=== PATIENT | female | born 1950 | race Caucasian/White ===

== ENCOUNTER → 2018-01-24 07:42 | Outpatient (CLI) | payer MEDICARE, SELFPAY ==
[2018-01-24 11:49] LABS: Absolute Lymphocyte Count 1.14 X10^3/ul (0.83-4.51); Absolute Neutrophil Count 2.4 X10^3/uL (2.0-7.7); Basophil# 0.03 X10^3/uL; Basophil% 0.7 % (0-1); Eosinophil# 0.22 X10^3/uL; Eosinophils% 5.2 % (0-5); Hematocrit 37.4 % (37-47); Lymphocyte # 1.14 X10^3/ul (4.0); Lymphocyte % 26.8 % (19-41); Mean Corp Hgb Conc 32.1 g/gl (32-36); Mean Corpuscular Hgb 29.1 pg (27.0-32.0); Mean Corpuscular Volume 90.8 fL (81-99); Monocyte# 0.42 X10^3/uL; Monocyte% 9.9 % (0-10); Neutrophil # 2.44 X10^3/uL (2.7-7.7); Neutrophil % 57.4 % (47-70); Platelet Count 193 K/mm3 (150-450); RBC Distribution Width CV 14.4 % (11.6-14.6); RBC Distribution Width SD 47.2 fl (35.1-43.9); Red Blood Count 4.12 M/mm3 (4.2-5.4); White Blood Count 4.3 K/mm3 (4.4-11.0)
[2018-01-24 11:51] LABS: POSITIVE COUNT NO; POSITIVE DIFFERENTIAL NO; POSITIVE MORPHOLOGY NO
[2018-01-24 12:04] LABS: AST(SGOT) 25 U/L (15-37); Alanine Aminotransfer ALT/SGPT 22 U/L (13-56); Albumin, Serum 3.4 g/dL (3.2-5.0); Alkaline Phosphatase 68 U/L (45-117); Anion Gap 8 (5-15); BUN 19 mg/dL (7-18); BUN/Creat Ratio 27.8 RATIO (10-20); Calcium,Total 9.2 mg/dL (8.5-10.1); Chloride 103 mmol/L (98-107); Cholesterol 197 mg/dL (200); Creatinine, Serum 0.68 mg/dL (0.55-1.02); EST Glomerular Filtration Rate 91 mL/min (>60); Est Glom Filt Rate - Afr Amer 110 mL/min (>60); Globulin 3.5 g/dL (2.2-4.2); Glucose 85 mg/dL (74-106); High Density Lipoprotein 79 mg/dL; Potassium 3.8 mmol/L (3.5-5.1); Protein, Total 6.9 g/dL (6.4-8.2); Sodium Level 142 mmol/L (136-145); T4 Free Direct 1.13 ng/dL (0.76-1.46); Thyroid Stim Hormone (TSH) 2.33 uIU/mL (0.358-3.74); Triglycerides 47 mg/dL; Very Low Density Lipoprotein 9 mg/dL (5-40)
[2018-01-24 12:06] LABS: Microalbumin,Random Urine 5.6 mg/L (NO RANGE EST.); Microalbumin:Creatinine Ratio 41.7 mg/g CRE (<30 mg/g CRE)
== END ==
PROVIDERS: Family Provider Family Medicine; PCP Family Medicine; Visit Provider Family Medicine
DX: I10 Essential (primary) hypertension (principal); M06.00 Rheumatoid arthritis without rheumatoid factor, unspecified site; M15.9 Polyosteoarthritis, unspecified; M50.30 Other cervical disc degeneration, unspecified cervical region
CPT/HCPCS: 36415; 80053; 80061; 82043; 82570; 84439; 84443; 85025

== ENCOUNTER → 2018-03-02 08:16 | Outpatient (CLI) | payer MEDICARE, SELFPAY | PROVIDERS: Family Provider Family Medicine; PCP Family Medicine; Visit Provider Obstetrics & Gynecology | DX: Z12.31 Encounter for screening mammogram for malignant neoplasm of breast (principal) | CPT/HCPCS: 77063; 77067 ==

== ENCOUNTER → 2018-05-24 09:25 | Outpatient (CLI) | payer MEDICARE, SELFPAY ==
[2018-05-24 12:04] LABS: Absolute Lymphocyte Count 1.22 X10^3/ul (0.83-4.51); Absolute Neutrophil Count 3.3 X10^3/uL (2.0-7.7); Basophil# 0.03 X10^3/uL; Basophil% 0.6 % (0-1); Eosinophil# 0.16 X10^3/uL; Hematocrit 41.7 % (37-47); Hemoglobin 13.1 g/dl (12.0-15.0); Lymphocyte # 1.22 X10^3/ul (4.0); Lymphocyte % 23.2 % (19-41); Mean Corp Hgb Conc 31.4 g/gl (32-36); Mean Corpuscular Volume 92.3 fL (81-99); Mean Platelet Vol. 11.2 fl (6.2-12.0); Monocyte# 0.55 X10^3/uL; Monocyte% 10.5 % (0-10); Neutrophil % 62.7 % (47-70); POSITIVE COUNT NO; POSITIVE DIFFERENTIAL NO; POSITIVE MORPHOLOGY NO; Platelet Count 210 K/mm3 (150-450); RBC Distribution Width CV 13.1 % (11.6-14.6); RBC Distribution Width SD 43.6 fl (35.1-43.9); Red Blood Count 4.52 M/mm3 (4.2-5.4); White Blood Count 5.3 K/mm3 (4.4-11.0)
[2018-05-24 12:41] LABS: AST(SGOT) 23 U/L (15-37); Alanine Aminotransfer ALT/SGPT 26 U/L (13-56); Albumin, Serum 3.6 g/dL (3.2-5.0); Alkaline Phosphatase 71 U/L (45-117); Anion Gap 8 (5-15); BUN 28 mg/dL (7-18); BUN/Creat Ratio 34.2 RATIO (10-20); Calcium,Total 9.9 mg/dL (8.5-10.1); Chloride 99 mmol/L (98-107); Creatinine, Serum 0.82 mg/dL (0.55-1.02); EST Glomerular Filtration Rate 74 mL/min (>60); Est Glom Filt Rate - Afr Amer 90 mL/min (>60); Globulin 3.7 g/dL (2.2-4.2); Glucose 81 mg/dL (74-106); Potassium 3.9 mmol/L (3.5-5.1); Protein, Total 7.3 g/dL (6.4-8.2); Sodium Level 139 mmol/L (136-145)
== END ==
PROVIDERS: Family Provider Family Medicine; PCP Family Medicine; Referring Provider Internal Medicine Rheumatology; Visit Provider Internal Medicine Rheumatology
DX: M06.041 Rheumatoid arthritis without rheumatoid factor, right hand (principal); M50.30 Other cervical disc degeneration, unspecified cervical region; I10 Essential (primary) hypertension; M15.9 Polyosteoarthritis, unspecified
CPT/HCPCS: 36415; 80053; 85025

== ENCOUNTER → 2018-11-18 08:53 | Outpatient (CLI) | payer MEDICARE, SELFPAY ==
[2018-11-18 09:41] LABS: Absolute Lymphocyte Count 1.23 X10^3/ul (0.83-4.51); Absolute Neutrophil Count 2.8 X10^3/uL (2.0-7.7); Basophil# 0.03 X10^3/uL; Basophil% 0.6 % (0-1); Eosinophil# 0.19 X10^3/uL; Hematocrit 38.2 % (37-47); Hemoglobin 12.3 g/dl (12.0-15.0); Lymphocyte # 1.23 X10^3/ul (4.0); Lymphocyte % 26.2 % (19-41); Mean Corp Hgb Conc 32.2 g/gl (32-36); Mean Corpuscular Hgb 28.9 pg (27.0-32.0); Mean Corpuscular Volume 89.7 fL (81-99); Mean Platelet Vol. 11.5 fl (6.2-12.0); Monocyte# 0.49 X10^3/uL; Monocyte% 10.4 % (0-10); Neutrophil # 2.75 X10^3/uL (2.7-7.7); Neutrophil % 58.6 % (47-70); Platelet Count 188 K/mm3 (150-450); RBC Distribution Width CV 13.7 % (11.6-14.6); RBC Distribution Width SD 44.2 fl (35.1-43.9); Red Blood Count 4.26 M/mm3 (4.2-5.4); White Blood Count 4.7 K/mm3 (4.4-11.0)
[2018-11-18 09:42] LABS: POSITIVE COUNT NO; POSITIVE DIFFERENTIAL NO; POSITIVE MORPHOLOGY NO
[2018-11-18 09:50] LABS: ALB/GLOB Ratio 0.9 RATIO (0.9-2.4); AST(SGOT) 24 U/L (15-37); Alanine Aminotransfer ALT/SGPT 21 U/L (13-56); Albumin, Serum 3.4 g/dL (3.2-5.0); Alkaline Phosphatase 78 U/L (45-117); Anion Gap 6 (5-15); BUN 21 mg/dL (7-18); BUN/Creat Ratio 27.1 RATIO (10-20); Calcium,Total 9.6 mg/dL (8.5-10.1); Chloride 105 mmol/L (98-107); Creatinine, Serum 0.78 mg/dL (0.55-1.02); EST Glomerular Filtration Rate 79 mL/min (>60); Est Glom Filt Rate - Afr Amer 95 mL/min (>60); Globulin 3.6 g/dL (2.2-4.2); Glucose 77 mg/dL (74-106); Potassium 3.6 mmol/L (3.5-5.1); Sodium Level 141 mmol/L (136-145)
== END ==
PROVIDERS: Family Provider Family Medicine; PCP Family Medicine; Referring Provider Internal Medicine Rheumatology; Visit Provider Internal Medicine Rheumatology
DX: M06.041 Rheumatoid arthritis without rheumatoid factor, right hand (principal); M15.9 Polyosteoarthritis, unspecified; M50.30 Other cervical disc degeneration, unspecified cervical region; I10 Essential (primary) hypertension
CPT/HCPCS: 36415; 80053; 85025

== ENCOUNTER → 2019-03-08 08:27 | Outpatient (CLI) | payer MEDICARE, SELFPAY ==
--- NOTE | 2019-03-08 08:30 | BI_ITS ---
MAMMOGRAPHY - BILATERAL SCREENING REASON FOR EXAM: Female, 68 years old. Routine annual screening examination. PERTINENT HISTORY: Grandmother with breast cancer. Aunt with breast cancer. TECHNIQUE: Digital bilateral breast adelina (3D mammographic acquisition) in the CC and MLO projections. 2-D mediolateral oblique (MLO) and craniocaudad (CC) views of both breasts were obtained. CAD: Full Field Digital Mammography with Computer Added Detection was performed. COMPARISON: Comparison is made with prior study dated March 02, 2018 and March 01, 2017. FINDINGS: Breast Composition: The breasts are heterogeneously dense, which may obscure small masses. There are no dominant masses or suspicious calcifications. No other significant abnormalities are identified. There has been no significant change since the prior study. BI/SCREENING MAMM (CAD), BILAT IMPRESSION: Stable bilateral screening mammogram. Yearly follow-up mammogram recommended. (A) ASSESSMENT CATEGORY: BIRADS Category 1: Negative. A letter regarding these results will be sent to the patient by the facility within 30 days. Approximately 10% of breast cancers are not detected by mammography. A normal mammogram should not delay biopsy of a clinically suspicious abnormality. [id number] Electronically Signed: Medhat Davidson, at 9:46 EDT , Service support ,
== END ==
PROVIDERS: Family Provider Family Medicine; PCP Family Medicine; Referring Provider Obstetrics & Gynecology; Visit Provider Obstetrics & Gynecology
DX: Z12.31 Encounter for screening mammogram for malignant neoplasm of breast (principal)
CPT/HCPCS: 77067

== ENCOUNTER → 2019-05-18 11:20 | Outpatient (CLI) | payer MEDICARE, SELFPAY ==
[2019-05-18 13:59] LABS: Absolute Lymphocyte Count 1.38 X10^3/uL (0.83-4.51); Absolute Neutrophil Count 3.6 X10^3/uL (2.0-7.7); Basophil# 0.06 X10^3/uL; Basophil% 1.1 % (0-1); Eosinophil# 0.09 X10^3/uL; Eosinophils% 1.6 % (0-5); Hematocrit 43.7 % (37-47); Hemoglobin 14.1 g/dL (12.0-15.0); Lymphocyte # 1.38 X10^3/ul (4.0); Lymphocyte % 24.6 % (19-41); Mean Corp Hgb Conc 32.3 g/dL (32-36); Mean Platelet Vol. 12.4 fl (6.2-12.0); Monocyte# 0.44 X10^3/uL; Monocyte% 7.9 % (0-10); NRBC Flagged by Analyzer 0 % (0-5); Neutrophil # 3.61 X10^3/uL (2.7-7.7); Neutrophil % 64.4 % (47-70); Platelet Count 190 K/mm3 (150-450); RBC Distribution Width CV 13.1 % (11.6-14.6); RBC Distribution Width SD 44.6 fl (35.1-43.9); White Blood Count 5.6 K/mm3 (4.4-11.0)
[2019-05-18 14:34] LABS: ALB/GLOB Ratio 1.1 RATIO (0.9-2.4); AST(SGOT) 31 U/L (15-37); Alanine Aminotransfer ALT/SGPT 26 U/L (13-56); Alkaline Phosphatase 68 U/L (45-117); Anion Gap 6 (5-15); BUN 27 mg/dL (7-18); BUN/Creat Ratio 36.7 RATIO (10-20); Calcium,Total 10.6 mg/dL (8.5-10.1); Chloride 102 mmol/L (98-107); Creatinine, Serum 0.74 mg/dL (0.55-1.02); EST Glomerular Filtration Rate 84 mL/min (>60); Est Glom Filt Rate - Afr Amer 101 mL/min (>60); Globulin 3.6 g/dL (2.2-4.2); Glucose 72 mg/dL (74-106); Potassium 4.1 mmol/L (3.5-5.1); Protein, Total 7.6 g/dL (6.4-8.2); Sodium Level 138 mmol/L (136-145)
== END ==
PROVIDERS: Family Provider Family Medicine; PCP Family Medicine; Referring Provider Internal Medicine Rheumatology; Visit Provider Internal Medicine Rheumatology
DX: M06.041 Rheumatoid arthritis without rheumatoid factor, right hand (principal); M15.9 Polyosteoarthritis, unspecified; M50.30 Other cervical disc degeneration, unspecified cervical region; I10 Essential (primary) hypertension
CPT/HCPCS: 36415; 80053; 85025

== ENCOUNTER → 2019-06-14 07:25 | Outpatient (CLI) | payer MEDICARE, SELFPAY ==
[2019-06-14 10:52] LABS: Anion Gap 6 (5-15); BUN 29 mg/dL (7-18); BUN/Creat Ratio 34.5 RATIO (10-20); Calcium,Total 9.3 mg/dL (8.5-10.1); Chloride 104 mmol/L (98-107); Creatinine, Serum 0.84 mg/dL (0.55-1.02); EST Glomerular Filtration Rate 72 mL/min (>60); Est Glom Filt Rate - Afr Amer 87 mL/min (>60); Glucose 87 mg/dL (74-106); Potassium 3.8 mmol/L (3.5-5.1); Sodium Level 139 mmol/L (136-145)
== END ==
PROVIDERS: Family Provider Family Medicine; PCP Family Medicine; Referring Provider Family Medicine; Visit Provider Family Medicine
DX: E83.52 Hypercalcemia (principal); I10 Essential (primary) hypertension
CPT/HCPCS: 36415; 80048

== ENCOUNTER → 2020-03-11 07:54 | Outpatient (CLI) | payer MEDICARE, SELFPAY ==
--- NOTE | 2020-03-11 07:57 | BI_ITS ---
MAMMOGRAPHY - BILATERAL SCREENING 3-D TOMOSYNTHESIS REASON FOR EXAM: Female, 69 years old. Annual screening mammogram. PERTINENT HISTORY: Family history of breast cancer in grandmother at age 80.. TECHNIQUE: 2-D mammograms and 3-D Tomosynthesis of the breast (s) were performed. CAD was performed. COMPARISON: 03/08/2019, 03/02/2018 FINDINGS: The breast composition is almost entirely fat. Scattered benign calcifications are seen. No dense spiculated masses or suspicious microcalcifications are identified. No architectural distortion is identified. There is no skin thickening or retraction. There has been no significant change since the prior study. BI/SCREEN MAMM (CAD) W/SARA BILAT IMPRESSION: No mammographic signs of malignancy. Routine yearly mammograms recommended. ASSESSMENT CATEGORY: BIRADS Category 2: Benign. A letter regarding these results will be sent to the patient by the facility within 30 days. FOLLOW UP RECOMMENDATION: Yearly follow up mammogram recommended. (A) Approximately 10% of breast cancers are not detected by mammography. A normal mammogram should not delay biopsy of a clinically suspicious abnormality. Electronically Signed: Petey Kim MD at 17:25 EDT , Service support ,
== END ==
PROVIDERS: PCP Family Medicine; Referring Provider Student in an Organized Health Care Education/Training Program; Visit Provider Student in an Organized Health Care Education/Training Program
DX: Z12.31 Encounter for screening mammogram for malignant neoplasm of breast (principal); Z80.3 Family history of malignant neoplasm of breast
CPT/HCPCS: 77063; 77067

== ENCOUNTER → 2020-05-19 08:06 | Outpatient (CLI) | payer MEDICARE, SELFPAY ==
[2020-05-19 10:41] LABS: Absolute Lymphocyte Count 1.14 X10^3/uL (0.83-4.51); Absolute Neutrophil Count 4.2 X10^3/uL (2.0-7.7); Basophil# 0.04 X10^3/uL; Basophil% 0.7 % (0-1); Eosinophil# 0.04 X10^3/uL; Eosinophils% 0.7 % (0-5); Hematocrit 44.3 % (37-47); Hemoglobin 14.1 g/dL (12.0-15.0); Lymphocyte # 1.14 X10^3/ul (4.0); Lymphocyte % 19.6 % (19-41); Mean Corp Hgb Conc 31.8 g/dL (32-36); Mean Corpuscular Hgb 30.2 pg (27.0-32.0); Mean Corpuscular Volume 94.9 fL (81-99); Monocyte# 0.44 X10^3/uL; Monocyte% 7.5 % (0-10); NRBC Flagged by Analyzer 0 % (0-5); Neutrophil # 4.16 X10^3/uL (2.7-7.7); Neutrophil % 71.3 % (47-70); Platelet Count 212 K/mm3 (150-450); RBC Distribution Width CV 12.4 % (11.6-14.6); RBC Distribution Width SD 43.7 fl (35.1-43.9); Red Blood Count 4.67 M/mm3 (4.2-5.4); White Blood Count 5.8 K/mm3 (4.4-11.0)
[2020-05-19 10:58] LABS: ALB/GLOB Ratio 1.1 RATIO (0.9-2.4); AST(SGOT) 25 U/L (15-37); Alanine Aminotransfer ALT/SGPT 28 U/L (13-56); Alkaline Phosphatase 73 U/L (45-117); Anion Gap 6 (5-15); BUN 22 mg/dL (7-18); BUN/Creat Ratio 23.2 RATIO (10-20); Calcium,Total 9.6 mg/dL (8.5-10.1); Chloride 104 mmol/L (98-107); Creatinine, Serum 0.95 mg/dL (0.55-1.02); EST Glomerular Filtration Rate 62 mL/min (>60); Est Glom Filt Rate - Afr Amer 75 mL/min (>60); Globulin 3.7 g/dL (2.2-4.2); Glucose 121 mg/dL (74-106); Protein, Total 7.7 g/dL (6.4-8.2); Sodium Level 141 mmol/L (136-145)
== END ==
PROVIDERS: PCP Family Medicine; Referring Provider Internal Medicine Rheumatology; Visit Provider Internal Medicine Rheumatology
DX: M06.00 Rheumatoid arthritis without rheumatoid factor, unspecified site (principal); M50.30 Other cervical disc degeneration, unspecified cervical region; M15.9 Polyosteoarthritis, unspecified; I10 Essential (primary) hypertension
CPT/HCPCS: 36415; 80053; 85025

== ENCOUNTER → 2020-09-15 15:07 | Outpatient (CLI) | payer MEDICARE, SELFPAY ==
[2020-09-15 17:36] LABS: Anion Gap 6 (5-15); BUN 28 mg/dL (7-18); BUN/Creat Ratio 25.7 RATIO (10-20); Calcium,Total 9.2 mg/dL (8.5-10.1); Chloride 107 mmol/L (98-107); Creatinine, Serum 1.09 mg/dL (0.55-1.02); EST Glomerular Filtration Rate 53 mL/min (>60); Est Glom Filt Rate - Afr Amer 64 mL/min (>60); Glucose 111 mg/dL (74-106); Potassium 3.9 mmol/L (3.5-5.1); Sodium Level 141 mmol/L (136-145)
== END ==
PROVIDERS: PCP Family Medicine; Visit Provider Family Medicine
DX: I10 Essential (primary) hypertension (principal)
CPT/HCPCS: 36415; 80048

== ENCOUNTER → 2020-10-10 15:34 | Outpatient (CLI) | payer MEDICARE, SELFPAY ==
[2020-10-10 17:50] LABS: CRP < 2.90 mg/L (0.0-3.0)
[2020-10-13 16:08] LABS: Endomysial Antibody IgA Negative (Negative)
[2020-10-13 18:38] LABS: Immunoglobulin A 221 mg/dL (87-352); t-Transglutaminase IgA <2 U/mL (0-3)
== END ==
PROVIDERS: PCP Family Medicine; Referring Provider Internal Medicine Gastroenterology; Visit Provider Internal Medicine Gastroenterology
DX: R19.4 Change in bowel habit (principal)
CPT/HCPCS: 36415; 82784; 83516; 86140; 86255

== ENCOUNTER → 2020-11-14 09:30 | Outpatient (CLI) | payer MEDICARE, SELFPAY ==
[2020-11-14 12:47] LABS: Absolute Lymphocyte Count 1.54 X10^3/uL (0.83-4.51); Basophil# 0.03 X10^3/uL; Basophil% 0.6 % (0-1); Eosinophil# 0.12 X10^3/uL; Eosinophils% 2.3 % (0-5); Hematocrit 38.2 % (37-47); Hemoglobin 12.2 g/dL (12.0-15.0); Lymphocyte # 1.54 X10^3/ul (0.83-4.51); Lymphocyte % 29.4 % (19-41); Mean Corp Hgb Conc 31.9 g/dL (32-36); Mean Corpuscular Hgb 31.2 pg (27.0-32.0); Mean Corpuscular Volume 97.7 fL (81-99); Mean Platelet Vol. 12.4 fl (6.2-12.0); Monocyte# 0.52 X10^3/uL; Monocyte% 9.9 % (0-10); NRBC Flagged by Analyzer 0 % (0-5); Neutrophil % 57.4 % (47-70); Platelet Count 207 K/mm3 (150-450); RBC Distribution Width CV 13.1 % (11.6-14.6); RBC Distribution Width SD 46.6 fl (35.1-43.9); Red Blood Count 3.91 M/mm3 (4.2-5.4); White Blood Count 5.2 K/mm3 (4.4-11.0)
[2020-11-14 13:08] LABS: ALB/GLOB Ratio 1.2 RATIO (0.9-2.4); AST(SGOT) 24 U/L (15-37); Alanine Aminotransfer ALT/SGPT 24 U/L (13-56); Albumin, Serum 3.7 g/dL (3.2-5.0); Alkaline Phosphatase 66 U/L (45-117); Anion Gap 5 (5-15); BUN 26 mg/dL (7-18); BUN/Creat Ratio 26.4 RATIO (10-20); Calcium,Total 9.4 mg/dL (8.5-10.1); Chloride 106 mmol/L (98-107); Creatinine, Serum 0.98 mg/dL (0.55-1.02); EST Glomerular Filtration Rate 59 mL/min (>60); Est Glom Filt Rate - Afr Amer 72 mL/min (>60); Globulin 3.2 g/dL (2.2-4.2); Glucose 79 mg/dL (74-106); Potassium 3.8 mmol/L (3.5-5.1); Protein, Total 6.9 g/dL (6.4-8.2); Sodium Level 142 mmol/L (136-145)
== END ==
PROVIDERS: PCP Family Medicine; Referring Provider Internal Medicine Rheumatology; Visit Provider Internal Medicine Rheumatology
DX: M06.00 Rheumatoid arthritis without rheumatoid factor, unspecified site (principal); M50.30 Other cervical disc degeneration, unspecified cervical region; I10 Essential (primary) hypertension
CPT/HCPCS: 36415; 80053; 85025

== ENCOUNTER → 2021-03-26 12:17 | Outpatient (CLI) | payer MEDICARE, SELFPAY ==
--- NOTE | 2021-03-26 12:19 | BI_ITS ---
MAMMOGRAPHY - BILATERAL SCREENING 3-D TOMOSYNTHESIS REASON FOR EXAM: Female, 70 years old. Screening PERTINENT HISTORY: No significant family history. TECHNIQUE: 2-D mammograms and 3-D Tomosynthesis of the breast (s) were performed. CAD was performed. COMPARISON: 03/11/2020 FINDINGS: The breast composition is heterogeneously dense that can obscure small breast masses. Scattered benign calcifications are seen. No dense spiculated masses or suspicious microcalcifications are identified. No architectural distortion is identified. There is no skin thickening or retraction. There has been no significant change since the prior study. BI/SCRN MAMM (CAD)W/SARA BILAT IMPRESSION: No mammographic signs of malignancy. Routine yearly mammograms recommended. ASSESSMENT CATEGORY: BIRADS Category 1: Negative. A letter regarding these results will be sent to the patient by the facility within 30 days. FOLLOW UP RECOMMENDATION: Yearly follow up mammogram recommended. (A) Approximately 10% of breast cancers are not detected by mammography. A normal mammogram should not delay biopsy of a clinically suspicious abnormality. Electronically Signed: Edmund Grace MD at 13:48 EDT Tel , Service support ,
== END ==
PROVIDERS: PCP Family Medicine; Referring Provider Student in an Organized Health Care Education/Training Program; Visit Provider Student in an Organized Health Care Education/Training Program
DX: Z12.31 Encounter for screening mammogram for malignant neoplasm of breast (principal)
CPT/HCPCS: 77063; 77067

== ENCOUNTER → 2021-05-06 09:06 | Outpatient (CLI) | payer MEDICARE, SELFPAY ==
[2021-05-06 10:10] LABS: Absolute Lymphocyte Count 0.97 X10^3/uL (0.83-4.51); Absolute Neutrophil Count 2.7 X10^3/uL (2.0-7.7); Basophil# 0.03 X10^3/uL; Basophil% 0.7 % (0-1); Eosinophil# 0.23 X10^3/uL; Eosinophils% 5.3 % (0-5); Hematocrit 36.3 % (37-47); Lymphocyte # 0.97 X10^3/ul (0.83-4.51); Lymphocyte % 22.2 % (19-41); Mean Corp Hgb Conc 33.1 g/dL (32-36); Mean Corpuscular Hgb 31.1 pg (27.0-32.0); Mean Platelet Vol. 11.6 fl (6.2-12.0); Monocyte# 0.44 X10^3/uL; Monocyte% 10.1 % (0-10); NRBC Flagged by Analyzer 0 % (0-5); Neutrophil # 2.67 X10^3/uL (2.7-7.7); Neutrophil % 61.2 % (47-70); Platelet Count 163 K/mm3 (150-450); RBC Distribution Width CV 12.4 % (11.6-14.6); RBC Distribution Width SD 42.9 fl (35.1-43.9); Red Blood Count 3.86 M/mm3 (4.2-5.4); White Blood Count 4.4 K/mm3 (4.4-11.0)
[2021-05-06 10:50] LABS: AST(SGOT) 24 U/L (15-37); Alanine Aminotransfer ALT/SGPT 23 U/L (13-56); Albumin, Serum 3.5 g/dL (3.2-5.0); Alkaline Phosphatase 72 U/L (45-117); Anion Gap 8 (5-15); BUN 21 mg/dL (7-18); BUN/Creat Ratio 20.8 RATIO (10-20); Calcium,Total 9.5 mg/dL (8.5-10.1); Chloride 105 mmol/L (98-107); Creatinine, Serum 1.01 mg/dL (0.55-1.02); EST Glomerular Filtration Rate 58 mL/min (>60); Est Glom Filt Rate - Afr Amer 70 mL/min (>60); Globulin 3.6 g/dL (2.2-4.2); Glucose 88 mg/dL (74-106); Potassium 3.8 mmol/L (3.5-5.1); Protein, Total 7.1 g/dL (6.4-8.2); Sodium Level 142 mmol/L (136-145)
== END ==
PROVIDERS: PCP Family Medicine; Referring Provider Internal Medicine Rheumatology; Visit Provider Internal Medicine Rheumatology
DX: M06.00 Rheumatoid arthritis without rheumatoid factor, unspecified site (principal); Z79.899 Other long term (current) drug therapy; M50.30 Other cervical disc degeneration, unspecified cervical region; M15.9 Polyosteoarthritis, unspecified; I10 Essential (primary) hypertension
CPT/HCPCS: 36415; 80053; 85025

== ENCOUNTER 2021-11-09 10:02 | Outpatient (CLI) | payer MEDICARE, SELFPAY ==
[2021-11-09 11:12] LABS: Absolute Lymphocyte Count 1.29 X10^3/uL (0.83-4.51); Absolute Neutrophil Count 3.8 X10^3/uL (2.0-7.7); Basophil# 0.04 X10^3/uL; Basophil% 0.7 % (0-1); Eosinophil# 0.07 X10^3/uL; Eosinophils% 1.2 % (0-5); Hematocrit 36.1 % (37-47); Hemoglobin 11.8 g/dL (12.0-15.0); Lymphocyte # 1.29 X10^3/ul (0.83-4.51); Lymphocyte % 22.8 % (19-41); Mean Corp Hgb Conc 32.7 g/dL (32-36); Mean Corpuscular Hgb 31.1 pg (27.0-32.0); Mean Corpuscular Volume 95.3 fL (81-99); Mean Platelet Vol. 12.4 fl (6.2-12.0); Monocyte# 0.42 X10^3/uL; Monocyte% 7.4 % (0-10); NRBC Flagged by Analyzer 0 % (0-5); Neutrophil # 3.82 X10^3/uL (2.7-7.7); Neutrophil % 67.5 % (47-70); Platelet Count 164 K/mm3 (150-450); RBC Distribution Width CV 12.6 % (11.6-14.6); RBC Distribution Width SD 43.9 fl (35.1-43.9); Red Blood Count 3.79 M/mm3 (4.2-5.4); White Blood Count 5.7 K/mm3 (4.4-11.0)
[2021-11-09 11:33] LABS: ALB/GLOB Ratio 1.2 RATIO (0.9-2.4); AST(SGOT) 40 U/L (15-37); Alanine Aminotransfer ALT/SGPT 49 U/L (13-56); Albumin, Serum 3.9 g/dL (3.2-5.0); Alkaline Phosphatase 68 U/L (45-117); Anion Gap 5 (5-15); BUN 28 mg/dL (7-18); BUN/Creat Ratio 25.5 RATIO (10-20); Calcium,Total 9.3 mg/dL (8.5-10.1); Chloride 109 mmol/L (98-107); EST Glomerular Filtration Rate 52 mL/min (>60); Est Glom Filt Rate - Afr Amer 63 mL/min (>60); Globulin 3.2 g/dL (2.2-4.2); Glucose 101 mg/dL (74-106); Potassium 4.4 mmol/L (3.5-5.1); Protein, Total 7.1 g/dL (6.4-8.2); Sodium Level 142 mmol/L (136-145)
== END 2021-11-09 23:59 | disposition home or self-care (01) ==
LOC: LAB 10:03
PROVIDERS: PCP Family Medicine; Visit Provider Internal Medicine Rheumatology
DX: M06.00 Rheumatoid arthritis without rheumatoid factor, unspecified site (principal); M15.9 Polyosteoarthritis, unspecified; M50.30 Other cervical disc degeneration, unspecified cervical region; I10 Essential (primary) hypertension; Z79.899 Other long term (current) drug therapy
CPT/HCPCS: 36415; 80053; 85025

== ENCOUNTER → 2022-05-12 | Outpatient (CLI) | payer MEDICARE, SELFPAY ==
[2022-05-12 08:51] LABS: Absolute Lymphocyte Count 1.53 X10^3/uL (0.83-4.51); Absolute Neutrophil Count 2.1 X10^3/uL (2.0-7.7); Basophil# 0.05 X10^3/uL; Basophil% 1.2 % (0-1); Eosinophil# 0.14 X10^3/uL; Eosinophils% 3.3 % (0-5); Hematocrit 36.7 % (37-47); Hemoglobin 12.4 g/dL (12.0-15.0); Lymphocyte # 1.53 X10^3/ul (0.83-4.51); Lymphocyte % 35.6 % (19-41); Mean Corp Hgb Conc 33.8 g/dL (32-36); Mean Corpuscular Hgb 32.1 pg (27.0-32.0); Mean Corpuscular Volume 95.1 fL (81-99); Mean Platelet Vol. 11.2 fl (6.2-12.0); Monocyte# 0.44 X10^3/uL; Monocyte% 10.2 % (0-10); NRBC Flagged by Analyzer 0 % (0-5); Neutrophil # 2.13 X10^3/uL (2.7-7.7); Neutrophil % 49.5 % (47-70); Platelet Count 174 K/mm3 (150-450); RBC Distribution Width CV 12.3 % (11.6-14.6); RBC Distribution Width SD 42.8 fl (35.1-43.9); Red Blood Count 3.86 M/mm3 (4.2-5.4); White Blood Count 4.3 K/mm3 (4.4-11.0)
[2022-05-12 09:26] LABS: ALB/GLOB Ratio 1.2 RATIO (0.9-2.4); AST(SGOT) 27 U/L (15-37); Alanine Aminotransfer ALT/SGPT 26 U/L (13-56); Albumin, Serum 3.8 g/dL (3.2-5.0); Alkaline Phosphatase 61 U/L (45-117); Anion Gap 5 (5-15); BUN 29 mg/dL (7-18); BUN/Creat Ratio 22.5 RATIO (10-20); Calcium,Total 9.3 mg/dL (8.5-10.1); Chloride 104 mmol/L (98-107); Creatinine, Serum 1.29 mg/dL (0.55-1.02); EST Glomerular Filtration Rate 43 mL/min (>60); Est Glom Filt Rate - Afr Amer 52 mL/min (>60); Globulin 3.3 g/dL (2.2-4.2); Glucose 91 mg/dL (74-106); Potassium 4.2 mmol/L (3.5-5.1); Protein, Total 7.1 g/dL (6.4-8.2); Sodium Level 139 mmol/L (136-145)
== END | disposition home or self-care (01) ==
LOC: LAB 08:30
PROVIDERS: PCP Family Medicine; Referring Provider Internal Medicine Rheumatology; Visit Provider Internal Medicine Rheumatology
DX: M06.00 Rheumatoid arthritis without rheumatoid factor, unspecified site (principal); Z79.899 Other long term (current) drug therapy; M15.9 Polyosteoarthritis, unspecified; M50.30 Other cervical disc degeneration, unspecified cervical region; I10 Essential (primary) hypertension
CPT/HCPCS: 36415; 80053; 85025

== ENCOUNTER → 2022-05-25 | Outpatient (CLI) | payer MEDICARE, SELFPAY ==
--- NOTE | 2022-05-25 12:14 | BI_ITS ---
MAMMOGRAPHY - BILATERAL SCREENING REASON FOR EXAM: Female, 71 years old. Routine annual screening examination. PERTINENT HISTORY: Grandmother with breast cancer. Aunt with breast cancer. TECHNIQUE: Digital bilateral breast sara (3D mammographic acquisition) in the CC and MLO projections. 2-D mediolateral oblique (MLO) and craniocaudad (CC) views of both breasts were obtained. CAD: Full Field Digital Mammography with Computer Added Detection was performed. COMPARISON: Comparison is made with prior study of 03/26/2021 and 03/11/2020. FINDINGS: Breast Composition: The breasts are heterogeneously dense, which may obscure small masses. There are no dominant masses or suspicious calcifications. No other significant abnormalities are identified. There has been no significant change since the prior study. BI/SCRN MAMM (CAD)W/SARA BILAT IMPRESSION: Stable bilateral screening mammogram. Yearly follow-up mammogram recommended. (A) ASSESSMENT CATEGORY: BIRADS Category 1: Negative. A letter regarding these results will be sent to the patient by the facility within 30 days. Approximately 10% of breast cancers are not detected by mammography. A normal mammogram should not delay biopsy of a clinically suspicious abnormality. [id number] Electronically Signed: Medhat Davidson MD at 13:37 EDT ,
--- NOTE | 2022-05-25 12:23 | BD_ITS ---
STUDY: DUAL ENERGY X-RAY ABSORPTIOMETRY / DXA REASON FOR EXAM: Female, 71 years old. [id number] TECHNIQUE: Bone Mineral Density (BMD) measurements of lumbar spine and bilateral hips were obtained. COMPARISON: Comparison is made with prior study 03/01/2017. FINDINGS: Lumbar Spine (L1-L4): g/cm2 (0.886) / T-score (-1.5) / Z-score (0.7) Findings are suggestive of osteopenia with a low fracture risk. Left Femur Total: g/cm2 (0.742) / T-score (-1.6) / Z-score (-0.1) Left Femoral Neck: g/cm2 (0.671) / T-score (-1.6) / Z-score (0.3) Right Femur Total: g/cm2 (0.722) / T-score (-1.8) / Z-score (-0.2) Right Femoral Neck: g/cm2 (0.652) / T-score (-1.8) / Z-score (0.1) The T-Scores on the most recent prior examination were: Lumbar Spine (L1-L4): There has been worsening of bone density since the previous examination. Left Femur Total: which represents a worsening of 9.5%. Right Femur Total: which represents a worsening of 11.6%. BD/Dexa Bone Density Study IMPRESSION: The patient is considered osteopenic as outlined below according to World [employer]ises Organization (WHO) criteria with a moderate fracture risk. There has been worsening of bone density since the previous examination. Reference Information: The T-score is the number of standard deviations above or below the standard which is normal for young adults at their peak bone mineral density. The World Health Organization (WHO) interprets the T-scores as follows: Above -1 Normal bone density Between -1 and -2.5 Osteopenia Equal to / or below -2.5 Osteoporosis As a practical clinical guideline, osteopenia may be graded as follows: Mild -1 through -1.5 Moderate -1.6 through -2.0 Severe -2.1 through -2.4 The Z-score is the number of standard deviations above or below age-matched controls. A Z-score of less than -1.5 would be considered abnormal. References: 1. NIH Osteoporosis and Related Bone Diseases www osteo.org 2. International Society for Clinical Densitometry www iscd.org 3. National Osteoporosis Foundation www nof.org Electronically Signed: Medhat Davidson MD at 9:25 EDT ,
== END | disposition home or self-care (01) ==
LOC: OPBD 12:12
PROVIDERS: PCP Family Medicine; Visit Provider Student in an Organized Health Care Education/Training Program
DX: Z12.31 Encounter for screening mammogram for malignant neoplasm of breast (principal); Z80.3 Family history of malignant neoplasm of breast; Z01.419 Encounter for gynecological examination (general) (routine) without abnormal findings; Z78.0 Asymptomatic menopausal state
CPT/HCPCS: 77063; 77067; 77080

== ENCOUNTER → 2022-10-15 | Outpatient (CLI) | payer MEDICARE, SELFPAY ==
--- NOTE | 2022-10-15 07:48 | CT_ITS ---
STUDY: CT ABDOMEN AND PELVIS WITH CONTRAST REASON FOR EXAM: Female, 71 years old. LLQ PAIN. RADIATION DOSAGE (If Supplied By Facility): CTDIvol = ( 10.37 ) mGy, DLP = ( 491.29 ) mGycm TECHNIQUE: Transaxial images were obtained from the dome of the diaphragm to the symphysis pubis with oral contrast. Oral and amp; IV Readi-CAT and amp; 100mL Isovue-300 was administered. Sagittal and coronal images were reconstructed. Individualized dose optimization techniques were used for this CT. COMPARISON: None. FINDINGS: Minimal increased markings in the posterior aspect of the lingular segment of the left upper lobe abutting the left major fissure suggestive of scarring. The visualized portions of the heart are within normal limits. There is a 1.1 cm x 1.1 cm hypodense nodule in the anterior aspect of the left lobe of liver with anterior enhancement suggestive of a small hemangioma. A similar appearing hypodense nodule in the posterior medial aspect of the right lobe of the liver superiorly measures 1.3 cm x 1 cm. Normal gallbladder and extrahepatic biliary system. Normal spleen. Normal pancreas. Normal bilateral adrenal glands. Parapelvic cysts are seen in both kidneys. Normal visualized stomach. Normal small intestine. There are multiple colonic diverticula consistent with diverticulosis. The appendix is visualized and appears normal. Normal abdominal aorta. Normal inferior vena cava. Normal retroperitoneum. Normal urinary bladder. There is a 2.7 cm x 2 cm complex septated cyst in the left adnexa. Correlation with ultrasound is recommended. Normal abdominal wall. There are mild degenerative changes of the visualized lumbar spine. Increased lumbar lordosis. Minimal anterolisthesis of L4 on L5 and disc space narrowing. CT/Abdomen/Pelvis WITH Contrast IMPRESSION: Small hypodensities are seen in the left and right lobe liver as described suggestive of a hemangioma. 2.7 cm x 2 cm complex septated cyst in the left adnexa. Correlation with ultrasound is recommended for further evaluation. Electronically Signed: Medhat Davidson MD at 12:04 EDT ,
[2022-10-15 08:21] LABS: CREATININE FINGERSTICK 1.4 mg/dL (0.55-1.02)
== END | disposition home or self-care (01) ==
PROVIDERS: PCP Family Medicine; Referring Provider Family Medicine; Visit Provider Family Medicine
DX: N83.8 Other noninflammatory disorders of ovary, fallopian tube and broad ligament (principal); R10.32 Left lower quadrant pain
CPT/HCPCS: 74177; Q9967

== ENCOUNTER → 2022-10-20 | Outpatient (CLI) | payer MEDICARE, SELFPAY ==
--- NOTE | 2022-10-20 09:23 | US_ITS ---
STUDY: ULTRASOUND OF THE FEMALE PELVIS - COMPLETE REASON FOR EXAM: Female, [address] - LEFT CYST TECHNIQUE: Endovaginal. Transvaginal US was obtained to better visualized the ovaries. COMPARISON: ct 10.15.22. FINDINGS: The uterus is anteverted and is in a midline position. The uterus measures 5.7x4.3 cm. Normal uterine cervix. The endometrium measures 6 mm in thickness, and is hyperechoic. There is cytic demonstrated endometrial lesions. There are echogenic foci of the uterus. I.U.D. - The patient does not have an I.U.D. There is nonvisualization of the right ovary due to overlying bowel gas. The left ovary is visualized. The left ovary measures 2.4x2.5 cm. cyst is 17mm. There is no visualized left adnexal mass or complex lesion. There is normal arterial and normal venous vascularity. There is no fluid in the cul-de-sac. Unremarkable urinary bladder. US/Transvaginal Non- IMPRESSION: Possible fibroids Cystic lesions of the endometrium. There is also endometrial thickening. This is abnormal for the patient''s age if she is postmenopausal. Direct visualization is recommended to exclude an underlying mass. Electronically Signed: Víctor Guallpa MD at 21:19 EDT ,
== END | disposition home or self-care (01) ==
PROVIDERS: PCP Family Medicine; Referring Provider Family Medicine; Visit Provider Family Medicine
DX: N83.202 Unspecified ovarian cyst, left side (principal)
CPT/HCPCS: 76830

== ENCOUNTER → 2022-11-02 | Outpatient (CLI) | payer MEDICARE, SELFPAY ==
[2022-11-02 12:16] LABS: Absolute Lymphocyte Count 1.25 X10^3/uL (0.83-4.51); Absolute Neutrophil Count 3.2 X10^3/uL (2.0-7.7); Basophil# 0.07 X10^3/uL; Basophil% 1.4 % (0-1); Eosinophil# 0.23 X10^3/uL; Eosinophils% 4.5 % (0-5); Hematocrit 36.3 % (37-47); Hemoglobin 11.7 g/dL (12.0-15.0); Lymphocyte # 1.25 X10^3/ul (0.83-4.51); Lymphocyte % 24.2 % (19-41); Mean Corp Hgb Conc 32.2 g/dL (32-36); Mean Corpuscular Hgb 31.5 pg (27.0-32.0); Mean Corpuscular Volume 97.6 fL (81-99); Mean Platelet Vol. 11.7 fl (6.2-12.0); Monocyte# 0.45 X10^3/uL; Monocyte% 8.7 % (0-10); NRBC Flagged by Analyzer 0 % (0-5); Neutrophil # 3.15 X10^3/uL (2.7-7.7); Platelet Count 183 K/mm3 (150-450); RBC Distribution Width CV 12.6 % (11.6-14.6); Red Blood Count 3.72 M/mm3 (4.2-5.4); White Blood Count 5.2 K/mm3 (4.4-11.0)
[2022-11-02 12:47] LABS: ALB/GLOB Ratio 1.2 RATIO (0.9-2.4); AST(SGOT) 45 U/L (15-37); Alanine Aminotransfer ALT/SGPT 55 U/L (13-56); Albumin, Serum 3.9 g/dL (3.2-5.0); Alkaline Phosphatase 60 U/L (45-117); Anion Gap 6 (5-15); BUN 29 mg/dL (7-18); BUN/Creat Ratio 25.4 RATIO (10-20); Calcium,Total 9.6 mg/dL (8.5-10.1); Chloride 107 mmol/L (98-107); Creatinine, Serum 1.14 mg/dL (0.55-1.02); EST Glomerular Filtration Rate 50 mL/min (>60); Est Glom Filt Rate - Afr Amer 60 mL/min (>60); Globulin 3.3 g/dL (2.2-4.2); Glucose 100 mg/dL (74-106); Potassium 4.1 mmol/L (3.5-5.1); Protein, Total 7.2 g/dL (6.4-8.2); Sodium Level 139 mmol/L (136-145)
== END | disposition home or self-care (01) ==
LOC: LAB 11:40
PROVIDERS: PCP Family Medicine; Referring Provider Internal Medicine Rheumatology; Visit Provider Internal Medicine Rheumatology
DX: M06.00 Rheumatoid arthritis without rheumatoid factor, unspecified site (principal); Z79.899 Other long term (current) drug therapy; M15.9 Polyosteoarthritis, unspecified; M50.30 Other cervical disc degeneration, unspecified cervical region; I10 Essential (primary) hypertension
CPT/HCPCS: 36415; 80053; 85025

== ENCOUNTER 2022-12-02 05:01 | Emergency (ER) | payer MEDICARE, SELFPAY ==
[2022-12-02 05:02] VITALS: BP 177/82; PULSE 99; RESP 18; TEMP 36.9; O2SAT 99; BMI 22.4
--- NOTE | 2022-12-02 05:02 | RAD_ITS ---
EXAM: XR CHEST, 2 VIEWS CLINICAL INDICATION: Hiccups, shortness of breath TECHNIQUE: Frontal and lateral views of the chest. COMPARISON: No relevant prior studies available. FINDINGS: LUNGS AND PLEURAL SPACES: Mild pulmonary hyperinflation. No infiltrate or effusion. No pneumothorax. HEART: Unremarkable. Cardiac silhouette not enlarged. MEDIASTINUM: Central airways and mediastinal contour are unremarkable. BONES/JOINTS: Unremarkable. SOFT TISSUES: Unremarkable. RAD/Chest PA and Lateral IMPRESSION: No acute intrathoracic abnormality. Electronically Signed: Ethel Zazueta MD at 7:05 EDT ,
--- NOTE | 2022-12-02 05:04 | EDS_ITS ---
HPI <Dr. Gabriel Mcfarland MD - Last Filed: 12/14/22 09:45> History of Present Illness Chief Complaint: Abd Pain Detail of Chief Complaint: Intermittent right upper quadrant pain, hiccups and back pain Informant: patient Onset/Context/Timing Onset: Weeks (2 to 3 weeks) Context: Sudden Onset Timing: Intermittent Quality: Pain Location: Right upper quadrant epigastric with radiation to the back Current Severity: Mild Maximum Severity: Moderate Worsened by: Nothing specific Relieved by: Nothing Associated Symptoms Associated Symptoms: Discomfort with breathing Narrative Narrative: Patient is a 71-year-old woman with history of hypertension and rheumatoid arthritis on hydroxychloroquine who presents with intermittent pain that is localized to the right upper quadrant abrasion to her back. She denies fever, chills night sweats. She denies history of VTE, leg pain, swelling discoloration. She has no known history of cholelithiasis in her family history cholelithiasis. She does report hiccups and pain at times with deep breathing. She denies dyspnea exertion, orthopnea or PND. She denies sour eructation. She denies change in color, consistency or caliber of her stool. She does admit to 2 glasses of wine per month. She denies history of renal ureterolithiasis. She denies dysuria, frequency, urgency or hematuria. She denies upper respiratory tract infectious symptoms. Prior similar symptoms: No Recent Illness/Hospitalization: No PFSH <Dr. Gabriel Mcfarland MD - Last Filed: 12/14/22 09:45> PFS Medical History Hypertension Rheumatoid arthritis Home Medications Triamterene/Hydrochlorothiazid [Triamterene-Hctz 37.5-25 Mg Tb] 1 tab PO DAILY 03/03/16 [History Last Taken Unknown] hydroxychloroquine 200 mg tablet 200 mg PO BIDCM 11/02/22 [History Last Taken Unknown] lisinopril 10 mg tablet 10 mg PO DAILY 11/02/22 [History Last Taken Unknown] Allergy/AdvReac Type Severity Reaction Status Date / Time Penicillins Allergy Unknown Verified 12/02/22 05:05 Family History Father Hypertension Heart disease Grandmother Breast cancer Aunt Breast cancer Mother Colon cancer Surgical History H/O tubal ligation Social History adopted: No household members: spouse number of children: 2 current occupational status: retired current occupational exposures/hazards: No Smoking Status: Never smoker ROS <Dr. Gabriel Mcfarland MD - Last Filed: 12/14/22 09:45> ROS ED Constitutional Constitutional ED: Denies chills, fever(s), subjective, sweats or weight loss Eyes Eyes: Denies blurry vision or change in vision ENT ENT ED: Denies ear pain, rhinorrhea or sore throat Cardiovascular Cardiovascular: Denies chest pain, orthopnea, palpitations, paroxysmal nocturnal dyspnea or racing heartbeat Respiratory/Chest Respiratory/Chest: Reports dyspnea and other Details: Pickups and occasional pleuritic pain ; Denies cough, dyspnea on exertion, orthopnea, paroxysmal nocturnal dyspnea or sputum Gastrointestinal Gastrointestinal: Reports abdominal pain; Denies constipation, diarrhea, melena or vomiting Genitourinary Genitourinary ED: Denies dysuria or urinary frequency Musculoskeletal Musculoskeletal: Reports back pain and other Details: Back pain is intrascapular ; Denies arthralgias, myalgias or neck pain Integumentary Denies rash Neurologic Neurologic: Denies headache(s), paresthesias or weakness Endocrine Endocrinology: Denies cold intolerance or heat intolerance Hematologic/Lymphatic Hematologic/Lymphatic: Reports systems reviewed and no addt'l complaints, except as documented EXAM <Dr. Gabriel Mcfarland MD - Last Filed: 12/14/22 09:45> Physical Exam Const Vital Signs: 12/02/22 05:02 12/02/22 08:34 Temperature 98.4 F Temperature Source Oral Pulse Rate 99 72 Respiratory Rate 18 14 Blood Pressure 177/82 H 154/55 H Blood Pressure Mean 113 88 Pulse Ox 99 99 Oxygen Delivery Method Room Air Room Air Positive well nourished and well developed Constitutional Narrative: Patient does appear uncomfortable. General Appearance ED: well developed; Negative for cyanotic, diaphoretic, NAD or pallor HEENT Reports moist mucous membranes HEENT Narrative: Head is atraumatic normocephalic. Ears are normal. Nares are patent. Posterior pharynx is normal. Eyes PERRL and EOMs intact bilaterally General Eye ED: Negative for pale conjunctiva or scleral icterus Neck no lymphadenopathy, supple and no JVD Resp normal respiratory effort and clear to auscultation bilaterally Cardio regular rate, regular rhythm, S1 normal heart sound, S2 normal heart sound and no murmurs GI non-distended and no masses; Negative for non-tender or hepatosplenomegaly Auscultation: hypoactive bowel sounds Palpation: soft and tender epigastric, RUQ and Meredith's sign (Meredith sign is equivocal.) Back/Spine General Back: CVA tenderness right Extremity normal to inspection General Extremety ED: Negative for edema or tenderness General Extremity: Negative for edema Neuro oriented x3, CN's II-XII intact bilaterally and no sensory deficits noted Sensorium / Orientation: alert Psych mental status grossly normal Skin no rashes or lesions noted, no wounds and skin turgor normal General Skin Exam: Negative for jaundice or pallor <Dr. Hugo Tolentino DO - Last Filed: 12/02/22 09:57> Physical Exam Const Vital Signs: 12/02/22 05:02 12/02/22 08:34 Temperature 98.4 F Temperature Source Oral Pulse Rate 99 72 Respiratory Rate 18 14 Blood Pressure 177/82 H 154/55 H Blood Pressure Mean 113 88 Pulse Ox 99 99 Oxygen Delivery Method Room Air Room Air MDM <Dr. Gabriel Mcfarland MD - Last Filed: 12/14/22 09:45> [facility] Narrative Medical decision making narrative: With right upper quadrant pain and radiation to the intrascapular area need to assess for biliary pathology. With her complaint of hiccups this may be result of diaphragmatic irritation and need to consider right lower lobe pneumonia. Patient denies any urologic symptoms. She was medicated with morphine for her pain. CBC was obtained assess white count differential. Hepatic profile to assess total bili, AST ALT. Electrolyte panel in the event that his CT of the abdomen and pelvis is indicated. Patient states she had a recent CAT scan will review those results. With symptoms being intermittent doubt pulmonary embolus. Because patient had right CVA tenderness a UA was obtained to assess for infection and blood. Patient did have a CAT scan of the abdomen October 20. This was performed because of concern for diverticulitis. There is no evidence of diverticulitis. Findings and interpretation by radiologist revealed, small hypodensities are seen in the left and right lobe liver as described suggestive of a hemangioma. And, a 2.7 cm x 2 cm complex septated cyst in the left adnexa. ? History & Record Review Discussion w/independent historian: Patient Additional record(s) reviewed:: Prior outpatient record and Prior labs Lab Data Attestation: I reviewed the patient's lab results. Lab results narrative: CBC reveals mild anemia. Patient's had mild anemia for some time. Differential is unremarkable. Competence metabolic panel with slight elevation of creatinine to 1.16 with a GFR 49. Glucose is slightly elevated 118 with a normal CO2 anion gap. Total bili, direct bili and AST are slightly elevated 1.4, 0.31 and 41 respectively. Patient was assessed at 0537. She feels markedly better. She still has tenderness in the right upper quadrant. Lipase returned normal. Will order ultrasound of the gallbladder to evaluate for biliary disease since CAT scan is not as sensitive as ultrasound for cholelithiasis 75% versus 95% sensitivity. Labs: Laboratory Results - last 24 hr 12/02/22 12/02/22 12/02/22 05:10 05:10 06:32 WBC 7.2 RBC 3.75 L Hgb 11.5 L Hct 36.0 L MCV 96.0 MCH 30.7 MCHC 31.9 L RDW Std Deviation 44.1 H RDW Coeff of Delphine 12.4 Plt Count 186 MPV 11.1 Immature Gran % (Auto) 0.600 Neut % (Auto) 68.9 Lymph % (Auto) 18.7 L [place] % (Auto) 9.7 Eos % (Auto) 1.7 Baso % (Auto) 0.4 Absolute Neuts (auto) 5.0 Absolute Lymphs (auto) 1.35 Nucleated RBC % 0 Sodium 139 Potassium 4.3 Chloride 105 Carbon Dioxide 28.0 Anion Gap 6 BUN 25 H Creatinine 1.16 H Estim Creat Clear Calc 35.18 Est GFR (MDRD) Af Amer 59 L Est GFR (MDRD) Non-Af 49 L BUN/Creatinine Ratio 21.6 H Glucose 118 H Calcium 9.5 Total Bilirubin 1.40 H Direct Bilirubin 0.31 H AST 41 H ALT 51 Alkaline Phosphatase 82 Total Protein 7.1 Albumin 3.9 Globulin 3.2 Lipase 43 Urine Color Straw Urine Clarity Clear Urine pH 7.0 Ur Specific [place] 1.010 Urine Protein Negative Urine Glucose (UA) Normal Urine Ketones Negative Urine Occult Blood Negative Urine Nitrite Negative Urine Bilirubin Negative Urine Urobilinogen Normal Ur Leukocyte Esterase Negative Urine RBC 0 SEEN Urine WBC 0 SEEN Ur Squamous Epith Cells 0 SEEN Urine Bacteria 0 SEEN Urine Mucus 0 SEEN Radiography Chest X-Ray - ED: 2 View and Read by ED Physician (Independently interpreted by me at 0526 as unremarkable for any acute process. Cardiac silhouette and size normal. Perihilar region normal. Lung parenchyma is normal. Osseous structures are unremarkable.) Diagnostic Testing: Clinical Impression(s) from Imaging Studies Chest X-Ray 12/02/22 05:02 IMPRESSION: No acute intrathoracic abnormality. Electronically Signed: Ethel Zazueta MD at 7:05 EDT , Gallbladder Ultrasound 12/02/22 05:44 IMPRESSION: Heterogeneous echotexture of the liver. 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 Small right renal cyst. 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 Plan is ultrasound in the morning of the right upper quadrant/gallbladder. Care was transferred to the morning physician to make disposition once the ultrasound has been performed and interpreted. <Dr. Hugo Tolentino, DO - Last Filed: 12/02/22 09:57> [facility] Lab Data Labs: Laboratory Results - last 24 hr 12/02/22 12/02/22 12/02/22 05:10 05:10 06:32 WBC 7.2 RBC 3.75 L Hgb 11.5 L Hct 36.0 L MCV 96.0 MCH 30.7 MCHC 31.9 L RDW Std Deviation 44.1 H RDW Coeff of Delphine 12.4 Plt Count 186 MPV 11.1 Immature Gran % (Auto) 0.600 Neut % (Auto) 68.9 Lymph % (Auto) 18.7 L [place] % (Auto) 9.7 Eos % (Auto) 1.7 Baso % (Auto) 0.4 Absolute Neuts (auto) 5.0 Absolute Lymphs (auto) 1.35 Nucleated RBC % 0 Sodium 139 Potassium 4.3 Chloride 105 Carbon Dioxide 28.0 Anion Gap 6 BUN 25 H Creatinine 1.16 H Estim Creat Clear Calc 35.18 Est GFR (MDRD) Af Amer 59 L Est GFR (MDRD) Non-Af 49 L BUN/Creatinine Ratio 21.6 H Glucose 118 H Calcium 9.5 Total Bilirubin 1.40 H Direct Bilirubin 0.31 H AST 41 H ALT 51 Alkaline Phosphatase 82 Total Protein 7.1 Albumin 3.9 Globulin 3.2 Lipase 43 Urine Color Straw Urine Clarity Clear Urine pH 7.0 Ur Specific [place] 1.010 Urine Protein Negative Urine Glucose (UA) Normal Urine Ketones Negative Urine Occult Blood Negative Urine Nitrite Negative Urine Bilirubin Negative Urine Urobilinogen Normal Ur Leukocyte Esterase Negative Urine RBC 0 SEEN Urine WBC 0 SEEN Ur Squamous Epith Cells 0 SEEN Urine Bacteria 0 SEEN Urine Mucus 0 SEEN Radiography Diagnostic Testing: Clinical Impression(s) from Imaging Studies Chest X-Ray 12/02/22 05:02 IMPRESSION: No acute intrathoracic abnormality. Electronically Signed: Ethel Zazueta MD at 7:05 EDT , Gallbladder Ultrasound 12/02/22 05:44 IMPRESSION: Heterogeneous echotexture of the liver. 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 Small right renal cyst. Electronically Signed: Medhat Davidson MD at 9:05 EDT , Treatment and Re-Evaluation :: Patient was informed of her laboratory results and prior CAT scan results. Plan is ultrasound in the morning of the right upper quadrant/gallbladder. Care was transferred to the morning physician to make disposition once the ultrasound has been performed and interpreted. Care of the patient was turned over to me pending ultrasound results. There is no evidence of cholecystitis or cholelithiasis. There is small hemangiomata in the left and right lobes of the liver. There is a small right renal cyst. This was interpreted by the radiologist and was independently reviewed by myself. Patient was advised of her findings. Patient was instructed to follow-up with her primary care physician in 4 days as scheduled. Patient was advised that she may need further outpatient testing. Patient understands and is agreeable with the plan. All questions were answered. Discharge Plan Triage Chief Complaint: Abd Pain ED Provider: Gabriel Mcfarland Dx/Rx/DC Orders Clinical Impression: Abdominal pain, right upper quadrant, Hypertension Instructions: ED Abdominal Pain Unkn Cause Fem Prescriptions: No Action lisinopril 10 mg tablet 10 mg PO DAILY Triamterene/Hydrochlorothiazid [Triamterene-Hctz 37.5-25 Mg Tb] 1 EACH tablet 1 tab PO DAILY hydroxychloroquine 200 mg tablet 200 mg PO BIDCM Primary Care Provider: Jatin Dillon Referrals: Jatin Dillon DO [Primary Care Provider] - Keep Shanda appointment Activity Restrictions/Additional Instructions: Avoid fatty foods, fried foods, and greasy foods as this may exacerbate your pain. Disposition Disposition: Home, Self Care Discharge Date/Time: 12/02/22 10:05
[2022-12-02] MEDS: Ondansetron 4 MG/2 ML Vial IV (05:14)
[2022-12-02] MEDS: 0.9% Normal Saline 1,000 ML 250 ML IV (05:14)
[2022-12-02] MEDS: Morphine 4 MG/ML Syringe IV (05:15)
[2022-12-02 05:20] LABS: Absolute Lymphocyte Count 1.35 X10^3/uL (0.83-4.51); Basophil# 0.03 X10^3/uL; Basophil% 0.4 % (0-1); Eosinophil# 0.12 X10^3/uL; Eosinophils% 1.7 % (0-5); Hemoglobin 11.5 g/dL (12.0-15.0); Lymphocyte # 1.35 X10^3/ul (0.83-4.51); Lymphocyte % 18.7 % (19-41); Mean Corp Hgb Conc 31.9 g/dL (32-36); Mean Corpuscular Hgb 30.7 pg (27.0-32.0); Mean Platelet Vol. 11.1 fl (6.2-12.0); Monocyte% 9.7 % (0-10); NRBC Flagged by Analyzer 0 % (0-5); Neutrophil # 4.99 X10^3/uL (2.7-7.7); Neutrophil % 68.9 % (47-70); Platelet Count 186 K/mm3 (150-450); RBC Distribution Width CV 12.4 % (11.6-14.6); RBC Distribution Width SD 44.1 fl (35.1-43.9); Red Blood Count 3.75 M/mm3 (4.2-5.4); White Blood Count 7.2 K/mm3 (4.4-11.0)
[2022-12-02 05:41] LABS: AST(SGOT) 41 U/L (15-37); Alanine Aminotransfer ALT/SGPT 51 U/L (13-56); Albumin, Serum 3.9 g/dL (3.2-5.0); Alkaline Phosphatase 82 U/L (45-117); Anion Gap 6 (5-15); BUN 25 mg/dL (7-18); BUN/Creat Ratio 21.6 RATIO (10-20); Bilirubin, Direct 0.31 mg/dL (0.00-0.30); Calcium,Total 9.5 mg/dL (8.5-10.1); Chloride 105 mmol/L (98-107); Creatinine, Serum 1.16 mg/dL (0.55-1.02); EST Glomerular Filtration Rate 49 mL/min (>60); Est Glom Filt Rate - Afr Amer 59 mL/min (>60); Estimated Creatinine Clearance 35.18 ml/min; Globulin 3.2 g/dL (2.2-4.2); Glucose 118 mg/dL (74-106); Lipase 43 U/L (13-75); Potassium 4.3 mmol/L (3.5-5.1); Protein, Total 7.1 g/dL (6.4-8.2); Sodium Level 139 mmol/L (136-145)
--- NOTE | 2022-12-02 05:44 | US_ITS ---
STUDY: ABDOMINAL ULTRASOUND - RIGHT UPPER QUADRANT REASON FOR VISIT: Female, 71 years old pain, elevated total bili and AST TECHNIQUE: Ultrasound evaluation of the right upper quadrant was performed with real-time and static dawkins-scale imaging. TECHNICAL QUALITY: Adequate. COMPARISON: Comparison is made with prior examination dated July 16, 2015. FINDINGS: Liver: The liver measures 10.5 cm. There is a heterogeneous echogenicity of the liver. The bile ducts are within normal limits. There is hepatic color flow. The direction of portal flow is hepatopetal. There is a 1.8 cm x 1.9 cm x 1.4 cm echogenic nodule in the left lobe of the liver suggestive of an hemangioma. A similar appearing nodular density seen in the right lobe. This measures 1.1 signed by 2.2 cm x 0.9 cm. Gallbladder: Normal distended gallbladder. The gallbladder wall measures 1.9 mm. There is a negative sonographic Meredith''s sign. There is no pericholecystic fluid. There are no gallstones. Common Bile Duct (C.B.D.): The common bile duct measures 2.3 mm. Pancreas: Normal size of the head, body and tail of the pancreas. There is normal echogenicity of the pancreas. There is no demonstrated pancreatic mass or cyst. Right Kidney: Normal size of the right kidney. The right kidney measures 10.1 cm x 6.5 cm x 3.7 cm. Normal renal cortex. The right cortex measures 1.0 cm. There is a 1.3 cm x 0.8 cm x 1 cm renal cyst. There is no right hydronephrosis. US/Gallbladder IMPRESSION: Heterogeneous echotexture of the liver. 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 Small right renal cyst. Electronically Signed: Medhat Davidson MD at 9:05 EDT ,
[2022-12-02 06:48] LABS: Bacteria 0 SEEN /hpf (None Seen); Mucous, Urine 0 SEEN /hpf (<or=2+); Red Blood Cells-Urine 0 SEEN /hpf (0-5); Squamous Epithelial Cells - UA 0 SEEN /hpf (5-10); White Blood Cells 0 SEEN /hpf (0-5)
[2022-12-02 07:01] LABS: Color, Urine Straw (Yellow); Glucose, Dipstick Normal (Normal); Ketone-Dipstick Negative (Negative); Leukocyte Esterase-Dipstick Negative /ul (Negative); Nitrite-Dipstick Negative (Negative); Occult Blood-Urine Negative /ul (Negative); Protein-Dipstick Negative (Negative); Urine Bilirubin Dipstick Negative (Negative); Urine Clarity Clear (Clear); Urine Urobilinogen Normal (Normal)
[2022-12-02 08:34] VITALS: BP 154/55; PULSE 72; RESP 14; O2SAT 99
[2022-12-02 10:04] VITALS: RESP 18
== END 2022-12-02 10:05 | disposition home or self-care (01) ==
PROVIDERS: Emergency Provider Emergency Medicine; PCP Family Medicine; Visit Provider Emergency Medicine
DX: R10.11 Right upper quadrant pain (principal); M54.9 Dorsalgia, unspecified; I10 Essential (primary) hypertension
CPT/HCPCS: 71046; 76705; 80048; 80076; 81001; 83690; 85025; 99283; J7030; A4216; J2405

== ENCOUNTER → 2022-12-06 | Outpatient (CLI) | payer MEDICARE, SELFPAY ==
[2022-12-06 13:16] LABS: Cholesterol 266 mg/dL (200); High Density Lipoprotein 94 mg/dL; Triglycerides 69 mg/dL; Very Low Density Lipoprotein 14 mg/dL (5-40)
[2022-12-06 13:18] LABS: Vitamin D,25 Hydroxy 103.4 ng/mL
== END | disposition home or self-care (01) ==
LOC: BFHLAB 09:23
PROVIDERS: PCP Family Medicine; Referring Provider Family Medicine; Visit Provider Family Medicine
DX: E55.9 Vitamin D deficiency, unspecified (principal); I10 Essential (primary) hypertension
CPT/HCPCS: 36415; 80061; 82306

== ENCOUNTER → 2023-01-04 | Outpatient (CLI) | payer MEDICARE, SELFPAY ==
--- NOTE | 2023-01-04 12:57 | US_ITS ---
STUDY: ULTRASOUND OF THE FEMALE PELVIS - COMPLETE REASON FOR EXAM: Female, 72 years old. Endometrial thickening LMP: Patient is postmenopausal. TECHNIQUE: Transabdominal and Transvaginal TECHNICAL QUALITY: Adequate. COMPARISON: Comparison is made with prior study dated October 20, 2022. FINDINGS: The uterus is anteverted and is in a midline position. The uterus measures 6 cm x 5.2 cm x 2.9 cm. Normal uterine cervix. The endometrium is thickened and measures 5.7 mm in thickness, and is hyperechoic. 3 mm x 4 mm x 4 mm endometrial cyst. There is no demonstrated endometrial mass. Heterogeneous echotexture of the myometrium with the scattered calcifications. I.U.D. - The patient does not have an I.U.D. The right ovary is non-visualized. The left ovary is visualized. The left ovary measures 1.5 cm x 2.3 cm x 1.8 cm. There is an 8 mm x 13 mm x 8 mm left ovarian cyst. There is no visualized left adnexal mass or complex lesion. There is normal arterial and normal venous vascularity. There is no fluid in the cul-de-sac. The pre void volume of the bladder was 470 ml. US/Pelvic w/ Transvaginal IMPRESSION: Endometrial thickening with the endometrial cyst. Heterogeneous echotexture of the myometrium. 8 mm x 15 mm x 8 mm left ovarian cyst. Electronically Signed: Medhat Davidson MD at 14:12 EDT ,
== END | disposition home or self-care (01) ==
LOC: US 12:56
PROVIDERS: PCP Family Medicine; Referring Provider Obstetrics & Gynecology; Visit Provider Obstetrics & Gynecology
DX: R93.89 Abnormal findings on diagnostic imaging of other specified body structures (principal)
CPT/HCPCS: 76830; 76856

== ENCOUNTER → 2023-01-26 | Outpatient (CLI) | payer MEDICARE, SELFPAY ==
[2023-01-26 12:30] LABS: Absolute Lymphocyte Count 1.32 X10^3/uL (0.83-4.51); Absolute Neutrophil Count 3.1 X10^3/uL (2.0-7.7); Basophil# 0.03 X10^3/uL; Basophil% 0.6 % (0-1); Eosinophil# 0.13 X10^3/uL; Eosinophils% 2.6 % (0-5); Hematocrit 35.4 % (37-47); Hemoglobin 11.2 g/dL (12.0-15.0); Lymphocyte # 1.32 X10^3/ul (0.83-4.51); Lymphocyte % 26.4 % (19-41); Mean Corp Hgb Conc 31.6 g/dL (32-36); Mean Corpuscular Hgb 30.7 pg (27.0-32.0); Mean Platelet Vol. 11.5 fl (6.2-12.0); Monocyte# 0.45 X10^3/uL; NRBC Flagged by Analyzer 0 % (0-5); Neutrophil # 3.05 X10^3/uL (2.7-7.7); Platelet Count 186 K/mm3 (150-450); RBC Distribution Width CV 12.3 % (11.6-14.6); RBC Distribution Width SD 43.4 fl (35.1-43.9); Red Blood Count 3.65 M/mm3 (4.2-5.4)
[2023-01-26 12:32] LABS: Erythrocyte Sedimentation Rate 22 mm/hr (0-30)
[2023-01-26 13:00] LABS: ALB/GLOB Ratio 1.1 RATIO (0.9-2.4); AST(SGOT) 34 U/L (15-37); Alanine Aminotransfer ALT/SGPT 30 U/L (13-56); Albumin, Serum 3.6 g/dL (3.2-5.0); Alkaline Phosphatase 84 U/L (45-117); Anion Gap 3 (5-15); BUN 31 mg/dL (7-18); BUN/Creat Ratio 27.4 RATIO (10-20); CRP 3.77 mg/L (0.0-3.0); Calcium,Total 9.5 mg/dL (8.5-10.1); Chloride 106 mmol/L (98-107); Creatinine, Serum 1.13 mg/dL (0.55-1.02); EST Glomerular Filtration Rate 50 mL/min (>60); Est Glom Filt Rate - Afr Amer 61 mL/min (>60); Globulin 3.4 g/dL (2.2-4.2); Glucose 102 mg/dL (74-106); Potassium 4.4 mmol/L (3.5-5.1); Sodium Level 138 mmol/L (136-145)
== END | disposition home or self-care (01) ==
LOC: LAB 12:06
PROVIDERS: PCP Family Medicine; Referring Provider Internal Medicine Rheumatology; Visit Provider Internal Medicine Rheumatology
DX: M06.00 Rheumatoid arthritis without rheumatoid factor, unspecified site (principal); Z79.899 Other long term (current) drug therapy
CPT/HCPCS: 36415; 80053; 85025; 85652; 86140

== ENCOUNTER 2023-02-22 10:18 | Day surgery (SDC) | payer MEDICARE, SELFPAY ==
--- NOTE | 2023-02-22 07:11 | PCM.HP.BLA ---
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 Is patient in pain?: No Allergies Penicillins Allergy (Verified 01/18/23 11:33) Unknown Medications hydroxychloroquine 200 mg tablet 200 mg PO BIDCM 11/02/22 [History Confirmed 11/02/22] lisinopril 10 mg tablet 10 mg PO DAILY 11/02/22 [History Confirmed 12/02/22] hydrochlorothiazide 12.5 mg tablet 25 mg PO DAILY 01/18/23 [History Confirmed 01/18/23] misoprostol 200 mcg tablet (Cytotec) 200 mcg PO .COMPLEX #2 tabs 01/18/23 [Rx Confirmed 01/18/23] PFSH Medical History Hypertension Rheumatoid arthritis Surgical History H/O tubal ligation Family History Father Hypertension Heart diseaseGrandmother Breast cancerAunt Breast cancerMother Colon cancer Social History adopted: No household members: spouse number of children: 2 current occupational status: retired current occupational exposures/hazards: No Smoking Status: Never smoker HPI surgical consult for D&C Details: 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 Previous ultrasound showed some thickening however she did not have any bleeding or abnormal discharge and therefore expectant management first. Upon follow-up there is still thickening with fluid present unclear etiology, patient denies any abdominal pain pelvic pain pressure bloating or bleeding. Recommended for direct visualization for evaluation. She has a history of cervical stenosis and therefore Cytotec will be ordered preop. She denies any other changes in health since the last appointment Female Reproductive History Menopausal Symptoms: No night sweats History Past Pregnancies Del. Date Name GA/Weeks Outcome Route Bth Weight Gen Labor Lgth Anesthesia Del Locatn Provider FOB Unknown Rodrigo Unknown Rosa HEATON Const Constitutional: Denies fatigue, night sweats, weight gain or weight loss ENT ENT: Reports system reviewed and no additional complaints, except as documented Cardio Card: Denies chest pain Resp Resp: Denies cough or dyspnea GI GI: Reports as per HPI; Denies abdominal pain, constipation, nausea or vomiting : Denies nipple discharge, urinary frequency, urinary incontinence, urinary hesitancy, urinary urgency, vaginal discharge, vaginal dryness, vaginal odor or vaginal pruritus Musc Musc: Denies arthralgias, back pain or muscle weakness Skin Skin/Breast: Denies alopecia, change in hair, dry skin, breast mass, breast pain, breast skin changes or nipple discharge Neuro Neuro: Reports system reviewed and no additional complaints, except as documented Psych Psych: Reports system reviewed and no additional complaints, except as documented Endo Endo: Denies cold intolerance, excessive sweating, heat intolerance or polydipsia Jonathan/Lymph Hematologic/Lymphatic: Denies easy bleeding, Denies easy bruising and Denies lymphadenopathy Exam Const General: cooperative, healthy appearing, comfortable and no acute distress Orientation: alert [facility] Head: normal to inspection and normocephalic Ears: hearing grossly normal bilaterally and external ears normal Nose: external nose normal and nares normal Face and sinus: normal facial exam Neck Neck: normal visual inspection and no lymphadenopathy Thyroid: thyroid normal Chest Chest palpation & inspection: normal inspection of the chest Resp Effort & Inspection: normal respiratory effort Auscultation: clear to auscultation bilaterally Cardio Rate: regular rate Rhythm: regular rhythm Heart Sounds: S1 normal and S2 normal GI Inspection: normal to inspection and non-distended Palpation: soft and no hepatosplenomegaly Musc Other: gross motor intact no deficits, full bilateral strength Skin General: no rashes or lesions noted Neuro General: patient alert, patient awake, moves all extremities and no focal motor deficits Motor: muscle tone normal throughout Extrem General: normal to inspection and no pedal edema Psych Appearance: grossly normal Mental Status: mental status grossly normal Affect: normal affect Speech and Movement: speech and movement normal Coding Level of Care Code Off vis,est,level 4 Diagnoses Endometrial thickening on ultrasound R93.89 Assessment and Plan Assessment and Plan (1) Endometrial thickening on ultrasound: Status: Acute Comment: plan d and c hysteroscopy possible symphion, cytotec ordered preop Medications: New misoprostol (Cytotec) 200 mcg PO the night before and 2 hours before the procedure 2 tabs 1RF Plan After discussing the patient's diagnosis and treatment plan options, patient wishes to proceed with surgical management. I have discussed with the patient the risks, benefits, and alternatives of the procedure which include but are not limited to risks of anesthesia, bleeding, infection, possible damage to bowel, bladder, or surrounding vasculature which could lead to additional surgery to evaluate any complications. Patient agrees to procedure and wishes to proceed. ACOG/uptodate references given for additional information regarding procedure.
--- NOTE | 2023-02-22 10:29 | EKG12_ITS ---
Test Reason : PRE-OP Blood Pressure : / mmHG Vent. Rate : 082 BPM Atrial Rate : 082 BPM P-R Int : 142 ms QRS Dur : 074 ms QT Int : 374 ms P-R-T Axes : 072 022 046 degrees QTc Int : 436 ms Normal sinus rhythm Nonspecific ST abnormality Abnormal ECG When compared with ECG of 21-SEP-2007 08:55, MANUAL COMPARISON REQUIRED, DATA IS UNCONFIRMED Confirmed by FELICITA RICKS, CHAN ([id number]), supervising editor trailer PONCE ARBAHAM ([id number]) on 02/25/2023 10:33:25 AM Referred By: Alaina Tellez Confirmed By:CHAN MIMS MD
--- NOTE | 2023-02-22 10:35 | OP.PCM_ITS ---
Problems Associated Problem List Diagnoses (1) Endometrial thickening on ultrasound: Report of Operation Date of Procedure: 02/22/23 Pre-Operative Diagnosis: see problem list Post-Operative Diagnosis: same Surgery/Procedure Performed:: D&C hysteroscopy Surgeon: Alaina Tellez seals engraver: None Type of Anesthesia: Local MAC Special Medications: none Specimen's removed: EMC Drains: none Estimated Blood Loss (mL): 50 Fluids Replaced: crystalloid Description of Procedure: Patient was prepped and draped in a normal sterile fashion under MAC anesthesia. A weighted speculum was placed in the vagina and the anterior lip of the cervix was grasped with a single-tooth tenaculum. A paracervical block was placed with 1% lidocaine. Cervix was progressively dilated to allow passage of a 5 mm hy steroscope. The lining was fully visualized and noted to have[ ] . Uterine sounded to [ ] cm. Curettage was performed and [ ] , sent to pathology. All instruments were removed from the vagina and excellent hemostasis was noted. Patient was awoken and taken to recovery in stable condition. Grafts/Implants Used: none Complications none Admit VTE Documentation VTE Present on Admission: No VTE Mechan Device Prophylaxis: SCD's Multi Select Codes Urinary/Genital Urinary/Genital CPT Codes: 11107 Hysteroscopy,EMC, Polypectomy
--- NOTE | 2023-02-22 10:35 | PCM.OPRPT ---
Problems Associated Problem List Diagnoses (1) Endometrial thickening on ultrasound: Report of Operation Date of Procedure: 02/22/23 Pre-Operative Diagnosis: see problem list Post-Operative Diagnosis: same plus endometrial polyps Surgery/Procedure Performed:: D&C hysteroscopy Description of Surgical Findings:: thickened endometrium with large poly and endometrial thickened area Surgeon: Alaina Tellez wood heel flap rubber: None Type of Anesthesia: Local MAC Special Medications: none Specimen's removed: EMC Drains: none Estimated Blood Loss (mL): 50 Fluids Replaced: crystalloid Description of Procedure: Patient was prepped and draped in a normal sterile fashion under MAC anesthesia. A weighted speculum was placed in the vagina and the anterior lip of the cervix was grasped with a single-tooth tenaculum. A paracervical block was placed with 1% lidocaine. Cervix was progressively dilated to allow passage of a 5 mm hysteroscope. The lining was fully visualized and noted to have thickeend polyp filling the cavity and a left subendometrial area of abnormality . Uterine sounded to 6 cm. Curettage was performed and polypectomy performed, hysteroscopic polypectomy forceps also used to directly visualize sampling , sent to pathology. All instruments were removed from the vagina and excellent hemostasis was noted. Patient was awoken and taken to recovery in stable condition. Grafts/Implants Used: none Complications none Admit VTE Documentation VTE Present on Admission: No VTE Mechan Device Prophylaxis: SCD's Multi Select Codes Urinary/Genital Urinary/Genital CPT Codes: 61059 Hysteroscopy,EMC, Polypectomy
--- NOTE | 2023-02-22 10:36 | DCINST_ITS ---
Discharge Instructions Diet Discharge Diet: No restrictions Activity Discharge Activity: Return to Normal Activity, May Shower and May Take a Tub Bath (after 1 week) May resume sexual activity in: 1-2 weeks Weight Bearing Status: Weight bearing as tolerated Lifting Restrictions: none Dressing / Incision Call your doctor if you observe: Fever of 101 or Higher, Using more than 1 pad per hour, Shortness of breath and Uncontrolled pain Follow Up Care Please Follow Up With: Alaina Tellez MD When: Call [phone] to schedule appointment. Test Results: Test results from this visit will be discussed in further detail at your follow- up appointment, if applicable. Discharge Plan Admission Attending Provider: Alaina Tellez Primary Care Provider: Jatin Dillon Discharge Orders/Prescriptions Prescriptions: No Action lisinopril 10 mg tablet 20 mg PO DAILY hydrochlorothiazide 12.5 mg tablet 25 mg PO DAILY misoprostol [Cytotec] 200 mcg tablet 200 mcg PO .COMPLEX Qty: 2 1RF Rx Instructions: 200 mcg PO the night before and 2 hours before the procedure hydroxychloroquine 200 mg tablet 200 mg PO DAILY calcium 100 mg capsule 600 mg PO DAILY Other Ambulatory Orders: 12 Lead EKG (Routine) Timeframe: [id number] Location: None Selected Ordered By: Dr. Alaina Tellez Referrals / Follow Up: Jatin Dillon DO [Primary Care Provider] - Disposition Disposition (needs filled in before D/C Order can be placed): Home, Self Care
[2023-02-22 10:53] VITALS: BP 173/51; PULSE 84; RESP 18; TEMP 36.4; O2SAT 100; BMI 21.4
[2023-02-22] MEDS: Lactated Ringers 1,000 ML 15 ML IV (10:57)
--- NOTE | 2023-02-22 12:00 | POL_PTH ---
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 Alaina Tellez MD : 1950 BED: DIS: 02/22/2023 SPEC #: [id number] RECD: 02/22/23 13:32 STATUS: CARYN GLASS #: [id number] BRICE: 02/22/23 12:[address]: Alaina Tellez DEPT: SURGICAL PATHOLOGY RECD BY: Jenny Waldron ENTERED: 02/23/23 09:43 SP TYPE: Polyp OTHR DR: Dr. Jatin Dillon, DO Tissues: POLYP Procedures: Surgery Specimen Level IV HEADER OPERATION: Hysteroscopy, D & C with polypectomy PRE-OP DIAGNOSIS: Endometrial thickening on ultrasound TISSUE SUBMITTED: Uterine polyp MICROSCOPIC DIAGNOSIS Uterine polyp, polypectomy: Fragments of benign endometrial polyp with simple cystic changes. SJ:edwin 02/24/2023 COMMENT Case has been reviewed in consultation with Dr. Bell who concurs with the above diagnosis. IDC:AM GROSS DESCRIPTION Received in fixative is one container labeled with the patient's name and designated uterine polyp. The specimen consists of two irregular fragments of light zamora soft tissue that in aggregate measure 1.7 x 1.0 x 0.3 cm. The specimen is totally submitted in one cassette. / AM:edwin 02/23/2023 TC:5 CPT: 37181
[2023-02-22] MEDS: Lidocaine 1% (20 ml mdv) 20 ML Vial (12:10)
[2023-02-22 12:35] VITALS: BP 117/66; BP 173/51; PULSE 68; RESP 18; TEMP 36.6; O2SAT 100
[2023-02-22 12:40] VITALS: BP 131/64; BP 173/51; PULSE 67; RESP 18; O2SAT 100
[2023-02-22 12:45] VITALS: BP 137/69; BP 173/51; PULSE 64; RESP 18; O2SAT 100
[2023-02-22 12:50] VITALS: BP 144/65; BP 173/51; PULSE 65; RESP 18; TEMP 36.8; O2SAT 99
[2023-02-22 13:07] VITALS: BP 173/51
== END 2023-02-22 13:24 | disposition home or self-care (01) ==
LOC: SDC 10:19 → AC 10:21
PROVIDERS: PCP Family Medicine; Referring Provider Obstetrics & Gynecology; Visit Provider Obstetrics & Gynecology
PROC: 0UB98ZZ Excision of Uterus, Via Natural or Artificial Opening Endoscopic (ICD-10-PCS; CPT 58558; principal; 2023-02-22 11:45)
DX: N84.0 Polyp of corpus uteri (principal); R93.89 Abnormal findings on diagnostic imaging of other specified body structures; I10 Essential (primary) hypertension
CPT/HCPCS: 58558; 00952; 86850; 86900; 86901; 88305; 93005; J7120; J2405

== ENCOUNTER → 2023-06-21 | Outpatient (CLI) | payer MEDICARE, SELFPAY ==
--- NOTE | 2023-06-21 08:16 | BI_ITS ---
MAMMOGRAPHY - BILATERAL SCREENING REASON FOR EXAM: Female, 72 years old. Routine annual screening examination. PERTINENT HISTORY: Grandmother with breast cancer. Aunt with breast cancer. TECHNIQUE: Digital bilateral breast sara (3D mammographic acquisition) in the CC and MLO projections. 2-D mediolateral oblique (MLO) and craniocaudad (CC) views of both breasts were obtained. CAD: Full Field Digital Mammography with Computer Added Detection was performed. COMPARISON: Comparison is made with prior study of May 25, 2022 and March 26, 2021. FINDINGS: Breast Composition: The breasts are heterogeneously dense, which may obscure small masses. There are no dominant masses or suspicious calcifications. No other significant abnormalities are identified. There has been no significant change since the prior study. BI/SCRN MAMM (CAD)W/SARA BILAT IMPRESSION: Stable bilateral screening mammogram. Yearly follow-up mammogram recommended. (A) ASSESSMENT CATEGORY: BIRADS Category 1: Negative. A letter regarding these results will be sent to the patient by the facility within 30 days. Approximately 10% of breast cancers are not detected by mammography. A normal mammogram should not delay biopsy of a clinically suspicious abnormality. [id number] Electronically Signed: Medhat Davidson MD at 14:08 EST ,
== END | disposition home or self-care (01) ==
LOC: OPBI 08:15
PROVIDERS: PCP Family Medicine; Referring Provider Nurse Practitioner Family; Visit Provider Nurse Practitioner Family
DX: Z12.31 Encounter for screening mammogram for malignant neoplasm of breast (principal); Z80.3 Family history of malignant neoplasm of breast
CPT/HCPCS: 77063; 77067

== ENCOUNTER 2023-07-10 10:18 | Emergency (ER) | payer MEDICARE, SELFPAY ==
[2023-07-10 10:19] VITALS: BP 142/80; PULSE 112; RESP 16; TEMP 36.6; O2SAT 100
--- NOTE | 2023-07-10 10:34 | CT_ITS ---
EXAM: CT ABDOMEN AND PELVIS WITH INTRAVENOUS CONTRAST CLINICAL INDICATION: abdominal pain -- IV PO Contrast TECHNIQUE: Helically acquired images were obtained of the abdomen and pelvis with intravenous contrast. This CT exam was performed using one or more of the following dose reduction techniques: automated exposure control, adjustment of the mA and/or kV according to patient size, and/or use of iterative reconstruction technique. CONTRAST: Oral and amp; IV Gastrografin and amp; 100mL Isovue-370 COMPARISON: CT Abdomen Pelvis dated 10/15/2022 FINDINGS: LOWER THORAX: Normal. Lung bases are clear. No cardiomegaly. No pericardial effusion. ABDOMEN: LIVER: Stable 12 mm lesion within hepatic segment 7 and 14 mm lesion within hepatic segment 3 suggestive of hemangiomata. PANCREAS: Normal. No focal cystic or solid mass. SPLEEN: Normal. Normal size without focal cystic or solid mass. ADRENALS: Normal. No nodules. KIDNEYS AND URETERS: Normal. Normal renal size and position. No hydronephrosis. STOMACH AND BOWEL: Multiple dilated thick-walled small bowel loops noted within the lower abdomen. There is fluid distention of the ascending and transverse colon. Prominent wall thickening of the sigmoid colon. PELVIS: APPENDIX: Appendix is visualized and normal in appearance. BLADDER: Normal. REPRODUCTIVE: 4.8 cm left adnexal cystic mass has significantly increased in size from prior study raising possibility of underlying cystic ovarian neoplasm. ABDOMEN and PELVIS: INTRAPERITONEAL SPACE: Interval development of moderate volume ascites. No free air. BONES/JOINTS: No suspicious lytic or blastic abnormality. SOFT TISSUES: Normal. No discrete abdominal or pelvic wall hernia. VASCULATURE: Normal. Abdominal aorta is non-dilated. LYMPH NODES: Interval enlargement of the retroperitoneal lymph nodes adjacent to the aorta and inferior vena cava raising possibility of metastatic disease. CT/Abdomen/Pelvis WITH Contrast IMPRESSION: 1. Interval enlargement of complex cystic left adnexal mass which may represent ovarian neoplasm. 2. Interval development of moderate volume ascites. 3. Multiple thick-walled loops of large and small bowel consistent with inflammatory bowel disease. 4. Enlarging retroperitoneal lymph nodes which may represent metastatic disease. Electronically Signed: Joaquin Pena MD at 13:40 EST ,
--- NOTE | 2023-07-10 10:34 | EKG12_ITS ---
Test Reason : Blood Pressure : / mmHG Vent. Rate : 093 BPM Atrial Rate : 093 BPM P-R Int : 140 ms QRS Dur : 070 ms QT Int : 342 ms P-R-T Axes : 075 041 057 degrees QTc Int : 425 ms Normal sinus rhythm Nonspecific ST abnormality Abnormal ECG Confirmed by FELICITA RICKS, CHAN ([id number]), electronic news gathering editor PONCE ABRAHAM ([id number]) on 07/11/2023 1:06:50 PM Referred By: Confirmed By:CHAN MIMS MD
--- NOTE | 2023-07-10 10:35 | EX.ED.DYSGE1 ---
HPI History of Present Illness Chief Complaint: Nausea/Vomiting Detail of Chief Complaint: Abdominal pain and nausea and vomiting Informant: patient Narrative Narrative: Patient presents to the emergency department with complaint of nausea and vomiting that started within the last 24 hours. She is thrown up twice. Today she had some diarrhea. Patient also with intermittent abdominal pain for several months. She is lost about 10 pounds in the last several months. She has been seen by GI Dr. Mcleod who did a colonoscopy in March that showed a constricted colon and he had a hard time doing the procedure but was able to complete it. Patient states that she was seen in the emergency department several months ago and had an ultrasound of her gallbladder that was unremarkable. She is not sure if she had a CAT scan. She denies any fevers or chills or sweats. She denies dysuria but she does urinate frequently. PFSH [facility] Medical History (Updated 02/16/23 @ 11:10 by Olga Palmer) Easy bruising History of stress test Hypertension Leg cramps Non-smoker Rheumatoid arthritis Wears glasses Home Medications hydroxychloroquine 200 mg tablet 200 mg PO DAILY 11/02/22 [History Last Taken Unknown] lisinopril 10 mg tablet 20 mg PO DAILY 11/02/22 [History Last Taken 02/22/23 05:50] hydrochlorothiazide 12.5 mg tablet 25 mg PO DAILY 01/18/23 [History Last Taken Unknown] misoprostol 200 mcg tablet (Cytotec) 200 mcg PO .COMPLEX #2 tabs 01/18/23 [Rx Last Taken 02/22/23 09:40] calcium 100 mg capsule 600 mg PO DAILY 02/16/23 [History Last Taken Unknown] Allergy/AdvReac Type Severity Reaction Status Date / Time Penicillins Allergy Unknown Verified 07/10/23 10:21 erythromycin base AdvReac Abd Verified 07/10/23 10:21 cramps/diarrhea Family History Father Hypertension Heart disease Grandmother Breast cancer Aunt Breast cancer Mother Colon cancer Surgical History (Updated 02/16/23 @ 11:10 by lOga Palmer) H/O tubal ligation (~1981) History of wisdom tooth extraction (~1979) Social History adopted: No household members: spouse number of children: 2 current occupational status: retired current occupational exposures/hazards: No Smoking Status: Never smoker ROS ROS ED Review of Systems ROS Unobtainable: other Constitutional Constitutional ED: Reports lethargy; Denies chills, fever(s), sweats or weight loss Eyes Eyes: Denies blurry vision, change in vision or diplopia ENT ENT ED: Denies rhinorrhea or sore throat Cardiovascular Cardiovascular: Denies chest pain, orthopnea or racing heartbeat Respiratory/Chest Respiratory/Chest: Denies cough, dyspnea, dyspnea on exertion, orthopnea or sputum Gastrointestinal Gastrointestinal: Reports abdominal pain, diarrhea, nausea and vomiting Genitourinary Genitourinary ED: Denies dysuria, hematuria or urinary frequency Musculoskeletal Musculoskeletal: Denies arthralgias, back pain, myalgias or neck pain Integumentary Denies abscess, Abrasions or rash Neurologic Neurologic: Denies headache(s) or weakness Psychiatric Psychiatric: Denies anxiety, depression or suicidal thoughts Endocrine Endocrinology: Denies polydipsia, polyphagia or polyuria Hematologic/Lymphatic Hematologic/Lymphatic: Denies easy bleeding, easy bruising or lymphadenopathy Allergic/Immunologic Allergic/Immunologic ED: Denies mouth swelling, tongue swelling or urticaria EXAM Physical Exam Const Vital Signs: 07/10/23 10:19 Temperature 97.9 F Temperature Source Temporal Pulse Rate 112 H Respiratory Rate 16 Blood Pressure 142/80 H Blood Pressure Mean 100 Pulse Ox 100 Oxygen Delivery Method Room Air Positive well nourished and well developed General Appearance ED: well developed and NAD HEENT Reports TM's clear and moist mucous membranes normocephalic and atraumatic; Negative for trauma or tenderness Tympanic Membrane ED: Yes TM's clear Eyes PERRL and EOMs intact bilaterally General Eye ED: Negative for pale conjunctiva or scleral icterus Neck no lymphadenopathy, supple and no JVD General: Negative for tenderness Chest Wall inspection of chest normal and palpation of chest normal Chest: Negative for tenderness Resp normal respiratory effort and clear to auscultation bilaterally Effort and Inspection: Negative for respiratory distress or pain with movement Auscultation: Negative for rhonchi, wheezes or diminished lung sounds Cardio regular rate, regular rhythm, S1 normal heart sound, S2 normal heart sound and no murmurs Peripheral Pulses: pulses 2+ throughout GI normal to inspection, nondistended, normoactive bowel sounds, soft to palpation, non-distended and no masses GI Narrative: Mild diffuse tenderness over the epigastric region. There is no rebound, rigidity, or purulent signs. No mass palpated. Back/Spine no CVA tenderness and no thoracic nor lumbar tenderness Extremity normal to inspection General Extremety ED: Negative for edema General Extremity: Negative for edema Neuro oriented x3, CN's II-XII intact bilaterally, no sensory deficits noted and gait normal Sensorium / Orientation: awake, alert, oriented to person, oriented to place and oriented to time Motor Exam: strength 5/5 throughout and strength abnormal Psych mental status grossly normal Skin no rashes or lesions noted and no wounds MDM MDM Radiography Diagnostic Testing: Clinical Impression(s) from Imaging Studies Abdomen/Pelvis CT 07/10/23 10:34 IMPRESSION: 1. Interval enlargement of complex cystic left adnexal mass which may represent ovarian neoplasm. 2. Interval development of moderate volume ascites. 3. Multiple thick-walled loops of large and small bowel consistent with inflammatory bowel disease. 4. Enlarging retroperitoneal lymph nodes which may represent metastatic disease. Electronically Signed: Joaquin Pena MD at 13:40 EST , Discharge Plan Triage Chief Complaint: Nausea/Vomiting ED Provider: Jorge Alberto Stephenson Dx/Rx/DC Orders Prescriptions: No Action lisinopril 10 mg tablet 20 mg PO DAILY hydrochlorothiazide 12.5 mg tablet 25 mg PO DAILY misoprostol [Cytotec] 200 mcg tablet 200 mcg PO .COMPLEX Qty: 2 1RF Rx Instructions: 200 mcg PO the night before and 2 hours before the procedure hydroxychloroquine 200 mg tablet 200 mg PO DAILY calcium 100 mg capsule 600 mg PO DAILY Primary Care Provider: Jatin Dillon Referrals: Jatin Dillon DO [Primary Care Provider] - Disposition Disposition: Acute Care Hospital Discharge Location: [facility] Discharge Date/Time: 07/10/23 22:10
[2023-07-10 11:09] LABS: Absolute Lymphocyte Count 0.61 X10^3/uL (0.83-4.51); Absolute Neutrophil Count 10.9 X10^3/uL (2.0-7.7); Basophil# 0.03 X10^3/uL; Basophil% 0.2 % (0-1); Eosinophil# 0.01 X10^3/uL; Eosinophils% 0.1 % (0-5); Hematocrit 37.4 % (37-47); Lymphocyte # 0.61 X10^3/ul (0.83-4.51); Mean Corp Hgb Conc 32.1 g/dL (32-36); Mean Corpuscular Hgb 29.3 pg (27.0-32.0); Mean Corpuscular Volume 91.4 fL (81-99); Mean Platelet Vol. 10.7 fl (6.2-12.0); Monocyte# 0.54 X10^3/uL; Monocyte% 4.4 % (0-10); NRBC Flagged by Analyzer 0 % (0-5); Neutrophil # 10.94 X10^3/uL (2.7-7.7); Neutrophil % 89.8 % (47-70); Platelet Count 437 K/mm3 (150-450); RBC Distribution Width SD 40.4 fl (35.1-43.9); Red Blood Count 4.09 M/mm3 (4.2-5.4); White Blood Count 12.2 K/mm3 (4.4-11.0)
[2023-07-10 11:17] LABS: ALB/GLOB Ratio 0.8 RATIO (0.9-2.4); AST(SGOT) 16 U/L (15-37); Alanine Aminotransfer ALT/SGPT 13 U/L (13-56); Albumin, Serum 3.3 g/dL (3.2-5.0); Alkaline Phosphatase 119 U/L (45-117); Anion Gap 8 (5-15); BUN 22 mg/dL (7-18); BUN/Creat Ratio 17.3 RATIO (10-20); Calcium,Total 9.7 mg/dL (8.5-10.1); Chloride 101 mmol/L (98-107); Creatinine, Serum 1.27 mg/dL (0.55-1.02); EST Glomerular Filtration Rate 44 mL/min (>60); Est Glom Filt Rate - Afr Amer 53 mL/min (>60); Globulin 3.9 g/dL (2.2-4.2); Glucose 121 mg/dL (74-106); Potassium 4.6 mmol/L (3.5-5.1); Protein, Total 7.2 g/dL (6.4-8.2); Sodium Level 136 mmol/L (136-145); Troponin-I HS 14 pg/mL (3.0-54.0)
[2023-07-10 11:20] LABS: Lactic Acid 1.7 mmol/L (0.4-1.9)
[2023-07-10] MEDS: 0.9% Normal Saline (1000mL) 1,000 ML 125 ML IV ×2 (11:33→17:28)
[2023-07-10 12:19] LABS: Lipase 18 U/L (13-75)
[2023-07-10 13:58] LABS: Bacteria 0 SEEN /hpf (None Seen); Mucous, Urine 0 SEEN /hpf (<or=2+); Red Blood Cells-Urine 0 SEEN /hpf (0-5); Squamous Epithelial Cells - UA 0 SEEN /hpf (5-10); White Blood Cells 0 SEEN /hpf (0-5)
[2023-07-10 14:01] LABS: Color, Urine Yellow (Yellow); Glucose, Dipstick Normal (Normal); Ketone-Dipstick 15 mg/dl (Negative); Leukocyte Esterase-Dipstick Negative /ul (Negative); Nitrite-Dipstick Negative (Negative); Occult Blood-Urine Negative /ul (Negative); Protein-Dipstick 15 mg/dl (Negative); Urine Bilirubin Dipstick Negative (Negative); Urine Clarity Clear (Clear); Urine Urobilinogen Normal (Normal)
[2023-07-10] MEDS: Ondansetron 4 MG/2 ML Vial IV ×3 (14:06→22:07)
--- NOTE | 2023-07-10 14:12 | NURSING ---
CALLED [facility], NO BEDS
--- NOTE | 2023-07-10 14:12 | NURSING ---
CALLED [facility]
[2023-07-10 14:28] VITALS: BP 158/73; PULSE 98; RESP 16; TEMP 36.8; O2SAT 97; BMI 21.9
--- NOTE | 2023-07-10 16:48 | NURSING ---
[facility] HOSP[address]IST DR BAEZ FOR DR CEJA
[2023-07-10 17:33] VITALS: BP 157/65; PULSE 93; RESP 18; O2SAT 98
--- NOTE | 2023-07-10 19:35 | ED.RN ---
[facility] CALLED, ETA [phone]
--- NOTE | 2023-07-10 19:59 | ED.RN ---
Report given to RN at [facility].
[2023-07-10 20:40] VITALS: BP 150/69; PULSE 98; RESP 18; TEMP 36.8; O2SAT 97
== END 2023-07-10 22:10 | disposition short-term general hospital (02) ==
LOC: ED 10:46
PROVIDERS: Emergency Provider Emergency Medicine; PCP Family Medicine; Visit Provider Emergency Medicine
DX: R11.2 Nausea with vomiting, unspecified (principal); R10.9 Unspecified abdominal pain; I10 Essential (primary) hypertension; Z79.899 Other long term (current) drug therapy
CPT/HCPCS: 74177; 80053; 81001; 83605; 83690; 84484; 85025; 87428; 93005; 96361; 96374; 96376; 99283; J7030; Q9967; A4216; J2405

== ENCOUNTER → 2023-09-30 | Outpatient (CLI) | payer MEDICARE, SELFPAY ==
--- NOTE | 2023-09-30 10:55 | WOUNDNOTE ---
Pt present today with her daughter Rosa. patient is s/p laparoscopy with peritoneal biopsy with a loop transverse colostomy. surgery was 07/15/23 at [facility]. Pt has been getting chemo treatments every [address] Mccoy. patient had been having issues with leaks, but today patient and daughter state the leaking has decreased quite a bit. patient states they are now changing the appliance approx every 3 days. the peristomal skin has also greatly improved per patient and daughter. daughter states the appliance was just change yesterday so they do not want to remove the appliance at this time. both states they are feeling much more comfortable with caring for the appliance now. all questions answered at this time. both very appreciative of the visit and aware to call if other concerns arise.
== END | disposition home or self-care (01) ==
LOC: ET 09:59
PROVIDERS: PCP Family Medicine; Referring Provider Internal Medicine Hematology & Oncology; Visit Provider Internal Medicine Hematology & Oncology
DX: Z71.89 Other specified counseling (principal); C56.2 Malignant neoplasm of left ovary
CPT/HCPCS: 99211; G0463

== ENCOUNTER 2024-01-12 10:41 | Outpatient (CLI) | payer MEDICARE, SELFPAY ==
[2024-01-12 11:00] VITALS: BP 140/60; PULSE 72; RESP 16; TEMP 36.6; O2SAT 99; BMI 21.0
[2024-01-12 11:30] VITALS: BP 138/68; PULSE 63; RESP 16; TEMP 36.9; O2SAT 98
[2024-01-12 12:04] VITALS: BP 146/69; PULSE 69; RESP 16; TEMP 36.6; O2SAT 100
== END 2024-01-12 23:59 | disposition home or self-care (01) ==
LOC: MEDOUTP 10:41
PROVIDERS: PCP Family Medicine; Referring Provider Internal Medicine Hematology & Oncology; Visit Provider Internal Medicine Hematology & Oncology
DX: D69.6 Thrombocytopenia, unspecified (principal)
CPT/HCPCS: 36430; 86900; 86901; 86965; J7040; P9035; A4216

== ENCOUNTER → 2024-01-16 | Outpatient (CLI) | payer MEDICARE, SELFPAY | END | disposition home or self-care (01) | LOC: LABSPEC 19:54 | PROVIDERS: PCP Family Medicine; Visit Provider Internal Medicine Hematology & Oncology | DX: Z00.00 Encounter for general adult medical examination without abnormal findings (principal) | CPT/HCPCS: 86900; 86901 ==

== ENCOUNTER 2024-01-17 10:16 | Outpatient (CLI) | payer MEDICARE, SELFPAY ==
[2024-01-17 10:33] VITALS: BP 183/80; PULSE 69; RESP 16; TEMP 36.2; O2SAT 99; BMI 21.0
[2024-01-17 10:57] VITALS: BP 141/71; PULSE 64; RESP 16; TEMP 36.1
[2024-01-17 11:32] VITALS: BP 153/72; PULSE 62; RESP 16; TEMP 36.1; O2SAT 99
== END 2024-01-17 23:59 | disposition home or self-care (01) ==
LOC: MEDOUTP 10:16
PROVIDERS: PCP Family Medicine; Referring Provider Internal Medicine Hematology & Oncology; Visit Provider Internal Medicine Hematology & Oncology
DX: D69.6 Thrombocytopenia, unspecified (principal); D63.8 Anemia in other chronic diseases classified elsewhere
CPT/HCPCS: 36430; 86900; 86901; 86965; J7040; P9035; A4216

== ENCOUNTER 2024-01-24 08:17 | Outpatient (CLI) | payer MEDICARE, SELFPAY ==
[2024-01-24 08:27] VITALS: BP 162/80; PULSE 73; RESP 16; TEMP 35.8; O2SAT 100; BMI 21.9
[2024-01-24 09:06] VITALS: BP 154/61; PULSE 67; RESP 16; TEMP 36.2
[2024-01-24 10:06] VITALS: BP 148/65; PULSE 67; RESP 16; TEMP 36.1
[2024-01-24 10:29] VITALS: BP 161/65; PULSE 63; RESP 16; TEMP 36.1; O2SAT 100
== END 2024-01-24 23:59 | disposition home or self-care (01) ==
LOC: MEDOUTP 08:17
PROVIDERS: PCP Family Medicine; Referring Provider Internal Medicine Hematology & Oncology; Visit Provider Internal Medicine Hematology & Oncology
DX: D64.81 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 chemotherapy (principal)
CPT/HCPCS: 36430; 86850; 86900; 86901; 86920; 86922; J7040; P9016; A4216

== ENCOUNTER → 2024-06-26 | Outpatient (CLI) | payer MEDICARE, SELFPAY ==
--- NOTE | 2024-06-26 09:52 | BI_ITS ---
MAMMOGRAPHY - BILATERAL SCREENING REASON FOR EXAM: Female, 73 years old. Routine annual screening examination. PERTINENT HISTORY: Grandmother with breast cancer. Personal history of ovarian carcinoma. Aunt with breast cancer. TECHNIQUE: Digital bilateral breast sara (3D mammographic acquisition) in the CC and MLO projections. 2-D mediolateral oblique (MLO) and craniocaudad (CC) views of both breasts were obtained. CAD: Full Field Digital Mammography with Computer Added Detection was performed. COMPARISON: Comparison is made with prior study number 13/03/2023 and May 25, 2022. FINDINGS: Breast Composition: The breasts are heterogeneously dense, which may obscure small masses. There are no dominant masses or suspicious calcifications. A port is seen in the right axilla. No other significant abnormalities are identified. There has been no significant change since the prior study. BI/SCRN MAMM (CAD)W/SARA BILAT IMPRESSION: Stable bilateral screening mammogram. Yearly follow-up mammogram recommended. (A) ASSESSMENT CATEGORY: BIRADS Category 2: Benign. A letter regarding these results will be sent to the patient by the facility within 30 days. Approximately 10% of breast cancers are not detected by mammography. A normal mammogram should not delay biopsy of a clinically suspicious abnormality. [id number] Electronically Signed: Medhat Davidson MD at 10:37 EST ,
== END | disposition home or self-care (01) ==
LOC: OPBI 09:51
PROVIDERS: PCP Family Medicine; Referring Provider Nurse Practitioner Family; Visit Provider Nurse Practitioner Family
DX: Z12.31 Encounter for screening mammogram for malignant neoplasm of breast (principal)
CPT/HCPCS: 77063; 77067

== ENCOUNTER 2025-04-12 10:13 | Outpatient (CLI) | payer MEDICARE, SELFPAY ==
[2025-04-12 10:42] VITALS: BP 150/57; PULSE 73; RESP 16; TEMP 36.2; O2SAT 100; BMI 20.5
[2025-04-12 11:07] VITALS: BP 121/53; PULSE 68; RESP 16; TEMP 36.2; O2SAT 100
[2025-04-12 12:00] VITALS: BP 140/62; PULSE 65; RESP 16; TEMP 36.3; O2SAT 100
== END 2025-04-12 23:59 | disposition home or self-care (01) ==
LOC: MEDOUTP 10:17
PROVIDERS: PCP Family Medicine; Referring Provider Internal Medicine Hematology & Oncology; Visit Provider Internal Medicine Hematology & Oncology
DX: D64.81 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 chemotherapy (principal)
CPT/HCPCS: 36430; 86850; 86900; 86901; P9016; A4216

== ENCOUNTER 2025-05-09 10:56 | Outpatient (CLI) | payer MEDICARE, SELFPAY ==
[2025-05-09 11:00] VITALS: BP 199/95; PULSE 110; RESP 16; TEMP 36.1; O2SAT 97
[2025-05-09 11:56] VITALS: BP 172/70; PULSE 72; RESP 16; TEMP 36.6; O2SAT 100
[2025-05-09 12:50] VITALS: BP 177/87; PULSE 70; RESP 16; TEMP 36.7; O2SAT 99
== END 2025-05-09 23:59 | disposition home or self-care (01) ==
LOC: MEDOUTP 10:56
PROVIDERS: PCP Family Medicine; Referring Provider Internal Medicine Hematology & Oncology; Visit Provider Internal Medicine Hematology & Oncology
DX: D64.81 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 chemotherapy (principal)
CPT/HCPCS: 36430; 86850; 86900; 86901; P9016; A4216

== ENCOUNTER 2025-05-10 01:54 | Inpatient (IN) | payer MEDICARE, SELFPAY ==
[2025-05-10] VITALS (14 sets, daily range): BP systolic 140–206; BP diastolic 80–121; PULSE 94–120; RESP 16–27; TEMP 36.2–36.9; O2SAT 87–97; BMI 22.5; BMI 21.7
--- NOTE | 2025-05-10 02:18 | EKG12_ITS ---
Test Reason : DYSRHYTHMIA Blood Pressure : */* mmHG Vent. Rate : 97 BPM Atrial Rate : 97 BPM P-R Int : 156 ms QRS Dur : 66 ms QT Int : 358 ms P-R-T Axes : 47 2 71 degrees QTcB Int : 454 ms Normal sinus rhythm Possible Inferior infarct , age undetermined Abnormal ECG Confirmed by FELICITA RICKS, CHAN ([id number]), newspaper editor managing RA BERNABE ([id number]) on 05/10/2025 8:34:04 AM Referred By: Confirmed By: CHAN MIMS MD
--- NOTE | 2025-05-10 02:39 | EDS_ITS ---
HPI History of Present Illness Chief Complaint: Shortness of Breath Informant: patient, spouse/S.O. and family Narrative Narrative: Patient is a 74-year-old female with a past medical history of cancer currently undergoing chemotherapy with her last dose being May 01. She states that roughly 1 week ago she went to [facility] secondary to feeling short of breath. She states that at that time her oxygen level was low and she was diagnosed with community-acquired pneumonia. She reports she tested negative for COVID influenza and RSV at that time. She states because of her history of cancer she was then transferred to [facility]. She states she was only There for roughly 1 day and discharged home. She states that she does not have a history of lung disorder nor does she smoke or vape or require oxygen at baseline. She states she is on cefdinir and doxycycline and has been taking those as directed. Despite taking the medication she states this evening she had worsening shortness of breath and therefore comes to the hospital for evaluation [facility] Medical History Wears glasses Easy bruising Non-smoker Leg cramps History of stress test Rheumatoid arthritis Hypertension Home Medications ?Medication ?Instructions ?Recorded ?Last Taken ?Type calcium 100 mg capsule 600 mg PO DAILY 02/16/23 Unk nown History oxybutynin chloride 15 mg 15 mg PO DAILY 01/12/24 Unkn own History tablet,extended release 24 hr pantoprazole 40 mg tablet,delayed 40 mg PO DAILY 01/11 Unknown History release vitamin B complex (Vitamins B 1 cap PO DAILY 01/12/24 Unknown History Complex capsule) clonidine HCl 0.1 mg tablet 0.1 mg PO DAILY PRN High B P SBP>160 05/09/25 Unknown History lisinopril 40 mg tablet 40 mg PO DAILY 05/09/25 Unkn own History cefdinir 300 mg capsule 300 mg PO DAILY 05/10/25 Unk nown History doxycycline hyclate 100 mg capsule 100 mg PO 05/10/25 Unknown History Allergy/AdvReac Type Severity Reaction Status Date / Time Penicillins Allergy Unknown Verified 05/10/25 02:01 erythromycin base AdvReac Abd Verified 05/10/25 02:01 cramps/diarrhea Family History Father Hypertension Heart disease Grandmother Breast cancer Aunt Breast cancer Mother Colon cancer Surgical History History of wisdom tooth extraction (~1979) H/O tubal ligation (~1981) Social History adopted: No household members: spouse number of children: 2 current occupational status: retired current occupational exposures/hazards: No Smoking Status: Never smoker ROS ROS ED Constitutional Constitutional ED: Denies chills or fever(s) Eyes Eyes: Denies blurry vision or change in vision ENT ENT ED: Reports rhinorrhea; Denies sore throat Cardiovascular Cardiovascular: Reports racing heartbeat; Denies chest pain or palpitations Respiratory/Chest Respiratory/Chest: Reports cough, dyspnea and dyspnea on exertion Gastrointestinal Gastrointestinal: Denies abdominal pain, diarrhea, nausea or vomiting Genitourinary Genitourinary ED: Denies dysuria Musculoskeletal Musculoskeletal: Denies myalgias Integumentary Denies rash Neurologic Neurologic: Denies headache(s) Hematologic/Lymphatic Hematologic/Lymphatic: Denies easy bleeding or easy bruising Allergic/Immunologic Allergic/Immunologic ED: Denies mouth swelling or tongue swelling EXAM Physical Exam Const Vital Signs: 05/10/25 01:54 05/10/25 01:54 05/10/25 01:57 Temperature 97.5 F L 97.5 F L Temperature Source Oral Oral Pulse Rate 120 H 97 113 H Respiratory Rate 27 H 23 H 24 H Respiratory Effort Respiratory Depth Respiratory Pattern Blood Pressure 206/121 H 194/104 H 194/104 H Blood Pressure Mean 149 134 134 Pulse Ox 87 95 89 Oxygen Delivery Method Room Air Room Air Nasal Cannula Oxygen Flow Rate (L/min) 2 05/10/25 01:57 05/10/25 02:28 05/10/25 02:57 Temperature 98 F Temperature Source Oral Pulse Rate 101 H 99 Respiratory Rate 22 H 25 H Respiratory Effort Short of Breath Labored Accessory Muscle Use Respiratory Depth Deep Respiratory Pattern Tachypnea Tachypnea Blood Pressure 169/90 H Blood Pressure Mean 116 Pulse Ox 90 Oxygen Delivery Method Nasal Cannula Room Air Oxygen Flow Rate (L/min) 2 05/10/25 03:00 05/10/25 03:59 Temperature 97.8 F 98.1 F Temperature Source Oral Oral Pulse Rate 107 H 110 H Respiratory Rate 19 H 21 H Respiratory Effort Respiratory Depth Respiratory Pattern Blood Pressure 174/111 H 183/100 H Blood Pressure Mean 132 127 Pulse Ox 92 90 Oxygen Delivery Method Room Air Room Air Oxygen Flow Rate (L/min) Positive well nourished and well developed Constitutional Narrative: Patient is in mild respiratory distress with tachypnea General Appearance ED: well developed; Negative for pallor HEENT HEENT Narrative: Normocephalic atraumatic No tongue or lip swelling no oral lesions no airway edema or compromise; no secondary findings in the posterior pharynx to suggest infection There is cobblestoning the posterior pharynx consistent with sinus drainage Eyes PERRL and EOMs intact bilaterally General Eye ED: Negative for scleral icterus Neck supple and no JVD Neck Narrative: No nuchal rigidity or meningeal signs Chest Wall palpation of chest normal Chest Narrative: No bony deformity or subcutaneous emphysema noted Resp Resp Narrative: Patient is in mild respiratory distress with tachypnea. Breath sounds are severely diminished throughout with bibasilar rhonchi and crackles noted. How ever no wheeze No nasal flaring retractions or accessory muscle use Orthopnea is present as patient lays flat and pulse ox reduces to 86% Cardio regular rhythm Rate: tachycardic and other Other Details: Tachycardic rate with regular rhythm Radial and carotid pulses are equal and symmetric Extremity normal to inspection Extremity Narrative: No asymmetric edema no pitting edema negative Homans' sign bilaterally Neuro oriented x3, CN's II-XII intact bilaterally and no sensory deficits noted Sensorium / Orientation: alert Motor Exam: strength 5/5 throughout Psych mental status grossly normal Skin no rashes or lesions noted General Skin Exam: Negative for jaundice or pallor MDM MDM MDM Narrative Medical decision making narrative: Patient arrived to the ER hypertensive but has a past medical history of this and takes her medications in the morning. Her room air pulse ox is low at 87% and she does not have a reported history of lung pathology or need for supplemental oxygen. She states she was just admitted to [facility] secondary to her hypoxia and was told it is due to community-acquired pneumonia. However she is on Omnicef and Doxy and still had breakthrough symptoms this evening. They occurred when she was lying down and this could be related to potential CHF. There is concern that with her immunosuppression she is neutropenic or has developed acute kidney injury or anemia requiring transfusion. Patient also has congestion and drainage and this could be related to a viral infection such as rhinovirus or human metapneumovirus. The patient's outside record from [facility] Was reviewed. The CTA revealed congestive heart failure with bilateral pleural effusions. It stated superimposed infection cannot be ruled out but there is no pulmonary embolus. As the patient only stayed a reported day in the hospital and the CTA was negative for PE I felt no need to repeat 1 at this time. Her recent echo was reviewed as well and patient has according to the report trace mitral and tricuspid regurg with a normal ejection fraction of 61%. The patient's proBNP is 27,000 however in the ER. Her x-ray shows pulmonary vascular congestion. She desats to 86% while lying flat. She does not have access to oxygen at home nor she on any type of medication for heart failure. Therefore I feel her safest option is admission to the hospital once again. She can undergo IV diuresis and discuss new medications to control symptoms at home. As she is not febrile she does not have neutropenia her lactic acid is normal her procalcitonin is only 0.14 I do not feel this is systemic infection/pneumonia I do not feel the need for antibiotics at this time. I did discuss the case with the hospitalist on-call Dr. Toussaint. She agrees with admission for diuresis and further treatment options regarding her new onset heart failure and will accept the patient to her service for continued care History & Record Review Discussion w/independent historian: Patient, Family and Significant other Lab Data Attestation: I reviewed the patient's lab results. Labs: Laboratory Results - last 24 hr 05/10/25 02:25 WBC 3.8 L RBC 2.95 L Hgb 9.7 L Hct 29.3 L MCV 99.3 H MCH 32.9 H MCHC 33.1 RDW Std Deviation 74.7 H RDW Coeff of Delphine 20.6 H Plt Count 109 L MPV 11.3 Immature Gran % (Auto) 0.500 Neut % (Auto) 59.8 Lymph % (Auto) 29.2 [place] % (Auto) 8.4 Eos % (Auto) 1.6 Baso % (Auto) 0.5 Absolute Neuts (auto) 2.3 Absolute Lymphs (auto) 1.12 Nucleated RBC % 0 Differential Comment SCANNED Platelet Estimate ADEQUATE Polychromasia 1+ Anisocytosis 2+ Sodium 138 Potassium 4.3 Chloride 107 Carbon Dioxide 20.9 L Anion Gap 10 BUN 32 H Creatinine 0.90 Estim Creat Clear Calc 43.37 L Est GFR (MDRD) Non-Af 68 BUN/Creatinine Ratio 36.1 H Glucose 113 H Lactic Acid < 1.0 Calcium 9.1 Magnesium 1.6 [place] [address] H Procalcitonin 0.14 H Radiography Diagnostic Testing: Clinical Impression(s) from Imaging Studies Chest X-Ray 05/10/25 02:50 IMPRESSION: Bilateral lower lung zone pneumonia and effusion. Follow-up is recommended Reading Location: [place] [id number] Chest x-ray as interpreted by the emergency medicine physician reveals pulmonary vascular congestion without obvious infiltrate or pneumothorax Discharge Plan Dx/Rx/DC Orders Clinical Impression: Acute exacerbation of congestive heart failure, Hypoxia, Hypertension, History of ovarian cancer Disposition Disposition: Acute Care [facility]
[2025-05-10 02:47] LABS: Hematocrit 29.3 % (37-47); Hemoglobin 9.7 g/dL (12.0-15.0); Immature Granulocytes Count 0.020 X10^3/uL (0.0-0.0); Mean Corp Hgb Conc 33.1 g/dL (32-36); Mean Corpuscular Volume 99.3 fL (81-99); Mean Platelet Vol. 11.3 fl (6.2-12.0); NRBC Flagged by Analyzer 0 % (0-5); POSITIVE MORPHOLOGY YES; Platelet Count 109 K/mm3 (150-450); RBC Distribution Width CV 20.6 % (11.6-14.6); RBC Distribution Width SD 74.7 fl (35.1-43.9); Red Blood Count 2.95 M/mm3 (4.2-5.4); White Blood Count 3.8 K/mm3 (4.4-11.0)
--- NOTE | 2025-05-10 02:50 | RAD_ITS ---
PROCEDURE: CHEST 1 VIEW (PORTABLE) 05/10/2025 REASON FOR EXAM: DYSPNEA TECHNIQUE: Frontal view of the chest. COMPARISON: None FINDINGS: Hardware: Right central venous line is seen in mid SVC. Normal cardiac size. Bilateral lower lung zones pneumonic consolidations and mild bilateral pleural effusion is noted. No pneumothorax. No acute ribs abnormalities RAD/Chest 1 View (Portable) IMPRESSION: Bilateral lower lung zone pneumonia and effusion. Follow-up is recommended Reading [facility] [address]
[2025-05-10 02:52] LABS: Differential Indicated SCAN CRITERIA MET
[2025-05-10 03:10] LABS: Anion Gap 10 (5-15); BUN 32 mg/dL (4-19); BUN/Creat Ratio 36.1 RATIO (10-20); Calcium,Total 9.1 mg/dL (7.6-11.0); Carbon Dioxide 20.9 mmol/L (21.0-32.0); Chloride 107 mmol/L (98-108); Estimated Creatinine Clearance 43.37 ml/min (50-250); Glucose 113 mg/dL (70-99); Magnesium 1.6 mg/dL (1.5-2.2); Potassium 4.3 mmol/L (3.3-5.1); Pro- Brain NATRIURETIC PEPTIDE 27378 pg/mL (<=900); Procalcitonin 0.14 ng/mL (<=0.10)
--- OUTSIDE RECORDS SUMMARY | 2025-05-10 03:17 | XMS RPT_ITS | CCD ---
Author Organization [facility] CliniSyut Care Team Providers Care Personnel Placement Specialist Name Role Phone Feliz RICKS, Krysitan Silva Primary Care Provider Dr. Emily Casanova Primary Care Provider [phone] Dr. Emily Casanova Referring Provider Dr. Alaina Tellez Attending Provider [phone] PHYSICIAN, NONE Attending Unavailable PHYSICIAN, NONE Primary Care Unavailable TAMEKA STEPHENSON Admitting Unavailable TAMEKA STEPHENSON Attending Unavailable EMILY CASANOVA Primary Care Unavailable Emily Casanova DO Primary Care Provider Hiram Mccoy DO Unavailable Miky RN, Joy Unavailable Unavailable Emily Casanova DO Primary Care Provider Rohit Miles MD Unavailable [phone] Guerrero Vilchis MD Unavailable Phong Smith Unavailable UnavailEmily Braswell Primary Care Unavailable Hiram Mccoy Referring Unavailable Hiram Mccoy Attending Unavailable Nikki Persaud Referring Unavailable Nikki Persaud Attending Unavailable Emily Casanova Primary Care Unavailable BART SCHRADER DO Attending Unavailab EMILY Zimmerman Primary Care Unavailable GUERRERO VILCHIS Attending Unavailable EMILY CASANOVA Primary Care Unavailable MAYTE GONZALEZ Referring UnavailROHIT Garcia Referring UnavailEMILY Braswell Primary Care Unavailable EMILY CASANOVA Primary Care Unavailable MULUGETA VALERIO Referring Unavailable EMILY CASANOVA Primary Care Unavailable GUERRERO VILCHIS Attending Unavailable RAUH-ANAI, GUERRERO A Referring Unavailable JOCELYNE, EMILY A Primary Care Unavailable RAUH-ANIA, GUERRERO A Referring Unavailable MALIKOWSKI, MAYTE L Attending Unavailabl e BRANDSTETTER, ROHIT Attending Unavailabl e JOCELYNE, EMILY A Primary Care Unavailable RAUH-ANAI, GUERRERO A Referring Unavailable JOCELYNE, EMILY A Primary Care Unavailable MALIKOWSKI, MAYTE L Attending Unavailabl e JOCELYNE, EMILY A Primary Care Unavailable BRANDSTETTER, ROHIT Attending Unavailabl e BRANDSTETTER, ROHIT Referring Unavailabl e JOCELYNE, EMILY A Primary Care Unavailable BRANDSTETTER, ROHIT Admitting Unavailabl e BRANDSTETTER, ROHIT Attending Unavailabl e JOCELYNE, EMILY A Primary Care Unavailable MINSTEFFIPING Referring Unavailable TILLINGHAST, CASTRO Consulting Unavailable AKRAM, APRIL Admitting Unavailable AKRAM, APRIL Attending Unavailable BRANDSTETTER, ROHIT Referring Unavailabl e JOCELYNE, EMILY A Primary Care Unavailable JOCELYNE, EMILY A Primary Care Unavailable MASCI, HIRAM A Referring Unavailable JOCELYNE, EMILY A Primary Care Unavailable JOCELYNE, EMILY A Primary Care Unavailable MASCI, HIRAM A Attending Unavailable JOCELYNE, EMILY A Primary Care Unavailable JOCELYNE, EMILY A Primary Care Unavailable JOCELYNE, EMILY A Primary Care Unavailable MASCI, HIRAM A Referring Unavailable JOCELYNE, EMILY A Primary Care Unavailable JOCELYNE, EMILY A Primary Care Unavailable JOCELYNE, EMILY A Primary Care Unavailable MASCI, HIRAM A Referring Unavailable JOCELYNE, EMILY A Primary Care Unavailable MASCI, HIRAM A Referring Unavailable JOCELYNE, EMILY A Primary Care Unavailable JOCELYNE, EMILY A Primary Care Unavailable JOCELYNE, EMILY A Primary Care Unavailable JOCELYNE, EMILY A Primary Care Unavailable FADI RAMIREZ Attending Unavailable JOCELYNE, EMILY A Primary Care Unavailable JOCELYNE, EMILY A Primary Care Unavailable JOCELYNE, EMILY A Primary Care Unavailable JOCELYNE, EMILY A Primary Care Unavailable MASCI, HIRAM A Attending Unavailable JOCELYNE, EMILY A Primary Care Unavailable JOCELYNE, EMILY A Primary Care Unavailable JOCELYNE, EMILY A Primary Care Unavailable JOCELYNE, EMILY A Primary Care Unavailable MASCI, HIRAM A Attending Unavailable JOCELYNE, EMILY A Primary Care Unavailable JOCELYNE, EMILY A Primary Care Unavailable JOCELYNE, EMILY A Primary Care Unavailable MASCI, HIRAM A Referring Unavailable JOCELYNE, EMILY A Primary Care Unavailable MASCI, HIRAM A Referring Unavailable JOCELYNE, EMILY A Primary Care Unavailable JOCELYNE, EMILY A Primary Care Unavailable MASCI, HIRAM A Referring Unavailable JOCELYNE, EMILY A Primary Care Unavailable MASCI, HIRAM A Referring Unavailable JOCELYNE, EMILY A Primary Care Unavailable MASCI, HIRAM A Referring Unavailable JOCELYNE, EMILY A Primary Care Unavailable MASCI, HIRAM A Referring Unavailable JOCELYNE, EMILY A Primary Care Unavailable JOCELYNE, EMILY A Primary Care Unavailable SELF Referring Unavailable MARK KRUSE II Attending Unavailabl e JOCELYNE, EMILY A Primary Care Unavailable MASCI, HIRAM A Referring Unavailable JOCELYNE, EMILY A Primary Care Unavailable Allergies Allergy Classification Reported Allergen(s) Allergy Type Date of Onset Reaction(s) Facility Macrolides (antibiotic) (1 source) Erythromycin Drug Allergy 8 Diarrhea, GI Upset [facility] Penicillins (antibiotic) (1 source) Penicillins Drug Allergy 8 Unknown [facility] (16 sources) Penicillins; Translations: [PENICILLINS] Allergy to substance 8 Unknown [facility] (20 sources) Erythromycin; Translations: [ERYTHROMYCIN] Drug Allergy 8 GI Upset, Diarrhea [facility] Work Phone: (20 sources) Penicillins Propensity to adverse reactions 8 Unknown [facility] Work Phone: (20 sources) Penicillins Drug Allergy 8 Unknown [facility] (1 source) Erythromycin Drug Allergy 5 [facility] Repository (1 source) Penicillins Drug allergy (disorder) 5 [facility] Medications Current Medications Medication Drug Class(es) Dates Sig (Normalized) Sig (Original) apixaban 2.5 mg oral tablet (6 sources) Factor Xa Inhibitor Start: 11-01-2023 End: 11-25-2023 take 1 tablet by mouth twice daily apixaban (ELIQUIS) 2.5 mg tab(s) Take 1 tablet by mouth two times a day for 24 days. 48 tablet 0 11/01/2023 11/25/2023 Active Comment on above: Take 1 tablet by martha th two times a day for 24 days. Calcium (2 sources) Phosphate Binder, Calcium Start: 02-16-2023 take 600 mg by mouth once daily Calcium Active 600 MG PO DAILY February 16, 2023 12:00am Start: 02-16-2023 take 600 mg by mouth once kiki y Calcium Active 600 MG PO DAILY February 15, 2023 11:00pm Calcium Carbonate (20 sources) take 1 tablet by martha th once daily calcium carbonate (CALCIUM 600 ORAL) Take 1 tablet by mouth once daily. Active End: 08-26-2023 calcium carbonate (CALCIUM 3 00 ORAL) Take by mouth. 0 08/26/2023 Discontinued calcium carbonat e (CALCIUM 300 ORAL) Take by mouth. 0 Active take 1 tablet by martha th once daily calcium carbonate (CALCIUM 600 ORAL) Take 1 tablet by mouth once daily. 0 Active Comment on above: Take by mouth. Take 1 tablet by martha th once daily. calcium carbonate 1500 mg / cholecalciferol 800 unt oral tablet (5 sources) Vitamin D Start: 03-03-2016 Calcium Carbonate-Vitamin D3 Active 1 EACH PO DAILY March 03, 2016 12:00am enteric contrast (will be provided with radiology test) (20 sources) Start: 02-25-2025 End: 02-26-2025 enteric contrast (will be provided with radiology test) Indications: Ovarian cancer, bilateral (HCC) For CT CHESTABD/PEL W IVCON Routine order Administer, As Directed One Time Only, via Oral, Rectal, both Oral and Rectal, Enteric Tube, Stoma or Indwelling Catheter, Enteric Contrast as designated per enteric contrast guidelines 1 each 02/25/2025 02/26/2025 Active Start: 01-16-2024 End: 05-03-2024 enteric contrast (will be pr ovided with radiology test) Indications: Ovarian cancer, bilateral (HCC) For CT ABD/PEL W IVCON Routine order Administer, As Directed One Time Only, via Oral, Rectal, both Oral and Rectal, Enteric Tube, Stoma or Indwelling Catheter, Enteric Contrast as designated per enteric contrast guidelines 1 Each 01/16/2024 05/03/2024 Discontinued Start: 01-16-[address] (will be provided with radiology test) Indications: Ovarian cancer, bilateral (HCC) For CT ABD/PEL W IVCON Routine order Administer, As Directed One Time Only, via Oral, Rectal, both Oral and Rectal, Enteric Tube, Stoma or Indwelling Catheter, Enteric Contrast as designated per enteric contrast guidelines 1 Each 01/16/2024 Active Start: 01-16-[address] (will be provided with radiology test) Indications: Ovarian cancer, bilateral (HCC) For CT ABD/PEL W IVCON Routine order Administer, As Directed One Time Only, via Oral, Rectal, both Oral and Rectal, Enteric Tube, Stoma or Indwelling Catheter, Enteric Contrast as designated per enteric contrast guidelines 1 Each 0 01/16/2024 Active Start: 09-16-2023 End: 10-07-2023 enteric contrast (will be pr ovided with radiology test) Indications: Ovarian cancer on left (HCC) For CT ABD/PEL W IVCON Routine order Administer, As Directed One Time Only, via Oral, Rectal, both Oral and Rectal, Enteric Tube, Stoma or Indwelling Catheter, Enteric Contrast as designated per enteric contrast guidelines 1 Each 0 09/16/2023 10/07/2023 Discontinued Start: 09-16-[address] (will be provided with radiology test) Indications: Ovarian cancer on left (HCC) For CT ABD/PEL W IVCON Routine order Administer, As Directed One Time Only, via Oral, Rectal, both Oral and Rectal, Enteric Tube, Stoma or Indwelling Catheter, Enteric Contrast as designated per enteric contrast guidelines 1 Each 0 09/16/2023 Active Comment on above: For CT ABD/PEL W IVC ON Routine order Administer, As Directed One Time Only, via Oral, Rectal, both Oral and Rectal, Enteric Tube, Stoma or Indwelling Catheter, Enteric Contrast as designated per enteric contrast guidelines hydroCHLOROthiazide 12.5 mg oral tablet (20 sources) Thiazide Diuretic Start: 2022 take 25 mg by mouth once daily Hydrochlorothiazide Active 25 MG PO DAILY January 18, 2023 12:00am take 1 tablet by mouth once kiki y hydroCHLOROthiazide 12.5 mg tablet Take 12.5 mg by mouth once daily. 0 Active take 1 tablet by mouth twice carlitos ly hydroCHLOROthiazide 12.5 mg tablet Take 12.5 mg by mouth two times a day. 0 Active Comment on above: Take 12.5 mg by mout h once daily. Take 12.5 mg by mout h two times a day. hydroCHLOROthiazide 12.5 mg / lisinopril 20 mg oral tablet (20 sources) Thiazide Diuretic, Angiotensin Converting Enzyme Inhibitor Start: take 1 tablet by mouth twice daily lisinopril-hyd roCHLOROthiazi de (ZESTORETIC) 20-12.5 mg per tablet Take 1 tablet by mouth two times a day. 05/03/2024 Active Start: 05-03-2024 lisinopril-hyd roCHLOROthiazide (ZESTORETIC) 20-12.5 mg per tablet 05/03/2024 Active Start: 11-01-2023 take 1 tablet by martha th once daily lisinopril-hydroCHLOROthiazide (ZESTORET IC) 20-12.5 mg per tablet Take 1 tablet by mouth once daily. 30 tablet 2 11/01/2023 Active Start: 09-14-2023 take 1 tablet by martha th every twelve hours lisinopril-hydroCHLOROthiazide (ZESTORET IC) 20-12.5 mg per tablet Take 1 tablet by mouth every 12 hours. 0 09/14/2023 Active Comment on above: Take 1 tablet by martha th every 12 hours. Take 1 tablet by martha th once daily. hydroxychloroquine sulfate 200 mg oral tablet (20 sources) Antimalarial, Antirheumatic Agent Start: 2022 take 200 mg by mouth once daily Hydroxychloroquine Active 200 MG PO DAILY November 02, 2022 11:02am Start: 11-02-2022 take 300 mg by mouth twice daily at mealtime Hydroxychloroquine Active 300 MG PO TWICE DAILY WITH MEALS November 02, 2022 11:02am Start: 06-20-2018 End: 08-26-2023 hydroxychloroquine (PLAQUENI L) 200 mg tablet 1.5 tablets once daily. 0 06/20/2018 08/26/2023 Discontinued Start: 03-03-2016 End: 11-02-2022 take 200 mg by mouth twice daily at mealtime Hydroxychloroquine Discontinued 200 MG PO TWICE DAILY WITH MEALS March 03, 2016 12:00am November 02, 2022 11:04am Comment on above: 1.5 tablets once carlitos ly. iv contrast (will be provided with radiology test) (20 sources) Start: 02-25-2025 End: 02-26-2025 iv contrast (will be provided with radiology test) Indications: Ovarian cancer, bilateral (HCC) CT Chest ABD/PEL-Inject, intravenously, once for 1 dose.No IV access, insert saline lock prior to the beginning of sedation, infusion, injection of imaging exam. Discontinue saline lock post exam. If Pt. has a central line or IVAD, may access for administration according to line specific nursing protocol. Once exam is complete flush line and de-access according to line specific nursing protocol in the CT contrast administration guidelines link. 1 each 02/25/2025 02/26/2025 Active Start: 01-16-2024 End: 05-03-2024 iv contrast (will be provide d with radiology test) Indications: Ovarian cancer, bilateral (HCC) CT ABD/PEL -Inject, intravenously, once for 1 dose.No IV access, insert saline lock prior to the beginning of sedation, infusion, injection of imaging exam. Discontinue saline lock post exam. If Pt. has a central line or IVAD, may access for administration according to line specific nursing protocol. Once exam is complete flush line and de-access according to line specific nursing protocol in the CT contrast administration guidelines link. 1 Each 01/16/2024 05/03/2024 Discontinued Start: 01-16-2024 End: 04-19-2024 iv contrast (will be provide d with radiology test) Indications: Ovarian cancer, bilateral (HCC) CT Chest W -Inject, intravenously, once for 1 dose.No IV access, insert saline lock prior to the beginning of sedation, infusion, injection of imaging exam. Discontinue saline lock post exam. If Pt. has a central line or IVAD, may access for administration according to line specific nursing protocol. Once exam is complete flush line and de-access according to line specific nursing protocol in the CT contrast administration guidelines link. 1 Each 01/16/2024 04/19/2024 Discontinued Start: 01-16-2024 iv contrast (w ill be provided with radiology test) Indications: Ovarian cancer, bilateral (HCC) CT Chest W -Inject, intravenously, once for 1 dose.No IV access, insert saline lock prior to the beginning of sedation, infusion, injection of imaging exam. Discontinue saline lock post exam. If Pt. has a central line or IVAD, may access for administration according to line specific nursing protocol. Once exam is complete flush line and de-access according to line specific nursing protocol in the CT contrast administration guidelines link. 1 Each 01/16/2024 Active Start: 01-16-2024 iv contrast (w ill be provided with radiology test) Indications: Ovarian cancer, bilateral (HCC) CT ABD/PEL -Inject, intravenously, once for 1 dose.No IV access, insert saline lock prior to the beginning of sedation, infusion, injection of imaging exam. Discontinue saline lock post exam. If Pt. has a central line or IVAD, may access for administration according to line specific nursing protocol. Once exam is complete flush line and de-access according to line specific nursing protocol in the CT contrast administration guidelines link. 1 Each 01/16/2024 Active Start: 01-16-2024 iv contrast (w ill be provided with radiology test) Indications: Ovarian cancer, bilateral (HCC) CT Chest W -Inject, intravenously, once for 1 dose.No IV access, insert saline lock prior to the beginning of sedation, infusion, injection of imaging exam. Discontinue saline lock post exam. If Pt. has a central line or IVAD, may access for administration according to line specific nursing protocol. Once exam is complete flush line and de-access according to line specific nursing protocol in the CT contrast administration guidelines link. 1 Each 0 01/16/2024 Active Start: 01-16-2024 iv contrast (w ill be provided with radiology test) Indications: Ovarian cancer, bilateral (HCC) CT ABD/PEL -Inject, intravenously, once for 1 dose.No IV access, insert saline lock prior to the beginning of sedation, infusion, injection of imaging exam. Discontinue saline lock post exam. If Pt. has a central line or IVAD, may access for administration according to line specific nursing protocol. Once exam is complete flush line and de-access according to line specific nursing protocol in the CT contrast administration guidelines link. 1 Each 0 01/16/2024 Active Start: 09-16-2023 End: 10-07-2023 iv contrast (will be provide d with radiology test) Indications: Ovarian cancer on left (HCC) CT Chest W -Inject, intravenously, once for 1 dose.No IV access, insert saline lock prior to the beginning of sedation, infusion, injection of imaging exam. Discontinue saline lock post exam. If Pt. has a central line or IVAD, may access for administration according to line specific nursing protocol. Once exam is complete flush line and de-access according to line specific nursing protocol in the CT contrast administration guidelines link. 1 Each 0 09/16/2023 10/07/2023 Discontinued Start: 09-16-2023 End: 10-07-2023 iv contrast (will be provide d with radiology test) Indications: Ovarian cancer on left (HCC) CT ABD/PEL -Inject, intravenously, once for 1 dose.No IV access, insert saline lock prior to the beginning of sedation, infusion, injection of imaging exam. Discontinue saline lock post exam. If Pt. has a central line or IVAD, may access for administration according to line specific nursing protocol. Once exam is complete flush line and de-access according to line specific nursing protocol in the CT contrast administration guidelines link. 1 Each 0 09/16/2023 10/07/2023 Discontinued Start: 09-16-2023 iv contrast (w ill be provided with radiology test) Indications: Ovarian cancer on left (HCC) CT Chest W -Inject, intravenously, once for 1 dose.No IV access, insert saline lock prior to the beginning of sedation, infusion, injection of imaging exam. Discontinue saline lock post exam. If Pt. has a central line or IVAD, may access for administration according to line specific nursing protocol. Once exam is complete flush line and de-access according to line specific nursing protocol in the CT contrast administration guidelines link. 1 Each 0 09/16/2023 Active Start: 09-16-2023 iv contrast (w ill be provided with radiology test) Indications: Ovarian cancer on left (HCC) CT ABD/PEL -Inject, intravenously, once for 1 dose.No IV access, insert saline lock prior to the beginning of sedation, infusion, injection of imaging exam. Discontinue saline lock post exam. If Pt. has a central line or IVAD, may access for administration according to line specific nursing protocol. Once exam is complete flush line and de-access according to line specific nursing protocol in the CT contrast administration guidelines link. 1 Each 0 09/16/2023 Active Comment on above: CT Chest W -Inject, intravenously, once for 1 dose.No IV access, insert saline lock prior to the beginning of sedation, infusion, injection of imaging exam. Discontinue saline lock post exam. If Pt. has a central line or IVAD, may access for administration according to line specific nursing protocol. Once exam is complete flush line and de-access according to line specific nursing protocol in the CT contrast administration guidelines link. CT ABD/PEL -Inject, intravenously, once for 1 dose.No IV access, insert saline lock prior to the beginning of sedation, infusion, injection of imaging exam. Discontinue saline lock post exam. If Pt. has a central line or IVAD, may access for administration according to line specific nursing protocol. Once exam is complete flush line and de-access according to line specific nursing protocol in the CT contrast administration guidelines link. lidocaine 25 mg/ml / prilocaine 25 mg/ml topical cream (20 sources) Antiarrhythmic, Amide Local Anesthetic Start: 03-20-2025 End: 04-13-2026 lidocaine-prilocaine (EMLA) 2.5-2.5 % cream Indications: Ovarian cancer on left (HCC) Apply 60 minutes prior to accessing port 15 g 3 03/20/2025 04/13/2026 Active Start: 08-01-2023 End: 08-24-2024 lidocaine-prilocaine (EMLA) 2.5-2.5 % cream Indications: Ovarian cancer on left (HCC) Apply 60 minutes prior to accessing port 15 g 3 08/01/2023 08/24/2024 Active Comment on above: Apply 60 minutes osbaldo or to accessing port magnesium oxide 200 mg oral tablet (20 sources) magnesium oxide 200 mg magnesium tab Take 1 tablet by mouth as needed. Active miSOPROStol 0.2 mg oral tablet (3 sources) Prostaglandin E1 Analog Start: Misoprostol (Cytotec) 200 mcg tablet Active 200 MCG PO .COMPLEX 2 January 18, 2023 12:00am 200 mcg PO the night before and 2 hours before the procedure olaparib 100 mg oral tablet (20 sources) Poly(ADP-Ribose) Polymerase Inhibitor Start: take 2 tablets by mouth twice daily olaparib (LYNPARZA) 100 mg tablet Indications: Ovarian cancer, bilateral (HCC) , BRIP1 gene mutation positive Take 2 tablets (200 mg) by mouth two times a day. 120 tablet 5 02/20/2025 10:52 AM EDT 09/02/2024 Active Start: 03-23-2024 End: 08-31-2024 take 2 tablets by mouth twice daily in the evening olaparib (LYNPARZA) 100 mg tablet Indications: Ovarian cancer, bilateral (HCC) , BRIP1 gene mutation positive Take 2 tablets (200 mg) by mouth two times a day. 120 tablet 5 08/23/2024 1:53 PM EST 03/23/2024 08/31/2024 Discontinued Start: 03-15-2024 End: 03-23-2024 take 2 tablets by mouth twice daily olaparib (LYNPARZA) 150 mg tablet Indications: Ovarian cancer, bilateral (HCC) , BRIP1 gene mutation positive Take 2 tablets (300 mg) by mouth two times a day. 180 tablet 5 03/15/2024 03/23/2024 Discontinued ondansetron 8 mg oral tablet (20 sources) Serotonin-3 Receptor Antagonist Start: 01-23-2024 End: 01-23-2024 ondansetron (PF) 8 mg injection (ZOFRAN) Start: 12-28-2023 End: 12-28-2023 ondansetron (PF) 8 mg inject ion (ZOFRAN) Start: 12-06-2023 End: 12-06-2023 ondansetron (PF) 8 mg inject ion (ZOFRAN) Start: 07-27-2023 End: 02-08-2025 take 1 tablet by mouth every eight hours as needed ondansetron (ZOFRAN) 8 mg tablet Take 1 tablet by mouth every 8 hours as needed for nausea/vomiting. 60 tablet 2 02/08/2025 Active Comment on above: Take 1 tablet by martha th every 8 hours as needed for nausea/vomiting. 24 hr oxybutynin chloride 10 mg extended release oral tablet (20 sources) Cholinergic Muscarinic Antagonist Start: take 1 tablet by mouth once daily oxybutynin ER (DITROPAN XL) 10 mg 24 hr tablet Take 15 mg by mouth once daily. 09/12/2023 Active Start: 09-12-2023 take 1 tablet by martha th once daily oxybutynin ER (DITROPAN XL) 10 mg 24 hr tablet Take 10 mg by mouth once daily. 0 09/12/2023 Active Comment on above: Take 10 mg by mouth once daily. Take 15 mg by mouth once daily. oxyCODONE hydrochloride 5 mg oral tablet (2 sources) Opioid Agonist Start: End: take 1 tablet by mouth every four hours as needed oxyCODONE IR (ROXICODONE) 5 mg immediate release tablet Indications: Post-operative state Take 1-2 tablets by mouth every 4 hours as needed for up to 3 days. 5 tablet 0 11/01/2023 11/04/2023 Active Comment on above: Take 1-2 tablets by mouth every 4 hours as needed for up to 3 days. pantoprazole 40 mg delayed release oral tablet (20 sources) Proton Pump Inhibitor Start: 024 End: 025 take 1 tablet by mouth once daily pantoprazole DR (PROTONIX) 40 mg tablet Indications: Ovarian cancer, bilateral (HCC) TAKE 1 TABLET BY MOUTH EVERY DAY 90 tablet 1 11/02/2024 Active Comment on above: Take 1 tablet by [facility] once daily. prochlorperazine 10 mg oral tablet (15 sources) Phenothiazine Start: 025 take 1 tablet by mouth every six hours as needed prochlorperazine (COMPAZINE) 10 mg tablet Take 1 tablet by mouth every 6 hours as needed. 30 tablet 2 03/20/2025 Active Start: 08-30-2023 End: 09-29-2023 take 5-10 mg by mouth every six hours as needed prochlorperazine (COMPAZINE) 5 mg tablet Take 1-2 tablets by mouth every 6 hours as needed. 120 tablet 1 08/30/2023 09/29/2023 Active Start: 08-19-2023 End: 09-02-2023 take 2 tablets by mouth every six hours as needed prochlorperazine (COMPAZINE) 5 mg tablet Take 2 tablets by mouth every 6 hours as needed for up to 14 days. 60 tablet 0 08/19/2023 08/30/2023 Discontinued Comment on above: Take 2 tablets by [facility] every 6 hours as needed for up to 14 days. Take 1-2 tablets by mouth every 6 hours as needed. vitamin b complex capsule (20 sources) take 1 capsule by mouth once daily vitamin b complex capsule Take 1 capsule by mouth once daily. Active take 1 capsule by mo [facility] once daily vitamin b complex capsule Take 1 capsule by mouth once daily. 0 Active End: 08-26-2023 take 1 capsule by mouth once daily vitamin b complex capsule Take 1 capsule by mouth once daily. 0 08/26/2023 Discontinued Comment on above: Take 1 capsule by [facility] once daily. Completed/Discontinued Medications Medication Drug Class(es) Dates Sig (Normalized) Sig (Original) acetaminophen 500 mg oral tablet (20 sources) Start: 11-01-2023 End: 11-02-2024 take 2 tablets by mouth every six hours in the morning acetaminophen (TYLENOL) 500 mg tablet Take 2 tablets by mouth every 6 hours. 100 tablet 11/01/2023 9:58 AM EDT 11/01/2023 11/02/2024 Discontinued Comment on above: Take 2 tablets by [facility] every 6 hours. amLODIPine 2.5 mg oral tablet (1 source) Dihydropyridine Calcium Channel [place] Start: 05-02-2020 take 1 tablet by mouth once daily amLODIPine (NORVASC) 2.5 mg tablet Take 2.5 mg by mouth once daily. 0 05/02/2020 Active Comment on above: Take 2.5 mg by mouth once daily. aspirin 81 mg chewable tablet (11 sources) Platelet Aggregation Inhibitor, Nonsteroidal Anti-inflammatory Drug Start: 03-03-2016 End: 11-02-2022 take 81 mg by mouth once daily Aspirin Discontinued 81 MG PO DAILY March 03, 2016 12:00am November 02, 2022 11:02am Start: 02-09-2008 ASPIRIN 81 MG TAB, DELAYED RELEASE Take one(1) tablet daily. 0 02/09/2008 Active Comment on above: Take one(1) tablet d aily. atenolol 25 mg oral tablet (11 sources) beta-Adrenergic Dale Start: 03-03-2016 End: 11-02-2022 take 25 mg by mouth once daily Atenolol Discontinued 25 MG PO DAILY March 03, 2016 12:00am November 02, 2022 11:02am Calcium Carbonate / vitamin D3 (1 source) CALCIUM CARBONATE/VITAMIN D3 (CALCIUM+D ORAL) Take by mouth. 0 Active Comment on above: Take by mouth. CARBOplatin 338.5 mg in NaCl 0.9% 308.85 mL (PARAPLATIN) (1 source) Start: 01-23-2024 End: 01-23-2024 CARBOplatin 338.5 mg in NaCl 0.9% 308.85 mL (PARAPLATIN) CARBOplatin 400 mg in NaCl 0.9% 315 mL (PARAPLATIN) (2 sources) Start: 12-28-2023 End: 12-28-2023 CARBOplatin 400 mg in NaCl 0.9% 315 mL (PARAPLATIN) Start: 12-06-2023 End: 12-06-2023 CARBOplatin 400 mg in NaCl 0 .9% 315 mL (PARAPLATIN) cholecalciferol, vitamin D3, (VITAMIN D3 ORAL) (1 source) cholecalciferol, vitamin D3, (VITAMIN D3 ORAL) Take 5,000 mg by mouth. 0 Active Comment on above: Take 5,000 mg by martha th. ciprofloxacin 500 mg oral tablet (9 sources) Quinolone Antimicrobial Start: 2023 End: 2023 take 1 tablet by mouth once daily in the evening ciprofloxacin HCl (CIPRO) 500 mg tablet Take 1 tablet by mouth at 9 pm the day before surgery. 1 tablet 0 10/25/2023 11/18/2023 Discontinued Comment on above: Take 1 tablet by martha at 9 pm the day before surgery. dexamethasone 4 mg oral tablet (20 sources) Corticosteroid Start: 2023 End: 2023 dexAMETHasone (DECADRON) 4 mg tablet Take 5 tablets 12 and 6 hours prior to chemotherapy treatment. 10 tablet 5 07/27/2023 01/16/2024 Discontinued Comment on above: Take 5 tablets 12 an d 6 hours prior to chemotherapy treatment. dexAMETHasone 10 mg in NaCl 0.9% 50 mL (DECADRON) (3 sources) Start: 2023 End: 2023 dexAMETHasone 10 mg in NaCl 0.9% 50 mL (DECADRON) Start: 12-28-2023 End: 12-28-2023 dexAMETHasone 10 mg in NaCl 0.9% 50 mL (DECADRON) Start: 12-06-2023 End: 12-06-2023 dexAMETHasone 10 mg in NaCl 0.9% 50 mL (DECADRON) diphenhydrAMINE (3 sources) Histamine-1 Receptor Antagonist Start: 01-23-2024 End: 01-23-2024 diphenhydrAMINE 12.5 mg injection (BENADRYL) Start: 12-28-2023 End: 12-28-2023 diphenhydrAMINE 12.5 mg inje ction (BENADRYL) Start: 12-06-2023 End: 12-06-2023 diphenhydrAMINE 12.5 mg inje ction (BENADRYL) 2 ml famotidine 10 mg/ml injection (3 sources) Histamine-2 Receptor Antagonist Start: 01-23-2024 End: 01-23-2024 famotidine 20 mg injection (PEPCID) Start: 12-28-2023 End: 12-28-2023 famotidine 20 mg injection ( PEPCID) Start: 12-06-2023 End: 12-06-2023 famotidine 20 mg injection ( PEPCID) hydroCHLOROthiazide 25 mg / triamterene 37.5 mg oral tablet (11 sources) Potassium-sparing Diuretic, Thiazide Diuretic Start: 03-03-2016 End: 01-18-2023 Triamterene/Hydrochlorothiaz id (Triamterene-Hctz 37.5-25 Mg Tb) 1 EACH tablet Discontinued 1 TABLET PO DAILY March 03, 2016 12:00am January 18, 2023 11:34am Start: 08-15-2008 TRIAMTERENE-HY DROCHLOROTHIAZIDE 37.5 MG-25 MG CAP Indications: Essential hypertension, benign Take one(1) capsule daily. 30 08/15/2008 Active Comment on above: Take one(1) capsule daily. 10 ml iron sucrose 20 mg/ml injection (5 sources) Parenteral Iron Replacement Start: 02-22-2025 End: 02-22-2025 200 mg, INTRAVENOUS, ONCE, 1 dose, On Tue02/22/25 at 0930 Start: 02-20-2025 End: 02-20-2025 200 mg, INTRAVENOUS, ONCE, 1 dose, On Tue02/20/25 at 0930 Start: 02-18-2025 End: 02-18-2025 200 mg, INTRAVENOUS, ONCE, 1 dose, On Tue02/18/25 at 1330 Start: 02-15-2025 End: 02-15-2025 200 mg, INTRAVENOUS, ONCE, 1 dose, On Tue02/15/25 at 1330 Start: 02-13-2025 End: 02-13-2025 200 mg, INTRAVENOUS, ONCE, 1 dose, On Tue02/13/25 at 0900 lisinopril 20 mg oral tablet (20 sources) Angiotensin Converting Enzyme Inhibitor Start: 06-06-2023 End: 10-07-2023 take 1 tablet by mouth once daily lisinopril (ZESTRIL) 20 mg tablet Take 1 tablet by mouth once daily. 0 06/06/2023 10/07/2023 Discontinued Start: 06-06-2023 take 1 tablet by martha th twice daily lisinopril (ZESTRIL) 20 mg tablet Take 1 tablet by mouth two times a day. 0 06/06/2023 Active Start: 11-02-2022 take 20 mg by mouth once daily Lisinopril Active 20 MG PO DAILY November 02, 2022 12:00am Start: 11-02-2022 take 10 mg by mouth once daily Lisinopril Active 10 MG PO DAILY November 02, 2022 12:00am Start: 06-23-2021 lisinopril (ZE STRIL, PRINIVIL) 10 mg tablet Comment on above: Take 1 tablet by martha th daily after breakfast. Take 1 tablet by martha th two times a day. Take 1 tablet by martha th once daily. meloxicam 15 mg oral tablet (1 source) Nonsteroidal Anti-inflammatory Drug Start: 04-28-20 meloxicam (MOBIC) 15 mg tablet metroNIDAZOLE 500 mg oral tablet (20 sources) Nitroimidazole Antimicrobial Start: 08-10-19 End: 11-03-19 take 2 tablets by mouth once daily metroNIDAZOLE (FLAGYL) 500 mg tablet Indications: Attention to colostomy (HCC) Take two tabs by mouth at 1pm, 3pm, and 11pm the day prior to surgery. 6 tablet 08/10/2024 11/02/2024 Discontinued Start: 04-16-2024 take 2 tablets by mo [facility] once daily metroNIDAZOLE (FLAGYL) 500 mg tablet Indications: Attention to colostomy (HCC) Take two tabs by mouth at 1pm, 3pm, and 11pm the day prior to surgery. 6 tablet 04/16/2024 Active Start: 10-25-2023 End: 11-18-2023 take 1 tablet by mouth once daily in the evening metroNIDAZOLE (FLAGYL) 500 mg tablet Please take 1 tablet by mouth at 9 pm and another tablet at 11 pm the day before surgery. 2 tablet 0 10/25/2023 11/18/2023 Discontinued Comment on above: Please take 1 tablet by mouth at 9 pm and another tablet at 11 pm the day before surgery. NaCl 0.9% 500 mL (1 source) Start: 03-05-20 End: 03-05-20 INTRAVENOUS, at 500 mL/hr, Administer over 1 Hours, ONCE, 1 dose, On Tue03/05/25 at 0900 naloxone hydrochloride 40 mg/ml nasal spray (15 sources) Opioid Antagonist Start: 11-01-19 End: 12-28-19 naloxone 4 mg/actuation nasal spray (NARCAN) Use 1 spray in one nostril as needed for overdose. May repeat every 2 to 3 min in alternating nostrils until medical assistance is available 2 Each 0 11/01/2023 12/28/2023 Discontinued Comment on above: Use 1 spray in one n ostril as needed for overdose. May repeat every 2 to 3 min in alternating nostrils until medical assistance is available neomycin sulfate 500 mg oral tablet (20 sources) Aminoglycoside Antibacterial Start: 08-10-19 End: 11-03-19 take 2 tablets by mouth once daily neomycin 500 mg tablet Indications: Attention to colostomy (HCC) Take two tabs by mouth at 1pm, 3pm, and 11pm the day prior to the surgery. 6 tablet 08/10/2024 11/02/2024 Discontinued (Other) Start: 04-16-2024 take 2 tablets by [facility] once daily neomycin 500 mg tablet Indications: Attention to colostomy (HCC) Take two tabs by mouth at 1pm, 3pm, and 11pm the day prior to the surgery. 6 tablet 04/16/2024 Active omeprazole 40 mg delayed release oral capsule (2 sources) Proton Pump Inhibitor Start: 08-19-2023 End: 08-26-2023 take 1 capsule by mouth once daily omeprazole (PRILOSEC) 40 mg capsule TAKE 1 CAPSULE BY MOUTH EVERY DAY 90 capsule 1 08/19/2023 08/26/2023 Discontinued Comment on above: TAKE 1 CAPSULE BY [facility] EVERY DAY PACLitaxel 200 mg in NaCl 0.9% 573.3333 mL (TAXOL) (1 source) Start: 01-23-2024 End: 01-23-2024 PACLitaxel 200 mg in NaCl 0.9% 573.3333 mL (TAXOL) PACLitaxel 269.5 mg in NaCl 0.9% 584.9167 mL (TAXOL) (2 sources) Start: 12-28-2023 End: 12-28-2023 PACLitaxel 269.5 mg in NaCl 0.9% 584.9167 mL (TAXOL) Start: 12-06-2023 End: 12-06-2023 PACLitaxel 269.5 mg in NaCl 0.9% 584.9167 mL (TAXOL) phenylephrine hydrochloride 25 mg/ml ophthalmic solution (1 source) alpha-1 Adrenergic Agonist Start: 07-06-2022 End: 07-06-2022 PHENYLephrine 2.5 % 1 Drop (AK-DILATE, SAMEER-SYNEPHRINE) polyethylene glycol 3350 01291 mg powder for oral solution (20 sources) Osmotic Laxative Start: 11-01-2023 End: 12-05-2023 polyethylene glycol 3350 17 gram packet Take 1 Packet by mouth once daily. Dissolve dose in 4 - 8 ounces of liquid and take as directed. 20 Each 0 11/01/2023 Active Comment on above: Take 34 g by mouth o nce daily. Dissolve dose in 4 - 8 ounces of liquid and take as directed. Take 1 Packet by martha once daily. Dissolve dose in 4 - 8 ounces of liquid and take as directed. promethazine hydrochloride 25 mg oral tablet (20 sources) Phenothiazine Start: 04-16-2024 End: 11-02-2024 take 1 tablet by mouth every four hours as needed for nausea promethazine (PHENERGAN) 25 mg tablet Indications: Attention to colostomy (HCC) Take 1 tab by mouth every 4 hours as needed for nausea. 5 tablet 08/10/2024 11/02/2024 Discontinued (Adverse Reaction) sucralfate 100 mg/ml oral suspension (3 sources) Aluminum Complex Start: 08-11-2023 End: 08-26-2023 take 10 mL by mouth four times daily sucralfate (CARAFATE) 100 mg/mL suspension Take 10 mL by mouth four times daily. 414 mL 2 08/11/2023 08/26/2023 Discontinued Comment on above: Take 10 mL by mouth four times daily. traMADol hydrochloride 50 mg oral tablet (10 sources) Opioid Agonist Start: 03-03-2016 End: 11-02-2022 take 50 mg by mouth every four hours as needed Tramadol Discontinued 50 MG PO EVERY 4 HOURS NEEDED March 03, 2016 12:00am November 02, 2022 11:03am tropicamide 10 mg/ml ophthalmic solution (1 source) Anticholinergic Start: 07-06-2022 End: 07-06-2022 tropicamide 1 % 1 Drop (MYDRIACYL) Problems Active Problems Problem Classification Problem Date Documented Da te Episodic/Chronic Abdominal pain (5 sources) Right upper quadrant pain; Translations: [Right upper quadrant pain] 12-02-2022 Episodic Acute myocardial infarction (1 source) Non-ST elevation (NSTEMI) myocardial infarction; Translations: [NSTEMI (non-ST elevated myocardial infarction) (HCC)] Onset: 5 Chronic Administrative/social admission (2 sources) Patient encounter status; Translations: [Counseling, unspecified] Onset: 5 03-20-2025 Episodic Cancer of ovary (20 sources) Malignant neoplasm of left ovary; Translations: [Malignant tumor of ovary] Onset: 4 08-21-2023 Chronic Cataract (20 sources) Bilateral senile combined form cataracts of eyes; Translations: [Combined forms of age-related cataract, bilateral] Onset: 8 Chronic Coagulation and hemorrhagic disorders (20 sources) Platelet count below reference range; Translations: [Thrombocytopenia, unspecified] Onset: 4 09-16-2023 Chronic Complications of surgical procedures or medical care (20 sources) 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 chemotherapy; Translations: [Antineoplastic chemotherapy induced anemia] Onset: 4 10-07-2023 Chronic Deficiency and other anemia (20 sources) Anemia; Translations: [Anemia in stage 3a chronic kidney disease (HCC)] Onset: 5 02-13-2025 Chronic Deficiency and other anemia (1 source) Anemia in chronic kidney disease; Translations: [Anemia in stage 3a chronic kidney disease (HCC)] Onset: 5 Chronic Deficiency and other anemia (1 source) Anemia due to medication; Translations: [Other specified anemias] 10-13-2023 Episodic Deficiency and other anemia (2 sources) Macrocytic anemia; Translations: [Nutritional anemia, unspecified] 03-19-2024 Episodic Deficiency and other anemia (16 sources) Anemia; Translations: [Anemia, unspecified] 03-20-2024 Episodic Deficiency and other anemia (2 sources) Microcytic anemia; Translations: [Iron deficiency anemia, unspecified] 03-08-2025 Episodic Deficiency and other anemia (1 source) Anemia, unspecified; Translations: [Anemia, unspecified type] Onset: 5 Episodic Deficiency and other anemia (1 source) Iron deficiency anemia, unspecified; Translations: [Microcytic anemia] Onset: 5 Episodic Deficiency and other anemia (1 source) Deficiency and other anemia; Translations: [Anemia in stage 3a chronic kidney disease (HCC)] Onset: 5 Esophageal disorders (20 sources) Gastroesophageal reflux disease; Translations: [Gastro-esophageal reflux disease without esophagitis] Onset: 5 08-27-2024 Chronic Essential hypertension (20 sources) Benign essential hypertension; Translations: [Essential (primary) hypertension] Onset: 5 02-09-2008 Chronic Genitourinary symptoms and ill-defined conditions (1 source) Proteinuria, unspecified; Translations: [Proteinuria, unspecified type] Onset: 5 Episodic Glaucoma (2 sources) Preglaucoma, unspecified, left eye; Translations: [Preglaucoma, unspecified] Chronic Inflammation; infection of eye (except that caused by tuberculosis or sexually transmitteddisease) (20 sources) Chronic allergic conjunctivitis; Translations: [Other chronic allergic conjunctivitis] Onset: 4 04-11-2014 Chronic Nonspecific chest pain (1 source) Chest pain, unspecified; Translations: [Chest pain, unspecified type] Onset: 5 Episodic Nutritional deficiencies (20 sources) Deficiency of macronutrients; Translations: [Unspecified severe protein-calorie malnutrition] Onset: 3 08-21-2023 Chronic Other eye disorders (20 sources) Bilateral vitreous floaters; Translations: [Other vitreous opacities, bilateral] Onset: 5 Chronic Other gastrointestinal disorders (20 sources) Colostomy present; Translations: [Encounter for attention to colostomy] Onset: 4 04-06-2024 Chronic Other gastrointestinal disorders (20 sources) Malabsorption - iron; Translations: [Intestinal malabsorption, unspecified] Onset: 5 02-13-2025 Chronic Other gastrointestinal disorders (1 source) Encounter for attention to colostomy; Translations: [Attention to colostomy (HCC)] Onset: 5 Chronic Other gastrointestinal disorders (1 source) Intestinal malabsorption, unspecified; Translations: [Iron malabsorption (HCC)] Onset: 5 Chronic Other screening for suspected conditions (not mental disorders or infectious disease) (11 sources) Endometrium thickened; Translations: [Abnormal findings on diagnostic imaging of other specified body structures] 11-02-2022 Chronic Ovarian cyst (10 sources) Cyst of ovary; Translations: [Unspecified ovarian cyst, unspecified side] 11-02-2022 Episodic Residual codes; unclassified (7 sources) Positive genetic finding; Translations: [Genetic susceptibility to other disease] 02-13-2024 Episodic Respiratory failure; insufficiency; arrest (adult) (2 sources) Acute respiratory failure with hypoxia; Translations: [Acute respiratory failure with hypoxia (HCC)] Onset: 5 Episodic Rheumatoid arthritis and related disease (20 sources) Seronegative rheumatoid arthritis; Translations: [Rheumatoid arthritis without rheumatoid factor, unspecified site] Onset: 3 10-19-2023 Chronic Secondary malignancies (1 source) Secondary malignant neoplasm of liver and intrahepatic bile duct; Translations: [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)] Onset: 5 Chronic Unclassified (1 source) Established Patient Onset: 5 Unclassified (2 sources) Ovarian cancer, bilateral (HCC); Translations: [Ovarian cancer, bilateral (HCC)] Onset: 4 Past or Other Problems Problem Classification Problem Date Documented Date Episodic/Chronic Acute and unspecified renal failure (20 sources) Acute renal failure syndrome; Translations: [Acute kidney failure, unspecified] Onset: 10-29-2023 11-01-2023 Episodic Blindness and vision defects (20 sources) Bilateral myopia of eyes; Translations: [Myopia, bilateral] Onset: 04-11-2014 Episodic E Codes: Adverse effects of medical drugs (2 sources) Adverse effect of antineoplastic and immunosuppressive drugs, initial encounter; Translations: [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 chemotherapy] Onset: 10-19-2023 Episodic Other aftercare (20 sources) Drug therapy finding; Translations: [Other rat exterminator (current) drug therapy] Onset: 06-08-2016 Episodic Other female genital disorders (20 sources) Mass of ovary; Translations: [Other noninflammatory disorders of ovary, fallopian tube and broad ligament] Onset: 07-10-2023 Resolved: 07-31-2023 07-31-2023 Episodic Other screening for suspected conditions (not mental disorders or infectious disease) (5 sources) Other specified abnormal findings of blood chemistry; Translations: [Other abnormal blood chemistry] Onset: 05-17-2024 12-06-2023 Episodic Residual codes; unclassified (20 sources) Postoperative state; Translations: [Other specified postprocedural states] Onset: 10-29-2023 11-01-2023 Episodic Residual codes; unclassified (1 source) Genetic susceptibility to other disease; Translations: [BRIP1 gene mutation positive] Onset: 05-17-2024 Episodic Results Test Name Value Interpretation Reference Range [facility]2025 CNPN Normal [facility] Basic metabolic 2000 panelon 05-05-2025 Anion gap [Moles/Vol] 9 mmol/L Normal 8-15 [facility] Comment on above: Order Comment: Speci men Type: BLOOD SPECIMEN Ordering Facility: [facility] Address: [address] [place] [address] Performed By: #### 5 8410-2 #### [facility] CLIA [id number] [address] [place] [address] STATES OF [facility] Calcium [Mass/Vol] 8.3 mg/dL Low 8.5-10.2 [facility] Comment on above: Order Comment: Speci men Type: BLOOD SPECIMEN Ordering Facility: [facility] Address: [address] [place] [address] Performed By: #### 5 8410-2 #### [facility] CLIA [id number] [address] [place] Chloride [Moles/Vol] 102 mmol/L Normal 98-107 [facility] Comment on above: Order Comment: Speci men Type: BLOOD SPECIMEN Ordering Facility: [facility] Address: [address] [place] [address] Performed By: #### 5 8410-2 #### [facility] CLIA [id number] [address] [place] CO2 [Moles/Vol] 29 mmol/L Normal 22-30 [facility] Comment on above: Order Comment: Speci men Type: BLOOD SPECIMEN Ordering Facility: [facility] Address: [address] [place] [address] Performed By: #### 5 8410-2 #### [facility] CLIA [id number] [address] STATES OF [facility] Creatinine [Mass/Vol] 1.34 mg/dL High 0.58-0.96 [facility] Comment on above: Order Comment: Speci men Type: BLOOD SPECIMEN Ordering Facility: [facility] Address: [address] [place] [address] Performed By: #### 5 8410-2 #### [facility] CLIA [id number] [address] eGFRcr SerPlBld CKD-EPI 2020 42 mL/min/1.73m??? Low >=60 [facility] Comment on above: Order Comment: Speci men Type: BLOOD SPECIMEN Ordering Facility: [facility] Address: [address] [place] [address] Result Comment: Fernanda mated Glomerular Filtration Rate (eGFR) is calculated using the 2020 CKD-EPI creatinine equation. This equation utilizes serum creatinine, sex, and age as parameters. The creatinine assay has traceable calibration to isotope dilution-mass spectrometry. Refer to KDIGO guidelines for clinical interpretation. In patients with unstable renal function, e.g. those with acute kidney injury, the eGFR may not accurately reflect actual GFR. Performed By: #### 5 8410-2 #### [facility] CLIA [id number] [address] OF [facility] Glucose [Mass/Vol] 90 mg/dL Normal 74-99 [facility] Comment on above: Order Comment: Kurti betty Type: BLOOD SPECIMEN Ordering Facility: [facility] Address: [address] [place] [address] Result Comment: The [place] [employer] (ADA) provides guidance for cutoff values for fasting glucose and random glucose. The ADA defines fasting as no caloric intake for at least 8 hours. Fasting plasma glucose results between 100 to 125 mg/dL indicate increased risk for diabetes (prediabetes). Fasting plasma glucose results greater than or equal to 126 mg/dL meet the criteria for diagnosis of diabetes. In the absence of unequivocal hyperglycemia, results should be confirmed by repeat testing. In a patient with classic symptoms of hyperglycemia or hyperglycemic crisis, random plasma glucose results greater than or equal to 200 mg/dL meet the criteria for diagnosis of diabetes. Reference: Standards of Medical Care in Diabetes 2016, [place] [employer]. Diabetes Care. 2016.39(Suppl 1). Performed By: #### 5 8410-2 #### [facility] CLIA [id number] [address] [place] [address] [place] Potassium [Moles/Vol] 3.7 mmol/L Normal 3.7-5.1 [facility] Comment on above: Order Comment: Riaz hernández Type: BLOOD SPECIMEN Ordering Facility: [facility] Address: [address] [place] [address] Performed By: #### 5 8410-2 #### [facility] CLIA [id number] [address] STATES OF [facility] Sodium [Moles/Vol] 140 mmol/L Normal 136-144 [facility] Comment on above: Order Comment: Riaz hernández Type: BLOOD SPECIMEN Ordering Facility: [facility] Address: [address] [place] [address] Performed By: #### 5 8410-2 #### [facility] CLIA [id number] [address] [place] Urea nitrogen [Mass/Vol] 39 mg/dL High 7-21 [facility] Comment on above: Order Comment: Riaz hernández Type: BLOOD SPECIMEN Ordering Facility: [facility] Address: [address] [place] [address] Performed By: #### 5 8410-2 #### [facility] CLIA [id number] [address] [place] CBC panel Auto (Bld)on 05-05 Erythrocyte distribution width (RBC) [Ratio] 16.5 % High 11.5-15.0 [facility] Comment on above: Order Comment: Speci men Type: BLOOD SPECIMEN Ordering Facility: [facility] Address: [address] [place] [address] Performed By: #### 5 8410-2 #### [facility] CLIA [id number] [address] OF [facility] Hematocrit (Bld) [Volume fraction] 22.8 % Low 36.0-46.0 [facility] Comment on above: Order Comment: Speci men Type: BLOOD SPECIMEN Ordering Facility: [facility] Address: [address] [place] [address] Performed By: #### 5 8410-2 #### [facility] CLIA [id number] [address] Hemoglobin (Bld) [Mass/Vol] 7.4 g/dL Low 11.5-15.5 [facility] Comment on above: Order Comment: Speci men Type: BLOOD SPECIMEN Ordering Facility: [facility] Address: [address] [place] [address] Performed By: #### 5 8410-2 #### [facility] CLIA [id number] [address] MCH (RBC) [Entitic mass] 34.4 pg High 26.0-34.0 [facility] Comment on above: Order Comment: Speci men Type: BLOOD SPECIMEN Ordering Facility: [facility] Address: [address] [place] [address] Performed By: #### 5 8410-2 #### [facility] CLIA [id number] [address] OF [place] MCHC (RBC) [Mass/Vol] 32.5 g/dL Normal 30.5-36.0 [facility] Comment on above: Order Comment: Speci men Type: BLOOD SPECIMEN Ordering Facility: [facility] Address: [address] [place] [address] Performed By: #### 5 8410-2 #### [facility] CLIA [id number] [address] MCV (RBC) [Entitic vol] 106.0 fL High 80.0-100.0 [facility] Comment on above: Order Comment: Speci men Type: BLOOD SPECIMEN Ordering Facility: [facility] Address: [address] [place] [address] Performed By: #### 5 8410-2 #### [facility] CLIA [id number] [address] [place] Nucleated RBC (Bld) [#/Vol] 10*3/uL Normal <0.01 [facility] Comment on above: Order Comment: Speci men Type: BLOOD SPECIMEN Ordering Facility: [facility] Address: [address] [place] [address] Performed By: #### 5 8410-2 #### [facility] CLIA [id number] [address] [place] Platelet mean volume (Bld) [Entitic vol] 11.6 fL Normal 9.0-12.7 [facility] Comment on above: Order Comment: Speci men Type: BLOOD SPECIMEN Ordering Facility: [facility] Address: [address] [place] [address] Performed By: #### 5 8410-2 #### [facility] CLIA [id number] [address] Platelets (Bld) [#/Vol] 171 10*3/uL Normal 150-400 [facility] Comment on above: Order Comment: Speci men Type: BLOOD SPECIMEN Ordering Facility: [facility] Address: [address] [place] [address] Performed By: #### 5 8410-2 #### [facility] CLIA [id number] [address] [place] RBC (Bld) [#/Vol] 2.15 10*6/uL Low 3.90-5.20 [facility] Comment on above: Order Comment: Speci men Type: BLOOD SPECIMEN Ordering Facility: [facility] Address: [facility] [place] [address] Performed By: #### 5 8410-2 #### [facility] CLIA [id number] 1 [place] [address] [place] WBC (Bld) [#/Vol] 2.64 10*3/uL Low 3.70-11.00 [facility] Comment on above: Order Comment: Speci men Type: BLOOD SPECIMEN Ordering Facility: [facility] Address: [facility] [place] [id number] Performed By: #### 5 8410-2 #### [facility] CLIA [id number] 1 [place] [address] [facility] CNDSon 05-05-2025 CNDS HNO ID: [id number] Author: APRIL YI MD Service: Hospital Medicine Author Type: Physician Type: Discharge Summary Filed: 05/05/2025 14:47 Note Text: DISCHARGE SUMMARY PATIENT NAME: Gasper Reed ADMISSION DATE: 05/04/2025 DISCHARGE DATE: 05/05/2025 ATTENDING PHYSICIAN: April Yi MD Code Status: Full Code Highest Readmission Risk Score: 21 The 30 day readmissions risk score is derived from an internally validated risk model which evaluates patient level characteristics, utilization history, medication orders and lab results up until the day of discharge. Patients with a score of 39 or above are considered highest risk for readmission. Specific patient level drivers will be listed at the bottom of the summary. CONSULTING TEAMS DURING HOSPITALIZATION: None Treatment Team: Attending Provider: April Yi MD Primary Service: GRACIELA CLARK Consulting: Castro Holland MD REASON FOR HOSPITALIZATION: AHRF, CAP, demand ischemia FINAL DIAGNOSIS: AHRF, CAP, demand ischemia Active Hospital Problems Diagnosis POA Acute respiratory failure with hypoxia (HCC) Yes Elevated troponin Yes Resolved Hospital Problems No resolved problems to display. 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 Most likely demand ischemia due to CAP. Improvement to RA w/ Abx. TTE negative for decompensated heart failure. Transitions of Care Critical Issues: JHAVERI MEDICATION CHANGES: see list LABS AND PROCEDURES PENDING AT DISCHARGE: No pending results. PATIENT CONDITION AT DISCHARGE: Stable DISCHARGE DISPOSITION: Home with Self Care Discharge Physical Exam: VITAL SIGNS: BP 127/59 Pulse 71 Temp 36.9 ?C (98.4 ?F) (Oral) Resp 20 Ht 157.5 cm (5' 2) Wt 53.1 kg (117 lb) SpO2 94% BMI 21.40 kg/m? GENERAL: Alert, no distress, cooperative LUNGS: Lungs clear to auscultation, Good diaphragmatic excursion CARDIAC: Normal S1 and S2; no rubs, murmurs, or gallops ABDOMEN: Abdomen soft, non-tender, BS normal, No masses or organomegaly EXTREMITIES: Extremities normal, no deformities, edema, clubbing or skin discoloration. Good capillary refill., No ulcers INFORMATION PROVIDED TO PATIENT: see instructions WOUND/SURGICAL SITE CARE: None DIET: Resume your pre-hospital diet ACTIVITY: Resume pre-hospital activity ALLERGIES Allergen Reactions Erythromycin Diarrhea, GI Upset Abdominal cramping Penicillins Unknown DISCHARGE MEDICATION: Medication List START taking these medications cefdinir 300 mg capsule Commonly known as: OMNICEF Take 1 capsule by mouth once daily for 6 days. doxycycline hyclate 100 mg capsule Commonly known as: VIBRAMYCIN Take 1 capsule by mouth every 12 hours at 6 am and 6 pm for 12 doses. CONTINUE taking these medications atenolol 25 mg tablet Commonly known as: TENORMIN CALCIUM 600 PO cloNIDine HCl 0.1 mg tablet Commonly known as: CATAPRES Take 1 tablet by mouth two times a day. if SBP > 160 and/or DBP > 100. lidocaine-prilocaine 2.5-2.5 % cream Commonly known as: EMLA Apply 60 minutes prior to accessing port lisinopril 40 mg tablet Commonly known as: ZestriL Take 1 tablet by mouth once daily. magnesium oxide 200 mg magnesium Tab ondansetron 8 mg tablet Commonly known as: ZOFRAN Take 1 tablet by mouth every 8 hours as needed for nausea/vomiting. oxybutynin ER 10 mg 24 hr tablet Commonly known as: DITROPAN XL pantoprazole DR 40 mg tablet Commonly known as: PROTONIX TAKE 1 TABLET BY MOUTH EVERY DAY prochlorperazine 10 mg tablet Commonly known as: COMPAZINE Take 1 tablet by mouth every 6 hours as needed. vitamin b complex capsule Where to Get Your Medications These medications were sent to [id number] [place] [address] - [address] [facility] [phone] [address] [address] [place] [address] cefdinir 300 mg capsule doxycycline hyclate 100 mg capsule FUTURE APPOINTMENTS: Follow Up with PCP: Emily Casanova DO The patient's risk for 30-day readmission is determined using the following contributing factors: Predictive Model Details 21% (Moderate) Factor Value Calculated 05/05/2025 05:18 -9% ED Encounter 0 [facility] READMISSION RISK Model 8% Malnutrition 1 7% Hospital Unit [place] 4100 CARD/HF/PD 7% RDW (Max) 17.1 6% diagnosis count 24 6% Length of Stay (d) 1 6% ED visits (365d) 1 -5% Admissions (90d) 1 -5% Observations (365d) 0 -5% procedure count 2 Plan of care discussed with Provider, RN, Patient I have performed the [id number] and relevant services for a total of >30 minutes. SIGNATURE: April Yi MD DATE: May 05, 2025 TIME: 2:45 PM Normal [facility] ECHOon 05-05-2025 Echocardiography Echocardiography Rep ort: Transthoracic Echo [facility] Date of service: 05/05/2025 7:28:46 AM HOSPITAL Ordering physician: APRIL YI Exam indication: Shortness of Breath Technologist: Evgeny Welsh [facility] Interpreting physician: Benja Moore MD PATIENT: Name: MRS. GASPER REED : 1950 Age: 74 years Gender: F History of hypertension and chronic kidney disease. Primary rhythm: sinus. Height: 157.50 cm BSA: 1.52 m Weight: 53.07 kg BMI: 21.4 kg/m Heart rate 83 bpm Blood pressure 123/59 mmHg Color Doppler was utilized to interrogate the cardiac valves assessed and spectral Doppler was utilized to determine the flow velocities and pressure gradients reported in this exam. MEASUREMENTS: Value Indexed Normal LV ID (diastole) 3.6 cm (2D) 2.38 cm/m LV ID (systole) 2.4 cm (2D) 1.57 cm/m IVS, leaflet tips 0.9 cm (2D) Posterior wall thickness 1.0 cm (2D) Left ventricular mass 101 g (2D) 66 g/m LV stroke volume 52 ml (2D biplane) LV end diastolic volume 86 ml (2D biplane) 56.8 ml/m 29<=EDVi<62 LV end systolic volume 34 ml (2D biplane) 22.3 ml/m Ejection Fraction 61 % (2D biplane) EF > 54 FINDINGS: LEFT VENTRICLE The left ventricle is mildly dilated. Left ventricular systolic function is normal globally. Normal left ventricular diastolic function. Mitral annular lateral E/e': 8.3. Mitral annular septal E/e': 11.6. Wall Motion: All scored segments are normal. RIGHT VENTRICLE The right ventricle is normal in size. Right ventricular systolic function is normal. RV systolic tissue Doppler velocity is 12.8 cm/s. Tricuspid annular displacement is 2.4 cm. Estimated right ventricular systolic pressure is not reported due to an insufficient tricuspid regurgitation signal. Estimated right atrial pressure is 3 mmHg based on IVC assessment. RIGHT ATRIUM A venous catheter is noted in the right atrium. Inferior Vena Cava: The inferior vena cava appears normal measuring 1.2 cm. The vessel decreases greater than 50 percent with inspiration. MITRAL VALVE The mitral valve leaflets are structurally normal. There is trace mitral valve regurgitation. The pressure half time is 67 msec. The peak mitral E/A ratio is 1.42. The average mitral E/e' ratio is 9.9. The mitral flow deceleration time is 233 msec. TRICUSPID VALVE The tricuspid valve leaflets are structurally normal. There is trace tricuspid valve regurgitation. AORTIC VALVE The aortic valve cusps are structurally normal. There is no aortic valve regurgitation. Tricuspid aortic valve. PULMONIC VALVE PERICARDIUM There is no pericardial effusion. There is a left pleural effusion. CONCLUSIONS: - Exam indication: Shortness of Breath - The left ventricle is mildly dilated. Left ventricular systolic function is normal. EF = 61 5% (2D biplane) Normal left ventricular diastolic function. - The right ventricle is normal in size. Right ventricular systolic function is normal. Tricuspid annular displacement is 2.4 cm. - There is no pericardial effusion. - The patient has not had a prior CC echocardiographic exam for comparison. * * * Final * * * [facility] [employer] Image : [id number] Normal [facility] Magnesium SerPl-mCncon 05-05 Magnesium [Mass/Vol] 1.5 mg/dL Low 1.7-2.3 [facility] Comment on above: Order Comment: Speci men Type: BLOOD SPECIMEN Ordering Facility: [facility] Address: [address] [place] [address] Performed By: #### 5 8410-2 #### [facility] CLIA [id number] [address] ALLIED HEALTHon 05-04-2025 ALLIED [facility]ALTH HNO ID: [id number] Author: MARJORIE GALAVIZ CT Service: Radiology Author Type: Technologist Type: Allied Health Filed: 05/04/2025 05:40 Note Text: Radiology Service Progress Note PATIENT NAME: Gasper Reed DATE OF SERVICE: May 04, 2025 TIME: 5:40 AM PATIENT IDENTITY VERIFICATION COMPLETED USING TWO (2) IDENTIFIERS: Name and Date of confirmed by patient verbally and Name and Date of confirmed by identification band. FALL SCREENING: Has the patient had 2 falls in the last year or 1 fall with injury or currently using an Ambulatory Assistive Device (Walker, Cane, Wheelchair, Crutches, etc.)? Emergency Room Patient: Screened in ED PATIENT GENDER DATA: Assigned female at . status: : No status: NO. PATIENT RELEVANT IMPLANT DATA REVIEWED: Not Applicable PATIENT PRESENTS WITH AN IMPLANTABLE OR ATTACHED HEAD RIGGER: No RADIOLOGY DEPARTMENT: CT; Exam(s) Completed: Chest. Anesthesia: No PERIPHERAL IV DATA: Inpatient: see LDA documentation SIGNED BY: CLAUDIA Jalloh May 04, 2025 5:40 AM Normal [facility] CBC W Auto Differential pane l (Bld)on 05-04-2025 Basophils (Bld) [#/Vol] 10*3/uL Normal <0.11 [facility] Comment on above: Order Comment: Speci men Type: BLOOD SPECIMENOrdering Facility: [facility] Address: [address] [place] [address] Performed By: #### 5 7021-8 ####[facility] [id number] [place] [address] [place] Basophils/100 WBC (Bld) 0.3 % Normal [facility] Comment on above: Order Comment: Speci men Type: BLOOD SPECIMENOrdering Facility: [facility] Address: [address] [place] [address] Performed By: #### 5 7021-8 ####[facility]ORYCLIA [id number] [place] [address] [place] Differential cell count method Nom (Bld) Auto Normal [facility] Comment on above: Order Comment: Speci men Type: BLOOD SPECIMENOrdering Facility: [facility] Address: [address] [place] [address] Performed By: #### 5 7021-8 ####[facility]ORYCLIA [id number] [place] [address] [place] Eosinophils (Bld) [#/Vol] 10*3/uL Normal <0.46 [facility] Comment on above: Order Comment: Speci men Type: BLOOD SPECIMENOrdering Facility: [facility] Address: [address] [place] [address] Performed By: #### 5 7021-8 ####[facility]ORYCLIA [id number] [place] [address] [place] Eosinophils/100 WBC (Bld) 0.5 % Normal [facility] Comment on above: Order Comment: Speci men Type: BLOOD SPECIMENOrdering Facility: [facility] Address: [address] [place] [address] Performed By: #### 5 7021-8 ####[facility]ORYCLIA [id number] [place] [address] [place] Erythrocyte distribution width (RBC) [Ratio] 16.8 % High 11.5-15.0 [facility] Comment on above: Order Comment: Speci men Type: BLOOD SPECIMENOrdering Facility: [facility] Address: [address] [place] [address] Performed By: #### 5 7021-8 ####[facility]ATORYCLIA [id number] [place] [address] [place] Hematocrit (Bld) [Volume fraction] 24.5 % Low 36.0-46.0 [facility] Comment on above: Order Comment: Speci men Type: BLOOD SPECIMENOrdering Facility: [facility] Address: [address] [place] [address] Performed By: #### 5 7021-8 ####[facility]ATORYCLIA [id number] [place] [address] [place] Hemoglobin (Bld) [Mass/Vol] 7.9 g/dL Low 11.5-15.5 [facility] Comment on above: Order Comment: Speci men Type: BLOOD SPECIMENOrdering Facility: [facility] Address: [address] [place] [address] Performed By: #### 5 7021-8 ####[facility]ATORYCLIA [id number] [place] [address] [place] Immature granulocytes (Bld) [#/Vol] 10*3/uL Normal <0.10 [facility] Comment on above: Order Comment: Speci men Type: BLOOD SPECIMENOrdering Facility: [facility] Address: [address] [place] [address] Performed By: #### 5 7021-8 ####[facility]ATORYCLIA [id number] [place] [address] [place] Immature granulocytes/100 WBC (Bld) 0.5 % Normal [facility] Comment on above: Order Comment: Speci men Type: BLOOD SPECIMENOrdering Facility: [facility] Address: [address] [place] [address] Performed By: #### 5 7021-8 ####[facility]ATORYCLIA [id number] [place] [address] [facility] [place] Lymphocytes (Bld) [#/Vol] 0.23 10*3/uL Low 1.00-4.00 [facility] Comment on above: Order Comment: Speci men Type: BLOOD SPECIMENOrdering Facility: [facility] Address: [address] [place] [address] Performed By: #### 5 7021-8 ####[facility]ATORYCLIA [id number] [address] Lymphocytes/100 WBC (Bld) 6.3 % Normal [facility] Comment on above: Order Comment: Speci men Type: BLOOD SPECIMENOrdering Facility: [facility] Address: [address] [place] [address] Performed By: #### 5 7021-8 ####[facility]ATORYCLIA [id number] [address] MCH (RBC) [Entitic mass] 34.5 pg High 26.0-34.0 [facility] Comment on above: Order Comment: Speci men Type: BLOOD SPECIMENOrdering Facility: [facility] Address: [address] [place] [address] Performed By: #### 5 7021-8 ####[facility]ATORYCLIA [id number] [address] MCHC (RBC) [Mass/Vol] 32.2 g/dL Normal 30.5-36.0 [facility] Comment on above: Order Comment: Speci men Type: BLOOD SPECIMENOrdering Facility: [facility] Address: [address] [place] [address] Performed By: #### 5 7021-8 ####[facility]ATORYCLIA [id number] [address] MCV (RBC) [Entitic vol] 107.0 fL High 80.0-100.0 [facility] Comment on above: Order Comment: Speci men Type: BLOOD SPECIMENOrdering Facility: [facility] Address: [address] [place] [address] Performed By: #### 5 7021-8 ####[facility]ATORYCLIA [id number] [address] Monocytes (Bld) [#/Vol] 0.03 10*3/uL Normal <0.87 [facility] Comment on above: Order Comment: Speci men Type: BLOOD SPECIMENOrdering Facility: [facility] Address: [address] [place] [address] Performed By: #### 5 7021-8 ####[facility]ORATORYCLIA [id number] [place] [address] [place] Monocytes/100 WBC (Bld) 0.8 % Normal [facility] Comment on above: Order Comment: Speci men Type: BLOOD SPECIMENOrdering Facility: [facility] Address: [address] [place] [address] Performed By: #### 5 7021-8 ####[facility]ORATORYCLIA [id number] [place] [address] [place] Neutrophils (Bld) [#/Vol] 3.37 10*3/uL Normal 1.45-7.50 [facility] Comment on above: Order Comment: Speci men Type: BLOOD SPECIMENOrdering Facility: [facility] Address: [address] [place] [address] Performed By: #### 5 7021-8 ####[facility]ORATORYCLIA [id number] [place] [address] [place] Neutrophils/100 WBC (Bld) 91.6 % Normal [facility] Comment on above: Order Comment: Speci men Type: BLOOD SPECIMENOrdering Facility: [facility] Address: [address] [place] [address] Performed By: #### 5 7021-8 ####[facility]ORATORYCLIA [id number] [place] [address] [place] Nucleated RBC (Bld) [#/Vol] 10*3/uL Normal <0.01 [facility] Comment on above: Order Comment: Speci men Type: BLOOD SPECIMENOrdering Facility: [facility] Address: [address] [place] [address] Performed By: #### 5 7021-8 ####[facility]ORATORYCLIA [id number] [place] [address] [place] Nucleated RBC/100 WBC (Bld) [Ratio] 0.0 /100 WBC Normal [facility] Comment on above: Order Comment: Speci men Type: BLOOD SPECIMENOrdering Facility: [facility] Address: [address] [facility] [place] [address] Performed By: #### 5 7021-8 ####[facility]ORATORYCLIA [id number] [place] [address] [place] Platelet mean volume (Bld) [Entitic vol] 10.6 fL Normal 9.0-12.7 [facility] Comment on above: Order Comment: Speci men Type: BLOOD SPECIMENOrdering Facility: [facility] Address: [address] [place] [address] Performed By: #### 5 7021-8 ####[facility]ORATORYCLIA [id number] [place] [address] [place] Platelets (Bld) [#/Vol] 169 10*3/uL Normal 150-400 [facility] Comment on above: Order Comment: Speci men Type: BLOOD SPECIMENOrdering Facility: [facility] Address: [address] [place] [address] Performed By: #### 5 7021-8 ####[facility]ORATORYCLIA [id number] [place] [address] [place] RBC (Bld) [#/Vol] 2.29 10*6/uL Low 3.90-5.20 [facility] Comment on above: Order Comment: Speci men Type: BLOOD SPECIMENOrdering Facility: [facility] Address: [address] [place] [address] Performed By: #### 5 7021-8 ####[facility]ORATORYCLIA [id number] [place] [id number] [place] WBC (Bld) [#/Vol] 3.68 10*3/uL Low 3.70-11.00 [facility] Comment on above: Order Comment: Speci men Type: BLOOD SPECIMENOrdering Facility: [facility] Address: [address] [place] [address] Performed By: #### 5 7021-8 ####[facility]ORATORYCLIA [id number] [place] [id number] [place] CRP SerPl-mCncon 05-04-2025 CRP [Mass/Vol] 2.2 mg/dL High <0.9 [facility] Comment on above: Order Comment: Speci men Type: BLOOD SPECIMENOrdering Facility: [facility] Address: [address] [place] [address] Performed By: #### 1 988-5, [id number] ####[facility] LABORATORYCLIA [id number] [place] [address] [place] CTA CHEST (NON GATED) W IVCO N PEon 05-04-2025 CTA CHEST (NON GATED) W IVCON PE * * *Final Report* * * DATE OF EXAM: May 04 2025 5:56AM [facility] 0564 - CTA CHEST (NON GATED) W IVCON PE / PROCEDURE REASON: Pulmonary embolism (PE) suspected, high prob * * * * Physician Interpretation * * * * EXAMINATION: CHEST CTA (NON GATED) WITH CONTRAST (PULMONARY EMBOLISM PROTOCOL) Clinical History: Concern for pulmonary embolism. Technique: Spiral CT acquisition of the chest from the thoracic inlet to the upper abdomen following IV contrast. Axial 1 and 3 mm thick slices plus coronal and sagittal reformatted images. MQ: CTCP_5 Contrast: 80 mL Omnipaque [address] Radiation dose: Integrated Dose-length product (DLP) for this visit = 271 mGy*cm CT Dose Reduction Employed: Automated exposure control(AEC) and iterative recon CTA: Post-processed images (Maximum intensity Projection (MIP), Volume-rendered (VR), or Surface shaded display images (SSD) were created, reviewed and archived. Comparison: CT chest 03/05/2025 RESULT: Limitations: None. Evaluation for thromboembolic disease: - Right heart chambers: No thromboembolic disease. - Main pulmonary arteries: No thromboembolic disease. - Lobar pulmonary arteries: No thromboembolic disease. - Segmental pulmonary arteries: No thromboembolic disease. - Subsegmental pulmonary arteries: No thromboembolic disease. - Additional pulmonary artery findings: The main pulmonary artery is normal in caliber. Lines, tubes, and devices: None. Lung parenchyma and airways: Bilateral lower lobe consolidative opacities adjacent to pleural effusions. Diffuse groundglass opacities throughout all 5 lobes with interlobular septal thickening. No suspicious nodule visualized in the aerated portions of the lungs. Pleural space: Moderate bilateral pleural effusions. Small amount of fluid tracking the right major fissure. No pneumothorax. Lower neck, lymph nodes, and mediastinum: The imaged thyroid gland is normal. No suspicious lymphadenopathy in the supraclavicular, axillary, mediastinal, or hilar regions. Heart, pericardium, and thoracic vessels: The thoracic aorta is normal in caliber. No thoracic aortic dissection. The cardiac chambers are normal in size. Mild left main and LAD coronary artery atherosclerotic calcifications are noted, although the study is not optimized for coronary assessment. No pericardial effusion or thickening. Bones and soft tissues: Multilevel degenerative disc disease with concurrent anterior bridging syndesmophytes. No significant chest wall soft tissue abnormality. Upper abdomen: Please refer to the separately reported abdominopelvic CT for additional findings. Localizer images: No additional findings. IMPRESSION: No pulmonary embolism. CHF with pulmonary edema and moderate bilateral pleural effusions; superimposed infection cannot be excluded. Electro Mechanical Engineer: PAO Transcribe Date/Time: May 04 2025 6:56A Dictated by : MARY PEACE DO This examination was interpreted and the report reviewed and electronically signed by: MARY PEACE DO on May 04 2025 7:04AM EST [id number] Normal [facility] Comprehensive metabolic 2000 panelon 05-04-2025 Albumin [Mass/Vol] 3.7 g/dL Low 3.9-4.9 [facility] Comment on above: Order Comment: Speci men Type: BLOOD SPECIMENOrdering Facility: [facility] Address: [address] [place] [address] Performed By: #### L [id number], 06652-7, 71452-7 ####[facility] LABORATORYCLIA [id number] [place] [address] [place] ALP [Catalytic activity/Vol] 214 U/L High 34-123 [facility] Comment on above: Order Comment: Speci men Type: BLOOD SPECIMENOrdering Facility: [facility] Address: [address] [place] [address] Performed By: #### L [id number], 68196-8, 09706-3 ####ARCHER LABORATORYCLIA [id number] [place] [address] [place] ALT [Catalytic activity/Vol] 96 U/L High 7-38 [facility] Comment on above: Order Comment: Speci men Type: BLOOD SPECIMENOrdering Facility: [facility] Address: [address] [facility] [place] [address] Performed By: #### L [id number], 27113-8, 09262-7 ####NAV[facility]O LABORATORYCLIA [id number] [address] STATES OF [facility] Anion gap [Moles/Vol] 12 mmol/L Normal 8-15 [facility] Comment on above: Order Comment: Speci men Type: BLOOD SPECIMENOrdering Facility: [facility] Address: [address] [place] [address] Performed By: #### L [id number], 90619-0, 55718-3 ####NAVARRO LABORATORYCLIA [id number] [address] [place] AST [Catalytic activity/Vol] 84 U/L High 13-35 [facility] Comment on above: Order Comment: Speci men Type: BLOOD SPECIMENOrdering Facility: [facility] Address: [address] [place] [address] Performed By: #### L [id number], 68926-8, 88057-3 ####NAVARRO LABORATORYCLIA [id number] [address] [place] Bilirubin [Mass/Vol] 1.2 mg/dL Normal 0.2-1.3 [facility] Comment on above: Order Comment: Speci men Type: BLOOD SPECIMENOrdering Facility: [facility] Address: [address] [place] [address] Performed By: #### L [id number], 09098-9, 61812-0 ####NAVARRO LABORATORYCLIA [id number] [address] STATES OF [facility] Calcium [Mass/Vol] 8.6 mg/dL Normal 8.5-10.2 [facility] Comment on above: Order Comment: Speci men Type: BLOOD SPECIMENOrdering Facility: [facility] Address: [address] [place] [address] Performed By: #### L [id number], 95934-0, 03251-9 ####ARCHER LABORATORYCLIA [id number] [place] [address] [place] Chloride [Moles/Vol] 104 mmol/L Normal 98-107 [facility] Comment on above: Order Comment: Riaz hernández Type: BLOOD SPECIMENOrdering Facility: [facility] Address: [address] [place] [address] Performed By: #### L [id number], 11327-0, 94373-0 ####NAVARRO LABORATORYCLIA [id number] [place] [address] [place] CO2 [Moles/Vol] 21 mmol/L Low 22-30 [facility] Comment on above: Order Comment: Riaz hernández Type: BLOOD SPECIMENOrdering Facility: [facility] Address: [address] [place] [address] Performed By: #### L [id number], 48245-3, 49154-7 ####ARCHER LABORATORYCLIA [id number] [place] [address] [place] Creatinine [Mass/Vol] 1.11 mg/dL High 0.58-0.96 [facility] Comment on above: Order Comment: Riaz hernández Type: BLOOD SPECIMENOrdering Facility: [facility] Address: [address] [place] [address] Performed By: #### L [id number], 08514-9, 50422-7 ####ARCHER LABORATORYCLIA [id number] [place] [address] [place] eGFRcr SerPlBld CKD-EPI 2020 52 mL/min/1.73m??? Low >=60 [facility] Comment on above: Order Comment: Riaz hernández Type: BLOOD SPECIMENOrdering Facility: [facility] Address: [address] [place] [address] Result Comment: Fernanda mated Glomerular Filtration Rate (eGFR) is calculated using the 2020 CKD-EPI creatinine equation. This equation utilizes serum creatinine, sex, and age as parameters. The creatinine assay has traceable calibration to isotope dilution-mass spectrometry. Refer to KDIGO guidelines for clinical interpretation. In patients with unstable renal function, e.g. those with acute kidney injury, the eGFR may not accurately reflect actual GFR. Performed By: #### L [id number], 00929-2, 16850-7 ####ARCHER LABORATORYCLIA [id number] [place] [address] [place] Glucose [Mass/Vol] 111 mg/dL High 74-99 [facility] Comment on above: Order Comment: [facility] Type: BLOOD SPECIMENOrdering Facility: [facility] Address: [address] [place] [address] Result Comment: The [place] Diabetes Association (ADA) provides guidance for cutoff values for fasting glucose and random glucose. The ADA defines fasting as no caloric intake for at least 8 hours. Fasting plasma glucose results between 100 to 125 mg/dL indicate increased risk for diabetes (prediabetes). Fasting plasma glucose results greater than or equal to 126 mg/dL meet the criteria for diagnosis of diabetes. In the absence of unequivocal hyperglycemia, results should be confirmed by repeat testing. In a patient with classic symptoms of hyperglycemia or hyperglycemic crisis, random plasma glucose results greater than or equal to 200 mg/dL meet the criteria for diagnosis of diabetes. Reference: Standards of Medical Care in Diabetes 2016, [place] [employer] Association. Diabetes Care. 2016.39(Suppl 1). Performed By: #### L [id number], 33559-3, 73502-1 ####ARCHER LABORATORYCLIA [id number] [place] [address] [place] Potassium [Moles/Vol] 4.1 mmol/L Normal 3.7-5.1 [facility] Comment on above: Order Comment: Riaz [facility] Type: BLOOD SPECIMENOrdering Facility: [facility] Address: [address] [place] [address] Performed By: #### L [id number], 12316-2, 54862-6 ####ARCHER LABORATORYCLIA [id number] [place] [id number] [place] Protein [Mass/Vol] 5.9 g/dL Low 6.3-8.0 [facility] Comment on above: Order Comment: Riaz hernández Type: BLOOD SPECIMENOrdering Facility: [facility] Address: [address] [place] [address] Performed By: #### L [id number], 87039-4, 06817-0 ####NAVARRO LABORATORYCLIA [id number] [place] [id number] [place] Sodium [Moles/Vol] 137 mmol/L Normal 136-144 [facility] Comment on above: Order Comment: Speci men Type: BLOOD SPECIMENOrdering Facility: [facility] Address: [address] [place] [address] Performed By: #### L [id number], 47498-3, 53079-3 ####NAVARRO LABORATORYCLIA [id number] [place] [id number] [place] Urea nitrogen [Mass/Vol] 33 mg/dL High 7-21 [facility] Comment on above: Order Comment: Speci men Type: BLOOD SPECIMENOrdering Facility: [facility] Address: [address] [place] [address] Performed By: #### L [id number], 20961-4, 64752-7 ####ARCHER LABORATORYCLIA [id number] [place] [id number] [facility] ED NOTEon 05-04-2025 ED NOTE HNO ID: [id number] Author: PING PEREIRA RN Service: Nursing Author Type: Registered Nurse Type: ED Notes Filed: 05/04/2025 13:48 Note Text: Report given to MMT at bedside at this time. Patient stable with no chest pain and heparin infusion continued on transfer. Called and updated MARIA C Weiss at [facility] on infusion rate change with PTTAC. Next PTTAC due to be drawn at 1945. Belongings sent with patients family at bedside on transfer. [facility] ED NOTE HNO ID: [id number] Author: SENG CAR RN Service: Behavioral Health Author Type: Registered Nurse Type: ED Notes Filed: 05/04/2025 12:16 Note Text: Gave report to rafal reyez at [facility]. Called [phone]. Dr. Hayes accepted for NSTEMI. Eta w mmt is 4530-7386. Next ptt due 1320 [facility] ED NOTE HNO ID: [id number] Author: SENG CAR RN Service: Behavioral Health Author Type: Registered Nurse Type: ED Notes Filed: 05/04/2025 09:53 Note Text: EKG repeated. [facility] ED NOTE HNO ID: [id number] Author: SENG CAR RN Service: Behavioral Health Author Type: Registered Nurse Type: ED Notes Filed: 05/04/2025 08:01 Note Text: Medic hiram going to get 2nd iv since will be on heparin gtt. [facility] ED NOTE HNO ID: [id number] Author: SENG CAR RN Service: Behavioral Health Author Type: Registered Nurse Type: ED Notes Filed: 05/04/2025 08:03 Note Text: Dr schrader at bs. Dtr remains at bs. Pt taken in a bedside commode and up to rr -did well, sob but in nad. Remained on the 3lnc, md turned down to 2lcn [facility] ED NOTE HNO ID: [id number] Author: SENG CAR RN Service: Behavioral Health Author Type: Registered Nurse Type: ED Notes Filed: 05/04/2025 08:03 Note Text: Assumed care of pt w report from natalie. Reyez. Pt in rr at this time. Dtr at bs. [facility] ED NOTE HNO ID: [id number] Author: SELMA WALTERS RN Service: Nursing Author Type: Registered Nurse Type: ED Notes Filed: 05/04/2025 07:11 Note Text: Report given to MARIA C Carney [facility] ED NOTE HNO ID: [id number] Author: PHONG PENA RN Service: ? Author Type: Registered Nurse Type: ED Notes Filed: 05/04/2025 04:18 Note Text: Pt arrives to ED from home with c/o Shortness of Breath and chest pressure for the past few days worsening tonight. Pt states she started having a cough tonight. [facility] ED PROGRESS NOTE (PROVIDER)o n 05-04-2025 ED PROGRESS NOTE (PROVIDER) HNO ID: [id number] Author: BART SCHRADER DO Service: Emergency Medicine Author Type: Physician Type: ED PROGRESS NOTE (PROVIDER) Filed: 05/04/2025 08:18 Note Text: ED CONTINUATION OF CARE NOTE Code Status: Full Code Assumed care from: Dr. Ayala Presentation / Findings / Interventions / Plan / Items to Follow Up: Is a 74-year-old female who is presenting to the emergency department with shortness of breath, worsening orthopnea, wet cough, low-grade fevers and mild chest discomfort at home. Patient does have a history of ovarian cancer for which she is receiving chemotherapy. Workup here does show an elevation in troponin which is increasing. No ischemic changes noted on x-ray however with this elevation we will be started on heparin for possible NSTEMI. No pulmonary embolism was seen on CT scan though she does have bilateral pleural effusions with pulmonary edema. She is given a dose of Lasix for this as well as some antibiotics due to question infection initially. Given her elevation in troponins patient will be transferred to [facility]. At this time she is on 2 L per nasal cannula resting comfortably. No acute distress at the moment. Denies chest pain. Patient accepted to [facility] For further management Clinical Impressions as of 05/04/25 0736 NSTEMI (non-ST elevated myocardial infarction) (HCC) Chest pain, unspecified type Acute respiratory failure with hypoxia (HCC) Results for orders placed or performed during the hospital encounter of 05/04/25 EKG Impression SINUS TACHYCARDIA Reconfirmed by PING AYALA MD ([id number]) on 05/04/2025 6:15:04 AM SIGNATURE: Bart Schrader DO PATIENT NAME: Gasper Reed DATE: May 04, 2025 TIME: 7:36 AM PAGER/CONTACT #: [facility] ED PROV NOTEon 05-04-2025 ED PROV NOTE HNO ID: [id number] Author: PING AYALA MD Service: Emergency Medicine Author Type: Physician Type: ED Provider Notes Filed: 05/04/2025 07:09 Note Text: ED Provider Note Patient Name: Gasper Reed : 1950 SERVICE DATE: 05/04/25 History Patient presents with: Shortness of Breath: Pt arrives to ED from home with c/o Shortness of Breath and chest pressure for the past few days worsening tonight. Pt states she started having a cough tonight. 74-year-old female. From home. Coming today for shortness of breath x 1 week with increasing severity tonight with wet cough noted. Temperature of 100.3 at home. Currently receiving chemotherapy for cancer diagnosis. 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 Nausea and vomiting with chemotherapy and anesthesia Ovarian cancer on left (HCC) PONV (postoperative nausea and vomiting) PAST SURGICAL HISTORY Procedure Laterality Date COLOSTOMY 07/15/2023 transverse loop diverting COLOSTOMY 04/2024 partial colon resection L'SCOPE DX W/WO BRUSHINGS/WASHINGS 07/15/2023 with peritoneal biopsy LAPAROSCOPIC OMENTECTOMY 10/28/2023 LIG/TRNSXJ FLP TUBE ABDL/VAG APPR UNI/BI 07/25/1981 Tubal ligation TONSILLECTOMY AND ADENOIDECTOMY TOTAL ABDOM HYSTERECTOMY 10/28/2023 TOTAL ABDOMINAL HYSTERECT W/WO RMVL TUBE OVARY 10/28/2023 FAMILY HISTORY Problem Relation Age of Onset Osteoporosis Mother smoker other (osteoarthritis) Mother Cancer Mother Coronary Artery Disease Father MA age 40's, age 60's; also smoked and alcoholic Mental illness Sister Renal Disease Sister Cancer Sister other (rheumatoid arthritis) Sister Coronary Artery Disease Brother MA age 49, smoker, recovering alcoholic Breast Cancer Paternal Grandmother late 70's Diabetes Paternal Grandfather Heart Paternal Grandfather Breast Cancer Maternal Aunt age 65 Ovarian cancer Maternal Aunt Social History[1] ALLERGIES Allergen Reactions Erythromycin Diarrhea, GI Upset Abdominal cramping Penicillins Unknown Review of Systems Constitutional: Positive for chills, fatigue and fever. Negative for diaphoresis. HENT: Negative for congestion, ear pain, sinus pain and sore throat. Eyes: Negative for photophobia, pain, redness and visual disturbance. Respiratory: Positive for cough and shortness of breath. Negative for chest tightness. Cardiovascular: Negative for chest pain, palpitations and leg swelling. Gastrointestinal: Negative for abdominal distention, abdominal pain, constipation, diarrhea, nausea and vomiting. Genitourinary: Negative for difficulty urinating, dysuria, flank pain, frequency and urgency. Musculoskeletal: Negative for back pain, neck pain and neck stiffness. Skin: Negative for color change, rash and wound. Neurological: Positive for weakness. Negative for dizziness, syncope, light-headedness and headaches. Psychiatric/Behavioral: Negative for agitation, behavioral problems and confusion. Physical Exam Vitals BP Pulse Temp Temp src Resp SpO2 Weight Height 05/04/2541705/04/2541705/04/2542005/04/2542005/04/2542005/04/2541705/04/2542005/04/25420 196/91 (!) 129 37.4 ?C (99.3 ?F) Oral 22 (!) 83 % 56.9 kg (125 lb 7.1 oz) 1.59 m (5' 2.6) Physical Exam Vitals and nursing note reviewed. Constitutional: Appearance: She is well-developed. She is not diaphoretic. HENT: Head: Normocephalic and atraumatic. Right Ear: External ear normal. Left Ear: External ear normal. Eyes: General: No scleral icterus. Right eye: No discharge. Left eye: No discharge. Conjunctiva/sclera: Conjunctivae normal. Pupils: Pupils are equal, round, and reactive to light. Neck: Vascular: No JVD. Trachea: No tracheal deviation. Cardiovascular: Rate and Rhythm: Regular rhythm. Tachycardia present. Heart sounds: Normal heart sounds. No murmur heard. No friction rub. No gallop. Pulmonary: Effort: Pulmonary effort is normal. No respiratory distress. Breath sounds: No stridor. Examination of the right-lower field reveals rales. Examination of the left-lower field reveals rales. Rales present. No wheezing. Chest: Chest wall: No tenderness. Abdominal: General: Bowel sounds are normal. There is no distension. Palpations: Abdomen is soft. There is no mass. Tenderness: There is no abdominal tenderness. There is no guarding or rebound. Musculoskeletal: General: No tenderness or deformity. Normal range of motion. Cervical back: Normal range of motion and neck supple. Skin: General: Skin is warm. Capillary Refill: Cap (more content not included)... Normal [facility] EKGon 05-04-2025 Electrocardiogram Ventricular Rate : 7 3 BPM Atrial Rate : 73 BPM P-R Interval : 144 ms QRS Duration : 74 ms Q-T Interval : 402 ms QTC Calculation(Bazett) : 442 ms Calculated P [place] : 39 degrees Calculated R [place] : 18 degrees Calculated T [place] : 28 degrees NORMAL SINUS RHYTHM NORMAL ECG Confirmed by BART SCHRADER DO ([id number]) on 05/04/2025 9:41:18 AM NAME : GASPER REED PID : [id number] : 1950 Gender : Female Race : ORD : Procedure Date : May 04 2025 09:37:17 Edit Date : May 04 2025 09:41:19 Diagnosis: NORMAL SINUS RHYTHM NORMAL ECG Confirmed by BART SCHRADER DO ([id number]) on 05/04/2025 9:41:18 AM Test Reason : nstemi Location : 1 : ER 6 Overread By : BART SCHRADER DO Edited By : BART SCHRADER DO Referred By : , Acquired by : jorden [facility] Electrocardiogram Ventricular Rate : 1 10 BPM Atrial Rate : 110 BPM P-R Interval : 138 ms QRS Duration : 66 ms Q-T Interval : 312 ms QTC Calculation(Bazett) : 422 ms Calculated P [place] : 77 degrees Calculated R [place] : 53 degrees Calculated T [place] : 57 degrees SINUS TACHYCARDIA Reconfirmed by PING AYALA MD ([id number]) on 05/04/2025 6:15:04 AM NAME : GASPER REED PID : [id number] : 1950 Gender : Female Race : ORD : Procedure Date : May 04 2025 04:22:38 Edit Date : May 04 2025 06:15:08 Diagnosis: SINUS TACHYCARDIA Reconfirmed by PING AYALA MD ([id number]) on 05/04/2025 6:15:04 AM Test Reason : Location : 1 : ER ED Overread By : PING AYALA MD Edited By : PING AYALA MD Referred By : , Acquired by : steven reyez [facility] HIGH SENSITIVITY TROPONIN To n 05-04-2025 Troponin T.cardiac High sensitivity method [Mass/Vol] 848 ng/L High <12 [facility] Comment on above: Order Comment: Speci men Type: BLOOD SPECIMEN [facility] Address: [address] [place] [address] Performed By: #### 5 8410-2 #### [facility] CLIA [id number] HIGH SENSITIVITY TROPONIN T (INITIAL)on 05-04-2025 Troponin T.cardiac High sensitivity method [Mass/Vol] 663 ng/L High <12 [facility] Comment on above: Order Comment: Speci men Type: BLOOD SPECIMENOrdering Facility: [facility] Address: [address] [place] [address] Performed By: #### L [id number], 95422-2, 13461-1 ####NAVARRO LABORATORYCLIA [id number] [address] HIGH SENSITIVITY TROPONIN T (SECOND)on 05-04-2025 Troponin T.cardiac High sensitivity method [Mass/Vol] 821 ng/L High <12 [facility] Comment on above: Order Comment: Speci men Type: BLOOD SPECIMENOrdering Facility: [facility] Address: [address] [place] [address] Performed By: #### 1 988-5, [id number] ####NAVARRO LABORATORYCLIA [id number] [address] HIGH SENSITIVITY TROPONIN T (THIRD) 3 HRS AFTER INITIALon 05-04-2025 Troponin T.cardiac High sensitivity method [Mass/Vol] 1134 ng/L High <12 [facility] Comment on above: Order Comment: Speci men Type: BLOOD SPECIMENOrdering Facility: [facility] Address: [address] [place] [address] Performed By: #### L [id number] ####NAVARRO LABORATORYCLIA [id number] [place] [address] [facility] HISTORY PHYSICALon HISTORY PHYSICAL HNO ID: [id number] Author: APRIL YI MD Service: Hospital Medicine Author Type: Physician Type: H&P Filed: 05/04/2025 15:51 Note Text: DEPARTMENT OF HOSPITAL MEDICINE HISTORY AND PHYSICAL EXAM SERVICE DATE: 05/04/2025 SERVICE TIME: 3:33 PM Primary Care Physician: Emily Casanova, NIGHT AND WEEKEND COVERAGE: [place] COVERAGE: After 7pm, please call cross cover pager #[phone] Subjective CHIEF COMPLAINT: shortness of breath, cough, fever HPI: 74F hx HTN, ovarian cancer (on chemo), CKD (Cr 1.2), macrocytic anemia p/w fever, cough, and AHRF, found to have troponinemia and BNP elevation w/o EKG changes c/f new CHF w/ demand ischemia. Transferred from [facility]. Had few days of these symptoms. Wet cough. T 100.3 at home. Ongoing chemo for ovarian cancer. Came from home. The following problems are present on admission at this time: Cancer Mets Coagulopathy Weight loss Anemia Autoimmune condition Hypertension Malignant solid tumor Continue current outpatient treatment plan and current medications for these conditions, except where otherwise noted. Onc history: Neoadjuvant chemotherapy with paclitaxel and carboplatin x3 cycles Exploratory laparotomy, lysis of adhesions, total abdominal hysterectomy, bilateral salpingo-oophorectomy with en block rectosigmoid resection, cystoscopy and temporary bilateral ureteral stents (urology) on 10/28/23 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 Nausea and vomiting with chemotherapy and anesthesia Ovarian cancer on left (HCC) PONV (postoperative nausea and vomiting) PAST SURGICAL HISTORY Procedure Laterality Date COLOSTOMY 07/15/2023 transverse loop diverting COLOSTOMY 04/2024 partial colon resection L'SCOPE DX W/WO BRUSHINGS/WASHINGS 07/15/2023 with peritoneal biopsy LAPAROSCOPIC OMENTECTOMY 10/28/2023 LIG/TRNSXJ FLP TUBE ABDL/VAG APPR UNI/BI 07/25/1981 Tubal ligation TONSILLECTOMY AND ADENOIDECTOMY TOTAL ABDOM HYSTERECTOMY 10/28/2023 TOTAL ABDOMINAL HYSTERECT W/WO RMVL TUBE OVARY 10/28/2023 FAMILY HISTORY Problem Relation Age of Onset Osteoporosis Mother smoker other (osteoarthritis) Mother Cancer Mother Coronary Artery Disease Father MA age 40's, age 60's; also smoked and alcoholic Mental illness Sister Renal Disease Sister Cancer Sister other (rheumatoid arthritis) Sister Coronary Artery Disease Brother MA age 49, smoker, recovering alcoholic Breast Cancer Paternal Grandmother late 70's Diabetes Paternal Grandfather Heart Paternal Grandfather Breast Cancer Maternal Aunt age 65 Ovarian cancer Maternal Aunt SOCIAL HISTORY[1] PRIOR TO ADMISSION MEDICATIONS: Prior to Admission Medications Prescriptions Last Dose Informant Patient Reported? Taking? atenolol (TENORMIN) 25 mg tablet Yes Yes Sig: Take 25 mg by mouth as needed (PRN). For high BP calcium carbonate (CALCIUM 600 ORAL) Yes Yes Sig: Take 1 tablet by mouth once daily. cloNIDine HCl (CATAPRES) 0.1 mg tablet No Yes Sig: Take 1 tablet by mouth two times a day. if SBP > 160 and/or DBP > 100. lidocaine-prilocaine (EMLA) 2.5-2.5 % cream No Yes Sig: Apply 60 minutes prior to accessing port lisinopril (ZESTRIL) 40 mg tablet No Yes Sig: Take 1 tablet by mouth once daily. magnesium oxide 200 mg magnesium tab Yes No Sig: Take 1 tablet by mouth as needed. ondansetron (ZOFRAN) 8 mg tablet No Yes Sig: Take 1 tablet by mouth every 8 hours as needed for nausea/vomiting. oxybutynin ER (DITROPAN XL) 10 mg 24 hr tablet Yes Yes Sig: Take 15 mg by mouth once daily. pantoprazole DR (PROTONIX) 40 mg tablet No Yes Sig: TAKE 1 TABLET BY MOUTH EVERY DAY prochlorperazine (COMPAZINE) 10 mg tablet No Yes Sig: Take 1 tablet by mouth every 6 hours as needed. vitamin b complex capsule Yes Yes Sig: Take 1 capsule by mouth once daily. Facility-Administered Medications: None ALLERGIES Allergen Reactions Erythromycin Diarrhea, GI Upset Abdominal cramping Penicillins Unknown REVIEW OF SYSTEM: GENERAL: Fatigue, Fevers RESPIRATORY: Pleuritic chest pain, Cough; , Dyspnea CARDIOVASCULAR: Cough, Shortness of breath GI: No nausea, vomiting, or diarrhea Objective PHYSICAL EXAM: BP 161/95 Pulse 78 Temp (Src) 97.9 (Temporal) Resp 18 Ht 5' 2 (1.58m) Wt 117 lb (53.1kg) SpO2 100% BMI 21.39 kg/(m2). O2 Therapy: Nasal Cannula, Liters (Numeric Only): 2 Physical Exam Performed: GENERAL: Alert, no distress, cooperative LUNGS: Decreased sounds bibasilar. CARDIAC: Normal S1 and S2; no rubs, murmurs, or gallops ABDOMEN: Abdomen soft, non-tender, BS normal, No masses or (more content not included)... Normal [facility] NT-proBNP [facility] 05-04 Natriuretic peptide.B prohormone N-Terminal [Mass/Vol] 5774 pg/mL High <125 [facility] Comment on above: Order Comment: Riaz hernández Type: BLOOD SPECIMENOrdering Facility: [facility] Address: [address] [place] [address] Performed By: #### L [id number], 66948-6, 45815-6 ####ARCHER LABORATORYCLIA [id number] [place] [address] [place] PT panel Coag (PPP)on 2024 INR Coag (PPP) [Relative time] 1.0 {INR} Normal 0.9-1.3 [facility] Comment on above: Order Comment: Riaz hernández Type: BLOOD SPECIMENOrdering Facility: [facility] Address: [address] [place] [address] Result Comment: Estrella min K Antagonist (VKA) Therapeutic Range: INR 2 to 3 (Target INR of 2.5) Note: For patients treated with VKA drugs, such as warfarin, the [place] [employer] 2012 Guideline recommends a therapeutic INR range of 2 to 3 (target INR of 2.5). This recommendation includes high-risk patients with antiphospholipid syndrome with previous arterial or venous thromboembolism, current-generation mechanical or bioprosthetic aortic heart valve replacement. Note: Patients with mechanical aortic valve replacement and additional risk factors for thromboembolic events (atrial fibrillation, previous thromboembolism, LV dysfunction, hypercoagulable conditions) or an older generation mechanical AVR (i.e., ball in-Cage) or any mechanical MVR should have a INR therapeutic range of 2.5 to 3.5 (target INR of 3). Tracie GH, et al. Chest 2012, 141:7S-47S Maame VARGAS et al. [facility] 2017, 70: 252-289 Performed By: #### 3 4528-0, PTTAC ####NAVARRO LABORATORYCLIA [id number] [address] [place] PT Coag (PPP) [Time] 11.1 s Normal 9.7-13.0 [facility] Comment on above: Order Comment: Speci men Type: BLOOD SPECIMENOrdering Facility: [facility] Address: [address] [place] [address] Performed By: #### 3 4528-0, PTTAC ####ARCHER LABORATORYCLIA [id number] [address] PTT, ANTICOAGULANT THERAPYon 05-04-2025 aPTT Coag (PPP) [Time] 26.3 s Normal 23.0-32.4 [facility] Comment on above: Order Comment: Speci men Type: BLOOD SPECIMENOrdering Facility: [facility] Address: [address] [place] [address] Performed By: #### 3 4528-0, PTTAC ####ARCHER LABORATORYCLIA [id number] [address] Procalcitonin SerPl-mCncon 1 Procalcitonin [Mass/Vol] 0.48 ng/mL High <0.09 [facility] Comment on above: Order Comment: Speci men Type: BLOOD SPECIMEN Ordering Facility: [facility] Address: [address] [place] [address] Result Comment: For a guided interpretation of test results, please visit the Change in Procalcitonin Calculator, [email or web address]. Performed By: #### 2 4321-2 #### [facility] CLIA [id number] OF [facility] SEPSIS LACTATE W/ REFLEX (IN ITIAL)on 05-04-2025 Lactate [Moles/Vol] 0.8 mmol/L Normal 0.5-2.0 [facility] Comment on above: Order Comment: Speci men Type: BLOOD SPECIMENOrdering Facility: [facility] Address: [address] [place] [address] Performed By: #### S LACTR ####NAVARRO LABORATORYCLIA [id number] [address] [place] Urinalysis complete panel (U )on 05-04-2025 Bacteria LM.HPF (Urine sed) [#/Area] Few Abnormal None Seen [facility] Comment on above: Order Comment: Speci men Type: URINE SPECIMENOrdering Facility: [facility] Address: [address] [place] [address] Performed By: #### 2 4356-8 ####NAVARRO LABORATORYCLIA [id number] [place] [address] [place] Bilirubin Ql (U) Negative Normal Negative [facility] Comment on above: Order Comment: Speci men Type: URINE SPECIMENOrdering Facility: [facility] Address: [address] [place] [address] Performed By: #### 2 4356-8 ####NAVARRO LABORATORYCLIA [id number] [address] Clarity (Unsp spec) Clear Normal Clear [facility] Comment on above: Order Comment: Speci men Type: URINE SPECIMENOrdering Facility: [facility] Address: [address] [place] [address] Performed By: #### 2 4356-8 ####NAVARRO LABORATORYCLIA [id number] [address] [place] Color (U) Yellow Normal Yellow [facility] Comment on above: Order Comment: Speci men Type: URINE SPECIMENOrdering Facility: [facility] Address: [address] [place] [address] Performed By: #### 2 4356-8 ####NAVARRO LABORATORYCLIA [id number] [address] [place] Glucose Test strip (U) [Mass/Vol] Negative Normal Negative [facility] Comment on above: Order Comment: Speci men Type: URINE SPECIMENOrdering Facility: [facility] Address: [address] [place] [address] Performed By: #### 2 4356-8 ####NAVARRO LABORATORYCLIA [id number] [address] [place] Hemoglobin Ql (U) 2+ Abnormal Negative [facility] Comment on above: Order Comment: Speci men Type: URINE SPECIMENOrdering Facility: [facility] Address: [address] [place] [address] Performed By: #### 2 4356-8 ####NAVARRO LABORATORYCLIA [id number] [place] [address] [facility] Ketones Ql (U) Negative Normal Negative [facility] Comment on above: Order Comment: Speci men Type: URINE SPECIMENOrdering Facility: [facility] Address: [address] [place] [address] Performed By: #### 2 4356-8 ####NAVARRO LABORATORYCLIA [id number] [address] [place] Leukocyte esterase Test strip Ql (U) Negative Normal Negative [facility] Comment on above: Order Comment: Speci men Type: URINE SPECIMENOrdering Facility: [facility] Address: [address] [place] [address] Performed By: #### 2 4356-8 ####NAVARRO LABORATORYCLIA [id number] [place] [address] [place] Nitrite Ql (U) Negative Normal Negative [facility] Comment on above: Order Comment: Speci men Type: URINE SPECIMENOrdering Facility: [facility] Address: [address] [place] [address] Performed By: #### 2 4356-8 ####NAVARRO LABORATORYCLIA [id number] [address] [place] pH (U) 6.0 [pH] Normal 5.0-8.0 [facility] Comment on above: Order Comment: Speci men Type: URINE SPECIMENOrdering Facility: [facility] Address: [address] [place] [address] Performed By: #### 2 4356-8 ####NAVARRO LABORATORYCLIA [id number] [place] [address] [place] Protein (U) [Mass/Vol] 2+ Abnormal Negative [facility] Comment on above: Order Comment: Speci men Type: URINE SPECIMENOrdering Facility: [facility] Address: [address] [place] [address] Performed By: #### 2 4356-8 ####NAVARRO LABORATORYCLIA [id number] [place] [address] [place] RBC LM.HPF (Urine sed) [#/Area] 3-5 /HPF Abnormal 0-3 /HPF [facility] Comment on above: Order Comment: Speci men Type: URINE SPECIMENOrdering Facility: [facility] Address: [address] [place] [address] Performed By: #### 2 4356-8 ####ARCHER LABORATORYCLIA [id number] [address] [place] Specific gravity (U) [Rel density] 1.025 Normal 1.005-1.030 [facility] Comment on above: Order Comment: Speci men Type: URINE SPECIMENOrdering Facility: [facility] Address: [address] [place] [address] Performed By: #### 2 4356-8 ####ARCHER LABORATORYCLIA [id number] [address] Urobilinogen Ql (U) 0.2 EU/dL Normal 0.2-1.0 EU/dL [facility] Comment on above: Order Comment: Speci men Type: URINE SPECIMENOrdering Facility: [facility] Address: [address] [place] [address] Performed By: #### 2 4356-8 ####NAVARRO LABORATORYCLIA [id number] [address] [place] WBC LM.HPF (Urine sed) [#/Area] 0-5 /HPF Normal 0-5 /HPF [facility] Comment on above: Order Comment: Speci men Type: URINE SPECIMENOrdering Facility: [facility] Address: [address] [place] [address] Performed By: #### 2 4356-8 ####NAVARRO LABORATORYCLIA [id number] [address] [place] aPTT PPPon 05-04-2025 aPTT Coag (PPP) [Time] 76.7 s High 23.0-32.4 [facility] Comment on above: Order Comment: Speci men Type: BLOOD SPECIMENOrdering Facility: [facility] Address: [address] [place] [address] Performed By: #### 1 4979-9 ####MELANIE LABORATORYCLIA [id number] [place] [address] [place] Prot 24h Ur-mRateon 05-03-20 25 Protein (24H U) [Mass/Time] 0.14 g/24 Hr Normal <0.15 [facility] Comment on above: Order Comment: Speci men Type: URINE SPECIMENOrdering Facility: [facility] Address: [address] [place] [address] Result Comment: Adul t Proteinuria Categories:<0.15 g/24 hours is considered normal to mildly increased0.15 - 0.50 g/24 hours is considered moderately increased>0.50 g/24 hours is considered severely increasedKDIGO. (2013). KDIGO 2012 Clinical Practice Guideline for the Evaluation and Management of Chronic Kidney Disease. Official Journal of the International Society of Nephrology, 3(1), 1-150. Performed By: #### 2 889-4 ####[facility] LABCLIA [id number] [address] [id number] [place] [address] [place] Protein (24H U) [Mass/Time]o n 05-03-2025 PERIOD (HRS) 24 hr Normal [facility] Comment on above: Order Comment: Speci men Type: URINE SPECIMENOrdering Facility: [facility] Address: [address] [place], [place] [address] Performed By: #### 2 889-4 ####[facility] LABCLIA [id number] [place] [id number] [facility] [id number] [place] [address] [place] Specimen volume (24H U) 0.625 L Normal [facility] Comment on above: Order Comment: Speci men Type: URINE SPECIMENOrdering Facility: [facility] Address: [address] [place] [address] Performed By: #### 2 889-4 ####[facility] LABCLIA [id number] [place] [address] [place] [facility] [id number] [place] [address] [place] CBC W Auto Differential pane l (Bld)on 05-01-2025 Basophils (Bld) [#/Vol] 10*3/uL Normal <0.11 [facility] Comment on above: Order Comment: Speci men Type: BLOOD SPECIMENOrdering Facility: [facility] Address: [address] [place] [address] Performed By: #### 5 7021-8 ####[facility] [id number] [place] [address] [place] Basophils/100 WBC (Bld) 0.3 % Normal [facility] Comment on above: Order Comment: Speci men Type: BLOOD SPECIMENOrdering Facility: [facility] Address: [address] [place] [address] Performed By: #### 5 7021-8 ####[facility] [id number] [place] [address] [place] Differential cell count method Nom (Bld) Auto Normal [facility] Comment on above: Order Comment: Speci men Type: BLOOD SPECIMENOrdering Facility: [facility] Address: [address] [place] [address] Performed By: #### 5 7021-8 ####[facility] [id number] [place] [address] [place] Eosinophils (Bld) [#/Vol] 0.04 10*3/uL Normal <0.46 [facility] Comment on above: Order Comment: Speci men Type: BLOOD SPECIMENOrdering Facility: [facility] Address: [address] [place] [address] Performed By: #### 5 7021-8 ####[facility] JARONAILYNLIA [id number] [place] [address] [place] Eosinophils/100 WBC (Bld) 1.4 % Normal [facility] Comment on above: Order Comment: Speci men Type: BLOOD SPECIMENOrdering Facility: [facility] Address: [address] [place] [address] Performed By: #### 5 7021-8 ####[facility] CENTERHAIA [id number] [place] [address] [place] Erythrocyte distribution width (RBC) [Ratio] 16.8 % High 11.5-15.0 [facility] Comment on above: Order Comment: Speci men Type: BLOOD SPECIMENOrdering Facility: [facility] Address: [address] [place] [address] Performed By: #### 5 7021-8 ####[facility] CENTERA [id number] [place] [address] [place] Hematocrit (Bld) [Volume fraction] 25.2 % Low 36.0-46.0 [facility] Comment on above: Order Comment: Speci men Type: BLOOD SPECIMENOrdering Facility: [facility] Address: [address] [place] [address] Performed By: #### 5 7021-8 ####[facility] COMM[facility] HOSPITALLIA [id number] [place] [address] [place] Hemoglobin (Bld) [Mass/Vol] 8.5 g/dL Low 11.5-15.5 [facility] Comment on above: Order Comment: Speci men Type: BLOOD SPECIMENOrdering Facility: [facility] Address: [address] [place] [address] Performed By: #### 5 7021-8 ####[facility] NAPLESWFLLIA [id number] [place] [address] [place] Immature granulocytes (Bld) [#/Vol] 10*3/uL Normal <0.10 [facility] Comment on above: Order Comment: Speci men Type: BLOOD SPECIMENOrdering Facility: [facility] Address: [address] [place] [address] Performed By: #### 5 7021-8 ####[facility] HOSPITALNICOLETTE [id number] [place] [address] [place] Immature granulocytes/100 WBC (Bld) 0.3 % Normal [facility] Comment on above: Order Comment: Speci men Type: BLOOD SPECIMENOrdering Facility: [facility] Address: [address] [place] [address] Performed By: #### 5 7021-8 ####[facility] [id number] [place] [address] [place] Lymphocytes (Bld) [#/Vol] 0.64 10*3/uL Low 1.00-4.00 [facility] Comment on above: Order Comment: Speci men Type: BLOOD SPECIMENOrdering Facility: [facility] Address: [address] [place] [address] Performed By: #### 5 7021-8 ####[facility] [id number] [place] [address] [place] Lymphocytes/100 WBC (Bld) 22.1 % Normal [facility] Comment on above: Order Comment: Speci men Type: BLOOD SPECIMENOrdering Facility: [facility] Address: [address] [place] [address] Performed By: #### 5 7021-8 ####[facility] CENTERNCLI [id number] [place] [address] [place] MCH (RBC) [Entitic mass] 35.4 pg High 26.0-34.0 [facility] Comment on above: Order Comment: Speci men Type: BLOOD SPECIMENOrdering Facility: [facility] Address: [address] [place] [address] Performed By: #### 5 7021-8 ####[facility]ENTERNCMOUNTAIN [facility] [id number] [place] [address] [place] MCHC (RBC) [Mass/Vol] 33.7 g/dL Normal 30.5-36.0 [facility] Comment on above: Order Comment: Speci men Type: BLOOD SPECIMENOrdering Facility: [facility] Address: [address] [place] [address] Performed By: #### 5 7021-8 ####[facility] [id number] [place] [address] [place] MCV (RBC) [Entitic vol] 105.0 fL High 80.0-100.0 [facility] Comment on above: Order Comment: Speci men Type: BLOOD SPECIMENOrdering Facility: [facility] Address: [address] [place] [address] Performed By: #### 5 7021-8 ####[facility] [id number] [place] [address] [place] Monocytes (Bld) [#/Vol] 0.52 10*3/uL Normal <0.87 [facility] Comment on above: Order Comment: Speci men Type: BLOOD SPECIMENOrdering Facility: [facility] Address: [address] [place] [address] Performed By: #### 5 7021-8 ####[facility] [id number] [place] [address] [place] Monocytes/100 WBC (Bld) 17.9 % Normal [facility] Comment on above: Order Comment: Speci men Type: BLOOD SPECIMENOrdering Facility: [facility] Address: [address] [place] [address] Performed By: #### 5 7021-8 ####[facility] MILLTOWNCLIA [id number] [place] [address] [place] Neutrophils (Bld) [#/Vol] 1.68 10*3/uL Normal 1.45-7.50 [facility] Comment on above: Order Comment: Speci men Type: BLOOD SPECIMENOrdering Facility: [facility] Address: [address] [place] [address] Performed By: #### 5 7021-8 ####[facility] MILLWNCLIA [id number] [place] [address] [place] Neutrophils/100 WBC (Bld) 58.0 % Normal [facility] Comment on above: Order Comment: Speci men Type: BLOOD SPECIMENOrdering Facility: [facility] Address: [address] [place] [address] Performed By: #### 5 7021-8 ####[facility] NAPLESWNCLIA [id number] [place] [address] [place] Nucleated RBC (Bld) [#/Vol] 10*3/uL Normal <0.01 [facility] Comment on above: Order Comment: Speci men Type: BLOOD SPECIMENOrdering Facility: [facility] Address: [address] [place] [address] Performed By: #### 5 7021-8 ####[facility] MILLTOWNCLIA [id number] [place] [address] [place] Nucleated RBC/100 WBC (Bld) [Ratio] 0.0 /100 WBC Normal [facility] Comment on above: Order Comment: Speci men Type: BLOOD SPECIMENOrdering Facility: [facility] Address: [address] [place] [address] Performed By: #### 5 7021-8 ####[facility] MILLWNCLIA [id number] [place] [address] [place] Platelet mean volume (Bld) [Entitic vol] 11.6 fL Normal 9.0-12.7 [facility] Comment on above: Order Comment: Speci men Type: BLOOD SPECIMENOrdering Facility: [facility] Address: [address] [place] [address] Performed By: #### 5 7021-8 ####[facility] CENTERYANIRA [id number] [place] [address] [place] Platelets (Bld) [#/Vol] 146 10*3/uL Low 150-400 [facility] Comment on above: Order Comment: Speci men Type: BLOOD SPECIMENOrdering Facility: [facility] Address: [address] [place] [address] Result Comment: No c lot detected. Performed By: #### 5 7021-8 ####[facility] MED[facility] CENTERYANIRA [id number] [place] [address] [place] RBC (Bld) [#/Vol] 2.40 10*6/uL Low 3.90-5.20 [facility] Comment on above: Order Comment: Speci men Type: BLOOD SPECIMENOrdering Facility: [facility] Address: [address] [place] [address] Performed By: #### 5 7021-8 ####[facility] CENTERYANIRA [id number] [place] [address] [place] WBC (Bld) [#/Vol] 2.90 10*3/uL Low 3.70-11.00 [facility] Comment on above: Order Comment: Speci men Type: BLOOD SPECIMENOrdering Facility: [facility] Address: [address] [place] [address] Performed By: #### 5 7021-8 ####[facility] CENTERNCLIDarryl [id number] [place] [id number] [place] Comprehensive metabolic 2000 panelon 05-01-2025 Albumin [Mass/Vol] 4.1 g/dL Normal 3.9-4.9 [facility] Comment on above: Order Comment: Speci men Type: BLOOD SPECIMENOrdering Facility: [facility] Address: [address] [place] [address] Performed By: #### 2 4323-8, 26423-2 ####[facility] NAPLESWHAIA [id number] [place] [address] [place] ALP [Catalytic activity/Vol] 246 U/L High 34-123 [facility] Comment on above: Order Comment: Speci men Type: BLOOD SPECIMENOrdering Facility: [facility] Address: [address] [place] [address] Performed By: #### 2 4323-8, ####[facility] NAPLESWBANGLIA [id number] [place] [address] [place] ALT [Catalytic activity/Vol] 68 U/L High 7-38 [facility] Comment on above: Order Comment: Speci men Type: BLOOD SPECIMENOrdering Facility: [facility] Address: [address] [place] [address] Performed By: #### 2 4323-8, ####[facility] CENTERHAIA [id number] [place] [address] [place] Anion gap [Moles/Vol] 11 mmol/L Normal 8-15 [facility] Comment on above: Order Comment: Speci men Type: BLOOD SPECIMENOrdering Facility: [facility] Address: [address] [place] [address] Performed By: #### 2 4323-8, 56986-8 ####[facility] CENTERNCLIA [id number] [place] [address] [place] AST [Catalytic activity/Vol] 61 U/L High 13-35 [facility] Comment on above: Order Comment: Speci men Type: BLOOD SPECIMENOrdering Facility: [facility] Address: [address] [place] [address] Performed By: #### 2 4323-8, ####[facility] HOSPITALLIA [id number] [place] [address] [place] Bilirubin [Mass/Vol] 0.6 mg/dL Normal 0.2-1.3 [facility] Comment on above: Order Comment: Speci men Type: BLOOD SPECIMENOrdering Facility: [facility] Address: [address] [place] [address] Performed By: #### 2 4323-8, ####[facility] [id number] [place] [address] [place] Calcium [Mass/Vol] 9.3 mg/dL Normal 8.5-10.2 [facility] Comment on above: Order Comment: Speci men Type: BLOOD SPECIMENOrdering Facility: [facility] Address: [address] [place] [address] Performed By: #### 2 432-8, ####[facility] [id number] [place] [address] [place] Chloride [Moles/Vol] 103 mmol/L Normal 98-107 [facility] Comment on above: Order Comment: Speci men Type: BLOOD SPECIMENOrdering Facility: [facility] Address: [address] [place] [address] Performed By: #### 2 4323-8, ####[facility] [id number] [place] [address] [place] CO2 [Moles/Vol] 24 mmol/L Normal 22-30 [facility] Comment on above: Order Comment: Speci men Type: BLOOD SPECIMENOrdering Facility: [facility] Address: [address] [place] [address] Performed By: #### 2 4323-8, ####[facility] JARONSTARKVILLENCJASE [id number] [place] [address] [place] Creatinine [Mass/Vol] 1.16 mg/dL High 0.58-0.96 [facility] Comment on above: Order Comment: Speci men Type: BLOOD SPECIMENOrdering Facility: [facility] Address: [address] [place] [address] Performed By: #### 2 4323-8, ####[facility] [id number] [place] [address] [place] eGFRcr SerPlBld CKD-EPI 2020 50 mL/min/1.73m??? Low >=60 [facility] Comment on above: Order Comment: Riaz men Type: BLOOD SPECIMENOrdering Facility: [facility] Address: [address] [place] [address] Result Comment: Fernanda mated Glomerular Filtration Rate (eGFR) is calculated using the 2020 CKD-EPI creatinine equation. This equation utilizes serum creatinine, sex, and age as parameters. The creatinine assay has traceable calibration to isotope dilution-mass spectrometry. Refer to KDIGO guidelines for clinical interpretation. In patients with unstable renal function, e.g. those with acute kidney injury, the eGFR may not accurately reflect actual GFR. Performed By: #### 2 4323-8, ####[facility] HOSPITALLIA [id number] [place] [address] [place] Glucose [Mass/Vol] 124 mg/dL High 74-99 [facility] Comment on above: Order Comment: Speci men Type: BLOOD SPECIMENOrdering Facility: [facility] Address: [address] [place] [address] Result Comment: The [place] [employer] (ADA) provides guidance for cutoff values for fasting glucose and random glucose. The ADA defines fasting as no caloric intake for at least 8 hours. Fasting plasma glucose results between 100 to 125 mg/dL indicate increased risk for diabetes (prediabetes).Fasting plasma glucose results greater than or equal to 126 mg/dL meet the criteria for diagnosis of diabetes. In the absence of unequivocal hyperglycemia, results should be confirmed by repeat testing. In a patient with classic symptoms of hyperglycemia or hyperglycemic crisis, random plasma glucose results greater than or equal to 200 mg/dL meet the criteria for diagnosis of diabetes.Reference: Standards of Medical Care in Diabetes 2016, [place] [employer]. Diabetes Care. 2016.39(Suppl 1). Performed By: #### 2 4323-8, ####[facility] [id number] [place] [address] [place] Potassium [Moles/Vol] 3.7 mmol/L Normal 3.7-5.1 [facility] Comment on above: Order Comment: Speci men Type: BLOOD SPECIMENOrdering Facility: [facility] Address: [address] [place] [address] Performed By: #### 2 43238, ####[facility] [id number] [place] [address] [place] Protein [Mass/Vol] 6.2 g/dL Low 6.3-8.0 [facility] Comment on above: Order Comment: Speci men Type: BLOOD SPECIMENOrdering Facility: [facility] Address: [address] [place] [address] Performed By: #### 2 43238, ####[facility] [id number] [place] [address] [place] Sodium [Moles/Vol] 138 mmol/L Normal 136-144 [facility] Comment on above: Order Comment: Speci men Type: BLOOD SPECIMENOrdering Facility: [facility] Address: [address] [place] [address] Performed By: #### 2 4323, ####[facility] MILLTOWNCLIA [id number] [place] [address] [place] Urea nitrogen [Mass/Vol] 34 mg/dL High 7-21 [facility] Comment on above: Order Comment: Speci men Type: BLOOD SPECIMENOrdering Facility: [facility] Address: [address] [place] [address] Performed By: #### 2 4323-8, ####[facility]ENTERNCLIA [id number] [place] [address] [place] Magnesium SerPl-mCncon 05-01 Magnesium [Mass/Vol] 1.7 mg/dL Normal 1.7-2.3 [facility] Comment on above: Order Comment: Speci men Type: BLOOD SPECIMENOrdering Facility: [facility] Address: [address] [place] [address] Performed By: #### 2 4323-8, ####[facility] CENTERNCLIA [id number] [place] [address] [place] CBC W Auto Differential pane l (Bld)on 04-29-2025 Basophils (Bld) [#/Vol] 10*3/uL Normal <0.11 [facility] Comment on above: Order Comment: Speci men Type: BLOOD SPECIMENOrdering Facility: [facility] Address: [address] [place] [address] Performed By: #### 5 7021-8 ####[facility]ENTERNCLIA [id number] [place] [address] [place] Basophils/100 WBC (Bld) 0.3 % Normal [facility] Comment on above: Order Comment: Speci men Type: BLOOD SPECIMENOrdering Facility: [facility] Address: [address] [place] [address] Performed By: #### 5 7021-8 ####[facility] [id number] [place] [address] [place] Differential cell count method Nom (Bld) Auto Normal [facility] Comment on above: Order Comment: Speci men Type: BLOOD SPECIMENOrdering Facility: [facility] Address: [address] [place] [address] Performed By: #### 5 7021-8 ####[facility] [id number] [place] [address] [place] Eosinophils (Bld) [#/Vol] 0.07 10*3/uL Normal <0.46 [facility] Comment on above: Order Comment: Speci men Type: BLOOD SPECIMENOrdering Facility: [facility] Address: [address] [place] [address] Performed By: #### 5 7021-8 ####[facility] [id number] [place] [address] [place] Eosinophils/100 WBC (Bld) 2.2 % Normal [facility] Comment on above: Order Comment: Speci men Type: BLOOD SPECIMENOrdering Facility: [facility] Address: [address] [place] [address] Performed By: #### 5 7021-8 ####[facility] [id number] [place] [address] [place] Erythrocyte distribution width (RBC) [Ratio] 17.1 % High 11.5-15.0 [facility] Comment on above: Order Comment: Speci men Type: BLOOD SPECIMENOrdering Facility: [facility] Address: [address] [place] [address] Performed By: #### 5 7021-8 ####[facility]ENTERNCLI [id number] [place] [address] [place] Hematocrit (Bld) [Volume fraction] 24.0 % Low 36.0-46.0 [facility] Comment on above: Order Comment: Speci men Type: BLOOD SPECIMENOrdering Facility: [facility] Address: [address] [place] [address] Performed By: #### 5 7021-8 ####[facility] CENTERNCNICOLETTE [id number] [place] [address] [place] Hemoglobin (Bld) [Mass/Vol] 8.0 g/dL Low 11.5-15.5 [facility] Comment on above: Order Comment: Speci men Type: BLOOD SPECIMENOrdering Facility: [facility] Address: [address] [place] [address] Performed By: #### 5 7021-8 ####[facility] CENTERNCMOUNT[facility] [id number] [place] [address] [place] Immature granulocytes (Bld) [#/Vol] 10*3/uL Normal <0.10 [facility] Comment on above: Order Comment: Speci men Type: BLOOD SPECIMENOrdering Facility: [facility] Address: [address] [place] [address] Performed By: #### 5 7021-8 ####[facility] CENTERNCLIA [id number] [place] [address] [place] Immature granulocytes/100 WBC (Bld) 0.3 % Normal [facility] Comment on above: Order Comment: Speci men Type: BLOOD SPECIMENOrdering Facility: [facility] Address: [address] [place] [address] Performed By: #### 5 7021-8 ####[facility] CENTERNCLIA [id number] [place] [address] [place] Lymphocytes (Bld) [#/Vol] 0.95 10*3/uL Low 1.00-4.00 [facility] Comment on above: Order Comment: Speci men Type: BLOOD SPECIMENOrdering Facility: [facility] Address: [address] [place] [address] Performed By: #### 5 7021-8 ####[facility] CENTERBANGLIA [id number] [place] [address] [place] Lymphocytes/100 WBC (Bld) 29.9 % Normal [facility] Comment on above: Order Comment: Speci men Type: BLOOD SPECIMENOrdering Facility: [facility] Address: [address] [place] [address] Performed By: #### 5 7021-8 ####[facility] [id number] [place] [address] [place] MCH (RBC) [Entitic mass] 34.9 pg High 26.0-34.0 [facility] Comment on above: Order Comment: Speci men Type: BLOOD SPECIMENOrdering Facility: [facility] Address: [address] [place] [address] Performed By: #### 5 7021-8 ####[facility] [id number] [place] [address] [place] MCHC (RBC) [Mass/Vol] 33.3 g/dL Normal 30.5-36.0 [facility] Comment on above: Order Comment: Speci men Type: BLOOD SPECIMENOrdering Facility: [facility] Address: [address] [place] [address] Performed By: #### 5 7021-8 ####[facility] [id number] [place] [address] [place] MCV (RBC) [Entitic vol] 104.8 fL High 80.0-100.0 [facility] Comment on above: Order Comment: Speci men Type: BLOOD SPECIMENOrdering Facility: [facility] Address: [address] [place] [address] Performed By: #### 5 7021-8 ####[facility] [id number] [place] [address] [place] Monocytes (Bld) [#/Vol] 0.57 10*3/uL Normal <0.87 [facility] Comment on above: Order Comment: Speci men Type: BLOOD SPECIMENOrdering Facility: [facility] Address: [address] [place] [address] Performed By: #### 5 7021-8 ####[facility] MILLWNCLIA [id number] [place] [address] [place] Monocytes/100 WBC (Bld) 17.9 % Normal [facility] Comment on above: Order Comment: Speci men Type: BLOOD SPECIMENOrdering Facility: [facility] Address: [address] [place] [address] Performed By: #### 5 7021-8 ####[facility] JARONSTARKVILLENCLIA [id number] [place] [address] [place] Neutrophils (Bld) [#/Vol] 1.57 10*3/uL Normal 1.45-7.50 [facility] Comment on above: Order Comment: Speci men Type: BLOOD SPECIMENOrdering Facility: [facility] Address: [address] [place] [address] Performed By: #### 5 7021-8 ####[facility] NORTH NAPLESWNCLIA [id number] [place] [address] [place] Neutrophils/100 WBC (Bld) 49.4 % Normal [facility] Comment on above: Order Comment: Speci men Type: BLOOD SPECIMENOrdering Facility: [facility] Address: [address] [place] [address] Performed By: #### 5 7021-8 ####[facility] CENTERNCLIA [id number] [place] [address] [place] Nucleated RBC (Bld) [#/Vol] 10*3/uL Normal <0.01 [facility] Comment on above: Order Comment: Speci men Type: BLOOD SPECIMENOrdering Facility: [facility] Address: [address] [place] [address] Performed By: #### 5 7021-8 ####[facility] DWAINENCLIDarryl [id number] [place] [address] [place] Nucleated RBC/100 WBC (Bld) [Ratio] 0.0 /100 WBC Normal [facility] Comment on above: Order Comment: Speci men Type: BLOOD SPECIMENOrdering Facility: [facility] Address: [address] [place] [address] Performed By: #### 5 7021-8 ####[facility] CENTERNCLIDarryl [id number] [place] [address] [place] Platelet mean volume (Bld) [Entitic vol] 12.2 fL Normal 9.0-12.7 [facility] Comment on above: Order Comment: Speci men Type: BLOOD SPECIMENOrdering Facility: [facility] Address: [address] [place] [address] Performed By: #### 5 7021-8 ####[facility] CENTERNCLIA [id number] [place] [address] [place] Platelets (Bld) [#/Vol] 82 10*3/uL Low 150-400 [facility] Comment on above: Order Comment: Speci men Type: BLOOD SPECIMENOrdering Facility: [facility] Address: [address] [place] [address] Result Comment: No c lot detected. Performed By: #### 5 7021-8 ####[facility]ALL[facility] [id number] [place] [address] [place] RBC (Bld) [#/Vol] 2.29 10*6/uL Low 3.90-5.20 [facility] Comment on above: Order Comment: Speci men Type: BLOOD SPECIMENOrdering Facility: [facility] Address: [address] [place] [address] Performed By: #### 5 7021-8 ####[facility] JARONSTARKVILLEYANIRA [id number] [place] [address] [place] WBC (Bld) [#/Vol] 3.18 10*3/uL Low 3.70-11.00 [facility] Comment on above: Order Comment: Speci men Type: BLOOD SPECIMENOrdering Facility: [facility] Address: [address] [place] [address] Performed By: #### 5 7021-8 ####[facility] CENTERYANIRA [id number] [place] [address] [place] CBC W Auto Differential pane l (Bld)on 04-24-2025 Basophils (Bld) [#/Vol] 10*3/uL Normal <0.11 [facility] Comment on above: Order Comment: Speci men Type: BLOOD SPECIMENOrdering Facility: [facility] Address: [address] [place] [address] Performed By: #### 5 7021-8 ####[facility] CENTERYANIRA [id number] [place] [address] [place] Basophils/100 WBC (Bld) 0.3 % Normal [facility] Comment on above: Order Comment: Speci men Type: BLOOD SPECIMENOrdering Facility: [facility] Address: [address] [place] [address] Performed By: #### 5 7021-8 ####[facility] CENTERHAIA [id number] [address] [place] Differential cell count method Nom (Bld) Auto Normal [facility] Comment on above: Order Comment: Speci men Type: BLOOD SPECIMENOrdering Facility: [facility] Address: [address] [place] [address] Performed By: #### 5 7021-8 ####[facility] JARONWNCLIA [id number] [place] [address] [place] Eosinophils (Bld) [#/Vol] 0.07 10*3/uL Normal <0.46 [facility] Comment on above: Order Comment: Speci men Type: BLOOD SPECIMENOrdering Facility: [facility] Address: [address] [place] [address] Performed By: #### 5 7021-8 ####[facility]ALL[facility] [id number] [place] [address] [place] Eosinophils/100 WBC (Bld) 1.8 % Normal [facility] Comment on above: Order Comment: Speci men Type: BLOOD SPECIMENOrdering Facility: [facility] Address: [address] [place] [address] Performed By: #### 5 7021-8 ####[facility] [id number] [place] [address] [place] Erythrocyte distribution width (RBC) [Ratio] 15.1 % High 11.5-15.0 [facility] Comment on above: Order Comment: Speci men Type: BLOOD SPECIMENOrdering Facility: [facility] Address: [address] [place] [address] Performed By: #### 5 7021-8 ####[facility]ALL[facility] [id number] [place] [address] [place] Hematocrit (Bld) [Volume fraction] 23.7 % Low 36.0-46.0 [facility] Comment on above: Order Comment: Speci men Type: BLOOD SPECIMENOrdering Facility: [facility] Address: [address] [place] [address] Performed By: #### 5 7021-8 ####[facility] CENTERNCLI [id number] [place] [address] [place] Hemoglobin (Bld) [Mass/Vol] 8.1 g/dL Low 11.5-15.5 [facility] Comment on above: Order Comment: Speci men Type: BLOOD SPECIMENOrdering Facility: [facility] Address: [address] [place] [address] Performed By: #### 5 7021-8 ####[facility]ALL[facility] [id number] [place] [address] [place] Immature granulocytes (Bld) [#/Vol] 10*3/uL Normal <0.10 [facility] Comment on above: Order Comment: Speci men Type: BLOOD SPECIMENOrdering Facility: [facility] Address: [address] [place] [address] Performed By: #### 5 7021-8 ####[facility] [id number] [place] [address] [place] Immature granulocytes/100 WBC (Bld) 0.5 % Normal [facility] Comment on above: Order Comment: Speci men Type: BLOOD SPECIMENOrdering Facility: [facility] Address: [address] [place] [address] Performed By: #### 5 7021-8 ####[facility] [id number] [place] [address] [place] Lymphocytes (Bld) [#/Vol] 0.97 10*3/uL Low 1.00-4.00 [facility] Comment on above: Order Comment: Speci men Type: BLOOD SPECIMENOrdering Facility: [facility] Address: [address] [place] [address] Performed By: #### 5 7021-8 ####[facility] [id number] [place] [address] [place] Lymphocytes/100 WBC (Bld) 25.3 % Normal [facility] Comment on above: Order Comment: Speci men Type: BLOOD SPECIMENOrdering Facility: [facility] Address: [address] [place] [address] Performed By: #### 5 7021-8 ####[facility] JARONSTARKVILLEYANIRA [id number] MCH (RBC) [Entitic mass] 35.4 pg High 26.0-34.0 [facility] Comment on above: Order Comment: Speci men Type: BLOOD SPECIMENOrdering Facility: [facility] Address: [address] [place] [address] Performed By: #### 5 7021-8 ####[facility] [id number] [place] [address] [place] MCHC (RBC) [Mass/Vol] 34.2 g/dL Normal 30.5-36.0 [facility] Comment on above: Order Comment: Speci men Type: BLOOD SPECIMENOrdering Facility: [facility] Address: [address] [place] [address] Performed By: #### 5 7021-8 ####[facility] [id number] [place] [address] [place] MCV (RBC) [Entitic vol] 103.5 fL High 80.0-100.0 [facility] Comment on above: Order Comment: Speci men Type: BLOOD SPECIMENOrdering Facility: [facility] Address: [address] [place] [address] Performed By: #### 5 7021-8 ####[facility] [id number] [place] [address] [place] Monocytes (Bld) [#/Vol] 0.35 10*3/uL Normal <0.87 [facility] Comment on above: Order Comment: Speci men Type: BLOOD SPECIMENOrdering Facility: [facility] Address: [address] [place] [address] Performed By: #### 5 7021-8 ####[facility] JARONWNCLIA [id number] [place] [address] [place] Monocytes/100 WBC (Bld) 9.1 % Normal [facility] Comment on above: Order Comment: Speci men Type: BLOOD SPECIMENOrdering Facility: [facility] Address: [address] [place] [address] Performed By: #### 5 7021-8 ####[facility] CENTERBANGLIA [id number] [place] [address] [place] Neutrophils (Bld) [#/Vol] 2.42 10*3/uL Normal 1.45-7.50 [facility] Comment on above: Order Comment: Speci men Type: BLOOD SPECIMENOrdering Facility: [facility] Address: [address] [place] [address] Performed By: #### 5 7021-8 ####[facility] CENTERA [id number] [place] [address] [place] Neutrophils/100 WBC (Bld) 63.0 % Normal [facility] Comment on above: Order Comment: Speci men Type: BLOOD SPECIMENOrdering Facility: [facility] Address: [address] [place] [address] Performed By: #### 5 7021-8 ####[facility] CENTERNCLIA [id number] [place] [address] [place] Nucleated RBC (Bld) [#/Vol] 10*3/uL Normal <0.01 [facility] Comment on above: Order Comment: Speci men Type: BLOOD SPECIMENOrdering Facility: [facility] Address: [address] [place] [address] Performed By: #### 5 7021-8 ####[facility] CENTERNCLIA [id number] [place] [address] [place] Nucleated RBC/100 WBC (Bld) [Ratio] 0.0 /100 WBC Normal [facility] Comment on above: Order Comment: Speci men Type: BLOOD SPECIMENOrdering Facility: [facility] Address: [address] [place] [address] Performed By: #### 5 7021-8 ####[facility] CENTERNCMOUNTAIN [facility] [id number] [place] [address] [place] Platelet mean volume (Bld) [Entitic vol] 11.8 fL Normal 9.0-12.7 [facility] Comment on above: Order Comment: Speci men Type: BLOOD SPECIMENOrdering Facility: [facility] Address: [address] [place] [address] Performed By: #### 5 7021-8 ####[facility] [id number] [place] [address] [place] Platelets (Bld) [#/Vol] 32 10*3/uL Low 150-400 [facility] Comment on above: Order Comment: Speci men Type: BLOOD SPECIMENOrdering Facility: [facility] Address: [address] [place] [address] Result Comment: No c lot detected. Performed By: #### 5 7021-8 ####[facility] [id number] [place] [address] [place] RBC (Bld) [#/Vol] 2.29 10*6/uL Low 3.90-5.20 [facility] Comment on above: Order Comment: Speci men Type: BLOOD SPECIMENOrdering Facility: [facility] Address: [address] [place] [address] Performed By: #### 5 7021-8 ####[facility] CENTERNCMOUNTAIN [facility] [id number] [place] [address] [place] WBC (Bld) [#/Vol] 3.84 10*3/uL Normal 3.70-11.00 [facility] Comment on above: Order Comment: Speci men Type: BLOOD SPECIMENOrdering Facility: [facility] Address: [address] [place] [address] Performed By: #### 5 7021-8 ####[facility] YADIST. VINCENT HOSPITALTOWNCLIA [id number] [place] [address] [place] Cancer Ag125 SerPl-aCncon Cancer Ag 125 Qn 58 [arb'U]/mL High <39 [facility] Comment on above: Order Comment: Speci men Type: BLOOD SPECIMENOrdering Facility: [facility] Address: [address] [place] [address] Result Comment: CA 1 25 test methodology used is the Electrochemiluminescence Immunoassay by [employer]. Results obtained with different methods or kits cannot be used interchangeably.The reference interval is based on the 95th percentile of 240 apparently healthy premenopausal and postmenopausal women. At a cutoff value of 65 U/mL, the test sensitivity to distinguish ovarian carcinoma (FIGO stage I to IV) versus benign gynecological disease is 79%, with a specificity of 82%.Reference: Cancer Antigen 125 (CA 125 II) [package insert V 1.0 [place]ien]. [employer] [facility], [place], [place] (April 2015) Performed By: #### 1 0334-1 ####[facility] LABCLIA [id number] [place] [address] [place] Comprehensive metabolic 2000 panelon 04-24-2025 Albumin [Mass/Vol] 3.8 g/dL Low 3.9-4.9 [facility] Comment on above: Order Comment: Speci men Type: BLOOD SPECIMENOrdering Facility: [facility] Address: [address] [place] [address] Performed By: #### 2 4323-8, 43407-0 ####[facility] CENTERNCLIA [id number] [place] [address] [place] ALP [Catalytic activity/Vol] 221 U/L High 34-123 [facility] Comment on above: Order Comment: Speci men Type: BLOOD SPECIMENOrdering Facility: [facility] Address: [address] [place] [address] Performed By: #### 2 4323-8, ####[facility] YADI TOMA [id number] [place] [address] [place] ALT [Catalytic activity/Vol] 49 U/L High 7-38 [facility] Comment on above: Order Comment: Speci men Type: BLOOD SPECIMENOrdering Facility: [facility] Address: [address] [place] [address] Performed By: #### 2 4323-8, ####[facility] JARONLINDSEYNCNICOLETTEA [id number] [place] [address] [place] Anion gap [Moles/Vol] 15 mmol/L Normal 8-15 [facility] Comment on above: Order Comment: Speci men Type: BLOOD SPECIMENOrdering Facility: [facility] Address: [address] [place] [address] Performed By: #### 2 4323-8, ####[facility] JARONSTARKVILLEHAIA [id number] [place] [address] [place] AST [Catalytic activity/Vol] 51 U/L High 13-35 [facility] Comment on above: Order Comment: Speci men Type: BLOOD SPECIMENOrdering Facility: [facility] Address: [address] [place] [address] Performed By: #### 2 4323-8, ####[facility] CENTERNCLIA [id number] [place] [address] [place] Bilirubin [Mass/Vol] 0.5 mg/dL Normal 0.2-1.3 [facility] Comment on above: Order Comment: Speci men Type: BLOOD SPECIMENOrdering Facility: [facility] Address: [address] [place] [address] Performed By: #### 2 4323-8, ####[facility] YADI MILLTOWNCLIA [id number] [place] [address] [place] Calcium [Mass/Vol] 9.6 mg/dL Normal 8.5-10.2 [facility] Comment on above: Order Comment: Speci men Type: BLOOD SPECIMENOrdering Facility: [facility] Address: [address] [place] [address] Performed By: #### 2 432-8, ####[facility] MILLTOWNCLIA [id number] [place] [address] [place] Chloride [Moles/Vol] 101 mmol/L Normal 98-107 [facility] Comment on above: Order Comment: Speci men Type: BLOOD SPECIMENOrdering Facility: [facility] Address: [address] [place] [address] Performed By: #### 2 432-8, ####[facility] MILLWNCLIA [id number] [place] [address] [place] CO2 [Moles/Vol] 24 mmol/L Normal 22-30 [facility] Comment on above: Order Comment: Speci men Type: BLOOD SPECIMENOrdering Facility: [facility] Address: [address] [place] [address] Performed By: #### 2 4323-8, ####[facility] MILLTOWNCLIA [id number] [place] [address] [place] Creatinine [Mass/Vol] 1.08 mg/dL High 0.58-0.96 [facility] Comment on above: Order Comment: Speci men Type: BLOOD SPECIMENOrdering Facility: [facility] Address: [address] [place] [address] Performed By: #### 2 4323-8, ####[facility] [id number] [place] [address] [place] eGFRcr SerPlBld CKD-EPI 2020 54 mL/min/1.73m??? Low >=60 [facility] Comment on above: Order Comment: Riaz hernández Type: BLOOD SPECIMENOrdering Facility: [facility] Address: [address] [place] [address] Result Comment: Fernanda mated Glomerular Filtration Rate (eGFR) is calculated using the 2020 CKD-EPI creatinine equation. This equation utilizes serum creatinine, sex, and age as parameters. The creatinine assay has traceable calibration to isotope dilution-mass spectrometry. Refer to KDIGO guidelines for clinical interpretation. In patients with unstable renal function, e.g. those with acute kidney injury, the eGFR may not accurately reflect actual GFR. Performed By: #### 2 4323-8, 17233-3 ####[facility] [id number] [place] [address] [place] Glucose [Mass/Vol] 111 mg/dL High 74-99 [facility] Comment on above: Order Comment: Riaz hernández Type: BLOOD SPECIMENOrdering Facility: [facility] Address: [address] [place] [address] Result Comment: The [place] Diabetes Association (ADA) provides guidance for cutoff values for fasting glucose and random glucose. The ADA defines fasting as no caloric intake for at least 8 hours. Fasting plasma glucose results between 100 to 125 mg/dL indicate increased risk for diabetes (prediabetes).Fasting plasma glucose results greater than or equal to 126 mg/dL meet the criteria for diagnosis of diabetes. In the absence of unequivocal hyperglycemia, results should be confirmed by repeat testing. In a patient with classic symptoms of hyperglycemia or hyperglycemic crisis, random plasma glucose results greater than or equal to 200 mg/dL meet the criteria for diagnosis of diabetes.Reference: Standards of Medical Care in Diabetes 2016, [place] [employer] Association. Diabetes Care. 2016.39(Suppl 1). Performed By: #### 2 4323-8, 05194-7 ####[facility] [id number] [place] [address] [place] Potassium [Moles/Vol] 4.4 mmol/L Normal 3.7-5.1 [facility] Comment on above: Order Comment: Speci men Type: BLOOD SPECIMENOrdering Facility: [facility] Address: [address] [place] [address] Performed By: #### 2 4323-8, 01721-4 ####[facility] MILLKAYLEEA [id number] [place] [address] [place] Protein [Mass/Vol] 6.1 g/dL Low 6.3-8.0 [facility] Comment on above: Order Comment: Speci men Type: BLOOD SPECIMENOrdering Facility: [facility] Address: [address] [place] [address] Performed By: #### 2 4323-8, ####[facility] MILLROME [id number] [place] [address] [place] Sodium [Moles/Vol] 140 mmol/L Normal 136-144 [facility] Comment on above: Order Comment: Speci men Type: BLOOD SPECIMENOrdering Facility: [facility] Address: [address] [place] [address] Performed By: #### 2 4323-8, ####[facility] MILLKAYLEEA [id number] [place] [address] [place] Urea nitrogen [Mass/Vol] 34 mg/dL High 7-21 [facility] Comment on above: Order Comment: Speci men Type: BLOOD SPECIMENOrdering Facility: [facility] Address: [address] [place] [address] Performed By: #### 2 4323-8, ####[facility]ERNCLIA [id number] [place] [address] [place] Magnesium [facility] 04-24 Magnesium [Mass/Vol] 1.7 mg/dL Normal 1.7-2.3 [facility] Comment on above: Order Comment: Speci men Type: BLOOD SPECIMENOrdering Facility: [facility] Address: [address] [place] [address] Performed By: #### 2 4323-8, 19220-8 ####[facility]LESWNCLIA [id number] [place] [address] [place] CBC W Auto Differential pane l (Bld)on 04-17-2025 Anisocytosis Ql (Bld) Present Normal [facility] Comment on above: Order Comment: Speci men Type: BLOOD SPECIMENOrdering Facility: [facility] Address: [address] [place] [address] Performed By: #### 1 4196-0 ####[facility] LABORATORYCLIA [id number] [place] [address] [place]#### 44051-7 ####[facility] [id number] [address] LABORATORYCLIA [id number] [place] [address] [place] Basophils (Bld) [#/Vol] 0.00 10*3/uL Normal <0.11 [facility] Comment on above: Order Comment: Speci men Type: BLOOD SPECIMENOrdering Facility: [facility] Address: [address] [place] [address] Performed By: #### 1 4196-0 ####[facility] LABORATORYCLIA [id number] [place] [address] [facility] [place]#### 84430-9 ####[facility] [id number] [address] LABORATORYCLIA [id number] [place] [address] [place] Basophils/100 WBC (Bld) 0.0 % Normal [facility] Comment on above: Order Comment: Speci men Type: BLOOD SPECIMENOrdering Facility: [facility] Address: [address] [place] [address] Performed By: #### 1 4196-0 ####[facility] LABORATORYCLIA [id number] [place] [address] [place]#### 85201-4 ####[facility] MILLTOWNCLIA [id number] [address] LABORATORYCLIA [id number] [place] [address] [place] Differential cell count method Nom (Bld) Manual Normal [facility] Comment on above: Order Comment: Speci men Type: BLOOD SPECIMENOrdering Facility: [facility] Address: [address] [place] [address] Performed By: #### 1 4196-0 ####[facility] LABORATORYCLIA [id number] [address] [place]#### 40660-0 ####[facility]LESWNCLIA [id number] [address] LABORATORYCLIA [id number] [place] [address] [place] Eosinophils (Bld) [#/Vol] 0.02 10*3/uL Normal <0.46 [facility] Comment on above: Order Comment: Speci men Type: BLOOD SPECIMENOrdering Facility: [facility] Address: [address] [place] [address] Performed By: #### 1 4196-0 ####[facility] LABORATORYCLIA [id number] [place] [address] [place]#### 46881-1 ####[facility] MILLWNCLIA [id number] [address] LABORATORYCLIA [id number] [place] [address] [place] Eosinophils/100 WBC (Bld) 1.0 % Normal [facility] Comment on above: Order Comment: Speci men Type: BLOOD SPECIMENOrdering Facility: [facility] Address: [address] [place] [address] Performed By: #### 1 4196-0 ####[facility] LABORATORYCLIA [id number] [place] [address] [place]#### 34476-2 ####[facility] [id number] [address] LABORATORYCLIA [id number] [place] [address] [place] Erythrocyte distribution width (RBC) [Ratio] 15.2 % High 11.5-15.0 [facility] Comment on above: Order Comment: Speci men Type: BLOOD SPECIMENOrdering Facility: [facility] Address: [address] [place] [address] Performed By: #### 1 4196-0 ####[facility] LABORATORYCLIA [id number] [place] [address] [facility] [place]#### 95599-5 ####[facility] NAPLESWNCLIA [id number] [address] LABORATORYCLIA [id number] [place] [address] [place] Hematocrit (Bld) [Volume fraction] 25.2 % Low 36.0-46.0 [facility] Comment on above: Order Comment: Speci men Type: BLOOD SPECIMENOrdering Facility: [facility] Address: [address] [place] [address] Performed By: #### 1 4196-0 ####[facility] LABORATORYCLIA [id number] [place] [address] [place]#### 82579-8 ####[facility] N[facility]LESWFLLIA [id number] [address] LABORATORYCLIA [id number] [place] [address] [place] Hemoglobin (Bld) [Mass/Vol] 8.5 g/dL Low 11.5-15.5 [facility] Comment on above: Order Comment: Speci men Type: BLOOD SPECIMENOrdering Facility: [facility] Address: [address] [place] [address] Performed By: #### 1 4196-0 ####[facility] LABORATORYCLIA [id number] [address] [place]#### 83424-8 ####[facility]ENTERA [id number] [address] LABORATORYCLIA [id number] [place] [address] [place] [facility] Lymphocytes (Bld) [#/Vol] 0.67 10*3/uL Low 1.00-4.00 [facility] Comment on above: Order Comment: Speci men Type: BLOOD SPECIMENOrdering Facility: [facility] Address: [address] [place] [address] Performed By: #### 1 4196-0 ####[facility] LABORATORYCLIA [id number] [address] [place]#### 91244-3 ####[facility]A [id number] [address] LABORATORYCLIA [id number] [place] [address] [place] Lymphocytes/100 WBC (Bld) 34.0 % Normal [facility] Comment on above: Order Comment: Speci men Type: BLOOD SPECIMENOrdering Facility: [facility] Address: [address] [place] [address] Performed By: #### 1 4196-0 ####[facility] LABORATORYCLIA [id number] [place] [address] [facility] [place]#### 35030-6 ####[facility] MILLTOWNCLIA [id number] [address] LABORATORYCLIA [id number] [place] [address] [place] MCH (RBC) [Entitic mass] 35.6 pg High 26.0-34.0 [facility] Comment on above: Order Comment: Speci men Type: BLOOD SPECIMENOrdering Facility: [facility] Address: [address] [place] [address] Performed By: #### 1 4196-0 ####[facility] LABORATORYCLIA [id number] [address]#### 88426-6 ####[facility] NAPLESWNCLIA [id number] [address] LABORATORYCLIA [id number] [place] [address] [place] MCHC (RBC) [Mass/Vol] 33.7 g/dL Normal 30.5-36.0 [facility] Comment on above: Order Comment: Speci men Type: BLOOD SPECIMENOrdering Facility: [facility] Address: [address] [place] [address] Performed By: #### 1 4196-0 ####[facility] LABORATORYCLIA [id number] [place] [address] [place]#### 54341-7 ####[facility]A [id number] [address] LABORATORYCLIA [id number] [place] [address] [place] MCV (RBC) [Entitic vol] 105.4 fL High 80.0-100.0 [facility] Comment on above: Order Comment: Speci men Type: BLOOD SPECIMENOrdering Facility: [facility] Address: [address] [place] [address] Performed By: #### 1 4196-0 ####[facility] LABORATORYCLIA [id number] [address]#### 01734-8 ####[facility] [id number] [address] LABORATORYCLIA [id number] [address] [place] Monocytes (Bld) [#/Vol] 0.04 10*3/uL Normal <0.87 [facility] Comment on above: Order Comment: Speci men Type: BLOOD SPECIMENOrdering Facility: [facility] Address: [address] [place] [address] Performed By: #### 1 4196-0 ####[facility] LABORATORYIA [id number] [address]#### 62467-2 ####[facility] NAPLESWNCLIA [id number] [address] LABORATORYCLIA [id number] [address] [place] Monocytes/100 WBC (Bld) 2.0 % Normal [facility] Comment on above: Order Comment: Speci men Type: BLOOD SPECIMENOrdering Facility: [facility] Address: [address] [place] [address] Performed By: #### 1 4196-0 ####[facility] LABORATORYCLIA [id number] [place] [address] [facility] [place]#### 24779-4 ####[facility] MILLTOWNCLIA [id number] [address] LABORATORYCLIA [id number] [place] [address] [place] Neutrophils (Bld) [#/Vol] 1.23 10*3/uL Low 1.45-7.50 [facility] Comment on above: Order Comment: Speci men Type: BLOOD SPECIMENOrdering Facility: [facility] Address: [address] [place] [address] Performed By: #### 1 4196-0 ####[facility] LABORATORYCLIA [id number] [address]#### 44180-5 ####[facility] [id number] [address] LABORATORYCLIA [id number] [address] Neutrophils/100 WBC (Bld) 63.0 % Normal [facility] Comment on above: Order Comment: Speci men Type: BLOOD SPECIMENOrdering Facility: [facility] Address: [address] [place] [address] Performed By: #### 1 4196-0 ####[facility] LABORATORYCLIA [id number] [place] [address] [facility] [place]#### 73333-1 ####[facility] [id number] [address] LABORATORYCLIA [id number] [place] [address] [place] Nucleated RBC (Bld) [#/Vol] 10*3/uL Normal <0.01 [facility] Comment on above: Order Comment: Speci men Type: BLOOD SPECIMENOrdering Facility: [facility] Address: [address] [place] [address] Performed By: #### 1 4196-0 ####[facility] LABORATORYCLIA [id number] [address] [place]#### 89664-7 ####[facility] NAPLESWFLLIA [id number] [address] LABORATORYCLIA [id number] [place] [address] [place] [facility] Nucleated RBC/100 WBC (Bld) [Ratio] 0.0 /100 WBC Normal [facility] Comment on above: Order Comment: Speci men Type: BLOOD SPECIMENOrdering Facility: [facility] Address: [address] [place] [address] Performed By: #### 1 4196-0 ####[facility] LABORATORYCLIA [id number] [address]#### 32282-1 ####[facility] [id number] [address] LABORATORYCLIA [id number] [address] Platelet mean volume (Bld) [Entitic vol] 10.0 fL Normal 9.0-12.7 [facility] Comment on above: Order Comment: Speci men Type: BLOOD SPECIMENOrdering Facility: [facility] Address: [address] [place] [address] Performed By: #### 1 4196-0 ####[facility] LABORATORYCLIA [id number] [place] [address] [place]#### 09563-7 ####[facility] NAPLESWNCLIA [id number] [address] LABORATORYCLIA [id number] [address] Platelets (Bld) [#/Vol] 95 10*3/uL Low 150-400 [facility] Comment on above: Order Comment: Speci men Type: BLOOD SPECIMENOrdering Facility: [facility] Address: [address] [place] [address] Result Comment: No c lot detected. Performed By: #### 1 4196-0 ####[facility] LABORATORYCLIA [id number] [address]#### 78588-5 ####[facility]A [id number] [address] LABORATORYCLIA [id number] [address] [place] Platelets Estimate (Bld) [#/Vol] Decreased Normal [facility] Comment on above: Order Comment: Speci men Type: BLOOD SPECIMENOrdering Facility: [facility] Address: [address] [place] [address] Performed By: #### 1 4196-0 ####[facility] LABORATORYCLIA [id number] [address]#### 20652-7 ####[facility] [id number] [address] LABORATORYCLIA [id number] [place] [address] [facility] [place] RBC (Bld) [#/Vol] 2.39 10*6/uL Low 3.90-5.20 [facility] Comment on above: Order Comment: Speci men Type: BLOOD SPECIMENOrdering Facility: [facility] Address: [address] [place] [address] Performed By: #### 1 4196-0 ####[facility] LABORATORYCLIA [id number] [place] [address] [place]#### 65303-0 ####[facility] YADI MILLWNCLIA [id number] [address] LABORATORYCLIA [id number] [place] [address] [place] RED CELL MORPH Reviewed: see result s of individual morphologies Normal [facility] Comment on above: Order Comment: Speci men Type: BLOOD SPECIMENOrdering Facility: [facility] Address: [address] [place] [address] Performed By: #### 1 4196-0 ####[facility] LABORATORYCLIA [id number] [place] [address] [place]#### 99142-3 ####[facility]A [id number] [address] LABORATORYIA [id number] [place] [address] [place] WBC (Bld) [#/Vol] 1.96 10*3/uL Low 3.70-11.00 [facility] Comment on above: Order Comment: Speci men Type: BLOOD SPECIMENOrdering Facility: [facility] Address: [address] [place] [address] Performed By: #### 1 4196-0 ####[facility] LABORATORYCLIA [id number] [address] [place]#### 17810-8 ####[facility] YADI MILLTOWNCLIA [id number] [address] LABORATORYCLIA [id number] [place] [address] [place] COPPER BLOODon 04-17-2025 Copper [Mass/Vol] 174 ug/dL High 80-155 [facility] Comment on above: Order Comment: Riaz hernández Type: BLOOD SPECIMENOrdering Facility: [facility] Address: [address] [place] [address] Result Comment: This test was developed, and its performance characteristics determined by the [facility] Department of Pathology and Laboratory Medicine. It has not been cleared or approved by the FDA. The [facility] Department of Pathology and Laboratory Medicine is regulated under CLIA as qualified to perform high-complexity testing. This test is used for clinical purposes. It should not be regarded as investigational or for research. Performed By: #### C OPPER ####[facility] LABCLIA [id number] [place] [address] [place] CRP SerPl-mCncon 04-17-2025 CRP [Mass/Vol] 3.2 mg/dL High <0.9 [facility] Comment on above: Order Comment: Specmayra hernández Type: BLOOD SPECIMENOrdering Facility: [facility] Address: [address] [place] [address] Performed By: #### 3 016-3, 1987-11 ####[facility] LABCLIA [id number] [address] [place] Retics #on 04-17-2025 Reticulocytes (Bld) [#/Vol] Normal [facility] Comment on above: Order Comment: Riaz hernández Type: BLOOD SPECIMENOrdering Facility: [facility] Address: [address] [place] [address] Result Comment: Abso lute Value Below Analyzer Linearity. Performed By: #### 1 4196-0 ####[facility] LABORATORYCLIA [id number] [place] [address] [place]#### 76591-2 ####[facility] MEDICAL CENTERDarryl [id number] [address] STATES [facility] LABORATORYCLIA [id number] [place] [address] [place] Reticulocytes (Bld) [#/Vol]o n 04-17-2025 Reticulocytes/100 RBC (Bld) % Low 0.4-2.0 [facility] Comment on above: Order Comment: Speci men Type: BLOOD SPECIMENOrdering Facility: [facility] Address: [address] [place] [address] Performed By: #### 1 4196-0 ####[facility] LABORATORYCLIA [id number] [place] [address] [place]#### 19757-5 ####[facility] [id number] [address] LABORATORYCLIA [id number] [place] [address] [place] TSH SerPl-aCncon 04-17-2025 TSH Qn 3.470 m[IU]/L Normal 0.270-4.200 [facility] Comment on above: Order Comment: Speci men Type: BLOOD SPECIMENOrdering Facility: [facility] Address: [address] [place] [address] Performed By: #### 3 016-3, 1987-11 ####[facility] LABCLIA [id number] [place] [address] [place] CNPNon 04-12-2025 CNPN Normal [facility] BRCon 04-11-2025 RC Normal [facility] Comment on above: Result Comment: [id number] AP RC TRANSFUSED 04/12/25 1031 Performed By: #### B [facility] #### [facility] [address] [facility]. [place], [place], [address] CBC W Auto Differential pane l (Bld)on 04-11-2025 Basophils (Bld) [#/Vol] 0.03 10*3/uL Normal <0.11 [facility] Comment on above: Order Comment: Speci men Type: BLOOD SPECIMENOrdering Facility: [facility] Address: [address] [place] [address] Performed By: #### 5 7021-8 ####[facility] JARONSTARKVILLENCLIA [id number] [place] [address] [place] Basophils/100 WBC (Bld) 0.5 % Normal [facility] Comment on above: Order Comment: Speci men Type: BLOOD SPECIMENOrdering Facility: [facility] Address: [address] [place] [address] Performed By: #### 5 7021-8 ####[facility]ITALLIA [id number] [place] [address] [place] Differential cell count method Nom (Bld) Auto Normal [facility] Comment on above: Order Comment: Speci men Type: BLOOD SPECIMENOrdering Facility: [facility] Address: [address] [place] [address] Performed By: #### 5 7021-8 ####[facility] [id number] [place] [address] [place] Eosinophils (Bld) [#/Vol] 0.10 10*3/uL Normal <0.46 [facility] Comment on above: Order Comment: Speci men Type: BLOOD SPECIMENOrdering Facility: [facility] Address: [address] [place] [address] Performed By: #### 5 7021-8 ####[facility] MILLWNCLIA [id number] [place] [address] [place] Eosinophils/100 WBC (Bld) 1.6 % Normal [facility] Comment on above: Order Comment: Speci men Type: BLOOD SPECIMENOrdering Facility: [facility] Address: [address] [place] [address] Performed By: #### 5 7021-8 ####[facility] JARONAILYNLIA [id number] [place] [address] [place] Erythrocyte distribution width (RBC) [Ratio] 14.7 % Normal 11.5-15.0 [facility] Comment on above: Order Comment: Speci men Type: BLOOD SPECIMENOrdering Facility: [facility] Address: [address] [place] [address] Performed By: #### 5 7021-8 ####[facility] HOSPITALNICOLETTE [id number] [place] [address] [place] Hematocrit (Bld) [Volume fraction] 21.7 % Low 36.0-46.0 [facility] Comment on above: Order Comment: Speci men Type: BLOOD SPECIMENOrdering Facility: [facility] Address: [address] [place] [address] Performed By: #### 5 7021-8 ####[facility] [id number] [place] [address] [place] Hemoglobin (Bld) [Mass/Vol] 7.1 g/dL Low 11.5-15.5 [facility] Comment on above: Order Comment: Speci men Type: BLOOD SPECIMENOrdering Facility: [facility] Address: [address] [place] [address] Performed By: #### 5 7021-8 ####[facility] CENTERA [id number] [place] [address] [place] Immature granulocytes (Bld) [#/Vol] 0.03 10*3/uL Normal <0.10 [facility] Comment on above: Order Comment: Speci men Type: BLOOD SPECIMENOrdering Facility: [facility] Address: [address] [place] [address] Performed By: #### 5 7021-8 ####[facility] CENTERNCLIA [id number] [place] [address] [place] Immature granulocytes/100 WBC (Bld) 0.5 % Normal [facility] Comment on above: Order Comment: Speci men Type: BLOOD SPECIMENOrdering Facility: [facility] Address: [address] [place] [address] Performed By: #### 5 7021-8 ####[facility]ERNCMOUNT[facility] [id number] [place] [address] [place] Lymphocytes (Bld) [#/Vol] 0.68 10*3/uL Low 1.00-4.00 [facility] Comment on above: Order Comment: Speci men Type: BLOOD SPECIMENOrdering Facility: [facility] Address: [address] [place] [address] Performed By: #### 5 7021-8 ####[facility] [id number] [place] [address] [place] Lymphocytes/100 WBC (Bld) 10.9 % Normal [facility] Comment on above: Order Comment: Speci men Type: BLOOD SPECIMENOrdering Facility: [facility] Address: [address] [place] [address] Performed By: #### 5 7021-8 ####[facility] CENTERNCLI [id number] [place] [address] [place] MCH (RBC) [Entitic mass] 36.2 pg High 26.0-34.0 [facility] Comment on above: Order Comment: Speci men Type: BLOOD SPECIMENOrdering Facility: [facility] Address: [address] [place] [address] Performed By: #### 5 7021-8 ####[facility]ENTERNCMOUNT[facility] [id number] [place] [address] [place] MCHC (RBC) [Mass/Vol] 32.7 g/dL Normal 30.5-36.0 [facility] Comment on above: Order Comment: Speci men Type: BLOOD SPECIMENOrdering Facility: [facility] Address: [address] [place] [address] Performed By: #### 5 7021-8 ####[facility] CENTERYANIRA [id number] [place] [address] [place] MCV (RBC) [Entitic vol] 110.7 fL High 80.0-100.0 [facility] Comment on above: Order Comment: Speci men Type: BLOOD SPECIMENOrdering Facility: [facility] Address: [address] [place] [address] Performed By: #### 5 7021-8 ####[facility]ENTERNCMOUNT[facility] [id number] [place] [address] [place] Monocytes (Bld) [#/Vol] 0.45 10*3/uL Normal <0.87 [facility] Comment on above: Order Comment: Speci men Type: BLOOD SPECIMENOrdering Facility: [facility] Address: [address] [place] [address] Performed By: #### 5 7021-8 ####[facility]ENTERA [id number] [place] [address] [place] Monocytes/100 WBC (Bld) 7.2 % Normal [facility] Comment on above: Order Comment: Speci men Type: BLOOD SPECIMENOrdering Facility: [facility] Address: [address] [place] [address] Performed By: #### 5 7021-8 ####[facility] HOSPITALLIA [id number] [place] [address] [place] Neutrophils (Bld) [#/Vol] 4.95 10*3/uL Normal 1.45-7.50 [facility] Comment on above: Order Comment: Speci men Type: BLOOD SPECIMENOrdering Facility: [facility] Address: [address] [place] [address] Performed By: #### 5 7021-8 ####[facility] HOSPITALLIA [id number] [place] [address] [place] Neutrophils/100 WBC (Bld) 79.3 % Normal [facility] Comment on above: Order Comment: Speci men Type: BLOOD SPECIMENOrdering Facility: [facility] Address: [address] [place] [address] Performed By: #### 5 7021-8 ####[facility] [id number] [place] [address] [place] Nucleated RBC (Bld) [#/Vol] 10*3/uL Normal <0.01 [facility] Comment on above: Order Comment: Speci men Type: BLOOD SPECIMENOrdering Facility: [facility] Address: [address] [place] [address] Performed By: #### 5 7021-8 ####[facility] [id number] [place] [address] [place] Nucleated RBC/100 WBC (Bld) [Ratio] 0.0 /100 WBC Normal [facility] Comment on above: Order Comment: Speci men Type: BLOOD SPECIMENOrdering Facility: [facility] Address: [address] [place] [address] Performed By: #### 5 7021-8 ####[facility] [id number] [place] [address] [place] Platelet mean volume (Bld) [Entitic vol] 9.8 fL Normal 9.0-12.7 [facility] Comment on above: Order Comment: Speci men Type: BLOOD SPECIMENOrdering Facility: [facility] Address: [address] [place] [address] Performed By: #### 5 7021-8 ####[facility] CENTERNCLI [id number] [place] [address] [place] Platelets (Bld) [#/Vol] 224 10*3/uL Normal 150-400 [facility] Comment on above: Order Comment: Speci men Type: BLOOD SPECIMENOrdering Facility: [facility] Address: [address] [place] [address] Performed By: #### 5 7021-8 ####[facility] CENTERNCLIA [id number] [place] [address] [place] RBC (Bld) [#/Vol] 1.96 10*6/uL Low 3.90-5.20 [facility] Comment on above: Order Comment: Speci men Type: BLOOD SPECIMENOrdering Facility: [facility] Address: [address] [place] [address] Performed By: #### 5 7021-8 ####[facility] CENTERNCLIA [id number] [place] [address] [place] WBC (Bld) [#/Vol] 6.24 10*3/uL Normal 3.70-11.00 [facility] Comment on above: Order Comment: Speci men Type: BLOOD SPECIMENOrdering Facility: [facility] Address: [address] [place] [address] Performed By: #### 5 7021-8 ####[facility] CENTERNCLIA [id number] [place] [address] [place] CNPNon 04-11-2025 CNPN Normal [facility] Cancer Ag125 SerPl-aCncon Cancer Ag 125 Qn 69 [arb'U]/mL High <39 [facility] Comment on above: Order Comment: Speci men Type: BLOOD SPECIMENOrdering Facility: [facility] Address: [address] [place] [address] Result Comment: CA 1 25 test methodology used is the Electrochemiluminescence Immunoassay by [employer]. Results obtained with different methods or kits cannot be used interchangeably.The reference interval is based on the 95th percentile of 240 apparently healthy premenopausal and postmenopausal women. At a cutoff value of 65 U/mL, the test sensitivity to distinguish ovarian carcinoma (FIGO stage I to IV) versus benign gynecological disease is 79%, with a specificity of 82%.Reference: Cancer Antigen 125 (CA 125 II) [package insert V 1.0 [place]ien]. [employer], [place], [place] (April 2015) Performed By: #### 1 0334-1 ####[facility] LABCLIA [id number] [place] [address] [place] Comprehensive metabolic 2000 panelon 04-11-2025 Albumin [Mass/Vol] 3.7 g/dL Low 3.9-4.9 [facility] Comment on above: Order Comment: Speci men Type: BLOOD SPECIMENOrdering Facility: [facility] Address: [address] [place] [address] Performed By: #### 1 9123-9, 28521-7 ####[facility] CENTERBANGDarryl [id number] [place] [address] [place] ALP [Catalytic activity/Vol] 140 U/L High 34-123 [facility] Comment on above: Order Comment: Speci men Type: BLOOD SPECIMENOrdering Facility: [facility] Address: [address] [place] [address] Performed By: #### 1 9123-9, 45667-1 ####[facility] HOSPITALNICOLETTEA [id number] [place] [address] [place] ALT [Catalytic activity/Vol] 16 U/L Normal 7-38 [facility] Comment on above: Order Comment: Speci men Type: BLOOD SPECIMENOrdering Facility: [facility] Address: [address] [place] [address] Performed By: #### 1 9123-9, 26050-4 ####[facility] HOSPITALLIA [id number] [place] [address] [place] Anion gap [Moles/Vol] 13 mmol/L Normal 8-15 [facility] Comment on above: Order Comment: Speci men Type: BLOOD SPECIMENOrdering Facility: [facility] Address: [address] [place] [address] Performed By: #### 1 9123-9, 41089-4 ####[facility] CENTERNCLIA [id number] [place] [address] [place] AST [Catalytic activity/Vol] 22 U/L Normal 13-35 [facility] Comment on above: Order Comment: Speci men Type: BLOOD SPECIMENOrdering Facility: [facility] Address: [address] [place] [address] Performed By: #### 1 9123-9, 25234-6 ####[facility] CENTERNCLIA [id number] [place] [address] [place] Bilirubin [Mass/Vol] 0.3 mg/dL Normal 0.2-1.3 [facility] Comment on above: Order Comment: Speci men Type: BLOOD SPECIMENOrdering Facility: [facility] Address: [address] [place] [address] Performed By: #### 1 9123-9, 57690-4 ####[facility] CENTERNCLIA [id number] [place] [address] [place] Calcium [Mass/Vol] 9.6 mg/dL Normal 8.5-10.2 [facility] Comment on above: Order Comment: Speci men Type: BLOOD SPECIMENOrdering Facility: [facility] Address: [address] [place] [address] Performed By: #### 1 9123-9, 21632-8 ####[facility] CENTERNCLIA [id number] [place] [address] [place] Chloride [Moles/Vol] 101 mmol/L Normal 98-107 [facility] Comment on above: Order Comment: Speci men Type: BLOOD SPECIMENOrdering Facility: [facility] Address: [address] [place] [address] Performed By: #### 1 9123-9, 60632-9 ####[facility] JARONWNCLIA [id number] [place] [address] [place] CO2 [Moles/Vol] 25 mmol/L Normal 22-30 [facility] Comment on above: Order Comment: Speci men Type: BLOOD SPECIMENOrdering Facility: [facility] Address: [address] [place] [address] Performed By: #### 1 9123-9, 40392-1 ####[facility] CENTERNCLIA [id number] [place] [address] [place] Creatinine [Mass/Vol] 1.19 mg/dL High 0.58-0.96 [facility] Comment on above: Order Comment: Speci men Type: BLOOD SPECIMENOrdering Facility: [facility] Address: [address] [place] [address] Performed By: #### 1 9123-9, 25690-8 ####[facility] CENTERNCLIA [id number] [place] [address] [place] eGFRcr SerPlBld CKD-EPI 2020 48 mL/min/1.73m??? Low >=60 [facility] Comment on above: Order Comment: Speci men Type: BLOOD SPECIMENOrdering Facility: [facility] Address: [address] [place] [address] Result Comment: Fernanda mated Glomerular Filtration Rate (eGFR) is calculated using the 2020 CKD-EPI creatinine equation. This equation utilizes serum creatinine, sex, and age as parameters. The creatinine assay has traceable calibration to isotope dilution-mass spectrometry. Refer to KDIGO guidelines for clinical interpretation. In patients with unstable renal function, e.g. those with acute kidney injury, the eGFR may not accurately reflect actual GFR. Performed By: #### 1 9123-9, 96008-7 ####[facility] NAPLESWNCLIA [id number] [place] [address] [place] Glucose [Mass/Vol] 124 mg/dL High 74-99 [facility] Comment on above: Order Comment: Speci men Type: BLOOD SPECIMENOrdering Facility: [facility] Address: [address] [place], [place] [address] Result Comment: The [place] Diabetes Association (ADA) provides guidance for cutoff values for fasting glucose and random glucose. The ADA defines fasting as no caloric intake for at least 8 hours. Fasting plasma glucose results between 100 to 125 mg/dL indicate increased risk for diabetes (prediabetes).Fasting plasma glucose results greater than or equal to 126 mg/dL meet the criteria for diagnosis of diabetes. In the absence of unequivocal hyperglycemia, results should be confirmed by repeat testing. In a patient with classic symptoms of hyperglycemia or hyperglycemic crisis, random plasma glucose results greater than or equal to 200 mg/dL meet the criteria for diagnosis of diabetes.Reference: Standards of Medical Care in Diabetes 2016, [place] [employer] Association. Diabetes Care. 2016.39(Suppl 1). Performed By: #### 1 9123-9, 84422-5 ####[facility] NAPLESWNCLIA [id number] [place] [address] [place] Potassium [Moles/Vol] 4.3 mmol/L Normal 3.7-5.1 [facility] Comment on above: Order Comment: Speci men Type: BLOOD SPECIMENOrdering Facility: [facility] Address: [address] [place] [address] Performed By: #### 1 9123-9, 42720-9 ####[facility] NAPLESWNCLIA [id number] [place] [address] [place] Protein [Mass/Vol] 5.9 g/dL Low 6.3-8.0 [facility] Comment on above: Order Comment: Speci men Type: BLOOD SPECIMENOrdering Facility: [facility] Address: [address] [place], [place] [address] Performed By: #### 1 9123-9, 55418-6 ####[facility] NAPLESWNCLIA [id number] [place] [address] [place] Sodium [Moles/Vol] 139 mmol/L Normal 136-144 [facility] Comment on above: Order Comment: Speci men Type: BLOOD SPECIMENOrdering Facility: [facility] Address: [address] [place] [address] Performed By: #### 1 9123-9, 33922-0 ####[facility] MILLTOWNCLIA [id number] [place] [address] [place] Urea nitrogen [Mass/Vol] 35 mg/dL High 7- [facility] Comment on above: Order Comment: Speci men Type: BLOOD SPECIMENOrdering Facility: [facility] Address: [address] [place] [address] Performed By: #### 1 9123-9, 46544-7 ####[facility] CENTERNCLIA [id number] [place] [address] [place] Magnesium SerPl-ncon 04-11 Magnesium [Mass/Vol] 1.7 mg/dL Normal 1.7-2.3 [facility] Comment on above: Order Comment: Speci men Type: BLOOD SPECIMENOrdering Facility: [facility] Address: [address] [place] [address] Performed By: #### 1 9123-9, 82712-0 ####[facility] MILLTOWNCLIA [id number] [place] [address] [place] Type AND Screenon 04-11-2025 ABO and Rh group Nom (Bld) Blood group A Rh(D) positive Normal [facility] Comment on above: Order Comment: PRETR ANSFUSION HGB = 7.1 HCT = 21.7 PERFORMED AT [facility] N 04/12/25 N Y A Performed By: #### B MARAH BLACKMANC #### [facility] [address] [place], [address] CBC W Auto Differential pane l (Bld)on 04-03-2025 Basophils (Bld) [#/Vol] [facility] Basophils/100 WBC (Bld) 0.4 % [facility] Differential cell count method Nom (Bld) Auto [facility] Eosinophils (Bld) [#/Vol] 0.09 10*3/uL [facility] Eosinophils/100 WBC (Bld) 1.7 % [facility] Erythrocyte distribution width (RBC) [Ratio] 14.6 % 11.5 - 15.0 % [facility] Hematocrit (Bld) [Volume fraction] 25.4 % Low 36.0 - 46.0 % [facility] Hemoglobin (Bld) [Mass/Vol] 8.3 g/dL Low 11.5 - 15.5 g/dL [facility] Immature granulocytes (Bld) [#/Vol] 0.03 10*3/uL [facility] Immature granulocytes/100 WBC (Bld) 0.6 % [facility] Interpretation and review of laboratory results Abnormal [facility] Lymphocytes (Bld) [#/Vol] 0.68 10*3/uL Low [facility] Lymphocytes/100 WBC (Bld) 12.7 % [facility] MCH (RBC) [Entitic mass] 36.9 pg High 26.0 - 34.0 pg [facility] MCHC (RBC) [Mass/Vol] 32.7 g/dL 30.5 - 36.0 g/dL [facility] MCV (RBC) [Entitic vol] 112.9 fL High 80.0 - 100.0 fL [facility] Monocytes (Bld) [#/Vol] 0.52 10*3/uL [facility] Monocytes/100 WBC (Bld) 9.7 % [facility] Neutrophils (Bld) [#/Vol] 4.01 10*3/uL [facility] Neutrophils/100 WBC (Bld) 74.9 % [facility] Nucleated RBC (Bld) [#/Vol] [facility] Nucleated RBC/100 WBC (Bld) [Ratio] 0.0 % /100 WBC [facility] Platelet mean volume (Bld) [Entitic vol] 9.7 fL 9.0 - 12.7 fL [facility] Platelets (Bld) [#/Vol] 214 10*3/uL [facility] RBC (Bld) [#/Vol] 2.25 10*6/uL Low 3.90 - 5.2 0 m/uL [facility] WBC (Bld) [#/Vol] 5.35 10*3/uL [facility] Basophils (Bld) [#/Vol] 10*3/uL Normal <0.11 [facility] Comment on above: Order Comment: Speci men Type: BLOOD SPECIMENOrdering Facility: [facility] Address: [address] [place] [address] Performed By: #### 5 7021-8 ####[facility] MILLWNCLIA [id number] [place] [address] [place] Basophils/100 WBC (Bld) 0.4 % Normal [facility] Comment on above: Order Comment: Speci men Type: BLOOD SPECIMENOrdering Facility: [facility] Address: [address] [place] [address] Performed By: #### 5 7021-8 ####[facility] HOSPITALLIA [id number] [place] [address] [place] Differential cell count method Nom (Bld) Auto Normal [facility] Comment on above: Order Comment: Speci men Type: BLOOD SPECIMENOrdering Facility: [facility] Address: [address] [place] [address] Performed By: #### 5 7021-8 ####[facility] MILLTOWNCLIA [id number] [place] [address] [place] Eosinophils (Bld) [#/Vol] 0.09 10*3/uL Normal <0.46 [facility] Comment on above: Order Comment: Speci men Type: BLOOD SPECIMENOrdering Facility: [facility] Address: [address] [place] [address] Performed By: #### 5 7021-8 ####[facility] MILLTOWNCLIA [id number] [place] [address] [place] Eosinophils/100 WBC (Bld) 1.7 % Normal [facility] Comment on above: Order Comment: Speci men Type: BLOOD SPECIMENOrdering Facility: [facility] Address: [address] [place] [address] Performed By: #### 5 7021-8 ####[facility] CENTERNCJASE [id number] [place] [address] [place] Erythrocyte distribution width (RBC) [Ratio] 14.6 % Normal 11.5-15.0 [facility] Comment on above: Order Comment: Speci men Type: BLOOD SPECIMENOrdering Facility: [facility] Address: [address] [place] [address] Performed By: #### 5 7021-8 ####[facility] CENTERNCJASE [id number] [place] [address] [place] Hematocrit (Bld) [Volume fraction] 25.4 % Low 36.0-46.0 [facility] Comment on above: Order Comment: Speci men Type: BLOOD SPECIMENOrdering Facility: [facility] Address: [address] [place] [address] Performed By: #### 5 7021-8 ####[facility] CENTERNCLI [id number] [place] [address] [place] Hemoglobin (Bld) [Mass/Vol] 8.3 g/dL Low 11.5-15.5 [facility] Comment on above: Order Comment: Speci men Type: BLOOD SPECIMENOrdering Facility: [facility] Address: [address] [place] [address] Performed By: #### 5 7021-8 ####[facility] CENTERNCLIA [id number] [place] [address] [place] Immature granulocytes (Bld) [#/Vol] 0.03 10*3/uL Normal <0.10 [facility] Comment on above: Order Comment: Speci men Type: BLOOD SPECIMENOrdering Facility: [facility] Address: [address] [place] [address] Performed By: #### 5 7021-8 ####[facility] JARONSofyaNCNICOLETTE [id number] [place] [address] [place] Immature granulocytes/100 WBC (Bld) 0.6 % Normal [facility] Comment on above: Order Comment: Speci men Type: BLOOD SPECIMENOrdering Facility: [facility] Address: [address] [place] [address] Performed By: #### 5 7021-8 ####[facility] CENTERNCMOUNTAIN [facility] [id number] [place] [address] [place] Lymphocytes (Bld) [#/Vol] 0.68 10*3/uL Low 1.00-4.00 [facility] Comment on above: Order Comment: Speci men Type: BLOOD SPECIMENOrdering Facility: [facility] Address: [address] [place] [address] Performed By: #### 5 7021-8 ####[facility] [id number] [place] [address] [place] Lymphocytes/100 WBC (Bld) 12.7 % Normal [facility] Comment on above: Order Comment: Speci men Type: BLOOD SPECIMENOrdering Facility: [facility] Address: [address] [place] [address] Performed By: #### 5 7021-8 ####[facility] MEDICAL CENTERA [id number] [place] [address] [place] MCH (RBC) [Entitic mass] 36.9 pg High 26.0-34.0 [facility] Comment on above: Order Comment: Speci men Type: BLOOD SPECIMENOrdering Facility: [facility] Address: [address] [place] [address] Performed By: #### 5 7021-8 ####[facility] NAPLESSofyaNCLIA [id number] [place] [address] [place] MCHC (RBC) [Mass/Vol] 32.7 g/dL Normal 30.5-36.0 [facility] Comment on above: Order Comment: Speci men Type: BLOOD SPECIMENOrdering Facility: [facility] Address: [address] [place] [address] Performed By: #### 5 7021-8 ####[facility] CENTERNCLIA [id number] [place] [address] [place] MCV (RBC) [Entitic vol] 112.9 fL High 80.0-100.0 [facility] Comment on above: Order Comment: Speci men Type: BLOOD SPECIMENOrdering Facility: [facility] Address: [address] [place] [address] Performed By: #### 5 7021-8 ####[facility] MED[facility] CENTERA [id number] [place] [address] [place] Monocytes (Bld) [#/Vol] 0.52 10*3/uL Normal <0.87 [facility] Comment on above: Order Comment: Speci men Type: BLOOD SPECIMENOrdering Facility: [facility] Address: [address] [place] [address] Performed By: #### 5 7021-8 ####[facility] HOSPITALLIA [id number] [address] [place] Monocytes/100 WBC (Bld) 9.7 % Normal [facility] Comment on above: Order Comment: Speci men Type: BLOOD SPECIMENOrdering Facility: [facility] Address: [address] [place] [address] Performed By: #### 5 7021-8 ####[facility] [id number] [place] [address] [place] Neutrophils (Bld) [#/Vol] 4.01 10*3/uL Normal 1.45-7.50 [facility] Comment on above: Order Comment: Speci men Type: BLOOD SPECIMENOrdering Facility: [facility] Address: [address] [place] [address] Performed By: #### 5 7021-8 ####[facility]ITALLIA [id number] [place] [address] [place] Neutrophils/100 WBC (Bld) 74.9 % Normal [facility] Comment on above: Order Comment: Speci men Type: BLOOD SPECIMENOrdering Facility: [facility] Address: [address] [place] [address] Performed By: #### 5 7021-8 ####[facility] [id number] [place] [address] [place] Nucleated RBC (Bld) [#/Vol] 10*3/uL Normal <0.01 [facility] Comment on above: Order Comment: Speci men Type: BLOOD SPECIMENOrdering Facility: [facility] Address: [address] [place] [address] Performed By: #### 5 7021-8 ####[facility] CENTERNCLI [id number] [place] [address] [place] Nucleated RBC/100 WBC (Bld) [Ratio] 0.0 /100 WBC Normal [facility] Comment on above: Order Comment: Speci men Type: BLOOD SPECIMENOrdering Facility: [facility] Address: [address] [place] [address] Performed By: #### 5 7021-8 ####[facility]ENTERNCLI [id number] [place] [address] [place] Platelet mean volume (Bld) [Entitic vol] 9.7 fL Normal 9.0-12.7 [facility] Comment on above: Order Comment: Speci men Type: BLOOD SPECIMENOrdering Facility: [facility] Address: [address] [place] [address] Performed By: #### 5 7021-8 ####[facility] DWAINENCLIA [id number] [place] [address] [place] Platelets (Bld) [#/Vol] 214 10*3/uL Normal 150-400 [facility] Comment on above: Order Comment: Speci men Type: BLOOD SPECIMENOrdering Facility: [facility] Address: [address] [place] [address] Performed By: #### 5 7021-8 ####[facility] JARONSTARKVILLENCLIA [id number] [place] [address] [place] RBC (Bld) [#/Vol] 2.25 10*6/uL Low 3.90-5.20 [facility] Comment on above: Order Comment: Speci men Type: BLOOD SPECIMENOrdering Facility: [facility] Address: [address] [place] [address] Performed By: #### 5 7021-8 ####[facility]ENTERNCLIA [id number] [place] [address] [place] WBC (Bld) [#/Vol] 5.35 10*3/uL Normal 3.70-11.00 [facility] Comment on above: Order Comment: Speci men Type: BLOOD SPECIMENOrdering Facility: [facility] Address: [address] [place] [address] Performed By: #### 5 7021-8 ####[facility] CENTERNCLIA [id number] [place] [address] [place] CNPNon 04-03-2025 CNPN Normal [facility] CNPNon 03-20-2025 CNPN Normal [facility] CBC W Auto Differential pane l (Bld)on 03-18-2025 Basophils (Bld) [#/Vol] [facility] Basophils/100 WBC (Bld) 0.2 % [facility] Differential cell count method Nom (Bld) Auto [facility] Eosinophils (Bld) [#/Vol] 0.08 10*3/uL [facility] Eosinophils/100 WBC (Bld) 1.8 % [facility] Erythrocyte distribution width (RBC) [Ratio] 15.7 % High 11.5 - 15.0 % [facility] Hematocrit (Bld) [Volume fraction] 25.1 % Low 36.0 - 46.0 % [facility] Hemoglobin (Bld) [Mass/Vol] 8.5 g/dL Low 11.5 - 15.5 g/dL [facility] Immature granulocytes (Bld) [#/Vol] 0.03 10*3/uL [facility] Immature granulocytes/100 WBC (Bld) 0.7 % [facility] Interpretation and review of laboratory results Abnormal [facility] Lymphocytes (Bld) [#/Vol] 0.69 10*3/uL Low [facility] Lymphocytes/100 WBC (Bld) 15.2 % [facility] MCH (RBC) [Entitic mass] 39.0 pg High 26.0 - 34.0 pg [facility] MCHC (RBC) [Mass/Vol] 33.9 g/dL 30.5 - 36.0 g/dL [facility] MCV (RBC) [Entitic vol] 115.1 fL High 80.0 - 100.0 fL [facility] Monocytes (Bld) [#/Vol] 0.52 10*3/uL [facility] Monocytes/100 WBC (Bld) 11.4 % [facility] Neutrophils (Bld) [#/Vol] 3.22 10*3/uL [facility] Neutrophils/100 WBC (Bld) 70.7 % [facility] Nucleated RBC (Bld) [#/Vol] [facility] Nucleated RBC/100 WBC (Bld) [Ratio] 0.0 % /100 WBC [facility] Platelet mean volume (Bld) [Entitic vol] 10.7 fL 9.0 - 12.7 fL [facility] Platelets (Bld) [#/Vol] 177 10*3/uL [facility] RBC (Bld) [#/Vol] 2.18 10*6/uL Low 3.90 - 5.2 0 m/uL [facility] WBC (Bld) [#/Vol] 4.55 10*3/uL [facility] Basophils (Bld) [#/Vol] 10*3/uL Normal <0.11 [facility] Comment on above: Order Comment: Speci men Type: BLOOD SPECIMENOrdering Facility: [facility] Address: [address] [place] [address] Performed By: #### 5 7021-8 ####[facility] MILLWNCLIA [id number] [place] [address] [place] Basophils/100 WBC (Bld) 0.2 % Normal [facility] Comment on above: Order Comment: Speci men Type: BLOOD SPECIMENOrdering Facility: [facility] Address: [address] [place] [address] Performed By: #### 5 7021-8 ####[facility] NOR[facility] NAPLESWFLLIA [id number] [place] [address] [place] Differential cell count method Nom (Bld) Auto Normal [facility] Comment on above: Order Comment: Speci men Type: BLOOD SPECIMENOrdering Facility: [facility] Address: [address] [place] [address] Performed By: #### 5 7021-8 ####[facility]PITALLIA [id number] [place] [address] [place] Eosinophils (Bld) [#/Vol] 0.08 10*3/uL Normal <0.46 [facility] Comment on above: Order Comment: Speci men Type: BLOOD SPECIMENOrdering Facility: [facility] Address: [address] [place] [address] Performed By: #### 5 7021-8 ####[facility] MILLSTARKVILLENCLIA [id number] [place] [address] [place] Eosinophils/100 WBC (Bld) 1.8 % Normal [facility] Comment on above: Order Comment: Speci men Type: BLOOD SPECIMENOrdering Facility: [facility] Address: [address] [place] [address] Performed By: #### 5 7021-8 ####[facility]ERN[facility] [id number] [place] [address] [place] Erythrocyte distribution width (RBC) [Ratio] 15.7 % High 11.5-15.0 [facility] Comment on above: Order Comment: Speci men Type: BLOOD SPECIMENOrdering Facility: [facility] Address: [address] [place] [address] Performed By: #### 5 7021-8 ####[facility] CENTERNCLI [id number] [place] [address] [place] Hematocrit (Bld) [Volume fraction] 25.1 % Low 36.0-46.0 [facility] Comment on above: Order Comment: Speci men Type: BLOOD SPECIMENOrdering Facility: [facility] Address: [address] [place] [address] Performed By: #### 5 7021-8 ####[facility] MED[facility] CENTERA [id number] [place] [address] [place] Hemoglobin (Bld) [Mass/Vol] 8.5 g/dL Low 11.5-15.5 [facility] Comment on above: Order Comment: Speci men Type: BLOOD SPECIMENOrdering Facility: [facility] Address: [address] [place] [address] Performed By: #### 5 7021-8 ####[facility]ERN[facility] [id number] [place] [address] [place] Immature granulocytes (Bld) [#/Vol] 0.03 10*3/uL Normal <0.10 [facility] Comment on above: Order Comment: Speci men Type: BLOOD SPECIMENOrdering Facility: [facility] Address: [address] [place] [address] Performed By: #### 5 7021-8 ####[facility] CENTERA [id number] [place] [address] [place] [facility] Immature granulocytes/100 WBC (Bld) 0.7 % Normal [facility] Comment on above: Order Comment: Speci men Type: BLOOD SPECIMENOrdering Facility: [facility] Address: [address] [place] [address] Performed By: #### 5 7021-8 ####[facility] [id number] [place] [address] [place] Lymphocytes (Bld) [#/Vol] 0.69 10*3/uL Low 1.00-4.00 [facility] Comment on above: Order Comment: Speci men Type: BLOOD SPECIMENOrdering Facility: [facility] Address: [address] [place] [address] Performed By: #### 5 7021-8 ####[facility] [id number] [place] [address] [place] Lymphocytes/100 WBC (Bld) 15.2 % Normal [facility] Comment on above: Order Comment: Speci men Type: BLOOD SPECIMENOrdering Facility: [facility] Address: [address] [place] [address] Performed By: #### 5 7021-8 ####[facility] [id number] [place] [address] [place] MCH (RBC) [Entitic mass] 39.0 pg High 26.0-34.0 [facility] Comment on above: Order Comment: Speci men Type: BLOOD SPECIMENOrdering Facility: [facility] Address: [address] [place] [address] Performed By: #### 5 7021-8 ####[facility] [id number] [place] [address] [place] MCHC (RBC) [Mass/Vol] 33.9 g/dL Normal 30.5-36.0 [facility] Comment on above: Order Comment: Speci men Type: BLOOD SPECIMENOrdering Facility: [facility] Address: [address] [place] [address] Performed By: #### 5 7021-8 ####[facility] CENTERYANIRA [id number] [place] [address] [place] MCV (RBC) [Entitic vol] 115.1 fL High 80.0-100.0 [facility] Comment on above: Order Comment: Speci men Type: BLOOD SPECIMENOrdering Facility: [facility] Address: [address] [place] [address] Performed By: #### 5 7021-8 ####[facility] CENTERYANIRA [id number] [place] [address] [place] Monocytes (Bld) [#/Vol] 0.52 10*3/uL Normal <0.87 [facility] Comment on above: Order Comment: Speci men Type: BLOOD SPECIMENOrdering Facility: [facility] Address: [address] [place] [address] Performed By: #### 5 7021-8 ####[facility] CENTERYANIRA [id number] [place] [address] [place] Monocytes/100 WBC (Bld) 11.4 % Normal [facility] Comment on above: Order Comment: Speci men Type: BLOOD SPECIMENOrdering Facility: [facility] Address: [address] [place] [address] Performed By: #### 5 7021-8 ####[facility]PITALLIA [id number] [place] [address] [place] Neutrophils (Bld) [#/Vol] 3.22 10*3/uL Normal 1.45-7.50 [facility] Comment on above: Order Comment: Speci men Type: BLOOD SPECIMENOrdering Facility: [facility] Address: [address] [place] [address] Performed By: #### 5 7021-8 ####[facility] [id number] [place] [address] [place] Neutrophils/100 WBC (Bld) 70.7 % Normal [facility] Comment on above: Order Comment: Speci men Type: BLOOD SPECIMENOrdering Facility: [facility] Address: [address] [place] [address] Performed By: #### 5 7021-8 ####[facility] [id number] [place] [address] [place] Nucleated RBC (Bld) [#/Vol] 10*3/uL Normal <0.01 [facility] Comment on above: Order Comment: Speci men Type: BLOOD SPECIMENOrdering Facility: [facility] Address: [address] [place] [address] Performed By: #### 5 7021-8 ####[facility] [id number] [place] [address] [place] Nucleated RBC/100 WBC (Bld) [Ratio] 0.0 /100 WBC Normal [facility] Comment on above: Order Comment: Speci men Type: BLOOD SPECIMENOrdering Facility: [facility] Address: [address] [place] [address] Performed By: #### 5 7021-8 ####[facility] [id number] [place] [address] [place] Platelet mean volume (Bld) [Entitic vol] 10.7 fL Normal 9.0-12.7 [facility] Comment on above: Order Comment: Speci men Type: BLOOD SPECIMENOrdering Facility: [facility] Address: [address] [place] [address] Performed By: #### 5 7021-8 ####[facility] JARONSTARKVILLENCLIA [id number] [place] [address] [place] Platelets (Bld) [#/Vol] 177 10*3/uL Normal 150-400 [facility] Comment on above: Order Comment: Speci men Type: BLOOD SPECIMENOrdering Facility: [facility] Address: [address] [place] [address] Performed By: #### 5 7021-8 ####[facility] CENTERNCLIA [id number] [place] [address] [place] RBC (Bld) [#/Vol] 2.18 10*6/uL Low 3.90-5.20 [facility] Comment on above: Order Comment: Speci men Type: BLOOD SPECIMENOrdering Facility: [facility] Address: [address] [place] [address] Performed By: #### 5 7021-8 ####[facility] CENTERNCA [id number] [place] [address] [place] WBC (Bld) [#/Vol] 4.55 10*3/uL Normal 3.70-11.00 [facility] Comment on above: Order Comment: Speci men Type: BLOOD SPECIMENOrdering Facility: [facility] Address: [address] [place] [address] Performed By: #### 5 7021-8 ####[facility] CENTERNCLIA [id number] [address] [place] REFERRAL FOR ADDITIONAL BIOM ARKER AND MOLECULAR TESTINGon 03-16-2025 REFERRAL FOR ADDITIONAL BIOMARKER AND MOLECULAR TESTING Normal [facility] Comment on above: Order Comment: Speci men Type: TISSUE SPECIMEN [facility] Address: [address] [place] [address] Result Comment: Requ est has been received for evaluation and the results will be issued separately. Performed By: #### A PMOL #### [facility] CLIA [id number] [address] [place] [id number] [place] CNOVSPon 03-15-2025 CNOVSP Normal [facility] CNPNon 03-15-2025 CNPN Normal [facility] CNPNon 03-13-2025 CNPN Normal [facility] FERRITINon 03-08-2025 Ferritin [Mass/Vol] 507.0 ng/mL High 14.7 - 205.1 ng/mL [facility] Ferritin SerPl-mCncon 2024 Ferritin [Mass/Vol] 507.0 ng/mL High 14.7-205.1 [facility] Comment on above: Order Comment: Speci men Type: BLOOD SPECIMENOrdering Facility: [facility] Address: [address] [place] [address] Performed By: #### 5 0190-8, 2275-10 ####[facility] LABCLIA [id number] [place] [address] [place] Ferritin [Mass/Vol]on 2024 Interpretation and review of laboratory results Abnormal [facility] Iron and Iron binding capaci ty panelon 03-08-2025 Interpretation and review of laboratory results Normal [facility] Iron [Mass/Vol] 61 ug/dL 41 - 186 ug/dL [facility] Iron binding capacity [Mass/Vol] 236 ug/dL 232 - 386 ug/dL [facility] Iron/TIBC [Molar ratio] 25.8 % 15.0 - 57.0 % [facility] Iron [Mass/Vol] 61 ug/dL Normal 41-186 [facility] Comment on above: Order Comment: Speci men Type: BLOOD SPECIMENOrdering Facility: [facility] Address: [facility] [place] [address] Performed By: #### 5 0190-8, 2275-10 ####[facility] LABCLIA [id number] [place] [address] [place] Iron binding capacity [Mass/Vol] 236 ug/dL Normal 232-386 [facility] Comment on above: Order Comment: Speci men Type: BLOOD SPECIMENOrdering Facility: [facility] Address: [address] [place] [address] Performed By: #### 5 0190-8, 2275-10 ####[facility] LABCLIA [id number] [place] [address] [place] Iron/TIBC [Molar ratio] 25.8 % Normal 15.0-57.0 [facility] Comment on above: Order Comment: Speci men Type: BLOOD SPECIMENOrdering Facility: [facility] Address: [address] [place] [address] Performed By: #### 5 0190-8, 2275-10 ####[facility] LABCLIA [id number] [place] [address] [place] CBC W Auto Differential pane l (Bld)on 03-07-2025 Basophils (Bld) [#/Vol] [facility] Basophils/100 WBC (Bld) 0.2 % [facility] Differential cell count method Nom (Bld) Auto [facility] Eosinophils (Bld) [#/Vol] 0.10 10*3/uL [facility] Eosinophils/100 WBC (Bld) 2.3 % [facility] Erythrocyte distribution width (RBC) [Ratio] 15.9 % High 11.5 - 15.0 % [facility] Hematocrit (Bld) [Volume fraction] 24.0 % Low 36.0 - 46.0 % [facility] Hemoglobin (Bld) [Mass/Vol] 8.2 g/dL Low 11.5 - 15.5 g/dL [facility] Immature granulocytes (Bld) [#/Vol] [facility] Immature granulocytes/100 WBC (Bld) 0.2 % [facility] Interpretation and review of laboratory results Abnormal [facility] Lymphocytes (Bld) [#/Vol] 0.56 10*3/uL Low [facility] Lymphocytes/100 WBC (Bld) 12.9 % [facility] MCH (RBC) [Entitic mass] 39.2 pg High 26.0 - 34.0 pg [facility] MCHC (RBC) [Mass/Vol] 34.2 g/dL 30.5 - 36.0 g/dL [facility] MCV (RBC) [Entitic vol] 114.8 fL High 80.0 - 100.0 fL [facility] Monocytes (Bld) [#/Vol] 0.46 10*3/uL NINF [facility] Monocytes/100 WBC (Bld) 10.6 % [facility] Neutrophils (Bld) [#/Vol] 3.21 10*3/uL [facility] Neutrophils/100 WBC (Bld) 73.8 % [facility] Nucleated RBC (Bld) [#/Vol] NINF [facility] Nucleated RBC/100 WBC (Bld) [Ratio] 0.0 % /100 WBC [facility] Platelet mean volume (Bld) [Entitic vol] 10.3 fL 9.0 - 12.7 fL [facility] Platelets (Bld) [#/Vol] 139 10*3/uL Low [facility] RBC (Bld) [#/Vol] 2.09 10*6/uL Low 3.90 - 5.2 0 m/uL [facility] WBC (Bld) [#/Vol] 4.35 10*3/uL [facility] Basophils (Bld) [#/Vol] 10*3/uL Normal <0.11 [facility] Comment on above: Order Comment: Speci men Type: BLOOD SPECIMENOrdering Facility: [facility] Address: [address] [place] [address] Performed By: #### 5 7021-8 ####[facility] [id number] [place] [address] [place] Basophils/100 WBC (Bld) 0.2 % Normal [facility] Comment on above: Order Comment: Speci men Type: BLOOD SPECIMENOrdering Facility: [facility] Address: [address] [place] [address] Performed By: #### 5 7021-8 ####[facility] [id number] [place] [address] [place] Differential cell count method Nom (Bld) Auto Normal [facility] Comment on above: Order Comment: Speci men Type: BLOOD SPECIMENOrdering Facility: [facility] Address: [address] [place] [address] Performed By: #### 5 7021-8 ####[facility] [id number] [place] [address] [place] Eosinophils (Bld) [#/Vol] 0.10 10*3/uL Normal <0.46 [facility] Comment on above: Order Comment: Speci men Type: BLOOD SPECIMENOrdering Facility: [facility] Address: [address] [place] [address] Performed By: #### 5 7021-8 ####[facility] [id number] [place] [address] [place] Eosinophils/100 WBC (Bld) 2.3 % Normal [facility] Comment on above: Order Comment: Speci men Type: BLOOD SPECIMENOrdering Facility: [facility] Address: [address] [place] [address] Performed By: #### 5 7021-8 ####[facility] [id number] [place] [address] [place] Erythrocyte distribution width (RBC) [Ratio] 15.9 % High 11.5-15.0 [facility] Comment on above: Order Comment: Speci men Type: BLOOD SPECIMENOrdering Facility: [facility] Address: [address] [place] [address] Performed By: #### 5 7021-8 ####[facility] [id number] [place] [address] [place] Hematocrit (Bld) [Volume fraction] 24.0 % Low 36.0-46.0 [facility] Comment on above: Order Comment: Speci men Type: BLOOD SPECIMENOrdering Facility: [facility] Address: [address] [place] [address] Performed By: #### 5 7021-8 ####[facility] MILLWNCLIA [id number] [place] [address] [place] Hemoglobin (Bld) [Mass/Vol] 8.2 g/dL Low 11.5-15.5 [facility] Comment on above: Order Comment: Speci men Type: BLOOD SPECIMENOrdering Facility: [facility] Address: [address] [place] [address] Performed By: #### 5 7021-8 ####[facility] CENTERNCLIA [id number] [place] [address] [place] Immature granulocytes (Bld) [#/Vol] 10*3/uL Normal <0.10 [facility] Comment on above: Order Comment: Speci men Type: BLOOD SPECIMENOrdering Facility: [facility] Address: [address] [place] [address] Performed By: #### 5 7021-8 ####[facility]PITALLIA [id number] [place] [address] [place] Immature granulocytes/100 WBC (Bld) 0.2 % Normal [facility] Comment on above: Order Comment: Speci men Type: BLOOD SPECIMENOrdering Facility: [facility] Address: [address] [place] [address] Performed By: #### 5 7021-8 ####[facility] HOSPITALLIA [id number] [place] [address] [place] Lymphocytes (Bld) [#/Vol] 0.56 10*3/uL Low 1.00-4.00 [facility] Comment on above: Order Comment: Speci men Type: BLOOD SPECIMENOrdering Facility: [facility] Address: [address] [place] [address] Performed By: #### 5 7021-8 ####[facility] CENTERNCLIA [id number] [place] [address] [place] Lymphocytes/100 WBC (Bld) 12.9 % Normal [facility] Comment on above: Order Comment: Speci men Type: BLOOD SPECIMENOrdering Facility: [facility] Address: [address] [place] [address] Performed By: #### 5 7021-8 ####[facility] CENTERBANGMOUNTAIN POINT [facility] [id number] [place] [address] [place] MCH (RBC) [Entitic mass] 39.2 pg High 26.0-34.0 [facility] Comment on above: Order Comment: Speci men Type: BLOOD SPECIMENOrdering Facility: [facility] Address: [address] [place] [address] Performed By: #### 5 7021-8 ####[facility] CENTERNCDarryl [id number] [place] [address] [place] MCHC (RBC) [Mass/Vol] 34.2 g/dL Normal 30.5-36.0 [facility] Comment on above: Order Comment: Speci men Type: BLOOD SPECIMENOrdering Facility: [facility] Address: [address] [place] [address] Performed By: #### 5 7021-8 ####[facility] CENTERNCLIDarryl [id number] [place] [address] [place] MCV (RBC) [Entitic vol] 114.8 fL High 80.0-100.0 [facility] Comment on above: Order Comment: Speci men Type: BLOOD SPECIMENOrdering Facility: [facility] [facility] Address: [address] [place] [address] Performed By: #### 5 7021-8 ####[facility]ENTERNCLIA [id number] [place] [address] [place] Monocytes (Bld) [#/Vol] 0.46 10*3/uL Normal <0.87 [facility] Comment on above: Order Comment: Speci men Type: BLOOD SPECIMENOrdering Facility: [facility] Address: [address] [place] [address] Performed By: #### 5 7021-8 ####[facility]A [id number] [place] [address] [place] Monocytes/100 WBC (Bld) 10.6 % Normal [facility] Comment on above: Order Comment: Speci men Type: BLOOD SPECIMENOrdering Facility: [facility] Address: [address] [place] [address] Performed By: #### 5 7021-8 ####[facility] [id number] [place] [address] [place] Neutrophils (Bld) [#/Vol] 3.21 10*3/uL Normal 1.45-7.50 [facility] Comment on above: Order Comment: Speci men Type: BLOOD SPECIMENOrdering Facility: [facility] Address: [address] [place] [address] Performed By: #### 5 7021-8 ####[facility] [id number] [place] [address] [place] Neutrophils/100 WBC (Bld) 73.8 % Normal [facility] Comment on above: Order Comment: Speci men Type: BLOOD SPECIMENOrdering Facility: [facility] Address: [address] [place] [address] Performed By: #### 5 7021-8 ####[facility] [id number] [place] [address] [place] Nucleated RBC (Bld) [#/Vol] 10*3/uL Normal <0.01 [facility] Comment on above: Order Comment: Speci men Type: BLOOD SPECIMENOrdering Facility: [facility] Address: [address] [place] [address] Performed By: #### 5 7021-8 ####[facility] DWAINENCLIA [id number] [place] [address] [place] Nucleated RBC/100 WBC (Bld) [Ratio] 0.0 /100 WBC Normal [facility] Comment on above: Order Comment: Speci men Type: BLOOD SPECIMENOrdering Facility: [facility] Address: [address] [place] [address] Performed By: #### 5 7021-8 ####[facility]ERNCLIA [id number] [place] [address] [place] Platelet mean volume (Bld) [Entitic vol] 10.3 fL Normal 9.0-12.7 [facility] Comment on above: Order Comment: Speci men Type: BLOOD SPECIMENOrdering Facility: [facility] Address: [address] [place] [address] Performed By: #### 5 7021-8 ####[facility]ERNCLIA [id number] [place] [address] [place] Platelets (Bld) [#/Vol] 139 10*3/uL Low 150-400 [facility] Comment on above: Order Comment: Speci men Type: BLOOD SPECIMENOrdering Facility: [facility] Address: [address] [place] [address] Performed By: #### 5 7021-8 ####[facility]ERNCLIA [id number] [place] [address] [place] RBC (Bld) [#/Vol] 2.09 10*6/uL Low 3.90-5.20 [facility] Comment on above: Order Comment: Speci men Type: BLOOD SPECIMENOrdering Facility: [facility] Address: [address] [place] [address] Performed By: #### 5 7021-8 ####[facility]ERNCLIA [id number] [place] [address] [place] WBC (Bld) [#/Vol] 4.35 10*3/uL Normal 3.70-11.00 [facility] Comment on above: Order Comment: Speci men Type: BLOOD SPECIMENOrdering Facility: [facility] Address: [facility] [place] [address] Performed By: #### 5 7021-8 ####[facility] Y[facility] [id number] [place] [address] [place] CNPNon 03-07-2025 CNPN Normal [facility] CT ABD/PEL W IVCONon 025 CT ABD/PEL W IVCON Normal [facility] CT CHEST W IVCONon 5 CT CHEST W IVCON Normal [facility] CNOVSPon 02-27-2025 CNOVSP Visit (SP) Office (AGGYNONPOB) -- GASPER REED ([id number]) 1950 F Date Time Provider Department 02/27/25 1:00 PM MAYTE GONZALEZ During your visit today, we recorded the following information about you: Temperature Pulse Blood pressure Weight 98.1 degrees 77/minute 168/73 51.3 kg Mayte Gonzalez, MATERIALS MANAGEMENT MANAGER.HOUSEKEEPING ASSISTANT 02/27/2025 1:45 PM Signed Gynecologic Oncology Note [facility] Chief complaint: Ovarian cancer surveillance HPI: This is a 73 year old patient with 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 Doing really well. Great appetite, no N/V, had some loose stool few weeks ago but realized it was due to the magnesium supplement she was taking and improved with a change. No constipation. No urinary symptoms. no abdominal pain. No VB. Tolerating olaparib well. Some fatigue but improved with recent iv fe infusions ROS: 14 point ROS negative unless indicated in above HPI. Oncologic history: 07/15/23: Diagnostic laparoscopy - extensive infiltration into Ball's pouch, freddy hepatis, dense scarring between liver and diaphragm due to disease infiltration. Debulking aborted. Transverse loop colostomy created. 08/09/23: C1D1 carboplatin/paclitaxel 08/30/23: C2D1 09/20/23: C3D1 10/28/23: Interval debulking surgery. Ex-lap, enterolysis, modified posterior exenterative procedure including radical hysterectomy, BSO, en bloc resection of rectosigmoid colon, bilateral temporary stents (urology). No residual disease. 01/23/24: C6D1 carboplatin/paclitaxel. 02/01/24: Completion CT MELISSA. 03/2024: olaparib started 04/25/2024: colorectal resection biopsy of omentum 09/04/2024: Reversal of transverse loop colostomy PE: EGOG PS 1 BP 168/73 (BP Site: Right Arm, BP Position: Sitting, BP Cuff Size: Regular Adult) Pulse 77 Temp 36.7 ?C (98.1 ?F) (Oral) Wt 51.3 kg (113 lb) SpO2 100% BMI 20.67 kg/m? Gen: well-appearing, NAD, here with her daughter Lungs: unlabored breathing on Ra Abdomen: soft, Nt , no masses, no hernias Pelvic: no external lesion, no pelvic masses, no groin adenopathy, speculum inserted with surgically absent cervix, intact cuff, bimanual confirms smooth and intact cuff, no masses or nodularity , no pelvic, Masses Rectal: no masses Extremities: no edema The sensitive examination was discussed with the Patient or Patient's Authorized Apparel Sales Associate. As applicable, any other physician, advance practice provider, medical student, or other health professional student that will be observing or involved in the sensitive examination for educational or training purposes was discussed with the Patient or Authorized Apparel Sales Associate. The Patient or Authorized Apparel Sales Associate has agreed to proceed with the sensitive examination. 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 Ovarian/fallopian tube cancer: - Ca-125 increased 30>>46 repeat 2 weeks later 47 -CT ordered by Dr Mccoy 03/05/2025 MELISSA based on exam or symptoms - Compliant and tolerating olaparib. Dr. Mccoy manages. . 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 All reflect current medical decision making from today, Medical Decision Making: Problems: Moderate: 1+ chronic illnesses with change Data: Unique source(s) for external note(s) reviewed: 3+ Unique test result(s) reviewed: 3+ Medical Decision Making Level: 4 - Moderate Referring Provider: GUERRERO VILCHIS [[id number]] Allergies As of Date: 02/27/2025 Noted Allergy Reaction ERYTHROMYCIN 02/09/2008 6 - Diarrhea 8 - GI Upset Comments: Abdominal cramping PENICILLINS 02/09/2008 16 - Unknown Date Reviewed: 02/27/2025 Reviewed by: Mayte Gonzalez APRN.HOUSEKEEPING ASSISTANT - Fully Assessed Reason for Visit: Established Patient [175] Primary Visit Diagnosis:Encounter for follow-up surveillance of ovarian cancer [Z08, Z85.43] Other Visit Diagnoses: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 - magnesium oxide 200 mg magnesium tab Take 1 tablet by mouth as needed. - pantoprazole DR (PROTONIX) 40 mg tablet TAKE 1 TABLET BY MOUTH EVERY DAY - olaparib (LYNPA (more content not included)... Normal [facility] CNPNon 02-23-2025 CNPN Normal [facility] Cancer Ag125 SerPl-aCncon Cancer Ag 125 Qn 47 [arb'U]/mL High <39 [facility] Comment on above: Order Comment: Riaz hernández Type: BLOOD SPECIMENOrdering Facility: [facility] Address: [address] [place] [address] Result Comment: CA 1 25 test methodology used is the Electrochemiluminescence Immunoassay by [employer]. Results obtained with different methods or kits cannot be used interchangeably.The reference interval is based on the 95th percentile of 240 apparently healthy premenopausal and postmenopausal women. At a cutoff value of 65 U/mL, the test sensitivity to distinguish ovarian carcinoma (FIGO stage I to IV) versus benign gynecological disease is 79%, with a specificity of 82%.Reference: Cancer Antigen 125 (CA 125 II) [package insert V 1.0 [place]ien]. [facility]Franc[facility] [place], [place] (April 2015) Performed By: #### 1 0334-1 ####[facility] LABCLIA [id number] [place] [address] [place] Folate [facility] 25 Folate [Mass/Vol] ng/mL Normal >4.7 [facility] Comment on above: Order Comment: Specmayra hernández Type: BLOOD SPECIMENOrdering Facility: [facility] Address: [address] [place] [address] Result Comment: A re sult of > 20 ng/mL is not necessarily indicative of a pathologic or treatable condition: it reflects a limitation of the test methodology.Assay reference range: 4.8 to 24.2 ng/mL. Suitable for detection of folate deficiency.Reference:Folate III (Folate III) [package insert V 1.0 [place]ien]. [employer], [place], [place]: May 2015. Performed By: #### 2 284-8 ####[facility] LABIA [id number] [place] [id number] [place] CNPNon 02-15-2025 CNPN Normal [facility] CNPNon 02-09-2025 CNPN Normal [facility] CBC W Auto Differential pane l (Bld)on 02-08-2025 Basophils (Bld) [#/Vol] NINF [facility] Basophils/100 WBC (Bld) 0.4 % [facility] Differential cell count method Nom (Bld) Auto [facility] Eosinophils (Bld) [#/Vol] 0.08 10*3/uL [facility] Eosinophils/100 WBC (Bld) 1.7 % [facility] Erythrocyte distribution width (RBC) [Ratio] 15.1 % High 11.5 - 15.0 % [facility] Hematocrit (Bld) [Volume fraction] 25.4 % Low 36.0 - 46.0 % [facility] Hemoglobin (Bld) [Mass/Vol] 8.7 g/dL Low 11.5 - 15.5 g/dL [facility] Immature granulocytes (Bld) [#/Vol] [facility] Immature granulocytes/100 WBC (Bld) 0.4 % [facility] Interpretation and review of laboratory results Abnormal [facility] Lymphocytes (Bld) [#/Vol] 0.91 10*3/uL Low [facility] Lymphocytes/100 WBC (Bld) 19.8 % [facility] MCH (RBC) [Entitic mass] 38.3 pg High 26.0 - 34.0 pg [facility] MCHC (RBC) [Mass/Vol] 34.3 g/dL 30.5 - 36.0 g/dL [facility] MCV (RBC) [Entitic vol] 111.9 fL High 80.0 - 100.0 fL [facility] Monocytes (Bld) [#/Vol] 0.45 10*3/uL [facility] Monocytes/100 WBC (Bld) 9.8 % [facility] Neutrophils (Bld) [#/Vol] 3.12 10*3/uL [facility] Neutrophils/100 WBC (Bld) 67.9 % [facility] Nucleated RBC (Bld) [#/Vol] [facility] Nucleated RBC/100 WBC (Bld) [Ratio] 0 % /100 WBC [facility] Platelet mean volume (Bld) [Entitic vol] 10.1 fL 9.0 - 12.7 fL [facility] Platelets (Bld) [#/Vol] 160 10*3/uL [facility] RBC (Bld) [#/Vol] 2.27 10*6/uL Low 3.90 - 5.2 0 m/uL [facility] WBC (Bld) [#/Vol] 4.6 10*3/uL [facility] Basophils (Bld) [#/Vol] 10*3/uL Normal <0.11 [facility] Comment on above: Order Comment: Speci men Type: BLOOD SPECIMENOrdering Facility: [facility] Address: [address] [place] [address] Performed By: #### 5 7021-8 ####[facility] MILLWNCLIA [id number] [place] [address] [place] Basophils/100 WBC (Bld) 0.4 % Normal [facility] Comment on above: Order Comment: Speci men Type: BLOOD SPECIMENOrdering Facility: [facility] Address: [address] [place] [address] Performed By: #### 5 7021-8 ####[facility] [id number] [place] [address] [place] Differential cell count method Nom (Bld) Auto Normal [facility] Comment on above: Order Comment: Speci men Type: BLOOD SPECIMENOrdering Facility: [facility] Address: [address] [place] [address] Performed By: #### 5 7021-8 ####[facility] [id number] [place] [address] [place] Eosinophils (Bld) [#/Vol] 0.08 10*3/uL Normal <0.46 [facility] Comment on above: Order Comment: Speci men Type: BLOOD SPECIMENOrdering Facility: [facility] Address: [address] [place] [address] Performed By: #### 5 7021-8 ####[facility] [id number] [place] [address] [place] Eosinophils/100 WBC (Bld) 1.7 % Normal [facility] Comment on above: Order Comment: Speci men Type: BLOOD SPECIMENOrdering Facility: [facility] Address: [address] [place] [address] Performed By: #### 5 7021-8 ####[facility]ENTERNCLIA [id number] [place] [address] [place] Erythrocyte distribution width (RBC) [Ratio] 15.1 % High 11.5-15.0 [facility] Comment on above: Order Comment: Speci men Type: BLOOD SPECIMENOrdering Facility: [facility] Address: [address] [place] [address] Performed By: #### 5 7021-8 ####[facility]ENTERNCMOUNT[facility] [id number] [place] [address] [place] Hematocrit (Bld) [Volume fraction] 25.4 % Low 36.0-46.0 [facility] Comment on above: Order Comment: Speci men Type: BLOOD SPECIMENOrdering Facility: [facility] Address: [address] [place] [address] Performed By: #### 5 7021-8 ####[facility] [id number] [place] [address] [place] Hemoglobin (Bld) [Mass/Vol] 8.7 g/dL Low 11.5-15.5 [facility] Comment on above: Order Comment: Speci men Type: BLOOD SPECIMENOrdering Facility: [facility] Address: [address] [place] [address] Performed By: #### 5 7021-8 ####[facility]ALL[facility] [id number] [place] [address] [place] Immature granulocytes (Bld) [#/Vol] 10*3/uL Normal <0.10 [facility] Comment on above: Order Comment: Speci men Type: BLOOD SPECIMENOrdering Facility: [facility] Address: [address] [place] [address] Performed By: #### 5 7021-8 ####[facility] [id number] [place] [address] [place] Immature granulocytes/100 WBC (Bld) 0.4 % Normal [facility] Comment on above: Order Comment: Speci men Type: BLOOD SPECIMENOrdering Facility: [facility] Address: [address] [place] [address] Performed By: #### 5 7021-8 ####[facility] [id number] [place] [address] [place] Lymphocytes (Bld) [#/Vol] 0.91 10*3/uL Low 1.00-4.00 [facility] Comment on above: Order Comment: Speci men Type: BLOOD SPECIMENOrdering Facility: [facility] Address: [address] [place] [address] Performed By: #### 5 7021-8 ####[facility]ENTERNCMOUNT[facility] [id number] [place] [address] [place] Lymphocytes/100 WBC (Bld) 19.8 % Normal [facility] Comment on above: Order Comment: Speci men Type: BLOOD SPECIMENOrdering Facility: [facility] Address: [address] [place] [address] Performed By: #### 5 7021-8 ####[facility]ENTERNCLI [id number] [place] [address] [place] MCH (RBC) [Entitic mass] 38.3 pg High 26.0-34.0 [facility] Comment on above: Order Comment: Speci men Type: BLOOD SPECIMENOrdering Facility: [facility] Address: [address] [place] [address] Performed By: #### 5 7021-8 ####[facility]ERNCLI [id number] [place] [address] [place] MCHC (RBC) [Mass/Vol] 34.3 g/dL Normal 30.5-36.0 [facility] Comment on above: Order Comment: Speci men Type: BLOOD SPECIMENOrdering Facility: [facility] Address: [address] [place] [address] Performed By: #### 5 7021-8 ####[facility] JARONSTARKVILLENCLIDarryl [id number] [place] [address] [place] MCV (RBC) [Entitic vol] 111.9 fL High 80.0-100.0 [facility] Comment on above: Order Comment: Speci men Type: BLOOD SPECIMENOrdering Facility: [facility] Address: [address] [place] [address] Performed By: #### 5 7021-8 ####[facility]ERNCLI [id number] [place] [address] [place] Monocytes (Bld) [#/Vol] 0.45 10*3/uL Normal <0.87 [facility] Comment on above: Order Comment: Speci men Type: BLOOD SPECIMENOrdering Facility: [facility] Address: [address] [place] [address] Performed By: #### 5 7021-8 ####[facility]ENTERNCLIA [id number] [place] [address] [place] Monocytes/100 WBC (Bld) 9.8 % Normal [facility] Comment on above: Order Comment: Speci men Type: BLOOD SPECIMENOrdering Facility: [facility] Address: [address] [place] [address] Performed By: #### 5 7021-8 ####[facility]ENTERNCLIA [id number] [place] [address] [place] Neutrophils (Bld) [#/Vol] 3.12 10*3/uL Normal 1.45-7.50 [facility] Comment on above: Order Comment: Speci men Type: BLOOD SPECIMENOrdering Facility: [facility] Address: [address] [place] [address] Performed By: #### 5 7021-8 ####[facility] JARONWNCLIA [id number] [place] [address] [place] Neutrophils/100 WBC (Bld) 67.9 % Normal [facility] Comment on above: Order Comment: Speci men Type: BLOOD SPECIMENOrdering Facility: [facility] Address: [address] [place] [address] Performed By: #### 5 7021-8 ####[facility]ITALL[facility] [id number] [place] [address] [place] Nucleated RBC (Bld) [#/Vol] 10*3/uL Normal <0.01 [facility] Comment on above: Order Comment: Speci men Type: BLOOD SPECIMENOrdering Facility: [facility] Address: [address] [place] [address] Performed By: #### 5 7021-8 ####[facility] [id number] [place] [address] [place] Nucleated RBC/100 WBC (Bld) [Ratio] 0.0 /100 WBC Normal [facility] Comment on above: Order Comment: Speci men Type: BLOOD SPECIMENOrdering Facility: [facility] Address: [address] [place] [address] Performed By: #### 5 7021-8 ####[facility]ITALL[facility] [id number] [place] [address] [place] Platelet mean volume (Bld) [Entitic vol] 10.1 fL Normal 9.0-12.7 [facility] Comment on above: Order Comment: Speci men Type: BLOOD SPECIMENOrdering Facility: [facility] Address: [address] [place] [address] Performed By: #### 5 7021-8 ####[facility]ITALL[facility] [id number] [place] [address] [place] Platelets (Bld) [#/Vol] 160 10*3/uL Normal 150-400 [facility] Comment on above: Order Comment: Speci men Type: BLOOD SPECIMENOrdering Facility: [facility] Address: [address] [place] [address] Performed By: #### 5 7021-8 ####[facility] [id number] [place] [address] [place] RBC (Bld) [#/Vol] 2.27 10*6/uL Low 3.90-5.20 [facility] Comment on above: Order Comment: Speci men Type: BLOOD SPECIMENOrdering Facility: [facility] Address: [address] [place] [address] Performed By: #### 5 7021-8 ####[facility] [id number] [place] [address] [place] WBC (Bld) [#/Vol] 4.60 10*3/uL Normal 3.70-11.00 [facility] Comment on above: Order Comment: Speci men Type: BLOOD SPECIMENOrdering Facility: [facility] Address: [address] [place] [address] Performed By: #### 5 7021-8 ####[facility] CENTERNCA [id number] [place] [address] [place] CNOVSPon 02-08-2025 CNOVSP Normal [facility] Cancer Ag125 SerPl-aCncon Cancer Ag 125 Qn 46 [arb'U]/mL High <39 [facility] Comment on above: Order Comment: Speci men Type: BLOOD SPECIMENOrdering Facility: [facility] Address: [address] [place] [address] Result Comment: CA 1 25 test methodology used is the Electrochemiluminescence Immunoassay by [employer]. Results obtained with different methods or kits cannot be used interchangeably.The reference interval is based on the 95th percentile of 240 apparently healthy premenopausal and postmenopausal women. At a cutoff value of 65 U/mL, the test sensitivity to distinguish ovarian carcinoma (FIGO stage I to IV) versus benign gynecological disease is 79%, with a specificity of 82%.Reference: Cancer Antigen 125 (CA 125 II) [package insert V 1.0 [place]ien]. [employer], [place], [place] (April 2015) Performed By: #### 1 0334-1, 14109-4 ####[facility] LABCLIA [id number] [address] [place] Comprehensive metabolic 2000 panelOrdered By: Rosa Cedillo on 02-08-2025 Albumin [Mass/Vol] 4.3 g/dL 3.9 - 4.9 g/dL [facility] ALP [Catalytic activity/Vol] 114 U/L 34 - 123 U/L [facility] ALT [Catalytic activity/Vol] 18 U/L 7 - 38 U/L [facility] Anion gap [Moles/Vol] 14 mmol/L 8 - 15 mmol/L [facility] AST [Catalytic activity/Vol] 24 U/L 13 - 35 U/L [facility] Bilirubin [Mass/Vol] 0.7 mg/dL 0.2 - 1 .3 mg/dL [facility] Calcium [Mass/Vol] 9.9 mg/dL 8.5 - 10. 2 mg/dL [facility] Chloride [Moles/Vol] 100 mmol/L 98 - 10 7 mmol/L [facility] CO2 [Moles/Vol] 25 mmol/L 22 - 30 mmol/L [facility] Creatinine [Mass/Vol] 1.3 mg/dL High 0.58 - 0.96 mg/dL [facility] GFR/1.73 sq M.predicted among non-blacks MDRD (S/P/Bld) [Vol rate/Area] 43 mL/min/{1.73_m2} Low - PINF [facility] Comment on above: Estimated Glomerular Filtration Rate (eGFR) is calculated using the 2020 CKD-EPI creatinine equation. This equation utilizes serum creatinine, sex, and age as parameters. The creatinine assay has traceable calibration to isotope dilution-mass spectrometry. Refer to KDIGO guidelines for clinical interpretation. In patients with unstable renal function, e.g. those with acute kidney injury, the eGFR may not accurately reflect actual GFR. Glucose [Mass/Vol] 107 mg/dL High 74 - 99 mg/dL [facility] Comment on above: The [place] Diab[employer] s Association (ADA) provides guidance for cutoff values for fasting glucose and random glucose. The ADA defines fasting as no caloric intake for at least 8 hours. Fasting plasma glucose results between 100 to 125 mg/dL indicate increased risk for diabetes (prediabetes). Fasting plasma glucose results greater than or equal to 126 mg/dL meet the criteria for diagnosis of diabetes. In the absence of unequivocal hyperglycemia, results should be confirmed by repeat testing. In a patient with classic symptoms of hyperglycemia or hyperglycemic crisis, random plasma glucose results greater than or equal to 200 mg/dL meet the criteria for diagnosis of diabetes. Reference: Standards of Medical Care in Diabetes 2016, [place] [employer] Association. Diabetes Care. 2016.39(Suppl 1). Interpretation and review of laboratory results Abnormal [facility] Potassium [Moles/Vol] 4.1 mmol/L 3.7 - 5.1 mmol/L [facility] Protein [Mass/Vol] 6.5 g/dL 6.3 - 8.0 g/dL [facility] Sodium [Moles/Vol] 139 mmol/L 136 - 144 mmol/L [facility] Urea nitrogen [Mass/Vol] 28 mg/dL High 7 - 21 mg/dL [facility] Comprehensive metabolic 2000 panelon 02-08-2025 Albumin [Mass/Vol] 4.3 g/dL Normal 3.9-4.9 [facility] Comment on above: Order Comment: Speci men Type: BLOOD SPECIMENOrdering Facility: [facility] Address: [address] [place] [address] Performed By: #### 2 4323-8 ####[facility] [id number] [place] [id number] [place]#### 2132-9, 2276-4, 81643-5 ####[facility] LABCLIA [id number] [place] [address] [place] ALP [Catalytic activity/Vol] 114 U/L Normal 34-123 [facility] Comment on above: Order Comment: Speci men Type: BLOOD SPECIMENOrdering Facility: [facility] Address: [address] [place] [address] Performed By: #### 2 4323-8 ####[facility] JARONWNCLIA [id number] [place] [address] [place]#### 2132-9, 2276-4, 84962-6 ####[facility] LABCLIA [id number] [place] [id number] [place] ALT [Catalytic activity/Vol] 18 U/L Normal 7-38 [facility] Comment on above: Order Comment: Speci men Type: BLOOD SPECIMENOrdering Facility: [facility] Address: [address] [place] [address] Performed By: #### 2 4323-8 ####[facility] CENTERBANGLIA [id number] [place] [address] [place]#### 2132-9, 6-4, 02173-0 ####[facility] LABCLIA [id number] [place] [address] [place] Anion gap [Moles/Vol] 14 mmol/L Normal 8-15 [facility] Comment on above: Order Comment: Speci men Type: BLOOD SPECIMENOrdering Facility: [facility] Address: [address] [place] [address] Performed By: #### 2 4323-8 ####[facility]ENTERNCLIA [id number] [place] [address] [place]#### 2132-9, 6-4, 88804-1 ####[facility] LABCLIA [id number] [address] [address] [place] AST [Catalytic activity/Vol] 24 U/L Normal 13-35 [facility] Comment on above: Order Comment: Speci men Type: BLOOD SPECIMENOrdering Facility: [facility] Address: [address] [place] [address] Performed By: #### 2 4323-8 ####[facility] MILLTOWNCLIA [id number] [place] [address] [place]#### 2132-9, 6-4, 34523-3 ####[facility] LABCLIA [id number] [address] [address] [place] Bilirubin [Mass/Vol] 0.7 mg/dL Normal 0.2-1.3 [facility] Comment on above: Order Comment: Speci men Type: BLOOD SPECIMENOrdering Facility: [facility] Address: [address] [place] [address] Performed By: #### 2 4323-8 ####[facility] MILLWNCLIA [id number] [place] [address] [place]#### 2132-9, 2275-10, 45359-0 ####[facility] LABCLIA [id number] [place] [address] [place] Calcium [Mass/Vol] 9.9 mg/dL Normal 8.5-10.2 [facility] Comment on above: Order Comment: Speci men Type: BLOOD SPECIMENOrdering Facility: [facility] Address: [address] [place] [address] Performed By: #### 2 4323-8 ####[facility] MILLTOWNCLIA [id number] [place] [address] [place]#### 2132-9, 2275-, 39274-5 ####[facility] LABCLIA [id number] [address] [address] [place] Chloride [Moles/Vol] 100 mmol/L Normal 98-107 [facility] Comment on above: Order Comment: Speci men Type: BLOOD SPECIMENOrdering Facility: [facility] Address: [address] [place] [address] Performed By: #### 2 4323-8 ####[facility] MILLTOWNCLIA [id number] [place] [address] [place]#### 2132-9, 6-4, 31158-3 ####[facility] LABCLIA [id number] [address] [address] [place] CO2 [Moles/Vol] 25 mmol/L Normal 22-30 [facility] Comment on above: Order Comment: Speci men Type: BLOOD SPECIMENOrdering Facility: [facility] Address: [address] [place] [address] Performed By: #### 2 4323-8 ####[facility]ENTERNCLIA [id number] [place] [address] [place]#### 2132-9, 6-4, 69364-0 ####[facility] LABCLIA [id number] [place] [address] [place] Creatinine [Mass/Vol] 1.30 mg/dL High 0.58-0.96 [facility] Comment on above: Order Comment: Speci men Type: BLOOD SPECIMENOrdering Facility: [facility] Address: [address] [place] [address] Performed By: #### 2 4323-8 ####[facility] MILLWNCLIA [id number] [place] [address] [place]#### 2132-9, 6-4, 95084-9 ####[facility] LABCLIA [id number] [address] [address] [place] eGFRcr SerPlBld CKD-EPI 2020 43 mL/min/1.73m??? Low >=60 [facility] Comment on above: Order Comment: Riaz hernández Type: BLOOD SPECIMENOrdering Facility: [facility] Address: [address] [place] [address] Result Comment: Fernanda mated Glomerular Filtration Rate (eGFR) is calculated using the 2020 CKD-EPI creatinine equation. This equation utilizes serum creatinine, sex, and age as parameters. The creatinine assay has traceable calibration to isotope dilution-mass spectrometry. Refer to KDIGO guidelines for clinical interpretation. In patients with unstable renal function, e.g. those with acute kidney injury, the eGFR may not accurately reflect actual GFR. Performed By: #### 2 4323-8 ####[facility] [id number] [place] [address] [place]#### 2132-9, 2276-4, 37313-8 ####[facility] LABCLIA [id number] [place] [address] [place] Glucose [Mass/Vol] 107 mg/dL High 74-99 [facility] Comment on above: Order Comment: Riaz hernández Type: BLOOD SPECIMENOrdering Facility: [facility] Address: [address] [place], [place] [address] [address] Result Comment: The [place] Diabetes Association (ADA) provides guidance for cutoff values for fasting glucose and random glucose. The ADA defines fasting as no caloric intake for at least 8 hours. Fasting plasma glucose results between 100 to 125 mg/dL indicate increased risk for diabetes (prediabetes).Fasting plasma glucose results greater than or equal to 126 mg/dL meet the criteria for diagnosis of diabetes. In the absence of unequivocal hyperglycemia, results should be confirmed by repeat testing. In a patient with classic symptoms of hyperglycemia or hyperglycemic crisis, random plasma glucose results greater than or equal to 200 mg/dL meet the criteria for diagnosis of diabetes.Reference: Standards of Medical Care in Diabetes 2016, [place] [employer]. Diabetes Care. 2016.39(Suppl 1). Performed By: #### 2 4323-8 ####[facility] [id number] [place] [address] [place]#### 2132-9, 6-4, 16805-9 ####[facility] LABCLIA [id number] [address] [address] [place] Potassium [Moles/Vol] 4.1 mmol/L Normal 3.7-5.1 [facility] Comment on above: Order Comment: Speci men Type: BLOOD SPECIMENOrdering Facility: [facility] Address: [address] [place] [address] Performed By: #### 2 4323-8 ####[facility] NAPLESWNCLIA [id number] [place] [address] [place]#### 2132-9, 2275-10, 50087-5 ####[facility] LABCLIA [id number] [place] [id number] [place] Protein [Mass/Vol] 6.5 g/dL Normal 6.3-8.0 [facility] Comment on above: Order Comment: Speci men Type: BLOOD SPECIMENOrdering Facility: [facility] Address: [address] [place] [address] Performed By: #### 2 4323-8 ####[facility]ENTERNCLIA [id number] [place] [address] [place]#### 2132-9, 2275-10, 12798-8 ####[facility] LABCLIA [id number] [address] [address] [place] Sodium [Moles/Vol] 139 mmol/L Normal 136-144 [facility] Comment on above: Order Comment: Speci men Type: BLOOD SPECIMENOrdering Facility: [facility] Address: [address] [place], [place] [address] Performed By: #### 2 4323-8 ####[facility] MILLWNCLIA [id number] [place] [address] [place]#### 2132-9, 2276-4, 33951-4 ####[facility] LABCLIA [id number] [place] [id number] [place] Urea nitrogen [Mass/Vol] 28 mg/dL High 7-21 [facility] Comment on above: Order Comment: Speci men Type: BLOOD SPECIMENOrdering Facility: [facility] Address: [address] [place] [address] Performed By: #### 2 4323-8 ####[facility] CENTERA [id number] [place] [address] [place]#### 2132-9, 6-4, 45012-6 ####[facility] LABCLIA [id number] [place] [address] [place] Ferritin SerPl-ncon 2024 Ferritin [Mass/Vol] 39.3 ng/mL Normal 14.7-205.1 [facility] Comment on above: Order Comment: Speci men Type: BLOOD SPECIMENOrdering Facility: [facility] Address: [address] [place] [address] Performed By: #### 2 4323-8 ####[facility] [id number] [place] [address] [place]#### 2132-9, 2276-4, 43330-7 ####[facility] LABCLIA [id number] [place] [id number] [place] Iron and Iron binding capaci ty panelon 02-08-2025 Iron [Mass/Vol] 38 ug/dL Low 41-186 [facility] Comment on above: Order Comment: Speci men Type: BLOOD SPECIMENOrdering Facility: [facility] Address: [address] [place] [address] Performed By: #### 2 4323-8 ####[facility] MILLTOWNCLIA [id number] [place] [address] [place]#### 2132-9, 2276-4, 71114-8 ####[facility] LABCLIA [id number] [place] [address] [place] Iron binding capacity [Mass/Vol] 317 ug/dL Normal 232-386 [facility] Comment on above: Order Comment: Speci men Type: BLOOD SPECIMENOrdering Facility: [facility] Address: [address] [place] [address] Performed By: #### 2 4323-8 ####[facility]ITALL[facility] [id number] [place] [address] [place]#### 2132-9, 2275-10, 64125-9 ####[facility] LABCLIA [id number] [place] [address] [place] Iron/TIBC [Molar ratio] 12.0 % Low 15.0-57.0 [facility] Comment on above: Order Comment: Speci men Type: BLOOD SPECIMENOrdering Facility: [facility] Address: [address] [place] [address] Performed By: #### 2 4323-8 ####[facility]ITALLIA [id number] [place] [address] [place]#### 2132-9, 6-4, 51314-5 ####[facility] LABCLIA [id number] [place] [id number] [place] Methylmalonate SerPl-sCncon 02-08-2025 Methylmalonate [Moles/Vol] 0.16 umol/L Normal <=0.40 [facility] Comment on above: Order Comment: Speci men Type: BLOOD SPECIMENOrdering Facility: [facility] Address: [address] [place] [address] Result Comment: This test was developed, and its performance characteristics determined by the [facility] Department of Pathology and Laboratory Medicine. It has not been cleared or approved by the FDA. The [facility] Department of Pathology and Laboratory Medicine is regulated under CLIA as qualified to perform high-complexity testing. This test is used for clinical purposes. It should not be regarded as investigational or for research. Performed By: #### 1 0334-1, 71532-6 ####[facility] LABCLIA [id number] [place] [address] [place] Vit B12 [facility] 07-18-2 025 Cobalamin (Vitamin B12) [Mass/Vol] 986 pg/mL Normal 232-1245 [facility] Comment on above: Order Comment: Speci men Type: BLOOD SPECIMENOrdering Facility: [facility] Address: [address] [place] [address] Performed By: #### 2 4323-8 ####[facility] [id number] [place] [address] [place]#### 2132-9, 2276-4, 72018-2 ####[facility] LABCLIA [id number] [place] [address] [place] CBC W Auto Differential pane l (Bld)on 01-03-2025 Basophils (Bld) [#/Vol] [facility] Basophils/100 WBC (Bld) 0.2 % [facility] Differential cell count method Nom (Bld) Auto [facility] Eosinophils (Bld) [#/Vol] 0.11 10*3/uL [facility] Eosinophils/100 WBC (Bld) 2.2 % [facility] Erythrocyte distribution width (RBC) [Ratio] 14.6 % 11.5 - 15.0 % [facility] Hematocrit (Bld) [Volume fraction] 27.3 % Low 36.0 - 46.0 % [facility] Hemoglobin (Bld) [Mass/Vol] 9.3 g/dL Low 11.5 - 15.5 g/dL [facility] Immature granulocytes (Bld) [#/Vol] NINF [facility] Immature granulocytes/100 WBC (Bld) 0.4 % [facility] Interpretation and review of laboratory results Abnormal [facility] Lymphocytes (Bld) [#/Vol] 0.7 10*3/uL Low [facility] Lymphocytes/100 WBC (Bld) 14.2 % [facility] MCH (RBC) [Entitic mass] 37.8 pg High 26.0 - 34.0 pg [facility] MCHC (RBC) [Mass/Vol] 34.1 g/dL 30.5 - 36.0 g/dL [facility] MCV (RBC) [Entitic vol] 111 fL High 80.0 - 100.0 fL [facility] Monocytes (Bld) [#/Vol] 0.39 10*3/uL [facility] Monocytes/100 WBC (Bld) 7.9 % [facility] Neutrophils (Bld) [#/Vol] 3.69 10*3/uL [facility] Neutrophils/100 WBC (Bld) 75.1 % [facility] Nucleated RBC (Bld) [#/Vol] [facility] Nucleated RBC/100 WBC (Bld) [Ratio] 0 % /100 WBC [facility] Platelet mean volume (Bld) [Entitic vol] 10.9 fL 9.0 - 12.7 fL [facility] Platelets (Bld) [#/Vol] 148 10*3/uL Low [facility] RBC (Bld) [#/Vol] 2.46 10*6/uL Low 3.90 - 5.2 0 m/uL [facility] WBC (Bld) [#/Vol] 4.92 10*3/uL [facility] Basophils (Bld) [#/Vol] 10*3/uL Normal <0.11 [facility] Comment on above: Order Comment: Speci men Type: BLOOD SPECIMENOrdering Facility: [facility] Address: [address] [place] [address] Performed By: #### 5 7021-8 ####[facility] YADI [facility]ITALYANIRA [id number] [place] [address] [place] Basophils/100 WBC (Bld) 0.2 % Normal [facility] Comment on above: Order Comment: Speci men Type: BLOOD SPECIMENOrdering Facility: [facility] Address: [address] [place] [address] Performed By: #### 5 7021-8 ####[facility]ENTERNCLIA [id number] [place] [address] [place] Differential cell count method Nom (Bld) Auto Normal [facility] Comment on above: Order Comment: Speci men Type: BLOOD SPECIMENOrdering Facility: [facility] Address: [address] [place] [address] Performed By: #### 5 7021-8 ####[facility]ERNCM[facility] [id number] [place] [address] [place] Eosinophils (Bld) [#/Vol] 0.11 10*3/uL Normal <0.46 [facility] Comment on above: Order Comment: Speci men Type: BLOOD SPECIMENOrdering Facility: [facility] Address: [address] [place] [address] Performed By: #### 5 7021-8 ####[facility]ALL[facility] [id number] [place] [address] [place] Eosinophils/100 WBC (Bld) 2.2 % Normal [facility] Comment on above: Order Comment: Speci men Type: BLOOD SPECIMENOrdering Facility: [facility] Address: [address] [place] [address] Performed By: #### 5 7021-8 ####[facility] CENTERNCA [id number] [place] [address] [place] Erythrocyte distribution width (RBC) [Ratio] 14.6 % Normal 11.5-15.0 [facility] Comment on above: Order Comment: Speci men Type: BLOOD SPECIMENOrdering Facility: [facility] Address: [address] [place], [place] [address] Performed By: #### 5 7021-8 ####[facility] MILLWNCLIA [id number] [place] [address] [place] Hematocrit (Bld) [Volume fraction] 27.3 % Low 36.0-46.0 [facility] Comment on above: Order Comment: Speci men Type: BLOOD SPECIMENOrdering Facility: [facility] Address: [address] [place] [address] Performed By: #### 5 7021-8 ####[facility]ENTERNCLIA [id number] [place] [address] [place] Hemoglobin (Bld) [Mass/Vol] 9.3 g/dL Low 11.5-15.5 [facility] Comment on above: Order Comment: Speci men Type: BLOOD SPECIMENOrdering Facility: [facility] Address: [address] [place] [address] Performed By: #### 5 7021-8 ####[facility] [id number] [place] [address] [place] Immature granulocytes (Bld) [#/Vol] 10*3/uL Normal <0.10 [facility] Comment on above: Order Comment: Speci men Type: BLOOD SPECIMENOrdering Facility: [facility] Address: [address] [place] [address] Performed By: #### 5 7021-8 ####[facility]ENTERNCLIA [id number] [place] [address] [place] Immature granulocytes/100 WBC (Bld) 0.4 % Normal [facility] Comment on above: Order Comment: Speci men Type: BLOOD SPECIMENOrdering Facility: [facility] Address: [address] [place] [address] Performed By: #### 5 7021-8 ####[facility]ENTERNCLIA [id number] [place] [address] [place] Lymphocytes (Bld) [#/Vol] 0.70 10*3/uL Low 1.00-4.00 [facility] Comment on above: Order Comment: Speci men Type: BLOOD SPECIMENOrdering Facility: [facility] Address: [address] [place] [address] Performed By: #### 5 7021-8 ####[facility] [id number] [place] [address] [place] Lymphocytes/100 WBC (Bld) 14.2 % Normal [facility] Comment on above: Order Comment: Speci men Type: BLOOD SPECIMENOrdering Facility: [facility] Address: [address] [place] [address] Performed By: #### 5 7021-8 ####[facility] [id number] [place] [address] [place] MCH (RBC) [Entitic mass] 37.8 pg High 26.0-34.0 [facility] Comment on above: Order Comment: Speci men Type: BLOOD SPECIMENOrdering Facility: [facility] Address: [address] [place] [address] Performed By: #### 5 7021-8 ####[facility] [id number] [place] [address] [place] MCHC (RBC) [Mass/Vol] 34.1 g/dL Normal 30.5-36.0 [facility] Comment on above: Order Comment: Speci men Type: BLOOD SPECIMENOrdering Facility: [facility] Address: [address] [place] [address] Performed By: #### 5 7021-8 ####[facility]ENTERNCLI [id number] [place] [address] [place] MCV (RBC) [Entitic vol] 111.0 fL High 80.0-100.0 [facility] Comment on above: Order Comment: Speci men Type: BLOOD SPECIMENOrdering Facility: [facility] Address: [address] [place] [address] Performed By: #### 5 7021-8 ####[facility] [id number] [place] [address] [place] Monocytes (Bld) [#/Vol] 0.39 10*3/uL Normal <0.87 [facility] Comment on above: Order Comment: Speci men Type: BLOOD SPECIMENOrdering Facility: [facility] Address: [address] [place] [address] Performed By: #### 5 7021-8 ####[facility] [id number] [place] [address] [place] Monocytes/100 WBC (Bld) 7.9 % Normal [facility] Comment on above: Order Comment: Speci men Type: BLOOD SPECIMENOrdering Facility: [facility] Address: [address] [place] [address] Performed By: #### 5 7021-8 ####[facility] [id number] [place] [address] [place] Neutrophils (Bld) [#/Vol] 3.69 10*3/uL Normal 1.45-7.50 [facility] Comment on above: Order Comment: Speci men Type: BLOOD SPECIMENOrdering Facility: [facility] Address: [address] [place] [address] Performed By: #### 5 7021-8 ####[facility] [id number] [place] [address] [place] Neutrophils/100 WBC (Bld) 75.1 % Normal [facility] Comment on above: Order Comment: Speci men Type: BLOOD SPECIMENOrdering Facility: [facility] Address: [address] [place] [address] Performed By: #### 5 7021-8 ####[facility]ERNCLIA [id number] [place] [address] [place] Nucleated RBC (Bld) [#/Vol] 10*3/uL Normal <0.01 [facility] Comment on above: Order Comment: Speci men Type: BLOOD SPECIMENOrdering Facility: [facility] Address: [address] [place] [address] Performed By: #### 5 7021-8 ####[facility] [id number] [place] [address] [place] Nucleated RBC/100 WBC (Bld) [Ratio] 0.0 /100 WBC Normal [facility] Comment on above: Order Comment: Speci men Type: BLOOD SPECIMENOrdering Facility: [facility] Address: [address] [place] [address] Performed By: #### 5 7021-8 ####[facility]ENTERNCLIA [id number] [place] [address] [place] Platelet mean volume (Bld) [Entitic vol] 10.9 fL Normal 9.0-12.7 [facility] Comment on above: Order Comment: Speci men Type: BLOOD SPECIMENOrdering Facility: [facility] Address: [address] [place] [address] Performed By: #### 5 7021-8 ####[facility]ERNCLIA [id number] [place] [address] [place] Platelets (Bld) [#/Vol] 148 10*3/uL Low 150-400 [facility] Comment on above: Order Comment: Speci men Type: BLOOD SPECIMENOrdering Facility: [facility] Address: [address] [place] [address] Performed By: #### 5 7021-8 ####[facility]ENTERNCLI [id number] [place] [address] [place] RBC (Bld) [#/Vol] 2.46 10*6/uL Low 3.90-5.20 [facility] Comment on above: Order Comment: Speci men Type: BLOOD SPECIMENOrdering Facility: [facility] Address: [address] [place] [address] Performed By: #### 5 7021-8 ####[facility] [id number] [place] [address] [place] WBC (Bld) [#/Vol] 4.92 10*3/uL Normal 3.70-11.00 [facility] Comment on above: Order Comment: Speci men Type: BLOOD SPECIMENOrdering Facility: [facility] Address: [address] [place] [address] Performed By: #### 5 7021-8 ####[facility] [id number] [place] [address] [place] Cancer Ag125 SerPl-aCncon Cancer Ag 125 Qn 30 [arb'U]/mL Normal <39 [facility] Comment on above: Order Comment: Speci men Type: BLOOD SPECIMENOrdering Facility: [facility] Address: [address] [place] [address] Result Comment: CA 1 25 test methodology used is the Electrochemiluminescence Immunoassay by [facility]. Results obtained with different methods or kits cannot be used interchangeably.The reference interval is based on the 95th percentile of 240 apparently healthy premenopausal and postmenopausal women. At a cutoff value of 65 U/mL, the test sensitivity to distinguish ovarian carcinoma (FIGO stage I to IV) versus benign gynecological disease is 79%, with a specificity of 82%.Reference: Cancer Antigen 125 (CA 125 II) [package insert V 1.0 Nigerien]. [facility], [place], [place] (April 2015) Performed By: #### 1 0334-1 ####[facility] LABCLIA [id number] [place] [address] [place] CNOVSPon 11-30-2024 CNOVSP Visit (SP) Office (CJPOB) -- GASPER REED ([id number]) 1950 F Date Time Provider Department 11/30/24 1:30 PM GUERRERO VILCHIS During your visit today, we recorded the following information about you: Temperature Pulse Blood pressure Weight 98.1 degrees 65/minute 177/76 51.7 kg Guerrero Viclhis MD 11/30/2024 1:56 PM Signed Gynecologic Oncology Note [facility] Chief complaint: Ovarian cancer surveillance HPI: This is a 73 year old patient with 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 Doing really well. Feels great after colostomy reversal. Great appetite, no N/V, no concerns with bowel habits. Has some hip pain but no abdominal pain. No VB. Tolerating olaparib well. Some fatigue. ROS: 14 point ROS negative unless indicated in above HPI. Oncologic history: 07/15/23: Diagnostic laparoscopy - extensive infiltration into Ball's pouch, freddy hepatis, dense scarring between liver and diaphragm due to disease infiltration. Debulking aborted. Transverse loop colostomy created. 08/09/23: C1D1 carboplatin/paclitaxel 08/30/23: C2D1 09/20/23: C3D1 10/28/23: Interval debulking surgery. Ex-lap, enterolysis, modified posterior exenterative procedure including radical hysterectomy, BSO, en bloc resection of rectosigmoid colon, bilateral temporary stents (urology). No residual disease. 01/23/24: C6D1 carboplatin/paclitaxel. 02/01/24: Completion CT MELISSA. 03/2024: olaparib started 04/25/2024: colorectal resection biopsy of omentum 09/04/2024: Reversal of transverse loop colostomy PE: EGOG PS 1 BP 177/76 (BP Site: Right Arm, BP Position: Sitting, BP Cuff Size: Regular Adult) Pulse 65 Temp 36.7 ?C (98.1 ?F) (Oral) Wt 51.7 kg (114 lb) SpO2 100% BMI 20.85 kg/m? Gen: well-appearing, NAD, here with her daughter Lungs: unlabored breathing on Ra Abdomen: sort, Nt , no masses, stoma looks good Pelvic: no external lesion, no pelvic masses, no groin adenopathy, speculum inserted with surgically absent cervix, intact cuff, bimanual confirms smooth and intact cuff, no masses or nodularity Extremities: no edema The sensitive examination was discussed with the Patient or Patient's Authorized Apparel Sales Associate. As applicable, any other physician, advance practice provider, medical student, or other health professional student that will be observing or involved in the sensitive examination for educational or training purposes was discussed with the Patient or Authorized Apparel Sales Associate. The Patient or Authorized Apparel Sales Associate has agreed to proceed with the sensitive examination. 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 Ovarian/fallopian tube cancer: - Ca-125 stable. MELISSA based on exam. - Compliant and tolerating olaparib. Dr. Mccoy manages. - Reviewed CT if CA-125 climbs, change in exam or new symptom. - RTC in 3 months. BRIP1 mutation: - Daughter tested negative - Son aware but has not tested yet Guerrero Vilchis MD, MPH Gynecologic Oncologist Medical Decision Making: Problems: Moderate: 2+ stable chronic illnesses Data: Unique test result(s) reviewed: 1 Risk: Low: Low risk from testing/treatment Medical Decision Making Level: 3 - Low Referring Provider: GUERRERO VILCHIS [[id number]] Allergies As of Date: 11/30/2024 Noted Allergy Reaction ERYTHROMYCIN 02/09/2008 6 - Diarrhea 8 - GI Upset Comments: Abdominal cramping PENICILLINS 02/09/2008 16 - Unknown Date Reviewed: 11/30/2024 Reviewed by: RauhGuerrero Barry MD - Fully Assessed Reason for Visit: Established Patient [175] Primary Visit Diagnosis:Ovarian cancer, bilateral (HCC) [C56.3] Other Visit Diagnosis:BRIP1 gene mutation positive [Z15.89] Prescriptions as of 11/30/2024 - magnesium oxide 200 mg magnesium tab Take by mouth. - pantoprazole DR (PROTONIX) 40 mg tablet TAKE 1 TABLET BY MOUTH EVERY DAY - olaparib (LYNPARZA) 100 mg tablet Take 2 tablets (200 mg) by mouth two times a day. - lisinopril-hydroCHLOROthia zide (ZESTORETIC) 20-12.5 mg per tablet Take 1 tablet by mouth two times a day. - ondansetron (ZOFRAN) 8 mg tablet Take 1 tablet by mouth every 8 hours as needed for nausea/vomiting. - vitamin b complex capsule Take 1 capsule by mouth once daily. - oxybutynin ER (DITROPAN XL) 10 mg 24 hr tablet Take 15 mg by mouth once daily. - calcium carbonate (CALCIUM 600 ORAL) Take 1 tablet by mouth once daily. Problem List As Of Date 11/30/2024 Noted Resolved Chronic hypertension [I10] 07/25/1994 Other chronic allergic conjunctiv (more content not included)... Normal [facility] CBC W Auto Differential pane l (Bld)on 11-29-2024 Basophils (Bld) [#/Vol] [facility] Basophils/100 WBC (Bld) 0.4 % [facility] Differential cell count method Nom (Bld) Auto [facility] Eosinophils (Bld) [#/Vol] 0.13 10*3/uL [facility] Eosinophils/100 WBC (Bld) 2.4 % [facility] Erythrocyte distribution width (RBC) [Ratio] 14.6 % 11.5 - 15.0 % [facility] Hematocrit (Bld) [Volume fraction] 30.1 % Low 36.0 - 46.0 % [facility] Hemoglobin (Bld) [Mass/Vol] 10.3 g/dL Low 11.5 - 15.5 g/dL [facility] Immature granulocytes (Bld) [#/Vol] [facility] Immature granulocytes/100 WBC (Bld) 0 % [facility] Interpretation and review of laboratory results Abnormal [facility] Lymphocytes (Bld) [#/Vol] 0.91 10*3/uL Low [facility] Lymphocytes/100 WBC (Bld) 16.8 % [facility] MCH (RBC) [Entitic mass] 38 pg High 26.0 - 34.0 pg [facility] MCHC (RBC) [Mass/Vol] 34.2 g/dL 30.5 - 36.0 g/dL [facility] MCV (RBC) [Entitic vol] 111.1 fL High 80.0 - 100.0 fL [facility] Monocytes (Bld) [#/Vol] 0.54 10*3/uL NINF [facility] Monocytes/100 WBC (Bld) 10 % [facility] Neutrophils (Bld) [#/Vol] 3.82 10*3/uL [facility] Neutrophils/100 WBC (Bld) 70.4 % [facility] Nucleated RBC (Bld) [#/Vol] NINF [facility] Nucleated RBC/100 WBC (Bld) [Ratio] 0 % /100 WBC [facility] Platelet mean volume (Bld) [Entitic vol] 10.9 fL 9.0 - 12.7 fL [facility] Platelets (Bld) [#/Vol] 149 10*3/uL Low [facility] RBC (Bld) [#/Vol] 2.71 10*6/uL Low 3.90 - 5.2 0 m/uL [facility] WBC (Bld) [#/Vol] 5.42 10*3/uL [facility] Basophils (Bld) [#/Vol] 10*3/uL Normal <0.11 [facility] Comment on above: Order Comment: Speci men Type: BLOOD SPECIMENOrdering Facility: [facility] Address: [address] [place] [address] Performed By: #### 5 7021-8 ####[facility] Y[facility]ISELECT [facility] [id number] [address] [place] Basophils/100 WBC (Bld) 0.4 % Normal [facility] Comment on above: Order Comment: Speci men Type: BLOOD SPECIMENOrdering Facility: [facility] Address: [address] [place] [address] Performed By: #### 5 7021-8 ####[facility]ERNCLIA [id number] [place] [address] [place] Differential cell count method Nom (Bld) Auto Normal [facility] Comment on above: Order Comment: Speci men Type: BLOOD SPECIMENOrdering Facility: [facility] Address: [address] [place] [address] Performed By: #### 5 7021-8 ####[facility]PITALLI [id number] [place] [address] [place] Eosinophils (Bld) [#/Vol] 0.13 10*3/uL Normal <0.46 [facility] Comment on above: Order Comment: Speci men Type: BLOOD SPECIMENOrdering Facility: [facility] Address: [address] [place] [address] Performed By: #### 5 7021-8 ####[facility] [id number] [place] [address] [place] Eosinophils/100 WBC (Bld) 2.4 % Normal [facility] Comment on above: Order Comment: Speci men Type: BLOOD SPECIMENOrdering Facility: [facility] Address: [address] [place] [address] Performed By: #### 5 7021-8 ####[facility] [id number] [place] [address] [place] Erythrocyte distribution width (RBC) [Ratio] 14.6 % Normal 11.5-15.0 [facility] Comment on above: Order Comment: Speci men Type: BLOOD SPECIMENOrdering Facility: [facility] Address: [address] [place] [address] Performed By: #### 5 7021-8 ####[facility]ENTERNCLIA [id number] [place] [address] [place] Hematocrit (Bld) [Volume fraction] 30.1 % Low 36.0-46.0 [facility] Comment on above: Order Comment: Speci men Type: BLOOD SPECIMENOrdering Facility: [facility] Address: [address] [place] [address] Performed By: #### 5 7021-8 ####[facility] [id number] [place] [address] [place] Hemoglobin (Bld) [Mass/Vol] 10.3 g/dL Low 11.5-15.5 [facility] Comment on above: Order Comment: Speci men Type: BLOOD SPECIMENOrdering Facility: [facility] Address: [address] [place] [address] Performed By: #### 5 7021-8 ####[facility] [id number] [place] [address] [place] Immature granulocytes (Bld) [#/Vol] 10*3/uL Normal <0.10 [facility] Comment on above: Order Comment: Speci men Type: BLOOD SPECIMENOrdering Facility: [facility] Address: [address] [place] [address] Performed By: #### 5 7021-8 ####[facility] [id number] [place] [address] [place] Immature granulocytes/100 WBC (Bld) 0.0 % Normal [facility] Comment on above: Order Comment: Speci men Type: BLOOD SPECIMENOrdering Facility: [facility] Address: [address] [place] [address] Performed By: #### 5 7021-8 ####[facility] [id number] [place] [address] [place] Lymphocytes (Bld) [#/Vol] 0.91 10*3/uL Low 1.00-4.00 [facility] Comment on above: Order Comment: Speci men Type: BLOOD SPECIMENOrdering Facility: [facility] Address: [address] [place] [address] Performed By: #### 5 7021-8 ####[facility] CENTERYANIRA [id number] [place] [address] [place] Lymphocytes/100 WBC (Bld) 16.8 % Normal [facility] Comment on above: Order Comment: Speci men Type: BLOOD SPECIMENOrdering Facility: [facility] Address: [address] [place] [address] Performed By: #### 5 7021-8 ####[facility]ENTERNCMOUNT[facility] [id number] [place] [address] [place] MCH (RBC) [Entitic mass] 38.0 pg High 26.0-34.0 [facility] Comment on above: Order Comment: Speci men Type: BLOOD SPECIMENOrdering Facility: [facility] Address: [address] [place] [address] Performed By: #### 5 7021-8 ####[facility]ENTERNCMOUNT[facility] [id number] [place] [address] [place] MCHC (RBC) [Mass/Vol] 34.2 g/dL Normal 30.5-36.0 [facility] Comment on above: Order Comment: Speci men Type: BLOOD SPECIMENOrdering Facility: [facility] Address: [address] [place] [address] Performed By: #### 5 7021-8 ####[facility]ENTERNCMOUNT[facility] [id number] [place] [address] [place] MCV (RBC) [Entitic vol] 111.1 fL High 80.0-100.0 [facility] Comment on above: Order Comment: Speci men Type: BLOOD SPECIMENOrdering Facility: [facility] Address: [address] [place] [address] Performed By: #### 5 7021-8 ####[facility] MILLTOWNCLIA [id number] [place] [address] [place] Monocytes (Bld) [#/Vol] 0.54 10*3/uL Normal <0.87 [facility] Comment on above: Order Comment: Speci men Type: BLOOD SPECIMENOrdering Facility: [facility] Address: [address] [place] [address] Performed By: #### 5 7021-8 ####[facility] NAPLESWNCLIA [id number] [place] [address] [place] Monocytes/100 WBC (Bld) 10.0 % Normal [facility] Comment on above: Order Comment: Speci men Type: BLOOD SPECIMENOrdering Facility: [facility] Address: [address] [place] [address] Performed By: #### 5 7021-8 ####[facility] NAPLESWNCLIA [id number] [place] [address] [place] Neutrophils (Bld) [#/Vol] 3.82 10*3/uL Normal 1.45-7.50 [facility] Comment on above: Order Comment: Speci men Type: BLOOD SPECIMENOrdering Facility: [facility] Address: [address] [place] [address] Performed By: #### 5 7021-8 ####[facility]PITALLIA [id number] [place] [address] [place] Neutrophils/100 WBC (Bld) 70.4 % Normal [facility] Comment on above: Order Comment: Speci men Type: BLOOD SPECIMENOrdering Facility: [facility] Address: [address] [place] [address] Performed By: #### 5 7021-8 ####[facility]PITALLIA [id number] [place] [address] [place] Nucleated RBC (Bld) [#/Vol] 10*3/uL Normal <0.01 [facility] Comment on above: Order Comment: Speci men Type: BLOOD SPECIMENOrdering Facility: [facility] Address: [address] [place] [address] Performed By: #### 5 7021-8 ####[facility]ENTERNCMOUNT[facility] [id number] [place] [address] [place] Nucleated RBC/100 WBC (Bld) [Ratio] 0.0 /100 WBC Normal [facility] Comment on above: Order Comment: Speci men Type: BLOOD SPECIMENOrdering Facility: [facility] Address: [address] [place] [address] Performed By: #### 5 7021-8 ####[facility] [id number] [place] [address] [place] Platelet mean volume (Bld) [Entitic vol] 10.9 fL Normal 9.0-12.7 [facility] Comment on above: Order Comment: Speci men Type: BLOOD SPECIMENOrdering Facility: [facility] Address: [address] [place] [address] Performed By: #### 5 7021-8 ####[facility] [id number] [place] [address] [place] Platelets (Bld) [#/Vol] 149 10*3/uL Low 150-400 [facility] Comment on above: Order Comment: Speci men Type: BLOOD SPECIMENOrdering Facility: [facility] Address: [address] [place] [address] Performed By: #### 5 7021-8 ####[facility] [id number] [place] [address] [place] RBC (Bld) [#/Vol] 2.71 10*6/uL Low 3.90-5.20 [facility] Comment on above: Order Comment: Speci men Type: BLOOD SPECIMENOrdering Facility: [facility] Address: [address] [place] [address] Performed By: #### 5 7021-8 ####[facility] CENTERNCA [id number] [place] [address] [place] WBC (Bld) [#/Vol] 5.42 10*3/uL Normal 3.70-11.00 [facility] Comment on above: Order Comment: Speci men Type: BLOOD SPECIMENOrdering Facility: [facility] Address: [address] [place] [address] Performed By: #### 5 7021-8 ####[facility] CENTERNCA [id number] [place] [address] [place] Cancer Ag125 SerPl-aCncon Cancer Ag 125 Qn 30 [arb'U]/mL Normal <39 [facility] Comment on above: Order Comment: Speci men Type: BLOOD SPECIMENOrdering Facility: [facility] Address: [address] [place] [address] Result Comment: CA 1 25 test methodology used is the Electrochemiluminescence Immunoassay by [employer]. Results obtained with different methods or kits cannot be used interchangeably.The reference interval is based on the 95th percentile of 240 apparently healthy premenopausal and postmenopausal women. At a cutoff value of 65 U/mL, the test sensitivity to distinguish ovarian carcinoma (FIGO stage I to IV) versus benign gynecological disease is 79%, with a specificity of 82%.Reference: Cancer Antigen 125 (CA 125 II) [package insert V 1.0 [place]ien]. [facility], [place], [place] (April 2015) Performed By: #### 1 0334-1 ####[facility] LABCLIA [id number] [place] [address] [place] CBC W Auto Differential pane l (Bld)on 11-02-2024 Basophils (Bld) [#/Vol] NINF [facility] Basophils/100 WBC (Bld) 0.4 % [facility] Differential cell count method Nom (Bld) Auto [facility] Eosinophils (Bld) [#/Vol] 0.1 10*3/uL [facility] Eosinophils/100 WBC (Bld) 2.2 % [facility] Erythrocyte distribution width (RBC) [Ratio] 14.6 % 11.5 - 15.0 % [facility] Hematocrit (Bld) [Volume fraction] 28 % Low 36.0 - 46.0 % [facility] Hemoglobin (Bld) [Mass/Vol] 9.6 g/dL Low 11.5 - 15.5 g/dL [facility] Immature granulocytes (Bld) [#/Vol] [facility] Immature granulocytes/100 WBC (Bld) 0.2 % [facility] Interpretation and review of laboratory results Abnormal [facility] Lymphocytes (Bld) [#/Vol] 0.84 10*3/uL Low [facility] Lymphocytes/100 WBC (Bld) 18.7 % [facility] MCH (RBC) [Entitic mass] 37.8 pg High 26.0 - 34.0 pg [facility] MCHC (RBC) [Mass/Vol] 34.3 g/dL 30.5 - 36.0 g/dL [facility] MCV (RBC) [Entitic vol] 110.2 fL High 80.0 - 100.0 fL [facility] Monocytes (Bld) [#/Vol] 0.34 10*3/uL [facility] Monocytes/100 WBC (Bld) 7.6 % [facility] Neutrophils (Bld) [#/Vol] 3.19 10*3/uL [facility] Neutrophils/100 WBC (Bld) 70.9 % [facility] Nucleated RBC (Bld) [#/Vol] [facility] Nucleated RBC/100 WBC (Bld) [Ratio] 0 % /100 WBC [facility] Platelet mean volume (Bld) [Entitic vol] 10.7 fL 9.0 - 12.7 fL [facility] Platelets (Bld) [#/Vol] 144 10*3/uL Low [facility] RBC (Bld) [#/Vol] 2.54 10*6/uL Low 3.90 - 5.2 0 m/uL [facility] WBC (Bld) [#/Vol] 4.5 10*3/uL [facility] Basophils (Bld) [#/Vol] 10*3/uL Normal <0.11 [facility] Comment on above: Order Comment: Speci men Type: BLOOD SPECIMENOrdering Facility: [facility] Address: [address] [place] [address] Performed By: #### 5 7021-8 ####[facility]ITALLIA [id number] [place] [address] [place] Basophils/100 WBC (Bld) 0.4 % Normal [facility] Comment on above: Order Comment: Speci men Type: BLOOD SPECIMENOrdering Facility: [facility] Address: [address] [place] [address] Performed By: #### 5 7021-8 ####[facility]ENTERA [id number] [place] [address] [place] Differential cell count method Nom (Bld) Auto Normal [facility] Comment on above: Order Comment: Speci men Type: BLOOD SPECIMENOrdering Facility: [facility] Address: [address] [place] [address] Performed By: #### 5 7021-8 ####[facility]ENTERA [id number] [place] [address] [place] Eosinophils (Bld) [#/Vol] 0.10 10*3/uL Normal <0.46 [facility] Comment on above: Order Comment: Speci men Type: BLOOD SPECIMENOrdering Facility: [facility] Address: [address] [place] [address] Performed By: #### 5 7021-8 ####[facility]ENTERA [id number] [place] [address] [place] Eosinophils/100 WBC (Bld) 2.2 % Normal [facility] Comment on above: Order Comment: Speci men Type: BLOOD SPECIMENOrdering Facility: [facility] Address: [address] [place] [address] Performed By: #### 5 7021-8 ####[facility]ENTERNCLIA [id number] [place] [address] [place] Erythrocyte distribution width (RBC) [Ratio] 14.6 % Normal 11.5-15.0 [facility] Comment on above: Order Comment: Speci men Type: BLOOD SPECIMENOrdering Facility: [facility] Address: [address] [place] [address] Performed By: #### 5 7021-8 ####[facility] [id number] [place] [address] [place] Hematocrit (Bld) [Volume fraction] 28.0 % Low 36.0-46.0 [facility] Comment on above: Order Comment: Speci men Type: BLOOD SPECIMENOrdering Facility: [facility] Address: [address] [place] [address] Performed By: #### 5 7021-8 ####[facility] [id number] [place] [address] [place] Hemoglobin (Bld) [Mass/Vol] 9.6 g/dL Low 11.5-15.5 [facility] Comment on above: Order Comment: Speci men Type: BLOOD SPECIMENOrdering Facility: [facility] Address: [address] [place] [address] Performed By: #### 5 7021-8 ####[facility]ALL[facility] [id number] [place] [address] [place] Immature granulocytes (Bld) [#/Vol] 10*3/uL Normal <0.10 [facility] Comment on above: Order Comment: Speci men Type: BLOOD SPECIMENOrdering Facility: [facility] Address: [address] [place] [address] Performed By: #### 5 7021-8 ####[facility] [id number] [place] [address] [place] Immature granulocytes/100 WBC (Bld) 0.2 % Normal [facility] Comment on above: Order Comment: Speci men Type: BLOOD SPECIMENOrdering Facility: [facility] Address: [address] [place] [address] Performed By: #### 5 7021-8 ####[facility]ERN[facility] [id number] [place] [address] [place] Lymphocytes (Bld) [#/Vol] 0.84 10*3/uL Low 1.00-4.00 [facility] Comment on above: Order Comment: Speci men Type: BLOOD SPECIMENOrdering Facility: [facility] Address: [address] [place] [address] Performed By: #### 5 7021-8 ####[facility] [id number] [place] [address] [place] Lymphocytes/100 WBC (Bld) 18.7 % Normal [facility] Comment on above: Order Comment: Speci men Type: BLOOD SPECIMENOrdering Facility: [facility] Address: [address] [place] [address] Performed By: #### 5 7021-8 ####[facility]ENTERNCLI [id number] [place] [address] [place] MCH (RBC) [Entitic mass] 37.8 pg High 26.0-34.0 [facility] Comment on above: Order Comment: Speci men Type: BLOOD SPECIMENOrdering Facility: [facility] Address: [address] [place] [address] Performed By: #### 5 7021-8 ####[facility]ENTERNCLI [id number] [place] [address] [place] MCHC (RBC) [Mass/Vol] 34.3 g/dL Normal 30.5-36.0 [facility] Comment on above: Order Comment: Speci men Type: BLOOD SPECIMENOrdering Facility: [facility] Address: [address] [place] [address] Performed By: #### 5 7021-8 ####[facility] JARONSofyaNCJASE [id number] [place] [address] [place] MCV (RBC) [Entitic vol] 110.2 fL High 80.0-100.0 [facility] Comment on above: Order Comment: Speci men Type: BLOOD SPECIMENOrdering Facility: [facility] Address: [address] [place] [address] Performed By: #### 5 7021-8 ####[facility] CENTERNCDarryl [id number] [place] [address] [place] Monocytes (Bld) [#/Vol] 0.34 10*3/uL Normal <0.87 [facility] Comment on above: Order Comment: Speci men Type: BLOOD SPECIMENOrdering Facility: [facility] Address: [address] [place] [address] Performed By: #### 5 7021-8 ####[facility]ALLIA [id number] [place] [address] [place] Monocytes/100 WBC (Bld) 7.6 % Normal [facility] Comment on above: Order Comment: Speci men Type: BLOOD SPECIMENOrdering Facility: [facility] Address: [address] [place] [address] Performed By: #### 5 7021-8 ####[facility] CENTERNCLIA [id number] [place] [address] [place] Neutrophils (Bld) [#/Vol] 3.19 10*3/uL Normal 1.45-7.50 [facility] Comment on above: Order Comment: Speci men Type: BLOOD SPECIMENOrdering Facility: [facility] Address: [address] [place] [address] Performed By: #### 5 7021-8 ####[facility] NAPLESWNCLIA [id number] [place] [address] [place] Neutrophils/100 WBC (Bld) 70.9 % Normal [facility] Comment on above: Order Comment: Speci men Type: BLOOD SPECIMENOrdering Facility: [facility] Address: [address] [place] [address] Performed By: #### 5 7021-8 ####[facility]OSPITALLIA [id number] [place] [address] [place] Nucleated RBC (Bld) [#/Vol] 10*3/uL Normal <0.01 [facility] Comment on above: Order Comment: Speci men Type: BLOOD SPECIMENOrdering Facility: [facility] Address: [address] [place] [address] Performed By: #### 5 7021-8 ####[facility] [id number] [place] [address] [place] Nucleated RBC/100 WBC (Bld) [Ratio] 0.0 /100 WBC Normal [facility] Comment on above: Order Comment: Speci men Type: BLOOD SPECIMENOrdering Facility: [facility] Address: [address] [place] [address] Performed By: #### 5 7021-8 ####[facility] HOSPITALLIA [id number] [place] [address] [place] Platelet mean volume (Bld) [Entitic vol] 10.7 fL Normal 9.0-12.7 [facility] Comment on above: Order Comment: Speci men Type: BLOOD SPECIMENOrdering Facility: [facility] Address: [address] [place] [address] Performed By: #### 5 7021-8 ####[facility]ERN[facility] [id number] [place] [id number] [place] Platelets (Bld) [#/Vol] 144 10*3/uL Low 150-400 [facility] Comment on above: Order Comment: Speci men Type: BLOOD SPECIMENOrdering Facility: [facility] Address: [address] [place] [address] Performed By: #### 5 7021-8 ####[facility] CENTERNCA [id number] [place] [id number] [place] RBC (Bld) [#/Vol] 2.54 10*6/uL Low 3.90-5.20 [facility] Comment on above: Order Comment: Speci men Type: BLOOD SPECIMENOrdering Facility: [facility] Address: [address] [place] [address] Performed By: #### 5 7021-8 ####[facility] CENTERNCA [id number] [place] [address] [place] WBC (Bld) [#/Vol] 4.50 10*3/uL Normal 3.70-11.00 [facility] Comment on above: Order Comment: Speci men Type: BLOOD SPECIMENOrdering Facility: [facility] Address: [address] [place] [address] Performed By: #### 5 7021-8 ####[facility] CENTERA [id number] [place] [id number] [place] CNOVSPon 11-02-2024 CNOVSP Normal [facility] CNPNon 11-02-2024 CNPN Normal [facility] Cancer Ag125 SerPl-aCncon Cancer Ag 125 Qn 28 [arb'U]/mL Normal <39 [facility] Comment on above: Order Comment: Speci men Type: BLOOD SPECIMENOrdering Facility: [facility] Address: [address] [place] [address] Result Comment: CA 1 25 test methodology used is the Electrochemiluminescence Immunoassay by [employer]. Results obtained with different methods or kits cannot be used interchangeably.The reference interval is based on the 95th percentile of 240 apparently healthy premenopausal and postmenopausal women. At a cutoff value of 65 U/mL, the test sensitivity to distinguish ovarian carcinoma (FIGO stage I to IV) versus benign gynecological disease is 79%, with a specificity of 82%.Reference: Cancer Antigen 125 (CA 125 II) [package insert V 1.0 Nigerien]. [employer], [place], [place] (April 2015) Performed By: #### 1 0334-1 ####[facility] LABCLIA [id number] [address] [place] Comprehensive metabolic 2000 panelOrdered By: Sophia Hall on 11-02-2024 Albumin [Mass/Vol] 4.3 g/dL 3.9 - 4.9 g/dL [facility] ALP [Catalytic activity/Vol] 95 U/L 34 - 123 U/L [facility] ALT [Catalytic activity/Vol] 23 U/L 7 - 38 U/L [facility] Anion gap [Moles/Vol] 8 mmol/L 8 - 15 mmol/L [facility] AST [Catalytic activity/Vol] 29 U/L 13 - 35 U/L [facility] Bilirubin [Mass/Vol] 0.8 mg/dL 0.2 - 1 .3 mg/dL [facility] Calcium [Mass/Vol] 10.1 mg/dL 8.5 - 10. 2 mg/dL [facility] Chloride [Moles/Vol] 105 mmol/L 98 - 10 7 mmol/L [facility] CO2 [Moles/Vol] 28 mmol/L 22 - 30 mmol/L [facility] Creatinine [Mass/Vol] 1.28 mg/dL High 0.58 - 0.96 mg/dL [facility] GFR/1.73 sq M.predicted among non-blacks MDRD (S/P/Bld) [Vol rate/Area] 44 mL/min/{1.73_m2} Low - PINF [facility] Comment on above: Estimated Glomerular Filtration Rate (eGFR) is calculated using the 2020 CKD-EPI creatinine equation. This equation utilizes serum creatinine, sex, and age as parameters. The creatinine assay has traceable calibration to isotope dilution-mass spectrometry. Refer to KDIGO guidelines for clinical interpretation. In patients with unstable renal function, e.g. those with acute kidney injury, the eGFR may not accurately reflect actual GFR. Glucose [Mass/Vol] 130 mg/dL High 74 - 99 mg/dL [facility] Comment on above: The [place] Diab[employer] s Association (ADA) provides guidance for cutoff values for fasting glucose and random glucose. The ADA defines fasting as no caloric intake for at least 8 hours. Fasting plasma glucose results between 100 to 125 mg/dL indicate increased risk for diabetes (prediabetes). Fasting plasma glucose results greater than or equal to 126 mg/dL meet the criteria for diagnosis of diabetes. In the absence of unequivocal hyperglycemia, results should be confirmed by repeat testing. In a patient with classic symptoms of hyperglycemia or hyperglycemic crisis, random plasma glucose results greater than or equal to 200 mg/dL meet the criteria for diagnosis of diabetes. Reference: Standards of Medical Care in Diabetes 2016, [place] Diabetes Association. Diabetes Care. 2016.39(Suppl 1). Interpretation and review of laboratory results Abnormal [facility] Potassium [Moles/Vol] 4.2 mmol/L 3.7 - 5.1 mmol/L [facility] Protein [Mass/Vol] 6.5 g/dL 6.3 - 8.0 g/dL [facility] Sodium [Moles/Vol] 141 mmol/L 136 - 144 mmol/L [facility] Urea nitrogen [Mass/Vol] 35 mg/dL High 7 - 21 mg/dL [facility] Comprehensive metabolic 2000 panelon 11-02-2024 Albumin [Mass/Vol] 4.3 g/dL Normal 3.9-4.9 [facility] Comment on above: Order Comment: Riaz hernández Type: BLOOD SPECIMENOrdering Facility: [facility] Address: [address] [place] [address] Performed By: #### 2 4323-8 ####[facility] [id number] [place] [address] [place] ALP [Catalytic activity/Vol] 95 U/L Normal 34-123 [facility] Comment on above: Order Comment: Riaz hernández Type: BLOOD SPECIMENOrdering Facility: [facility] Address: [address] [place] [address] Performed By: #### 2 4323-8 ####[facility] YADI MILLTOWNCLIA [id number] [place] [address] [place] ALT [Catalytic activity/Vol] 23 U/L Normal 7-38 [facility] Comment on above: Order Comment: Speci men Type: BLOOD SPECIMENOrdering Facility: [facility] Address: [address] [place] [address] Performed By: #### 2 4323-8 ####[facility] MILLTOWNCLIA [id number] [place] [address] [place] Anion gap [Moles/Vol] 8 mmol/L Normal 8-15 [facility] Comment on above: Order Comment: Speci men Type: BLOOD SPECIMENOrdering Facility: [facility] Address: [address] [place] [address] Performed By: #### 2 4323-8 ####[facility] MILLWNCLIA [id number] [place] [address] [place] AST [Catalytic activity/Vol] 29 U/L Normal 13-35 [facility] Comment on above: Order Comment: Speci men Type: BLOOD SPECIMENOrdering Facility: [facility] Address: [address] [place] [address] Performed By: #### 2 4323-8 ####[facility] MILLTOWNCLIA [id number] [place] [address] [place] Bilirubin [Mass/Vol] 0.8 mg/dL Normal 0.2-1.3 [facility] Comment on above: Order Comment: Speci men Type: BLOOD SPECIMENOrdering Facility: [facility] Address: [address] [place] [address] Performed By: #### 2 4323-8 ####[facility] MILLTOWNCLIA [id number] [place] [address] [place] Calcium [Mass/Vol] 10.1 mg/dL Normal 8.5-10.2 [facility] Comment on above: Order Comment: Speci men Type: BLOOD SPECIMENOrdering Facility: [facility] Address: [address] [place] [address] Performed By: #### 2 4323-8 ####[facility] NAPLESWNCLIA [id number] [place] [address] [place] Chloride [Moles/Vol] 105 mmol/L Normal 98-107 [facility] Comment on above: Order Comment: Speci men Type: BLOOD SPECIMENOrdering Facility: [facility] Address: [address] [place] [address] Performed By: #### 2 4323-8 ####[facility]PITALLIA [id number] [place] [address] [place] CO2 [Moles/Vol] 28 mmol/L Normal 22-30 [facility] Comment on above: Order Comment: Speci men Type: BLOOD SPECIMENOrdering Facility: [facility] Address: [address] [place] [address] Performed By: #### 2 4323-8 ####[facility]PITALLIA [id number] [place] [address] [place] Creatinine [Mass/Vol] 1.28 mg/dL High 0.58-0.96 [facility] Comment on above: Order Comment: Speci men Type: BLOOD SPECIMENOrdering Facility: [facility] Address: [address] [place] [address] Performed By: #### 2 4323-8 ####[facility] CENTERNCLIA [id number] [place] [address] [place] Creatinine and Glomerular filtration rate.predicted panel (S/P/Bld) 44 mL/min/1.73m??? Low >=60 [facility] Comment on above: Order Comment: Speci men Type: BLOOD SPECIMENOrdering Facility: [facility] Address: [address] [place] [address] Result Comment: Fernanda mated Glomerular Filtration Rate (eGFR) is calculated using the 2020 CKD-EPI creatinine equation. This equation utilizes serum creatinine, sex, and age as parameters. The creatinine assay has traceable calibration to isotope dilution-mass spectrometry. Refer to KDIGO guidelines for clinical interpretation. In patients with unstable renal function, e.g. those with acute kidney injury, the eGFR may not accurately reflect actual GFR. Performed By: #### 2 4323-8 ####[facility] [id number] [place] [address] [place] Glucose [Mass/Vol] 130 mg/dL High 74-99 [facility] Comment on above: Order Comment: Speci betty Type: BLOOD SPECIMENOrdering Facility: [facility] Address: [address] [place] [address] Result Comment: The [place] Diabetes Association (ADA) provides guidance for cutoff values for fasting glucose and random glucose. The ADA defines fasting as no caloric intake for at least 8 hours. Fasting plasma glucose results between 100 to 125 mg/dL indicate increased risk for diabetes (prediabetes).Fasting plasma glucose results greater than or equal to 126 mg/dL meet the criteria for diagnosis of diabetes. In the absence of unequivocal hyperglycemia, results should be confirmed by repeat testing. In a patient with classic symptoms of hyperglycemia or hyperglycemic crisis, random plasma glucose results greater than or equal to 200 mg/dL meet the criteria for diagnosis of diabetes.Reference: Standards of Medical Care in Diabetes 2016, [place] Diabetes Association. Diabetes Care. 2016.39(Suppl 1). Performed By: #### 2 4323-8 ####[facility] CENTERNCLIA [id number] [place] [address] [place] Potassium [Moles/Vol] 4.2 mmol/L Normal 3.7-5.1 [facility] Comment on above: Order Comment: Riaz men Type: BLOOD SPECIMENOrdering Facility: [facility] Address: [address] [place] [id number] Performed By: #### 2 4323-8 ####[facility] MILLTOWNCLIA [id number] [place] [address] [place] Protein [Mass/Vol] 6.5 g/dL Normal 6.3-8.0 [facility] Comment on above: Order Comment: Speci men Type: BLOOD SPECIMENOrdering Facility: [facility] Address: [address] [place] [address] Performed By: #### 2 4323-8 ####[facility] MILLWNCLIA [id number] [place] [address] [place] Sodium [Moles/Vol] 141 mmol/L Normal 136-144 [facility] Comment on above: Order Comment: Speci men Type: BLOOD SPECIMENOrdering Facility: [facility] Address: [address] [place] [address] Performed By: #### 2 4323-8 ####[facility]PITALLIA [id number] [place] [address] [place] Urea nitrogen [Mass/Vol] 35 mg/dL High 7-21 [facility] Comment on above: Order Comment: Speci men Type: BLOOD SPECIMENOrdering Facility: [facility] Address: [address] [place] [address] Performed By: #### 2 4323-8 ####[facility] CENTERNCLIA [id number] [address] [place] Sada 10-23-2024 SYLVIEN Telephone ([facility]) -- GASPER REED ([id number]) 1950 F Date Time Provider Department 10/23/24 ESTUARDO LONG [facility] During your visit today, we recorded the following information about you: Estuardo Long RN 10/23/2024 11:04 AM Signed [employer] ONE MONTH FOLLOW UP PHONE CALL PHONE CALL DATE: 10/23/2024 PHONE CALL TIME: 11:03 AM DATE OF SURGERY: 09/04/2024 PROCEDURE: Closure of loop colostomy FOLLOW UP QUESTIONS: Is your appetite gradually improving? Yes Is your incision healing well? Yes Are you having regular bowel movements? Yes Did you have a good experience with your recent hospital stay? Yes Have you completed your follow up visit with your surgeon? Yes Patient states she's feeling great. She has no concerns at this time. Encouraged to call MD for questions/concerns. SIGNATURE: Estuardo Long RN DATE: 10/23/2024 TIME: 11:03 AM CONTACT #:[phone] Allergies As of Date: 10/23/2024 Noted Allergy Reaction ERYTHROMYCIN 02/09/2008 6 - Diarrhea 8 - GI Upset Comments: Abdominal cramping PENICILLINS 02/09/2008 16 - Unknown Date Reviewed: 10/17/2024 Reviewed by: Mark Kruse II, OD - Fully Assessed Reason for Visit: Linen Folder - Hospital Follow Up [7788] Prescriptions as of 10/23/2024 - olaparib (LYNPARZA) 100 mg tablet Take 2 tablets (200 mg) by mouth two times a day. - metroNIDAZOLE (FLAGYL) 500 mg tablet Take two tabs by mouth at 1pm, 3pm, and 11pm the day prior to surgery. - neomycin 500 mg tablet Take two tabs by mouth at 1pm, 3pm, and 11pm the day prior to the surgery. - promethazine (PHENERGAN) 25 mg tablet Take 1 tab by mouth every 4 hours as needed for nausea. - lisinopril-hydroCHLOROthia zide (ZESTORETIC) 20-12.5 mg per tablet Take 1 tablet by mouth two times a day. - promethazine (PHENERGAN) 25 mg tablet Take 1 tab by mouth every 4 hours as needed for nausea. - pantoprazole DR (PROTONIX) 40 mg tablet take 1 tablet by mouth every day - ondansetron (ZOFRAN) 8 mg tablet Take 1 tablet by mouth every 8 hours as needed for nausea/vomiting. - acetaminophen (TYLENOL) 500 mg tablet Take 2 tablets by mouth every 6 hours. - vitamin b complex capsule Take 1 capsule by mouth once daily. - oxybutynin ER (DITROPAN XL) 10 mg 24 hr tablet Take 15 mg by mouth once daily. - calcium carbonate (CALCIUM 600 ORAL) Take 1 tablet by mouth once daily. Problem List As Of Date 10/23/2024 Noted Resolved Chronic hypertension [I10] 07/25/1994 Other chronic allergic conjunctivitis [H10.45] 04/11/2014 Myopia, bilateral [H52.13] 04/11/2014 Regular astigmatism [H52.229] 04/11/2014 Presbyopia [H52.4] 04/11/2014 Vitreous floaters of both eyes [H43.393] 05/27/2015 Long-term use of Plaquenil [Z79.899] 06/08/2016 Combined forms of age-related cataract, bilater*06/20/2018 Ovarian mass [N83.8] 07/10/2023 07/31/2023 Severe protein-calorie malnutrition (HCC) [E43] 07/11/2023 Ovarian cancer on left (HCC) [C56.2] 07/27/2023 Platelets decreased (HCC) [D69.6] 09/16/2023 Preop examination [Z01.818] 10/19/2023 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.*10/19/2023 Rheumatoid arthritis without rheumatoid factor,*02/01/2023 Diagnosed: 10/19/2023 Ovarian cancer, bilateral (HCC) [C56.3] 10/28/2023 Post-operative state [Z98.890] 10/29/2023 FRANK (acute kidney injury) (HCC) [N17.9] 10/29/2023 Attention to colostomy (HCC) [Z43.3] 04/20/2024 GERD (gastroesophageal reflux disease) [K21.9] 08/27/2024 Encounter Status:Closed by ESTUARDO LONG on 10/23/24 [facility] OCT OPTIC NERVE CIRRUS OU (B OTH EYES)on 10-17-2024 [facility] Radiology Study observation (narrative) [facility] CBC W Auto Differential pane l (Bld)on 09-28-2024 Basophils (Bld) [#/Vol] [facility] Basophils/100 WBC (Bld) 0.2 % [facility] Differential cell count method Nom (Bld) Auto [facility] Eosinophils (Bld) [#/Vol] 0.12 10*3/uL [facility] Eosinophils/100 WBC (Bld) 2.8 % [facility] Erythrocyte distribution width (RBC) [Ratio] 14.6 % 11.5 - 15.0 % [facility] Hematocrit (Bld) [Volume fraction] 27.9 % Low 36.0 - 46.0 % [facility] Hemoglobin (Bld) [Mass/Vol] 9.4 g/dL Low 11.5 - 15.5 g/dL [facility] Immature granulocytes (Bld) [#/Vol] [facility] Immature granulocytes/100 WBC (Bld) 0.2 % [facility] Interpretation and review of laboratory results Abnormal [facility] Lymphocytes (Bld) [#/Vol] 0.68 10*3/uL Low [facility] Lymphocytes/100 WBC (Bld) 15.7 % [facility] MCH (RBC) [Entitic mass] 37.6 pg High 26.0 - 34.0 pg [facility] MCHC (RBC) [Mass/Vol] 33.7 g/dL 30.5 - 36.0 g/dL [facility] MCV (RBC) [Entitic vol] 111.6 fL High 80.0 - 100.0 fL [facility] Monocytes (Bld) [#/Vol] 0.48 10*3/uL [facility] Monocytes/100 WBC (Bld) 11.1 % [facility] Neutrophils (Bld) [#/Vol] 3.04 10*3/uL [facility] Neutrophils/100 WBC (Bld) 70 % [facility] Nucleated RBC (Bld) [#/Vol] [facility] Nucleated RBC/100 WBC (Bld) [Ratio] 0 % /100 WBC [facility] Platelet mean volume (Bld) [Entitic vol] 10.4 fL 9.0 - 12.7 fL [facility] Platelets (Bld) [#/Vol] 178 10*3/uL [facility] RBC (Bld) [#/Vol] 2.5 10*6/uL Low 3.90 - 5.2 0 m/uL [facility] WBC (Bld) [#/Vol] 4.34 10*3/uL [facility] Basophils (Bld) [#/Vol] 10*3/uL Normal <0.11 [facility] Comment on above: Order Comment: Speci men Type: BLOOD SPECIMENOrdering Facility: [facility] Address: [address] [place] [address] Performed By: #### 5 7021-8 ####[facility] MILLWNCLIA [id number] [place] [address] [place] Basophils/100 WBC (Bld) 0.2 % Normal [facility] Comment on above: Order Comment: Speci men Type: BLOOD SPECIMENOrdering Facility: [facility] Address: [address] [place] [address] Performed By: #### 5 7021-8 ####[facility]PITALL[facility] [id number] [place] [address] [place] Differential cell count method Nom (Bld) Auto Normal [facility] Comment on above: Order Comment: Speci men Type: BLOOD SPECIMENOrdering Facility: [facility] Address: [address] [place] [address] Performed By: #### 5 7021-8 ####[facility] HOSPITALL[facility] [id number] [place] [address] [place] Eosinophils (Bld) [#/Vol] 0.12 10*3/uL Normal <0.46 [facility] Comment on above: Order Comment: Speci men Type: BLOOD SPECIMENOrdering Facility: [facility] Address: [address] [place] [address] Performed By: #### 5 7021-8 ####[facility] MILLSTARKVILLENCLIA [id number] [place] [address] [place] Eosinophils/100 WBC (Bld) 2.8 % Normal [facility] Comment on above: Order Comment: Speci men Type: BLOOD SPECIMENOrdering Facility: [facility] Address: [address] [place] [address] Performed By: #### 5 7021-8 ####[facility] DWAINENCJASE [id number] [place] [address] [place] Erythrocyte distribution width (RBC) [Ratio] 14.6 % Normal 11.5-15.0 [facility] Comment on above: Order Comment: Speci men Type: BLOOD SPECIMENOrdering Facility: [facility] Address: [address] [place] [address] Performed By: #### 5 7021-8 ####[facility] JARONSTARKVILLEBANGLIA [id number] [place] [address] [place] Hematocrit (Bld) [Volume fraction] 27.9 % Low 36.0-46.0 [facility] Comment on above: Order Comment: Speci men Type: BLOOD SPECIMENOrdering Facility: [facility] Address: [address] [place] [address] Performed By: #### 5 7021-8 ####[facility] JARONSTARKVILLENCLIA [id number] [place] [address] [place] Hemoglobin (Bld) [Mass/Vol] 9.4 g/dL Low 11.5-15.5 [facility] Comment on above: Order Comment: Speci men Type: BLOOD SPECIMENOrdering Facility: [facility] Address: [address] [place] [address] Performed By: #### 5 7021-8 ####[facility]ENTERNCLIA [id number] [place] [address] [place] Immature granulocytes (Bld) [#/Vol] 10*3/uL Normal <0.10 [facility] Comment on above: Order Comment: Speci men Type: BLOOD SPECIMENOrdering Facility: [facility] Address: [address] [place] [address] Performed By: #### 5 7021-8 ####[facility] CENTERNCLIA [id number] [place] [address] [place] Immature granulocytes/100 WBC (Bld) 0.2 % Normal [facility] Comment on above: Order Comment: Speci men Type: BLOOD SPECIMENOrdering Facility: [facility] Address: [address] [place] [address] Performed By: #### 5 7021-8 ####[facility]ITALLIA [id number] [place] [address] [place] Lymphocytes (Bld) [#/Vol] 0.68 10*3/uL Low 1.00-4.00 [facility] Comment on above: Order Comment: Speci men Type: BLOOD SPECIMENOrdering Facility: [facility] Address: [address] [place] [address] Performed By: #### 5 7021-8 ####[facility] HOSPITALLI [id number] [place] [address] [place] Lymphocytes/100 WBC (Bld) 15.7 % Normal [facility] Comment on above: Order Comment: Speci men Type: BLOOD SPECIMENOrdering Facility: [facility] Address: [address] [place] [address] Performed By: #### 5 7021-8 ####[facility] HOSPITALNICOLETTEA [id number] [place] [address] [place] MCH (RBC) [Entitic mass] 37.6 pg High 26.0-34.0 [facility] Comment on above: Order Comment: Speci men Type: BLOOD SPECIMENOrdering Facility: [facility] Address: [address] [place] [address] Performed By: #### 5 7021-8 ####[facility] CENTERNCLIA [id number] [place] [address] [place] MCHC (RBC) [Mass/Vol] 33.7 g/dL Normal 30.5-36.0 [facility] Comment on above: Order Comment: Speci men Type: BLOOD SPECIMENOrdering Facility: [facility] Address: [address] [place] [address] Performed By: #### 5 7021-8 ####[facility]ERNCMOUNT[facility] [id number] [place] [address] [place] MCV (RBC) [Entitic vol] 111.6 fL High 80.0-100.0 [facility] Comment on above: Order Comment: Speci men Type: BLOOD SPECIMENOrdering Facility: [facility] Address: [address] [place] [address] Performed By: #### 5 7021-8 ####[facility]ERNCMOUNT[facility] [id number] [place] [address] [place] Monocytes (Bld) [#/Vol] 0.48 10*3/uL Normal <0.87 [facility] Comment on above: Order Comment: Speci men Type: BLOOD SPECIMENOrdering Facility: [facility] Address: [address] [place] [address] Performed By: #### 5 7021-8 ####[facility] MED[facility] CENTERA [id number] [place] [address] [place] Monocytes/100 WBC (Bld) 11.1 % Normal [facility] Comment on above: Order Comment: Speci men Type: BLOOD SPECIMENOrdering Facility: [facility] Address: [address] [place] [address] Performed By: #### 5 7021-8 ####[facility] CENTERNCLIA [id number] [place] [address] [place] Neutrophils (Bld) [#/Vol] 3.04 10*3/uL Normal 1.45-7.50 [facility] Comment on above: Order Comment: Speci men Type: BLOOD SPECIMENOrdering Facility: [facility] Address: [address] [place] [address] Performed By: #### 5 7021-8 ####[facility] JARONSTARKVILLEYANIRA [id number] [place] [address] [place] Neutrophils/100 WBC (Bld) 70.0 % Normal [facility] Comment on above: Order Comment: Speci men Type: BLOOD SPECIMENOrdering Facility: [facility] Address: [address] [place] [address] Performed By: #### 5 7021-8 ####[facility] [id number] [place] [address] [place] Nucleated RBC (Bld) [#/Vol] 10*3/uL Normal <0.01 [facility] Comment on above: Order Comment: Speci men Type: BLOOD SPECIMENOrdering Facility: [facility] Address: [address] [place] [address] Performed By: #### 5 7021-8 ####[facility] [id number] [place] [address] [place] Nucleated RBC/100 WBC (Bld) [Ratio] 0.0 /100 WBC Normal [facility] Comment on above: Order Comment: Speci men Type: BLOOD SPECIMENOrdering Facility: [facility] Address: [address] [place] [address] Performed By: #### 5 7021-8 ####[facility] [id number] [place] [address] [place] Platelet mean volume (Bld) [Entitic vol] 10.4 fL Normal 9.0-12.7 [facility] Comment on above: Order Comment: Speci men Type: BLOOD SPECIMENOrdering Facility: [facility] Address: [address] [place] [address] Performed By: #### 5 7021-8 ####[facility] CENTERNCLIA [id number] [place] [address] [place] Platelets (Bld) [#/Vol] 178 10*3/uL Normal 150-400 [facility] Comment on above: Order Comment: Speci men Type: BLOOD SPECIMENOrdering Facility: [facility] Address: [address] [place] [address] Performed By: #### 5 7021-8 ####[facility]ENTERNCLIA [id number] [place] [address] [place] RBC (Bld) [#/Vol] 2.50 10*6/uL Low 3.90-5.20 [facility] Comment on above: Order Comment: Speci men Type: BLOOD SPECIMENOrdering Facility: [facility] Address: [address] [place] [address] Performed By: #### 5 7021-8 ####[facility]ENTERNCLIA [id number] [place] [address] [place] WBC (Bld) [#/Vol] 4.34 10*3/uL Normal 3.70-11.00 [facility] Comment on above: Order Comment: Speci men Type: BLOOD SPECIMENOrdering Facility: [facility] Address: [address] [place] [address] Performed By: #### 5 7021-8 ####[facility] CENTERNCLIA [id number] [place] [address] [place] Cancer Ag125 SerPl-aCncon Cancer Ag 125 Qn 34 [arb'U]/mL Normal <39 [facility] Comment on above: Order Comment: Speci men Type: BLOOD SPECIMENOrdering Facility: [facility] Address: [address] [place] [address] Result Comment: CA 1 25 test methodology used is the Electrochemiluminescence Immunoassay by [employer]. Results obtained with different methods or kits cannot be used interchangeably.The reference interval is based on the 95th percentile of 240 apparently healthy premenopausal and postmenopausal women. At a cutoff value of 65 U/mL, the test sensitivity to distinguish ovarian carcinoma (FIGO stage I to IV) versus benign gynecological disease is 79%, with a specificity of 82%.Reference: Cancer Antigen 125 (CA 125 II) [package insert V 1.0 [place]ien]. [employer], [place], [place] (April 2015) Performed By: #### 1 0334-1 ####[facility] LABORATORYCLIA [id number] [address] ALLIED HEALTHon 09-06-2024 ALLIED HEALTH HNO ID: [id number] Author: ESTUARDO LONG RN Service: General Surgery Author Type: Registered Nurse Type: Allied Health Filed: 09/06/2024 10:18 Note Text: GENERAL SURGERY/ERAS [employer] SPECIALIST NOTE SERVICE DATE: 09/06/2024 SERVICE TIME: 10:17 AM ERAS discharge instructions given to patient with good understanding. Written instructions given to patient. Encouraged to call MD with questions/concerns. DISCHARGE PLAN: Home - Alone DISCHARGE NEEDS: No Services Indicated EDUCATION: Postoperative diet, Activity restrictions, Incision care, Pain medication regimen, and Signs/symptoms to report to physician OUTPATIENT APPOINTMENTS: Scheduled with Dr. 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 Anticipated Disposition: inpatient floor planned admission. Neurological Status: aware and responsive. Pulmonary Status: breathing comfortably on room air Airway Control: returned to baseline unsupported. Cardiovascular Status: stable. Pain Management: clinically adequate Postoperative Hydration: acceptable. Post Operative Nausea/Vomiting Status: no significant post operative nausea or vomiting Recommendation: further care per PACU/ICU/floor team. Anesthesia Observations No Documentation SIGNATURE: Kevin Nj DO PATIENT NAME: Gasper Reed DATE: September 06, 2024 TIME: 3:54 PM CSN: [id number] Normal [facility] Basic metabolic 2000 panelon 09-06-2024 Anion gap [Moles/Vol] 10 mmol/L Normal 8-15 [facility] Comment on above: Order Comment: Specmayra hernández Type: BLOOD SPECIMEN [facility] Address: [address] [place] [address] Performed By: #### 2 4321-2 #### [facility] CLIA [id number] [address] [place] [address] [place] Calcium [Mass/Vol] 9.0 mg/dL Normal 8.5-10.2 [facility] Comment on above: Order Comment: Speci betty Type: BLOOD SPECIMEN [facility]ing Facility: [facility] Address: [address] [place] [address] Performed By: #### 2 4321-2 #### [facility] CLIA [id number] 1 [place] [address] [place] Chloride [Moles/Vol] 97 mmol/L Low 98-107 [facility] Comment on above: Order Comment: Speci men Type: BLOOD SPECIMEN [facility]ing Facility: [facility] Address: [address] [place] [address] Performed By: #### 2 4321-2 #### [facility] CLIA [id number] [address] [place] CO2 [Moles/Vol] 26 mmol/L Normal 22-30 [facility] Comment on above: Order Comment: Speci men Type: BLOOD SPECIMEN [facility] Address: [address] [place] [address] Performed By: #### 2 4321-2 #### [facility] CLIA [id number] [address] [place] Creatinine [Mass/Vol] 1.30 mg/dL High 0.58-0.96 [facility] Comment on above: Order Comment: Speci men Type: BLOOD SPECIMEN [facility] Address: [address] [place] [address] Performed By: #### 2 4321-2 #### [facility] CLIA [id number] [address] Creatinine and Glomerular filtration rate.predicted panel (S/P/Bld) 44 mL/min/1.73m??? Low >=60 [facility] Comment on above: Order Comment: Speci men Type: BLOOD SPECIMEN [facility] Address: [address] [place] [address] Result Comment: Fernanda mated Glomerular Filtration Rate (eGFR) is calculated using the 2020 CKD-EPI creatinine equation. This equation utilizes serum creatinine, sex, and age as parameters. The creatinine assay has traceable calibration to isotope dilution-mass spectrometry. Refer to KDIGO guidelines for clinical interpretation. In patients with unstable renal function, e.g. those with acute kidney injury, the eGFR may not accurately reflect actual GFR. Performed By: #### 2 4321-2 #### [facility] CLIA [id number] [address] STATES OF [facility] Glucose [Mass/Vol] 95 mg/dL Normal 74-99 [facility] Comment on above: Order Comment: Speci men Type: BLOOD SPECIMEN [facility] Address: [address] [place] [address] Result Comment: The [place] Diabetes Association (ADA) provides guidance for cutoff values for fasting glucose and random glucose. The ADA defines fasting as no caloric intake for at least 8 hours. Fasting plasma glucose results between 100 to 125 mg/dL indicate increased risk for diabetes (prediabetes). Fasting plasma glucose results greater than or equal to 126 mg/dL meet the criteria for diagnosis of diabetes. In the absence of unequivocal hyperglycemia, results should be confirmed by repeat testing. In a patient with classic symptoms of hyperglycemia or hyperglycemic crisis, random plasma glucose results greater than or equal to 200 mg/dL meet the criteria for diagnosis of diabetes. Reference: Standards of Medical Care in Diabetes 2016, [place] Diabetes Association. Diabetes Care. 2016.39(Suppl 1). Performed By: #### 2 4321-2 #### [facility] CLIA [id number] [address] [place] [address] [place] Potassium [Moles/Vol] 3.8 mmol/L Normal 3.7-5.1 [facility] Comment on above: Order Comment: Speci men Type: BLOOD SPECIMEN [facility] Address: [address] [place] [address] Performed By: #### 2 1-2 #### [facility] CLIA [id number] [address] [place] [address] [place] Sodium [Moles/Vol] 133 mmol/L Low 136-144 [facility] Comment on above: Order Comment: Speci men Type: BLOOD SPECIMEN [facility] Address: [address] [place] [address] Performed By: #### 2 1-2 #### [facility] CLIA [id number] [address] [place] [address] [place] Urea nitrogen [Mass/Vol] 17 mg/dL Normal 7-21 [facility] Comment on above: Order Comment: Speci men Type: BLOOD SPECIMEN [facility] Address: [address] [place] [address] Performed By: #### 2 4321-2 #### [facility] CLIA [id number] [address] CBC panel Auto (Bld)on 09-06 Erythrocyte distribution width (RBC) [Ratio] 15.0 % Normal 11.5-15.0 [facility] Comment on above: Order Comment: Speci men Type: BLOOD SPECIMEN [facility] Address: [address] [place] [address] Performed By: #### 5 8410-2 #### [facility] CLIA [id number] [address] Hematocrit (Bld) [Volume fraction] 27.3 % Low 36.0-46.0 [facility] Comment on above: Order Comment: Speci men Type: BLOOD SPECIMEN [facility]: [facility] Address: [address] [place] [address] Performed By: #### 5 8410-2 #### [facility] CLIA [id number] [address] Hemoglobin (Bld) [Mass/Vol] 9.3 g/dL Low 11.5-15.5 [facility] Comment on above: Order Comment: Speci men Type: BLOOD SPECIMEN [facility] Facility: [facility] Address: [address] [place] [address] Performed By: #### 5 8410-2 #### [facility] CLIA [id number] [address] MCH (RBC) [Entitic mass] 38.1 pg High 26.0-34.0 [facility] Comment on above: Order Comment: Speci men Type: BLOOD SPECIMEN [facility] Address: [address] [place] [address] Performed By: #### 5 8410-2 #### [facility] CLIA [id number] [address] STATES [facility] MCHC (RBC) [Mass/Vol] 34.1 g/dL Normal 30.5-36.0 [facility] Comment on above: Order Comment: Speci men Type: BLOOD SPECIMEN [facility]: [facility] Address: [address] [place] [address] Performed By: #### 5 8410-2 #### [facility] CLIA [id number] [address] MCV (RBC) [Entitic vol] 111.9 fL High 80.0-100.0 [facility] Comment on above: Order Comment: Speci men Type: BLOOD SPECIMEN [facility]: [facility] Address: [address] [place] [address] Performed By: #### 5 8410-2 #### [facility] CLIA [id number] [address] Nucleated RBC (Bld) [#/Vol] 10*3/uL Normal <0.01 [facility] Comment on above: Order Comment: Speci men Type: BLOOD SPECIMEN [facility] Facility[facility] Address: [address] [place] [address] Performed By: #### 5 8410-2 #### [facility] CLIA [id number] [address] Platelet mean volume (Bld) [Entitic vol] 10.5 fL Normal 9.0-12.7 [facility] Comment on above: Order Comment: Speci men Type: BLOOD SPECIMEN [facility] Address: [address] [place] [address] Performed By: #### 5 8410-2 #### [facility] CLIA [id number] [address] [place] Platelets (Bld) [#/Vol] 164 10*3/uL Normal 150-400 [facility] Comment on above: Order Comment: Speci men Type: BLOOD SPECIMEN [facility] Address: [address] [place] [address] Performed By: #### 5 8410-2 #### [facility] CLIA [id number] [address] [place] RBC (Bld) [#/Vol] 2.44 10*6/uL Low 3.90-5.20 [facility] Comment on above: Order Comment: Riaz hernández Type: BLOOD SPECIMEN [facility] Address: [address] [place] [address] Performed By: #### 5 8410-2 #### [facility] CLIA [id number] [address] OF [facility] WBC (Bld) [#/Vol] 5.87 10*3/uL Normal 3.70-11.00 [facility] Comment on above: Order Comment: Riaz betty Type: BLOOD SPECIMEN [facility]ing [facility]: [facility] Address: [address] [place] [address] Performed By: #### 5 8410-2 #### [facility] CLIA [id number] [address] CNDSon 09-06-2024 CNDS HNO ID: [id number] Author: TONYA BROWN MD Service: General Surgery Author Type: Resident Type: Discharge Summary Filed: 09/11/2024 16:55 Note Text: -- Attestation signed by Tonya Brown MD at 09/11/2024 4:55 PM Attending Note I evaluated the patient and personally participated in the jhaveri components. I agree with the resident's findings and plan as documented and have discussed the case and management of the patient's care with the resident. Signature: Tonya Brown MD Date: 09/11/2024 Time: 4:55 PM -- DISCHARGE SUMMARY PATIENT NAME: Gasper Reed Code Status: Not on file Highest Readmission Risk Score: 14 The 30 day readmissions risk score is derived from an internally validated risk model which evaluates patient level characteristics, utilization history, medication orders and lab results up until the day of discharge. Patients with a score of 40 or above are considered highest risk for readmission. Specific patient level drivers will be listed at the bottom of the summary. Admission Information Admission Information ADMIT DATE: 09/04/2024 DISCHARGE DATE: 09/06/2024 MY DOCTORS AND MEDICAL TEAM: My Main Hospital Doctor: Rohit Miles MD Primary Care Provider: mEily Casanova DO My Medical Team Members: Treatment Team: Attending Provider: Rohit Miles MD MY CONDITION AT DISCHARGE: stable REASON I WAS IN THE HOSPITAL: loop colostomy reversal SUMMARY OF WHAT HAPPENED WHILE I WAS IN THE HOSPITAL: Patient was admitted following scheduled closure transverse loop colostomy. She tolerated the procedure well and was transferred to regular nursing floor in stable condition on ERAS protocol. She had return of bowel function and her diet was slowly advanced. On 09/06, she was tolerating a diet, pain was well controlled and she was stable for discharge home with plans to follow up in the office. OTHER PROBLEMS/DIAGNOSIS: Principal Problem: Attention to colostomy (HCC) Resolved Problems: * No resolved hospital problems. * OPERATIONS PERFORMED WHILE IN THE HOSPITAL: see above IMPORTANT TEST/PROCEDURES: see above TEST RESULTS NOT AVAILABLE AT THIS TIME: The plan for following up on pending results below is surgical pathology Discharge Disposition Activity When You Leave the Hospital Lifting is restricted to: Do not lift over 10-15 pounds for 2-3 weeks No walking restrictions Diet Instructions Drink 6 to 8 glasses of fluids per day Resume your pre-hospital diet For Pain When You Leave the Hospital If you become constipated, you may use any zhez-lok-mtepwtw treatment such as Milk of Magnesia, Sennakot, Prune Juice, Suppositories, etc. in addition to the stool softener/fiber supplement No alcohol or driving while on pain medication Use acetaminophen (Tylenol) as recommended on the bottle Use the dispensed medication (see prescription) Wound/Surgical Site Care Leave open to air Some bleeding from the wound/surgical site can be expected. If you soak a gauze bandage in one hour, see a doctor at once Wash your hands frequently, especially before touching your incision, after using restroom and before eating Call Your Doctor If There is an unusual odor from the wound area There is severe pain at the operative site You have a severe headache You have difficulty urinating or pain when urinating You have lightheadedness, fainting, or confusion You have pain and swelling in your legs, especially if it is only on one side and not the other You have pain with urination, cloudy urine or foul smelling urine You have persistent nausea/vomiting over 24 hours You have persistent or heavy bleeding You have redness, swelling, pus or drainage from the wound You have swollen glands or cold and clammy skin Your temperature is greater than 101F Additional Provider to Provider Information: No notes on file Treatment Team: Attending Provider: Rohit Miles MD FOLLOW-UP APPOINTMENTS ALREADY SCHEDULED WITH A [facility] PROVIDER: Future Appointments Date Time Provider Department Center 09/17/2024 7:30 AM Pharmacist, Specialty[facility] 1 [facility] None 09/17/2024 3:30 PM Rohit Miles MD [facility] 09/28/2024 9:00 AM Wstr, [place] [facility] [place] 11/02/2024 9:15 AM Wstr, Lab/[place] [facility] [place] 11/02/2024 9:40 AM Hiram Mccoy DO [facility] [place] 11/22/2024 10:00 AM Guerrero Vilchis MD AGGYNONPOB [facility] ALLERGIES Allergen Reactions Erythromycin Diarrhea, GI Upset Abdominal cramping Penicillins Unknown DISCHARGE MEDICATION: Medication List START taking these medications traMADol 50 mg tablet Commonly known as: ULTRAM Take 1 tablet by mouth every 8 hours as needed for pain for up t (more content not included)... Normal [facility] Basic metabolic 2000 panelon 09-05-2024 Anion gap [Moles/Vol] 10 mmol/L Normal 8-15 [facility] Comment on above: Order Comment: Speci men Type: BLOOD SPECIMEN [facility] Facility[facility] Address: [address] [place] [address] Performed By: #### 2 4321-2 #### [facility] CLIA [id number] [address] [place] Calcium [Mass/Vol] 8.7 mg/dL Normal 8.5-10.2 [facility] Comment on above: Order Comment: Speci men Type: BLOOD SPECIMEN Ordering Facility: [facility] Address: [address] [place] [address] Performed By: #### 2 4321-2 #### [facility] CLIA [id number] [address] [place] Chloride [Moles/Vol] 99 mmol/L Normal 98-107 [facility] Comment on above: Order Comment: Speci men Type: BLOOD SPECIMEN Ordering Facility: [facility] Address: [address] [place] [address] Performed By: #### 2 4321-2 #### [facility] CLIA [id number] [address] [place] CO2 [Moles/Vol] 24 mmol/L Normal 22-30 [facility] Comment on above: Order Comment: Speci men Type: BLOOD SPECIMEN Ordering Facility: [facility] Address: [address] [place] [address] Performed By: #### 2 4321-2 #### [facility] CLIA [id number] [address] [place] Creatinine [Mass/Vol] 1.36 mg/dL High 0.58-0.96 [facility] Comment on above: Order Comment: Speci men Type: BLOOD SPECIMEN Ordering Facility: [facility] Address: [address] [place] [address] Performed By: #### 2 4321-2 #### [facility] CLIA [id number] [address] Creatinine and Glomerular filtration rate.predicted panel (S/P/Bld) 41 mL/min/1.73m??? Low >=60 [facility] Comment on above: Order Comment: Speci men Type: BLOOD SPECIMEN Ordering Facility: [facility] Address: [address] [place] [address] Result Comment: Fernanda mated Glomerular Filtration Rate (eGFR) is calculated using the 2020 CKD-EPI creatinine equation. This equation utilizes serum creatinine, sex, and age as parameters. The creatinine assay has traceable calibration to isotope dilution-mass spectrometry. Refer to KDIGO guidelines for clinical interpretation. In patients with unstable renal function, e.g. those with acute kidney injury, the eGFR may not accurately reflect actual GFR. Performed By: #### 2 4321-2 #### [facility] CLIA [id number] 1 [place] [address] [place] Glucose [Mass/Vol] 126 mg/dL High 74-99 [facility] Comment on above: Order Comment: Riaz hernández Type: BLOOD SPECIMEN Ordering Facility: [facility] Address: [address] [place] [address] Result Comment: The [place] Diabetes Association (ADA) provides guidance for cutoff values for fasting glucose and random glucose. The ADA defines fasting as no caloric intake for at least 8 hours. Fasting plasma glucose results between 100 to 125 mg/dL indicate increased risk for diabetes (prediabetes). Fasting plasma glucose results greater than or equal to 126 mg/dL meet the criteria for diagnosis of diabetes. In the absence of unequivocal hyperglycemia, results should be confirmed by repeat testing. In a patient with classic symptoms of hyperglycemia or hyperglycemic crisis, random plasma glucose results greater than or equal to 200 mg/dL meet the criteria for diagnosis of diabetes. Reference: Standards of Medical Care in Diabetes 2016, [place] [employer] Association. Diabetes Care. 2016.39(Suppl 1). Performed By: #### 2 4321-2 #### [facility] CLIA [id number] 1 [place] [address] [place] Potassium [Moles/Vol] 3.8 mmol/L Normal 3.7-5.1 [facility] Comment on above: Order Comment: Riaz hernández Type: BLOOD SPECIMEN Ordering Facility: [facility] Address: [address] [id number] Performed By: #### 2 4321-2 #### [facility] CLIA [id number] [address] Sodium [Moles/Vol] 133 mmol/L Low 136-144 [facility] Comment on above: Order Comment: Speci men Type: BLOOD SPECIMEN Ordering Facility: [facility] Address: [facility] [place] [address] Performed By: #### 2 4321-2 #### [facility] CLIA [id number] [address] [place] Urea nitrogen [Mass/Vol] 22 mg/dL High 7-21 [facility] Comment on above: Order Comment: Speci men Type: BLOOD SPECIMEN Ordering Facility: [facility] Address: [address] [place] [address] Performed By: #### 2 4321-2 #### [facility] CLIA [id number] [address] CBC panel Auto (Bld)on 09-05 Erythrocyte distribution width (RBC) [Ratio] 14.6 % Normal 11.5-15.0 [facility] Comment on above: Order Comment: Speci men Type: BLOOD SPECIMEN Ordering Facility: [facility] Address: [address] [place] [address] Performed By: #### 5 8410-2 #### [facility] CLIA [id number] [address] Hematocrit (Bld) [Volume fraction] 25.7 % Low 36.0-46.0 [facility] Comment on above: Order Comment: Speci men Type: BLOOD SPECIMEN Ordering Facility: [facility] Address: [address] [place] [address] Performed By: #### 5 8410-2 #### [facility] CLIA [id number] [address] [place] Hemoglobin (Bld) [Mass/Vol] 8.9 g/dL Low 11.5-15.5 [facility] Comment on above: Order Comment: Speci men Type: BLOOD SPECIMEN Ordering Facility: [facility] Address: [address] [place] [address] Performed By: #### 5 8410-2 #### [facility] CLIA [id number] [address] MCH (RBC) [Entitic mass] 38.7 pg High 26.0-34.0 [facility] Comment on above: Order Comment: Speci men Type: BLOOD SPECIMEN Ordering Facility: [facility] Address: [address] [place] [address] Performed By: #### 5 8410-2 #### [facility] CLIA [id number] [address] MCHC (RBC) [Mass/Vol] 34.6 g/dL Normal 30.5-36.0 [facility] Comment on above: Order Comment: Speci men Type: BLOOD SPECIMEN Ordering Facility: [facility] Address: [address] [place] [address] Performed By: #### 5 8410-2 #### [facility] CLIA [id number] [address] MCV (RBC) [Entitic vol] 111.7 fL High 80.0-100.0 [facility] Comment on above: Order Comment: Speci men Type: BLOOD SPECIMEN Ordering Facility: [facility] Address: [address] [place] [address] Performed By: #### 5 8410-2 #### [facility] CLIA [id number] [address] Nucleated RBC (Bld) [#/Vol] 0.03 10*3/uL High <0.01 [facility] Comment on above: Order Comment: Speci men Type: BLOOD SPECIMEN Ordering Facility: [facility] Address: [address] [place] [address] Performed By: #### 5 8410-2 #### [facility] CLIA [id number] [address] OF [facility] Platelet mean volume (Bld) [Entitic vol] 10.6 fL Normal 9.0-12.7 [facility] Comment on above: Order Comment: Speci men Type: BLOOD SPECIMEN Ordering Facility: [facility] Address: [address] [place] [address] Performed By: #### 5 8410-2 #### [facility] CLIA [id number] [address] OF [facility] Platelets (Bld) [#/Vol] 149 10*3/uL Low 150-400 [facility] Comment on above: Order Comment: Speci men Type: BLOOD SPECIMEN Ordering Facility: [facility] Address: [address] [place] [address] Performed By: #### 5 8410-2 #### [facility] CLIA [id number] [address] [place] RBC (Bld) [#/Vol] 2.30 10*6/uL Low 3.90-5.20 [facility] Comment on above: Order Comment: Speci men Type: BLOOD SPECIMEN Ordering Facility: [facility] Address: [address] [place] [address] Performed By: #### 5 8410-2 #### [facility] CLIA [id number] [address] OF [facility] WBC (Bld) [#/Vol] 7.81 10*3/uL Normal 3.70-11.00 [facility] Comment on above: Order Comment: Speci men Type: BLOOD SPECIMEN Ordering Facility: [facility] Address: [address] [place] [address] Performed By: #### 5 8410-2 #### [facility] CLIA [id number] [address] [place] ANES PRE-OPon 09-04-2024 ANES PRE-OP HNO ID: [id number] Author: KEVIN NJ DO Service: Anesthesiology Author Type: Anesthesiologist Type: Anesthesia Preprocedure Evaluation Filed: 09/04/2024 06:59 Note Text: ANESTHESIOLOGY DAY OF SURGERY NOTE : 1950 Procedure Information Date/Time: 02/11/25 0730 Procedure: COLOSTOMY LOOP Location: [facility] 12 / [facility] Surgeons: Rohit Miles MD Estimated body mass index is 20.85 kg/m? as calculated from the following: Height as of 08/27/24: 157.5 cm (5' 2). Weight as of 08/27/24: 51.7 kg (114 lb). Most recent hematocrit and potassium results: Hematocrit 27.0 08/31/2024 Potassium 3.9 08/27/2024 Relevant Problems CARDIO (+) Chronic hypertension GI (+) GERD (gastroesophageal reflux disease) -RENAL (+) FRANK (acute kidney injury) (HCC) Other (+) Rheumatoid arthritis without rheumatoid factor, unspecified site (HCC) I - PHYSICAL EVALUATION AIRWAY Patient intubated: No. Tracheostomy tube not present Mallampati: II. TM distance: >3 FB. Neck ROM: full ROM without neurological symptoms. Mouth opening: adequate. Short neck: no. Thick neck: no DENTAL Dental findings: teeth intact. II - ANESTHESIA PLAN ASA Score: 3 Anesthetic Plan: general Airway type: ETT The patient is not a current smoker. NPO Status: adequate [place] Monitoring Plan Monitoring plan: standard ASA. Post Procedure Analgesic Plan Postoperative analgesic plan: parenteral or oral opioids, multimodal analgesia and peripheral nerve block. Informed Consent Anesthetic risks, benefits, alternatives, personnel and consent discussed: yes. Patient / Responsible Alliance Party agrees to proceed: yes Patient / Surrogate agrees to blood products: Yes DNR status not reviewed with patient and/or family prior to surgery. Significant changes in the patient condition since the History and Physical, not otherwise documented in primary service progress note: no. Potential Anesthesia issues that may suggest increased risk of complications or contraindication to planned procedure: none. Discussed the possibility of lip / dental damage: yes Vitals Value Taken Time BP 138/67 09/04/24 0644 Pulse 80 09/04/24 06 Resp 18 09/04/24643 Temp 36.2 ?C (97.2 ?F) 09/04/24643 SpO2 99 % 09/04/24643 Facility-Administered Medications as of 09/04/2024 Medication Dose Route Frequency enoxaparin 40 mg injection (LOVENOX) 40 mg SUBCUTANEOUS Pre-Op Once lidocaine (PF) 10 mg/mL (1 %) 1-2 mg injection (XYLOCAINE) 0.1-0.2 mL INTRADERMAL PRN NaCl 0.9% iv flush bag 20 mL INTRAVENOUS PRN ciprofloxacin iv piggyback 400 mg in D5W 200 mL (CIPRO) 400 mg INTRAVENOUS Pre-Op Once metroNIDAZOLE iv piggyback 500 mg in NaCl (iso-osmotic) 100 mL (FLAGYL) 500 mg INTRAVENOUS Pre-Op Once Outpatient Medications as of 09/04/2024 Medication Sig lisinopril-hydroCHLOROthia zide (ZESTORETIC) 20-12.5 mg per tablet Take 1 tablet by mouth two times a day. promethazine (PHENERGAN) 25 mg tablet Take 1 tab by mouth every 4 hours as needed for nausea. pantoprazole DR (PROTONIX) 40 mg tablet take 1 tablet by mouth every day ondansetron (ZOFRAN) 8 mg tablet Take 1 tablet by mouth every 8 hours as needed for nausea/vomiting. acetaminophen (TYLENOL) 500 mg tablet Take 2 tablets by mouth every 6 hours. vitamin b complex capsule Take 1 capsule by mouth once daily. oxybutynin ER (DITROPAN XL) 10 mg 24 hr tablet Take 15 mg by mouth once daily. [] lidocaine-prilocaine (EMLA) 2.5-2.5 % cream Apply 60 minutes prior to accessing port calcium carbonate (CALCIUM 600 ORAL) Take 1 tablet by mouth once daily. I have interviewed and examined the patient. I have reviewed the medical record and/or the pre-anesthesia evaluation, pertinent labs, and test results. This contains updated information obtained within 48 hours of Surgery/Procedure. SIGNATURE: Kevin Nj DO PATIENT NAME: Gasper Reed DATE: September 04, 2024 TIME: 6:59 AM CSN: [id number] [facility] OPERATIVE NOon 09-04-2024 OPERATIVE NO HNO ID: [id number] Author: ROHIT MILES MD Service: Colorectal Author Type: Physician Type: Operative Report Filed: 09/04/2024 09:22 Note Text: OPERATIVE REPORT Log ID: [id number] Surgery Date: 09/04/2024 Incision/Procedure Start Time: 7:53 AM Incision Close/Procedure End Time: 9:14 AM Surgeon(s) and Shoes Hand Sewer(s): Surgeons and Role: * Rohit Miles MD - Primary * Landon Bustamante DO - Resident - Assisting Preoperative Diagnosis: Attention to colostomy ([facility]) [Z43.3] Postoperative Diagnosis: Same PROCEDURE AND ANESTHESIA TYPE: Procedure(s) and Anesthesia Type: * Closure transverse loop colostomy - General OPERATIVE INDICATIONS: The patient presented to the hospital to undergo the above procedure. Colon study done preoperatively showed no evidence of leak or stricture. A thorough discussion of the risks and benefits of surgery was undertaken prior to informed consent. They understood the benefits and risks, and desired to proceed. OPERATIVE FINDINGS: We performed a loop colostomy closure with a handsewn closure. OPERATIVE PROCEDURE: Patient was brought into the operating room, where a huddle time-out procedure, preoperative antibiotics, necessary medical equipment, staff, and positioning were all completed. Patient was placed in supine position. Timeout was completed. The abdomen was prepped and draped in the usual fashion. An incision was started at the medial aspect of the colostomy using a scalpel and this was carried down into the subcutaneous tissue with a small rim of skin kept on the small bowel. This skin was grasped with hemostats and carefully the stoma was dissected off of the subcutaneous tissue until we entered the hernia sack superiorly and were able to enter the abdomen. We then proceeded to circumferentially free the ileostomy off of the fascia and when this was done we inspected the bowel. The stoma was fully everted and a small part of the wall approximately was thinned out and we decided to include this in our closure. Next we trimmed the skin and this small thinned out proximal area to healthy serosa and this was sent for pathology as colostomy. The bowel was again inspected and deemed best for hand-sewn closure. Using a 4-0 PDS suture, we began at either side of the small bowel and performed a running full-thickness closure of the small bowel. After this we inspected the closure and noted good enteric closure, with healthy well vascularized tissue on both sides of the anastomosis. Once this was done, the bowel was placed back into the abdomen through the fascia without issue. The fascia was inspected and found to be strong. We removed some peristomal hernia sac from above the fascial level circumferentially. Using a running 2-0 PDS suture, we closed the posterior sheath of the fascia in a running fashion. Prior to tying , a finger sweeped confirmed that no internal organs were caught with the sutures, then this was tied. We used an 2-0 PDS suture to close the anterior fascia in a running fashion as well. 60 cc of Exparel was injected in the fascia and the skin around the stoma site. The skin was partially closed with a purse-string 4-0 Monocryl suture. This was dressed with a simple gauze dressing and a Tegaderm All counts of sponges and instruments were correct x 2. The patient was extubated and taken to the recovery room in good condition. IRohit MD, staff surgeon, was present and participated in the entire procedure with the above-listed assistance. ESTIMATED BLOOD LOSS: 10 ml DRAINS: None. SPECIMENS: Colostomy COMPLICATIONS: None. Rohit Miles MD Departments of General Surgery Pager: [phone] September 04, 2024 Please Note: This office note has been created using [employer], a speech recognition software program, and may contain errors including punctuation, grammar, spelling, gender, and inappropriate words or phrases that pertain to the sytem. Normal [facility] Pathology biopsy report Philippe (Tiss)on 09-04-2024 CASE REPORT Normal [facility] Comment on above: Order Comment: Speci men Type: TISSUE SPECIMEN Ordering Facility: [facility] Address: [address] [place] [address] Result Comment: Surg ica Pathology Report Case: [id number] Authorizing Provider: Rohit iMles MD Collected: 09/04/2024 08:28 AM Ordering Location: [facility] Received: 09/04/2024 11:32 AM Pathologist: Evgeny Perez MD Specimen: Colon, Colostomy Performed By: #### 6 6121-5 #### [facility] CLIA [id number] [address] STATES OF [facility] CLINICAL HISTORY Normal [facility] Comment on above: Order Comment: Speci men Type: TISSUE SPECIMEN Ordering Facility: [facility] Address: [address] [place] [address] Result Comment: Pre- op diagnosis: Attention to colostomy (HCC) [Z43.3] Performed By: #### 6 6121-5 #### [facility] CLIA [id number] [address] [place] [address] FINAL DIAGNOSIS Normal [facility] Comment on above: Order Comment: Speci men Type: TISSUE SPECIMEN Ordering Facility: [facility] Address: [address] [place] [address] Result Comment: A. C olostomy, excision: - Benign colostomy site. at 1328 EST Performed By: #### 6 6121-5 #### [facility] CLIA [id number] [address] [place] [address] FINAL PERFORMING LAB Normal [facility] Comment on above: Order Comment: Speci men Type: TISSUE SPECIMEN Ordering Facility: [facility] Address: [address] [place] [address] Result Comment: Diag nostic interpretation performed at: [facility], [address] [place] [address] CLIA# [id number] Receiving Lead: Hugo Romano MD Performed By: #### 6 6121-5 #### [facility] CLIA [id number] [address] [place] [address] GROSS DESCRIPTION Normal [facility] Comment on above: Order Comment: Speci men Type: TISSUE SPECIMEN Ordering Facility: [facility] Address: [address] [place] [address] Result Comment: A. C olon, Colostomy Received in formalin labeled colostomy is a mucosal ring surrounded by a scant amount of skin measuring 3.4 x 2.9 x 0.9 cm. The specimen is sectioned. [employer] sections are submitted in formalin in 1 cassette. Gross examination performed at [facility], [address] [place] [address] KVB September 04, 2024 3:16 PM Performed By: #### 6 6121-5 #### [facility] CLIA [id number] [address] [place] [address] CBC W Auto Differential pane l (Bld)on 08-31-2024 Basophils (Bld) [#/Vol] NINF [facility] Basophils/100 WBC (Bld) 0.5 % [facility] Differential cell count method Nom (Bld) Auto [facility] Eosinophils (Bld) [#/Vol] 0.13 10*3/uL [facility] Eosinophils/100 WBC (Bld) 3.3 % [facility] Erythrocyte distribution width (RBC) [Ratio] 14.5 % 11.5 - 15.0 % [facility] Hematocrit (Bld) [Volume fraction] 27.0 % Low 36.0 - 46.0 % [facility] Hemoglobin (Bld) [Mass/Vol] 9.3 g/dL Low 11.5 - 15.5 g/dL [facility] Immature granulocytes (Bld) [#/Vol] [facility] Immature granulocytes/100 WBC (Bld) 0.3 % [facility] Interpretation and review of laboratory results Abnormal [facility] Lymphocytes (Bld) [#/Vol] 0.61 10*3/uL Low [facility] Lymphocytes/100 WBC (Bld) 15.4 % [facility] MCH (RBC) [Entitic mass] 38.4 pg High 26.0 - 34.0 pg [facility] MCHC (RBC) [Mass/Vol] 34.4 g/dL 30.5 - 36.0 g/dL [facility] MCV (RBC) [Entitic vol] 111.6 fL High 80.0 - 100.0 fL [facility] Monocytes (Bld) [#/Vol] 0.43 10*3/uL [facility] Monocytes/100 WBC (Bld) 10.9 % [facility] Neutrophils (Bld) [#/Vol] 2.76 10*3/uL [facility] Neutrophils/100 WBC (Bld) 69.6 % [facility] Nucleated RBC (Bld) [#/Vol] [facility] Nucleated RBC/100 WBC (Bld) [Ratio] 0.0 % /100 WBC [facility] Platelet mean volume (Bld) [Entitic vol] 10.5 fL 9.0 - 12.7 fL [facility] Platelets (Bld) [#/Vol] 158 10*3/uL [facility] RBC (Bld) [#/Vol] 2.42 10*6/uL Low 3.90 - 5.2 0 m/uL [facility] WBC (Bld) [#/Vol] 3.96 10*3/uL [facility] Basophils (Bld) [#/Vol] 10*3/uL Normal <0.11 [facility] Comment on above: Order Comment: Speci men Type: BLOOD SPECIMENOrdering Facility: [facility] Address: [address] [place] [address] Performed By: #### 5 7021-8 ####[facility] MILLWNCLIA [id number] [place] [address] [place] Basophils/100 WBC (Bld) 0.5 % Normal [facility] Comment on above: Order Comment: Speci men Type: BLOOD SPECIMENOrdering Facility: [facility] Address: [address] [place] [address] Performed By: #### 5 7021-8 ####[facility] [id number] [place] [address] [place] Differential cell count method Nom (Bld) Auto Normal [facility] Comment on above: Order Comment: Speci men Type: BLOOD SPECIMENOrdering Facility: [facility] Address: [address] [place] [address] Performed By: #### 5 7021-8 ####[facility] [id number] [place] [address] [place] Eosinophils (Bld) [#/Vol] 0.13 10*3/uL Normal <0.46 [facility] Comment on above: Order Comment: Speci men Type: BLOOD SPECIMENOrdering Facility: [facility] Address: [address] [place] [address] Performed By: #### 5 7021-8 ####[facility] [id number] [place] [address] [place] Eosinophils/100 WBC (Bld) 3.3 % Normal [facility] Comment on above: Order Comment: Speci men Type: BLOOD SPECIMENOrdering Facility: [facility] Address: [address] [place] [address] Performed By: #### 5 7021-8 ####[facility] KAITYWNCLIA [id number] [place] [address] [place] Erythrocyte distribution width (RBC) [Ratio] 14.5 % Normal 11.5-15.0 [facility] Comment on above: Order Comment: Speci men Type: BLOOD SPECIMENOrdering Facility: [facility] Address: [address] [place] [address] Performed By: #### 5 7021-8 ####[facility] [id number] [place] [address] [place] Hematocrit (Bld) [Volume fraction] 27.0 % Low 36.0-46.0 [facility] Comment on above: Order Comment: Speci men Type: BLOOD SPECIMENOrdering Facility: [facility] Address: [address] [place] [address] Performed By: #### 5 7021-8 ####[facility] [id number] [place] [address] [place] Hemoglobin (Bld) [Mass/Vol] 9.3 g/dL Low 11.5-15.5 [facility] Comment on above: Order Comment: Speci men Type: BLOOD SPECIMENOrdering Facility: [facility] Address: [address] [place] [address] Performed By: #### 5 7021-8 ####[facility] N[facility]LESWBANGLIA [id number] [place] [address] [place] Immature granulocytes (Bld) [#/Vol] 10*3/uL Normal <0.10 [facility] Comment on above: Order Comment: Speci men Type: BLOOD SPECIMENOrdering Facility: [facility] Address: [address] [place] [address] Performed By: #### 5 7021-8 ####[facility]ENTERBANGLIA [id number] [place] [address] [place] Immature granulocytes/100 WBC (Bld) 0.3 % Normal [facility] Comment on above: Order Comment: Speci men Type: BLOOD SPECIMENOrdering Facility: [facility] Address: [address] [place] [address] Performed By: #### 5 7021-8 ####[facility] [id number] [place] [address] [place] Lymphocytes (Bld) [#/Vol] 0.61 10*3/uL Low 1.00-4.00 [facility] Comment on above: Order Comment: Speci men Type: BLOOD SPECIMENOrdering Facility: [facility] Address: [address] [place] [address] Performed By: #### 5 7021-8 ####[facility] [id number] [place] [address] [place] Lymphocytes/100 WBC (Bld) 15.4 % Normal [facility] Comment on above: Order Comment: Speci men Type: BLOOD SPECIMENOrdering Facility: [facility] Address: [address] [place] [address] Performed By: #### 5 7021-8 ####[facility] [id number] [place] [address] [place] MCH (RBC) [Entitic mass] 38.4 pg High 26.0-34.0 [facility] Comment on above: Order Comment: Speci men Type: BLOOD SPECIMENOrdering Facility: [facility] Address: [address] [place] [address] Performed By: #### 5 7021-8 ####[facility] [id number] [place] [address] [place] MCHC (RBC) [Mass/Vol] 34.4 g/dL Normal 30.5-36.0 [facility] Comment on above: Order Comment: Speci men Type: BLOOD SPECIMENOrdering Facility: [facility] Address: [address] [place] [address] Performed By: #### 5 7021-8 ####[facility] [id number] [place] [address] [place] MCV (RBC) [Entitic vol] 111.6 fL High 80.0-100.0 [facility] Comment on above: Order Comment: Speci men Type: BLOOD SPECIMENOrdering Facility: [facility] Address: [address] [place] [address] Performed By: #### 5 7021-8 ####[facility] [id number] [place] [address] [place] Monocytes (Bld) [#/Vol] 0.43 10*3/uL Normal <0.87 [facility] Comment on above: Order Comment: Speci men Type: BLOOD SPECIMENOrdering Facility: [facility] Address: [address] [place] [address] Performed By: #### 5 7021-8 ####[facility]ENTERNCLIA [id number] [place] [address] [place] Monocytes/100 WBC (Bld) 10.9 % Normal [facility] Comment on above: Order Comment: Speci men Type: BLOOD SPECIMENOrdering Facility: [facility] Address: [address] [place] [address] Performed By: #### 5 7021-8 ####[facility]ERNCA [id number] [place] [address] [place] Neutrophils (Bld) [#/Vol] 2.76 10*3/uL Normal 1.45-7.50 [facility] Comment on above: Order Comment: Speci men Type: BLOOD SPECIMENOrdering Facility: [facility] Address: [address] [place] [address] Performed By: #### 5 7021-8 ####[facility] JARONAILYNLIA [id number] [place] [address] [place] Neutrophils/100 WBC (Bld) 69.6 % Normal [facility] Comment on above: Order Comment: Speci men Type: BLOOD SPECIMENOrdering Facility: [facility] Address: [address] [place] [address] Performed By: #### 5 7021-8 ####[facility] CENTERBANGLIA [id number] [place] [address] [place] Nucleated RBC (Bld) [#/Vol] 10*3/uL Normal <0.01 [facility] Comment on above: Order Comment: Speci men Type: BLOOD SPECIMENOrdering Facility: [facility] Address: [address] [place] [address] Performed By: #### 5 7021-8 ####[facility]ENTERA [id number] [place] [address] [place] Nucleated RBC/100 WBC (Bld) [Ratio] 0.0 /100 WBC Normal [facility] Comment on above: Order Comment: Speci men Type: BLOOD SPECIMENOrdering Facility: [facility] Address: [address] [place] [address] Performed By: #### 5 7021-8 ####[facility]ENTERBANGLIA [id number] [place] [address] [place] Platelet mean volume (Bld) [Entitic vol] 10.5 fL Normal 9.0-12.7 [facility] Comment on above: Order Comment: Speci men Type: BLOOD SPECIMENOrdering Facility: [facility] Address: [address] [place] [address] Performed By: #### 5 7021-8 ####[facility]ITALLIA [id number] [place] [address] [place] Platelets (Bld) [#/Vol] 158 10*3/uL Normal 150-400 [facility] Comment on above: Order Comment: Speci men Type: BLOOD SPECIMENOrdering Facility: [facility] Address: [address] [place] [address] Performed By: #### 5 7021-8 ####[facility] CENTERNCJASE [id number] [place] [address] [place] RBC (Bld) [#/Vol] 2.42 10*6/uL Low 3.90-5.20 [facility] Comment on above: Order Comment: Speci men Type: BLOOD SPECIMENOrdering Facility: [facility] Address: [address] [place] [address] Performed By: #### 5 7021-8 ####[facility]ENTERA [id number] [place] [address] [place] WBC (Bld) [#/Vol] 3.96 10*3/uL Normal 3.70-11.00 [facility] Comment on above: Order Comment: Speci men Type: BLOOD SPECIMENOrdering Facility: [facility] Address: [address] [place] [address] Performed By: #### 5 7021-8 ####[facility]ALL[facility] [id number] [place] [address] [place] Cancer Ag125 SerPl-aCncon Cancer Ag 125 Qn 32 [arb'U]/mL Normal <39 [facility] Comment on above: Order Comment: Speci men Type: BLOOD SPECIMENOrdering Facility: [facility] Address: [address] [place] [address] Result Comment: CA 1 25 test methodology used is the Electrochemiluminescence Immunoassay by [employer]. Results obtained with different methods or kits cannot be used interchangeably.The reference interval is based on the 95th percentile of 240 apparently healthy premenopausal and postmenopausal women. At a cutoff value of 65 U/mL, the test sensitivity to distinguish ovarian carcinoma (FIGO stage I to IV) versus benign gynecological disease is 79%, with a specificity of 82%.Reference: Cancer Antigen 125 (CA 125 II) [package insert V 1.0 Nigerien]. [employer], [place], [place] (April 2015) Performed By: #### 1 0334-1 ####[facility] LABCLIA [id number] [place] [id number] [place] Basic metabolic 2000 panelon 08-27-2024 Anion gap [Moles/Vol] 13 mmol/L 8 - 15 mmol/L [facility] Calcium [Mass/Vol] 10.1 mg/dL 8.5 - 10. 2 mg/dL [facility] Chloride [Moles/Vol] 101 mmol/L 98 - 10 7 mmol/L [facility] CO2 [Moles/Vol] 26 mmol/L 22 - 30 mmol/L [facility] Creatinine [Mass/Vol] 1.29 mg/dL High 0.58 - 0.96 mg/dL [facility] GFR/1.73 sq M.predicted among non-blacks MDRD (S/P/Bld) [Vol rate/Area] 44 mL/min/{1.73_m2} Low - PINF [facility] Comment on above: Estimated Glomerular Filtration Rate (eGFR) is calculated using the 2020 CKD-EPI creatinine equation. This equation utilizes serum creatinine, sex, and age as parameters. The creatinine assay has traceable calibration to isotope dilution-mass spectrometry. Refer to KDIGO guidelines for clinical interpretation. In patients with unstable renal function, e.g. those with acute kidney injury, the eGFR may not accurately reflect actual GFR. Glucose [Mass/Vol] 123 mg/dL High 74 - 99 mg/dL [facility] Comment on above: The [place] Diab[employer] s Association (ADA) provides guidance for cutoff values for fasting glucose and random glucose. The ADA defines fasting as no caloric intake for at least 8 hours. Fasting plasma glucose results between 100 to 125 mg/dL indicate increased risk for diabetes (prediabetes). Fasting plasma glucose results greater than or equal to 126 mg/dL meet the criteria for diagnosis of diabetes. In the absence of unequivocal hyperglycemia, results should be confirmed by repeat testing. In a patient with classic symptoms of hyperglycemia or hyperglycemic crisis, random plasma glucose results greater than or equal to 200 mg/dL meet the criteria for diagnosis of diabetes. Reference: Standards of Medical Care in Diabetes 2016, [place] Diabetes Association. Diabetes Care. 2016.39(Suppl 1). Interpretation and review of laboratory results Abnormal [facility] Potassium [Moles/Vol] 3.9 mmol/L 3.7 - 5.1 mmol/L [facility] Sodium [Moles/Vol] 140 mmol/L 136 - 144 mmol/L [facility] Urea nitrogen [Mass/Vol] 28 mg/dL High 7 - 21 mg/dL [facility] Anion gap [Moles/Vol] 13 mmol/L Normal 8-15 [facility] Comment on above: Order Comment: Riaz hernández Type: BLOOD SPECIMEN [facility] Address: [address] [place] [address] Performed By: #### 2 4321-2 #### [facility] CLIA [id number] 1 [place] [address] [place] Calcium [Mass/Vol] 10.1 mg/dL Normal 8.5-10.2 [facility] Comment on above: Order Comment: Kurti betty Type: BLOOD SPECIMEN [facility] Address: [address] [place] [address] Performed By: #### 2 4321-2 #### [facility] CLIA [id number] 1 [place] [address] [place] Chloride [Moles/Vol] 101 mmol/L Normal 98-107 [facility] Comment on above: Order Comment: Speci men Type: BLOOD SPECIMEN [facility] Address: [address] [place] [address] Performed By: #### 2 4321-2 #### [facility] CLIA [id number] 1 [place] [address] [place] CO2 [Moles/Vol] 26 mmol/L Normal 22-30 [facility] Comment on above: Order Comment: Kurti men Type: BLOOD SPECIMEN [facility] Address: [address] [place] [address] Performed By: #### 2 4321-2 #### [facility] CLIA [id number] [address] STATES OF [facility] Creatinine [Mass/Vol] 1.29 mg/dL High 0.58-0.96 [facility] Comment on above: Order Comment: Riaz hernández Type: BLOOD SPECIMEN [facility] Address: [address] [place] [address] Performed By: #### 2 4321-2 #### [facility] CLIA [id number] [address] Creatinine and Glomerular filtration rate.predicted panel (S/P/Bld) 44 mL/min/1.73m??? Low >=60 [facility] Comment on above: Order Comment: Riaz hernández Type: BLOOD SPECIMEN [facility] Address: [address] [place] [address] Result Comment: Fernanda mated Glomerular Filtration Rate (eGFR) is calculated using the 2020 CKD-EPI creatinine equation. This equation utilizes serum creatinine, sex, and age as parameters. The creatinine assay has traceable calibration to isotope dilution-mass spectrometry. Refer to KDIGO guidelines for clinical interpretation. In patients with unstable renal function, e.g. those with acute kidney injury, the eGFR may not accurately reflect actual GFR. Performed By: #### 2 4321-2 #### [facility] CLIA [id number] [address] [place] Glucose [Mass/Vol] 123 mg/dL High 74-99 [facility] Comment on above: Order Comment: Riaz hernández Type: BLOOD SPECIMEN [facility] Address: [address] [place] [address] Result Comment: The [place] Diabetes Association (ADA) provides guidance for cutoff values for fasting glucose and random glucose. The ADA defines fasting as no caloric intake for at least 8 hours. Fasting plasma glucose results between 100 to 125 mg/dL indicate increased risk for diabetes (prediabetes). Fasting plasma glucose results greater than or equal to 126 mg/dL meet the criteria for diagnosis of diabetes. In the absence of unequivocal hyperglycemia, results should be confirmed by repeat testing. In a patient with classic symptoms of hyperglycemia or hyperglycemic crisis, random plasma glucose results greater than or equal to 200 mg/dL meet the criteria for diagnosis of diabetes. Reference: Standards of Medical Care in Diabetes 2016, [place] Diabetes Association. Diabetes Care. 2016.39(Suppl 1). Performed By: #### 2 4321-2 #### [facility] CLIA [id number] [address] STATES [facility] Potassium [Moles/Vol] 3.9 mmol/L Normal 3.7-5.1 [facility] Comment on above: Order Comment: Kurti men Type: BLOOD SPECIMEN [facility] Address: [address] [place] [address] Performed By: #### 2 4321-2 #### [facility] CLIA [id number] [address] Sodium [Moles/Vol] 140 mmol/L Normal 136-144 [facility] Comment on above: Order Comment: Riaz hernández Type: BLOOD SPECIMEN [facility] Address: [address] [place] [address] Performed By: #### 2 4321-2 #### [facility] CLIA [id number] [address] Urea nitrogen [Mass/Vol] 28 mg/dL High 7-21 [facility] Comment on above: Order Comment: Kurti betty Type: BLOOD SPECIMEN [facility] Address: [address] [place] [address] Performed By: #### 2 4321-2 #### [facility] CLIA [id number] 1 [place] [address] [place] CBC panel Auto (Bld)on 08-27 Erythrocyte distribution width (RBC) [Ratio] 14.6 % 11.5 - 15.0 % [facility] Hematocrit (Bld) [Volume fraction] 28.1 % Low 36.0 - 46.0 % [facility] Hemoglobin (Bld) [Mass/Vol] 9.5 g/dL Low 11.5 - 15.5 g/dL [facility] Interpretation and review of laboratory results Abnormal [facility] MCH (RBC) [Entitic mass] 38.5 pg High 26.0 - 34.0 pg [facility] MCHC (RBC) [Mass/Vol] 33.8 g/dL 30.5 - 36.0 g/dL [facility] MCV (RBC) [Entitic vol] 113.8 fL High 80.0 - 100.0 fL [facility] Nucleated RBC (Bld) [#/Vol] NINF [facility] Platelet mean volume (Bld) [Entitic vol] 11.1 fL 9.0 - 12.7 fL [facility] Platelets (Bld) [#/Vol] 160 10*3/uL [facility] RBC (Bld) [#/Vol] 2.47 10*6/uL Low 3.90 - 5.2 0 m/uL [facility] WBC (Bld) [#/Vol] 4.42 10*3/uL [facility] Erythrocyte distribution width (RBC) [Ratio] 14.6 % Normal 11.5-15.0 [facility] Comment on above: Order Comment: Speci men Type: BLOOD SPECIMEN [facility] Address: [address] [place] [address] Performed By: #### 5 8410-2 #### [facility] CLIA [id number] [address] STATES OF [facility] Hematocrit (Bld) [Volume fraction] 28.1 % Low 36.0-46.0 [facility] Comment on above: Order Comment: Speci men Type: BLOOD SPECIMEN [facility] Address: [address] [place] [address] Performed By: #### 5 8410-2 #### [facility] CLIA [id number] [address] [place] [address] [place] Hemoglobin (Bld) [Mass/Vol] 9.5 g/dL Low 11.5-15.5 [facility] Comment on above: Order Comment: Speci men Type: BLOOD SPECIMEN [facility] Address: [address] [place] [address] Performed By: #### 5 8410-2 #### [facility] CLIA [id number] [address] MCH (RBC) [Entitic mass] 38.5 pg High 26.0-34.0 [facility] Comment on above: Order Comment: Speci men Type: BLOOD SPECIMEN [facility] Address: [address] [place] [address] Performed By: #### 5 8410-2 #### [facility] CLIA [id number] [address] MCHC (RBC) [Mass/Vol] 33.8 g/dL Normal 30.5-36.0 [facility] Comment on above: Order Comment: Speci men Type: BLOOD SPECIMEN [facility] Address: [address] [place] [address] Performed By: #### 5 8410-2 #### [facility] CLIA [id number] [address] MCV (RBC) [Entitic vol] 113.8 fL High 80.0-100.0 [facility] Comment on above: Order Comment: Speci men Type: BLOOD SPECIMEN [facility] Address: [address] [place] [address] Performed By: #### 5 8410-2 #### [facility] CLIA [id number] [address] Nucleated RBC (Bld) [#/Vol] 10*3/uL Normal <0.01 [facility] Comment on above: Order Comment: Speci men Type: BLOOD SPECIMEN [facility] Address: [address] [place] [address] Performed By: #### 5 8410-2 #### [facility] CLIA [id number] [address] Platelet mean volume (Bld) [Entitic vol] 11.1 fL Normal 9.0-12.7 [facility] Comment on above: Order Comment: Speci men Type: BLOOD SPECIMEN [facility] Address: [address] [place] [address] Performed By: #### 5 8410-2 #### [facility] CLIA [id number] [address] OF [facility] Platelets (Bld) [#/Vol] 160 10*3/uL Normal 150-400 [facility] Comment on above: Order Comment: Speci men Type: BLOOD SPECIMEN [facility] Address: [address] [place] [address] Performed By: #### 5 8410-2 #### [facility] CLIA [id number] [address] [place] RBC (Bld) [#/Vol] 2.47 10*6/uL Low 3.90-5.20 [facility] Comment on above: Order Comment: Speci men Type: BLOOD SPECIMEN [facility] Address: [address] [place] [address] Performed By: #### 5 8410-2 #### [facility] CLIA [id number] [address] WBC (Bld) [#/Vol] 4.42 10*3/uL Normal 3.70-11.00 [facility] Comment on above: Order Comment: Speci men Type: BLOOD SPECIMEN [facility] Address: [address] [place] [address] Performed By: #### 5 8410-2 #### [facility] CLIA [id number] [address] OF [facility] HISTORY PHYSICALon HISTORY PHYSICAL HNO ID: [id number] Author: MULUGETA VALERIO APRN.HOUSEKEEPING ASSISTANT Service: ? Author Type: Nurse Practitioner Type: H&P Filed: 08/27/2024 11:08 Note Text: [facility] HISTORY AND PHYSICAL EXAMINATION SERVICE DATE: 08/27/2024 SERVICE TIME: 11:07 AM PRIMARY CARE PHYSICIAN: Emily Casanova, Assessment Patient has the following medical conditions which may affect leslie-operative course: Preop examination Patient has the following medical conditions which may affect leslie-operative course addressed in assessment and plan today. Chronic hypertension Lisinopril hydrochlorothiazide instructed to hold day of surgery Patient states it is always elevated at doctor visits Attention to colostomy (HCC) Surgery scheduled for September 04, 2024 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 chemotherapy [facility] 9.3/27.5 August 03, 2023 CBC pending Platelets decreased (HCC) Platelet Count 150 - 400 k/uL 175 114 Low [address] Mccoy Rheumatoid arthritis without rheumatoid factor, unspecified site (HCC) Mild per patient GERD (gastroesophageal reflux disease) PPI take morning of surgery [place]on Activity Status Index: METS: Climb a flight of stairs or walk up a hill (5.50 METs) DASI Score: 5.5 Patient denies any chest pain or undue shortness of breath with the above physical activity. ARISCAT Score: Age: 51-80 Preoperative SpO2: >=96% Respiratory infection in the last month: No Preoperative anemia: No Surgical incision: upper abdominal Duration of surgery: 2-3 hrs Emergency procedure: No ARISCAT Score: 34 ANESTHESIA FINDINGS: Intubation History: No history of difficult intubation Significant Anesthesia Considerations: none Airway History: No history of difficult airway I - PHYSICAL EVALUATION AIRWAY Patient intubated: No. DENTAL Dental findings: teeth intact. II - ANESTHESIA PLAN Anesthetic Plan: general Beta Dale Monitoring Plan Post Procedure Analgesic Plan Prepared for Surgery: . Per patient-no optimizations requested by surgeon for plan procedure. CONSULTS: Planned Anesthetic: general The Following Tests/Procedures Have Been Initiated: Orders Placed This Encounter CBC Standing Status: Future Standing Expiration Date: 11/26/2024 BASIC METABOLIC PNL Standing Status: Future Standing Expiration Date: 11/26/2024 The reason for this visit is to perform a comprehensive review of the patient's past medical history, assess their current health status and obtain any additional testing required based on anesthesia guidelines. We will also identify any potential anesthesia problems or contraindications to the planned procedure. REASON FOR VISIT: Gasper Reed is a 73 year old female who is scheduled for Procedure(s): COLOSTOMY CLOSURE (N/A) at the request of Dr. Rohit Miles for routine HANDP. My final recommendation will be communicated back to the requesting physician by way of shared medical record or letter. Subjective The patient has the following: COVID-19 Immunization Status Overdue - Covid-19 Vaccine (2023- season) Overdue since 07/17/2024 05/22/2024 Imm Admin: COVID-19 vaccine, age 12+ yr, bivalent (P[employer]ER-[employer]IONTECH) 04/27/2023 Imm Admin: COVID-19 vaccine, age 12+ yr (P[employer]ER-[employer]ION[employer] COMIRNATY) 04/21/2022 Imm Admin: COVID-19 vaccine, age 12+ yr, bivalent ([employer]ION[employer]) Only the first 3 history entries have been loaded, but more history exists. CHIEF COMPLAINT: The reason for this visit is to perform a comprehensive review of the patient's past medical history, assess their current health status and obtain any additional testing required based on anesthesia guidelines. We will also identify any potential anesthesia problems or contraindications to the planned procedure. HPI: Patient is a 73 year old female who presents for pre surgical testing. Patient reports a hx of ovarian cancer currently on Lynparza. Transverse loop diverting colostomy in June 2023. April 2024 had bowel repair. Colostomy bag is in place without problems. Patient denies any pain and states she is at the point where the colostomy can be reversed. After discussion with the surgeon the patient agrees to surgical intervention REVIEW OF SYSTEMS: General: Negative for: unintentional weight change, malaise and fever. Neurological: Negative for: headaches, seizures and strokes. Respiratory: Negative for: asthma, COPD, pneumonia within 6 weeks, URI < 2 weeks and obstructive sleep apnea. Cardiovascular: Positive for: hypertension Negative for: atrial fibrillation, CAD, chest pain, CHF, DVT/PE and hyperlipidemia. GI: See HPI. ostomy Positive for: GERD Negative for: abdominal pain, nausea and vomiting. : Negative for: dysuria, hematuria and renal failure. Endocrine: Negative for: diabetes mellitus, hyperthyroidism and hypothyroidism. Hematology: Negative for: (more content not included)... 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 On olaparib since 03/2024. Current dose 200 mg bid. Managed by Dr Mccoy. Tolerating well. Occasional nausea that zofran helps. Upcoming ostomy reversal - she is excited. Weight down 4 pounds. She is a little concerned. Appetite is fine. But ostomy limits what she can eat. No pain. ROS: 14 point ROS negative unless indicated in above HPI. Oncologic history: 07/15/23: Diagnostic laparoscopy - extensive infiltration into Ball's pouch, freddy hepatis, dense scarring between liver and diaphragm due to disease infiltration. Debulking aborted. Transverse loop colostomy created. 08/09/23: C1D1 carboplatin/paclitaxel 08/30/23: C2D1 09/20/23: C3D1 10/28/23: Interval debulking surgery. Ex-lap, enterolysis, modified posterior exenterative procedure including radical hysterectomy, BSO, en bloc resection of rectosigmoid colon, bilateral temporary stents (urology). No residual disease. 01/23/24: C6D1 carboplatin/paclitaxel. 02/01/24: Completion CT MELISSA. 03/2024: olaparib started 04/25/2024: colorectal resection biopsy of omentum FINAL DIAGNOSIS A. Omentum, biopsy: - Fragments of benign fibromuscular tissue, squamous mucosa, and organizing blood clot. B. Colonic donuts, excision: - Benign colonic tissue. C. Colostomy, reversal: - Benign colostomy site. Oncology History Ovarian cancer on left (HCC) 07/27/2023 Initial Diagnosis Ovarian cancer on left (HCC) 08/09/2023 - 01/23/2024 Chemotherapy Treatment goal 2. Oncology Non-Curative Plan Name AMB PACLITAXEL 175 D1 CARBOPLATIN 6 D1 - Q21D Status Inactive Start Date 08/09/2023 End Date 01/23/2024 Provider Hiram Mccoy, DO Chemotherapy CARBOplatin 400 mg in NaCl 0.9% 315 mL (PARAPLATIN), 400 mg (100 % of original dose 415.2 mg), INTRAVENOUS, ONCE, 6 of 6 cycles Dose modification: 415.2 mg (original dose 415.2 mg, Cycle 1), 420 mg (original dose 420 mg, Cycle 2), 405 mg (original dose 405 mg, Cycle 4), 405 mg (original dose 405 mg, Cycle 3), 406.2 mg (original dose 406.2 mg, Cycle 5), 338.5 mg (original dose 338.5 mg, Cycle 6) Administration: 400 mg (08/09/2023), 400 mg (08/30/2023), 400 mg (12/06/2023), 400 mg (09/20/2023), 400 mg (12/28/2023), 338.5 mg (01/23/2024) PACLitaxel 270 mg in NaCl 0.9% 585 mL (TAXOL), 175 mg/m2 = 270 mg, INTRAVENOUS, ONCE, 6 of 6 cycles Dose modification: 135 mg/m2 (original dose 175 mg/m2, Cycle 6, Reason: 3.) Toxicity, Comment: Severe thrombocytopenia) Administration: 270 mg (08/09/2023), 270 mg (08/30/2023), 269.5 mg (12/06/2023), 269.5 mg (09/20/2023), 269.5 mg (12/28/2023), 200 mg (01/23/2024) PE: EGOG PS 1 BP 174/77 (BP Site: Right Arm, BP Position: Sitting, BP Cuff Size: Regular Adult) Pulse 94 Temp 36.5 ?C (97.7 ?F) (Oral) Wt 51.3 kg (113 lb) SpO2 100% BMI 20.67 kg/m? Gen: well-appearing, NAD, here with her daughter Lungs: unlabored breathing on Ra Abdomen: sort, Nt , no masses, stoma looks good Pelvic: no external lesion, no pelvic masses, no groin adenopathy, speculum inserted with surgically absent cervix, intact cuff, bimanual confirms smooth and intact cuff, no masses or nodularity Extremities: no edema The sensitive examination was discussed with the Patient or Patient's Authorized Apparel Sales Associate. As applicable, any other physician, advance practice provider, medical student, or other health professional student that will be observing or involved in the sensitive examination for educational or training purposes was discussed with the Patient or Authorized Apparel Sales Associate. The Patient or Authorized Apparel Sales Associate has agreed to proceed with the sensitive examination. (Sensitive examination includes inspection and/or palpation of the breasts, pelvis, prostate and anorectal regions) Labs/Imaging: A/P: This is a 72 year old with stage IVB high grade serous ovarian vs fallopian tube cancer s/p upfront treatment here for CT review and treatment planning. Ovarian/fallopian tube cancer: - Ca-125 stable. MELISSA based on exam. - Compliant and tolerating olaparib. Dr. Mccoy manages. - Reviewed CT if CA-125 climbs, change in exam or new symptom. - RTC in 3 months. Ostomy - Reversal with CRS 09/04/24 BRIP1 mutation: - Daughter tested negative - Son aware (more content not included)... [facility] CNPPing 08-16-2024 [facility] Telephone (AGGENS3) -- GASPER REED ([id number]) 1950 F Date Time Provider Department 08/16/24 ROHIT MILES During your visit today, we recorded the following information about you: Ramsey Lopez MA 08/16/2024 4:00 PM Signed ----- Message from Rohit Miles MD sent at 08/16/2024 3:32 PM EST ----- There were no signs concerning for leak on her XR colon study and we can proceed with reversal of her loop colostomy. Rohit Miles MD August 16, 2024 3:32 PM Ramsey Lopez MA 08/16/2024 4:00 PM Signed Patient informed of results. Ramsey Lopez MA Allergies As of Date: 08/16/2024 Noted Allergy Reaction ERYTHROMYCIN 02/09/2008 6 - Diarrhea 8 - GI Upset Comments: Abdominal cramping PENICILLINS 02/09/2008 16 - Unknown Date Reviewed: 08/10/2024 Reviewed by: Rohit Miles MD - Fully Assessed Reason for Visit: Results [95] Prescriptions as of 08/16/2024 - metroNIDAZOLE (FLAGYL) 500 mg tablet Take two tabs by mouth at 1pm, 3pm, and 11pm the day prior to surgery. - neomycin 500 mg tablet Take two tabs by mouth at 1pm, 3pm, and 11pm the day prior to the surgery. - promethazine (PHENERGAN) 25 mg tablet Take 1 tab by mouth every 4 hours as needed for nausea. - lisinopril-hydroCHLOROthia zide (ZESTORETIC) 20-12.5 mg per tablet Take 1 tablet by mouth two times a day. - promethazine (PHENERGAN) 25 mg tablet Take 1 tab by mouth every 4 hours as needed for nausea. - olaparib (LYNPARZA) 100 mg tablet Take 2 tablets (200 mg) by mouth two times a day. - pantoprazole DR (PROTONIX) 40 mg tablet take 1 tablet by mouth every day - ondansetron (ZOFRAN) 8 mg tablet Take 1 tablet by mouth every 8 hours as needed for nausea/vomiting. - acetaminophen (TYLENOL) 500 mg tablet Take 2 tablets by mouth every 6 hours. - vitamin b complex capsule Take 1 capsule by mouth once daily. - oxybutynin ER (DITROPAN XL) 10 mg 24 hr tablet Take 15 mg by mouth once daily. - lidocaine-prilocaine (EMLA) 2.5-2.5 % cream Apply 60 minutes prior to accessing port - calcium carbonate (CALCIUM 600 ORAL) Take 1 tablet by mouth once daily. Problem List As Of Date 08/16/2024 Noted Resolved Chronic hypertension [I10] 07/25/1994 Other chronic allergic conjunctivitis [H10.45] 04/11/2014 Myopia, bilateral [H52.13] 04/11/2014 Regular astigmatism [H52.229] 04/11/2014 Presbyopia [H52.4] 04/11/2014 Vitreous floaters of both eyes [H43.393] 05/27/2015 Long-term use of Plaquenil [Z79.899] 06/08/2016 Combined forms of age-related cataract, bilater*06/20/2018 Ovarian mass [N83.8] 07/10/2023 07/31/2023 Severe protein-calorie malnutrition (HCC) [E43] 07/11/2023 Ovarian cancer on left (HCC) [C56.2] 07/27/2023 Platelets decreased (HCC) [D69.6] 09/16/2023 Preop examination [Z01.818] 10/19/2023 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.*10/19/2023 Rheumatoid arthritis without rheumatoid factor,*02/01/2023 Diagnosed: 10/19/2023 Ovarian cancer, bilateral (HCC) [C56.3] 10/28/2023 Post-operative state [Z98.890] 10/29/2023 FRANK (acute kidney injury) (HCC) [N17.9] 10/29/2023 Attention to colostomy (HCC) [Z43.3] 04/20/2024 Encounter Status:Closed by RAMSEY LOPEZ on 08/16/24 [facility] XR COLON SINGLE CONTRASTon 0 08-15-2024 XR COLON SINGLE CONTRAST * * *Final Report* * * DATE OF EXAM: Aug 15 2024 10:57AM AWX [id number] - XR COLON SINGLE CONTRAST / PROCEDURE REASON: Attention to colostomy (HCC) * * * * Physician Interpretation * * * * COLON EXAM: CLINICAL INDICATION: 73-year-old female history of ovarian carcinoma; status post sigmoidectomy with diverting transverse colostomy; colostomy reversal with colorectal anastomosis with creation of new diverting loop colostomy. Presurgical planning colon exam requested through the rectum to the loop colostomy prior to reversal of loop colostomy. TECHNIQUE: Following hotel custodian abdomen radiographs, the colon exam is performed by radiology physician butcher assistant Manjinder Wyatt with interpretation of submitted images including postevacuation radiographs. Contrast: Rectal: 500 ml Omnipaque 300 COMPARISON: CT abdomen and pelvis studies 02/01/2024 and 10/04/2023. FINDINGS: Blacksmith Apprentice abdomen radiographs reveal a nonobstructive distribution of bowel gas, left lower quadrant ostomy, suture material and surgical clips within the pelvis and degenerative skeletal changes. A rectal tube is present within the rectum. There is retrograde opacification of the rectum and descending colon to the level of the left lower quadrant loop colostomy with contrast material seen within the ostomy bag. There is an end-to-side colorectal anastomosis. There is early premature evacuation of contrast material with extensive contrast material overlying the pelvis. Within this constraint, there is no appreciable colorectal anastomotic or rectal pouch suture line leak. The descending colon is small caliber from the colorectal anastomosis to the left lower quadrant ostomy site. The descending colon from the colorectal anastomosis to the ostomy is considered suboptimally distended because of reported premature evacuation of contrast material throughout the exam. There is a diverticulum of the distal descending colon. Postevacuation images reveal retained contrast material within the descending colon, rectum and ostomy bag. Fluoroscopic Radiation Summary: Fluoro time: 1:46 min:sec Number of series/images: 0 IMPRESSION: The exam is considered limited by premature evacuation of contrast material. There are postoperative changes of end-to-side colorectal anastomosis. Allowing for limitations of premature extravasated contrast material overlying the pelvis, there is no definite evidence of anastomotic or rectal pouch leak. The descending colon is small caliber from the colorectal anastomosis to the left lower quadrant loop colostomy site. Suboptimal distention of the descending colon limits evaluation for the presence of stricture. Electro Mechanical Engineer[facility] Trans[facility] Date/Time: Aug 15 2024 5:00P Dictated by : MIRIAM HERNANDEZ MD This examination was interpreted and the report reviewed and electronically signed by: MIRIAM HERNANDEZ MD on Aug 16 2024 2:11PM EST [id number] [facility] CNOVon 08-10-2024 CNOV Office Visit (AGGHWB ) -- GASPER REED ([id number]) 1950 F Date Time Provider Department 08/10/24 9:30 AM ROHIT MILES During your visit today, we recorded the following information about you: Pulse Blood pressure Weight Height 101/minute 157/80 52 kg 1.575 m Rohit Miles MD 08/10/2024 10:05 AM Signed Rohit Miles M.D. Colon AND Rectal Surgery [address] [facility], [address] [place] [address] SUBJECTIVE Gasper Reed is a 73 year old White female s/p colostomy reversal with diverting loop colostomy in place HPI She is generally doing well, denies any abdominal pain or new chest symptoms. She is still taking MiraLAX once daily for the ostomy which does keep yet output thin enough. Good appetite with no new changes Review of Systems Constitutional: Negative for chills, fever and weight loss. HENT: Negative for congestion, ear pain, hearing loss, sinus pain and sore throat. Eyes: Negative for blurred vision, double vision and pain. Respiratory: Negative for cough, shortness of breath and wheezing. Cardiovascular: Negative for chest pain, palpitations and leg swelling. Gastrointestinal: Negative for abdominal pain, blood in stool, constipation, diarrhea, heartburn, nausea and vomiting. Genitourinary: Negative for dysuria, frequency and urgency. Musculoskeletal: Negative for back pain, joint pain and neck pain. Skin: Negative for itching and rash. Neurological: Negative for dizziness, weakness and headaches. Endo/Heme/Allergies: Negative for environmental allergies. Does not bruise/bleed easily. Psychiatric/Behavioral: Negative for depression and memory loss. The patient is not nervous/anxious and does not have insomnia. PAST MEDICAL HISTORY Diagnosis Date Arthritis Attention to colostomy (HCC) Cataract Colostomy in place (HCC) ovarian cancer, tumor leaning against bowel Essential hypertension, benign 07/25/1994 Generalized anxiety disorder Nausea and vomiting with chemotherapy and anesthesia Ovarian cancer on left (HCC) PONV (postoperative nausea and vomiting) PAST SURGICAL HISTORY Procedure Laterality Date COLOSTOMY 07/15/2023 transverse loop diverting L'SCOPE DX W/WO BRUSHINGS/WASHINGS 07/15/2023 with peritoneal biopsy LAPAROSCOPIC OMENTECTOMY 10/28/2023 LIG/TRNSXJ FLP TUBE ABDL/VAG APPR UNI/BI 07/25/1981 Tubal ligation TONSILLECTOMY AND ADENOIDECTOMY TOTAL ABDOM HYSTERECTOMY 10/28/2023 TOTAL ABDOMINAL HYSTERECT W/WO RMVL TUBE OVARY 10/28/2023 Social History Tobacco Use Smoking status: Former Current packs/day: 0.00 Types: Cigarettes Start date: 07/25/1972 Quit date: 07/25/1974 Years since quittin.0 Smokeless tobacco: Never Tobacco comments: Pt smoked an occ cigarette for 2 approx years Vaping Use Vaping status: Never Used Substance Use Topics Alcohol use: Not Currently Alcohol/week: 2.0 standard drinks of alcohol Types: 2 Glasses of Wine (5oz) per week Drug use: No FAMILY HISTORY Problem Relation Age of Onset Osteoporosis Mother smoker other (osteoarthritis) Mother Cancer Mother Coronary Artery Disease Father MA age 40's, age 60's; also smoked and alcoholic Mental illness Sister Renal Disease Sister Cancer Sister other (rheumatoid arthritis) Sister Coronary Artery Disease Brother MA age 49, smoker, recovering alcoholic Breast Cancer Paternal Grandmother late 70's Diabetes Paternal Grandfather Heart Paternal Grandfather Breast Cancer Maternal Aunt age 65 Ovarian cancer Maternal Aunt The ROS, medical, surgical, family, and social history were reviewed by Rohit Miles MD ALLERGIES Allergen Reactions Erythromycin Diarrhea, GI Upset Abdominal cramping Penicillins Unknown Current Outpatient Medications Medication Sig lisinopril-hydroCHLOROthia zide (ZESTORETIC) 20-12.5 mg per tablet Take 1 tablet by mouth two times a day. promethazine (PHENERGAN) 25 mg tablet Take 1 tab by mouth every 4 hours as needed for nausea. olaparib (LYNPARZA) 100 mg tablet Take 2 tablets (200 mg) by mouth two times a day. pantoprazole DR (PROTONIX) 40 mg tablet take 1 tablet by mouth every day ondansetron (ZOFRAN) 8 mg tablet Take 1 tablet by mouth every 8 hours as needed for nausea/vomiting. acetaminophen (TYLENOL) 500 mg tablet Take 2 tablets by mouth every 6 hours. vitamin b complex capsule Take 1 capsule by mouth once daily. oxybutynin ER (DITROPAN XL) 10 mg 24 hr tablet Take 15 mg by mouth once daily. lidocaine-prilocaine (EMLA) 2.5-2.5 % cream Apply 60 minutes prior to accessing port calcium carbonate (CALCIUM 600 ORAL) Take 1 tablet by mouth once daily. No current facility-administered medications for this visit. OBJECTIVE BP 157/80 (BP Site: Left Arm, BP Position: Sitting, BP Cuff Size: Regular Adult) Pulse 101 (more content not included)... [facility] Telephone (AGGENS3) -- GASPER REED ([id number]) 1950 F Date Time Provider Department 08/10/24 ROHIT MILES3 During your visit today, we recorded the following information about you: Zaina Gonzalez 08/10/2024 1:58 PM Signed Called the patient and left a voice message asking the patient to call the office back to schedule her Surgery. Zaina Gonzalez Allergies As of Date: 08/10/2024 Noted Allergy Reaction ERYTHROMYCIN 02/09/2008 6 - Diarrhea 8 - GI Upset Comments: Abdominal cramping PENICILLINS 02/09/2008 16 - Unknown Date Reviewed: 08/10/2024 Reviewed by: Rohit Miles MD - Fully Assessed Reason for Visit: Schedule Surgery [1330] Prescriptions as of 08/10/2024 - lisinopril-hydroCHLOROthia zide (ZESTORETIC) 20-12.5 mg per tablet Take 1 tablet by mouth two times a day. - promethazine (PHENERGAN) 25 mg tablet Take 1 tab by mouth every 4 hours as needed for nausea. - olaparib (LYNPARZA) 100 mg tablet Take 2 tablets (200 mg) by mouth two times a day. - pantoprazole DR (PROTONIX) 40 mg tablet take 1 tablet by mouth every day - ondansetron (ZOFRAN) 8 mg tablet Take 1 tablet by mouth every 8 hours as needed for nausea/vomiting. - acetaminophen (TYLENOL) 500 mg tablet Take 2 tablets by mouth every 6 hours. - vitamin b complex capsule Take 1 capsule by mouth once daily. - oxybutynin ER (DITROPAN XL) 10 mg 24 hr tablet Take 15 mg by mouth once daily. - lidocaine-prilocaine (EMLA) 2.5-2.5 % cream Apply 60 minutes prior to accessing port - calcium carbonate (CALCIUM 600 ORAL) Take 1 tablet by mouth once daily. Problem List As Of Date 08/10/2024 Noted Resolved Chronic hypertension [I10] 07/25/1994 Other chronic allergic conjunctivitis [H10.45] 04/11/2014 Myopia, bilateral [H52.13] 04/11/2014 Regular astigmatism [H52.229] 04/11/2014 Presbyopia [H52.4] 04/11/2014 Vitreous floaters of both eyes [H43.393] 05/27/2015 Long-term use of Plaquenil [Z79.899] 06/08/2016 Combined forms of age-related cataract, bilater*06/20/2018 Ovarian mass [N83.8] 07/10/2023 07/31/2023 Severe protein-calorie malnutrition (HCC) [E43] 07/11/2023 Ovarian cancer on left (HCC) [C56.2] 07/27/2023 Platelets decreased (HCC) [D69.6] 09/16/2023 Preop examination [Z01.818] 10/19/2023 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.*10/19/2023 Rheumatoid arthritis without rheumatoid factor,*02/01/2023 Diagnosed: 10/19/2023 Ovarian cancer, bilateral (HCC) [C56.3] 10/28/2023 Post-operative state [Z98.890] 10/29/2023 FRANK (acute kidney injury) (HCC) [N17.9] 10/29/2023 Attention to colostomy (HCC) [Z43.3] 04/20/2024 Encounter Status:Closed by ZAINA GONZALEZ on 08/10/24 [facility] CNPN Telephone (AGGENS3) -- GASPER REED ([id number]) 1950 F Date Time Provider Department 08/10/24 ROHIT MILES3 During your visit today, we recorded the following information about you: Zaina Gonzalez 08/17/2024 8:52 AM Addendum Surgery Checklist Type: COLOSTOMY REVERSAL Admission Type: inpatient Anesthesia: General Date: 09/04/24 Arrival Time: 6:00 AM Surgery Time: 8:00 AM Location: [facility] Surgery and Pre-Testing sent to [employer]Called the patient and left a voice message informing her of the Pre-Testing time, date, and location and about the time change to her procedure and arrival. Estuardo Keller has been sent a email informing her about the patient's upcoming Pre-Testing appointment. Zaina Gonzalez Allergies As of Date: 08/10/2024 Noted Allergy Reaction ERYTHROMYCIN 02/09/2008 6 - Diarrhea 8 - GI Upset Comments: Abdominal cramping PENICILLINS 02/09/2008 16 - Unknown Date Reviewed: 08/10/2024 Reviewed by: Rohit Miles MD - Fully Assessed Reason for Visit: Procedure [88] Cmt: COLOSTOMY REVERSAL Prescriptions as of 08/17/2024 - metroNIDAZOLE (FLAGYL) 500 mg tablet Take two tabs by mouth at 1pm, 3pm, and 11pm the day prior to surgery. - neomycin 500 mg tablet Take two tabs by mouth at 1pm, 3pm, and 11pm the day prior to the surgery. - promethazine (PHENERGAN) 25 mg tablet Take 1 tab by mouth every 4 hours as needed for nausea. - lisinopril-hydroCHLOROthia zide (ZESTORETIC) 20-12.5 mg per tablet Take 1 tablet by mouth two times a day. - promethazine (PHENERGAN) 25 mg tablet Take 1 tab by mouth every 4 hours as needed for nausea. - olaparib (LYNPARZA) 100 mg tablet Take 2 tablets (200 mg) by mouth two times a day. - pantoprazole DR (PROTONIX) 40 mg tablet take 1 tablet by mouth every day - ondansetron (ZOFRAN) 8 mg tablet Take 1 tablet by mouth every 8 hours as needed for nausea/vomiting. - acetaminophen (TYLENOL) 500 mg tablet Take 2 tablets by mouth every 6 hours. - vitamin b complex capsule Take 1 capsule by mouth once daily. - oxybutynin ER (DITROPAN XL) 10 mg 24 hr tablet Take 15 mg by mouth once daily. - lidocaine-prilocaine (EMLA) 2.5-2.5 % cream Apply 60 minutes prior to accessing port - calcium carbonate (CALCIUM 600 ORAL) Take 1 tablet by mouth once daily. Problem List As Of Date 08/10/2024 Noted Resolved Chronic hypertension [I10] 07/25/1994 Other chronic allergic conjunctivitis [H10.45] 04/11/2014 Myopia, bilateral [H52.13] 04/11/2014 Regular astigmatism [H52.229] 04/11/2014 Presbyopia [H52.4] 04/11/2014 Vitreous floaters of both eyes [H43.393] 05/27/2015 Long-term use of Plaquenil [Z79.899] 06/08/2016 Combined forms of age-related cataract, bilater*06/20/2018 Ovarian mass [N83.8] 07/10/2023 07/31/2023 Severe protein-calorie malnutrition (HCC) [E43] 07/11/2023 Ovarian cancer on left (HCC) [C56.2] 07/27/2023 Platelets decreased (HCC) [D69.6] 09/16/2023 Preop examination [Z01.818] 10/19/2023 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.*10/19/2023 Rheumatoid arthritis without rheumatoid factor,*02/01/2023 Diagnosed: 10/19/2023 Ovarian cancer, bilateral (HCC) [C56.3] 10/28/2023 Post-operative state [Z98.890] 10/29/2023 FRANK (acute kidney injury) (HCC) [N17.9] 10/29/2023 Attention to colostomy (HCC) [Z43.3] 04/20/2024 Encounter Status:Closed by ZAINA GONZALEZ on 08/10/24 [facility] CBC W Auto Differential valentine l (Bld)on 08-03-2024 Basophils (Bld) [#/Vol] [facility] Basophils/100 WBC (Bld) 0.4 % [facility] Differential cell count method Nom (Bld) Auto [facility] Eosinophils (Bld) [#/Vol] 0.14 10*3/uL [facility] Eosinophils/100 WBC (Bld) 2.6 % [facility] Erythrocyte distribution width (RBC) [Ratio] 15.3 % High 11.5 - 15.0 % [facility] Hematocrit (Bld) [Volume fraction] 27.5 % Low 36.0 - 46.0 % [facility] Hemoglobin (Bld) [Mass/Vol] 9.3 g/dL Low 11.5 - 15.5 g/dL [facility] Immature granulocytes (Bld) [#/Vol] [facility] Immature granulocytes/100 WBC (Bld) 0.4 % [facility] Interpretation and review of laboratory results Abnormal [facility] Lymphocytes (Bld) [#/Vol] 0.79 10*3/uL Low [facility] Lymphocytes/100 WBC (Bld) 14.5 % [facility] MCH (RBC) [Entitic mass] 37.1 pg High 26.0 - 34.0 pg [facility] MCHC (RBC) [Mass/Vol] 33.8 g/dL 30.5 - 36.0 g/dL [facility] MCV (RBC) [Entitic vol] 109.6 fL High 80.0 - 100.0 fL [facility] Monocytes (Bld) [#/Vol] 0.44 10*3/uL [facility] Monocytes/100 WBC (Bld) 8.1 % [facility] Neutrophils (Bld) [#/Vol] 4.03 10*3/uL [facility] Neutrophils/100 WBC (Bld) 74.0 % [facility] Nucleated RBC (Bld) [#/Vol] [facility] Nucleated RBC/100 WBC (Bld) [Ratio] 0.0 % /100 WBC [facility] Platelet mean volume (Bld) [Entitic vol] 11.1 fL 9.0 - 12.7 fL [facility] Platelets (Bld) [#/Vol] 175 10*3/uL [facility] RBC (Bld) [#/Vol] 2.51 10*6/uL Low 3.90 - 5.2 0 m/uL [facility] WBC (Bld) [#/Vol] 5.44 10*3/uL [facility] Basophils (Bld) [#/Vol] 10*3/uL Normal <0.11 [facility] Comment on above: Order Comment: Speci men Type: BLOOD SPECIMENOrdering Facility: [facility] Address: [address] [place] [address] Performed By: #### 5 7021-8 ####[facility] MILLWNCLIA [id number] [place] [address] [place] Basophils/100 WBC (Bld) 0.4 % Normal [facility] Comment on above: Order Comment: Speci men Type: BLOOD SPECIMENOrdering Facility: [facility] Address: [address] [place] [address] Performed By: #### 5 7021-8 ####[facility] [id number] [place] [address] [place] Differential cell count method Nom (Bld) Auto Normal [facility] Comment on above: Order Comment: Speci men Type: BLOOD SPECIMENOrdering Facility: [facility] Address: [address] [place] [address] Performed By: #### 5 7021-8 ####[facility] MILLWNCLIA [id number] [place] [address] [place] Eosinophils (Bld) [#/Vol] 0.14 10*3/uL Normal <0.46 [facility] Comment on above: Order Comment: Speci men Type: BLOOD SPECIMENOrdering Facility: [facility] Address: [address] [place] [address] Performed By: #### 5 7021-8 ####[facility] CENTERNCLIDarryl [id number] [place] [address] [place] Eosinophils/100 WBC (Bld) 2.6 % Normal [facility] Comment on above: Order Comment: Speci men Type: BLOOD SPECIMENOrdering Facility: [facility] Address: [address] [place] [address] Performed By: #### 5 7021-8 ####[facility] JARONSTARKVILLEYANIRA [id number] [place] [address] [place] Erythrocyte distribution width (RBC) [Ratio] 15.3 % High 11.5-15.0 [facility] Comment on above: Order Comment: Speci men Type: BLOOD SPECIMENOrdering Facility: [facility] Address: [address] [place] [address] Performed By: #### 5 7021-8 ####[facility] CENTERNCJASE [id number] [place] [address] [place] Hematocrit (Bld) [Volume fraction] 27.5 % Low 36.0-46.0 [facility] Comment on above: Order Comment: Speci men Type: BLOOD SPECIMENOrdering Facility: [facility] Address: [address] [place] [address] Performed By: #### 5 7021-8 ####[facility] CENTERNCLIA [id number] [place] [address] [place] Hemoglobin (Bld) [Mass/Vol] 9.3 g/dL Low 11.5-15.5 [facility] Comment on above: Order Comment: Speci men Type: BLOOD SPECIMENOrdering Facility: [facility] Address: [address] [place] [address] Performed By: #### 5 7021-8 ####[facility] CENTERNCLIA [id number] [place] [address] [place] Immature granulocytes (Bld) [#/Vol] 10*3/uL Normal <0.10 [facility] Comment on above: Order Comment: Speci men Type: BLOOD SPECIMENOrdering Facility: [facility] Address: [address] [place] [address] Performed By: #### 5 7021-8 ####[facility] [id number] [place] [address] [place] Immature granulocytes/100 WBC (Bld) 0.4 % Normal [facility] Comment on above: Order Comment: Speci men Type: BLOOD SPECIMENOrdering Facility: [facility] Address: [address] [place] [address] Performed By: #### 5 7021-8 ####[facility] [id number] [place] [address] [place] Lymphocytes (Bld) [#/Vol] 0.79 10*3/uL Low 1.00-4.00 [facility] Comment on above: Order Comment: Speci men Type: BLOOD SPECIMENOrdering Facility: [facility] Address: [address] [place] [address] Performed By: #### 5 7021-8 ####[facility] [id number] [place] [address] [place] Lymphocytes/100 WBC (Bld) 14.5 % Normal [facility] Comment on above: Order Comment: Speci men Type: BLOOD SPECIMENOrdering Facility: [facility] Address: [address] [place] [address] Performed By: #### 5 7021-8 ####[facility] [id number] [place] [address] [place] MCH (RBC) [Entitic mass] 37.1 pg High 26.0-34.0 [facility] Comment on above: Order Comment: Speci men Type: BLOOD SPECIMENOrdering Facility: [facility] Address: [address] [place] [address] Performed By: #### 5 7021-8 ####[facility] KAITYWNCLIA [id number] [place] [address] [place] MCHC (RBC) [Mass/Vol] 33.8 g/dL Normal 30.5-36.0 [facility] Comment on above: Order Comment: Speci men Type: BLOOD SPECIMENOrdering Facility: [facility] Address: [address] [place] [address] Performed By: #### 5 7021-8 ####[facility] CENTERNCLIA [id number] [place] [address] [place] MCV (RBC) [Entitic vol] 109.6 fL High 80.0-100.0 [facility] Comment on above: Order Comment: Speci men Type: BLOOD SPECIMENOrdering Facility: [facility] Address: [address] [place] [address] Performed By: #### 5 7021-8 ####[facility] CENTERNCA [id number] [place] [address] [place] Monocytes (Bld) [#/Vol] 0.44 10*3/uL Normal <0.87 [facility] Comment on above: Order Comment: Speci men Type: BLOOD SPECIMENOrdering Facility: [facility] Address: [address] [place] [address] Performed By: #### 5 7021-8 ####[facility] CENTERNCLIA [id number] [place] [address] [place] Monocytes/100 WBC (Bld) 8.1 % Normal [facility] Comment on above: Order Comment: Speci men Type: BLOOD SPECIMENOrdering Facility: [facility] Address: [address] [place] [address] Performed By: #### 5 7021-8 ####[facility] CENTERNCMOUNTAIN [facility] [id number] [place] [address] [place] Neutrophils (Bld) [#/Vol] 4.03 10*3/uL Normal 1.45-7.50 [facility] Comment on above: Order Comment: Speci men Type: BLOOD SPECIMENOrdering Facility: [facility] Address: [address] [place] [address] Performed By: #### 5 7021-8 ####[facility] MEDICAL CENTERA [id number] [place] [address] [place] Neutrophils/100 WBC (Bld) 74.0 % Normal [facility] Comment on above: Order Comment: Speci men Type: BLOOD SPECIMENOrdering Facility: [facility] Address: [address] [place] [address] Performed By: #### 5 7021-8 ####[facility] [id number] [place] [address] [place] Nucleated RBC (Bld) [#/Vol] 10*3/uL Normal <0.01 [facility] Comment on above: Order Comment: Speci men Type: BLOOD SPECIMENOrdering Facility: [facility] Address: [address] [place] [address] Performed By: #### 5 7021-8 ####[facility] [id number] [place] [address] [place] Nucleated RBC/100 WBC (Bld) [Ratio] 0.0 /100 WBC Normal [facility] Comment on above: Order Comment: Speci men Type: BLOOD SPECIMENOrdering Facility: [facility] Address: [address] [place] [address] Performed By: #### 5 7021-8 ####[facility] [id number] [place] [address] [place] Platelet mean volume (Bld) [Entitic vol] 11.1 fL Normal 9.0-12.7 [facility] Comment on above: Order Comment: Speci men Type: BLOOD SPECIMENOrdering Facility: [facility] Address: [address] [place] [address] Performed By: #### 5 7021-8 ####[facility] CENTERNCLIA [id number] [place] [address] [place] Platelets (Bld) [#/Vol] 175 10*3/uL Normal 150-400 [facility] Comment on above: Order Comment: Speci men Type: BLOOD SPECIMENOrdering Facility: [facility] Address: [address] [place] [address] Performed By: #### 5 7021-8 ####[facility] CENTERNCMOUNTAIN POINT [facility] [id number] [place] [address] [place] RBC (Bld) [#/Vol] 2.51 10*6/uL Low 3.90-5.20 [facility] Comment on above: Order Comment: Speci men Type: BLOOD SPECIMENOrdering Facility: [facility] Address: [address] [place] [address] Performed By: #### 5 7021-8 ####[facility] CENTERNCA [id number] [place] [address] [place] WBC (Bld) [#/Vol] 5.44 10*3/uL Normal 3.70-11.00 [facility] Comment on above: Order Comment: Speci men Type: BLOOD SPECIMENOrdering Facility: [facility] Address: [address] [place] [address] Performed By: #### 5 7021-8 ####[facility] CENTERNCLIA [id number] [place] [address] [place] CNOVSPon 08-03-2024 CNOVSP Normal [facility] Cancer Ag125 SerPl-aCncon Cancer Ag 125 Qn 31 [arb'U]/mL Normal <39 [facility] Comment on above: Order Comment: Speci men Type: BLOOD SPECIMENOrdering Facility: [facility] Address: [address] [place] [address] Result Comment: CA 1 25 test methodology used is the Electrochemiluminescence Immunoassay by [employer]. Results obtained with different methods or kits cannot be used interchangeably.The reference interval is based on the 95th percentile of 240 apparently healthy premenopausal and postmenopausal women. At a cutoff value of 65 U/mL, the test sensitivity to distinguish ovarian carcinoma (FIGO stage I to IV) versus benign gynecological disease is 79%, with a specificity of 82%.Reference: Cancer Antigen 125 (CA 125 II) [package insert V 1.0 [place]ien]. [employer], [place], [place] (April 2015) Performed By: #### 1 0334-1 ####[facility] LABCLIA [id number] [address] OF [facility] Comprehensive metabolic 2000 panelOrdered By: Sophia Hall on 08-03-2024 Albumin [Mass/Vol] 4.1 g/dL 3.9 - 4.9 g/dL [facility] ALP [Catalytic activity/Vol] 96 U/L 34 - 123 U/L [facility] ALT [Catalytic activity/Vol] 18 U/L 7 - 38 U/L [facility] Anion gap [Moles/Vol] 11 mmol/L 8 - 15 mmol/L [facility] AST [Catalytic activity/Vol] 22 U/L 13 - 35 U/L [facility] Bilirubin [Mass/Vol] 0.7 mg/dL 0.2 - 1 .3 mg/dL [facility] Calcium [Mass/Vol] 10.1 mg/dL 8.5 - 10. 2 mg/dL [facility] Chloride [Moles/Vol] 100 mmol/L 98 - 10 7 mmol/L [facility] CO2 [Moles/Vol] 27 mmol/L 22 - 30 mmol/L [facility] Creatinine [Mass/Vol] 1.25 mg/dL High 0.58 - 0.96 mg/dL [facility] GFR/1.73 sq M.predicted among non-blacks MDRD (S/P/Bld) [Vol rate/Area] 46 mL/min/{1.73_m2} Low - PINF [facility] Comment on above: Estimated Glomerular Filtration Rate (eGFR) is calculated using the 2020 CKD-EPI creatinine equation. This equation utilizes serum creatinine, sex, and age as parameters. The creatinine assay has traceable calibration to isotope dilution-mass spectrometry. Refer to KDIGO guidelines for clinical interpretation. In patients with unstable renal function, e.g. those with acute kidney injury, the eGFR may not accurately reflect actual GFR. Glucose [Mass/Vol] 127 mg/dL High 74 - 99 mg/dL [facility] Comment on above: The [place] Diab[employer] s Association (ADA) provides guidance for cutoff values for fasting glucose and random glucose. The ADA defines fasting as no caloric intake for at least 8 hours. Fasting plasma glucose results between 100 to 125 mg/dL indicate increased risk for diabetes (prediabetes). Fasting plasma glucose results greater than or equal to 126 mg/dL meet the criteria for diagnosis of diabetes. In the absence of unequivocal hyperglycemia, results should be confirmed by repeat testing. In a patient with classic symptoms of hyperglycemia or hyperglycemic crisis, random plasma glucose results greater than or equal to 200 mg/dL meet the criteria for diagnosis of diabetes. Reference: Standards of Medical Care in Diabetes 2016, [place] Diabetes Association. Diabetes Care. 2016.39(Suppl 1). Interpretation and review of laboratory results Abnormal [facility] Potassium [Moles/Vol] 3.8 mmol/L 3.7 - 5.1 mmol/L [facility] Protein [Mass/Vol] 6.5 g/dL 6.3 - 8.0 g/dL [facility] Sodium [Moles/Vol] 138 mmol/L 136 - 144 mmol/L [facility] Urea nitrogen [Mass/Vol] 35 mg/dL High 7 - 21 mg/dL [facility] Comprehensive metabolic 2000 panelon 08-03-2024 Albumin [Mass/Vol] 4.1 g/dL Normal 3.9-4.9 [facility] Comment on above: Order Comment: Speci men Type: BLOOD SPECIMENOrdering Facility: [facility] Address: [address] [place] [address] Performed By: #### 2 4323-8 ####[facility] YADIMARTIN MEMORIAL HOSPITALDarryl [id number] [place] [address] [place] ALP [Catalytic activity/Vol] 96 U/L Normal 34-123 [facility] Comment on above: Order Comment: Speci men Type: BLOOD SPECIMENOrdering Facility: [facility] Address: [address] [place] [address] Performed By: #### 2 4323-8 ####[facility] HOSPITALLIA [id number] [place] [address] [place] ALT [Catalytic activity/Vol] 18 U/L Normal 7-38 [facility] Comment on above: Order Comment: Speci men Type: BLOOD SPECIMENOrdering Facility: [facility] Address: [address] [place] [address] Performed By: #### 2 4323-8 ####[facility] [id number] [place] [address] [place] Anion gap [Moles/Vol] 11 mmol/L Normal 8-15 [facility] Comment on above: Order Comment: Speci men Type: BLOOD SPECIMENOrdering Facility: [facility] Address: [address] [place] [address] Performed By: #### 2 4323-8 ####[facility] [id number] [place] [address] [place] AST [Catalytic activity/Vol] 22 U/L Normal 13-35 [facility] Comment on above: Order Comment: Speci men Type: BLOOD SPECIMENOrdering Facility: [facility] Address: [address] [place] [address] Performed By: #### 2 4323-8 ####[facility] [id number] [place] [address] [place] Bilirubin [Mass/Vol] 0.7 mg/dL Normal 0.2-1.3 [facility] Comment on above: Order Comment: Speci men Type: BLOOD SPECIMENOrdering Facility: [facility] Address: [address] [place] [address] Performed By: #### 2 4323-8 ####[facility] MILLTOWNCLIA [id number] [place] [address] [place] Calcium [Mass/Vol] 10.1 mg/dL Normal 8.5-10.2 [facility] Comment on above: Order Comment: Speci men Type: BLOOD SPECIMENOrdering Facility: [facility] Address: [address] [place] [address] Performed By: #### 2 4323-8 ####[facility] MILLWNCLIA [id number] [place] [address] [place] Chloride [Moles/Vol] 100 mmol/L Normal 98-107 [facility] Comment on above: Order Comment: Speci men Type: BLOOD SPECIMENOrdering Facility: [facility] Address: [address] [place] [address] Performed By: #### 2 4323-8 ####[facility] NOR[facility] NAPLESWNCLIA [id number] [place] [address] [place] CO2 [Moles/Vol] 27 mmol/L Normal 22-30 [facility] Comment on above: Order Comment: Speci men Type: BLOOD SPECIMENOrdering Facility: [facility] Address: [address] [place] [address] Performed By: #### 2 4323-8 ####[facility] MILLTOWNCLIA [id number] [place] [address] [place] Creatinine [Mass/Vol] 1.25 mg/dL High 0.58-0.96 [facility] Comment on above: Order Comment: Speci men Type: BLOOD SPECIMENOrdering Facility: [facility] Address: [address] [place] [address] Performed By: #### 2 4323-8 ####[facility] MILLTOWNCLIA [id number] [place] [address] [place] Creatinine and Glomerular filtration rate.predicted panel (S/P/Bld) 46 mL/min/1.73m??? Low >=60 [facility] Comment on above: Order Comment: Riaz hernández Type: BLOOD SPECIMENOrdering Facility: [facility] Address: [address] [place] [address] Result Comment: Fernanda mated Glomerular Filtration Rate (eGFR) is calculated using the 2020 CKD-EPI creatinine equation. This equation utilizes serum creatinine, sex, and age as parameters. The creatinine assay has traceable calibration to isotope dilution-mass spectrometry. Refer to KDIGO guidelines for clinical interpretation. In patients with unstable renal function, e.g. those with acute kidney injury, the eGFR may not accurately reflect actual GFR. Performed By: #### 2 4323-8 ####[facility] [id number] [place] [address] [place] Glucose [Mass/Vol] 127 mg/dL High 74-99 [facility] Comment on above: Order Comment: Riaz hernández Type: BLOOD SPECIMENOrdering Facility: [facility] Address: [address] [place] [address] Result Comment: The [place] Diabetes Association (ADA) provides guidance for cutoff values for fasting glucose and random glucose. The ADA defines fasting as no caloric intake for at least 8 hours. Fasting plasma glucose results between 100 to 125 mg/dL indicate increased risk for diabetes (prediabetes).Fasting plasma glucose results greater than or equal to 126 mg/dL meet the criteria for diagnosis of diabetes. In the absence of unequivocal hyperglycemia, results should be confirmed by repeat testing. In a patient with classic symptoms of hyperglycemia or hyperglycemic crisis, random plasma glucose results greater than or equal to 200 mg/dL meet the criteria for diagnosis of diabetes.Reference: Standards of Medical Care in Diabetes 2016, [place] Diabetes Association. Diabetes Care. 2016.39(Suppl 1). Performed By: #### 2 4323-8 ####[facility] [id number] [place] [address] [place] Potassium [Moles/Vol] 3.8 mmol/L Normal 3.7-5.1 [facility] Comment on above: Order Comment: Speci men Type: BLOOD SPECIMENOrdering Facility: [facility] Address: [address] [place] [address] Performed By: #### 2 4323-8 ####[facility]ENTERNCMOUNT[facility] [id number] [place] [address] [place] Protein [Mass/Vol] 6.5 g/dL Normal 6.3-8.0 [facility] Comment on above: Order Comment: Speci men Type: BLOOD SPECIMENOrdering Facility: [facility] Address: [address] [place] [address] Performed By: #### 2 4323-8 ####[facility] [id number] [place] [address] [place] Sodium [Moles/Vol] 138 mmol/L Normal 136-144 [facility] Comment on above: Order Comment: Speci men Type: BLOOD SPECIMENOrdering Facility: [facility] Address: [address] [place] [address] Performed By: #### 2 4323-8 ####[facility] HOSPITALLIA [id number] [place] [address] [place] Urea nitrogen [Mass/Vol] 35 mg/dL High 7-21 [facility] Comment on above: Order Comment: Speci men Type: BLOOD SPECIMENOrdering Facility: [facility] Address: [address] [place] [address] Performed By: #### 2 4323-8 ####[facility] MED[facility] CENTERA [id number] [place] [address] [place] CNPNon 07-13-2024 CNPN Normal [facility] CBC W Auto Differential pane l (Bld)on 07-04-2024 Basophils (Bld) [#/Vol] NINF [facility] Basophils/100 WBC (Bld) 0.5 % [facility] Differential cell count method Nom (Bld) Auto [facility] Eosinophils (Bld) [#/Vol] 0.15 10*3/uL [facility] Eosinophils/100 WBC (Bld) 3.6 % [facility] Erythrocyte distribution width (RBC) [Ratio] 17.0 % High 11.5 - 15.0 % [facility] Hematocrit (Bld) [Volume fraction] 28.0 % Low 36.0 - 46.0 % [facility] Hemoglobin (Bld) [Mass/Vol] 9.6 g/dL Low 11.5 - 15.5 g/dL [facility] Immature granulocytes (Bld) [#/Vol] [facility] Immature granulocytes/100 WBC (Bld) 0.2 % [facility] Interpretation and review of laboratory results Abnormal [facility] Lymphocytes (Bld) [#/Vol] 0.97 10*3/uL Low [facility] Lymphocytes/100 WBC (Bld) 23.5 % [facility] MCH (RBC) [Entitic mass] 36.4 pg High 26.0 - 34.0 pg [facility] MCHC (RBC) [Mass/Vol] 34.3 g/dL 30.5 - 36.0 g/dL [facility] MCV (RBC) [Entitic vol] 106.1 fL High 80.0 - 100.0 fL [facility] Monocytes (Bld) [#/Vol] 0.40 10*3/uL [facility] Monocytes/100 WBC (Bld) 9.7 % [facility] Neutrophils (Bld) [#/Vol] 2.58 10*3/uL [facility] Neutrophils/100 WBC (Bld) 62.5 % [facility] Nucleated RBC (Bld) [#/Vol] [facility] Nucleated RBC/100 WBC (Bld) [Ratio] 0.0 % /100 WBC [facility] Platelet mean volume (Bld) [Entitic vol] 10.6 fL 9.0 - 12.7 fL [facility] Platelets (Bld) [#/Vol] 137 10*3/uL Low [facility] RBC (Bld) [#/Vol] 2.64 10*6/uL Low 3.90 - 5.2 0 m/uL [facility] WBC (Bld) [#/Vol] 4.13 10*3/uL [facility] Basophils (Bld) [#/Vol] 10*3/uL Normal <0.11 [facility] Comment on above: Order Comment: Speci men Type: BLOOD SPECIMENOrdering Facility: [facility] Address: [address] [place] [address] Performed By: #### 5 7021-8 ####[facility] MILLWNCLIA [id number] [place] [address] [place] Basophils/100 WBC (Bld) 0.5 % Normal [facility] Comment on above: Order Comment: Speci men Type: BLOOD SPECIMENOrdering Facility: [facility] Address: [address] [place] [address] Performed By: #### 5 7021-8 ####[facility]ENTERA [id number] [place] [address] [place] Differential cell count method Nom (Bld) Auto Normal [facility] Comment on above: Order Comment: Speci men Type: BLOOD SPECIMENOrdering Facility: [facility] Address: [address] [place] [address] Performed By: #### 5 7021-8 ####[facility]A [id number] [place] [address] [place] Eosinophils (Bld) [#/Vol] 0.15 10*3/uL Normal <0.46 [facility] Comment on above: Order Comment: Speci men Type: BLOOD SPECIMENOrdering Facility: [facility] Address: [address] [place] [address] Performed By: #### 5 7021-8 ####[facility] HOSPITALLIA [id number] [place] [address] [place] Eosinophils/100 WBC (Bld) 3.6 % Normal [facility] Comment on above: Order Comment: Speci men Type: BLOOD SPECIMENOrdering Facility: [facility] Address: [address] [place] [address] Performed By: #### 5 7021-8 ####[facility] JARONSTARKVILLEYANIRA [id number] [place] [address] [place] Erythrocyte distribution width (RBC) [Ratio] 17.0 % High 11.5-15.0 [facility] Comment on above: Order Comment: Speci men Type: BLOOD SPECIMENOrdering Facility: [facility] Address: [address] [place] [address] Performed By: #### 5 7021-8 ####[facility]ERNCM[facility] [id number] [place] [address] [place] Hematocrit (Bld) [Volume fraction] 28.0 % Low 36.0-46.0 [facility] Comment on above: Order Comment: Speci men Type: BLOOD SPECIMENOrdering Facility: [facility] Address: [address] [place] [address] Performed By: #### 5 7021-8 ####[facility]A [id number] [place] [address] [place] Hemoglobin (Bld) [Mass/Vol] 9.6 g/dL Low 11.5-15.5 [facility] Comment on above: Order Comment: Speci men Type: BLOOD SPECIMENOrdering Facility: [facility] Address: [address] [place] [address] Performed By: #### 5 7021-8 ####[facility]ENTERNCLIA [id number] [place] [address] [place] Immature granulocytes (Bld) [#/Vol] 10*3/uL Normal <0.10 [facility] Comment on above: Order Comment: Speci men Type: BLOOD SPECIMENOrdering Facility: [facility] Address: [address] [place] [address] Performed By: #### 5 7021-8 ####[facility]ENTERNCLIA [id number] [place] [address] [place] Immature granulocytes/100 WBC (Bld) 0.2 % Normal [facility] Comment on above: Order Comment: Speci men Type: BLOOD SPECIMENOrdering Facility: [facility] Address: [address] [place] [address] Performed By: #### 5 7021-8 ####[facility] [id number] [place] [address] [place] Lymphocytes (Bld) [#/Vol] 0.97 10*3/uL Low 1.00-4.00 [facility] Comment on above: Order Comment: Speci men Type: BLOOD SPECIMENOrdering Facility: [facility] Address: [address] [place] [address] Performed By: #### 5 7021-8 ####[facility] [id number] [place] [address] [place] Lymphocytes/100 WBC (Bld) 23.5 % Normal [facility] Comment on above: Order Comment: Speci men Type: BLOOD SPECIMENOrdering Facility: [facility] Address: [address] [place] [address] Performed By: #### 5 7021-8 ####[facility] [id number] [place] [address] [place] MCH (RBC) [Entitic mass] 36.4 pg High 26.0-34.0 [facility] Comment on above: Order Comment: Speci men Type: BLOOD SPECIMENOrdering Facility: [facility] Address: [address] [place] [address] Performed By: #### 5 7021-8 ####[facility]ERNCLI [id number] [place] [address] [place] MCHC (RBC) [Mass/Vol] 34.3 g/dL Normal 30.5-36.0 [facility] Comment on above: Order Comment: Speci men Type: BLOOD SPECIMENOrdering Facility: [facility] Address: [address] [place] [address] Performed By: #### 5 7021-8 ####[facility] [id number] [place] [address] [place] MCV (RBC) [Entitic vol] 106.1 fL High 80.0-100.0 [facility] Comment on above: Order Comment: Speci men Type: BLOOD SPECIMENOrdering Facility: [facility] Address: [address] [place] [address] Performed By: #### 5 7021-8 ####[facility] [id number] [place] [address] [place] Monocytes (Bld) [#/Vol] 0.40 10*3/uL Normal <0.87 [facility] Comment on above: Order Comment: Speci men Type: BLOOD SPECIMENOrdering Facility: [facility] Address: [address] [place] [address] Performed By: #### 5 7021-8 ####[facility] [id number] [place] [address] [place] Monocytes/100 WBC (Bld) 9.7 % Normal [facility] Comment on above: Order Comment: Speci men Type: BLOOD SPECIMENOrdering Facility: [facility] Address: [address] [place] [address] Performed By: #### 5 7021-8 ####[facility] [id number] [place] [address] [place] Neutrophils (Bld) [#/Vol] 2.58 10*3/uL Normal 1.45-7.50 [facility] Comment on above: Order Comment: Speci men Type: BLOOD SPECIMENOrdering Facility: [facility] Address: [address] [place] [address] Performed By: #### 5 7021-8 ####[facility] JARONSTARKVILLEHAIA [id number] [place] [address] [place] Neutrophils/100 WBC (Bld) 62.5 % Normal [facility] Comment on above: Order Comment: Speci men Type: BLOOD SPECIMENOrdering Facility: [facility] Address: [address] [place] [address] Performed By: #### 5 7021-8 ####[facility]ENTERA [id number] [place] [address] [place] Nucleated RBC (Bld) [#/Vol] 10*3/uL Normal <0.01 [facility] Comment on above: Order Comment: Speci men Type: BLOOD SPECIMENOrdering Facility: [facility] Address: [address] [place] [address] Performed By: #### 5 7021-8 ####[facility]ENTERA [id number] [place] [address] [place] Nucleated RBC/100 WBC (Bld) [Ratio] 0.0 /100 WBC Normal [facility] Comment on above: Order Comment: Speci men Type: BLOOD SPECIMENOrdering Facility: [facility] Address: [address] [place] [address] Performed By: #### 5 7021-8 ####[facility] JARONSOUTHERN INDIANA REHABILITATION HOSPITALLIA [id number] [place] [address] [place] Platelet mean volume (Bld) [Entitic vol] 10.6 fL Normal 9.0-12.7 [facility] Comment on above: Order Comment: Speci men Type: BLOOD SPECIMENOrdering Facility: [facility] Address: [address] [place] [address] Performed By: #### 5 7021-8 ####[facility]ENTERNCLIA [id number] [place] [address] [place] Platelets (Bld) [#/Vol] 137 10*3/uL Low 150-400 [facility] Comment on above: Order Comment: Speci men Type: BLOOD SPECIMENOrdering Facility: [facility] Address: [address] [place] [address] Performed By: #### 5 7021-8 ####[facility]ENTERNCLIA [id number] [place] [address] [place] RBC (Bld) [#/Vol] 2.64 10*6/uL Low 3.90-5.20 [facility] Comment on above: Order Comment: Speci men Type: BLOOD SPECIMENOrdering Facility: [facility] Address: [address] [place] [address] Performed By: #### 5 7021-8 ####[facility] CENTERNCA [id number] [place] [address] [place] WBC (Bld) [#/Vol] 4.13 10*3/uL Normal 3.70-11.00 [facility] Comment on above: Order Comment: Speci men Type: BLOOD SPECIMENOrdering Facility: [facility] Address: [address] [place] [address] Performed By: #### 5 7021-8 ####[facility]ENTERNCLIA [id number] [place] [address] [place] Cancer Ag125 SerPl-aCncon Cancer Ag 125 Qn 26 [arb'U]/mL Normal <39 [facility] Comment on above: Order Comment: Speci men Type: BLOOD SPECIMENOrdering Facility: [facility] Address: [address] [place] [address] Result Comment: CA 1 25 test methodology used is the Electrochemiluminescence Immunoassay by [employer]. Results obtained with different methods or kits cannot be used interchangeably.The reference interval is based on the 95th percentile of 240 apparently healthy premenopausal and postmenopausal women. At a cutoff value of 65 U/mL, the test sensitivity to distinguish ovarian carcinoma (FIGO stage I to IV) versus benign gynecological disease is 79%, with a specificity of 82%.Reference: Cancer Antigen 125 (CA 125 II) [package insert V 1.0 Nigerien]. [employer], [place], [place] (April 2015) Performed By: #### 1 0334-1 ####[facility] LABCLIA [id number] [place] [address] [place] Comprehensive metabolic 2000 panelOrdered By: Sophia Hall on 07-04-2024 Albumin [Mass/Vol] 4.3 g/dL 3.9 - 4.9 g/dL [facility] ALP [Catalytic activity/Vol] 106 U/L 34 - 123 U/L [facility] ALT [Catalytic activity/Vol] 20 U/L 7 - 38 U/L [facility] Anion gap [Moles/Vol] 10 mmol/L 8 - 15 mmol/L [facility] AST [Catalytic activity/Vol] 27 U/L 13 - 35 U/L [facility] Bilirubin [Mass/Vol] 0.8 mg/dL 0.2 - 1 .3 mg/dL [facility] Calcium [Mass/Vol] 9.9 mg/dL 8.5 - 10. 2 mg/dL [facility] Chloride [Moles/Vol] 102 mmol/L 98 - 10 7 mmol/L [facility] CO2 [Moles/Vol] 27 mmol/L 22 - 30 mmol/L [facility] Creatinine [Mass/Vol] 1.26 mg/dL High 0.58 - 0.96 mg/dL [facility] GFR/1.73 sq M.predicted among non-blacks MDRD (S/P/Bld) [Vol rate/Area] 45 mL/min/{1.73_m2} Low - PINF [facility] Comment on above: Estimated Glomerular Filtration Rate (eGFR) is calculated using the 2020 CKD-EPI creatinine equation. This equation utilizes serum creatinine, sex, and age as parameters. The creatinine assay has traceable calibration to isotope dilution-mass spectrometry. Refer to KDIGO guidelines for clinical interpretation. In patients with unstable renal function, e.g. those with acute kidney injury, the eGFR may not accurately reflect actual GFR. Glucose [Mass/Vol] 119 mg/dL High 74 - 99 mg/dL [facility] Comment on above: The [place] Diab[employer] s Association (ADA) provides guidance for cutoff values for fasting glucose and random glucose. The ADA defines fasting as no caloric intake for at least 8 hours. Fasting plasma glucose results between 100 to 125 mg/dL indicate increased risk for diabetes (prediabetes). Fasting plasma glucose results greater than or equal to 126 mg/dL meet the criteria for diagnosis of diabetes. In the absence of unequivocal hyperglycemia, results should be confirmed by repeat testing. In a patient with classic symptoms of hyperglycemia or hyperglycemic crisis, random plasma glucose results greater than or equal to 200 mg/dL meet the criteria for diagnosis of diabetes. Reference: Standards of Medical Care in Diabetes 2016, [place] Diabetes Association. Diabetes Care. 2016.39(Suppl 1). Interpretation and review of laboratory results Abnormal [facility] Potassium [Moles/Vol] 4.2 mmol/L 3.7 - 5.1 mmol/L [facility] Protein [Mass/Vol] 6.6 g/dL 6.3 - 8.0 g/dL [facility] Sodium [Moles/Vol] 139 mmol/L 136 - 144 mmol/L [facility] Urea nitrogen [Mass/Vol] 30 mg/dL High 7 - 21 mg/dL [facility] Comprehensive metabolic 2000 panelon 07-04-2024 Albumin [Mass/Vol] 4.3 g/dL Normal 3.9-4.9 [facility] Comment on above: Order Comment: Speci men Type: BLOOD SPECIMENOrdering Facility: [facility] Address: [address] [place] [address] Performed By: #### 2 4323-8 ####[facility] [id number] [place] [address] [place] ALP [Catalytic activity/Vol] 106 U/L Normal 34-123 [facility] Comment on above: Order Comment: Speci men Type: BLOOD SPECIMENOrdering Facility: [facility] Address: [address] [place] [address] Performed By: #### 2 4323-8 ####[facility]ALL[facility] [id number] [place] [address] [place] ALT [Catalytic activity/Vol] 20 U/L Normal 7-38 [facility] Comment on above: Order Comment: Speci men Type: BLOOD SPECIMENOrdering Facility: [facility] Address: [address] [place] [address] Performed By: #### 2 4323-8 ####[facility] MILLTOWNCLIA [id number] [place] [address] [place] Anion gap [Moles/Vol] 10 mmol/L Normal 8-15 [facility] Comment on above: Order Comment: Speci men Type: BLOOD SPECIMENOrdering Facility: [facility] Address: [address] [place] [address] Performed By: #### 2 4323-8 ####[facility] NAPLESWNCLIA [id number] [place] [address] [place] AST [Catalytic activity/Vol] 27 U/L Normal 13-35 [facility] Comment on above: Order Comment: Speci men Type: BLOOD SPECIMENOrdering Facility: [facility] Address: [address] [place] [address] Performed By: #### 2 4323-8 ####[facility] INSTITUTETOWNCLIA [id number] [place] [address] [place] Bilirubin [Mass/Vol] 0.8 mg/dL Normal 0.2-1.3 [facility] Comment on above: Order Comment: Speci men Type: BLOOD SPECIMENOrdering Facility: [facility] Address: [address] [place] [address] Performed By: #### 2 4323-8 ####[facility] MILLTOWNCLIA [id number] [place] [address] [place] Calcium [Mass/Vol] 9.9 mg/dL Normal 8.5-10.2 [facility] Comment on above: Order Comment: Speci men Type: BLOOD SPECIMENOrdering Facility: [facility] Address: [address] [place] [address] Performed By: #### 2 4323-8 ####[facility] JARONWNCLIA [id number] [place] [address] [place] Chloride [Moles/Vol] 102 mmol/L Normal 98-107 [facility] Comment on above: Order Comment: Speci men Type: BLOOD SPECIMENOrdering Facility: [facility] Address: [address] [place] [address] Performed By: #### 2 4323-8 ####[facility] NAPLESWNCLIA [id number] [place] [address] [place] CO2 [Moles/Vol] 27 mmol/L Normal 22-30 [facility] Comment on above: Order Comment: Speci men Type: BLOOD SPECIMENOrdering Facility: [facility] Address: [address] [place] [address] Performed By: #### 2 4323-8 ####[facility]ENTERNCLIA [id number] [place] [address] [place] Creatinine [Mass/Vol] 1.26 mg/dL High 0.58-0.96 [facility] Comment on above: Order Comment: Speci men Type: BLOOD SPECIMENOrdering Facility: [facility] Address: [address] [place] [address] Performed By: #### 2 4323-8 ####[facility]ENTERNCLIA [id number] [place] [address] [place] Creatinine and Glomerular filtration rate.predicted panel (S/P/Bld) 45 mL/min/1.73m??? Low >=60 [facility] Comment on above: Order Comment: Speci men Type: BLOOD SPECIMENOrdering Facility: [facility] Address: [address] [place] [address] Result Comment: Fernanda mated Glomerular Filtration Rate (eGFR) is calculated using the 2020 CKD-EPI creatinine equation. This equation utilizes serum creatinine, sex, and age as parameters. The creatinine assay has traceable calibration to isotope dilution-mass spectrometry. Refer to KDIGO guidelines for clinical interpretation. In patients with unstable renal function, e.g. those with acute kidney injury, the eGFR may not accurately reflect actual GFR. Performed By: #### 2 4323-8 ####[facility] [id number] [place] [address] [place] Glucose [Mass/Vol] 119 mg/dL High 74-99 [facility] Comment on above: Order Comment: Riaz hernández Type: BLOOD SPECIMENOrdering Facility: [facility] Address: [address] [place] [address] Result Comment: The [place] Diabetes Association (ADA) provides guidance for cutoff values for fasting glucose and random glucose. The ADA defines fasting as no caloric intake for at least 8 hours. Fasting plasma glucose results between 100 to 125 mg/dL indicate increased risk for diabetes (prediabetes).Fasting plasma glucose results greater than or equal to 126 mg/dL meet the criteria for diagnosis of diabetes. In the absence of unequivocal hyperglycemia, results should be confirmed by repeat testing. In a patient with classic symptoms of hyperglycemia or hyperglycemic crisis, random plasma glucose results greater than or equal to 200 mg/dL meet the criteria for diagnosis of diabetes.Reference: Standards of Medical Care in Diabetes 2016, [place] Diabetes Association. Diabetes Care. 2016.39(Suppl 1). Performed By: #### 2 4323-8 ####[facility] CENTERA [id number] [place] [address] [place] Potassium [Moles/Vol] 4.2 mmol/L Normal 3.7-5.1 [facility] Comment on above: Order Comment: Riaz hernández Type: BLOOD SPECIMENOrdering Facility: [facility] Address: [address] [place] [address] Performed By: #### 2 4323-8 ####[facility] [id number] [place] [address] [place] Protein [Mass/Vol] 6.6 g/dL Normal 6.3-8.0 [facility] Comment on above: Order Comment: Speci men Type: BLOOD SPECIMENOrdering Facility: [facility] Address: [address] [place] [address] Performed By: #### 2 4323-8 ####[facility] [id number] [place] [address] [place] Sodium [Moles/Vol] 139 mmol/L Normal 136-144 [facility] Comment on above: Order Comment: Speci men Type: BLOOD SPECIMENOrdering Facility: [facility] Address: [address] [place] [address] Performed By: #### 2 4323-8 ####[facility]ENTERNCM[facility] [id number] [place] [address] [place] Urea nitrogen [Mass/Vol] 30 mg/dL High 7-21 [facility] Comment on above: Order Comment: Speci men Type: BLOOD SPECIMENOrdering Facility: [facility] Address: [address] [place] [address] Performed By: #### 2 4323-8 ####[facility] CENTERNCLIA [id number] [place] [address] [place] SCRN MAMM (CAD)W/ADELINA BILATo n 06-26-2024 SCRN MAMM (CAD)W/ADELINA BILAT [facility] [address] [id number] SCRN MAMM (CAD)W/ADELINA BILAT MR#: [id number] Acct: [id number] Name: GASPER REED Rep #: [id number] : 1950 F 73 From: Medhat evans MD PCP: Dr. Emily Casanova, DO Status: REG CLI Study: SCRN MAMM (CAD)W/ADELINA BILAT Date of Exam: 10/15 Exam# [id number] Ordering Dr: Nikki Persaud FABRICATION LEAD-C [id number] MAMMOGRAPHY - BILATERAL SCREENING REASON FOR EXAM: Female, 73 years old. Routine annual screening examination. PERTINENT HISTORY: Grandmother with breast cancer. Personal history of ovarian carcinoma. Aunt with breast cancer. TECHNIQUE: Digital bilateral breast adelina (3D mammographic acquisition) in the CC and MLO projections. 2-D mediolateral oblique (MLO) and craniocaudad (CC) views of both breasts were obtained. CAD: Full Field Digital Mammography with Computer Added Detection was performed. COMPARISON: Comparison is made with prior study number 13/03/2023 and May 25, 2022. FINDINGS: Breast Composition: The breasts are heterogeneously dense, which may obscure small masses. There are no dominant masses or suspicious calcifications. A port is seen in the right axilla. No other significant abnormalities are identified. There has been no significant change since the prior study. BI/SCRN MAMM (CAD)W/ADELINA BILAT IMPRESSION: Stable bilateral screening mammogram. Yearly follow-up mammogram recommended. (A) ASSESSMENT CATEGORY: BIRADS Category 2: Benign. A letter regarding these results will be sent to the patient by the facility within 30 days. Approximately 10% of breast cancers are not detected by mammography. A normal mammogram should not delay biopsy of a clinically suspicious abnormality. [id number] Electronically Signed: Medhat Davidson MD at 10:37 EST , CC: YULIYA Persaud; Dr. Emily Casanova, Electro Mechanical Engineer: Signed Normal [facility] CBC W Auto Differential pane l (Bld)on 06-15-2024 Basophils (Bld) [#/Vol] 0.03 10*3/uL [facility] Basophils/100 WBC (Bld) 0.7 % [facility] Differential cell count method Nom (Bld) Auto [facility] Eosinophils (Bld) [#/Vol] 0.09 10*3/uL [facility] Eosinophils/100 WBC (Bld) 2.2 % [facility] Erythrocyte distribution width (RBC) [Ratio] 16.2 % High 11.5 - 15.0 % [facility] Hematocrit (Bld) [Volume fraction] 29.1 % Low 36.0 - 46.0 % [facility] Hemoglobin (Bld) [Mass/Vol] 9.9 g/dL Low 11.5 - 15.5 g/dL [facility] Immature granulocytes (Bld) [#/Vol] [facility] Immature granulocytes/100 WBC (Bld) 0.5 % [facility] Interpretation and review of laboratory results Abnormal [facility] Lymphocytes (Bld) [#/Vol] 1.25 10*3/uL [facility] Lymphocytes/100 WBC (Bld) 29.9 % [facility] MCH (RBC) [Entitic mass] 35.6 pg High 26.0 - 34.0 pg [facility] MCHC (RBC) [Mass/Vol] 34.0 g/dL 30.5 - 36.0 g/dL [facility] MCV (RBC) [Entitic vol] 104.7 fL High 80.0 - 100.0 fL [facility] Monocytes (Bld) [#/Vol] 0.30 10*3/uL [facility] Monocytes/100 WBC (Bld) 7.2 % [facility] Neutrophils (Bld) [#/Vol] 2.49 10*3/uL [facility] Neutrophils/100 WBC (Bld) 59.5 % [facility] Nucleated RBC (Bld) [#/Vol] [facility] Nucleated RBC/100 WBC (Bld) [Ratio] 0.0 % /100 WBC [facility] Platelet mean volume (Bld) [Entitic vol] 11.2 fL 9.0 - 12.7 fL [facility] Platelets (Bld) [#/Vol] 122 10*3/uL Low [facility] RBC (Bld) [#/Vol] 2.78 10*6/uL Low 3.90 - 5.2 0 m/uL [facility] WBC (Bld) [#/Vol] 4.18 10*3/uL [facility] Basophils (Bld) [#/Vol] 0.03 10*3/uL Normal <0.11 [facility] Comment on above: Order Comment: Speci men Type: BLOOD SPECIMENOrdering Facility: [facility] Address: [address] [place] [address] Performed By: #### 5 7021-8 ####[facility]ENTERA [id number] [place] [address] [place] Basophils/100 WBC (Bld) 0.7 % Normal [facility] Comment on above: Order Comment: Speci men Type: BLOOD SPECIMENOrdering Facility: [facility] Address: [address] [place] [address] Performed By: #### 5 7021-8 ####[facility]A [id number] [place] [address] [place] Differential cell count method Nom (Bld) Auto Normal [facility] Comment on above: Order Comment: Speci men Type: BLOOD SPECIMENOrdering Facility: [facility] Address: [address] [place] [address] Performed By: #### 5 7021-8 ####[facility] HOSPITALLIA [id number] [place] [address] [place] Eosinophils (Bld) [#/Vol] 0.09 10*3/uL Normal <0.46 [facility] Comment on above: Order Comment: Speci men Type: BLOOD SPECIMENOrdering Facility: [facility] Address: [address] [place] [address] Performed By: #### 5 7021-8 ####[facility] MILLWNCLIA [id number] [place] [address] [place] Eosinophils/100 WBC (Bld) 2.2 % Normal [facility] Comment on above: Order Comment: Speci men Type: BLOOD SPECIMENOrdering Facility: [facility] Address: [address] [place] [address] Performed By: #### 5 7021-8 ####[facility] CENTERBANGLIA [id number] [place] [address] [place] Erythrocyte distribution width (RBC) [Ratio] 16.2 % High 11.5-15.0 [facility] Comment on above: Order Comment: Speci men Type: BLOOD SPECIMENOrdering Facility: [facility] Address: [address] [place] [address] Performed By: #### 5 7021-8 ####[facility] CENTERBANGLIA [id number] [place] [address] [place] Hematocrit (Bld) [Volume fraction] 29.1 % Low 36.0-46.0 [facility] Comment on above: Order Comment: Speci men Type: BLOOD SPECIMENOrdering Facility: [facility] Address: [address] [place] [address] Performed By: #### 5 7021-8 ####[facility] CENTERBANGLIA [id number] [place] [address] [place] Hemoglobin (Bld) [Mass/Vol] 9.9 g/dL Low 11.5-15.5 [facility] Comment on above: Order Comment: Speci men Type: BLOOD SPECIMENOrdering Facility: [facility] Address: [address] [place] [address] Performed By: #### 5 7021-8 ####[facility] CENTERNCLIA [id number] [place] [id number] [place] Immature granulocytes (Bld) [#/Vol] 10*3/uL Normal <0.10 [facility] Comment on above: Order Comment: Speci men Type: BLOOD SPECIMENOrdering Facility: [facility] Address: [address] [place] [address] Performed By: #### 5 7021-8 ####[facility]ENTERNCMOUNT[facility] [id number] [place] [address] [place] Immature granulocytes/100 WBC (Bld) 0.5 % Normal [facility] Comment on above: Order Comment: Speci men Type: BLOOD SPECIMENOrdering Facility: [facility] Address: [address] [place] [address] Performed By: #### 5 7021-8 ####[facility]ERNCMOUNT[facility] [id number] [place] [address] [place] Lymphocytes (Bld) [#/Vol] 1.25 10*3/uL Normal 1.00-4.00 [facility] Comment on above: Order Comment: Speci men Type: BLOOD SPECIMENOrdering Facility: [facility] Address: [address] [place] [address] Performed By: #### 5 7021-8 ####[facility] [id number] [place] [address] [place] Lymphocytes/100 WBC (Bld) 29.9 % Normal [facility] Comment on above: Order Comment: Speci men Type: BLOOD SPECIMENOrdering Facility: [facility] Address: [address] [place] [address] Performed By: #### 5 7021-8 ####[facility]ENTERNCA [id number] [place] [address] [place] MCH (RBC) [Entitic mass] 35.6 pg High 26.0-34.0 [facility] Comment on above: Order Comment: Speci men Type: BLOOD SPECIMENOrdering Facility: [facility] Address: [address] [place] [address] Performed By: #### 5 7021-8 ####[facility] DWAINEBANGJASE [id number] [place] [address] [place] MCHC (RBC) [Mass/Vol] 34.0 g/dL Normal 30.5-36.0 [facility] Comment on above: Order Comment: Speci men Type: BLOOD SPECIMENOrdering Facility: [facility] Address: [address] [place] [address] Performed By: #### 5 7021-8 ####[facility] CENTERYANIRA [id number] [place] [address] [place] MCV (RBC) [Entitic vol] 104.7 fL High 80.0-100.0 [facility] Comment on above: Order Comment: Speci men Type: BLOOD SPECIMENOrdering Facility: [facility] Address: [address] [place] [address] Performed By: #### 5 7021-8 ####[facility] CENTERYANIRA [id number] [place] [address] [place] Monocytes (Bld) [#/Vol] 0.30 10*3/uL Normal <0.87 [facility] Comment on above: Order Comment: Speci men Type: BLOOD SPECIMENOrdering Facility: [facility] Address: [address] [place] [address] Performed By: #### 5 7021-8 ####[facility] CENTERYANIRA [id number] [place] [address] [place] Monocytes/100 WBC (Bld) 7.2 % Normal [facility] Comment on above: Order Comment: Speci men Type: BLOOD SPECIMENOrdering Facility: [facility] Address: [address] [place] [address] Performed By: #### 5 7021-8 ####[facility] MILLTOWNCLIA [id number] [place] [address] [place] Neutrophils (Bld) [#/Vol] 2.49 10*3/uL Normal 1.45-7.50 [facility] Comment on above: Order Comment: Speci men Type: BLOOD SPECIMENOrdering Facility: [facility] Address: [address] [place] [address] Performed By: #### 5 7021-8 ####[facility] NOR[facility] NAPLESWFLLIA [id number] [place] [address] [place] Neutrophils/100 WBC (Bld) 59.5 % Normal [facility] Comment on above: Order Comment: Speci men Type: BLOOD SPECIMENOrdering Facility: [facility] Address: [address] [place] [address] Performed By: #### 5 7021-8 ####[facility]PITALLIA [id number] [place] [address] [place] Nucleated RBC (Bld) [#/Vol] 10*3/uL Normal <0.01 [facility] Comment on above: Order Comment: Speci men Type: BLOOD SPECIMENOrdering Facility: [facility] Address: [address] [place] [address] Performed By: #### 5 7021-8 ####[facility]ALL[facility] [id number] [place] [address] [place] Nucleated RBC/100 WBC (Bld) [Ratio] 0.0 /100 WBC Normal [facility] Comment on above: Order Comment: Speci men Type: BLOOD SPECIMENOrdering Facility: [facility] Address: [address] [place] [address] Performed By: #### 5 7021-8 ####[facility] CENTERNCLIA [id number] [place] [address] [place] Platelet mean volume (Bld) [Entitic vol] 11.2 fL Normal 9.0-12.7 [facility] Comment on above: Order Comment: Speci men Type: BLOOD SPECIMENOrdering Facility: [facility] Address: [address] [place] [address] Performed By: #### 5 7021-8 ####[facility]ENTERNCLIA [id number] [place] [address] [place] Platelets (Bld) [#/Vol] 122 10*3/uL Low 150-400 [facility] Comment on above: Order Comment: Speci men Type: BLOOD SPECIMENOrdering Facility: [facility] Address: [address] [place] [address] Performed By: #### 5 7021-8 ####[facility]ENTERNCA [id number] [place] [address] [place] RBC (Bld) [#/Vol] 2.78 10*6/uL Low 3.90-5.20 [facility] Comment on above: Order Comment: Speci men Type: BLOOD SPECIMENOrdering Facility: [facility] Address: [address] [place] [address] Performed By: #### 5 7021-8 ####[facility] CENTERNCLIA [id number] [place] [address] [place] WBC (Bld) [#/Vol] 4.18 10*3/uL Normal 3.70-11.00 [facility] Comment on above: Order Comment: Speci men Type: BLOOD SPECIMENOrdering Facility: [facility] Address: [address] [place] [address] Performed By: #### 5 7021-8 ####[facility] CENTERNCLIA [id number] [place] [address] [place] Cancer Ag125 SerPl-aCncon Cancer Ag 125 Qn 27 [arb'U]/mL Normal <39 [facility] Comment on above: Order Comment: Speci men Type: BLOOD SPECIMENOrdering Facility: [facility] Address: [address] [place] [address] Result Comment: CA 1 25 test methodology used is the Electrochemiluminescence Immunoassay by [employer]. Results obtained with different methods or kits cannot be used interchangeably.The reference interval is based on the 95th percentile of 240 apparently healthy premenopausal and postmenopausal women. At a cutoff value of 65 U/mL, the test sensitivity to distinguish ovarian carcinoma (FIGO stage I to IV) versus benign gynecological disease is 79%, with a specificity of 82%.Reference: Cancer Antigen 125 (CA 125 II) [package insert V 1.0 Nigerien]. [employer], [place], [place] (April 2015) Performed By: #### 1 0334-1 ####[facility] LABCLIA [id number] [address] OF [facility] Comprehensive metabolic 2000 panelOrdered By: Sophia Hall on 06-15-2024 Albumin [Mass/Vol] 4.5 g/dL 3.9 - 4.9 g/dL [facility] ALP [Catalytic activity/Vol] 110 U/L 34 - 123 U/L [facility] ALT [Catalytic activity/Vol] 17 U/L 7 - 38 U/L [facility] Anion gap [Moles/Vol] 14 mmol/L 8 - 15 mmol/L [facility] AST [Catalytic activity/Vol] 26 U/L 13 - 35 U/L [facility] Bilirubin [Mass/Vol] 0.7 mg/dL 0.2 - 1 .3 mg/dL [facility] Calcium [Mass/Vol] 9.9 mg/dL 8.5 - 10. 2 mg/dL [facility] Chloride [Moles/Vol] 100 mmol/L 98 - 10 7 mmol/L [facility] CO2 [Moles/Vol] 24 mmol/L 22 - 30 mmol/L [facility] Creatinine [Mass/Vol] 1.41 mg/dL High 0.58 - 0.96 mg/dL [facility] GFR/1.73 sq M.predicted among non-blacks MDRD (S/P/Bld) [Vol rate/Area] 39 mL/min/{1.73_m2} Low - PINF [facility] Comment on above: Estimated Glomerular Filtration Rate (eGFR) is calculated using the 202 CKD-EPI creatinine equation. This equation utilizes serum creatinine, sex, and age as parameters. The creatinine assay has traceable calibration to isotope dilution-mass spectrometry. Refer to KDIGO guidelines for clinical interpretation. In patients with unstable renal function, e.g. those with acute kidney injury, the eGFR may not accurately reflect actual GFR. Glucose [Mass/Vol] 125 mg/dL High 74 - 99 mg/dL [facility] Comment on above: The [place] Diab[employer] s Association (ADA) provides guidance for cutoff values for fasting glucose and random glucose. The ADA defines fasting as no caloric intake for at least 8 hours. Fasting plasma glucose results between 100 to 125 mg/dL indicate increased risk for diabetes (prediabetes). Fasting plasma glucose results greater than or equal to 126 mg/dL meet the criteria for diagnosis of diabetes. In the absence of unequivocal hyperglycemia, results should be confirmed by repeat testing. In a patient with classic symptoms of hyperglycemia or hyperglycemic crisis, random plasma glucose results greater than or equal to 200 mg/dL meet the criteria for diagnosis of diabetes. Reference: Standards of Medical Care in Diabetes 2016, [place] Diabetes Association. Diabetes Care. 2016.39(Suppl 1). Interpretation and review of laboratory results Abnormal [facility] Potassium [Moles/Vol] 4.1 mmol/L 3.7 - 5.1 mmol/L [facility] Protein [Mass/Vol] 6.9 g/dL 6.3 - 8.0 g/dL [facility] Sodium [Moles/Vol] 138 mmol/L 136 - 144 mmol/L [facility] Urea nitrogen [Mass/Vol] 45 mg/dL High 7 - 21 mg/dL [facility] Comprehensive metabolic 2000 panelon 06-15-2024 Albumin [Mass/Vol] 4.5 g/dL Normal 3.9-4.9 [facility] Comment on above: Order Comment: Speci men Type: BLOOD SPECIMENOrdering Facility: [facility] Address: [address] [place] [address] Performed By: #### 2 4323-8 ####[facility] YADI [facility] INDIANAJASE [id number] [place] [address] [place] ALP [Catalytic activity/Vol] 110 U/L Normal 34-123 [facility] Comment on above: Order Comment: Speci men Type: BLOOD SPECIMENOrdering Facility: [facility] Address: [address] [place] [address] Performed By: #### 2 4323-8 ####[facility] CENTERNCLIA [id number] [place] [address] [place] ALT [Catalytic activity/Vol] 17 U/L Normal 7-38 [facility] Comment on above: Order Comment: Speci men Type: BLOOD SPECIMENOrdering Facility: [facility] Address: [address] [place] [address] Performed By: #### 2 4323-8 ####[facility] [id number] [place] [address] [place] Anion gap [Moles/Vol] 14 mmol/L Normal 8-15 [facility] Comment on above: Order Comment: Speci men Type: BLOOD SPECIMENOrdering Facility: [facility] Address: [address] [place] [address] Performed By: #### 2 4323-8 ####[facility] [id number] [place] [address] [place] AST [Catalytic activity/Vol] 26 U/L Normal 13-35 [facility] Comment on above: Order Comment: Speci men Type: BLOOD SPECIMENOrdering Facility: [facility] Address: [address] [place] [address] Performed By: #### 2 4323-8 ####[facility] [id number] [place] [address] [place] Bilirubin [Mass/Vol] 0.7 mg/dL Normal 0.2-1.3 [facility] Comment on above: Order Comment: Speci men Type: BLOOD SPECIMENOrdering Facility: [facility] Address: [address] [place] [address] Performed By: #### 2 4323-8 ####[facility] YADI MILLTOWNCLIA [id number] [place] [address] [place] Calcium [Mass/Vol] 9.9 mg/dL Normal 8.5-10.2 [facility] Comment on above: Order Comment: Speci men Type: BLOOD SPECIMENOrdering Facility: [facility] Address: [address] [place] [address] Performed By: #### 2 4323-8 ####[facility] MILLTOWNCLIA [id number] [place] [address] [place] Chloride [Moles/Vol] 100 mmol/L Normal 98-107 [facility] Comment on above: Order Comment: Speci men Type: BLOOD SPECIMENOrdering Facility: [facility] Address: [address] [place] [address] Performed By: #### 2 4323-8 ####[facility] MILLWNCLIA [id number] [place] [address] [place] CO2 [Moles/Vol] 24 mmol/L Normal 22-30 [facility] Comment on above: Order Comment: Speci men Type: BLOOD SPECIMENOrdering Facility: [facility] Address: [address] [place] [address] Performed By: #### 2 4323-8 ####[facility] MILLTOWNCLIA [id number] [place] [address] [place] Creatinine [Mass/Vol] 1.41 mg/dL High 0.58-0.96 [facility] Comment on above: Order Comment: Speci men Type: BLOOD SPECIMENOrdering Facility: [facility] Address: [address] [place] [address] Performed By: #### 2 4323-8 ####[facility] MILLTOWNCLIA [id number] [place] [address] [place] Creatinine and Glomerular filtration rate.predicted panel (S/P/Bld) 39 mL/min/1.73m??? Low >=60 [facility] Comment on above: Order Comment: Riaz hernández Type: BLOOD SPECIMENOrdering Facility: [facility] Address: [address] [place] [address] Result Comment: Fernanda mated Glomerular Filtration Rate (eGFR) is calculated using the 2020 CKD-EPI creatinine equation. This equation utilizes serum creatinine, sex, and age as parameters. The creatinine assay has traceable calibration to isotope dilution-mass spectrometry. Refer to KDIGO guidelines for clinical interpretation. In patients with unstable renal function, e.g. those with acute kidney injury, the eGFR may not accurately reflect actual GFR. Performed By: #### 2 4323-8 ####[facility] [id number] [place] [address] [place] Glucose [Mass/Vol] 125 mg/dL High 74-99 [facility] Comment on above: Order Comment: Riaz hernández Type: BLOOD SPECIMENOrdering Facility: [facility] Address: [address] [place] [address] Result Comment: The [place] Diabetes Association (ADA) provides guidance for cutoff values for fasting glucose and random glucose. The ADA defines fasting as no caloric intake for at least 8 hours. Fasting plasma glucose results between 100 to 125 mg/dL indicate increased risk for diabetes (prediabetes).Fasting plasma glucose results greater than or equal to 126 mg/dL meet the criteria for diagnosis of diabetes. In the absence of unequivocal hyperglycemia, results should be confirmed by repeat testing. In a patient with classic symptoms of hyperglycemia or hyperglycemic crisis, random plasma glucose results greater than or equal to 200 mg/dL meet the criteria for diagnosis of diabetes.Reference: Standards of Medical Care in Diabetes 2016, [place] Diabetes Association. Diabetes Care. 2016.39(Suppl 1). Performed By: #### 2 4323-8 ####[facility] [id number] [place] [address] [place] Potassium [Moles/Vol] 4.1 mmol/L Normal 3.7-5.1 [facility] Comment on above: Order Comment: Speci men Type: BLOOD SPECIMENOrdering Facility: [facility] Address: [address] [place] [address] Performed By: #### 2 4323-8 ####[facility]ENTERNCM[facility] [id number] [place] [address] [place] Protein [Mass/Vol] 6.9 g/dL Normal 6.3-8.0 [facility] Comment on above: Order Comment: Speci men Type: BLOOD SPECIMENOrdering Facility: [facility] Address: [address] [place] [address] Performed By: #### 2 4323-8 ####[facility]ENTERNCMOUNT[facility] [id number] [place] [address] [place] Sodium [Moles/Vol] 138 mmol/L Normal 136-144 [facility] Comment on above: Order Comment: Speci men Type: BLOOD SPECIMENOrdering Facility: [facility] Address: [address] [place] [address] Performed By: #### 2 4323-8 ####[facility] [id number] [place] [address] [place] Urea nitrogen [Mass/Vol] 45 mg/dL High 7-21 [facility] Comment on above: Order Comment: Speci men Type: BLOOD SPECIMENOrdering Facility: [facility] Address: [address] [place] [address] Performed By: #### 2 4323-8 ####[facility] [id number] [place] [address] [place] CBC W Auto Differential pane l (Bld)on 06-01-2024 Basophils (Bld) [#/Vol] 0.03 10*3/uL [facility] Basophils/100 WBC (Bld) 0.6 % [facility] Differential cell count method Nom (Bld) Auto [facility] Eosinophils (Bld) [#/Vol] 0.11 10*3/uL [facility] Eosinophils/100 WBC (Bld) 2.2 % [facility] Erythrocyte distribution width (RBC) [Ratio] 15.5 % High 11.5 - 15.0 % [facility] Hematocrit (Bld) [Volume fraction] 27.9 % Low 36.0 - 46.0 % [facility] Hemoglobin (Bld) [Mass/Vol] 9.5 g/dL Low 11.5 - 15.5 g/dL [facility] Immature granulocytes (Bld) [#/Vol] [facility] Immature granulocytes/100 WBC (Bld) 0.4 % [facility] Interpretation and review of laboratory results Abnormal [facility] Lymphocytes (Bld) [#/Vol] 1.30 10*3/uL [facility] Lymphocytes/100 WBC (Bld) 25.6 % [facility] MCH (RBC) [Entitic mass] 35.7 pg High 26.0 - 34.0 pg [facility] MCHC (RBC) [Mass/Vol] 34.1 g/dL 30.5 - 36.0 g/dL [facility] MCV (RBC) [Entitic vol] 104.9 fL High 80.0 - 100.0 fL [facility] Monocytes (Bld) [#/Vol] 0.44 10*3/uL [facility] Monocytes/100 WBC (Bld) 8.7 % [facility] Neutrophils (Bld) [#/Vol] 3.18 10*3/uL [facility] Neutrophils/100 WBC (Bld) 62.5 % [facility] Nucleated RBC (Bld) [#/Vol] [facility] Nucleated RBC/100 WBC (Bld) [Ratio] 0.0 % /100 WBC [facility] Platelet mean volume (Bld) [Entitic vol] 9.8 fL 9.0 - 12.7 fL [facility] Platelets (Bld) [#/Vol] 128 10*3/uL Low [facility] RBC (Bld) [#/Vol] 2.66 10*6/uL Low 3.90 - 5.2 0 m/uL [facility] WBC (Bld) [#/Vol] 5.08 10*3/uL [facility] Basophils (Bld) [#/Vol] 0.03 10*3/uL Normal <0.11 [facility] Comment on above: Order Comment: Speci men Type: BLOOD SPECIMENOrdering Facility: [facility] Address: [address] [place] [address] Performed By: #### 5 7021-8 ####[facility] MILLWNCLIA [id number] [place] [address] [place] Basophils/100 WBC (Bld) 0.6 % Normal [facility] Comment on above: Order Comment: Speci men Type: BLOOD SPECIMENOrdering Facility: [facility] Address: [address] [place] [address] Performed By: #### 5 7021-8 ####[facility] CENTERA [id number] [place] [address] [place] Differential cell count method Nom (Bld) Auto Normal [facility] Comment on above: Order Comment: Speci men Type: BLOOD SPECIMENOrdering Facility: [facility] Address: [address] [place] [address] Performed By: #### 5 7021-8 ####[facility]PITALLIA [id number] [place] [address] [place] Eosinophils (Bld) [#/Vol] 0.11 10*3/uL Normal <0.46 [facility] Comment on above: Order Comment: Speci men Type: BLOOD SPECIMENOrdering Facility: [facility] Address: [address] [place] [address] Performed By: #### 5 7021-8 ####[facility]ITALL[facility] [id number] [place] [address] [place] Eosinophils/100 WBC (Bld) 2.2 % Normal [facility] Comment on above: Order Comment: Speci men Type: BLOOD SPECIMENOrdering Facility: [facility] Address: [address] [place] [address] Performed By: #### 5 7021-8 ####[facility] JARONSTARKVILLEYANIRA [id number] [place] [address] [place] Erythrocyte distribution width (RBC) [Ratio] 15.5 % High 11.5-15.0 [facility] Comment on above: Order Comment: Speci men Type: BLOOD SPECIMENOrdering Facility: [facility] Address: [address] [place] [address] Performed By: #### 5 7021-8 ####[facility]ERNCM[facility] [id number] [place] [address] [place] Hematocrit (Bld) [Volume fraction] 27.9 % Low 36.0-46.0 [facility] Comment on above: Order Comment: Speci men Type: BLOOD SPECIMENOrdering Facility: [facility] Address: [address] [place] [address] Performed By: #### 5 7021-8 ####[facility] CENTERA [id number] [place] [address] [place] Hemoglobin (Bld) [Mass/Vol] 9.5 g/dL Low 11.5-15.5 [facility] Comment on above: Order Comment: Speci men Type: BLOOD SPECIMENOrdering Facility: [facility] Address: [address] [place] [address] Performed By: #### 5 7021-8 ####[facility]ENTERNCLIA [id number] [place] [address] [place] Immature granulocytes (Bld) [#/Vol] 10*3/uL Normal <0.10 [facility] Comment on above: Order Comment: Speci men Type: BLOOD SPECIMENOrdering Facility: [facility] Address: [address] [place] [address] Performed By: #### 5 7021-8 ####[facility]UTECAROLINAA [id number] [place] [address] [place] Immature granulocytes/100 WBC (Bld) 0.4 % Normal [facility] Comment on above: Order Comment: Speci men Type: BLOOD SPECIMENOrdering Facility: [facility] Address: [address] [place] [address] Performed By: #### 5 7021-8 ####[facility] CENTERBANGDarryl [id number] [place] [address] [place] Lymphocytes (Bld) [#/Vol] 1.30 10*3/uL Normal 1.00-4.00 [facility] Comment on above: Order Comment: Speci men Type: BLOOD SPECIMENOrdering Facility: [facility] Address: [address] [place] [address] Performed By: #### 5 7021-8 ####[facility] [id number] [place] [address] [place] Lymphocytes/100 WBC (Bld) 25.6 % Normal [facility] Comment on above: Order Comment: Speci men Type: BLOOD SPECIMENOrdering Facility: [facility] Address: [address] [place] [address] Performed By: #### 5 7021-8 ####[facility] HOSPITALNICOLETTEA [id number] [place] [address] [place] MCH (RBC) [Entitic mass] 35.7 pg High 26.0-34.0 [facility] Comment on above: Order Comment: Speci men Type: BLOOD SPECIMENOrdering Facility: [facility] Address: [address] [place] [address] Performed By: #### 5 7021-8 ####[facility] CENTERNCLIA [id number] [place] [address] [place] MCHC (RBC) [Mass/Vol] 34.1 g/dL Normal 30.5-36.0 [facility] Comment on above: Order Comment: Speci men Type: BLOOD SPECIMENOrdering Facility: [facility] Address: [address] [place] [address] Performed By: #### 5 7021-8 ####[facility] CENTERNCLI [id number] [place] [address] [place] MCV (RBC) [Entitic vol] 104.9 fL High 80.0-100.0 [facility] Comment on above: Order Comment: Speci men Type: BLOOD SPECIMENOrdering Facility: [facility] Address: [address] [place] [address] Performed By: #### 5 7021-8 ####[facility]ERNCM[facility] [id number] [place] [address] [place] Monocytes (Bld) [#/Vol] 0.44 10*3/uL Normal <0.87 [facility] Comment on above: Order Comment: Speci men Type: BLOOD SPECIMENOrdering Facility: [facility] Address: [address] [place] [address] Performed By: #### 5 7021-8 ####[facility]ENTERNCLI [id number] [place] [address] [place] Monocytes/100 WBC (Bld) 8.7 % Normal [facility] Comment on above: Order Comment: Speci men Type: BLOOD SPECIMENOrdering Facility: [facility] Address: [address] [place] [address] Performed By: #### 5 7021-8 ####[facility] [facility] [id number] [place] [address] [place] Neutrophils (Bld) [#/Vol] 3.18 10*3/uL Normal 1.45-7.50 [facility] Comment on above: Order Comment: Speci men Type: BLOOD SPECIMENOrdering Facility: [facility] Address: [address] [place] [address] Performed By: #### 5 7021-8 ####[facility] MILLWNCLIA [id number] [place] [address] [place] Neutrophils/100 WBC (Bld) 62.5 % Normal [facility] Comment on above: Order Comment: Speci men Type: BLOOD SPECIMENOrdering Facility: [facility] Address: [address] [place] [address] Performed By: #### 5 7021-8 ####[facility]ITALL[facility] [id number] [place] [address] [place] Nucleated RBC (Bld) [#/Vol] 10*3/uL Normal <0.01 [facility] Comment on above: Order Comment: Speci men Type: BLOOD SPECIMENOrdering Facility: [facility] Address: [address] [place] [address] Performed By: #### 5 7021-8 ####[facility]ITALL[facility] [id number] [place] [address] [place] Nucleated RBC/100 WBC (Bld) [Ratio] 0.0 /100 WBC Normal [facility] Comment on above: Order Comment: Speci men Type: BLOOD SPECIMENOrdering Facility: [facility] Address: [address] [place] [address] Performed By: #### 5 7021-8 ####[facility]LESWNCLIA [id number] [place] [address] [place] Platelet mean volume (Bld) [Entitic vol] 9.8 fL Normal 9.0-12.7 [facility] Comment on above: Order Comment: Speci men Type: BLOOD SPECIMENOrdering Facility: [facility] Address: [address] [place] [address] Performed By: #### 5 7021-8 ####[facility]ENTERNCLIA [id number] [place] [address] [place] Platelets (Bld) [#/Vol] 128 10*3/uL Low 150-400 [facility] Comment on above: Order Comment: Speci men Type: BLOOD SPECIMENOrdering Facility: [facility] Address: [address] [place] [address] Performed By: #### 5 7021-8 ####[facility] [id number] [place] [address] [place] RBC (Bld) [#/Vol] 2.66 10*6/uL Low 3.90-5.20 [facility] Comment on above: Order Comment: Speci men Type: BLOOD SPECIMENOrdering Facility: [facility] Address: [address] [place] [address] Performed By: #### 5 7021-8 ####[facility] [id number] [place] [address] [place] WBC (Bld) [#/Vol] 5.08 10*3/uL Normal 3.70-11.00 [facility] Comment on above: Order Comment: Speci men Type: BLOOD SPECIMENOrdering Facility: [facility] Address: [address] [place] [address] Performed By: #### 5 7021-8 ####[facility] [id number] [place] [address] [place] Cancer Ag125 SerPl-aCncon Cancer Ag 125 Qn 35 [arb'U]/mL Normal <39 [facility] Comment on above: Order Comment: Speci men Type: BLOOD SPECIMENOrdering Facility: [facility] Address: [address] [place] [address] Result Comment: CA 1 25 test methodology used is the Electrochemiluminescence Immunoassay by [employer]. Results obtained with different methods or kits cannot be used interchangeably.The reference interval is based on the 95th percentile of 240 apparently healthy premenopausal and postmenopausal women. At a cutoff value of 65 U/mL, the test sensitivity to distinguish ovarian carcinoma (FIGO stage I to IV) versus benign gynecological disease is 79%, with a specificity of 82%.Reference: Cancer Antigen 125 (CA 125 II) [package insert V 1.0 Nigerien]. [employer], [place], [place] (April 2015) Performed By: #### 1 0334-1 ####[facility] LABCLIA [id number] [place] [address] [place] [facility] [place] Comprehensive metabolic 2000 panelOrdered By: Yani Jones on 06-01-2024 Albumin [Mass/Vol] 4.3 g/dL 3.9 - 4.9 g/dL [facility] ALP [Catalytic activity/Vol] 147 U/L High 34 - 123 U/L [facility] ALT [Catalytic activity/Vol] 17 U/L 7 - 38 U/L [facility] Anion gap [Moles/Vol] 13 mmol/L 8 - 15 mmol/L [facility] AST [Catalytic activity/Vol] 25 U/L 13 - 35 U/L [facility] Bilirubin [Mass/Vol] 0.6 mg/dL 0.2 - 1 .3 mg/dL [facility] Calcium [Mass/Vol] 9.9 mg/dL 8.5 - 10. 2 mg/dL [facility] Chloride [Moles/Vol] 102 mmol/L 98 - 10 7 mmol/L [facility] CO2 [Moles/Vol] 24 mmol/L 22 - 30 mmol/L [facility] Creatinine [Mass/Vol] 1.30 mg/dL High 0.58 - 0.96 mg/dL [facility] GFR/1.73 sq M.predicted among non-blacks MDRD (S/P/Bld) [Vol rate/Area] 44 mL/min/{1.73_m2} Low - PINF [facility] Comment on above: Estimated Glomerular Filtration Rate (eGFR) is calculated using the 2020 CKD-EPI creatinine equation. This equation utilizes serum creatinine, sex, and age as parameters. The creatinine assay has traceable calibration to isotope dilution-mass spectrometry. Refer to KDIGO guidelines for clinical interpretation. In patients with unstable renal function, e.g. those with acute kidney injury, the eGFR may not accurately reflect actual GFR. Glucose [Mass/Vol] 114 mg/dL High 74 - 99 mg/dL [facility] Comment on above: The [place] Diabete s Association (ADA) provides guidance for cutoff values for fasting glucose and random glucose. The ADA defines fasting as no caloric intake for at least 8 hours. Fasting plasma glucose results between 100 to 125 mg/dL indicate increased risk for diabetes (prediabetes). Fasting plasma glucose results greater than or equal to 126 mg/dL meet the criteria for diagnosis of diabetes. In the absence of unequivocal hyperglycemia, results should be confirmed by repeat testing. In a patient with classic symptoms of hyperglycemia or hyperglycemic crisis, random plasma glucose results greater than or equal to 200 mg/dL meet the criteria for diagnosis of diabetes. Reference: Standards of Medical Care in Diabetes 2016, [place] Diabetes Association. Diabetes Care. 2016.39(Suppl 1). Interpretation and review of laboratory results Abnormal [facility] Potassium [Moles/Vol] 4.1 mmol/L 3.7 - 5.1 mmol/L [facility] Protein [Mass/Vol] 6.7 g/dL 6.3 - 8.0 g/dL [facility] Sodium [Moles/Vol] 139 mmol/L 136 - 144 mmol/L [facility] Urea nitrogen [Mass/Vol] 36 mg/dL High 7 - 21 mg/dL [facility] Comprehensive metabolic 2000 panelon 06-01-2024 Albumin [Mass/Vol] 4.3 g/dL Normal 3.9-4.9 [facility] Comment on above: Order Comment: Speci betty Type: BLOOD SPECIMENOrdering Facility: [facility] Address: [address] [place] [address] Performed By: #### 2 4323-8 ####[facility] [id number] [place] [address] [place] ALP [Catalytic activity/Vol] 147 U/L High 34-123 [facility] Comment on above: Order Comment: Speci men Type: BLOOD SPECIMENOrdering Facility: [facility] Address: [address] [place] [address] Performed By: #### 2 4323-8 ####[facility] [id number] [place] [address] [place] ALT [Catalytic activity/Vol] 17 U/L Normal 7-38 [facility] Comment on above: Order Comment: Speci men Type: BLOOD SPECIMENOrdering Facility: [facility] Address: [address] [place] [address] Performed By: #### 2 4323-8 ####[facility] YADI MILLTOWNCLIA [id number] [place] [address] [place] Anion gap [Moles/Vol] 13 mmol/L Normal 8-15 [facility] Comment on above: Order Comment: Speci men Type: BLOOD SPECIMENOrdering Facility: [facility] Address: [address] [place] [address] Performed By: #### 2 4323-8 ####[facility]LESWNCLIA [id number] [place] [address] [place] AST [Catalytic activity/Vol] 25 U/L Normal 13-35 [facility] Comment on above: Order Comment: Speci men Type: BLOOD SPECIMENOrdering Facility: [facility] Address: [address] [place] [address] Performed By: #### 2 4323-8 ####[facility] NAPLESWNCLIA [id number] [place] [address] [place] Bilirubin [Mass/Vol] 0.6 mg/dL Normal 0.2-1.3 [facility] Comment on above: Order Comment: Speci men Type: BLOOD SPECIMENOrdering Facility: [facility] Address: [address] [place] [address] Performed By: #### 2 4323-8 ####[facility] MILLTOWNCLIA [id number] [place] [address] [place] Calcium [Mass/Vol] 9.9 mg/dL Normal 8.5-10.2 [facility] Comment on above: Order Comment: Speci men Type: BLOOD SPECIMENOrdering Facility: [facility] Address: [address] [place] [address] Performed By: #### 2 4323-8 ####[facility] JARONWNCLIA [id number] [place] [address] [place] Chloride [Moles/Vol] 102 mmol/L Normal 98-107 [facility] Comment on above: Order Comment: Speci men Type: BLOOD SPECIMENOrdering Facility: [facility] Address: [address] [place] [address] Performed By: #### 2 4323-8 ####[facility]ENTERNCLIA [id number] [place] [address] [place] CO2 [Moles/Vol] 24 mmol/L Normal 22-30 [facility] Comment on above: Order Comment: Speci men Type: BLOOD SPECIMENOrdering Facility: [facility] Address: [address] [place] [address] Performed By: #### 2 4323-8 ####[facility]ENTERNCLIA [id number] [place] [address] [place] Creatinine [Mass/Vol] 1.30 mg/dL High 0.58-0.96 [facility] Comment on above: Order Comment: Speci men Type: BLOOD SPECIMENOrdering Facility: [facility] Address: [address] [place] [address] Performed By: #### 2 4323-8 ####[facility]ENTERNCLIA [id number] [place] [address] [place] Creatinine and Glomerular filtration rate.predicted panel (S/P/Bld) 44 mL/min/1.73m??? Low >=60 [facility] Comment on above: Order Comment: Speci men Type: BLOOD SPECIMENOrdering Facility: [facility] Address: [address] [place] [address] Result Comment: Fernanda mated Glomerular Filtration Rate (eGFR) is calculated using the 2020 CKD-EPI creatinine equation. This equation utilizes serum creatinine, sex, and age as parameters. The creatinine assay has traceable calibration to isotope dilution-mass spectrometry. Refer to KDIGO guidelines for clinical interpretation. In patients with unstable renal function, e.g. those with acute kidney injury, the eGFR may not accurately reflect actual GFR. Performed By: #### 2 4323-8 ####[facility] [id number] [place] [address] [place] Glucose [Mass/Vol] 114 mg/dL High 74-99 [facility] Comment on above: Order Comment: Riaz hernández Type: BLOOD SPECIMENOrdering Facility: [facility] Address: [address] [place] [address] Result Comment: The [place] Diabetes Association (ADA) provides guidance for cutoff values for fasting glucose and random glucose. The ADA defines fasting as no caloric intake for at least 8 hours. Fasting plasma glucose results between 100 to 125 mg/dL indicate increased risk for diabetes (prediabetes).Fasting plasma glucose results greater than or equal to 126 mg/dL meet the criteria for diagnosis of diabetes. In the absence of unequivocal hyperglycemia, results should be confirmed by repeat testing. In a patient with classic symptoms of hyperglycemia or hyperglycemic crisis, random plasma glucose results greater than or equal to 200 mg/dL meet the criteria for diagnosis of diabetes.Reference: Standards of Medical Care in Diabetes 2016, [place] Diabetes Association. Diabetes Care. 2016.39(Suppl 1). Performed By: #### 2 4323-8 ####[facility] [id number] [place] [address] [place] Potassium [Moles/Vol] 4.1 mmol/L Normal 3.7-5.1 [facility] Comment on above: Order Comment: Riaz hernández Type: BLOOD SPECIMENOrdering Facility: [facility] Address: [address] [place] [address] Performed By: #### 2 4323-8 ####[facility] [id number] [place] [address] [place] Protein [Mass/Vol] 6.7 g/dL Normal 6.3-8.0 [facility] Comment on above: Order Comment: Speci men Type: BLOOD SPECIMENOrdering Facility: [facility] Address: [address] [place] [address] Performed By: #### 2 4323-8 ####[facility]ENTERNCLI [id number] [place] [address] [place] Sodium [Moles/Vol] 139 mmol/L Normal 136-144 [facility] Comment on above: Order Comment: Speci men Type: BLOOD SPECIMENOrdering Facility: [facility] Address: [address] [place] [address] Performed By: #### 2 4323-8 ####[facility]ENTERNCLIA [id number] [address] [place] Urea nitrogen [Mass/Vol] 36 mg/dL High 7-21 [facility] Comment on above: Order Comment: Speci men Type: BLOOD SPECIMENOrdering Facility: [facility] Address: [address] [place] [address] Performed By: #### 2 4323-8 ####[facility]ENTERNCLIA [id number] [address] [place] Sada 05-28-2024 SAM[facility] Telephone ([facility] -- [place]ED ([id number]) 1950 F Date Time Provider Department 05/28/24 ESTUARDO LONG During your visit today, we recorded the following information about you: Estuardo Long RN 05/28/2024 2:11 PM Signed [facility] [employer] ONE MONTH FOLLOW UP PHONE CALL PHONE CALL DATE: 05/28/2024 PHONE CALL TIME: 2:10 PM DATE OF SURGERY: 04/24/2024 PROCEDURE: Colostomy reversal and creation of new loop colostomy FOLLOW UP QUESTIONS: Is your appetite gradually improving? Yes Is your incision healing well? Yes Is your ostomy functioning without issues? Yes Did you have a good experience with your recent hospital stay? Yes Have you completed your follow up visit with your surgeon? Yes Patient states she's feeling well. She has no concerns at this time. Encouraged to call MD for questions/concerns. SIGNATURE: Estuardo Long RN DATE: 05/28/2024 TIME: 2:10 PM CONTACT #:[phone] Allergies As of Date: 05/28/2024 Noted Allergy Reaction ERYTHROMYCIN 02/09/2008 6 - Diarrhea 8 - GI Upset Comments: Abdominal cramping PENICILLINS 02/09/2008 16 - Unknown Date Reviewed: 05/18/2024 Reviewed by: Delicia Han RN - Fully Assessed Reason for Visit: Linen Folder - Hospital Follow Up [7106] Prescriptions as of 05/28/2024 - lisinopril-hydroCHLOROthia zide (ZESTORETIC) 20-12.5 mg per tablet - promethazine (PHENERGAN) 25 mg tablet Take 1 tab by mouth every 4 hours as needed for nausea. - olaparib (LYNPARZA) 100 mg tablet Take 2 tablets (200 mg) by mouth two times a day. - pantoprazole DR (PROTONIX) 40 mg tablet take 1 tablet by mouth every day - ondansetron (ZOFRAN) 8 mg tablet Take 1 tablet by mouth every 8 hours as needed for nausea/vomiting. - acetaminophen (TYLENOL) 500 mg tablet Take 2 tablets by mouth every 6 hours. - vitamin b complex capsule Take 1 capsule by mouth once daily. - oxybutynin ER (DITROPAN XL) 10 mg 24 hr tablet Take 15 mg by mouth once daily. - lidocaine-prilocaine (EMLA) 2.5-2.5 % cream Apply 60 minutes prior to accessing port - calcium carbonate (CALCIUM 600 ORAL) Take 1 tablet by mouth once daily. Problem List As Of Date 05/28/2024 Noted Resolved Chronic hypertension [I10] 07/25/1994 Other chronic allergic conjunctivitis [H10.45] 04/11/2014 Myopia, bilateral [H52.13] 04/11/2014 Regular astigmatism [H52.229] 04/11/2014 Presbyopia [H52.4] 04/11/2014 Vitreous floaters of both eyes [H43.393] 05/27/2015 Long-term use of Plaquenil [Z79.899] 06/08/2016 Combined forms of age-related cataract, bilater*06/20/2018 Ovarian mass [N83.8] 07/10/2023 07/31/2023 Severe protein-calorie malnutrition (HCC) [E43] 07/11/2023 Ovarian cancer on left (HCC) [C56.2] 07/27/2023 Platelets decreased (HCC) [D69.6] 09/16/2023 Preop examination [Z01.818] 10/19/2023 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.*10/19/2023 Rheumatoid arthritis without rheumatoid factor,*02/01/2023 Diagnosed: 10/19/2023 Ovarian cancer, bilateral (HCC) [C56.3] 10/28/2023 Post-operative state [Z98.890] 10/29/2023 FRANK (acute kidney injury) (HCC) [N17.9] 10/29/2023 Attention to colostomy (HCC) [Z43.3] 04/20/2024 Encounter Status:Closed by ESTUARDO LONG on 05/28/24 Normal [facility] CBC W Auto Differential pane l (Bld)on 05-18-2024 Basophils (Bld) [#/Vol] [facility] Basophils/100 WBC (Bld) 0.3 % [facility] Differential cell count method Nom (Bld) Auto [facility] Eosinophils (Bld) [#/Vol] 0.14 10*3/uL [facility] Eosinophils/100 WBC (Bld) 4.1 % [facility] Erythrocyte distribution width (RBC) [Ratio] 14.7 % 11.5 - 15.0 % [facility] Hematocrit (Bld) [Volume fraction] 27.9 % Low 36.0 - 46.0 % [facility] Hemoglobin (Bld) [Mass/Vol] 9.4 g/dL Low 11.5 - 15.5 g/dL [facility] Immature granulocytes (Bld) [#/Vol] NINF [facility] Immature granulocytes/100 WBC (Bld) 0.6 % [facility] Interpretation and review of laboratory results Abnormal [facility] Lymphocytes (Bld) [#/Vol] 0.93 10*3/uL Low [facility] Lymphocytes/100 WBC (Bld) 27.4 % [facility] MCH (RBC) [Entitic mass] 36.0 pg High 26.0 - 34.0 pg [facility] MCHC (RBC) [Mass/Vol] 33.7 g/dL 30.5 - 36.0 g/dL [facility] MCV (RBC) [Entitic vol] 106.9 fL High 80.0 - 100.0 fL [facility] Monocytes (Bld) [#/Vol] 0.36 10*3/uL [facility] Monocytes/100 WBC (Bld) 10.6 % [facility] Neutrophils (Bld) [#/Vol] 1.94 10*3/uL [facility] Neutrophils/100 WBC (Bld) 57.0 % [facility] Nucleated RBC (Bld) [#/Vol] NINF [facility] Nucleated RBC/100 WBC (Bld) [Ratio] 0.0 % /100 WBC [facility] Platelet mean volume (Bld) [Entitic vol] 10.5 fL 9.0 - 12.7 fL [facility] Platelets (Bld) [#/Vol] 162 10*3/uL [facility] RBC (Bld) [#/Vol] 2.61 10*6/uL Low 3.90 - 5.2 0 m/uL [facility] WBC (Bld) [#/Vol] 3.40 10*3/uL Low [facility] Basophils (Bld) [#/Vol] 10*3/uL Normal <0.11 [facility] Comment on above: Order Comment: Speci men Type: BLOOD SPECIMENOrdering Facility: [facility] Address: [address] [place] [address] Performed By: #### 5 7021-8 ####[facility] YADI YARBROUGH [id number] [place] [address] [place] Basophils/100 WBC (Bld) 0.3 % Normal [facility] Comment on above: Order Comment: Speci men Type: BLOOD SPECIMENOrdering Facility: [facility] Address: [address] [place] [address] Performed By: #### 5 7021-8 ####[facility] [id number] [place] [address] [place] Differential cell count method Nom (Bld) Auto Normal [facility] Comment on above: Order Comment: Speci men Type: BLOOD SPECIMENOrdering Facility: [facility] Address: [address] [place] [address] Performed By: #### 5 7021-8 ####[facility] [id number] [place] [address] [place] Eosinophils (Bld) [#/Vol] 0.14 10*3/uL Normal <0.46 [facility] Comment on above: Order Comment: Speci men Type: BLOOD SPECIMENOrdering Facility: [facility] Address: [address] [place] [address] Performed By: #### 5 7021-8 ####[facility] [id number] [place] [address] [place] Eosinophils/100 WBC (Bld) 4.1 % Normal [facility] Comment on above: Order Comment: Speci men Type: BLOOD SPECIMENOrdering Facility: [facility] Address: [address] [place] [address] Performed By: #### 5 7021-8 ####[facility] [id number] [place] [address] [place] Erythrocyte distribution width (RBC) [Ratio] 14.7 % Normal 11.5-15.0 [facility] Comment on above: Order Comment: Speci men Type: BLOOD SPECIMENOrdering Facility: [facility] Address: [address] [place] [address] Performed By: #### 5 7021-8 ####[facility] ZENON [id number] [place] [address] [place] Hematocrit (Bld) [Volume fraction] 27.9 % Low 36.0-46.0 [facility] Comment on above: Order Comment: Speci men Type: BLOOD SPECIMENOrdering Facility: [facility] Address: [address] [place] [address] Performed By: #### 5 7021-8 ####[facility] CENTERNCJASE [id number] [place] [address] [place] Hemoglobin (Bld) [Mass/Vol] 9.4 g/dL Low 11.5-15.5 [facility] Comment on above: Order Comment: Speci men Type: BLOOD SPECIMENOrdering Facility: [facility] Address: [address] [place] [address] Performed By: #### 5 7021-8 ####[facility] CENTERYANIRA [id number] [place] [address] [place] Immature granulocytes (Bld) [#/Vol] 10*3/uL Normal <0.10 [facility] Comment on above: Order Comment: Speci men Type: BLOOD SPECIMENOrdering Facility: [facility] Address: [address] [place] [address] Performed By: #### 5 7021-8 ####[facility] CENTERHAIA [id number] [place] [address] [place] Immature granulocytes/100 WBC (Bld) 0.6 % Normal [facility] Comment on above: Order Comment: Speci men Type: BLOOD SPECIMENOrdering Facility: [facility] Address: [address] [place] [address] Performed By: #### 5 7021-8 ####[facility]LESWNCLIA [id number] [place] [address] [place] Lymphocytes (Bld) [#/Vol] 0.93 10*3/uL Low 1.00-4.00 [facility] Comment on above: Order Comment: Speci men Type: BLOOD SPECIMENOrdering Facility: [facility] Address: [address] [place] [address] Performed By: #### 5 7021-8 ####[facility] CENTERA [id number] [place] [address] [place] Lymphocytes/100 WBC (Bld) 27.4 % Normal [facility] Comment on above: Order Comment: Speci men Type: BLOOD SPECIMENOrdering Facility: [facility] Address: [address] [place] [address] Performed By: #### 5 7021-8 ####[facility] [id number] [place] [address] [place] MCH (RBC) [Entitic mass] 36.0 pg High 26.0-34.0 [facility] Comment on above: Order Comment: Speci men Type: BLOOD SPECIMENOrdering Facility: [facility] Address: [address] [place] [address] Performed By: #### 5 7021-8 ####[facility]ENTERA [id number] [place] [address] [place] MCHC (RBC) [Mass/Vol] 33.7 g/dL Normal 30.5-36.0 [facility] Comment on above: Order Comment: Speci men Type: BLOOD SPECIMENOrdering Facility: [facility] Address: [address] [place] [address] Performed By: #### 5 7021-8 ####[facility]ENTERNCLIA [id number] [place] [address] [place] MCV (RBC) [Entitic vol] 106.9 fL High 80.0-100.0 [facility] Comment on above: Order Comment: Speci men Type: BLOOD SPECIMENOrdering Facility: [facility] Address: [address] [place] [address] Performed By: #### 5 7021-8 ####[facility]ENTERNCLIA [id number] [place] [address] [place] Monocytes (Bld) [#/Vol] 0.36 10*3/uL Normal <0.87 [facility] Comment on above: Order Comment: Speci men Type: BLOOD SPECIMENOrdering Facility: [facility] Address: [address] [place] [address] Performed By: #### 5 7021-8 ####[facility]ENTERNCLIA [id number] [place] [address] [place] Monocytes/100 WBC (Bld) 10.6 % Normal [facility] Comment on above: Order Comment: Speci men Type: BLOOD SPECIMENOrdering Facility: [facility] Address: [address] [place] [address] Performed By: #### 5 7021-8 ####[facility]ENTERNCLIA [id number] [place] [address] [place] Neutrophils (Bld) [#/Vol] 1.94 10*3/uL Normal 1.45-7.50 [facility] Comment on above: Order Comment: Speci men Type: BLOOD SPECIMENOrdering Facility: [facility] Address: [address] [place] [address] Performed By: #### 5 7021-8 ####[facility]ENTERNCLIA [id number] [place] [address] [place] Neutrophils/100 WBC (Bld) 57.0 % Normal [facility] Comment on above: Order Comment: Speci men Type: BLOOD SPECIMENOrdering Facility: [facility] Address: [address] [place] [address] Performed By: #### 5 7021-8 ####[facility] JARONSTARKVILLEYANIRA [id number] [place] [address] [place] Nucleated RBC (Bld) [#/Vol] 10*3/uL Normal <0.01 [facility] Comment on above: Order Comment: Speci men Type: BLOOD SPECIMENOrdering Facility: [facility] Address: [address] [place] [address] Performed By: #### 5 7021-8 ####[facility] CENTERNCJASE [id number] [place] [address] [place] Nucleated RBC/100 WBC (Bld) [Ratio] 0.0 /100 WBC Normal [facility] Comment on above: Order Comment: Speci men Type: BLOOD SPECIMENOrdering Facility: [facility] Address: [address] [place] [address] Performed By: #### 5 7021-8 ####[facility]ENTERNCLIA [id number] [place] [address] [place] Platelet mean volume (Bld) [Entitic vol] 10.5 fL Normal 9.0-12.7 [facility] Comment on above: Order Comment: Speci men Type: BLOOD SPECIMENOrdering Facility: [facility] Address: [address] [place] [address] Performed By: #### 5 7021-8 ####[facility]ENTERNCLIA [id number] [place] [address] [place] Platelets (Bld) [#/Vol] 162 10*3/uL Normal 150-400 [facility] Comment on above: Order Comment: Speci men Type: BLOOD SPECIMENOrdering Facility: [facility] Address: [address] [place] [address] Performed By: #### 5 7021-8 ####[facility] NAPLESWNCLIA [id number] [place] [address] [place] RBC (Bld) [#/Vol] 2.61 10*6/uL Low 3.90-5.20 [facility] Comment on above: Order Comment: Speci men Type: BLOOD SPECIMENOrdering Facility: [facility] Address: [address] [place] [address] Performed By: #### 5 7021-8 ####[facility]ENTERNCLIA [id number] [place] [address] [place] WBC (Bld) [#/Vol] 3.40 10*3/uL Low 3.70-11.00 [facility] Comment on above: Order Comment: Speci men Type: BLOOD SPECIMENOrdering Facility: [facility] Address: [address] [place] [address] Performed By: #### 5 7021-8 ####[facility] MED[facility] CENTERA [id number] [place] [address] [place] Cancer Ag125 SerPl-aCncon Cancer Ag 125 Qn 61 [arb'U]/mL High <39 [facility] Comment on above: Order Comment: Speci men Type: BLOOD SPECIMENOrdering Facility: [facility] Address: [address] [place] [address] Result Comment: CA 1 25 test methodology used is the Electrochemiluminescence Immunoassay by [employer]. Results obtained with different methods or kits cannot be used interchangeably.The reference interval is based on the 95th percentile of 240 apparently healthy premenopausal and postmenopausal women. At a cutoff value of 65 U/mL, the test sensitivity to distinguish ovarian carcinoma (FIGO stage I to IV) versus benign gynecological disease is 79%, with a specificity of 82%.Reference: Cancer Antigen 125 (CA 125 II) [package insert V 1.0 Nigerien]. [employer] [facility], [place], [place] (April 2015) Performed By: #### 1 0334-1 ####[facility] LABCLIA [id number] [place] [id number] [place] Comprehensive metabolic 2000 panelOrdered By: Sophia Hall on 05-18-2024 Albumin [Mass/Vol] 4.2 g/dL 3.9 - 4.9 g/dL [facility] ALP [Catalytic activity/Vol] 239 U/L High 34 - 123 U/L [facility] ALT [Catalytic activity/Vol] 18 U/L 7 - 38 U/L [facility] Anion gap [Moles/Vol] 8 mmol/L 8 - 15 mmol/L [facility] AST [Catalytic activity/Vol] 24 U/L 13 - 35 U/L [facility] Bilirubin [Mass/Vol] 0.6 mg/dL 0.2 - 1 .3 mg/dL [facility] Calcium [Mass/Vol] 10.0 mg/dL 8.5 - 10. 2 mg/dL [facility] Chloride [Moles/Vol] 103 mmol/L 98 - 10 7 mmol/L [facility] CO2 [Moles/Vol] 26 mmol/L 22 - 30 mmol/L [facility] Creatinine [Mass/Vol] 1.40 mg/dL High 0.58 - 0.96 mg/dL [facility] GFR/1.73 sq M.predicted among non-blacks MDRD (S/P/Bld) [Vol rate/Area] 40 mL/min/{1.73_m2} Low - PINF [facility] Comment on above: Estimated Glomerular Filtration Rate (eGFR) is calculated using the 2020 CKD-EPI creatinine equation. This equation utilizes serum creatinine, sex, and age as parameters. The creatinine assay has traceable calibration to isotope dilution-mass spectrometry. Refer to KDIGO guidelines for clinical interpretation. In patients with unstable renal function, e.g. those with acute kidney injury, the eGFR may not accurately reflect actual GFR. Glucose [Mass/Vol] 118 mg/dL High 74 - 99 mg/dL [facility] Comment on above: The [place] Diabete s Association (ADA) provides guidance for cutoff values for fasting glucose and random glucose. The ADA defines fasting as no caloric intake for at least 8 hours. Fasting plasma glucose results between 100 to 125 mg/dL indicate increased risk for diabetes (prediabetes). Fasting plasma glucose results greater than or equal to 126 mg/dL meet the criteria for diagnosis of diabetes. In the absence of unequivocal hyperglycemia, results should be confirmed by repeat testing. In a patient with classic symptoms of hyperglycemia or hyperglycemic crisis, random plasma glucose results greater than or equal to 200 mg/dL meet the criteria for diagnosis of diabetes. Reference: Standards of Medical Care in Diabetes 2016, [place] Diabetes Association. Diabetes Care. 2016.39(Suppl 1). Interpretation and review of laboratory results Abnormal [facility] Potassium [Moles/Vol] 4.1 mmol/L 3.7 - 5.1 mmol/L [facility] Protein [Mass/Vol] 6.4 g/dL 6.3 - 8.0 g/dL [facility] Sodium [Moles/Vol] 137 mmol/L 136 - 144 mmol/L [facility] Urea nitrogen [Mass/Vol] 33 mg/dL High 7 - 21 mg/dL [facility] Comprehensive metabolic 2000 panelon 05-18-2024 Albumin [Mass/Vol] 4.2 g/dL Normal 3.9-4.9 [facility] Comment on above: Order Comment: Riaz hernández Type: BLOOD SPECIMENOrdering Facility: [facility] Address: [address] [place] [address] Performed By: #### 2 4323-8 ####[facility] [id number] [place] [address] [place] ALP [Catalytic activity/Vol] 239 U/L High 34-123 [facility] Comment on above: Order Comment: Riaz hernández Type: BLOOD SPECIMENOrdering Facility: [facility] Address: [address] [place] [address] Performed By: #### 2 4323-8 ####[facility] [id number] [place] [address] [place] ALT [Catalytic activity/Vol] 18 U/L Normal 7-38 [facility] Comment on above: Order Comment: Riaz hernández Type: BLOOD SPECIMENOrdering Facility: [facility] Address: [address] [place] [address] Performed By: #### 2 4323-8 ####[facility] INSTITUTETOWNCLIA [id number] [place] [address] [place] Anion gap [Moles/Vol] 8 mmol/L Normal 8-15 [facility] Comment on above: Order Comment: Speci men Type: BLOOD SPECIMENOrdering Facility: [facility] Address: [address] [place] [address] Performed By: #### 2 4323-8 ####[facility] MILLKEATONWNCLIA [id number] [place] [address] [place] AST [Catalytic activity/Vol] 24 U/L Normal 13-35 [facility] Comment on above: Order Comment: Speci men Type: BLOOD SPECIMENOrdering Facility: [facility] Address: [address] [place] [address] Performed By: #### 2 4323-8 ####[facility] CENTERBANGLIA [id number] [place] [address] [place] Bilirubin [Mass/Vol] 0.6 mg/dL Normal 0.2-1.3 [facility] Comment on above: Order Comment: Speci men Type: BLOOD SPECIMENOrdering Facility: [facility] Address: [address] [place] [address] Performed By: #### 2 4323-8 ####[facility] JARONWBANGLIA [id number] [place] [address] [place] Calcium [Mass/Vol] 10.0 mg/dL Normal 8.5-10.2 [facility] Comment on above: Order Comment: Speci men Type: BLOOD SPECIMENOrdering Facility: [facility] Address: [address] [place] [address] Performed By: #### 2 4323-8 ####[facility]ENTERNCLIA [id number] [place] [address] [place] Chloride [Moles/Vol] 103 mmol/L Normal 98-107 [facility] Comment on above: Order Comment: Speci men Type: BLOOD SPECIMENOrdering Facility: [facility] Address: [address] [place] [address] Performed By: #### 2 4323-8 ####[facility] [id number] [place] [address] [place] CO2 [Moles/Vol] 26 mmol/L Normal 22-30 [facility] Comment on above: Order Comment: Speci men Type: BLOOD SPECIMENOrdering Facility: [facility] Address: [address] [place] [address] Performed By: #### 2 4323-8 ####[facility] [id number] [place] [address] [place] Creatinine [Mass/Vol] 1.40 mg/dL High 0.58-0.96 [facility] Comment on above: Order Comment: Speci men Type: BLOOD SPECIMENOrdering Facility: [facility] Address: [address] [place] [address] Performed By: #### 2 4323-8 ####[facility] [id number] [address] [place] Creatinine and Glomerular filtration rate.predicted panel (S/P/Bld) 40 mL/min/1.73m??? Low >=60 [facility] Comment on above: Order Comment: Speci men Type: BLOOD SPECIMENOrdering Facility: [facility] Address: [address] [place] [address] Result Comment: Fernanda mated Glomerular Filtration Rate (eGFR) is calculated using the 2020 CKD-EPI creatinine equation. This equation utilizes serum creatinine, sex, and age as parameters. The creatinine assay has traceable calibration to isotope dilution-mass spectrometry. Refer to KDIGO guidelines for clinical interpretation. In patients with unstable renal function, e.g. those with acute kidney injury, the eGFR may not accurately reflect actual GFR. Performed By: #### 2 4323-8 ####[facility] NAPLESWNCLIA [id number] [place] [address] [place] Glucose [Mass/Vol] 118 mg/dL High 74-99 [facility] Comment on above: Order Comment: Speci men Type: BLOOD SPECIMENOrdering Facility: [facility] Address: [address] [place], [place] [id number] Result Comment: The [place] Diabetes Association (ADA) provides guidance for cutoff values for fasting glucose and random glucose. The ADA defines fasting as no caloric intake for at least 8 hours. Fasting plasma glucose results between 100 to 125 mg/dL indicate increased risk for diabetes (prediabetes).Fasting plasma glucose results greater than or equal to 126 mg/dL meet the criteria for diagnosis of diabetes. In the absence of unequivocal hyperglycemia, results should be confirmed by repeat testing. In a patient with classic symptoms of hyperglycemia or hyperglycemic crisis, random plasma glucose results greater than or equal to 200 mg/dL meet the criteria for diagnosis of diabetes.Reference: Standards of Medical Care in Diabetes 2016, [place] Diabetes Association. Diabetes Care. 2016.39(Suppl 1). Performed By: #### 2 4323-8 ####[facility] H[facility]PITALLIA [id number] [place] [address] [place] Potassium [Moles/Vol] 4.1 mmol/L Normal 3.7-5.1 [facility] Comment on above: Order Comment: Speci men Type: BLOOD SPECIMENOrdering Facility: [facility] Address: [address] [place] [address] Performed By: #### 2 4323-8 ####[facility]ENTERNCLIA [id number] [place] [address] [place] Protein [Mass/Vol] 6.4 g/dL Normal 6.3-8.0 [facility] Comment on above: Order Comment: Speci men Type: BLOOD SPECIMENOrdering Facility: [facility] Address: [address] [place], [place] [address] Performed By: #### 2 4323-8 ####[facility] JARONWNCLIA [id number] [place] [address] [place] Sodium [Moles/Vol] 137 mmol/L Normal 136-144 [facility] Comment on above: Order Comment: Speci men Type: BLOOD SPECIMENOrdering Facility: [facility] Address: [address] [place] [address] Performed By: #### 2 4323-8 ####[facility]ENTERNCLIA [id number] [place] [address] [place] Urea nitrogen [Mass/Vol] 33 mg/dL High 7-21 [facility] Comment on above: Order Comment: Speci men Type: BLOOD SPECIMENOrdering Facility: [facility] Address: [address] [place] [address] Performed By: #### 2 4323-8 ####[facility]ENTERNCLIA [id number] [address] [place] CNOVSPon 05-17-2024 CNOVSP Visit (SP) Office (JAIME) -- GASPER REED ([id number]) 1950 F Date Time Provider Department 05/17/24 10:30 AM MAYTE GONZALEZ During your visit today, we recorded the following information about you: Temperature Pulse Blood pressure Weight 98 degrees 62/minute 189/76 52.6 kg Mayte Gonzalez, MATERIALS MANAGEMENT MANAGER.HOUSEKEEPING ASSISTANT 05/17/2024 10:59 AM Signed Gynecologic Oncology Note [facility] Chief complaint: ovarian cancer surveillance HPI: This is a 72 year old patient with 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 On olaparib since 03/2024. Current dose 200 mg bid. Managed by Dr Mccoy. Tolerating well. Occasional nausea that zofran helps. Has ostomy. Had surgery 04/24/[address] Miles for colostomy reversal was unable to do at that time. Colorectal anastomosis was done Biopsies taken neg for cancer. Will reconsider reversal in a few months. Recovering well. Energy improving. No issues with ostomy. Managing well. No pain or bloating. Appetite good. Last Ct 01/2024 MELISSA ROS: 14 point ROS negative unless indicated in above HPI. Oncologic history: 07/15/23: Diagnostic laparoscopy - extensive infiltration into Ball's pouch, frdedy hepatis, dense scarring between liver and diaphragm due to disease infiltration. Debulking aborted. Transverse loop colostomy created. 08/09/23: C1D1 carboplatin/paclitaxel 08/30/23: C2D1 09/20/23: C3D1 10/28/23: Interval debulking surgery. Ex-lap, enterolysis, modified posterior exenterative procedure including radical hysterectomy, BSO, en bloc resection of rectosigmoid colon, bilateral temporary stents (urology). No residual disease. 01/23/24: C6D1 carboplatin/paclitaxel. 02/01/24: Completion CT MELISSA. 03/2024: olaparib started 04/25/2024: colorectal resection biopsy of omentum FINAL DIAGNOSIS A. Omentum, biopsy: - Fragments of benign fibromuscular tissue, squamous mucosa, and organizing blood clot. B. Colonic donuts, excision: - Benign colonic tissue. C. Colostomy, reversal: - Benign colostomy site. Oncology History Ovarian cancer on left (HCC) 07/27/2023 Initial Diagnosis Ovarian cancer on left (HCC) 08/09/2023 - Chemotherapy Treatment goal 2. Oncology Non-Curative Plan Name AMB PACLITAXEL 175 D1 CARBOPLATIN 6 D1 - Q21D Status Active Start Date 08/09/2023 End Date 01/23/2024 Provider Hiram Mccoy, DO Chemotherapy CARBOplatin 400 mg in NaCl 0.9% 315 mL (PARAPLATIN), 400 mg (100 % of original dose 415.2 mg), INTRAVENOUS, ONCE, 6 of 6 cycles Dose modification: 415.2 mg (original dose 415.2 mg, Cycle 1), 420 mg (original dose 420 mg, Cycle 2), 405 mg (original dose 405 mg, Cycle 4), 405 mg (original dose 405 mg, Cycle 3), 406.2 mg (original dose 406.2 mg, Cycle 5), 338.5 mg (original dose 338.5 mg, Cycle 6) Administration: 400 mg (08/09/2023), 400 mg (08/30/2023), 400 mg (12/06/2023), 400 mg (09/20/2023), 400 mg (12/28/2023), 338.5 mg (01/23/2024) PACLitaxel 270 mg in NaCl 0.9% 585 mL (TAXOL), 175 mg/m2 = 270 mg, INTRAVENOUS, ONCE, 6 of 6 cycles Dose modification: 135 mg/m2 (original dose 175 mg/m2, Cycle 6, Reason: 3.) Toxicity, Comment: Severe thrombocytopenia) Administration: 270 mg (08/09/2023), 270 mg (08/30/2023), 269.5 mg (12/06/2023), 269.5 mg (09/20/2023), 269.5 mg (12/28/2023), 200 mg (01/23/2024) PE: EGOG PS 1 BP 189/76 (BP Site: Right Arm, BP Position: Sitting, BP Cuff Size: Regular Adult) Pulse 62 Temp 36.7 ?C (98 ?F) (Oral) Wt 52.6 kg (116 lb) SpO2 98% BMI 21.22 kg/m? Gen: well-appearing, NAD, here with her daughter Lungs: unlabored breathing on Ra Abdomen: sort, Nt , no masses, stoma looks good Pelvic: no external lesion, no pelvic masses, no groin adenopathy Extremities: no edema The sensitive examination was discussed with the Patient or Patient's Authorized Apparel Sales Associate. As applicable, any other physician, advance practice provider, medical student, or other health professional student that will be observing or involved in the sensitive examination for educational or training purposes was discussed with the Patient or Authorized Apparel Sales Associate. The Patient or Authorized Apparel Sales Associate has agreed to proceed with the sensitive examination. (Sensitive examination includes inspection and/or palpation of the breasts, pelvis, prostate and anorectal regions) Labs/Imagin05/07/2024: CBC, CMP reviewed in epic 05/03/2024: Ca125 97 up from 23 04/05/2024 A/P: This is a 72 year old with stage IVB high grade serous ovarian vs fallopian tube cancer s/p upfront treatment here for CT review and treatment planning. Ovarian/fallopian tube cancer: - Completion CT negative/MELISSA. Ca-125 reflects this. - Germline BRIP mutation - on olaparib. Managed by Dr. Mccoy. -ca 125 recent jum (more content not included)... Normal [facility] CNOVon 05-09-2024 CNOV Office Visit (AGGENS 3) -- GASPER REED ([id number]) 1950 F Date Time Provider Department 05/09/24 11:00 AM ROHIT MILES3 During your visit today, we recorded the following information about you: Pulse Blood pressure Weight Height 68/minute 187/97 52.6 kg 1.575 m Rohit Miles MD 05/09/2024 12:31 PM Signed Rohit Miles M.D. Colon AND Rectal Surgery [address] [facility], [address] [place] [address] SUBJECTIVE Gasper Reed is a 73 year old White female s/p colorectal anastomosis HPI She denies abdominal pain, and notes that her stoma is working mostly like it had been. She is eating well and has not had any stool or mucus per rectum currently. Review of Systems Constitutional: Negative for chills, fever and weight loss. HENT: Negative for congestion, ear pain, hearing loss, sinus pain and sore throat. Eyes: Negative for blurred vision, double vision and pain. Respiratory: Negative for cough, shortness of breath and wheezing. Cardiovascular: Negative for chest pain, palpitations and leg swelling. Gastrointestinal: Positive for nausea. Negative for abdominal pain, blood in stool, constipation, diarrhea, heartburn and vomiting. Genitourinary: Negative for dysuria, frequency and urgency. Musculoskeletal: Positive for joint pain. Negative for back pain and neck pain. Skin: Negative for itching and rash. Neurological: Negative for dizziness, weakness and headaches. Endo/Heme/Allergies: Negative for environmental allergies. Bruises/bleeds easily. Psychiatric/Behavioral: Negative for depression and memory loss. The patient is not nervous/anxious and does not have insomnia. PAST MEDICAL HISTORY Diagnosis Date Arthritis Attention to colostomy (HCC) Cataract Colostomy in place (HCC) ovarian cancer, tumor leaning against bowel Essential hypertension, benign 07/25/1994 Generalized anxiety disorder Nausea and vomiting with chemotherapy and anesthesia Ovarian cancer on left (HCC) PONV (postoperative nausea and vomiting) PAST SURGICAL HISTORY Procedure Laterality Date COLOSTOMY 07/15/2023 transverse loop diverting L'SCOPE DX W/WO BRUSHINGS/WASHINGS 07/15/2023 with peritoneal biopsy LAPAROSCOPIC OMENTECTOMY 10/28/2023 LIG/TRNSXJ FLP TUBE ABDL/VAG APPR UNI/BI 07/25/1981 Tubal ligation TONSILLECTOMY AND ADENOIDECTOMY TOTAL ABDOM HYSTERECTOMY 10/28/2023 TOTAL ABDOMINAL HYSTERECT W/WO RMVL TUBE OVARY 10/28/2023 Social History Tobacco Use Smoking status: Former Current packs/day: 0.00 Types: Cigarettes Start date: 07/25/1972 Quit date: 07/25/1974 Years since quittin.8 Smokeless tobacco: Never Tobacco comments: Pt smoked an occ cigarette for 2 approx years Vaping Use Vaping status: Never Used Substance Use Topics Alcohol use: Not Currently Alcohol/week: 2.0 standard drinks of alcohol Types: 2 Glasses of Wine (5oz) per week Drug use: No FAMILY HISTORY Problem Relation Age of Onset Osteoporosis Mother smoker other (osteoarthritis) Mother Cancer Mother Coronary Artery Disease Father MA age 40's, age 60's; also smoked and alcoholic Mental illness Sister Renal Disease Sister Cancer Sister other (rheumatoid arthritis) Sister Coronary Artery Disease Brother MA age 49, smoker, recovering alcoholic Breast Cancer Paternal Grandmother late 70's Diabetes Paternal Grandfather Heart Paternal Grandfather Breast Cancer Maternal Aunt age 65 Ovarian cancer Maternal Aunt The ROS, medical, surgical, family, and social history were reviewed by Rohit Miles MD ALLERGIES Allergen Reactions Erythromycin Diarrhea, GI Upset Abdominal cramping Penicillins Unknown Current Outpatient Medications Medication Sig lisinopril-hydroCHLOROthia zide (ZESTORETIC) 20-12.5 mg per tablet promethazine (PHENERGAN) 25 mg tablet Take 1 tab by mouth every 4 hours as needed for nausea. olaparib (LYNPARZA) 100 mg tablet Take 2 tablets (200 mg) by mouth two times a day. pantoprazole DR (PROTONIX) 40 mg tablet take 1 tablet by mouth every day ondansetron (ZOFRAN) 8 mg tablet Take 1 tablet by mouth every 8 hours as needed for nausea/vomiting. acetaminophen (TYLENOL) 500 mg tablet Take 2 tablets by mouth every 6 hours. vitamin b complex capsule Take 1 capsule by mouth once daily. oxybutynin ER (DITROPAN XL) 10 mg 24 hr tablet Take 15 mg by mouth once daily. lidocaine-prilocaine (EMLA) 2.5-2.5 % cream Apply 60 minutes prior to accessing port calcium carbonate (CALCIUM 600 ORAL) Take 1 tablet by mouth once daily. No current facility-administered medications for this visit. OBJECTIVE BP 187/97 (BP Site: Left Arm, BP Position: Sitting, BP Cuff Size: Regular Adult) Pulse 68 Ht 157.5 cm (5' 2) Wt 52.6 kg (116 lb) BMI 21.22 kg/m? BMI 21.22 kg/(m2) Physica (more content not included)... Normal [facility] CBC W Auto Differential pane l (Bld)on 05-07-2024 Basophils (Bld) [#/Vol] [facility] Basophils/100 WBC (Bld) 0.4 % [facility] Differential cell count method Nom (Bld) Auto [facility] Eosinophils (Bld) [#/Vol] 0.08 10*3/uL [facility] Eosinophils/100 WBC (Bld) 1.8 % [facility] Erythrocyte distribution width (RBC) [Ratio] 14.8 % 11.5 - 15.0 % [facility] Hematocrit (Bld) [Volume fraction] 26.5 % Low 36.0 - 46.0 % [facility] Hemoglobin (Bld) [Mass/Vol] 8.9 g/dL Low 11.5 - 15.5 g/dL [facility] Immature granulocytes (Bld) [#/Vol] NINF [facility] Immature granulocytes/100 WBC (Bld) 0.2 % [facility] Interpretation and review of laboratory results Abnormal [facility] Lymphocytes (Bld) [#/Vol] 0.85 10*3/uL Low [facility] Lymphocytes/100 WBC (Bld) 18.6 % [facility] MCH (RBC) [Entitic mass] 36.2 pg High 26.0 - 34.0 pg [facility] MCHC (RBC) [Mass/Vol] 33.6 g/dL 30.5 - 36.0 g/dL [facility] MCV (RBC) [Entitic vol] 107.7 fL High 80.0 - 100.0 fL [facility] Monocytes (Bld) [#/Vol] 0.37 10*3/uL NINF [facility] Monocytes/100 WBC (Bld) 8.1 % [facility] Neutrophils (Bld) [#/Vol] 3.23 10*3/uL [facility] Neutrophils/100 WBC (Bld) 70.9 % [facility] Nucleated RBC (Bld) [#/Vol] NINF [facility] Nucleated RBC/100 WBC (Bld) [Ratio] 0.0 % /100 WBC [facility] Platelet mean volume (Bld) [Entitic vol] 10.9 fL 9.0 - 12.7 fL [facility] Platelets (Bld) [#/Vol] 143 10*3/uL Low [facility] RBC (Bld) [#/Vol] 2.46 10*6/uL Low 3.90 - 5.2 0 m/uL [facility] WBC (Bld) [#/Vol] 4.56 10*3/uL [facility] Comprehensive metabolic 2000 panelOrdered By: Sophia Hall on 05-07-2024 Albumin [Mass/Vol] 4.2 g/dL 3.9 - 4.9 g/dL [facility] ALP [Catalytic activity/Vol] 558 U/L High 34 - 123 U/L [facility] ALT [Catalytic activity/Vol] 79 U/L High 7 - 38 U/L [facility] Anion gap [Moles/Vol] 13 mmol/L 8 - 15 mmol/L [facility] AST [Catalytic activity/Vol] 28 U/L 13 - 35 U/L [facility] Bilirubin [Mass/Vol] 0.7 mg/dL 0.2 - 1 .3 mg/dL [facility] Calcium [Mass/Vol] 10.0 mg/dL 8.5 - 10. 2 mg/dL [facility] Chloride [Moles/Vol] 100 mmol/L 98 - 10 7 mmol/L [facility] CO2 [Moles/Vol] 26 mmol/L 22 - 30 mmol/L [facility] Creatinine [Mass/Vol] 1.27 mg/dL High 0.58 - 0.96 mg/dL [facility] GFR/1.73 sq M.predicted among non-blacks MDRD (S/P/Bld) [Vol rate/Area] 45 mL/min/{1.73_m2} Low - PINF [facility] Comment on above: Estimated Glomerular Filtration Rate (eGFR) is calculated using the 2020 CKD-EPI creatinine equation. This equation utilizes serum creatinine, sex, and age as parameters. The creatinine assay has traceable calibration to isotope dilution-mass spectrometry. Refer to KDIGO guidelines for clinical interpretation. In patients with unstable renal function, e.g. those with acute kidney injury, the eGFR may not accurately reflect actual GFR. Glucose [Mass/Vol] 101 mg/dL High 74 - 99 mg/dL [facility] Comment on above: The [place] [employer] (ADA) provides guidance for cutoff values for fasting glucose and random glucose. The ADA defines fasting as no caloric intake for at least 8 hours. Fasting plasma glucose results between 100 to 125 mg/dL indicate increased risk for diabetes (prediabetes). Fasting plasma glucose results greater than or equal to 126 mg/dL meet the criteria for diagnosis of diabetes. In the absence of unequivocal hyperglycemia, results should be confirmed by repeat testing. In a patient with classic symptoms of hyperglycemia or hyperglycemic crisis, random plasma glucose results greater than or equal to 200 mg/dL meet the criteria for diagnosis of diabetes. Reference: Standards of Medical Care in Diabetes 2016, [place] [employer]. Diabetes Care. 2016.39(Suppl 1). Interpretation and review of laboratory results Abnormal [facility] Potassium [Moles/Vol] 4.3 mmol/L 3.7 - 5.1 mmol/L [facility] Protein [Mass/Vol] 6.7 g/dL 6.3 - 8.0 g/dL [facility] Sodium [Moles/Vol] 139 mmol/L 136 - 144 mmol/L [facility] Urea nitrogen [Mass/Vol] 36 mg/dL High 7 - 21 mg/dL [facility] CBC W Auto Differential pane l (Bld)on 05-03-2024 Basophils (Bld) [#/Vol] [facility] Basophils/100 WBC (Bld) 0.5 % [facility] Differential cell count method Nom (Bld) Auto [facility] Eosinophils (Bld) [#/Vol] 0.13 10*3/uL [facility] Eosinophils/100 WBC (Bld) 2.9 % [facility] Erythrocyte distribution width (RBC) [Ratio] 14.5 % 11.5 - 15.0 % [facility] Hematocrit (Bld) [Volume fraction] 26.5 % Low 36.0 - 46.0 % [facility] Hemoglobin (Bld) [Mass/Vol] 9.1 g/dL Low 11.5 - 15.5 g/dL [facility] Immature granulocytes (Bld) [#/Vol] [facility] Immature granulocytes/100 WBC (Bld) 0.5 % [facility] Interpretation and review of laboratory results Abnormal [facility] Lymphocytes (Bld) [#/Vol] 0.88 10*3/uL Low [facility] Lymphocytes/100 WBC (Bld) 19.9 % [facility] MCH (RBC) [Entitic mass] 36.4 pg High 26.0 - 34.0 pg [facility] MCHC (RBC) [Mass/Vol] 34.3 g/dL 30.5 - 36.0 g/dL [facility] MCV (RBC) [Entitic vol] 106.0 fL High 80.0 - 100.0 fL [facility] Monocytes (Bld) [#/Vol] 0.37 10*3/uL [facility] Monocytes/100 WBC (Bld) 8.4 % [facility] Neutrophils (Bld) [#/Vol] 3.00 10*3/uL [facility] Neutrophils/100 WBC (Bld) 67.8 % [facility] Nucleated RBC (Bld) [#/Vol] [facility] Nucleated RBC/100 WBC (Bld) [Ratio] 0.0 % /100 WBC [facility] Platelet mean volume (Bld) [Entitic vol] 10.7 fL 9.0 - 12.7 fL [facility] Platelets (Bld) [#/Vol] 136 10*3/uL Low [facility] RBC (Bld) [#/Vol] 2.50 10*6/uL Low 3.90 - 5.2 0 m/uL [facility] WBC (Bld) [#/Vol] 4.42 10*3/uL [facility] Comprehensive metabolic 2000 panelOrdered By: Sophia Hall on 05-03-2024 Albumin [Mass/Vol] 4.2 g/dL 3.9 - 4.9 g/dL [facility] ALP [Catalytic activity/Vol] 876 U/L High 34 - 123 U/L [facility] ALT [Catalytic activity/Vol] 215 U/L High 7 - 38 U/L [facility] Anion gap [Moles/Vol] 11 mmol/L 8 - 15 mmol/L [facility] AST [Catalytic activity/Vol] 93 U/L High 13 - 35 U/L [facility] Bilirubin [Mass/Vol] 0.8 mg/dL 0.2 - 1 .3 mg/dL [facility] Calcium [Mass/Vol] 10.3 mg/dL High 8.5 - 10. 2 mg/dL [facility] Chloride [Moles/Vol] 102 mmol/L 98 - 10 7 mmol/L [facility] CO2 [Moles/Vol] 26 mmol/L 22 - 30 mmol/L [facility] Creatinine [Mass/Vol] 0.99 mg/dL High 0.58 - 0.96 mg/dL [facility] GFR/1.73 sq M.predicted among non-blacks MDRD (S/P/Bld) [Vol rate/Area] 60 mL/min/{1.73_m2} - PINF [facility] Comment on above: Estimated Glomerular Filtration Rate (eGFR) is calculated using the 2020 CKD-EPI creatinine equation. This equation utilizes serum creatinine, sex, and age as parameters. The creatinine assay has traceable calibration to isotope dilution-mass spectrometry. Refer to KDIGO guidelines for clinical interpretation. In patients with unstable renal function, e.g. those with acute kidney injury, the eGFR may not accurately reflect actual GFR. Glucose [Mass/Vol] 126 mg/dL High 74 - 99 mg/dL [facility] Comment on above: The [place] [employer] (ADA) provides guidance for cutoff values for fasting glucose and random glucose. The ADA defines fasting as no caloric intake for at least 8 hours. Fasting plasma glucose results between 100 to 125 mg/dL indicate increased risk for diabetes (prediabetes). Fasting plasma glucose results greater than or equal to 126 mg/dL meet the criteria for diagnosis of diabetes. In the absence of unequivocal hyperglycemia, results should be confirmed by repeat testing. In a patient with classic symptoms of hyperglycemia or hyperglycemic crisis, random plasma glucose results greater than or equal to 200 mg/dL meet the criteria for diagnosis of diabetes. Reference: Standards of Medical Care in Diabetes 2016, [place] [employer]. Diabetes Care. 2016.39(Suppl 1). Interpretation and review of laboratory results Abnormal [facility] Potassium [Moles/Vol] 4.0 mmol/L 3.7 - 5.1 mmol/L [facility] Protein [Mass/Vol] 6.7 g/dL 6.3 - 8.0 g/dL [facility] Sodium [Moles/Vol] 139 mmol/L 136 - 144 mmol/L [facility] Urea nitrogen [Mass/Vol] 25 mg/dL High 7 - 21 mg/dL [facility] CBC W Auto Differential pane l (Bld)on 04-19-2024 Basophils (Bld) [#/Vol] [facility] Basophils/100 WBC (Bld) 0.5 % [facility] Differential cell count method Nom (Bld) Auto [facility] Eosinophils (Bld) [#/Vol] 0.12 10*3/uL [facility] Eosinophils/100 WBC (Bld) 2.8 % [facility] Erythrocyte distribution width (RBC) [Ratio] 12.9 % 11.5 - 15.0 % [facility] Hematocrit (Bld) [Volume fraction] 27.1 % Low 36.0 - 46.0 % [facility] Hemoglobin (Bld) [Mass/Vol] 9.4 g/dL Low 11.5 - 15.5 g/dL [facility] Immature granulocytes (Bld) [#/Vol] [facility] Immature granulocytes/100 WBC (Bld) 0.0 % [facility] Interpretation and review of laboratory results Abnormal [facility] Lymphocytes (Bld) [#/Vol] 1.09 10*3/uL [facility] Lymphocytes/100 WBC (Bld) 25.8 % [facility] MCH (RBC) [Entitic mass] 36.3 pg High 26.0 - 34.0 pg [facility] MCHC (RBC) [Mass/Vol] 34.7 g/dL 30.5 - 36.0 g/dL [facility] MCV (RBC) [Entitic vol] 104.6 fL High 80.0 - 100.0 fL [facility] Monocytes (Bld) [#/Vol] 0.33 10*3/uL [facility] Monocytes/100 WBC (Bld) 7.8 % [facility] Neutrophils (Bld) [#/Vol] 2.66 10*3/uL [facility] Neutrophils/100 WBC (Bld) 63.1 % [facility] Nucleated RBC (Bld) [#/Vol] [facility] Nucleated RBC/100 WBC (Bld) [Ratio] 0.0 % /100 WBC [facility] Platelet mean volume (Bld) [Entitic vol] 10.4 fL 9.0 - 12.7 fL [facility] Platelets (Bld) [#/Vol] 119 10*3/uL Low [facility] RBC (Bld) [#/Vol] 2.59 10*6/uL Low 3.90 - 5.2 0 m/uL [facility] WBC (Bld) [#/Vol] 4.22 10*3/uL [facility] CBC W Auto Differential pane l (Bld)on 04-12-2024 Basophils (Bld) [#/Vol] [facility] Basophils/100 WBC (Bld) 0.5 % [facility] Differential cell count method Nom (Bld) Auto [facility] Eosinophils (Bld) [#/Vol] 0.10 10*3/uL [facility] Eosinophils/100 WBC (Bld) 2.5 % [facility] Erythrocyte distribution width (RBC) [Ratio] 12.5 % 11.5 - 15.0 % [facility] Hematocrit (Bld) [Volume fraction] 27.6 % Low 36.0 - 46.0 % [facility] Hemoglobin (Bld) [Mass/Vol] 9.4 g/dL Low 11.5 - 15.5 g/dL [facility] Immature granulocytes (Bld) [#/Vol] [facility] Immature granulocytes/100 WBC (Bld) 0.2 % [facility] Interpretation and review of laboratory results Abnormal [facility] Lymphocytes (Bld) [#/Vol] 0.97 10*3/uL Low [facility] Lymphocytes/100 WBC (Bld) 24.1 % [facility] MCH (RBC) [Entitic mass] 35.6 pg High 26.0 - 34.0 pg [facility] MCHC (RBC) [Mass/Vol] 34.1 g/dL 30.5 - 36.0 g/dL [facility] MCV (RBC) [Entitic vol] 104.5 fL High 80.0 - 100.0 fL [facility] Monocytes (Bld) [#/Vol] 0.25 10*3/uL [facility] Monocytes/100 WBC (Bld) 6.2 % [facility] Neutrophils (Bld) [#/Vol] 2.68 10*3/uL [facility] Neutrophils/100 WBC (Bld) 66.5 % [facility] Nucleated RBC (Bld) [#/Vol] [facility] Nucleated RBC/100 WBC (Bld) [Ratio] 0.0 % /100 WBC [facility] Platelet mean volume (Bld) [Entitic vol] 10.4 fL 9.0 - 12.7 fL [facility] Platelets (Bld) [#/Vol] 114 10*3/uL Low [facility] RBC (Bld) [#/Vol] 2.64 10*6/uL Low 3.90 - 5.2 0 m/uL [facility] WBC (Bld) [#/Vol] 4.03 10*3/uL [facility] CBC W Auto Differential pane l (Bld)on 04-05-2024 Basophils (Bld) [#/Vol] [facility] Basophils/100 WBC (Bld) 0.4 % [facility] Differential cell count method Nom (Bld) Auto [facility] Eosinophils (Bld) [#/Vol] 0.16 10*3/uL [facility] Eosinophils/100 WBC (Bld) 3.6 % [facility] Erythrocyte distribution width (RBC) [Ratio] 13.1 % 11.5 - 15.0 % [facility] Hematocrit (Bld) [Volume fraction] 28.5 % Low 36.0 - 46.0 % [facility] Hemoglobin (Bld) [Mass/Vol] 9.6 g/dL Low 11.5 - 15.5 g/dL [facility] Immature granulocytes (Bld) [#/Vol] NINF [facility] Immature granulocytes/100 WBC (Bld) 0.2 % [facility] Interpretation and review of laboratory results Abnormal [facility] Lymphocytes (Bld) [#/Vol] 1.18 10*3/uL [facility] Lymphocytes/100 WBC (Bld) 26.3 % [facility] MCH (RBC) [Entitic mass] 35.3 pg High 26.0 - 34.0 pg [facility] MCHC (RBC) [Mass/Vol] 33.7 g/dL 30.5 - 36.0 g/dL [facility] MCV (RBC) [Entitic vol] 104.8 fL High 80.0 - 100.0 fL [facility] Monocytes (Bld) [#/Vol] 0.36 10*3/uL NINF [facility] Monocytes/100 WBC (Bld) 8.0 % [facility] Neutrophils (Bld) [#/Vol] 2.76 10*3/uL [facility] Neutrophils/100 WBC (Bld) 61.5 % [facility] Nucleated RBC (Bld) [#/Vol] NINF [facility] Nucleated RBC/100 WBC (Bld) [Ratio] 0.0 % /100 WBC [facility] Platelet mean volume (Bld) [Entitic vol] 10.1 fL 9.0 - 12.7 fL [facility] Platelets (Bld) [#/Vol] 133 10*3/uL Low [facility] RBC (Bld) [#/Vol] 2.72 10*6/uL Low 3.90 - 5.2 0 m/uL [facility] WBC (Bld) [#/Vol] 4.49 10*3/uL [facility] Comprehensive metabolic 2000 panelOrdered By: Sophia Hall on 04-05-2024 Albumin [Mass/Vol] 4.3 g/dL 3.9 - 4.9 g/dL [facility] ALP [Catalytic activity/Vol] 95 U/L 34 - 123 U/L [facility] ALT [Catalytic activity/Vol] 21 U/L 7 - 38 U/L [facility] Anion gap [Moles/Vol] 11 mmol/L 8 - 15 mmol/L [facility] AST [Catalytic activity/Vol] 30 U/L 13 - 35 U/L [facility] Bilirubin [Mass/Vol] 0.9 mg/dL 0.2 - 1 .3 mg/dL [facility] Calcium [Mass/Vol] 10.1 mg/dL 8.5 - 10. 2 mg/dL [facility] Chloride [Moles/Vol] 101 mmol/L 98 - 10 7 mmol/L [facility] CO2 [Moles/Vol] 26 mmol/L 22 - 30 mmol/L [facility] Creatinine [Mass/Vol] 1.22 mg/dL High 0.58 - 0.96 mg/dL [facility] GFR/1.73 sq M.predicted among non-blacks MDRD (S/P/Bld) [Vol rate/Area] 47 mL/min/{1.73_m2} Low - PINF [facility] Comment on above: Estimated Glomerular Filtration Rate (eGFR) is calculated using the 2020 CKD-EPI creatinine equation. This equation utilizes serum creatinine, sex, and age as parameters. The creatinine assay has traceable calibration to isotope dilution-mass spectrometry. Refer to KDIGO guidelines for clinical interpretation. In patients with unstable renal function, e.g. those with acute kidney injury, the eGFR may not accurately reflect actual GFR. Glucose [Mass/Vol] 102 mg/dL High 74 - 99 mg/dL [facility] Comment on above: The [place] [employer] (ADA) provides guidance for cutoff values for fasting glucose and random glucose. The ADA defines fasting as no caloric intake for at least 8 hours. Fasting plasma glucose results between 100 to 125 mg/dL indicate increased risk for diabetes (prediabetes). Fasting plasma glucose results greater than or equal to 126 mg/dL meet the criteria for diagnosis of diabetes. In the absence of unequivocal hyperglycemia, results should be confirmed by repeat testing. In a patient with classic symptoms of hyperglycemia or hyperglycemic crisis, random plasma glucose results greater than or equal to 200 mg/dL meet the criteria for diagnosis of diabetes. Reference: Standards of Medical Care in Diabetes 2016, [place] [employer]. Diabetes Care. 2016.39(Suppl 1). Interpretation and review of laboratory results Abnormal [facility] Potassium [Moles/Vol] 4.2 mmol/L 3.7 - 5.1 mmol/L [facility] Protein [Mass/Vol] 6.4 g/dL 6.3 - 8.0 g/dL [facility] Sodium [Moles/Vol] 138 mmol/L 136 - 144 mmol/L [facility] Urea nitrogen [Mass/Vol] 29 mg/dL High 7 - 21 mg/dL [facility] CBC W Auto Differential pane l (Bld)on 03-29-2024 Basophils (Bld) [#/Vol] 0.03 10*3/uL [facility] Basophils/100 WBC (Bld) 0.6 % [facility] Differential cell count method Nom (Bld) Auto [facility] Eosinophils (Bld) [#/Vol] 0.10 10*3/uL [facility] Eosinophils/100 WBC (Bld) 2.0 % [facility] Erythrocyte distribution width (RBC) [Ratio] 14.3 % 11.5 - 15.0 % [facility] Hematocrit (Bld) [Volume fraction] 29.5 % Low 36.0 - 46.0 % [facility] Hemoglobin (Bld) [Mass/Vol] 9.9 g/dL Low 11.5 - 15.5 g/dL [facility] Immature granulocytes (Bld) [#/Vol] [facility] Immature granulocytes/100 WBC (Bld) 0.4 % [facility] Interpretation and review of laboratory results Abnormal [facility] Lymphocytes (Bld) [#/Vol] 1.10 10*3/uL [facility] Lymphocytes/100 WBC (Bld) 21.7 % [facility] MCH (RBC) [Entitic mass] 34.9 pg High 26.0 - 34.0 pg [facility] MCHC (RBC) [Mass/Vol] 33.6 g/dL 30.5 - 36.0 g/dL [facility] MCV (RBC) [Entitic vol] 103.9 fL High 80.0 - 100.0 fL [facility] Monocytes (Bld) [#/Vol] 0.48 10*3/uL [facility] Monocytes/100 WBC (Bld) 9.5 % [facility] Neutrophils (Bld) [#/Vol] 3.33 10*3/uL [facility] Neutrophils/100 WBC (Bld) 65.8 % [facility] Nucleated RBC (Bld) [#/Vol] [facility] Nucleated RBC/100 WBC (Bld) [Ratio] 0.0 % /100 WBC [facility] Platelet mean volume (Bld) [Entitic vol] 10.1 fL 9.0 - 12.7 fL [facility] Platelets (Bld) [#/Vol] 156 10*3/uL [facility] RBC (Bld) [#/Vol] 2.84 10*6/uL Low 3.90 - 5.2 0 m/uL [facility] WBC (Bld) [#/Vol] 5.06 10*3/uL [facility] CBC W Auto Differential pane l (Bld)on 03-21-2024 Basophils (Bld) [#/Vol] [facility] Basophils/100 WBC (Bld) 0.4 % [facility] Differential cell count method Nom (Bld) Auto [facility] Eosinophils (Bld) [#/Vol] 0.11 10*3/uL [facility] Eosinophils/100 WBC (Bld) 2.4 % [facility] Erythrocyte distribution width (RBC) [Ratio] 16.5 % High 11.5 - 15.0 % [facility] Hematocrit (Bld) [Volume fraction] 28.2 % Low 36.0 - 46.0 % [facility] Hemoglobin (Bld) [Mass/Vol] 9.3 g/dL Low 11.5 - 15.5 g/dL [facility] Immature granulocytes (Bld) [#/Vol] [facility] Immature granulocytes/100 WBC (Bld) 0.4 % [facility] Interpretation and review of laboratory results Abnormal [facility] Lymphocytes (Bld) [#/Vol] 1.23 10*3/uL [facility] Lymphocytes/100 WBC (Bld) 26.7 % [facility] MCH (RBC) [Entitic mass] 34.8 pg High 26.0 - 34.0 pg [facility] MCHC (RBC) [Mass/Vol] 33.0 g/dL 30.5 - 36.0 g/dL [facility] MCV (RBC) [Entitic vol] 105.6 fL High 80.0 - 100.0 fL [facility] Monocytes (Bld) [#/Vol] 0.42 10*3/uL [facility] Monocytes/100 WBC (Bld) 9.1 % [facility] Neutrophils (Bld) [#/Vol] 2.81 10*3/uL [facility] Neutrophils/100 WBC (Bld) 61.0 % [facility] Nucleated RBC (Bld) [#/Vol] [facility] Nucleated RBC/100 WBC (Bld) [Ratio] 0.0 % /100 WBC [facility] Platelet mean volume (Bld) [Entitic vol] 9.9 fL 9.0 - 12.7 fL [facility] Platelets (Bld) [#/Vol] 137 10*3/uL Low [facility] RBC (Bld) [#/Vol] 2.67 10*6/uL Low 3.90 - 5.2 0 m/uL [facility] WBC (Bld) [#/Vol] 4.61 10*3/uL [facility] No Panel Informationon 03-21 [facility] RETICULOCYTE COUNTon 024 Reticulocytes (Bld) [#/Vol] 0.035 10*3/uL [facility] Reticulocytes (Bld) [#/Vol]o n 03-21-2024 Interpretation and review of laboratory results Normal [facility] Reticulocytes/100 RBC (Bld) 1.3 % 0.4 - 2.0 % [facility] CBC W Auto Differential pane l (Bld)on 03-19-2024 Basophils (Bld) [#/Vol] 0.03 10*3/uL [facility] Basophils/100 WBC (Bld) 0.7 % [facility] Differential cell count method Nom (Bld) Auto [facility] Eosinophils (Bld) [#/Vol] 0.07 10*3/uL [facility] Eosinophils/100 WBC (Bld) 1.7 % [facility] Erythrocyte distribution width (RBC) [Ratio] 17.2 % High 11.5 - 15.0 % [facility] Hematocrit (Bld) [Volume fraction] 27.1 % Low 36.0 - 46.0 % [facility] Hemoglobin (Bld) [Mass/Vol] 9.1 g/dL Low 11.5 - 15.5 g/dL [facility] Immature granulocytes (Bld) [#/Vol] [facility] Immature granulocytes/100 WBC (Bld) 0.2 % [facility] Interpretation and review of laboratory results Abnormal [facility] Lymphocytes (Bld) [#/Vol] 1.28 10*3/uL [facility] Lymphocytes/100 WBC (Bld) 30.7 % [facility] MCH (RBC) [Entitic mass] 34.9 pg High 26.0 - 34.0 pg [facility] MCHC (RBC) [Mass/Vol] 33.6 g/dL 30.5 - 36.0 g/dL [facility] MCV (RBC) [Entitic vol] 103.8 fL High 80.0 - 100.0 fL [facility] Monocytes (Bld) [#/Vol] 0.41 10*3/uL NINF [facility] Monocytes/100 WBC (Bld) 9.8 % [facility] Neutrophils (Bld) [#/Vol] 2.37 10*3/uL [facility] Neutrophils/100 WBC (Bld) 56.9 % [facility] Nucleated RBC (Bld) [#/Vol] NINF [facility] Nucleated RBC/100 WBC (Bld) [Ratio] 0.0 % /100 WBC [facility] Platelet mean volume (Bld) [Entitic vol] 9.8 fL 9.0 - 12.7 fL [facility] Platelets (Bld) [#/Vol] 132 10*3/uL Low [facility] RBC (Bld) [#/Vol] 2.61 10*6/uL Low 3.90 - 5.2 0 m/uL [facility] WBC (Bld) [#/Vol] 4.17 10*3/uL [facility] Comprehensive metabolic 2000 panelOrdered By: Sophia Hall on 03-19-2024 Albumin [Mass/Vol] 4.3 g/dL 3.9 - 4.9 g/dL [facility] ALP [Catalytic activity/Vol] 91 U/L 34 - 123 U/L [facility] ALT [Catalytic activity/Vol] 23 U/L 7 - 38 U/L [facility] Anion gap [Moles/Vol] 13 mmol/L 8 - 15 mmol/L [facility] AST [Catalytic activity/Vol] 29 U/L 13 - 35 U/L [facility] Bilirubin [Mass/Vol] 0.8 mg/dL 0.2 - 1 .3 mg/dL [facility] Calcium [Mass/Vol] 9.4 mg/dL 8.5 - 10. 2 mg/dL [facility] Chloride [Moles/Vol] 103 mmol/L 98 - 10 7 mmol/L [facility] CO2 [Moles/Vol] 24 mmol/L 22 - 30 mmol/L [facility] Creatinine [Mass/Vol] 1.17 mg/dL High 0.58 - 0.96 mg/dL [facility] GFR/1.73 sq M.predicted among non-blacks MDRD (S/P/Bld) [Vol rate/Area] 49 mL/min/{1.73_m2} Low - PINF [facility] Comment on above: Estimated Glomerular Filtration Rate (eGFR) is calculated using the 2020 CKD-EPI creatinine equation. This equation utilizes serum creatinine, sex, and age as parameters. The creatinine assay has traceable calibration to isotope dilution-mass spectrometry. Refer to KDIGO guidelines for clinical interpretation. In patients with unstable renal function, e.g. those with acute kidney injury, the eGFR may not accurately reflect actual GFR. Glucose [Mass/Vol] 122 mg/dL High 74 - 99 mg/dL [facility] Comment on above: The [place] [employer] (ADA) provides guidance for cutoff values for fasting glucose and random glucose. The ADA defines fasting as no caloric intake for at least 8 hours. Fasting plasma glucose results between 100 to 125 mg/dL indicate increased risk for diabetes (prediabetes). Fasting plasma glucose results greater than or equal to 126 mg/dL meet the criteria for diagnosis of diabetes. In the absence of unequivocal hyperglycemia, results should be confirmed by repeat testing. In a patient with classic symptoms of hyperglycemia or hyperglycemic crisis, random plasma glucose results greater than or equal to 200 mg/dL meet the criteria for diagnosis of diabetes. Reference: Standards of Medical Care in Diabetes 2016, [place] [employer]. Diabetes Care. 2016.39(Suppl 1). Interpretation and review of laboratory results Abnormal [facility] Potassium [Moles/Vol] 3.9 mmol/L 3.7 - 5.1 mmol/L [facility] Protein [Mass/Vol] 6.4 g/dL 6.3 - 8.0 g/dL [facility] Sodium [Moles/Vol] 140 mmol/L 136 - 144 mmol/L [facility] Urea nitrogen [Mass/Vol] 28 mg/dL High 7 - 21 mg/dL [facility] CBC W Auto Differential pane l (Bld)on 02-28-2024 Basophils (Bld) [#/Vol] [facility] Basophils/100 WBC (Bld) 0.3 % [facility] Differential cell count method Nom (Bld) Auto [facility] Eosinophils (Bld) [#/Vol] 0.16 10*3/uL [facility] Eosinophils/100 WBC (Bld) 5.3 % [facility] Erythrocyte distribution width (RBC) [Ratio] 20.1 % High 11.5 - 15.0 % [facility] Hematocrit (Bld) [Volume fraction] 27.1 % Low 36.0 - 46.0 % [facility] Hemoglobin (Bld) [Mass/Vol] 9.0 g/dL Low 11.5 - 15.5 g/dL [facility] Immature granulocytes (Bld) [#/Vol] [facility] Immature granulocytes/100 WBC (Bld) 0.3 % [facility] Interpretation and review of laboratory results Abnormal [facility] Lymphocytes (Bld) [#/Vol] 0.99 10*3/uL Low [facility] Lymphocytes/100 WBC (Bld) 32.6 % [facility] MCH (RBC) [Entitic mass] 33.0 pg 26.0 - 34.0 pg [facility] MCHC (RBC) [Mass/Vol] 33.2 g/dL 30.5 - 36.0 g/dL [facility] MCV (RBC) [Entitic vol] 99.3 fL 80.0 - 100.0 fL [facility] Monocytes (Bld) [#/Vol] 0.29 10*3/uL [facility] Monocytes/100 WBC (Bld) 9.5 % [facility] Neutrophils (Bld) [#/Vol] 1.58 10*3/uL [facility] Neutrophils/100 WBC (Bld) 52.0 % [facility] Nucleated RBC (Bld) [#/Vol] [facility] Nucleated RBC/100 WBC (Bld) [Ratio] 0.0 % /100 WBC [facility] Platelet mean volume (Bld) [Entitic vol] 10.7 fL 9.0 - 12.7 fL [facility] Platelets (Bld) [#/Vol] 142 10*3/uL Low [facility] RBC (Bld) [#/Vol] 2.73 10*6/uL Low 3.90 - 5.2 0 m/uL [facility] WBC (Bld) [#/Vol] 3.04 10*3/uL Low [facility] CBC W Auto Differential pane l (Bld)on 02-06-2024 Basophils (Bld) [#/Vol] [facility] Basophils/100 WBC (Bld) 0.4 % [facility] Differential cell count method Nom (Bld) Auto [facility] Eosinophils (Bld) [#/Vol] [facility] Eosinophils/100 WBC (Bld) 0.8 % [facility] Erythrocyte distribution width (RBC) [Ratio] 15.3 % High 11.5 - 15.0 % [facility] Hematocrit (Bld) [Volume fraction] 26.6 % Low 36.0 - 46.0 % [facility] Hemoglobin (Bld) [Mass/Vol] 8.9 g/dL Low 11.5 - 15.5 g/dL [facility] Immature granulocytes (Bld) [#/Vol] [facility] Immature granulocytes/100 WBC (Bld) 0.4 % [facility] Interpretation and review of laboratory results Abnormal [facility] Lymphocytes (Bld) [#/Vol] 1.30 10*3/uL [facility] Lymphocytes/100 WBC (Bld) 52.6 % [facility] MCH (RBC) [Entitic mass] 31.8 pg 26.0 - 34.0 pg [facility] MCHC (RBC) [Mass/Vol] 33.5 g/dL 30.5 - 36.0 g/dL [facility] MCV (RBC) [Entitic vol] 95.0 fL 80.0 - 100.0 fL [facility] Monocytes (Bld) [#/Vol] 0.48 10*3/uL [facility] Monocytes/100 WBC (Bld) 19.4 % [facility] Neutrophils (Bld) [#/Vol] 0.65 10*3/uL Low [facility] Neutrophils/100 WBC (Bld) 26.4 % [facility] Nucleated RBC (Bld) [#/Vol] [facility] Nucleated RBC/100 WBC (Bld) [Ratio] 0.0 % /100 WBC [facility] Platelet mean volume (Bld) [Entitic vol] 11.6 fL 9.0 - 12.7 fL [facility] Platelets (Bld) [#/Vol] 35 10*3/uL Low [facility] Comment on above: No clot detected. RBC (Bld) [#/Vol] 2.80 10*6/uL Low 3.90 - 5.2 0 m/uL [facility] WBC (Bld) [#/Vol] 2.47 10*3/uL Low [facility] Comprehensive metabolic 2000 panelOrdered By: Sophia Hall on 02-06-2024 Albumin [Mass/Vol] 4.3 g/dL 3.9 - 4.9 g/dL [facility] ALP [Catalytic activity/Vol] 150 U/L High 34 - 123 U/L [facility] ALT [Catalytic activity/Vol] 26 U/L 7 - 38 U/L [facility] Anion gap [Moles/Vol] 8 mmol/L 8 - 15 mmol/L [facility] AST [Catalytic activity/Vol] 31 U/L 13 - 35 U/L [facility] Bilirubin [Mass/Vol] 0.5 mg/dL 0.2 - 1 .3 mg/dL [facility] Calcium [Mass/Vol] 9.4 mg/dL 8.5 - 10. 2 mg/dL [facility] Chloride [Moles/Vol] 103 mmol/L 98 - 10 7 mmol/L [facility] CO2 [Moles/Vol] 28 mmol/L 22 - 30 mmol/L [facility] Creatinine [Mass/Vol] 0.90 mg/dL 0.58 - 0.96 mg/dL [facility] GFR/1.73 sq M.predicted among non-blacks MDRD (S/P/Bld) [Vol rate/Area] 68 mL/min/{1.73_m2} - PINF [facility] Comment on above: Estimated Glomerular Filtration Rate (eGFR) is calculated using the 2020 CKD-EPI creatinine equation. This equation utilizes serum creatinine, sex, and age as parameters. The creatinine assay has traceable calibration to isotope dilution-mass spectrometry. Refer to KDIGO guidelines for clinical interpretation. In patients with unstable renal function, e.g. those with acute kidney injury, the eGFR may not accurately reflect actual GFR. Glucose [Mass/Vol] 113 mg/dL High 74 - 99 mg/dL [facility] Comment on above: The [place] [employer] (ADA) provides guidance for cutoff values for fasting glucose and random glucose. The ADA defines fasting as no caloric intake for at least 8 hours. Fasting plasma glucose results between 100 to 125 mg/dL indicate increased risk for diabetes (prediabetes). Fasting plasma glucose results greater than or equal to 126 mg/dL meet the criteria for diagnosis of diabetes. In the absence of unequivocal hyperglycemia, results should be confirmed by repeat testing. In a patient with classic symptoms of hyperglycemia or hyperglycemic crisis, random plasma glucose results greater than or equal to 200 mg/dL meet the criteria for diagnosis of diabetes. Reference: Standards of Medical Care in Diabetes 2016, [place] [employer]. Diabetes Care. 2016.39(Suppl 1). Interpretation and review of laboratory results Abnormal [facility] Potassium [Moles/Vol] 3.8 mmol/L 3.7 - 5.1 mmol/L [facility] Protein [Mass/Vol] 6.7 g/dL 6.3 - 8.0 g/dL [facility] Sodium [Moles/Vol] 139 mmol/L 136 - 144 mmol/L [facility] Urea nitrogen [Mass/Vol] 28 mg/dL High 7 - 21 mg/dL [facility] CBC W Auto Differential pane l (Bld)on 01-23-2024 Basophils (Bld) [#/Vol] [facility] Basophils/100 WBC (Bld) 0.3 % [facility] Differential cell count method Nom (Bld) Auto [facility] Eosinophils (Bld) [#/Vol] 0.11 10*3/uL [facility] Eosinophils/100 WBC (Bld) 3.2 % [facility] Erythrocyte distribution width (RBC) [Ratio] 15.1 % High 11.5 - 15.0 % [facility] Hematocrit (Bld) [Volume fraction] 24.0 % Low 36.0 - 46.0 % [facility] Hemoglobin (Bld) [Mass/Vol] 7.9 g/dL Low 11.5 - 15.5 g/dL [facility] Immature granulocytes (Bld) [#/Vol] [facility] Immature granulocytes/100 WBC (Bld) 0.3 % [facility] Interpretation and review of laboratory results Abnormal [facility] Lymphocytes (Bld) [#/Vol] 1.02 10*3/uL [facility] Lymphocytes/100 WBC (Bld) 29.8 % [facility] MCH (RBC) [Entitic mass] 32.1 pg 26.0 - 34.0 pg [facility] MCHC (RBC) [Mass/Vol] 32.9 g/dL 30.5 - 36.0 g/dL [facility] MCV (RBC) [Entitic vol] 97.6 fL 80.0 - 100.0 fL [facility] Monocytes (Bld) [#/Vol] 0.32 10*3/uL NINF [facility] Monocytes/100 WBC (Bld) 9.4 % [facility] Neutrophils (Bld) [#/Vol] 1.95 10*3/uL [facility] Neutrophils/100 WBC (Bld) 57.0 % [facility] Nucleated RBC (Bld) [#/Vol] NINF [facility] Nucleated RBC/100 WBC (Bld) [Ratio] 0.0 % /100 WBC [facility] Platelet mean volume (Bld) [Entitic vol] 10.7 fL 9.0 - 12.7 fL [facility] Platelets (Bld) [#/Vol] 144 10*3/uL Low [facility] RBC (Bld) [#/Vol] 2.46 10*6/uL Low 3.90 - 5.2 0 m/uL [facility] WBC (Bld) [#/Vol] 3.42 10*3/uL Low [facility] Comprehensive metabolic 2000 panelOrdered By: Rosa Cedillo on 01-23-2024 Albumin [Mass/Vol] 4.0 g/dL 3.9 - 4.9 g/dL [facility] ALP [Catalytic activity/Vol] 152 U/L High 34 - 123 U/L [facility] ALT [Catalytic activity/Vol] 25 U/L 7 - 38 U/L [facility] Anion gap [Moles/Vol] 8 mmol/L 8 - 15 mmol/L [facility] AST [Catalytic activity/Vol] 29 U/L 13 - 35 U/L [facility] Bilirubin [Mass/Vol] 0.5 mg/dL 0.2 - 1 .3 mg/dL [facility] Calcium [Mass/Vol] 9.5 mg/dL 8.5 - 10. 2 mg/dL [facility] Chloride [Moles/Vol] 104 mmol/L 98 - 10 7 mmol/L [facility] CO2 [Moles/Vol] 27 mmol/L 22 - 30 mmol/L [facility] Creatinine [Mass/Vol] 1.01 mg/dL High 0.58 - 0.96 mg/dL [facility] GFR/1.73 sq M.predicted among non-blacks MDRD (S/P/Bld) [Vol rate/Area] 59 mL/min/{1.73_m2} Low - PINF [facility] Comment on above: Estimated Glomerular Filtration Rate (eGFR) is calculated using the 2020 CKD-EPI creatinine equation. This equation utilizes serum creatinine, sex, and age as parameters. The creatinine assay has traceable calibration to isotope dilution-mass spectrometry. Refer to KDIGO guidelines for clinical interpretation. In patients with unstable renal function, e.g. those with acute kidney injury, the eGFR may not accurately reflect actual GFR. Glucose [Mass/Vol] 113 mg/dL High 74 - 99 mg/dL [facility] Comment on above: The [place] [employer] (ADA) provides guidance for cutoff values for fasting glucose and random glucose. The ADA defines fasting as no caloric intake for at least 8 hours. Fasting plasma glucose results between 100 to 125 mg/dL indicate increased risk for diabetes (prediabetes). Fasting plasma glucose results greater than or equal to 126 mg/dL meet the criteria for diagnosis of diabetes. In the absence of unequivocal hyperglycemia, results should be confirmed by repeat testing. In a patient with classic symptoms of hyperglycemia or hyperglycemic crisis, random plasma glucose results greater than or equal to 200 mg/dL meet the criteria for diagnosis of diabetes. Reference: Standards of Medical Care in Diabetes 2016, [place] [employer]. Diabetes Care. 2016.39(Suppl 1). Interpretation and review of laboratory results Abnormal [facility] Potassium [Moles/Vol] 3.9 mmol/L 3.7 - 5.1 mmol/L [facility] Protein [Mass/Vol] 6.3 g/dL 6.3 - 8.0 g/dL [facility] Sodium [Moles/Vol] 139 mmol/L 136 - 144 mmol/L [facility] Urea nitrogen [Mass/Vol] 32 mg/dL High 7 - 21 mg/dL [facility] CBC W Auto Differential pane l (Bld)on 01-19-2024 Basophils (Bld) [#/Vol] NINF [facility] Basophils/100 WBC (Bld) 0.3 % [facility] Differential cell count method Nom (Bld) Auto [facility] Eosinophils (Bld) [#/Vol] 0.07 10*3/uL [facility] Eosinophils/100 WBC (Bld) 1.8 % [facility] Erythrocyte distribution width (RBC) [Ratio] 13.7 % 11.5 - 15.0 % [facility] Hematocrit (Bld) [Volume fraction] 23.2 % Low 36.0 - 46.0 % [facility] Hemoglobin (Bld) [Mass/Vol] 7.8 g/dL Low 11.5 - 15.5 g/dL [facility] Immature granulocytes (Bld) [#/Vol] [facility] Immature granulocytes/100 WBC (Bld) 0.5 % [facility] Interpretation and review of laboratory results Abnormal [facility] Lymphocytes (Bld) [#/Vol] 1.36 10*3/uL [facility] Lymphocytes/100 WBC (Bld) 35.2 % [facility] MCH (RBC) [Entitic mass] 32.0 pg 26.0 - 34.0 pg [facility] MCHC (RBC) [Mass/Vol] 33.6 g/dL 30.5 - 36.0 g/dL [facility] MCV (RBC) [Entitic vol] 95.1 fL 80.0 - 100.0 fL [facility] Monocytes (Bld) [#/Vol] 0.26 10*3/uL [facility] Monocytes/100 WBC (Bld) 6.7 % [facility] Neutrophils (Bld) [#/Vol] 2.14 10*3/uL [facility] Neutrophils/100 WBC (Bld) 55.5 % [facility] Nucleated RBC (Bld) [#/Vol] [facility] Nucleated RBC/100 WBC (Bld) [Ratio] 0.0 % /100 WBC [facility] Platelet mean volume (Bld) [Entitic vol] 11.1 fL 9.0 - 12.7 fL [facility] Platelets (Bld) [#/Vol] 45 10*3/uL Low [facility] Comment on above: No clot detected. RBC (Bld) [#/Vol] 2.44 10*6/uL Low 3.90 - 5.2 0 m/uL [facility] WBC (Bld) [#/Vol] 3.86 10*3/uL [facility] CBC W Auto Differential pane l (Bld)on 01-16-2024 Basophils (Bld) [#/Vol] [facility] Basophils/100 WBC (Bld) 0.3 % [facility] Differential cell count method Nom (Bld) Auto [facility] Eosinophils (Bld) [#/Vol] 0.05 10*3/uL [facility] Eosinophils/100 WBC (Bld) 1.6 % [facility] Erythrocyte distribution width (RBC) [Ratio] 13.1 % 11.5 - 15.0 % [facility] Hematocrit (Bld) [Volume fraction] 22.9 % Low 36.0 - 46.0 % [facility] Hemoglobin (Bld) [Mass/Vol] 8.0 g/dL Low 11.5 - 15.5 g/dL [facility] Immature granulocytes (Bld) [#/Vol] [facility] Immature granulocytes/100 WBC (Bld) 0.6 % [facility] Interpretation and review of laboratory results Abnormal [facility] Lymphocytes (Bld) [#/Vol] 1.42 10*3/uL [facility] Lymphocytes/100 WBC (Bld) 46.1 % [facility] MCH (RBC) [Entitic mass] 33.1 pg 26.0 - 34.0 pg [facility] MCHC (RBC) [Mass/Vol] 34.9 g/dL 30.5 - 36.0 g/dL [facility] MCV (RBC) [Entitic vol] 94.6 fL 80.0 - 100.0 fL [facility] Monocytes (Bld) [#/Vol] 0.35 10*3/uL [facility] Monocytes/100 WBC (Bld) 11.4 % [facility] Neutrophils (Bld) [#/Vol] 1.23 10*3/uL Low [facility] Neutrophils/100 WBC (Bld) 40.0 % [facility] Nucleated RBC (Bld) [#/Vol] [facility] Nucleated RBC/100 WBC (Bld) [Ratio] 0.0 % /100 WBC [facility] Platelet mean volume (Bld) [Entitic vol] [facility] Comment on above: Unable to Report. Platelets (Bld) [#/Vol] 14 10*3/uL Low [facility] Comment on above: No clot detected. RBC (Bld) [#/Vol] 2.42 10*6/uL Low 3.90 - 5.2 0 m/uL [facility] WBC (Bld) [#/Vol] 3.08 10*3/uL Low [facility] Comprehensive metabolic 2000 panelOrdered By: Rosa Cedillo on 01-16-2024 Albumin [Mass/Vol] 4.0 g/dL 3.9 - 4.9 g/dL [facility] ALP [Catalytic activity/Vol] 159 U/L High 34 - 123 U/L [facility] ALT [Catalytic activity/Vol] 28 U/L 7 - 38 U/L [facility] Anion gap [Moles/Vol] 9 mmol/L 8 - 15 mmol/L [facility] AST [Catalytic activity/Vol] 35 U/L 13 - 35 U/L [facility] Bilirubin [Mass/Vol] 0.5 mg/dL 0.2 - 1 .3 mg/dL [facility] Calcium [Mass/Vol] 9.7 mg/dL 8.5 - 10. 2 mg/dL [facility] Chloride [Moles/Vol] 106 mmol/L 98 - 10 7 mmol/L [facility] CO2 [Moles/Vol] 27 mmol/L 22 - 30 mmol/L [facility] Creatinine [Mass/Vol] 1.04 mg/dL High 0.58 - 0.96 mg/dL [facility] GFR/1.73 sq M.predicted among non-blacks MDRD (S/P/Bld) [Vol rate/Area] 57 mL/min/{1.73_m2} Low - PINF [facility] Comment on above: Estimated Glomerular Filtration Rate (eGFR) is calculated using the 2020 CKD-EPI creatinine equation. This equation utilizes serum creatinine, sex, and age as parameters. The creatinine assay has traceable calibration to isotope dilution-mass spectrometry. Refer to KDIGO guidelines for clinical interpretation. In patients with unstable renal function, e.g. those with acute kidney injury, the eGFR may not accurately reflect actual GFR. Glucose [Mass/Vol] 108 mg/dL High 74 - 99 mg/dL [facility] Comment on above: The [place] [employer] (ADA) provides guidance for cutoff values for fasting glucose and random glucose. The ADA defines fasting as no caloric intake for at least 8 hours. Fasting plasma glucose results between 100 to 125 mg/dL indicate increased risk for diabetes (prediabetes). Fasting plasma glucose results greater than or equal to 126 mg/dL meet the criteria for diagnosis of diabetes. In the absence of unequivocal hyperglycemia, results should be confirmed by repeat testing. In a patient with classic symptoms of hyperglycemia or hyperglycemic crisis, random plasma glucose results greater than or equal to 200 mg/dL meet the criteria for diagnosis of diabetes. Reference: Standards of Medical Care in Diabetes 2016, [place] [employer]. Diabetes Care. 2016.39(Suppl 1). Interpretation and review of laboratory results Abnormal [facility] Potassium [Moles/Vol] 3.8 mmol/L 3.7 - 5.1 mmol/L [facility] Protein [Mass/Vol] 6.5 g/dL 6.3 - 8.0 g/dL [facility] Sodium [Moles/Vol] 142 mmol/L 136 - 144 mmol/L [facility] Urea nitrogen [Mass/Vol] 24 mg/dL High 7 - 21 mg/dL [facility] CA 125 BLDon 12-28-2023 Cancer Ag 125 Qn 26 [arb'U]/mL NINF - 39 U/mL [facility] Comment on above: CA 125 test methodol ogy used is the Electrochemiluminescence Immunoassay by [employer] [facility]. Results obtained with different methods or kits cannot be used interchangeably. The reference interval is based on the 95th percentile of 240 apparently healthy premenopausal and postmenopausal women. At a cutoff value of 65 U/mL, the test sensitivity to distinguish ovarian carcinoma (FIGO stage I to IV) versus benign gynecological disease is 79%, with a specificity of 82%. Reference: Cancer Antigen 125 (CA 125 II) [package insert V 1.0 [place]ien]. [facility], [place], [place] (April 2015) CBC W Auto Differential pane l (Bld)on 12-28-2023 Basophils (Bld) [#/Vol] [facility] Basophils/100 WBC (Bld) 0.0 % [facility] Differential cell count method Nom (Bld) Auto [facility] Eosinophils (Bld) [#/Vol] [facility] Eosinophils/100 WBC (Bld) 0.0 % [facility] Erythrocyte distribution width (RBC) [Ratio] 12.9 % 11.5 - 15.0 % [facility] Hematocrit (Bld) [Volume fraction] 27.7 % Low 36.0 - 46.0 % [facility] Hemoglobin (Bld) [Mass/Vol] 9.3 g/dL Low 11.5 - 15.5 g/dL [facility] Immature granulocytes (Bld) [#/Vol] 0.04 10*3/uL [facility] Immature granulocytes/100 WBC (Bld) 1.4 % [facility] Interpretation and review of laboratory results Abnormal [facility] Lymphocytes (Bld) [#/Vol] 0.42 10*3/uL Low [facility] Lymphocytes/100 WBC (Bld) 14.9 % [facility] MCH (RBC) [Entitic mass] 32.4 pg 26.0 - 34.0 pg [facility] MCHC (RBC) [Mass/Vol] 33.6 g/dL 30.5 - 36.0 g/dL [facility] MCV (RBC) [Entitic vol] 96.5 fL 80.0 - 100.0 fL [facility] Monocytes (Bld) [#/Vol] [facility] Monocytes/100 WBC (Bld) 0.7 % [facility] Neutrophils (Bld) [#/Vol] 2.33 10*3/uL [facility] Neutrophils/100 WBC (Bld) 83.0 % [facility] Nucleated RBC (Bld) [#/Vol] [facility] Nucleated RBC/100 WBC (Bld) [Ratio] 0.0 % /100 WBC [facility] Platelet mean volume (Bld) [Entitic vol] 11.2 fL 9.0 - 12.7 fL [facility] Platelets (Bld) [#/Vol] 77 10*3/uL Low [facility] RBC (Bld) [#/Vol] 2.87 10*6/uL Low 3.90 - 5.2 0 m/uL [facility] WBC (Bld) [#/Vol] 2.81 10*3/uL Low [facility] Cancer Ag 125 Qnon Interpretation and review of laboratory results Normal [facility] CBC W Auto Differential pane l (Bld)on 12-27-2023 Basophils (Bld) [#/Vol] [facility] Basophils/100 WBC (Bld) 0.3 % [facility] Differential cell count method Nom (Bld) Auto [facility] Eosinophils (Bld) [#/Vol] 0.07 10*3/uL [facility] Eosinophils/100 WBC (Bld) 2.0 % [facility] Erythrocyte distribution width (RBC) [Ratio] 13.0 % 11.5 - 15.0 % [facility] Hematocrit (Bld) [Volume fraction] 26.1 % Low 36.0 - 46.0 % [facility] Hemoglobin (Bld) [Mass/Vol] 8.7 g/dL Low 11.5 - 15.5 g/dL [facility] Immature granulocytes (Bld) [#/Vol] 0.03 10*3/uL [facility] Immature granulocytes/100 WBC (Bld) 0.9 % [facility] Interpretation and review of laboratory results Abnormal [facility] Lymphocytes (Bld) [#/Vol] 1.27 10*3/uL [facility] Lymphocytes/100 WBC (Bld) 36.4 % [facility] MCH (RBC) [Entitic mass] 32.3 pg 26.0 - 34.0 pg [facility] MCHC (RBC) [Mass/Vol] 33.3 g/dL 30.5 - 36.0 g/dL [facility] MCV (RBC) [Entitic vol] 97.0 fL 80.0 - 100.0 fL [facility] Monocytes (Bld) [#/Vol] 0.37 10*3/uL [facility] Monocytes/100 WBC (Bld) 10.6 % [facility] Neutrophils (Bld) [#/Vol] 1.74 10*3/uL [facility] Neutrophils/100 WBC (Bld) 49.8 % [facility] Nucleated RBC (Bld) [#/Vol] [facility] Nucleated RBC/100 WBC (Bld) [Ratio] 0.0 % /100 WBC [facility] Platelet mean volume (Bld) [Entitic vol] 11.1 fL 9.0 - 12.7 fL [facility] Platelets (Bld) [#/Vol] 62 10*3/uL Low [facility] Comment on above: No clot detected. RBC (Bld) [#/Vol] 2.69 10*6/uL Low 3.90 - 5.2 0 m/uL [facility] WBC (Bld) [#/Vol] 3.49 10*3/uL Low [facility] Comprehensive metabolic 2000 panelon 12-27-2023 Albumin [Mass/Vol] 4.1 g/dL 3.9 - 4.9 g/dL [facility] ALP [Catalytic activity/Vol] 180 U/L High 34 - 123 U/L [facility] ALT [Catalytic activity/Vol] 33 U/L 7 - 38 U/L [facility] Anion gap [Moles/Vol] 11 mmol/L 8 - 15 mmol/L [facility] AST [Catalytic activity/Vol] 33 U/L 13 - 35 U/L [facility] Bilirubin [Mass/Vol] 0.4 mg/dL 0.2 - 1 .3 mg/dL [facility] Calcium [Mass/Vol] 9.5 mg/dL 8.5 - 10. 2 mg/dL [facility] Chloride [Moles/Vol] 104 mmol/L 98 - 10 7 mmol/L [facility] CO2 [Moles/Vol] 26 mmol/L 22 - 30 mmol/L [facility] Creatinine [Mass/Vol] 1.00 mg/dL High 0.58 - 0.96 mg/dL [facility] GFR/1.73 sq M.predicted among non-blacks MDRD (S/P/Bld) [Vol rate/Area] 60 mL/min/{1.73_m2} - PINF [facility] Comment on above: Estimated Glomerular Filtration Rate (eGFR) is calculated using the 2020 CKD-EPI creatinine equation. This equation utilizes serum creatinine, sex, and age as parameters. The creatinine assay has traceable calibration to isotope dilution-mass spectrometry. Refer to KDIGO guidelines for clinical interpretation. In patients with unstable renal function, e.g. those with acute kidney injury, the eGFR may not accurately reflect actual GFR. Glucose [Mass/Vol] 96 mg/dL 74 - 99 mg/dL [facility] Comment on above: The [place] Di[employer] Association (ADA) provides guidance for cutoff values for fasting glucose and random glucose. The ADA defines fasting as no caloric intake for at least 8 hours. Fasting plasma glucose results between 100 to 125 mg/dL indicate increased risk for diabetes (prediabetes). Fasting plasma glucose results greater than or equal to 126 mg/dL meet the criteria for diagnosis of diabetes. In the absence of unequivocal hyperglycemia, results should be confirmed by repeat testing. In a patient with classic symptoms of hyperglycemia or hyperglycemic crisis, random plasma glucose results greater than or equal to 200 mg/dL meet the criteria for diagnosis of diabetes. Reference: Standards of Medical Care in Diabetes 2016, [place] [employer]. Diabetes Care. 2016.39(Suppl 1). Interpretation and review of laboratory results Abnormal [facility] Potassium [Moles/Vol] 3.9 mmol/L 3.7 - 5.1 mmol/L [facility] Protein [Mass/Vol] 6.6 g/dL 6.3 - 8.0 g/dL [facility] Sodium [Moles/Vol] 141 mmol/L 136 - 144 mmol/L [facility] Urea nitrogen [Mass/Vol] 30 mg/dL High 7 - 21 mg/dL [facility] US Abdomen RUQon 12-06-2023 IMPRESSION: The live r is somewhat coarse and heterogeneous in appearance Otherwise normal sonographic appearance of the right upper quadrant. The gallbladder is incompletely distended. Common duct is normal in caliber Exam is limited by overlying bowel gas Electro Mechanical Engineer: PSCB Transcribe Date/Time: Dec 06 2023 2:21P Dictated by : SHIV FIELDS MD This examination was interpreted and the report reviewed and electronically signed by: SHIV FIELDS MD on Dec 06 2023 2:24PM [facility] DIVISION OF RADIOLOGY * * *Final Report* * * DATE OF EXAM: Dec 06 2023 2:17PM WRU 1032 - US ABD RIGHT UPPER QUADRANT / PROCEDURE REASON: Elevated LFTs * * * * Physician Interpretation * * * * EXAMINATION: RIGHT UPPER QUADRANT ULTRASOUND CLINICAL HISTORY: Elevated LFTs. Ovarian carcinoma. TECHNIQUE: Sonography of the right upper quadrant was performed. Images were obtained and stored in a permanent archive. MQ: URUQ_2 COMPARISON: CT scans of 10/04/2023. RESULT: Pancreas: Normal sonographic appearance. Portions obscured: tail Liver: Portions of the right and left lobe are not ideally seen due to overlying bowel gas Echotexture: Coarse and heterogeneous Echogenicity: Normal Surface contour: Smooth Lesions: None. Biliary: No intrahepatic biliary duct dilation. CBD: 0.3 cm at the hilum. Gallbladder: Incompletely distended. -Contents: No cholelithiasis -Wall: Normal -Other: No pericholecystic fluid. Right Kidney: No hydronephrosis. Ascites: None. DIVISION OF RADIOLOGY Provider, Toya Grant - 12/06/2023 * * *Final Report* * * DATE OF EXAM: Dec 06 2023 2:17PM [facility]U 1032 - US ABD RIGHT UPPER QUADRANT / PROCEDURE REASON: Elevated LFTs * * * * Physician Interpretation * * * * EXAMINATION: RIGHT UPPER QUADRANT ULTRASOUND CLINICAL HISTORY: Elevated LFTs. Ovarian carcinoma. TECHNIQUE: Sonography of the right upper quadrant was performed. Images were obtained and stored in a permanent archive. MQ: URUQ_2 COMPARISON: CT scans of 10/04/2023. RESULT: Pancreas: Normal sonographic appearance. Portions obscured: tail Liver: Portions of the right and left lobe are not ideally seen due to overlying bowel gas Echotexture: Coarse and heterogeneous Echogenicity: Normal Surface contour: Smooth Lesions: None. Biliary: No intrahepatic biliary duct dilation. CBD: 0.3 cm at the hilum. Gallbladder: Incompletely distended. -Contents: No cholelithiasis -Wall: Normal -Other: No pericholecystic fluid. Right Kidney: No hydronephrosis. Ascites: None. IMPRESSION IMPRESSION: The liver is somewhat coarse and heterogeneous in appearance Otherwise normal sonographic appearance of the right upper quadrant. The gallbladder is incompletely distended. Common duct is normal in caliber Exam is limited by overlying bowel gas Electro Mechanical Engineer: PAO Transcribe Date/Time: Dec 06 2023 2:21P Dictated by : SHIV FIELDS MD This examination was interpreted and the report reviewed and electronically signed by: SHIV FIELDS MD on Dec 06 2023 2:24PM [facility] Radiology Study observation (narrative) [facility] US Abdomen RUQOrdered By: Andree tomas Provider on 12-06-2023 [facility] CBC W Auto Differential pane l (Bld)on 12-05-2023 Basophils (Bld) [#/Vol] 0.03 10*3/uL [facility] Basophils/100 WBC (Bld) 0.5 % [facility] Differential cell count method Nom (Bld) Auto [facility] Eosinophils (Bld) [#/Vol] 0.37 10*3/uL [facility] Eosinophils/100 WBC (Bld) 5.6 % [facility] Erythrocyte distribution width (RBC) [Ratio] 13.5 % 11.5 - 15.0 % [facility] Hematocrit (Bld) [Volume fraction] 31.6 % Low 36.0 - 46.0 % [facility] Hemoglobin (Bld) [Mass/Vol] 10.4 g/dL Low 11.5 - 15.5 g/dL [facility] Immature granulocytes (Bld) [#/Vol] NINF [facility] Immature granulocytes/100 WBC (Bld) 0.3 % [facility] Interpretation and review of laboratory results Abnormal [facility] Lymphocytes (Bld) [#/Vol] 1.51 10*3/uL [facility] Lymphocytes/100 WBC (Bld) 22.8 % [facility] MCH (RBC) [Entitic mass] 32.7 pg 26.0 - 34.0 pg [facility] MCHC (RBC) [Mass/Vol] 32.9 g/dL 30.5 - 36.0 g/dL [facility] MCV (RBC) [Entitic vol] 99.4 fL 80.0 - 100.0 fL [facility] Monocytes (Bld) [#/Vol] 0.48 10*3/uL [facility] Monocytes/100 WBC (Bld) 7.3 % [facility] Neutrophils (Bld) [#/Vol] 4.21 10*3/uL [facility] Neutrophils/100 WBC (Bld) 63.5 % [facility] Nucleated RBC (Bld) [#/Vol] NINF [facility] Nucleated RBC/100 WBC (Bld) [Ratio] 0.0 % /100 WBC [facility] Platelet mean volume (Bld) [Entitic vol] 10.4 fL 9.0 - 12.7 fL [facility] Platelets (Bld) [#/Vol] 199 10*3/uL [facility] RBC (Bld) [#/Vol] 3.18 10*6/uL Low 3.90 - 5.2 0 m/uL [facility] WBC (Bld) [#/Vol] 6.62 10*3/uL [facility] Comprehensive metabolic 2000 panelOrdered By: Rosa Cedillo on 12-05-2023 Albumin [Mass/Vol] 4.2 g/dL 3.9 - 4.9 g/dL [facility] ALP [Catalytic activity/Vol] 400 U/L High 34 - 123 U/L [facility] ALT [Catalytic activity/Vol] 69 U/L High 7 - 38 U/L [facility] Anion gap [Moles/Vol] 7 mmol/L Low 9 - 18 mmol/L [facility] AST [Catalytic activity/Vol] 53 U/L High 13 - 35 U/L [facility] Bilirubin [Mass/Vol] 0.7 mg/dL 0.2 - 1 .3 mg/dL [facility] Calcium [Mass/Vol] 9.9 mg/dL 8.5 - 10. 2 mg/dL [facility] Chloride [Moles/Vol] 103 mmol/L 97 - 10 5 mmol/L [facility] CO2 [Moles/Vol] 29 mmol/L 22 - 30 mmol/L [facility] Creatinine [Mass/Vol] 0.99 mg/dL High 0.58 - 0.96 mg/dL [facility] GFR/1.73 sq M.predicted among non-blacks MDRD (S/P/Bld) [Vol rate/Area] 61 mL/min/{1.73_m2} - PINF [facility] Comment on above: Estimated Glomerular Filtration Rate (eGFR) is calculated using the 2020 CKD-EPI creatinine equation. This equation utilizes serum creatinine, sex, and age as parameters. The creatinine assay has traceable calibration to isotope dilution-mass spectrometry. Refer to KDIGO guidelines for clinical interpretation. In patients with unstable renal function, e.g. those with acute kidney injury, the eGFR may not accurately reflect actual GFR. Glucose [Mass/Vol] 121 mg/dL High 74 - 99 mg/dL [facility] Comment on above: The [place] Di[employer] Association (ADA) provides guidance for cutoff values for fasting glucose and random glucose. The ADA defines fasting as no caloric intake for at least 8 hours. Fasting plasma glucose results between 100 to 125 mg/dL indicate increased risk for diabetes (prediabetes). Fasting plasma glucose results greater than or equal to 126 mg/dL meet the criteria for diagnosis of diabetes. In the absence of unequivocal hyperglycemia, results should be confirmed by repeat testing. In a patient with classic symptoms of hyperglycemia or hyperglycemic crisis, random plasma glucose results greater than or equal to 200 mg/dL meet the criteria for diagnosis of diabetes. Reference: Standards of Medical Care in Diabetes 2016, [place] [employer]. Diabetes Care. 2016.39(Suppl 1). Interpretation and review of laboratory results Abnormal [facility] Potassium [Moles/Vol] 4.0 mmol/L 3.7 - 5.1 mmol/L [facility] Protein [Mass/Vol] 7.0 g/dL 6.3 - 8.0 g/dL [facility] Sodium [Moles/Vol] 139 mmol/L 136 - 144 mmol/L [facility] Urea nitrogen [Mass/Vol] 35 mg/dL High 7 - 21 mg/dL [facility] CA 125 BLDon 11-18-2023 Cancer Ag 125 Qn 107 [arb'U]/mL High NINF - 39 U/mL [facility] Comment on above: CA 125 test methodol ogy used is the Electrochemiluminescence Immunoassay by [employer] [facility]. Results obtained with different methods or kits cannot be used interchangeably. The reference interval is based on the 95th percentile of 240 apparently healthy premenopausal and postmenopausal women. At a cutoff value of 65 U/mL, the test sensitivity to distinguish ovarian carcinoma (FIGO stage I to IV) versus benign gynecological disease is 79%, with a specificity of 82%. Reference: Cancer Antigen 125 (CA 125 II) [package insert V 1.0 [place]ien]. [facility], [place], [place] (April 2015) CBC W Auto Differential pane l (Bld)on 11-18-2023 Basophils (Bld) [#/Vol] 0.04 10*3/uL [facility] Basophils/100 WBC (Bld) 0.7 % [facility] Differential cell count method Nom (Bld) Auto [facility] Eosinophils (Bld) [#/Vol] 0.71 10*3/uL High [facility] Eosinophils/100 WBC (Bld) 13.2 % [facility] Erythrocyte distribution width (RBC) [Ratio] 14.9 % 11.5 - 15.0 % [facility] Hematocrit (Bld) [Volume fraction] 30.6 % Low 36.0 - 46.0 % [facility] Hemoglobin (Bld) [Mass/Vol] 9.9 g/dL Low 11.5 - 15.5 g/dL [facility] Immature granulocytes (Bld) [#/Vol] [facility] Immature granulocytes/100 WBC (Bld) 0.2 % [facility] Interpretation and review of laboratory results Abnormal [facility] Lymphocytes (Bld) [#/Vol] 1.18 10*3/uL [facility] Lymphocytes/100 WBC (Bld) 22.0 % [facility] MCH (RBC) [Entitic mass] 32.6 pg 26.0 - 34.0 pg [facility] MCHC (RBC) [Mass/Vol] 32.4 g/dL 30.5 - 36.0 g/dL [facility] MCV (RBC) [Entitic vol] 100.7 fL High 80.0 - 100.0 fL [facility] Monocytes (Bld) [#/Vol] 0.48 10*3/uL NINF [facility] Monocytes/100 WBC (Bld) 9.0 % [facility] Neutrophils (Bld) [#/Vol] 2.94 10*3/uL [facility] Neutrophils/100 WBC (Bld) 54.9 % [facility] Nucleated RBC (Bld) [#/Vol] NINF [facility] Nucleated RBC/100 WBC (Bld) [Ratio] 0.0 % /100 WBC [facility] Platelet mean volume (Bld) [Entitic vol] 9.6 fL 9.0 - 12.7 fL [facility] Platelets (Bld) [#/Vol] 263 10*3/uL [facility] RBC (Bld) [#/Vol] 3.04 10*6/uL Low 3.90 - 5.2 0 m/uL [facility] WBC (Bld) [#/Vol] 5.36 10*3/uL [facility] Cancer Ag 125 Qnon 4 Interpretation and review of laboratory results Abnormal [facility] Comprehensive metabolic 2000 panelOrdered By: Sophia Hall on 11-18-2023 Albumin [Mass/Vol] 4.0 g/dL 3.9 - 4.9 g/dL [facility] ALP [Catalytic activity/Vol] 353 U/L High 34 - 123 U/L [facility] ALT [Catalytic activity/Vol] 29 U/L 7 - 38 U/L [facility] Anion gap [Moles/Vol] 10 mmol/L 9 - 18 mmol/L [facility] AST [Catalytic activity/Vol] 31 U/L 13 - 35 U/L [facility] Bilirubin [Mass/Vol] 0.5 mg/dL 0.2 - 1 .3 mg/dL [facility] Calcium [Mass/Vol] 10.1 mg/dL 8.5 - 10. 2 mg/dL [facility] Chloride [Moles/Vol] 104 mmol/L 97 - 10 5 mmol/L [facility] CO2 [Moles/Vol] 29 mmol/L 22 - 30 mmol/L [facility] Creatinine [Mass/Vol] 1.02 mg/dL High 0.58 - 0.96 mg/dL [facility] GFR/1.73 sq M.predicted among non-blacks MDRD (S/P/Bld) [Vol rate/Area] 59 mL/min/{1.73_m2} Low - PINF [facility] Comment on above: Estimated Glomerular Filtration Rate (eGFR) is calculated using the 2020 CKD-EPI creatinine equation. This equation utilizes serum creatinine, sex, and age as parameters. The creatinine assay has traceable calibration to isotope dilution-mass spectrometry. Refer to KDIGO guidelines for clinical interpretation. In patients with unstable renal function, e.g. those with acute kidney injury, the eGFR may not accurately reflect actual GFR. Glucose [Mass/Vol] 116 mg/dL High 74 - 99 mg/dL [facility] Comment on above: The [place] Di[employer] Association (ADA) provides guidance for cutoff values for fasting glucose and random glucose. The ADA defines fasting as no caloric intake for at least 8 hours. Fasting plasma glucose results between 100 to 125 mg/dL indicate increased risk for diabetes (prediabetes). Fasting plasma glucose results greater than or equal to 126 mg/dL meet the criteria for diagnosis of diabetes. In the absence of unequivocal hyperglycemia, results should be confirmed by repeat testing. In a patient with classic symptoms of hyperglycemia or hyperglycemic crisis, random plasma glucose results greater than or equal to 200 mg/dL meet the criteria for diagnosis of diabetes. Reference: Standards of Medical Care in Diabetes 2016, [place] [employer]. Diabetes Care. 2016.39(Suppl 1). Interpretation and review of laboratory results Abnormal [facility] Potassium [Moles/Vol] 4.3 mmol/L 3.7 - 5.1 mmol/L [facility] Protein [Mass/Vol] 7.0 g/dL 6.3 - 8.0 g/dL [facility] Sodium [Moles/Vol] 143 mmol/L 136 - 144 mmol/L [facility] Urea nitrogen [Mass/Vol] 34 mg/dL High 7 - 21 mg/dL [facility] CBC W Auto Differential pane l (Bld)on 10-10-2023 Basophils (Bld) [#/Vol] <0.11 k/uL [facility] Basophils/100 WBC (Bld) 0.2 % [facility] Differential cell count method Nom (Bld) Auto [facility] Eosinophils (Bld) [#/Vol] 0.04 10*3/uL <0.46 k/uL [facility] Eosinophils/100 WBC (Bld) 1.0 % [facility] Erythrocyte distribution width (RBC) [Ratio] 20.8 % High 11.5 - 15.0 % [facility] Hematocrit (Bld) [Volume fraction] 24.0 % Low 36.0 - 46.0 % [facility] Hemoglobin (Bld) [Mass/Vol] 8.2 g/dL Low 11.5 - 15.5 g/dL [facility] Immature granulocytes (Bld) [#/Vol] 0.08 10*3/uL <0.10 k/uL [facility] Immature granulocytes/100 WBC (Bld) 1.9 % [facility] Lymphocytes (Bld) [#/Vol] 1.20 10*3/uL 1.00 - 4.00 k/uL [facility] Lymphocytes/100 WBC (Bld) 28.8 % [facility] MCH (RBC) [Entitic mass] 32.5 pg 26.0 - 34.0 pg [facility] MCHC (RBC) [Mass/Vol] 34.2 g/dL 30.5 - 36.0 g/dL [facility] MCV (RBC) [Entitic vol] 95.2 fL 80.0 - 100.0 fL [facility] Monocytes (Bld) [#/Vol] 0.29 10*3/uL <0.87 k/uL [facility] Monocytes/100 WBC (Bld) 7.0 % [facility] Neutrophils (Bld) [#/Vol] 2.54 10*3/uL 1.45 - 7.50 k/uL [facility] Neutrophils/100 WBC (Bld) 61.1 % [facility] Nucleated RBC (Bld) [#/Vol] <0.01 k/uL [facility] Nucleated RBC/100 WBC (Bld) [Ratio] 0.0 /100 WBC [facility] Platelet mean volume (Bld) [Entitic vol] 11.2 fL 9.0 - 12.7 fL [facility] Platelets (Bld) [#/Vol] 45 10*3/uL Low 150 - 400 k/uL [facility] RBC (Bld) [#/Vol] 2.52 10*6/uL Low 3.90 - 5.2 0 m/uL [facility] WBC (Bld) [#/Vol] 4.16 10*3/uL 3.70 - 11.00 k/uL [facility] CA 125 BLDon 10-07-2023 Cancer Ag 125 Qn 96 [arb'U]/mL High <39 U/mL [facility] CBC W Auto Differential pane l (Bld)on 10-07-2023 Anisocytosis Ql (Bld) Present [facility] Basophilic stippling LM Ql (Bld) Present [facility] Basophils (Bld) [#/Vol] 0.00 10*3/uL <0.11 k/uL [facility] Basophils/100 WBC (Bld) 0.0 % [facility] Dacrocytes LM Ql (Bld) Few Cl [facility] Differential cell count method Nom (Bld) Manual [facility] Eosinophils (Bld) [#/Vol] 0.19 10*3/uL <0.46 k/uL [facility] Eosinophils/100 WBC (Bld) 8.0 % [facility] Erythrocyte distribution width (RBC) [Ratio] 20.1 % High 11.5 - 15.0 % [facility] Hematocrit (Bld) [Volume fraction] 23.2 % Low 36.0 - 46.0 % [facility] Hemoglobin (Bld) [Mass/Vol] 7.6 g/dL Low 11.5 - 15.5 g/dL [facility] Lymphocytes (Bld) [#/Vol] 1.10 10*3/uL 1.00 - 4.00 k/uL [facility] Lymphocytes/100 WBC (Bld) 47.0 % [facility] MCH (RBC) [Entitic mass] 31.3 pg 26.0 - 34.0 pg [facility] MCHC (RBC) [Mass/Vol] 32.8 g/dL 30.5 - 36.0 g/dL [facility] MCV (RBC) [Entitic vol] 95.5 fL 80.0 - 100.0 fL [facility] Monocytes (Bld) [#/Vol] 0.40 10*3/uL <0.87 k/uL [facility] Monocytes/100 WBC (Bld) 17.0 % [facility] Neutrophils (Bld) [#/Vol] 0.66 10*3/uL Low 1.45 - 7.50 k/uL [facility] Neutrophils/100 WBC (Bld) 28.0 % [facility] Nucleated RBC (Bld) [#/Vol] <0.01 k/uL [facility] Nucleated RBC/100 WBC (Bld) [Ratio] 0.0 /100 WBC [facility] Ovalocytes LM Ql (Bld) Few Cl [facility] Platelet mean volume (Bld) [Entitic vol] 12.6 fL 9.0 - 12.7 fL [facility] Platelets (Bld) [#/Vol] 18 10*3/uL Low 150 - 400 k/uL [facility] Platelets Estimate (Bld) [#/Vol] Decreased [facility] RBC (Bld) [#/Vol] 2.43 10*6/uL Low 3.90 - 5.2 0 m/uL [facility] RBC Fragments Few Abnormal None Seen [facility] Red Cell Morph Reviewed: see result s of individual morphologies [facility] WBC (Bld) [#/Vol] 2.35 10*3/uL Low 3.70 - 11.00 k/uL [facility] Comprehensive metabolic 2000 panelon 10-07-2023 Albumin [Mass/Vol] 4.0 g/dL 3.9 - 4.9 g/dL [facility] ALP [Catalytic activity/Vol] 259 U/L High 34 - 123 U/L [facility] ALT [Catalytic activity/Vol] 50 U/L High 7 - 38 U/L [facility] Anion gap [Moles/Vol] 8 mmol/L Low 9 - 18 mmol/L [facility] AST [Catalytic activity/Vol] 42 U/L High 13 - 35 U/L [facility] Bilirubin [Mass/Vol] 0.5 mg/dL 0.2 - 1 .3 mg/dL [facility] Calcium [Mass/Vol] 9.6 mg/dL 8.5 - 10. 2 mg/dL [facility] Chloride [Moles/Vol] 104 mmol/L 97 - 10 5 mmol/L [facility] CO2 [Moles/Vol] 27 mmol/L 22 - 30 mmol/L [facility] Creatinine [Mass/Vol] 0.93 mg/dL 0.58 - 0.96 mg/dL [facility] Estimated Glomerular Filtration Rate 65 mL/min/1.73m >=60 mL/min/1.73 m [facility] Glucose [Mass/Vol] 108 mg/dL High 74 - 99 mg/dL [facility] Potassium [Moles/Vol] 4.2 mmol/L 3.7 - 5.1 mmol/L [facility] Protein [Mass/Vol] 6.6 g/dL 6.3 - 8.0 g/dL [facility] Sodium [Moles/Vol] 139 mmol/L 136 - 144 mmol/L [facility] Urea nitrogen [Mass/Vol] 33 mg/dL High 7 - 21 mg/dL [facility] CBC W Auto Differential pane l (Bld)on 09-20-2023 Basophils (Bld) [#/Vol] <0.11 k/uL [facility] Basophils/100 WBC (Bld) 0.0 % [facility] Differential cell count method Nom (Bld) Auto [facility] Eosinophils (Bld) [#/Vol] <0.46 k/uL [facility] Eosinophils/100 WBC (Bld) 0.0 % [facility] Erythrocyte distribution width (RBC) [Ratio] 19.7 % High 11.5 - 15.0 % [facility] Hematocrit (Bld) [Volume fraction] 27.0 % Low 36.0 - 46.0 % [facility] Hemoglobin (Bld) [Mass/Vol] 9.0 g/dL Low 11.5 - 15.5 g/dL [facility] Immature granulocytes (Bld) [#/Vol] 0.03 10*3/uL <0.10 k/uL [facility] Immature granulocytes/100 WBC (Bld) 0.7 % [facility] Lymphocytes (Bld) [#/Vol] 0.48 10*3/uL Low 1.00 - 4.00 k/uL [facility] Lymphocytes/100 WBC (Bld) 11.1 % [facility] MCH (RBC) [Entitic mass] 30.8 pg 26.0 - 34.0 pg [facility] MCHC (RBC) [Mass/Vol] 33.3 g/dL 30.5 - 36.0 g/dL [facility] MCV (RBC) [Entitic vol] 92.5 fL 80.0 - 100.0 fL [facility] Monocytes (Bld) [#/Vol] <0.87 k/uL [facility] Monocytes/100 WBC (Bld) 0.5 % [facility] Neutrophils (Bld) [#/Vol] 3.80 10*3/uL 1.45 - 7.50 k/uL [facility] Neutrophils/100 WBC (Bld) 87.7 % [facility] Nucleated RBC (Bld) [#/Vol] <0.01 k/uL [facility] Nucleated RBC/100 WBC (Bld) [Ratio] 0.0 /100 WBC [facility] Platelet mean volume (Bld) [Entitic vol] 10.7 fL 9.0 - 12.7 fL [facility] Platelets (Bld) [#/Vol] 109 10*3/uL Low 150 - 400 k/uL [facility] RBC (Bld) [#/Vol] 2.92 10*6/uL Low 3.90 - 5.2 0 m/uL [facility] WBC (Bld) [#/Vol] 4.33 10*3/uL 3.70 - 11.00 k/uL [facility] CBC W Auto Differential pane l (Bld)on 09-16-2023 Basophils (Bld) [#/Vol] <0.11 k/uL [facility] Basophils/100 WBC (Bld) 0.4 % [facility] Differential cell count method Nom (Bld) Auto [facility] Eosinophils (Bld) [#/Vol] 0.10 10*3/uL <0.46 k/uL [facility] Eosinophils/100 WBC (Bld) 3.8 % [facility] Erythrocyte distribution width (RBC) [Ratio] 19.3 % High 11.5 - 15.0 % [facility] Hematocrit (Bld) [Volume fraction] 25.3 % Low 36.0 - 46.0 % [facility] Hemoglobin (Bld) [Mass/Vol] 8.5 g/dL Low 11.5 - 15.5 g/dL [facility] Immature granulocytes (Bld) [#/Vol] <0.10 k/uL [facility] Immature granulocytes/100 WBC (Bld) 0.4 % [facility] Lymphocytes (Bld) [#/Vol] 1.16 10*3/uL 1.00 - 4.00 k/uL [facility] Lymphocytes/100 WBC (Bld) 44.6 % [facility] MCH (RBC) [Entitic mass] 30.8 pg 26.0 - 34.0 pg [facility] MCHC (RBC) [Mass/Vol] 33.6 g/dL 30.5 - 36.0 g/dL [facility] MCV (RBC) [Entitic vol] 91.7 fL 80.0 - 100.0 fL [facility] Monocytes (Bld) [#/Vol] 0.51 10*3/uL <0.87 k/uL [facility] Monocytes/100 WBC (Bld) 19.6 % [facility] Neutrophils (Bld) [#/Vol] 0.81 10*3/uL Low 1.45 - 7.50 k/uL [facility] Neutrophils/100 WBC (Bld) 31.2 % [facility] Nucleated RBC (Bld) [#/Vol] <0.01 k/uL [facility] Nucleated RBC/100 WBC (Bld) [Ratio] 0.0 /100 WBC [facility] Platelet mean volume (Bld) [Entitic vol] 10.9 fL 9.0 - 12.7 fL [facility] Platelets (Bld) [#/Vol] 66 10*3/uL Low 150 - 400 k/uL [facility] RBC (Bld) [#/Vol] 2.76 10*6/uL Low 3.90 - 5.2 0 m/uL [facility] WBC (Bld) [#/Vol] 2.60 10*3/uL Low 3.70 - 11.00 k/uL [facility] Comprehensive metabolic 2000 panelon 09-16-2023 Albumin [Mass/Vol] 3.8 g/dL Low 3.9 - 4.9 g/dL [facility] ALP [Catalytic activity/Vol] 258 U/L High 34 - 123 U/L [facility] ALT [Catalytic activity/Vol] 39 U/L High 7 - 38 U/L [facility] Anion gap [Moles/Vol] 8 mmol/L Low 9 - 18 mmol/L [facility] AST [Catalytic activity/Vol] 35 U/L 13 - 35 U/L [facility] Bilirubin [Mass/Vol] 0.5 mg/dL 0.2 - 1 .3 mg/dL [facility] Calcium [Mass/Vol] 9.3 mg/dL 8.5 - 10. 2 mg/dL [facility] Chloride [Moles/Vol] 101 mmol/L 97 - 10 5 mmol/L [facility] CO2 [Moles/Vol] 28 mmol/L 22 - 30 mmol/L [facility] Creatinine [Mass/Vol] 1.02 mg/dL High 0.58 - 0.96 mg/dL [facility] Estimated Glomerular Filtration Rate 59 mL/min/1.73m Low >=60 mL/min/1.73 m [facility] Glucose [Mass/Vol] 98 mg/dL 74 - 99 mg/dL [facility] Potassium [Moles/Vol] 4.2 mmol/L 3.7 - 5.1 mmol/L [facility] Protein [Mass/Vol] 6.1 g/dL Low 6.3 - 8.0 g/dL [facility] Sodium [Moles/Vol] 137 mmol/L 136 - 144 mmol/L [facility] Urea nitrogen [Mass/Vol] 24 mg/dL High 7 - 21 mg/dL [facility] CA 125 BLDon 08-26-2023 Cancer Ag 125 Qn 303 [arb'U]/mL High <39 U/mL [facility] CBC W Auto Differential pane l (Bld)on 08-26-2023 Basophils (Bld) [#/Vol] 0.03 10*3/uL <0.11 k/uL [facility] Basophils/100 WBC (Bld) 0.6 % [facility] Differential cell count method Nom (Bld) Auto [facility] Eosinophils (Bld) [#/Vol] 0.19 10*3/uL <0.46 k/uL [facility] Eosinophils/100 WBC (Bld) 3.5 % [facility] Erythrocyte distribution width (RBC) [Ratio] 16.1 % High 11.5 - 15.0 % [facility] Hematocrit (Bld) [Volume fraction] 28.5 % Low 36.0 - 46.0 % [facility] Hemoglobin (Bld) [Mass/Vol] 9.1 g/dL Low 11.5 - 15.5 g/dL [facility] Immature granulocytes (Bld) [#/Vol] 0.08 10*3/uL <0.10 k/uL [facility] Immature granulocytes/100 WBC (Bld) 1.5 % [facility] Lymphocytes (Bld) [#/Vol] 1.33 10*3/uL 1.00 - 4.00 k/uL [facility] Lymphocytes/100 WBC (Bld) 24.5 % [facility] MCH (RBC) [Entitic mass] 29.3 pg 26.0 - 34.0 pg [facility] MCHC (RBC) [Mass/Vol] 31.9 g/dL 30.5 - 36.0 g/dL [facility] MCV (RBC) [Entitic vol] 91.6 fL 80.0 - 100.0 fL [facility] Monocytes (Bld) [#/Vol] 0.55 10*3/uL <0.87 k/uL [facility] Monocytes/100 WBC (Bld) 10.1 % [facility] Neutrophils (Bld) [#/Vol] 3.24 10*3/uL 1.45 - 7.50 k/uL [facility] Neutrophils/100 WBC (Bld) 59.8 % [facility] Nucleated RBC (Bld) [#/Vol] <0.01 k/uL [facility] Nucleated RBC/100 WBC (Bld) [Ratio] 0.0 /100 WBC [facility] Platelet mean volume (Bld) [Entitic vol] 10.7 fL 9.0 - 12.7 fL [facility] Platelets (Bld) [#/Vol] 163 10*3/uL 150 - 400 k/uL [facility] RBC (Bld) [#/Vol] 3.11 10*6/uL Low 3.90 - 5.2 0 m/uL [facility] WBC (Bld) [#/Vol] 5.42 10*3/uL 3.70 - 11.00 k/uL [facility] Comprehensive metabolic 2000 panelon 08-26-2023 Albumin [Mass/Vol] 3.8 g/dL Low 3.9 - 4.9 g/dL [facility] ALP [Catalytic activity/Vol] 351 U/L High 34 - 123 U/L [facility] ALT [Catalytic activity/Vol] 32 U/L 7 - 38 U/L [facility] Anion gap [Moles/Vol] 9 mmol/L 9 - 18 mmol/L [facility] AST [Catalytic activity/Vol] 38 U/L High 13 - 35 U/L [facility] Bilirubin [Mass/Vol] 0.3 mg/dL 0.2 - 1 .3 mg/dL [facility] Calcium [Mass/Vol] 9.3 mg/dL 8.5 - 10. 2 mg/dL [facility] Chloride [Moles/Vol] 101 mmol/L 97 - 10 5 mmol/L [facility] CO2 [Moles/Vol] 28 mmol/L 22 - 30 mmol/L [facility] Creatinine [Mass/Vol] 1.02 mg/dL High 0.58 - 0.96 mg/dL [facility] Estimated Glomerular Filtration Rate 59 mL/min/1.73m Low >=60 mL/min/1.73 m [facility] Glucose [Mass/Vol] 122 mg/dL High 74 - 99 mg/dL [facility] Potassium [Moles/Vol] 4.3 mmol/L 3.7 - 5.1 mmol/L [facility] Protein [Mass/Vol] 6.3 g/dL 6.3 - 8.0 g/dL [facility] Sodium [Moles/Vol] 138 mmol/L 136 - 144 mmol/L [facility] Urea nitrogen [Mass/Vol] 26 mg/dL High 7 - 21 mg/dL [facility] BRIEF OP NOTon 08-04-2023 BRIEF OP NOT HNO ID: [id number] Author: TAMEKA STEPHENSON MD Service: Interventional Radiology Author Type: Physician Type: Brief Op Note Filed: 08/04/2023 11:10 Note Text: BRIEF OPERATIVE / PROCEDURE NOTE LOG ID: [id number] SURGERY/PROCEDURE DATE: 08/04/2023 INCISION/PROCEDURE START TIME: 10:52 AM INCISION CLOSE/PROCEDURE END TIME: 11:06 AM SURGEON(S)/PROCEDURALIST(S ) AND PLASTIC MAKER(S): Surgeon(s) and Role: * Tameka Stephenson MD - Primary No Additional Staff SURGERY/PROCEDURE(S): Mediport placement. ANESTHESIA: Procedural Sedation FINDINGS: Right chest mediport placed with right IJ venous access. ESTIMATED BLOOD LOSS: 3 mL SPECIMENS: None COMPLICATIONS: None CLOSURE TECHNIQUE: Primary PRE-OP/PRE-PROCEDURE DIAGNOSIS: Ovarian cancer. POST-OP/POST-PROCEDURE DIAGNOSIS: Same as Preop SIGNATURE: Tameka Stephenson MD PATIENT NAME: Gasper Reed DATE: August 04, 2023 TIME: 11:09 AM [facility] HISTORY PHYSICALon HISTORY PHYSICAL HNO ID: [id number] Author: TAMEKA STEPHENSON MD Service: Interventional Radiology Author Type: Physician Type: H&P Filed: 08/04/2023 10:39 Note Text: UPDATED PROCEDURAL SEDATION HISTORY AND PHYSICAL EXAMINATION SERVICE DATE: 08/04/2023 SERVICE TIME: 10:38 AM PHYSICAL EXAM MUST BE COMPLETED ON ADMISSION PROCEDURE: Mediport placement Procedure Indications: Ovarian cancer The History and Physical (completed in the past 30 days) has been reviewed and the patient has been examined. The contents accurately reflect the patient's condition with the following additions or revisions since the HANDP was completed. ASA Class: ASA Class:: Patient with severe systemic disease Examination indicates no changes. AIRWAY: Airway Visualization of Uvula: Yes Mouth opening greater than 2 fingerbreadths: Yes Neck Full Range of Motion: Yes LUNGS: Lungs clear to auscultation CARDIAC: Regular rhythm,Regular rate Provisional Diagnosis/Treatment Plan: Ovarian cancer, for mediport placement SEDATION GOAL: Moderate This HANDP can be found in the Electronic Medical Record dated 07/10/2024. SIGNATURE: Tameka Stephenson MD PATIENT NAME: Gasper Reed DATE: August 04, 2023 TIME: 10:38 AM [facility] IR CENTRALLY INSERTED TUNN P Yessenia 08-04-2023 IR CENTRALLY INSERTED TUNN PORT * * *Final Report* * * DATE OF EXAM: Aug 04 2023 11:20AM [id number] - IR CENTRALLY INSERTED TUNN PORT / PROCEDURE REASON: Ovarian cancer on left (HCC) [C56.2] * * * * Physician Interpretation * * * * PROCEDURE: VENOUS PORT PLACEMENT Procedural Personnel Attending physician(s): Tameka Stephenson M.D. Fellow physician(s): None Resident physician(s): None Advanced practice provider(s): None Medical Student(s): None Pre-procedure diagnosis: Ovarian cancer Post-procedure diagnosis: Same Indication: Administration of chemotherapy Additional clinical history: None PROCEDURE SUMMARY: - Venous access with ultrasound guidance - Tunneled port insertion under fluoroscopic guidance - Additional procedure(s): None PROCEDURE DETAILS: Pre-procedure History and imaging of central venous access reviewed (QCDR): Yes Consent: Risks, benefits, treatment options, potential complications and personnel to be involved were discussed (including the risks of radiation exposure, contrast and anesthesia administration, and any equipment needed for the procedure to ensure best possible outcome) with the patient and all questions were answered and consent was obtained prior to procedure. Transfusion of blood products: No Medication reconciliation: The patient's medications and allergies were reviewed in the electronic medical record and reconciled to the proposed procedure/treatment. Leslie-procedure discussion: The appropriate elements of the pre-procedure discussion, safety check list and sign-out were performed. Time out: A time out was performed immediately prior to procedure start with the nursing and interventional team, correctly identifying the name, date of , procedure, anatomy (including marking of site and side if applicable), patient position, procedure consent form, relevant diagnostic and radiology test results, antibiotic administration if applicable, safety precautions, and procedure-specific equipment needs. Start of procedure: 1040 End of procedure: 1110 Patient position: Supine Antibiotics: None Antibiotic infusion start time: N/A Prophylactic antibiotic administered: None Preparation (MIPS): The site was prepared and draped using all elements of maximal sterile barrier technique including sterile gloves, sterile gown, cap, mask, large sterile sheet, sterile ultrasound probe cover, hand hygiene and cutaneous antisepsis with 2% chlorhexidine. Medical reason for site preparation exception (MIPS): Not applicable FLUOROSCOPIC RADIATION SUMMARY: Plane A, Air Kerma: 1.0 mGy Fluoro Time: 0:12 min:sec Radiation dose exceed 5 Gy: No If radiation dose exceeded 5 Gy, was counseling and instructional brochure provided: N/A Anesthesia/sedation Level of anesthesia/sedation: Moderate sedation (conscious sedation) Anesthesia/sedation administered by: Independent trained observer under attending supervision with continuous monitoring of the patient?s level of consciousness and physiologic status Total intra-service sedation time (minutes): 16 Local anesthesia: 2 % lidocaine Access Local anesthesia was administered. The vessel was sonographically evaluated and determined to be patent. Real time ultrasound was used to visualize needle entry into the vessel and a permanent image . Vein accessed: Internal jugular vein Access technique: Micropuncture set with 21 gauge needle Venography Indication for venography: Not performed Vein catheterized: Not applicable Findings: Not applicable Port placement An incision was made at the upper chest, a pocket was created, and the catheter was tunneled subcutaneously to the venous access site and trimmed to appropriate length. The port was inserted into the pocket and the catheter was advanced via a peel-away sheath into the vein under fluoroscopic guidance. The port was sutured into the pocket using non-absorbable suture. Catheter tip location was fluoroscopically verified and a permanent image was stored. Port placed: 7.[address] injectable ported catheter Catheter tip position: Cavoatrial junction Unique Device Identifier: Not available Catheter flush: Normal saline Closure The access site and incision were closed and sterile dressing(s) were applied. Access site closure technique: Absorbable suture and tissue adhesive Incision closure technique: Absorbable suture and tissue adhesive Patient discharged from procedure suite with device accessed: No Additional Details Additional description of procedure: None Equipment details: None Specimens removed: None Estimated blood loss (mL): Less than 10 Standardized report: [email or web address] The patient tolerated the procedure well. The patient was comfortable and was transferred to the recovery room in stable condition. Complications There were no immediate complications and no other complications. Attestation Signer name: Tameka Stephenson, (more content not included)... [facility] IR FLUOR GUID VASC ACCESSon 08-04-2023 IR FLUOR GUID VASC ACCESS * * *Final Report* * * DATE OF EXAM: Aug 04 2023 11:20AM [facility] [id number] - IR FLUOR GUID VASC ACCESS / PROCEDURE REASON: Ovarian cancer on left (HCC) [C56.2] * * * * Physician Interpretation * * * * PROCEDURE: VENOUS PORT PLACEMENT Procedural Personnel Attending physician(s): Tameka Stephenson M.D. Fellow physician(s): None Resident physician(s): None Advanced practice provider(s): None Medical Student(s): None Pre-procedure diagnosis: Ovarian cancer Post-procedure diagnosis: Same Indication: Administration of chemotherapy Additional clinical history: None PROCEDURE SUMMARY: - Venous access with ultrasound guidance - Tunneled port insertion under fluoroscopic guidance - Additional procedure(s): None PROCEDURE DETAILS: Pre-procedure History and imaging of central venous access reviewed (QCDR): Yes Consent: Risks, benefits, treatment options, potential complications and personnel to be involved were discussed (including the risks of radiation exposure, contrast and anesthesia administration, and any equipment needed for the procedure to ensure best possible outcome) with the patient and all questions were answered and consent was obtained prior to procedure. Transfusion of blood products: No Medication reconciliation: The patient's medications and allergies were reviewed in the electronic medical record and reconciled to the proposed procedure/treatment. Leslie-procedure discussion: The appropriate elements of the pre-procedure discussion, safety check list and sign-out were performed. Time out: A time out was performed immediately prior to procedure start with the nursing and interventional team, correctly identifying the name, date of , procedure, anatomy (including marking of site and side if applicable), patient position, procedure consent form, relevant diagnostic and radiology test results, antibiotic administration if applicable, safety precautions, and procedure-specific equipment needs. Start of procedure: 1040 End of procedure: 1110 Patient position: Supine Antibiotics: None Antibiotic infusion start time: N/A Prophylactic antibiotic administered: None Preparation (MIPS): The site was prepared and draped using all elements of maximal sterile barrier technique including sterile gloves, sterile gown, cap, mask, large sterile sheet, sterile ultrasound probe cover, hand hygiene and cutaneous antisepsis with 2% chlorhexidine. Medical reason for site preparation exception (MIPS): Not applicable FLUOROSCOPIC RADIATION SUMMARY: Plane A, Air Kerma: 1.0 mGy Fluoro Time: 0:12 min:sec Radiation dose exceed 5 Gy: No If radiation dose exceeded 5 Gy, was counseling and instructional brochure provided: N/A Anesthesia/sedation Level of anesthesia/sedation: Moderate sedation (conscious sedation) Anesthesia/sedation administered by: Independent trained observer under attending supervision with continuous monitoring of the patient?s level of consciousness and physiologic status Total intra-service sedation time (minutes): 16 Local anesthesia: 2 % lidocaine Access Local anesthesia was administered. The vessel was sonographically evaluated and determined to be patent. Real time ultrasound was used to visualize needle entry into the vessel and a permanent image . Vein accessed: Internal jugular vein Access technique: Micropuncture set with 21 gauge needle Venography Indication for venography: Not performed Vein catheterized: Not applicable Findings: Not applicable Port placement An incision was made at the upper chest, a pocket was created, and the catheter was tunneled subcutaneously to the venous access site and trimmed to appropriate length. The port was inserted into the pocket and the catheter was advanced via a peel-away sheath into the vein under fluoroscopic guidance. The port was sutured into the pocket using non-absorbable suture. Catheter tip location was fluoroscopically verified and a permanent image was stored. Port placed: 7.[address] injectable ported catheter Catheter tip position: Cavoatrial junction Unique Device Identifier: Not available Catheter flush: Normal saline Closure The access site and incision were closed and sterile dressing(s) were applied. Access site closure technique: Absorbable suture and tissue adhesive Incision closure technique: Absorbable suture and tissue adhesive Patient discharged from procedure suite with device accessed: No Additional Details Additional description of procedure: None Equipment details: None Specimens removed: None Estimated blood loss (mL): Less than 10 Standardized report: [email or web address] The patient tolerated the procedure well. The patient was comfortable and was transferred to the recovery room in stable condition. Complications There were no immediate complications and no other complications. Attestation Signer name: Tameka Stephenson MD I (more content not included)... [facility] IR US GUIDE VASC ACCESSon IR US GUIDE VASC ACCESS * * *Final Report* * * DATE OF EXAM: Aug 04 2023 11:20AM [facility] [id number] - IR US GUIDE VASC ACCESS / PROCEDURE REASON: Ovarian cancer on left (HCC) [C56.2] * * * * Physician Interpretation * * * * PROCEDURE: VENOUS PORT PLACEMENT Procedural Personnel Attending physician(s): Tameka Stephenson M.D. Fellow physician(s): None Resident physician(s): None Advanced practice provider(s): None Medical Student(s): None Pre-procedure diagnosis: Ovarian cancer Post-procedure diagnosis: Same Indication: Administration of chemotherapy Additional clinical history: None PROCEDURE SUMMARY: - Venous access with ultrasound guidance - Tunneled port insertion under fluoroscopic guidance - Additional procedure(s): None PROCEDURE DETAILS: Pre-procedure History and imaging of central venous access reviewed (QCDR): Yes Consent: Risks, benefits, treatment options, potential complications and personnel to be involved were discussed (including the risks of radiation exposure, contrast and anesthesia administration, and any equipment needed for the procedure to ensure best possible outcome) with the patient and all questions were answered and consent was obtained prior to procedure. Transfusion of blood products: No Medication reconciliation: The patient's medications and allergies were reviewed in the electronic medical record and reconciled to the proposed procedure/treatment. Leslie-procedure discussion: The appropriate elements of the pre-procedure discussion, safety check list and sign-out were performed. Time out: A time out was performed immediately prior to procedure start with the nursing and interventional team, correctly identifying the name, date of , procedure, anatomy (including marking of site and side if applicable), patient position, procedure consent form, relevant diagnostic and radiology test results, antibiotic administration if applicable, safety precautions, and procedure-specific equipment needs. Start of procedure: 1040 End of procedure: 1110 Patient position: Supine Antibiotics: None Antibiotic infusion start time: N/A Prophylactic antibiotic administered: None Preparation (MIPS): The site was prepared and draped using all elements of maximal sterile barrier technique including sterile gloves, sterile gown, cap, mask, large sterile sheet, sterile ultrasound probe cover, hand hygiene and cutaneous antisepsis with 2% chlorhexidine. Medical reason for site preparation exception (MIPS): Not applicable FLUOROSCOPIC RADIATION SUMMARY: Plane A, Air Kerma: 1.0 mGy Fluoro Time: 0:12 min:sec Radiation dose exceed 5 Gy: No If radiation dose exceeded 5 Gy, was counseling and instructional brochure provided: N/A Anesthesia/sedation Level of anesthesia/sedation: Moderate sedation (conscious sedation) Anesthesia/sedation administered by: Independent trained observer under attending supervision with continuous monitoring of the patient?s level of consciousness and physiologic status Total intra-service sedation time (minutes): 16 Local anesthesia: 2 % lidocaine Access Local anesthesia was administered. The vessel was sonographically evaluated and determined to be patent. Real time ultrasound was used to visualize needle entry into the vessel and a permanent image . Vein accessed: Internal jugular vein Access technique: Micropuncture set with 21 gauge needle Venography Indication for venography: Not performed Vein catheterized: Not applicable Findings: Not applicable Port placement An incision was made at the upper chest, a pocket was created, and the catheter was tunneled subcutaneously to the venous access site and trimmed to appropriate length. The port was inserted into the pocket and the catheter was advanced via a peel-away sheath into the vein under fluoroscopic guidance. The port was sutured into the pocket using non-absorbable suture. Catheter tip location was fluoroscopically verified and a permanent image was stored. Port placed: 7.[address] injectable ported catheter Catheter tip position: Cavoatrial junction Unique Device Identifier: Not available Catheter flush: Normal saline Closure The access site and incision were closed and sterile dressing(s) were applied. Access site closure technique: Absorbable suture and tissue adhesive Incision closure technique: Absorbable suture and tissue adhesive Patient discharged from procedure suite with device accessed: No Additional Details Additional description of procedure: None Equipment details: None Specimens removed: None Estimated blood loss (mL): Less than 10 Standardized report: [email or web address] The patient tolerated the procedure well. The patient was comfortable and was transferred to the recovery room in stable condition. Complications There were no immediate complications and no other complications. Attestation Signer name: MD Mayra Bolton (more content not included)... Normal [facility] PT panel Coag (PPP)on 2023 INR Coag (PPP) [Relative time] 1.0 {INR} Normal 0.9-1.3 [facility] Comment on above: Order Comment: Speci men Type: BLOOD SPECIMEN Ordering Facility: [facility] Address: [address] [place] [address] Result Comment: Estrella min K Antagonist (VKA) Therapeutic Range: INR 2 to 3 (Target INR of 2.5) Note: For patients treated with VKA drugs, such as warfarin, the [place] 2012 Guideline recommends a therapeutic INR range of 2 to 3 (target INR of 2.5). This recommendation includes high-risk patients with antiphospholipid syndrome with previous arterial or venous thromboembolism, current-generation mechanical or bioprosthetic aortic heart valve replacement. Note: Patients with mechanical aortic valve replacement and additional risk factors for thromboembolic events (atrial fibrillation, previous thromboembolism, LV dysfunction, hypercoagulable conditions) or an older generation mechanical AVR (i.e., ball in-Cage) or any mechanical MVR should have a INR therapeutic range of 2.5 to 3.5 (target INR of 3). Tracie GH, et al. Chest 2012, 141:7S-47S Maame VARGAS et al. [facility] 2017, 70: 252-289 Performed By: #### 3 [id number] #### [facility] CLIA [id number] [address] [place] [address] [place] PT Coag (PPP) [Time] 10.8 s Normal 9.7-13.0 [facility] Comment on above: Order Comment: Speci men Type: BLOOD SPECIMEN Ordering Facility: [facility] Address: [place] [address] Performed By: #### 3 [id number] #### [facility] CLIA [id number] [id number] [facility] NURSING PROGon 07-29-2023 NURSING PROG HNO ID: [id number] Author: SUSHANT MOURA, RN Service: Radiology Author Type: Registered Nurse Type: Nursing Progress Note Filed: 07/29/2023 11:44 Note Text: PRE-PROCEDURE INSTRUCTIONS TO PREPARE FOR YOUR PROCEDURE: Your arrival time for your procedure is 8:30 AM at [facility]. Do NOT eat any solid foods after MIDNIGHT the night prior to your procedure - this includes gum or mints. Shower the morning of the procedure, put on clean clothes, and have clean sheets for your bed to help prevent infection after your procedure. Leave all valuables such as jewelry including rings, piercings, wallets, and purses at home. Wear comfortable, loose-fitting clothing. If you wear glasses or contacts, please bring a case. SPECIAL INSTRUCTIONS: If instructed, bring your first voided urine specimen with you. If you were provided skin preparation to use prior to your procedure, complete this as directed. If you use crutches or a walker, bring them with you. If you have a home CPAP/BIPAP machine, bring it with you. If you were instructed to complete a fleets enema or bowel prep, complete as directed. Bring copy of Living Will/Power of Carpenter/Labor. Do not smoke or chew. If you use tobacco, quit or at least cut down before surgery. Do not smoke or chew after midnight the day before your surgery. This effects bleeding, infection, healing, and so much more. Do not take any Diet or Herbal Supplements 2 weeks prior to your surgery date. Please notify your physician if there is any change in your physical condition such as a cold, cough, fever, sore throat, or skin irritation near the surgical site. Visitors under the age of 14 are restricted in the Surgery Center. UPON ARRIVAL: Access to [facility] (the glass building) is located on [address] [employer] parking is available for your convenience from 5am-5pm- there is a $5.00 charge for this service. Take the elevators directly inside the entrance to the 1st Floor Surgery Lobby. Sign in at the podium located to the left when you get off the elevators. A payment may be expected at the time of service. One visitor may come back to the preoperative area with you. The preoperative staff will be reviewing your medical history, please let them know if you prefer not to have a visitor with you during this time. Once you are ready for your procedure, two visitors at a time are permitted in your preprocedure room. Normal [facility] Absolute lymphocyte countOrd ered By: Jorge Alberto Stephenson on 07-10-2023 Lymphocytes Auto (Unsp spec) [#/Vol] 0.61 10*3/uL 0.83-4.51 [facility] Basophil percentageOrdered B y: Jorge Alberto Stephenson on 07-10-2023 Basophil percentage 0 SEEN /hpf 0-5 [facility] Basophils/100 WBC (Bld) 0.2 % 0-1 [facility] Bilirubin [Mass/Vol] 0.90 mg/dL 0.20-1.00 [facility] Comment on above: For patients on eltr ombopag therapy, use of Dimension [place] TBIL is not recommended. Chloride [Moles/Vol] 101 mmol/L 98-107 [facility] Eosinophils/100 WBC (Bld) 0.1 % 0-5 [facility] Glucose [Mass/Vol] 121 mg/dL 74-106 [facility] Comment on above: Fasting Glucose resu lt from 100 to 125 mg/dL suggests IMPAIRED HOMEOSTASIS per A.D.A. criteria. Lactate [Moles/Vol] 1.7 mmol/L 0.4-2.0 [facility] Neutrophils (Bld) [#/Vol] 10.9 10*3/uL 2.0-7.7 [facility] Neutrophils/100 WBC (Bld) 89.8 % 47-70 [facility] Potassium [Moles/Vol] 4.6 mmol/L 3.5-5.1 [facility] Protein [Mass/Vol] 7.2 g/dL 6.4-8.2 [facility] Sodium [Moles/Vol] 136 mmol/L 136-145 [facility] WBC (Bld) [#/Vol] 12.2 10*3/uL 4.4-11.0 [facility] Bilirubin Test strip Ql (U)O rdered By: Jorge Alberto Stephenson on 07-10-2023 Bilirubin Ql (U) Negative Negative [facility] Blood erythrocytes count (nu mber/volume)Ordered By: Jorge Alberto Stephenson on 07-10-2023 RBC (Bld) [#/Vol] 4.09 10*6/uL 4.2-5.4 [facility] Blood hemoglobin measurement (mass/volume)Ordered By: Jorge Alberto Stephenson on 07-10-2023 Hemoglobin (Bld) [Mass/Vol] 12.0 g/dL 12.0-15.0 [facility] Blood lymphocytes/100 leukoc ytesOrdered By: Jorge Alberto Stephenson on 07-10-2023 Lymphocytes/100 WBC (Bld) 5.0 % 19-41 [facility] Blood monocytes/100 leukocyt esOrdered By: Harling[place] Seema on 07-10-2023 Monocytes/100 WBC (Bld) 4.4 % 0-10 [facility] Blood platelet mean volumeOr dered By: Jorge Alberto Stephenson on 07-10-2023 Platelet mean volume (Bld) [Entitic vol] 10.7 fL 6.2-12.0 [facility] Determination of erythrocyte mean corpuscular volume (MCV)Ordered By: Jorge Alberto Stephenson on 07-10-2023 MCV (RBC) [Entitic vol] 91.4 fL 81-99 [facility] Hematocrit Auto (Bld) [Volum e fraction][facility] 07-10-2023 Hematocrit (Bld) [Volume fraction] 37.4 % 37-47 [facility] Influenza virus A and B and SARS-CoV-2 (COVID-19) Ag panel - Upper respiratory specimOrdered By: Jorge Alberto Stephenson on 07-10-2023 SARS-CoV-2 (COVID-19) RNA MAHAMED+probe Ql (Resp) [facility] Ketones Test strip Ql (U)Ord ered By: Jorge Alberto Stephenson on 07-10-2023 Ketones Ql (U) 15 mg/dl Negative [facility] Laboratory - Chemistry and C hemistry - challengeOrdered By: Jorge Alberto Stephenson on 07-10-2023 ALP [Catalytic activity/Vol] 119 U/L 45-117 [facility] ALT [Catalytic activity/Vol] 13 U/L 13-56 [facility] CO2 [Moles/Vol] 27.0 mmol/L 21.0-32.0 [facility] Globulin (S) [Mass/Vol] 3.9 g/dL 2.2-4.2 [facility] Lipase [Catalytic activity/Vol] 18 U/L 13-75 [facility] Comment on above: Please note:LIPASE r evised reference range effective 22. New Lipase methodology. Expected to produce lower values than the previous assay method. NEW Reference Range: 13 - 75 U/L Urea nitrogen/Creatinine [Mass ratio] 17.3 mg/mg 10-20 [facility] Laboratory - Hematology and Cell countsOrdered By: Jorge Alberto Stephenson on 07-10-2023 Erythrocyte distribution width (RBC) [Entitic vol] 40.4 fL 35.1-43.9 [facility] Erythrocyte distribution width (RBC) [Ratio] 12.0 % 11.6-14.6 [facility] Immature granulocytes/100 WBC (Bld) 0.500 % 0.0-0.9 [facility] Comment on above: IG% - Immature Granu locytes (promyelocytes, myelocytes and metamyelocytes) > 1% indicates that a LEFT SHIFT is Present. MCH (RBC) [Entitic mass] 29.3 pg 27.0-32.0 [facility] Nucleated RBC/100 WBC (Bld) [Ratio] 0 % 0-5 [facility] MCHC Auto (RBC) [Mass/Vol]Or dered By: Jorge Alberto Stephenson on 07-10-2023 MCHC (RBC) [Mass/Vol] 32.1 g/dL 32-36 [facility] Mucus LM Ql (Urine sed)Order ed By: Jorge Alberto Stephenson on 07-10-2023 Mucus Ql (Urine sed) 0 SEEN /hpf [facility] Nitrite Test strip Ql (U)Ord ered By: Jorge Alberto Stephenson on 07-10-2023 Nitrite Ql (U) Negative Negative [facility] No Panel InformationOrdered By: Remus Stephenson on 07-10-2023 Estimated GFR (MDRD) Amer 53 mL/min >60 [facility] Comment on above: GFR Calc Estimated GFR (MDRD) Non-Af Amer 44 mL/min >60 [facility] Comment on above: Non- GFR Calc Troponin I High Sensitivity 14 pg/mL 3.0-54.0 [facility] Comment on above: Please Note: New Estela t Units and Gender Specific Reference Ranges. For more information see Policy Stat Procedure Fair Play High Sensitivity Troponin (TNIH) and attachments. Platelets bldOrdered By: Rem us Rodriguezderek on 07-10-2023 Platelets (Bld) [#/Vol] 437 10*3/uL 150-450 [facility] Protein Test strip Ql (U)Ord ered By: Jorge Alberto Rodriguezderek on 07-10-2023 Protein Ql (U) 15 mg/dl Negative [facility] Serum or plasma albumin nick urement (mass/volume)Ordered By: [facility] 07-10-2023 Albumin [Mass/Vol] 3.3 g/dL 3.2-5.0 [facility] Serum or plasma albumin/glob ulin mass ratioOrdered By: Remus Rodriguezderek on 07-10-2023 Albumin/Globulin [Mass ratio] 0.8 {ratio} 0.9-2.4 [facility] Serum or plasma calcium nick urement (mass/volume)Ordered By: Jorge Alberto Rodriguezderek on 07-10-2023 Calcium [Mass/Vol] 9.7 mg/dL 8.5-10.1 [facility] Serum or plasma creatinine m easurement (mass/volume)Ordered By: [facility] Rodriguezderek on 07-10-2023 Creatinine [Mass/Vol] 1.27 mg/dL 0.55-1.02 [facility] Comment on above: The validity of the calculated GFR & GFRAA in patients over 70 years has not been determined. Clinical correlation is essential. Serum or plasma urea nitroge n measurement (mass/volume)Ordered By: Remus Rodriguezderek on 07-10-2023 Urea nitrogen [Mass/Vol] 22 mg/dL 7-18 [facility] Squamous epithelial cells de tection in urine sediment by light microscopyOrdered By: Jorge Alberto Stephenson on 07-10-2023 Epithelial cells.squamous LM Ql (Urine sed) 0 SEEN /hpf 5-10 [facility] Thin prep Papanicolaou smear with manual screeningOrdered By: Jorge Alberto Stephenson on 07-10-2023 Thin prep Papanicolaou smear with manual screening 16 U/L 15-37 [facility] Thin prep Papanicolaou smear with manual screening 8 5-15 [facility] Upper respiratory specimen i nfluenza A virus, influenza B virus, and severe acute resOrdered By: Remus Stephenson on 07-10-2023 Upper respiratory specimen influenza A virus, influenza B virus, and severe acute res [facility] Urine blood detectionOrdered By: Jorge Alberto Stephenson on 07-10-2023 RBC Ql (U) Negative Negative [facility] RBC Ql (U) 0 SEEN /hpf 0-5 [facility] Urine clarityOrdered By: Leny us Seema on 07-10-2023 Clarity (U) Clear Clear [facility] Urine color determinationOrd ered By: Jorge Alberto Stephenson on 07-10-2023 Color (U) Yellow Yellow [facility] Urine glucose detectionOrder ed By: Jorge Alberto Stephenson on 07-10-2023 Glucose Ql (U) Normal mg/dl Normal [facility] Urine leukocyte esterase det ection by dipstickOrdered By: Jorge Alberto Stephenson on 07-10-2023 Leukocyte esterase Test strip Ql (U) Negative Negative [facility] Urine pHOrdered By: Jorge Alberto Brady gur on 07-10-2023 pH (U) 6.0 [pH] 5.0 - 8.0 [facility] Urine sediment bacteria coun t by microscopy (number/high power field)Ordered By: Jorge Alberto Stephenson on 07-10-2023 Bacteria LM.HPF (Urine sed) [#/Area] 0 /[HPF] None Seen [facility] Urine specific gravity measu rementOrdered By: Jorge Alberto Stephenson on 07-10-2023 Specific gravity (U) [Rel density] 1.010 1.002-1.030 [facility] Urobilinogen Auto test strip Ql (U)Ordered By: Jorge Alberto Stephenson on 07-10-2023 Urobilinogen Ql (U) Normal mg/dl Normal [facility] Absolute lymphocyte countOrd ered By: Jessica Al on 01-26-2023 Lymphocytes Auto (Unsp spec) [#/Vol] 1.32 10*3/uL 0.83-4.51 [facility] Basophil percentageOrdered B y: Jessica Al on 01-26-2023 Basophils/100 WBC (Bld) 0.6 % 0-1 [facility] Bilirubin [Mass/Vol] 0.70 mg/dL 0.20-1.00 [facility] Comment on above: For patients on eltr ombopag therapy, use of Dimension [place] TBIL is not recommended. Chloride [Moles/Vol] 106 mmol/L 98-107 [facility] Eosinophils/100 WBC (Bld) 2.6 % 0-5 [facility] Glucose [Mass/Vol] 102 mg/dL 74-106 [facility] Comment on above: Fasting Glucose resu lt from 100 to 125 mg/dL suggests IMPAIRED HOMEOSTASIS per A.D.A. criteria. Neutrophils (Bld) [#/Vol] 3.1 10*3/uL 2.0-7.7 [facility] Neutrophils/100 WBC (Bld) 61.0 % 47-70 [facility] Potassium [Moles/Vol] 4.4 mmol/L 3.5-5.1 [facility] Protein [Mass/Vol] 7.0 g/dL 6.4-8.2 [facility] Sodium [Moles/Vol] 138 mmol/L 136-145 [facility] WBC (Bld) [#/Vol] 5.0 10*3/uL 4.4-11.0 [facility] Blood erythrocytes count (nu mber/volume)Ordered By: Jessica Al on 01-26-2023 RBC (Bld) [#/Vol] 3.65 10*6/uL 4.2-5.4 [facility] Blood hemoglobin measurement (mass/volume)Ordered By: Jessica Al on 01-26-2023 Hemoglobin (Bld) [Mass/Vol] 11.2 g/dL 12.0-15.0 [facility] Blood lymphocytes/100 leukoc ytesOrdered By: Jessica Al on 01-26-2023 Lymphocytes/100 WBC (Bld) 26.4 % 19-41 [facility] Blood monocytes/100 leukocyt esOrdered By: Jessica Al on 01-26-2023 Monocytes/100 WBC (Bld) 9.0 % 0-10 [facility] Blood platelet mean volumeOr dered By: Jessica Al on 01-26-2023 Platelet mean volume (Bld) [Entitic vol] 11.5 fL 6.2-12.0 [facility] Determination of erythrocyte mean corpuscular volume (MCV)Ordered By: Jessicasal Al on 01-26-2023 MCV (RBC) [Entitic vol] 97.0 fL 81-99 [facility] Erythrocyte sedimentation ra teOrdered By: Jessicasal Al on 01-26-2023 ESR (Bld) [Velocity] 22 mm/h 0-30 [facility] Hematocrit Auto (Bld) [Volum e fraction]Ordered By: Jessica Mikaela on 01-26-2023 Hematocrit (Bld) [Volume fraction] 35.4 % 37-47 [facility] Laboratory - Chemistry and C hemistry - challengeOrdered By: [facility] Mikaela on 01-26-2023 ALP [Catalytic activity/Vol] 84 U/L 45-117 [facility] ALT [Catalytic activity/Vol] 30 U/L 13-56 [facility] CO2 [Moles/Vol] 29.0 mmol/L 21.0-32.0 [facility] Globulin (S) [Mass/Vol] 3.4 g/dL 2.2-4.2 [facility] Urea nitrogen/Creatinine [Mass ratio] 27.4 mg/mg 10-20 [facility] Laboratory - Hematology and Cell countsOrdered By: Jessicasal Al on 01-26-2023 Erythrocyte distribution width (RBC) [Entitic vol] 43.4 fL 35.1-43.9 [facility] Erythrocyte distribution width (RBC) [Ratio] 12.3 % 11.6-14.6 [facility] Immature granulocytes/100 WBC (Bld) 0.400 % 0.0-0.9 [facility] Comment on above: IG% - Immature Granu locytes (promyelocytes, myelocytes and metamyelocytes) > 1% indicates that a LEFT SHIFT is Present. MCH (RBC) [Entitic mass] 30.7 pg 27.0-32.0 [facility] Nucleated RBC/100 WBC (Bld) [Ratio] 0 % 0-5 [facility] MCHC Auto (RBC) [Mass/Vol]Or dered By: Jessica Al on 01-26-2023 MCHC (RBC) [Mass/Vol] 31.6 g/dL 32-36 [facility] No Panel InformationOrdered By: Jessica Al on 01-26-2023 Estimated GFR (MDRD) Amer 61 mL/min >60 [facility] Comment on above: GFR Calc Estimated GFR (MDRD) Non-Af Amer 50 mL/min >60 [facility] Comment on above: Non- GFR Calc Platelets bldOrdered By: Minesh Al on 01-26-2023 Platelets (Bld) [#/Vol] 186 10*3/uL 150-450 [facility] Serum or plasma C reactive p rotein measurement (mass/volume)Ordered By: Jessica Al on 01-26-2023 CRP [Mass/Vol] 3.77 mg/L 0.0-3.0 [facility] Comment on above: C-Reactive Protein ( CRP) provides useful information for thediagnosis, therapy and monitoring of inflammatory processesand associated diseases. For the evaluation of Relative Riskfor Cardiovascular Disease, a High Sensitivity CRP (HSCRP)should be ordered. Serum or plasma albumin nick urement (mass/volume)Ordered By: Jessica Al on 01-26-2023 Albumin [Mass/Vol] 3.6 g/dL 3.2-5.0 [facility] Serum or plasma albumin/glob ulin mass ratioOrdered By: Jessica Al on 01-26-2023 Albumin/Globulin [Mass ratio] 1.1 {ratio} 0.9-2.4 [facility] Serum or plasma calcium nick urement (mass/volume)Ordered By: Jessica Al on 01-26-2023 Calcium [Mass/Vol] 9.5 mg/dL 8.5-10.1 [facility] Serum or plasma creatinine m easurement (mass/volume)Ordered By: Jessica Al on 01-26-2023 Creatinine [Mass/Vol] 1.13 mg/dL 0.55-1.02 [facility] Comment on above: The validity of the calculated GFR & GFRAA in patients over 70 years has not been determined. Clinical correlation is essential. Serum or plasma urea nitroge n measurement (mass/volume)Ordered By: Jessica Al on 01-26-2023 Urea nitrogen [Mass/Vol] 31 mg/dL 7-18 [facility] Thin prep Papanicolaou smear with manual screeningOrdered By: Jessica Al on 01-26-2023 Thin prep Papanicolaou smear with manual screening 34 U/L 15 [facility] Thin prep Papanicolaou smear with manual screening 3 5-15 [facility] Basophil percentageOrdered B y: Dr. Casanova on 12-06-2022 Cholesterol [Mass/Vol] 266 mg/dL <200 [facility] Comment on above: <200 mg/dL Desirable 200-240 mg/dL Borderline >240 mg/dL High Risk Triglyceride [Mass/Vol] 69 mg/dL <199 [facility] Comment on above: The drugs N-Acetylcy steine and Metamizole may falsely depress this assay.Serum Triglycerides Reference Interval Normal <150 mg/dL Borderline high 150 - 199 mg/dL High 200 - 499 mg/dL Very High > or = 500 mg/dL No Panel InformationOrdered By: Dr. Casanova on 12-06-2022 Vitamin D 25-Hydroxy 103.4 ng/mL [facility] Comment on above: Vitamin D 25(OH) Sta tus Range Deficiency <20 ng/mL (50nmol/L) Insufficiency 20 - 30 ng/mL (50 - 75 nmol/L) Sufficiency 30 - 100 ng/mL (75 - 250 nmol/L) Toxicity >100 ng/mL (>250 nmol/L)Evidence suggests that patients undergoing fluorescein dye angiography can retain small amounts of fluorescein in the body for up to 48 to 72 hours post-treatment. In the cases of patients with renal insufficiency, retention could be much longer. Samples containing fluorescein can produce falsely elevated values when tested with the [employer] Vitamin D assay. With fluorescein interference, observed Vitamin D values can be as high as >150 ng/mL (>375 nmol/L). Samples should be resubmitted post fluorescein clearance to ensure there is no interference with Vitamin D test results. Serum or plasma cholesterol in HDL measurement (mass/volume)Ordered By: Dr. Casanova on 12-06-2022 Cholesterol in HDL [Mass/Vol] 94 mg/dL >40 [facility] Comment on above: The drugs N-Acetylcy steine and Metamizole may falsely depress this assay. Reference Range HDL <40 mg/dL Low HDL Cholesterol HDL >or= 60 mg/dL High HDL Cholesterol Serum or plasma cholesterol in VLDL measurement (mass/volume)Ordered By: Dr. Casanova on 12-06-2022 Cholesterol in VLDL [Mass/Vol] 14 mg/dL 5-40 [facility] Serum or plasma low density lipoprotein (LDL) cholesterol measurement (mass/volume)Ordered By: Dr. Casanova on 12-06-2022 Cholesterol in LDL [Mass/Vol] 158 mg/dL 0-130 [facility] Absolute lymphocyte countOrd ered By: Dr. Mcfarland on 12-02-2022 Lymphocytes Auto (Unsp spec) [#/Vol] 1.35 10*3/uL 0.83-4.51 [facility] Basophil percentageOrdered B y: Dr. Mcfarland on 12-02-2022 Basophil percentage 0 SEEN /hpf 0-5 [facility] Basophils/100 WBC (Bld) 0.4 % 0-1 [facility] Bilirubin [Mass/Vol] 1.40 mg/dL 0.20-1.00 [facility] Comment on above: For patients on eltr ombopag therapy, use of Dimension [place] TBIL is not recommended. Chloride [Moles/Vol] 105 mmol/L 98-107 [facility] Eosinophils/100 WBC (Bld) 1.7 % 0-5 [facility] Glucose [Mass/Vol] 118 mg/dL 74-106 [facility] Comment on above: Fasting Glucose resu lt from 100 to 125 mg/dL suggests IMPAIRED HOMEOSTASIS per A.D.A. criteria. Neutrophils (Bld) [#/Vol] 5.0 10*3/uL 2.0-7.7 [facility] Neutrophils/100 WBC (Bld) 68.9 % 47-70 [facility] Potassium [Moles/Vol] 4.3 mmol/L 3.5-5.1 [facility] Protein [Mass/Vol] 7.1 g/dL 6.4-8.2 [facility] Sodium [Moles/Vol] 139 mmol/L 136-145 [facility] WBC (Bld) [#/Vol] 7.2 10*3/uL 4.4-11.0 [facility] Bilirubin Test strip Ql (U)O rdered By: Dr. Mcfarland on 12-02-2022 Bilirubin Ql (U) Negative Negative [facility] Blood erythrocytes count (nu mber/volume)Ordered By: Dr. Mcfarland on 12-02-2022 RBC (Bld) [#/Vol] 3.75 10*6/uL 4.2-5.4 [facility] Blood hemoglobin measurement (mass/volume)Ordered By: Dr. Mcfarland on 12-02-2022 Hemoglobin (Bld) [Mass/Vol] 11.5 g/dL 12.0-15.0 [facility] Blood lymphocytes/100 leukoc ytesOrdered By: Dr. Mcfarland on 12-02-2022 Lymphocytes/100 WBC (Bld) 18.7 % 19-41 [facility] Blood monocytes/100 leukocyt esOrdered By: Dr. Mcfarland on 12-02-2022 Monocytes/100 WBC (Bld) 9.7 % 0-10 [facility] Blood platelet mean volumeOr dered By: Dr. Mcfarland on 12-02-2022 Platelet mean volume (Bld) [Entitic vol] 11.1 fL 6.2-12.0 [facility] Determination of erythrocyte mean corpuscular volume (MCV)Ordered By: Dr. Mcfarland on 12-02-2022 MCV (RBC) [Entitic vol] 96.0 fL 81-99 [facility] Direct bilirubinOrdered By: Dr. Mcfarland on 12-02-2022 Bilirubin.direct [Mass/Vol] 0.31 mg/dL 0.00-0.30 [facility] Hematocrit Auto (Bld) [Volum e fraction]Ordered By: Dr. Mcfarland on 12-02-2022 Hematocrit (Bld) [Volume fraction] 36.0 % 37-47 [facility] Ketones Test strip Ql (U)Ord ered By: Dr. Mcfarland on 12-02-2022 Ketones Ql (U) Negative Negative [facility] Laboratory - Chemistry and C hemistry - challengeOrdered By: Dr. Mcfarland on 12-02-2022 ALP [Catalytic activity/Vol] 82 U/L 45-117 [facility] ALT [Catalytic activity/Vol] 51 U/L 13-56 [facility] CO2 [Moles/Vol] 28.0 mmol/L 21.0-32.0 [facility] Globulin (S) [Mass/Vol] 3.2 g/dL 2.2-4.2 [facility] Lipase [Catalytic activity/Vol] 43 U/L 13-75 [facility] Comment on above: Please note:LIPASE r evised reference range effective 22. New Lipase methodology. Expected to produce lower values than the previous assay method. NEW Reference Range: 13 - 75 U/L Urea nitrogen/Creatinine [Mass ratio] 21.6 mg/mg 10-20 [facility] Laboratory - Hematology and Cell countsOrdered By: Dr. Mcfarland on 12-02-2022 Erythrocyte distribution width (RBC) [Entitic vol] 44.1 fL 35.1-43.9 [facility] Erythrocyte distribution width (RBC) [Ratio] 12.4 % 11.6-14.6 [facility] Immature granulocytes/100 WBC (Bld) 0.600 % 0.0-0.9 [facility] Comment on above: IG% - Immature Granu locytes (promyelocytes, myelocytes and metamyelocytes) > 1% indicates that a LEFT SHIFT is Present. MCH (RBC) [Entitic mass] 30.7 pg 27.0-32.0 [facility] Nucleated RBC/100 WBC (Bld) [Ratio] 0 % 0-5 [facility] MCHC Auto (RBC) [Mass/Vol]Or dered By: Dr. Mcfarland on 12-02-2022 MCHC (RBC) [Mass/Vol] 31.9 g/dL 32-36 [facility] Mucus LM Ql (Urine sed)Order ed By: Dr. Mcfarland on 12-02-2022 Mucus Ql (Urine sed) 0 SEEN /hpf [facility] Nitrite Test strip Ql (U)Ord ered By: Dr. Mcfarland on 12-02-2022 Nitrite Ql (U) Negative Negative [facility] No Panel InformationOrdered By: Dr. Mcfarland on 12-02-2022 Estimated Creatinine Clearance Calc 35.18 ml/min [facility] Estimated GFR (MDRD) Amer 59 mL/min >60 [facility] Comment on above: GFR Calc Estimated GFR (MDRD) Non-Af Amer 49 mL/min >60 [facility] Comment on above: Non- GFR Calc Platelets bldOrdered By: Dr. Mcfarland on 12-02-2022 Platelets (Bld) [#/Vol] 186 10*3/uL 150-450 [facility] Protein Test strip Ql (U)Ord ered By: Dr. Mcfarland on 12-02-2022 Protein Ql (U) Negative Negative [facility] Serum or plasma albumin nick urement (mass/volume)Ordered By: Dr. Mcfarland on 12-02-2022 Albumin [Mass/Vol] 3.9 g/dL 3.2-5.0 [facility] Serum or plasma calcium nick urement (mass/volume)Ordered By: Dr. Mcfarland on 12-02-2022 Calcium [Mass/Vol] 9.5 mg/dL 8.5-10.1 [facility] Serum or plasma creatinine m easurement (mass/volume)Ordered By: Dr. Mcfarland on 12-02-2022 Creatinine [Mass/Vol] 1.16 mg/dL 0.55-1.02 [facility] Comment on above: The validity of the calculated GFR & GFRAA in patients over 70 years has not been determined. Clinical correlation is essential. Serum or plasma urea nitroge n measurement (mass/volume)Ordered By: Dr. Mcfarland on 12-02-2022 Urea nitrogen [Mass/Vol] 25 mg/dL 7-18 [facility] Squamous epithelial cells de tection in urine sediment by light microscopyOrdered By: Dr. Mcfarland on 12-02-2022 Epithelial cells.squamous LM Ql (Urine sed) 0 SEEN /hpf 5-10 [facility] Thin prep Papanicolaou smear with manual screeningOrdered By: Dr. Mcfarland on 12-02-2022 Thin prep Papanicolaou smear with manual screening 41 U/L 15-37 [facility] Thin prep Papanicolaou smear with manual screening 6 5-15 [facility] Urine blood detectionOrdered By: Dr. Mcfarland on 12-02-2022 RBC Ql (U) Negative Negative [facility] RBC Ql (U) 0 SEEN /hpf 0-5 [facility] Urine clarityOrdered By: Dr. Mcfarland on 12-02-2022 Clarity (U) Clear Clear [facility] Urine color determinationOrd ered By: Dr. Mcfarland on 12-02-2022 Color (U) Straw Yellow [facility] Urine glucose detectionOrder ed By: Dr. Mcfarland on 12-02-2022 Glucose Ql (U) Normal mg/dl Normal [facility] Urine leukocyte esterase det ection by dipstickOrdered By: Dr. Mcfarland on 12-02-2022 Leukocyte esterase Test strip Ql (U) Negative Negative [facility] Urine pHOrdered By: Dr. Jordan castellanos on 12-02-2022 pH (U) 7.0 [pH] 5.0 - 8.0 [facility] Urine sediment bacteria coun t by microscopy (number/high power field)Ordered By: Dr. Mcfarland on 12-02-2022 Bacteria LM.HPF (Urine sed) [#/Area] 0 /[HPF] None Seen [facility] Urine specific gravity measu rementOrdered By: Dr. Mcfarland on 12-02-2022 Specific gravity (U) [Rel density] 1.010 1.002-1.030 [facility] Urobilinogen Auto test strip Ql (U)Ordered By: Dr. Mcfarland on 12-02-2022 Urobilinogen Ql (U) Normal mg/dl Normal [facility] Absolute lymphocyte countOrd ered By: Dr. Al on 11-02-2022 Lymphocytes Auto (Unsp spec) [#/Vol] 1.25 10*3/uL 0.83-4.51 [facility] Basophil percentageOrdered B y: Dr. Al on 11-02-2022 Basophils/100 WBC (Bld) 1.4 % 0-1 [facility] Bilirubin [Mass/Vol] 0.50 mg/dL 0.20-1.00 [facility] Comment on above: For patients on eltr ombopag therapy, use of Dimension [place] TBIL is not recommended. Chloride [Moles/Vol] 107 mmol/L 98-107 [facility] Eosinophils/100 WBC (Bld) 4.5 % 0-5 [facility] Glucose [Mass/Vol] 100 mg/dL 74-106 [facility] Comment on above: Fasting Glucose resu lt from 100 to 125 mg/dL suggests IMPAIRED HOMEOSTASIS per A.D.A. criteria. Neutrophils (Bld) [#/Vol] 3.2 10*3/uL 2.0-7.7 [facility] Neutrophils/100 WBC (Bld) 61.0 % 47-70 [facility] Potassium [Moles/Vol] 4.1 mmol/L 3.5-5.1 [facility] Protein [Mass/Vol] 7.2 g/dL 6.4-8.2 [facility] Sodium [Moles/Vol] 139 mmol/L 136-145 [facility] WBC (Bld) [#/Vol] 5.2 10*3/uL 4.4-11.0 [facility] Blood erythrocytes count (nu mber/volume)Ordered By: Dr. Al on 11-02-2022 RBC (Bld) [#/Vol] 3.72 10*6/uL 4.2-5.4 [facility] Blood hemoglobin measurement (mass/volume)Ordered By: Dr. Al on 11-02-2022 Hemoglobin (Bld) [Mass/Vol] 11.7 g/dL 12.0-15.0 [facility] Blood lymphocytes/100 leukoc ytesOrdered By: Dr. Al on 11-02-2022 Lymphocytes/100 WBC (Bld) 24.2 % 19-41 [facility] Blood monocytes/100 leukocyt esOrdered By: Dr. Al on 11-02-2022 Monocytes/100 WBC (Bld) 8.7 % 0-10 [facility] Blood platelet mean volumeOr dered By: Dr. Al on 11-02-2022 Platelet mean volume (Bld) [Entitic vol] 11.7 fL 6.2-12.0 [facility] Determination of erythrocyte mean corpuscular volume (MCV)Ordered By: Dr. Al on 11-02-2022 MCV (RBC) [Entitic vol] 97.6 fL 81-99 [facility] Hematocrit Auto (Bld) [Volum e fraction]Ordered By: Dr. Al on 11-02-2022 Hematocrit (Bld) [Volume fraction] 36.3 % 37-47 [facility] Laboratory - Chemistry and C hemistry - challengeOrdered By: Dr. Al on 11-02-2022 ALP [Catalytic activity/Vol] 60 U/L 45-117 [facility] ALT [Catalytic activity/Vol] 55 U/L 13-56 [facility] CO2 [Moles/Vol] 26.0 mmol/L 21.0-32.0 [facility] Globulin (S) [Mass/Vol] 3.3 g/dL 2.2-4.2 [facility] Urea nitrogen/Creatinine [Mass ratio] 25.4 mg/mg 10-20 [facility] Laboratory - Hematology and Cell countsOrdered By: Dr. Al on 11-02-2022 Erythrocyte distribution width (RBC) [Entitic vol] 45.0 fL 35.1-43.9 [facility] Erythrocyte distribution width (RBC) [Ratio] 12.6 % 11.6-14.6 [facility] Immature granulocytes/100 WBC (Bld) 0.200 % 0.0-0.9 [facility] Comment on above: IG% - Immature Granu locytes (promyelocytes, myelocytes and metamyelocytes) > 1% indicates that a LEFT SHIFT is Present. MCH (RBC) [Entitic mass] 31.5 pg 27.0-32.0 [facility] Nucleated RBC/100 WBC (Bld) [Ratio] 0 % 0-5 [facility] MCHC Auto (RBC) [Mass/Vol]Or dered By: Dr. lA on 11-02-2022 MCHC (RBC) [Mass/Vol] 32.2 g/dL 32-36 [facility] No Panel InformationOrdered By: Dr. Al on 11-02-2022 Estimated GFR (MDRD) Amer 60 mL/min >60 [facility] Comment on above: GFR Calc Estimated GFR (MDRD) Non-Af Amer 50 mL/min >60 [facility] Comment on above: Non- GFR Calc Platelets bldOrdered By: Dr. Al on 11-02-2022 Platelets (Bld) [#/Vol] 183 10*3/uL 150-450 [facility] Serum or plasma albumin nick urement (mass/volume)Ordered By: Dr. Al on 11-02-2022 Albumin [Mass/Vol] 3.9 g/dL 3.2-5.0 [facility] Serum or plasma albumin/glob ulin mass ratioOrdered By: Dr. Al on 11-02-2022 Albumin/Globulin [Mass ratio] 1.2 {ratio} 0.9-2.4 [facility] Serum or plasma calcium nick urement (mass/volume)Ordered By: Dr. Al on 11-02-2022 Calcium [Mass/Vol] 9.6 mg/dL 8.5-10.1 [facility] Serum or plasma creatinine m easurement (mass/volume)Ordered By: Dr. Al on 11-02-2022 Creatinine [Mass/Vol] 1.14 mg/dL 0.55-1.02 [facility] Comment on above: The validity of the calculated GFR & GFRAA in patients over 70 years has not been determined. Clinical correlation is essential. Serum or plasma urea nitroge n measurement (mass/volume)Ordered By: Dr. Al on 11-02-2022 Urea nitrogen [Mass/Vol] 29 mg/dL 7-18 [facility] Thin prep Papanicolaou smear with manual screeningOrdered By: Dr. Al on 11-02-2022 Thin prep Papanicolaou smear with manual screening 45 U/L 15-37 [facility] Thin prep Papanicolaou smear with manual screening 6 5-15 [facility] Basophil percentageOrdered B y: Dr. Casanova on 10-15-2022 Creatinine [Mass/Vol] 1.4 mg/dL 0.55-1.02 [facility] Laboratory - Chemistry and C hemistry - challengeOrdered By: Dr. Casanova on 10-15-2022 GFR/1.73 sq M.predicted among non-blacks MDRD (S/P/Bld) [Vol rate/Area] 38.0000 mL/min/{1.73_m2} >60 [facility] Absolute lymphocyte counton 05-12-2022 Lymphocytes Auto (Unsp spec) [#/Vol] 1.53 10*3/uL 0.83-4.51 [facility] Work Phone: Basophil percentageon 2021 Basophils/100 WBC (Bld) 1.2 % 0-1 [facility] Work Phone: Bilirubin [Mass/Vol] 1.00 mg/dL 0.20-1.00 [facility] Work Phone: Comment on above: For patients on eltr ombopag therapy, use of Dimension [place] TBIL is not recommended. Chloride [Moles/Vol] 104 mmol/L 98-107 [facility] Work Phone: Eosinophils/100 WBC (Bld) 3.3 % 0-5 [facility] Work Phone: Glucose [Mass/Vol] 91 mg/dL 74-106 [facility] Work Phone: Neutrophils (Bld) [#/Vol] 2.1 10*3/uL 2.0-7.7 [facility] Work Phone: Neutrophils/100 WBC (Bld) 49.5 % 47-70 [facility] Work Phone: Potassium [Moles/Vol] 4.2 mmol/L 3.5-5.1 [facility] Work Phone: Protein [Mass/Vol] 7.1 g/dL 6.4-8.2 [facility] Work Phone: Sodium [Moles/Vol] 139 mmol/L 136-145 [facility] Work Phone: WBC (Bld) [#/Vol] 4.3 10*3/uL 4.4-11.0 [facility] Work Phone: Blood erythrocytes count (nu mber/volume)on 05-12-2022 RBC (Bld) [#/Vol] 3.86 10*6/uL 4.2-5.4 [facility] Work Phone: Blood hemoglobin measurement (mass/volume)on 05-12-2022 Hemoglobin (Bld) [Mass/Vol] 12.4 g/dL 12.0-15.0 [facility] Work Phone: Blood lymphocytes/100 leukoc yteson 05-12-2022 Lymphocytes/100 WBC (Bld) 35.6 % 19-41 [facility] Work Phone: [phone] Blood monocytes/100 leukocyt eson 05-12-2022 Monocytes/100 WBC (Bld) 10.2 % 0-10 [facility] Work Phone: Blood platelet mean volumeon 05-12-2022 Platelet mean volume (Bld) [Entitic vol] 11.2 fL 6.2-12.0 [facility] Work Phone: Determination of erythrocyte mean corpuscular volume (MCV)on 05-12-2022 MCV (RBC) [Entitic vol] 95.1 fL 81-99 [facility] Work Phone: Hematocrit Auto (Bld) [Volum e fraction]on 05-12-2022 Hematocrit (Bld) [Volume fraction] 36.7 % 37-47 [facility] Work Phone: Laboratory - Chemistry and C hemistry - challengeon 05-12-2022 ALP [Catalytic activity/Vol] 61 U/L 45-117 [facility] Work Phone: ALT [Catalytic activity/Vol] 26 U/L 13-56 [facility] Work Phone: CO2 [Moles/Vol] 30.0 mmol/L 21.0-32.0 [facility] Work Phone: Globulin (S) [Mass/Vol] 3.3 g/dL 2.2-4.2 [facility] Work Phone: Urea nitrogen/Creatinine [Mass ratio] 22.5 mg/mg 10-20 [facility] Work Phone: Laboratory - Hematology and Cell countson 05-12-2022 Erythrocyte distribution width (RBC) [Entitic vol] 42.8 fL 35.1-43.9 [facility] Work Phone: Erythrocyte distribution width (RBC) [Ratio] 12.3 % 11.6-14.6 [facility] Work Phone: Immature granulocytes/100 WBC (Bld) 0.200 % 0.0-0.9 [facility] Work Phone: Comment on above: IG% - Immature Granu locytes (promyelocytes, myelocytes and metamyelocytes) > 1% indicates that a LEFT SHIFT is Present. MCH (RBC) [Entitic mass] 32.1 pg 27.0-32.0 [facility] Work Phone: Nucleated RBC/100 WBC (Bld) [Ratio] 0 % 0-5 [facility] Work Phone: MCHC Auto (RBC) [Mass/Vol]on 05-12-2022 MCHC (RBC) [Mass/Vol] 33.8 g/dL 32-36 [facility] Work Phone: No Panel Informationon 05-12 Estimated GFR (MDRD) Amer 52 mL/min >60 [facility] Work Phone: Comment on above: GFR Calc Estimated GFR (MDRD) Non-Af Amer 43 mL/min >60 [facility] Work Phone: Comment on above: Non- GFR Calc Platelets bldon 05-12-2022 Platelets (Bld) [#/Vol] 174 10*3/uL 150-450 [facility] Work Phone: Serum or plasma albumin nick urement (mass/volume)on 05-12-2022 Albumin [Mass/Vol] 3.8 g/dL 3.2-5.0 [facility] Work Phone: Serum or plasma albumin/glob ulin mass ratioon 05-12-2022 Albumin/Globulin [Mass ratio] 1.2 {ratio} 0.9-2.4 [facility] Work Phone: Serum or plasma calcium nick urement (mass/volume)on 05-12-2022 Calcium [Mass/Vol] 9.3 mg/dL 8.5-10.1 [facility] Work Phone: Serum or plasma creatinine m easurement (mass/volume)on 05-12-2022 Creatinine [Mass/Vol] 1.29 mg/dL 0.55-1.02 [facility] Work Phone: Comment on above: The validity of the calculated GFR & GFRAA in patients over 70 years has not been determined. Clinical correlation is essential. Serum or plasma urea nitroge n measurement (mass/volume)on 05-12-2022 Urea nitrogen [Mass/Vol] 29 mg/dL 7-18 [facility] Work Phone: Thin prep Papanicolaou smear with manual screeningon 05-12-2022 Thin prep Papanicolaou smear with manual screening 27 U/L 15-37 [facility] Work Phone: Thin prep Papanicolaou smear with manual screening 5 5-15 [facility] Work Phone: Absolute lymphocyte counton 11-09-2021 Lymphocytes Auto (Unsp spec) [#/Vol] 1.29 10*3/uL 0.83-4.51 [facility] Work Phone: Basophil percentageon 2021 Basophils/100 WBC (Bld) 0.7 % 0-1 [facility] Work Phone: Bilirubin [Mass/Vol] 0.80 mg/dL 0.20-1.00 [facility] Work Phone: Comment on above: For patients on eltr ombopag therapy, use of Dimension [place] TBIL is not recommended. Chloride [Moles/Vol] 109 mmol/L 98-107 [facility] Work Phone: Eosinophils/100 WBC (Bld) 1.2 % 0-5 [facility] Work Phone: Glucose [Mass/Vol] 101 mg/dL 74-106 [facility] Work Phone: Comment on above: Fasting Glucose resu lt from 100 to 125 mg/dL suggests IMPAIRED HOMEOSTASIS per A.D.A. criteria. Neutrophils (Bld) [#/Vol] 3.8 10*3/uL 2.0-7.7 [facility] Work Phone: Neutrophils/100 WBC (Bld) 67.5 % 47-70 [facility] Work Phone: Potassium [Moles/Vol] 4.4 mmol/L 3.5-5.1 [facility] Work Phone: Protein [Mass/Vol] 7.1 g/dL 6.4-8.2 [facility] Work Phone: Sodium [Moles/Vol] 142 mmol/L 136-145 [facility] Work Phone: WBC (Bld) [#/Vol] 5.7 10*3/uL 4.4-11.0 [facility] Work Phone: [phone] Blood erythrocytes count (nu mber/volume)on 11-09-2021 RBC (Bld) [#/Vol] 3.79 10*6/uL 4.2-5.4 [facility] Work Phone: Blood hemoglobin measurement (mass/volume)on 11-09-2021 Hemoglobin (Bld) [Mass/Vol] 11.8 g/dL 12.0-15.0 [facility] Work Phone: Blood lymphocytes/100 leukoc yteson 11-09-2021 Lymphocytes/100 WBC (Bld) 22.8 % 19-41 [facility] Work Phone: Blood monocytes/100 leukocyt eson 11-09-2021 Monocytes/100 WBC (Bld) 7.4 % 0-10 [facility] Work Phone: Blood platelet mean volumeon 11-09-2021 Platelet mean volume (Bld) [Entitic vol] 12.4 fL 6.2-12.0 [facility] Work Phone: Determination of erythrocyte mean corpuscular volume (MCV)on 11-09-2021 MCV (RBC) [Entitic vol] 95.3 fL 81-99 [facility] Work Phone: Hematocrit Auto (Bld) [Volum e fraction]on 11-09-2021 Hematocrit (Bld) [Volume fraction] 36.1 % 37-47 [facility] Work Phone: Laboratory - Chemistry and C hemistry - challengeon 11-09-2021 ALP [Catalytic activity/Vol] 68 U/L 45-117 [facility] Work Phone: ALT [Catalytic activity/Vol] 49 U/L 13-56 [facility] Work Phone: CO2 [Moles/Vol] 28.0 mmol/L 21.0-32.0 [facility] Work Phone: Globulin (S) [Mass/Vol] 3.2 g/dL 2.2-4.2 [facility] Work Phone: Urea nitrogen/Creatinine [Mass ratio] 25.5 mg/mg 10-20 [facility] Work Phone: Laboratory - Hematology and Cell countson 11-09-2021 Erythrocyte distribution width (RBC) [Entitic vol] 43.9 fL 35.1-43.9 [facility] Work Phone: Erythrocyte distribution width (RBC) [Ratio] 12.6 % 11.6-14.6 [facility] Work Phone: Immature granulocytes/100 WBC (Bld) 0.400 % 0.0-0.9 [facility] Work Phone: Comment on above: IG% - Immature Granu locytes (promyelocytes, myelocytes and metamyelocytes) > 1% indicates that a LEFT SHIFT is Present. MCH (RBC) [Entitic mass] 31.1 pg 27.0-32.0 [facility] Work Phone: Nucleated RBC/100 WBC (Bld) [Ratio] 0 % 0-5 [facility] Work Phone: MCHC Auto (RBC) [Mass/Vol]on 11-09-2021 MCHC (RBC) [Mass/Vol] 32.7 g/dL 32-36 [facility] Work Phone: No Panel Informationon 11-09 Estimated GFR (MDRD) Amer 63 mL/min >60 [facility] Work Phone: Comment on above: GFR Calc Estimated GFR (MDRD) Non-Af Amer 52 mL/min >60 [facility] Work Phone: Comment on above: Non- GFR Calc Platelets bldon 11-09-2021 Platelets (Bld) [#/Vol] 164 10*3/uL 150-450 [facility] Work Phone: Serum or plasma albumin nick urement (mass/volume)on 11-09-2021 Albumin [Mass/Vol] 3.9 g/dL 3.2-5.0 [facility] Work Phone: Serum or plasma albumin/glob ulin mass ratioon 11-09-2021 Albumin/Globulin [Mass ratio] 1.2 {ratio} 0.9-2.4 [facility] Work Phone: Serum or plasma calcium nick urement (mass/volume)on 11-09-2021 Calcium [Mass/Vol] 9.3 mg/dL 8.5-10.1 [facility] Work Phone: Serum or plasma creatinine m easurement (mass/volume)on 11-09-2021 Creatinine [Mass/Vol] 1.10 mg/dL 0.55-1.02 [facility] Work Phone: Comment on above: The validity of the calculated GFR & GFRAA in patients over 70 years has not been determined. Clinical correlation is essential. Serum or plasma urea nitroge n measurement (mass/volume)on 11-09-2021 Urea nitrogen [Mass/Vol] 28 mg/dL 7-18 [facility] Work Phone: Thin prep Papanicolaou smear with manual screeningon 11-09-2021 Thin prep Papanicolaou smear with manual screening 40 U/L 15-37 [facility] Work Phone: Thin prep Papanicolaou smear with manual screening 5 5-15 [facility] Work Phone: No Panel Information [facility] Vital Signs Date Time Vital Sign Value Performing Clinician Elo stewart 03-15-2025 09:48-0400 Body mass index (BMI) [Ratio] 20.39 kg/m2 Hiram Tanneri DO Work Phone: [facility] 03-15-2025 09:48-0400 Body temperature 97.81 [degF] Hiram Tanneri DO Work Phone: [facility] 03-15-2025 09:48-0400 Body weight 50.58 kg Hiram Tanneri DO Work Phone: [facility] 03-15-2025 09:48-0400 Diastolic blood pressure 92 mm[Hg] Hiram Ciroi DO Work Phone: [facility] 03-15-2025 09:48-0400 Heart rate 88 /min Hiram Tanneri DO Work Phone: [facility] 03-15-2025 09:48-0400 SaO2% (BldA) [Mass fraction] 98 % Hiram Ciroi DO Work Phone: [facility] 03-15-2025 09:48-0400 Systolic blood pressure 184 mm[Hg] Hiram Ciroi DO Work Phone: [facility] 03-05-2025 08:50-0400 Body temperature 98.71 [degF] Treatment Wstr Work Phone: [facility] 03-05-2025 08:50-0400 Diastolic blood pressure 76 mm[Hg] Treatment [facility]str Work Phone: [facility] 03-05-2025 08:50-0400 Heart rate 81 /min Treatment [facility]str Work Phone: [facility] 03-05-2025 08:50-0400 SaO2% (BldA) [Mass fraction] 100 % Treatment [facility]str Work Phone: [facility] 03-05-2025 08:50-0400 Systolic blood pressure 169 mm[Hg] Treatment [facility]str Work Phone: [facility] 02-22-2025 09:18-0400 Body temperature 99 [degF] Treatment [facility]str Work Phone: [facility] 02-22-2025 09:18-0400 Diastolic blood pressure 81 mm[Hg] Treatment Wstr Work Phone: [facility] 02-22-2025 09:18-0400 Heart rate 80 /min Treatment [facility]str Work Phone: [facility] 02-22-2025 09:18-0400 Respiratory rate 16 /min Treatment [facility]str Work Phone: [facility] 02-22-2025 09:18-0400 SaO2% (BldA) [Mass fraction] 100 % Treatment [facility]str Work Phone: [facility] 02-22-2025 09:18-0400 Systolic blood pressure 158 mm[Hg] Treatment [facility]str Work Phone: [facility] 02-20-2025 09:25-0400 Body temperature 99.61 [degF] Treatment [facility]str Work Phone: [facility] 02-20-2025 09:25-0400 Diastolic blood pressure 70 mm[Hg] Treatment Wstr Work Phone: [facility] 02-20-2025 09:25-0400 Heart rate 64 /min Treatment [facility]str Work Phone: [facility] 02-20-2025 09:25-0400 Respiratory rate 14 /min Treatment [facility]str Work Phone: [facility] 02-20-2025 09:25-0400 SaO2% (BldA) [Mass fraction] 99 % Treatment [facility]str Work Phone: [facility] 02-20-2025 09:25-0400 Systolic blood pressure 138 mm[Hg] Treatment [facility]str Work Phone: [facility] 02-18-2025 13:33-0400 Body temperature 99.7 [degF] Treatment [facility]str Work Phone: [facility] 02-18-2025 13:33-0400 Diastolic blood pressure 71 mm[Hg] Treatment Wstr Work Phone: [facility] 02-18-2025 13:33-0400 Heart rate 70 /min Treatment [facility]str Work Phone: [facility] 02-18-2025 13:33-0400 Respiratory rate 16 /min Treatment [facility]str Work Phone: [facility] 02-18-2025 13:33-0400 SaO2% (BldA) [Mass fraction] 99 % Treatment [facility]str Work Phone: [facility] 02-18-2025 13:33-0400 Systolic blood pressure 151 mm[Hg] Treatment Wstr Work Phone: [facility] 02-15-2025 13:22-0400 Body temperature 98.6 [degF] Treatment [facility]str Work Phone: [facility] 02-15-2025 13:22-0400 Diastolic blood pressure 63 mm[Hg] Treatment [facility]str Work Phone: [facility] 02-15-2025 13:22-0400 Heart rate 87 /min Treatment [facility]str Work Phone: [facility] 02-15-2025 13:22-0400 SaO2% (BldA) [Mass fraction] 98 % Treatment [facility]str Work Phone: [facility] 02-15-2025 13:22-0400 Systolic blood pressure 142 mm[Hg] Treatment [facility]str Work Phone: [facility] 02-13-2025 08:00-0400 Body temperature 97.59 [degF] Treatment [facility]str Work Phone: [facility] 02-13-2025 08:00-0400 Diastolic blood pressure 77 mm[Hg] Treatment Wstr Work Phone: [facility] 02-13-2025 08:00-0400 Heart rate 79 /min Treatment [facility]str Work Phone: [facility] 02-13-2025 08:00-0400 Systolic blood pressure 157 mm[Hg] Treatment [facility]str Work Phone: [facility] 02-08-2025 14:36-0400 Body mass index (BMI) [Ratio] 20.76 kg/m2 Hiram Masci DO Work Phone: [facility] 02-08-2025 14:36-0400 Body temperature 98.01 [degF] Hiram Masci DO Work Phone: [facility] 02-08-2025 14:36-0400 Body weight 51.48 kg Hiram Masci DO Work Phone: [facility] 02-08-2025 14:36-0400 Diastolic blood pressure 81 mm[Hg] Hiram Masci DO Work Phone: [facility] 02-08-2025 14:36-0400 Heart rate 77 /min Hiram Masci DO Work Phone: [facility] 02-08-2025 14:36-0400 SaO2% (BldA) [Mass fraction] 100 % Hiram Masci DO Work Phone: [facility] 02-08-2025 14:36-0400 Systolic blood pressure 177 mm[Hg] Hiram Masci DO Work Phone: [facility] 02-08-2025 14:27-0400 Body mass index (BMI) [Ratio] 20.76 kg/m2 [facility] Work Phone: [facility] 02-08-2025 14:27-0400 Body weight 51.48 kg [facility] Work Phone: [facility] 11-30-2024 13:23-0400 Body mass index (BMI) [Ratio] 20.85 kg/m2 Guerrero Vilchis MD Work Phone: [facility] 11-30-2024 13:23-0400 Body temperature 98.1 [degF] Guerrero Vilchis MD Work Phone: [facility] 11-30-2024 13:23-0400 Body weight 51.71 kg Guerrero Vilchis MD Work Phone: [facility] 11-30-2024 13:23-0400 Diastolic blood pressure 76 mm[Hg] Guerrero Vilchis MD Work Phone: [facility] 11-30-2024 13:23-0400 Heart rate 65 /min Guerrero Vilchis MD Work Phone: [facility] 11-30-2024 13:23-0400 SaO2% (BldA) [Mass fraction] 100 % Guerrero Vilchis MD Work Phone: [facility] 11-30-2024 13:23-0400 Systolic blood pressure 177 mm[Hg] Guerrero Vilchis MD Work Phone: [facility] 11-02-2024 10:10-0400 Body mass index (BMI) [Ratio] 20.97 kg/m2 Fadi Ramirez MATERIALS MANAGEMENT MANAGER.HOUSEKEEPING ASSISTANT Work Phone: [facility] 11-02-2024 10:10-0400 Body temperature 97.81 [degF] Fadi Ramirez MATERIALS MANAGEMENT MANAGER.HOUSEKEEPING ASSISTANT Work Phone: [facility] 11-02-2024 10:10-0400 Body weight 52 kg Washington Ramirez MATERIALS MANAGEMENT MANAGER.HOUSEKEEPING ASSISTANT Work Phone: [facility] 11-02-2024 10:10-0400 Diastolic blood pressure 75 mm[Hg] Fadi Ramirez MATERIALS MANAGEMENT MANAGER.HOUSEKEEPING ASSISTANT Work Phone: [facility] 11-02-2024 10:10-0400 Heart rate 87 /min Washington Ramirez MATERIALS MANAGEMENT MANAGER.HOUSEKEEPING ASSISTANT Work Phone: [facility] 11-02-2024 10:10-0400 SaO2% (BldA) [Mass fraction] 96 % Washington Ramirez MATERIALS MANAGEMENT MANAGER.HOUSEKEEPING ASSISTANT Work Phone: [facility] 11-02-2024 10:10-0400 Systolic blood pressure 176 mm[Hg] Fadi Ramirez MATERIALS MANAGEMENT MANAGER.HOUSEKEEPING ASSISTANT Work Phone: [facility] 11-02-2024 09:41-0400 Body mass index (BMI) [Ratio] 21.03 kg/m2 [facility] Work Phone: [facility] 11-02-2024 09:41-0400 Body weight 52.16 kg [facility] Work Phone: [facility] 08-27-2024 10:54-0500 Body height 157.5 cm [facility] 2 [facility] 08-27-2024 10:54-0500 Body mass index (BMI) [Ratio] 20.85 kg/m2 [facility] 2 [facility] 08-27-2024 10:54-0500 Body temperature 97.9 [degF] [facility] 2 [facility] 08-27-2024 10:54-0500 Body weight 51.71 kg [facility] 2 [facility] 08-27-2024 10:54-0500 Diastolic blood pressure 78 mm[Hg] [facility] 2 [facility] 08-27-2024 10:54-0500 Heart rate 79 /min [facility] 2 [facility] 08-27-2024 10:54-0500 Respiratory rate 16 /min [address] 08-27-2024 10:54-0500 SaO2% (BldA) [Mass fraction] 100 % [facility] 2 [facility] 08-27-2024 10:54-0500 Systolic blood pressure 161 mm[Hg] [facility] 2 [facility] 08-23-2024 11:48-0500 Body mass index (BMI) [Ratio] 20.67 kg/m2 Guerrero Vilchis MD Work Phone: [facility] 08-23-2024 11:48-0500 Body temperature 97.7 [degF] uGerrero Vilchis MD Work Phone: [facility] 08-23-2024 11:48-0500 Body weight 51.26 kg Guerrero Vilchis MD Work Phone: [facility] 08-23-2024 11:48-0500 Diastolic blood pressure 77 mm[Hg] Guerrero Vilchis MD Work Phone: [facility] 08-23-2024 11:48-0500 Heart rate 94 /min Guerrero Vilchis MD Work Phone: [facility] 08-23-2024 11:48-0500 SaO2% (BldA) [Mass fraction] 100 % Guerrero Vilchis MD Work Phone: [facility] 08-23-2024 11:48-0500 Systolic blood pressure 174 mm[Hg] Guerrero Vilchis MD Work Phone: [facility] 08-10-2024 09:29-0500 Body height 157.5 cm Rohit Miles MD Work Phone: [facility] 08-10-2024 09:29-0500 Body mass index (BMI) [Ratio] 20.97 kg/m2 Rohit Miles MD Work Phone: [facility] 08-10-2024 09:29-0500 Body weight 52 kg Rohit Miles MD Work Phone: [facility] 08-10-2024 09:29-0500 Diastolic blood pressure 80 mm[Hg] Rohit Miles MD Work Phone: [facility] 08-10-2024 09:29-0500 Heart rate 101 /min Rohit Miles MD Work Phone: [facility] 08-10-2024 09:29-0500 Systolic blood pressure 157 mm[Hg] Rohit Miles MD Work Phone: [facility] 08-03-2024 10:04-0500 Body mass index (BMI) [Ratio] 21.13 kg/m2 Hiram Mccoy DO Work Phone: [facility] 08-03-2024 10:04-0500 Body temperature 97.59 [degF] Hiram Tanneri DO Work Phone: [facility] 08-03-2024 10:04-0500 Body weight 52.39 kg Hiram Mccoy DO Work Phone: [facility] 08-03-2024 10:04-0500 Diastolic blood pressure 74 mm[Hg] Hiram Mccoy DO Work Phone: [facility] 08-03-2024 10:04-0500 Heart rate 80 /min Hiram Mccoy DO Work Phone: [facility] 08-03-2024 10:04-0500 SaO2% (BldA) [Mass fraction] 100 % Hiram Mccoy DO Work Phone: [facility] 08-03-2024 10:04-0500 Systolic blood pressure 172 mm[Hg] Hiram Mccoy DO Work Phone: [facility] 08-03-2024 09:55-0500 Body mass index (BMI) [Ratio] 21.13 kg/m2 [facility] Work Phone: [facility] 08-03-2024 09:55-0500 Body weight 52.39 kg [facility] Work Phone: [facility] 05-17-2024 10:18-0400 Body mass index (BMI) [Ratio] 21.22 kg/m2 Mayte Gonzalez APRN.HOUSEKEEPING ASSISTANT Work Phone: [facility] 05-17-2024 10:18-0400 Body temperature 98.01 [degF] Mayte Gonzalez APRN.HOUSEKEEPING ASSISTANT Work Phone: [facility] 05-17-2024 10:18-0400 Body weight 52.62 kg Mayte Gonzalez APRN.HOUSEKEEPING ASSISTANT Work Phone: [facility] 05-17-2024 10:18-0400 Diastolic blood pressure 76 mm[Hg] Mayte Gonzalez APRN.HOUSEKEEPING ASSISTANT Work Phone: [facility] 05-17-2024 10:18-0400 Heart rate 62 /min Mayte Gonzalez APRN.HOUSEKEEPING ASSISTANT Work Phone: [facility] 05-17-2024 10:18-0400 SaO2% (BldA) [Mass fraction] 98 % Mayte Gonzalez APRN.HOUSEKEEPING ASSISTANT Work Phone: [facility] 05-17-2024 10:18-0400 Systolic blood pressure 189 mm[Hg] Mayte Gonzalez BRANDEN Work Phone: [facility] 05-09-2024 11:44-0400 Body height 157.5 cm Rohit Miles MD Work Phone: [facility] 05-09-2024 11:44-0400 Body mass index (BMI) [Ratio] 21.22 kg/m2 Rohit Miles MD Work Phone: [facility] 05-09-2024 11:44-0400 Body weight 52.62 kg Rohit Miles MD Work Phone: [facility] 05-09-2024 11:44-0400 Diastolic blood pressure 97 mm[Hg] Rohit Miles MD Work Phone: [facility] 05-09-2024 11:44-0400 Heart rate 68 /min Rohit Miles MD Work Phone: [facility] 05-09-2024 11:44-0400 Systolic blood pressure 187 mm[Hg] Rohit Miles MD Work Phone: [facility] 05-03-2024 11:33-0400 Body mass index (BMI) [Ratio] 21.49 kg/m2 Hiram Masci DO Work Phone: [facility] 05-03-2024 11:33-0400 Body temperature 97.3 [degF] Hiram Masci DO Work Phone: [facility] 05-03-2024 11:33-0400 Body weight 53.3 kg Hiram Masci DO Work Phone: [facility] 05-03-2024 11:33-0400 Diastolic blood pressure 78 mm[Hg] Hiram Masci DO Work Phone: [facility] 05-03-2024 11:33-0400 Heart rate 68 /min Hiram Masci DO Work Phone: [facility] 05-03-2024 11:33-0400 SaO2% (BldA) [Mass fraction] 100 % Hiram Masci DO Work Phone: [facility] 05-03-2024 11:33-0400 Systolic blood pressure 199 mm[Hg] Hiram Mccoy DO Work Phone: [facility] 05-03-2024 11:18-0400 Body mass index (BMI) [Ratio] 21.49 kg/m2 [facility] Work Phone: [facility] 05-03-2024 11:18-0400 Body weight 53.3 kg [facility] Work Phone: [facility] 04-20-2024 14:30-0400 Body height 157.[address] [facility] 04-20-2024 14:30-0400 Body mass index (BMI) [Ratio] 21.58 kg/m2 [facility] 1 [facility] 04-20-2024 14:30-0400 Body temperature 97.5 [degF] [facility] 1 [facility] 04-20-2024 14:30-0400 Body weight 53.52 kg P[facility] 1 [facility] 04-20-2024 14:30-0400 Diastolic blood pressure 70 mm[Hg] Pst 1 [facility] 04-20-2024 14:30-0400 Heart rate 64 /min P[facility] 1 [facility] 04-20-2024 14:30-0400 Respiratory rate 14 /min P[facility] 1 [facility] 04-20-2024 14:30-0400 SaO2% (BldA) [Mass fraction] 100 % P[facility] 1 [facility] 04-20-2024 14:30-0400 Systolic blood pressure 151 mm[Hg] Pst 1 [facility] 04-06-2024 09:43-0400 Body height 157.5 cm Rohit Miles MD Work Phone: [facility] 04-06-2024 09:43-0400 Body mass index (BMI) [Ratio] 21.22 kg/m2 Rohit Miles MD Work Phone: [facility] 04-06-2024 09:43-0400 Body weight 52.62 kg Rohit Miles MD Work Phone: [facility] 04-06-2024 09:43-0400 Diastolic blood pressure 76 mm[Hg] Rohit Miles MD Work Phone: [facility] 04-06-2024 09:43-0400 Heart rate 71 /min Rohit Miles MD Work Phone: [facility] 04-06-2024 09:43-0400 Systolic blood pressure 189 mm[Hg] Rohit Miles MD Work Phone: [facility] 03-19-2024 15:10-0400 Body mass index (BMI) [Ratio] 21.4 kg/m2 [facility] Work Phone: [facility] 03-19-2024 15:10-0400 Body temperature 97.39 [degF] Hiram Masci DO Work Phone: [facility] 03-19-2024 15:10-0400 Body weight 53.07 kg [facility] Work Phone: [facility] 03-19-2024 15:10-0400 Diastolic blood pressure 84 mm[Hg] Hiram Masci DO Work Phone: [facility] 03-19-2024 15:10-0400 Heart rate 65 /min Hiram Masci DO Work Phone: [facility] 03-19-2024 15:10-0400 SaO2% (BldA) [Mass fraction] 98 % Hiram Masci DO Work Phone: [facility] 03-19-2024 15:10-0400 Systolic blood pressure 172 mm[Hg] Hiram Masci DO Work Phone: [facility] 02-13-2024 10:24-0400 Body mass index (BMI) [Ratio] 21.4 kg/m2 Guerrero Vilchis MD Work Phone: [facility] 02-13-2024 10:24-0400 Body temperature 98.29 [degF] Guerrero Vilchis MD Work Phone: [facility] 02-13-2024 10:24-0400 Body weight 53.07 kg Guerrero Vilchis MD Work Phone: [facility] 02-13-2024 10:24-0400 Diastolic blood pressure 106 mm[Hg] Guerrero Vilchis MD Work Phone: [facility] 02-13-2024 10:24-0400 Heart rate 93 /min Guerrero Vilchis MD Work Phone: [facility] 02-13-2024 10:24-0400 SaO2% (BldA) [Mass fraction] 99 % Guerrero Vilchis MD Work Phone: [facility] 02-13-2024 10:24-0400 Systolic blood pressure 190 mm[Hg] Guerrero Vilchis MD Work Phone: [facility] 02-06-2024 16:19-0400 Diastolic blood pressure 78 mm[Hg] Hiram Masci DO Work Phone: [facility] 02-06-2024 16:19-0400 Systolic blood pressure 210 mm[Hg] Hiram Masci DO Work Phone: [facility] 02-06-2024 15:10-0400 Body mass index (BMI) [Ratio] 21.77 kg/m2 Hiram Masci DO Work Phone: [facility] 02-06-2024 15:10-0400 Body temperature 97.2 [degF] Hiram Masci DO Work Phone: [facility] 02-06-2024 15:10-0400 Body weight 53.98 kg Hiram Masci DO Work Phone: [facility] 02-06-2024 15:10-0400 Heart rate 63 /min Hiram Masci DO Work Phone: [facility] 02-06-2024 15:10-0400 SaO2% (BldA) [Mass fraction] 100 % Hiram Masci DO Work Phone: [facility] 02-06-2024 14:59-0400 Body mass index (BMI) [Ratio] 21.77 kg/m2 [facility] Work Phone: [facility] 02-06-2024 14:59-0400 Body weight 53.98 kg [facility] Work Phone: [facility] 01-23-2024 07:48-0400 Body mass index (BMI) [Ratio] 21.95 kg/m2 Treatment [facility] Work Phone: [facility] 01-23-2024 07:48-0400 Body temperature 97.81 [degF] [facility] Work Phone: [facility] 01-23-2024 07:48-0400 Body weight 54.43 kg Treatment [facility] Work Phone: [facility] 01-23-2024 07:48-0400 Diastolic blood pressure 67 mm[Hg] [facility] Work Phone: [facility] 01-23-2024 07:48-0400 Heart rate 58 /min [facility] Work Phone: [facility] 01-23-2024 07:48-0400 SaO2% (BldA) [Mass fraction] 100 % [facility] Work Phone: [facility] 01-23-2024 07:48-0400 Systolic blood pressure 169 mm[Hg] [facility] Work Phone: [facility] 01-16-2024 15:11-0400 Body mass index (BMI) [Ratio] 21.49 kg/m2 Hiram Masci DO Work Phone: [facility] 01-16-2024 15:11-0400 Body temperature 97.59 [degF] Hiram Masci DO Work Phone: [facility] 01-16-2024 15:11-0400 Body weight 53.3 kg Hiram Masci DO Work Phone: [facility] 01-16-2024 15:11-0400 Diastolic blood pressure 84 mm[Hg] Hiram Masci DO Work Phone: [facility] 01-16-2024 15:11-0400 Heart rate 72 /min Hiram Masci DO Work Phone: [facility] 01-16-2024 15:11-0400 SaO2% (BldA) [Mass fraction] 98 % Hiram Tanneri DO Work Phone: [facility] 01-16-2024 15:11-0400 Systolic blood pressure 187 mm[Hg] Hiram Ciroi DO Work Phone: [facility] 01-16-2024 14:57-0400 Body mass index (BMI) [Ratio] 21.49 kg/m2 [facility] Work Phone: [facility] 01-16-2024 14:57-0400 Body weight 53.3 kg [facility] Work Phone: [facility] 12-28-2023 08:15-0400 Body temperature 97.7 [degF] Treatment [facility]str Work Phone: [facility] 12-28-2023 08:15-0400 Diastolic blood pressure 84 mm[Hg] Treatment [facility] Work Phone: [facility] 12-28-2023 08:15-0400 Heart rate 81 /min Treatment [facility] Work Phone: [facility] 12-28-2023 08:15-0400 Respiratory rate 16 /min [facility] Work Phone: [facility] 12-28-2023 08:15-0400 SaO2% (BldA) [Mass fraction] 97 % [facility] Work Phone: [facility] 12-28-2023 08:15-0400 Systolic blood pressure 174 mm[Hg] Treatment [facility] Work Phone: [facility] 12-27-2023 15:55-0400 Body mass index (BMI) [Ratio] 21.49 kg/m2 Hiram Tanneri DO Work Phone: [facility] 12-27-2023 15:55-0400 Body temperature 98.01 [degF] Hiram Tanneri DO Work Phone: [facility] 12-27-2023 15:55-0400 Body weight 53.3 kg Hiram Tanneri DO Work Phone: [facility] 12-27-2023 15:55-0400 Diastolic blood pressure 71 mm[Hg] Hiram Tanneri DO Work Phone: [facility] 12-27-2023 15:55-0400 Heart rate 73 /min Hiram Tanneri DO Work Phone: [facility] 12-27-2023 15:55-0400 SaO2% (BldA) [Mass fraction] 100 % Hiram Tanneri DO Work Phone: [facility] 12-27-2023 15:55-0400 Systolic blood pressure 165 mm[Hg] Hiram Tanneri DO Work Phone: [facility] 12-27-2023 15:45-0400 Body mass index (BMI) [Ratio] 21.49 kg/m2 [facility] Work Phone: [facility] 12-27-2023 15:45-0400 Body weight 53.3 kg [facility] Work Phone: [facility] 12-06-2023 09:55-0400 Body temperature 98.01 [degF] Treatment [facility] Work Phone: [facility] 12-06-2023 09:55-0400 Diastolic blood pressure 76 mm[Hg] Treatment [facility] Work Phone: [facility] Comment on above: pt states she has white coat syndrome and elevated BP is not unusual 12-06-2023 09:55-0400 Heart rate 72 /min [facility] Work Phone: [facility] 12-06-2023 09:55-0400 SaO2% (BldA) [Mass fraction] 98 % [facility] Work Phone: [facility] 12-06-2023 09:55-0400 Systolic blood pressure 176 mm[Hg] Treatment [facility] Work Phone: [facility] Comment on above: pt states she has white coat syndrome and elevated BP is not unusual 12-05-2023 13:40-0400 Body mass index (BMI) [Ratio] 20.94 kg/m2 [facility] Work Phone: [facility] 12-05-2023 13:40-0400 Body weight 51.94 kg [facility] Work Phone: [facility] 11-18-2023 10:18-0400 Body mass index (BMI) [Ratio] 21.07 kg/m2 Washington Ramirez MATERIALS MANAGEMENT MANAGER.HOUSEKEEPING ASSISTANT Work Phone: [facility] 11-18-2023 10:18-0400 Body temperature 97.5 [degF] Fadi Ramirez MATERIALS MANAGEMENT MANAGER.HOUSEKEEPING ASSISTANT Work Phone: [facility] 11-18-2023 10:18-0400 Body weight 52.25 kg Fadi Ramirez MATERIALS MANAGEMENT MANAGER.HOUSEKEEPING ASSISTANT Work Phone: [facility] 11-18-2023 10:18-0400 Diastolic blood pressure 81 mm[Hg] Fadi Ramirez MATERIALS MANAGEMENT MANAGER.HOUSEKEEPING ASSISTANT Work Phone: [facility] 11-18-2023 10:18-0400 Heart rate 71 /min Fadi Ramirez MATERIALS MANAGEMENT MANAGER.HOUSEKEEPING ASSISTANT Work Phone: [facility] 11-18-2023 10:18-0400 Systolic blood pressure 188 mm[Hg] Fadi Ramirez MATERIALS MANAGEMENT MANAGER.HOUSEKEEPING ASSISTANT Work Phone: [facility] 11-18-2023 09:00-0400 Body mass index (BMI) [Ratio] 21.03 kg/m2 [facility] Work Phone: [facility] 11-18-2023 09:00-0400 Body weight 52.16 kg [facility] Work Phone: [facility] 11-11-2023 10:43-0400 Body temperature 97.9 [degF] Mayte Gonzalez MATERIALS MANAGEMENT MANAGER.HOUSEKEEPING ASSISTANT Work Phone: [facility] 11-11-2023 10:43-0400 Body weight 52.62 kg Mayte Gonzalez MATERIALS MANAGEMENT MANAGER.HOUSEKEEPING ASSISTANT Work Phone: [facility] 11-11-2023 10:43-0400 Diastolic blood pressure 79 mm[Hg] Mayte Gonzalez APRN.HOUSEKEEPING ASSISTANT Work Phone: [facility] 11-11-2023 10:43-0400 Heart rate 86 /min Mayte Gonzalez APRN.HOUSEKEEPING ASSISTANT Work Phone: [facility] 11-11-2023 10:43-0400 SaO2% (BldA) [Mass fraction] 96 % Mayte Gonzalez MATERIALS MANAGEMENT MANAGER.HOUSEKEEPING ASSISTANT Work Phone: [facility] 11-11-2023 10:43-0400 Systolic blood pressure 194 mm[Hg] Mayte Gonzalez APRN.HOUSEKEEPING ASSISTANT Work Phone: [facility] 10-13-2023 15:48-0400 Body temperature 98.2 [degF] Guerrero Vilchis MD Work Phone: [facility] 10-13-2023 15:48-0400 Body weight 52.62 kg Guerrero Vilchis MD Work Phone: [facility] 10-13-2023 15:48-0400 Diastolic blood pressure 94 mm[Hg] Guerrero Vilchis MD Work Phone: [facility] 10-13-2023 15:48-0400 Heart rate 108 /min Guerrero Vilchis MD Work Phone: [facility] 10-13-2023 15:48-0400 SaO2% (BldA) [Mass fraction] 99 % Guerrero Vilchis MD Work Phone: [facility] 10-13-2023 15:48-0400 Systolic blood pressure 184 mm[Hg] Guerrero Vilchis MD Work Phone: [facility] 10-07-2023 10:14-0400 Body temperature 97.9 [degF] Hiram Mccoy DO Work Phone: [facility] 10-07-2023 10:14-0400 Body weight 53.8 kg Hiram Mccoy DO Work Phone: [facility] 10-07-2023 10:14-0400 Diastolic blood pressure 79 mm[Hg] Hiram Masci DO Work Phone: [facility] 10-07-2023 10:14-0400 Heart rate 80 /min Hiram Masci DO Work Phone: [facility] 10-07-2023 10:14-0400 SaO2% (BldA) [Mass fraction] 99 % Hiram Masci DO Work Phone: [facility] 10-07-2023 10:14-0400 Systolic blood pressure 177 mm[Hg] Hiram Masci DO Work Phone: [facility] 10-07-2023 10:02-0400 Body weight 53.75 kg [facility] Work Phone: [facility] 09-20-2023 07:53-0500 Body temperature 97.39 [degF] Treatment [facility]str Work Phone: [facility] 09-20-2023 07:53-0500 Diastolic blood pressure 75 mm[Hg] Treatment [facility]str Work Phone: [facility] 09-20-2023 07:53-0500 Heart rate 83 /min Treatment [facility] Work Phone: [facility] 09-20-2023 07:53-0500 SaO2% (BldA) [Mass fraction] 100 % Treatment [facility] Work Phone: [facility] 09-20-2023 07:53-0500 Systolic blood pressure 159 mm[Hg] Treatment [facility]str Work Phone: [facility] 09-16-2023 10:11-0500 Body temperature 97.2 [degF] Hiram Masci DO Work Phone: [facility] 09-16-2023 10:11-0500 Body weight 53.98 kg Hiram Masci DO Work Phone: [facility] 09-16-2023 10:11-0500 Diastolic blood pressure 69 mm[Hg] Hiram Masci DO Work Phone: [facility] 09-16-2023 10:11-0500 Heart rate 64 /min Hiram Masci DO Work Phone: [facility] 09-16-2023 10:11-0500 SaO2% (BldA) [Mass fraction] 100 % Hiram Mccoy DO Work Phone: [facility] 09-16-2023 10:11-0500 Systolic blood pressure 188 mm[Hg] Hiram Mccoy DO Work Phone: [facility] 09-16-2023 09:59-0500 Body weight 53.98 kg [facility] Work Phone: [facility] 08-30-2023 07:00-0500 Body temperature 97.7 [degF] Treatment [facility]str Work Phone: [facility] 08-26-2023 11:22-0500 Body temperature 98.01 [degF] Washington Ramirez MATERIALS MANAGEMENT MANAGER.HOUSEKEEPING ASSISTANT Work Phone: [facility] 08-26-2023 11:22-0500 Body weight 54.43 kg Fadi Ramirez MATERIALS MANAGEMENT MANAGER.HOUSEKEEPING ASSISTANT Work Phone: [facility] 08-26-2023 11:22-0500 Heart rate 107 /min Washington Ramirez MATERIALS MANAGEMENT MANAGER.HOUSEKEEPING ASSISTANT Work Phone: [facility] 08-26-2023 11:22-0500 SaO2% (BldA) [Mass fraction] 97 % Fadi Ramirez MATERIALS MANAGEMENT MANAGER.HOUSEKEEPING ASSISTANT Work Phone: [facility] 08-26-2023 11:06-0500 Body weight 54.43 kg [facility] Work Phone: [facility] 07-10-2023 20:40-0500 Body temperature 98.3 [degF] [facility] 07-10-2023 20:40-0500 Diastolic blood pressure 69 mm[Hg] [facility] 07-10-2023 20:40-0500 Heart rate 98 /min [facility] 07-10-2023 20:40-0500 Respiratory rate 18 /min [facility] 07-10-2023 20:40-0500 SaO2% (BldA) [Mass fraction] 97 % [facility] 07-10-2023 20:40-0500 Systolic blood pressure 150 mm[Hg] [facility] 07-10-2023 14:28-0500 Body mass index (BMI) [Ratio] 21.9 kg/m2 [facility] 07-10-2023 14:28-0500 Body weight 53.97 kg [facility] 07-10-2023 10:19-0500 Body height 157.48 cm [facility] 01-18-2023 11:34-0400 Body height 158.[address] Emily Casanova Work Phone: [facility] 01-18-2023 11:32-0400 Body mass index (BMI) [Ratio] 22.7 kg/m2 Dr. Emily Casanova Work Phone: [facility] 01-18-2023 11:32-0400 Body weight 57.[address] Emily Casanova Work Phone: [facility] 01-18-2023 11:32-0400 Diastolic blood pressure 79 mm[Hg] Dr. Emily Casanova Work Phone: [facility] 01-18-2023 11:32-0400 Systolic blood pressure 167 mm[Hg] Dr. Emily Casanova Work Phone: [facility] 12-02-2022 10:04-0400 Respiratory rate 18 /min Dr. Emily Casanova Work Phone: [facility] 12-02-2022 08:34-0400 Diastolic blood pressure 55 mm[Hg] Dr. Emily Casanova Work Phone: [facility] 12-02-2022 08:34-0400 Heart rate 72 /min Dr. Emily Casanova Work Phone: [facility] 12-02-2022 08:34-0400 SaO2% (BldA) [Mass fraction] 99 % Dr. Emily Casanova Work Phone: [facility] 12-02-2022 08:34-0400 Systolic blood pressure 154 mm[Hg] Dr. Emily Casanova Work Phone: [facility] 12-02-2022 05:02-0400 Body height 158.[address] Emily Casanova Work Phone: [facility] 12-02-2022 05:02-0400 Body mass index (BMI) [Ratio] 22.4 kg/m2 Dr. Emily Casanova Work Phone: [facility] 12-02-2022 05:02-0400 Body temperature 98.4 [degF] Dr. Emily Casanova Work Phone: [facility] 12-02-2022 05:02-0400 Body weight 56.[address] Emily Casanova Work Phone: [facility] 11-02-2022 11:09-0400 Body height 158.[address] Emily Casanova Work Phone: [facility] 11-02-2022 11:00-0400 Body mass index (BMI) [Ratio] 22.4 kg/m2 Dr. Emily Casanova Work Phone: [facility] 11-02-2022 11:00-0400 Body weight 56.[address] Emily Casanova Work Phone: [facility] 11-02-2022 11:00-0400 Diastolic blood pressure 84 mm[Hg] Dr. Emily Casanova Work Phone: [facility] 11-02-2022 11:00-0400 Systolic blood pressure 175 mm[Hg] Dr. Emily Casanova Work Phone: [facility] Encounters Encounter Date Encounter Type Care Provider Facility Start: 05-04-2025 End: 05-05-2025 Evaluation and management of inpatient EMILY CASANOVA Facility:[facility] Start: 05-04-2025 End: 05-04-2025 Emergency department patient visit BUSY MACRINA Facility:[facility] Start: 05-01-2025 End: 05-01-2025 ambulatory EMILY GREENMAN Facility:[facility] Start: 04-29-2025 End: 04-29-2025 ambulatory EMILY Andrews [facility] Facility:[facility] Start: 04-24-2025 End: 04-24-2025 ambulatory EMILY Andrews JOCELYNE Facility:[facility] Start: 04-17-2025 ambulatory EMILY CASANOVA Facilit y:[facility] Start: 04-12-2025 End: 04-12-2025 ambulatory Emily EllisJocelyne Facility:[facility] Start: 04-11-2025 End: 04-11-2025 ambulatory EMILY Andrews JOCELYNE Facility:[facility] Start: 04-03-2025 End: 04-03-2025 Telephone encounter Hiram Mccoy DO Work Phone: Hematology/Oncology Comment on above: Results Start: 04-03-2025 End: 04-03-2025 ambulatory Lab/[place] [facility] Work Phone: Hematology/Oncology Comment on above: Ovarian cancer on le ft (HCC); 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); Anemia, unspecified type Start: 03-20-2025 End: 03-20-2025 ambulatory EMILY ELLISUTZMAN Facility:[facility] Start: 03-20-2025 End: 03-21-2025 Telephone encounter Phong MOORE Hematology/Oncology Comment on above: Social Work Services Linen Folder - O ther (Treatment Planning ) Start: 03-20-2025 End: 03-20-2025 [facility] Work Phone: [facility]Oncology Comment on above: Encounter for educat ion (Primary Dx) Start: 03-18-2025 End: 03-18-2025 ambulatory Lab/[place] [facility] Work Phone: Hematology/Oncology Comment on above: Ovarian cancer on le ft (HCC); 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) Start: 03-15-2025 End: 03-15-2025 ambulatory [facility] Facility:[facility] Start: 03-13-2025 End: 03-13-2025 Telephone encounter Hiram Mccoy DO Work Phone: Hematology/Oncology Comment on above: Results Start: 03-08-2025 End: 03-08-2025 ambulatory Lab/[place] [facility] Work Phone: Hematology/Oncology Comment on above: Ovarian cancer on le ft (HCC) (Primary Dx); Microcytic anemia Start: 03-07-2025 End: 03-11-2025 Telephone encounter Hiram Mccoy DO Work Phone: Hematology/Oncology Comment on above: Results Start: 03-07-2025 End: 03-07-2025 ambulatory Lab/[place] [facility] Work Phone: Hematology/Oncology Comment on above: Ovarian cancer on le ft (HCC) (Primary Dx); Anemia, unspecified type Start: 03-05-2025 End: 03-05-2025 Subsequent hospital visit by physician Ct Prep [facility] Cat Scan Comment on above: Ovarian cancer, bila teral (HCC) [C56.3] Start: 03-05-2025 End: 03-06-2025 ambulatory Treatment Rm 14 [facility] Work Phone: Hematology/Oncology Comment on above: Ovarian cancer on le ft (HCC) (Primary Dx) Ovarian cancer on le ft (HCC) (Primary Dx); Anemia, unspecified type Start: 02-27-2025 End: 02-27-2025 ambulatory EMILY Darryl CASANOVA Facility:[facility] Start: 02-23-2025 End: 02-25-2025 Telephone encounter Hiram Mccoy DO Work Phone: Hematology/Oncology Comment on above: Results Start: 02-22-2025 End: 02-22-2025 ambulatory Treatment Rm 15 [facility] [employer] Work Phone: Hematology/Oncology Comment on above: Iron malabsorption ( HCC) (Primary Dx); Ovarian cancer, bilateral (HCC); Anemia, unspecified type; Anemia in stage 3a chronic kidney disease (HCC); Ovarian cancer on left (HCC) Start: 02-21-2025 End: 02-21-2025 Telephone encounter Hiram Mccoy DO Work Phone: Hematology/Oncology Comment on above: Opened In Error Start: 02-20-2025 End: 02-20-2025 ambulatory Treatment Rm 15 [facility] [employer] Work Phone: Hematology/Oncology Comment on above: Iron malabsorption ( HCC) (Primary Dx); Anemia in stage 3a chronic kidney disease (HCC); Ovarian cancer on left (HCC); Anemia, unspecified type Start: 02-18-2025 End: 02-18-2025 ambulatory Treatment Rm 14 [facility] [employer] Work Phone: Hematology/Oncology Comment on above: Iron malabsorption ( HCC) (Primary Dx); Anemia in stage 3a chronic kidney disease (HCC); Ovarian cancer on left (HCC) Start: 02-15-2025 End: 02-15-2025 Telephone encounter Hiram Mccoy DO Work Phone: Hematology/Oncology Comment on above: Results SPP Oral Oncology/he matology - Medication Refill (Lynparza 100mg) Start: 02-15-2025 End: 02-15-2025 ambulatory Florecita Alves [facility] Comment on above: Iron malabsorption ( HCC) (Primary Dx); Anemia in stage 3a chronic kidney disease (HCC); Ovarian cancer on left (HCC) Start: 02-13-2025 End: 02-13-2025 ambulatory Treatment Rm 16 [facility] Work Phone: Hematology/Oncology Comment on above: Anemia in stage 3a c hronic kidney disease (HCC) (Primary Dx); Iron malabsorption (HCC); Ovarian cancer on left (HCC) Start: 02-08-2025 End: 02-08-2025 Office outpatient visit 25 minutes Hiram Mccoy DO Work Phone: Hematology/Oncology Comment on above: Ovarian cancer on le ft (HCC) (Primary Dx); Anemia, unspecified type Start: 02-08-2025 End: 02-08-2025 ambulatory Lab/[place] [facility] Work Phone: Hematology/Oncology Comment on above: Ovarian cancer on le ft (HCC) (Primary Dx); Ovarian cancer, bilateral (HCC); Anemia, unspecified type; 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 chemotherapy Start: 01-18-2025 End: 01-18-2025 [facility] Comment on above: SPP Oral Oncology/he matology - Medication Refill (Lynparza 100mg) Start: 01-03-2025 End: 01-03-2025 ambulatory Lab/[place] [facility] Work Phone: Hematology/Oncology Comment on above: Ovarian cancer on le ft (HCC) (Primary Dx); Ovarian cancer, bilateral (HCC); 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 chemotherapy; Thrombocytopenia; Platelets decreased; Anemia, unspecified type Start: 12-18-2024 End: 12-18-2024 [facility] Comment on above: SPP Oral Oncology/he matology - Medication Refill (Lynparza 100mg) Start: 11-30-2024 End: 11-30-2024 Patient encounter procedure Guerrero Vilchis MD Work Phone: [facility] Gynecology Oncology Start: 11-30-2024 End: 11-30-2024 ambulatory Guerrero Vilchis MD Work Phone: [facility] Gynecology Oncology Comment on above: Ovarian cancer, bila teral (HCC) (Primary Dx); BRIP1 gene mutation positive Start: 11-29-2024 End: 11-29-2024 ambulatory Lab/[place] [facility] Work Phone: Hematology/Oncology Comment on above: Ovarian cancer on le ft (HCC); Ovarian cancer, bilateral (HCC); 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 chemotherapy; Thrombocytopenia; Platelets decreased; Anemia, unspecified type Start: 11-02-2024 End: 11-02-2024 Refill Hiram Tannermayra DO Work Phone: Hematology/Oncology Comment on above: Refill Request Start: 11-02-2024 End: 11-05-2024 Telephone encounter Fadi Ramirez APRN.CNP Work Phone: Hematology/Oncology Start: 11-02-2024 End: 11-02-2024 Patient encounter procedure Fadi Ramirez APRN.CNP Work Phone: Hematology/Oncology Start: 11-02-2024 End: 11-02-2024 ambulatory Fadi Ramirez APRN.CNP Work Phone: Hematology/Oncology Comment on above: Ovarian cancer on le ft (HCC) (Primary Dx); 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 chemotherapy Ovarian cancer on le ft (HCC); Ovarian cancer, bilateral (HCC); 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 chemotherapy; Thrombocytopenia; Platelets decreased; Anemia, unspecified type Start: 10-23-2024 End: 10-23-2024 Telephone encounter Estuardo Long RN [place] [facility] Comment on above: Linen Folder - H ospital Follow Up Start: 10-22-2024 End: 10-22-2024 Specialty Pharmacy Florecita Nelson [facility] Comment on above: SPP Oral Oncology/he matology - Medication Refill (Lynparza 100mg) Start: 10-17-2024 End: 10-17-2024 ambulatory [facility] Facility:[facility] Start: 10-17-2024 End: 10-17-2024 Patient encounter procedure Mark Kruse OD Work Phone: Optometry Comment on above: Combined forms of ag e-related cataract, bilateral (Primary Dx); Glaucoma suspect of left eye; Myopia, bilateral; Regular astigmatism of both eyes; Presbyopia; Vitreous floaters of both eyes Start: 09-28-2024 End: 09-28-2024 ambulatory Lab/[place] [facility] Work Phone: Hematology/Oncology Comment on above: Ovarian cancer on le ft (HCC); Ovarian cancer, bilateral (HCC); 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 chemotherapy; Thrombocytopenia (HCC); Platelets decreased (HCC); Anemia, unspecified type Start: 09-17-2024 End: 09-17-2024 Specialty Pharmacy Florecita Alves [facility] Comment on above: SPP Oral Oncology/he matology - Medication Refill (Lynparza 100mg) Start: 09-04-2024 End: 09-06-2024 Evaluation and management of inpatient ROHIT MILES Facility:[facility] Start: 08-31-2024 End: 09-02-2024 ambulatory Lab/[place] [facility] Work Phone: Hematology/Oncology Comment on above: Ovarian cancer on le ft (HCC) (Primary Dx); Ovarian cancer, bilateral (HCC); 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 chemotherapy; Thrombocytopenia (HCC); Platelets decreased (HCC); Anemia, unspecified type Refill Request Start: 08-27-2024 End: 08-27-2024 Admission to [facility] 2 Pre Surgical Testing Start: 08-27-2024 End: 08-27-2024 Preprocedural examination done [address] Work Phone: Start: 08-27-2024 End: 08-27-2024 ambulatory Estuardo Long RN Pre Surgical Testing Comment on above: Preop examination (P rimary Dx); Chronic hypertension; Attention to colostomy (HCC); 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 chemotherapy; Platelets decreased (HCC); 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, involving unspecified site (HCC); Gastroesophageal reflux disease, unspecified whether esophagitis present Patient Education Start: 08-23-2024 End: 08-23-2024 Patient encounter procedure Guerrero Vilchis MD Work Phone: [facility] Gynecology Oncology Start: 08-23-2024 End: 08-23-2024 ambulatory Guerrero Vilchis MD Work Phone: [facility] Gynecology Oncology Comment on above: Ovarian cancer, bila teral (HCC) (Primary Dx); BRIP1 gene mutation positive; Attention to colostomy (HCC) Start: 08-15-2024 ambulatory ROHIT Nair cility:[facility] Start: 08-15-2024 End: 08-15-2024 Subsequent hospital visit by physician Gi/Gu 1 [facility] Comment on above: Attention to colosto my (HCC) [Z43.3] Start: 08-13-2024 End: 08-13-2024 Specialty Pharmacy Florecita Alves [facility] Comment on above: SPP Oral Oncology/he matology - Medication Refill (Lynparza) Start: 08-10-2024 End: 08-10-2024 Telephone encounter Rohit Miles MD Work Phone: [facility] Comment on above: Procedure (COLOSTOMY REVERSAL/) Schedule Surgery Start: 08-10-2024 End: 08-10-2024 Patient encounter procedure Rohit Miles MD Work Phone: [facility] Comment on above: Attention to colosto my (HCC) (Primary Dx) Start: 08-10-2024 End: 08-10-2024 ambulatory [facility] Facility:[facility] Start: 08-03-2024 End: 08-03-2024 Office outpatient visit 25 minutes Hiram Mccoy DO Work Phone: Hematology/Oncology Comment on above: Ovarian cancer on le ft (HCC) (Primary Dx); 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 chemotherapy Start: 08-03-2024 End: 08-03-2024 ambulatory Lab/[place] [facility] Work Phone: Hematology/Oncology Comment on above: Ovarian cancer on le ft (HCC); Ovarian cancer, bilateral (HCC); 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 chemotherapy Start: 07-19-2024 End: 07-19-2024 Specialty Pharmacy Florecita Alves [facility] Comment on above: SPP Oral Oncology/he matology - Medication Refill (Lynparza) Start: 07-13-2024 End: 07-19-2024 Telephone encounter Hiram Mccoy DO Work Phone: Hematology/Oncology Comment on above: Patient Update Start: 07-04-2024 End: 07-04-2024 ambulatory Lab/[place] [facility] Work Phone: Hematology/Oncology Comment on above: Ovarian cancer on le ft (HCC) Start: 06-26-2024 End: 06-26-2024 ambulatory Nikki Persaud Facility:[facility] Start: 06-20-2024 End: 06-20-2024 Specialty Pharmacy Florecita Alves [facility] Comment on above: SPP Oral Oncology/he matology - Medication Refill (Lynparza) Start: 06-15-2024 End: 06-15-2024 ambulatory Lab/[place] [facility] Work Phone: Hematology/Oncology Comment on above: Ovarian cancer on le ft (HCC); Ovarian cancer, bilateral (HCC); 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 chemotherapy; Thrombocytopenia (HCC); Platelets decreased (HCC) Start: 06-04-2024 End: 06-04-2024 ambulatory [facility] Hematology/Oncology Comment on above: results/scheduling Start: 06-04-2024 End: 06-04-2024 E-mail encounter from caregiver [facility] Provider Hematology/Oncology Start: 06-01-2024 End: 06-01-2024 ambulatory Lab/[place] [facility] Work Phone: Hematology/Oncology Comment on above: Ovarian cancer, bila teral (HCC) (Primary Dx); Ovarian cancer on left (HCC); 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 chemotherapy; Thrombocytopenia (HCC); Platelets decreased (HCC) Start: 05-28-2024 End: 05-28-2024 Telephone encounter Estuardo Long RN [place] [facility] Comment on above: Linen Folder - H ospital Follow Up Start: 05-18-2024 End: 05-18-2024 ambulatory Lab/[place] [facility] Work Phone: Hematology/Oncology Comment on above: Ovarian cancer on le ft (HCC) SPP Oral Oncology/he matology - Medication Refill (Lynparza 100mg) Start: 05-17-2024 End: 05-17-2024 Patient encounter procedure Mayte Gonzalez APRN.HOUSEKEEPING ASSISTANT Work Phone: [facility] Start: 05-17-2024 End: 05-17-2024 ambulatory Mayte Yana Gonzalez MATERIALS MANAGEMENT MANAGER.HOUSEKEEPING ASSISTANT Work Phone: [facility] Gynecology Oncology Comment on above: Ovarian cancer, bila teral (HCC) (Primary Dx); BRIP1 gene mutation positive; Attention to colostomy (HCC); Elevated tumor markers Start: 05-09-2024 End: 05-09-2024 Telephone encounter Hiram Mccoy DO Work Phone: Hematology/Oncology Comment on above: Results Start: 05-09-2024 End: 05-09-2024 Patient encounter procedure Rohit Miles MD Work Phone: [facility] Comment on above: Attention to colosto my (HCC) (Primary Dx) Start: 05-09-2024 End: 05-09-2024 ambulatory ROHIT MILES Facility:[facility] Start: 05-07-2024 End: 05-07-2024 ambulatory Lab/[place] [facility] Work Phone: Hematology/Oncology Comment on above: Ovarian cancer on le ft (HCC) (Primary Dx); Ovarian cancer, bilateral (HCC); 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 chemotherapy; Thrombocytopenia (HCC); Platelets decreased (HCC) Start: 05-03-2024 End: 05-10-2024 Telephone encounter Estuardo [facility] Comment on above: Linen Folder - H ospital Follow Up Results Start: 05-03-2024 End: 05-03-2024 Patient encounter procedure Hiram Mccoy DO Work Phone: Hematology/Oncology Start: 05-03-2024 End: 05-03-2024 ambulatory Hiram Mccoy DO Work Phone: Hematology/Oncology Comment on above: Ovarian cancer, bila teral (HCC) (Primary Dx); Anemia, unspecified type Ovarian cancer on le ft (HCC) (Primary Dx); Ovarian cancer, bilateral (HCC); 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 chemotherapy; Thrombocytopenia (HCC); Platelets decreased (HCC) Start: 04-27-2024 End: 04-27-2024 Telephone encounter Estuardo [facility] Comment on above: Opened In Error Start: 04-26-2024 End: 04-26-2024 Telephone encounter Joy Bolaños RN Hematology/Oncology Comment on above: Linen Folder - O ther (Hospital Discharge ) Start: 04-20-2024 End: 04-20-2024 Admission to [facility] 1 Pre Surgical Testing Start: 04-20-2024 End: 04-20-2024 Preprocedural examination done Pst 1 [facility] Work Phone: Start: 04-20-2024 End: 04-20-2024 ambulatory Florecita Nelson [facility] Pre Surgical Testing Comment on above: Preop examination (P rimary Dx); Attention to colostomy (HCC); 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, involving unspecified site (HCC); Platelets decreased (HCC); 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 chemotherapy; Chronic hypertension SPP Oral Oncology/he matology - Medication Refill (Lynparza) Start: 04-20-2024 End: 04-23-2024 Telephone encounter Estuardo Long RN [place] [facility] Start: 04-19-2024 End: 04-19-2024 ambulatory Lab/[place] [facility] Work Phone: Hematology/Oncology Comment on above: Ovarian cancer on le ft (HCC); Ovarian cancer, bilateral (HCC); 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 chemotherapy; Thrombocytopenia (HCC); Platelets decreased (HCC) Start: 04-17-2024 End: 04-17-2024 ambulatory Hiram Mccoy DO Work Phone: Hematology/Oncology Comment on above: Flu shot Start: 04-16-2024 End: 04-16-2024 Telephone encounter Rohit Miles MD Work Phone: [facility] Comment on above: Procedure (LAP COLOS GRAYSON REVERSAL/) Patient Update Start: 04-12-2024 End: 04-12-2024 ambulatory Lab/[place] [facility] Work Phone: Hematology/Oncology Comment on above: Ovarian cancer on le ft (HCC) (Primary Dx); Ovarian cancer, bilateral (HCC); 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 chemotherapy; Thrombocytopenia (HCC); Platelets decreased (HCC) Start: 04-06-2024 End: 04-06-2024 Telephone encounter Joy Bolaños RN Hematology/Oncology Comment on above: Linen Folder - O ther (Oral Anti-Cancer Agents Follow-up olaparib ) Start: 04-06-2024 End: 04-06-2024 Patient encounter procedure Rohit Miles MD Work Phone: [facility] Comment on above: Attention to colosto my (HCC) (Primary Dx) Start: 04-05-2024 End: 04-05-2024 ambulatory Lab/[place] [facility] Work Phone: Hematology/Oncology Comment on above: Ovarian cancer on le ft (HCC); Ovarian cancer, bilateral (HCC); 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 chemotherapy; Thrombocytopenia (HCC); Platelets decreased (HCC) Start: 03-29-2024 End: 03-29-2024 ambulatory Lab/[place] [facility] Work Phone: Hematology/Oncology Comment on above: Ovarian cancer, bila teral (HCC) (Primary Dx); Ovarian cancer on left (HCC); 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 chemotherapy; Thrombocytopenia (HCC); Platelets decreased (HCC) Start: 03-28-2024 End: 03-30-2024 Telephone encounter Joy Bolaños RN Hematology/Oncology Comment on above: Linen Folder - O ther (Receiving olaparib 03/28) Start: 03-23-2024 End: 03-23-2024 Refill Hiram Mccoy DO Work Phone: Hematology/Oncology Comment on above: Refill Request Start: 03-22-2024 End: 03-22-2024 Telephone encounter Joy Bolaños RN Hematology/Oncology Comment on above: Linen Folder - O ther (Oral Anti-Cancer Agents Education (lynparza)) Start: 03-21-2024 End: 03-21-2024 ambulatory Lab/[place] [facility] Work Phone: Hematology/Oncology Comment on above: Ovarian cancer, bila teral (HCC) (Primary Dx); Ovarian cancer on left (HCC); 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 chemotherapy; Thrombocytopenia (HCC); Platelets decreased (HCC); Anemia, unspecified type Start: 03-19-2024 End: 03-19-2024 Patient encounter procedure Hiram Mccoy DO Work Phone: Hematology/Oncology Start: 03-19-2024 End: 03-19-2024 ambulatory Lab/[place] [facility] Work Phone: Hematology/Oncology Comment on above: Ovarian cancer on le ft (HCC); Macrocytic anemia Ovarian cancer on le ft (HCC) (Primary Dx); Macrocytic anemia Start: 03-19-2024 End: 03-20-2024 Telephone encounter Hiram Mccoy DO Work Phone: Hematology/Oncology Comment on above: CHEMO PILL START Start: 03-16-2024 End: 03-16-2024 ambulatory Florecita Nelson [facility] Start: 03-16-2024 End: 03-16-2024 Patient encounter procedure Florecita Nelson [facility] Comment on above: SPP Oral Oncology/he matology - Treatment Referral (Rony); Insurance Authorization (Pending [place]) Start: 03-15-2024 End: 03-15-2024 Orders Only Hiram Mccoy DO Work Phone: Hematology/Oncology Comment on above: Ovarian cancer, bila teral (HCC) (Primary Dx); BRIP1 gene mutation positive Start: 02-28-2024 Telephone encounter Hiram bond DO Work Phone: Hematology/Oncology Comment on above: Results Start: 02-28-2024 End: 02-28-2024 ambulatory Lab/[place] [facility] Work Phone: Hematology/Oncology Comment on above: Ovarian cancer on le ft (HCC) Start: 02-27-2024 Telephone encounter Hiram bond DO Work Phone: Hematology/Oncology Comment on above: Patient Question Start: 02-23-2024 Refill Hiram Castellanos Work Phone: Hematology/Oncology Comment on above: Refill Request Start: 02-13-2024 End: 02-13-2024 ambulatory Guerrero Vilchis MD Work Phone: [facility] Gynecology Oncology Comment on above: Ovarian cancer on le ft (HCC) (Primary Dx); BRIP1 gene mutation positive Start: 02-13-2024 End: 02-13-2024 Patient encounter procedure Guerrero Vilchis MD Work Phone: [facility] Gynecology Oncology Start: 02-12-2024 Orders Only Guerrero adam MD Work Phone: [facility] Gynecology Oncology Comment on above: Ovarian cancer on le ft (HCC) (Primary Dx) Start: 02-09-2024 Telephone encounter Guerrero Saeed MD Work Phone: [facility] Gynecology Oncology Comment on above: Appointment Start: 02-07-2024 Refill Hiram Castellanos Work Phone: Hematology/Oncology Comment on above: Refill Request Start: 02-06-2024 End: 02-06-2024 Patient encounter procedure Hiram Mccoy DO Work Phone: Hematology/Oncology Start: 02-06-2024 End: 02-06-2024 ambulatory [facility] Work Phone: Hematology/Oncology Comment on above: Ovarian cancer on le ft (HCC) (Primary Dx); Ovarian cancer, bilateral (HCC); 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 chemotherapy; Thrombocytopenia (HCC); Platelets decreased (HCC) Ovarian cancer on le ft (HCC) (Primary Dx); Thrombocytopenia (HCC); 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 chemotherapy Start: 02-01-2024 End: 02-01-2024 ambulatory Lab/Port [facility] Work Phone: Hematology/Oncology Comment on above: Ovarian cancer on le ft (HCC) (Primary Dx) Start: 02-01-2024 End: 02-01-2024 Subsequent hospital visit by physician [facility] ([facility] Work Phone: Cat Scan Comment on above: Ovarian cancer, bila teral (HCC) [C56.3] Start: 01-23-2024 Telephone encounter Hiram bond DO Work Phone: Hematology/Oncology Comment on above: Transfusion Start: 01-23-2024 End: 01-23-2024 ambulatory Treatment Rm 1 Jonathan [facility] Work Phone: Hematology/Oncology Comment on above: Ovarian cancer on le ft (HCC) (Primary Dx); Ovarian cancer, bilateral (HCC); 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 chemotherapy; Thrombocytopenia (HCC); Platelets decreased (HCC) Start: 01-19-2024 End: 01-19-2024 ambulatory Lab/Port [facility] Work Phone: Hematology/Oncology Comment on above: Ovarian cancer on le ft (HCC) (Primary Dx); Ovarian cancer, bilateral (HCC); 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 chemotherapy; Thrombocytopenia (HCC); Platelets decreased (HCC) Start: 01-16-2024 End: 01-16-2024 Patient encounter procedure Hiram Mccoy DO Work Phone: Hematology/Oncology Start: 01-16-2024 End: 01-16-2024 ambulatory Hiram Mccoy DO Work Phone: Hematology/Oncology Comment on above: Ovarian cancer, bila teral (HCC) (Primary Dx) Ovarian cancer on le ft (HCC); Ovarian cancer, bilateral (HCC); 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 chemotherapy; Thrombocytopenia (HCC) Start: 01-11-2024 Telephone encounter Hiram bond DO Work Phone: Hematology/Oncology Comment on above: Transfusion Start: 01-11-2024 End: 01-11-2024 ambulatory Lab/Port [facility] Work Phone: Hematology/Oncology Comment on above: Ovarian cancer on le ft (HCC); Ovarian cancer, bilateral (HCC); 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 chemotherapy; Thrombocytopenia (HCC) Start: 01-04-2024 End: 01-04-2024 ambulatory Lab/Port [facility] Work Phone: Hematology/Oncology Comment on above: Ovarian cancer on le ft (HCC); Ovarian cancer, bilateral (HCC); 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 chemotherapy; Thrombocytopenia (HCC) Start: 12-28-2023 Telephone encounter Hiram bond DO Work Phone: Hematology/Oncology Comment on above: Appointment Start: 12-28-2023 End: 12-28-2023 ambulatory Treatment Rm 9 Jonathan [facility] Work Phone: Hematology/Oncology Comment on above: Anemia due to antine oplastic chemotherapy (Primary Dx); Ovarian cancer on left (HCC) Start: 12-27-2023 End: 12-27-2023 Patient encounter procedure Hiram Mccoy DO Work Phone: Hematology/Oncology Start: 12-27-2023 End: 12-27-2023 ambulatory Lab/Port [facility] Work Phone: Hematology/Oncology Comment on above: Ovarian cancer on le ft (HCC) (Primary Dx) Ovarian cancer, bila teral (HCC) (Primary Dx); 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 chemotherapy; Thrombocytopenia (HCC) Start: 12-06-2023 Telephone encounter Hiram bond DO Work Phone: Hematology/Oncology Comment on above: Results Start: 12-06-2023 End: 12-06-2023 Subsequent hospital visit by physician [facility] Work Phone: Radiology Comment on above: Elevated LFTs [R79.8 9] Start: 12-06-2023 End: 12-06-2023 ambulatory Treatment Rm 11 Jonathan [facility] Work Phone: Hematology/Oncology Comment on above: Ovarian cancer on le ft (HCC) (Primary Dx) Start: 12-05-2023 End: 12-05-2023 Patient encounter procedure Hiram Mccoy DO Work Phone: Hematology/Oncology Start: 12-05-2023 End: 12-05-2023 ambulatory [facility] Work Phone: Hematology/Oncology Comment on above: Ovarian cancer on le ft (HCC) Ovarian cancer, bila teral (HCC) (Primary Dx) Start: 11-21-2023 Telephone encounter Fadi aguilar APRN.HOUSEKEEPING ASSISTANT Work Phone: Hematology/Oncology Start: 11-18-2023 End: 11-18-2023 Patient encounter procedure Fadi Ramirez APRN.HOUSEKEEPING ASSISTANT Work Phone: Hematology/Oncology Start: 11-18-2023 End: 11-18-2023 ambulatory Lab/Port [facility] Work Phone: Hematology/Oncology Comment on above: Ovarian cancer, bila teral (HCC) (Primary Dx); Ovarian cancer on left (HCC); Thrombocytopenia (HCC) Ovarian cancer on le ft (HCC) (Primary Dx); Thrombocytopenia (HCC); Antineoplastic chemotherapy induced anemia Start: 11-11-2023 End: 11-11-2023 ambulatory Mayte Gonzalez MATERIALS MANAGEMENT MANAGER.HOUSEKEEPING ASSISTANT Work Phone: [facility] Gynecology Oncology Comment on above: Post-operative state (Primary Dx); Ovarian cancer, bilateral (HCC) Start: 11-11-2023 End: 11-11-2023 Patient encounter procedure Mayte Gonzalez APRN.HOUSEKEEPING ASSISTANT Work Phone: [facility] Start: 11-02-2023 Telephone encounter Joy Bolaños RN He matology/Oncology Comment on above: Linen Folder - O ther (Hospital Discharge ) Start: 11-01-2023 Telephone encounter Soledad Valiente DO Work Phone: [facility] Start: 10-26-2023 Telephone encounter Guerrero Saeed MD Work Phone: [facility] Gynecology Oncology Start: 10-25-2023 Orders Only Guerrero adam MD Work Phone: [facility] Gynecology Oncology Comment on above: Appointment Preparations For Luli bartolome Start: 10-19-2023 Encounter for other preprocedural examination GUERRERO VILCHIS [facility] Start: 10-19-2023 Preprocedural examination done Guerrero Vilchis MD Work Phone: [facility] Work Phone: Start: 10-14-2023 Telephone encounter Guerrero Saeed MD Work Phone: [facility] Gynecology Oncology Comment on above: Appointment Start: 10-13-2023 End: 10-13-2023 Preprocedural examination done Guerrero Vilchis MD Work Phone: [facility] Work Phone: Start: 10-13-2023 End: 10-13-2023 Orders Only Guerrero Vilchis MD Work Phone: [facility] Gynecology Oncology Comment on above: Ovarian cancer on le ft (HCC) (Primary Dx) Preoperative examina tion (Primary Dx); Ovarian cancer on left (HCC); Drug-induced anemia Start: 10-10-2023 End: 10-10-2023 ambulatory Lab/Port [facility] Work Phone: Hematology/Oncology Comment on above: Ovarian cancer on le ft (HCC) (Primary Dx) Start: 10-07-2023 Telephone encounter Rudy Do [facility] Work Phone: [facility] Comment on above: Results Urgent Start: 10-07-2023 End: 10-07-2023 Office outpatient visit 25 minutes Hiram Mccoy DO Work Phone: Hematology/Oncology Comment on above: Ovarian cancer on le ft (HCC) (Primary Dx); Platelets decreased (HCC); Antineoplastic chemotherapy induced anemia Start: 10-07-2023 End: 10-07-2023 ambulatory Lab/Port [facility] Work Phone: Hematology/Oncology Comment on above: Ovarian cancer on le ft (HCC) Start: 10-04-2023 End: 10-04-2023 ambulatory Lab/Port Jonathan [facility] Work Phone: Hematology/Oncology Comment on above: Ovarian cancer on le ft (HCC) (Primary Dx) Start: 10-04-2023 End: 10-04-2023 Subsequent hospital visit by physician Ct Prep [facility] Cat Scan Comment on above: Ovarian cancer on le ft (HCC) [C56.2] Start: 09-30-2023 End: 09-30-2023 ambulatory [facility] Work Phone: Start: 09-30-2023 End: 09-30-2023 Patient encounter procedure [facility]-Enterostomal Therapy Work Phone: Start: 09-27-2023 Telephone encounter Hiram bond DO Work Phone: Hematology/Oncology Comment on above: Patient Question Start: 09-20-2023 Telephone encounter Hiram bond DO Work Phone: Hematology/Oncology Comment on above: Orders Start: 09-20-2023 End: 09-20-[address] Nutrition therapy Wendy Rivera RD Work Phone: Nutrition Therapy Comment on above: Nutrition Counseling Start: 09-20-2023 End: 09-20-[address] Work Phone: [facility] Comment on above: Ovarian cancer on le ft (HCC) (Primary Dx) Start: 09-16-2023 End: 09-16-2023 Patient encounter procedure Hiram Andrews Nadine Work Phone: [facility] [place] Start: 09-16-2023 End: 09-16-2023 ambulatory Lab/Port [place] [facility] Work Phone: Hematology/Oncology Comment on above: Ovarian cancer on le ft (HCC) Ovarian cancer on le ft (HCC) (Primary Dx); Platelets decreased (HCC) Start: 09-14-2023 End: 09-14-2023 ambulatory Rudy BARBOSA Work Phone: [facility] Comment on above: Ovarian cancer on le ft (HCC) Start: 09-14-2023 End: 09-14-2023 Telemedicine consultation with patient Rudy BARBOSA Work Phone: [facility] Start: 08-30-2023 End: 08-30-2023 ambulatory Treatment Rm 2 Jonathan [facility] Work Phone: Hematology/Oncology Comment on above: Ovarian cancer on le ft (HCC) (Primary Dx) Refill Request Start: 08-30-2023 End: 08-30-20[address] Nutrition therapy Wendy Rivera RD Work Phone: Nutrition Therapy Comment on above: Nutrition Assessment Start: 08-26-2023 End: 08-26-2023 Patient encounter procedure Fadi Ramirez APRN.HOUSEKEEPING ASSISTANT Work Phone: [facility] [place] Start: 08-26-2023 End: 08-26-2023 ambulatory Lab/Port Jonathan [facility] Work Phone: Hematology/Oncology Comment on above: Ovarian cancer on le ft (HCC) (Primary Dx) Start: 08-17-2023 End: 08-17-20[address] Nutrition therapy Wendy Rivera RD Work Phone: Nutrition Therapy Comment on above: Ovarian cancer on le ft (HCC) (Primary Dx); Severe protein-calorie malnutrition (HCC) Start: 08-17-2023 End: 08-17-2023 Telemedicine consultation with patient Wendy Rivera RD Work Phone: [facility] Start: 08-04-2023 End: 08-04-2023 ambulatory TAMEKA STEPHENSON Facility:[id number] Start: 07-20-2023 ambulatory AMMON PHYSICIAN Facility :R Start: 07-10-2023 End: 07-10-2023 Emergency department patient visit [facility]-Emergency Department Work Phone: Start: 06-21-2023 End: 06-21-2023 Patient encounter procedure [facility]-Outpatient Breast Imaging Work Phone: Start: 01-26-2023 End: 01-26-[address] Emily Casanova Work Phone: [facility] Work Phone: Start: 01-26-2023 End: 01-26-[address] Emily Casanova Work Phone: [facility]-Laboratory Work Phone: Start: 01-18-2023 End: 01-18-[address] Emily Casanova Work Phone: [facility] Work Phone: Start: 01-04-2023 End: 01-04-[address] Emily Casanova Work Phone: [facility] Work Phone: Start: 01-04-2023 End: 01-04-[address] Emily Casanova Work Phone: [facility]-Ultrasound, [facility] Start: 12-06-2022 End: 12-06-[address] Emily Casanova Work Phone: [facility]-Laboratory, [place] Diaz [facility] Start: 12-02-2022 End: 12-02-2022 Emergency department patient visit Dr. Emily Casanova Work Phone: [facility]-Emergency Department Start: 11-02-2022 End: 11-02-[address] Emily Casanova Work Phone: [facility] Work Phone: Start: 11-02-2022 End: 11-02-[address] Emily Casanova Work Phone: [facility] Start: 10-20-2022 End: 10-20-2022 ambulatory [facility] Work Phone: Start: 10-20-2022 End: 10-20-2022 [facility] Start: 10-15-2022 End: 10-15-2022 ambulatory [facility] Work Phone: Start: 10-15-2022 End: 10-15-2022 Patient encounter procedure [facility]-Cat Scan, [facility] Start: 07-06-2022 End: 07-06-2022 Patient encounter procedure Mark Kruse OD Work Phone: Optometry Comment on above: Long-term use of Rian quenil (Primary Dx); Combined forms of age-related cataract, bilateral; Vitreous floaters of both eyes; Myopia, bilateral; Regular astigmatism of both eyes; Presbyopia; Glaucoma suspect of left eye Start: 05-12-2022 End: 05-12-2022 ambulatory [facility] Work Phone: Start: 05-12-2022 End: 05-12-2022 Patient encounter procedure [facility]-Laboratory Start: 11-09-2021 End: 11-09-2021 Patient encounter procedure [facility]Laboratory Procedures Date Procedure Procedure Detail Performing Clinician Start: 04-03-2025 Blood count complete auto&auto difrntl wbc Hiram Andrews Masci DO Work Phone: Start: 03-18-2025 Blood count complete auto&auto difrntl wbc Hiram Andrews Masci DO Work Phone: Start: 03-07-2025 Blood count complete auto&auto difrntl wbc Hiram Andrews Masci DO Work Phone: Start: 02-08-2025 Blood count complete auto&auto difrntl wbc Hiram Andrews Masci DO Work Phone: Start: 01-03-2025 Blood count complete auto&auto difrntl wbc Hiram Andrews Masci DO Work Phone: Start: 11-29-2024 Blood count complete auto&auto difrntl wbc Hiram Andrews Masci DO Work Phone: Start: 11-02-2024 Blood count complete auto&auto difrntl wbc Hiram Andrews Masci DO Work Phone: Start: 10-17-2024 Computerized ophthal regina imaging optic nerve Mark Kruse OD Work Phone: Start: 09-28-2024 Blood count complete auto&auto difrntl wbc Hiram Andrews Masci DO Work Phone: Start: 08-31-2024 Blood count complete auto&auto difrntl wbc Hiram Andrews Masci DO Work Phone: Start: 08-03-2024 Blood count complete auto&auto difrntl wbc Hiram Andrews Masci DO Work Phone: Start: 07-04-2024 Blood count complete auto&auto difrntl wbc Hiram Andrews Masci DO Work Phone: Start: 06-15-2024 Blood count complete auto&auto difrntl wbc Hiram Andrews Masci DO Work Phone: Start: 06-01-2024 Blood count complete auto&auto difrntl wbc Hiram Andrews Masci DO Work Phone: Start: 05-18-2024 Blood count complete auto&auto difrntl wbc Hiram Andrews Masci DO Work Phone: Start: 05-07-2024 CBC + DIFF Hiram Andrews Mas ci DO Work Phone: Start: 05-07-2024 Comprehensive metabo lic 2000 panel - Serum or Plasma Hiram Andrews Masci DO Work Phone: Start: 05-03-2024 Blood count complete auto&auto difrntl wbc Hiram Andrews Masci DO Work Phone: Start: 04-19-2024 Blood count complete auto&auto difrntl wbc Hiram Andrews Masci DO Work Phone: Start: 04-12-2024 Blood count complete auto&auto difrntl wbc Hiram Andrews Masci DO Work Phone: Start: 04-05-2024 Blood count complete auto&auto difrntl wbc Hiram A Masci DO Work Phone: Start: 03-29-2024 Blood count complete auto&auto difrntl wbc Hiram Andrews Masci DO Work Phone: Start: 03-21-2024 Blood count complete auto&auto difrntl wbc Hiram A Masci DO Work Phone: Start: 03-19-2024 Blood count complete auto&auto difrntl wbc Hiram Andrews Masci DO Work Phone: Start: 02-28-2024 Blood count complete auto&auto difrntl wbc Hiram A Masci DO Work Phone: Start: 02-06-2024 Blood count complete auto&auto difrntl wbc Hiram Andrews Masci DO Work Phone: Start: 01-23-2024 End: 01-23-2024 Blood count complete auto&auto difrntl wbc Hiram A Masci DO Work Phone: Start: 01-19-2024 Blood count complete auto&auto difrntl wbc Hiram A Masci DO Work Phone: Start: 01-16-2024 Blood count complete auto&auto difrntl wbc Hiram Andrews Masci DO Work Phone: Start: 01-11-2024 CBC + DIFF Hiram Andrews Mas ci DO Work Phone: Start: 01-04-2024 CBC + DIFF Hiram Begum ci DO Work Phone: Start: 12-28-2023 Blood count complete auto&auto difrntl wbc Hiram Andrews Masci DO Work Phone: Start: 12-27-2023 Blood count complete auto&auto difrntl wbc Hiram Andrews Masci DO Work Phone: Start: 12-27-2023 Immunoassay tumor an tigen quantitative ca 125 Hiram Andrews Masci DO Work Phone: Start: 12-06-2023 Us abdominal real ti me w/image limited Hiram Andrews Masci DO Work Phone: Start: 12-05-2023 Blood count complete auto&auto difrntl wbc Hiram Andrews Masci DO Work Phone: Start: 11-18-2023 Blood count complete auto&auto difrntl wbc Hiram nAdrews Masci DO Work Phone: Start: 11-18-2023 Immunoassay tumor an tigen quantitative ca 125 Hiram Andrews Masci DO Work Phone: Start: 10-10-2023 Blood count complete auto&auto difrntl wbc Hiram Andrews Masci DO Work Phone: Start: 10-07-2023 Blood count complete auto&auto difrntl wbc Hiram Andrews Masci DO Work Phone: Start: 10-07-2023 Immunoassay tumor an tigen quantitative ca 125 Hiram Andrews Masci DO Work Phone: Start: 09-20-2023 Blood count complete auto&auto difrntl wbc Hiram Andrews Masci DO Work Phone: Start: 09-16-2023 Blood count complete auto&auto difrntl wbc Hiram Andrews Masci DO Work Phone: Start: 08-26-2023 Blood count complete auto&auto difrntl wbc Hiram A Masci DO Work Phone: Start: 08-26-2023 Immunoassay tumor an tigen quantitative ca 125 Hiram Mccoy DO Work Phone: Start: 07-10-2023 SARS-CoV-2 & FLU Ant igen (Rapid) Start: 07-10-2023 Viral antigen assay Start: 07-10-2023 Computed tomography of abdomen and pelvis with contrast Start: 06-21-2023 Screening mammography Start: 01-04-[address] Milena Casanova Work Phone: Start: 12-02-2022 US scan of gallbladder Dr. Emily Casanova Work Phone: Start: 12-02-2022 Plain chest X-ray Dr. Milena Casanova Work Phone: Start: 10-20-2022 Transvaginal echography Start: 10-15-2022 Computed tomography of abdomen and pelvis with contrast Start: 07-06-2022 End: 07-06-2022 Computerized ophthalmic imaging retina Mark Kruse OD Work Phone: Start: 11-09-2007 Mammography Mark omalley II, OD Work Phone: Start: 01-04-2007 Lipid 1996 panel - S debra or Plasma Wendy Rivera RD Work Phone: Start: 02-10-2002 Colonoscopy Mark omalley II, OD Work Phone: Plan of Treatment Date Care Activity Detail Author Start: 02-09-2028 Diabetes Screening Diabetes Screenin [facility] Start: 11-03-2027 Diabetes Screening Diabetes Screenin [facility] Start: 09-06-2027 Diabetes Screening Diabetes Screenin [facility] Start: 08-27-2027 Diabetes Screening Diabetes Screenin g [facility] Start: 08-03-2027 Diabetes Screening Diabetes Screenin [facility] Start: 07-04-2027 Diabetes Screening Diabetes Screenin g [facility] Start: 06-15-2027 Diabetes Screening Diabetes Screenin g [facility] Start: 06-01-2027 Diabetes Screening Diabetes Screenin g [facility] Start: 05-18-2027 Diabetes Screening Diabetes Screenin g [facility] Start: 05-07-2027 Diabetes Screening Diabetes Screenin g [facility] Start: 05-03-2027 Diabetes Screening Diabetes Screenin g [facility] Start: 04-26-2027 Diabetes Screening Diabetes Screenin g [facility] Start: 04-05-2027 Diabetes Screening Diabetes Screenin g [facility] Start: 03-19-2027 Diabetes Screening Diabetes Screenin g [facility] Start: 02-05-2027 Diabetes Screening Diabetes Screenin g [facility] Start: 01-22-2027 Diabetes Screening Diabetes Screenin g [facility] Start: 01-15-2027 Diabetes Screening Diabetes Screenin g [facility] Start: 12-26-2026 Diabetes Screening Diabetes Screenin g [facility] Start: 12-04-2026 Diabetes Screening Diabetes Screenin g [facility] Start: 11-17-2026 Diabetes Screening Diabetes Screenin g [facility] Start: 10-31-2026 Diabetes Screening Diabetes Screenin g [facility] Start: 10-19-2026 Diabetes Screening Diabetes Screenin g [facility] Start: 10-06-2026 Diabetes Screening Diabetes Screenin g [facility] Start: 09-16-2026 Diabetes Screening Diabetes Screenin g [facility] Start: 08-26-2026 Diabetes Screening Diabetes Screenin g [facility] Start: 08-09-2026 Diabetes Screening Diabetes Screenin g [facility] Start: 04-03-2026 Complete blood count Hemoglobin/Jonathan tocrit [facility] Start: 03-18-2026 Complete blood count Hemoglobin/Jonathan tocrit [facility] Start: 03-07-2026 Complete blood count Hemoglobin/Jonathan tocrit [facility] Start: 02-08-2026 Complete blood count Hemoglobin/Jonathan tocrit [facility] Start: 02-08-2026 Creatinine measurement Serum Creatin ine [facility] Start: 10-23-2025 End: 10-23-2025 Patient encounter procedure 10/23/2025 10:00 AM EDT Office Visit [facility] [address] [place] [address] Mark Kruse II, OD [address] [place] [address] eye exam/[facility] Comment on above: eye exam/[facility] em Start: 06-26-2025 Screening for malign ant neoplasm of breast Mammogram Screening [facility] Start: 06-24-2025 End: 06-24-2025 ambulatory 06/24/2025 1:00 PM EST Visit (SP) Office [facility] [address] [place] [address] Guerrero Vilchis MD [address] [place] [address] [place] [id number] 4 month exam [facility] Comment on above: 4 month exam Start: 05-30-2025 End: 05-30-2025 ambulatory 05/30/2025 2:00 PM EST Infusion [facility] Hematology/Oncology [address] [place], [place] [id number] CBC(PORT)D8 GEMZAR* Hematology/Oncology Comment on above: CBC(PORT)D8 GEMZAR* Start: 05-23-2025 End: 05-23-2025 ambulatory 05/23/2025 9:30 AM EDT Infusion Center Hematology/Oncology [address], [place] [id number] Q3WK MVASI/GEMZAR/CARBO(PORT)L AB&OV 05/21* Hematology/Oncology Comment on above: Q3WK MVASI/GEMZAR/CA RBO(PORT)LAB&OV 05/21* Start: 05-21-2025 End: 05-21-2025 ambulatory Hematology/Oncology Comment on above: CBC/CMP/MG/CA125/B/O URINE DIP(PORT)OV TODAY* OV(PORT)LAB EARLY/CH EMO 05/23* MASCI Start: 05-08-2025 End: 05-08-2025 ambulatory Hematology/Oncology Comment on above: (SO)CBC/CMP(S)/CA125 (PORT)/OV TODAY* 3MO OV/EARLY LABS* CBC/D8 GEMZAR(PORT)* CBC(PORT)D8 GEMZAR* Start: 05-01-2025 End: 05-01-2025 ambulatory Hematology/Oncology Comment on above: QMO CBC/CMP/CA125(PO RT) 3MO OV/EARLY LABS* (SO)CBC/CMP(S)/CA125 (PORT)/OV TODAY* Q3WK MVASI/GEMZAR/CA RBO(PORT)LAB&OV 04/30* Start: 04-30-2025 End: 04-30-2025 ambulatory 04/30/2025 10:30 AM EDT Visit (SP) Office Hematology/Oncology [address] [place] [address] Peg Crowell [address] [place] [address] OV(PORT)LAB EARLY/CHEMO 05/01* [facility] Hematology/Oncology Comment on above: OV(PORT)LAB EARLY/CH EMO 05/01* MASCI Start: 04-30-2025 End: 04-30-2025 ambulatory Hematology/Oncology Comment on above: CBC/CMP/MG/CA125/B/O URINE DIP(PORT)OV TODAY* OV(PORT)LAB EARLY/CH EMO 05/01* MASCI Start: 04-17-2025 End: 04-17-2025 ambulatory Hematology/Oncology Comment on above: CBC/D8 GEMZAR(PORT)* CBC(PORT)D8 GEMZAR* Start: 04-11-2025 End: 04-11-2025 ambulatory Hematology/Oncology Comment on above: STRAIGHTBACK START C BC/CMP/MG/CA125/B/O URINE DIP(PORT)Q3WK MVASI/GEMZAR/CARBO* CBC/CMP/MG/CA125/B/O URINE DIP(PORT)START Q3WK MVASI/GEMZAR/CARBO* CBC/CMP/MG/CA125/RET IC COUNT/TSH/CRP/COPPER/B/O URINE DIP(PORT)START Q3WK MVASI/GEMZAR/CARBO* Start: 04-03-2025 End: 07-03-2025 C reactive protein [Mass/volume] in Serum or Plasma C-REACTIVE PROTEIN Lab Routine 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 chemotherapy Ovarian cancer on left (HCC) Expected: 04/03/2025, Expires: 07/03/2025 [facility] Comment on above: Expected: 04/03/2025 , Expires: 07/03/2025 Start: 04-03-2025 End: 07-03-2025 COPPER BLOOD COPPER BLOOD Lab Routine 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 chemotherapy Ovarian cancer on left (HCC) Expected: 04/03/2025, Expires: 07/03/2025 [facility] Comment on above: Expected: 04/03/2025 , Expires: 07/03/2025 Start: 04-03-2025 End: 07-03-2025 RETICULOCYTE COUNT RETICULOCYTE COUNT Lab Routine 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 chemotherapy Ovarian cancer on left (HCC) Expected: 04/03/2025, Expires: 07/03/2025 [facility] Work Phone: Comment on above: Expected: 04/03/2025 , Expires: 07/03/2025 Start: 04-03-2025 End: 07-03-2025 Thyrotropin [Units/volume] in Serum or Plasma THYROID STIMULATING HORMONE Lab Routine 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 chemotherapy Ovarian cancer on left (HCC) Expected: 04/03/2025, Expires: 07/03/2025 [facility] Comment on above: Expected: 04/03/2025 , Expires: 07/03/2025 Start: 04-03-2025 End: 04-03-2025 ambulatory Hematology/Oncology Comment on above: QMO CBC(PORT) (SO)CBC(PORT)* (SO)CBC(?TX)(PORT)* Start: 03-25-2025 Influenza vaccination Influenza Vacc ine (#1) [facility] Start: 03-20-2025 End: 03-20-2025 ambulatory 03/20/2025 1:30 PM EDT Infusion Center Hematology/Oncology [address] [place] [address] Wstr, Linen Folder [facility] [address] [facility] [place] [address] CHEMO ED Hematology/Oncology Comment on above: CHEMO ED Start: 03-18-2025 End: 03-18-2025 Specialty Pharmacy [facility] Comment on above: Refill - Lynparza [3 0D] - CBC/?TX(PORT)* (SO)CBC(?TX)(PORT)* Start: 03-15-2025 End: 03-15-2025 ambulatory 03/15/2025 10:00 AM EDT Visit (SP) Office Hematology/Oncology [address] [place] [address] Hiram Mccoy DO [address] [place] [address] OV/DISCUSS TREATMENT PLAN* Hematology/Oncology Comment on above: OV/DISCUSS TREATMENT PLAN* Start: 03-08-2025 End: 03-08-2025 ambulatory 03/08/2025 10:15 AM EDT Infusion Center Hematology/Oncology [address] [place] [address] Wstr, Lab/Port Jonathan [facility] [address] [place] [address] IRON STUDIES (PORT)* Hematology/Oncology Comment on above: IRON STUDIES (PORT)* Start: 03-07-2025 End: 03-07-2025 ambulatory Hematology/Oncology Comment on above: QMO CBC/SERUM FOLATE (PORT) (SO)CBC(PORT)* Start: 03-06-2025 End: 03-06-2025 ambulatory 03/06/2025 10:00 AM EDT Infusion Center Hematology/Oncology [address] [place] [address] Wstr, Lab/Port Jonathan [facility] [address] [place] [address] QMO CBC/SERUM FOLATE(PORT) Hematology/Oncology Comment on above: QMO CBC/SERUM FOLATE (PORT) Start: 03-05-2025 End: 03-05-2025 Patient encounter procedure Cat Scan Comment on above: Ovarian cancer, bila teral (HCC) [C56.3] Start: 03-05-2025 End: 03-05-2025 ambulatory 03/05/2025 8:00 AM EDT Infusion Center Hematology/Oncology [address] [place] [address] 2ND FLOOR Hematology/Oncology Comment on above: 2ND FLOOR Start: 02-27-2025 End: 02-27-2025 ambulatory 02/27/2025 1:00 PM EDT Visit (SP) Office [facility] [address] [place] [address] Mayte Gonzalez, VLADIMIR.HOUSEKEEPING ASSISTANT [address] [place] [address] 3 month exam [facility] Comment on above: 3 month exam Start: 02-22-2025 End: 02-22-2025 ambulatory 02/22/2025 9:30 AM EDT Infusion Center Hematology/Oncology [address] [place] [address] 2ND FLOOR Hematology/Oncology Comment on above: 2ND FLOOR Start: 02-20-2025 End: 02-20-2025 ambulatory 02/20/2025 9:30 AM EDT Infusion Center Hematology/Oncology [address] [place] [address] 2ND FLOOR Hematology/Oncology Comment on above: 2ND FLOOR Start: 02-18-2025 End: 02-18-2025 ambulatory 02/18/2025 1:30 PM EDT Infusion Center Hematology/Oncology [address] [place] [address] 2ND FLOOR Hematology/Oncology Comment on above: 2ND FLOOR Start: 02-15-2025 End: 02-15-2025 ambulatory 02/15/2025 1:30 PM EDT Infusion Center Hematology/Oncology [address] [place] [address] 2ND FLOOR Hematology/Oncology Comment on above: 2ND FLOOR Start: 02-15-2025 End: 02-15-2025 Specialty Pharmacy 02/15/2025 7:15 AM EDT Specialty Pharmacy [facility] [address] [place] [address] Drive [address] [place] [address] Pharmacist, [facility] [address] [place] [address] [place] [address] Refill - Lynparza [30D] - [facility] Comment on above: Refill - Lynparza [3 0D] - Start: 02-08-2025 End: 02-08-2025 ambulatory [facility] Comment on above: CBC/CMP/CA125 3 MO OV/LAB EARLY* CBC/CMP/CA125(PORT)* 3 MO OV(PORT)LAB EAR LY* Start: 02-08-2025 End: 05-10-2025 Cobalamin (Vitamin B12) [Mass/volume] in Serum or Plasma [facility] Comment on above: Expected: 02/08/2025 , Expires: 05/10/2025 Start: 02-08-2025 End: 05-10-2025 Ferritin [Mass/volume] in Serum or Plasma [facility] Comment on above: Expected: 02/08/2025 , Expires: 05/10/2025 Start: 02-08-2025 End: 05-10-2025 Folate [Mass/volume] in Serum or Plasma FOLATE, SERUM Lab Routine Anemia, unspecified type Expected: 02/08/2025, Expires: 05/10/2025 [facility] Comment on above: Expected: 02/08/2025 , Expires: 05/10/2025 Start: 02-08-2025 End: 05-10-2025 Iron and Iron binding capacity panel - Serum or Plasma [facility] Comment on above: Expected: 02/08/2025 , Expires: 05/10/2025 Start: 02-08-2025 End: 05-10-2025 Methylmalonate [Moles/volume] in Serum or Plasma [facility] Comment on above: Expected: 02/08/2025 , Expires: 05/10/2025 Start: 01-18-2025 End: 01-18-2025 Specialty Pharmacy 01/18/2025 8:00 AM EDT Specialty Pharmacy [facility] [address] [place], [place] 222054[address] [place] [address] Pharmacist, [facility] [address] [place] [address] [place] [address] Refill - Lynparza [30D] - [facility] Comment on above: Refill - Lynparza [3 0D] - Start: 01-03-2025 End: 01-03-2025 ambulatory [facility] Comment on above: QMO CBC QMO CBC(PORT)* Start: 12-18-2024 End: 12-18-2024 Specialty Pharmacy 12/18/2024 8:15 AM EDT Specialty Pharmacy [facility] [address] [place] [id number] Pharmacist, [facility] [address] [place] [address] [place] [address] Refill - Lynparza [30D] - [facility] Comment on above: Refill - Lynparza [3 0D] - Start: 11-30-2024 End: 11-30-2024 ambulatory 11/30/2024 1:30 PM EDT Visit (SP) Office [facility] [address] [place] [address] Guerrero Vilchis MD [address] [address] 3 month exam [facility] Comment on above: 3 month exam Start: 11-29-2024 End: 11-29-2024 ambulatory 11/29/2024 10:00 AM EDT Results Only [facility] [address] [place] [address] QMO CBC [facility] Comment on above: QMO CBC Start: 11-22-2024 End: 11-22-2024 ambulatory 11/22/2024 10:00 AM EDT Visit (SP) Office [facility] [address] [place] [address] Guerrero Vilchis MD [address] [address] 3 month exam [facility] Comment on above: 3 month exam Start: 11-19-2024 End: 11-19-2024 Specialty Pharmacy 11/19/2024 8:00 AM EDT Specialty Pharmacy [facility] [address] [place] [address] Pharmacist, [facility] [address] [place] [address] [place] [address] Refill - Lynparza [30D] - [facility] Comment on above: Refill - Lynparza [3 0D] - Start: 11-02-2024 End: 11-02-2024 ambulatory Hematology/Oncology Comment on above: (SO)CBC/CMP(S)/CA125 (PORT)/OV TODAY* 3 MO OV(PORT)LAB EAR LY* Start: 10-22-2024 End: 10-22-2024 Specialty Pharmacy 10/22/2024 8:00 AM EDT Specialty Pharmacy [facility] [address] [phone] Pharmacist, [facility] [address] [place] [address] [place], [place] [phone] Refill - Lynparza [30DS] [facility] Comment on above: Refill - Lynparza [3 0DS] Start: 09-28-2024 End: 09-28-2024 Patient encounter procedure 09/28/2024 11:30 AM EST Office Visit [facility] [address] [facility] [address] [place], [place] [phone] Rohit Miles MD [address] [facility] [address] [place], [place] [phone] Post Op Colostomy Reversal [facility] Comment on above: Post Op Colostomy Re versal Start: 09-28-2024 End: 09-28-2024 ambulatory Hematology/Oncology Comment on above: QMO CMP(S)(PORT)* QMO CMP(S)/ CA-125 ( PORT)* QMO CBC (TX ?)/CA-12 5 (PORT)* Start: 09-19-2024 End: 09-19-2024 Specialty Pharmacy 09/19/2024 7:45 AM EST Specialty Pharmacy [facility] [address] [address] Pharmacist, [facility] [address] [place] [address] [place] [address] Refill - Lynparza [30D] - [facility] 09/17 [facility] Comment on above: Refill - Lynparza [3 0D] - [facility] 09/17 Start: 09-17-2024 End: 09-17-2024 Patient encounter procedure 09/17/2024 3:30 PM EST Office Visit [facility] [address] [facility] 202 [place] [address] Rohit Miles MD 1 [facility] 372 [place] [address] Post Op Colostomy Reversal [facility] Comment on above: Post Op Colostomy Re versal Start: 09-17-2024 End: 09-17-2024 Specialty Pharmacy 09/17/2024 7:30 AM EST Specialty Pharmacy [facility] [address] [place] [address] [address] Pharmacist, [facility] [address] [place] [phone] Refill - Lynparza [30D] - [facility] Comment on above: Refill - Lynparza [3 0D] - Start: 09-04-2024 End: 09-04-2024 Admission to same day surgery center 09/04/2024 7:30 AM EST - 09/04/2024 10:15 AM EST Surgery [facility] 1 [place] [address] Rohit Miles MD 1 [facility] [address] [place] [address] COLOSTOMY CLOSURE [facility] Comment on above: COLOSTOMY CLOSURE Start: 09-04-2024 End: 09-04-2024 Clsr ntrstm lg/sm rescj & colorectal anastomosis CLOSURE COLOSTOMY LITHOTOMY ADULT Attention to colostomy (HCC) 09/04/2024 7:30 AM EST [facility] OR Start: 09-04-2024 Subsequent hospital visit by physician 09/04/2024 7:30 AM EST Hospital Encounter [facility] 1 [place] [address] Rohit Miles MD [address] [address] Attention to colostomy (HCC) [Z43.3] [facility] Comment on above: Attention to colosto my (HCC) [Z43.3] Start: 08-31-2024 End: 08-31-2024 ambulatory Hematology/Oncology Comment on above: QMO CMP(S)(PORT)* QMO CMP(S)/CA 125(PO RT)* Start: 08-27-2024 End: 08-27-2024 ambulatory 08/27/2024 10:40 AM EST PAT Pre Surgical Testing [address] [place] [address] COLOSTOMY CLOSURE Pre Surgical Testing Comment on above: COLOSTOMY CLOSURE Start: 08-23-2024 End: 08-23-2024 ambulatory 08/23/2024 11:30 AM EST Visit (SP) Office [facility] [address] [place] [address] Guerrero Vilchis MD [address] [address] 3 month exam [facility] Comment on above: 3 month exam Start: 08-20-2024 End: 08-20-2024 Specialty Pharmacy 08/20/2024 8:00 AM EST Specialty Pharmacy [facility] [address] [place], [place] [address]54-[address] [place] [phone] Pharmacist, [facility] [address] [place] [phone] Refill - Lynparza (30 DS) [facility] Comment on above: Refill - Lynparza (3 0 DS) Start: 08-16-2024 End: 08-16-2024 ambulatory 08/16/2024 10:00 AM EST Visit (SP) Office [facility] [address] [place] [address] Guerrero Vilchis MD [address] [place], [place] [phone] 3 month exam [facility] Comment on above: 3 month exam Start: 08-15-2024 End: 08-15-2024 Patient encounter procedure 08/15/2024 10:00 AM EST Appointment [facility] [address] [place] [address] Attention to colostomy (HCC) [Z43.3] [facility] Comment on above: Attention to colosto my (HCC) [Z43.3] Start: 08-13-2024 End: 08-13-2024 Specialty Pharmacy 08/13/2024 7:30 AM EST Specialty Pharmacy [facility] [address] [place], [place] [address]2054[address] [place] [address] Pharmacist, [facility] [address] [place] [address] Refill - Lynparza (30 DS) new ins on file, check for PA [facility] Comment on above: Refill - Lynparza (3 0 DS) new ins on file, check for PA Start: 08-10-2024 End: 08-10-2024 Patient encounter procedure 08/10/2024 9:30 AM EST Office Visit [facility] [address] [facility] [address] [place], [place] [address] Rohit Miles MD 1 [facility] [address] [place], [place] [phone] 3 month f/u [facility] Comment on above: 3 month f/u Start: 08-03-2024 End: 08-03-2024 ambulatory Hematology/Oncology Comment on above: (SO)CBC/CMP(S)/CA125 (PORT)/OV TODAY* 3 MO OV(PORT)LAB EAR LY* Start: 07-25-2024 Advance Directive Discussion Advance Directive Discussion [facility] Start: 07-25-2024 Medicare Advantage Annual Wellness Visit Medicare Advantage Annual Wellness Visit [facility] Start: 07-19-2024 End: 07-19-2024 Specialty Pharmacy 07/19/2024 7:15 AM EST Specialty Pharmacy [facility] [address] [place] [address] Pharmacist, [facility] [address] [place] [address] [place] [address] Refill - Lynparza (30 DS) [facility] Comment on above: Refill - Lynparza (3 0 DS) Start: 07-17-2024 Covid-19 Vaccine ( season) Covid-19 Vaccine () [facility] Start: 07-04-2024 End: 07-04-2024 ambulatory 07/04/2024 10:00 AM EST Infusion Center Hematology/Oncology [address] [place] [address] Wstr, Lab/Port Jonathan [facility] [address] [place] [address] CBC(PORT)* Hematology/Oncology Comment on above: CBC(PORT)* Start: 06-22-2024 End: 06-22-2024 Specialty Pharmacy 06/22/2024 8:00 AM EST Specialty Pharmacy [facility] [address] [place] [address] Pharmacist, [facility]ty[facility] [address] [place] [address] [place] [address] Refill - Lynparza (30 DS) [facility] Comment on above: Refill - Lynparza (3 0 DS) Start: 06-15-2024 End: 06-15-2024 ambulatory 06/15/2024 10:00 AM EST Infusion Center Hematology/Oncology [address] [place] [address] Wstr, Lab/Port Jonathan c [address] [place] [address] (SO)CBC/CMP(S)/CA125(PORT )* Hematology/Oncology Comment on above: (SO)CBC/CMP(S)/CA125 (PORT)* Start: 06-01-2024 End: 06-01-2024 ambulatory 06/01/2024 10:00 AM [facility] Center Hematology/Oncology [address] [place] [address] Wstr, Lab/Port [place] [facility] [address] [place] [address] (SO)CBC/CMP(S)(PORT)* Hematology/Oncology Comment on above: (SO)CBC/CMP(S)(PORT) * Start: 05-25-2024 End: 05-25-2024 Specialty Pharmacy 05/25/2024 7:00 AM EDT Specialty Pharmacy [facility] [place] [address] Pharmacist, [facility] [address] [place] [address] [place] [address] Refill - Lynparza (30 DS) [facility] Comment on above: Refill - Lynparza (3 0 DS) Start: 05-18-2024 End: 05-18-2024 Specialty Pharmacy [facility] Comment on above: Refill - Lynparza (3 0 DS) (SO)CBC/CMP(S)(PORT) * (SO)CBC/CMP(S)/CA 12 5(PORT)* Start: 05-17-2024 End: 05-17-2024 ambulatory 05/17/2024 10:30 AM EDT Visit (SP) Office [facility] [address] [place], [place] [phone] Guerrero Vilchis MD [address] [place], [place] [id number] 3 month exam [facility] Comment on above: 3 month exam Start: 05-11-2024 End: 05-11-2024 Patient encounter procedure 05/11/2024 11:30 AM EDT Office Visit [facility] [address] [place], [place] [phone] Rohit Miles MD [address] [facility] [address] [place], [place] [phone] Post Op Lap colostomy Reversal [facility] Comment on above: Post Op Lap colostom y Reversal Start: 05-09-2024 End: 05-09-2024 Patient encounter procedure 05/09/2024 11:00 AM EDT Office Visit [facility] 1 [facility] 3rd Floor [place], [place] [phone] Rohit Miles MD 1 [facility] [address] [place] [address] Post Op Lap colostomy Reversal [facility] Comment on above: Post Op Lap colostom y Reversal Start: 05-07-2024 End: 05-07-2024 ambulatory 05/07/2024 10:00 AM EDT Infusion Center Hematology/Oncology [address] [place] [address] Wstr, Lab/Port Jonathan [facility] [address] [place] [address] CMP(PORT)* Hematology/Oncology Comment on above: CMP(PORT)* Start: 05-03-2024 End: 05-03-2024 ambulatory Hematology/Oncology Comment on above: QWK CBC ?TX(PORT)* OV(PORT)LAB EARLY* QWK CBC/CMP/CA125 ?T X(PORT)* Start: 04-26-2024 End: 04-26-2024 ambulatory 04/26/2024 10:30 AM EDT Infusion Center Hematology/Oncology [address] [place] [address] Wstr, Lab/Port Jonathan [facility] [address] [place] [address] CBC/CMP/CA125(PORT)* Hematology/Oncology Comment on above: CBC/CMP/CA125(PORT)* Start: 04-24-2024 End: 04-24-2024 Admission to same day surgery center 04/24/2024 8:00 AM EDT - 04/24/2024 2:45 PM EDT Surgery [facility] 1 [address] [facility] [place] [address] Rohit Miles MD 1 [facility] [address] [place] [address] LAPAROSCOPIC COLOSTOMY REVERSAL [facility] Comment on above: LAPAROSCOPIC COLOSTO MY REVERSAL Start: 04-24-2024 End: 04-24-2024 Laps moblj splenic flxr pfrmd w/prtl colectomy COLECTOMY PARTIAL, LAPAROSCOPIC Attention to colostomy (HCC) 04/24/2024 8:00 AM EDT [facility] OR Start: 04-24-2024 Subsequent hospital visit by physician 04/24/2024 8:00 AM EDT Hospital Encounter [facility] 1 [address] [facility] [place] [address] Rohit Miles MD 1 [address] [facility] [address] [place] [address] Attention to colostomy (HCC) [Z43.3] [facility] Comment on above: Attention to colosto my (HCC) [Z43.3] Start: 04-20-2024 End: 04-20-2024 ambulatory 04/20/2024 2:20 PM EDT PAT Pre Surgical Testing [address] [place], [place] [phone] LAPAROSCOPIC COLOSTOMY REVERSAL Pre Surgical Testing Comment on above: LAPAROSCOPIC COLOSTO MY REVERSAL Start: 04-20-2024 End: 04-20-2024 Telephone encounter 04/20/2024 8:30 AM EDT Specialty Pharmacy [facility] [address] [place] [address]-[address] [place] [address] Pharmacist, [facility] [address] [place] [address] [place] [address] Refill - Lynparza (30 DS) Per telephone encounter 04/16 pt is having surgery and does not necessarily need to hold the med but Pt to check CBC, if platelet count lower, then she will be instructed to hold lynparza. Labs 04/19 - Review chart for updates. [facility] Comment on above: Refill - Lynparza (3 0 DS) Per telephone encounter 04/16 pt is having surgery and does not necessarily need to hold the med but Pt to check CBC, if platelet count lower, then she will be instructed to hold lynparza. Labs 04/19 - Review chart for updates. Start: 04-19-2024 End: 04-19-2024 Specialty Pharmacy [facility] Comment on above: Refill - Lynparza (3 0 DS) QWK CBC ?TX(PORT)* Start: 04-12-2024 End: 04-12-2024 ambulatory 04/12/2024 10:30 AM EDT Infusion Center Hematology/Oncology [address] [place] [address] Wstr, Lab/Port [place] [facility] [address] [place] [address] QWK CBC ?TX(PORT)* Hematology/Oncology Comment on above: QWK CBC ?TX(PORT)* Start: 04-06-2024 End: 04-06-2024 Patient encounter procedure 04/06/2024 9:30 AM EDT [facility] [address] [place] [phone] Rohit Miles MD [address] [place], [place] [phone] discuss takedown [facility] Comment on above: discuss takedown [facility] Start: 04-05-2024 End: 04-05-2024 ambulatory 04/05/2024 10:30 AM EDT Infusion Center Hematology/Oncology [address] [place] [address] Wstr, Lab/Port Jonathan [facility] [address] [place] [address] QWK CBC ?TX(PORT)* Hematology/Oncology Comment on above: QWK CBC ?TX(PORT)* Start: 03-25-2024 Covid-19 Vaccine ( season) Covid-19 Vaccine ( season) [facility] Start: 03-25-2024 Influenza vaccination C [facility] Start: 03-21-2024 End: 03-21-2024 ambulatory 03/21/2024 10:45 AM EDT Infusion Center Hematology/Oncology [address] [place] [address] Wstr, Lab/Port Jonathan [facility] [address] [place] [address] COPPER/RETIC/IRON STUDIES(PORT)* Hematology/Oncology Comment on above: COPPER/RETIC/IRON ST UDIES(PORT)* Start: 03-20-2024 End: 06-19-2024 COPPER BLOOD COPPER BLOOD Lab Routine Anemia, unspecified type Expected: 03/20/2024, Expires: 06/19/2024 [facility] Work Phone: Comment on above: Expected: 03/20/2024 , Expires: 06/19/2024 Start: 03-20-2024 End: 06-19-2024 Ferritin [Mass/volume] in Serum or Plasma FERRITIN Lab Routine Anemia, unspecified type Expected: 03/20/2024, Expires: 06/19/2024 [facility] Comment on above: Expected: 03/20/2024 , Expires: 06/19/2024 Start: 03-20-2024 End: 06-19-2024 Iron and Iron binding capacity panel - Serum or Plasma IRON AND TIBC Lab Routine Anemia, unspecified type Expected: 03/20/2024, Expires: 06/19/2024 [facility] Comment on above: Expected: 03/20/2024 , Expires: 06/19/2024 Start: 03-20-2024 End: 06-19-2024 RETICULOCYTE COUNT RETICULOCYTE COUNT Lab Routine Anemia, unspecified type Expected: 03/20/2024, Expires: 06/19/2024 [facility] Comment on above: Expected: 03/20/2024 , Expires: 06/19/2024 Start: 03-19-2024 End: 03-19-2024 ambulatory Hematology/Oncology Comment on above: (SO)CBC/CMP(S)/CA125 (PORT)/OV TODAY* 6 WK OV(PORT)/LABS E ROSAURA* Start: 03-19-2024 End: 06-18-2024 Cobalamin (Vitamin B12) [Mass/volume] in Serum or Plasma [facility] Comment on above: Expected: 03/19/2024 , Expires: 06/18/2024 Start: 03-19-2024 End: 06-18-2024 Folate [Mass/volume] in Serum or Plasma [facility] Comment on above: Expected: 03/19/2024 , Expires: 06/18/2024 Start: 03-19-2024 End: 06-18-2024 Thyrotropin [Units/volume] in Serum or Plasma [facility] Comment on above: Expected: 03/19/2024 , Expires: 06/18/2024 Start: 02-28-2024 End: 02-28-2024 ambulatory 02/28/2024 8:00 AM EDT [facility] Center Hematology/Oncology [address] [place] [address] Q3WK CARBO/TAXOL(PORT)/LAB&OV 02/05/AUTH EXP 02/15/24* Hematology/Oncology Comment on above: Q3WK CARBO/TAXOL(POR T)/LAB&OV 02/05/AUTH EXP 02/15/24* Start: 02-27-2024 End: 02-27-2024 ambulatory Hematology/Oncology Comment on above: (SO)CBC/CMP(S)/CA125 (PORT)/OV TODAY* OV(PORT)/LABS EARLY/ CHEMO 02/27* Start: 02-13-2024 End: 02-13-2024 Follow-up encounter 02/13/2024 10:30 AM EDT Visit (SP) Office [facility] [address] [place] [address] Guerrero Vilchis MD [address] [address] FOLLOW UP/CT 01/31 [facility] Comment on above: FOLLOW UP/CT 01/31 Start: 02-10-2024 End: 02-10-2024 Follow-up encounter 02/10/2024 3:00 PM EDT Visit (SP) Office [facility] [address] [place] [address] Guerrero Vilchis MD [address] [place] [address] FOLLOW UP/CT 01/31 [facility] Comment on above: FOLLOW UP/CT 01/31 Start: 02-07-2024 End: 02-07-2024 ambulatory 02/07/2024 8:30 AM EDT Infusion Center Hematology/Oncology [address] [place] [id number] Q3WK CARBO/TAXOL(PORT)/LAB&OV 02/05/AUTH EXP 02/15/24* Hematology/Oncology Comment on above: Q3WK CARBO/TAXOL(POR T)/LAB&OV 02/05/AUTH EXP 02/15/24* Start: 02-06-2024 End: 02-06-2024 ambulatory Hematology/Oncology Comment on above: (SO)CBC/CMP(S)/CA125 (PORT)/OV TODAY* OV(PORT)/LABS EARLY/ CHEMO 02/06* (SO)CBC(?TX)/CMP(S)/ CA125(PORT)/OV TODAY* Start: 02-01-2024 End: 02-01-2024 Patient encounter procedure Cat Scan Comment on above: Ovarian cancer, bila teral (HCC) [C56.3] Start: 01-23-2024 End: 01-23-2024 ambulatory 01/23/2024 8:00 AM EDT [facility] H[facility]Oncology [address] [place] [address] ?REDRAW LAB/Q3WK CARBO/TAXOL(PORT)/LAB&OV 01/15/AUTH EXP 02/15/24* Hematology/Oncology Comment on above: ?REDRAW LAB/Q3WK CAR JANI/TAXOL(PORT)/LAB&OV 01/15/AUTH EXP 02/15/24* Start: 01-19-2024 End: 01-19-2024 ambulatory 01/19/2024 8:15 AM EDT [facility] Hematology/Oncology [address] [place] [address] Wstr, Lab/Port [place] [facility] [address] [place] [address] (SO)CBC(?TX)(PORT)* Hematology/Oncology Comment on above: (SO)CBC(?TX)(PORT)* Start: 01-17-2024 End: 01-17-2024 ambulatory 01/17/2024 8:30 AM EDT [facility] Hematology[facility]Oncology [address] [place] [address] Q3WK CARBO/TAXOL(PORT)/LAB&OV 01/15/AUTH EXP 02/15/24* Hematology/Oncology Comment on above: Q3WK CARBO/TAXOL(POR T)/LAB&OV 01/15/AUTH EXP 02/15/24* Start: 01-16-2024 End: 01-16-2024 ambulatory Hematology/Oncology Comment on above: (SO)CBC/CMP(S)/CA125 (PORT)/OV TODAY* OV(PORT)/LABS EARLY/ CHEMO 01/16* Start: 01-11-2024 End: 01-11-2024 ambulatory Hematology/Oncology Comment on above: CBC(?TX) (SO)CBC(?TX) Start: 01-04-2024 End: 01-04-2024 ambulatory 01/04/2024 8:30 AM EDT [facility] Hematology[facility]Oncology [address] [place] [address] Wstr, Lab/Port [place] [facility] [address] [place] [address] CBC(?TX) Hematology/Oncology Comment on above: CBC(?TX) Start: 12-28-2023 End: 12-28-2023 ambulatory Hematology/Oncology Comment on above: Q3WK CARBO/TAXOL(POR T)/LAB&OV 12/26/AUTH EXP 02/15/24* RECHECK CBC/Q3WK CAR JANI/TAXOL(PORT)/LAB&OV 12/26/AUTH EXP 02/15/24* Start: 12-27-2023 End: 12-27-2023 ambulatory Hematology/Oncology Comment on above: (SO)CBC/CMP(S)/CA125 (PORT)/OV TODAY* OV(PORT)/LABS EARLY/ CHEMO 12/27* Start: 12-13-2023 End: 12-13-2023 ambulatory 12/13/2023 8:30 AM EDT [facility] Hematology[facility]Oncology [address] [place] [address] Q3WK CARBO/TAXOL(PORT)/LAB&OV AUTH EXP 02/15/24* Hematology/Oncology Comment on above: Q3WK CARBO/TAXOL(POR T)/LAB&OV AUTH EXP 02/15/24* Start: 12-12-2023 End: 12-12-2023 ambulatory Hematology/Oncology Comment on above: (SO)CBC/CMP(S)/CA125 (PORT)/OV TODAY* OV(PORT)/LABS EARLY/ CHEMO 12/12* Start: 12-06-2023 End: 12-06-2023 ambulatory 12/06/2023 10:00 AM EDT [facility] Hematology[facility]Oncology [address] [place] [address] Q3WK CARBO/TAXOL(PORT)/LAB&OV AUTH EXP 02/15/24* Hematology/Oncology Comment on above: Q3WK CARBO/TAXOL(POR T)/LAB&OV 12/04/AUTH EXP 02/15/24* Start: 12-05-2023 End: 12-05-2023 ambulatory Hematology/Oncology Comment on above: (SO)CBC/CMP(S)/CA125 (PORT)/OV TODAY* OV(PORT)/LABS EARLY/ CHEMO 12/05* Start: 11-04-2023 End: 02-03-2024 CBC panel - Blood by Automated count CBC Lab Routine Thrombocytopenia (HCC) Expected: 11/04/2023 (Approximate), Expires: 02/03/2024 [facility] Work Phone: Comment on above: Expected: 11/04/2023 (Approximate), Expires: 02/03/2024 Start: 10-13-2023 End: 01-12-2024 Cancer Ag 125 [Units/volume] in Serum or Plasma CA 125 BLD Lab Routine Preoperative examination Expected: 10/13/2023, Expires: 01/12/2024 [facility] Work Phone: Comment on above: Expected: 10/13/2023 , Expires: 01/12/2024 Start: 10-13-2023 End: 01-12-2024 CBC W Auto Differential panel - Blood CBC + DIFF Lab Routine Preoperative examination Expected: 10/13/2023, Expires: 01/12/2024 [facility] Work Phone: Comment on above: Expected: 10/13/2023 , Expires: 01/12/2024 Start: 10-13-2023 End: 01-12-2024 Comprehensive metabolic 2000 panel - Serum or Plasma COMP METABOLIC PANEL Lab Routine Preoperative examination Expected: 10/13/2023, Expires: 01/12/2024 [facility] Work Phone: Comment on above: Expected: 10/13/2023 , Expires: 01/12/2024 Start: 10-13-2023 End: 01-12-2024 TYPE AND SCREEN,30 DAY TYPE AND SCREEN,30 DAY Blood Bank Routine Preoperative examination Expected: 10/13/2023, Expires: 01/12/2024 [facility] Work Phone: Comment on above: Expected: 10/13/2023 , Expires: 01/12/2024 Start: 09-14-2023 End: 12-14-2023 MISC SEND OUT TST 1 MISC SEND OUT TST 1 Lab Routine Ovarian cancer on left (HCC) Expected: 09/14/2023, Expires: 12/14/2023 [facility] Work Phone: Comment on above: Expected: 09/14/2023 , Expires: 12/14/2023 Start: 07-25-2023 Advance Directive Discussion Advance Directive Discussion [facility] Start: 07-25-2023 Behavioral Health Screening Behavioral Health Screening [facility] Start: 07-25-2023 Depression Assessment Depression Ass essment [facility] Start: 03-25-2023 Influenza vaccination Influenza Vacc ine (#1) [facility] Start: 03-25-2022 Influenza vaccination INFLUENZA (#1) [facility] Start: 07-25-2021 ADVANCE DIRECTIVE DISCUSSION ADVANCE DIRECTIVE DISCUSSION [facility] Start: 07-25-2021 DEPRESSION ASSESSMENT DEPRESSION ASS ESSMENT [facility] Start: 08-15-2018 Urine microalbumin profile [facility] Start: 12-17-2015 BONE DENSITY BONE DENSITY [facility] Start: 12-17-2015 Screening for osteoporosis Bone Density Screening [facility] Start: 02-11-2012 Colonoscopy COLONOSCOPY [facility] Start: 02-11-2012 COLORECTAL CANCER SCREENING COLORECTAL CANCER SCREENING [facility] Start: 02-11-2012 Screening for malign ant neoplasm of colon [facility] Start: 01-05-2012 Lipid panel Lipid Screening [facility] Start: 01-05-2012 LIPID SCREEN LIPID SCREEN [facility] Start: 02-08-2011 DIABETES SCREEN DIABETES SCREEN [facility] Start: 2010 RSV Vaccine (1 - 1-d ose 60+ series) RSV Vaccine (1 - 1-dose 60+ series) [facility] Start: 2010 RSV Vaccine (1 - Ris k 60-74 years 1-dose series) RSV Vaccine (1 - Risk 60-74 years 1-dose series) [facility] Start: 11-08-2008 Mammography MAMMOGRAM [facility] Start: 11-08-2008 Screening for malign ant neoplasm of breast Mammogram Screening [facility] Start: 12-17-1995 COLOGUARD (FIT-DNA) COLOGUARD (FIT-D NA) [facility] Start: 12-17-[address] COLONOGRAPHY 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 DISEASE VISIT ANNUAL PCP TEAM CHRONIC DISEASE VISIT [facility] Start: 1968 Anxiety Screening Anxiety Screening [facility] Start: 1968 BP CONTROLLED (<130/80) BP CONTROLLE D (<130/80) [facility] Start: 1968 Depression Screening Depression Scre ening [facility] Start: 1968 HEPATITIS C SCREENING HEPATITIS C SC REENING [facility] Start: 1961 Screening for malign ant neoplasm of cervix Cervical Cancer Screening [facility] Start: 1956 Pneumococcal Vaccine : 65+ (1 of 2 - PCV) Pneumococcal Vaccine: 65+ (1 of 2 - PCV) [facility] Start: 1956 PNEUMOCOCCAL: 65+ (1 - PCV) PNEUMOCOCCAL: 65+ (1 - PCV) [facility] Start: 12-17-1955 Covid-19 Vaccine (#1) Covid-19 Vacci ne (#1) [facility] Start: 06-18-1951 COVID-19 VACCINE (#1) COVID-19 VACCI NE (#1) [facility] Cancer Ag 125 [Units/volume] in Serum or Plasma CA 125 BLD Lab Routine Ovarian cancer on left ([facility]) 09/16/2023 10:08 AM [facility] Work Phone: Cancer Ag 125 [Units/volume] in Serum or Plasma CA 125 BLD Lab Routine Ovarian cancer on left (HCC) 12/05/2023 1:34 PM EDT [facility] Work Phone: Cancer Ag 125 [Units/volume] in Serum or Plasma CA 125 BLD Lab Routine Ovarian cancer on left (HCC) 01/16/2024 3:08 PM T [facility] Work Phone: Cancer Ag 125 [Units/volume] in Serum or Plasma CA 125 BLD Lab Routine Ovarian cancer on left (HCC) 02/06/2024 3:08 PM T [facility] Work Phone: Cancer Ag 125 [Units/volume] in Serum or Plasma CA 125 BLD Lab Routine Ovarian cancer on left (HCC) 03/19/2024 2:59 PM T [facility] Work Phone: Cancer Ag 125 [Units/volume] in Serum or Plasma CA 125 BLD Lab Routine Ovarian cancer on left (HCC) 04/05/2024 10:36 AM [facility] Work Phone: Cancer Ag 125 [Units/volume] in Serum or Plasma CA 125 BLD Lab Routine Ovarian cancer on left (HCC) 05/03/2024 11:28 AM EDT [facility] Work Phone: Cancer Ag 125 [Units/volume] in Serum or Plasma CA 125 BLD Lab Routine Ovarian cancer on left (HCC) 05/18/2024 9:[address] [facility] [employer] Work Phone: Cancer Ag 125 [Units/volume] in Serum or Plasma CA 125 BLD Lab Routine Ovarian cancer on left (HCC) 06/01/2024 9:50 AM [employer] Work Phone: Cancer Ag 125 [Units/volume] in Serum or Plasma CA 125 BLD Lab Routine Ovarian cancer on left (HCC) 06/15/2024 10:08 AM [employer] Work Phone: Cancer Ag 125 [Units/volume] in Serum or Plasma CA 125 BLD Lab Routine Ovarian cancer on left (HCC) 07/04/2024 10:20 AM [employer] Work Phone: Cancer Ag 125 [Units/volume] in Serum or Plasma CA 125 BLD Lab Routine Ovarian cancer on left (HCC) 08/03/2024 9:54 AM [employer] Work Phone: Cancer Ag 125 [Units/volume] in Serum or Plasma CA 125 Lab Routine Ovarian cancer, bilateral (HCC) Anemia, unspecified type 08/31/2024 8:49 AM [employer] Work Phone: Cancer Ag 125 [Units/volume] in Serum or Plasma CA 125 Lab Routine Ovarian cancer, bilateral (HCC) Anemia, unspecified type 09/28/2024 8:49 AM [employer] Work Phone: Cancer Ag 125 [Units/volume] in Serum or Plasma CA 125 Lab Routine Ovarian cancer, bilateral (HCC) Anemia, unspecified type 11/02/2024 9:[address] [facility] [employer] [facility] Work Phone: Cancer Ag 125 [Units/volume] in Serum or Plasma CA 125 Lab Routine Ovarian cancer, bilateral (HCC) Anemia, unspecified type 11/29/2024 9:33 AM [employer] [facility] Work Phone: Cancer Ag 125 [Units/volume] in Serum or Plasma CA 125 Lab Routine Ovarian cancer, bilateral (HCC) Anemia, unspecified type 01/03/2025 9:41 AM [facility] Work Phone: Cancer Ag 125 [Units/volume] in Serum or Plasma CA 125 Lab Routine Ovarian cancer, bilateral (HCC) Anemia, unspecified type 02/08/2025 2:33 PM [facility] Work Phone: Cancer Ag 125 [Units/volume] in Serum or Plasma CA 125 Lab Routine Ovarian cancer, bilateral (HCC) Anemia, unspecified type 02/22/2025 9:16 AM [facility] Work Phone: End: 03-15-2026 Cancer Ag 125 [Units/volume] in Serum or Plasma CA 125 Lab Routine Ovarian cancer on left (HCC) 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) Once per month for 12 Occurrences starting 03/15/2025 until 03/15/2026 [facility] Comment on above: Once per month for 1 2 Occurrences starting 03/15/2025 until 03/15/2026 CARIS MA TUMOR SEEK HYBRID CARIS MA TUMOR SEEK HYBRID Lab Routine Ovarian cancer on left (HCC) 02/12/2024 1:33 PM [facility] Work Phone: CBC W Auto Different ial panel - Blood COMPLETE BLOOD COUNT AND DIFFERENTIAL Lab STAT Ovarian cancer on left (HCC) Ovarian cancer, bilateral (HCC) 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 chemotherapy Thrombocytopenia (HCC) 01/04/2024 8:21 AM [facility] Work Phone: CBC W Auto Different ial panel - Blood COMPLETE BLOOD COUNT AND DIFFERENTIAL Lab STAT Ovarian cancer on left (HCC) Ovarian cancer, bilateral (HCC) 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 chemotherapy Thrombocytopenia (HCC) 01/11/2024 8:02 AM [facility] Work Phone: End: 03-05-2026 CBC W Auto Differential panel - Blood COMPLETE BLOOD COUNT AND DIFFERENTIAL Lab STAT Ovarian cancer on left (HCC) Anemia, unspecified type Once per month for 12 Occurrences starting 03/06/2025 until 03/05/2026 [facility] Work Phone: Comment on above: Once per month for 1 2 Occurrences starting 03/06/2025 until 03/05/2026 End: 03-15-2026 Comprehensive metabolic 2000 panel - Serum or Plasma COMPREHENSIVE METABOLIC PANEL Lab Routine Ovarian cancer on left (HCC) 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) Once per month for 12 Occurrences starting 03/15/2025 until 03/15/2026 [facility] Comment on above: Once per month for 1 2 Occurrences starting 03/15/2025 until 03/15/2026 COPPER BLOOD COPPER BLOOD Lab Routine Anemia, unspecified type 03/21/2024 10:33 AM EDT [facility] Work Phone: End: 10-14-2024 CT Abdomen and Pelvis W contrast IV CT ABD/PEL W IVCON Radiology Routine Ovarian cancer on left (HCC) 1 Occurrences starting 09/16/2023 until 10/14/2024 [facility] Work Phone: Comment on above: 1 Occurrences starti ng 09/16/2023 until 10/14/2024 CT Abdomen and Pelvi s W contrast IV CT ABD/PEL W IVCON Radiology Routine Ovarian cancer on left (HCC) 10/04/2023 10:58 AM EDT [facility] Work Phone: End: 02-14-2025 CT Abdomen and Pelvis W contrast IV CT ABD/PEL W IVCON Radiology Routine Ovarian cancer, bilateral (HCC) 1 Occurrences starting 01/16/2024 until 02/14/2025 [facility] Comment on above: 1 Occurrences starti ng 01/16/2024 until 02/14/2025 CT Abdomen and Pelvi s W contrast IV CT ABD/PEL W IVCON Radiology Routine Ovarian cancer, bilateral (HCC) 02/01/2024 9:45 AM T [facility] End: 03-27-2026 CT Abdomen and Pelvis W contrast IV CT ABD/PEL W IVCON Radiology Routine Ovarian cancer, bilateral (HCC) 1 Occurrences starting 02/25/2025 until 03/27/2026 [facility] Work Phone: Comment on above: 1 Occurrences starti ng 02/25/2025 until 03/27/2026 CT Abdomen and Pelvi s W contrast IV CT ABD/PEL W IVCON Radiology Routine Ovarian cancer, bilateral (HCC) 03/05/2025 11:23 AM EDT [facility] Work Phone: End: 10-15-2024 CT Chest W contrast IV CT CHEST W IVCON Radiology Routine Ovarian cancer on left (HCC) 1 Occurrences starting 09/16/2023 until 10/15/2024 [facility] Work Phone: Comment on above: 1 Occurrences starti ng 09/16/2023 until 10/15/2024 CT Chest W contrast IV CT CHEST W IVCON Radiology Routine Ovarian cancer on left (HCC) 10/04/2023 10:58 AM EDT [facility] Work Phone: End: 02-14-2025 CT Chest W contrast IV CT CHEST W IVCON Radiology Routine Ovarian cancer, bilateral (HCC) 1 Occurrences starting 01/16/2024 until 02/14/2025 [facility] Work Phone: Comment on above: 1 Occurrences starti ng 01/16/2024 until 02/14/2025 CT Chest W contrast IV CT CHEST W IVCON Radiology Routine Ovarian cancer, bilateral (HCC) 02/01/2024 9:45 AM EDT [facility] Work Phone: End: 03-27-2026 CT Chest W contrast IV CT CHEST W IVCON Radiology Routine Ovarian cancer, bilateral (HCC) 1 Occurrences starting 02/25/2025 until 03/27/2026 [facility] Comment on above: 1 Occurrences starti ng 02/25/2025 until 03/27/2026 CT Chest W contrast IV CT CHEST W IVCON Radiology Routine Ovarian cancer, bilateral (HCC) 03/05/2025 11:23 AM EDT [facility] Ferritin [Mass/volum e] in Serum or Plasma FERRITIN Lab Routine Anemia, unspecified type 03/21/2024 10:33 AM EDT [facility] Ferritin [Mass/volum e] in Serum or Plasma FERRITIN Lab Routine Microcytic anemia 03/08/2025 10:17 AM EDT [facility] Folate [Mass/volume] in Serum or Plasma FOLATE, SERUM Lab Routine Anemia, unspecified type 02/20/2025 9:27 AM EDT [facility] Work Phone: H&P for surgery H&P FOR SURGERY Procedures Routine Attention to colostomy (HCC) Ordered: 08/10/2024 [facility] Work Phone: Comment on above: Ordered: 08/10/2024 Iron and Iron bindin g capacity panel - Serum or Plasma IRON AND TIBC Lab Routine Anemia, unspecified type 03/21/2024 10:33 AM EDT [facility] Iron and Iron bindin g capacity panel - Serum or Plasma IRON AND TIBC Lab Routine Microcytic anemia 03/08/2025 10:17 AM EDT [facility] Work Phone: End: 03-15-2026 Magnesium [Mass/volume] in Serum or Plasma MAGNESIUM Lab Routine Ovarian cancer on left (HCC) 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) Once per month for 12 Occurrences starting 03/15/2025 until 03/15/2026 [facility] Comment on above: Once per month for 1 2 Occurrences starting 03/15/2025 until 03/15/2026 MISC SEND OUT TST 1 MISC SEND OU T TST 1 Lab Routine Ovarian cancer on left (HCC) 09/16/2023 10:08 AM EST [facility] Work Phone: Patient Education ED Abdominal P ain Unkn Cause Fem [facility] Work Phone: Patient referral [facility] Work Phone: REFERRAL FOR ADDITIO NAL BIOMARKER AND MOLECULAR TESTING REFERRAL FOR ADDITIONAL BIOMARKER AND MOLECULAR TESTING Lab Routine Ovarian cancer, bilateral (HCC) 03/16/2025 9:14 PM EDT [facility] Work Phone: End: 09-09-2025 RF Colon Views W barium contrast TX XR COLON SINGLE CONTRAST Radiology Routine Attention to colostomy (HCC) 1 Occurrences starting 08/10/2024 until 09/09/2025 [facility] Work Phone: Comment on above: 1 Occurrences starti ng 08/10/2024 until 09/09/2025 End: 08-15-2024 RF Colon Views W barium contrast TX [facility] Work Phone: Comment on above: 1 Occurrences starti ng 08/15/2024 until 08/15/2024 End: 03-15-2026 UA DIP B/O UA DIP B/O Lab Routine Ovarian cancer on left (HCC) 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) Once per month for 12 Occurrences starting 03/15/2025 until 03/15/2026 [facility] Work Phone: Comment on above: Once per month for 1 2 Occurrences starting 03/15/2025 until 03/15/2026 US Pelvis [facility] Pelvis transvaginal [facility] Immunizations Immunization Date Immunization Notes Care Provider Joanie guerin 06-07-2024 respiratory syncytia l virus (RSV) vaccine, unspecified formulation Lab/Port [facility] Work Phone: [facility] 05-22-2024 COVID-19 vaccine, ag e 12+ yr, bivalent (Movirtu) Estuardo Long RN [facility] 05-15-2024 influenza, high dose seasonal, preservative-free Mayte Gonzalez MATERIALS MANAGEMENT MANAGER.HOUSEKEEPING ASSISTANT Work Phone: [facility] 05-15-2024 influenza virus vaccine, unspecified formulation Mayte Gonzalez MATERIALS MANAGEMENT MANAGER.HOUSEKEEPING ASSISTANT Work Phone: [facility] 11-22-2019 zoster vaccine recombinant Hiram Ciroi DO Work Phone: [facility] 06-14-2019 zoster vaccine recombinant Hiram Masci DO Work Phone: [facility] 05-04-2019 influenza, high dose seasonal, preservative-free Hiram Ciroi DO Work Phone: [facility] 05-04-2019 influenza virus vaccine, unspecified formulation Hiram Masci DO Work Phone: [facility] 08-15-2008 tetanus toxoid, reduced diphtheria toxoid, and acellular pertussis vaccine, adsorbed Mark Kruse II, OD Work Phone: [facility] Work Phone: Payers Date Payer Category Payer Medicare (Managed Care) [employer] PPO Member Subscriber Plan / Payer (Effective 2024-Present) Name: Marielle Gasper J Relation to Subscriber: Self Name: Maritza Reedhleen Allyson Payer ID: [id number] ([facility]) Group ID: [id number] Type: PPO Address: [address] [place] [id number] 2024 Private Health Insurance EYE CAR E PLAN [facility] [place] Address: [address] [place] [address] [address] [place] [address] [id number] 07-25-2024 Unknown [employer]IE EL[employer]AS [employer]ESSA [employer] MEDICARE ADVANTAGE PPO [id number] 07/25/2024-Present [phone] [address] [place] [phone] PPO [id number] 07-25-2024 Medicare [id number] 07-20-2023 Self-pay [id number] 07-25-2019 Medicare [id number] 07-25-2019 Unknown [id number] 07-03-2016 Medicare [id number] 1950 Unknown [id number] Unknown [id number] Unknown [id number] Social History Date Type Detail Facility Start: 03-03-2016 End: 07-10-2023 Tobacco smoking status [facility] Unknown if ever smoked [facility] Start: 1950 Sex Assigned At Female W [facility] Start: 06-20-2018 End: 08-27-2024 Tobacco smoking status VAIS Ex-smoker [facility] Start: 07-25-1972 End: 07-25-1974 History of tobacco use Current smoker [facility] Start: 07-25-1972 End: 07-25-1974 History of tobacco use Cigarette Smoker [facility] Start: 06-20-2018 End: 08-27-2024 Tobacco use and exposure Smokeless tobacco non-user [facility] Start: 07-06-2022 End: 03-19-2024 Alcohol intake Current drinker of alcohol (finding) [facility] Start: 07-06-2022 End: 07-10-2023 Alcohol intake [facility] Work Phone: Start: 1950 Sex Assigned At Not on file C [facility] Start: 07-10-2023 End: 08-04-2023 Tobacco use panel [facility] Work Phone: Start: 06-25-2012 How hard is it for y ou to pay for the very basics like food, housing, medical care, and heating Not hard at all [facility] Work Phone: (I/We) worried whedodie er (my/our) food would run out before (I/we) got money to buy more. Never true [facility] Work Phone: In the past 12 month s, was there a time when you were not able to pay the mortgage or rent on time? No [facility] Work Phone: Start: 07-27-2023 Tobacco Comment Pt smoked an o cc cigarette for 2 approx years [facility] Start: 08-01-2023 Gender identity Identifies as female gender (finding) [facility] Start: 08-01-2023 Sexual orientation Heterosexual (fin marianna) [facility] Start: 04-19-2024 End: 03-15-2025 Alcoholic beverage intake Ex-drinker (finding) [facility] Start: 08-27-2024 Tobacco Comment Pt smoked an o cc cigarette for 1 approx years [facility] Medical Equipment Procedure Code Equipment Code Equipment Origin al Text Equipment Identifier Dates Cath [facility] Sl im Port 8fr - [id number] Start: 08-04-2023 Colostomy suppli es: - 1 box Coloplast Assura one piece drainable pouch # [id number] OR - 2 boxes Coloplast Providence wafer flat red #[id number] - 1 box Coloplast Providence drainable pouch red # [id number] - 1 box Small barrier rings # 7805 - 1 tube stomahesive paste # 2650 - 1 bottle stomahesive powder # 60940 - 1 box Coloplast Elastic Barrier strips # [id number] - 1 box skin barrier prep wipes - 1 box adhesive removal wipes Start: 07-19-2023 End: 10-07-2023 Comment on above: Colostomy supplies: - 1 box Coloplast Assura one piece drainable pouch # [id number] OR - 2 boxes Coloplast Providence wafer flat red #45524 - 1 box Coloplast Providence drainable pouch red # 12215 - 1 box Small barrier rings # 7805 - 1 tube stomahesive paste # 2650 - 1 bottle stomahesive powder # 82930 - 1 box Coloplast Elastic Barrier strips # [id number] - 1 box skin barrier prep wipes - 1 box adhesive removal wipes Functional Status Date Assessment Result Facility 09-06-2024 Are you deaf, or do you have serious difficulty hearing No 09/06/2024 10:07 AM Gage Frankel RN No [facility] 09-06-2024 Are you blind, or do you have serious difficulty seeing, even when wearing glasses No 09/06/2024 10:07 AM Gage Frankel, RN No [facility] 09-06-2024 Do you have serious difficulty walking or climbing stairs No 09/06/2024 10:07 AM Gage Frankel, RN No [facility] 09-06-2024 Do you have difficul ty dressing or bathing No 09/06/2024 10:07 AM Gage Frankel, RN No [facility] 09-06-2024 Because of a physica l, mental, or emotional condition, do you have difficulty doing errands alone such as visiting a physician's office or shopping No 09/06/2024 10:07 AM Gage Frankel, RN No [facility] 04-26-2024 Are you deaf, or do you have serious difficulty hearing No 04/26/2024 2:14 PM Soo Lazo RN No [facility] 04-26-2024 Are you blind, or do you have serious difficulty seeing, even when wearing glasses No 04/26/2024 2:14 PM Soo Lazo RN No [facility] 04-26-2024 Do you have serious difficulty walking or climbing stairs No 04/26/2024 2:14 PM Soo Laoz RN No [facility] 04-26-2024 Do you have difficul ty dressing or bathing No 04/26/2024 2:14 PM Soo Lazo, MARIA C No [facility] 04-26-2024 Because of a physica l, mental, or emotional condition, do you have difficulty doing errands alone such as visiting a physician's office or shopping No 04/26/2024 2:14 PM Soo Lazo RN No [facility] Mental Status Date Assessment Result Facility 09-06-2024 Because of a physica l, mental, or emotional condition, do you have serious difficulty concentrating, remembering, or making decisions No 09/06/2024 10:07 AM Gage Frankel, MARIA C No [facility] 04-26-2024 Because of a physica l, mental, or emotional condition, do you have serious difficulty concentrating, remembering, or making decisions No 04/26/2024 2:14 PM Soo Lazo, MARIA C No [facility] Clinical Notes 07-06-2022 to 05-04-2025 Telephone Encounter - Roselyn Pittman LPN - 04/03/2025 12:51 PM EDTTelephone Encounter - Hiram Mccoy DO - 04/03/2025 11:49 AM EDTTelephone Encounter - Roselyn Pittman LPN - 04/03/2025 12:51 PM EDT Note Date & Type Note Facility 05-04-2025 Note SARS-COV-2 (AGENT OF COVID-19) RNA: Not detected INFLUENZA A RNA: Not detected INFLUENZA B RNA: Not detected RESPIRATORY SYNCYTIAL VIRUS (RSV) RNA: Not detected [facility] Comment on above: Performed By: #### [id number] ####[facility]ORATORY[facility]IA [id number] [place] [address] [place] 05-01-2025 Note [facility] 04-29-2025 Note [facility] 04-24-2025 Note [facility] 04-17-2025 Note [facility] 04-03-2025 Miscellaneous Notes patient notified. Added labs to apt note. Pended. Roselyn Pittman LPN Her hemoglobin is stable. Check reticulocyte count, TSH, CRP and copper level when she is here for treatment next week. documented in this encounter [facility] 04-03-2025 Telephone encounter Note patient notified. Added labs to apt note. Pended. Roselyn Pittman LPN [facility] 04-03-2025 Telephone encounter Note Her hemoglobin is stable. Check reticulocyte count, TSH, CRP and copper level when she is here for treatment next week. [facility] 03-21-2025 Telephone encounter Note Called patient. Discussed instructions for use and patient was given Dr. Mccoy's response, stated understanding. Joy Bolaños RN [facility] 03-21-2025 Miscellaneous Notes Called patient. Discussed instructions for use and patient was given Dr. Mccoy's response, stated understanding. Joy Bolaños RN Keep Aloxi and use Compazine for 72 hours postchemotherapy. Rx for Compazine and Emla sent. Patient needs a refill on emla cream. Pended. Patient will be receiving Aloxi as a pre-med for D1. Patient has Zofran to take for nausea. Do we want to give her Compazine for the first 3 days or swap out Aloxi for Zofran? Thank you. Joy Bolaños RN documented in this encounter [facility] 03-20-2025 Telephone encounter Note Keep Aloxi and use Compazine for 72 hours postchemotherapy. Rx for Compazine and Emla sent. [facility] 03-20-2025 Telephone encounter Note SOCIAL WORK FOLLOW UP NOTE: [facility] Date of service: March 20, 2025 Gasper Allyson Reed is being seen for a follow up social work visit. Today's visit includes: patient TOPICS ADDRESSED: Pt referred to SW following chemo education. Pt is an established oncology pt beginning a new treatment. Pt declines any new needs requiring SW intervention. Pt did inquire about Advanced Directives reporting she is receiving alerts in MyChart that she needs to complete them. No other needs identified at this time. Advance Care Planning Goals of Care In this encounter: Advanced Directives already on file. Patient denies needing updates at this time. PLAN: Continue follow up as needed F/U APPOINTMENT: PRN Assigned SW listed in Care Team tab: Yes JUAN Solitario [facility] 03-20-2025 Miscellaneous Notes SOCIAL WORK FOLLOW UP NOTE: [facility] Date of service: March 20, 2025 Gasper Reed is being seen for a follow up social work visit. Today's visit includes: patient TOPICS ADDRESSED: Pt referred to SW following chemo education. Pt is an established oncology pt beginning a new treatment. Pt declines any new needs requiring SW intervention. Pt did inquire about Advanced Directives reporting she is receiving alerts in MyChart that she needs to complete them. No other needs identified at this time. Advance Care Planning Goals of Care In this encounter: Advanced Directives already on file. Patient denies needing updates at this time. PLAN: Continue follow up as needed F/U APPOINTMENT: PRN Assigned SW listed in Care Team tab: Yes JUAN Solitario documented in this encounter [facility] 03-20-2025 Note [facility] 03-20-2025 History of Present illness Narrative This visit was completed over the phone ONCOLOGY PATIENT EDUCATION NOTE TOPIC: Chemotherapy, Medications: Carboplatin/Gemzar/Avastin patient called today for education for treatment of Ovarian Cancer Anticipated/Scheduled start date: 04/10/25 READINESS TO LEARN: COGNITIVE ABILITY: Alert and oriented MOTIVATION TO LEARN: Interested FAMILY SUPPORT: High - Very involved in pt care INSTRUCTION PROVIDED TO: Patient and Daughter INSTRUCTION PROVIDED BY: Nurse Coordinator PATIENT LEARNS BEST BY: Multiple Methods FACTORS AFFECTING LEARNING: None PHYSICAL LIMITATIONS AFFECTING LEARNING: None LEARNING RESPONSE METHOD OF INSTRUCTION: Individual instruction Written instruction/Handouts Verbal instruction PATIENT/FAMILY RESPONSE: Verbalizes understanding of: CHEMOTHERAPY-Regimen, toxicity and side effects FOLLOW UP PLAN: Patient instructed to call with any further issues Recommend - Recommend continued instruction and follow up as directed Follow up phone call. Contact information given. SUPPLEMENTAL MATERIAL: Written material was provided at this visit with the following information: - Chemotherapy education was provided by a pharmacist NO - Side effect management information was provided/discussed including but not limited to: anemia, appetite changes, arthralgia, bowel habit changes, diet, electrolyte disturbances, fatigue, hair loss, infection, mouth hygiene, nausea/vomitting, neutropenia, rash, skin changes, taste changes, thrombocytopenia YES - Provided important phone numbers and contacts during and after hours. YES - Provided information on symptoms that require immediate assistance. YES - Provided Chemotherapy when to call handouts YES - Preventing infection. YES - Treatment schedule and confirmation of appointment times. YES - Available support groups. YES - The importance of contraception during the course of chemotherapy YES - Neutropenic fever protocol discussed with patient, which included the importance of reporting any fever of 100.4F (38.0C) or greater to the healthcare team as noted on the provided wallet card and/or magnet. YES Time Spent: 30 minutes REFERRAL (RECOMMENDATION): N/A Joy Bolaños RN documented in this encounter [facility] 03-20-2025 Telephone encounter Note Patient needs a refill on emla cream. Pended. Patient will be receiving Aloxi as a pre-med for D1. Patient has Zofran to take for nausea. Do we want to give her Compazine for the first 3 days or swap out Aloxi for Zofran? Thank you. Joy Bolaños RN [facility] 03-15-2025 Miscellaneous Notes 2 cycles entered Start email sent Schedule treatment (orders in [place]) about a week after next lab apt. Can be a straight back. Day 1 CBC CMP MG CA125 (for day 1 of every cycle) B/O urine dip every ezekiel Day 8 CBC OV with next cycle Chemo ed scheduled 03/20 Dorothea Buckley documented in this encounter [facility] 03-15-2025 Telephone encounter Note 2 cycles entered Start email sent [facility] Work Phone: 03-15-2025 Telephone encounter Note Met with patient and introduced myself. Patient was given a folder with chemocare information, office contact information, and additional chemotherapy resource handouts. Patient aware this nurse will review on scheduled appointment date. Joy Bolaños RN [facility] 03-15-2025 Miscellaneous Notes Met with patient and introduced myself. Patient was given a folder with chemocare information, office contact information, and additional chemotherapy resource handouts. Patient aware this nurse will review on scheduled appointment date. Joy Bolaños RN documented in this encounter [facility] 03-15-2025 Telephone encounter Note Schedule treatment (orders in [place]) about a week after next lab apt. Can be a straight back. 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 HPI: The patient is a 74-year-old female with a past medical history significant for hypertension and rheumatoid arthritis. Presented to the ED at [facility] on 07/10/2023 with complaints of nausea and vomiting that started approximately 24 hours before presentation. This was accompanied with diarrhea. She been having intermittent abdominal pain for a couple months. Approximate 10 pound weight loss. Evidently underwent colonoscopy in March that demonstrated a constricted colon. CT A/P 07/10/2023: LOWER THORAX: Normal. Lung bases are clear. No cardiomegaly. No pericardial effusion. ABDOMEN: LIVER: Stable 12 mm lesion within hepatic segment 7 and 14 mm lesion within hepatic segment 3 suggestive of hemangiomata. PANCREAS: Normal. No focal cystic or solid mass. SPLEEN: Normal. Normal size without focal cystic or solid mass. ADRENALS: Normal. No nodules. KIDNEYS AND URETERS: Normal. Normal renal size and position. No hydronephrosis. STOMACH AND BOWEL: Multiple dilated thick-walled small bowel loops noted within the lower abdomen. There is fluid distention of the ascending and transverse colon. Prominent wall thickening of the sigmoid colon. PELVIS: APPENDIX: Appendix is visualized and normal in appearance. BLADDER: Normal. REPRODUCTIVE: 4.8 cm left adnexal cystic mass has significantly increased in size from prior study raising possibility of underlying cystic ovarian neoplasm. ABDOMEN and PELVIS: INTRAPERITONEAL SPACE: Interval development of moderate volume ascites. No free air. BONES/JOINTS: No suspicious lytic or blastic abnormality. SOFT TISSUES: Normal. No discrete abdominal or pelvic wall hernia. VASCULATURE: Normal. Abdominal aorta is non-dilated. LYMPH NODES: Interval enlargement of the retroperitoneal lymph nodes adjacent to the aorta and inferior vena cava raising possibility of metastatic disease. IMPRESSION: 1. Interval enlargement of complex cystic left adnexal mass which may represent ovarian neoplasm. 2. Interval development of moderate volume ascites. 3. Multiple thick-walled loops of large and small bowel consistent with inflammatory bowel disease. 4. Enlarging retroperitoneal lymph nodes which may represent metastatic disease. She was transferred to [facility] for gynecologic oncology surgery. Underwent diagnostic laparoscopy with peritoneal biopsy along with transverse loop diverting colostomy on 07/15/2023. Patient was found to have carcinomatosis with diffuse disease on right and left diaphragm. There were dense adhesions between liver immediately lateral to the falciform and diaphragm. Tumor infiltration of the falciform and freddy hepatis was observed. Pelvis was not visualized due to multiple loops of small bowel that were adherent to the pelvis. There was a plaque of tumor overlying the bladder peritoneum. Unable to visualize ovarian masses due to small bowel adherent to the sigmoid colon. Diffuse thickening of the paracolic gutter peritoneum was observed. There was thickened omentum without obvious implants including supracolic omentum with decreased mobility of transverse colon. 1000 cc of murky green ascites was aspirated. Biopsies were obtained of the peritoneal implants. 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 See comment. Identical morphologic features are noted within the present, peritoneal specimen that are found within the recent abdominal fluid cytology specimen, [id number]. Confirmatory immunohistochemistry was performed on the cytology specimen supporting a diagnosis of serous carcinoma. Per initial consultation here: Appetite okay--small meals. Taking Zofran regularly. Small amount reflux--TUMS prn. Ostomy working well. Pain improved. Previous therapy: 1) Neoadjuvant chemotherapy with paclitaxel and carboplatin x3 cycles. 2) Exploratory laparotomy, lysis of adhesions, total abdominal hysterectomy, bilateral salpingo-oophorectomy with en block rectosigmoid resection, cystoscopy and temporary bilateral ureteral stents (urology) on 10/28/23. Pathology: A. Uterus, cervix with right fallopian tube and ovary, total abdominal hysterectomy with right salpingo-oophorectomy: -- Ovary: Involved by high-grade serous carcinoma, status post neoadjuvant chemotherapy, see comment and case summary. -- Fallopian tube: Involved by high-grade serous carcinoma, see comment. -- Endometrium: Atrophic endometrium. -- Myometrium: No significant histopathologic abnormalities. -- Serosa: Involved by high-grade serous carcinoma. -- Cervix: Outer part of the cervical stroma focally involved by carcinoma. -- Vessels with medial calcific sclerosis. B. Rectosigmoid colon and left ovary and fallopian tube, low anterior colon resection and left salpingo-oophorectomy: -- Ovary: Involved by high-grade serous carcinoma with adhesions to the colonic wall. -- Fallopian tube: No fallopian tube identified grossly or microscopically. -- Colon: High-grade serous carcinoma invades through muscularis propria into the submucosa, see comment. -- Metastatic carcinoma in two out of four lymph nodes (2 mi/4), biggest deposit 0.8 mm, see comment. -- Isolated tumor cells in one out of four lymph nodes (ITCs/1). -- Soft tissue attached to the lymph nodes involved by high-grade serous carcinoma. SPECIMEN Procedure Total hysterectomy and bilateral salpingo-oophorectomy Low anterior colon resection Specimen Integrity Right Ovary Integrity Capsule intact Specimen Integrity Left Ovary Integrity Capsule intact Specimen Integrity Right Fallopian Tube Integrity Serosa intact Uterus Integrity Intact TUMOR Tumor Site Bilateral ovaries Tumor Size Greatest Dimension (Centimeters): 5.2 cm Histologic Type High grade serous carcinoma Histologic Grade High grade Ovarian Surface Involvement Present, right and left Fallopian Tube Surface Involvement Present, right Other Tissue / Organ Involvement Right fallopian tube Pelvic peritoneum Sigmoid colon Peritoneal / Ascitic Fluid Involvement Not submitted / unknown Chemotherapy Response Score (CRS) Cannot be determined: No omentum submitted REGIONAL LYMPH NODES Regional Lymph Node Status Tumor present in regional lymph node(s) Number of Nodes with Metastasis Greater than 10 mm 0 Number of Nodes with Metastasis 10 mm or Less (excluding isolated tumor cells) 2 Lanny Site(s) with Tumor Pericolonic lymph nodes Size of Largest Lanny Metastatic Deposit At least: 0.8 mm Location of Largest Lanny Metastatic Deposit Pericolonic lymph nodes Number of Lymph Nodes Examined 4 Lanny Site(s) Examined Pericolonic lymph nodes pTNM CLASSIFICATION (AJCC 8th Edition) Reporting of pT, pN, and (when applicable) pM categories is based on information available to the pathologist at the time the report is issued. As per the AJCC (Chapter 1, 8th Ed.) it is the managing physician s responsibility to establish the final pathologic stage based upon all pertinent information, including but potentially not limited to this pathology report. Modified Classification y pT Category pT3a pN Category pN1a FIGO STAGE FIGO Stage IIIA1(i) She required a platelet transfusion after cycle #5 for a platelet rafa count of 14,000. Current therapy: 1) Lynparza. Started early March 2024. Presents for ongoing oncologic management. Interim history: Home BP--systolic remain under 130 mmHg. PAST MEDICAL HISTORY Diagnosis Date Anemia in chronic kidney disease (CKD) 02/09/2025 Arthritis Attention to colostomy (HCC) Cataract Colostomy in place (HCC) ovarian cancer, tumor leaning against bowel Essential hypertension, benign 07/25/1994 Generalized anxiety disorder Iron malabsorption (HCC) 02/09/2025 Nausea and vomiting with chemotherapy and anesthesia Ovarian cancer on left (HCC) PONV (postoperative nausea and vomiting) PAST SURGICAL HISTORY Procedure Laterality Date COLOSTOMY 07/15/2023 transverse loop diverting COLOSTOMY 04/2024 partial colon resection L'SCOPE DX W/WO BRUSHINGS/WASHINGS 07/15/2023 with peritoneal biopsy LAPAROSCOPIC OMENTECTOMY 10/28/2023 LIG/TRNSXJ FLP TUBE ABDL/VAG APPR UNI/BI 07/25/1981 Tubal ligation TONSILLECTOMY & ADENOIDECTOMY <AGE 12 07/25/1962 TOTAL ABDOM HYSTERECTOMY 10/28/2023 TOTAL ABDOMINAL HYSTERECT W/WO RMVL TUBE OVARY 10/28/2023 ALLERGIES Allergen Reactions Erythromycin Diarrhea, GI Upset Abdominal cramping Penicillins Unknown Current Outpatient Medications Medication Sig ondansetron (ZOFRAN) 8 mg tablet Take 1 tablet by mouth every 8 hours as needed for nausea/vomiting. magnesium oxide 200 mg magnesium tab Take 1 tablet by mouth as needed. pantoprazole DR (PROTONIX) 40 mg tablet TAKE 1 TABLET BY MOUTH EVERY DAY olaparib (LYNPARZA) 100 mg tablet Take 2 tablets (200 mg) by mouth two times a day. lisinopril-hydroCHLOROthiazide (ZESTORETIC) 20-12.5 mg per tablet Take 1 tablet by mouth two times a day. vitamin b complex capsule Take 1 capsule by mouth once daily. oxybutynin ER (DITROPAN XL) 10 mg 24 hr tablet Take 15 mg by mouth once daily. calcium carbonate (CALCIUM 600 ORAL) Take 1 tablet by mouth once daily. No current facility-administered medications for this visit. Social History Tobacco Use Smoking status: Former Types: Cigarettes Smokeless tobacco: Never Tobacco comments: Pt smoked an occ cigarette for 1 approx years Vaping Use Vaping status: Never Used Substance Use Topics Alcohol use: Not Currently Alcohol/week: 2.0 standard drinks of alcohol Types: 2 Glasses of Wine (5oz) per week Drug use: No Family history: Father-hypertension Maternal aunt--Breast cancer in her 60s. PGM--Breast cancer in her 80s. Mother-- of metastatic cancer at age 80. Sister--Larynx cancer. ROS: Constitutional: No fever. No drenching night sweats. Neuro: No recent PERAZA, vertigo, dizziness or imbalance. HEENT: No recent change in voice, vision or hearing. Resp: No cough, wheeze of hemoptysis. No shortness of breath at rest. CVS: No exertional chest pain, PND or orthopnea. No extremity swelling/edema. No symptoms of claudication. No painful or tender varicose veins. GI: See above. : No dysuria or gross hematuria. No symptoms of bladder outlet obstruction. Endo: No hot flashes. No polyuria or polydipsia. No heat or cold intolerance. Musculoskeletal: Diagnosed with RA 2015. Hip pain. Controlled with Plaquenil. Derm: No current rash. No history of jaundice. No diffuse pruritis. Heme: No unusual bleeding and unexplained bruising. Psych: Normal mood. PHYSICAL EXAM: Vitals: Blood pressure 184/92, pulse 88, temperature 36.6 C (97.8 F), temperature source Temporal, weight 50.6 kg (111 lb 8 oz), SpO2 98%. Well-appearing and in no acute distress. EYES: Sclerae are anicteric bilaterally. LYMPHATIC: There is no palpable cervical, supraclavicular, axillary adenopathy. RESPIRATORY: Inspiratory breath sounds are of normal intensity in all dominguez. No rales, wheezes or rhonchi. Expiratory phase is normal. CARDIOVASCULAR: Rhythm is regular. ABDOMEN: The abdomen is nondistended. Ostomy appears healthy. SKIN: No jaundice. 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 -Presented with partial large bowel obstruction status post transverse loop diverting colostomy. Not able to undergo upfront debulking surgery. -Tolerated carboplatin and paclitaxel very well overall. 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 -White coat HTN. -Reviewed CTs. PD. -Recommended gemcitabine, carboplatin and bevacizumab. -I discussed the rationale, logistics, potential risks (including but not limited to fatigue, cytopenias, rash, nausea and vomiting, diarrhea, HUS, pneumonitis, infusion reaction, hypertension, bowel perforation, proteinuria and the small potential for as a consequence of severe toxicity/complications of therapy), benefits and alternatives, as well as the personnel involved in the administration of gemcitabine, carboplatin and bevacizumab. I answered her and her family's questions in detail and she verbalized understanding and agreed with the recommended therapy. Please see the electronic consent document for details of doses and schedule. Plan: - Stop Lynparza. - Recheck CBC on Tuesday. - Plan to begin therapy week after next. - CBC/CMP/Mg/CA125 day 1 and CBC day 8. Portions of this documentation were copied and pasted from my previous office visit note dated 02/08/2025 in order to provide a cohesive continuity of the history. The note has been reviewed and edited and updated as necessary. Hiram Mccoy DO documented in this encounter [facility] 03-15-2025 Note [facility] 03-13-2025 Telephone encounter Note Spoke with patient and scheduled 03/15 @ 10:00 Pham Isaac [facility] 03-13-2025 Miscellaneous Notes Spoke with patient and scheduled 03/15 @ 10:00 Pham Isaac Spoke with pt. Informed of ct results. PSS please contact pt. To get scheduled for appt. To discuss treatment plan. Pt. Voiced understanding. Kelsy Storm LPN' CT scan unfortunately shows cancer is recurring. Need to see her for office visit to discuss treatment plan. Hiram Mccoy DO documented in this encounter [facility] 03-13-2025 Telephone encounter Note Spoke with pt. Informed of ct results. PSS please contact pt. To get scheduled for appt. To discuss treatment plan. Pt. Voiced understanding. Kelsy Storm LPN' [facility] 03-13-[address] scan unfortunately shows cancer is recurring. Need to see her for office visit to discuss treatment plan. Hiram Mccoy DO [facility] 03-11-2025 Telephone encounter Note Spoke with pt. Informed her anemia is from her Lynparza, instructed to decrease to 200 mg once daily, recheck CBC poss. Transfusion in 1 week. PSS please put on lab port amira. 03/18 @ 11:30 CBC/poss tx . Pt. Is Aware of date and time Kelsy Storm LPN [facility] 03-11-2025 Miscellaneous Notes Spoke with pt. Informed her anemia is from her Lynparza, instructed to decrease to 200 mg once daily, recheck CBC poss. Transfusion in 1 week. PSS please put on lab port amira. 03/18 @ 11:30 CBC/poss tx . Pt. Is Aware of date and time Kelsy Storm LPN Her iron levels are okay. Anemia is from Lynparza. Decrease to 200 mg once daily. Recheck CBC/poss transfusion in a week. Hiram Mccoy DO Scheduled lab studies 03/08 Port Schedule Pt aware. Please make a 10am lab apt for her 03/08/25 for iron studies. Roselyn Pittman LPN I would like her to have repeat iron studies. Orders filed. She is more anemic than previously. Hiram Mccoy DO documented in this encounter [facility] 03-10-2025 Telephone encounter Note Her iron levels are okay. Anemia is from Lynparza. Decrease to 200 mg once daily. Recheck CBC/poss transfusion in a week. Hiram Mccoy DO [facility] 03-08-2025 Note [facility] 03-08-2025 History of Present illness Narrative Patient is here for IVAD port flush/blood draw per [facility] [place] protocol. IVAD is located in right upper chest. Site cleansed with Chloraprep IVAD accessed with a #20 gauge 3/4 non-coring Gripper needle Flush with 5cc's Normal Saline. Blood Return: Good. 10 cc's blood aspirated and discarded. Blood drawn for Iron studies. Flushed with: 20 ml Normal Saline. Non-coring needle removed. Paper tape applied to puncture site. Site negative for redness, edema or tenderness. Patient tolerated procedure well. documented in this encounter [facility] 03-07-2025 Telephone encounter Note Scheduled lab studies 03/08 Port Schedule [facility] 03-07-2025 Telephone encounter Note Pt aware. Please make a 10am lab apt for her 03/08/25 for iron studies. Roselyn Pittman LPN [facility] 03-07-2025 Telephone encounter Note I would like her to have repeat iron studies. Orders filed. She is more anemic than previously. Hiram Mccoy DO [facility] 03-07-2025 Note [facility] 03-07-2025 History of Present illness Narrative Patient is here for IVAD port flush/blood draw per [facility] [place] protocol. IVAD is located in right upper chest. Site cleansed with Chloraprep IVAD accessed with a #20 gauge 3/4 non-coring Gripper needle Flush with 5cc's Normal Saline. Blood Return: Good. 10 cc's blood aspirated and discarded. Blood drawn for CBC. Flushed with: 20 ml Normal Saline. Non-coring needle removed. Paper tape applied to puncture site. Site negative for redness, edema or tenderness. Patient tolerated procedure well. documented in this encounter [facility] 03-05-2025 History of Present illness Narrative Radiology Service Progress Note PATIENT NAME: Gasper Reed DATE OF SERVICE: March 05, 2025 TIME: 1:49 PM PATIENT IDENTITY VERIFICATION COMPLETED USING TWO (2) IDENTIFIERS: Name and Date of confirmed by patient verbally. FALL SCREENING: Has the patient had 2 falls in the last year or 1 fall with injury or currently using an Ambulatory Assistive Device (Walker, Cane, Wheelchair, Crutches, etc.)? No PATIENT GENDER DATA: Assigned female at . status: : No status: NO. PATIENT RELEVANT IMPLANT DATA REVIEWED: Yes PATIENT PRESENTS WITH AN IMPLANTABLE OR ATTACHED HEAD RIGGER: No RADIOLOGY DEPARTMENT: CT; Exam(s) Completed: Chest Abdomen Pelvis PERIPHERAL IV DATA: power port accessed by hemoc SIGNED BY: RT Lexx(R) March 05, 2025 1:49 PM documented in this encounter [facility] 03-05-2025 Note [facility] 02-27-2025 Note HNO ID: [id number] Author: MAYTE GONZALEZ APRN.HOUSEKEEPING ASSISTANT Service: ? 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 Doing really well. Great appetite, no N/V, had some loose stool few weeks ago but realized it was due to the magnesium supplement she was taking and improved with a change. No constipation. No urinary symptoms. no abdominal pain. No VB. Tolerating olaparib well. Some fatigue but improved with recent iv fe infusions ROS: 14 point ROS negative unless indicated in above HPI. Oncologic history: 07/15/23: Diagnostic laparoscopy - extensive infiltration into Ball's pouch, freddy hepatis, dense scarring between liver and diaphragm due to disease infiltration. Debulking aborted. Transverse loop colostomy created. 08/09/23: C1D1 carboplatin/paclitaxel 08/30/23: C2D1 09/20/23: C3D1 10/28/23: Interval debulking surgery. Ex-lap, enterolysis, modified posterior exenterative procedure including radical hysterectomy, BSO, en bloc resection of rectosigmoid colon, bilateral temporary stents (urology). No residual disease. 01/23/24: C6D1 carboplatin/paclitaxel. 02/01/24: Completion CT MELISSA. 03/2024: olaparib started 04/25/2024: colorectal resection biopsy of omentum 09/04/2024: Reversal of transverse loop colostomy PE: EGOG PS 1 BP 168/73 (BP Site: Right Arm, BP Position: Sitting, BP Cuff Size: Regular Adult) Pulse 77 Temp 36.7 ?C (98.1 ?F) (Oral) Wt 51.3 kg (113 lb) SpO2 100% BMI 20.67 kg/m? Gen: well-appearing, NAD, here with her daughter Lungs: unlabored breathing on Ra Abdomen: soft, Nt , no masses, no hernias Pelvic: no external lesion, no pelvic masses, no groin adenopathy, speculum inserted with surgically absent cervix, intact cuff, bimanual confirms smooth and intact cuff, no masses or nodularity , no pelvic, Masses Rectal: no masses Extremities: no edema The sensitive examination was discussed with the Patient or Patient's Authorized Apparel Sales Associate. As applicable, any other physician, advance practice provider, medical student, or other health professional student that will be observing or involved in the sensitive examination for educational or training purposes was discussed with the Patient or Authorized Apparel Sales Associate. The Patient or Authorized Apparel Sales Associate has agreed to proceed with the sensitive examination. 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 Ovarian/fallopian tube cancer: - Ca-125 increased 30>>46 repeat 2 weeks later 47 -CT ordered by Dr Mccoy 03/05/2025 MELISSA based on exam or symptoms - Compliant and tolerating olaparib. Dr. Mccoy manages. . - RTC in [address] normal sooner to see Dr Partida to discuss plan if CT abnormal BRIP1 mutation: - Daughter tested negative - Son aware but has not tested yet Mayte Gonzalez, MATERIALS MANAGEMENT MANAGER.HOUSEKEEPING ASSISTANT Some elements copied from previous notes , including the physical exam completed in entirety today, have been updated where appropriate. All reflect current medical decision making from today, Medical Decision Making: Problems: Moderate: 1+ chronic illnesses with change Data: Unique source(s) for external note(s) reviewed: 3+ Unique test result(s) reviewed: 3+ Medical Decision Making Level: 4 - Moderate [facility] 02-25-2025 Telephone encounter Note Spoke with patient and scheduled Pham Isaac [facility] 02-25-2025 Miscellaneous Notes Spoke with patient and scheduled Pham Isaac Thank you. Orders filed. Spoke with pt. Informed her CA125 is mildly elevated. Recommend CT C/A/P with contrast (1 hour hydration pre or post CT) when able. Pt. Voiced understanding. PSS please reach out to pt. To get ct scans and hydration scheduled. Dr. Mccoy please sign orders Kelsy Storm LPN Her CA125 is mildly elevated. Recommend CT C/A/P with contrast (1 hour hydration pre or post CT) when able. Please pend CT orders. Hiram Mccoy DO documented in this encounter [facility] 02-25-2025 Telephone encounter Note Thank you. Orders filed. [facility] 02-25-2025 Telephone encounter Note Spoke with pt. Informed her CA125 is mildly elevated. Recommend CT C/A/P with contrast (1 hour hydration pre or post CT) when able. Pt. Voiced understanding. PSS please reach out to pt. To get ct scans and hydration scheduled. Dr. Mccoy please sign orders Kelsy Storm LPN [facility] 02-23-2025 Telephone encounter Note Her CA125 is mildly elevated. Recommend CT C/A/P with contrast (1 hour hydration pre or post CT) when able. Please pend CT orders. Hiram Mccoy DO [facility] 02-15-2025 History of Present illness Narrative [facility] Refill Assessment Medication(s): Lynparza Patient's current medication list and adherence status to current therapy were reviewed by Specialty Pharmacy clinical pharmacist to identify any new drug interactions or non-compliance to therapy. Therapy continues to be appropriate for disease, patient response, and medical condition. Verification of therapeutic benefit and effectiveness with current therapy was completed. Adverse events, barriers in adherence, and side effects were assessed and addressed if applicable. Will proceed with refill with no changes in therapy - patient progressing towards achieving therapeutic goals based on medication-specific laboratory parameters, disease state markers and outcomes. Office/provider notes have been reviewed prior to dispensing the medication. 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 Patient confirmed: Yes Med/dose confirmed: Yes Supplies needed: No supplies needed Missed doses: No Estimated days supply on hand: 10 Copay amount: 0 Payment confirmed: Yes Delivery method: FedEx Signature required: No Delivery address: [address] [place] [address] Delivery date: 02/21/25 Questions or concerns for the pharmacist?: No Did you have any side effects believed to be related to this medication, that resulted in hospitalization?: No Current Outpatient Medications on File Prior to Visit Medication Sig ondansetron (ZOFRAN) 8 mg tablet Take 1 tablet by mouth every 8 hours as needed for nausea/vomiting. magnesium oxide 200 mg magnesium tab Take 1 tablet by mouth as needed. pantoprazole DR (PROTONIX) 40 mg tablet TAKE 1 TABLET BY MOUTH EVERY DAY olaparib (LYNPARZA) 100 mg tablet Take 2 tablets (200 mg) by mouth two times a day. lisinopril-hydroCHLOROthiazide (ZESTORETIC) 20-12.5 mg per tablet Take 1 tablet by mouth two times a day. vitamin b complex capsule Take 1 capsule by mouth once daily. oxybutynin ER (DITROPAN XL) 10 mg 24 hr tablet Take 15 mg by mouth once daily. calcium carbonate (CALCIUM 600 ORAL) Take 1 tablet by mouth once daily. No current facility-administered medications on file prior to visit. 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 Administration: Administer approximately every 12 hours with or without food. Swallow tablets whole - Nausea and vomiting were reported more frequently when olaparib was administered in a fasted state. Administering olaparib after a small meal or snack may help alleviate potential nausea and vomiting - Avoid grapefruit, grapefruit juice, [place] oranges, or [place] orange juice Warnings: - Hypersensitivity - Pulmonary toxicity - Secondary malignancy - Thromboembolic events Side Effects: include but are not limited to - Abdominal pain - Constipation/diarrhea - Nausea/Vomiting - Anemia - Fatigue - PERAZA - Myalgia Emetic potential: Moderate to high emetic risk (>30% frequency of emesis) - NCCN. Antiemetic is recommended. Zofran is on medication list Monitoring: - CBC at baseline and monthly thereafter, or as clinically indicated - Renal function - Signs/symptoms of venous thrombosis, pulmonary embolism, and pneumonitis - Adherence Drug-Drug Interactions: none Baseline: - CrCl 36 mL/min - Hgb 9.3 - Plt 137 - ANC2.81 Est. Tx Plan Start Date: No information available Estimated Start Date Info: Per Dr. Mccoy's discretion Est. Estimated Treatment Duration: Until disease progression or unacceptable toxicity Loretta Chao documented in this encounter [facility] 02-15-2025 Note [facility] 02-15-2025 Note [facility] 02-15-2025 Telephone encounter Note Lab/port added to treatment appointment [facility] Work Phone: 02-15-2025 Miscellaneous Notes Lab/port added to treatment appointment pss please schedule lab prior to infusion on 02/20. I will notify pt. Roselyn Pittman LPN CA-125 increased some. Please recheck when here for iron sucrose on 02/20. Hiram Mccoy DO documented in this encounter [facility] 02-15-2025 Telephone encounter Note pss please schedule lab prior to infusion on 02/20. I will notify pt. Roselyn Pittman LPN [facility] 02-15-2025 Telephone encounter Note CA-125 increased some. Please recheck when here for iron sucrose on 02/20. Hiram Mccoy DO [facility] 02-08-2025 Note [facility] 02-08-2025 History of Present illness Narrative Oncologic problem(s): 1) Serous carcinoma of the left ovary. HPI: The patient is a 74-year-old female with a past medical history significant for hypertension and rheumatoid arthritis. Presented to the ED at [facility] on 07/10/2023 with complaints of nausea and vomiting that started approximately 24 hours before presentation. This was accompanied with diarrhea. She been having intermittent abdominal pain for a couple months. Approximate 10 pound weight loss. Evidently underwent colonoscopy in March that demonstrated a constricted colon. CT A/P 07/10/2023: LOWER THORAX: Normal. Lung bases are clear. No cardiomegaly. No pericardial effusion. ABDOMEN: LIVER: Stable 12 mm lesion within hepatic segment 7 and 14 mm lesion within hepatic segment 3 suggestive of hemangiomata. PANCREAS: Normal. No focal cystic or solid mass. SPLEEN: Normal. Normal size without focal cystic or solid mass. ADRENALS: Normal. No nodules. KIDNEYS AND URETERS: Normal. Normal renal size and position. No hydronephrosis. STOMACH AND BOWEL: Multiple dilated thick-walled small bowel loops noted within the lower abdomen. There is fluid distention of the ascending and transverse colon. Prominent wall thickening of the sigmoid colon. PELVIS: APPENDIX: Appendix is visualized and normal in appearance. BLADDER: Normal. REPRODUCTIVE: 4.8 cm left adnexal cystic mass has significantly increased in size from prior study raising possibility of underlying cystic ovarian neoplasm. ABDOMEN and PELVIS: INTRAPERITONEAL SPACE: Interval development of moderate volume ascites. No free air. BONES/JOINTS: No suspicious lytic or blastic abnormality. SOFT TISSUES: Normal. No discrete abdominal or pelvic wall hernia. VASCULATURE: Normal. Abdominal aorta is non-dilated. LYMPH NODES: Interval enlargement of the retroperitoneal lymph nodes adjacent to the aorta and inferior vena cava raising possibility of metastatic disease. IMPRESSION: 1. Interval enlargement of complex cystic left adnexal mass which may represent ovarian neoplasm. 2. Interval development of moderate volume ascites. 3. Multiple thick-walled loops of large and small bowel consistent with inflammatory bowel disease. 4. Enlarging retroperitoneal lymph nodes which may represent metastatic disease. She was transferred to [facility] for gynecologic oncology surgery. Underwent diagnostic laparoscopy with peritoneal biopsy along with transverse loop diverting colostomy on 07/15/2023. Patient was found to have carcinomatosis with diffuse disease on right and left diaphragm. There were dense adhesions between liver immediately lateral to the falciform and diaphragm. Tumor infiltration of the falciform and freddy hepatis was observed. Pelvis was not visualized due to multiple loops of small bowel that were adherent to the pelvis. There was a plaque of tumor overlying the bladder peritoneum. Unable to visualize ovarian masses due to small bowel adherent to the sigmoid colon. Diffuse thickening of the paracolic gutter peritoneum was observed. There was thickened omentum without obvious implants including supracolic omentum with decreased mobility of transverse colon. 1000 cc of murky green ascites was aspirated. Biopsies were obtained of the peritoneal implants. 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 See comment. Identical morphologic features are noted within the present, peritoneal specimen that are found within the recent abdominal fluid cytology specimen, [id number]. Confirmatory immunohistochemistry was performed on the cytology specimen supporting a diagnosis of serous carcinoma. Per initial consultation here: Appetite okay--small meals. Taking Zofran regularly. Small amount reflux--TUMS prn. Ostomy working well. Pain improved. Previous therapy: 1) Neoadjuvant chemotherapy with paclitaxel and carboplatin x3 cycles. 2) Exploratory laparotomy, lysis of adhesions, total abdominal hysterectomy, bilateral salpingo-oophorectomy with en block rectosigmoid resection, cystoscopy and temporary bilateral ureteral stents (urology) on 10/28/23. Pathology: A. Uterus, cervix with right fallopian tube and ovary, total abdominal hysterectomy with right salpingo-oophorectomy: -- Ovary: Involved by high-grade serous carcinoma, status post neoadjuvant chemotherapy, see comment and case summary. -- Fallopian tube: Involved by high-grade serous carcinoma, see comment. -- Endometrium: Atrophic endometrium. -- Myometrium: No significant histopathologic abnormalities. -- Serosa: Involved by high-grade serous carcinoma. -- Cervix: Outer part of the cervical stroma focally involved by carcinoma. -- Vessels with medial calcific sclerosis. B. Rectosigmoid colon and left ovary and fallopian tube, low anterior colon resection and left salpingo-oophorectomy: -- Ovary: Involved by high-grade serous carcinoma with adhesions to the colonic wall. -- Fallopian tube: No fallopian tube identified grossly or microscopically. -- Colon: High-grade serous carcinoma invades through muscularis propria into the submucosa, see comment. -- Metastatic carcinoma in two out of four lymph nodes (2 mi/4), biggest deposit 0.8 mm, see comment. -- Isolated tumor cells in one out of four lymph nodes (ITCs/1). -- Soft tissue attached to the lymph nodes involved by high-grade serous carcinoma. SPECIMEN Procedure Total hysterectomy and bilateral salpingo-oophorectomy Low anterior colon resection Specimen Integrity Right Ovary Integrity Capsule intact Specimen Integrity Left Ovary Integrity Capsule intact Specimen Integrity Right Fallopian Tube Integrity Serosa intact Uterus Integrity Intact TUMOR Tumor Site Bilateral ovaries Tumor Size Greatest Dimension (Centimeters): 5.2 cm Histologic Type High grade serous carcinoma Histologic Grade High grade Ovarian Surface Involvement Present, right and left Fallopian Tube Surface Involvement Present, right Other Tissue / Organ Involvement Right fallopian tube Pelvic peritoneum Sigmoid colon Peritoneal / Ascitic Fluid Involvement Not submitted / unknown Chemotherapy Response Score (CRS) Cannot be determined: No omentum submitted REGIONAL LYMPH NODES Regional Lymph Node Status Tumor present in regional lymph node(s) Number of Nodes with Metastasis Greater than 10 mm 0 Number of Nodes with Metastasis 10 mm or Less (excluding isolated tumor cells) 2 Lanny Site(s) with Tumor Pericolonic lymph nodes Size of Largest Lanny Metastatic Deposit At least: 0.8 mm Location of Largest Lanny Metastatic Deposit Pericolonic lymph nodes Number of Lymph Nodes Examined 4 Lanny Site(s) Examined Pericolonic lymph nodes pTNM CLASSIFICATION (AJCC 8th Edition) Reporting of pT, pN, and (when applicable) pM categories is based on information available to the pathologist at the time the report is issued. As per the AJCC (Chapter 1, 8th Ed.) it is the managing physician s responsibility to establish the final pathologic stage based upon all pertinent information, including but potentially not limited to this pathology report. Modified Classification y pT Category pT3a pN Category pN1a FIGO STAGE FIGO Stage IIIA1(i) She required a platelet transfusion after cycle #5 for a platelet rafa count of 14,000. Current therapy: 1) Lynparza. Started early March 2024. Presents for ongoing oncologic management. Interim history: Was having leg cramps. Tried magnesium oxide? Helped cramps, but had diarrhea. Stopped magnesium supplement and bowels better. No abdominal pain. Appetite not robust but stable. Weight overall stable. Feels more fatigued in the heat. Home BP--systolic remain under 130 mmHg. PAST MEDICAL HISTORY Diagnosis Date Arthritis Attention to colostomy (HCC) Cataract Colostomy in place (HCC) ovarian cancer, tumor leaning against bowel Essential hypertension, benign 07/25/1994 Generalized anxiety disorder Nausea and vomiting with chemotherapy and anesthesia Ovarian cancer on left (HCC) PONV (postoperative nausea and vomiting) PAST SURGICAL HISTORY Procedure Laterality Date COLOSTOMY 07/15/2023 transverse loop diverting COLOSTOMY 04/2024 partial colon resection L'SCOPE DX W/WO BRUSHINGS/WASHINGS 07/15/2023 with peritoneal biopsy LAPAROSCOPIC OMENTECTOMY 10/28/2023 LIG/TRNSXJ FLP TUBE ABDL/VAG APPR UNI/BI 07/25/1981 Tubal ligation TONSILLECTOMY & ADENOIDECTOMY <AGE 12 07/25/1962 TOTAL ABDOM HYSTERECTOMY 10/28/2023 TOTAL ABDOMINAL HYSTERECT W/WO RMVL TUBE OVARY 10/28/2023 ALLERGIES Allergen Reactions Erythromycin Diarrhea, GI Upset Abdominal cramping Penicillins Unknown Current Outpatient Medications Medication Sig magnesium oxide 200 mg magnesium tab Take 1 tablet by mouth as needed. pantoprazole DR (PROTONIX) 40 mg tablet TAKE 1 TABLET BY MOUTH EVERY DAY olaparib (LYNPARZA) 100 mg tablet Take 2 tablets (200 mg) by mouth two times a day. lisinopril-hydroCHLOROthiazide (ZESTORETIC) 20-12.5 mg per tablet Take 1 tablet by mouth two times a day. ondansetron (ZOFRAN) 8 mg tablet Take 1 tablet by mouth every 8 hours as needed for nausea/vomiting. vitamin b complex capsule Take 1 capsule by mouth once daily. oxybutynin ER (DITROPAN XL) 10 mg 24 hr tablet Take 15 mg by mouth once daily. calcium carbonate (CALCIUM 600 ORAL) Take 1 tablet by mouth once daily. No current facility-administered medications for this visit. Social History Tobacco Use Smoking status: Former Types: Cigarettes Smokeless tobacco: Never Tobacco comments: Pt smoked an occ cigarette for 1 approx years Vaping Use Vaping status: Never Used Substance Use Topics Alcohol use: Not Currently Alcohol/week: 2.0 standard drinks of alcohol Types: 2 Glasses of Wine (5oz) per week Drug use: No Family history: Father-hypertension Maternal aunt--Breast cancer in her 60s. PGM--Breast cancer in her 80s. Mother-- of metastatic cancer at age 80. Sister--Larynx cancer. ROS: Constitutional: No fever. No drenching night sweats. Neuro: No recent PERAZA, vertigo, dizziness or imbalance. HEENT: No recent change in voice, vision or hearing. Resp: No cough, wheeze of hemoptysis. No shortness of breath at rest. CVS: No exertional chest pain, PND or orthopnea. No extremity swelling/edema. No symptoms of claudication. No painful or tender varicose veins. GI: See above. : No dysuria or gross hematuria. No symptoms of bladder outlet obstruction. Endo: No hot flashes. No polyuria or polydipsia. No heat or cold intolerance. Musculoskeletal: Diagnosed with RA 2014. Hip pain. Controlled with Plaquenil. Derm: No current rash. No history of jaundice. No diffuse pruritis. Heme: No unusual bleeding and unexplained bruising. Psych: Normal mood. PHYSICAL EXAM: Vitals: Blood pressure 177/81, pulse 77, temperature 36.7 C (98 F), temperature source Temporal, weight 51.5 kg (113 lb 8 oz), SpO2 100%. Well-appearing and in no acute distress. EYES: Sclerae are anicteric bilaterally. LYMPHATIC: There is no palpable cervical, supraclavicular, axillary adenopathy. RESPIRATORY: Inspiratory breath sounds are of normal intensity in all dominguez. No rales, wheezes or rhonchi. Expiratory phase is normal. CARDIOVASCULAR: Rhythm is regular. ABDOMEN: The abdomen is nondistended. Ostomy appears healthy. SKIN: No jaundice. 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 -Presented with partial large bowel obstruction status post transverse loop diverting colostomy. Not able to undergo upfront debulking surgery. -Tolerated carboplatin and paclitaxel very well overall. 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 -White coat HTN. -Tolerating Lynparza very well. -Discussed anemia may be from olaparib, but has mild CKD so may be low on iron. Discussed checking that and other hematinics. If okay, then consider decreasing olaparib to 200 mg am and 100 mg pm for a while. However, she is not very symptomatic from the anemia so the risk of lowering dose may not be justified. -Discussed plan for continued therapy and imaging as indicated by CA125 trend. Plan: -Check iron, ferritin, B12, MMA and serum folate. -Continue Lynparza current dose. -CBC monthly. -OV with CBC/CMP/CA125 in about 3 months. Portions of this documentation were copied and pasted from my previous office visit note dated 08/03/2024 in order to provide a cohesive continuity of the history. The note has been reviewed and edited and updated as necessary. Hiram Mccoy DO documented in this encounter [facility] 01-18-2025 History of Present illness Narrative [facility] Refill Assessment Medication(s): Lynparza Patient's current medication list and adherence status to current therapy were reviewed by Specialty Pharmacy clinical pharmacist to identify any new drug interactions or non-compliance to therapy. Therapy continues to be appropriate for disease, patient response, and medical condition. Verification of therapeutic benefit and effectiveness with current therapy was completed. Adverse events, barriers in adherence, and side effects were assessed and addressed if applicable. Will proceed with refill with no changes in therapy - patient progressing towards achieving therapeutic goals based on medication-specific laboratory parameters, disease state markers and outcomes. Office/provider notes have been reviewed prior to dispensing the medication. 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 Patient confirmed: Yes Med/dose confirmed: Yes Supplies needed: No supplies needed Missed doses: No Estimated days supply on hand: 8 Copay amount: 0 Payment confirmed: Yes Delivery method: FedEx Signature required: No Delivery address: [address] [place] [address] Delivery date: 01/22/25 Questions or concerns for the pharmacist?: No Did you have any side effects believed to be related to this medication, that resulted in hospitalization?: No Current Outpatient Medications on File Prior to Visit Medication Sig magnesium oxide 200 mg magnesium tab Take by mouth. pantoprazole DR (PROTONIX) 40 mg tablet TAKE 1 TABLET BY MOUTH EVERY DAY olaparib (LYNPARZA) 100 mg tablet Take 2 tablets (200 mg) by mouth two times a day. lisinopril-hydroCHLOROthiazide (ZESTORETIC) 20-12.5 mg per tablet Take 1 tablet by mouth two times a day. ondansetron (ZOFRAN) 8 mg tablet Take 1 tablet by mouth every 8 hours as needed for nausea/vomiting. vitamin b complex capsule Take 1 capsule by mouth once daily. oxybutynin ER (DITROPAN XL) 10 mg 24 hr tablet Take 15 mg by mouth once daily. (Patient taking differently: Take 20 mg by mouth once daily.) calcium carbonate (CALCIUM 600 ORAL) Take 1 tablet by mouth once daily. No current facility-administered medications on file prior to visit. 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 Administration: Administer approximately every 12 hours with or without food. Swallow tablets whole - Nausea and vomiting were reported more frequently when olaparib was administered in a fasted state. Administering olaparib after a small meal or snack may help alleviate potential nausea and vomiting - Avoid grapefruit, grapefruit juice, [place] oranges, or [place] orange juice Warnings: - Hypersensitivity - Pulmonary toxicity - Secondary malignancy - Thromboembolic events Side Effects: include but are not limited to - Abdominal pain - Constipation/diarrhea - Nausea/Vomiting - Anemia - Fatigue - PERAZA - Myalgia Emetic potential: Moderate to high emetic risk (>30% frequency of emesis) - NCCN. Antiemetic is recommended. Zofran is on medication list Monitoring: - CBC at baseline and monthly thereafter, or as clinically indicated - Renal function - Signs/symptoms of venous thrombosis, pulmonary embolism, and pneumonitis - Adherence Drug-Drug Interactions: none Baseline: - CrCl 36 mL/min - Hgb 9.3 - Plt 137 - ANC2.81 Est. Tx Plan Start Date: No information available Estimated Start Date Info: Per Dr. Mccoy's discretion Est. Estimated Treatment Duration: Until disease progression or unacceptable toxicity Jesenia Whiting documented in this encounter [facility] 01-18-2025 Note [facility] 12-18-2024 History of Present illness Narrative [facility] Refill Assessment Medication(s): Lynparza Patient's current medication list and adherence status to current therapy were reviewed by Specialty Pharmacy clinical pharmacist to identify any new drug interactions or non-compliance to therapy. Therapy continues to be appropriate for disease, patient response, and medical condition. Verification of therapeutic benefit and effectiveness with current therapy was completed. Adverse events, barriers in adherence, and side effects were assessed and addressed if applicable. Will proceed with refill with no changes in therapy - patient progressing towards achieving therapeutic goals based on medication-specific laboratory parameters, disease state markers and outcomes. Office/provider notes have been reviewed prior to dispensing the medication. 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 Patient confirmed: Yes Med/dose confirmed: Yes Supplies needed: No supplies needed Missed doses: No Estimated days supply on hand: 10 Copay amount: 0 Payment confirmed: Yes Delivery method: FedEx Signature required: No Delivery address: [address] [place] [address] Delivery date: 12/20/24 Questions or concerns for the pharmacist?: No Did you have any side effects believed to be related to this medication, that resulted in hospitalization?: No Current Outpatient Medications on File Prior to Visit Medication Sig magnesium oxide 200 mg magnesium tab Take by mouth. pantoprazole DR (PROTONIX) 40 mg tablet TAKE 1 TABLET BY MOUTH EVERY DAY olaparib (LYNPARZA) 100 mg tablet Take 2 tablets (200 mg) by mouth two times a day. lisinopril-hydroCHLOROthiazide (ZESTORETIC) 20-12.5 mg per tablet Take 1 tablet by mouth two times a day. ondansetron (ZOFRAN) 8 mg tablet Take 1 tablet by mouth every 8 hours as needed for nausea/vomiting. vitamin b complex capsule Take 1 capsule by mouth once daily. oxybutynin ER (DITROPAN XL) 10 mg 24 hr tablet Take 15 mg by mouth once daily. (Patient taking differently: Take 20 mg by mouth once daily.) calcium carbonate (CALCIUM 600 ORAL) Take 1 tablet by mouth once daily. No current facility-administered medications on file prior to visit. 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 Administration: Administer approximately every 12 hours with or without food. Swallow tablets whole - Nausea and vomiting were reported more frequently when olaparib was administered in a fasted state. Administering olaparib after a small meal or snack may help alleviate potential nausea and vomiting - Avoid grapefruit, grapefruit juice, [place] oranges, or [place] orange juice Warnings: - Hypersensitivity - Pulmonary toxicity - Secondary malignancy - Thromboembolic events Side Effects: include but are not limited to - Abdominal pain - Constipation/diarrhea - Nausea/Vomiting - Anemia - Fatigue - PERAZA - Myalgia Emetic potential: Moderate to high emetic risk (>30% frequency of emesis) - NCCN. Antiemetic is recommended. Zofran is on medication list Monitoring: - CBC at baseline and monthly thereafter, or as clinically indicated - Renal function - Signs/symptoms of venous thrombosis, pulmonary embolism, and pneumonitis - Adherence Drug-Drug Interactions: none Baseline: - CrCl 36 mL/min - Hgb 9.3 - Plt 137 - ANC2.81 Est. Tx Plan Start Date: No information available Estimated Start Date Info: Per Dr. Mccoy's discretion Est. Estimated Treatment Duration: Until disease progression or unacceptable toxicity Loretta Chao documented in this encounter [facility] 12-18-2024 Note [facility] 11-30-2024 Note HNO ID: [id number] Author: GUERRERO VILCHIS MD Service: ? 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 Doing really well. Feels great after colostomy reversal. Great appetite, no N/V, no concerns with bowel habits. Has some hip pain but no abdominal pain. No VB. Tolerating olaparib well. Some fatigue. ROS: 14 point ROS negative unless indicated in above HPI. Oncologic history: 07/15/23: Diagnostic laparoscopy - extensive infiltration into Ball's pouch, freddy hepatis, dense scarring between liver and diaphragm due to disease infiltration. Debulking aborted. Transverse loop colostomy created. 08/09/23: C1D1 carboplatin/paclitaxel 08/30/23: C2D1 09/20/23: C3D1 10/28/23: Interval debulking surgery. Ex-lap, enterolysis, modified posterior exenterative procedure including radical hysterectomy, BSO, en bloc resection of rectosigmoid colon, bilateral temporary stents (urology). No residual disease. 01/23/24: C6D1 carboplatin/paclitaxel. 02/01/24: Completion CT MELISSA. 03/2024: olaparib started 04/25/2024: colorectal resection biopsy of omentum 09/04/2024: Reversal of transverse loop colostomy PE: EGOG PS 1 BP 177/76 (BP Site: Right Arm, BP Position: Sitting, BP Cuff Size: Regular Adult) Pulse 65 Temp 36.7 ?C (98.1 ?F) (Oral) Wt 51.7 kg (114 lb) SpO2 100% BMI 20.85 kg/m? Gen: well-appearing, NAD, here with her daughter Lungs: unlabored breathing on Ra Abdomen: sort, Nt , no masses, stoma looks good Pelvic: no external lesion, no pelvic masses, no groin adenopathy, speculum inserted with surgically absent cervix, intact cuff, bimanual confirms smooth and intact cuff, no masses or nodularity Extremities: no edema The sensitive examination was discussed with the Patient or Patient's Authorized Apparel Sales Associate. As applicable, any other physician, advance practice provider, medical student, or other health professional student that will be observing or involved in the sensitive examination for educational or training purposes was discussed with the Patient or Authorized Apparel Sales Associate. The Patient or Authorized Apparel Sales Associate has agreed to proceed with the sensitive examination. 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 Ovarian/fallopian tube cancer: - Ca-125 stable. MELISSA based on exam. - Compliant and tolerating olaparib. Dr. Mccoy manages. - Reviewed CT if CA-125 climbs, change in exam or new symptom. - RTC in 3 months. 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 Doing really well. Feels great after colostomy reversal. Great appetite, no N/V, no concerns with bowel habits. Has some hip pain but no abdominal pain. No VB. Tolerating olaparib well. Some fatigue. ROS: 14 point ROS negative unless indicated in above HPI. Oncologic history: 07/15/23: Diagnostic laparoscopy - extensive infiltration into Ball's pouch, freddy hepatis, dense scarring between liver and diaphragm due to disease infiltration. Debulking aborted. Transverse loop colostomy created. 08/09/23: C1D1 carboplatin/paclitaxel 08/30/23: C2D1 09/20/23: C3D1 10/28/23: Interval debulking surgery. Ex-lap, enterolysis, modified posterior exenterative procedure including radical hysterectomy, BSO, en bloc resection of rectosigmoid colon, bilateral temporary stents (urology). No residual disease. 01/23/24: C6D1 carboplatin/paclitaxel. 02/01/24: Completion CT MELISSA. 03/2024: olaparib started 04/25/2024: colorectal resection biopsy of omentum 09/04/2024: Reversal of transverse loop colostomy PE: EGOG PS 1 BP 177/76 (BP Site: Right Arm, BP Position: Sitting, BP Cuff Size: Regular Adult) Pulse 65 Temp 36.7 C (98.1 F) (Oral) Wt 51.7 kg (114 lb) SpO2 100% BMI 20.85 kg/m Gen: well-appearing, NAD, here with her daughter Lungs: unlabored breathing on Ra Abdomen: sort, Nt , no masses, stoma looks good Pelvic: no external lesion, no pelvic masses, no groin adenopathy, speculum inserted with surgically absent cervix, intact cuff, bimanual confirms smooth and intact cuff, no masses or nodularity Extremities: no edema The sensitive examination was discussed with the Patient or Patient's Authorized Apparel Sales Associate. As applicable, any other physician, advance practice provider, medical student, or other health professional student that will be observing or involved in the sensitive examination for educational or training purposes was discussed with the Patient or Authorized Apparel Sales Associate. The Patient or Authorized Apparel Sales Associate has agreed to proceed with the sensitive examination. 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 Ovarian/fallopian tube cancer: - Ca-125 stable. MELISSA based on exam. - Compliant and tolerating olaparib. Dr. Mccoy manages. - Reviewed CT if CA-125 climbs, change in exam or new symptom. - RTC in 3 months. 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 Victorina Rebolledo LPN [facility] 11-05-2024 Miscellaneous Notes A copy of this note was faxed to [facility] Carlos Eduardo. Victorina Rebolledo LPN Attempted to contact [facility], they are closed on Tuesday and there is no fax number online. Will call on Tuesday. [phone]. Victorina Rebolledo LPN Please notify Dr. Kirkpatrick at [facility] that pt. may have her teeth cleaned. Thank you. Fadi Ramirez APRN.HOUSEKEEPING ASSISTANT documented in this encounter [facility] 11-02-2024 Telephone encounter Note Attempted to contact [facility], they are closed on Tuesday and there is no fax number online. Will call on Tuesday. [phone]. Victorina Rebolledo LPN [facility] 11-02-2024 Telephone encounter Note Please notify Dr. Kirkpatrick at [facility] that pt. may have her teeth cleaned. Thank you. Fadi Ramirez APRN.HOUSEKEEPING ASSISTANT [facility] Work Phone: 11-02-2024 Note [facility] 11-02-2024 History of Present illness Narrative Chief Complaint Patient presents with: Established Patient HPI: Gasper Reed is a 73 year old female who presents here today for follow up ovarian cancer. Per Dr. Mccoy's previous note: H/o hypertension and rheumatoid arthritis. Presented to the ED at [facility] on 07/10/2023 with complaints of nausea and vomiting that started approximately 24 hours before presentation. This was accompanied with diarrhea. She been having intermittent abdominal pain for a couple months. Approximate 10 pound weight loss. Evidently underwent colonoscopy in March that demonstrated a constricted colon. CT A/P 07/10/2023: LOWER THORAX: Normal. Lung bases are clear. No cardiomegaly. No pericardial effusion. ABDOMEN: LIVER: Stable 12 mm lesion within hepatic segment 7 and 14 mm lesion within hepatic segment 3 suggestive of hemangiomata. PANCREAS: Normal. No focal cystic or solid mass. SPLEEN: Normal. Normal size without focal cystic or solid mass. ADRENALS: Normal. No nodules. KIDNEYS AND URETERS: Normal. Normal renal size and position. No hydronephrosis. STOMACH AND BOWEL: Multiple dilated thick-walled small bowel loops noted within the lower abdomen. There is fluid distention of the ascending and transverse colon. Prominent wall thickening of the sigmoid colon. PELVIS: APPENDIX: Appendix is visualized and normal in appearance. BLADDER: Normal. REPRODUCTIVE: 4.8 cm left adnexal cystic mass has significantly increased in size from prior study raising possibility of underlying cystic ovarian neoplasm. ABDOMEN and PELVIS: INTRAPERITONEAL SPACE: Interval development of moderate volume ascites. No free air. BONES/JOINTS: No suspicious lytic or blastic abnormality. SOFT TISSUES: Normal. No discrete abdominal or pelvic wall hernia. VASCULATURE: Normal. Abdominal aorta is non-dilated. LYMPH NODES: Interval enlargement of the retroperitoneal lymph nodes adjacent to the aorta and inferior vena cava raising possibility of metastatic disease. IMPRESSION: 1. Interval enlargement of complex cystic left adnexal mass which may represent ovarian neoplasm. 2. Interval development of moderate volume ascites. 3. Multiple thick-walled loops of large and small bowel consistent with inflammatory bowel disease. 4. Enlarging retroperitoneal lymph nodes which may represent metastatic disease. She was transferred to [facility] for gynecologic oncology surgery. Underwent diagnostic laparoscopy with peritoneal biopsy along with transverse loop diverting colostomy on 07/15/2023. Patient was found to have carcinomatosis with diffuse disease on right and left diaphragm. There were dense adhesions between liver immediately lateral to the falciform and diaphragm. Tumor infiltration of the falciform and freddy hepatis was observed. Pelvis was not visualized due to multiple loops of small bowel that were adherent to the pelvis. There was a plaque of tumor overlying the bladder peritoneum. Unable to visualize ovarian masses due to small bowel adherent to the sigmoid colon. Diffuse thickening of the paracolic gutter peritoneum was observed. There was thickened omentum without obvious implants including supracolic omentum with decreased mobility of transverse colon. 1000 cc of murky green ascites was aspirated. Biopsies were obtained of the peritoneal implants. 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 See comment. Identical morphologic features are noted within the present, peritoneal specimen that are found within the recent abdominal fluid cytology specimen, [id number]. Confirmatory immunohistochemistry was performed on the cytology specimen supporting a diagnosis of serous carcinoma. Per initial consultation here: Appetite okay--small meals. Taking Zofran regularly. Small amount reflux--TUMS prn. Ostomy working well. Pain improved. Previous therapy: 1) Neoadjuvant chemotherapy with paclitaxel and carboplatin x3 cycles. 2) Exploratory laparotomy, lysis of adhesions, total abdominal hysterectomy, bilateral salpingo-oophorectomy with en block rectosigmoid resection, cystoscopy and temporary bilateral ureteral stents (urology) on 10/28/23. Pathology: A. Uterus, cervix with right fallopian tube and ovary, total abdominal hysterectomy with right salpingo-oophorectomy: -- Ovary: Involved by high-grade serous carcinoma, status post neoadjuvant chemotherapy, see comment and case summary. -- Fallopian tube: Involved by high-grade serous carcinoma, see comment. -- Endometrium: Atrophic endometrium. -- Myometrium: No significant histopathologic abnormalities. -- Serosa: Involved by high-grade serous carcinoma. -- Cervix: Outer part of the cervical stroma focally involved by carcinoma. -- Vessels with medial calcific sclerosis. B. Rectosigmoid colon and left ovary and fallopian tube, low anterior colon resection and left salpingo-oophorectomy: -- Ovary: Involved by high-grade serous carcinoma with adhesions to the colonic wall. -- Fallopian tube: No fallopian tube identified grossly or microscopically. -- Colon: High-grade serous carcinoma invades through muscularis propria into the submucosa, see comment. -- Metastatic carcinoma in two out of four lymph nodes (2 mi/4), biggest deposit 0.8 mm, see comment. -- Isolated tumor cells in one out of four lymph nodes (ITCs/1). -- Soft tissue attached to the lymph nodes involved by high-grade serous carcinoma. SPECIMEN Procedure Total hysterectomy and bilateral salpingo-oophorectomy Low anterior colon resection Specimen Integrity Right Ovary Integrity Capsule intact Specimen Integrity Left Ovary Integrity Capsule intact Specimen Integrity Right Fallopian Tube Integrity Serosa intact Uterus Integrity Intact TUMOR Tumor Site Bilateral ovaries Tumor Size Greatest Dimension (Centimeters): 5.2 cm Histologic Type High grade serous carcinoma Histologic Grade High grade Ovarian Surface Involvement Present, right and left Fallopian Tube Surface Involvement Present, right Other Tissue / Organ Involvement Right fallopian tube Pelvic peritoneum Sigmoid colon Peritoneal / Ascitic Fluid Involvement Not submitted / unknown Chemotherapy Response Score (CRS) Cannot be determined: No omentum submitted REGIONAL LYMPH NODES Regional Lymph Node Status Tumor present in regional lymph node(s) Number of Nodes with Metastasis Greater than 10 mm 0 Number of Nodes with Metastasis 10 mm or Less (excluding isolated tumor cells) 2 Lanny Site(s) with Tumor Pericolonic lymph nodes Size of Largest Lanny Metastatic Deposit At least: 0.8 mm Location of Largest Lanny Metastatic Deposit Pericolonic lymph nodes Number of Lymph Nodes Examined 4 Lanny Site(s) Examined Pericolonic lymph nodes pTNM CLASSIFICATION (AJCC 8th Edition) Reporting of pT, pN, and (when applicable) pM categories is based on information available to the pathologist at the time the report is issued. As per the AJCC (Chapter 1, 8th Ed.) it is the managing physician s responsibility to establish the final pathologic stage based upon all pertinent information, including but potentially not limited to this pathology report. Modified Classification y pT Category pT3a pN Category pN1a FIGO STAGE FIGO Stage IIIA1(i) She required a platelet transfusion after cycle #5 for a platelet rafa count of 14,000. Current therapy: 1) Lynparza. Started early March 2024. No new concerns today. Appetite:Good. Wt. stable. Energy level:Pretty good. Denies fevers or recent illness. Mouth:denies sores Resp:denies cough or sob Cardiac:denies chest pain/palpitations GI:denies abd pain, n/v, moving bowels regularly-ostomy reversed 09/04/24-no complications :denies dysuria/hematuria Extrem:denies new pain, +night time leg cramps Neuro:denies symptoms of neuropathy Skin:denies rashes Heme:denies bleeding The ROS is otherwise negative. Past medical history, appointments, medications, allergies reviewed. No changes. EXAM: BP 176/75 Pulse 87 Temp 36.6 C (97.8 F) (Temporal) Wt 52 kg (114 lb 10.2 oz) SpO2 96% BMI 20.97 kg/m APPEARANCE Well appearing, alert, in no acute distress, well-hydrated, well nourished. HEART RRR with normal S1 and S2, no murmurs LUNG clear to auscultation LYMPH NODES No cervical lymphadenopathy, No supraclavicular lymphadenopathy, and No axillary lymphadenopathy. ABDOMEN bowel sounds normoactive, soft, non-tender EXTREMITIES No edema NEURO Awake, alert and oriented x 3, Normal gait, and No involuntary motions. SKIN Skin color, texture, turgor normal, no suspicious rashes or lesions LABS: Latest Ref Rng 08/31/2024 09/06/2024 11/02/2024 WBC 3.70 - 11.00 k/uL 3.96 5.87 4.50 RBC 3.90 - 5.20 m/uL 2.42 (L) 2.44 (L) 2.54 (L) Hemoglobin 11.5 - 15.5 g/dL 9.3 (L) 9.3 (L) 9.6 (L) Hematocrit 36.0 - 46.0 % 27.0 (L) 27.3 (L) 28.0 (L) MCV 80.0 - 100.0 fL 111.6 (H) 111.9 (H) 110.2 (H) MCH 26.0 - 34.0 pg 38.4 (H) 38.1 (H) 37.8 (H) MCHC 30.5 - 36.0 g/dL 34.4 34.1 34.3 RDW-CV 11.5 - 15.0 % 14.5 15.0 14.6 Platelet Count 150 - 400 k/uL 158 164 144 (L) MPV 9.0 - 12.7 fL 10.5 10.5 10.7 Neut% % 69.6 70.9 Abs Neut (ANC) 1.45 - 7.50 k/uL 2.76 3.19 Lymph% % 15.4 18.7 Abs Lymph 1.00 - 4.00 k/uL 0.61 (L) 0.84 (L) [place]% % 10.9 7.6 Abs [place] <0.87 k/uL 0.43 0.34 Eosin% % 3.3 2.2 Abs Eosin <0.46 k/uL 0.13 0.10 Baso% % 0.5 0.4 Abs Baso <0.11 k/uL <0.03 <0.03 Immature Gran % % 0.3 0.2 IMMATURE GRANS (ABS) <0.10 k/uL <0.03 <0.03 NRBC /100 WBC 0.0 0.0 Absolute nRBC <0.01 k/uL <0.01 <0.01 <0.01 DTYPE Auto Auto CMP/CA125: Pending ASSESSMENT/PLAN: 1. Ovarian cancer on left (HCC) - ICD9: 183.0, ICD10: C56.2 (primary diagnosis) 2. 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 chemotherapy - ICD9: 285.3, E933.1, ICD10: D64.81, T45.1X5A Per Dr. Mccoy's previous note: Assessment: -Stage IIIC high-grade serous carcinoma of the left ovary. -Presented with partial large bowel obstruction status post transverse loop diverting colostomy. Not able to undergo upfront debulking surgery. -Tolerated carboplatin and paclitaxel very well overall. 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 -White coat HTN. -Tolerating Lynparza very well. -Anemia is from Lynparza and is stable. Previously ruled out other causes of macrocytic anemia. -Discussed plan for continued therapy and imaging as indicated by CA125 trend. Plan: -Continue Lynparza current dose. -CBC monthly. -OV with CBC/CMP/CA125 in about 3 months. - Overall tolerating lynparza well. - Reviewed CBC with pt. - CMP/CA125 pending. - Monitor CA125. - Imaging based on CA125 trend. - Continue lynparza at current dose. - CBC monthly. - Follow up with Dr. Mccoy in 3 months with CBC/CMP/CA125. - Pt. aware to call office with any questions/concerns. The patient indicates understanding of these issues and agrees with the plan. All documentation from previous visit of 08/03/24-Dr. Mccoy was copied and pasted, documentation has been reviewed and edited as necessary for today's visit. Fadi Ramirez APRN.HOUSEKEEPING ASSISTANT documented in this encounter [facility] 10-23-2024 Telephone encounter Note [facility] [employer] ONE MONTH FOLLOW UP PHONE CALL PHONE CALL DATE: 10/23/2024 PHONE CALL TIME: 11:03 AM DATE OF SURGERY: 09/04/2024 PROCEDURE: Closure of loop colostomy FOLLOW UP QUESTIONS: Is your appetite gradually improving? Yes Is your incision healing well? Yes Are you having regular bowel movements? Yes Did you have a good experience with your recent hospital stay? Yes Have you completed your follow up visit with your surgeon? Yes Patient states she's feeling great. She has no concerns at this time. Encouraged to call MD for questions/concerns. SIGNATURE: Estuardo Long RN DATE: 10/23/2024 TIME: 11:03 AM CONTACT #:[phone] [facility] 10-23-2024 Miscellaneous Notes [facility] [employer] ONE MONTH FOLLOW UP PHONE CALL PHONE CALL DATE: 10/23/2024 PHONE CALL TIME: 11:03 AM DATE OF SURGERY: 09/04/2024 PROCEDURE: Closure of loop colostomy FOLLOW UP QUESTIONS: Is your appetite gradually improving? Yes Is your incision healing well? Yes Are you having regular bowel movements? Yes Did you have a good experience with your recent hospital stay? Yes Have you completed your follow up visit with your surgeon? Yes Patient states she's feeling great. She has no concerns at this time. Encouraged to call MD for questions/concerns. SIGNATURE: Estuardo Long RN DATE: 10/23/2024 TIME: 11:03 AM CONTACT #:[phone] documented in this encounter [facility] 10-22-2024 History of Present illness Narrative [facility] Refill Assessment Medication(s): Lynparza No new clinic notes to review since last [facility] refill encounter. Labs from 09/28/24 reviewed. Hgb 9.4, Plt 178, ANC 3.04, CA 125 34 (up from 32 on 08/31/24) Next OV scheduled 11/02/24. ALLERGIES Allergen Reactions Erythromycin Diarrhea, GI Upset Abdominal cramping Penicillins Unknown Patient's current medication list and adherence status to current therapy were reviewed by Specialty Pharmacy clinical pharmacist to identify any new drug interactions or non-compliance to therapy. Therapy continues to be appropriate for disease, patient response, and medical condition. Verification of therapeutic benefit and effectiveness with current therapy was completed. Adverse events, barriers in adherence, and side effects were assessed and addressed if applicable. Will proceed with refill with no changes in therapy - patient progressing towards achieving therapeutic goals based on medication-specific laboratory parameters, disease state markers and outcomes. Office/provider notes have been reviewed prior to dispensing the medication. Miroslava McclureD, BCOP Clinical Pharmacist, Oncology [facility] P: , F: Pool: P [facility] Pool #: [id number] 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 Patient confirmed: Yes Med/dose confirmed: Yes Supplies needed: No supplies needed Missed doses: No Estimated days supply on hand: 6 Copay amount: 0 Payment confirmed: Yes Delivery method: FedEx Signature required: No Delivery address: [address] [place] [address] Delivery date: 10/24/24 Questions or concerns for the pharmacist?: No (OV 11/02 - no changes expected) Did you have any side effects believed to be related to this medication, that resulted in hospitalization?: No Current Outpatient Medications on File Prior to Visit Medication Sig olaparib (LYNPARZA) 100 mg tablet Take 2 tablets (200 mg) by mouth two times a day. metroNIDAZOLE (FLAGYL) 500 mg tablet Take two tabs by mouth at 1pm, 3pm, and 11pm the day prior to surgery. (Patient not taking: Reported on 10/17/2024) neomycin 500 mg tablet Take two tabs by mouth at 1pm, 3pm, and 11pm the day prior to the surgery. (Patient not taking: Reported on 10/17/2024) promethazine (PHENERGAN) 25 mg tablet Take 1 tab by mouth every 4 hours as needed for nausea. (Patient not taking: Reported on 10/17/2024) lisinopril-hydroCHLOROthiazide (ZESTORETIC) 20-12.5 mg per tablet Take 1 tablet by mouth two times a day. promethazine (PHENERGAN) 25 mg tablet Take 1 tab by mouth every 4 hours as needed for nausea. pantoprazole DR (PROTONIX) 40 mg tablet take 1 tablet by mouth every day ondansetron (ZOFRAN) 8 mg tablet Take 1 tablet by mouth every 8 hours as needed for nausea/vomiting. acetaminophen (TYLENOL) 500 mg tablet Take 2 tablets by mouth every 6 hours. vitamin b complex capsule Take 1 capsule by mouth once daily. oxybutynin ER (DITROPAN XL) 10 mg 24 hr tablet Take 15 mg by mouth once daily. calcium carbonate (CALCIUM 600 ORAL) Take 1 tablet by mouth once daily. No current facility-administered medications on file prior to visit. [facility] [place] CLINICAL ASSESSMENT - HEMATOLOGY ONCOLOGY V6: Ivent complete: No Assessment to use: Refill Lab monitoring inclusive of CBC, Chem-7, and other labs as pertinent for therapy: Yes Chemo cycle timing assessment: N/A Assessment of injection issues: N/A Current medication list (including drug interaction assessment): Yes Experience of adverse reactions to the medication: Yes Date of influenza vaccination reminder: 03/27/2024 Date of most recent vaccination assessment: 03/27/2024 Treatment Plan Information: Diagnosis: Stage IIIc high-grade serous carcinoma of the left ovary. BRIP1 mutated Previous treatment(s): - Neoadjuvant chemotherapy with paclitaxel and carboplatin x 3 cycles - Exploratory laparotomy, lysis of adhesions, total abdominal hysterectomy, bilateral salpingo-oophorectomy with en block rectosigmoid resection, cystoscopy and temporary bilateral ureteral stents (urology) Tx Plan: Lynparza (PARP maintenance) Starting Dose/Titration: Lynparza 200 mg BID - CrCl 36 ml/min o CrCl 31to 50 mL/min: reduce dose to 200 mg BID. Administration: Administer approximately every 12 hours with or without food. Swallow tablets whole - Nausea and vomiting were reported more frequently when olaparib was administered in a fasted state. Administering olaparib after a small meal or snack may help alleviate potential nausea and vomiting - Avoid grapefruit, grapefruit juice, [place] oranges, or [place] orange juice Warnings: - Hypersensitivity - Pulmonary toxicity - Secondary malignancy - Thromboembolic events Side Effects: include but are not limited to - Abdominal pain - Constipation/diarrhea - Nausea/Vomiting - Anemia - Fatigue - PERAZA - Myalgia Emetic potential: Moderate to high emetic risk (>30% frequency of emesis) - NCCN. Antiemetic is recommended. Zofran is on medication list Monitoring: - CBC at baseline and monthly thereafter, or as clinically indicated - Renal function - Signs/symptoms of venous thrombosis, pulmonary embolism, and pneumonitis - Adherence Drug-Drug Interactions: none Baseline: - CrCl 36 mL/min - Hgb 9.3 - Plt 137 - ANC2.81 Est. Tx Plan Start Date: No information available Estimated Start Date Info: Per Dr. Mccoy's discretion Est. Estimated Treatment Duration: Until disease progression or unacceptable toxicity Loretta Chao documented in this encounter [facility] 10-22-2024 Note [facility] 10-17-2024 Instructions Mark Kruse II, OD - 10/17/2024 10:50 AM EDT Assessment and Plan H52.13 Myopia, bilateral (primary encounter diagnosis) H52.223 Regular astigmatism of both eyes H52.4 Presbyopia Comment: Large myopic shift due to cataract progression. Update glasses. H25.813 Combined forms of age-related cataract, bilateral Comment: Cataracts progressing both eyes. Myopic shift both eyes. Patient will try new glasses. Discussed cataract surgery if needed. H40.002 Glaucoma suspect of left eye Comment: Glaucoma suspect both eyes due to optic nerve cupping and previously noted NFL anomalies. Stable nerve fiber layers in areas scanned today. Monitor yearly. No treatment indicated at this time. Discussed need for continued close observation to minimize chance of future vision loss. H43.393 Vitreous floaters of both eyes Comment: Vitreal floaters stable both eyes. Retinas flat and intact with no apparent retinal tear or traction. Monitor yearly. History of ovarian cancer. No ocular metastasis noted. I have confirmed and edited as necessary the relevant HPI, ophthalmic history, ROS, and the neuro exam findings as obtained by others. I have seen and examined Gasper Reed. I have discussed the case and the management of this patient's care with the Resident/Fellow, if applicable. I also have reviewed and agree with the assessment and plan as stated above and agree with all of its relevant components. documented in this encounter [facility] 10-17-2024 Note [facility] 10-17-2024 History of Present illness Narrative Assessment and Plan H52.13 Myopia, bilateral (primary encounter diagnosis) H52.223 Regular astigmatism of both eyes H52.4 Presbyopia Comment: Large myopic shift due to cataract progression. Update glasses. H25.813 Combined forms of age-related cataract, bilateral Comment: Cataracts progressing both eyes. Myopic shift both eyes. Patient will try new glasses. Discussed cataract surgery if needed. H40.002 Glaucoma suspect of left eye Comment: Glaucoma suspect both eyes due to optic nerve cupping and previously noted NFL anomalies. Stable nerve fiber layers in areas scanned today. Monitor yearly. No treatment indicated at this time. Discussed need for continued close observation to minimize chance of future vision loss. H43.393 Vitreous floaters of both eyes Comment: Vitreal floaters stable both eyes. Retinas flat and intact with no apparent retinal tear or traction. Monitor yearly. History of ovarian cancer. No ocular metastasis noted. I have confirmed and edited as necessary the relevant HPI, ophthalmic history, ROS, and the neuro exam findings as obtained by others. I have seen and examined Gasper Reed. I have discussed the case and the management of this patient's care with the Resident/Fellow, if applicable. I also have reviewed and agree with the assessment and plan as stated above and agree with all of its relevant components. documented in this encounter [facility] 10-17-2024 Note Date of Procedure 10/17/2024. Steel Floor Pan Placing Supervisor Information Wind Plant Manager: urbano. Start time: 10:07 AM. Quality Right Eye Poor. Left Eye Good. NFL Interpretation Right Eye Superior loss. Left Eye Superior loss. Ganglion Cell Layer Thickness Right Eye Diffuse loss. Left Eye Diffuse loss. Interval Change Right Eye Stable. Left Eye Stable. Notes Monitor [facility] 09-17-2024 Note [facility] 09-06-2024 Note HNO ID: [id number] Author: SELMA JONES RN Service: Care Management Author Type: Registered Nurse Type: Care Mgt Progress Note Filed: 09/06/2024 10:08 Note Text: CARE MANAGEMENT DISCHARGE NOTE SERVICE DATE: September 06, 2024 SERVICE TIME: 10:05 AM Admission Date: 09/04/2024 LOS: 2 days Discharge Arrangement Discharge Arrangement: Home with Self Care Caregiver Assessment Caregiver is ready, willing and able to meet the patient's needs as recommended by the inter-professional team: No Caregiver needed Transportation Arrangements Transportation Arrangements: Car Handoff Communication: Handoff to: Other Caregiver Other Caregiver Name/Phone: Bedside RN to provide discharge instructions Discharge today. Discharge orders complete. Plan is for patient to return home at discharge. Patient's family is willing to assist as needed and will provide discharge transportation. No transitional/discharge planning needs identified. SIGNATURE: Selma Jones RN PATIENT NAME: Gasper Reed DATE: September 06, 2024 TIME: 10:04 AM [facility] 09-06-2024 Note HNO ID: [id number] Author: ?, ?, ? Service: General Surgery Author Type: ? Type: Progress Notes Filed: 09/06/2024 06:16 Note Text: MEDICAL STUDENT Elective General Surgery (Green Surgery) Progress Note This note was generated by a medical student working under the supervision of a resident and attending physician. When co-signed, the physical exam findings, assessment, and plan as written below are are considered accurate. SERVICE DATE: 09/06/2024 Elective General Surgery (Green Surgery) Service Pager: For questions or concerns Mon-Fri 6a-5p please page [phone]. After 5pm and on Weekends and Holidays, please page [phone] if in ICU or [phone] if on RNF. SUBJECTIVE: Reports feeling well. Has back pain, which she reports is normal for her. Denies fevers, chills, CP, SOB, headache, cough, muscle weakness, numbness, urinary difficulty, or any other complaints this AM. She had several episodes of bradycardia overnight with lowest HR 49. Lowest BP was 92/65 but otherwise 140/60s overnight. Tolerating diet DIET GASTRO INTESTINAL Nausea No Emesis No Flatus Yes Bowel movement Yes Pain Controlled Yes Ambulating Yes OBJECTIVE: Vitals: Temp (24hrs), Av.8 ?C (98.2 ?F), Min:36.3 ?C (97.3 ?F), Max:37.1 ?C (98.7 ?F) BP 92/65 Pulse 64 Temp 36.7 ?C (98.1 ?F) (Oral) Resp 18 Ht 157.5 cm (5' 2) Wt 51.7 kg (114 lb) SpO2 100% BMI 20.85 kg/m? O2 Therapy: Room Air IANDO: Date 09/05/24699 - 09/06/24 0659 09/06/24699 - 09/07/24 0659 Shift 6001-8093 8200-3154 3009-9331 24 Hour Total 6248-8096 2521-5782 0205-4647 24 Hour Total INTAKE Shift Total OUTPUT Urine 350 1300 1650 Void (ml) 350 1300 1650 # of BMs Number of BMs 1 x 1 x 1 x 3 x Shift Total 350 1300 1650 Weight (kg) 51.7 51.7 51.7 51.7 51.7 51.7 51.7 51.7 MEDICATIONS Current Facility-Administered Medications Medication Dose Route Frequency lisinopril 20 mg tab(s) (ZESTRIL) 20 mg ORAL BID And hydroCHLOROthiazide 12.5 mg tab(s) 12.5 mg ORAL BID 9a/5p trospium 20 mg tab(s) (SANCTURA) 20 mg ORAL AT BEDTIME ondansetron 8 mg tab(s) (ZOFRAN) 8 mg ORAL q [address] 40 mg tab(s) (PROTONIX) 40 mg ORAL DAILY promethazine 25 mg tab(s) (PHENERGAN) 25 mg ORAL q 6 H PRN magnesium oxide 400 mg tab(s) (MAG-OX) 400 mg ORAL DAILY acetaminophen 975 mg tab(s) (TYLENOL) 975 mg ORAL q 6 H traMADol 50-100 mg tab(s) (ULTRAM) 50-100 mg ORAL q 6 H PRN enoxaparin 40 mg injection (LOVENOX) 40 mg SUBCUTANEOUS DAILY alvimopan 12 mg cap(s) (ENTEREG) 12 mg ORAL BID Labs: Recent Labs 09/06/24 0430 09/05/24 0323 NA 133* 133* K 3.8 3.8 CHLOR 97* 99 CO2 26 24 BUN 17 22* CREAT 1.30* 1.36* GLUC 95 126* ANION 10 10 CA 9.0 8.7 WBC 5.87 7.81 HB 9.3* 8.9* HCT 27.3* 25.7* PLT 164 149* Exam: GENERAL: resting comfortably, in no acute distress ABDOMEN: Soft, tender, non-distended, normal bowel sounds, incision clean, dry, intact, no drainage ASSESSMENT AND PLAN: Active Hospital Problems Diagnosis Date Noted Attention to colostomy (HCC) 04/20/2024 Assessment: 73 year old female 2 days s/p colostomy closure Hospital Course: 2 days status post colostomy closure. Overnight had one BP reading of 92/65 (MAP 74), otherwise BPs in the 140/60s overnight. Plan: - Diet: GI - Pain control: Tylenol every 6 hours - Nausea control: zofran prn - GI PPx: pantoprazole - DVT PPx: lovenox - Encourage ambulation, incentive spirometry Follow up needs: SIGNATURE: Angelique Saucedo PATIENT NAME: Gasper Reed DATE: September 06, 2024 TIME: 5:59 AM Pager: see below Elective General Surgery (Green Surgery) Service Pager: For questions or concerns Mon-Fri 6a-5p please page [phone]. After 5pm and on Weekends and Holidays, please page [phone]. [facility] 09-05-2024 Note HNO ID: [id number] Author: ROHIT MILES MD Service: General Surgery Author Type: Resident Type: Progress Notes Filed: 09/06/2024 08:49 Note Text: Attestation signed by Rohit Miles MD at 09/06/2024 8:49 AM I personally saw and examined the patient on 09/05/2024. I reviewed the resident?s note. I agree with the resident?s assessment and plan unless otherwise noted Rohit Miles MD 8:49 AM 02/13/25 Please Note: This office note has been created using [employer], a speech recognition software program, and may contain errors including punctuation, grammar, spelling, gender, and inappropriate words or phrases that pertain to the sytem. Elective General Surgery (Green Surgery) Progress Note SERVICE DATE: September 05, 2024 Elective General Surgery (Green Surgery) Service Pager: For questions or concerns Mon-Tue 6a-5p please page [phone]. After 5pm and on Weekends and Holidays, please page [phone]. SUBJECTIVE: Resting in bed, states no flatus or BM Tolerating diet DIET GASTRO INTESTINAL DIET GASTRO INTESTINAL OBJECTIVE: Vitals: Temp (24hrs), Av.4 ?C (97.5 ?F), Min:35.9 ?C (96.7 ?F), Max:37 ?C (98.6 ?F) BP 150/60 Pulse 60 Temp 37 ?C (98.6 ?F) (Oral) Resp 17 Ht 157.5 cm (5' 2) Wt 51.7 kg (114 lb) SpO2 100% BMI 20.85 kg/m? O2 Therapy: Room Air IANDO: Date 09/04/241499 - 09/05/24 0659 09/05/24 0700 - 09/06/24 0659 Shift 2398-6349 1305-1557 24 Hour Total 0465-0119 8968-7270 3389-4668 24 Hour Total INTAKE PO 480 720 PO 480 720 IV 280 1744.2 Volume (mL) 29.4 Volume (mL) 10.1 Volume (mL) 6.4 Volume (mL) 13.4 Volume (mL) (rocuronium injection) 5 Volume (mL) (magnesium sulfate iv piggyback in sterile water) 100 Volume (mL) (ciprofloxacin iv piggyback 400 mg in D5W 200 mL (CIPRO)) 200 Volume (mL) (metroNIDAZOLE iv piggyback 500 mg in NaCl (iso-osmotic) 100 mL (FLAGYL)) 100 Volume (mL) (lactated ringers iv infusion) 1000 Volume (mL) (lactated ringers iv infusion) 280 280 Shift Total 760 2464.2 OUTPUT Urine 250 250 350 500 850 Void (ml) 350 500 850 Amount Voided Before Bladder Scan 250 250 Urine Incontinence/Not Saved 1 x Urine Not Saved. 1 x 2 x # of BMs Number of BMs 1 x 1 x 2 x Blood 10 Estimated Blood loss 10 Shift Total 250 260 350 500 850 Weight (kg) 51.7 51.7 51.7 51.7 51.7 51.7 51.7 MEDICATIONS: Current Facility-Administered Medications Medication Dose Route Frequency hydrALAZINE 20 mg tab(s) (APRESOLINE) 20 mg ORAL ONCE lisinopril 20 mg tab(s) (ZESTRIL) 20 mg ORAL BID And hydroCHLOROthiazide 12.5 mg tab(s) 12.5 mg ORAL BID 9a/5p trospium 20 mg tab(s) (SANCTURA) 20 mg ORAL AT BEDTIME ondansetron 8 mg tab(s) (ZOFRAN) 8 mg ORAL q [address] 40 mg tab(s) (PROTONIX) 40 mg ORAL DAILY promethazine 25 mg tab(s) (PHENERGAN) 25 mg ORAL q 6 H PRN magnesium oxide 400 mg tab(s) (MAG-OX) 400 mg ORAL DAILY acetaminophen 975 mg tab(s) (TYLENOL) 975 mg ORAL q 6 H traMADol 50-100 mg tab(s) (ULTRAM) 50-100 mg ORAL q 6 H PRN enoxaparin 40 mg injection (LOVENOX) 40 mg SUBCUTANEOUS DAILY alvimopan 12 mg cap(s) (ENTEREG) 12 mg ORAL BID Labs: Recent Labs 09/05/24 0323 NA 133* K 3.8 CHLOR 99 CO2 24 BUN 22* CREAT 1.36* GLUC 126* ANION 10 CA 8.7 WBC 7.81 HB 8.9* HCT 25.7* PLT 149* Physical Exam: GENERAL: resting comfortably, in no acute distress HEENT: normocephalic, atraumatic, EOMI NECK: trachea midline, no JVD LUNGS: Unlabored breathing, equal chest rise bilaterally CARDIAC: Regular rate, warm extremities, good perfusion throughout ABDOMEN: Soft, non-tender, non-distended. No rebound or guarding, incision c/d/i. EXTREMITIES: JIN, No deformities, No edema SKIN: Skin color, texture, turgor normal, No rashes or lesions NEURO: AANDOx3, CN II-XII grossly intact PSYCH: normal mood and affect ASSESSMENT AND PLAN: Assessment Active Hospital Problems Diagnosis Date Noted Attention to colostomy (HCC) 04/20/2024 Assessment: 73 year old female with history of HTN, GUSTAVO, Ovarian Cancer s/p Bilateral Ureterolysis, Modified Posterior Exenteration (10/28/23) s/p Colectomy, colorectal anastomosis and loop colostomy (04/24/24), here for Loop Colostomy Reversal 09/04 Hospital Course/Operations/Procedures: 09/04/2024 Procedure(s): COLOSTOMY LOOP Plan: Loop Colostomy Reversal - patient on FLD this AM, order to Gis per attending, poss pt was passing flatus or had a BM - cont LVX - daily labs - encourage OOB - pain and nausea meds PRN INPATIENT ATTENDING: Rohit Mauro MD, Elective High-Risk Geriatric Patient Vulnerabilities: Patient is NOT high risk based on evaluation and assessment Diet: DIET GASTRO INTESTINAL DIET GASTRO INTESTINAL Code Status: Not on file Recom (more content not included)... [facility] 09-05-2024 Note HNO ID: [id number] Author: RITCHIE UNDERWOOD RN Service: Care Management Author Type: Registered Nurse Type: Care Mgt Initial Assessment Filed: 09/05/2024 20:32 Note Text: CARE MANAGEMENT: ASSESSMENT AND DISCHARGE PLAN SERVICE DATE: September 05, 2024 SERVICE TIME: 1:44 PM PCP: Emily Casanova DO Primary Contact: Extended Emergency Contact Information Primary Emergency Contact: Rosa Scott Address: [address] [place], [place] [id number] [place] [address] Mobile Relation: Daughter Secondary Emergency Contact: Clara Reed Address: [address] [address] [facility] Mobile Relation: Spouse Admission Status: Inpatient Insurance Provider: [employer] PPO Discharge Planning requested by: Per Department Practice Potential Transition Plans To Be Determined, Home Advance Directives Current Advance Directive: Health Care Power of Carpenter/Labor In Chart: Yes Up To Date and Valid: Yes Current Living Arrangements and Support Lives with: Spouse/significant other Type of Residence: Private Residence (House) Does the patient have to climb stairs at home?: stairs outside the home Support: Family members How do you manage to accomplish the following: Independent: Ambulation, Bathe/Shower, Dress, Meals/Meal Prep, Going to the bathroom, Medication Management, Transportation to appointments/community Current Services/Equipment Current Post-Acute Service(s): None Discharge Planning Patient Goal(s): Heal wounds Odin of Choice Explained: Odin of Choice Given: No Reason Not Given: No placements necessary Are you interested in bedside delivery of your medications? Yes Discharge Planning Participant(s): Family, Patient Patient/Family Comments: Caregiver Assessment: Caregiver is ready, willing and able to meet the patient's needs as recommended by the inter-professional team: No Caregiver needed Transport at Discharge: Transportation Arrangements: Car Destination: Home Needs Prior to Discharge: Needs Prior to Discharge: None Post-Acute Discharge Plan: +insurance +PCP Dr Casanova +Rx with [facility] [address] [address] -DME Chart reviewed, patient admitted for closure of ostomy. Patient seen up and ambulating in room. Pleasant and cooperative. Patient in from home with family members. Patient states she is independent and uses no DME. She has three small stairs to gain entry into the single level home. Patient has help available from spouse and daughter. Anticipate DC home with no needs. No social concerns when asked. Family will transport. Current CM needs addressed. No new needs identified at this time. CM will continue to follow clinical course for further transitional, discharge or POC needs. SIGNATURE: Ritchie Underwood RN PATIENT NAME: Gasper Reed DATE: September 05, 2024 TIME: 1:44 PM [facility] 09-05-2024 Note HNO ID: [id number] Author: ?, ?, ? Service: General Surgery Author Type: ? Type: Progress Notes Filed: 09/06/2024 05:11 Note Text: MEDICAL STUDENT Elective General Surgery (Green Surgery) Progress Note This note was generated by a medical student working under the supervision of a resident and attending physician. When co-signed, the physical exam findings, assessment, and plan as written below are are considered accurate. SERVICE DATE: 09/05/2024 Elective General Surgery (Green Surgery) Service Pager: For questions or concerns Mon-Fri 6a-5p please page [phone]. After 5pm and on Weekends and Holidays, please page [phone] if in ICU or [phone] if on RNF. SUBJECTIVE: Patient reports feeling well and reports 0/10 current pain level. Tylenol every 6 hours has been sufficient for pain control. She has been walking to and from the restroom and has been having normal urination. Tolerating liquids well, currently on a liquid diet. Has not yet had a bowel movement or passed flatus. She has had several waves of nausea but no emesis. Has not needed zofran. Admits to occasional nausea. Denies fevers, chills, CP, SOB, leg pain or edema, urinary difficulty, or any other complaints this AM. Tolerating diet DIET LIQUID Nausea Yes Emesis No Flatus No Bowel movement No Pain Controlled Yes Ambulating Yes OBJECTIVE: Vitals: Temp (24hrs), Av.2 ?C (97.1 ?F), Min:35.9 ?C (96.7 ?F), Max:36.4 ?C (97.5 ?F) BP 143/61 Pulse 60 Temp 36.4 ?C (97.5 ?F) (Oral) Resp 17 Ht 157.5 cm (5' 2) Wt 51.7 kg (114 lb) SpO2 98% BMI 20.85 kg/m? O2 Therapy: Room Air IANDO: Date 09/04/24699 - 09/05/24 0659 09/05/24 07 - 09/06/24 0659 Shift 0931-1744 1244-3050 8782-9005 24 Hour Total 4084-6523 6620-9001 4816-8292 24 Hour Total INTAKE PO 240 480 720 PO 240 480 720 IV 1464.2 280 1744.2 Volume (mL) 29.4 29.4 Volume (mL) 10.1 10.1 Volume (mL) 6.4 6.4 Volume (mL) 13.4 13.4 Volume (mL) (rocuronium injection) 5 5 Volume (mL) (magnesium sulfate iv piggyback in sterile water) 100 100 Volume (mL) (ciprofloxacin iv piggyback 400 mg in D5W 200 mL (CIPRO)) 200 200 Volume (mL) (metroNIDAZOLE iv piggyback 500 mg in NaCl (iso-osmotic) 100 mL (FLAGYL)) 100 100 Volume (mL) (lactated ringers iv infusion) 1000 1000 Volume (mL) (lactated ringers iv infusion) 280 280 Shift Total 1704.2 760 2464.2 OUTPUT Urine 250 250 Amount Voided Before Bladder Scan 250 250 Urine Incontinence/Not Saved 1 x 1 x Urine Not Saved. 1 x 1 x 2 x Blood 10 10 Estimated Blood loss 10 10 Shift Total 10 250 260 Weight (kg) 51.7 51.7 51.7 51.7 51.7 51.7 51.7 MEDICATIONS Current Facility-Administered Medications Medication Dose Route Frequency ondansetron 8 mg tab(s) (ZOFRAN) 8 mg ORAL q [address] 40 mg tab(s) (PROTONIX) 40 mg ORAL DAILY promethazine 25 mg tab(s) (PHENERGAN) 25 mg ORAL q 6 H PRN magnesium oxide 400 mg tab(s) (MAG-OX) 400 mg ORAL DAILY acetaminophen 975 mg tab(s) (TYLENOL) 975 mg ORAL q 6 H traMADol 50-100 mg tab(s) (ULTRAM) 50-100 mg ORAL q 6 H PRN enoxaparin 40 mg injection (LOVENOX) 40 mg SUBCUTANEOUS DAILY alvimopan 12 mg cap(s) (ENTEREG) 12 mg ORAL BID Labs: Recent Labs 09/05/24 0323 NA 133* K 3.8 CHLOR 99 CO2 24 BUN 22* CREAT 1.36* GLUC 126* ANION 10 CA 8.7 WBC 7.81 HB 8.9* HCT 25.7* PLT 149* Exam: GENERAL: resting comfortably, in no acute distress ABDOMEN: Soft, tender to palpation, non-distended. BS present. Bandage intact, no drainage appreciated. EXTREMITIES: JIN, No deformities, No edema ASSESSMENT AND PLAN: Active Hospital Problems Diagnosis Date Noted Attention to colostomy (HCC) 04/20/2024 Assessment: 73 year old female 1 day s/p post-op for colostomy closure Hospital Course: Procedure 09/04/24, tolerated well. Plan: - Diet: Liquid Diet, advance to next step today - Pain control: tylenol every 6 hours - Nausea control: zofran as needed - GI PPx: pantoprazole - DVT PPx: lovenox - Home Medications: zestoretic 20-12.5 mg, lynparza 200 mg BID, oxybutynin ER 15 mg, calcium carbonate 600 MG - Encourage ambulation, incentive spirometry - Discussed with resident: Follow up needs: SIGNATURE: Angelique Saucedo PATIENT NAME: Gasper Reed DATE: September 05, 2024 TIME: 5:54 AM Pager: see below Elective General Surgery (Green Surgery) Service Pager: For questions or concerns Mon-Tue 6a-5p please page [phone]. After 5pm and on Weekends and Holidays, please page [phone]. [facility] 09-04-2024 Note HNO ID: [id number] Author: NAT DE SOUZA RN Service: Nursing Author Type: Registered Nurse Type: Nursing Progress Note Filed: 09/04/2024 12:02 Note Text: Patient transferred from PACU to PPRU spot P. [facility] 09-04-2024 Note HNO ID: [id number] Author: JOVANNY STEPHENS APRN.CRNA Service: Anesthesiology Author Type: Nurse Accounting Specialist Type: Anesthesia Procedure Notes Filed: 09/04/2024 08:04 Note Text: ANESTHESIOLOGY PROCEDURE NOTE Airway General Information Procedure Start Time/Medication Administration: 09/04/2024 7:36 AM Procedure End Time: 09/04/2024 8:03 AM Patient location during procedure: OR Timeout Performed Pre-procedure: timeout performed Consent Obtained: Yes Patient identity confirmed: arm band Staffing LIGHT OIL OPERATOR: Jovanny Stephens APRN.LIGHT OIL OPERATOR Performed by: SCOTT Indications and Patient Condition Indications for airway management: anesthesia Preoxygenated: yes anesthesia circuit Patient position: sniffing Method: asleep Cricoid Pressure: No Manual In-Line Stabilization: No Difficult Mask: No Final Airway Details Final airway type: endotracheal airway Final Endotracheal Airway: ETT Cuffed: yes Successful intubation technique: video laryngoscopy Devices used: Gardner and intubating stylet Endotracheal tube insertion site: oral Blade size: #3 ETT size (mm): 7.0 Measured from: lips Measurement (cm): 21 Placement verified by: chest auscultation and capnometry Cormack-Lehane Classification: grade I - full view of glottis Number of attempts at approach: 1 Failed airway: no Unrecognized esophageal intubation: no Airway not difficult SIGNATURE: Jovanny Stephens APRN.CRNA PATIENT NAME: Gasper Reed DATE: September 04, 2024 TIME: 8:03 AM CSN: [id number] [facility] 09-04-2024 Note HNO ID: [id number] Author: KEVIN NJ DO Service: Anesthesiology Author Type: Anesthesiologist Type: Anesthesia Procedure Notes Filed: 09/04/2024 08:02 Note Text: ANESTHESIOLOGY PROCEDURE NOTE PIV General Information Procedure Start Time/Medication Administration: 09/04/2024 7:35 AM Procedure End Time: 09/04/2024 7:35 AM Patient Location: OR Staffing Performed by: anesthesiologist Preparation Sterility Preparation: hand hygiene performed prior to procedure, surgical cap used, mask used Procedure Details Indication: need for IV access Needle Size/Type: 18 gauge angiocath Orientation: Left Location: Wrist Imaging Guidance Used: No SIGNATURE: Kevin Nj DO PATIENT NAME: Gasper Reed DATE: September 04, 2024 TIME: 8:00 AM CSN: [id number] [facility] 08-31-2024 Telephone encounter Note Please send refill to [facility]. Victorina Rebolledo LPN [facility] 08-31-2024 Miscellaneous Notes Please send refill to [facility]. Victorina Rebolledo LPN documented in this encounter [facility] 08-31-2024 Note [facility] 08-31-2024 History of Present illness Narrative Patient is here for IVAD port flush/blood draw per [facility] [place] protocol. IVAD is located in right upper chest. Site cleansed with Chloraprep IVAD accessed with a #20 gauge 3/4 non-coring Gripper needle Flush with 5cc's Normal Saline. Blood Return: Good. 10 cc's blood aspirated and discarded. Blood drawn for CBC and Ca-125. Flushed with: 20 ml Normal Saline. Non-coring needle removed. Paper tape applied to puncture site. Site negative for redness, edema or tenderness. Patient tolerated procedure well. documented in this encounter [facility] 08-27-2024 History of Present illness Narrative GENERAL SURGERY/ERAS [employer] POLICY SPECIALIST PREOPERATIVE EDUCATION Date: 08/27/2024 Time: 11:25 AM Education provide to: patient and spouse Lives with: Spouse Mobility: Independent ERAS protocol instructions given with good understanding. Written instructions given to patient. Encouraged to call with any questions. SIGNATURE: Estuardo Long RN PATIENT NAME: Gasper Reed DATE: August 27, 2024 TIME: 11:54 AM PAGER/CONTACT #: [phone] documented in this encounter [facility] 08-27-2024 Note HNO ID: [id number] Author: ESTUARDO LONG RN Service: ? Author Type: Registered Nurse Type: Progress Notes Filed: 08/27/2024 11:55 Note Text: GENERAL SURGERY/ERAS [employer] POLICY SPECIALIST PREOPERATIVE EDUCATION Date: 08/27/2024 Time: 11:25 AM Education provide to: patient and spouse Lives with: Spouse Mobility: Independent ERAS protocol instructions given with good understanding. Written instructions given to patient. Encouraged to call with any questions. SIGNATURE: Estuardo Long RN PATIENT NAME: Gasper Reed DATE: August 27, 2024 TIME: 11:54 AM PAGER/CONTACT #: [phone] [facility] 08-27-2024 History and physical note Images from the original note were not included. [facility] HISTORY AND PHYSICAL EXAMINATION SERVICE DATE: 08/27/2024 SERVICE TIME: 11:07 AM PRIMARY CARE PHYSICIAN: Emily A Jocelyne, DO Assessment Patient has the following medical conditions which may affect leslie-operative course: Preop examination Patient has the following medical conditions which may affect leslie-operative course addressed in assessment and plan today. 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 Mccoy Rheumatoid arthritis without rheumatoid factor, unspecified site ([facility]) Mild per patient GERD (gastroesophageal reflux disease) PPI take morning of surgery [place] Activity Status Index: METS: Climb a flight of stairs or walk up a hill (5.50 METs) DASI Score: 5.5 Patient denies any chest pain or undue shortness of breath with the above physical activity. ARISCAT Score: Age: 51-80 Preoperative SpO2: >=96% Respiratory infection in the last month: No Preoperative anemia: No Surgical incision: upper abdominal Duration of surgery: 2-3 hrs Emergency procedure: No ARISCAT Score: 34 ANESTHESIA FINDINGS: Intubation History: No history of difficult intubation Significant Anesthesia Considerations: none Airway History: No history of difficult airway I - PHYSICAL EVALUATION AIRWAY Patient intubated: No. DENTAL Dental findings: teeth intact. II - ANESTHESIA PLAN Anesthetic Plan: general Beta [place] Monitoring Plan Post Procedure Analgesic Plan Prepared for Surgery: . Per patient-no optimizations requested by surgeon for plan procedure. CONSULTS: Planned Anesthetic: general The Following Tests/Procedures Have Been Initiated: Orders Placed This Encounter CBC Standing Status: Future Standing Expiration Date: 11/26/2024 BASIC METABOLIC PNL Standing Status: Future Standing Expiration Date: 11/26/2024 The reason for this visit is to perform a comprehensive review of the patient's past medical history, assess their current health status and obtain any additional testing required based on anesthesia guidelines. We will also identify any potential anesthesia problems or contraindications to the planned procedure. REASON FOR VISIT: Gasper Reed is a 73 year old female who is scheduled for Procedure(s): COLOSTOMY CLOSURE (N/A) at the request of Dr. Rohit Miles for routine H&P. My final recommendation will be communicated back to the requesting physician by way of shared medical record or letter. Subjective The patient has the following: COVID-19 Immunization Status Overdue - Covid-19 Vaccine () Overdue since 07/17/2024 05/22/2024 Imm Admin: COVID-19 vaccine, age 12+ yr, bivalent ([employer]) 04/27/2023 Imm Admin: COVID-19 vaccine, age 12+ yr (P[employer] COMIRNATY) 04/21/2022 Imm Admin: COVID-19 vaccine, age 12+ yr, bivalent ([employer]) Only the first 3 history entries have been loaded, but more history exists. CHIEF COMPLAINT: The reason for this visit is to perform a comprehensive review of the patient's past medical history, assess their current health status and obtain any additional testing required based on anesthesia guidelines. We will also identify any potential anesthesia problems or contraindications to the planned procedure. HPI: Patient is a 73 year old female who presents for pre surgical testing. Patient reports a hx of ovarian cancer currently on Lynparza. Transverse loop diverting colostomy in June 2023. April 2024 had bowel repair. Colostomy bag is in place without problems. Patient denies any pain and states she is at the point where the colostomy can be reversed. After discussion with the surgeon the patient agrees to surgical intervention REVIEW OF SYSTEMS: General: Negative for: unintentional weight change, malaise and fever. Neurological: Negative for: headaches, seizures and strokes. Respiratory: Negative for: asthma, COPD, pneumonia within 6 weeks, URI < 2 weeks and obstructive sleep apnea. Cardiovascular: Positive for: hypertension Negative for: atrial fibrillation, CAD, chest pain, CHF, DVT/PE and hyperlipidemia. GI: See HPI. ostomy Positive for: GERD Negative for: abdominal pain, nausea and vomiting. : Negative for: dysuria, hematuria and renal failure. Endocrine: Negative for: diabetes mellitus, hyperthyroidism and hypothyroidism. Hematology: Negative for: anemia, factor V Leiden and von Willebrand disease. Oncology: No history of CA metastasis, chemo within 30 days, or radiotherapy within 90 days. No history of oncological symptoms or problems. Psych: Positive for: anxiety. Negative for: depression. Musculoskeletal: Positive for: joint pain. Negative for: back pain. Skin: Negative for lesions, rash and itching. Patient denies any pain. She states that PAST MEDICAL HISTORY Diagnosis Date Arthritis Attention to colostomy (HCC) Cataract Colostomy in place (HCC) ovarian cancer, tumor leaning against bowel Essential hypertension, benign 07/25/1994 Generalized anxiety disorder Nausea and vomiting with chemotherapy and anesthesia Ovarian cancer on left (HCC) PONV (postoperative nausea and vomiting) PAST SURGICAL HISTORY Procedure Laterality Date COLOSTOMY 07/15/2023 transverse loop diverting COLOSTOMY 04/2024 partial colon resection L'SCOPE DX W/WO BRUSHINGS/WASHINGS 07/15/2023 with peritoneal biopsy LAPAROSCOPIC OMENTECTOMY 10/28/2023 LIG/TRNSXJ FLP TUBE ABDL/VAG APPR UNI/BI 07/25/1981 Tubal ligation TONSILLECTOMY & ADENOIDECTOMY TOTAL ABDOM HYSTERECTOMY 10/28/2023 TOTAL ABDOMINAL HYSTERECT W/WO RMVL TUBE OVARY 10/28/2023 FAMILY HISTORY Problem Relation Age of Onset Osteoporosis Mother smoker other (osteoarthritis) Mother Cancer Mother Coronary Artery Disease Father MA age 40's, age 60's; also smoked and alcoholic Mental illness Sister Renal Disease Sister Cancer Sister other (rheumatoid arthritis) Sister Coronary Artery Disease Brother MA age 49, smoker, recovering alcoholic Breast Cancer Paternal Grandmother late 70's Diabetes Paternal Grandfather Heart Paternal Grandfather Breast Cancer Maternal Aunt age 65 Ovarian cancer Maternal Aunt Social History Tobacco Use Smoking status: Former Types: Cigarettes Smokeless tobacco: Never Tobacco comments: Pt smoked an occ cigarette for 1 approx years Vaping Use Vaping status: Never Used Substance Use Topics Alcohol use: Not Currently Alcohol/week: 2.0 standard drinks of alcohol Types: 2 Glasses of Wine (5oz) per week Drug use: No Prior to Admission medications as of 08/27/24 1047 Medication Sig Last Dose Taking lisinopril-hydroCHLOROthiazide (ZESTORETIC) 20-12.5 mg per tablet Take 1 tablet by mouth two times a day. Taking Yes promethazine (PHENERGAN) 25 mg tablet Take 1 tab by mouth every 4 hours as needed for nausea. Taking Yes olaparib (LYNPARZA) 100 mg tablet Take 2 tablets (200 mg) by mouth two times a day. Taking Yes pantoprazole DR (PROTONIX) 40 mg tablet take 1 tablet by mouth every day Taking Yes ondansetron (ZOFRAN) 8 mg tablet Take 1 tablet by mouth every 8 hours as needed for nausea/vomiting. Taking Yes acetaminophen (TYLENOL) 500 mg tablet Take 2 tablets by mouth every 6 hours. Taking Yes vitamin b complex capsule Take 1 capsule by mouth once daily. Taking Yes oxybutynin ER (DITROPAN XL) 10 mg 24 hr tablet Take 15 mg by mouth once daily. Taking Yes calcium carbonate (CALCIUM 600 ORAL) Take 1 tablet by mouth once daily. Taking Yes metroNIDAZOLE (FLAGYL) 500 mg tablet Take two tabs by mouth at 1pm, 3pm, and 11pm the day prior to surgery. neomycin 500 mg tablet Take two tabs by mouth at 1pm, 3pm, and 11pm the day prior to the surgery. promethazine (PHENERGAN) 25 mg tablet Take 1 tab by mouth every 4 hours as needed for nausea. No medication comments found. ALLERGIES Allergen Reactions Erythromycin Diarrhea, GI Upset Abdominal cramping Penicillins Unknown Objective PHYSICAL EXAM: General: alert and oriented and healthy appearance. Pertinent negatives noted - not distressed. Skin: normal color, no rash or lesions. HEENT: pupils equal round. Cardiovascular: regular rate and rhythm, normal S1 and S2, no rub, murmurs, or gallop. Respiratory: normal breath sounds, no wheezes or crackles. No chest wall deformity or tenderness. Abdomen: bowel sounds present. Extremities: no deformity, no edema or tenderness, no joint swelling or clubbing. Neurological: normal cognition and motor skills. Gait normal. No weakness or sensory deficit. PAIN ASSESSMENT: VITALS: BP 161/78 Pulse 79 Temp 97.9 Resp 16 Ht 5' 2 (1.58m) Wt 114 lb (51.7kg) SpO2 100% BMI 20.85 kg/(m^2). Diagnostic tests reviewed for today's visit: Lab Value Units Date High Low HB 9.3 g/dL 08/03/2024 15.5 11.5 HCT 27.5 % 08/03/2024 46.0 36.0 WBC 5.44 k/uL 08/03/2024 11.00 3.70 PLT 175 k/uL 08/03/2024 400 150 NA 138 mmol/L 08/03/2024 144 136 K 3.8 mmol/L 08/03/2024 5.1 3.7 GLUC 127 mg/dL 08/03/2024 99 74 BUN 35 mg/dL 08/03/2024 21 7 CREAT 1.25 mg/dL 08/03/2024 0.96 0.58 PTSEC No results within date range. INR No results within date range. APTT No results within date range. ALT 18 U/L 08/03/2024 38 7 AST 22 U/L 08/03/2024 35 13 TBILI 0.7 mg/dL 08/03/2024 1.3 0.2 TSH 1.730 mIU/L 03/19/2024 4.200 0.270 Lab Value Units Date High Low HCGQT No results within date range. UHCG No results within date range. HCG, BODY* No results within date range. Lab Value Units Date High Low ABORHD No results within date range. ABSCREEN No results within date range. No results found for: HBA1C No results found for this or any previous visit (from the past 8760 hour(s)). No results found for this or any previous visit (from the past 36521 hour(s)). Surgical scrub given day of PST. ARISCAT risk index interpretation 0 to 25 points: Low risk: 1.6% pulmonary complication rate 26 to 44 points: Intermediate risk: 13.3% pulmonary complication rate 45 to 123 points: High risk: 42.1% pulmonary complication rate Implantable Devices: Right chest port The Following Tests/Procedures Have Been Initiated: No test ordered in [facility] by surgeon Assessment/Plan Diagnosis:Attention to colostomy (HCC) [Z43.3] PLAN Planned Procedure: Procedure(s): COLOSTOMY CLOSURE (N/A) I spent a total of 40 minutes on the date of the service which included preparing to see the patient, [id number] patient care, completing clinical documentation, obtaining and/or reviewing separately obtained history, performing a medically appropriate examination, counseling and educating the patient/family/caregiver, and ordering medications, tests, or procedures. Instructions Given to Patient: Instructions located in the after visit summary. Patient given verbal and written preop instructions and voices comprehension and compliance. SIGNATURE: Mulugeta Valerio APRN.CNP PATIENT NAME: Gasper Reed DATE: August 27, 2024 TIME: 7:32 AM PAGER/CONTACT #: [facility] 08-27-2024 History and physical note Images from the original note were not included. [facility] HISTORY AND PHYSICAL EXAMINATION SERVICE DATE: 08/27/2024 SERVICE TIME: 11:07 AM PRIMARY CARE PHYSICIAN: Emily Casanova DO Assessment Patient has the following medical conditions which may affect leslie-operative course: Preop examination Patient has the following medical conditions which may affect leslie-operative course addressed in assessment and plan today. Chronic hypertension Lisinopril hydrochlorothiazide instructed to hold day of surgery Patient states it is always elevated at doctor visits Attention to colostomy (HCC) Surgery scheduled for September 04, 2024 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 chemotherapy H&H 9.3.August 03, 2023 CBC pending Platelets decreased (HCC) Platelet Count 150 - 400 k/uL 175 114 Low [address] Mccoy Rheumatoid arthritis without rheumatoid factor, unspecified site (HCC) Mild per patient GERD (gastroesophageal reflux disease) PPI take morning of surgery Dotson Activity Status Index: METS: Climb a flight of stairs or walk up a hill (5.50 METs) DASI Score: 5.5 Patient denies any chest pain or undue shortness of breath with the above physical activity. ARISCAT Score: Age: 51-80 Preoperative SpO2: >=96% Respiratory infection in the last month: No Preoperative anemia: No Surgical incision: upper abdominal Duration of surgery: 2-3 hrs Emergency procedure: No ARISCAT Score: 34 ANESTHESIA FINDINGS: Intubation History: No history of difficult intubation Significant Anesthesia Considerations: none Airway History: No history of difficult airway I - PHYSICAL EVALUATION AIRWAY Patient intubated: No. DENTAL Dental findings: teeth intact. II - ANESTHESIA PLAN Anesthetic Plan: general Beta Dale Monitoring Plan Post Procedure Analgesic Plan Prepared for Surgery: . Per patient-no optimizations requested by surgeon for plan procedure. CONSULTS: Planned Anesthetic: general The Following Tests/Procedures Have Been Initiated: Orders Placed This Encounter CBC Standing Status: Future Standing Expiration Date: 11/26/2024 BASIC METABOLIC PNL Standing Status: Future Standing Expiration Date: 11/26/2024 The reason for this visit is to perform a comprehensive review of the patient's past medical history, assess their current health status and obtain any additional testing required based on anesthesia guidelines. We will also identify any potential anesthesia problems or contraindications to the planned procedure. REASON FOR VISIT: Gasper Reed is a 73 year old female who is scheduled for Procedure(s): COLOSTOMY CLOSURE (N/A) at the request of Dr. Rohit Miles for routine H&P. My final recommendation will be communicated back to the requesting physician by way of shared medical record or letter. Subjective The patient has the following: COVID-19 Immunization Status Overdue - Covid-19 Vaccine () Overdue since 07/17/2024 05/22/2024 Imm Admin: COVID-19 vaccine, age 12+ yr, bivalent (PFIZER-BIONTECH) 04/27/2023 Imm Admin: COVID-19 vaccine, age 12+ yr (PFIZER-BIONTECH COMIRNATY) 04/21/2022 Imm Admin: COVID-19 vaccine, age 12+ yr, bivalent (PlaceFirstBIONTECH) Only the first 3 history entries have been loaded, but more history exists. CHIEF COMPLAINT: The reason for this visit is to perform a comprehensive review of the patient's past medical history, assess their current health status and obtain any additional testing required based on anesthesia guidelines. We will also identify any potential anesthesia problems or contraindications to the planned procedure. HPI: Patient is a 73 year old female who presents for pre surgical testing. Patient reports a hx of ovarian cancer currently on Lynparza. Transverse loop diverting colostomy in June 2023. April 2024 had bowel repair. Colostomy bag is in place without problems. Patient denies any pain and states she is at the point where the colostomy can be reversed. After discussion with the surgeon the patient agrees to surgical intervention REVIEW OF SYSTEMS: General: Negative for: unintentional weight change, malaise and fever. Neurological: Negative for: headaches, seizures and strokes. Respiratory: Negative for: asthma, COPD, pneumonia within 6 weeks, URI < 2 weeks and obstructive sleep apnea. Cardiovascular: Positive for: hypertension Negative for: atrial fibrillation, CAD, chest pain, CHF, DVT/PE and hyperlipidemia. GI: See HPI. ostomy Positive for: GERD Negative for: abdominal pain, nausea and vomiting. : Negative for: dysuria, hematuria and renal failure. Endocrine: Negative for: diabetes mellitus, hyperthyroidism and hypothyroidism. Hematology: Negative for: anemia, factor V Leiden and von Willebrand disease. Oncology: No history of CA metastasis, chemo within 30 days, or radiotherapy within 90 days. No history of oncological symptoms or problems. Psych: Positive for: anxiety. Negative for: depression. Musculoskeletal: Positive for: joint pain. Negative for: back pain. Skin: Negative for lesions, rash and itching. Patient denies any pain. She states that PAST MEDICAL HISTORY Diagnosis Date Arthritis Attention to colostomy (HCC) Cataract Colostomy in place (HCC) ovarian cancer, tumor leaning against bowel Essential hypertension, benign 07/25/1994 Generalized anxiety disorder Nausea and vomiting with chemotherapy and anesthesia Ovarian cancer on left (HCC) PONV (postoperative nausea and vomiting) PAST SURGICAL HISTORY Procedure Laterality Date COLOSTOMY 07/15/2023 transverse loop diverting COLOSTOMY 04/2024 partial colon resection L'SCOPE DX W/WO BRUSHINGS/WASHINGS 07/15/2023 with peritoneal biopsy LAPAROSCOPIC OMENTECTOMY 10/28/2023 LIG/TRNSXJ FLP TUBE ABDL/VAG APPR UNI/BI 07/25/1981 Tubal ligation TONSILLECTOMY & ADENOIDECTOMY <AGE 12 07/25/1962 TOTAL ABDOM HYSTERECTOMY 10/28/2023 TOTAL ABDOMINAL HYSTERECT W/WO RMVL TUBE OVARY 10/28/2023 FAMILY HISTORY Problem Relation Age of Onset Osteoporosis Mother smoker other (osteoarthritis) Mother Cancer Mother Coronary Artery Disease Father MA age 40's, age 60's; also smoked and alcoholic Mental illness Sister Renal Disease Sister Cancer Sister other (rheumatoid arthritis) Sister Coronary Artery Disease Brother MA age 49, smoker, recovering alcoholic Breast Cancer Paternal Grandmother late 70's Diabetes Paternal Grandfather Heart Paternal Grandfather Breast Cancer Maternal Aunt age 65 Ovarian cancer Maternal Aunt Social History Tobacco Use Smoking status: Former Types: Cigarettes Smokeless tobacco: Never Tobacco comments: Pt smoked an occ cigarette for 1 approx years Vaping Use Vaping status: Never Used Substance Use Topics Alcohol use: Not Currently Alcohol/week: 2.0 standard drinks of alcohol Types: 2 Glasses of Wine (5oz) per week Drug use: No Prior to Admission medications as of 08/27/24 1047 Medication Sig Last Dose Taking lisinopril-hydroCHLOROthiazide (ZESTORETIC) 20-12.5 mg per tablet Take 1 tablet by mouth two times a day. Taking Yes promethazine (PHENERGAN) 25 mg tablet Take 1 tab by mouth every 4 hours as needed for nausea. Taking Yes olaparib (LYNPARZA) 100 mg tablet Take 2 tablets (200 mg) by mouth two times a day. Taking Yes pantoprazole DR (PROTONIX) 40 mg tablet take 1 tablet by mouth every day Taking Yes ondansetron (ZOFRAN) 8 mg tablet Take 1 tablet by mouth every 8 hours as needed for nausea/vomiting. Taking Yes acetaminophen (TYLENOL) 500 mg tablet Take 2 tablets by mouth every 6 hours. Taking Yes vitamin b complex capsule Take 1 capsule by mouth once daily. Taking Yes oxybutynin ER (DITROPAN XL) 10 mg 24 hr tablet Take 15 mg by mouth once daily. Taking Yes calcium carbonate (CALCIUM 600 ORAL) Take 1 tablet by mouth once daily. Taking Yes metroNIDAZOLE (FLAGYL) 500 mg tablet Take two tabs by mouth at 1pm, 3pm, and 11pm the day prior to surgery. neomycin 500 mg tablet Take two tabs by mouth at 1pm, 3pm, and 11pm the day prior to the surgery. promethazine (PHENERGAN) 25 mg tablet Take 1 tab by mouth every 4 hours as needed for nausea. No medication comments found. ALLERGIES Allergen Reactions Erythromycin Diarrhea, GI Upset Abdominal cramping Penicillins Unknown Objective PHYSICAL EXAM: General: alert and oriented and healthy appearance. Pertinent negatives noted - not distressed. Skin: normal color, no rash or lesions. HEENT: pupils equal round. Cardiovascular: regular rate and rhythm, normal S1 and S2, no rub, murmurs, or gallop. Respiratory: normal breath sounds, no wheezes or crackles. No chest wall deformity or tenderness. Abdomen: bowel sounds present. Extremities: no deformity, no edema or tenderness, no joint swelling or clubbing. Neurological: normal cognition and motor skills. Gait normal. No weakness or sensory deficit. PAIN ASSESSMENT: VITALS: BP 161/78 Pulse 79 Temp 97.9 Resp 16 Ht 5' 2 (1.58m) Wt 114 lb (51.7kg) SpO2 100% BMI 20.85 kg/(m^2). Diagnostic tests reviewed for today's visit: Lab Value Units Date High Low HB 9.3 g/dL 08/03/2024 15.5 11.5 HCT 27.5 % 08/03/2024 46.0 36.0 WBC 5.44 k/uL 08/03/2024 11.00 3.70 PLT 175 k/uL 08/03/2024 400 150 NA 138 mmol/L 08/03/2024 144 136 K 3.8 mmol/L 08/03/2024 5.1 3.7 GLUC 127 mg/dL 08/03/2024 99 74 BUN 35 mg/dL 08/03/2024 21 7 CREAT 1.25 mg/dL 08/03/2024 0.96 0.58 PTSEC No results within date range. INR No results within date range. APTT No results within date range. ALT 18 U/L 08/03/2024 38 7 AST 22 U/L 08/03/2024 35 13 TBILI 0.7 mg/dL 08/03/2024 1.3 0.2 TSH 1.730 mIU/L 03/19/2024 4.200 0.270 Lab Value Units Date High Low HCGQT No results within date range. UHCG No results within date range. HCG, BODY* No results within date range. Lab Value Units Date High Low ABORHD No results within date range. ABSCREEN No results within date range. No results found for: HBA1C No results found for this or any previous visit (from the past 8760 hour(s)). No results found for this or any previous visit (from the past 07651 hour(s)). Surgical scrub given day of PST. ARISCAT risk index interpretation 0 to 25 points: Low risk: 1.6% pulmonary complication rate 26 to 44 points: Intermediate risk: 13.3% pulmonary complication rate 45 to 123 points: High risk: 42.1% pulmonary complication rate Implantable Devices: Right chest port The Following Tests/Procedures Have Been Initiated: No test ordered in [facility] by surgeon Assessment/Plan Diagnosis:Attention to colostomy (HCC) [Z43.3] PLAN Planned Procedure: Procedure(s): COLOSTOMY CLOSURE (N/A) I spent a total of 40 minutes on the date of the service which included preparing to see the patient, [id number] patient care, completing clinical documentation, obtaining and/or reviewing separately obtained history, performing a medically appropriate examination, counseling and educating the patient/family/caregiver, and ordering medications, tests, or procedures. Instructions Given to Patient: Instructions located in the after visit summary. Patient given verbal and written preop instructions and voices comprehension and compliance. SIGNATURE: Mulugeta Valerio APRN.CNP PATIENT NAME: Gasper Reed DATE: August 27, 2024 TIME: 7:32 AM PAGER/CONTACT #: documented in this encounter [facility] 08-27-2024 Instructions Mulugeta Valerio APRN.CNP - 08/27/2024 7:32 AM EST PATIENT PREOPERATIVE INSTRUCTIONS Rohit Miles, * has scheduled you for your procedure at this surgery center: [facility]: [phone], [address] [address] Please read below carefully for your personalized instructions. Date of Surgery: 09/04/24 Arrival Time for Surgery: Your surgeon's office will provide you with your arrival time for surgery if they have not done so already. If you do not have your arrival time for surgery by the afternoon the day before your surgery you can call the surgeon's office. If you are scheduled for a Tuesday surgery you can call the Tuesday before. - Please be aware that emergency situations arise, which may delay or change your surgical time. If this happens, your surgeon's office will notify you as soon as possible and regret any inconvenience. Dietary Restrictions: Follow ERAS instructions Medications: Pre Surgery Med Instructions Medication instructions acetaminophen (TYLENOL) 500 mg tablet As usual calcium carbonate (CALCIUM 600 ORAL) Stop 7 days before surgery lisinopril-hydroCHLOROthiazide (ZESTORETIC) 20-12.5 mg per tablet Continue until night before surgery olaparib (LYNPARZA) 100 mg tablet As per surgeon's recommendation ondansetron (ZOFRAN) 8 mg tablet As usual oxybutynin ER (DITROPAN XL) 10 mg 24 hr tablet Take morning of surgery with sip of water, no other fluids pantoprazole DR (PROTONIX) 40 mg tablet Take morning of surgery with sip of water, no other fluids promethazine (PHENERGAN) 25 mg tablet As usual vitamin b complex capsule Stop 7 days before surgery Blood pressure medications See med list for instructions Take beta dale day of surgery Do not take JUANCHO or ARB medications day of surgery Weight loss medications Sympathomimetics such as Adipex-P (Phentermine): Stop 4 days before surgery. Contrave (Naltrexone/Bupropion) Hold 2-3 days. Qsymia (Phentermine/Topiramate - Please contact your prescribing provider for Pre op directions. ( depending on the patients dose this medication may need tapered off. They should get pre op directions from their prescribing provider.) GLP-1 Agonists (oral and injectables) Hold 7 days. Blood Thinning Medications: - Stop NSAIDS (Ibuprofen, Advil, Aleve, Motrin, Celebrex, Mobic, etc.) 7 days before surgery, as directed by your surgeon. - You may take Tylenol (Acetaminophen) or any of your current prescribed pain medications that do not contain aspirin or NSAIDS as needed. - If you take any of the following blood thinners, please contact your surgeon and the physician who prescribes it for you in order to get perioperative instructions as soon as possible Blood thinners: Aspirin,Coumadin, Plavix, Eliquis, Pradaxa, Xarelto, Lovenox, Brilinta, Effient, Savaysa, etc. Supplements - Stop Vitamin E, fish oil, Ginko, [place]'s Wort, flax seed oil, multivitamins, CBD oil, marijuana and other over the counter herbals and dietary supplements 7 days before surgery. This would not apply to cancer patients who are prescribed Marinol or any other prescription form of marijuana or CBD. If you are taking Phentermine please hold 4 days prior to surgery. Diabetes Medications Do not take the morning of surgery; Trajenta, Metformin, Actos/Pioglitazone and Amaryl/Glimepiride. For the following Medications, please HOLD 2 DAYS PRIOR TO SURGERY: Glucotrol/Glipizide, Januvia/Sitagliptin, Glyburide, Prandin/Repaglinide, Starlix/Nateglinide, Symlin/Pramlintide, For the following Medications, please HOLD 3 DAYS PRIOR TO SURGERY: Canagliflozin/Invokana, Dapagliflozin/Farxiga ,Empagliflozin/Jardiance, Invokamet/canagliflozin and metformin, Xigduo XR/ dapagliglozin and metformin, Glyxambi/ empagliflozin and metformin, Syndardy/ empagliflozin and metformin For the following Medications, please HOLD 4 DAYS PRIOR TO SURGERY: Ertugliflozin/Steglatro For the following Medications, please HOLD 7 DAYS PRIOR TO SURGERY: GLP-1 AGONIST: Adlyxin (lixisenatide), Bydureon BCise (exenatide suspension), Byetta (exenatide), Mounjaro (tirzepatide), Ozempic (semaglutide injection), Rybelsus (semaglutide tablets), Tanzeum (albiglutide), Trulicity (dulaglutide), Victoza (liraglutide), Wegovy (semaglutide), Saxenda (liraglutide) Insulin Medication Instructions: Please follow up with the provider that manages your Insulin and how to prepare you for surgery. Pain medications Approved pain medications can be taken the morning of surgery with a sip of water. If you start any new medications after today's visit, please contact the surgeon's office. Important Reminders: - If you use CPAP/BIPAP, bring the machine with you to the hospital if you are scheduled to stay over night. - If you are prescribed inhalers for breathing, continue using them AND bring them to the surgery center. - Candy, mints, gum and tobacco products are NOT permitted the morning of surgery. - Hearing aids, dentures and glasses may be worn the morning of surgery. - NO jewelry, body piercings, makeup, hairpins or contacts are to be worn the day of surgery. - NO lotion, creams, powders or deodorants on the skin the day of surgery - You will need to have someone else (Family or friend) drive you home once discharged from the hospital. You cannot take a cab or Uber. You are not allowed to drive yourself home after surgery. -You will need an adult(over the age of 18) to stay with you for the first 24 hours post surgery or your surgery may be cancelled. Please speak with your surgeon if this is an issue. If you develop symptoms such as a fever, cold, or flu, or have other changes to your health within TWO DAYS of scheduled surgery or the morning of surgery, please contact the surgery center above. Personal Belongings: - Leave ALL valuables and money at home or with family members. - You will need a form of ID and insurance card to check in the morning of surgery. - You will have to wear a hospital gown during your stay but if you wish to bring undergarments for after surgery you may. -If you do not have a copy of advance directives on file with us, please bring a copy with you on the day of surgery. If you already have an Advance Directive, please fax a copy to [phone] or email to for it to be added to your chart. If you do not have an Advance Directive, you can find the appropriate form and more information at [email or web address]. We recommend that you complete the Advance Directive form found on the website and bring it with you the day of your surgery. It can be witnessed and scanned into your chart that day. Please note-you should have a 72-hour period between getting your vaccine and date of surgery - If you have a stimulator, implant or pump that requires a remote please bring the remote with you day of surgery Mulugeta Valerio APRN.HOUSEKEEPING ASSISTANT documented in this encounter [facility] 08-27-2024 Note Education (DINAH) GASPER REED ([id number]) 1950 F Date Time Provider Department 08/27/24 ESTUARDO LONG [facility] Reason for Visit: Patient Education [91] During your visit today, we recorded the following information about you: Allergies As of Date: 08/27/2024 Noted Allergy Reaction ERYTHROMYCIN 02/09/2008 6 - Diarrhea 8 - GI Upset Comments: Abdominal cramping PENICILLINS 02/09/2008 16 - Unknown Date Reviewed: 08/27/2024 Reviewed by: Woehler, Mulugeta L, MATERIALS MANAGEMENT MANAGER.HOUSEKEEPING ASSISTANT - Fully Assessed Prescriptions as of 08/27/2024 - metroNIDAZOLE (FLAGYL) 500 mg tablet Take two tabs by mouth at 1pm, 3pm, and 11pm the day prior to surgery. - neomycin 500 mg tablet Take two tabs by mouth at 1pm, 3pm, and 11pm the day prior to the surgery. - promethazine (PHENERGAN) 25 mg tablet Take 1 tab by mouth every 4 hours as needed for nausea. - lisinopril-hydroCHLOROthiazide (ZESTORETIC) 20-12.5 mg per tablet Take 1 tablet by mouth two times a day. - promethazine (PHENERGAN) 25 mg tablet Take 1 tab by mouth every 4 hours as needed for nausea. - olaparib (LYNPARZA) 100 mg tablet Take 2 tablets (200 mg) by mouth two times a day. - pantoprazole DR (PROTONIX) 40 mg tablet take 1 tablet by mouth every day - ondansetron (ZOFRAN) 8 mg tablet Take 1 tablet by mouth every 8 hours as needed for nausea/vomiting. - acetaminophen (TYLENOL) 500 mg tablet Take 2 tablets by mouth every 6 hours. - vitamin b complex capsule Take 1 capsule by mouth once daily. - oxybutynin ER (DITROPAN XL) 10 mg 24 hr tablet Take 15 mg by mouth once daily. - calcium carbonate (CALCIUM 600 ORAL) Take 1 tablet by mouth once daily. Encounter Status:Closed by ESTUARDO LONG on 08/27/24 [facility] 08-23-2024 Note HNO ID: [id number] Author: GUERRERO VILCHIS MD Service: ? 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 On olaparib since 03/2024. Current dose 200 mg bid. Managed by Dr Mccoy. Tolerating well. Occasional nausea that zofran helps. Upcoming ostomy reversal - she is excited. Weight down 4 pounds. She is a little concerned. Appetite is fine. But ostomy limits what she can eat. No pain. ROS: 14 point ROS negative unless indicated in above HPI. Oncologic history: 07/15/23: Diagnostic laparoscopy - extensive infiltration into Ball's pouch, freddy hepatis, dense scarring between liver and diaphragm due to disease infiltration. Debulking aborted. Transverse loop colostomy created. 08/09/23: C1D1 carboplatin/paclitaxel 08/30/23: C2D1 09/20/23: C3D1 10/28/23: Interval debulking surgery. Ex-lap, enterolysis, modified posterior exenterative procedure including radical hysterectomy, BSO, en bloc resection of rectosigmoid colon, bilateral temporary stents (urology). No residual disease. 01/23/24: C6D1 carboplatin/paclitaxel. 02/01/24: Completion CT MELISSA. 03/2024: olaparib started 04/25/2024: colorectal resection biopsy of omentum FINAL DIAGNOSIS A. Omentum, biopsy: - Fragments of benign fibromuscular tissue, squamous mucosa, and organizing blood clot. B. Colonic donuts, excision: - Benign colonic tissue. C. Colostomy, reversal: - Benign colostomy site. Oncology History Ovarian cancer on left (HCC) 07/27/2023 Initial Diagnosis Ovarian cancer on left (HCC) 08/09/2023 - 01/23/2024 Chemotherapy Treatment goal 2. Oncology Non-Curative Plan Name AMB PACLITAXEL 175 D1 CARBOPLATIN 6 D1 - Q21D Status Inactive Start Date 08/09/2023 End Date 01/23/2024 Provider Hiram Mccoy, DO Chemotherapy CARBOplatin 400 mg in NaCl 0.9% 315 mL (PARAPLATIN), 400 mg (100 % of original dose 415.2 mg), INTRAVENOUS, ONCE, 6 of 6 cycles Dose modification: 415.2 mg (original dose 415.2 mg, Cycle 1), 420 mg (original dose 420 mg, Cycle 2), 405 mg (original dose 405 mg, Cycle 4), 405 mg (original dose 405 mg, Cycle 3), 406.2 mg (original dose 406.2 mg, Cycle 5), 338.5 mg (original dose 338.5 mg, Cycle 6) Administration: 400 mg (08/09/2023), 400 mg (08/30/2023), 400 mg (12/06/2023), 400 mg (09/20/2023), 400 mg (12/28/2023), 338.5 mg (01/23/2024) PACLitaxel 270 mg in NaCl 0.9% 585 mL (TAXOL), 175 mg/m2 = 270 mg, INTRAVENOUS, ONCE, 6 of 6 cycles Dose modification: 135 mg/m2 (original dose 175 mg/m2, Cycle 6, Reason: 3.) Toxicity, Comment: Severe thrombocytopenia) Administration: 270 mg (08/09/2023), 270 mg (08/30/2023), 269.5 mg (12/06/2023), 269.5 mg (09/20/2023), 269.5 mg (12/28/2023), 200 mg (01/23/2024) PE: EGOG PS 1 BP 174/77 (BP Site: Right Arm, BP Position: Sitting, BP Cuff Size: Regular Adult) Pulse 94 Temp 36.5 ?C (97.7 ?F) (Oral) Wt 51.3 kg (113 lb) SpO2 100% BMI 20.67 kg/m? Gen: well-appearing, NAD, here with her daughter Lungs: unlabored breathing on Ra Abdomen: sort, Nt , no masses, stoma looks good Pelvic: no external lesion, no pelvic masses, no groin adenopathy, speculum inserted with surgically absent cervix, intact cuff, bimanual confirms smooth and intact cuff, no masses or nodularity Extremities: no edema The sensitive examination was discussed with the Patient or Patient's Authorized Apparel Sales Associate. As applicable, any other physician, advance practice provider, medical student, or other health professional student that will be observing or involved in the sensitive examination for educational or training purposes was discussed with the Patient or Authorized Apparel Sales Associate. The Patient or Authorized Apparel Sales Associate has agreed to proceed with the sensitive examination. (Sensitive examination includes inspection and/or palpation of the breasts, pelvis, prostate and anorectal regions) Labs/Imaging: A/P: This is a 72 year old with stage IVB high grade serous ovarian vs fallopian tube cancer s/p upfront treatment here for CT review and treatment planning. Ovarian/fallopian tube cancer: - Ca-125 stable. MELISSA based on exam. - Compliant and tolerating olaparib. Dr. Mccoy manages. - Reviewed CT if CA-125 climbs, change in exam or new symptom. - RTC in 3 months. Ostomy - Reversal with CRS 09/04/24 BRIP1 mutation: - Daughter tested negative - Son aware but has not tested yet - NCCN guidelines reviewed today, no evidence to suggest increase risk of breast or pancreatic cancer Guerrero Vilchis MD, MPH Gynecologic Oncologist Medical Decision Making: Problems: Moderate: 2+ stable chronic illnesses Data: Unique test result(s) reviewed: 3+ R (more content not included)... 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 On olaparib since 03/2024. Current dose 200 mg bid. Managed by Dr Mccoy. Tolerating well. Occasional nausea that zofran helps. Upcoming ostomy reversal - she is excited. Weight down 4 pounds. She is a little concerned. Appetite is fine. But ostomy limits what she can eat. No pain. ROS: 14 point ROS negative unless indicated in above HPI. Oncologic history: 07/15/23: Diagnostic laparoscopy - extensive infiltration into Ball's pouch, freddy hepatis, dense scarring between liver and diaphragm due to disease infiltration. Debulking aborted. Transverse loop colostomy created. 08/09/23: C1D1 carboplatin/paclitaxel 08/30/23: C2D1 09/20/23: C3D1 10/28/23: Interval debulking surgery. Ex-lap, enterolysis, modified posterior exenterative procedure including radical hysterectomy, BSO, en bloc resection of rectosigmoid colon, bilateral temporary stents (urology). No residual disease. 01/23/24: C6D1 carboplatin/paclitaxel. 02/01/24: Completion CT MELISSA. 03/2024: olaparib started 04/25/2024: colorectal resection biopsy of omentum FINAL DIAGNOSIS A. Omentum, biopsy: - Fragments of benign fibromuscular tissue, squamous mucosa, and organizing blood clot. B. Colonic donuts, excision: - Benign colonic tissue. C. Colostomy, reversal: - Benign colostomy site. Oncology History Ovarian cancer on left (HCC) 07/27/2023 Initial Diagnosis Ovarian cancer on left (HCC) 08/09/2023 - 01/23/2024 Chemotherapy Treatment goal 2. Oncology Non-Curative Plan Name AMB PACLITAXEL 175 D1 CARBOPLATIN 6 D1 - Q21D Status Inactive Start Date 08/09/2023 End Date 01/23/2024 Provider Hiram Mccoy, DO Chemotherapy CARBOplatin 400 mg in NaCl 0.9% 315 mL (PARAPLATIN), 400 mg (100 % of original dose 415.2 mg), INTRAVENOUS, ONCE, 6 of 6 cycles Dose modification: 415.2 mg (original dose 415.2 mg, Cycle 1), 420 mg (original dose 420 mg, Cycle 2), 405 mg (original dose 405 mg, Cycle 4), 405 mg (original dose 405 mg, Cycle 3), 406.2 mg (original dose 406.2 mg, Cycle 5), 338.5 mg (original dose 338.5 mg, Cycle 6) Administration: 400 mg (08/09/2023), 400 mg (08/30/2023), 400 mg (12/06/2023), 400 mg (09/20/2023), 400 mg (12/28/2023), 338.5 mg (01/23/2024) PACLitaxel 270 mg in NaCl 0.9% 585 mL (TAXOL), 175 mg/m2 = 270 mg, INTRAVENOUS, ONCE, 6 of 6 cycles Dose modification: 135 mg/m2 (original dose 175 mg/m2, Cycle 6, Reason: 3.) Toxicity, Comment: Severe thrombocytopenia) Administration: 270 mg (08/09/2023), 270 mg (08/30/2023), 269.5 mg (12/06/2023), 269.5 mg (09/20/2023), 269.5 mg (12/28/2023), 200 mg (01/23/2024) PE: EGOG PS 1 BP 174/77 (BP Site: Right Arm, BP Position: Sitting, BP Cuff Size: Regular Adult) Pulse 94 Temp 36.5 C (97.7 F) (Oral) Wt 51.3 kg (113 lb) SpO2 100% BMI 20.67 kg/m Gen: well-appearing, NAD, here with her daughter Lungs: unlabored breathing on Ra Abdomen: sort, Nt , no masses, stoma looks good Pelvic: no external lesion, no pelvic masses, no groin adenopathy, speculum inserted with surgically absent cervix, intact cuff, bimanual confirms smooth and intact cuff, no masses or nodularity Extremities: no edema The sensitive examination was discussed with the Patient or Patient's Authorized Apparel Sales Associate. As applicable, any other physician, advance practice provider, medical student, or other health professional student that will be observing or involved in the sensitive examination for educational or training purposes was discussed with the Patient or Authorized Apparel Sales Associate. The Patient or Authorized Apparel Sales Associate has agreed to proceed with the sensitive examination. (Sensitive examination includes inspection and/or palpation of the breasts, pelvis, prostate and anorectal regions) Labs/Imaging: A/P: This is a 72 year old with stage IVB high grade serous ovarian vs fallopian tube cancer s/p upfront treatment here for CT review and treatment planning. Ovarian/fallopian tube cancer: - Ca-125 stable. MELISSA based on exam. - Compliant and tolerating olaparib. Dr. Mccoy manages. - Reviewed CT if CA-125 climbs, change in exam or new symptom. - RTC in 3 months. Ostomy - Reversal with CRS 09/04/24 BRIP1 mutation: - Daughter tested negative - Son aware but has not tested yet - NCCN guidelines reviewed today, no evidence to suggest increase risk of breast or pancreatic cancer Guerrero Vilchis MD, MPH Gynecologic Oncologist Medical Decision Making: Problems: Moderate: 2+ stable chronic illnesses Data: Unique test result(s) reviewed: 3+ Risk: Low: Low risk from testing/treatment Medical Decision Making Level: 4 - Moderate documented in this encounter [facility] 08-15-2024 History of Present illness Narrative Radiology Service Progress Note PATIENT NAME: Gasper Reed DATE OF SERVICE: August 15, 2024 TIME: 9:56 AM PATIENT IDENTITY VERIFICATION COMPLETED USING TWO (2) IDENTIFIERS: Name and Date of confirmed by patient verbally. FALL SCREENING: Has the patient had 2 falls in the last year or 1 fall with injury or currently using an Ambulatory Assistive Device (Walker, Cane, Wheelchair, Crutches, etc.)? No PATIENT GENDER DATA: Assigned female at . status: : No status: NO. PATIENT RELEVANT IMPLANT DATA REVIEWED: Not Applicable PATIENT PRESENTS WITH AN IMPLANTABLE OR ATTACHED HEAD RIGGER: No RADIOLOGY DEPARTMENT: General X-ray: Exam(s) Completed: GI/ Procedure(s): Barium enema with water soluable contrast PERIPHERAL IV DATA: Not applicable SIGNED BY: NATY Hahn) August 15, 2024 9:56 AM documented in this encounter [facility] 08-15-2024 Note HNO ID: [id number] Author: GEOFF BALDWIN RT (R) Service: Radiology Author Type: Technologist Type: Progress Notes Filed: 08/15/2024 09:56 Note Text: Radiology Service Progress Note PATIENT NAME: Gasper Reed DATE OF SERVICE: August 15, 2024 TIME: 9:56 AM PATIENT IDENTITY VERIFICATION COMPLETED USING TWO (2) IDENTIFIERS: Name and Date of confirmed by patient verbally. FALL SCREENING: Has the patient had 2 falls in the last year or 1 fall with injury or currently using an Ambulatory Assistive Device (Walker, Cane, Wheelchair, Crutches, etc.)? No PATIENT GENDER DATA: Assigned female at . status: : No status: NO. PATIENT RELEVANT IMPLANT DATA REVIEWED: Not Applicable PATIENT PRESENTS WITH AN IMPLANTABLE OR ATTACHED HEAD RIGGER: No RADIOLOGY DEPARTMENT: General X-ray: Exam(s) Completed: GI/ Procedure(s): Barium enema with water soluable contrast PERIPHERAL IV DATA: Not applicable SIGNED BY: RT Jovani(Leanrd) August 15, 2024 9:56 AM [facility] 08-13-2024 Note [facility] 08-10-2024 Telephone encounter Note Surgery Checklist Type: COLOSTOMY REVERSAL Admission Type: inpatient Anesthesia: General Date: 09/04/24 Arrival Time: 6:00 AM Surgery Time: 8;00 AM Location: [facility] Prep sent to Zaina Gonzalez [facility] 08-10-2024 Miscellaneous Notes Surgery Checklist Type: COLOSTOMY REVERSAL Admission Type: inpatient Anesthesia: General Date: 09/04/24 Arrival Time: 6:00 AM Surgery Time: 8;00 AM Location: [facility] Prep sent to Zaina Gonzalez documented in this encounter [facility] 08-10-2024 Telephone encounter Note Called the patient and left a voice message asking the patient to call the office back to schedule her Surgery. Zaina Gonzalez [facility] 08-10-2024 Miscellaneous Notes Called the patient and left a voice message asking the patient to call the office back to schedule her Surgery. Zaina Gonzalez documented in this encounter [facility] 08-10-2024 Note HNO ID: [id number] Author: ROHIT MILES MD Service: ? Author Type: Physician Type: Progress Notes Filed: 08/10/2024 10:05 Note Text: Rohit Miles M.D. Colon AND Rectal Surgery [address] [facility], [address] [place] [id number] SUBJECTIVE Gasper Reed is a 73 year old White female s/p colostomy reversal with diverting loop colostomy in place HPI She is generally doing well, denies any abdominal pain or new chest symptoms. She is still taking MiraLAX once daily for the ostomy which does keep yet output thin enough. Good appetite with no new changes Review of Systems Constitutional: Negative for chills, fever and weight loss. HENT: Negative for congestion, ear pain, hearing loss, sinus pain and sore throat. Eyes: Negative for blurred vision, double vision and pain. Respiratory: Negative for cough, shortness of breath and wheezing. Cardiovascular: Negative for chest pain, palpitations and leg swelling. Gastrointestinal: Negative for abdominal pain, blood in stool, constipation, diarrhea, heartburn, nausea and vomiting. Genitourinary: Negative for dysuria, frequency and urgency. Musculoskeletal: Negative for back pain, joint pain and neck pain. Skin: Negative for itching and rash. Neurological: Negative for dizziness, weakness and headaches. Endo/Heme/Allergies: Negative for environmental allergies. Does not bruise/bleed easily. Psychiatric/Behavioral: Negative for depression and memory loss. The patient is not nervous/anxious and does not have insomnia. PAST MEDICAL HISTORY Diagnosis Date Arthritis Attention to colostomy (HCC) Cataract Colostomy in place (HCC) ovarian cancer, tumor leaning against bowel Essential hypertension, benign 07/25/1994 Generalized anxiety disorder Nausea and vomiting with chemotherapy and anesthesia Ovarian cancer on left (HCC) PONV (postoperative nausea and vomiting) PAST SURGICAL HISTORY Procedure Laterality Date COLOSTOMY 07/15/2023 transverse loop diverting L'SCOPE DX W/WO BRUSHINGS/WASHINGS 07/15/2023 with peritoneal biopsy LAPAROSCOPIC OMENTECTOMY 10/28/2023 LIG/TRNSXJ FLP TUBE ABDL/VAG APPR UNI/BI 07/25/1981 Tubal ligation TONSILLECTOMY AND ADENOIDECTOMY TOTAL ABDOM HYSTERECTOMY 10/28/2023 TOTAL ABDOMINAL HYSTERECT W/WO RMVL TUBE OVARY 10/28/2023 Social History Tobacco Use Smoking status: Former Current packs/day: 0.00 Types: Cigarettes Start date: 07/25/1972 Quit date: 07/25/1974 Years since quittin.0 Smokeless tobacco: Never Tobacco comments: Pt smoked an occ cigarette for 2 approx years Vaping Use Vaping status: Never Used Substance Use Topics Alcohol use: Not Currently Alcohol/week: 2.0 standard drinks of alcohol Types: 2 Glasses of Wine (5oz) per week Drug use: No FAMILY HISTORY Problem Relation Age of Onset Osteoporosis Mother smoker other (osteoarthritis) Mother Cancer Mother Coronary Artery Disease Father MA age 40's, age 60's; also smoked and alcoholic Mental illness Sister Renal Disease Sister Cancer Sister other (rheumatoid arthritis) Sister Coronary Artery Disease Brother MA age 49, smoker, recovering alcoholic Breast Cancer Paternal Grandmother late 70's Diabetes Paternal Grandfather Heart Paternal Grandfather Breast Cancer Maternal Aunt age 65 Ovarian cancer Maternal Aunt The ROS, medical, surgical, family, and social history were reviewed by Rohit Miles MD ALLERGIES Allergen Reactions Erythromycin Diarrhea, GI Upset Abdominal cramping Penicillins Unknown Current Outpatient Medications Medication Sig lisinopril-hydroCHLOROthiazide (ZESTORETIC) 20-12.5 mg per tablet Take 1 tablet by mouth two times a day. promethazine (PHENERGAN) 25 mg tablet Take 1 tab by mouth every 4 hours as needed for nausea. olaparib (LYNPARZA) 100 mg tablet Take 2 tablets (200 mg) by mouth two times a day. pantoprazole DR (PROTONIX) 40 mg tablet take 1 tablet by mouth every day ondansetron (ZOFRAN) 8 mg tablet Take 1 tablet by mouth every 8 hours as needed for nausea/vomiting. acetaminophen (TYLENOL) 500 mg tablet Take 2 tablets by mouth every 6 hours. vitamin b complex capsule Take 1 capsule by mouth once daily. oxybutynin ER (DITROPAN XL) 10 mg 24 hr tablet Take 15 mg by mouth once daily. lidocaine-prilocaine (EMLA) 2.5-2.5 % cream Apply 60 minutes prior to accessing port calcium carbonate (CALCIUM 600 ORAL) Take 1 tablet by mouth once daily. No current facility-administered medications for this visit. OBJECTIVE BP 157/80 (BP Site: Left Arm, BP Position: Sitting, BP Cuff Size: Regular Adult) Pulse 101 Ht 157.5 cm (5' 2) Wt 52 kg (114 lb 10.2 oz) BMI 20.97 kg/m? BMI 20.97 kg/(m2) Physical Exam Constitutional: General: She is not in acute distress. Appearance: Normal appearance. She is not ill-appearing. Cardiovascular: Rate and Rhythm: Normal rate and r (more content not included)... [facility] 08-10-2024 History of Present illness Narrative Images from the original note were not included. Rohit Miles M.D. Colon & Rectal Surgery [address] [facility], [address] [place] [phone] SUBJECTIVE Gasper Reed is a 73 year old White female s/p colostomy reversal with diverting loop colostomy in place HPI She is generally doing well, denies any abdominal pain or new chest symptoms. She is still taking MiraLAX once daily for the ostomy which does keep yet output thin enough. Good appetite with no new changes Review of Systems Constitutional: Negative for chills, fever and weight loss. HENT: Negative for congestion, ear pain, hearing loss, sinus pain and sore throat. Eyes: Negative for blurred vision, double vision and pain. Respiratory: Negative for cough, shortness of breath and wheezing. Cardiovascular: Negative for chest pain, palpitations and leg swelling. Gastrointestinal: Negative for abdominal pain, blood in stool, constipation, diarrhea, heartburn, nausea and vomiting. Genitourinary: Negative for dysuria, frequency and urgency. Musculoskeletal: Negative for back pain, joint pain and neck pain. Skin: Negative for itching and rash. Neurological: Negative for dizziness, weakness and headaches. Endo/Heme/Allergies: Negative for environmental allergies. Does not bruise/bleed easily. Psychiatric/Behavioral: Negative for depression and memory loss. The patient is not nervous/anxious and does not have insomnia. PAST MEDICAL HISTORY Diagnosis Date Arthritis Attention to colostomy (HCC) Cataract Colostomy in place (HCC) ovarian cancer, tumor leaning against bowel Essential hypertension, benign 07/25/1994 Generalized anxiety disorder Nausea and vomiting with chemotherapy and anesthesia Ovarian cancer on left (HCC) PONV (postoperative nausea and vomiting) PAST SURGICAL HISTORY Procedure Laterality Date COLOSTOMY 07/15/2023 transverse loop diverting L'SCOPE DX W/WO BRUSHINGS/WASHINGS 07/15/2023 with peritoneal biopsy LAPAROSCOPIC OMENTECTOMY 10/28/2023 LIG/TRNSXJ FLP TUBE ABDL/VAG APPR UNI/BI 07/25/1981 Tubal ligation TONSILLECTOMY & ADENOIDECTOMY <AGE 12 07/25/1962 TOTAL ABDOM HYSTERECTOMY 10/28/2023 TOTAL ABDOMINAL HYSTERECT W/WO RMVL TUBE OVARY 10/28/2023 Social History Tobacco Use Smoking status: Former Current packs/day: 0.00 Types: Cigarettes Start date: 07/25/1972 Quit date: 07/25/1974 Years since quittin.0 Smokeless tobacco: Never Tobacco comments: Pt smoked an occ cigarette for 2 approx years Vaping Use Vaping status: Never Used Substance Use Topics Alcohol use: Not Currently Alcohol/week: 2.0 standard drinks of alcohol Types: 2 Glasses of Wine (5oz) per week Drug use: No FAMILY HISTORY Problem Relation Age of Onset Osteoporosis Mother smoker other (osteoarthritis) Mother Cancer Mother Coronary Artery Disease Father MA age 40's, age 60's; also smoked and alcoholic Mental illness Sister Renal Disease Sister Cancer Sister other (rheumatoid arthritis) Sister Coronary Artery Disease Brother MA age 49, smoker, recovering alcoholic Breast Cancer Paternal Grandmother late 70's Diabetes Paternal Grandfather Heart Paternal Grandfather Breast Cancer Maternal Aunt age 65 Ovarian cancer Maternal Aunt The ROS, medical, surgical, family, and social history were reviewed by Rohit Miles MD ALLERGIES Allergen Reactions Erythromycin Diarrhea, GI Upset Abdominal cramping Penicillins Unknown Current Outpatient Medications Medication Sig lisinopril-hydroCHLOROthiazide (ZESTORETIC) 20-12.5 mg per tablet Take 1 tablet by mouth two times a day. promethazine (PHENERGAN) 25 mg tablet Take 1 tab by mouth every 4 hours as needed for nausea. olaparib (LYNPARZA) 100 mg tablet Take 2 tablets (200 mg) by mouth two times a day. pantoprazole DR (PROTONIX) 40 mg tablet take 1 tablet by mouth every day ondansetron (ZOFRAN) 8 mg tablet Take 1 tablet by mouth every 8 hours as needed for nausea/vomiting. acetaminophen (TYLENOL) 500 mg tablet Take 2 tablets by mouth every 6 hours. vitamin b complex capsule Take 1 capsule by mouth once daily. oxybutynin ER (DITROPAN XL) 10 mg 24 hr tablet Take 15 mg by mouth once daily. lidocaine-prilocaine (EMLA) 2.5-2.5 % cream Apply 60 minutes prior to accessing port calcium carbonate (CALCIUM 600 ORAL) Take 1 tablet by mouth once daily. No current facility-administered medications for this visit. OBJECTIVE BP 157/80 (BP Site: Left Arm, BP Position: Sitting, BP Cuff Size: Regular Adult) Pulse 101 Ht 157.5 cm (5' 2) Wt 52 kg (114 lb 10.2 oz) BMI 20.97 kg/m BMI 20.97 kg/(m^2) Physical Exam Constitutional: General: She is not in acute distress. Appearance: Normal appearance. She is not ill-appearing. Cardiovascular: Rate and Rhythm: Normal rate and regular rhythm. Heart sounds: Normal heart sounds. No murmur heard. No friction rub. No gallop. Pulmonary: Effort: Pulmonary effort is normal. No respiratory distress. Breath sounds: Normal breath sounds. No wheezing or rales. Abdominal: General: There is no distension. Palpations: Abdomen is soft. There is no hepatomegaly. Tenderness: There is no abdominal tenderness. Comments: Stoma is pink and healthy with thick stool in the bag Musculoskeletal: General: No deformity. Normal range of motion. Skin: General: Skin is warm and dry. Findings: No rash. Neurological: Mental Status: She is alert. Coordination: Coordination normal. Gait: Gait normal. Psychiatric: Mood and Affect: Mood normal. Judgment: Judgment normal. Hemoglobin (g/dL) Date Value 08/03/2024 9.3 Hematocrit (%) Date Value 08/03/2024 27.5 WBC (k/uL) Date Value 08/03/2024 5.44 Platelet Count (k/uL) Date Value 08/03/2024 175 Creatinine Date Value Ref Range Status 08/03/2024 1.25 (H) 0.58 - 0.96 mg/dL Final AST Date Value Ref Range Status 08/03/2024 22 13 - 35 U/L Final ALT Date Value Ref Range Status 08/03/2024 18 7 - 38 U/L Final Bilirubin, Total (mg/dL) Date Value 08/03/2024 0.7 Antibody Screen (no units) Date Value 10/20/2023 Negative WBC (k/uL) Date Value 08/03/2024 5.44 RBC (m/uL) Date Value 08/03/2024 2.51 (L) %DIG,%DBS Plan ASSESSMENT/PLAN: 1. Attention to colostomy (HCC) - ICD9: V55.3, ICD10: Z43.3 - XR COLON SINGLE CONTRAST We will order an XR colon study and set this up in the near future and then after this could look a date for reversal of loop colostomy. We will do the enhanced recovery protocol. INFORMED CONSENT Gasper Allyson Reed Medical Record: [id number] Date: 08/10/2024 Procedure: Reversal of loop colostomy The risks, benefits and anticipated outcomes of the procedure, the risks and benefits of the alternatives to the procedure and the roles and tasks of the personnel to be involved were discussed with the patient and the patient consents to the procedure and agrees to proceed. I verify that I personally obtained Gasper Reed's consent. Rohit Miles MD Dept of [facility] Follow up: Return for Surgery. Rohit Miles M.D. Please Note: This office note has been created using [employer], a speech recognition software program, and may contain errors including punctuation, grammar, spelling, gender, and inappropriate words or phrases that pertain to the sytem. documented in this encounter [facility] 08-03-2024 Note [facility] 08-03-2024 History of Present illness Narrative Oncologic problem(s): 1) Serous carcinoma of the left ovary. HPI: The patient is a 73-year-old female with a past medical history significant for hypertension and rheumatoid arthritis. Presented to the ED at [facility] on 07/10/2023 with complaints of nausea and vomiting that started approximately 24 hours before presentation. This was accompanied with diarrhea. She been having intermittent abdominal pain for a couple months. Approximate 10 pound weight loss. Evidently underwent colonoscopy in March that demonstrated a constricted colon. CT A/P 07/10/2023: LOWER THORAX: Normal. Lung bases are clear. No cardiomegaly. No pericardial effusion. ABDOMEN: LIVER: Stable 12 mm lesion within hepatic segment 7 and 14 mm lesion within hepatic segment 3 suggestive of hemangiomata. PANCREAS: Normal. No focal cystic or solid mass. SPLEEN: Normal. Normal size without focal cystic or solid mass. ADRENALS: Normal. No nodules. KIDNEYS AND URETERS: Normal. Normal renal size and position. No hydronephrosis. STOMACH AND BOWEL: Multiple dilated thick-walled small bowel loops noted within the lower abdomen. There is fluid distention of the ascending and transverse colon. Prominent wall thickening of the sigmoid colon. PELVIS: APPENDIX: Appendix is visualized and normal in appearance. BLADDER: Normal. REPRODUCTIVE: 4.8 cm left adnexal cystic mass has significantly increased in size from prior study raising possibility of underlying cystic ovarian neoplasm. ABDOMEN and PELVIS: INTRAPERITONEAL SPACE: Interval development of moderate volume ascites. No free air. BONES/JOINTS: No suspicious lytic or blastic abnormality. SOFT TISSUES: Normal. No discrete abdominal or pelvic wall hernia. VASCULATURE: Normal. Abdominal aorta is non-dilated. LYMPH NODES: Interval enlargement of the retroperitoneal lymph nodes adjacent to the aorta and inferior vena cava raising possibility of metastatic disease. IMPRESSION: 1. Interval enlargement of complex cystic left adnexal mass which may represent ovarian neoplasm. 2. Interval development of moderate volume ascites. 3. Multiple thick-walled loops of large and small bowel consistent with inflammatory bowel disease. 4. Enlarging retroperitoneal lymph nodes which may represent metastatic disease. She was transferred to [facility] for gynecologic oncology surgery. Underwent diagnostic laparoscopy with peritoneal biopsy along with transverse loop diverting colostomy on 07/15/2023. Patient was found to have carcinomatosis with diffuse disease on right and left diaphragm. There were dense adhesions between liver immediately lateral to the falciform and diaphragm. Tumor infiltration of the falciform and freddy hepatis was observed. Pelvis was not visualized due to multiple loops of small bowel that were adherent to the pelvis. There was a plaque of tumor overlying the bladder peritoneum. Unable to visualize ovarian masses due to small bowel adherent to the sigmoid colon. Diffuse thickening of the paracolic gutter peritoneum was observed. There was thickened omentum without obvious implants including supracolic omentum with decreased mobility of transverse colon. 1000 cc of murky green ascites was aspirated. Biopsies were obtained of the peritoneal implants. 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 See comment. Identical morphologic features are noted within the present, peritoneal specimen that are found within the recent abdominal fluid cytology specimen, [id number]. Confirmatory immunohistochemistry was performed on the cytology specimen supporting a diagnosis of serous carcinoma. Per initial consultation here: Appetite okay--small meals. Taking Zofran regularly. Small amount reflux--TUMS prn. Ostomy working well. Pain improved. Previous therapy: 1) Neoadjuvant chemotherapy with paclitaxel and carboplatin x3 cycles. 2) Exploratory laparotomy, lysis of adhesions, total abdominal hysterectomy, bilateral salpingo-oophorectomy with en block rectosigmoid resection, cystoscopy and temporary bilateral ureteral stents (urology) on 10/28/23. Pathology: A. Uterus, cervix with right fallopian tube and ovary, total abdominal hysterectomy with right salpingo-oophorectomy: -- Ovary: Involved by high-grade serous carcinoma, status post neoadjuvant chemotherapy, see comment and case summary. -- Fallopian tube: Involved by high-grade serous carcinoma, see comment. -- Endometrium: Atrophic endometrium. -- Myometrium: No significant histopathologic abnormalities. -- Serosa: Involved by high-grade serous carcinoma. -- Cervix: Outer part of the cervical stroma focally involved by carcinoma. -- Vessels with medial calcific sclerosis. B. Rectosigmoid colon and left ovary and fallopian tube, low anterior colon resection and left salpingo-oophorectomy: -- Ovary: Involved by high-grade serous carcinoma with adhesions to the colonic wall. -- Fallopian tube: No fallopian tube identified grossly or microscopically. -- Colon: High-grade serous carcinoma invades through muscularis propria into the submucosa, see comment. -- Metastatic carcinoma in two out of four lymph nodes (2 mi/4), biggest deposit 0.8 mm, see comment. -- Isolated tumor cells in one out of four lymph nodes (ITCs/1). -- Soft tissue attached to the lymph nodes involved by high-grade serous carcinoma. SPECIMEN Procedure Total hysterectomy and bilateral salpingo-oophorectomy Low anterior colon resection Specimen Integrity Right Ovary Integrity Capsule intact Specimen Integrity Left Ovary Integrity Capsule intact Specimen Integrity Right Fallopian Tube Integrity Serosa intact Uterus Integrity Intact TUMOR Tumor Site Bilateral ovaries Tumor Size Greatest Dimension (Centimeters): 5.2 cm Histologic Type High grade serous carcinoma Histologic Grade High grade Ovarian Surface Involvement Present, right and left Fallopian Tube Surface Involvement Present, right Other Tissue / Organ Involvement Right fallopian tube Pelvic peritoneum Sigmoid colon Peritoneal / Ascitic Fluid Involvement Not submitted / unknown Chemotherapy Response Score (CRS) Cannot be determined: No omentum submitted REGIONAL LYMPH NODES Regional Lymph Node Status Tumor present in regional lymph node(s) Number of Nodes with Metastasis Greater than 10 mm 0 Number of Nodes with Metastasis 10 mm or Less (excluding isolated tumor cells) 2 Lanny Site(s) with Tumor Pericolonic lymph nodes Size of Largest Lanny Metastatic Deposit At least: 0.8 mm Location of Largest Lanny Metastatic Deposit Pericolonic lymph nodes Number of Lymph Nodes Examined 4 Lanny Site(s) Examined Pericolonic lymph nodes pTNM CLASSIFICATION (AJCC 8th Edition) Reporting of pT, pN, and (when applicable) pM categories is based on information available to the pathologist at the time the report is issued. As per the AJCC (Chapter 1, 8th Ed.) it is the managing physician s responsibility to establish the final pathologic stage based upon all pertinent information, including but potentially not limited to this pathology report. Modified Classification y pT Category pT3a pN Category pN1a FIGO STAGE FIGO Stage IIIA1(i) She required a platelet transfusion after cycle #5 for a platelet rafa count of 14,000. Current therapy: 1) Lynparza. Started early March 2024. Presents for ongoing oncologic management. Interim history: Occasional nausea--not even once a week. Doesn't feel need for anti-emetic. Not significantly fatigued. Bed at 10:30 pm and gets a good night's sleep. Hasn't napped in over a month. No diarrhea. No abdominal pain. Home BP--systolic consistently under 130 mmHg. PAST MEDICAL HISTORY Diagnosis Date Arthritis Attention to colostomy (HCC) Cataract Colostomy in place (HCC) ovarian cancer, tumor leaning against bowel Essential hypertension, benign 07/25/1994 Generalized anxiety disorder Nausea and vomiting with chemotherapy and anesthesia Ovarian cancer on left (HCC) PONV (postoperative nausea and vomiting) PAST SURGICAL HISTORY Procedure Laterality Date COLOSTOMY 07/15/2023 transverse loop diverting L'SCOPE DX W/WO BRUSHINGS/WASHINGS 07/15/2023 with peritoneal biopsy LAPAROSCOPIC OMENTECTOMY 10/28/2023 LIG/TRNSXJ FLP TUBE ABDL/VAG APPR UNI/BI 07/25/1981 Tubal ligation TONSILLECTOMY & ADENOIDECTOMY <AGE 12 07/25/1962 TOTAL ABDOM HYSTERECTOMY 10/28/2023 TOTAL ABDOMINAL HYSTERECT W/WO RMVL TUBE OVARY 10/28/2023 ALLERGIES Allergen Reactions Erythromycin Diarrhea, GI Upset Abdominal cramping Penicillins Unknown Current Outpatient Medications Medication Sig lisinopril-hydroCHLOROthiazide (ZESTORETIC) 20-12.5 mg per tablet Take 1 tablet by mouth two times a day. promethazine (PHENERGAN) 25 mg tablet Take 1 tab by mouth every 4 hours as needed for nausea. olaparib (LYNPARZA) 100 mg tablet Take 2 tablets (200 mg) by mouth two times a day. pantoprazole DR (PROTONIX) 40 mg tablet take 1 tablet by mouth every day ondansetron (ZOFRAN) 8 mg tablet Take 1 tablet by mouth every 8 hours as needed for nausea/vomiting. acetaminophen (TYLENOL) 500 mg tablet Take 2 tablets by mouth every 6 hours. vitamin b complex capsule Take 1 capsule by mouth once daily. oxybutynin ER (DITROPAN XL) 10 mg 24 hr tablet Take 15 mg by mouth once daily. lidocaine-prilocaine (EMLA) 2.5-2.5 % cream Apply 60 minutes prior to accessing port calcium carbonate (CALCIUM 600 ORAL) Take 1 tablet by mouth once daily. No current facility-administered medications for this visit. Social History Tobacco Use Smoking status: Former Current packs/day: 0.00 Types: Cigarettes Start date: 07/25/1972 Quit date: 07/25/1974 Years since quittin.0 Smokeless tobacco: Never Tobacco comments: Pt smoked an occ cigarette for 2 approx years Vaping Use Vaping status: Never Used Substance Use Topics Alcohol use: Not Currently Alcohol/week: 2.0 standard drinks of alcohol Types: 2 Glasses of Wine (5oz) per week Drug use: No Family history: Father-hypertension Maternal aunt--Breast cancer in her 60s. PGM--Breast cancer in her 80s. Mother-- of metastatic cancer at age 80. Sister--Larynx cancer. ROS: Constitutional: No fever. No drenching night sweats. Neuro: No recent PERAZA, vertigo, dizziness or imbalance. HEENT: No recent change in voice, vision or hearing. Resp: No cough, wheeze of hemoptysis. No shortness of breath at rest. CVS: No exertional chest pain, PND or orthopnea. No extremity swelling/edema. No symptoms of claudication. No painful or tender varicose veins. GI: See above. : No dysuria or gross hematuria. No symptoms of bladder outlet obstruction. Endo: No hot flashes. No polyuria or polydipsia. No heat or cold intolerance. Musculoskeletal: Diagnosed with RA 2015. Hip pain. Controlled with Plaquenil. Derm: No current rash. No history of jaundice. No diffuse pruritis. Heme: No unusual bleeding and unexplained bruising. Psych: Normal mood. PHYSICAL EXAM: Vitals: Blood pressure 172/74, pulse 80, temperature 36.4 C (97.6 F), temperature source Temporal, weight 52.4 kg (115 lb 8 oz), SpO2 100%. Well-appearing and in no acute distress. EYES: Sclerae are anicteric bilaterally. LYMPHATIC: There is no palpable cervical, supraclavicular, axillary adenopathy. RESPIRATORY: Inspiratory breath sounds are of normal intensity in all dominguez. No rales, wheezes or rhonchi. Expiratory phase is normal. CARDIOVASCULAR: Rhythm is regular. ABDOMEN: The abdomen is nondistended. Ostomy appears healthy. SKIN: No jaundice. 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 -Presented with partial large bowel obstruction status post transverse loop diverting colostomy. Not able to undergo upfront debulking surgery. -Tolerated carboplatin and paclitaxel very well overall. 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 -White coat HTN. -Tolerating Lynparza very well. -Anemia is from Lynparza and is stable. Previously ruled out other causes of macrocytic anemia. -Discussed plan for continued therapy and imaging as indicated by CA125 trend. Plan: -Continue Lynparza current dose. -CBC monthly. -OV with CBC/CMP/CA125 in about 3 months. Portions of this documentation were copied and pasted from my previous office visit note dated 05/03/2024 in order to provide a cohesive continuity of the history. The note has been reviewed and edited and updated as necessary. Hiram Mccoy DO documented in this encounter [facility] 07-19-2024 History of Present illness Narrative [facility] Refill Assessment Medication(s): Lynparza Patient's current medication list and adherence status to current therapy were reviewed by Specialty Pharmacy clinical pharmacist to identify any new drug interactions or non-compliance to therapy. Therapy continues to be appropriate for disease, patient response, and medical condition. Verification of therapeutic benefit and effectiveness with current therapy was completed. Adverse events, barriers in adherence, and side effects were assessed and addressed if applicable. Will proceed with refill with no changes in therapy - patient progressing towards achieving therapeutic goals based on medication-specific laboratory parameters, disease state markers and outcomes. Office/provider notes have been reviewed prior to dispensing the medication. 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 Patient confirmed: Yes Med/dose confirmed: Yes Supplies needed: No supplies needed Missed doses: No Estimated days supply on hand: 10 Copay amount: 0 Delivery method: FedEx Signature required: Waived on patient request Delivery address: [id number] [address] Delivery date: 07/24/24 Questions or concerns for the pharmacist?: No Did you have any side effects believed to be related to this medication, that resulted in hospitalization?: No Current Outpatient Medications on File Prior to Visit Medication Sig lisinopril-hydroCHLOROthiazide (ZESTORETIC) 20-12.5 mg per tablet promethazine (PHENERGAN) 25 mg tablet Take 1 tab by mouth every 4 hours as needed for nausea. olaparib (LYNPARZA) 100 mg tablet Take 2 tablets (200 mg) by mouth two times a day. pantoprazole DR (PROTONIX) 40 mg tablet take 1 tablet by mouth every day ondansetron (ZOFRAN) 8 mg tablet Take 1 tablet by mouth every 8 hours as needed for nausea/vomiting. acetaminophen (TYLENOL) 500 mg tablet Take 2 tablets by mouth every 6 hours. vitamin b complex capsule Take 1 capsule by mouth once daily. oxybutynin ER (DITROPAN XL) 10 mg 24 hr tablet Take 15 mg by mouth once daily. lidocaine-prilocaine (EMLA) 2.5-2.5 % cream Apply 60 minutes prior to accessing port calcium carbonate (CALCIUM 600 ORAL) Take 1 tablet by mouth once daily. No current facility-administered medications on file prior to visit. 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 Administration: Administer approximately every 12 hours with or without food. Swallow tablets whole - Nausea and vomiting were reported more frequently when olaparib was administered in a fasted state. Administering olaparib after a small meal or snack may help alleviate potential nausea and vomiting - Avoid grapefruit, grapefruit juice, [place] oranges, or [place] orange juice Warnings: - Hypersensitivity - Pulmonary toxicity - Secondary malignancy - Thromboembolic events Side Effects: include but are not limited to - Abdominal pain - Constipation/diarrhea - Nausea/Vomiting - Anemia - Fatigue - PERAZA - Myalgia Emetic potential: Moderate to high emetic risk (>30% frequency of emesis) - NCCN. Antiemetic is recommended. Zofran is on medication list Monitoring: - CBC at baseline and monthly thereafter, or as clinically indicated - Renal function - Signs/symptoms of venous thrombosis, pulmonary embolism, and pneumonitis - Adherence Drug-Drug Interactions: none Baseline: - CrCl 36 mL/min - Hgb 9.3 - Plt 137 - ANC2.81 Est. Tx Plan Start Date: No information available Estimated Start Date Info: Per Dr. Mccoy's discretion Est. Estimated Treatment Duration: Until disease progression or unacceptable toxicity Alexandra Weber documented in this encounter [facility] 07-19-2024 Note [facility] 07-19-2024 Telephone encounter Note Will initiate prior auth after 07/25/2024, one insurance is active. Victorina Rebolledo LPN [facility] 07-19-2024 Miscellaneous Notes Will initiate prior auth after 07/25/2024, one insurance is active. Victorina Rebolledo LPN Ran is calling to let office know patient will be changing insurances as of 07/25/2024, new [place] has been entered with start date of 07/25/2024 [facility] set to terminate on 07/24/2024, [place] [employer]age PPO will be new plan 07/25/2024 with Member ID of [id number]. He is stating we will need to gather a new prior auth for Lynparza medication. Melodie's prior auth number is . documented in this encounter [facility] 07-13-2024 Telephone encounter Note Ran is calling to let office know patient will be changing insurances as of 07/25/2024, new [place] has been entered with start date of 07/25/2024 [facility] set to terminate on 07/24/2024, [place] [employer]age PPO will be new plan 07/25/2024 with Member ID of [id number]. He is stating we will need to gather a new prior auth for Lynparza medication. Melodie's prior auth number is . [facility] 06-20-2024 History of Present illness Narrative [facility] Refill Assessment Medication(s): Lynparza Patient's current medication list and adherence status to current therapy were reviewed by Specialty Pharmacy clinical pharmacist to identify any new drug interactions or non-compliance to therapy. Therapy continues to be appropriate for disease, patient response, and medical condition. Verification of therapeutic benefit and effectiveness with current therapy was completed. Adverse events, barriers in adherence, and side effects were assessed and addressed if applicable. Will proceed with refill with no changes in therapy - patient progressing towards achieving therapeutic goals based on medication-specific laboratory parameters, disease state markers and outcomes. Office/provider notes have been reviewed prior to dispensing the medication. 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 Patient confirmed: Yes Med/dose confirmed: Yes Supplies needed: No supplies needed Missed doses: No Estimated days supply on hand: 7 Copay amount: 0 Delivery method: FedEx Signature required: Waived on patient request Delivery address: [address] [place] [id number] Delivery date: 06/26/24 Questions or concerns for the pharmacist?: No Did you have any side effects believed to be related to this medication, that resulted in hospitalization?: No Current Outpatient Medications on File Prior to Visit Medication Sig lisinopril-hydroCHLOROthiazide (ZESTORETIC) 20-12.5 mg per tablet promethazine (PHENERGAN) 25 mg tablet Take 1 tab by mouth every 4 hours as needed for nausea. olaparib (LYNPARZA) 100 mg tablet Take 2 tablets (200 mg) by mouth two times a day. pantoprazole DR (PROTONIX) 40 mg tablet take 1 tablet by mouth every day ondansetron (ZOFRAN) 8 mg tablet Take 1 tablet by mouth every 8 hours as needed for nausea/vomiting. acetaminophen (TYLENOL) 500 mg tablet Take 2 tablets by mouth every 6 hours. vitamin b complex capsule Take 1 capsule by mouth once daily. oxybutynin ER (DITROPAN XL) 10 mg 24 hr tablet Take 15 mg by mouth once daily. lidocaine-prilocaine (EMLA) 2.5-2.5 % cream Apply 60 minutes prior to accessing port calcium carbonate (CALCIUM 600 ORAL) Take 1 tablet by mouth once daily. No current facility-administered medications on file prior to visit. 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 Administration: Administer approximately every 12 hours with or without food. Swallow tablets whole - Nausea and vomiting were reported more frequently when olaparib was administered in a fasted state. Administering olaparib after a small meal or snack may help alleviate potential nausea and vomiting - Avoid grapefruit, grapefruit juice, [place] oranges, or [place] orange juice Warnings: - Hypersensitivity - Pulmonary toxicity - Secondary malignancy - Thromboembolic events Side Effects: include but are not limited to - Abdominal pain - Constipation/diarrhea - Nausea/Vomiting - Anemia - Fatigue - PERAZA - Myalgia Emetic potential: Moderate to high emetic risk (>30% frequency of emesis) - NCCN. Antiemetic is recommended. Zoan is on medication list Monitoring: - CBC at baseline and monthly thereafter, or as clinically indicated - Renal function - Signs/symptoms of venous thrombosis, pulmonary embolism, and pneumonitis - Adherence Drug-Drug Interactions: none Baseline: - CrCl 36 mL/min - Hgb 9.3 - Plt 137 - ANC2.81 Est. Tx Plan Start Date: No information available Estimated Start Date Info: Per Dr. Mccoy's discretion Est. Estimated Treatment Duration: Until disease progression or unacceptable toxicity Alexandra Weber documented in this encounter [facility] 06-20-2024 Note [facility] 06-04-2024 Telephone encounter Note Spoke with patient and scheduled as directed. Debra Solorzano [facility] 06-04-2024 Miscellaneous Notes Spoke with patient and scheduled as directed. Debra Solorzano PSS- please contact patient to schedule a CBC in one month. Victorina Rebolledo LPN documented in this encounter [facility] 06-04-2024 Telephone encounter Note PSS- please contact patient to schedule a CBC in one month. Victorina Rebolledo LPN [facility] 06-01-2024 Note [facility] 06-01-2024 History of Present illness Narrative Patient is here for IVAD port flush/blood draw per [facility] [place] protocol. IVAD is located in right upper chest. Site cleansed with Chloraprep IVAD accessed with a #20 gauge 3/4 non-coring Gripper needle Flush with 5cc's Normal Saline. Blood Return: Good. 10 cc's blood aspirated and discarded. Blood drawn for CBC and CMP. Flushed with: 20 ml Normal Saline. Non-coring needle removed. Paper tape applied to puncture site. Site negative for redness, edema or tenderness. Patient tolerated procedure well. documented in this encounter [facility] 05-28-2024 Telephone encounter Note [facility] [employer] ONE MONTH FOLLOW UP PHONE CALL PHONE CALL DATE: 05/28/2024 PHONE CALL TIME: 2:10 PM DATE OF SURGERY: 04/24/2024 PROCEDURE: Colostomy reversal and creation of new loop colostomy FOLLOW UP QUESTIONS: Is your appetite gradually improving? Yes Is your incision healing well? Yes Is your ostomy functioning without issues? Yes Did you have a good experience with your recent hospital stay? Yes Have you completed your follow up visit with your surgeon? Yes Patient states she's feeling well. She has no concerns at this time. Encouraged to call MD for questions/concerns. SIGNATURE: Estuardo Long RN DATE: 05/28/2024 TIME: 2:10 PM CONTACT #:[phone] [facility] 05-28-2024 Miscellaneous Notes [facility] [employer] ONE MONTH FOLLOW UP PHONE CALL PHONE CALL DATE: 05/28/2024 PHONE CALL TIME: 2:10 PM DATE OF SURGERY: 04/24/2024 PROCEDURE: Colostomy reversal and creation of new loop colostomy FOLLOW UP QUESTIONS: Is your appetite gradually improving? Yes Is your incision healing well? Yes Is your ostomy functioning without issues? Yes Did you have a good experience with your recent hospital stay? Yes Have you completed your follow up visit with your surgeon? Yes Patient states she's feeling well. She has no concerns at this time. Encouraged to call MD for questions/concerns. 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 On olaparib since 03/2024. Current dose [address] mg bid. Managed by Dr Mccoy. Tolerating well. Occasional nausea that zofran helps. Has ostomy. Had surgery 04/24/[address] Miles for colostomy reversal was unable to do at that time. Colorectal anastomosis was done Biopsies taken neg for cancer. Will reconsider reversal in a few months. Recovering well. Energy improving. No issues with ostomy. Managing well. No pain or bloating. Appetite good. Last Ct 01/2024 MELISSA ROS: 14 point ROS negative unless indicated in above HPI. Oncologic history: 07/15/23: Diagnostic laparoscopy - extensive infiltration into Ball's pouch, freddy hepatis, dense scarring between liver and diaphragm due to disease infiltration. Debulking aborted. Transverse loop colostomy created. 08/09/23: C1D1 carboplatin/paclitaxel 08/30/23: C2D1 09/20/23: C3D1 10/28/23: Interval debulking surgery. Ex-lap, enterolysis, modified posterior exenterative procedure including radical hysterectomy, BSO, en bloc resection of rectosigmoid colon, bilateral temporary stents (urology). No residual disease. 01/23/24: C6D1 carboplatin/paclitaxel. 02/01/24: Completion CT MELSISA. 03/2024: olaparib started 04/25/2024: colorectal resection biopsy of omentum FINAL DIAGNOSIS A. Omentum, biopsy: - Fragments of benign fibromuscular tissue, squamous mucosa, and organizing blood clot. B. Colonic donuts, excision: - Benign colonic tissue. C. Colostomy, reversal: - Benign colostomy site. Oncology History Ovarian cancer on left (HCC) 07/27/2023 Initial Diagnosis Ovarian cancer on left (HCC) 08/09/2023 - Chemotherapy Treatment goal 2. Oncology Non-Curative Plan Name AMB PACLITAXEL 175 D1 CARBOPLATIN 6 D1 - Q21D Status Active Start Date 08/09/2023 End Date 01/23/2024 Provider Hiram Mccoy, DO Chemotherapy CARBOplatin 400 mg in NaCl 0.9% 315 mL (PARAPLATIN), 400 mg (100 % of original dose 415.2 mg), INTRAVENOUS, ONCE, 6 of 6 cycles Dose modification: 415.2 mg (original dose 415.2 mg, Cycle 1), 420 mg (original dose 420 mg, Cycle 2), 405 mg (original dose 405 mg, Cycle 4), 405 mg (original dose 405 mg, Cycle 3), 406.2 mg (original dose 406.2 mg, Cycle 5), 338.5 mg (original dose 338.5 mg, Cycle 6) Administration: 400 mg (08/09/2023), 400 mg (08/30/2023), 400 mg (12/06/2023), 400 mg (09/20/2023), 400 mg (12/28/2023), 338.5 mg (01/23/2024) PACLitaxel 270 mg in NaCl 0.9% 585 mL (TAXOL), 175 mg/m2 = 270 mg, INTRAVENOUS, ONCE, 6 of 6 cycles Dose modification: 135 mg/m2 (original dose 175 mg/m2, Cycle 6, Reason: 3.) Toxicity, Comment: Severe thrombocytopenia) Administration: 270 mg (08/09/2023), 270 mg (08/30/2023), 269.5 mg (12/06/2023), 269.5 mg (09/20/2023), 269.5 mg (12/28/2023), 200 mg (01/23/2024) PE: EGOG PS 1 BP 189/76 (BP Site: Right Arm, BP Position: Sitting, BP Cuff Size: Regular Adult) Pulse 62 Temp 36.7 C (98 F) (Oral) Wt 52.6 kg (116 lb) SpO2 98% BMI 21.22 kg/m Gen: well-appearing, NAD, here with her daughter Lungs: unlabored breathing on Ra Abdomen: sort, Nt , no masses, stoma looks good Pelvic: no external lesion, no pelvic masses, no groin adenopathy Extremities: no edema The sensitive examination was discussed with the Patient or Patient's Authorized Apparel Sales Associate. As applicable, any other physician, advance practice provider, medical student, or other health professional student that will be observing or involved in the sensitive examination for educational or training purposes was discussed with the Patient or Authorized Apparel Sales Associate. The Patient or Authorized Apparel Sales Associate has agreed to proceed with the sensitive examination. (Sensitive examination includes inspection and/or palpation of the breasts, pelvis, prostate and anorectal regions) Labs/Imagin05/07/2024: CBC, CMP reviewed in [facility] 05/03/2024: Ca125 97 up from 23 04/05/2024 A/P: This is a 72 year old with stage IVB high grade serous ovarian vs fallopian tube cancer s/p upfront treatment here for CT review and treatment planning. Ovarian/fallopian tube cancer: - Completion CT negative/MELISSA. Ca-125 reflects this. - Germline BRIP mutation - on olaparib. Managed by Dr. Mccoy. -ca 125 recent jump possibly r/t to recent surgery recheck in 4-6 weeks if still elevated or higher CT scan. Dr mccoy had already talked to her about this and will monitor as well. Getting labs tomorrow - RTC in 3 months Ostomy -managing care well -reversal reconsidered in few months with Dr Miles HCM -mammogram-06/16 plans to have one next month -colonoscopy- will get in the next few months prior to possible reversal. Mayte Gonzalez APRN.CNP Some elements copied from previous notes , including the physical exam completed in entirety today, have been updated where appropriate. All reflect current medical decision making from today, Medical Decision Making: Problems: Moderate: 1+ chronic illnesses with change Data: Unique source(s) for external note(s) reviewed: 3+ Unique test result(s) reviewed: 3+ Risk: Moderate: Moderate risk from testing/treatment Medical Decision Making Level: 4 - Moderate documented in this encounter [facility] 05-17-2024 Note HNO ID: [id number] Author: MAYTE GONZALEZ APRN.CNP Service: ? 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 On olaparib since 03/2024. Current dose 200 mg bid. Managed by Dr Mccoy. Tolerating well. Occasional nausea that zofran helps. Has ostomy. Had surgery 04/24/[address] Miles for colostomy reversal was unable to do at that time. Colorectal anastomosis was done Biopsies taken neg for cancer. Will reconsider reversal in a few months. Recovering well. Energy improving. No issues with ostomy. Managing well. No pain or bloating. Appetite good. Last Ct 01/2024 MELISSA ROS: 14 point ROS negative unless indicated in above HPI. Oncologic history: 07/15/23: Diagnostic laparoscopy - extensive infiltration into Ball's pouch, freddy hepatis, dense scarring between liver and diaphragm due to disease infiltration. Debulking aborted. Transverse loop colostomy created. 08/09/23: C1D1 carboplatin/paclitaxel 08/30/23: C2D1 09/20/23: C3D1 10/28/23: Interval debulking surgery. Ex-lap, enterolysis, modified posterior exenterative procedure including radical hysterectomy, BSO, en bloc resection of rectosigmoid colon, bilateral temporary stents (urology). No residual disease. 01/23/24: C6D1 carboplatin/paclitaxel. 02/01/24: Completion CT MELISSA. 03/2024: olaparib started 04/25/2024: colorectal resection biopsy of omentum FINAL DIAGNOSIS A. Omentum, biopsy: - Fragments of benign fibromuscular tissue, squamous mucosa, and organizing blood clot. B. Colonic donuts, excision: - Benign colonic tissue. C. Colostomy, reversal: - Benign colostomy site. Oncology History Ovarian cancer on left (HCC) 07/27/2023 Initial Diagnosis Ovarian cancer on left (HCC) 08/09/2023 - Chemotherapy Treatment goal 2. Oncology Non-Curative Plan Name AMB PACLITAXEL 175 D1 CARBOPLATIN 6 D1 - Q21D Status Active Start Date 08/09/2023 End Date 01/23/2024 Provider Hiram Mccoy, DO Chemotherapy CARBOplatin 400 mg in NaCl 0.9% 315 mL (PARAPLATIN), 400 mg (100 % of original dose 415.2 mg), INTRAVENOUS, ONCE, 6 of 6 cycles Dose modification: 415.2 mg (original dose 415.2 mg, Cycle 1), 420 mg (original dose 420 mg, Cycle 2), 405 mg (original dose 405 mg, Cycle 4), 405 mg (original dose 405 mg, Cycle 3), 406.2 mg (original dose 406.2 mg, Cycle 5), 338.5 mg (original dose 338.5 mg, Cycle 6) Administration: 400 mg (08/09/2023), 400 mg (08/30/2023), 400 mg (12/06/2023), 400 mg (09/20/2023), 400 mg (12/28/2023), 338.5 mg (01/23/2024) PACLitaxel 270 mg in NaCl 0.9% 585 mL (TAXOL), 175 mg/m2 = 270 mg, INTRAVENOUS, ONCE, 6 of 6 cycles Dose modification: 135 mg/m2 (original dose 175 mg/m2, Cycle 6, Reason: 3.) Toxicity, Comment: Severe thrombocytopenia) Administration: 270 mg (08/09/2023), 270 mg (08/30/2023), 269.5 mg (12/06/2023), 269.5 mg (09/20/2023), 269.5 mg (12/28/2023), 200 mg (01/23/2024) PE: EGOG PS 1 BP 189/76 (BP Site: Right Arm, BP Position: Sitting, BP Cuff Size: Regular Adult) Pulse 62 Temp 36.7 ?C (98 ?F) (Oral) Wt 52.6 kg (116 lb) SpO2 98% BMI 21.22 kg/m? Gen: well-appearing, NAD, here with her daughter Lungs: unlabored breathing on Ra Abdomen: sort, Nt , no masses, stoma looks good Pelvic: no external lesion, no pelvic masses, no groin adenopathy Extremities: no edema The sensitive examination was discussed with the Patient or Patient's Authorized Apparel Sales Associate. As applicable, any other physician, advance practice provider, medical student, or other health professional student that will be observing or involved in the sensitive examination for educational or training purposes was discussed with the Patient or Authorized Apparel Sales Associate. The Patient or Authorized Apparel Sales Associate has agreed to proceed with the sensitive examination. (Sensitive examination includes inspection and/or palpation of the breasts, pelvis, prostate and anorectal regions) Labs/Imagin05/07/2024: CBC, CMP reviewed in epic 05/03/2024: Ca125 97 up from 23 04/05/2024 A/P: This is a 72 year old with stage IVB high grade serous ovarian vs fallopian tube cancer s/p upfront treatment here for CT review and treatment planning. Ovarian/fallopian tube cancer: - Completion CT negative/MELISSA. Ca-125 reflects this. - Germline BRIP mutation - on olaparib. Managed by Dr. Mccoy. -ca 125 recent jump possibly r/t to recent surgery recheck in 4-6 weeks if still elevated or higher CT scan. Dr mccoy had already talked to her about this and will monitor as well. Getting labs tomorrow - RTC in 3 months Ostomy -managing care well -reversal reconsidered in few months with Dr Miles HC (more content not included)... [facility] 05-10-2024 Telephone encounter Note Pt notified of result. Pedro Holt MA May 10, 2024 10:17 AM [facility] 05-10-2024 Miscellaneous Notes Pt notified of result. Pedro Holt MA May 10, 2024 10:17 AM LVM. Pedro Holt MA May 03, 2024 2:51 PM ----- Message from Rohit Miles MD sent at 04/27/2024 12:30 PM EDT ----- There were no major findings on her pathology results. The biopsies I took of a firm area in her abdomen showed some strange results where they showed a bit of the lining of the bowel wall and I think some of the specimens may have been mixed up a bit, but there is no sign of recurring cancer or any other major findings. Rohit Miles MD April 27, 2024 12:30 PM documented in this encounter [facility] 05-09-2024 Note HNO ID: [id number] Author: ROHIT MILES MD Service: ? Author Type: Physician Type: Progress Notes Filed: 05/09/2024 12:31 Note Text: Rohit Miles M.D. Colon AND Rectal Surgery [address] [facility], [address] [place] [address] SUBJECTIVE Gasper Reed is a 73 year old White female s/p colorectal anastomosis HPI She denies abdominal pain, and notes that her stoma is working mostly like it had been. She is eating well and has not had any stool or mucus per rectum currently. Review of Systems Constitutional: Negative for chills, fever and weight loss. HENT: Negative for congestion, ear pain, hearing loss, sinus pain and sore throat. Eyes: Negative for blurred vision, double vision and pain. Respiratory: Negative for cough, shortness of breath and wheezing. Cardiovascular: Negative for chest pain, palpitations and leg swelling. Gastrointestinal: Positive for nausea. Negative for abdominal pain, blood in stool, constipation, diarrhea, heartburn and vomiting. Genitourinary: Negative for dysuria, frequency and urgency. Musculoskeletal: Positive for joint pain. Negative for back pain and neck pain. Skin: Negative for itching and rash. Neurological: Negative for dizziness, weakness and headaches. Endo/Heme/Allergies: Negative for environmental allergies. Bruises/bleeds easily. Psychiatric/Behavioral: Negative for depression and memory loss. The patient is not nervous/anxious and does not have insomnia. PAST MEDICAL HISTORY Diagnosis Date Arthritis Attention to colostomy (HCC) Cataract Colostomy in place (HCC) ovarian cancer, tumor leaning against bowel Essential hypertension, benign 07/25/1994 Generalized anxiety disorder Nausea and vomiting with chemotherapy and anesthesia Ovarian cancer on left (HCC) PONV (postoperative nausea and vomiting) PAST SURGICAL HISTORY Procedure Laterality Date COLOSTOMY 07/15/2023 transverse loop diverting L'SCOPE DX W/WO BRUSHINGS/WASHINGS 07/15/2023 with peritoneal biopsy LAPAROSCOPIC OMENTECTOMY 10/28/2023 LIG/TRNSXJ FLP TUBE ABDL/VAG APPR UNI/BI 07/25/1981 Tubal ligation TONSILLECTOMY AND ADENOIDECTOMY TOTAL ABDOM HYSTERECTOMY 10/28/2023 TOTAL ABDOMINAL HYSTERECT W/WO RMVL TUBE OVARY 10/28/2023 Social History Tobacco Use Smoking status: Former Current packs/day: 0.00 Types: Cigarettes Start date: 07/25/1972 Quit date: 07/25/1974 Years since quittin.8 Smokeless tobacco: Never Tobacco comments: Pt smoked an occ cigarette for 2 approx years Vaping Use Vaping status: Never Used Substance Use Topics Alcohol use: Not Currently Alcohol/week: 2.0 standard drinks of alcohol Types: 2 Glasses of Wine (5oz) per week Drug use: No FAMILY HISTORY Problem Relation Age of Onset Osteoporosis Mother smoker other (osteoarthritis) Mother Cancer Mother Coronary Artery Disease Father MA age 40's, age 60's; also smoked and alcoholic Mental illness Sister Renal Disease Sister Cancer Sister other (rheumatoid arthritis) Sister Coronary Artery Disease Brother MA age 49, smoker, recovering alcoholic Breast Cancer Paternal Grandmother late 70's Diabetes Paternal Grandfather Heart Paternal Grandfather Breast Cancer Maternal Aunt age 65 Ovarian cancer Maternal Aunt The ROS, medical, surgical, family, and social history were reviewed by Rohit Miles MD ALLERGIES Allergen Reactions Erythromycin Diarrhea, GI Upset Abdominal cramping Penicillins Unknown Current Outpatient Medications Medication Sig lisinopril-hydroCHLOROthiazide (ZESTORETIC) 20-12.5 mg per tablet promethazine (PHENERGAN) 25 mg tablet Take 1 tab by mouth every 4 hours as needed for nausea. olaparib (LYNPARZA) 100 mg tablet Take 2 tablets (200 mg) by mouth two times a day. pantoprazole DR (PROTONIX) 40 mg tablet take 1 tablet by mouth every day ondansetron (ZOFRAN) 8 mg tablet Take 1 tablet by mouth every 8 hours as needed for nausea/vomiting. acetaminophen (TYLENOL) 500 mg tablet Take 2 tablets by mouth every 6 hours. vitamin b complex capsule Take 1 capsule by mouth once daily. oxybutynin ER (DITROPAN XL) 10 mg 24 hr tablet Take 15 mg by mouth once daily. lidocaine-prilocaine (EMLA) 2.5-2.5 % cream Apply 60 minutes prior to accessing port calcium carbonate (CALCIUM 600 ORAL) Take 1 tablet by mouth once daily. No current facility-administered medications for this visit. OBJECTIVE BP 187/97 (BP Site: Left Arm, BP Position: Sitting, BP Cuff Size: Regular Adult) Pulse 68 Ht 157.5 cm (5' 2) Wt 52.6 kg (116 lb) BMI 21.22 kg/m? BMI 21.22 kg/(m2) Physical Exam Constitutional: General: She is not in acute distress. Appearance: Normal appearance. She is not ill-appearing. Abdominal: General: There is no distension. Palpations: Abdomen is soft. Tenderness: There is no abdominal tenderness. Neurological: Mental Status: She (more content not included)... [facility] 05-09-2024 History of Present illness Narrative Images from the original note were not included. Rohit Miles M.D. Colon & Rectal Surgery [address] [facility], [address] [place] [address] SUBJECTIVE Gasper Reed is a 73 year old White female s/p colorectal anastomosis HPI She denies abdominal pain, and notes that her stoma is working mostly like it had been. She is eating well and has not had any stool or mucus per rectum currently. Review of Systems Constitutional: Negative for chills, fever and weight loss. HENT: Negative for congestion, ear pain, hearing loss, sinus pain and sore throat. Eyes: Negative for blurred vision, double vision and pain. Respiratory: Negative for cough, shortness of breath and wheezing. Cardiovascular: Negative for chest pain, palpitations and leg swelling. Gastrointestinal: Positive for nausea. Negative for abdominal pain, blood in stool, constipation, diarrhea, heartburn and vomiting. Genitourinary: Negative for dysuria, frequency and urgency. Musculoskeletal: Positive for joint pain. Negative for back pain and neck pain. Skin: Negative for itching and rash. Neurological: Negative for dizziness, weakness and headaches. Endo/Heme/Allergies: Negative for environmental allergies. Bruises/bleeds easily. Psychiatric/Behavioral: Negative for depression and memory loss. The patient is not nervous/anxious and does not have insomnia. PAST MEDICAL HISTORY Diagnosis Date Arthritis Attention to colostomy (HCC) Cataract Colostomy in place (HCC) ovarian cancer, tumor leaning against bowel Essential hypertension, benign 07/25/1994 Generalized anxiety disorder Nausea and vomiting with chemotherapy and anesthesia Ovarian cancer on left (HCC) PONV (postoperative nausea and vomiting) PAST SURGICAL HISTORY Procedure Laterality Date COLOSTOMY 07/15/2023 transverse loop diverting L'SCOPE DX W/WO BRUSHINGS/WASHINGS 07/15/2023 with peritoneal biopsy LAPAROSCOPIC OMENTECTOMY 10/28/2023 LIG/TRNSXJ FLP TUBE ABDL/VAG APPR UNI/BI 07/25/1981 Tubal ligation TONSILLECTOMY & ADENOIDECTOMY <AGE 12 07/25/1962 TOTAL ABDOM HYSTERECTOMY 10/28/2023 TOTAL ABDOMINAL HYSTERECT W/WO RMVL TUBE OVARY 10/28/2023 Social History Tobacco Use Smoking status: Former Current packs/day: 0.00 Types: Cigarettes Start date: 07/25/1972 Quit date: 07/25/1974 Years since quittin.8 Smokeless tobacco: Never Tobacco comments: Pt smoked an occ cigarette for 2 approx years Vaping Use Vaping status: Never Used Substance Use Topics Alcohol use: Not Currently Alcohol/week: 2.0 standard drinks of alcohol Types: 2 Glasses of Wine (5oz) per week Drug use: No FAMILY HISTORY Problem Relation Age of Onset Osteoporosis Mother smoker other (osteoarthritis) Mother Cancer Mother Coronary Artery Disease Father MA age 40's, age 60's; also smoked and alcoholic Mental illness Sister Renal Disease Sister Cancer Sister other (rheumatoid arthritis) Sister Coronary Artery Disease Brother MA age 49, smoker, recovering alcoholic Breast Cancer Paternal Grandmother late 70's Diabetes Paternal Grandfather Heart Paternal Grandfather Breast Cancer Maternal Aunt age 65 Ovarian cancer Maternal Aunt The ROS, medical, surgical, family, and social history were reviewed by Rohit Miles MD ALLERGIES Allergen Reactions Erythromycin Diarrhea, GI Upset Abdominal cramping Penicillins Unknown Current Outpatient Medications Medication Sig lisinopril-hydroCHLOROthiazide (ZESTORETIC) 20-12.5 mg per tablet promethazine (PHENERGAN) 25 mg tablet Take 1 tab by mouth every 4 hours as needed for nausea. olaparib (LYNPARZA) 100 mg tablet Take 2 tablets (200 mg) by mouth two times a day. pantoprazole DR (PROTONIX) 40 mg tablet take 1 tablet by mouth every day ondansetron (ZOFRAN) 8 mg tablet Take 1 tablet by mouth every 8 hours as needed for nausea/vomiting. acetaminophen (TYLENOL) 500 mg tablet Take 2 tablets by mouth every 6 hours. vitamin b complex capsule Take 1 capsule by mouth once daily. oxybutynin ER (DITROPAN XL) 10 mg 24 hr tablet Take 15 mg by mouth once daily. lidocaine-prilocaine (EMLA) 2.5-2.5 % cream Apply 60 minutes prior to accessing port calcium carbonate (CALCIUM 600 ORAL) Take 1 tablet by mouth once daily. No current facility-administered medications for this visit. OBJECTIVE BP 187/97 (BP Site: Left Arm, BP Position: Sitting, BP Cuff Size: Regular Adult) Pulse 68 Ht 157.5 cm (5' 2) Wt 52.6 kg (116 lb) BMI 21.22 kg/m BMI 21.22 kg/(m^2) Physical Exam Constitutional: General: She is not in acute distress. Appearance: Normal appearance. She is not ill-appearing. Abdominal: General: There is no distension. Palpations: Abdomen is soft. Tenderness: There is no abdominal tenderness. Neurological: Mental Status: She is alert and oriented to person, place, and time. Psychiatric: Mood and Affect: Mood and affect normal. Judgment: Judgment normal. Hemoglobin (g/dL) Date Value 05/07/2024 8.9 Hematocrit (%) Date Value 05/07/2024 26.5 WBC (k/uL) Date Value 05/07/2024 4.56 Platelet Count (k/uL) Date Value 05/07/2024 143 Creatinine Date Value Ref Range Status 05/07/2024 1.27 (H) 0.58 - 0.96 mg/dL Final AST Date Value Ref Range Status 05/07/2024 28 13 - 35 U/L Final ALT Date Value Ref Range Status 05/07/2024 79 (H) 7 - 38 U/L Final Bilirubin, Total (mg/dL) Date Value 05/07/2024 0.7 Antibody Screen (no units) Date Value 10/20/2023 Negative WBC (k/uL) Date Value 05/07/2024 4.56 RBC (m/uL) Date Value 05/07/2024 2.46 (L) %DIG,%DBS Plan ASSESSMENT/PLAN: 1. Attention to colostomy (HCC) - ICD9: V55.3, ICD10: Z43.3 She is doing well, we discussed her pathology results and when this was discussed with our pathologist they thought there may have been some cross-contamination of the results but there is nothing to suggest dysplasia. I did not see anything else intraoperatively of concern except this 1 hard area. We will see her back in a few months to discuss stoma reversal, and we will consider studies needed before reversal, likely xr colon and colonoscopy Follow up: Return in about 3 months (around 08/09/2024) for Reassessment. Rohit Miles M.D. Please Note: This office note has been created using [employer], a speech recognition software program, and may contain errors including punctuation, grammar, spelling, gender, and inappropriate words or phrases that pertain to the sytem. documented in this encounter [facility] 05-09-2024 Telephone encounter Note Pt returned call, pt notified and voices understanding. Apt note updated. Roselyn Pittman LPN [facility] 05-09-2024 Miscellaneous Notes Pt returned call, pt notified and voices understanding. Apt note updated. Roselyn Pittman LPN Left message for patient to contact office. Victorina Rebolledo LPN Can let her know that I noted her CA125 was increased on her lab work was last drawn last week. This may be because of the healing process in her abdomen or perhaps because she had only been on Lynparza about a month or so when it was checked. Sometimes CA125 increases initially with a new treatment for ovarian cancer and then starts to decrease. So, to monitor please add CA125 when she is here for lab work on 05/18. Hiram Mccoy DO documented in this encounter [facility] 05-09-2024 Telephone encounter Note Left message for patient to contact office. Victorina Rebolledo LPN [facility] 05-09-2024 Telephone encounter Note Can let her know that I noted her CA125 was increased on her lab work was last drawn last week. This may be because of the healing process in her abdomen or perhaps because she had only been on Lynparza about a month or so when it was checked. Sometimes CA125 increases initially with a new treatment for ovarian cancer and then starts to decrease. So, to monitor please add CA125 when she is here for lab work on 05/18. Hiram Mccoy DO [facility] 05-03-2024 Telephone encounter Note Scheduled [facility] Work Phone: 05-03-2024 Miscellaneous Notes Scheduled Spoke with pt. Informed redraw CMP labs on Tuesday PSS please put on port schedule for 05/07 @ 10 am. Kelsy Storm LPN Lab work today showed that her liver enzymes are elevated. This may just be an effect from surgery and temporary. Recommend recheck CMP on Tuesday. documented in this encounter [facility] 05-03-2024 Telephone encounter Note Spoke with pt. Informed redraw CMP labs on Tuesday PSS please put on port schedule for 05/07 @ 10 am. Kelsy Storm LPN [facility] 05-03-2024 Telephone encounter Note Lab work today showed that her liver enzymes are elevated. This may just be an effect from surgery and temporary. Recommend recheck CMP on Tuesday. [facility] 05-03-2024 Telephone encounter Note LVM. Pedro Holt MA May 03, 2024 2:51 PM [facility] 05-03-2024 Telephone encounter Note ----- Message from Rohit Miles MD sent at 04/27/2024 12:30 PM EDT ----- There were no major findings on her pathology results. The biopsies I took of a firm area in her abdomen showed some strange results where they showed a bit of the lining of the bowel wall and I think some of the specimens may have been mixed up a bit, but there is no sign of recurring cancer or any other major findings. 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 HPI: The patient is a 73-year-old female with a past medical history significant for hypertension and rheumatoid arthritis. Presented to the ED at [facility] on 07/10/2023 with complaints of nausea and vomiting that started approximately 24 hours before presentation. This was accompanied with diarrhea. She been having intermittent abdominal pain for a couple months. Approximate 10 pound weight loss. Evidently underwent colonoscopy in March that demonstrated a constricted colon. CT A/P 07/10/2023: LOWER THORAX: Normal. Lung bases are clear. No cardiomegaly. No pericardial effusion. ABDOMEN: LIVER: Stable 12 mm lesion within hepatic segment 7 and 14 mm lesion within hepatic segment 3 suggestive of hemangiomata. PANCREAS: Normal. No focal cystic or solid mass. SPLEEN: Normal. Normal size without focal cystic or solid mass. ADRENALS: Normal. No nodules. KIDNEYS AND URETERS: Normal. Normal renal size and position. No hydronephrosis. STOMACH AND BOWEL: Multiple dilated thick-walled small bowel loops noted within the lower abdomen. There is fluid distention of the ascending and transverse colon. Prominent wall thickening of the sigmoid colon. PELVIS: APPENDIX: Appendix is visualized and normal in appearance. BLADDER: Normal. REPRODUCTIVE: 4.8 cm left adnexal cystic mass has significantly increased in size from prior study raising possibility of underlying cystic ovarian neoplasm. ABDOMEN and PELVIS: INTRAPERITONEAL SPACE: Interval development of moderate volume ascites. No free air. BONES/JOINTS: No suspicious lytic or blastic abnormality. SOFT TISSUES: Normal. No discrete abdominal or pelvic wall hernia. VASCULATURE: Normal. Abdominal aorta is non-dilated. LYMPH NODES: Interval enlargement of the retroperitoneal lymph nodes adjacent to the aorta and inferior vena cava raising possibility of metastatic disease. IMPRESSION: 1. Interval enlargement of complex cystic left adnexal mass which may represent ovarian neoplasm. 2. Interval development of moderate volume ascites. 3. Multiple thick-walled loops of large and small bowel consistent with inflammatory bowel disease. 4. Enlarging retroperitoneal lymph nodes which may represent metastatic disease. She was transferred to [facility] for gynecologic oncology surgery. Underwent diagnostic laparoscopy with peritoneal biopsy along with transverse loop diverting colostomy on 07/15/2023. Patient was found to have carcinomatosis with diffuse disease on right and left diaphragm. There were dense adhesions between liver immediately lateral to the falciform and diaphragm. Tumor infiltration of the falciform and freddy hepatis was observed. Pelvis was not visualized due to multiple loops of small bowel that were adherent to the pelvis. There was a plaque of tumor overlying the bladder peritoneum. Unable to visualize ovarian masses due to small bowel adherent to the sigmoid colon. Diffuse thickening of the paracolic gutter peritoneum was observed. There was thickened omentum without obvious implants including supracolic omentum with decreased mobility of transverse colon. 1000 cc of murky green ascites was aspirated. Biopsies were obtained of the peritoneal implants. 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 See comment. Identical morphologic features are noted within the present, peritoneal specimen that are found within the recent abdominal fluid cytology specimen, [id number]. Confirmatory immunohistochemistry was performed on the cytology specimen supporting a diagnosis of serous carcinoma. Per initial consultation here: Appetite okay--small meals. Taking Zofran regularly. Small amount reflux--TUMS prn. Ostomy working well. Pain improved. Previous therapy: 1) Neoadjuvant chemotherapy with paclitaxel and carboplatin x3 cycles. 2) Exploratory laparotomy, lysis of adhesions, total abdominal hysterectomy, bilateral salpingo-oophorectomy with en block rectosigmoid resection, cystoscopy and temporary bilateral ureteral stents (urology) on 10/28/23. Pathology: A. Uterus, cervix with right fallopian tube and ovary, total abdominal hysterectomy with right salpingo-oophorectomy: -- Ovary: Involved by high-grade serous carcinoma, status post neoadjuvant chemotherapy, see comment and case summary. -- Fallopian tube: Involved by high-grade serous carcinoma, see comment. -- Endometrium: Atrophic endometrium. -- Myometrium: No significant histopathologic abnormalities. -- Serosa: Involved by high-grade serous carcinoma. -- Cervix: Outer part of the cervical stroma focally involved by carcinoma. -- Vessels with medial calcific sclerosis. B. Rectosigmoid colon and left ovary and fallopian tube, low anterior colon resection and left salpingo-oophorectomy: -- Ovary: Involved by high-grade serous carcinoma with adhesions to the colonic wall. -- Fallopian tube: No fallopian tube identified grossly or microscopically. -- Colon: High-grade serous carcinoma invades through muscularis propria into the submucosa, see comment. -- Metastatic carcinoma in two out of four lymph nodes (2 mi/4), biggest deposit 0.8 mm, see comment. -- Isolated tumor cells in one out of four lymph nodes (ITCs/1). -- Soft tissue attached to the lymph nodes involved by high-grade serous carcinoma. SPECIMEN Procedure Total hysterectomy and bilateral salpingo-oophorectomy Low anterior colon resection Specimen Integrity Right Ovary Integrity Capsule intact Specimen Integrity Left Ovary Integrity Capsule intact Specimen Integrity Right Fallopian Tube Integrity Serosa intact Uterus Integrity Intact TUMOR Tumor Site Bilateral ovaries Tumor Size Greatest Dimension (Centimeters): 5.2 cm Histologic Type High grade serous carcinoma Histologic Grade High grade Ovarian Surface Involvement Present, right and left Fallopian Tube Surface Involvement Present, right Other Tissue / Organ Involvement Right fallopian tube Pelvic peritoneum Sigmoid colon Peritoneal / Ascitic Fluid Involvement Not submitted / unknown Chemotherapy Response Score (CRS) Cannot be determined: No omentum submitted REGIONAL LYMPH NODES Regional Lymph Node Status Tumor present in regional lymph node(s) Number of Nodes with Metastasis Greater than 10 mm 0 Number of Nodes with Metastasis 10 mm or Less (excluding isolated tumor cells) 2 Lanny Site(s) with Tumor Pericolonic lymph nodes Size of Largest Lanny Metastatic Deposit At least: 0.8 mm Location of Largest Lanny Metastatic Deposit Pericolonic lymph nodes Number of Lymph Nodes Examined 4 Lanny Site(s) Examined Pericolonic lymph nodes pTNM CLASSIFICATION (AJCC 8th Edition) Reporting of pT, pN, and (when applicable) pM categories is based on information available to the pathologist at the time the report is issued. As per the AJCC (Chapter 1, 8th Ed.) it is the managing physician s responsibility to establish the final pathologic stage based upon all pertinent information, including but potentially not limited to this pathology report. Modified Classification y pT Category pT3a pN Category pN1a FIGO STAGE FIGO Stage IIIA1(i) She required a platelet transfusion after cycle #5 for a platelet rafa count of 14,000. Current therapy: 1) Lynparza. Started early March 2024. Presents for ongoing oncologic management. Interim history: Occasional nausea. Surgery 04/24/2024-- partial colectomy, colorectal anastomosis, creation of new loop colostomy, takedown of splenic flexure, colorectal anastosis, omental biopsy, extensive lysis of adhesions over 60 minutes, flexible sigmoidoscopy - Omental biopsy negative. PAST MEDICAL HISTORY Diagnosis Date Arthritis Attention to colostomy (HCC) Cataract Colostomy in place (HCC) ovarian cancer, tumor leaning against bowel Essential hypertension, benign 07/25/1994 Generalized anxiety disorder Nausea and vomiting with chemotherapy and anesthesia Ovarian cancer on left (HCC) PONV (postoperative nausea and vomiting) PAST SURGICAL HISTORY Procedure Laterality Date COLOSTOMY 07/15/2023 transverse loop diverting L'SCOPE DX W/WO BRUSHINGS/WASHINGS 07/15/2023 with peritoneal biopsy LAPAROSCOPIC OMENTECTOMY 10/28/2023 LIG/TRNSXJ FLP TUBE ABDL/VAG APPR UNI/BI 07/25/1981 Tubal ligation TONSILLECTOMY & ADENOIDECTOMY <AGE 12 07/25/1962 TOTAL ABDOM HYSTERECTOMY 10/28/2023 TOTAL ABDOMINAL HYSTERECT W/WO RMVL TUBE OVARY 10/28/2023 ALLERGIES Allergen Reactions Erythromycin Diarrhea, GI Upset Abdominal cramping Penicillins Unknown Current Outpatient Medications Medication Sig promethazine (PHENERGAN) 25 mg tablet Take 1 tab by mouth every 4 hours as needed for nausea. olaparib (LYNPARZA) 100 mg tablet Take 2 tablets (200 mg) by mouth two times a day. pantoprazole DR (PROTONIX) 40 mg tablet take 1 tablet by mouth every day ondansetron (ZOFRAN) 8 mg tablet Take 1 tablet by mouth every 8 hours as needed for nausea/vomiting. acetaminophen (TYLENOL) 500 mg tablet Take 2 tablets by mouth every 6 hours. vitamin b complex capsule Take 1 capsule by mouth once daily. oxybutynin ER (DITROPAN XL) 10 mg 24 hr tablet Take 15 mg by mouth once daily. lidocaine-prilocaine (EMLA) 2.5-2.5 % cream Apply 60 minutes prior to accessing port calcium carbonate (CALCIUM 600 ORAL) Take 1 tablet by mouth once daily. iv contrast (will be provided with radiology test) CT ABD/PEL -Inject, intravenously, once for 1 dose.No IV access, insert saline lock prior to the beginning of sedation, infusion, injection of imaging exam. Discontinue saline lock post exam. If Pt. has a central line or IVAD, may access for administration according to line specific nursing protocol. Once exam is complete flush line and de-access according to line specific nursing protocol in the CT contrast administration guidelines link. (Patient not taking: Reported on 04/06/2024) enteric contrast (will be provided with radiology test) For CT ABD/PEL W IVCON Routine order Administer, As Directed One Time Only, via Oral, Rectal, both Oral and Rectal, Enteric Tube, Stoma or Indwelling Catheter, Enteric Contrast as designated per enteric contrast guidelines No current facility-administered medications for this visit. Social History Tobacco Use Smoking status: Former Current packs/day: 0.00 Types: Cigarettes Start date: 07/25/1972 Quit date: 07/25/1974 Years since quittin.8 Smokeless tobacco: Never Tobacco comments: Pt smoked an occ cigarette for 2 approx years Vaping Use Vaping status: Never Used Substance Use Topics Alcohol use: Not Currently Alcohol/week: 2.0 standard drinks of alcohol Types: 2 Glasses of Wine (5oz) per week Drug use: No Family history: Father-hypertension Maternal aunt--Breast cancer in her 60s. PGM--Breast cancer in her 80s. Mother-- of metastatic cancer at age 80. Sister--Larynx cancer. ROS: Constitutional: No fever. No drenching night sweats. Neuro: No recent PERAZA, vertigo, dizziness or imbalance. HEENT: No recent change in voice, vision or hearing. Resp: No cough, wheeze of hemoptysis. No shortness of breath at rest. CVS: No exertional chest pain, PND or orthopnea. No extremity swelling/edema. No symptoms of claudication. No painful or tender varicose veins. GI: See above. : No dysuria or gross hematuria. No symptoms of bladder outlet obstruction. Endo: No hot flashes. No polyuria or polydipsia. No heat or cold intolerance. Musculoskeletal: Diagnosed with RA 2015. Hip pain. Controlled with Plaquenil. Derm: No current rash. No history of jaundice. No diffuse pruritis. Heme: No unusual bleeding and unexplained bruising. Psych: Normal mood. PHYSICAL EXAM: Vitals: Blood pressure 199/78, pulse 68, temperature 36.3 C (97.3 F), temperature source Temporal, weight 53.3 kg (117 lb 8 oz), SpO2 100%. Well-appearing and in no acute distress. EYES: Sclerae are anicteric bilaterally. LYMPHATIC: There is no palpable cervical, supraclavicular, axillary adenopathy. RESPIRATORY: Inspiratory breath sounds are of normal intensity in all dominguez. No rales, wheezes or rhonchi. Expiratory phase is normal. CARDIOVASCULAR: Rhythm is regular. ABDOMEN: The abdomen is nondistended. Ostomy appears healthy. SKIN: No jaundice. LABS: Latest Ref Rng 05/03/2024 WBC 3.70 - 11.00 k/uL 4.42 RBC 3.90 - 5.20 m/uL 2.50 (L) Hemoglobin 11.5 - 15.5 g/dL 9.1 (L) Hematocrit 36.0 - 46.0 % 26.5 (L) MCV 80.0 - 100.0 fL 106.0 (H) MCH 26.0 - 34.0 pg 36.4 (H) MCHC 30.5 - 36.0 g/dL 34.3 RDW-CV 11.5 - 15.0 % 14.5 Platelet Count 150 - 400 k/uL 136 (L) MPV 9.0 - 12.7 fL 10.7 Neut% % 67.8 Abs Neut (ANC) 1.45 - 7.50 k/uL 3.00 Lymph% % 19.9 Abs Lymph 1.00 - 4.00 k/uL 0.88 (L) [place]% % 8.4 Abs [place] <0.87 k/uL 0.37 Eosin% % 2.9 Abs Eosin <0.46 k/uL 0.13 Baso% % 0.5 Abs Baso <0.11 k/uL <0.03 Immature Gran % % 0.5 IMMATURE GRANS (ABS) <0.10 k/uL <0.03 NRBC /100 WBC 0.0 Absolute nRBC <0.01 k/uL <0.01 DTYPE Auto ASSESSMENT/PLAN: (C56.2) Ovarian cancer on left (HCC) (primary encounter diagnosis) Assessment: -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 -Presented with partial large bowel obstruction status post transverse loop diverting colostomy. Not able to undergo upfront debulking surgery. -Tolerated carboplatin and paclitaxel very well overall. 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 -White coat HTN. -Tolerating Lynparza very well. -Anemia has improved as has platelet count. Plan: -Keep follow-up scheduled with Dr. Shah. -CBC/CMP every other week for about 6 weeks. -CA125 in about 6 weeks. -OV with CBC/CMP/CA125 in about 3 months. -Has follow-up scheduled with Dr. Miles. -Her children plan to talk with their PCP and carrot buncher about genetic counseling. Portions of this documentation were copied and pasted from previous office visit notes in order to provide a cohesive continuity of the history. The note has been reviewed and edited and updated as necessary. I spent a total of 15 minutes on the date of the service which included preparing to see the patient, [id number] patient care, completing clinical documentation, obtaining and/or reviewing separately obtained history, performing a medically appropriate examination, counseling and educating the patient/family/caregiver, ordering medications, tests, or procedures, communicating with other HCPs (not separately reported), and communicating results to the patient/family/caregiver. Hiram Mccoy DO documented in this encounter [facility] 04-26-2024 Telephone encounter Note DISCHARGE CALL BACK Today's date: April 26, 2024 Notified of Pt discharge by: Epic notification Patient discharged on 04/26/24 from [facility] to Home Primary Cancer Diagnosis: Ovarian Cancer Admitting Diagnosis: Elective colostomy reversal Discharge Summary/SBAR reviewed: Yes Handoff Discussed with Transitional Linen Folder: N/A Psychosocial Risk Factors: None If patient discharged to SNF/Rehab Facility, phone call completed to reinforce discharge instructions and follow up: N/A Call Disposition: No need for follow-up from our office d/t elective surgery. Patient is scheduled with our office next week. Joy Bolaños RN [facility] 04-26-2024 Miscellaneous Notes DISCHARGE CALL BACK Today's date: April 26, 2024 Notified of Pt discharge by: Epic notification Patient discharged on 04/26/24 from [facility] to Home Primary Cancer Diagnosis: Ovarian Cancer Admitting Diagnosis: Elective colostomy reversal Discharge Summary/SBAR reviewed: Yes Handoff Discussed with Transitional Linen Folder: N/A Psychosocial Risk Factors: None If patient discharged to SNF/Rehab Facility, phone call completed to reinforce discharge instructions and follow up: N/A Call Disposition: No need for follow-up from our office d/t elective surgery. Patient is scheduled with our office next week. Joy Bolaños RN documented in this encounter [facility] 04-23-2024 Telephone encounter Note GENERAL SURGERY/ERAS [employer]ICY SPECIALIST PREOPERATIVE EDUCATION Date: 04/20/2024 Time: 3:37 PM Education provide to: Patient Lives with: Alone Mobility: Independent ERAS protocol instructions given with good understanding. Written instructions given to patient at PST appointment. Encouraged to call with any questions. SIGNATURE: Estuardo Long RN PATIENT NAME: Gasper Reed DATE: April 23, 2024 TIME: 9:18 AM PAGER/CONTACT #: [phone] [facility] 04-23-2024 Miscellaneous Notes GENERAL SURGERY/ERAS [employer]ICY SPECIALIST PREOPERATIVE EDUCATION Date: 04/20/2024 Time: 3:37 PM Education provide to: Patient Lives with: Alone Mobility: Independent ERAS protocol instructions given with good understanding. Written instructions given to patient at PST appointment. Encouraged to call with any questions. SIGNATURE: Estuardo Long RN PATIENT NAME: Gasper Reed DATE: April 23, 2024 TIME: 9:18 AM PAGER/CONTACT #: [phone] documented in this encounter [facility] 04-20-2024 History and physical note Images from the original note were not included. [facility] HISTORY AND PHYSICAL EXAMINATION SERVICE DATE: 04/20/2024 SERVICE TIME: 2:20 PM PRIMARY CARE PHYSICIAN: Emily Casanova DO Assessment Patient has the following medical conditions which may affect leslie-operative course: Preop examination Medical conditions which may affect the perioperative course were address in today's visit. Attention to colostomy (HCC) Surgery scheduled 04/24/24 Rheumatoid arthritis without rheumatoid factor, unspecified site (HCC) Patient reports - mild Platelets decreased (HCC) Platelet Count 150 - 400 k/uL 119 Low 114 Low [address] Mccoy 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 chemotherapy Component Ref Range & Units 1 d ago (04/19/24) 8 d ago (04/12/24) 2 wk ago (04/05/24) 3 wk ago (03/29/24) 1 mo ago (03/21/24) 1 mo ago (03/19/24) 1 mo ago (02/28/24) WBC 3.70 - 11.00 k/uL 4.22 4.03 4.49 5.06 4.61 4.17 3.04 Low RBC 3.90 - 5.20 m/uL 2.59 Low 2.64 Low 2.72 Low 2.84 Low 2.67 Low 2.61 Low 2.73 Low Hemoglobin 11.5 - 15.5 g/dL 9.4 Low 9.4 Low 9.6 Low 9.9 Low 9.3 Low 9.1 Low 9.0 Low Hematocrit 36.0 - 46.0 % 27.1 Low 27.6 Low Chronic hypertension Reports mostly controlled at home ( brought her home BPS for the last months SBP 140s - 112 DBP 60s-80s) Reports its always elevated at the doctors office visits On Lisinopril-HCTZ - instructed to hold DOS but recommended to bring to the hospital. BP elevated at PST 151/70. Patient denies current headache, dizziness, vision changes, SOB, chest pain. Instructed patient to continue monitor BP at home, if stays high or experience symptoms to contact PCP. [place]on Activity Status Index: METS: Climb a flight of stairs or walk up a hill (5.50 METs) DASI Score: 5.5 Patient denies any chest pain or undue shortness of breath with the above physical activity. Clinical Frailty Scale: 3. Well, with treated comorbid disease ARISCAT Score: Age: 51-80 Preoperative SpO2: >=96% Respiratory infection in the last month: No Preoperative anemia: No Surgical incision: peripheral Duration of surgery: >3 hrs Emergency procedure: No ARISCAT Score: 26 ANESTHESIA FINDINGS: Intubation History: No history of difficult intubation. No abnormal airway history Significant Anesthesia Considerations: potential postop nausea/vomiting Airway History: No history of difficult airway No abnormal airway history I - PHYSICAL EVALUATION AIRWAY Patient intubated: No. DENTAL Dental findings: teeth intact. II - ANESTHESIA PLAN Anesthetic Plan: general Beta [place] Monitoring Plan Post Procedure Analgesic Plan Prepared for Surgery: CONSULTS: Patient does not require consults for optimization at this time Planned Anesthetic: general The Following Tests/Procedures Have Been Initiated: No orders of the defined types were placed in this encounter. REASON FOR VISIT: Gasper Reed is a 73 year old female who is scheduled for Procedure(s) with comments: LAPAROSCOPIC COLOSTOMY REVERSAL (N/A) - LULU at the request of @REFPROV2@ for routine H&P. My final recommendation will be communicated back to the requesting physician by way of shared medical record or letter. Subjective The patient has the following: COVID-19 Immunization Status Overdue - Covid-19 Vaccine (1) Never done No completion, postpone, frequency change, or communication history exists for this topic. CHIEF COMPLAINT: The reason for this visit is to perform a comprehensive review of the patient's past medical history, assess their current health status and obtain any additional testing required based on anesthesia guidelines. We will also identify any potential anesthesia problems or contraindications to the planned procedure. HPI: Patient is a 73 year old female who presents for pre surgical testing. Patient reports a hx of ovarian cancer. Reports , developed partial large bowel obstruction status post transverse loop diverting colostomy in June 2023. Colostomy bag is in place. She is status post chemotherapy - carboplatin/taxol managed by Dr. Mccoy, hematology oncology. Reports last chemotherapy infusion was January 22. Now she is on Lynparza. After discussing with surgeon, patient agrees to surgical intervention. Risk and benefits discussed by surgeon. Patient denies any other problems or concerns at this time. REVIEW OF SYSTEMS: General: Negative for: fever. Neurological: Negative for: delirium, dementia, seizures, TIA and strokes. Respiratory: Negative for: asthma, COPD, pneumonia within 6 weeks, URI < 2 weeks and obstructive sleep apnea. Cardiovascular: Positive for: hypertension Negative for: atrial fibrillation, CAD, chest pain, DVT/PE and recent MA. GI: Negative for: abdominal pain, dysphagia, hepatitis, liver disease, nausea, vomiting and ETOH >2 drinks/day. : Negative for: dysuria, hematuria, urinary incontinence and renal failure. 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 Endocrine: No history of diabetes. Has not taken steroids within the past 30 days. No history of endocrinological symptoms or problems. Negative for: diabetes mellitus and hypothyroidism. Hematology: Positive for: anemia and thrombocytopenia. Negative for: factor V Leiden, hemophilia and von Willebrand disease. Oncology: Ovarian ca. No history of CA metastasis, chemo within 30 days, or radiotherapy within 90 days. No history of oncological symptoms or problems. Psych: Positive for: anxiety. Musculoskeletal: Negative for joint pain or swelling, back pain or muscle pain. Skin: Negative for lesions, rash and itching. PAST MEDICAL HISTORY Diagnosis Date Arthritis Attention to colostomy (HCC) Cataract Colostomy in place (HCC) ovarian cancer, tumor leaning against bowel Essential hypertension, benign 07/25/1994 Generalized anxiety disorder Nausea and vomiting with chemotherapy and anesthesia Ovarian cancer on left (HCC) PONV (postoperative nausea and vomiting) PAST SURGICAL HISTORY Procedure Laterality Date COLOSTOMY 07/15/2023 transverse loop diverting L'SCOPE DX W/WO BRUSHINGS/WASHINGS 07/15/2023 with peritoneal biopsy LAPAROSCOPIC OMENTECTOMY 10/28/2023 LIG/TRNSXJ FLP TUBE ABDL/VAG APPR UNI/BI 07/25/1981 Tubal ligation TONSILLECTOMY & ADENOIDECTOMY TOTAL ABDOM HYSTERECTOMY 10/28/2023 TOTAL ABDOMINAL HYSTERECT W/WO RMVL TUBE OVARY 10/28/2023 FAMILY HISTORY Problem Relation Age of Onset Osteoporosis Mother smoker other (osteoarthritis) Mother Cancer Mother Coronary Artery Disease Father MA age 40's, age 60's; also smoked and alcoholic Mental illness Sister Renal Disease Sister Cancer Sister other (rheumatoid arthritis) Sister Coronary Artery Disease Brother MA age 49, smoker, recovering alcoholic Breast Cancer Paternal Grandmother late 70's Diabetes Paternal Grandfather Heart Paternal Grandfather Breast Cancer Maternal Aunt age 65 Ovarian cancer Maternal Aunt Social History Tobacco Use Smoking status: Former Current packs/day: 0.00 Types: Cigarettes Start date: 07/25/1972 Quit date: 07/25/1974 Years since quittin.7 Smokeless tobacco: Never Tobacco comments: Pt smoked an occ cigarette for 2 approx years Vaping Use Vaping status: Never Used Substance Use Topics Alcohol use: Not Currently Alcohol/week: 2.0 standard drinks of alcohol Types: 2 Glasses of Wine (5oz) per week Drug use: No Prior to Admission medications as of 04/20/24 1424 Medication Sig Last Dose Taking metroNIDAZOLE (FLAGYL) 500 mg tablet Take two tabs by mouth at 1pm, 3pm, and 11pm the day prior to surgery. Taking Yes neomycin 500 mg tablet Take two tabs by mouth at 1pm, 3pm, and 11pm the day prior to the surgery. Taking Yes olaparib (LYNPARZA) 100 mg tablet Take 2 tablets (200 mg) by mouth two times a day. Patient taking differently: Take 200 mg by mouth two times a day. 8 am and 8 pm Taking Yes pantoprazole DR (PROTONIX) 40 mg tablet take 1 tablet by mouth every day Taking Yes ondansetron (ZOFRAN) 8 mg tablet Take 1 tablet by mouth every 8 hours as needed for nausea/vomiting. Taking Yes acetaminophen (TYLENOL) 500 mg tablet Take 2 tablets by mouth every 6 hours. Patient taking differently: Take 1,000 mg by mouth every 6 hours as needed. Taking Yes lisinopril-hydroCHLOROthiazide (ZESTORETIC) 20-12.5 mg per tablet Take 1 tablet by mouth once daily. Patient taking differently: Take 1 tablet by mouth two times a day. Taking Yes vitamin b complex capsule Take 1 capsule by mouth once daily. Taking Yes polyethylene glycol 3350 (MIRALAX) 17 gram/dose powder Take 34 g by mouth once daily. Dissolve dose in 4 - 8 ounces of liquid and take as directed. Taking Yes oxybutynin ER (DITROPAN XL) 10 mg 24 hr tablet Take 15 mg by mouth once daily. Taking Yes lidocaine-prilocaine (EMLA) 2.5-2.5 % cream Apply 60 minutes prior to accessing port Taking Yes calcium carbonate (CALCIUM 600 ORAL) Take 1 tablet by mouth once daily. Taking Yes promethazine (PHENERGAN) 25 mg tablet Take 1 tab by mouth every 4 hours as needed for nausea. iv contrast (will be provided with radiology test) CT ABD/PEL -Inject, intravenously, once for 1 dose.No IV access, insert saline lock prior to the beginning of sedation, infusion, injection of imaging exam. Discontinue saline lock post exam. If Pt. has a central line or IVAD, may access for administration according to line specific nursing protocol. Once exam is complete flush line and de-access according to line specific nursing protocol in the CT contrast administration guidelines link. Patient not taking: Reported on 04/06/2024 enteric contrast (will be provided with radiology test) For CT ABD/PEL W IVCON Routine order Administer, As Directed One Time Only, via Oral, Rectal, both Oral and Rectal, Enteric Tube, Stoma or Indwelling Catheter, Enteric Contrast as designated per enteric contrast guidelines No medication comments found. ALLERGIES Allergen Reactions Erythromycin Diarrhea, GI Upset Abdominal cramping Penicillins Unknown Objective PHYSICAL EXAM: General: alert and oriented and healthy appearance. Pertinent negatives noted - not distressed. Skin: normal color, no rash or lesions. HEENT: No additional findings for patient's neck. Cardiovascular: regular rate and rhythm, normal S1 and S2, no rub, murmurs, or gallop. Respiratory: normal breath sounds, no wheezes or crackles. No chest wall deformity or tenderness. Abdomen: bowel sounds present and soft. Pertinent negatives noted - not tender. Extremities: no deformity, no edema or tenderness, no joint swelling or clubbing. Neurological: normal cognition and motor skills. Gait normal. No weakness or sensory deficit. PAIN ASSESSMENT: VITALS: BP 151/70 Pulse 64 Temp 97.5 Resp 14 Ht 5' 2 (1.58m) Wt 118 lb (53.5kg) SpO2 100% BMI 21.58 kg/(m^2). Diagnostic tests reviewed for today's visit: Lab Value Units Date High Low HB 9.4 g/dL 04/19/2024 15.5 11.5 HCT 27.1 % 04/19/2024 46.0 36.0 WBC 4.22 k/uL 04/19/2024 11.00 3.70 PLT 119 k/uL 04/19/2024 400 150 NA 138 mmol/L 04/05/2024 144 136 K 4.2 mmol/L 04/05/2024 5.1 3.7 GLUC 102 mg/dL 04/05/2024 99 74 BUN 29 mg/dL 04/05/2024 21 7 CREAT 1.22 mg/dL 04/05/2024 0.96 0.58 PTSEC No results within date range. INR No results within date range. APTT No results within date range. ALT 21 U/L 04/05/2024 38 7 AST 30 U/L 04/05/2024 35 13 TBILI 0.9 mg/dL 04/05/2024 1.3 0.2 TSH 1.730 mIU/L 03/19/2024 4.200 0.270 Lab Value Units Date High Low HCGQT No results within date range. UHCG No results within date range. HCG, BODY* No results within date range. Lab Value Units Date High Low ABORHD No results within date range. ABSCREEN No results within date range. No results found for: HBA1C No results found for this or any previous visit (from the past 8760 hour(s)). No results found for this or any previous visit (from the past 87940 hour(s)). Implantable Devices: right chest port Patient denies Blood thinners The Following Tests/Procedures Have Been Initiated: No orders per surgeon in Epic Labs 04/05/24 and 04/12/24 reviewed Assessment/Plan Diagnosis: Attention to colostomy (HCC) [Z43.3] PLAN Planned Procedure: Procedure(s) with comments: LAPAROSCOPIC COLOSTOMY REVERSAL (N/A) - ERAS Instructions Given to Patient: Instructions located in the after visit summary. Patient given verbal and written preop instructions and voices comprehension and compliance. I spent a total of 40 minutes on the date of the service which included preparing to see the patient, [id number] patient care, completing clinical documentation, obtaining and/or reviewing separately obtained history, performing a medically appropriate examination, and counseling and educating the patient/family/caregiver. SIGNATURE: Sandra Alvares APRN.CNP PATIENT NAME: Gasper Reed DATE: April 20, 2024 TIME: 2:20 PM PAGER/CONTACT #: [facility] 04-20-2024 History and physical note Images from the original note were not included. [facility] HISTORY AND PHYSICAL EXAMINATION SERVICE DATE: 04/20/2024 SERVICE TIME: 2:20 PM PRIMARY CARE PHYSICIAN: Emily Casanova DO Assessment Patient has the following medical conditions which may affect leslie-operative course: Preop examination Medical conditions which may affect the perioperative course were address in today's visit. Attention to colostomy (HCC) Surgery scheduled 04/24/24 Rheumatoid arthritis without rheumatoid factor, unspecified site (HCC) Patient reports - mild Platelets decreased (HCC) Platelet Count 150 - 400 k/uL 119 Low 114 Low [address] Mccoy 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 chemotherapy Component Ref Range & Units 1 d ago (04/19/24) 8 d ago (04/12/24) 2 wk ago (04/05/24) 3 wk ago (03/29/24) 1 mo ago (03/21/24) 1 mo ago (03/19/24) 1 mo ago (02/28/24) WBC 3.70 - 11.00 k/uL 4.22 4.03 4.49 5.06 4.61 4.17 3.04 Low RBC 3.90 - 5.20 m/uL 2.59 Low 2.64 Low 2.72 Low 2.84 Low 2.67 Low 2.61 Low 2.73 Low Hemoglobin 11.5 - 15.5 g/dL 9.4 Low 9.4 Low 9.6 Low 9.9 Low 9.3 Low 9.1 Low 9.0 Low Hematocrit 36.0 - 46.0 % 27.1 Low 27.6 Low Chronic hypertension Reports mostly controlled at home ( brought her home BPS for the last months SBP 140s - 112 DBP 60s-80s) Reports its always elevated at the doctors office visits On Lisinopril-HCTZ - instructed to hold DOS but recommended to bring to the hospital. BP elevated at PST 151/70. Patient denies current headache, dizziness, vision changes, SOB, chest pain. Instructed patient to continue monitor BP at home, if stays high or experience symptoms to contact PCP. [place] Activity Status Index: METS: Climb a flight of stairs or walk up a hill (5.50 METs) DASI Score: 5.5 Patient denies any chest pain or undue shortness of breath with the above physical activity. Clinical Frailty Scale: 3. Well, with treated comorbid disease ARISCAT Score: Age: 51-80 Preoperative SpO2: >=96% Respiratory infection in the last month: No Preoperative anemia: No Surgical incision: peripheral Duration of surgery: >3 hrs Emergency procedure: No ARISCAT Score: 26 ANESTHESIA FINDINGS: Intubation History: No history of difficult intubation. No abnormal airway history Significant Anesthesia Considerations: potential postop nausea/vomiting Airway History: No history of difficult airway No abnormal airway history I - PHYSICAL EVALUATION AIRWAY Patient intubated: No. DENTAL Dental findings: teeth intact. II - ANESTHESIA PLAN Anesthetic Plan: general Beta [place] Monitoring Plan Post Procedure Analgesic Plan Prepared for Surgery: CONSULTS: Patient does not require consults for optimization at this time Planned Anesthetic: general The Following Tests/Procedures Have Been Initiated: No orders of the defined types were placed in this encounter. REASON FOR VISIT: Gasper Reed is a 73 year old female who is scheduled for Procedure(s) with comments: LAPAROSCOPIC COLOSTOMY REVERSAL (N/A) - LULU at the request of @REFPROV2@ for routine H&P. My final recommendation will be communicated back to the requesting physician by way of shared medical record or letter. Subjective The patient has the following: COVID-19 Immunization Status Overdue - Covid-19 Vaccine (1) Never done No completion, postpone, frequency change, or communication history exists for this topic. CHIEF COMPLAINT: The reason for this visit is to perform a comprehensive review of the patient's past medical history, assess their current health status and obtain any additional testing required based on anesthesia guidelines. We will also identify any potential anesthesia problems or contraindications to the planned procedure. HPI: Patient is a 73 year old female who presents for pre surgical testing. Patient reports a hx of ovarian cancer. Reports , developed partial large bowel obstruction status post transverse loop diverting colostomy in June 2023. Colostomy bag is in place. She is status post chemotherapy - carboplatin/taxol managed by Dr. Mccoy, hematology oncology. Reports last chemotherapy infusion was January 22. Now she is on Lynparza. After discussing with surgeon, patient agrees to surgical intervention. Risk and benefits discussed by surgeon. Patient denies any other problems or concerns at this time. REVIEW OF SYSTEMS: General: Negative for: fever. Neurological: Negative for: delirium, dementia, seizures, TIA and strokes. Respiratory: Negative for: asthma, COPD, pneumonia within 6 weeks, URI < 2 weeks and obstructive sleep apnea. Cardiovascular: Positive for: hypertension Negative for: atrial fibrillation, CAD, chest pain, DVT/PE and recent MA. GI: Negative for: abdominal pain, dysphagia, hepatitis, liver disease, nausea, vomiting and ETOH >2 drinks/day. : Negative for: dysuria, hematuria, urinary incontinence and renal failure. 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 Endocrine: No history of diabetes. Has not taken steroids within the past 30 days. No history of endocrinological symptoms or problems. Negative for: diabetes mellitus and hypothyroidism. Hematology: Positive for: anemia and thrombocytopenia. Negative for: factor V Leiden, hemophilia and von Willebrand disease. Oncology: Ovarian ca. No history of CA metastasis, chemo within 30 days, or radiotherapy within 90 days. No history of oncological symptoms or problems. Psych: Positive for: anxiety. Musculoskeletal: Negative for joint pain or swelling, back pain or muscle pain. Skin: Negative for lesions, rash and itching. PAST MEDICAL HISTORY Diagnosis Date Arthritis Attention to colostomy (HCC) Cataract Colostomy in place (HCC) ovarian cancer, tumor leaning against bowel Essential hypertension, benign 07/25/1994 Generalized anxiety disorder Nausea and vomiting with chemotherapy and anesthesia Ovarian cancer on left (HCC) PONV (postoperative nausea and vomiting) PAST SURGICAL HISTORY Procedure Laterality Date COLOSTOMY 07/15/2023 transverse loop diverting L'SCOPE DX W/WO BRUSHINGS/WASHINGS 07/15/2023 with peritoneal biopsy LAPAROSCOPIC OMENTECTOMY 10/28/2023 LIG/TRNSXJ FLP TUBE ABDL/VAG APPR UNI/BI 07/25/1981 Tubal ligation TONSILLECTOMY & ADENOIDECTOMY <AGE 12 07/25/1962 TOTAL ABDOM HYSTERECTOMY 10/28/2023 TOTAL ABDOMINAL HYSTERECT W/WO RMVL TUBE OVARY 10/28/2023 FAMILY HISTORY Problem Relation Age of Onset Osteoporosis Mother smoker other (osteoarthritis) Mother Cancer Mother Coronary Artery Disease Father MA age 40's, age 60's; also smoked and alcoholic Mental illness Sister Renal Disease Sister Cancer Sister other (rheumatoid arthritis) Sister Coronary Artery Disease Brother MA age 49, smoker, recovering alcoholic Breast Cancer Paternal Grandmother late 70's Diabetes Paternal Grandfather Heart Paternal Grandfather Breast Cancer Maternal Aunt age 65 Ovarian cancer Maternal Aunt Social History Tobacco Use Smoking status: Former Current packs/day: 0.00 Types: Cigarettes Start date: 07/25/1972 Quit date: 07/25/1974 Years since quittin.7 Smokeless tobacco: Never Tobacco comments: Pt smoked an occ cigarette for 2 approx years Vaping Use Vaping status: Never Used Substance Use Topics Alcohol use: Not Currently Alcohol/week: 2.0 standard drinks of alcohol Types: 2 Glasses of Wine (5oz) per week Drug use: No Prior to Admission medications as of 04/20/24 1424 Medication Sig Last Dose Taking metroNIDAZOLE (FLAGYL) 500 mg tablet Take two tabs by mouth at 1pm, 3pm, and 11pm the day prior to surgery. Taking Yes neomycin 500 mg tablet Take two tabs by mouth at 1pm, 3pm, and 11pm the day prior to the surgery. Taking Yes olaparib (LYNPARZA) 100 mg tablet Take 2 tablets (200 mg) by mouth two times a day. Patient taking differently: Take 200 mg by mouth two times a day. 8 am and 8 pm Taking Yes pantoprazole DR (PROTONIX) 40 mg tablet take 1 tablet by mouth every day Taking Yes ondansetron (ZOFRAN) 8 mg tablet Take 1 tablet by mouth every 8 hours as needed for nausea/vomiting. Taking Yes acetaminophen (TYLENOL) 500 mg tablet Take 2 tablets by mouth every 6 hours. Patient taking differently: Take 1,000 mg by mouth every 6 hours as needed. Taking Yes lisinopril-hydroCHLOROthiazide (ZESTORETIC) 20-12.5 mg per tablet Take 1 tablet by mouth once daily. Patient taking differently: Take 1 tablet by mouth two times a day. Taking Yes vitamin b complex capsule Take 1 capsule by mouth once daily. Taking Yes polyethylene glycol 3350 (MIRALAX) 17 gram/dose powder Take 34 g by mouth once daily. Dissolve dose in 4 - 8 ounces of liquid and take as directed. Taking Yes oxybutynin ER (DITROPAN XL) 10 mg 24 hr tablet Take 15 mg by mouth once daily. Taking Yes lidocaine-prilocaine (EMLA) 2.5-2.5 % cream Apply 60 minutes prior to accessing port Taking Yes calcium carbonate (CALCIUM 600 ORAL) Take 1 tablet by mouth once daily. Taking Yes promethazine (PHENERGAN) 25 mg tablet Take 1 tab by mouth every 4 hours as needed for nausea. iv contrast (will be provided with radiology test) CT ABD/PEL -Inject, intravenously, once for 1 dose.No IV access, insert saline lock prior to the beginning of sedation, infusion, injection of imaging exam. Discontinue saline lock post exam. If Pt. has a central line or IVAD, may access for administration according to line specific nursing protocol. Once exam is complete flush line and de-access according to line specific nursing protocol in the CT contrast administration guidelines link. Patient not taking: Reported on 04/06/2024 enteric contrast (will be provided with radiology test) For CT ABD/PEL W IVCON Routine order Administer, As Directed One Time Only, via Oral, Rectal, both Oral and Rectal, Enteric Tube, Stoma or Indwelling Catheter, Enteric Contrast as designated per enteric contrast guidelines No medication comments found. ALLERGIES Allergen Reactions Erythromycin Diarrhea, GI Upset Abdominal cramping Penicillins Unknown Objective PHYSICAL EXAM: General: alert and oriented and healthy appearance. Pertinent negatives noted - not distressed. Skin: normal color, no rash or lesions. HEENT: No additional findings for patient's neck. Cardiovascular: regular rate and rhythm, normal S1 and S2, no rub, murmurs, or gallop. Respiratory: normal breath sounds, no wheezes or crackles. No chest wall deformity or tenderness. Abdomen: bowel sounds present and soft. Pertinent negatives noted - not tender. Extremities: no deformity, no edema or tenderness, no joint swelling or clubbing. Neurological: normal cognition and motor skills. Gait normal. No weakness or sensory deficit. PAIN ASSESSMENT: VITALS: BP 151/70 Pulse 64 Temp 97.5 Resp 14 Ht 5' 2 (1.58m) Wt 118 lb (53.5kg) SpO2 100% BMI 21.58 kg/(m^2). Diagnostic tests reviewed for today's visit: Lab Value Units Date High Low HB 9.4 g/dL 04/19/2024 15.5 11.5 HCT 27.1 % 04/19/2024 46.0 36.0 WBC 4.22 k/uL 04/19/2024 11.00 3.70 PLT 119 k/uL 04/19/2024 400 150 NA 138 mmol/L 04/05/2024 144 136 K 4.2 mmol/L 04/05/2024 5.1 3.7 GLUC 102 mg/dL 04/05/2024 99 74 BUN 29 mg/dL 04/05/2024 21 7 CREAT 1.22 mg/dL 04/05/2024 0.96 0.58 PTSEC No results within date range. INR No results within date range. APTT No results within date range. ALT 21 U/L 04/05/2024 38 7 AST 30 U/L 04/05/2024 35 13 TBILI 0.9 mg/dL 04/05/2024 1.3 0.2 TSH 1.730 mIU/L 03/19/2024 4.200 0.270 Lab Value Units Date High Low HCGQT No results within date range. UHCG No results within date range. HCG, BODY* No results within date range. Lab Value Units Date High Low ABORHD No results within date range. ABSCREEN No results within date range. No results found for: HBA1C No results found for this or any previous visit (from the past 8760 hour(s)). No results found for this or any previous visit (from the past 23246 hour(s)). Implantable Devices: right chest port Patient denies Blood thinners The Following Tests/Procedures Have Been Initiated: No orders per surgeon in Epic Labs 04/05/24 and 04/12/24 reviewed Assessment/Plan Diagnosis: Attention to colostomy (HCC) [Z43.3] PLAN Planned Procedure: Procedure(s) with comments: LAPAROSCOPIC COLOSTOMY REVERSAL (N/A) - ERAS Instructions Given to Patient: Instructions located in the after visit summary. Patient given verbal and written preop instructions and voices comprehension and compliance. I spent a total of 40 minutes on the date of the service which included preparing to see the patient, [id number] patient care, completing clinical documentation, obtaining and/or reviewing separately obtained history, performing a medically appropriate examination, and counseling and educating the patient/family/caregiver. SIGNATURE: Sandra Alvares APRN.CNP PATIENT NAME: Gasper Reed DATE: April 20, 2024 TIME: 2:20 PM PAGER/CONTACT #: documented in this encounter [facility] 04-20-2024 History of Present illness Narrative [facility] Refill Assessment Medication(s): Lynparza (olaparib) Patient's current medication list and adherence status to current therapy were reviewed by Specialty Pharmacy clinical pharmacist to identify any new drug interactions or non-compliance to therapy. Therapy continues to be appropriate for disease, patient response, and medical condition. Verification of therapeutic benefit and effectiveness with current therapy was completed. Adverse events, barriers in adherence, and side effects were assessed and addressed if applicable. Will proceed with refill with no changes in therapy - patient progressing towards achieving therapeutic goals based on medication-specific laboratory parameters, disease state markers and outcomes. Office/provider notes have been reviewed prior to dispensing the medication. 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 Patient confirmed: Yes Med/dose confirmed: Yes Supplies needed: No supplies needed Missed doses: No Estimated days supply on hand: 6 Next cycle/dose due: 04/20/24 Copay amount: 35 Copay form of payment: Credit card on file Payment confirmed: Yes Delivery method: FedEx Signature required: Waived on patient request Delivery address: [address] [place] [address] Delivery date: 04/26/24 Questions or concerns for the pharmacist?: No Did you have any side effects believed to be related to this medication, that resulted in hospitalization?: No Current Outpatient Medications on File Prior to Visit Medication Sig metroNIDAZOLE (FLAGYL) 500 mg tablet Take two tabs by mouth at 1pm, 3pm, and 11pm the day prior to surgery. neomycin 500 mg tablet Take two tabs by mouth at 1pm, 3pm, and 11pm the day prior to the surgery. promethazine (PHENERGAN) 25 mg tablet Take 1 tab by mouth every 4 hours as needed for nausea. olaparib (LYNPARZA) 100 mg tablet Take 2 tablets (200 mg) by mouth two times a day. (Patient taking differently: Take 200 mg by mouth two times a day. 8 am and 8 pm) pantoprazole DR (PROTONIX) 40 mg tablet take 1 tablet by mouth every day ondansetron (ZOFRAN) 8 mg tablet Take 1 tablet by mouth every 8 hours as needed for nausea/vomiting. iv contrast (will be provided with radiology test) CT ABD/PEL -Inject, intravenously, once for 1 dose.No IV access, insert saline lock prior to the beginning of sedation, infusion, injection of imaging exam. Discontinue saline lock post exam. If Pt. has a central line or IVAD, may access for administration according to line specific nursing protocol. Once exam is complete flush line and de-access according to line specific nursing protocol in the CT contrast administration guidelines link. (Patient not taking: Reported on 04/06/2024) enteric contrast (will be provided with radiology test) For CT ABD/PEL W IVCON Routine order Administer, As Directed One Time Only, via Oral, Rectal, both Oral and Rectal, Enteric Tube, Stoma or Indwelling Catheter, Enteric Contrast as designated per enteric contrast guidelines acetaminophen (TYLENOL) 500 mg tablet Take 2 tablets by mouth every 6 hours. (Patient taking differently: Take 1,000 mg by mouth every 6 hours as needed.) lisinopril-hydroCHLOROthiazide (ZESTORETIC) 20-12.5 mg per tablet Take 1 tablet by mouth once daily. (Patient taking differently: Take 1 tablet by mouth two times a day.) vitamin b complex capsule Take 1 capsule by mouth once daily. polyethylene glycol 3350 (MIRALAX) 17 gram/dose powder Take 34 g by mouth once daily. Dissolve dose in 4 - 8 ounces of liquid and take as directed. oxybutynin ER (DITROPAN XL) 10 mg 24 hr tablet Take 15 mg by mouth once daily. lidocaine-prilocaine (EMLA) 2.5-2.5 % cream Apply 60 minutes prior to accessing port calcium carbonate (CALCIUM 600 ORAL) Take 1 tablet by mouth once daily. No current facility-administered medications on file prior to visit. 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 Administration: Administer approximately every 12 hours with or without food. Swallow tablets whole - Nausea and vomiting were reported more frequently when olaparib was administered in a fasted state. Administering olaparib after a small meal or snack may help alleviate potential nausea and vomiting - Avoid grapefruit, grapefruit juice, [place] oranges, or [place] orange juice Warnings: - Hypersensitivity - Pulmonary toxicity - Secondary malignancy - Thromboembolic events Side Effects: include but are not limited to - Abdominal pain - Constipation/diarrhea - Nausea/Vomiting - Anemia - Fatigue - PERAZA - Myalgia Emetic potential: Moderate to high emetic risk (>30% frequency of emesis) - NCCN. Antiemetic is recommended. Zofran is on medication list Monitoring: - CBC at baseline and monthly thereafter, or as clinically indicated - Renal function - Signs/symptoms of venous thrombosis, pulmonary embolism, and pneumonitis - Adherence Drug-Drug Interactions: none Baseline: - CrCl 36 mL/min - Hgb 9.3 - Plt 137 - ANC2.81 Est. Tx Plan Start Date: No information available Estimated Start Date Info: Per Dr. Mccoy's discretion Est. Estimated Treatment Duration: Until disease progression or unacceptable toxicity Lance Hawkins RPh documented in this encounter [facility] 04-20-2024 Instructions Sandra Alvares APRN.HOUSEKEEPING ASSISTANT - 04/20/2024 7:33 AM EDT PATIENT PREOPERATIVE INSTRUCTIONS Your surgeon has scheduled for your procedure at this surgery center: [facility]: [phone], [address] [id number] Please read below carefully for your personalized instructions. Surgery Date:04/24/24 Your surgeon's office will provide you with your ARRIVAL TIME for surgery. - If you have not received an arrival time by the afternoon before your surgery date, please follow up with your surgeon's office. - If you are scheduled for Tuesday surgery, please make sure you have your arrival time by Tuesday afternoon. - Please be aware that emergency situations arise, which may delay or change your surgical time. If this happens, your surgeon's office will notify you as soon as possible and regret any inconvenience. Dietary Restrictions: - Nothing to eat or drink after midnight except for a sip of water with approved medications. Please stop ALL clear liquids 2 hours prior to your ARRIVAL TIME. This is important because otherwise your surgery may have to be cancelled. Blood Thinning Medications: - Stop NSAIDS (Ibuprofen, Advil, Aleve, Motrin, Celebrex, Mobic, etc.) 7 days before surgery, or as directed by your surgeon. You may take Tylenol (Acetaminophen) or any of your pain medications that do not contain aspirin or NSAIDS as needed. IF YOU TAKE ANY OF THE FOLLOWING BLOOD THINNERS, PLEASE CONTACT YOUR SURGEON AND THE PHYSICIAN WHO PRESCRIBES IT FOR YOU IN ORDER TO GET PERIOPERATIVE INSTRUCTIONS SOON POSSIBLE. BLOOD THINNERS: Aspirin , Coumadin, Plavix, Eliquis, Pradaxa, Xarelto, Lovenox, Brilinta, Effient, Savaysa, Arixtra, etc - Stop Vitamin E, fish oil, multivitamins, Marijuana, CBD oil and other over the counter herbals and dietary supplements 7 days before surgery. - This would not apply to cancer patients who are prescribed Marinol or any other prescription form on marijuana or CBD. Medications: Pre-Surgery Med Instructions Medication Instructions metroNIDAZOLE (FLAGYL) 500 mg tablet As per surgeon's recommendation neomycin 500 mg tablet As per surgeon's recommendation olaparib (LYNPARZA) 100 mg tablet As per surgeon's recommendation pantoprazole DR (PROTONIX) 40 mg tablet Take morning of surgery with sip of water, no other fluids ondansetron (ZOFRAN) 8 mg tablet Take morning of surgery with sip of water, no other fluids acetaminophen (TYLENOL) 500 mg tablet Take morning of surgery with sip of water, no other fluids lisinopril-hydroCHLOROthiazide (ZESTORETIC) 20-12.5 mg per tablet HOLD the morning of surgery but bring to the hospital vitamin b complex capsule Continue until night before surgery polyethylene glycol 3350 (MIRALAX) 17 gram/dose powder Continue until night before surgery oxybutynin ER (DITROPAN XL) 10 mg 24 hr tablet Continue until night before surgery lidocaine-prilocaine (EMLA) 2.5-2.5 % cream As needed calcium carbonate (CALCIUM 600 ORAL) Continue until night before surgery HOLD - JUANCHO inhibitors (Angiotensin-converting enzyme inhibitors) and ARBs (Angiotensin II receptor blockers) Day of surgery. Use inhalers as prescribed. Please bring inhalers. Weight loss medications: - Sympathomimetics such as Adipex-P (Phentermine): Stop 4 days before surgery. - Contrave (Naltrexone/Bupropion) Hold 2-3 days. - Qsymia (Phentermine/Topiramate - Please contact your prescribing provider for Pre op directions. (Depending on the patients dose this medication may need tapered off. They should get pre-op directions from their prescribing provider.) - GLP-1 Agonists (oral and injectables) Hold 7 days. Patients with Diabetes Mellitus: Please follow up with the provider that manages your diabetes and how to prepare you for surgery. Do not take the following medications Morning of surgery: Trajenta, Metformin, Actos/Pioglitazone and Amaryl/Glimepiride. For the following Medications, please HOLD 2 DAYS PRIOR TO SURGERY: Glucotrol/Glipizide, Januvia/Sitagliptin, Glyburide, Prandin/Repaglinide, Starlix/Nateglinide, Symlin/Pramlintide For the following Medications, please HOLD 3 DAYS PRIOR TO SURGERY: Canagliflozin/Invokana, Dapagliflozin/Farxiga, Empagliflozin/Jardiance, Invokamet/ canagliflozin and metformin, Xigduo XR/ dapagliglozin and metformin, Glyxambi/ empagliflozin and metformin, Syndardy/ empagliflozin and metformin For the following Medications, please HOLD 4 DAYS PRIOR TO SURGERY: Ertugliflozin/Steglatro For the following Medications, please HOLD 7 DAYS PRIOR TO SURGERY: GLP-1 AGONIST: Adlyxin (lixisenatide), Bydureon BCise (exenatide suspension), Byetta (exenatide), Mounjaro (tirzepatide), Ozempic (semaglutide injection), Rybelsus (semaglutide tablets), Tanzeum (albiglutide), Trulicity (dulaglutide), Victoza (liraglutide), Wegovy (semaglutide), Saxenda (liraglutide) Insulin Medication Instructions: Please follow up with the provider that manages your Insulin and how to prepare you for surgery. If you start any new medications after today's visit, please contact the surgeon's office. Important Reminders: - If you have a stimulator, implant or pump that requires a remote, please bring the remote with you day of surgery. - If you use CPAP/BIPAP, bring the machine with you to the surgery center. - If you are prescribed inhalers for breathing, continue using them AND bring them to the surgery center. - Candy, mints, gum and tobacco products are NOT permitted the morning of surgery. - Hearing aids, dentures and glasses may be worn the morning of surgery. - NO jewelry, body piercings, makeup, hairpins or contacts are to be worn the day of surgery. - Oral hygiene and a shower or bath is required the evening before or the morning of surgery. - NO lotion, creams, powders or deodorants on the skin the day of surgery. - Wear loose, comfortable clothing that will accommodate bandages. - Your length of stay will be determined by your surgeon. - You will need to have someone else (Family or friend) to drive you home once discharged from the hospital. You cannot drive yourself home after surgery. - YOU MUST HAVE A RESPONSIBLE FISHING TOOL TECHNICIAN OIL WELL TAKE YOU HOME. A PERINATAL SOCIAL WORKER, CAB OR UBER FISHING TOOL TECHNICIAN OIL WELL CANNOT BE MADE A RESPONSIBLE FISHING TOOL TECHNICIAN OIL WELL. - If you are undergoing an outpatient procedure you must have someone drive you home and stay with you for the first 24 hours. Your ride home must be at least 18 years old or older. Your surgery may be cancelled if you do not have someone to drive you home or take care of you. - You cannot stay in a hotel alone after an outpatient surgery. - It is recommended patients have a 72-hour period between getting their vaccine and the date of surgery. Visitation: Visitors to any [facility] facility: Any individual who is sick should not visit. Visitors to patients with COVID-19 must follow these guidelines, which include wearing a mask, eye protection, gown and gloves. [facility] in [place] Visitation hours: 7 AM to 9 PM. Pre-Surgery Unit - Patients may have up to 2 visitors at a time. PACU recovery Unit - Patients may have up to 1-2 visitors at a time. [facility] [place] Pre-Surgery area - 1 visitor at a time due to limited space. PACU recovery area - No visitors due to limited space unless patient is a minor due to limited space. If you develop symptoms such as a fever, cold, or flu, or have other changes to your health within TWO DAYS of scheduled surgery or the morning of surgery, please contact the surgeon's office. Personal Belongings: - Leave ALL valuables and money at home or with family members. - You will need a form of ID and insurance card to check in the morning of surgery. - If you do not have a copy of Advance Directives on file with us, please bring a copy with you on the day of surgery. If you already have an Advance Directive, please fax a copy to [phone] or email to for it to be added to your chart. If you do not have an Advance Directive, you can find the appropriate form and more information at [email or web address]. We recommend that you complete the Advance Directive form found on the website and bring it with you the day of your surgery. It can be witnessed and scanned into your chart that day. IF you are having a TOTAL KNEE, HIP REPLACEMENT OR ORTHOPEDIC SURGERY: - Orthopedic patients at [facility] listed as outpatient, please bring walker into the building. - Orthopedic patients at [facility] listed as to be admitted, please leave walkers in the car or with a family member. - [facility]opedic patients at [facility] [place], please bring the walker into the building day of surgery. Hibiclens provided and instructions given per [facility] nurse The anti-bacterial soap (Hibiclens) should be used TWICE prior to surgery: The night before surgery and the morning of surgery: - If you plan to wash your hair, do so with your regular shampoo. Then rinse hair and body thoroughly to remove any shampoo residue - Wash your face with water or your regular soap - Thoroughly rinse your body with water from the neck down - Apply Hibiclens directly on your skin or on a wet washcloth and wash gently. Move away from the shower stream when applying Hibiclens to ensure the CHG binds to the skin. - Pay special attention to the area where your surgery will be performed - Rinse thoroughly - Apply clean bedding and clean clothing after shower Do not use your regular soap after applying and rinsing Hibiclens. Do not apply any lotions, deodorants, powders, or perfumes to the body areas that have been cleaned with Hibiclens. Do not use Hibiclens: - If you are allergic to Chlorhexidine gluconate or any other ingredient in this preparation - In contact with the meninges - In the genital area - On wounds that involve more than the superficial layers of the skin Please review Hibiclens pamphlet prior to use. Sandra Alvares APRN.CNP 04/20/24 documented in this encounter [facility] 04-17-2024 Telephone encounter Note [facility] Care Coordination FOLLOW-UP NOTE Patient identified by name and date of . YES Spoke to patient Summary: (Reason for follow-up) Question on flu shot Concerns: (New Barriers to care) Spoke to patient. No contraindication for getting a flu shot. Patient stated she normally gets her flu shot in April, patient stated she might be more comfortable with waiting until after surgery. Care Coordination Plan: No further follow up needed at this time Joy Bolaños RN April 17, 2024 [facility] 04-17-2024 Miscellaneous Notes [facility] Care Coordination FOLLOW-UP NOTE Patient identified by name and date of . YES Spoke to patient Summary: (Reason for follow-up) Question on flu shot Concerns: (New Barriers to care) Spoke to patient. No contraindication for getting a flu shot. Patient stated she normally gets her flu shot in April, patient stated she might be more comfortable with waiting until after surgery. Care Coordination Plan: No further follow up needed at this time Joy Bolaños RN April 17, 2024 documented in this encounter [facility] 04-16-2024 Telephone encounter Note Patient notified. Victorina Rebolledo LPN [facility] 04-16-2024 Miscellaneous Notes Patient notified. Victorina Rebolledo LPN She does not necessarily need to hold Lynparza for the surgery but her platelet count has been trending lower since starting the drug. Check CBC this as scheduled. If platelet count lower than she will be instructed to hold Lynparza. Hiram Mccoy DO Patient called to inform office that she can have her surgery on 04/[address] Miles. She was to inform office due to medication changes that may need to take place. documented in this encounter [facility] 04-16-2024 Telephone encounter Note She does not necessarily need to hold Lynparza for the surgery but her platelet count has been trending lower since starting the drug. Check CBC this as scheduled. If platelet count lower than she will be instructed to hold Lynparza. Hiram Mccoy DO [facility] 04-16-2024 Telephone encounter Note Surgery Checklist Type: LAP COLOSTOMY REVERSAL Admission Type: inpatient Anesthesia: General Date: 04/24/24 Arrival Time: 6:00 AM Surgery Time: 8:00 AM Location: [facility] Zaina Gonzalez [facility] 04-16-2024 Miscellaneous Notes Surgery Checklist Type: LAP COLOSTOMY REVERSAL Admission Type: inpatient Anesthesia: General Date: 04/24/24 Arrival Time: 6:00 AM Surgery Time: 8:00 AM Location: [facility] Zaina oGnzalez documented in this encounter [facility] 04-16-2024 Telephone encounter Note Patient called to inform office that she can have her surgery on 04/[address] Miles. She was to inform office due to medication changes that may need to take place. [facility] Work Phone: 04-06-2024 Telephone encounter Note ORAL ANTI-CANCER AGENTS FOLLOW-UP PHONE CALL/VISIT Patient identified by name and date of . YES Patient is on cycle 1, week 2, day 8 of olaparib for Ovarian Cancer. SYMPTOM ASSESSMENT Headache: No Visual Changes: No Dizziness: No Do you have any periods of confusion? No Mood changes: No Mouth or throat pain: No Appetite: no changes in appetite, appetite fair Taste changes: No Nausea: No had a stomach ache one day feels it was something she ate Vomiting: No Heartburn: No. Weight gain/loss: Yes my weight was down a couple pounds today per epic down 1 lb Episodes of palpitations/chest discomfort/pressure/pain No Shortness of breath: No Cough: No Diarrhea: no Constipation: yes, this AM. Going to increase Miralax to two doses daily for a couple of days and see if this helps alleviate her issue. She discussed this with Dr. Miles today. Bladder/Urinary Changes: None Pain: No=0 (pain 0 on a scale of 0-10). Fever: No Chills: No Cold sensitivity: No Numbness/weakness: No Edema: No Skin changes: skin is irritated around colostomy, new. Mentioned at her OV today with Dr. Miles. Will discuss again with their office. Itching: a little itchy around ostomy. Yellowing of skin or eyes: No Musculoskeletal/joint changes/issues No Bleeding issues: No Activity Level: up to par good Do you need to take naps? No, sleeping 8 hours at night. Advised patient to increase fluid intake, drinking 64 ounces a day. Likes herbal tea, okay in moderation. Does the patient need interventions or same day appointment:No ADDITIONAL FOLLOW UP: The next outreach call is due on: TBD and was scheduled advised patient to call with any questions or concerns. The following lab tests are due: CBC/poss tx 04/12 Verified patient is aware of next appointment in the cancer center: Yes. Verified patient verbalized how to correctly refill the oral agent prescription. Yes Does the patient have any financial difficulties affording this medication? No Patient verbalizes understanding of when to seek Medical Attention? YES Patient verbalizes understanding of after-hours and weekend phone number? YES Patient verbalized importance of medication compliance in taking the oral agent as prescribed. Patient instructed to call if unable to comply. Joy Bolaños RN [facility] 04-06-2024 Miscellaneous Notes ORAL ANTI-CANCER AGENTS FOLLOW-UP PHONE CALL/VISIT Patient identified by name and date of . YES Patient is on cycle 1, week 2, day 8 of olaparib for Ovarian Cancer. SYMPTOM ASSESSMENT Headache: No Visual Changes: No Dizziness: No Do you have any periods of confusion? No Mood changes: No Mouth or throat pain: No Appetite: no changes in appetite, appetite fair Taste changes: No Nausea: No had a stomach ache one day feels it was something she ate Vomiting: No Heartburn: No. Weight gain/loss: Yes my weight was down a couple pounds today per epic down 1 lb Episodes of palpitations/chest discomfort/pressure/pain No Shortness of breath: No Cough: No Diarrhea: no Constipation: yes, this AM. Going to increase Miralax to two doses daily for a couple of days and see if this helps alleviate her issue. She discussed this with Dr. Miles today. Bladder/Urinary Changes: None Pain: No=0 (pain 0 on a scale of 0-10). Fever: No Chills: No Cold sensitivity: No Numbness/weakness: No Edema: No Skin changes: skin is irritated around colostomy, new. Mentioned at her OV today with Dr. Miles. Will discuss again with their office. Itching: a little itchy around ostomy. Yellowing of skin or eyes: No Musculoskeletal/joint changes/issues No Bleeding issues: No Activity Level: up to par good Do you need to take naps? No, sleeping 8 hours at night. Advised patient to increase fluid intake, drinking 64 ounces a day. Likes herbal tea, okay in moderation. Does the patient need interventions or same day appointment:No ADDITIONAL FOLLOW UP: The next outreach call is due on: TBD and was scheduled advised patient to call with any questions or concerns. The following lab tests are due: CBC/poss tx 04/12 Verified patient is aware of next appointment in the cancer center: Yes. Verified patient verbalized how to correctly refill the oral agent prescription. Yes Does the patient have any financial difficulties affording this medication? No Patient verbalizes understanding of when to seek Medical Attention? YES Patient verbalizes understanding of after-hours and weekend phone number? YES Patient verbalized importance of medication compliance in taking the oral agent as prescribed. Patient instructed to call if unable to comply. Joy Bolaños RN Patient returned call and hearing care practitioner was unavailable. Please call patient. Debra Solorzano ORAL ANTI-CANCER AGENTS FOLLOW-UP PHONE CALL/VISIT Called patient, no answer, left a VM requesting a call back from patient. Joy Bolaños RN documented in this encounter [facility] 04-06-2024 Telephone encounter Note Patient returned call and hearing care practitioner was unavailable. Please call patient. Debra Solorzano [facility] 04-06-2024 Instructions Rohit Miles MD - 04/06/2024 10:54 AM EDT Ostomy Information Different Types of Ostomies Ostomy: The term Ostomy or stoma comes from the Australian word meaning mouth or opening. An ostomy or stoma is a surgically created opening that allows waste to leave the body. Output through the stoma cannot be controlled, so a pouch needs to be worn at all times. Ileostomy: a stoma made in the last portion of the small bowel, or ileum. Colostomy: a stoma made from the large intestine, or colon. Urostomy: a stoma to allow urine to bypass the bladder and urethra, usually made from a portion of the intestine. A urostomy may be made from a portion of the small bowel and then be called an ileal conduit. When made from a portion of the large bowel, the urostomy may be called a colon conduit. Wearing A Pouch The basic piece of equipment is a pouch (made of odor-resistant plastic or vinyl) that collects the semi liquid waste. The pouches attach to your body with adhesive skin barriers that are custom fitted by your WOC nurse and do not irritate your skin. A closure at the bottom of the pouch allows you to empty it without removing it from your body You should find it reassuring that the pouch will not be conspicuous. It is small and stays flat, so you do not have to wear baggy clothes. Opaque pouches and fabric pouch covers keep the waste from being visible when you are undressed. The use of a fabric pouch cover also makes wearing the pouch more comfortable by reducing heat build-up between the plastic pouch and your skin. Offensive odor does not have to be a worry either. Modern pouches are made of materials that confine odor to the inside of the pouch. The only time you should notice any odor is the time when you change or empty your pouch. Deodorants placed in the pouch, certain medications, and attention to food intake can control these odors. On the first days after surgery, the WO nurse will change your pouch for you. After a few days, you will begin to participate actively in your ileostomy care. You will start learning how to change the pouch by observing the WOC nurse. The WO nurse's support continues after you leave the hospital. You will see your WO nurse when you see your surgeon at four to six weeks, six months, and one year after you leave the hospital. Living a Full Life with a Stoma Each year about 200,000 people in the [place] have a ostomy surgery - people of all ages (even babies), in all walks of life. There are literally millions of healthy, active people who continue to enjoy full lives 10, 20, even 40 years after their surgery. Wearing a pouch (ostomy collecting device) is one of the biggest changes you will face after surgery. It takes some getting used to, but it is not as difficult as you might imagine. With the help of a WO nurse and some practice, you will regain control over your life and will be able to return to most activities that you did before you were sick. Changing a Pouch The pouch should be changed in the bathroom. This a procedure for managing body waste, and the bathroom provides the proper environment for this. It is not necessary to rinse the pouch every time you empty it, but you may rinse as often as you wish. For aesthetic reasons, some people with ileostomies like to rinse the pouch first thing in the morning and before going to bed. The pouch should be changed about every three to seven days. After surgery, the [facility] nurse will teach you how to do this using the equipment that has been selected to fit your needs. [id number] instructions will be enclosed with your discharge folder. Returning to Daily Activities Traveling With a little planning, you can enjoy traveling as much as you like and where you like. Take plenty of supplies and medications along - double what you think you might need. Do not pack these supplies in luggage that you are going to check through. Carry them with you. If you cannot pack all the supplies you need for an extended trip, find out ahead of time where you can purchase them. You can get a list of equipment dealers from most manufacturers. Physical Activity You will be able to resume physical activity gradually after surgery. The only limits you may have to place on yourself are on very heavy lifting and contact sports, such as football, wrestling, or karate where you could receive a direct blow to your abdomen. Heavy lifting, especially in the first three months or so after surgery, could cause a hernia. But after you recover, you should have no problems lifting and holding heel attacher weights, like small children or bags of groceries. Talk to your doctor about how much you can lift and when. Keeping your pouch on securely for sports is easy to do. For active sports involving running or jumping, a sport brief or close-fitting underpants will hold your pouch snugly against your body. For times when you will get wet, either from perspiring heavily from exercise, the sauna, or from being in a pool or hot tub, you can temporarily use water-proof tape to hold the edges of the pouch to your skin. Your [facility] nurse can show you how to do this. Hygiene & Skin Care You can bathe or shower with your pouch on. As a matter of fact, you will be doing that most of the time, since you should remove your pouch only every three to five days. It is also OK to bathe or shower with the equipment off. Be aware that your stoma may function while your pouch is off, so plan a bath or shower before meals or first thing in the morning before eating or drinking. Keeping the skin around your stoma clean is an important part of your ileostomy care. The waste that comes through your stoma contains digestive enzymes that can be very irritating when they contact your skin. If your skin does become irritated, your skin barrier will not stick as well, forcing you to change the pouch more often and permitting more irritation. When you wash around the stoma, be gentle. Use a clean, soft cloth and a small amount of non-oily soap. Do not be concerned if you see a little blood. Some bleeding is normal because the stoma has such a rich blood supply. Rinse and dry the skin well because soap or bath oil residue can keep the skin barrier from sticking. Use a executive chairman of the board set on cool or use an electric fan as gentle ways to dry your skin. Diet During the first six weeks after surgery, you need to eat soft foods low in fiber to give your intestines a rest. A dietitian will give you detailed nutritional guidelines you can take home in your discharge folder. Except for the first six weeks post surgery, you can eat almost any food you want. As always, your meals should include a sensible amount of food from the four groups every day - dairy products, meat, and other protein sources, fruits and vegetables, breads and cereals. Drink plenty of liquids. You must chew all food thoroughly. Take care to maintain your normal weight because excessive weight gain can affect the fit and wearing time of your pouch. If you remain underweight after you resume a normal diet, you may need calorie and protein supplements. Be sure to consult your dietitian and doctor about it. Intimacy As you recover from your surgery and begin to resume or develop an intimate relationship, give yourself and your partner time. Try to resume or begin your sexual activity in a gradual, non-pressured way. You might try emptying the pouch beforehand. You and your partner may need to make some minor adjustments in positioning to avoid too much friction on your pouch, but contact during lovemaking cannot hurt your stoma. General Patient Concerns Should I get a note from my doctor so I do not have to wear my seatbelt in the car? No. A seatbelt can be adjusted to accommodate the stoma and the pouch. Your safety far outweighs the minor inconvenience of a seatbelt. Will medications be as effective with an ileostomy? Medications for the ileostomate should be prescribed in liquid or tablet form. Enteric coated pills often pass through the body unabsorbed. Discuss this with your physician and pharmacist. What if the pouch leaks and I am away from home? ALWAYS carry a spare set of supplies in case a leak occurs. What if water gets inside the stoma? This will not happen. The wave-like motions of the bowel (peristalsis) move the bowel content in one direction-out of the body. Water would not be harmful, though, if it did get inside the stoma. Will the stoma hurt when it is touched? It will not hurt when it is touched. You will feel pressure, but not pain. For this reason the stoma must be protected from contact injury like blows or chronic rubbing or pressure. There are no pain nerve endings in the stoma. Why is the stoma red? It is red because this is the color of the inner lining of the digestive system. When the stoma is surgically constructed, the ileum is folded back on itself to form a type of cuff. What do I do about odor while I use a public restroom or the bathroom at a friends home? Do not worry about it. That is what bathrooms are for. If you are concerned about odor, you can carry a pocket-sized room deodorizer spray. Flushing of the toilet is usually adequate. Supplies Information Almost everyone with an ileostomy can be at least partly reimbursed by medical insurance. Have your doctor write a prescription for your supplies and have it renewed every year. Most insurance companies, Medicare, and other agencies require this evidence of your need for the supplies. Keep good records and save all your statements and receipts so you will have good tax records or evidence to follow up claims. Because ileostomy supplies are considered prostheses, just like artificial limbs or eyeglasses, they are deductible medical expenses on income tax returns. Check yearly tax codes for specific guidelines. Be sure to keep careful, complete records of your medical expenses for a year so that you will know whether you can deduct them. Ostomy supplies are available in surgical supply houses. Very few drugs stores carry these specialty items. Your [facility] nurse should give you information about local and mail order sources of supply when you are discharged from the hospital. documented in this encounter [facility] 04-06-2024 Telephone encounter Note ORAL ANTI-CANCER AGENTS FOLLOW-UP PHONE CALL/VISIT Called patient, no answer, left a VM requesting a call back from patient. Joy Bolaños RN [facility] 04-06-2024 History of Present illness Narrative Images from the original note were not included. Rohit Miles M.D. Colon & Rectal Surgery [address] [facility], [address] [place] [address] ALEXANDRA Reed is a 73 year old White female with history of LAR for ovarian carcinoma and transverse colostomy HPI The patient was referred by Hiram Mccoy [address] [place] [id number] for my consultation regarding transverse colostomy and history of LAR. My final recommendations will be communicated back to the requesting physician by way of shared Medical record or letter to requesting physician via electronic or [place] mail. The patient is a pleasant 73-year-old female who underwent a complex surgery for ovarian carcinoma including low anterior resection for rectal involvement with 10 cm of remaining bowel distally. The sigmoid colon was stapled off and her existing transverse loop colostomy left in place. She recovered well from this and has been on chemotherapy, with reasonably good stoma function. She is a little constipated despite the stoma noting that she takes MiraLAX once daily and this usually keeps her emptying the bag 2-3 times a day with relatively hard stools. Her incisions seem to heal well. She generally had been doing well with stoma care but notes that since starting her newest chemotherapy agent she has had more skin irritation and leakage problems over the last month. Had a colonoscopy in March of last year which they were able to get past the tumor for but she does not know the full results of this and we will obtain these records. Review of Systems Constitutional: Negative for chills, fever and weight loss. HENT: Negative for congestion, ear pain, hearing loss, sinus pain and sore throat. Eyes: Negative for blurred vision, double vision and pain. Respiratory: Negative for cough, shortness of breath and wheezing. Cardiovascular: Negative for chest pain, palpitations and leg swelling. Gastrointestinal: Negative for abdominal pain, blood in stool, constipation, diarrhea, heartburn, nausea and vomiting. Genitourinary: Negative for dysuria, frequency and urgency. Musculoskeletal: Negative for back pain, joint pain and neck pain. Skin: Negative for itching and rash. Neurological: Negative for dizziness, weakness and headaches. Endo/Heme/Allergies: Negative for environmental allergies. Does not bruise/bleed easily. Psychiatric/Behavioral: Negative for depression and memory loss. The patient is not nervous/anxious and does not have insomnia. PAST MEDICAL HISTORY Diagnosis Date Arthritis Cataract Colostomy in place (HCC) ovarian cancer, tumor leaning against bowel Essential hypertension, benign 07/25/1994 Generalized anxiety disorder Nausea and vomiting with chemotherapy and anesthesia Ovarian cancer on left (HCC) PAST SURGICAL HISTORY Procedure Laterality Date COLOSTOMY 07/15/2023 transverse loop diverting L'SCOPE DX W/WO BRUSHINGS/WASHINGS 07/15/2023 with peritoneal biopsy LAPAROSCOPIC OMENTECTOMY 10/28/2023 LIG/TRNSXJ FLP TUBE ABDL/VAG APPR UNI/BI 07/25/1981 Tubal ligation TONSILLECTOMY & ADENOIDECTOMY <AGE 12 07/25/1962 TOTAL ABDOM HYSTERECTOMY 10/28/2023 TOTAL ABDOMINAL HYSTERECT W/WO RMVL TUBE OVARY 10/28/2023 Social History Tobacco Use Smoking status: Former Current packs/day: 0.00 Types: Cigarettes Start date: 07/25/1972 Quit date: 07/25/1974 Years since quittin.7 Smokeless tobacco: Never Tobacco comments: Pt smoked an occ cigarette for 2 approx years Vaping Use Vaping status: Never Used Substance Use Topics Alcohol use: Yes Alcohol/week: 2.0 standard drinks of alcohol Types: 2 Glasses of Wine (5oz) per week Drug use: No FAMILY HISTORY Problem Relation Age of Onset Osteoporosis Mother smoker other (osteoarthritis) Mother Cancer Mother Coronary Artery Disease Father MA age 40's, age 60's; also smoked and alcoholic Mental illness Sister Renal Disease Sister Cancer Sister other (rheumatoid arthritis) Sister Coronary Artery Disease Brother MA age 49, smoker, recovering alcoholic Breast Cancer Paternal Grandmother late 70's Diabetes Paternal Grandfather Heart Paternal Grandfather Breast Cancer Maternal Aunt age 65 Ovarian cancer Maternal Aunt The ROS, medical, surgical, family, and social history were reviewed by Rohit Miles MD ALLERGIES Allergen Reactions Erythromycin Diarrhea, GI Upset Abdominal cramping Penicillins Unknown Current Outpatient Medications Medication Sig olaparib (LYNPARZA) 100 mg tablet Take 2 tablets (200 mg) by mouth two times a day. pantoprazole DR (PROTONIX) 40 mg tablet take 1 tablet by mouth every day ondansetron (ZOFRAN) 8 mg tablet Take 1 tablet by mouth every 8 hours as needed for nausea/vomiting. enteric contrast (will be provided with radiology test) For CT ABD/PEL W IVCON Routine order Administer, As Directed One Time Only, via Oral, Rectal, both Oral and Rectal, Enteric Tube, Stoma or Indwelling Catheter, Enteric Contrast as designated per enteric contrast guidelines acetaminophen (TYLENOL) 500 mg tablet Take 2 tablets by mouth every 6 hours. lisinopril-hydroCHLOROthiazide (ZESTORETIC) 20-12.5 mg per tablet Take 1 tablet by mouth once daily. (Patient taking differently: Take 1 tablet by mouth two times a day.) vitamin b complex capsule Take 1 capsule by mouth once daily. polyethylene glycol 3350 (MIRALAX) 17 gram/dose powder Take 34 g by mouth once daily. Dissolve dose in 4 - 8 ounces of liquid and take as directed. oxybutynin ER (DITROPAN XL) 10 mg 24 hr tablet Take 15 mg by mouth once daily. lidocaine-prilocaine (EMLA) 2.5-2.5 % cream Apply 60 minutes prior to accessing port calcium carbonate (CALCIUM 600 ORAL) Take 1 tablet by mouth once daily. iv contrast (will be provided with radiology test) CT Chest W -Inject, intravenously, once for 1 dose.No IV access, insert saline lock prior to the beginning of sedation, infusion, injection of imaging exam. Discontinue saline lock post exam. If Pt. has a central line or IVAD, may access for administration according to line specific nursing protocol. Once exam is complete flush line and de-access according to line specific nursing protocol in the CT contrast administration guidelines link. (Patient not taking: Reported on 04/06/2024) iv contrast (will be provided with radiology test) CT ABD/PEL -Inject, intravenously, once for 1 dose.No IV access, insert saline lock prior to the beginning of sedation, infusion, injection of imaging exam. Discontinue saline lock post exam. If Pt. has a central line or IVAD, may access for administration according to line specific nursing protocol. Once exam is complete flush line and de-access according to line specific nursing protocol in the CT contrast administration guidelines link. (Patient not taking: Reported on 04/06/2024) No current facility-administered medications for this visit. OBJECTIVE BP 189/76 (BP Site: Left Arm, BP Position: Sitting, BP Cuff Size: Regular Adult) Pulse 71 Ht 157.5 cm (5' 2) Wt 52.6 kg (116 lb) BMI 21.22 kg/m BMI 21.22 kg/(m^2) Physical Exam Constitutional: General: She is not in acute distress. Appearance: Normal appearance. She is not ill-appearing. Cardiovascular: Rate and Rhythm: Normal rate and regular rhythm. Heart sounds: Normal heart sounds. No murmur heard. No friction rub. No gallop. Pulmonary: Effort: Pulmonary effort is normal. No respiratory distress. Breath sounds: Normal breath sounds. No wheezing or rales. Abdominal: General: There is no distension. Palpations: Abdomen is soft. There is no hepatomegaly. Tenderness: There is no abdominal tenderness. Comments: Is pink and healthy in the left upper quadrant with hard stool in the bag Musculoskeletal: General: No deformity. Normal range of motion. Skin: General: Skin is warm and dry. Findings: No rash. Neurological: Mental Status: She is alert. Coordination: Coordination normal. Gait: Gait normal. Psychiatric: Mood and Affect: Mood normal. Judgment: Judgment normal. Hemoglobin (g/dL) Date Value 04/05/2024 9.6 Hematocrit (%) Date Value 04/05/2024 28.5 WBC (k/uL) Date Value 04/05/2024 4.49 Platelet Count (k/uL) Date Value 04/05/2024 133 Creatinine Date Value Ref Range Status 04/05/2024 1.22 (H) 0.58 - 0.96 mg/dL Final AST Date Value Ref Range Status 04/05/2024 30 13 - 35 U/L Final ALT Date Value Ref Range Status 04/05/2024 21 7 - 38 U/L Final Bilirubin, Total (mg/dL) Date Value 04/05/2024 0.9 Antibody Screen (no units) Date Value 10/20/2023 Negative WBC (k/uL) Date Value 04/05/2024 4.49 RBC (m/uL) Date Value 04/05/2024 2.72 (L) %DIG,%DBS Plan ASSESSMENT/PLAN: 1. Attention to colostomy (HCC) - ICD9: V55.3, ICD10: Z43.3 We discussed the possibility of stoma reversal including the inherent risks of this. Overall she is interested to proceed with this if we think it is reasonable which I do. The colonoscopy results would be helpful to clarify if they found anything and if this needed to be repeated and we will request these now. If we proceed with surgery, I discussed with her that there are several possible plans we would have to determine which of these was best at the time of surgery. We could consider doing the reversal of the colostomy and reanastomosis of the colon and rectum all-in-one surgery with or without an ileostomy, or leaving the colostomy and just reconnecting the colon and rectum. We would try do this laparoscopically but given her history there is an increased chance we would have to do an open surgery. INFORMED CONSENT Gasper Reed Medical Record: [id number] Date: 04/06/2024 Procedure: Laparoscopic colostomy reversal The risks, benefits and anticipated outcomes of the procedure, the risks and benefits of the alternatives to the procedure and the roles and tasks of the personnel to be involved were discussed with the patient and the patient consents to the procedure and agrees to proceed. I verify that I personally obtained Gasper Reed's consent. Rohit Miles MD Dept of [facility] GENERAL SURGERY BATH Follow up: Return for Surgery. Rohit Miles M.D. Please Note: This office note has been created using [employer], a speech recognition software program, and may contain errors including punctuation, grammar, spelling, gender, and inappropriate words or phrases that pertain to the sytem. documented in this encounter [facility] 03-30-2024 Telephone encounter Note Scheduled with patient [facility] Work Phone: 03-30-2024 Miscellaneous Notes Scheduled with patient 1st attempt. Message left for patient to contact office to schedule QWK CBC ?TX(PORT)* CBC/CMP/CA125(PORT)* AND OV(PORT)LAB EARLY* with Dr. Mccoy in 4-6 weeks. Patient started/will start taking olaparib on 03/30/24. Patient informed of Dr. Mccoy's response, stated understanding. PSS- please contact patient to schedule week labs and OV in 4-6 weeks. (See Dr. Mccoy message) Thank you. Joy Bolaños RN Okay to start Lynparza tomorrow. Weekly CBC/possible transfusion. OV with CBC/CMP/CA125 in about 4 to 6 weeks. Hiram Mccoy DO CBC resulted. Joy Bolaños RN Scheduled Patient will be receiving olaparib on 03/28. Dr. Mccoy would like patient to have a CBC prior to starting. Patient can come in tomorrow at 10 am for a CBC. Patient will hold until she receives a start date from Dr. Mccoy. PSS- please schedule patient for a CBC tomorrow 03/29 @ 10 am on the port schedule. Thank you. Joy Bolaños RN documented in this encounter [facility] 03-30-2024 Telephone encounter Note 1st attempt. Message left for patient to contact office to schedule QWK CBC ?TX(PORT)* CBC/CMP/CA125(PORT)* AND OV(PORT)LAB EARLY* with Dr. Mccoy in 4-6 weeks. [facility] 03-29-2024 Telephone encounter Note Patient started/will start taking olaparib on 03/30/24. Patient informed of Dr. Mccoy's response, stated understanding. PSS- please contact patient to schedule week labs and OV in 4-6 weeks. (See Dr. Mccoy message) Thank you. Joy Bolaños RN [facility] 03-29-2024 Telephone encounter Note Okay to start Lynparza tomorrow. Weekly CBC/possible transfusion. OV with CBC/CMP/CA125 in about 4 to 6 weeks. Hiram Mccoy DO [facility] 03-29-2024 Telephone encounter Note CBC resulted. Joy Bolaños RN [facility] 03-29-2024 History of Present illness Narrative Patient is here for IVAD port flush/blood draw per [facility] [place] protocol. IVAD is located in right upper chest. Site cleansed with Chloraprep IVAD accessed with a #20 gauge 3/4 non-coring Gripper needle Flush with 5cc's Normal Saline. Blood Return: Good. 10 cc's blood aspirated and discarded. Blood drawn for CBC. Flushed with: 20 ml Normal Saline. Non-coring needle removed. Paper tape applied to puncture site. Site negative for redness, edema or tenderness. Patient tolerated procedure well. documented in this encounter [facility] 03-28-2024 Telephone encounter Note Scheduled [facility] 03-28-2024 Telephone encounter Note Patient will be receiving olaparib on 03/28. Dr. Mccoy would like patient to have a CBC prior to starting. Patient can come in tomorrow at 10 am for a CBC. Patient will hold until she receives a start date from Dr. Mccoy. PSS- please schedule patient for a CBC tomorrow 03/29 @ 10 am on the port schedule. Thank you. Joy Bolaños RN [facility] 03-22-2024 Telephone encounter Note ORAL ANTI-CANCER AGENTS EDUCATION patient called today for oral medication education of lynparza for Ovarian Cancer Anticipated/Scheduled start date: TBD READINESS TO LEARN Cognitive Ability: Alert and oriented Motivation to Learn: Interested Family Support: Unable to assess - Family not present Instruction Provided to: Patient Patient learns best by: Multiple Methods Factors affecting learning: None Physical limitation affecting learning: None JHAVERI ASSESSMENT: 1.) Verified that patient knows that the oral agents are for cancer and are taken by mouth. Yes 2.) Medication review completed during visit. Yes 3.) Patient is able to swallow pills. Yes 4.) Patient is able to read the drug label/information. Yes 5.) Patient is able to open the medication bottles and packages. Yes 6.) Has patient taken other pills for cancer? No 7.) Is patient experiencing any symptoms that would affect their ability to keep down pills, for example nausea or vomiting? No 8.) Verified that patient understands prescription delivery, benefit investigation and refill process. Yes DRUG-SPECIFIC EDUCATION: 1.) Verified patient knows the drug name. Yes 2.) Verified patient understands the dose and schedule of oral anti cancer agent. Yes 3.) Verified patient knows what to do if a medication dose is missed. Yes 4.) Verified patient understands where to store the drug. Yes 5.) Verified patient understands potential side effects and how to manage them. Yes 6.)Verified patient understands handling precautions of oral anti cancer agent. Yes 7.) Verified patient was given written instructions and understands when and whom to call with questions. Yes 8.) Verified patient understands where and how to return drug. Yes 9.) Verified patient received drug specific adult education handout and neutropenic wallet card Yes EVALUATE: The patient demonstrated an understanding of all the above education using the teach-back method. Yes Instructed to call us with any questions, concerns, and/or unresolved symptoms. Will continue to follow up and provide reinforcement of teaching topics as needed. Joy Bolaños RN [facility] 03-22-2024 Miscellaneous Notes ORAL ANTI-CANCER AGENTS EDUCATION patient called today for oral medication education of lynparza for Ovarian Cancer Anticipated/Scheduled start date: TBD READINESS TO LEARN Cognitive Ability: Alert and oriented Motivation to Learn: Interested Family Support: Unable to assess - Family not present Instruction Provided to: Patient Patient learns best by: Multiple Methods Factors affecting learning: None Physical limitation affecting learning: None JHAVERI ASSESSMENT: 1.) Verified that patient knows that the oral agents are for cancer and are taken by mouth. Yes 2.) Medication review completed during visit. Yes 3.) Patient is able to swallow pills. Yes 4.) Patient is able to read the drug label/information. Yes 5.) Patient is able to open the medication bottles and packages. Yes 6.) Has patient taken other pills for cancer? No 7.) Is patient experiencing any symptoms that would affect their ability to keep down pills, for example nausea or vomiting? No 8.) Verified that patient understands prescription delivery, benefit investigation and refill process. Yes DRUG-SPECIFIC EDUCATION: 1.) Verified patient knows the drug name. Yes 2.) Verified patient understands the dose and schedule of oral anti cancer agent. Yes 3.) Verified patient knows what to do if a medication dose is missed. Yes 4.) Verified patient understands where to store the drug. Yes 5.) Verified patient understands potential side effects and how to manage them. Yes 6.)Verified patient understands handling precautions of oral anti cancer agent. Yes 7.) Verified patient was given written instructions and understands when and whom to call with questions. Yes 8.) Verified patient understands where and how to return drug. Yes 9.) Verified patient received drug specific adult education handout and neutropenic wallet card Yes EVALUATE: The patient demonstrated an understanding of all the above education using the teach-back method. Yes Instructed to call us with any questions, concerns, and/or unresolved symptoms. Will continue to follow up and provide reinforcement of teaching topics as needed. Joy Bolaños RN documented in this encounter [facility] 03-21-2024 History of Present illness Narrative Patient is here for IVAD port flush/blood draw per [facility] [place] protocol. IVAD is located in right upper chest. Site cleansed with Chloraprep IVAD accessed with a #20 gauge 3/4 non-coring Gripper needle Flush with 5cc's Normal Saline. Blood Return: Good. 10 cc's blood aspirated and discarded. Blood drawn for CBC and CMP. Flushed with: 20 ml Normal Saline. Non-coring needle removed. Paper tape applied to puncture site. Site negative for redness, edema or tenderness. Patient tolerated procedure well. documented in this encounter [facility] 03-20-2024 Telephone encounter Note Message relayed to patient. Scheduled lab/port with patient [facility] Work Phone: 03-20-2024 Miscellaneous Notes Message relayed to patient. Scheduled lab/port with patient Left VM for pt to return call to office. Will need additional lab apt made. Roselyn Pittman LPN Can let her know the additional lab work yesterday did not suggest a specific cause for the anemia. I believe the anemia is still recovering from chemotherapy but I would like her to come in for additional lab work to be sure there is not something else we can do to help hasten the recovery of her anemia. Check out comments: Every 2 week CBC/CMP x 4 (for 8 weeks), once patient receives medication. Monthly CA 125. OV/labs in 2 months. Patient to start Limparza and will call in once she knows when she is starting so we can schedule as directed above. Please note that patient has a port. Debra Solorzano documented in this encounter [facility] 03-20-2024 Telephone encounter Note Left VM for pt to return call to office. Will need additional lab apt made. Roselyn Pittman LPN [facility] 03-20-2024 Telephone encounter Note Can let her know the additional lab work yesterday did not suggest a specific cause for the anemia. I believe the anemia is still recovering from chemotherapy but I would like her to come in for additional lab work to be sure there is not something else we can do to help hasten the recovery of her anemia. [facility] 03-19-2024 Telephone encounter Note Check out comments: Every 2 week CBC/CMP x 4 (for 8 weeks), once patient receives medication. Monthly CA 125. OV/labs in 2 months. Patient to start Limparza and will call in once she knows when she is starting so we can schedule as directed above. Please note that patient has a port. Debra Solorzano [facility] 03-19-2024 History of Present illness Narrative Oncologic problem(s): 1) Serous carcinoma of the left ovary. HPI: The patient is a 73-year-old female with a past medical history significant for hypertension and rheumatoid arthritis. Presented to the ED at [facility] on 07/10/2023 with complaints of nausea and vomiting that started approximately 24 hours before presentation. This was accompanied with diarrhea. She been having intermittent abdominal pain for a couple months. Approximate 10 pound weight loss. Evidently underwent colonoscopy in March that demonstrated a constricted colon. CT A/P 07/10/2023: LOWER THORAX: Normal. Lung bases are clear. No cardiomegaly. No pericardial effusion. ABDOMEN: LIVER: Stable 12 mm lesion within hepatic segment 7 and 14 mm lesion within hepatic segment 3 suggestive of hemangiomata. PANCREAS: Normal. No focal cystic or solid mass. SPLEEN: Normal. Normal size without focal cystic or solid mass. ADRENALS: Normal. No nodules. KIDNEYS AND URETERS: Normal. Normal renal size and position. No hydronephrosis. STOMACH AND BOWEL: Multiple dilated thick-walled small bowel loops noted within the lower abdomen. There is fluid distention of the ascending and transverse colon. Prominent wall thickening of the sigmoid colon. PELVIS: APPENDIX: Appendix is visualized and normal in appearance. BLADDER: Normal. REPRODUCTIVE: 4.8 cm left adnexal cystic mass has significantly increased in size from prior study raising possibility of underlying cystic ovarian neoplasm. ABDOMEN and PELVIS: INTRAPERITONEAL SPACE: Interval development of moderate volume ascites. No free air. BONES/JOINTS: No suspicious lytic or blastic abnormality. SOFT TISSUES: Normal. No discrete abdominal or pelvic wall hernia. VASCULATURE: Normal. Abdominal aorta is non-dilated. LYMPH NODES: Interval enlargement of the retroperitoneal lymph nodes adjacent to the aorta and inferior vena cava raising possibility of metastatic disease. IMPRESSION: 1. Interval enlargement of complex cystic left adnexal mass which may represent ovarian neoplasm. 2. Interval development of moderate volume ascites. 3. Multiple thick-walled loops of large and small bowel consistent with inflammatory bowel disease. 4. Enlarging retroperitoneal lymph nodes which may represent metastatic disease. She was transferred to [facility] for gynecologic oncology surgery. Underwent diagnostic laparoscopy with peritoneal biopsy along with transverse loop diverting colostomy on 07/15/2023. Patient was found to have carcinomatosis with diffuse disease on right and left diaphragm. There were dense adhesions between liver immediately lateral to the falciform and diaphragm. Tumor infiltration of the falciform and freddy hepatis was observed. Pelvis was not visualized due to multiple loops of small bowel that were adherent to the pelvis. There was a plaque of tumor overlying the bladder peritoneum. Unable to visualize ovarian masses due to small bowel adherent to the sigmoid colon. Diffuse thickening of the paracolic gutter peritoneum was observed. There was thickened omentum without obvious implants including supracolic omentum with decreased mobility of transverse colon. 1000 cc of murky green ascites was aspirated. Biopsies were obtained of the peritoneal implants. 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 See comment. Identical morphologic features are noted within the present, peritoneal specimen that are found within the recent abdominal fluid cytology specimen, [id number]. Confirmatory immunohistochemistry was performed on the cytology specimen supporting a diagnosis of serous carcinoma. Per initial consultation here: Appetite okay--small meals. Taking Zofran regularly. Small amount reflux--TUMS prn. Ostomy working well. Pain improved. Previous therapy: 1) Neoadjuvant chemotherapy with paclitaxel and carboplatin x3 cycles. 2) Exploratory laparotomy, lysis of adhesions, total abdominal hysterectomy, bilateral salpingo-oophorectomy with en block rectosigmoid resection, cystoscopy and temporary bilateral ureteral stents (urology) on 10/28/23. Pathology: A. Uterus, cervix with right fallopian tube and ovary, total abdominal hysterectomy with right salpingo-oophorectomy: -- Ovary: Involved by high-grade serous carcinoma, status post neoadjuvant chemotherapy, see comment and case summary. -- Fallopian tube: Involved by high-grade serous carcinoma, see comment. -- Endometrium: Atrophic endometrium. -- Myometrium: No significant histopathologic abnormalities. -- Serosa: Involved by high-grade serous carcinoma. -- Cervix: Outer part of the cervical stroma focally involved by carcinoma. -- Vessels with medial calcific sclerosis. B. Rectosigmoid colon and left ovary and fallopian tube, low anterior colon resection and left salpingo-oophorectomy: -- Ovary: Involved by high-grade serous carcinoma with adhesions to the colonic wall. -- Fallopian tube: No fallopian tube identified grossly or microscopically. -- Colon: High-grade serous carcinoma invades through muscularis propria into the submucosa, see comment. -- Metastatic carcinoma in two out of four lymph nodes (2 mi/4), biggest deposit 0.8 mm, see comment. -- Isolated tumor cells in one out of four lymph nodes (ITCs/1). -- Soft tissue attached to the lymph nodes involved by high-grade serous carcinoma. SPECIMEN Procedure Total hysterectomy and bilateral salpingo-oophorectomy Low anterior colon resection Specimen Integrity Right Ovary Integrity Capsule intact Specimen Integrity Left Ovary Integrity Capsule intact Specimen Integrity Right Fallopian Tube Integrity Serosa intact Uterus Integrity Intact TUMOR Tumor Site Bilateral ovaries Tumor Size Greatest Dimension (Centimeters): 5.2 cm Histologic Type High grade serous carcinoma Histologic Grade High grade Ovarian Surface Involvement Present, right and left Fallopian Tube Surface Involvement Present, right Other Tissue / Organ Involvement Right fallopian tube Pelvic peritoneum Sigmoid colon Peritoneal / Ascitic Fluid Involvement Not submitted / unknown Chemotherapy Response Score (CRS) Cannot be determined: No omentum submitted REGIONAL LYMPH NODES Regional Lymph Node Status Tumor present in regional lymph node(s) Number of Nodes with Metastasis Greater than 10 mm 0 Number of Nodes with Metastasis 10 mm or Less (excluding isolated tumor cells) 2 Lanny Site(s) with Tumor Pericolonic lymph nodes Size of Largest Lanny Metastatic Deposit At least: 0.8 mm Location of Largest Lanny Metastatic Deposit Pericolonic lymph nodes Number of Lymph Nodes Examined 4 Lanny Site(s) Examined Pericolonic lymph nodes pTNM CLASSIFICATION (AJCC 8th Edition) Reporting of pT, pN, and (when applicable) pM categories is based on information available to the pathologist at the time the report is issued. As per the AJCC (Chapter 1, 8th Ed.) it is the managing physician s responsibility to establish the final pathologic stage based upon all pertinent information, including but potentially not limited to this pathology report. Modified Classification y pT Category pT3a pN Category pN1a FIGO STAGE FIGO Stage IIIA1(i) She required a platelet transfusion after cycle #5 for a platelet rafa count of 14,000. Presents for ongoing oncologic management. 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 No naps. Good appetite. No abdominal pain. No diarrhea--Ostomy output has been consistent in consistency. No symptoms of neuropathy. PAST MEDICAL HISTORY No date: Arthritis No date: Cataract No date: Colostomy in place (HCC) Comment: ovarian cancer, tumor leaning against bowel 07/25/1994: Essential hypertension, benign No date: Generalized anxiety disorder No date: Nausea and vomiting Comment: with chemotherapy and anesthesia No date: Ovarian cancer on left (HCC) PAST SURGICAL HISTORY 07/15/2023: COLOSTOMY Comment: transverse loop diverting 07/15/2023: L'SCOPE DX W/WO BRUSHINGS/WASHINGS Comment: with peritoneal biopsy 10/28/2023: LAPAROSCOPIC OMENTECTOMY 07/25/1981: LIG/TRNSXJ FLP TUBE ABDL/VAG APPR UNI/BI Comment: Tubal ligation 07/25/1962: TONSILLECTOMY & ADENOIDECTOMY <AGE 12 10/28/2023: TOTAL ABDOM HYSTERECTOMY 10/28/2023: TOTAL ABDOMINAL HYSTERECT W/WO RMVL TUBE OVARY ALLERGIES Allergen Reactions Erythromycin Diarrhea, GI Upset Abdominal cramping Penicillins Unknown Current Outpatient Medications Medication Sig pantoprazole DR (PROTONIX) 40 mg tablet take 1 tablet by mouth every day ondansetron (ZOFRAN) 8 mg tablet Take 1 tablet by mouth every 8 hours as needed for nausea/vomiting. acetaminophen (TYLENOL) 500 mg tablet Take 2 tablets by mouth every 6 hours. lisinopril-hydroCHLOROthiazide (ZESTORETIC) 20-12.5 mg per tablet Take 1 tablet by mouth once daily. (Patient taking differently: Take 1 tablet by mouth two times a day.) vitamin b complex capsule Take 1 capsule by mouth once daily. polyethylene glycol 3350 (MIRALAX) 17 gram/dose powder Take 34 g by mouth once daily. Dissolve dose in 4 - 8 ounces of liquid and take as directed. oxybutynin ER (DITROPAN XL) 10 mg 24 hr tablet Take 15 mg by mouth once daily. lidocaine-prilocaine (EMLA) 2.5-2.5 % cream Apply 60 minutes prior to accessing port calcium carbonate (CALCIUM 600 ORAL) Take 1 tablet by mouth once daily. olaparib (LYNPARZA) 150 mg tablet Take 2 tablets (300 mg) by mouth two times a day. iv contrast (will be provided with radiology test) CT Chest W -Inject, intravenously, once for 1 dose.No IV access, insert saline lock prior to the beginning of sedation, infusion, injection of imaging exam. Discontinue saline lock post exam. If Pt. has a central line or IVAD, may access for administration according to line specific nursing protocol. Once exam is complete flush line and de-access according to line specific nursing protocol in the CT contrast administration guidelines link. iv contrast (will be provided with radiology test) CT ABD/PEL -Inject, intravenously, once for 1 dose.No IV access, insert saline lock prior to the beginning of sedation, infusion, injection of imaging exam. Discontinue saline lock post exam. If Pt. has a central line or IVAD, may access for administration according to line specific nursing protocol. Once exam is complete flush line and de-access according to line specific nursing protocol in the CT contrast administration guidelines link. enteric contrast (will be provided with radiology test) For CT ABD/PEL W IVCON Routine order Administer, As Directed One Time Only, via Oral, Rectal, both Oral and Rectal, Enteric Tube, Stoma or Indwelling Catheter, Enteric Contrast as designated per enteric contrast guidelines No current facility-administered medications for this visit. Social History Tobacco Use Smoking status: Former Current packs/day: 0.00 Types: Cigarettes Start date: 07/25/1972 Quit date: 07/25/1974 Years since quittin.6 Smokeless tobacco: Never Tobacco comments: Pt smoked an occ cigarette for 2 approx years Vaping Use Vaping status: Never Used Substance Use Topics Alcohol use: Yes Alcohol/week: 2.0 standard drinks of alcohol Types: 2 Glasses of Wine (5oz) per week Drug use: No Family history: Father-hypertension Maternal aunt--Breast cancer in her 60s. PGM--Breast cancer in her 80s. Mother-- of metastatic cancer at age 80. Sister--Larynx cancer. ROS: Constitutional: No fever. No drenching night sweats. Neuro: No recent PERAZA, vertigo, dizziness or imbalance. HEENT: No recent change in voice, vision or hearing. Resp: No cough, wheeze of hemoptysis. No shortness of breath at rest. CVS: No exertional chest pain, PND or orthopnea. No extremity swelling/edema. No symptoms of claudication. No painful or tender varicose veins. GI: See above. : No dysuria or gross hematuria. No symptoms of bladder outlet obstruction. Endo: No hot flashes. No polyuria or polydipsia. No heat or cold intolerance. Musculoskeletal: Diagnosed with RA 2014. Hip pain. Controlled with Plaquenil. Derm: No current rash. No history of jaundice. No diffuse pruritis. Heme: No unusual bleeding and unexplained bruising. Psych: Normal mood. PHYSICAL EXAM: Vitals: Blood pressure 172/84, pulse 65, temperature 36.3 C (97.4 F), temperature source Temporal, weight 53.1 kg (117 lb), SpO2 98%. Well-appearing and in no acute distress. EYES: Sclerae are anicteric bilaterally. LYMPHATIC: There is no palpable cervical, supraclavicular, axillary adenopathy. RESPIRATORY: Inspiratory breath sounds are of normal intensity in all dominguez. No rales, wheezes or rhonchi. Expiratory phase is normal. CARDIOVASCULAR: Rhythm is regular. ABDOMEN: The abdomen is nondistended. Ostomy appears healthy. SKIN: No jaundice. LABS: Latest Ref [facility] 03/19/2024 WBC 3.70 - 11.00 k/uL 4.17 RBC 3.90 - 5.20 m/uL 2.61 (L) Hemoglobin 11.5 - 15.5 g/dL 9.1 (L) Hematocrit 36.0 - 46.0 % 27.1 (L) MCV 80.0 - 100.0 fL 103.8 (H) MCH 26.0 - 34.0 pg 34.9 (H) MCHC 30.5 - 36.0 g/dL 33.6 RDW-CV 11.5 - 15.0 % 17.2 (H) Platelet Count 150 - 400 k/uL 132 (L) MPV 9.0 - 12.7 fL 9.8 Neut% % 56.9 Abs Neut (ANC) 1.45 - 7.50 k/uL 2.37 Lymph% % 30.7 Abs Lymph 1.00 - 4.00 k/uL 1.28 [place]% % 9.8 Abs [place] <0.87 k/uL 0.41 Eosin% % 1.7 Abs Eosin <0.46 k/uL 0.07 Baso% % 0.7 Abs Baso <0.11 k/uL 0.03 Immature Gran % % 0.2 IMMATURE GRANS (ABS) <0.10 k/uL <0.03 NRBC /100 WBC 0.0 Absolute nRBC <0.01 k/uL <0.01 DTYPE Auto Protein, Total 6.3 - 8.0 g/dL 6.4 Albumin 3.9 - 4.9 g/dL 4.3 Calcium 8.5 - 10.2 mg/dL 9.4 Bilirubin, Total 0.2 - 1.3 mg/dL 0.8 Alkaline Phosphatase 34 - 123 U/L 91 AST 13 - 35 U/L 29 ALT 7 - 38 U/L 23 Glucose 74 - 99 mg/dL 122 (H) BUN 7 - 21 mg/dL 28 (H) Creatinine 0.58 - 0.96 mg/dL 1.17 (H) Sodium 136 - 144 mmol/L 140 Potassium 3.7 - 5.1 mmol/L 3.9 Chloride 98 - 107 mmol/L 103 CO2 22 - 30 mmol/L 24 Anion Gap 8 - 15 mmol/L 13 eGFR >=60 mL/min/1.73m 49 (L) ASSESSMENT/PLAN: (C56.2) Ovarian cancer on left (HCC) (primary encounter diagnosis) Assessment: -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 -Presented with partial large bowel obstruction status post transverse loop diverting colostomy. Not able to undergo upfront debulking surgery. -Tolerated carboplatin and paclitaxel very well overall. 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 -Discussed rationale for PARP maintenance. -White coat HTN. -Reviewed CBC. Persistent macrocytic anemia. Platelets recovering. Plan: -Check B12, serum folate and TSH. If all normal then check copper. -According to specialty pharmacy notes, co-pay for Lynparza should be $35 a month. -Has appointment with Dr. Miles for ostomy reversal. -Her children plan to talk with their PCP and carrot buncher about genetic counseling. Portions of this documentation were copied and pasted from previous office visit notes in order to provide a cohesive continuity of the history. The note has been reviewed and edited and updated as necessary. I spent a total of 15 minutes on the date of the service which included preparing to see the patient, [id number] patient care, completing clinical documentation, obtaining and/or reviewing separately obtained history, performing a medically appropriate examination, counseling and educating the patient/family/caregiver, ordering medications, tests, or procedures, communicating with other HCPs (not separately reported), and communicating results to the patient/family/caregiver. Hiram Mccoy DO documented in this encounter [facility] 03-16-2024 History of Present illness Narrative [facility] received prescription(s) for Lynparza from Dr. Mccoy's office. Benefits investigation was conducted, indicating that a prior authorization is required by patient's insurance plan with [employer]. Encounter will be updated once prior authorization has been submitted by [facility]. documented in this encounter [facility] 02-28-2024 Telephone encounter Note Pt notified. Roselyn Pittman LPN [facility] 02-28-2024 Miscellaneous Notes Pt notified. Roselyn Pittman LPN Counts okay for root canal. Patient had CBC drawn today, would like to know the results and if Dr Mccoy is ok with her having the root canal, so she may get it scheduled. Thanks documented in this encounter [facility] 02-28-2024 Telephone encounter Note Counts okay for root canal. [facility] 02-28-2024 Telephone encounter Note Patient had CBC drawn today, would like to know the results and if Dr Mccoy is ok with her having the root canal, so she may get it scheduled. Thanks [facility] 02-28-2024 Telephone encounter Note Scheduled [facility] Work Phone: 02-28-2024 Miscellaneous Notes Scheduled Spoke with pt. Informed CBC tomorrow. PSS please put on port schedule today 02/27 @ 10 am. Pt. Aware. Kesly Storm LPN Check CBC tomorrow to assure platelet count recovery. Hiram Mccoy DO Patient called back stating she would be needing a root canal. Pt. Wondering if she can have a dental check up? For the past week she has had a tooth ache on and off. Informed she can have it checked, if further tx is needed she should contact our office and let us know. Pt. Voiced understanding. Kelsy Storm LPN Patient called asking if okay for dental appointment now that she has finished chemo. documented in this encounter [facility] 02-28-2024 Telephone encounter Note Spoke with pt. Informed CBC tomorrow. PSS please put on port schedule today 02/27 @ 10 am. Pt. Aware. Kelsy Storm LPN [facility] 02-27-2024 Telephone encounter Note Check CBC tomorrow to assure platelet count recovery. Hiram Mccoy DO [facility] 02-27-2024 Telephone encounter Note Patient called back stating she would be needing a root canal. [facility] 02-27-2024 Telephone encounter Note Pt. Wondering if she can have a dental check up? For the past week she has had a tooth ache on and off. Informed she can have it checked, if further tx is needed she should contact our office and let us know. Pt. Voiced understanding. Kelsy Storm LPN [facility] 02-27-2024 Telephone encounter Note Patient called asking if okay for dental appointment now that she has finished chemo. [facility] 02-23-2024 Telephone encounter Note Requesting 90 day Rx. Victorina Rebolledo LPN [facility] 02-23-2024 Miscellaneous Notes Requesting 90 day Rx. 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 Patient reports she is feeling well and denies pain. Reports good ostomy output. Some fatigue. Good appetite. No neuropathy. ROS: 14 point ROS negative unless indicated in above HPI. Oncologic history: 07/15/23: Diagnostic laparoscopy - extensive infiltration into Ball's pouch, freddy hepatis, dense scarring between liver and diaphragm due to disease infiltration. Debulking aborted. Transverse loop colostomy created. 08/09/23: C1D1 carboplatin/paclitaxel 08/30/23: C2D1 09/20/23: C3D1 10/28/23: Interval debulking surgery. Ex-lap, enterolysis, modified posterior exenterative procedure including radical hysterectomy, BSO, en bloc resection of rectosigmoid colon, bilateral temporary stents (urology). No residual disease. 01/23/24: C6D1 carboplatin/paclitaxel. 02/01/24: Completion CT MELISSA. Oncology History Ovarian cancer on left (HCC) 07/27/2023 Initial Diagnosis Ovarian cancer on left (HCC) 08/09/2023 - Chemotherapy Treatment goal 2. Oncology Non-Curative Plan Name AMB PACLITAXEL 175 D1 CARBOPLATIN 6 D1 - Q21D Status Active Start Date 08/09/2023 End Date 01/23/2024 Provider Hiram Mccoy, DO Chemotherapy CARBOplatin 400 mg in NaCl 0.9% 315 mL (PARAPLATIN), 400 mg (100 % of original dose 415.2 mg), INTRAVENOUS, ONCE, 6 of 6 cycles Dose modification: 415.2 mg (original dose 415.2 mg, Cycle 1), 420 mg (original dose 420 mg, Cycle 2), 405 mg (original dose 405 mg, Cycle 4), 405 mg (original dose 405 mg, Cycle 3), 406.2 mg (original dose 406.2 mg, Cycle 5), 338.5 mg (original dose 338.5 mg, Cycle 6) Administration: 400 mg (08/09/2023), 400 mg (08/30/2023), 400 mg (12/06/2023), 400 mg (09/20/2023), 400 mg (12/28/2023), 338.5 mg (01/23/2024) PACLitaxel 270 mg in NaCl 0.9% 585 mL (TAXOL), 175 mg/m2 = 270 mg, INTRAVENOUS, ONCE, 6 of 6 cycles Dose modification: 135 mg/m2 (original dose 175 mg/m2, Cycle 6, Reason: 3.) Toxicity, Comment: Severe thrombocytopenia) Administration: 270 mg (08/09/2023), 270 mg (08/30/2023), 269.5 mg (12/06/2023), 269.5 mg (09/20/2023), 269.5 mg (12/28/2023), 200 mg (01/23/2024) Medical history: PAST MEDICAL HISTORY Diagnosis Date Arthritis Cataract Colostomy in place (HCC) ovarian cancer, tumor leaning against bowel Essential hypertension, benign 07/25/1994 Generalized anxiety disorder Nausea and vomiting with chemotherapy and anesthesia Ovarian cancer on left (HCC) Surgical history: PAST SURGICAL HISTORY Procedure Laterality Date COLOSTOMY 07/15/2023 transverse loop diverting L'SCOPE DX W/WO BRUSHINGS/WASHINGS 07/15/2023 with peritoneal biopsy LAPAROSCOPIC OMENTECTOMY 10/28/2023 LIG/TRNSXJ FLP TUBE ABDL/VAG APPR UNI/BI 07/25/1981 Tubal ligation TONSILLECTOMY & ADENOIDECTOMY <AGE 12 07/25/1962 TOTAL ABDOM HYSTERECTOMY 10/28/2023 TOTAL ABDOMINAL HYSTERECT W/WO RMVL TUBE OVARY 10/28/2023 Family history: Family History Problem Relation Age of Onset Osteoporosis Mother smoker other (osteoarthritis) Mother Cancer Mother Coronary Artery Disease Father MA age 40's, age 60's; also smoked and alcoholic Mental illness Sister Renal Disease Sister Cancer Sister other (rheumatoid arthritis) Sister Coronary Artery Disease Brother MA age 49, smoker, recovering alcoholic Breast Cancer Paternal Grandmother late 70's Diabetes Paternal Grandfather Heart Paternal Grandfather Breast Cancer Maternal Aunt age 65 Ovarian cancer Maternal Aunt Social history: Social History Tobacco Use Smoking status: Former Years: 2 Types: Cigarettes Quit date: 07/25/1974 Years since quittin.5 Smokeless tobacco: Never Tobacco comments: Pt smoked an occ cigarette for 2 approx years Vaping Use Vaping Use: Never used Substance Use Topics Alcohol use: Yes Alcohol/week: 2.0 standard drinks of alcohol Types: 2 Glasses of Wine (5oz) per week Drug use: No Medications: Current Outpatient Medications Medication Sig Dispense Refill pantoprazole DR (PROTONIX) 40 mg tablet Take 1 tablet by mouth once daily. 30 tablet 5 ondansetron (ZOFRAN) 8 mg tablet Take 1 tablet by mouth every 8 hours as needed for nausea/vomiting. 60 tablet 2 iv contrast (will be provided with radiology test) CT Chest W -Inject, intravenously, once for 1 dose.No IV access, insert saline lock prior to the beginning of sedation, infusion, injection of imaging exam. Discontinue saline lock post exam. If Pt. has a central line or IVAD, may access for administration according to line specific nursing protocol. Once exam is complete flush line and de-access according to line specific nursing protocol in the CT contrast administration guidelines link. 1 Each 0 iv contrast (will be provided with radiology test) CT ABD/PEL -Inject, intravenously, once for 1 dose.No IV access, insert saline lock prior to the beginning of sedation, infusion, injection of imaging exam. Discontinue saline lock post exam. If Pt. has a central line or IVAD, may access for administration according to line specific nursing protocol. Once exam is complete flush line and de-access according to line specific nursing protocol in the CT contrast administration guidelines link. 1 Each 0 enteric contrast (will be provided with radiology test) For CT ABD/PEL W IVCON Routine order Administer, As Directed One Time Only, via Oral, Rectal, both Oral and Rectal, Enteric Tube, Stoma or Indwelling Catheter, Enteric Contrast as designated per enteric contrast guidelines 1 Each 0 acetaminophen (TYLENOL) 500 mg tablet Take 2 tablets by mouth every 6 hours. 100 tablet 0 lisinopril-hydroCHLOROthiazide (ZESTORETIC) 20-12.5 mg per tablet Take 1 tablet by mouth once daily. (Patient taking differently: Take 1 tablet by mouth two times a day.) 30 tablet 2 vitamin b complex capsule Take 1 capsule by mouth once daily. polyethylene glycol 3350 (MIRALAX) 17 gram/dose powder Take 34 g by mouth once daily. Dissolve dose in 4 - 8 ounces of liquid and take as directed. oxybutynin ER (DITROPAN XL) 10 mg 24 hr tablet Take 15 mg by mouth once daily. lidocaine-prilocaine (EMLA) 2.5-2.5 % cream Apply 60 minutes prior to accessing port 15 g 3 calcium carbonate (CALCIUM 600 ORAL) Take 1 tablet by mouth once daily. No current facility-administered medications for this visit. PE: EGOG PS 1 BP 190/106 (BP Site: Left Arm, BP Position: Sitting, BP Cuff Size: Regular Adult) Pulse 93 Temp 36.8 C (98.3 F) (Oral) Wt 53.1 kg (117 lb) SpO2 99% BMI 21.40 kg/m Gen: well-appearing, NAD Remainder of exam deferred Labs/Imaging: CT C/A/P (02/01/24): Interval postsurgical changes including loop colostomy, staple descending colon and rectal stump. Hysterectomy and bilateral salpingo-oophorectomy. No peritoneal fluid or mass. No lymphadenopathy or parenchymal organ abnormalities. FINAL DIAGNOSIS A. Uterus, cervix with right fallopian tube and ovary, total abdominal hysterectomy with right salpingo-oophorectomy: -- Ovary: Involved by high-grade serous carcinoma, status post neoadjuvant chemotherapy, see comment and case summary. -- Fallopian tube: Involved by high-grade serous carcinoma, see comment. -- Endometrium: Atrophic endometrium. -- Myometrium: No significant histopathologic abnormalities. -- Serosa: Involved by high-grade serous carcinoma. -- Cervix: Outer part of the cervical stroma focally involved by carcinoma. -- Vessels with medial calcific sclerosis. B. Rectosigmoid colon and left ovary and fallopian tube, low anterior colon resection and left salpingo-oophorectomy: -- Ovary: Involved by high-grade serous carcinoma with adhesions to the colonic wall. -- Fallopian tube: No fallopian tube identified grossly or microscopically. -- Colon: High-grade serous carcinoma invades through muscularis propria into the submucosa, see comment. -- Metastatic carcinoma in two out of four lymph nodes (2 mi/4), biggest deposit 0.8 mm, see comment. -- Isolated tumor cells in one out of four lymph nodes (ITCs/1). -- Soft tissue attached to the lymph nodes involved by high-grade serous carcinoma. 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 Ovarian/fallopian tube cancer: - Completion CT negative/MELISSA. Ca-125 reflects this. - Discussed olaparib maintenance. 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 Will send CARIS to confirm. - Would like to proceed with olaparib. Will alert Dr. Mccoy. Goal to start by 8 weeks post treatment. - RTC in 3 months BRIP 1 mutation: - Daughter getting tested. Urged her to discuss with son again. Guerrero Vilchis MD, MPH Gynecologic Oncologist Medical Decision Making: Problems: Low: Stable chronic illness Moderate: 1+ chronic illnesses with change Data: Unique source(s) for external note(s) reviewed: 3+ Unique test result(s) reviewed: 3+ Unique test(s) ordered: 1 Independent interpretation of test from other physician/QHCP Risk: Low: Low risk from testing/treatment Medical Decision Making Level: 4 - Moderate documented in this encounter [facility] 02-09-2024 Telephone encounter Note Spoke to florecita to let her know we had to change her appointment to 02/12 at 10:30 am. Malgorzata to provider being in surgery. Patient understood. Milagro Sena MA [facility] 02-09-2024 Miscellaneous Notes Spoke to florecita to let her know we had to change her appointment to 02/12 at 10:30 am. Malgorzata to provider being in surgery. Patient understood. Milagro Sena MA documented in this encounter [facility] 07-15-2024 History of Present illness Narrative Oncologic problem(s): 1) Serous carcinoma of the left ovary. HPI: The patient is a 73-year-old female with a past medical history significant for hypertension and rheumatoid arthritis. Presented to the ED at [facility] on 07/10/2023 with complaints of nausea and vomiting that started approximately 24 hours before presentation. This was accompanied with diarrhea. She been having intermittent abdominal pain for a couple months. Approximate 10 pound weight loss. Evidently underwent colonoscopy in March that demonstrated a constricted colon. CT A/P 07/10/2023: LOWER THORAX: Normal. Lung bases are clear. No cardiomegaly. No pericardial effusion. ABDOMEN: LIVER: Stable 12 mm lesion within hepatic segment 7 and 14 mm lesion within hepatic segment 3 suggestive of hemangiomata. PANCREAS: Normal. No focal cystic or solid mass. SPLEEN: Normal. Normal size without focal cystic or solid mass. ADRENALS: Normal. No nodules. KIDNEYS AND URETERS: Normal. Normal renal size and position. No hydronephrosis. STOMACH AND BOWEL: Multiple dilated thick-walled small bowel loops noted within the lower abdomen. There is fluid distention of the ascending and transverse colon. Prominent wall thickening of the sigmoid colon. PELVIS: APPENDIX: Appendix is visualized and normal in appearance. BLADDER: Normal. REPRODUCTIVE: 4.8 cm left adnexal cystic mass has significantly increased in size from prior study raising possibility of underlying cystic ovarian neoplasm. ABDOMEN and PELVIS: INTRAPERITONEAL SPACE: Interval development of moderate volume ascites. No free air. BONES/JOINTS: No suspicious lytic or blastic abnormality. SOFT TISSUES: Normal. No discrete abdominal or pelvic wall hernia. VASCULATURE: Normal. Abdominal aorta is non-dilated. LYMPH NODES: Interval enlargement of the retroperitoneal lymph nodes adjacent to the aorta and inferior vena cava raising possibility of metastatic disease. IMPRESSION: 1. Interval enlargement of complex cystic left adnexal mass which may represent ovarian neoplasm. 2. Interval development of moderate volume ascites. 3. Multiple thick-walled loops of large and small bowel consistent with inflammatory bowel disease. 4. Enlarging retroperitoneal lymph nodes which may represent metastatic disease. She was transferred to [facility] for gynecologic oncology surgery. Underwent diagnostic laparoscopy with peritoneal biopsy along with transverse loop diverting colostomy on 07/15/2023. Patient was found to have carcinomatosis with diffuse disease on right and left diaphragm. There were dense adhesions between liver immediately lateral to the falciform and diaphragm. Tumor infiltration of the falciform and freddy hepatis was observed. Pelvis was not visualized due to multiple loops of small bowel that were adherent to the pelvis. There was a plaque of tumor overlying the bladder peritoneum. Unable to visualize ovarian masses due to small bowel adherent to the sigmoid colon. Diffuse thickening of the paracolic gutter peritoneum was observed. There was thickened omentum without obvious implants including supracolic omentum with decreased mobility of transverse colon. 1000 cc of murky green ascites was aspirated. Biopsies were obtained of the peritoneal implants. 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 See comment. Identical morphologic features are noted within the present, peritoneal specimen that are found within the recent abdominal fluid cytology specimen, [id number]. Confirmatory immunohistochemistry was performed on the cytology specimen supporting a diagnosis of serous carcinoma. Per initial consultation here: Appetite okay--small meals. Taking Zofran regularly. Small amount reflux--TUMS prn. Ostomy working well. Pain improved. Previous therapy: 1) Neoadjuvant chemotherapy with paclitaxel and carboplatin x3 cycles. 2) Exploratory laparotomy, lysis of adhesions, total abdominal hysterectomy, bilateral salpingo-oophorectomy with en block rectosigmoid resection, cystoscopy and temporary bilateral ureteral stents (urology) on 10/28/23. Pathology: A. Uterus, cervix with right fallopian tube and ovary, total abdominal hysterectomy with right salpingo-oophorectomy: -- Ovary: Involved by high-grade serous carcinoma, status post neoadjuvant chemotherapy, see comment and case summary. -- Fallopian tube: Involved by high-grade serous carcinoma, see comment. -- Endometrium: Atrophic endometrium. -- Myometrium: No significant histopathologic abnormalities. -- Serosa: Involved by high-grade serous carcinoma. -- Cervix: Outer part of the cervical stroma focally involved by carcinoma. -- Vessels with medial calcific sclerosis. B. Rectosigmoid colon and left ovary and fallopian tube, low anterior colon resection and left salpingo-oophorectomy: -- Ovary: Involved by high-grade serous carcinoma with adhesions to the colonic wall. -- Fallopian tube: No fallopian tube identified grossly or microscopically. -- Colon: High-grade serous carcinoma invades through muscularis propria into the submucosa, see comment. -- Metastatic carcinoma in two out of four lymph nodes (2 mi/4), biggest deposit 0.8 mm, see comment. -- Isolated tumor cells in one out of four lymph nodes (ITCs/1). -- Soft tissue attached to the lymph nodes involved by high-grade serous carcinoma. SPECIMEN Procedure Total hysterectomy and bilateral salpingo-oophorectomy Low anterior colon resection Specimen Integrity Right Ovary Integrity Capsule intact Specimen Integrity Left Ovary Integrity Capsule intact Specimen Integrity Right Fallopian Tube Integrity Serosa intact Uterus Integrity Intact TUMOR Tumor Site Bilateral ovaries Tumor Size Greatest Dimension (Centimeters): 5.2 cm Histologic Type High grade serous carcinoma Histologic Grade High grade Ovarian Surface Involvement Present, right and left Fallopian Tube Surface Involvement Present, right Other Tissue / Organ Involvement Right fallopian tube Pelvic peritoneum Sigmoid colon Peritoneal / Ascitic Fluid Involvement Not submitted / unknown Chemotherapy Response Score (CRS) Cannot be determined: No omentum submitted REGIONAL LYMPH NODES Regional Lymph Node Status Tumor present in regional lymph node(s) Number of Nodes with Metastasis Greater than 10 mm 0 Number of Nodes with Metastasis 10 mm or Less (excluding isolated tumor cells) 2 Lanny Site(s) with Tumor Pericolonic lymph nodes Size of Largest Lanny Metastatic Deposit At least: 0.8 mm Location of Largest Lanny Metastatic Deposit Pericolonic lymph nodes Number of Lymph Nodes Examined 4 Lanny Site(s) Examined Pericolonic lymph nodes pTNM CLASSIFICATION (AJCC 8th Edition) Reporting of pT, pN, and (when applicable) pM categories is based on information available to the pathologist at the time the report is issued. As per the AJCC (Chapter 1, 8th Ed.) it is the managing physician s responsibility to establish the final pathologic stage based upon all pertinent information, including but potentially not limited to this pathology report. Modified Classification y pT Category pT3a pN Category pN1a FIGO STAGE FIGO Stage IIIA1(i) She required a platelet transfusion after cycle #5 for a platelet rafa count of 14,000. Presents for ongoing oncologic management. Interim history: I feel great. Tires easily. Takes breaks. No naps. Good appetite. No abdominal pain. No diarrhea. Occasional cough if outside in the yard. No sputum. No symptoms of neuropathy. PAST MEDICAL HISTORY Diagnosis Date Arthritis Cataract Colostomy in place (HCC) ovarian cancer, tumor leaning against bowel Essential hypertension, benign 07/25/1994 Generalized anxiety disorder Nausea and vomiting with chemotherapy and anesthesia Ovarian cancer on left (HCC) PAST SURGICAL HISTORY Procedure Laterality Date COLOSTOMY 07/15/2023 transverse loop diverting L'SCOPE DX W/WO BRUSHINGS/WASHINGS 07/15/2023 with peritoneal biopsy LAPAROSCOPIC OMENTECTOMY 10/28/2023 LIG/TRNSXJ FLP TUBE ABDL/VAG APPR UNI/BI 07/25/1981 Tubal ligation TONSILLECTOMY & ADENOIDECTOMY <AGE 12 07/25/1962 TOTAL ABDOM HYSTERECTOMY 10/28/2023 TOTAL ABDOMINAL HYSTERECT W/WO RMVL TUBE OVARY 10/28/2023 ALLERGIES Allergen Reactions Erythromycin Diarrhea, GI Upset Abdominal cramping Penicillins Unknown Current Outpatient Medications Medication Sig ondansetron (ZOFRAN) 8 mg tablet Take 1 tablet by mouth every 8 hours as needed for nausea/vomiting. acetaminophen (TYLENOL) 500 mg tablet Take 2 tablets by mouth every 6 hours. lisinopril-hydroCHLOROthiazide (ZESTORETIC) 20-12.5 mg per tablet Take 1 tablet by mouth once daily. (Patient taking differently: Take 1 tablet by mouth two times a day.) vitamin b complex capsule Take 1 capsule by mouth once daily. polyethylene glycol 3350 (MIRALAX) 17 gram/dose powder Take 34 g by mouth once daily. Dissolve dose in 4 - 8 ounces of liquid and take as directed. oxybutynin ER (DITROPAN XL) 10 mg 24 hr tablet Take 15 mg by mouth once daily. pantoprazole DR (PROTONIX) 40 mg tablet Take 1 tablet by mouth once daily. lidocaine-prilocaine (EMLA) 2.5-2.5 % cream Apply 60 minutes prior to accessing port calcium carbonate (CALCIUM 600 ORAL) Take 1 tablet by mouth once daily. iv contrast (will be provided with radiology test) CT Chest W -Inject, intravenously, once for 1 dose.No IV access, insert saline lock prior to the beginning of sedation, infusion, injection of imaging exam. Discontinue saline lock post exam. If Pt. has a central line or IVAD, may access for administration according to line specific nursing protocol. Once exam is complete flush line and de-access according to line specific nursing protocol in the CT contrast administration guidelines link. iv contrast (will be provided with radiology test) CT ABD/PEL -Inject, intravenously, once for 1 dose.No IV access, insert saline lock prior to the beginning of sedation, infusion, injection of imaging exam. Discontinue saline lock post exam. If Pt. has a central line or IVAD, may access for administration according to line specific nursing protocol. Once exam is complete flush line and de-access according to line specific nursing protocol in the CT contrast administration guidelines link. enteric contrast (will be provided with radiology test) For CT ABD/PEL W IVCON Routine order Administer, As Directed One Time Only, via Oral, Rectal, both Oral and Rectal, Enteric Tube, Stoma or Indwelling Catheter, Enteric Contrast as designated per enteric contrast guidelines No current facility-administered medications for this visit. Social History Tobacco Use Smoking status: Former Years: 2 Types: Cigarettes Quit date: 07/25/1974 Years since quittin.5 Smokeless tobacco: Never Tobacco comments: Pt smoked an occ cigarette for 2 approx years Vaping Use Vaping Use: Never used Substance Use Topics Alcohol use: Yes Alcohol/week: 2.0 standard drinks of alcohol Types: 2 Glasses of Wine (5oz) per week Drug use: No Family history: Father-hypertension Maternal aunt--Breast cancer in her 60s. PGM--Breast cancer in her 80s. Mother-- of metastatic cancer at age 80. Sister--Larynx cancer. ROS: Constitutional: No fever. No drenching night sweats. Neuro: No recent PERAZA, vertigo, dizziness or imbalance. HEENT: No recent change in voice, vision or hearing. Resp: No cough, wheeze of hemoptysis. No shortness of breath at rest. CVS: No exertional chest pain, PND or orthopnea. No extremity swelling/edema. No symptoms of claudication. No painful or tender varicose veins. GI: See above. : No dysuria or gross hematuria. No symptoms of bladder outlet obstruction. Endo: No hot flashes. No polyuria or polydipsia. No heat or cold intolerance. Musculoskeletal: Diagnosed with RA 2015. Hip pain. Controlled with Plaquenil. Derm: No current rash. No history of jaundice. No diffuse pruritis. Heme: No unusual bleeding and unexplained bruising. Psych: Normal mood. PHYSICAL EXAM: Vitals: Blood pressure 199/72, pulse 63, temperature 36.2 C (97.2 F), temperature source Temporal, weight 54 kg (119 lb), SpO2 100%. Well-appearing and in no acute distress. EYES: Sclerae are anicteric bilaterally. LYMPHATIC: There is no palpable cervical, supraclavicular, axillary adenopathy. RESPIRATORY: Inspiratory breath sounds are of normal intensity in all dominguez. No rales, wheezes or rhonchi. Expiratory phase is normal. CARDIOVASCULAR: Rhythm is regular. ABDOMEN: The abdomen is nondistended. Ostomy appears healthy. SKIN: No jaundice. LABS: Latest Ref Rn 02/06/2024 WBC 3.70 - 11.00 k/uL 2.47 (L) RBC 3.90 - 5.20 m/uL 2.80 (L) Hemoglobin 11.5 - 15.5 g/dL 8.9 (L) Hematocrit 36.0 - 46.0 % 26.6 (L) MCV 80.0 - 100.0 fL 95.0 MCH 26.0 - 34.0 pg 31.8 MCHC 30.5 - 36.0 g/dL 33.5 RDW-CV 11.5 - 15.0 % 15.3 (H) Platelet Count 150 - 400 k/uL 35 (L) MPV 9.0 - 12.7 fL 11.6 Neut% % 26.4 Abs Neut (ANC) 1.45 - 7.50 k/uL 0.65 (L) Lymph% % 52.6 Abs Lymph 1.00 - 4.00 k/uL 1.30 [place]% % 19.4 Abs [place] <0.87 k/uL 0.48 Eosin% % 0.8 Abs Eosin <0.46 k/uL <0.03 Baso% % 0.4 Abs Baso <0.11 k/uL <0.03 Immature Gran % % 0.4 IMMATURE GRANS (ABS) <0.10 k/uL <0.03 NRBC /100 WBC 0.0 Absolute nRBC <0.01 k/uL <0.01 DTYPE Auto Protein, Total 6.3 - 8.0 g/dL 6.7 Albumin 3.9 - 4.9 g/dL 4.3 Calcium 8.5 - 10.2 mg/dL 9.4 Bilirubin, Total 0.2 - 1.3 mg/dL 0.5 Alkaline Phosphatase 34 - 123 U/L 150 (H) AST 13 - 35 U/L 31 ALT 7 - 38 U/L 26 Glucose 74 - 99 mg/dL 113 (H) BUN 7 - 21 mg/dL 28 (H) Creatinine 0.58 - 0.96 mg/dL 0.90 Sodium 136 - 144 mmol/L 139 Potassium 3.7 - 5.1 mmol/L 3.8 Chloride 98 - 107 mmol/L 103 CO2 22 - 30 mmol/L 28 Anion Gap 8 - 15 mmol/L 8 eGFR >=60 mL/min/1.73m 68 ASSESSMENT/PLAN: (C56.2) Ovarian cancer on left (HCC) (primary encounter diagnosis) Assessment: -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 -Presented with partial large bowel obstruction status post transverse loop diverting colostomy. Not able to undergo upfront debulking surgery. -Tolerated carboplatin and paclitaxel very well overall. -Multi-Cancer panel through [facility] was positive for a pathogenic variant in BRIP1 ([id number]). -White coat HTN. -Reviewed CBC. -CTs MELISSA. Plan: -Opinion from Dr. Vilchis on maintenance therapy. -Referral to Dr. Miles for ostomy takedown. -Continue B complex vitamin. -Her children plan to talk with their PCP and carrot buncher about genetic counseling. Portions of this documentation were copied and pasted from previous office visit notes in order to provide a cohesive continuity of the history. The note has been reviewed and edited and updated as necessary. I spent a total of 15 minutes on the date of the service which included preparing to see the patient, [id number] patient care, completing clinical documentation, obtaining and/or reviewing separately obtained history, performing a medically appropriate examination, counseling and educating the patient/family/caregiver, ordering medications, tests, or procedures, communicating with other HCPs (not separately reported), and communicating results to the patient/family/caregiver. Hiram Mccoy DO documented in this encounter [facility] 02-01-2024 History of Present illness Narrative Radiology Service Progress Note PATIENT NAME: Gasper Reed DATE OF SERVICE: February 01, 2024 TIME: 4:21 PM PATIENT IDENTITY VERIFICATION COMPLETED USING TWO (2) IDENTIFIERS: Name and Date of confirmed by patient verbally. FALL SCREENING: Has the patient had 2 falls in the last year or 1 fall with injury or currently using an Ambulatory Assistive Device (Walker, Cane, Wheelchair, Crutches, etc.)? No PATIENT GENDER DATA: Female. status: : No status: NO. PATIENT RELEVANT IMPLANT DATA REVIEWED: Yes PATIENT PRESENTS WITH AN IMPLANTABLE OR ATTACHED HEAD RIGGER: No RADIOLOGY DEPARTMENT: CT; Exam(s) Completed: Chest Abdomen Pelvis PERIPHERAL IV DATA: power port accessed by hemoc SIGNED BY: RT Lexx(R) February 01, 2024 4:21 PM documented in this encounter [facility] 01-23-2024 Telephone encounter Note Patient scheduled for 1 unit PRBC 01/24/2024 @ 30, [facility]. Orders faxed. Patient and lab aware. Victorina Rebolledo LPN [facility] 01-23-2024 Miscellaneous Notes Patient scheduled for 1 unit PRBC 01/24/2024 @ 30, [facility]. Orders faxed. Patient and lab aware. Victorina Rebolledo LPN documented in this encounter [facility] 01-19-2024 History of Present illness Narrative Patient is here for IVAD port flush/blood draw per [facility] [place] protocol. IVAD is located in right upper chest. Site cleansed with Chloraprep IVAD accessed with a #20 gauge 3/4 non-coring Gripper needle Flush with 5cc's Normal Saline. Blood Return: Good. 10 cc's blood aspirated and discarded. Blood drawn for CBC. Flushed with: 20 ml Normal Saline. Non-coring needle removed. Paper tape applied to puncture site. Site negative for redness, edema or tenderness. Patient tolerated procedure well. documented in this encounter [facility] 01-16-2024 History of Present illness Narrative Oncologic problem(s): 1) Serous carcinoma of the left ovary. HPI: The patient is a 73-year-old female with a past medical history significant for hypertension and rheumatoid arthritis. Presented to the ED at [facility] on 07/10/2023 with complaints of nausea and vomiting that started approximately 24 hours before presentation. This was accompanied with diarrhea. She been having intermittent abdominal pain for a couple months. Approximate 10 pound weight loss. Evidently underwent colonoscopy in March that demonstrated a constricted colon. CT A/P 07/10/2023: LOWER THORAX: Normal. Lung bases are clear. No cardiomegaly. No pericardial effusion. ABDOMEN: LIVER: Stable 12 mm lesion within hepatic segment 7 and 14 mm lesion within hepatic segment 3 suggestive of hemangiomata. PANCREAS: Normal. No focal cystic or solid mass. SPLEEN: Normal. Normal size without focal cystic or solid mass. ADRENALS: Normal. No nodules. KIDNEYS AND URETERS: Normal. Normal renal size and position. No hydronephrosis. STOMACH AND BOWEL: Multiple dilated thick-walled small bowel loops noted within the lower abdomen. There is fluid distention of the ascending and transverse colon. Prominent wall thickening of the sigmoid colon. PELVIS: APPENDIX: Appendix is visualized and normal in appearance. BLADDER: Normal. REPRODUCTIVE: 4.8 cm left adnexal cystic mass has significantly increased in size from prior study raising possibility of underlying cystic ovarian neoplasm. ABDOMEN and PELVIS: INTRAPERITONEAL SPACE: Interval development of moderate volume ascites. No free air. BONES/JOINTS: No suspicious lytic or blastic abnormality. SOFT TISSUES: Normal. No discrete abdominal or pelvic wall hernia. VASCULATURE: Normal. Abdominal aorta is non-dilated. LYMPH NODES: Interval enlargement of the retroperitoneal lymph nodes adjacent to the aorta and inferior vena cava raising possibility of metastatic disease. IMPRESSION: 1. Interval enlargement of complex cystic left adnexal mass which may represent ovarian neoplasm. 2. Interval development of moderate volume ascites. 3. Multiple thick-walled loops of large and small bowel consistent with inflammatory bowel disease. 4. Enlarging retroperitoneal lymph nodes which may represent metastatic disease. She was transferred to [facility] for gynecologic oncology surgery. Underwent diagnostic laparoscopy with peritoneal biopsy along with transverse loop diverting colostomy on 07/15/2023. Patient was found to have carcinomatosis with diffuse disease on right and left diaphragm. There were dense adhesions between liver immediately lateral to the falciform and diaphragm. Tumor infiltration of the falciform and freddy hepatis was observed. Pelvis was not visualized due to multiple loops of small bowel that were adherent to the pelvis. There was a plaque of tumor overlying the bladder peritoneum. Unable to visualize ovarian masses due to small bowel adherent to the sigmoid colon. Diffuse thickening of the paracolic gutter peritoneum was observed. There was thickened omentum without obvious implants including supracolic omentum with decreased mobility of transverse colon. 1000 cc of murky green ascites was aspirated. Biopsies were obtained of the peritoneal implants. 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 See comment. Identical morphologic features are noted within the present, peritoneal specimen that are found within the recent abdominal fluid cytology specimen, [id number]. Confirmatory immunohistochemistry was performed on the cytology specimen supporting a diagnosis of serous carcinoma. Per initial consultation here: Appetite okay--small meals. Taking Zofran regularly. Small amount reflux--TUMS prn. Ostomy working well. Pain improved. Previous therapy: 1) Neoadjuvant chemotherapy with paclitaxel and carboplatin x3 cycles. 2) Exploratory laparotomy, lysis of adhesions, total abdominal hysterectomy, bilateral salpingo-oophorectomy with en block rectosigmoid resection, cystoscopy and temporary bilateral ureteral stents (urology) on 10/28/23. Pathology: A. Uterus, cervix with right fallopian tube and ovary, total abdominal hysterectomy with right salpingo-oophorectomy: -- Ovary: Involved by high-grade serous carcinoma, status post neoadjuvant chemotherapy, see comment and case summary. -- Fallopian tube: Involved by high-grade serous carcinoma, see comment. -- Endometrium: Atrophic endometrium. -- Myometrium: No significant histopathologic abnormalities. -- Serosa: Involved by high-grade serous carcinoma. -- Cervix: Outer part of the cervical stroma focally involved by carcinoma. -- Vessels with medial calcific sclerosis. B. Rectosigmoid colon and left ovary and fallopian tube, low anterior colon resection and left salpingo-oophorectomy: -- Ovary: Involved by high-grade serous carcinoma with adhesions to the colonic wall. -- Fallopian tube: No fallopian tube identified grossly or microscopically. -- Colon: High-grade serous carcinoma invades through muscularis propria into the submucosa, see comment. -- Metastatic carcinoma in two out of four lymph nodes (2 mi/4), biggest deposit 0.8 mm, see comment. -- Isolated tumor cells in one out of four lymph nodes (ITCs/1). -- Soft tissue attached to the lymph nodes involved by high-grade serous carcinoma. SPECIMEN Procedure Total hysterectomy and bilateral salpingo-oophorectomy Low anterior colon resection Specimen Integrity Right Ovary Integrity Capsule intact Specimen Integrity Left Ovary Integrity Capsule intact Specimen Integrity Right Fallopian Tube Integrity Serosa intact Uterus Integrity Intact TUMOR Tumor Site Bilateral ovaries Tumor Size Greatest Dimension (Centimeters): 5.2 cm Histologic Type High grade serous carcinoma Histologic Grade High grade Ovarian Surface Involvement Present, right and left Fallopian Tube Surface Involvement Present, right Other Tissue / Organ Involvement Right fallopian tube Pelvic peritoneum Sigmoid colon Peritoneal / Ascitic Fluid Involvement Not submitted / unknown Chemotherapy Response Score (CRS) Cannot be determined: No omentum submitted REGIONAL LYMPH NODES Regional Lymph Node Status Tumor present in regional lymph node(s) Number of Nodes with Metastasis Greater than 10 mm 0 Number of Nodes with Metastasis 10 mm or Less (excluding isolated tumor cells) 2 Lanny Site(s) with Tumor Pericolonic lymph nodes Size of Largest Lanny Metastatic Deposit At least: 0.8 mm Location of Largest Lanny Metastatic Deposit Pericolonic lymph nodes Number of Lymph Nodes Examined 4 Lanny Site(s) Examined Pericolonic lymph nodes pTNM CLASSIFICATION (AJCC 8th Edition) Reporting of pT, pN, and (when applicable) pM categories is based on information available to the pathologist at the time the report is issued. As per the AJCC (Chapter 1, 8th Ed.) it is the managing physician s responsibility to establish the final pathologic stage based upon all pertinent information, including but potentially not limited to this pathology report. Modified Classification y pT Category pT3a pN Category pN1a FIGO STAGE FIGO Stage IIIA1(i) Presents for ongoing oncologic management. Evaluation for cycle #5. Interim history: She required a platelet transfusion after cycle #5 for a platelet rafa count of 14,000. No unusual bleeding or unexplained bruising. Feels well today. Appetite doing well. Good energy. Ostomy working well. Stool consistency has been the same, no constipation or diarrhea. No abdominal pain. PAST MEDICAL HISTORY Diagnosis Date Arthritis Cataract Colostomy in place (HCC) ovarian cancer, tumor leaning against bowel Essential hypertension, benign 07/25/1994 Generalized anxiety disorder Nausea and vomiting with chemotherapy and anesthesia Ovarian cancer on left (HCC) PAST SURGICAL HISTORY Procedure Laterality Date COLOSTOMY 07/15/2023 transverse loop diverting L'SCOPE DX W/WO BRUSHINGS/WASHINGS 07/15/2023 with peritoneal biopsy LAPAROSCOPIC OMENTECTOMY 10/28/2023 LIG/TRNSXJ FLP TUBE ABDL/VAG APPR UNI/BI 07/25/1981 Tubal ligation TONSILLECTOMY & ADENOIDECTOMY <AGE 12 07/25/1962 TOTAL ABDOM HYSTERECTOMY 10/28/2023 TOTAL ABDOMINAL HYSTERECT W/WO RMVL TUBE OVARY 10/28/2023 ALLERGIES Allergen Reactions Erythromycin Diarrhea, GI Upset Abdominal cramping Penicillins Unknown Current Outpatient Medications Medication Sig acetaminophen (TYLENOL) 500 mg tablet Take 2 tablets by mouth every 6 hours. lisinopril-hydroCHLOROthiazide (ZESTORETIC) 20-12.5 mg per tablet Take 1 tablet by mouth once daily. (Patient taking differently: Take 1 tablet by mouth two times a day.) vitamin b complex capsule Take 1 capsule by mouth once daily. polyethylene glycol 3350 (MIRALAX) 17 gram/dose powder Take 34 g by mouth once daily. Dissolve dose in 4 - 8 ounces of liquid and take as directed. oxybutynin ER (DITROPAN XL) 10 mg 24 hr tablet Take 15 mg by mouth once daily. pantoprazole DR (PROTONIX) 40 mg tablet Take 1 tablet by mouth once daily. lidocaine-prilocaine (EMLA) 2.5-2.5 % cream Apply 60 minutes prior to accessing port calcium carbonate (CALCIUM 600 ORAL) Take 1 tablet by mouth once daily. ondansetron (ZOFRAN) 8 mg tablet Take 1 tablet by mouth every 8 hours as needed for nausea/vomiting. (Patient taking differently: Take 8 mg by mouth every 8 hours as needed for nausea/vomiting.) dexAMETHasone (DECADRON) 4 mg tablet Take 5 tablets 12 and 6 hours prior to chemotherapy treatment. No current facility-administered medications for this visit. Social History Tobacco Use Smoking status: Former Years: 2 Types: Cigarettes Quit date: 07/25/1974 Years since quittin.5 Smokeless tobacco: Never Tobacco comments: Pt smoked an occ cigarette for 2 approx years Vaping Use Vaping Use: Never used Substance Use Topics Alcohol use: Yes Alcohol/week: 2.0 standard drinks of alcohol Types: 2 Glasses of Wine (5oz) per week Drug use: No Family history: Father-hypertension Maternal aunt--Breast cancer in her 60s. PGM--Breast cancer in her 80s. Mother-- of metastatic cancer at age 80. Sister--Larynx cancer. ROS: Constitutional: No fever. No drenching night sweats. Neuro: No recent PERAZA, vertigo, dizziness or imbalance. HEENT: No recent change in voice, vision or hearing. Resp: No cough, wheeze of hemoptysis. No shortness of breath at rest. No KEENE. CVS: No exertional chest pain, PND or orthopnea. No extremity swelling/edema. No symptoms of claudication. No painful or tender varicose veins. GI: See above. : No dysuria or gross hematuria. No symptoms of bladder outlet obstruction. Endo: No hot flashes. No polyuria or polydipsia. No heat or cold intolerance. Musculoskeletal: Diagnosed with RA 2015. Hip pain. Controlled with Plaquenil. Derm: No current rash. No history of jaundice. No diffuse pruritis. Heme: No unusual bleeding and unexplained bruising. Psych: Normal mood. PHYSICAL EXAM: Vitals: Blood pressure 187/84, pulse 72, temperature 36.4 C (97.6 F), temperature source Temporal, weight 53.3 kg (117 lb 8 oz), SpO2 98%. Well-appearing and in no acute distress. EYES: Sclerae are anicteric bilaterally. LYMPHATIC: There is no palpable cervical, supraclavicular, axillary adenopathy. RESPIRATORY: Inspiratory breath sounds are of normal intensity in all dominguez. No rales, wheezes or rhonchi. Expiratory phase is normal. CARDIOVASCULAR: Rhythm is regular. ABDOMEN: The abdomen is nondistended. Ostomy appears healthy. SKIN: No jaundice. 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 -Presented with partial large bowel obstruction status post transverse loop diverting colostomy. Not able to undergo upfront debulking surgery. -Tolerating carboplatin and paclitaxel very well overall. 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 -White coat HTN (home BP this am 140 SBP). -Reviewed CBC. -Continues to tolerate chemotherapy very well overall. No symptoms of neuropathy. Plan: -Okay for cycle #6 tomorrow pending final results of today's CBC. -CT chest, abdomen pelvis then opinion from Dr. Vilchis on maintenance therapy. -Will need referral to colorectal surgery for colostomy takedown once completes adjuvant chemotherapy. -Continue B complex vitamin. -Her children plan to talk with their PCP and carrot buncher about genetic counseling. Portions of this documentation were copied and pasted from previous office visit notes in order to provide a cohesive continuity of the history. The note has been reviewed and edited and updated as necessary. I spent a total of 15 minutes on the date of the service which included preparing to see the patient, [id number] patient care, completing clinical documentation, obtaining and/or reviewing separately obtained history, performing a medically appropriate examination, counseling and educating the patient/family/caregiver, ordering medications, tests, or procedures, communicating with other HCPs (not separately reported), and communicating results to the patient/family/caregiver. Hiram Mccoy DO documented in this encounter [facility] 01-11-2024 Telephone encounter Note One unit of platelets to be transfused 01/12/24 at [facility] at 11AM, pt notified and order faxed. Roselyn Pittman LPN [facility] 01-11-2024 Miscellaneous Notes One unit of platelets to be transfused 01/12/24 at [facility] at 11AM, pt notified and order faxed. Roselyn Pittman LPN documented in this encounter [facility] 01-11-2024 History of Present illness Narrative Patient is here for IVAD port flush/blood draw. IVAD is located in right upper chest. Site cleansed with Chloraprep IVAD accessed with a #20 gauge 3/4 non-coring Gripper needle Flush with 5cc's Normal Saline. Blood Return: Good. 10 cc's blood aspirated and discarded. Blood drawn for CBC and type and cross . Flushed with: 20 ml Normal Saline. Non-coring needle removed. Paper tape applied to puncture site. Site negative for redness, edema or tenderness. Patient tolerated procedure well. Sophia Herrera RN documented in this encounter [facility] 01-04-2024 History of Present illness Narrative Patient is here for IVAD port flush/blood draw per [facility] protocol. IVAD is located in right upper chest. Site cleansed with Chloraprep IVAD accessed with a #20 gauge 3/4 non-coring Gripper needle Flush with 5cc's Normal Saline. Blood Return: Good. 10 cc's blood aspirated and discarded. Blood drawn for CBC, Red top, and [facility] top. Flushed with: 20 ml Normal Saline and 10 ml Normal Saline. Non-coring needle removed. Paper tape applied to puncture site. Site negative for redness, edema or tenderness. Patient tolerated procedure well. documented in this encounter [facility] 12-28-2023 Telephone encounter Note Scheduled patient chair side. Kristine Hardy [facility] 12-28-2023 Miscellaneous Notes Scheduled patient chair side. Kristine Hardy PSS- please schedule patient for weekly CBC(?TX) X 2 weeks, beginning next week. Patient has port. Victorina Rebolledo LPN documented in this encounter [facility] 12-28-2023 Telephone encounter Note PSS- please schedule patient for weekly CBC(?TX) X 2 weeks, beginning next week. Patient has port. Victorina Rebolledo LPN [facility] 12-27-2023 History of Present illness Narrative Oncologic problem(s): 1) Serous carcinoma of the left ovary. HPI: The patient is a 73-year-old female with a past medical history significant for hypertension and rheumatoid arthritis. Presented to the ED at [facility] on 07/10/2023 with complaints of nausea and vomiting that started approximately 24 hours before presentation. This was accompanied with diarrhea. She been having intermittent abdominal pain for a couple months. Approximate 10 pound weight loss. Evidently underwent colonoscopy in March that demonstrated a constricted colon. CT A/P 07/10/2023: LOWER THORAX: Normal. Lung bases are clear. No cardiomegaly. No pericardial effusion. ABDOMEN: LIVER: Stable 12 mm lesion within hepatic segment 7 and 14 mm lesion within hepatic segment 3 suggestive of hemangiomata. PANCREAS: Normal. No focal cystic or solid mass. SPLEEN: Normal. Normal size without focal cystic or solid mass. ADRENALS: Normal. No nodules. KIDNEYS AND URETERS: Normal. Normal renal size and position. No hydronephrosis. STOMACH AND BOWEL: Multiple dilated thick-walled small bowel loops noted within the lower abdomen. There is fluid distention of the ascending and transverse colon. Prominent wall thickening of the sigmoid colon. PELVIS: APPENDIX: Appendix is visualized and normal in appearance. BLADDER: Normal. REPRODUCTIVE: 4.8 cm left adnexal cystic mass has significantly increased in size from prior study raising possibility of underlying cystic ovarian neoplasm. ABDOMEN and PELVIS: INTRAPERITONEAL SPACE: Interval development of moderate volume ascites. No free air. BONES/JOINTS: No suspicious lytic or blastic abnormality. SOFT TISSUES: Normal. No discrete abdominal or pelvic wall hernia. VASCULATURE: Normal. Abdominal aorta is non-dilated. LYMPH NODES: Interval enlargement of the retroperitoneal lymph nodes adjacent to the aorta and inferior vena cava raising possibility of metastatic disease. IMPRESSION: 1. Interval enlargement of complex cystic left adnexal mass which may represent ovarian neoplasm. 2. Interval development of moderate volume ascites. 3. Multiple thick-walled loops of large and small bowel consistent with inflammatory bowel disease. 4. Enlarging retroperitoneal lymph nodes which may represent metastatic disease. She was transferred to [facility] for gynecologic oncology surgery. Underwent diagnostic laparoscopy with peritoneal biopsy along with transverse loop diverting colostomy on 07/15/2023. Patient was found to have carcinomatosis with diffuse disease on right and left diaphragm. There were dense adhesions between liver immediately lateral to the falciform and diaphragm. Tumor infiltration of the falciform and freddy hepatis was observed. Pelvis was not visualized due to multiple loops of small bowel that were adherent to the pelvis. There was a plaque of tumor overlying the bladder peritoneum. Unable to visualize ovarian masses due to small bowel adherent to the sigmoid colon. Diffuse thickening of the paracolic gutter peritoneum was observed. There was thickened omentum without obvious implants including supracolic omentum with decreased mobility of transverse colon. 1000 cc of murky green ascites was aspirated. Biopsies were obtained of the peritoneal implants. 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 See comment. Identical morphologic features are noted within the present, peritoneal specimen that are found within the recent abdominal fluid cytology specimen, [id number]. Confirmatory immunohistochemistry was performed on the cytology specimen supporting a diagnosis of serous carcinoma. Per initial consultation here: Appetite okay--small meals. Taking Zofran regularly. Small amount reflux--TUMS prn. Ostomy working well. Pain improved. Previous therapy: 1) Neoadjuvant chemotherapy with paclitaxel and carboplatin x3 cycles. 2) Exploratory laparotomy, lysis of adhesions, total abdominal hysterectomy, bilateral salpingo-oophorectomy with en block rectosigmoid resection, cystoscopy and temporary bilateral ureteral stents (urology) on 10/28/23. Pathology: A. Uterus, cervix with right fallopian tube and ovary, total abdominal hysterectomy with right salpingo-oophorectomy: -- Ovary: Involved by high-grade serous carcinoma, status post neoadjuvant chemotherapy, see comment and case summary. -- Fallopian tube: Involved by high-grade serous carcinoma, see comment. -- Endometrium: Atrophic endometrium. -- Myometrium: No significant histopathologic abnormalities. -- Serosa: Involved by high-grade serous carcinoma. -- Cervix: Outer part of the cervical stroma focally involved by carcinoma. -- Vessels with medial calcific sclerosis. B. Rectosigmoid colon and left ovary and fallopian tube, low anterior colon resection and left salpingo-oophorectomy: -- Ovary: Involved by high-grade serous carcinoma with adhesions to the colonic wall. -- Fallopian tube: No fallopian tube identified grossly or microscopically. -- Colon: High-grade serous carcinoma invades through muscularis propria into the submucosa, see comment. -- Metastatic carcinoma in two out of four lymph nodes (2 mi/4), biggest deposit 0.8 mm, see comment. -- Isolated tumor cells in one out of four lymph nodes (ITCs/1). -- Soft tissue attached to the lymph nodes involved by high-grade serous carcinoma. SPECIMEN Procedure Total hysterectomy and bilateral salpingo-oophorectomy Low anterior colon resection Specimen Integrity Right Ovary Integrity Capsule intact Specimen Integrity Left Ovary Integrity Capsule intact Specimen Integrity Right Fallopian Tube Integrity Serosa intact Uterus Integrity Intact TUMOR Tumor Site Bilateral ovaries Tumor Size Greatest Dimension (Centimeters): 5.2 cm Histologic Type High grade serous carcinoma Histologic Grade High grade Ovarian Surface Involvement Present, right and left Fallopian Tube Surface Involvement Present, right Other Tissue / Organ Involvement Right fallopian tube Pelvic peritoneum Sigmoid colon Peritoneal / Ascitic Fluid Involvement Not submitted / unknown Chemotherapy Response Score (CRS) Cannot be determined: No omentum submitted REGIONAL LYMPH NODES Regional Lymph Node Status Tumor present in regional lymph node(s) Number of Nodes with Metastasis Greater than 10 mm 0 Number of Nodes with Metastasis 10 mm or Less (excluding isolated tumor cells) 2 Lanny Site(s) with Tumor Pericolonic lymph nodes Size of Largest Lanny Metastatic Deposit At least: 0.8 mm Location of Largest Lanny Metastatic Deposit Pericolonic lymph nodes Number of Lymph Nodes Examined 4 Lanny Site(s) Examined Pericolonic lymph nodes pTNM CLASSIFICATION (AJCC 8th Edition) Reporting of pT, pN, and (when applicable) pM categories is based on information available to the pathologist at the time the report is issued. As per the AJCC (Chapter 1, 8th Ed.) it is the managing physician s responsibility to establish the final pathologic stage based upon all pertinent information, including but potentially not limited to this pathology report. Modified Classification y pT Category pT3a pN Category pN1a FIGO STAGE FIGO Stage IIIA1(i) Presents for ongoing oncologic management. Evaluation for cycle #5. Interim history: Cycle #4 went well. No neuropathy. Good appetite. Ostomy working well. No abdominal pain or soreness. Good energy. PAST MEDICAL HISTORY Diagnosis Date Arthritis Cataract Colostomy in place (HCC) ovarian cancer, tumor leaning against bowel Essential hypertension, benign 07/25/1994 Generalized anxiety disorder Nausea and vomiting with chemotherapy and anesthesia Ovarian cancer on left (HCC) PAST SURGICAL HISTORY Procedure Laterality Date COLOSTOMY 07/15/2023 transverse loop diverting L'SCOPE DX W/WO BRUSHINGS/WASHINGS 07/15/2023 with peritoneal biopsy LAPAROSCOPIC OMENTECTOMY 10/28/2023 LIG/TRNSXJ FLP TUBE ABDL/VAG APPR UNI/BI 07/25/1981 Tubal ligation TONSILLECTOMY & ADENOIDECTOMY <AGE 12 07/25/1962 TOTAL ABDOM HYSTERECTOMY 10/28/2023 TOTAL ABDOMINAL HYSTERECT W/WO RMVL TUBE OVARY 10/28/2023 ALLERGIES Allergen Reactions Erythromycin Diarrhea, GI Upset Abdominal cramping Penicillins Unknown Current Outpatient Medications Medication Sig acetaminophen (TYLENOL) 500 mg tablet Take 2 tablets by mouth every 6 hours. lisinopril-hydroCHLOROthiazide (ZESTORETIC) 20-12.5 mg per tablet Take 1 tablet by mouth once daily. (Patient taking differently: Take 1 tablet by mouth two times a day.) vitamin b complex capsule Take 1 capsule by mouth once daily. polyethylene glycol 3350 (MIRALAX) 17 gram/dose powder Take 34 g by mouth once daily. Dissolve dose in 4 - 8 ounces of liquid and take as directed. oxybutynin ER (DITROPAN XL) 10 mg 24 hr tablet Take 15 mg by mouth once daily. pantoprazole DR (PROTONIX) 40 mg tablet Take 1 tablet by mouth once daily. lidocaine-prilocaine (EMLA) 2.5-2.5 % cream Apply 60 minutes prior to accessing port calcium carbonate (CALCIUM 600 ORAL) Take 1 tablet by mouth once daily. ondansetron (ZOFRAN) 8 mg tablet Take 1 tablet by mouth every 8 hours as needed for nausea/vomiting. (Patient taking differently: Take 8 mg by mouth every 8 hours as needed for nausea/vomiting.) dexAMETHasone (DECADRON) 4 mg tablet Take 5 tablets 12 and 6 hours prior to chemotherapy treatment. naloxone 4 mg/actuation nasal spray (NARCAN) Use 1 spray in one nostril as needed for overdose. May repeat every 2 to 3 min in alternating nostrils until medical assistance is available No current facility-administered medications for this visit. Social History Tobacco Use Smoking status: Former Years: 2 Types: Cigarettes Quit date: 07/25/1974 Years since quittin.4 Smokeless tobacco: Never Tobacco comments: Pt smoked an occ cigarette for 2 approx years Vaping Use Vaping Use: Never used Substance Use Topics Alcohol use: Yes Alcohol/week: 2.0 standard drinks of alcohol Types: 2 Glasses of Wine (5oz) per week Drug use: No Family history: Father-hypertension Maternal aunt--Breast cancer in her 60s. PGM--Breast cancer in her 80s. Mother-- of metastatic cancer at age 80. Sister--Larynx cancer. ROS: Constitutional: No fever. No drenching night sweats. Neuro: No recent PERAZA, vertigo, dizziness or imbalance. HEENT: No recent change in voice, vision or hearing. Resp: No cough, wheeze of hemoptysis. No shortness of breath at rest. No KEENE. CVS: No exertional chest pain, PND or orthopnea. No extremity swelling/edema. No symptoms of claudication. No painful or tender varicose veins. GI: See above. : No dysuria or gross hematuria. No symptoms of bladder outlet obstruction. Endo: No hot flashes. No polyuria or polydipsia. No heat or cold intolerance. Musculoskeletal: Diagnosed with RA 2014. Hip pain. Controlled with Plaquenil. Derm: No current rash. No history of jaundice. No diffuse pruritis. Heme: No unusual bleeding and unexplained bruising. Psych: Normal mood. PHYSICAL EXAM: Vitals: Blood pressure 165/71, pulse 73, temperature 36.7 C (98 F), weight 53.3 kg (117 lb 8.1 oz), SpO2 100%. Well-appearing and in no acute distress. EYES: Sclerae are anicteric bilaterally. LYMPHATIC: There is no palpable cervical, supraclavicular, axillary adenopathy. RESPIRATORY: Inspiratory breath sounds are of normal intensity in all dominguez. No rales, wheezes or rhonchi. Expiratory phase is normal. CARDIOVASCULAR: Rhythm is regular. ABDOMEN: The abdomen is nondistended. Ostomy appears healthy. SKIN: No jaundice. LABS: Latest Ref Rng 12/27/2023 WBC 3.70 - 11.00 k/uL 3.49 (L) RBC 3.90 - 5.20 m/uL 2.69 (L) Hemoglobin 11.5 - 15.5 g/dL 8.7 (L) Hematocrit 36.0 - 46.0 % 26.1 (L) MCV 80.0 - 100.0 fL 97.0 MCH 26.0 - 34.0 pg 32.3 MCHC 30.5 - 36.0 g/dL 33.3 RDW-CV 11.5 - 15.0 % 13.0 Platelet Count 150 - 400 k/uL 62 (L) MPV 9.0 - 12.7 fL 11.1 Neut% % 49.8 Abs Neut (ANC) 1.45 - 7.50 k/uL 1.74 Lymph% % 36.4 Abs Lymph 1.00 - 4.00 k/uL 1.27 [place]% % 10.6 Abs [place] <0.87 k/uL 0.37 Eosin% % 2.0 Abs Eosin <0.46 k/uL 0.07 Baso% % 0.3 Abs Baso <0.11 k/uL <0.03 Immature Gran % % 0.9 IMMATURE GRANS (ABS) <0.10 k/uL 0.03 NRBC /100 WBC 0.0 Absolute nRBC <0.01 k/uL <0.01 DTYPE Auto ASSESSMENT/PLAN: (C56.2) Ovarian cancer on left (HCC) (primary encounter diagnosis) Assessment: -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 -Presented with partial large bowel obstruction status post transverse loop diverting colostomy. Not able to undergo upfront debulking surgery. -Tolerating carboplatin and paclitaxel very well overall. 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 -White coat HTN (home BP this am 130/74). -Reviewed CBC. Thrombocytopenia. -Continues to tolerate chemotherapy very well overall. No symptoms of neuropathy. Plan: -Okay for cycle #5 tomorrow if platelets recover. -Will need referral to colorectal surgery for colostomy takedown once completes adjuvant chemotherapy. -Continue B complex vitamin. -Her children plan to talk with their PCP and carrot buncher about genetic counseling. Portions of this documentation were copied and pasted from previous office visit notes in order to provide a cohesive continuity of the history. The note has been reviewed and edited and updated as necessary. I spent a total of 15 minutes on the date of the service which included preparing to see the patient, [id number] patient care, completing clinical documentation, obtaining and/or reviewing separately obtained history, performing a medically appropriate examination, counseling and educating the patient/family/caregiver, ordering medications, tests, or procedures, and communicating results to the patient/family/caregiver. Hiram Mccoy DO documented in this encounter [facility] 12-27-2023 Nurse Note Est. Pt, discuss recent labs, tx tomorrow. Kelsy Storm LPN [facility] 12-27-2023 Nurse Note Est. Pt, discuss recent labs, tx tomorrow. Kelsy Storm LPN documented in this encounter [facility] 12-06-2023 History of Present illness Narrative Radiology Service Progress Note PATIENT NAME: Gasper Reed DATE OF SERVICE: December 06, 2023 TIME: 3:27 PM PATIENT IDENTITY VERIFICATION COMPLETED USING TWO (2) IDENTIFIERS: Name and Date of confirmed by patient verbally. FALL SCREENING: Has the patient had 2 falls in the last year or 1 fall with injury or currently using an Ambulatory Assistive Device (Walker, Cane, Wheelchair, Crutches, etc.)? No PATIENT GENDER DATA: Female. status: : No status: NO. PATIENT RELEVANT IMPLANT DATA REVIEWED: Not Applicable PATIENT PRESENTS WITH AN IMPLANTABLE OR ATTACHED HEAD RIGGER: No RADIOLOGY DEPARTMENT: Ultrasound PERIPHERAL IV DATA: Not applicable SIGNED BY: Luz Holman RDMS RVT December 06, 2023 3:27 PM documented in this encounter [facility] 12-06-2023 Miscellaneous Notes Ultrasound of liver showed no sign of cancer. No sign of cirrhosis. documented in this encounter [facility] 12-06-2023 Progress note Formatting of t his note might be different from the original. Ultrasound of liver showed no sign of cancer. No sign of cirrhosis. [facility] 12-06-2023 Telephone encounter Note Spoke with patient and scheduled for later today. Debra Solorzano [facility] 12-06-2023 Miscellaneous Notes Spoke with patient and scheduled for later today. Debra Solorzano Will inform pt per below. PSR's please schedule US. Pt will be in for treatment this AM. Thank you. Chemistries yesterday demonstrated mild increase in LFTs and alkaline phosphatase. Ask her to discontinue Tylenol if taking it. Okay to proceed with chemotherapy today. However, please schedule for ultrasound liver as soon as able. Hiram Mccoy DO documented in this encounter [facility] 12-06-2023 Telephone encounter Note Will inform pt per below. PSR's please schedule US. Pt will be in for treatment this AM. Thank you. [facility] 12-06-2023 Telephone encounter Note Chemistries yesterday demonstrated mild increase in LFTs and alkaline phosphatase. Ask her to discontinue Tylenol if taking it. Okay to proceed with chemotherapy today. However, please schedule for ultrasound liver as soon as able. Hiram Mccoy DO [facility] 12-05-2023 History of Present illness Narrative Oncologic problem(s): 1) Serous carcinoma of the left ovary. HPI: The patient is a 72-year-old female with a past medical history significant for hypertension and rheumatoid arthritis. Presented to the ED at [facility] on 07/10/2023 with complaints of nausea and vomiting that started approximately 24 hours before presentation. This was accompanied with diarrhea. She been having intermittent abdominal pain for a couple months. Approximate 10 pound weight loss. Evidently underwent colonoscopy in March that demonstrated a constricted colon. CT A/P 07/10/2023: LOWER THORAX: Normal. Lung bases are clear. No cardiomegaly. No pericardial effusion. ABDOMEN: LIVER: Stable 12 mm lesion within hepatic segment 7 and 14 mm lesion within hepatic segment 3 suggestive of hemangiomata. PANCREAS: Normal. No focal cystic or solid mass. SPLEEN: Normal. Normal size without focal cystic or solid mass. ADRENALS: Normal. No nodules. KIDNEYS AND URETERS: Normal. Normal renal size and position. No hydronephrosis. STOMACH AND BOWEL: Multiple dilated thick-walled small bowel loops noted within the lower abdomen. There is fluid distention of the ascending and transverse colon. Prominent wall thickening of the sigmoid colon. PELVIS: APPENDIX: Appendix is visualized and normal in appearance. BLADDER: Normal. REPRODUCTIVE: 4.8 cm left adnexal cystic mass has significantly increased in size from prior study raising possibility of underlying cystic ovarian neoplasm. ABDOMEN and PELVIS: INTRAPERITONEAL SPACE: Interval development of moderate volume ascites. No free air. BONES/JOINTS: No suspicious lytic or blastic abnormality. SOFT TISSUES: Normal. No discrete abdominal or pelvic wall hernia. VASCULATURE: Normal. Abdominal aorta is non-dilated. LYMPH NODES: Interval enlargement of the retroperitoneal lymph nodes adjacent to the aorta and inferior vena cava raising possibility of metastatic disease. IMPRESSION: 1. Interval enlargement of complex cystic left adnexal mass which may represent ovarian neoplasm. 2. Interval development of moderate volume ascites. 3. Multiple thick-walled loops of large and small bowel consistent with inflammatory bowel disease. 4. Enlarging retroperitoneal lymph nodes which may represent metastatic disease. She was transferred to [facility] for gynecologic oncology surgery. Underwent diagnostic laparoscopy with peritoneal biopsy along with transverse loop diverting colostomy on 07/15/2023. Patient was found to have carcinomatosis with diffuse disease on right and left diaphragm. There were dense adhesions between liver immediately lateral to the falciform and diaphragm. Tumor infiltration of the falciform and freddy hepatis was observed. Pelvis was not visualized due to multiple loops of small bowel that were adherent to the pelvis. There was a plaque of tumor overlying the bladder peritoneum. Unable to visualize ovarian masses due to small bowel adherent to the sigmoid colon. Diffuse thickening of the paracolic gutter peritoneum was observed. There was thickened omentum without obvious implants including supracolic omentum with decreased mobility of transverse colon. 1000 cc of murky green ascites was aspirated. Biopsies were obtained of the peritoneal implants. 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 See comment. Identical morphologic features are noted within the present, peritoneal specimen that are found within the recent abdominal fluid cytology specimen, [id number]. Confirmatory immunohistochemistry was performed on the cytology specimen supporting a diagnosis of serous carcinoma. Per initial consultation here: Appetite okay--small meals. Taking Zofran regularly. Small amount reflux--TUMS prn. Ostomy working well. Pain improved. Previous therapy: 1) Neoadjuvant chemotherapy with paclitaxel and carboplatin x3 cycles. 2) Exploratory laparotomy, lysis of adhesions, total abdominal hysterectomy, bilateral salpingo-oophorectomy with en block rectosigmoid resection, cystoscopy and temporary bilateral ureteral stents (urology) on 10/28/23. Pathology: A. Uterus, cervix with right fallopian tube and ovary, total abdominal hysterectomy with right salpingo-oophorectomy: -- Ovary: Involved by high-grade serous carcinoma, status post neoadjuvant chemotherapy, see comment and case summary. -- Fallopian tube: Involved by high-grade serous carcinoma, see comment. -- Endometrium: Atrophic endometrium. -- Myometrium: No significant histopathologic abnormalities. -- Serosa: Involved by high-grade serous carcinoma. -- Cervix: Outer part of the cervical stroma focally involved by carcinoma. -- Vessels with medial calcific sclerosis. B. Rectosigmoid colon and left ovary and fallopian tube, low anterior colon resection and left salpingo-oophorectomy: -- Ovary: Involved by high-grade serous carcinoma with adhesions to the colonic wall. -- Fallopian tube: No fallopian tube identified grossly or microscopically. -- Colon: High-grade serous carcinoma invades through muscularis propria into the submucosa, see comment. -- Metastatic carcinoma in two out of four lymph nodes (2 mi/4), biggest deposit 0.8 mm, see comment. -- Isolated tumor cells in one out of four lymph nodes (ITCs/1). -- Soft tissue attached to the lymph nodes involved by high-grade serous carcinoma. SPECIMEN Procedure Total hysterectomy and bilateral salpingo-oophorectomy Low anterior colon resection Specimen Integrity Right Ovary Integrity Capsule intact Specimen Integrity Left Ovary Integrity Capsule intact Specimen Integrity Right Fallopian Tube Integrity Serosa intact Uterus Integrity Intact TUMOR Tumor Site Bilateral ovaries Tumor Size Greatest Dimension (Centimeters): 5.2 cm Histologic Type High grade serous carcinoma Histologic Grade High grade Ovarian Surface Involvement Present, right and left Fallopian Tube Surface Involvement Present, right Other Tissue / Organ Involvement Right fallopian tube Pelvic peritoneum Sigmoid colon Peritoneal / Ascitic Fluid Involvement Not submitted / unknown Chemotherapy Response Score (CRS) Cannot be determined: No omentum submitted REGIONAL LYMPH NODES Regional Lymph Node Status Tumor present in regional lymph node(s) Number of Nodes with Metastasis Greater than 10 mm 0 Number of Nodes with Metastasis 10 mm or Less (excluding isolated tumor cells) 2 Lanny Site(s) with Tumor Pericolonic lymph nodes Size of Largest Lanny Metastatic Deposit At least: 0.8 mm Location of Largest Lanny Metastatic Deposit Pericolonic lymph nodes Number of Lymph Nodes Examined 4 Lanny Site(s) Examined Pericolonic lymph nodes pTNM CLASSIFICATION (AJCC 8th Edition) Reporting of pT, pN, and (when applicable) pM categories is based on information available to the pathologist at the time the report is issued. As per the AJCC (Chapter 1, 8th Ed.) it is the managing physician s responsibility to establish the final pathologic stage based upon all pertinent information, including but potentially not limited to this pathology report. Modified Classification y pT Category pT3a pN Category pN1a FIGO STAGE FIGO Stage IIIA1(i) Presents for ongoing oncologic management. Evaluation for cycle #4. Interim history: Had surgery 10/27. No neuropathy. Good appetite. Ostomy working well. No abdominal pain or soreness. PAST MEDICAL HISTORY Diagnosis Date Arthritis Cataract Colostomy in place (HCC) ovarian cancer, tumor leaning against bowel Essential hypertension, benign 07/25/1994 Generalized anxiety disorder Nausea and vomiting with chemotherapy and anesthesia Ovarian cancer on left (HCC) PAST SURGICAL HISTORY Procedure Laterality Date COLOSTOMY 07/15/2023 transverse loop diverting L'SCOPE DX W/WO BRUSHINGS/WASHINGS 07/15/2023 with peritoneal biopsy LAPAROSCOPIC OMENTECTOMY 10/28/2023 LIG/TRNSXJ FLP TUBE ABDL/VAG APPR UNI/BI 07/25/1981 Tubal ligation TONSILLECTOMY & ADENOIDECTOMY <AGE 12 07/25/1962 TOTAL ABDOM HYSTERECTOMY 10/28/2023 TOTAL ABDOMINAL HYSTERECT W/WO RMVL TUBE OVARY 10/28/2023 ALLERGIES Allergen Reactions Erythromycin Diarrhea, GI Upset Abdominal cramping Penicillins Unknown Current Outpatient Medications Medication Sig acetaminophen (TYLENOL) 500 mg tablet Take 2 tablets by mouth every 6 hours. lisinopril-hydroCHLOROthiazide (ZESTORETIC) 20-12.5 mg per tablet Take 1 tablet by mouth once daily. (Patient taking differently: Take 1 tablet by mouth two times a day.) vitamin b complex capsule Take 1 capsule by mouth once daily. polyethylene glycol 3350 (MIRALAX) 17 gram/dose powder Take 34 g by mouth once daily. Dissolve dose in 4 - 8 ounces of liquid and take as directed. oxybutynin ER (DITROPAN XL) 10 mg 24 hr tablet Take 15 mg by mouth once daily. pantoprazole DR (PROTONIX) 40 mg tablet Take 1 tablet by mouth once daily. lidocaine-prilocaine (EMLA) 2.5-2.5 % cream Apply 60 minutes prior to accessing port calcium carbonate (CALCIUM 600 ORAL) Take 1 tablet by mouth once daily. dexAMETHasone (DECADRON) 4 mg tablet Take 5 tablets 12 and 6 hours prior to chemotherapy treatment. naloxone 4 mg/actuation nasal spray (NARCAN) Use 1 spray in one nostril as needed for overdose. May repeat every 2 to 3 min in alternating nostrils until medical assistance is available ondansetron (ZOFRAN) 8 mg tablet Take 1 tablet by mouth every 8 hours as needed for nausea/vomiting. (Patient taking differently: Take 8 mg by mouth every 8 hours as needed for nausea/vomiting.) No current facility-administered medications for this visit. Social History Tobacco Use Smoking status: Former Years: 2 Types: Cigarettes Quit date: 07/25/1974 Years since quittin.3 Smokeless tobacco: Never Tobacco comments: Pt smoked an occ cigarette for 2 approx years Vaping Use Vaping Use: Never used Substance Use Topics Alcohol use: Yes Alcohol/week: 2.0 standard drinks of alcohol Types: 2 Glasses of Wine (5oz) per week Drug use: No Family history: Father-hypertension Maternal aunt--Breast cancer in her 60s. PGM--Breast cancer in her 80s. Mother-- of metastatic cancer at age 80. Sister--Larynx cancer. ROS: Constitutional: No fever. No drenching night sweats. Neuro: No recent PERAZA, vertigo, dizziness or imbalance. HEENT: No recent change in voice, vision or hearing. Resp: No cough, wheeze of hemoptysis. No shortness of breath at rest. No KEENE. CVS: No exertional chest pain, PND or orthopnea. No extremity swelling/edema. No symptoms of claudication. No painful or tender varicose veins. GI: See above. : No dysuria or gross hematuria. No symptoms of bladder outlet obstruction. Endo: No hot flashes. No polyuria or polydipsia. No heat or cold intolerance. Musculoskeletal: Diagnosed with RA 2015. Hip pain. Controlled with Plaquenil. Derm: No current rash. No history of jaundice. No diffuse pruritis. Heme: No unusual bleeding and unexplained bruising. Psych: Normal mood. PHYSICAL EXAM: Vitals: Blood pressure (P) 131/70, pulse (P) 76, temperature (P) 37.1 C (98.7 F), weight (P) 51.9 kg (114 lb 6.7 oz), SpO2 (P) 100%. Well-appearing and in no acute distress. EYES: Sclerae are anicteric bilaterally. LYMPHATIC: There is no palpable cervical, supraclavicular, axillary adenopathy. RESPIRATORY: Inspiratory breath sounds are of normal intensity in all dominguez. No rales, wheezes or rhonchi. Expiratory phase is normal. CARDIOVASCULAR: Rhythm is regular. ABDOMEN: The abdomen is nondistended. Ostomy appears healthy. SKIN: No jaundice. LABS: Latest Ref Rng 12/05/2023 WBC 3.70 - 11.00 k/uL 6.62 RBC 3.90 - 5.20 m/uL 3.18 (L) Hemoglobin 11.5 - 15.5 g/dL 10.4 (L) Hematocrit 36.0 - 46.0 % 31.6 (L) MCV 80.0 - 100.0 fL 99.4 MCH 26.0 - 34.0 pg 32.7 MCHC 30.5 - 36.0 g/dL 32.9 RDW-CV 11.5 - 15.0 % 13.5 Platelet Count 150 - 400 k/uL 199 MPV 9.0 - 12.7 fL 10.4 Neut% % 63.5 Abs Neut (ANC) 1.45 - 7.50 k/uL 4.21 Lymph% % 22.8 Abs Lymph 1.00 - 4.00 k/uL 1.51 [place]% % 7.3 Abs [place] <0.87 k/uL 0.48 Eosin% % 5.6 Abs Eosin <0.46 k/uL 0.37 Baso% % 0.5 Abs Baso <0.11 k/uL 0.03 Immature Gran % % 0.3 IMMATURE GRANS (ABS) <0.10 k/uL <0.03 NRBC /100 WBC 0.0 Absolute nRBC <0.01 k/uL <0.01 DTYPE Auto ASSESSMENT/PLAN: (C56.2) Ovarian cancer on left (HCC) (primary encounter diagnosis) Assessment: -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 -Presented with partial large bowel obstruction status post transverse loop diverting colostomy. Not able to undergo upfront debulking surgery. -Tolerating carboplatin and paclitaxel very well overall. 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 -Reviewed CBC. Anemia improved. Platelets recovered. -Discussed plan to complete 3 adjuvant cycles of carboplatin and paclitaxel. Plan: -Okay for cycle #4 tomorrow. -Will need referral to colorectal surgery for colostomy takedown once completes adjuvant chemotherapy. -Continue B complex vitamin. -Her children plan to talk with their PCP and carrot buncher about genetic counseling. Portions of this documentation were copied and pasted from previous office visit notes in order to provide a cohesive continuity of the history. The note has been reviewed and edited and updated as necessary. I spent a total of 20 minutes on the date of the service which included preparing to see the patient, [id number] patient care, completing clinical documentation, obtaining and/or reviewing separately obtained history, performing a medically appropriate examination, counseling and educating the patient/family/caregiver, ordering medications, tests, or procedures, communicating with other HCPs (not separately reported), and communicating results to the patient/family/caregiver. Hiram Mccoy DO documented in this encounter [facility] 12-05-2023 Nurse Note Est. Pt, discuss recent labs , treatment tomorrow. Kelsy Storm LPN [facility] 12-05-2023 Nurse Note Est. Pt, discuss recent labs , treatment tomorrow. Kelsy Storm LPN documented in this encounter [facility] 12-05-2023 History of Present illness Narrative Patient is here for IVAD port flush/blood draw. IVAD is located in right upper chest. Site cleansed with Chloraprep IVAD accessed with a #20 gauge 3/4 non-coring Gripper needle Flush with 5cc's Normal Saline. Blood Return: Good. 10 cc's blood aspirated and discarded. Blood drawn for CBC, CMP, and CEA. Flushed with: 20 ml Normal Saline. Non-coring needle removed. Paper tape applied to puncture site. Site negative for redness, edema or tenderness. Patient tolerated procedure well. Sophia Herrera RN documented in this encounter [facility] 11-22-2023 Telephone encounter Note Schedule adjusted and patient informed [facility] Work Phone: 11-22-2023 Miscellaneous Notes Schedule adjusted and patient informed Discussed plan with Dr. Mccoy. Please move next cycle up the the week of December 04. Thank you. Fadi Ramirez APRN.HOUSEKEEPING ASSISTANT documented in this encounter [facility] 11-21-2023 Telephone encounter Note Discussed plan with Dr. Mccoy. Please move next cycle up the the week of December 04. Thank you. Fadi Ramirez APRN.HOUSEKEEPING ASSISTANT [facility] Work Phone: 11-18-2023 History of Present illness Narrative Chief Complaint Patient presents with: Established Patient HPI: Gasper Reed is a 72 year old female who presents here today for follow up surgery. Per Dr. Mccoy's previous note: H/o hypertension and rheumatoid arthritis. Presented to the ED at [facility] on 07/10/2023 with complaints of nausea and vomiting that started approximately 24 hours before presentation. This was accompanied with diarrhea. She been having intermittent abdominal pain for a couple months. Approximate 10 pound weight loss. Evidently underwent colonoscopy in March that demonstrated a constricted colon. CT A/P 07/10/2023: LOWER THORAX: Normal. Lung bases are clear. No cardiomegaly. No pericardial effusion. ABDOMEN: LIVER: Stable 12 mm lesion within hepatic segment 7 and 14 mm lesion within hepatic segment 3 suggestive of hemangiomata. PANCREAS: Normal. No focal cystic or solid mass. SPLEEN: Normal. Normal size without focal cystic or solid mass. ADRENALS: Normal. No nodules. KIDNEYS AND URETERS: Normal. Normal renal size and position. No hydronephrosis. STOMACH AND BOWEL: Multiple dilated thick-walled small bowel loops noted within the lower abdomen. There is fluid distention of the ascending and transverse colon. Prominent wall thickening of the sigmoid colon. PELVIS: APPENDIX: Appendix is visualized and normal in appearance. BLADDER: Normal. REPRODUCTIVE: 4.8 cm left adnexal cystic mass has significantly increased in size from prior study raising possibility of underlying cystic ovarian neoplasm. ABDOMEN and PELVIS: INTRAPERITONEAL SPACE: Interval development of moderate volume ascites. No free air. BONES/JOINTS: No suspicious lytic or blastic abnormality. SOFT TISSUES: Normal. No discrete abdominal or pelvic wall hernia. VASCULATURE: Normal. Abdominal aorta is non-dilated. LYMPH NODES: Interval enlargement of the retroperitoneal lymph nodes adjacent to the aorta and inferior vena cava raising possibility of metastatic disease. IMPRESSION: 1. Interval enlargement of complex cystic left adnexal mass which may represent ovarian neoplasm. 2. Interval development of moderate volume ascites. 3. Multiple thick-walled loops of large and small bowel consistent with inflammatory bowel disease. 4. Enlarging retroperitoneal lymph nodes which may represent metastatic disease. She was transferred to [facility] for gynecologic oncology surgery. Underwent diagnostic laparoscopy with peritoneal biopsy along with transverse loop diverting colostomy on 07/15/2023. Patient was found to have carcinomatosis with diffuse disease on right and left diaphragm. There were dense adhesions between liver immediately lateral to the falciform and diaphragm. Tumor infiltration of the falciform and freddy hepatis was observed. Pelvis was not visualized due to multiple loops of small bowel that were adherent to the pelvis. There was a plaque of tumor overlying the bladder peritoneum. Unable to visualize ovarian masses due to small bowel adherent to the sigmoid colon. Diffuse thickening of the paracolic gutter peritoneum was observed. There was thickened omentum without obvious implants including supracolic omentum with decreased mobility of transverse colon. 1000 cc of murky green ascites was aspirated. Biopsies were obtained of the peritoneal implants. 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 See comment. Identical morphologic features are noted within the present, peritoneal specimen that are found within the recent abdominal fluid cytology specimen, [id number]. Confirmatory immunohistochemistry was performed on the cytology specimen supporting a diagnosis of serous carcinoma. Per initial consultation here: Appetite okay--small meals. Taking Zofran regularly. Small amount reflux--TUMS prn. Ostomy working well. Pain improved. Current therapy: 1) Neoadjuvant chemotherapy with paclitaxel and carboplatin. Pt. s/p exploratory laparotomy, lysis of adhesions, total abdominal hysterectomy, bilateral salpingo-oophorectomy with en block rectosigmoid resection, cystoscopy and temporary bilateral ureteral stents (urology) on 10/28/23. The patient's post operative course was complicated by an FRANK which was improving on POD3. She met all milestones for discharge on POD4 from discharge summary on 11/01/23. Attending Guerrero Vilchis MD I'm well. Pt. here today with family member. Apeptite:It's better. Energy level:Better. Denies fevers. Resp:denies cough or sob Cardiac:denies chest pain/palpitations GI:mild pain at surgical site, denies n/v, ostomy functioning well :denies dysuria/hematuria Extrem:denies pain to back/bones/joints Skin:denies rashes Heme:denies bleeding The ROS is otherwise negative. Past medical history, appointments, medications, allergies reviewed. No changes. EXAM: BP 188/81 Pulse 71 Temp 36.4 C (97.5 F) (Temporal) Wt 52.3 kg (115 lb 3.2 oz) BMI 21.07 kg/m APPEARANCE Well appearing, alert, in no acute distress, well-hydrated, well nourished. HEART RRR with normal S1 and S2, no murmurs LUNG clear to auscultation LYMPH NODES No cervical lymphadenopathy, No supraclavicular lymphadenopathy, and No axillary lymphadenopathy. ABDOMEN ostomy, midline scar well healed, bowel sounds normoactive, soft, non-tender EXTREMITIES No edema NEURO Awake, alert and oriented x 3, Normal gait, and No involuntary motions. SKIN Skin color, texture, turgor normal, no suspicious rashes or lesions ASSESSMENT/PLAN: 1. Ovarian cancer on left (HCC) - ICD9: 183.0, ICD10: C56.2 (primary diagnosis) 2. Thrombocytopenia (HCC) - ICD9: 287.5, ICD10: D69.6 3. Antineoplastic chemotherapy induced anemia - ICD9: 285.3, E933.1, ICD10: D64.81, T45.1X5A - Recovered well from surgery. - Reviewed labs with pt. and family member. - Plan to complete three more cycles of chemotherapy. - Will then follow up with Dr. Partida and colorectal surg for colostomy take down. - Follow up as scheduled. - Pt. aware to call office with any questions/concerns. The patient indicates understanding of these issues and agrees with the plan. Discussed case with Dr. Mccoy who agrees with treatment plan. All documentation from previous visit of 10/07/23-Dr. Mccoy was copied and pasted, documentation has been reviewed and edited as necessary for today's visit. Fadi Ramirez APRN.HOUSEKEEPING ASSISTANT documented in this encounter [facility] 11-18-2023 History of Present illness Narrative Patient is here for IVAD port flush/blood draw per [facility] [place] protocol. IVAD is located in right upper chest. Site cleansed with Chloraprep IVAD accessed with a #20 gauge 3/4 non-coring Gripper needle Flush with 5cc's Normal Saline. Blood Return: Good. 10 cc's blood aspirated and discarded. Blood drawn for CBC and CMP. Flushed with: 20 ml Normal Saline. Non-coring needle removed. Paper tape applied to puncture site. Site negative for redness, edema or tenderness. Patient tolerated procedure well. documented in this encounter [facility] 11-11-2023 History of Present illness Narrative DATE OF SERVICE: 11/11/2023 PROBLEM: Gasper Reed presents for postop visit. SURGERY & DATE: 10/28/2023 RAJAN/BSO PATHOLOGY: FINAL DIAGNOSIS A. Uterus, cervix with right fallopian tube and ovary, total abdominal hysterectomy with right salpingo-oophorectomy: -- Ovary: Involved by high-grade serous carcinoma, status post neoadjuvant chemotherapy, see comment and case summary. -- Fallopian tube: Involved by high-grade serous carcinoma, see comment. -- Endometrium: Atrophic endometrium. -- Myometrium: No significant histopathologic abnormalities. -- Serosa: Involved by high-grade serous carcinoma. -- Cervix: Outer part of the cervical stroma focally involved by carcinoma. -- Vessels with medial calcific sclerosis. B. Rectosigmoid colon and left ovary and fallopian tube, low anterior colon resection and left salpingo-oophorectomy: -- Ovary: Involved by high-grade serous carcinoma with adhesions to the colonic wall. -- Fallopian tube: No fallopian tube identified grossly or microscopically. -- Colon: High-grade serous carcinoma invades through muscularis propria into the submucosa, see comment. -- Metastatic carcinoma in two out of four lymph nodes (2 mi/4), biggest deposit 0.8 mm, see comment. -- Isolated tumor cells in one out of four lymph nodes (ITCs/1). -- Soft tissue attached to the lymph nodes involved by high-grade serous carcinoma. Diagnosis Comment In part A immunohistochemical stain for p 53 has been performed on fallopian tube section and shows aberrant null-type pattern. Immunohistochemical stain for cytokeratin AE 1/3 highlights neoplastic cells within most outer part of the cervical stroma. In part B additional deeper levels have been examined on selected block and additional sections of the colon and possible fallopian tube have been examined. Immunohistochemical stain for cytokeratin AE 1/3 has been performed on the section with lymph nodes and highlights neoplastic cells. Please note that pathologic staging is assigned based on the submitted specimen, clinical correlation is recommended. Selected slides have been reviewed by Dr. Malik Ortega, who concurs with the above findings. Laboratory Developed Test (LDT) Disclaimer: Performance characteristics of immunohistochemical, immunofluorescent and chromogenic in-situ hybridization tests have been determined by the performing laboratory within [facility] s Brandin Orosco [facility] Pathology and Laboratory [facility] [place] ([facility], [facility], [facility], [facility], [facility], [facility], or [facility]) in a manner consistent with CLIA requirements. One or more of these tests have not been cleared or approved by the FDA. [facility] is regulated under CLIA as qualified to perform high-complexity testing. These tests are used for clinical purposes. They should not be regarded as investigational or for research. Positive and negative controls stain appropriately. Block for additional Biomarkers/Molecular studies B3 Synoptic Report OVARY or FALLOPIAN TUBE or PRIMARY PERITONEUM 8th Edition - Protocol posted: 10/13/2022 OVARY OR FALLOPIAN TUBE OR PRIMARY PERITONEUM: RESECTION - All Specimens SPECIMEN Procedure Total hysterectomy and bilateral salpingo-oophorectomy Low anterior colon resection Specimen Integrity Right Ovary Integrity Capsule intact Specimen Integrity Left Ovary Integrity Capsule intact Specimen Integrity Right Fallopian Tube Integrity Serosa intact Uterus Integrity Intact TUMOR Tumor Site Bilateral ovaries Tumor Size Greatest Dimension (Centimeters): 5.2 cm Histologic Type High grade serous carcinoma Histologic Grade High grade Ovarian Surface Involvement Present, right and left Fallopian Tube Surface Involvement Present, right Other Tissue / Organ Involvement Right fallopian tube Pelvic peritoneum Sigmoid colon Peritoneal / Ascitic Fluid Involvement Not submitted / unknown Chemotherapy Response Score (CRS) Cannot be determined: No omentum submitted REGIONAL LYMPH NODES Regional Lymph Node Status Tumor present in regional lymph node(s) Number of Nodes with Metastasis Greater than 10 mm 0 Number of Nodes with Metastasis 10 mm or Less (excluding isolated tumor cells) 2 Lanny Site(s) with Tumor Pericolonic lymph nodes Size of Largest Lanny Metastatic Deposit At least: 0.8 mm Location of Largest Lanny Metastatic Deposit Pericolonic lymph nodes Number of Lymph Nodes Examined 4 Lanny Site(s) Examined Pericolonic lymph nodes pTNM CLASSIFICATION (AJCC 8th Edition) Reporting of pT, pN, and (when applicable) pM categories is based on information available to the pathologist at the time the report is issued. As per the AJCC (Chapter 1, 8th Ed.) it is the managing physician s responsibility to establish the final pathologic stage based upon all pertinent information, including but potentially not limited to this pathology report. Modified Classification y pT Category pT3a pN Category pN1a FIGO STAGE FIGO Stage IIIA1(i SUBJECTIVE/INTERVAL HISTORY: Gasper Valadez Marielle reports that she feels well. No fever or chills. . No shortness of breath, cough, or chest painNo incisional redness, swelling, or drainage. Patient reports that her appetite is good. No abdominal pain, nausea, vomiting, diarrhea, or constipation. No dysuria, gross hematuria, urinary frequency, urinary urgency, or incontinence. Her ECOG performance status is zero (fully active, able to carry on all pre-disease performance without restriction). Minimal pain. Review of Systems OBJECTIVE: BP 194/79 Pulse 86 Temp (Src) 97.9 (Oral) Wt 116 lb (52.6kg) SpO2 96% OBGyn Exam GENERAL: NAD distress, looks well, here with daughter LUNGS: unlabored on RA, po 96. ABDOMEN: Incision healing well. [place] in tact. Stoma looks fine LOWER EXTREMITIES: No pitting edema, no palpable cords, and no skin changes. PROCEDURE BP 194/79 Pulse 86 Temp (Src) 97.9 (Oral) Wt 116 lb (52.6kg) SpO2 96% Midline abdominal incision well approximated with dio. No redness, swelling, or foul drainage from incision. [place] removed. 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 -Postop restrictions reviewed -will resume chemo on 12/[address] Mccoy -follow up with Dr Partida after chemo completed -will eventually need referral to colorectal for colostomy take down Mayte Gonzalez APRN.HOUSEKEEPING ASSISTANT documented in this encounter [facility] 11-02-2023 Miscellaneous Notes DISCHARGE CALL BACK Today's date: November 02, 2023 Notified of Pt discharge by: Epic notification Patient discharged on 11/01/23 from [facility] to [facility] Primary Cancer Diagnosis: Ovarian Cancer Admitting Diagnosis: surgery, see hospital course below. 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 The patient's post operative course was complicated by an FRANK which was improving on POD3. She met all milestones for discharge on POD4. She passed a passive void trial. The patient will follow up outpatient with Dr. Partida and is planning to continue chemotherapy as scheduled with Dr. eLwis. She was discharged with a total of 28 days of post-operative anti-coagulation. Call Disposition: Patient will follow-up with [facility] onc for surgical follow-up. Patient is scheduled to see Dr. Mccoy on 11/18/23. Joy Bolaños RN documented in this encounter [facility] 10-26-2023 Miscellaneous Notes Called and spoke with patient, verified she has been on low residue diet and reviewed clear liquid diet starting tomorrow. Also reviewed antibiotic course for tomorrow. Instructed patient to bring extra stoma pouches day of surgery. Questions and concerns answered and addressed. Encouraged her to call office as needed. Patient verbalized understanding. Charis Vilchis MD notified. Shannon John RN documented in this encounter [facility] 10-25-2023 Miscellaneous Notes Spoke to florecita to remind her of her surgery on TuesdayOctober 27 arrival time as 10:30 am and procedure time as 12:30p. I also let patient know not to eat or drink after midnight. Patient understood. Milagro Sena MA documented in this encounter [facility] 10-25-2023 Miscellaneous Notes Schedule updated. Daughter notified. Victorina Rebolledo LPN Yes, won't be getting treatment so can cancel that, but keep OV. Keep next treatment if already scheduled. Hiram Mccoy DO Patient is scheduled for a [facility] 10/28/2023. Okay to keep as scheduled 11/18/2023 lab/OV and treatment on 11/22/2023? Victorina Rebolledo LPN DaughterRosa called to cancel 10/27 lab, office visit and 10/31 treatment due to a surgery scheduled for patient on 10/27. documented in this encounter [facility] 10-14-2023 Miscellaneous Notes Spoke to Florecita this morning to let her know her PAT is scheduled for October 19 3pm at [facility] in [facility] . Patient understood. Milagro Sena MA documented in this encounter [facility] 10-13-2023 History of Present illness Narrative Gynecologic Oncology Note [facility] Chief complaint: PreOp HPI: This is a 72 year old patient with [place] IIIC high grade serous carcinoma of presumed ovarian vs fallopian tube origin with pathogenic BRIP1 mutation s/p diagnostic laparoscopy and diverting loop transverse colostomy due to partial LBO and unresectable disease s/p neoadjuvant carboplatin/paclitaxel (C3D1 09/20/23) here to review CT and discuss surgery. Patient reports she is feeling well and denies pain. Reports good ostomy output and does occasionally pass flatus. Reports she has been eating better and feels stronger over all. S/p 3 cycles neoadjuvant chemotherapy - carboplatin/taxol through Dr. Mccoy. Cycle 4 deferred due to anemia and thrombocytopenia ROS: 14 point ROS negative unless indicated in above HPI. Oncologic history: 07/15/23: Diagnostic laparoscopy - extensive infiltration into Ball's pouch, freddy hepatis, dense scarring between liver and diaphragm due to disease infiltration. Debulking aborted. Transverse loop colostomy created. 08/09/23: C1D1 carboplatin/paclitaxel 08/30/23: C2D1 09/20/23: C3D1 Oncology History Ovarian cancer on left (HCC) 07/27/2023 Initial Diagnosis Ovarian cancer on left (HCC) 08/09/2023 - Chemotherapy Treatment goal 2. Oncology Non-Curative Plan Name AMB PACLITAXEL 175 D1 CARBOPLATIN 6 D1 - Q21D Status Active Start Date 08/09/2023 End Date 01/03/2024 (Planned) Provider Hiram Mccoy, DO Chemotherapy CARBOplatin 400 mg in NaCl 0.9% 315 mL (PARAPLATIN), 400 mg (100 % of original dose 415.2 mg), INTRAVENOUS, ONCE, 3 of 8 cycles Dose modification: 415.2 mg (original dose 415.2 mg, Cycle 1), 420 mg (original dose 420 mg, Cycle 2), 405 mg (original dose 405 mg, Cycle 3) Administration: 400 mg (08/09/2023), 400 mg (08/30/2023), 400 mg (09/20/2023) PACLitaxel 270 mg in NaCl 0.9% 585 mL (TAXOL), 175 mg/m2 = 270 mg, INTRAVENOUS, ONCE, 3 of 8 cycles Administration: 270 mg (08/09/2023), 270 mg (08/30/2023), 269.5 mg (09/20/2023) Medical history: PAST MEDICAL HISTORY Diagnosis Date Arthritis Cataract Essential hypertension, benign 07/25/1994 Generalized anxiety disorder Ovarian cancer on left (HCC) Surgical history: PAST SURGICAL HISTORY Procedure Laterality Date COLOSTOMY 07/15/2023 transverse loop diverting HYSTEROSCOPY, DIAGNOSTIC (SEPARATE 02/22/2023 L'SCOPE DX W/WO BRUSHINGS/WASHINGS 07/15/2023 with peritoneal biopsy LIG/TRNSXJ FLP TUBE ABDL/VAG APPR UNI/BI 07/25/1981 Tubal ligation TONSILLECTOMY & ADENOIDECTOMY <AGE 12 07/25/1962 Family history: Family History Problem Relation Age of Onset Osteoporosis Mother smoker other (osteoarthritis) Mother Cancer Mother Coronary Artery Disease Father MA age 40's, age 60's; also smoked and alcoholic Mental illness Sister Renal Disease Sister Cancer Sister other (rheumatoid arthritis) Sister Coronary Artery Disease Brother MA age 49, smoker, recovering alcoholic Breast Cancer Paternal Grandmother late 70's Diabetes Paternal Grandfather Heart Paternal Grandfather Breast Cancer Maternal Aunt age 65 Ovarian cancer Maternal Aunt Social history: Social History Tobacco Use Smoking status: Former Years: 2 Types: Cigarettes Quit date: 07/25/1974 Years since quittin.2 Smokeless tobacco: Never Tobacco comments: Pt smoked an occ cigarette for 2 approx years Vaping Use Vaping Use: Never used Substance Use Topics Alcohol use: Yes Alcohol/week: 2.0 standard drinks of alcohol Types: 2 Glasses of Wine (5oz) per week Drug use: No Medications: Current Outpatient Medications Medication Sig Dispense Refill oxybutynin ER (DITROPAN XL) 10 mg 24 hr tablet Take 10 mg by mouth once daily. pantoprazole DR (PROTONIX) 40 mg tablet Take 1 tablet by mouth once daily. 30 tablet 5 lidocaine-prilocaine (EMLA) 2.5-2.5 % cream Apply 60 minutes prior to accessing port 15 g 3 calcium carbonate (CALCIUM 600 ORAL) Take 1 tablet by mouth once daily. hydroCHLOROthiazide 12.5 mg tablet Take 12.5 mg by mouth once daily. ondansetron (ZOFRAN) 8 mg tablet Take 1 tablet by mouth every 8 hours as needed for nausea/vomiting. 90 tablet 2 dexAMETHasone (DECADRON) 4 mg tablet Take 5 tablets 12 and 6 hours prior to chemotherapy treatment. 10 tablet 5 No current facility-administered medications for this visit. 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 See comment. Diagnosis Comment Identical morphologic features are noted within the present, peritoneal specimen that are found within the recent abdominal fluid cytology specimen, [id number]. Confirmatory immunohistochemistry was performed on the cytology specimen supporting a diagnosis of serous carcinoma. CT abd/pel (10/03): Impression: Overall improvement from the prior exam as described above. Decreased ascites. Decreased size of left adnexal mass. Stable nodularity of the mesentery and peritoneum, likely residual disease., without developing mass. Low-density structure in the right pelvis of 3.3 cm of uncertain significance. A/P: This is a 72 year old with stage IIIC high grade serous ovarian vs fallopian tube cancer s/p diverting loop transverse colostomy for LBO 07/15/2023 s/p neoadjuvant chemotherapy x 3 here for pre-op evaluation. Ovarian/fallopian tube cancer: - S/p 3 cycles neoadjuvant chemotherapy - carboplatin/taxol through Dr. Mccoy; 4th cycle deferred due to low platelets - CT Abd/Pel 10/03 showing overall improvement. - CA 125 down trending 377 > 328 > 334 > 303 > 175 > 96 (10/06) - Multi-Cancer panel through [facility]: turn off the lights was positive for a pathogenic variant in BRIP1 ([id number]) - Assume BRIP1 confirms HRD however need to review and consider if CARIS testing to confirm HRD would be of benefit in guiding maintenance therapy discussions Pre-Op Evaluation: - Discussed debulking surgery and recovery time. - Reviewed that plan would be for laparotomy, RAJAN/BSO, omentectomy, debulking, TAP. Discussed likelihood of needing rectosigmoid resection - if this is the case will leave loop colostomy in place since if she underwent two bowel resections at time of surgery I would recommend diverting loop ileostomy. If rectosigmoid resection not needed, will plan to takedown loop colostomy. - We reviewed the following risks of surgery: infection, blood loss, need for transfusion, intraoperative injury to other structures, DVT/PE, nerve injuries, anesthesia related risks. Given anemia, I anticipate she will need transfusion during and/or after surgery. - Consent signed today for above surgery. Tentative date 10/28/23. Surgery: - T+S, CBC with diff, CMP, Ca-125. Will T+C x 2 units. - Flagyl/Aztrenoam, Heparin - Plan for extended DVT prophylaxis - PAT - Plan for low residue diet 4 days prior to surgery, clears day before surgery, antibiotic bowel prep. Will do enemas in the OR but no mechanical bowel prep given issues with how to manage with colostomy in place. Anemia: - Repeat CBC preop Guerrero Vilchis MD, MPH Gynecologic Oncologist Medical Decision Making: Problems: Low: Stable chronic illness Moderate: 1+ chronic illnesses with change Data: Unique source(s) for external note(s) reviewed: 3+ Unique test result(s) reviewed: 3+ Unique test(s) ordered: 3+ Independent interpretation of test from other physician/QHCP Risk: High: Decision on elective major surgery w/ risk factors Medical Decision Making Level: 5 - High documented in this encounter [facility] 10-07-2023 Miscellaneous Notes Recheck CBC on Tuesday. Victorina Rebolledo LPN Patient s identity has been confirmed by name and birthdate: Yes Call received from [employer] from [employer] at 1049 AM to report an urgent value for platelets with a result of 18. Dr. Mccoy was notified of the result at 1050AM. Hgb 7.6 Victorina Rebolledo LPN documented in this encounter [facility] 10-07-2023 History of Present illness Narrative Oncologic problem(s): 1) Serous carcinoma of the left ovary. HPI: The patient is a 72-year-old female with a past medical history significant for hypertension and rheumatoid arthritis. Presented to the ED at [facility] on 07/10/2023 with complaints of nausea and vomiting that started approximately 24 hours before presentation. This was accompanied with diarrhea. She been having intermittent abdominal pain for a couple months. Approximate 10 pound weight loss. Evidently underwent colonoscopy in March that demonstrated a constricted colon. CT A/P 07/10/2023: LOWER THORAX: Normal. Lung bases are clear. No cardiomegaly. No pericardial effusion. ABDOMEN: LIVER: Stable 12 mm lesion within hepatic segment 7 and 14 mm lesion within hepatic segment 3 suggestive of hemangiomata. PANCREAS: Normal. No focal cystic or solid mass. SPLEEN: Normal. Normal size without focal cystic or solid mass. ADRENALS: Normal. No nodules. KIDNEYS AND URETERS: Normal. Normal renal size and position. No hydronephrosis. STOMACH AND BOWEL: Multiple dilated thick-walled small bowel loops noted within the lower abdomen. There is fluid distention of the ascending and transverse colon. Prominent wall thickening of the sigmoid colon. PELVIS: APPENDIX: Appendix is visualized and normal in appearance. BLADDER: Normal. REPRODUCTIVE: 4.8 cm left adnexal cystic mass has significantly increased in size from prior study raising possibility of underlying cystic ovarian neoplasm. ABDOMEN and PELVIS: INTRAPERITONEAL SPACE: Interval development of moderate volume ascites. No free air. BONES/JOINTS: No suspicious lytic or blastic abnormality. SOFT TISSUES: Normal. No discrete abdominal or pelvic wall hernia. VASCULATURE: Normal. Abdominal aorta is non-dilated. LYMPH NODES: Interval enlargement of the retroperitoneal lymph nodes adjacent to the aorta and inferior vena cava raising possibility of metastatic disease. IMPRESSION: 1. Interval enlargement of complex cystic left adnexal mass which may represent ovarian neoplasm. 2. Interval development of moderate volume ascites. 3. Multiple thick-walled loops of large and small bowel consistent with inflammatory bowel disease. 4. Enlarging retroperitoneal lymph nodes which may represent metastatic disease. She was transferred to [facility] for gynecologic oncology surgery. Underwent diagnostic laparoscopy with peritoneal biopsy along with transverse loop diverting colostomy on 07/15/2023. Patient was found to have carcinomatosis with diffuse disease on right and left diaphragm. There were dense adhesions between liver immediately lateral to the falciform and diaphragm. Tumor infiltration of the falciform and freddy hepatis was observed. Pelvis was not visualized due to multiple loops of small bowel that were adherent to the pelvis. There was a plaque of tumor overlying the bladder peritoneum. Unable to visualize ovarian masses due to small bowel adherent to the sigmoid colon. Diffuse thickening of the paracolic gutter peritoneum was observed. There was thickened omentum without obvious implants including supracolic omentum with decreased mobility of transverse colon. 1000 cc of murky green ascites was aspirated. Biopsies were obtained of the peritoneal implants. 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 See comment. Identical morphologic features are noted within the present, peritoneal specimen that are found within the recent abdominal fluid cytology specimen, [id number]. Confirmatory immunohistochemistry was performed on the cytology specimen supporting a diagnosis of serous carcinoma. Per initial consultation here: Appetite okay--small meals. Taking Zofran regularly. Small amount reflux--TUMS prn. Ostomy working well. Pain improved. Current therapy: 1) Neoadjuvant chemotherapy with paclitaxel and carboplatin. Presents for ongoing oncologic management. Evaluation for cycle #3. Interim history: Quite a bit of fatigue for about first week following cycle. No unusual bleeding unexplained bruising. Appetite is doing well. She misses eating salads. No abdominal pain or bloating. Ostomy working well. 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 PAST MEDICAL HISTORY Diagnosis Date Arthritis Cataract Essential hypertension, benign 07/25/1994 Generalized anxiety disorder Ovarian cancer on left (HCC) PAST SURGICAL HISTORY Procedure Laterality Date COLOSTOMY 07/15/2023 transverse loop diverting HYSTEROSCOPY, DIAGNOSTIC (SEPARATE 02/22/2023 L'SCOPE DX W/WO BRUSHINGS/WASHINGS 07/15/2023 with peritoneal biopsy LIG/TRNSXJ FLP TUBE ABDL/VAG APPR UNI/BI 07/25/1981 Tubal ligation TONSILLECTOMY & ADENOIDECTOMY <AGE 12 07/25/1962 ALLERGIES Allergen Reactions Erythromycin GI Upset Penicillins Current Outpatient Medications Medication Sig oxybutynin ER (DITROPAN XL) 10 mg 24 hr tablet Take 10 mg by mouth once daily. pantoprazole DR (PROTONIX) 40 mg tablet Take 1 tablet by mouth once daily. lidocaine-prilocaine (EMLA) 2.5-2.5 % cream Apply 60 minutes prior to accessing port calcium carbonate (CALCIUM 600 ORAL) Take 1 tablet by mouth once daily. hydroCHLOROthiazide 12.5 mg tablet Take 12.5 mg by mouth once daily. ondansetron (ZOFRAN) 8 mg tablet Take 1 tablet by mouth every 8 hours as needed for nausea/vomiting. dexAMETHasone (DECADRON) 4 mg tablet Take 5 tablets 12 and 6 hours prior to chemotherapy treatment. Miscellaneous Medical Supply Colostomy supplies: - 1 box Coloplast Assura one piece drainable pouch # 35626 OR - 2 boxes Coloplast Providence wafer flat red #24897 - 1 box Coloplast Providence drainable pouch red # 52810 - 1 box Small barrier rings # 7805 - 1 tube stomahesive paste # 2650 - 1 bottle stomahesive powder # 89610 - 1 box Coloplast Elastic Barrier strips # 796270 - 1 box skin barrier prep wipes - 1 box adhesive removal wipes lisinopril (ZESTRIL) 20 mg tablet Take 1 tablet by mouth once daily. iv contrast (will be provided with radiology test) CT Chest W -Inject, intravenously, once for 1 dose.No IV access, insert saline lock prior to the beginning of sedation, infusion, injection of imaging exam. Discontinue saline lock post exam. If Pt. has a central line or IVAD, may access for administration according to line specific nursing protocol. Once exam is complete flush line and de-access according to line specific nursing protocol in the CT contrast administration guidelines link. iv contrast (will be provided with radiology test) CT ABD/PEL -Inject, intravenously, once for 1 dose.No IV access, insert saline lock prior to the beginning of sedation, infusion, injection of imaging exam. Discontinue saline lock post exam. If Pt. has a central line or IVAD, may access for administration according to line specific nursing protocol. Once exam is complete flush line and de-access according to line specific nursing protocol in the CT contrast administration guidelines link. enteric contrast (will be provided with radiology test) For CT ABD/PEL W IVCON Routine order Administer, As Directed One Time Only, via Oral, Rectal, both Oral and Rectal, Enteric Tube, Stoma or Indwelling Catheter, Enteric Contrast as designated per enteric contrast guidelines No current facility-administered medications for this visit. Social History Tobacco Use Smoking status: Former Years: 2 Types: Cigarettes Quit date: 07/25/1974 Years since quittin.2 Smokeless tobacco: Never Tobacco comments: Pt smoked an occ cigarette for 2 approx years Vaping Use Vaping Use: Never used Substance Use Topics Alcohol use: Yes Alcohol/week: 2.0 standard drinks of alcohol Types: 2 Glasses of Wine (5oz) per week Drug use: No Family history: Father-hypertension Maternal aunt--Breast cancer in her 60s. PGM--Breast cancer in her 80s. Mother-- of metastatic cancer at age 80. Sister--Larynx cancer. ROS: Constitutional: No fever. No drenching night sweats. Neuro: No recent PERAZA, vertigo, dizziness or imbalance. HEENT: No recent change in voice, vision or hearing. Resp: No cough, wheeze of hemoptysis. No shortness of breath at rest. No KEENE. CVS: No exertional chest pain, PND or orthopnea. No extremity swelling/edema. No symptoms of claudication. No painful or tender varicose veins. GI: See above. : No dysuria or gross hematuria. No symptoms of bladder outlet obstruction. Endo: No hot flashes. No polyuria or polydipsia. No heat or cold intolerance. Musculoskeletal: Diagnosed with RA 2014. Hip pain. Controlled with Plaquenil. Derm: No current rash. No history of jaundice. No diffuse pruritis. Heme: No unusual bleeding and unexplained bruising. Psych: Normal mood. PHYSICAL EXAM: Vitals: Blood pressure (P) 170/76, pulse 80, temperature 36.6 C (97.9 F), weight 53.8 kg (118 lb 9.7 oz), SpO2 99%. Well-appearing and in no acute distress. EYES: Sclerae are anicteric bilaterally. LYMPHATIC: There is no palpable cervical, supraclavicular, axillary adenopathy. RESPIRATORY: Inspiratory breath sounds are of normal intensity in all dominguez. No rales, wheezes or rhonchi. Expiratory phase is normal. CARDIOVASCULAR: Rhythm is regular. ABDOMEN: The abdomen is nondistended. Ostomy appears healthy. SKIN: No jaundice. LABS: Latest Ref Rng 10/07/2023 Protein, Total 6.3 - 8.0 g/dL 6.6 Albumin 3.9 - 4.9 g/dL 4.0 Calcium 8.5 - 10.2 mg/dL 9.6 Bilirubin, Total 0.2 - 1.3 mg/dL 0.5 Alkaline Phosphatase 34 - 123 U/L 259 (H) AST 13 - 35 U/L 42 (H) ALT 7 - 38 U/L 50 (H) Glucose 74 - 99 mg/dL 108 (H) BUN 7 - 21 mg/dL 33 (H) Creatinine 0.58 - 0.96 mg/dL 0.93 Sodium 136 - 144 mmol/L 139 Potassium 3.7 - 5.1 mmol/L 4.2 Chloride 97 - 105 mmol/L 104 CO2 22 - 30 mmol/L 27 Anion Gap 9 - 18 mmol/L 8 (L) eGFR >=60 mL/min/1.73m 65 WBC 3.70 - 11.00 k/uL 2.35 (L) (P) RBC 3.90 - 5.20 m/uL 2.43 (L) (P) Hemoglobin 11.5 - 15.5 g/dL 7.6 (L) (P) Hematocrit 36.0 - 46.0 % 23.2 (L) (P) MCV 80.0 - 100.0 fL 95.5 (P) MCH 26.0 - 34.0 pg 31.3 (P) MCHC 30.5 - 36.0 g/dL 32.8 (P) RDW-CV 11.5 - 15.0 % 20.1 (H) (P) Platelet Count 150 - 400 k/uL 18 (L) (P) MPV 9.0 - 12.7 fL 12.6 (P) ASSESSMENT/PLAN: (C56.2) Ovarian cancer on left (HCC) (primary encounter diagnosis) Assessment: -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 -Presented with partial large bowel obstruction status post transverse loop diverting colostomy. Not able to undergo upfront debulking surgery. -Tolerating carboplatin and paclitaxel very well overall. 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 -Reviewed CBC. Worsening anemia and thrombocytopenia with each cycle. No bleeding issues. -Reviewed CT results. Responding disease. Plan: -Scheduled to see Dr. Vilchis next week. -Cancel cycle #4 as scheduled on Tuesday due to low counts. She may recover by then but she thinks the post cycle fatigue would prevent her from making her appointment on Tuesday. -Check CBC for possible transfusion on Tuesday. -To ER over the weekend if any bleeding issues or unexplained bruising should occur. -Continue B complex vitamin. -Her children plan to talk with their PCP and carrot buncher about genetic counseling. Portions of this documentation were copied and pasted from previous office visit notes in order to provide a cohesive continuity of the history. The note has been reviewed and edited and updated as necessary. Hiram Mccoy DO documented in this encounter [facility] 10-07-2023 Nurse Note Est. Pt, discuss recent labs, poss tx next Tuesday Kelsy Storm LPN documented in this encounter [facility] 10-07-2023 Miscellaneous Notes Patient name and was confirmed at initiation of discussion. 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 Risk Assessment and Plan We reviewed that these genetic testing results confirm a diagnosis of BRIP1-associated Cancer Risk BRIP1-associated cancer risks Women with pathogenic/likely pathogenic variants in BRIP1 have an increased risk of ovarian cancer (6-13% lifetime risk versus 1-2% general population risk). At this time, there are no other defined cancer risks for men or women with BRIP1 pathogenic/likely pathogenic variants. However, there is limited evidence suggesting a potential increased risk of female breast cancer. Please keep in mind that the cancer risks are subject to change as more information is learned about the BRIP1 gene. BRIP1-associated Cancer Risk Management (NCCN Guidelines) Recommend bilateral salpingo-oophorectomy around age 45-50 or earlier based on family history. Reproductive Considerations For patients of reproductive age, advise about options for diagnosis and assisted reproduction including pre-implantation genetic diagnosis. Discussion should include known risks, limitations, and benefits of these technologies. In rare instances an individual may inherit pathogenic/likely pathogenic variants in both copies of the BRIP1 gene, leading to the condition Fanconi anemia (Complementation Group J or FANCJ). Fanconi anemia is a rare condition with a spectrum of different features that can include defects, growth delays, bone marrow failure, and increased risk for leukemia and head and neck cancers. The children of a parent with a BRIP1 pathogenic/likely pathogenic variant are at risk of inheriting Fanconi anemia only if the other parent is also a carrier of a BRIP1 pathogenic/likely pathogenic variant. It may be appropriate to screen the spouse/partner of an individual with a BRIP1 pathogenic/likely pathogenic variant for BRIP1 pathogenic/likely pathogenic variants. Patient was encouraged to pursue discussions with her care team. Patient was recommended to check in with Genetics annually to review any potential updates to BRIP1 cancer risks and management. First-degree relatives (siblings, children, and parents) of an individual with a BRIP1 pathogenic variant each have a 50% risk of also having this variant. Other relatives (grandchildren, nieces, nephews, aunts, uncles, grandparents, and cousins) could also be at risk of having this variant. The patient should share her genetic testing results with all at-risk relatives so they may pursue genetic counseling. Encouraged patient to call with any additional questions or concerns. The patient indicated verbal understanding of our conversation and agreed with our plan. Rudy Do MS, [facility] [place] Licensed, Certified Genetic Counselor [facility] CC: Dr. Nadine Costello INFORMATION TO BE MAILED TO PATIENT Copy of Encounter, Genetic Testing Results, Family letter for sharing genetic information documented in this encounter [facility] 10-04-2023 History of Present illness Narrative Radiology Service Progress Note PATIENT NAME: Gasper Reed DATE OF SERVICE: October 04, 2023 TIME: 3:03 PM PATIENT IDENTITY VERIFICATION COMPLETED USING TWO (2) IDENTIFIERS: Name and Date of confirmed by patient verbally. FALL SCREENING: Has the patient had 2 falls in the last year or 1 fall with injury or currently using an Ambulatory Assistive Device (Walker, Cane, Wheelchair, Crutches, etc.)? No PATIENT GENDER DATA: Female. status: : No status: NO. PATIENT RELEVANT IMPLANT DATA REVIEWED: Yes PATIENT PRESENTS WITH AN IMPLANTABLE OR ATTACHED HEAD RIGGER: No RADIOLOGY DEPARTMENT: CT; Exam(s) Completed: Chest Abdomen Pelvis PERIPHERAL IV DATA: power port accessed by Shipey SIGNED BY: RT Lexx(R) October 04, 2023 3:03 PM documented in this encounter [facility] 09-27-2023 Miscellaneous Notes Spoke to Rosa. Rosa has concerns about patient getting chemo and then seeing [facility] Onc two days later. Patient is scheduled for CT scans on 10/03 and an OV with Dr. Mccoy on 10/06. Per original note from Dr. Mccoy, Plan will be for 3 cycles then restaging imaging potentially followed by debulking surgery at that point, 4th cycle might not be needed. Rosa advised to keep scheduled appointments and to see what Dr. Mccoy advises at next OV. If 4th cycle is needed, maybe treatment could be scheduled to a different day? Rosa stated understanding and was agreeable to plan. Joy Bolaños, RN Daughter, Rosa called to speak to clinical regarding patient's schedule. Patient is scheduled for treatment on 10/10 - 2 days prior to appointment with specialist. Daughter is concerned that the treatment will deplete energy needed for appointment on 10/12. Please call Rosa and advise. documented in this encounter [facility] 09-21-2023 Miscellaneous Notes OV detailed report (AVS included) faxed to [facility] ostomy nurse. Victorina Rebolledo LPN I believe Victorina already wrote this order up. 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 Nutrition Intervention: -Consider meal prepping prior to treatment. - aim for 5-6 small/frequent meals - incorporate lean sources of protein/plant based proteins at meals - Stay well hydrated - sip on fluids throughout the day - start supplementation: Orgain, Fairlife milk, [employer] 2-3 times per day - Use GI soft diet for colostomy Nutrition Monitoring & Evaluation: PO intake Supplement tolerance Wt status Biochemical Markers Skin integrity Plan of care Patient Condition: Pt presents for nutrition counseling for ovarian cancer. Pt is currently being treated with carboplatin. Pt denies food allergies/intolerances. Nutrition Assessment: Patient is at risk from a nutritional standpoint. Patient's symptoms are: Early satiety Fatigue - has started pt Colostomy present - no excessive output reported. Diet History (24hr recall): Breakfast - sausage toast with butter Snack - 1/2 Ensure plus Lunch - Cheesy potato soup, shredded turkey Snack - none Dinner - meatloaf beef and turkey, mac and cheese, 1/2 can peaches Snack - 1/2 ensure plus, cookies Beverages - water Alcohol- Vitamins/Supplements - Topics addressed: ostomy - GI diet, adding protein, try Fairlife milk 08/23/23: Pt has had further weight loss. Fatigue improved 3-5th day of chemo - change in medication Cannot drink Ensure Orgain, Fairlife worked [employer] - did not like Colostomy - is alright as long as taking miralax Diet History (24 hr recall) Breakfast - toast with peanut butter Snack Lunch: Breakfast pizza Cake D: Chicken breast mashed potato, applesauce Kit Maritza Peanut butter crackers Naima: Coffee, water, tea, chocolate fairlife milk Tried cooked carrots and raw apple with peel. Would like to try salsa. Feels like she has dropped weight Stated weight at 115lbs 09/02/23 - Pt is improving slightly from a nutritional standpoint. Pt is keeping food journal which is helping her determine causes of symptoms. She has added a few foods in - salsa, orgain ONS, fairlife milk - without any issues. Discussed continuing nutrition intervention. Educational materials provided: Guidelines for a GI Soft Diet 09/20/23: Pt is stable from a nutritional standpoint. Continues to keep food journal and still adding in new foods. Weight is stable. Energy level is improved slightly per pt. Continue nutrition interventions. Will follow up in two months. Readiness to Learn: Cognitive ability: Alert and oriented Motivation to learn: Interested Family support: High - Very involved in pt care Instruction provided to: Patient Patient learns best by: Multiple Methods Factors affecting learning: None Physical limitations affecting learning: None Anthropometrics: HEIGHT/WEIGHT/BSA HEIGHT BODY SURFACE AREA WEIGHT 08/04/2023 5' 2 1.54 120 lb 2.4 oz 08/09/2023 1.54 120 lb 08/26/2023 1.54 120 lb 08/26/2023 1.54 120 lb 09/16/2023 1.54 119 lb 09/16/2023 1.54 119 lb Estimated body mass index is 21.77 kg/m as calculated from the following: Height as of 08/04/23: 157.5 cm (5' 2). Weight as of 09/16/23: 54 kg (119 lb). Resting Metabolic Rate: 1013 Weight Change: utd Allergies: Erythromycin and Penicillins Medications: Current Outpatient Medications Medication Sig Dispense Refill oxybutynin ER (DITROPAN XL) 10 mg 24 hr tablet Take 10 mg by mouth once daily. iv contrast (will be provided with radiology test) CT Chest W -Inject, intravenously, once for 1 dose.No IV access, insert saline lock prior to the beginning of sedation, infusion, injection of imaging exam. Discontinue saline lock post exam. If Pt. has a central line or IVAD, may access for administration according to line specific nursing protocol. Once exam is complete flush line and de-access according to line specific nursing protocol in the CT contrast administration guidelines link. 1 Each 0 iv contrast (will be provided with radiology test) CT ABD/PEL -Inject, intravenously, once for 1 dose.No IV access, insert saline lock prior to the beginning of sedation, infusion, injection of imaging exam. Discontinue saline lock post exam. If Pt. has a central line or IVAD, may access for administration according to line specific nursing protocol. Once exam is complete flush line and de-access according to line specific nursing protocol in the CT contrast administration guidelines link. 1 Each 0 enteric contrast (will be provided with radiology test) For CT ABD/PEL W IVCON Routine order Administer, As Directed One Time Only, via Oral, Rectal, both Oral and Rectal, Enteric Tube, Stoma or Indwelling Catheter, Enteric Contrast as designated per enteric contrast guidelines 1 Each 0 prochlorperazine (COMPAZINE) 5 mg tablet Take 1-2 tablets by mouth every 6 hours as needed. [address] (PROTONIX) 40 mg tablet Take 1 tablet by mouth once daily. 30 tablet 5 lidocaine-prilocaine (EMLA) 2.5-2.5 % cream Apply 60 minutes prior to accessing port 15 g 3 calcium carbonate (CALCIUM 600 ORAL) Take 1 tablet by mouth once daily. hydroCHLOROthiazide 12.5 mg tablet Take 12.5 mg by mouth two times a day. ondansetron (ZOFRAN) 8 mg tablet Take 1 tablet by mouth every 8 hours as needed for nausea/vomiting. 90 tablet 2 dexAMETHasone (DECADRON) 4 mg tablet Take 5 tablets 12 and 6 hours prior to chemotherapy treatment. 10 tablet 5 Miscellaneous Medical Supply Colostomy supplies: - 1 box Coloplast Assura one piece drainable pouch # 81393 OR - 2 boxes Coloplast Clay wafer flat red #21492 - 1 box Coloplast Providence drainable pouch red # 60366 - 1 box Small barrier rings # 7805 - 1 tube stomahesive paste # 2650 - 1 bottle stomahesive powder # 32064 - 1 box Coloplast Elastic Barrier strips # 891008 - 1 box skin barrier prep wipes - 1 box adhesive removal wipes 1 Each 11 lisinopril (ZESTRIL) 20 mg tablet Take 1 tablet by mouth two times a day. No current facility-administered medications for this visit. Facility-Administered Medications Ordered in Other Visits Medication Dose Route Frequency Provider Last Rate Last Admin PACLitaxel 269.5 mg in NaCl 0.9% 584.9167 mL (TAXOL) 175 mg/m2 (Treatment Plan Recorded) INTRAVENOUS ONCE Hiram Mccoy DO 269.5 mg at 09/20/23 0855 CARBOplatin 400 mg in NaCl 0.9% 315 mL (PARAPLATIN) 400 mg INTRAVENOUS ONCE Hiram Mccoy DO NaCl 0.9% iv infusion 500-999 mL/hr INTRAVENOUS PRN Hiram Mccoy DO diphenhydrAMINE 50 mg injection (BENADRYL) 50 mg INTRAVENOUS PRN Hiram Mccoy DO hydrocortisone sodium succinate (PF) 100 mg injection (Solu-CORTEF) 100 mg INTRAVENOUS PRN Hiram Mccoy DO EPINEPHrine HCl (PF) 1 mg/mL (1 mL) 0.3 mg injection 0.3 mg INTRAMUSCULAR PRN Hiram Mccoy DO Need for Follow up: two months Referred/Supervised by: Dr. Nadine BOX Billing Type: Re-assess/15 min 1 unit Billed Time: 15 minutes Signed by: Wendy Rivera RD, RADHA documented in this encounter [facility] 09-16-2023 History of Present illness Narrative Oncologic problem(s): 1) Serous carcinoma of the left ovary. HPI: The patient is a 72-year-old female with a past medical history significant for hypertension and rheumatoid arthritis. Presented to the ED at [facility] on 07/10/2023 with complaints of nausea and vomiting that started approximately 24 hours before presentation. This was accompanied with diarrhea. She been having intermittent abdominal pain for a couple months. Approximate 10 pound weight loss. Evidently underwent colonoscopy in March that demonstrated a constricted colon. CT A/P 07/10/2023: LOWER THORAX: Normal. Lung bases are clear. No cardiomegaly. No pericardial effusion. ABDOMEN: LIVER: Stable 12 mm lesion within hepatic segment 7 and 14 mm lesion within hepatic segment 3 suggestive of hemangiomata. PANCREAS: Normal. No focal cystic or solid mass. SPLEEN: Normal. Normal size without focal cystic or solid mass. ADRENALS: Normal. No nodules. KIDNEYS AND URETERS: Normal. Normal renal size and position. No hydronephrosis. STOMACH AND BOWEL: Multiple dilated thick-walled small bowel loops noted within the lower abdomen. There is fluid distention of the ascending and transverse colon. Prominent wall thickening of the sigmoid colon. PELVIS: APPENDIX: Appendix is visualized and normal in appearance. BLADDER: Normal. REPRODUCTIVE: 4.8 cm left adnexal cystic mass has significantly increased in size from prior study raising possibility of underlying cystic ovarian neoplasm. ABDOMEN and PELVIS: INTRAPERITONEAL SPACE: Interval development of moderate volume ascites. No free air. BONES/JOINTS: No suspicious lytic or blastic abnormality. SOFT TISSUES: Normal. No discrete abdominal or pelvic wall hernia. VASCULATURE: Normal. Abdominal aorta is non-dilated. LYMPH NODES: Interval enlargement of the retroperitoneal lymph nodes adjacent to the aorta and inferior vena cava raising possibility of metastatic disease. IMPRESSION: 1. Interval enlargement of complex cystic left adnexal mass which may represent ovarian neoplasm. 2. Interval development of moderate volume ascites. 3. Multiple thick-walled loops of large and small bowel consistent with inflammatory bowel disease. 4. Enlarging retroperitoneal lymph nodes which may represent metastatic disease. She was transferred to [facility] for gynecologic oncology surgery. Underwent diagnostic laparoscopy with peritoneal biopsy along with transverse loop diverting colostomy on 07/15/2023. Patient was found to have carcinomatosis with diffuse disease on right and left diaphragm. There were dense adhesions between liver immediately lateral to the falciform and diaphragm. Tumor infiltration of the falciform and freddy hepatis was observed. Pelvis was not visualized due to multiple loops of small bowel that were adherent to the pelvis. There was a plaque of tumor overlying the bladder peritoneum. Unable to visualize ovarian masses due to small bowel adherent to the sigmoid colon. Diffuse thickening of the paracolic gutter peritoneum was observed. There was thickened omentum without obvious implants including supracolic omentum with decreased mobility of transverse colon. 1000 cc of murky green ascites was aspirated. Biopsies were obtained of the peritoneal implants. 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 See comment. Identical morphologic features are noted within the present, peritoneal specimen that are found within the recent abdominal fluid cytology specimen, [id number]. Confirmatory immunohistochemistry was performed on the cytology specimen supporting a diagnosis of serous carcinoma. Per initial consultation here: Appetite okay--small meals. Taking Zofran regularly. Small amount reflux--TUMS prn. Ostomy working well. Pain improved. Current therapy: 1) Neoadjuvant chemotherapy with paclitaxel and carboplatin. Presents for ongoing oncologic management. Evaluation for cycle #3. Interim history: Tolerating treatment overall very well. Gets frequent nausea but relieved with Zofran. Ostomy has been working well but she does have frequent leaking. Occasional symptoms of tingling in the fingers but this is intermittent. PAST MEDICAL HISTORY Diagnosis Date Arthritis Cataract Essential hypertension, benign 07/25/1994 Generalized anxiety disorder Ovarian cancer on left (HCC) PAST SURGICAL HISTORY Procedure Laterality Date COLOSTOMY 07/15/2023 transverse loop diverting HYSTEROSCOPY, DIAGNOSTIC (SEPARATE 02/22/2023 L'SCOPE DX W/WO BRUSHINGS/WASHINGS 07/15/2023 with peritoneal biopsy LIG/TRNSXJ FLP TUBE ABDL/VAG APPR UNI/BI 07/25/1981 Tubal ligation TONSILLECTOMY & ADENOIDECTOMY <AGE 12 07/25/1962 ALLERGIES Allergen Reactions Erythromycin GI Upset Penicillins Current Outpatient Medications Medication Sig oxybutynin ER (DITROPAN XL) 10 mg 24 hr tablet Take 10 mg by mouth once daily. prochlorperazine (COMPAZINE) 5 mg tablet Take 1-2 tablets by mouth every 6 hours as needed. pantoprazole DR (PROTONIX) 40 mg tablet Take 1 tablet by mouth once daily. lidocaine-prilocaine (EMLA) 2.5-2.5 % cream Apply 60 minutes prior to accessing port calcium carbonate (CALCIUM 600 ORAL) Take 1 tablet by mouth once daily. hydroCHLOROthiazide 12.5 mg tablet Take 12.5 mg by mouth two times a day. ondansetron (ZOFRAN) 8 mg tablet Take 1 tablet by mouth every 8 hours as needed for nausea/vomiting. dexAMETHasone (DECADRON) 4 mg tablet Take 5 tablets 12 and 6 hours prior to chemotherapy treatment. Miscellaneous Medical Supply Colostomy supplies: - 1 box Coloplast Assura one piece drainable pouch # [id number] OR - 2 boxes Coloplast Providence wafer flat red #35028 - 1 box Coloplast Providence drainable pouch red # 21356 - 1 box Small barrier rings # 7805 - 1 tube stomahesive paste # 2650 - 1 bottle stomahesive powder # 55818 - 1 box Coloplast Elastic Barrier strips # [id number] - 1 box skin barrier prep wipes - 1 box adhesive removal wipes lisinopril (ZESTRIL) 20 mg tablet Take 1 tablet by mouth two times a day. No current facility-administered medications for this visit. Social History Tobacco Use Smoking status: Former Years: 2 Types: Cigarettes Quit date: 07/25/1974 Years since quittin.1 Smokeless tobacco: Never Tobacco comments: Pt smoked an occ cigarette for 2 approx years Vaping Use Vaping Use: Never used Substance Use Topics Alcohol use: Yes Alcohol/week: 2.0 standard drinks of alcohol Types: 2 Glasses of Wine (5oz) per week Drug use: No Family history: Father-hypertension Maternal aunt--Breast cancer in her 60s. PGM--Breast cancer in her 80s. Mother-- of metastatic cancer at age 80. Sister--Larynx cancer. ROS: Constitutional: No fever. No drenching night sweats. Normal appetite. No unexplained weight loss. No significant fatigue. Neuro: No recent PERAZA, vertigo, dizziness or imbalance. No symptoms of sensory neuropathy. HEENT: No recent change in voice, vision or hearing. Resp: No cough, wheeze of hemoptysis. No shortness of breath at rest. No KEENE. CVS: No exertional chest pain, PND or orthopnea. No extremity swelling/edema. No symptoms of claudication. No painful or tender varicose veins. GI: See above. : No dysuria or gross hematuria. No symptoms of bladder outlet obstruction. Endo: No hot flashes. No polyuria or polydipsia. No heat or cold intolerance. Musculoskeletal: Diagnosed with RA 2015. Hip pain. Controlled with Plaquenil. Derm: No current rash. No history of jaundice. No diffuse pruritis. Heme: No unusual bleeding and unexplained bruising. Psych: Normal mood. PHYSICAL EXAM: Vitals: Blood pressure 188/69, pulse 64, temperature 36.2 C (97.2 F), temperature source Temporal, weight 54 kg (119 lb), SpO2 100%. Well-appearing and in no acute distress. EYES: Sclerae are anicteric bilaterally. ENT: Oral mucosa is unremarkable. There is no sign of thrush or mucositis. LYMPHATIC: There is no palpable cervical, supraclavicular, axillary adenopathy. RESPIRATORY: Inspiratory breath sounds are of normal intensity in all dominguez. No rales, wheezes or rhonchi. Expiratory phase is normal. CARDIOVASCULAR: Rhythm is regular. ABDOMEN: The abdomen is nondistended. Trochar sites healing well. Ostomy appears healthy. Extremities: Symmetric bilateral lower extremity swelling.. SKIN: No jaundice or rash. No petechiae. 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 No focal motor weakness. DTRs are symmetric and normal. LABS: Component Latest Ref Rng & Units 09/16/2023 WBC 3.70 - 11.00 k/uL 2.60 (L) RBC 3.90 - 5.20 m/uL 2.76 (L) Hemoglobin 11.5 - 15.5 g/dL 8.5 (L) Hematocrit 36.0 - 46.0 % 25.3 (L) MCV 80.0 - 100.0 fL 91.7 MCH 26.0 - 34.0 pg 30.8 MCHC 30.5 - 36.0 g/dL 33.6 RDW-CV 11.5 - 15.0 % 19.3 (H) Platelet Count 150 - 400 k/uL 66 (L) MPV 9.0 - 12.7 fL 10.9 Neut% % 31.2 Abs Neut (ANC) 1.45 - 7.50 k/uL 0.81 (L) Lymph% % 44.6 Abs Lymph 1.00 - 4.00 k/uL 1.16 [place]% % 19.6 Abs [place] <0.87 k/uL 0.51 Eosin% % 3.8 Abs Eosin <0.46 k/uL 0.10 Baso% % 0.4 Abs Baso <0.11 k/uL <0.03 Immature Gran % % 0.4 IMMATURE GRANS (ABS) <0.10 k/uL <0.03 NRBC /100 WBC 0.0 Absolute nRBC <0.01 k/uL <0.01 DTYPE Auto ASSESSMENT/PLAN: (C56.2) Ovarian cancer on left (HCC) (primary encounter diagnosis) Assessment: -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 -Presented with partial large bowel obstruction status post transverse loop diverting colostomy. Not able to undergo upfront debulking surgery. -Tolerating carboplatin and paclitaxel very well overall. -Reviewed CBC. She is not at end of cycle. Counts not unexpected. Discussed neutropenic fever instructions. Plan: -CBC prior to treatment next week. -She will be scheduled for CT scans and a visit with Dr. Vilchis in about 2 weeks. -Plan to keep scheduled as is here. -Continue B complex vitamin. -Genetic testing pending. -Check CBC prior to treatment next week. -Rx for dexamethasone, Zofran and omeprazole sent. Portions of this documentation were copied and pasted from previous office visit notes in order to provide a cohesive continuity of the history. The note has been reviewed and edited and updated as necessary. I spent a total of 25 minutes on the date of the service which included preparing to see the patient, [id number] patient care, completing clinical documentation, obtaining and/or reviewing separately obtained history, performing a medically appropriate examination, counseling and educating the patient/family/caregiver, ordering medications, tests, or procedures, communicating with other HCPs (not separately reported), and communicating results to the patient/family/caregiver. Hiram Mccoy DO documented in this encounter [facility] 09-14-2023 History of Present illness Narrative [facility] Consultation Note Genetic Counselor: Rudy Do MS, [facility] Patient: Gasper Reed Patient Name and confirmed at initiation of visit. Appointment occurred with audiovisual communication through [employer] [facility] Visit. I have communicated my name and active licensure. The patient's identity and physical location were verified at the time of this visit. Either the patient or their legal financial foundations representative has been informed of the risks and benefits of -- and alternatives to -- treatment through a remote evaluation and consents to proceed with the evaluation remotely. HIGH LEVEL SUMMARY: The patient's personal history is potentially suggestive of a hereditary cancer syndrome. The patient provided informed consent for Multi-Cancer panel through [facility]. Results are expected in 1-2 weeks. IDENTIFICATION AND CHIEF COMPLAINT: Dr. Hiram Mccoy requested a consultation for genetic counseling and risk assessment for Gasper Reed, a 72 year old female, for discussion of her personal history of ovarian cancer. She presents to clinic today to discuss the possibility of a genetic predisposition to cancer, and to further clarify her risks, as well as her family members' risks for cancer. HISTORY OF PRESENT ILLNESS: In June of 2023, at the age of 72, Gasper Reed was diagnosed with high grade serous ovarian cancer. Treatment plan is for 3 cycles of chemotherapy (she has completed 2 cycles) followed by re-imaging with plans for surgery followed by 3 additional cycles of chemotherapy. PAST MEDICAL HISTORY Diagnosis Date Arthritis Cataract Essential hypertension, benign 07/25/1994 Generalized anxiety disorder Ovarian cancer on left (HCC) PAST SURGICAL HISTORY Procedure Laterality Date COLOSTOMY 07/15/2023 transverse loop diverting HYSTEROSCOPY, DIAGNOSTIC (SEPARATE 02/22/2023 L'SCOPE DX W/WO BRUSHINGS/WASHINGS 07/15/2023 with peritoneal biopsy LIG/TRNSXJ FLP TUBE ABDL/VAG APPR UNI/BI 07/25/1981 Tubal ligation TONSILLECTOMY & ADENOIDECTOMY <AGE 12 07/25/1962 SOCIAL HISTORY: Social History Tobacco Use Smoking status: Former Years: 2 Types: Cigarettes Quit date: 07/25/1974 Years since quittin.1 Smokeless tobacco: Never Tobacco comments: Pt smoked an occ cigarette for 2 approx years Vaping Use Vaping Use: Never used Substance Use Topics Alcohol use: Yes Alcohol/week: 2.0 standard drinks of alcohol Types: 2 Glasses of Wine (5oz) per week Drug use: No FAMILY HISTORY: We obtained a detailed, 4-generation family history. Significant diagnoses are listed below: FAMILY HISTORY Problem Relation Age of Onset Osteoporosis Mother smoker other (osteoarthritis) Mother Cancer Mother Coronary Artery Disease Father MA age 40's, age 60's; also smoked and alcoholic Mental illness Sister Renal Disease Sister Cancer Sister other (rheumatoid arthritis) Sister Coronary Artery Disease Brother MA age 49, smoker, recovering alcoholic Breast Cancer Paternal Grandmother late 70's Diabetes Paternal Grandfather Heart Paternal Grandfather Breast Cancer Maternal Aunt age 65 Ovarian cancer Maternal Aunt GENETIC COUNSELING RISK ASSESSMENT, DISCUSSION, AND SUGGESTED FOLLOW UP: We reviewed the natural history and genetic etiology of sporadic, familial and hereditary cancer syndromes. The patient's personal and family history is potentially suggestive of: a hereditary cancer syndrome The patient meets NCCN HBOC testing criteria based on her personal history of ovarian cancer. We discussed that identification of a hereditary cancer syndrome may help her care providers tailor her medical management. If a mutation is detected, the patient will be referred back to the referring provider and to any additional appropriate care providers to discuss the relevant options. Inheritance of hereditary cancer syndromes was discussed with the patient. If a mutation is not found in the patient, this will decrease the likelihood of a hereditary cancer syndrome as the explanation for the patient's personal and family history of cancer. However, it cannot completely rule out this possibility. Cancer surveillance options would be discussed for the patient according to the appropriate standard National Comprehensive Cancer Network and [place] Cancer [employer] guidelines, with consideration of their personal and family history risk factors. In this case, the patient will be referred back to their care providers for discussions of management. Based on this assessment of the patient's family and personal history, genetic testing is recommended. It was reviewed that if she were to have a hereditary cause for her ovarian cancer it would most likely be due to a BRCA1/2 mutation. It was also discussed that other genes beyond BRCA1/2 could account for the history and be tested along with BRCA1/2 via a multigene panel. The patient was offered Multi-Cancer panel through [facility]. After considering the risks, benefits, and limitations, the patient chose to pursue and provided informed consent for the following testing: Multi-Cancer panel through [facility]. The Multi-Cancer Panel includes AIP, ALK, APC, JUSTUS, AXIN2, BAP1, BARD1, BLM, BMPR1A, BRCA1, BRCA2, BRIP1, CDC73, CDH1, CDK4, CDKN1B, CDKN2A, CHEK2, CTNNA1, DICER1, EGFR, EPCAM, FH, FLCN, GREM1, HOXB13, KIT, LZTR1, MAX, MBD4, MEN1, MET, MITF, MLH1, MSH2, MSH3, MSH6, MUTYH, NF1, NF2, NTHL1, PALB2, PDGFRA, PMS2, POLD1, POLE, POT1, MIOWM4T, PTCH1, PTEN, RAD51C, RAD51D, RB1, RET, SDHA, SDHAF2, SDHB, SDHC, SDHD, SMAD4, SMARCA4, SMARCB1, SMARCE1, STK11, SUFU, NKLQ117, TP53, TSC1, TSC2, and VHL The Multi-Cancer panel looks at genes associated with cancers of the breast, gynecologic tract (ovarian, uterine/endometrial), gastrointestinal system (colorectal, gastric, pancreatic), endocrine glands (thyroid, parathyroid, pituitary, adrenal glands), genitourinary tract (renal/urinary tract, prostate), skin (melanoma, basal cell carcinoma), and brain/nervous system. We discussed that an NGS panel can rarely result in an unexpected finding which may or may not be related to the presenting phenotype. We discussed that [employer] may contact the patient by text or email regarding billing. The patient should watch for this communication and respond promptly. The patient should contact [employer]: turn off the lights directly with any billing questions (ph. [phone]). Per the patient's request, I will contact her by telephone to discuss these results. A follow up genetic counseling visit will be scheduled if requested. The patient was seen for a total of 35 minutes, greater than 50% of which was spent [id number]-[id number] counseling. This plan is being carried out under the oversight of Dr. Stephanie Holman. This note will also be sent to the referring provider via the electronic medical record. Rudy Do, MS, [facility] Licensed, Certified Genetic Counselor [facility] CC: Dr. Hiram Mensah documented in this encounter [facility] 09-02-2023 History of Present illness Narrative Oncology Nutrition Therapy Reassessment RECOMMENDED MALNUTRITION DIAGNOSIS: SEVERE PROTEIN-CALORIE MALNUTRITION In the context of Chronic Illness or Injury based on: Unintentional Weight Loss: >10% in 6 months Insufficient Energy Intake: Less than 75% energy intake compared to estimated needs for greater than or equal to 1 month Nutriscore: No Data Recorded Nutrition Diagnosis: Malnutrition, related to, chronic illness (cancer) and surgery, as evidenced by weight loss, poor oral intake. Nutrition Intervention: -Consider meal prepping prior to treatment. - aim for 5-6 small/frequent meals - incorporate lean sources of protein/plant based proteins at meals - Stay well hydrated - sip on fluids throughout the day - start supplementation: Orgain, Fairlife milk, [employer] 2-3 times per day - Use GI soft diet for colostomy Nutrition Monitoring & Evaluation: PO intake Supplement tolerance Wt status Biochemical Markers Skin integrity Plan of care Patient Condition: Pt presents for nutrition counseling for ovarian cancer. Pt is currently being treated with carboplatin. Pt denies food allergies/intolerances. Nutrition Assessment: Patient is at risk from a nutritional standpoint. Patient's symptoms are: Early satiety Fatigue - has started pt Colostomy present - no excessive output reported. Diet History (24hr recall): Breakfast - sausage toast with butter Snack - 1/2 Ensure plus Lunch - Cheesy potato soup, shredded turkey Snack - none Dinner - meatloaf beef and turkey, mac and cheese, 1/2 can peaches Snack - 1/2 ensure plus, cookies Beverages - water Alcohol- Vitamins/Supplements - Topics addressed: ostomy - GI diet, adding protein, try Fairlife milk 08/23/23: Pt has had further weight loss. Fatigue improved 3-5th day of chemo - change in medication Cannot drink Ensure Orgain, Fairlife worked [employer] - did not like Colostomy - is alright as long as taking miralax Diet History (24 hr recall) Breakfast - toast with peanut butter Snack Lunch: Breakfast pizza Cake D: Chicken breast mashed potato, applesauce Kit Maritza Peanut butter crackers Naima: Coffee, water, tea, chocolate fairlife milk Tried cooked carrots and raw apple with peel. Would like to try salsa. Feels like she has dropped weight Stated weight at 115lbs 09/02/23 - Pt is improving slightly from a nutritional standpoint. Pt is keeping food journal which is helping her determine causes of symptoms. She has added a few foods in - salsa, orgain ONS, fairlife milk - without any issues. Discussed continuing nutrition intervention. Educational materials provided: Guidelines for a GI Soft Diet Readiness to Learn: Cognitive ability: Alert and oriented Motivation to learn: Interested Family support: High - Very involved in pt care Instruction provided to: Patient Patient learns best by: Multiple Methods Factors affecting learning: None Physical limitations affecting learning: None Anthropometrics: HEIGHT/WEIGHT/BSA HEIGHT BODY SURFACE AREA WEIGHT 08/15/2008 147 lb 07/10/2023 5' 3 1.49 110 lb 3.7 oz 07/27/2023 5' 2 1.58 126 lb 07/28/2023 5' 2 1.57 124 lb 08/04/2023 5' 2 1.54 120 lb 2.4 oz 08/09/2023 1.54 120 lb 08/26/2023 1.54 120 lb 08/26/2023 1.54 120 lb Estimated body mass index is 21.95 kg/m as calculated from the following: Height as of 08/04/23: 157.5 cm (5' 2). Weight as of 08/26/23: 54.4 kg (120 lb). Resting Metabolic Rate: 1013 Weight Change: utd Allergies: Erythromycin and Penicillins Medications: Current Outpatient Medications Medication Sig Dispense Refill prochlorperazine (COMPAZINE) 5 mg tablet Take 1-2 tablets by mouth every 6 hours as needed. [address] (PROTONIX) 40 mg tablet Take 1 tablet by mouth once daily. 30 tablet 5 lidocaine-prilocaine (EMLA) 2.5-2.5 % cream Apply 60 minutes prior to accessing port 15 g 3 calcium carbonate (CALCIUM 600 ORAL) Take 1 tablet by mouth once daily. hydroCHLOROthiazide 12.5 mg tablet Take 12.5 mg by mouth once daily. ondansetron (ZOFRAN) 8 mg tablet Take 1 tablet by mouth every 8 hours as needed for nausea/vomiting. 90 tablet 2 dexAMETHasone (DECADRON) 4 mg tablet Take 5 tablets 12 and 6 hours prior to chemotherapy treatment. 10 tablet 5 Miscellaneous Medical Supply Colostomy supplies: - 1 box Coloplast Assura one piece drainable pouch # [id number] OR - 2 boxes Coloplast Clay wafer flat red #12497 - 1 box Coloplast Providence drainable pouch red # 72867 - 1 box Small barrier rings # 7805 - 1 tube stomahesive paste # 2650 - 1 bottle stomahesive powder # 12178 - 1 box Coloplast Elastic Barrier strips # [id number] - 1 box skin barrier prep wipes - 1 box adhesive removal wipes 1 Each 11 lisinopril (ZESTRIL) 20 mg tablet Take 1 tablet by mouth daily after breakfast. No current facility-administered medications for this visit. Need for Follow up: one week Referred/Supervised by: Dr. Nadine BOX Billing Type: Re-assess/15 min 2 units Billed Time: 30 minutes Signed by: Wendy Rivera RD, LD documented in this encounter [facility] 08-30-2023 Miscellaneous Notes Patient has been identified by name and date of : Yes Requested Prescriptions Pending Prescriptions Disp Refills prochlorperazine (COMPAZINE) 5 mg tablet 60 tablet 0 Sig: Take 2 tablets by mouth every 6 hours as needed for up to 14 days. RX INSTRUCTIONS: Patient aware RX will be sent to pharmacy. No need to notify patient. Olga Campa RN documented in this encounter [facility] 08-26-2023 Nurse Note Est. Pt, discuss recent labs, tx Tuesday Kelsy Storm LPN documented in this encounter [facility] 08-26-2023 History of Present illness Narrative Chief Complaint Patient presents with: Established Patient HPI: Gasper Reed is a 72 year old female who presents here today for evaluation for treatment on Tuesday. Per Dr. Mccoy's previous note: H/o hypertension and rheumatoid arthritis. Presented to the ED at [facility] on 07/10/2023 with complaints of nausea and vomiting that started approximately 24 hours before presentation. This was accompanied with diarrhea. She been having intermittent abdominal pain for a couple months. Approximate 10 pound weight loss. Evidently underwent colonoscopy in March that demonstrated a constricted colon. CT A/P 07/10/2023: LOWER THORAX: Normal. Lung bases are clear. No cardiomegaly. No pericardial effusion. ABDOMEN: LIVER: Stable 12 mm lesion within hepatic segment 7 and 14 mm lesion within hepatic segment 3 suggestive of hemangiomata. PANCREAS: Normal. No focal cystic or solid mass. SPLEEN: Normal. Normal size without focal cystic or solid mass. ADRENALS: Normal. No nodules. KIDNEYS AND URETERS: Normal. Normal renal size and position. No hydronephrosis. STOMACH AND BOWEL: Multiple dilated thick-walled small bowel loops noted within the lower abdomen. There is fluid distention of the ascending and transverse colon. Prominent wall thickening of the sigmoid colon. PELVIS: APPENDIX: Appendix is visualized and normal in appearance. BLADDER: Normal. REPRODUCTIVE: 4.8 cm left adnexal cystic mass has significantly increased in size from prior study raising possibility of underlying cystic ovarian neoplasm. ABDOMEN and PELVIS: INTRAPERITONEAL SPACE: Interval development of moderate volume ascites. No free air. BONES/JOINTS: No suspicious lytic or blastic abnormality. SOFT TISSUES: Normal. No discrete abdominal or pelvic wall hernia. VASCULATURE: Normal. Abdominal aorta is non-dilated. LYMPH NODES: Interval enlargement of the retroperitoneal lymph nodes adjacent to the aorta and inferior vena cava raising possibility of metastatic disease. CT/Abdomen/Pelvis WITH Contrast IMPRESSION: 1. Interval enlargement of complex cystic left adnexal mass which may represent ovarian neoplasm. 2. Interval development of moderate volume ascites. 3. Multiple thick-walled loops of large and small bowel consistent with inflammatory bowel disease. 4. Enlarging retroperitoneal lymph nodes which may represent metastatic disease. She was transferred to [facility] for gynecologic oncology surgery. Underwent diagnostic laparoscopy with peritoneal biopsy along with transverse loop diverting colostomy on 07/15/2023. Patient was found to have carcinomatosis with diffuse disease on right and left diaphragm. There were dense adhesions between liver immediately lateral to the falciform and diaphragm. Tumor infiltration of the falciform and freddy hepatis was observed. Pelvis was not visualized due to multiple loops of small bowel that were adherent to the pelvis. There was a plaque of tumor overlying the bladder peritoneum. Unable to visualize ovarian masses due to small bowel adherent to the sigmoid colon. Diffuse thickening of the paracolic gutter peritoneum was observed. There was thickened omentum without obvious implants including supracolic omentum with decreased mobility of transverse colon. 1000 cc of murky green ascites was aspirated. Biopsies were obtained of the peritoneal implants. 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 See comment. Identical morphologic features are noted within the present, peritoneal specimen that are found within the recent abdominal fluid cytology specimen, [id number]. Confirmatory immunohistochemistry was performed on the cytology specimen supporting a diagnosis of serous carcinoma. Current therapy:Carbo/Taxol Began 08/09/23 Pt. here today with daughter. +nausea with first cycle. Appetite:Pretty good right now. Wt. down 6# since 07/27/23. Energy level:Ok today. down for a few days after treatment. Denies fevers. Mouth:denies sores Resp:occ. cough at night, denies sob Cardiac:denies chest pain/palpitations GI:denies abd pain, occ. 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 Past medical history, appointments, medications, allergies reviewed. No changes. EXAM: BP (P) 158/87 Pulse 107 Temp 36.7 C (98 F) Wt 54.4 kg (120 lb) SpO2 97% BMI 21.95 kg/m APPEARANCE Well/thin appearing, alert, in no acute distress, well-hydrated HEART RRR with normal S1 and S2, no murmurs LUNG clear to auscultation LYMPH NODES No cervical lymphadenopathy, No supraclavicular lymphadenopathy, and No axillary lymphadenopathy. ABDOMEN ostomy, bowel sounds normoactive, soft, non-tender, non-distended EXTREMITIES No edema NEURO Awake, alert and oriented x 3, Normal gait, and No involuntary motions. SKIN Skin color, texture, turgor normal, no suspicious rashes or lesions LABS: Component Latest Ref Rng & Units 07/27/2023 08/09/2023 08/26/2023 WBC 3.70 - 11.00 k/uL 8.30 6.45 5.42 RBC 3.90 - 5.20 m/uL 3.48 (L) 3.57 (L) 3.11 (L) Hemoglobin 11.5 - 15.5 g/dL 10.2 (L) 10.2 (L) 9.1 (L) Hematocrit 36.0 - 46.0 % 32.8 (L) 31.9 (L) 28.5 (L) MCV 80.0 - 100.0 fL 94.3 89.4 91.6 MCH 26.0 - 34.0 pg 29.3 28.6 29.3 MCHC 30.5 - 36.0 g/dL 31.1 32.0 31.9 RDW-CV 11.5 - 15.0 % 14.6 14.5 16.1 (H) Platelet Count 150 - 400 k/uL 335 391 163 MPV 9.0 - 12.7 fL 11.1 10.0 10.7 Neut% % 77.1 92.2 59.8 Abs Neut (ANC) 1.45 - 7.50 k/uL 6.41 5.95 3.24 Lymph% % 11.6 6.8 24.5 Abs Lymph 1.00 - 4.00 k/uL 0.96 (L) 0.44 (L) 1.33 [place]% % 8.6 0.3 10.1 Abs [place] <0.87 k/uL 0.71 <0.03 0.55 Eosin% % 1.8 0.0 3.5 Abs Eosin <0.46 k/uL 0.15 <0.03 0.19 Baso% % 0.4 0.2 0.6 Abs Baso <0.11 k/uL 0.03 <0.03 0.03 Immature Gran % % 0.5 0.5 1.5 IMMATURE GRANS (ABS) <0.10 k/uL 0.04 0.03 0.08 NRBC /100 WBC 0.0 0.0 0.0 Absolute nRBC <0.01 k/uL <0.01 <0.01 <0.01 DTYPE Auto Auto Auto CMP/CA125: Pending ASSESSMENT/PLAN: 1. Ovarian cancer on left (HCC) - ICD9: 183.0, ICD10: C56.2 Serous carcinoma of the left ovary. 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 Recent partial large bowel obstruction status post transverse loop diverting colostomy. Not able to undergo upfront debulking surgery. Neoadjuvant treatment with carboplatin and paclitaxel. Plan will be for 3 cycles then restaging imaging potentially followed by debulking surgery at that point. - Overall tolerated cycle #1 overall well except for nausea-taking anti-emetic consistently now with relief. - Reviewed CBC with pt. - CMP/CA125 pending. - Monitor CA125. - Proceed as scheduled on Tuesday for #2 carbo/taxol pending all labs. - Follow up as scheduled. - Pt. aware to call office with any questions/concerns. The patient indicates understanding of these issues and agrees with the plan. All documentation from previous visit of 07/27/23-Dr. Mccoy was copied and pasted, documentation has been reviewed and edited as necessary for today's visit. Fadi Ramirez APRN.SYLVIE documented in this encounter [facility] 08-21-2023 History of Present illness Narrative No show for virtual visit. documented in this encounter [facility] 07-10-2023 History of Past i llness Narrative Problem Noted Date Diagnosed Date Resolved Date Ovarian mass 07/10/2023 07/31/2023 Overview: - patient presenting to outside ED for nausea/vomiting and abdominal pain and then had a CT abd/pelvis which showed: 1. 4.8 cm left adnexal cystic mass has significantly increased in size from prior study raising possibility for underlying malignancy 2. interval enlargement of retroperitoneal lymph nodes adjacent to the aorta and inferior vena cava raising possibility of metastatic disease 3. Interval development of moderate volume ascites 4.Multiple thick-walled loops of large and small bowel consistent with inflammatory bowel disease - CT Chest 07/11 without evidence of metastatic disease - Tumor markers this admission as follows: - CA 125 377 - CEA 1.4 - CA 19-9 18.4 - S/p diagnostic laparoscopy, peritoneal biopsies, diverting loop colostomy formation. Stage IIIC serous carcinoma. - Plan for outpatient chemotherapy - Plan for ostomy teaching prior to discharge - anticipate Thursday 07/19. documented as of this encounter (statuses as of 08/21/2023) [facility]12-17-2023 History of Past illness Narrative* Problem Noted Date Diagnosed Date Resolved Date Ovarian mass 07/10/2023 07/31/2023 Overview: - patient presenting to outside ED for nausea/vomiting and abdominal pain and then had a CT abd/pelvis which showed: 1. 4.8 cm left adnexal cystic mass has significantly increased in size from prior study raising possibility for underlying malignancy 2. interval enlargement of retroperitoneal lymph nodes adjacent to the aorta and inferior vena cava raising possibility of metastatic disease 3. Interval development of moderate volume ascites 4.Multiple thick-walled loops of large and small bowel consistent with inflammatory bowel disease - CT Chest 07/11 without evidence of metastatic disease - Tumor markers this admission as follows: - CA 125 377 - CEA 1.4 - CA 19-9 18.4 - S/p diagnostic laparoscopy, peritoneal biopsies, diverting loop colostomy formation. Stage IIIC serous carcinoma. - Plan for outpatient chemotherapy - Plan for ostomy teaching prior to discharge - anticipate Thursday 07/19. documented as of this encounter (statuses as of 08/26/2023) [facility] History of Past illness Narrative* Problem Noted Date Diagnosed Date Resolved Date Ovarian mass 07/10/2023 07/31/2023 Overview: - patient presenting to outside ED for nausea/vomiting and abdominal pain and then had a CT abd/pelvis which showed: 1. 4.8 cm left adnexal cystic mass has significantly increased in size from prior study raising possibility for underlying malignancy 2. interval enlargement of retroperitoneal lymph nodes adjacent to the aorta and inferior vena cava raising possibility of metastatic disease 3. Interval development of moderate volume ascites 4.Multiple thick-walled loops of large and small bowel consistent with inflammatory bowel disease - CT Chest 07/11 without evidence of metastatic disease - Tumor markers this admission as follows: - CA 125 377 - CEA 1.4 - CA 19-9 18.4 - S/p diagnostic laparoscopy, peritoneal biopsies, diverting loop colostomy formation. Stage IIIC serous carcinoma. - Plan for outpatient chemotherapy - Plan for ostomy teaching prior to discharge - anticipate Thursday 07/19. documented as of this encounter (statuses as of 08/26/2023) [facility] History of Past illness Narrative* Problem Noted Date Diagnosed Date Resolved Date Ovarian mass 07/10/2023 07/31/2023 Overview: - patient presenting to outside ED for nausea/vomiting and abdominal pain and then had a CT abd/pelvis which showed: 1. 4.8 cm left adnexal cystic mass has significantly increased in size from prior study raising possibility for underlying malignancy 2. interval enlargement of retroperitoneal lymph nodes adjacent to the aorta and inferior vena cava raising possibility of metastatic disease 3. Interval development of moderate volume ascites 4.Multiple thick-walled loops of large and small bowel consistent with inflammatory bowel disease - CT Chest 07/11 without evidence of metastatic disease - Tumor markers this admission as follows: - CA 125 377 - CEA 1.4 - CA 19-9 18.4 - S/p diagnostic laparoscopy, peritoneal biopsies, diverting loop colostomy formation. Stage IIIC serous carcinoma. - Plan for outpatient chemotherapy - Plan for ostomy teaching prior to discharge - anticipate Thursday 07/19. documented as of this encounter (statuses as of 08/30/2023) [facility] History of Past illness Narrative* Problem Noted Date Diagnosed Date Resolved Date Ovarian mass 07/10/2023 07/31/2023 Overview: - patient presenting to outside ED for nausea/vomiting and abdominal pain and then had a CT abd/pelvis which showed: 1. 4.8 cm left adnexal cystic mass has significantly increased in size from prior study raising possibility for underlying malignancy 2. interval enlargement of retroperitoneal lymph nodes adjacent to the aorta and inferior vena cava raising possibility of metastatic disease 3. Interval development of moderate volume ascites 4.Multiple thick-walled loops of large and small bowel consistent with inflammatory bowel disease - CT Chest 07/11 without evidence of metastatic disease - Tumor markers this admission as follows: - CA 125 377 - CEA 1.4 - CA 19-9 18.4 - S/p diagnostic laparoscopy, peritoneal biopsies, diverting loop colostomy formation. Stage IIIC serous carcinoma. - Plan for outpatient chemotherapy - Plan for ostomy teaching prior to discharge - anticipate Thursday 07/19. documented as of this encounter (statuses as of 08/30/2023) [facility] History of Past illness Narrative* Problem Noted Date Diagnosed Date Resolved Date Ovarian mass 07/10/2023 07/31/2023 Overview: - patient presenting to outside ED for nausea/vomiting and abdominal pain and then had a CT abd/pelvis which showed: 1. 4.8 cm left adnexal cystic mass has significantly increased in size from prior study raising possibility for underlying malignancy 2. interval enlargement of retroperitoneal lymph nodes adjacent to the aorta and inferior vena cava raising possibility of metastatic disease 3. Interval development of moderate volume ascites 4.Multiple thick-walled loops of large and small bowel consistent with inflammatory bowel disease - CT Chest 07/11 without evidence of metastatic disease - Tumor markers this admission as follows: - CA 125 377 - CEA 1.4 - CA 19-9 18.4 - S/p diagnostic laparoscopy, peritoneal biopsies, diverting loop colostomy formation. Stage IIIC serous carcinoma. - Plan for outpatient chemotherapy - Plan for ostomy teaching prior to discharge - anticipate Thursday 07/19. documented as of this encounter (statuses as of 09/05/2023) [facility] History of Past illness Narrative* Problem Noted Date Diagnosed Date Resolved Date Ovarian mass 07/10/2023 07/31/2023 Overview: - patient presenting to outside ED for nausea/vomiting and abdominal pain and then had a CT abd/pelvis which showed: 1. 4.8 cm left adnexal cystic mass has significantly increased in size from prior study raising possibility for underlying malignancy 2. interval enlargement of retroperitoneal lymph nodes adjacent to the aorta and inferior vena cava raising possibility of metastatic disease 3. Interval development of moderate volume ascites 4.Multiple thick-walled loops of large and small bowel consistent with inflammatory bowel disease - CT Chest 07/11 without evidence of metastatic disease - Tumor markers this admission as follows: - CA 125 377 - CEA 1.4 - CA 19-9 18.4 - S/p diagnostic laparoscopy, peritoneal biopsies, diverting loop colostomy formation. Stage IIIC serous carcinoma. - Plan for outpatient chemotherapy - Plan for ostomy teaching prior to discharge - anticipate Thursday 07/19. documented as of this encounter (statuses as of 09/14/2023) [facility] History of Past illness Narrative* Problem Noted Date Diagnosed Date Resolved Date Ovarian mass 07/10/2023 07/31/2023 Overview: - patient presenting to outside ED for nausea/vomiting and abdominal pain and then had a CT abd/pelvis which showed: 1. 4.8 cm left adnexal cystic mass has significantly increased in size from prior study raising possibility for underlying malignancy 2. interval enlargement of retroperitoneal lymph nodes adjacent to the aorta and inferior vena cava raising possibility of metastatic disease 3. Interval development of moderate volume ascites 4.Multiple thick-walled loops of large and small bowel consistent with inflammatory bowel disease - CT Chest 07/11 without evidence of metastatic disease - Tumor markers this admission as follows: - CA 125 377 - CEA 1.4 - CA 19-9 18.4 - S/p diagnostic laparoscopy, peritoneal biopsies, diverting loop colostomy formation. Stage IIIC serous carcinoma. - Plan for outpatient chemotherapy - Plan for ostomy teaching prior to discharge - anticipate Thursday 07/19. documented as of this encounter (statuses as of 09/16/2023) [facility] History of Past illness Narrative* Problem Noted Date Diagnosed Date Resolved Date Ovarian mass 07/10/2023 07/31/2023 Overview: - patient presenting to outside ED for nausea/vomiting and abdominal pain and then had a CT abd/pelvis which showed: 1. 4.8 cm left adnexal cystic mass has significantly increased in size from prior study raising possibility for underlying malignancy 2. interval enlargement of retroperitoneal lymph nodes adjacent to the aorta and inferior vena cava raising possibility of metastatic disease 3. Interval development of moderate volume ascites 4.Multiple thick-walled loops of large and small bowel consistent with inflammatory bowel disease - CT Chest 07/11 without evidence of metastatic disease - Tumor markers this admission as follows: - CA 125 377 - CEA 1.4 - CA 19-9 18.4 - S/p diagnostic laparoscopy, peritoneal biopsies, diverting loop colostomy formation. Stage IIIC serous carcinoma. - Plan for outpatient chemotherapy - Plan for ostomy teaching prior to discharge - anticipate Thursday 07/19. documented as of this encounter (statuses as of 09/16/2023) [facility] History of Past illness Narrative* Problem Noted Date Diagnosed Date Resolved Date Ovarian mass 07/10/2023 07/31/2023 Overview: - patient presenting to outside ED for nausea/vomiting and abdominal pain and then had a CT abd/pelvis which showed: 1. 4.8 cm left adnexal cystic mass has significantly increased in size from prior study raising possibility for underlying malignancy 2. interval enlargement of retroperitoneal lymph nodes adjacent to the aorta and inferior vena cava raising possibility of metastatic disease 3. Interval development of moderate volume ascites 4.Multiple thick-walled loops of large and small bowel consistent with inflammatory bowel disease - CT Chest 07/11 without evidence of metastatic disease - Tumor markers this admission as follows: - CA 125 377 - CEA 1.4 - CA 19-9 18.4 - S/p diagnostic laparoscopy, peritoneal biopsies, diverting loop colostomy formation. Stage IIIC serous carcinoma. - Plan for outpatient chemotherapy - Plan for ostomy teaching prior to discharge - anticipate Thursday 07/19. documented as of this encounter (statuses as of 09/20/2023) [facility] History of Past illness Narrative* Problem Noted Date Diagnosed Date Resolved Date Ovarian mass 07/10/2023 07/31/2023 Overview: - patient presenting to outside ED for nausea/vomiting and abdominal pain and then had a CT abd/pelvis which showed: 1. 4.8 cm left adnexal cystic mass has significantly increased in size from prior study raising possibility for underlying malignancy 2. interval enlargement of retroperitoneal lymph nodes adjacent to the aorta and inferior vena cava raising possibility of metastatic disease 3. Interval development of moderate volume ascites 4.Multiple thick-walled loops of large and small bowel consistent with inflammatory bowel disease - CT Chest 07/11 without evidence of metastatic disease - Tumor markers this admission as follows: - CA 125 377 - CEA 1.4 - CA 19-9 18.4 - S/p diagnostic laparoscopy, peritoneal biopsies, diverting loop colostomy formation. Stage IIIC serous carcinoma. - Plan for outpatient chemotherapy - Plan for ostomy teaching prior to discharge - anticipate Thursday 07/19. documented as of this encounter (statuses as of 09/21/2023) [facility] History of Past illness Narrative* Problem Noted Date Diagnosed Date Resolved Date Ovarian mass 07/10/2023 07/31/2023 Overview: - patient presenting to outside ED for nausea/vomiting and abdominal pain and then had a CT abd/pelvis which showed: 1. 4.8 cm left adnexal cystic mass has significantly increased in size from prior study raising possibility for underlying malignancy 2. interval enlargement of retroperitoneal lymph nodes adjacent to the aorta and inferior vena cava raising possibility of metastatic disease 3. Interval development of moderate volume ascites 4.Multiple thick-walled loops of large and small bowel consistent with inflammatory bowel disease - CT Chest 07/11 without evidence of metastatic disease - Tumor markers this admission as follows: - CA 125 377 - CEA 1.4 - CA 19-9 18.4 - S/p diagnostic laparoscopy, peritoneal biopsies, diverting loop colostomy formation. Stage IIIC serous carcinoma. - Plan for outpatient chemotherapy - Plan for ostomy teaching prior to discharge - anticipate Thursday 07/19. documented as of this encounter (statuses as of 09/21/2023) [facility] History of Past illness Narrative* Problem Noted Date Diagnosed Date Resolved Date Ovarian mass 07/10/2023 07/31/2023 Overview: - patient presenting to outside ED for nausea/vomiting and abdominal pain and then had a CT abd/pelvis which showed: 1. 4.8 cm left adnexal cystic mass has significantly increased in size from prior study raising possibility for underlying malignancy 2. interval enlargement of retroperitoneal lymph nodes adjacent to the aorta and inferior vena cava raising possibility of metastatic disease 3. Interval development of moderate volume ascites 4.Multiple thick-walled loops of large and small bowel consistent with inflammatory bowel disease - CT Chest 07/11 without evidence of metastatic disease - Tumor markers this admission as follows: - CA 125 377 - CEA 1.4 - CA 19-9 18.4 - S/p diagnostic laparoscopy, peritoneal biopsies, diverting loop colostomy formation. Stage IIIC serous carcinoma. - Plan for outpatient chemotherapy - Plan for ostomy teaching prior to discharge - anticipate Thursday 07/19. documented as of this encounter (statuses as of 09/27/2023) [facility] History of Past illness Narrative* Problem Noted Date Diagnosed Date Resolved Date Ovarian mass 07/10/2023 07/31/2023 Overview: - patient presenting to outside ED for nausea/vomiting and abdominal pain and then had a CT abd/pelvis which showed: 1. 4.8 cm left adnexal cystic mass has significantly increased in size from prior study raising possibility for underlying malignancy 2. interval enlargement of retroperitoneal lymph nodes adjacent to the aorta and inferior vena cava raising possibility of metastatic disease 3. Interval development of moderate volume ascites 4.Multiple thick-walled loops of large and small bowel consistent with inflammatory bowel disease - CT Chest 07/11 without evidence of metastatic disease - Tumor markers this admission as follows: - CA 125 377 - CEA 1.4 - CA 19-9 18.4 - S/p diagnostic laparoscopy, peritoneal biopsies, diverting loop colostomy formation. Stage IIIC serous carcinoma. - Plan for outpatient chemotherapy - Plan for ostomy teaching prior to discharge - anticipate Thursday 07/19. documented as of this encounter (statuses as of 10/04/2023) [facility] History of Past illness Narrative* Problem Noted Date Diagnosed Date Resolved Date Ovarian mass 07/10/2023 07/31/2023 Overview: - patient presenting to outside ED for nausea/vomiting and abdominal pain and then had a CT abd/pelvis which showed: 1. 4.8 cm left adnexal cystic mass has significantly increased in size from prior study raising possibility for underlying malignancy 2. interval enlargement of retroperitoneal lymph nodes adjacent to the aorta and inferior vena cava raising possibility of metastatic disease 3. Interval development of moderate volume ascites 4.Multiple thick-walled loops of large and small bowel consistent with inflammatory bowel disease - CT Chest 07/11 without evidence of metastatic disease - Tumor markers this admission as follows: - CA 125 377 - CEA 1.4 - CA 19-9 18.4 - S/p diagnostic laparoscopy, peritoneal biopsies, diverting loop colostomy formation. Stage IIIC serous carcinoma. - Plan for outpatient chemotherapy - Plan for ostomy teaching prior to discharge - anticipate Thursday 07/19. documented as of this encounter (statuses as of 10/05/2023) [facility] History of Past illness Narrative* Problem Noted Date Diagnosed Date Resolved Date Ovarian mass 07/10/2023 07/31/2023 Overview: - patient presenting to outside ED for nausea/vomiting and abdominal pain and then had a CT abd/pelvis which showed: 1. 4.8 cm left adnexal cystic mass has significantly increased in size from prior study raising possibility for underlying malignancy 2. interval enlargement of retroperitoneal lymph nodes adjacent to the aorta and inferior vena cava raising possibility of metastatic disease 3. Interval development of moderate volume ascites 4.Multiple thick-walled loops of large and small bowel consistent with inflammatory bowel disease - CT Chest 07/11 without evidence of metastatic disease - Tumor markers this admission as follows: - CA 125 377 - CEA 1.4 - CA 19-9 18.4 - S/p diagnostic laparoscopy, peritoneal biopsies, diverting loop colostomy formation. Stage IIIC serous carcinoma. - Plan for outpatient chemotherapy - Plan for ostomy teaching prior to discharge - anticipate Thursday 07/19. documented as of this encounter (statuses as of 10/05/2023) [facility] History of Past illness Narrative* Problem Noted Date Diagnosed Date Resolved Date Ovarian mass 07/10/2023 07/31/2023 Overview: - patient presenting to outside ED for nausea/vomiting and abdominal pain and then had a CT abd/pelvis which showed: 1. 4.8 cm left adnexal cystic mass has significantly increased in size from prior study raising possibility for underlying malignancy 2. interval enlargement of retroperitoneal lymph nodes adjacent to the aorta and inferior vena cava raising possibility of metastatic disease 3. Interval development of moderate volume ascites 4.Multiple thick-walled loops of large and small bowel consistent with inflammatory bowel disease - CT Chest 07/11 without evidence of metastatic disease - Tumor markers this admission as follows: - CA 125 377 - CEA 1.4 - CA 19-9 18.4 - S/p diagnostic laparoscopy, peritoneal biopsies, diverting loop colostomy formation. Stage IIIC serous carcinoma. - Plan for outpatient chemotherapy - Plan for ostomy teaching prior to discharge - anticipate Thursday 07/19. documented as of this encounter (statuses as of 10/07/2023) [facility] History of Past illness Narrative* Problem Noted Date Diagnosed Date Resolved Date Ovarian mass 07/10/2023 07/31/2023 Overview: - patient presenting to outside ED for nausea/vomiting and abdominal pain and then had a CT abd/pelvis which showed: 1. 4.8 cm left adnexal cystic mass has significantly increased in size from prior study raising possibility for underlying malignancy 2. interval enlargement of retroperitoneal lymph nodes adjacent to the aorta and inferior vena cava raising possibility of metastatic disease 3. Interval development of moderate volume ascites 4.Multiple thick-walled loops of large and small bowel consistent with inflammatory bowel disease - CT Chest 07/11 without evidence of metastatic disease - Tumor markers this admission as follows: - CA 125 377 - CEA 1.4 - CA 19-9 18.4 - S/p diagnostic laparoscopy, peritoneal biopsies, diverting loop colostomy formation. Stage IIIC serous carcinoma. - Plan for outpatient chemotherapy - Plan for ostomy teaching prior to discharge - anticipate Thursday 07/19. documented as of this encounter (statuses as of 10/07/2023) [facility]12-17-2023 History of Past illness Narrative* Problem Noted Date Diagnosed Date Resolved Date Ovarian mass 07/10/2023 07/31/2023 Overview: - patient presenting to outside ED for nausea/vomiting and abdominal pain and then had a CT abd/pelvis which showed: 1. 4.8 cm left adnexal cystic mass has significantly increased in size from prior study raising possibility for underlying malignancy 2. interval enlargement of retroperitoneal lymph nodes adjacent to the aorta and inferior vena cava raising possibility of metastatic disease 3. Interval development of moderate volume ascites 4.Multiple thick-walled loops of large and small bowel consistent with inflammatory bowel disease - CT Chest 07/11 without evidence of metastatic disease - Tumor markers this admission as follows: - CA 125 377 - CEA 1.4 - CA 19-9 18.4 - S/p diagnostic laparoscopy, peritoneal biopsies, diverting loop colostomy formation. Stage IIIC serous carcinoma. - Plan for outpatient chemotherapy - Plan for ostomy teaching prior to discharge - anticipate Thursday 07/19. documented as of this encounter (statuses as of 10/07/2023) [facility]12-17-2023 History of Past illness Narrative* Problem Noted Date Diagnosed Date Resolved Date Ovarian mass 07/10/2023 07/31/2023 Overview: - patient presenting to outside ED for nausea/vomiting and abdominal pain and then had a CT abd/pelvis which showed: 1. 4.8 cm left adnexal cystic mass has significantly increased in size from prior study raising possibility for underlying malignancy 2. interval enlargement of retroperitoneal lymph nodes adjacent to the aorta and inferior vena cava raising possibility of metastatic disease 3. Interval development of moderate volume ascites 4.Multiple thick-walled loops of large and small bowel consistent with inflammatory bowel disease - CT Chest 07/11 without evidence of metastatic disease - Tumor markers this admission as follows: - CA 125 377 - CEA 1.4 - CA 19-9 18.4 - S/p diagnostic laparoscopy, peritoneal biopsies, diverting loop colostomy formation. Stage IIIC serous carcinoma. - Plan for outpatient chemotherapy - Plan for ostomy teaching prior to discharge - anticipate Thursday 07/19. documented as of this encounter (statuses as of 10/07/2023) [facility]12[facility] History of Past illness Narrative* Problem Noted Date Diagnosed Date Resolved Date Ovarian mass 07/10/2023 07/31/2023 Overview: - patient presenting to outside ED for nausea/vomiting and abdominal pain and then had a CT abd/pelvis which showed: 1. 4.8 cm left adnexal cystic mass has significantly increased in size from prior study raising possibility for underlying malignancy 2. interval enlargement of retroperitoneal lymph nodes adjacent to the aorta and inferior vena cava raising possibility of metastatic disease 3. Interval development of moderate volume ascites 4.Multiple thick-walled loops of large and small bowel consistent with inflammatory bowel disease - CT Chest 07/11 without evidence of metastatic disease - Tumor markers this admission as follows: - CA 125 377 - CEA 1.4 - CA 19-9 18.4 - S/p diagnostic laparoscopy, peritoneal biopsies, diverting loop colostomy formation. Stage IIIC serous carcinoma. - Plan for outpatient chemotherapy - Plan for ostomy teaching prior to discharge - anticipate Thursday 07/19. documented as of this encounter (statuses as of 10/10/2023) [facility]12[facility] History of Past illness Narrative* Problem Noted Date Diagnosed Date Resolved Date Ovarian mass 07/10/2023 07/31/2023 Overview: - patient presenting to outside ED for nausea/vomiting and abdominal pain and then had a CT abd/pelvis which showed: 1. 4.8 cm left adnexal cystic mass has significantly increased in size from prior study raising possibility for underlying malignancy 2. interval enlargement of retroperitoneal lymph nodes adjacent to the aorta and inferior vena cava raising possibility of metastatic disease 3. Interval development of moderate volume ascites 4.Multiple thick-walled loops of large and small bowel consistent with inflammatory bowel disease - CT Chest 07/11 without evidence of metastatic disease - Tumor markers this admission as follows: - CA 125 377 - CEA 1.4 - CA 19-9 18.4 - S/p diagnostic laparoscopy, peritoneal biopsies, diverting loop colostomy formation. Stage IIIC serous carcinoma. - Plan for outpatient chemotherapy - Plan for ostomy teaching prior to discharge - anticipate Thursday 07/19. documented as of this encounter (statuses as of 10/14/2023) [facility] History of Past illness Narrative* Problem Noted Date Diagnosed Date Resolved Date Ovarian mass 07/10/2023 07/31/2023 Overview: - patient presenting to outside ED for nausea/vomiting and abdominal pain and then had a CT abd/pelvis which showed: 1. 4.8 cm left adnexal cystic mass has significantly increased in size from prior study raising possibility for underlying malignancy 2. interval enlargement of retroperitoneal lymph nodes adjacent to the aorta and inferior vena cava raising possibility of metastatic disease 3. Interval development of moderate volume ascites 4.Multiple thick-walled loops of large and small bowel consistent with inflammatory bowel disease - CT Chest 07/11 without evidence of metastatic disease - Tumor markers this admission as follows: - CA 125 377 - CEA 1.4 - CA 19-9 18.4 - S/p diagnostic laparoscopy, peritoneal biopsies, diverting loop colostomy formation. Stage IIIC serous carcinoma. - Plan for outpatient chemotherapy - Plan for ostomy teaching prior to discharge - anticipate Thursday 07/19. documented as of this encounter (statuses as of 10/14/2023) [facility] History of Past illness Narrative* Problem Noted Date Diagnosed Date Resolved Date Ovarian mass 07/10/2023 07/31/2023 Overview: - patient presenting to outside ED for nausea/vomiting and abdominal pain and then had a CT abd/pelvis which showed: 1. 4.8 cm left adnexal cystic mass has significantly increased in size from prior study raising possibility for underlying malignancy 2. interval enlargement of retroperitoneal lymph nodes adjacent to the aorta and inferior vena cava raising possibility of metastatic disease 3. Interval development of moderate volume ascites 4.Multiple thick-walled loops of large and small bowel consistent with inflammatory bowel disease - CT Chest 07/11 without evidence of metastatic disease - Tumor markers this admission as follows: - CA 125 377 - CEA 1.4 - CA 19-9 18.4 - S/p diagnostic laparoscopy, peritoneal biopsies, diverting loop colostomy formation. Stage IIIC serous carcinoma. - Plan for outpatient chemotherapy - Plan for ostomy teaching prior to discharge - anticipate Thursday 07/19. documented as of this encounter (statuses as of 10/14/2023) [facility] History of Past illness Narrative* Problem Noted Date Diagnosed Date Resolved Date Ovarian mass 07/10/2023 07/31/2023 Overview: - patient presenting to outside ED for nausea/vomiting and abdominal pain and then had a CT abd/pelvis which showed: 1. 4.8 cm left adnexal cystic mass has significantly increased in size from prior study raising possibility for underlying malignancy 2. interval enlargement of retroperitoneal lymph nodes adjacent to the aorta and inferior vena cava raising possibility of metastatic disease 3. Interval development of moderate volume ascites 4.Multiple thick-walled loops of large and small bowel consistent with inflammatory bowel disease - CT Chest 07/11 without evidence of metastatic disease - Tumor markers this admission as follows: - CA 125 377 - CEA 1.4 - CA 19-9 18.4 - S/p diagnostic laparoscopy, peritoneal biopsies, diverting loop colostomy formation. Stage IIIC serous carcinoma. - Plan for outpatient chemotherapy - Plan for ostomy teaching prior to discharge - anticipate Thursday 07/19. documented as of this encounter (statuses as of 10/25/2023) [facility] History of Past illness Narrative* Problem Noted Date Diagnosed Date Resolved Date Ovarian mass 07/10/2023 07/31/2023 Overview: - patient presenting to outside ED for nausea/vomiting and abdominal pain and then had a CT abd/pelvis which showed: 1. 4.8 cm left adnexal cystic mass has significantly increased in size from prior study raising possibility for underlying malignancy 2. interval enlargement of retroperitoneal lymph nodes adjacent to the aorta and inferior vena cava raising possibility of metastatic disease 3. Interval development of moderate volume ascites 4.Multiple thick-walled loops of large and small bowel consistent with inflammatory bowel disease - CT Chest 07/11 without evidence of metastatic disease - Tumor markers this admission as follows: - CA 125 377 - CEA 1.4 - CA 19-9 18.4 - S/p diagnostic laparoscopy, peritoneal biopsies, diverting loop colostomy formation. Stage IIIC serous carcinoma. - Plan for outpatient chemotherapy - Plan for ostomy teaching prior to discharge - anticipate Thursday 07/19. documented as of this encounter (statuses as of 10/25/2023) [facility] History of Past illness Narrative* Problem Noted Date Diagnosed Date Resolved Date Ovarian mass 07/10/2023 07/31/2023 Overview: - patient presenting to outside ED for nausea/vomiting and abdominal pain and then had a CT abd/pelvis which showed: 1. 4.8 cm left adnexal cystic mass has significantly increased in size from prior study raising possibility for underlying malignancy 2. interval enlargement of retroperitoneal lymph nodes adjacent to the aorta and inferior vena cava raising possibility of metastatic disease 3. Interval development of moderate volume ascites 4.Multiple thick-walled loops of large and small bowel consistent with inflammatory bowel disease - CT Chest 07/11 without evidence of metastatic disease - Tumor markers this admission as follows: - CA 125 377 - CEA 1.4 - CA 19-9 18.4 - S/p diagnostic laparoscopy, peritoneal biopsies, diverting loop colostomy formation. Stage IIIC serous carcinoma. - Plan for outpatient chemotherapy - Plan for ostomy teaching prior to discharge - anticipate Thursday 07/19. documented as of this encounter (statuses as of 10/26/2023) [facility] History of Past illness Narrative* Problem Noted Date Diagnosed Date Resolved Date Ovarian mass 07/10/2023 07/31/2023 Overview: - patient presenting to outside ED for nausea/vomiting and abdominal pain and then had a CT abd/pelvis which showed: 1. 4.8 cm left adnexal cystic mass has significantly increased in size from prior study raising possibility for underlying malignancy 2. interval enlargement of retroperitoneal lymph nodes adjacent to the aorta and inferior vena cava raising possibility of metastatic disease 3. Interval development of moderate volume ascites 4.Multiple thick-walled loops of large and small bowel consistent with inflammatory bowel disease - CT Chest 07/11 without evidence of metastatic disease - Tumor markers this admission as follows: - CA 125 377 - CEA 1.4 - CA 19-9 18.4 - S/p diagnostic laparoscopy, peritoneal biopsies, diverting loop colostomy formation. Stage IIIC serous carcinoma. - Plan for outpatient chemotherapy - Plan for ostomy teaching prior to discharge - anticipate Thursday 07/19. documented as of this encounter (statuses as of 10/26/2023) [facility] History of Past illness Narrative* Problem Noted Date Diagnosed Date Resolved Date Ovarian mass 07/10/2023 07/31/2023 Overview: - patient presenting to outside ED for nausea/vomiting and abdominal pain and then had a CT abd/pelvis which showed: 1. 4.8 cm left adnexal cystic mass has significantly increased in size from prior study raising possibility for underlying malignancy 2. interval enlargement of retroperitoneal lymph nodes adjacent to the aorta and inferior vena cava raising possibility of metastatic disease 3. Interval development of moderate volume ascites 4.Multiple thick-walled loops of large and small bowel consistent with inflammatory bowel disease - CT Chest 07/11 without evidence of metastatic disease - Tumor markers this admission as follows: - CA 125 377 - CEA 1.4 - CA 19-9 18.4 - S/p diagnostic laparoscopy, peritoneal biopsies, diverting loop colostomy formation. Stage IIIC serous carcinoma. - Plan for outpatient chemotherapy - Plan for ostomy teaching prior to discharge - anticipate Thursday 07/19. documented as of this encounter (statuses as of 11/02/2023) [facility] History of Past illness Narrative* Problem Noted Date Diagnosed Date Resolved Date Ovarian mass 07/10/2023 07/31/2023 Overview: - patient presenting to outside ED for nausea/vomiting and abdominal pain and then had a CT abd/pelvis which showed: 1. 4.8 cm left adnexal cystic mass has significantly increased in size from prior study raising possibility for underlying malignancy 2. interval enlargement of retroperitoneal lymph nodes adjacent to the aorta and inferior vena cava raising possibility of metastatic disease 3. Interval development of moderate volume ascites 4.Multiple thick-walled loops of large and small bowel consistent with inflammatory bowel disease - CT Chest 07/11 without evidence of metastatic disease - Tumor markers this admission as follows: - CA 125 377 - CEA 1.4 - CA 19-9 18.4 - S/p diagnostic laparoscopy, peritoneal biopsies, diverting loop colostomy formation. Stage IIIC serous carcinoma. - Plan for outpatient chemotherapy - Plan for ostomy teaching prior to discharge - anticipate Thursday 07/19. documented as of this encounter (statuses as of 11/03/2023) [facility] History of Past illness Narrative* Problem Noted Date Diagnosed Date Resolved Date Ovarian mass 07/10/2023 07/31/2023 Overview: - patient presenting to outside ED for nausea/vomiting and abdominal pain and then had a CT abd/pelvis which showed: 1. 4.8 cm left adnexal cystic mass has significantly increased in size from prior study raising possibility for underlying malignancy 2. interval enlargement of retroperitoneal lymph nodes adjacent to the aorta and inferior vena cava raising possibility of metastatic disease 3. Interval development of moderate volume ascites 4.Multiple thick-walled loops of large and small bowel consistent with inflammatory bowel disease - CT Chest 07/11 without evidence of metastatic disease - Tumor markers this admission as follows: - CA 125 377 - CEA 1.4 - CA 19-9 18.4 - S/p diagnostic laparoscopy, peritoneal biopsies, diverting loop colostomy formation. Stage IIIC serous carcinoma. - Plan for outpatient chemotherapy - Plan for ostomy teaching prior to discharge - anticipate Thursday 07/19. documented as of this encounter (statuses as of 11/11/2023) [facility]12-13-2022 Instructions* Patient Instructions* Mark Kruse II, OD - 07/06/2022 10:23 AM EST Assessment and Plan Z79.899 Long-term use of Plaquenil (primary encounter diagnosis) Comment: No ocular complications found secondary to use of Plaquenil. Continue regularly scheduled observation as instructed. Discussed need for early detection of ocular complications as they can continue to progress for a period of time even after medication is discontinued. H25.813 Combined forms of age-related cataract, bilateral Comment: Progression both eyes with myopic shift left eye. Patient will consider cataract surgery consult with Dr. Bergman and call when desired. H43.393 Vitreous floaters of both eyes Comment: Vitreal floaters stable both eyes. Retinas flat and intact with no apparent retinal tear or traction. Monitor yearly. H52.13 Myopia, bilateral H52.223 Regular astigmatism of both eyes H52.4 Presbyopia Comment: Update glasses power left eye if cataract surgery not pursued. H40.002 Glaucoma suspect of left eye Comment: Increased cupping noted left eye. Baseline OCT NFA obtained showing NFL thinning. Discussed treatment options. Will repeat OCT NFA in 6 months. Discussed need for continued monitoring. I have confirmed and edited as necessary the relevant ophthalmic history, ROS, and the neuro exam findings as obtained by others. I have seen and examined Gasper Reed. I have discussed the case and the management of this patient's care with the Resident/Fellow, if applicable. I also have reviewed and agree with the assessment and plan as stated above and agree withall of its relevant components. Mark Kruse II, OD [facility] of Present illness Narrative* Mark Kruse II, OD - 07/06/2022 10:20 AM EST Assessment and Plan Z79.899 Long-term use of Plaquenil (primary encounter diagnosis) Comment: No ocular complications found secondary to use of Plaquenil. Continue regularly scheduled observation as instructed. Discussed need for early detection of ocular complications as they can continue to progress for a period of time even after medication is discontinued. H25.813 Combined forms of age-related cataract, bilateral Comment: Progression both eyes with myopic shift left eye. Patient will consider cataract surgery consult with Dr. Bergman and call when desired. H43.393 Vitreous floaters of both eyes Comment: Vitreal floaters stable both eyes. Retinas flat and intact with no apparent retinal tear or traction. Monitor yearly. H52.13 Myopia, bilateral H52.223 Regular astigmatism of both eyes H52.4 Presbyopia Comment: Update glasses power left eye if cataract surgery not pursued. H40.002 Glaucoma suspect of left eye Comment: Increased cupping noted left eye. Baseline OCT NFA obtained showing NFL thinning. Discussed treatment options. Will repeat OCT NFA in 6 months. Discussed need for continued monitoring. I have confirmed and edited as necessary the relevant ophthalmic history, ROS, and the neuro exam findings as obtained by others. I have seen and examined Gasper Reed. I have discussed the case and the management of this patient's care with the Resident/Fellow, if applicable. I also have reviewed and agree with the assessment and plan as stated above and agree withall of its relevant components. 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, unspecified documented in this encounter [facility]* Diagnosis Onset Date Resolution Status Endometrial thickening on ultrasound acute Simple ovarian cyst [facility] Work Phone: Evaluation note* Diagnosis Onset Date Resolution Status Endometrial thickening on ultrasound acute Simple ovarian cyst acute Endometrial thickening on ultrasound [facility] Work Phone: Evaluation note* Diagnosis Ovarian cancer on left (HCC)- Primary Malignant neoplasm of ovary Severe protein-calorie malnutrition (HCC) Other severe protein-calorie malnutrition documented [facility] this encounter [facility]* Diagnosis Ovarian cancer on left (HCC)- Primary Malignant neoplasm of ovary documented [facility] this [facility]* Diagnosis Ovarian cancer on left (HCC)- Primary Malignant neoplasm of ovary documented in this encounter [facility] note* Diagnosis Ovarian cancer on left (HCC)- Primary Malignant neoplasm of ovary [facility] Diagnosis Ovarian cancer on left (HCC) Malignant neoplasm of ovary [facility]* Diagnosis Ovarian cancer on left (HCC) Malignant neoplasm of ovary [facility]* Diagnosis Ovarian cancer on left (HCC)- Primary Malignant neoplasm of ovary Platelets decreased (HCC) Thrombocytopenia, unspecified [facility]* Diagnosis Severe protein-calorie malnutrition (HCC)- Primary Other severe protein-calorie malnutrition Ovarian cancer on left (HCC) Malignant neoplasm of ovary [facility] Diagnosis Ovarian cancer on left (HCC)- Primary Malignant neoplasm of ovary [facility]* Diagnosis Ovarian cancer on left (HCC)- Primary Malignant neoplasm of ovary [facility] Diagnosis Ovarian cancer on left (HCC) Malignant neoplasm of ovary [facility] Diagnosis Ovarian cancer on left (HCC) Malignant neoplasm of ovary [facility] Diagnosis Ovarian cancer on left (HCC)- Primary Malignant neoplasm of ovary Platelets decreased (HCC) Thrombocytopenia, unspecified Antineoplastic chemotherapy induced anemia [facility] Diagnosis Ovarian cancer on left (HCC)- Primary Malignant neoplasm of ovary [facility] Diagnosis Ovarian cancer on left (HCC)- Primary Malignant neoplasm of ovary [facility]* Diagnosis Preoperative examination- Primary Preoperative examination, unspecified Ovarian cancer on left (HCC) Malignant neoplasm of ovary Drug-induced anemia Other specified anemias [facility]* Diagnosis Thrombocytopenia (HCC)- Primary Thrombocytopenia, unspecified [facility]* Diagnosis Post-operative state- Primary Other postprocedural status Ovarian cancer, bilateral (HCC) documented [facility]* Diagnosis Ovarian cancer, bilateral (HCC)- Primary Ovarian cancer on left (HCC) Malignant neoplasm of ovary Thrombocytopenia (HCC) Thrombocytopenia, unspecified [facility] Diagnosis Ovarian cancer on left (HCC)- Primary Malignant neoplasm of ovary Thrombocytopenia (HCC) Thrombocytopenia, unspecified Antineoplastic chemotherapy induced anemia [facility] Diagnosis Ovarian cancer on left (HCC) Malignant neoplasm of ovary [facility] Diagnosis Ovarian cancer, bilateral (HCC)- Primary [facility] Diagnosis Elevated LFTs- Primary Other abnormal blood chemistry Elevated LFTs Other abnormal blood chemistry [facility] Diagnosis Ovarian cancer on left (HCC)- Primary Malignant neoplasm of ovary [facility] Diagnosis Elevated LFTs Other abnormal blood chemistry [facility] Diagnosis Ovarian cancer on left (HCC)- Primary Malignant neoplasm of ovary [facility] Diagnosis 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 Ovarian cancer on left (HCC) Malignant neoplasm of ovary [facility] this [facility] [facility] Diagnosis Ovarian cancer, bilateral (HCC)- Primary 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 Thrombocytopenia (HCC) Thrombocytopenia, unspecified [facility] Diagnosis Ovarian cancer on left (HCC) Malignant neoplasm of ovary Ovarian cancer, bilateral (HCC) 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 Thrombocytopenia (HCC) Thrombocytopenia, unspecified [facility] Diagnosis Ovarian cancer on left (HCC) Malignant neoplasm of ovary Ovarian cancer, bilateral (HCC) 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 Thrombocytopenia (HCC) Thrombocytopenia, unspecified [facility] Diagnosis Ovarian cancer, bilateral (HCC)- Primary [facility] Diagnosis Ovarian cancer on left (HCC) Malignant neoplasm of ovary Ovarian cancer, bilateral (HCC) 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 Thrombocytopenia (HCC) Thrombocytopenia, unspecified [facility] Diagnosis Ovarian cancer on left (HCC)- Primary Malignant neoplasm of ovary Ovarian cancer, bilateral (HCC) 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 Thrombocytopenia (HCC) Thrombocytopenia, unspecified Platelets decreased (HCC) Thrombocytopenia, unspecified [facility] Diagnosis Ovarian cancer on left (HCC)- Primary Malignant neoplasm of ovary Ovarian cancer, bilateral (HCC) 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 Thrombocytopenia (HCC) Thrombocytopenia, unspecified Platelets decreased (HCC) Thrombocytopenia, unspecified [facility] Diagnosis Ovarian cancer on left (HCC)- Primary Malignant neoplasm of ovary [facility] Diagnosis Ovarian cancer, bilateral (HCC) [facility] Diagnosis Ovarian cancer on left (HCC)- Primary Malignant neoplasm of ovary Ovarian cancer, bilateral (HCC) 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 Thrombocytopenia (HCC) Thrombocytopenia, unspecified Platelets decreased (HCC) Thrombocytopenia, unspecified [facility] Diagnosis Ovarian cancer on left (HCC)- Primary Malignant neoplasm of ovary Thrombocytopenia (HCC) Thrombocytopenia, unspecified 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 [facility] Diagnosis Ovarian cancer, bilateral (HCC)- Primary [facility] Diagnosis Ovarian cancer on left (HCC)- Primary Malignant neoplasm of ovary [facility] Diagnosis Ovarian cancer on left (HCC)- Primary Malignant neoplasm of ovary BRIP1 gene mutation positive [facility]* Diagnosis Ovarian cancer, bilateral (HCC) [facility] Diagnosis Ovarian cancer on left (HCC) Malignant neoplasm of ovary [facility] Diagnosis Ovarian cancer on left (HCC) Malignant neoplasm of ovary Preop examination Preoperative examination, unspecified Platelets decreased (HCC) Thrombocytopenia, unspecified Severe protein-calorie malnutrition (HCC) Other severe protein-calorie malnutrition 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, involving unspecified site (HCC) Chronic hypertension Ovarian cancer, bilateral (HCC)- Primary BRIP1 gene mutation positive [facility] Diagnosis Ovarian cancer on left (HCC) Malignant neoplasm of ovary Preop examination Preoperative examination, unspecified Platelets decreased (HCC) Thrombocytopenia, unspecified Severe protein-calorie malnutrition (HCC) Other severe protein-calorie malnutrition 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, involving unspecified site (HCC) Chronic hypertension Ovarian cancer, bilateral (HCC)- Primary [facility] Ovarian cancer on left (HCC) Malignant neoplasm of ovary Preop examination Preoperative examination, unspecified Platelets decreased (HCC) Thrombocytopenia, unspecified Severe protein-calorie malnutrition (HCC) Other severe protein-calorie malnutrition 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, involving unspecified site (HCC) Chronic hypertension Ovarian cancer on left (HCC) Malignant neoplasm of ovary Macrocytic anemia Unspecified deficiency anemia [facility] Diagnosis Ovarian cancer on left (HCC) Malignant neoplasm of ovary Preop examination Preoperative examination, unspecified Platelets decreased (HCC) Thrombocytopenia, unspecified Severe protein-calorie malnutrition (HCC) Other severe protein-calorie malnutrition 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, involving unspecified site (HCC) Chronic hypertension Ovarian cancer on left (HCC)- Primary Malignant neoplasm of ovary Macrocytic anemia Unspecified deficiency anemia [facility] Diagnosis Ovarian cancer on left (HCC) Malignant neoplasm of ovary Preop examination Preoperative examination, unspecified Platelets decreased (HCC) Thrombocytopenia, unspecified Severe protein-calorie malnutrition (HCC) Other severe protein-calorie malnutrition 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, involving unspecified site (HCC) Chronic hypertension Anemia, unspecified type- Primary [facility] Diagnosis Ovarian cancer on left (HCC) Malignant neoplasm of ovary Preop examination Preoperative examination, unspecified Platelets decreased (HCC) Thrombocytopenia, unspecified Severe protein-calorie malnutrition (HCC) Other severe protein-calorie malnutrition 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, involving unspecified site (HCC) Chronic hypertension Ovarian cancer, bilateral (HCC)- Primary Ovarian cancer on left (HCC) Malignant neoplasm of ovary 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 Thrombocytopenia (HCC) Thrombocytopenia, unspecified Platelets decreased (HCC) Thrombocytopenia, unspecified Anemia, unspecified type [facility] Diagnosis Ovarian cancer on left (HCC) Malignant neoplasm of ovary Preop examination Preoperative examination, unspecified Platelets decreased (HCC) Thrombocytopenia, unspecified Severe protein-calorie malnutrition (HCC) Other severe protein-calorie malnutrition 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, involving unspecified site (HCC) Chronic hypertension Ovarian cancer, bilateral (HCC) BRIP1 gene mutation positive [facility] Diagnosis Ovarian cancer on left (HCC) Malignant neoplasm of ovary Preop examination Preoperative examination, unspecified Platelets decreased (HCC) Thrombocytopenia, unspecified Severe protein-calorie malnutrition (HCC) Other severe protein-calorie malnutrition 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, involving unspecified site (HCC) Chronic hypertension Ovarian cancer, bilateral (HCC)- Primary Ovarian cancer on left (HCC) Malignant neoplasm of ovary 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 Thrombocytopenia (HCC) Thrombocytopenia, unspecified Platelets decreased (HCC) Thrombocytopenia, unspecified [facility] Diagnosis Ovarian cancer on left (HCC) Malignant neoplasm of ovary Preop examination Preoperative examination, unspecified Platelets decreased (HCC) Thrombocytopenia, unspecified Severe protein-calorie malnutrition (HCC) Other severe protein-calorie malnutrition 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, involving unspecified site (HCC) Chronic hypertension Ovarian cancer on left (HCC) Malignant neoplasm of ovary Ovarian cancer, bilateral (HCC) 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 Thrombocytopenia (HCC) Thrombocytopenia, unspecified Platelets decreased (HCC) Thrombocytopenia, unspecified [facility] Diagnosis Ovarian cancer on left (HCC) Malignant neoplasm of ovary Preop examination Preoperative examination, unspecified Platelets decreased (HCC) Thrombocytopenia, unspecified Severe protein-calorie malnutrition (HCC) Other severe protein-calorie malnutrition 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, involving unspecified site (HCC) Chronic hypertension Attention to colostomy (HCC)- Primary Attention to colostomy [facility] Diagnosis Ovarian cancer on left (HCC) Malignant neoplasm of ovary Preop examination Preoperative examination, unspecified Platelets decreased (HCC) Thrombocytopenia, unspecified Severe protein-calorie malnutrition (HCC) Other severe protein-calorie malnutrition 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, involving unspecified site (HCC) Chronic hypertension Ovarian cancer on left (HCC)- Primary Malignant neoplasm of ovary Ovarian cancer, bilateral (HCC) 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 Thrombocytopenia (HCC) Thrombocytopenia, unspecified Platelets decreased (HCC) Thrombocytopenia, unspecified 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, involving unspecified site (HCC) Chronic hypertension Ovarian cancer on left (HCC) Malignant neoplasm of ovary Ovarian cancer, bilateral (HCC) 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 Thrombocytopenia (HCC) Thrombocytopenia, unspecified Platelets decreased (HCC) Thrombocytopenia, unspecified Attention to colostomy (HCC) Attention to colostomy 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, involving unspecified site (HCC) Chronic hypertension Preop examination- Primary Preoperative examination, unspecified Attention to colostomy (HCC) Attention to colostomy 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, involving unspecified site (HCC) Platelets decreased (HCC) Thrombocytopenia, unspecified 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 BP elevated at PST 151/70. Patient denies current headache, dizziness, vision changes, SOB, chest pain. Instructed patient to continue monitor BP at home, if stays high or experience symptoms to contact PCP. * Assessment & Plan Note - Sandra Alvares APRN.CNP - 04/20/2024 7:39 AM EDT Associated Problem(s): 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 chemotherapy Component Ref Range & Units 1 d ago (04/19/24) 8 d ago (04/12/24) 2 wk ago (04/05/24) 3 wk ago (03/29/24) 1 mo ago (03/21/24) 1 mo ago (03/19/24) 1 mo ago (02/28/24) WBC 3.70 - 11.00 k/uL 4.22 4.03 4.49 5.06 4.61 4.17 3.04 Low RBC 3.90 - 5.20 m/uL 2.59 Low 2.64 Low 2.72 Low 2.84 Low 2.67 Low 2.61 Low 2.73 Low Hemoglobin 11.5 - 15.5 g/dL 9.4 Low 9.4 Low 9.6 Low 9.9 Low 9.3 Low 9.1 Low 9.0 Low Hematocrit 36.0 - 46.0 % 27.1 Low 27.6 Low * Assessment & Plan Note - Sandra Alvares APRN.CNP - 04/20/2024 7:38 AM EDT Associated Problem(s): Platelets decreased (HCC) Platelet Count 150 - 400 k/uL 119 Low 114 Low [address] Mccoy * Assessment & Plan Note - Sandra Alvares APRN.CNP - 04/20/2024 7:37 AM EDT Associated Problem(s): Rheumatoid arthritis without rheumatoid factor, unspecified site (HCC) Patient reports - mild * Assessment & Plan Note - Sandra Alvares APRN.CNP - 04/20/2024 7:36 AM EDT Associated Problem(s): Attention to colostomy (HCC) Surgery scheduled 04/24/24 * Assessment & Plan Note - Sandra Alvares APRN.CNP - 04/20/2024 7:35 AM EDT Associated Problem(s): Preop examination Medical conditions which may affect the perioperative course were address in today's visit. 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, involving unspecified site (HCC) Chronic hypertension Preop examination- Primary Preoperative examination, unspecified Attention to colostomy (HCC) Attention to colostomy 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, involving unspecified site (HCC) Platelets decreased (HCC) Thrombocytopenia, unspecified 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 Chronic hypertension Ovarian cancer, bilateral (HCC)- Primary Attention to colostomy (HCC) Attention to colostomy [facility] Diagnosis Ovarian cancer on left (HCC) Malignant neoplasm of ovary Preop examination Preoperative examination, unspecified Platelets decreased (HCC) Thrombocytopenia, unspecified Severe protein-calorie malnutrition (HCC) Other severe protein-calorie malnutrition 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, involving unspecified site (HCC) Chronic hypertension Preop examination- Primary Preoperative examination, unspecified Attention to colostomy (HCC) Attention to colostomy 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, involving unspecified site (HCC) Platelets decreased (HCC) Thrombocytopenia, unspecified 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 Chronic hypertension Ovarian cancer, bilateral (HCC)- Primary Anemia, unspecified type [facility] Diagnosis Ovarian cancer on left (HCC) Malignant neoplasm of ovary Preop examination Preoperative examination, unspecified Platelets decreased (HCC) Thrombocytopenia, unspecified Severe protein-calorie malnutrition (HCC) Other severe protein-calorie malnutrition 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, involving unspecified site (HCC) Chronic hypertension Preop examination- Primary Preoperative examination, unspecified Attention to colostomy (HCC) Attention to colostomy 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, involving unspecified site (HCC) Platelets decreased (HCC) Thrombocytopenia, unspecified 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 Chronic hypertension Ovarian cancer on left (HCC)- Primary Malignant neoplasm of ovary Ovarian cancer, bilateral (HCC) 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 Thrombocytopenia (HCC) Thrombocytopenia, unspecified Platelets decreased (HCC) Thrombocytopenia, unspecified [facility] Diagnosis Ovarian cancer on left (HCC) Malignant neoplasm of ovary Preop examination Preoperative examination, unspecified Platelets decreased (HCC) Thrombocytopenia, unspecified Severe protein-calorie malnutrition (HCC) Other severe protein-calorie malnutrition 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, involving unspecified site (HCC) Chronic hypertension Preop examination- Primary Preoperative examination, unspecified Attention to colostomy (HCC) Attention to colostomy 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, involving unspecified site (HCC) Platelets decreased (HCC) Thrombocytopenia, unspecified 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 Chronic hypertension Ovarian cancer on left (HCC)- Primary Malignant neoplasm of ovary Ovarian cancer, bilateral (HCC) 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 Thrombocytopenia (HCC) Thrombocytopenia, unspecified Platelets decreased (HCC) Thrombocytopenia, unspecified [facility] Diagnosis Ovarian cancer on left (HCC) Malignant neoplasm of ovary Preop examination Preoperative examination, unspecified Platelets decreased (HCC) Thrombocytopenia, unspecified Severe protein-calorie malnutrition (HCC) Other severe protein-calorie malnutrition 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, involving unspecified site (HCC) Chronic hypertension Preop examination- Primary Preoperative examination, unspecified Attention to colostomy (HCC) Attention to colostomy 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, involving unspecified site (HCC) Platelets decreased (HCC) Thrombocytopenia, unspecified 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 Chronic hypertension Attention to colostomy (HCC)- Primary Attention to colostomy [facility] Diagnosis Ovarian cancer on left (HCC) Malignant neoplasm of ovary Preop examination Preoperative examination, unspecified Platelets decreased (HCC) Thrombocytopenia, unspecified Severe protein-calorie malnutrition (HCC) Other severe protein-calorie malnutrition 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, involving unspecified site (HCC) Chronic hypertension Preop examination- Primary Preoperative examination, unspecified Attention to colostomy (HCC) Attention to colostomy 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, involving unspecified site (HCC) Platelets decreased (HCC) Thrombocytopenia, unspecified 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 Chronic hypertension Ovarian cancer on left (HCC) Malignant neoplasm of ovary [facility] Diagnosis Ovarian cancer on left (HCC) Malignant neoplasm of ovary Preop examination Preoperative examination, unspecified Platelets decreased (HCC) Thrombocytopenia, unspecified Severe protein-calorie malnutrition (HCC) Other severe protein-calorie malnutrition 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, involving unspecified site (HCC) Chronic hypertension Preop examination- Primary Preoperative examination, unspecified Attention to colostomy (HCC) Attention to colostomy 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, involving unspecified site (HCC) Platelets decreased (HCC) Thrombocytopenia, unspecified 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 Chronic hypertension Ovarian cancer, bilateral (HCC)- Primary [facility] Diagnosis Ovarian cancer on left (HCC) Malignant neoplasm of ovary Preop examination Preoperative examination, unspecified Platelets decreased (HCC) Thrombocytopenia, unspecified Severe protein-calorie malnutrition (HCC) Other severe protein-calorie malnutrition 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, involving unspecified site (HCC) Chronic hypertension Preop examination- Primary Preoperative examination, unspecified Attention to colostomy (HCC) Attention to colostomy 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, involving unspecified site (HCC) Platelets decreased (HCC) Thrombocytopenia, unspecified 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 Chronic hypertension Ovarian cancer, bilateral (HCC)- Primary BRIP1 gene mutation positive Attention to colostomy (HCC) Attention to colostomy Elevated tumor markers Other abnormal tumor markers 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, involving unspecified site (HCC) Chronic hypertension Preop examination- Primary Preoperative examination, unspecified Attention to colostomy (HCC) Attention to colostomy 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, involving unspecified site (HCC) Platelets decreased (HCC) Thrombocytopenia, unspecified 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 Chronic hypertension Ovarian cancer, bilateral (HCC)- Primary Ovarian cancer on left (HCC) Malignant neoplasm of ovary 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 Thrombocytopenia (HCC) Thrombocytopenia, unspecified Platelets decreased (HCC) Thrombocytopenia, unspecified [facility] Diagnosis Ovarian cancer on left (HCC) Malignant neoplasm of ovary Preop examination Preoperative examination, unspecified Platelets decreased (HCC) Thrombocytopenia, unspecified Severe protein-calorie malnutrition (HCC) Other severe protein-calorie malnutrition 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, involving unspecified site (HCC) Chronic hypertension Preop examination- Primary Preoperative examination, unspecified Attention to colostomy (HCC) Attention to colostomy 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, involving unspecified site (HCC) Platelets decreased (HCC) Thrombocytopenia, unspecified 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 Chronic hypertension Ovarian cancer on left (HCC) Malignant neoplasm of ovary Ovarian cancer, bilateral (HCC) 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 Thrombocytopenia (HCC) Thrombocytopenia, unspecified Platelets decreased (HCC) Thrombocytopenia, unspecified 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, involving unspecified site (HCC) Chronic hypertension Preop examination- Primary Preoperative examination, unspecified Attention to colostomy (HCC) Attention to colostomy 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, involving unspecified site (HCC) Platelets decreased (HCC) Thrombocytopenia, unspecified 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 Chronic hypertension Ovarian cancer, bilateral (HCC)- Primary 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, involving unspecified site (HCC) Chronic hypertension Preop examination- Primary Preoperative examination, unspecified Attention to colostomy (HCC) Attention to colostomy 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, involving unspecified site (HCC) Platelets decreased (HCC) Thrombocytopenia, unspecified 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 Chronic hypertension Ovarian cancer, bilateral (HCC)- Primary [facility] Diagnosis Ovarian cancer on left (HCC) Malignant neoplasm of ovary Preop examination Preoperative examination, unspecified Platelets decreased (HCC) Thrombocytopenia, unspecified Severe protein-calorie malnutrition (HCC) Other severe protein-calorie malnutrition 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, involving unspecified site (HCC) Chronic hypertension Preop examination- Primary Preoperative examination, unspecified Attention to colostomy (HCC) Attention to colostomy 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, involving unspecified site (HCC) Platelets decreased (HCC) Thrombocytopenia, unspecified 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 Chronic hypertension Ovarian cancer on left (HCC)- Primary Malignant neoplasm of ovary 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 [facility] Diagnosis Ovarian cancer on left (HCC) Malignant neoplasm of ovary Preop examination Preoperative examination, unspecified Platelets decreased (HCC) Thrombocytopenia, unspecified Severe protein-calorie malnutrition (HCC) Other severe protein-calorie malnutrition 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, involving unspecified site (HCC) Chronic hypertension Preop examination- Primary Preoperative examination, unspecified Attention to colostomy (HCC) Attention to colostomy 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, involving unspecified site (HCC) Platelets decreased (HCC) Thrombocytopenia, unspecified 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 Chronic hypertension Ovarian cancer on left (HCC) Malignant neoplasm of ovary Ovarian cancer, bilateral (HCC) 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 [facility] Diagnosis Ovarian cancer on left (HCC) Malignant neoplasm of ovary Preop examination Preoperative examination, unspecified Platelets decreased (HCC) Thrombocytopenia, unspecified Severe protein-calorie malnutrition (HCC) Other severe protein-calorie malnutrition 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, involving unspecified site (HCC) Chronic hypertension Preop examination- Primary Preoperative examination, unspecified Attention to colostomy (HCC) Attention to colostomy 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, involving unspecified site (HCC) Platelets decreased (HCC) Thrombocytopenia, unspecified 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 Chronic hypertension Attention to colostomy (HCC)- Primary Attention to colostomy Attention to colostomy (HCC) Attention to colostomy [facility] Diagnosis Ovarian cancer on left (HCC) Malignant neoplasm of ovary Preop examination Preoperative examination, unspecified Platelets decreased (HCC) Thrombocytopenia, unspecified Severe protein-calorie malnutrition (HCC) Other severe protein-calorie malnutrition 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, involving unspecified site (HCC) Chronic hypertension Preop examination- Primary Preoperative examination, unspecified Attention to colostomy (HCC) Attention to colostomy 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, involving unspecified site (HCC) Platelets decreased (HCC) Thrombocytopenia, unspecified 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 Chronic hypertension Attention to colostomy (HCC)- Primary Attention to colostomy Attention to colostomy (HCC) Attention to colostomy [facility] Diagnosis Ovarian cancer on left (HCC) Malignant neoplasm of ovary Preop examination Preoperative examination, unspecified Platelets decreased (HCC) Thrombocytopenia, unspecified Severe protein-calorie malnutrition (HCC) Other severe protein-calorie malnutrition 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, involving unspecified site (HCC) Chronic hypertension Preop examination- Primary Preoperative examination, unspecified Attention to colostomy (HCC) Attention to colostomy 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, involving unspecified site (HCC) Platelets decreased (HCC) Thrombocytopenia, unspecified 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 Chronic hypertension Ovarian cancer, bilateral (HCC)- Primary Attention to colostomy (HCC) Attention to colostomy [facility] Diagnosis Ovarian cancer on left (HCC) Malignant neoplasm of ovary Preop examination Preoperative examination, unspecified Platelets decreased (HCC) Thrombocytopenia, unspecified Severe protein-calorie malnutrition (HCC) Other severe protein-calorie malnutrition 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, involving unspecified site (HCC) Chronic hypertension Preop examination- Primary Preoperative examination, unspecified Attention to colostomy (HCC) Attention to colostomy 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, involving unspecified site (HCC) Platelets decreased (HCC) Thrombocytopenia, unspecified 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 Chronic hypertension Attention to colostomy (HCC) Attention to colostomy Attention to colostomy (HCC) Attention to colostomy [facility] Diagnosis Ovarian cancer on left (HCC) Malignant neoplasm of ovary Preop examination Preoperative examination, unspecified Platelets decreased (HCC) Thrombocytopenia, unspecified Severe protein-calorie malnutrition (HCC) Other severe protein-calorie malnutrition 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, involving unspecified site (HCC) Chronic hypertension Preop examination- Primary Preoperative examination, unspecified Attention to colostomy (HCC) Attention to colostomy 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, involving unspecified site (HCC) Platelets decreased (HCC) Thrombocytopenia, unspecified 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 Chronic hypertension Ovarian cancer, bilateral (HCC)- Primary BRIP1 gene mutation positive Attention to colostomy (HCC) Attention to colostomy Attention to colostomy (HCC) Attention to colostomy [facility] Diagnosis Ovarian cancer on left (HCC) Malignant neoplasm of ovary Preop examination Preoperative examination, unspecified Platelets decreased (HCC) Thrombocytopenia, unspecified Severe protein-calorie malnutrition (HCC) Other severe protein-calorie malnutrition 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, involving unspecified site (HCC) Chronic hypertension Preop examination- Primary Preoperative examination, unspecified Attention to colostomy (HCC) Attention to colostomy 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, involving unspecified site (HCC) Platelets decreased (HCC) Thrombocytopenia, unspecified 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 Chronic hypertension Preop examination- Primary Preoperative examination, unspecified Chronic hypertension Attention to colostomy (HCC) Attention to colostomy 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 Platelets decreased (HCC) Thrombocytopenia, unspecified 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, involving unspecified site (HCC) Gastroesophageal reflux disease, unspecified whether esophagitis present Attention to colostomy (HCC) Attention to colostomy * Assessment & Plan Note - Mulugeta Valerio, MATERIALS MANAGEMENT MANAGER.[facility] - 08/27/2024 10:53 AM EST Associated Problem(s): GERD (gastroesophageal reflux disease) PPI take morning of surgery * Assessment & Plan Note - Mulugeta Valerio APRN.CNP - 08/27/2024 7:44 AM EST Associated Problem(s): Rheumatoid arthritis without rheumatoid factor, unspecified site (HCC) Mild per patient * Assessment & Plan Note - Mulugeta Valerio APRN.CNP - 08/27/2024 7:43 AM EST Associated Problem(s): Platelets decreased (HCC) Platelet Count 150 - 400 k/uL 175 114 Low [address] Mccoy * Assessment & Plan Note - Mulugeta Valerio APRN.CNP - 08/27/2024 7:43 AM EST Associated Problem(s): 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 chemotherapy H&H 9.3/27.5 August 03, 2023 CBC pending * Assessment & Plan Note - Mulugeta Valerio APRN.CNP - 08/27/2024 7:42 AM EST Associated Problem(s): Attention to colostomy (HCC) Surgery scheduled for September 04, 2024 * Assessment & Plan Note - Mulugeta Valerio APRN.CNP - 08/27/2024 7:37 AM EST Associated Problem(s): Chronic hypertension Lisinopril hydrochlorothiazide instructed to hold day of surgery Patient states it is always elevated at doctor visits * Assessment & Plan Note - Mulugeta Valerio APRN.CNP - 08/27/2024 7:36 AM EST Associated Problem(s): Preop examination Patient has the following medical conditions which may affect leslie-operative course addressed in assessment and plan today. 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, involving unspecified site (HCC) Chronic hypertension Preop examination- Primary Preoperative examination, unspecified Attention to colostomy (HCC) Attention to colostomy 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, involving unspecified site (HCC) Platelets decreased (HCC) Thrombocytopenia, unspecified 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 Chronic hypertension Preop examination- Primary Preoperative examination, unspecified Chronic hypertension Attention to colostomy (HCC) Attention to colostomy 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 Platelets decreased (HCC) Thrombocytopenia, unspecified 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, involving unspecified site (HCC) Gastroesophageal reflux disease, unspecified whether esophagitis present Ovarian cancer on left (HCC)- Primary Malignant neoplasm of ovary Ovarian cancer, bilateral (HCC) 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 Thrombocytopenia (HCC) Thrombocytopenia, unspecified Platelets decreased (HCC) Thrombocytopenia, unspecified Anemia, unspecified type Attention to colostomy (HCC) Attention to colostomy 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, involving unspecified site (HCC) Chronic hypertension Preop examination- Primary Preoperative examination, unspecified Attention to colostomy (HCC) Attention to colostomy 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, involving unspecified site (HCC) Platelets decreased (HCC) Thrombocytopenia, unspecified 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 Chronic hypertension Preop examination- Primary Preoperative examination, unspecified Chronic hypertension Attention to colostomy (HCC) Attention to colostomy 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 Platelets decreased (HCC) Thrombocytopenia, unspecified 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, involving unspecified site (HCC) Gastroesophageal reflux disease, unspecified whether esophagitis present Ovarian cancer, bilateral (HCC) BRIP1 gene mutation positive Attention to colostomy (HCC) Attention to colostomy [facility] Diagnosis Ovarian cancer on left (HCC) Malignant neoplasm of ovary Preop examination Preoperative examination, unspecified Platelets decreased (HCC) Thrombocytopenia, unspecified Severe protein-calorie malnutrition (HCC) Other severe protein-calorie malnutrition 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, involving unspecified site (HCC) Chronic hypertension Preop examination- Primary Preoperative examination, unspecified Attention to colostomy (HCC) Attention to colostomy 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, involving unspecified site (HCC) Platelets decreased (HCC) Thrombocytopenia, unspecified 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 Chronic hypertension Preop examination- Primary Preoperative examination, unspecified Chronic hypertension Attention to colostomy (HCC) Attention to colostomy 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 Platelets decreased (HCC) Thrombocytopenia, unspecified 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, involving unspecified site (HCC) Gastroesophageal reflux disease, unspecified whether esophagitis present Ovarian cancer, bilateral (HCC)- Primary [facility] Diagnosis Ovarian cancer on left (HCC) Malignant neoplasm of ovary Preop examination Preoperative examination, unspecified Platelets decreased (HCC) Thrombocytopenia, unspecified Severe protein-calorie malnutrition (HCC) Other severe protein-calorie malnutrition 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, involving unspecified site (HCC) Chronic hypertension Preop examination- Primary Preoperative examination, unspecified Attention to colostomy (HCC) Attention to colostomy 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, involving unspecified site (HCC) Platelets decreased (HCC) Thrombocytopenia, unspecified 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 Chronic hypertension Preop examination- Primary Preoperative examination, unspecified Chronic hypertension Attention to colostomy (HCC) Attention to colostomy 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 Platelets decreased (HCC) Thrombocytopenia, unspecified 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, involving unspecified site (HCC) Gastroesophageal reflux disease, unspecified whether esophagitis present Ovarian cancer on left (HCC) Malignant neoplasm of ovary Ovarian cancer, bilateral (HCC) 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 Thrombocytopenia (HCC) Thrombocytopenia, unspecified Platelets decreased (HCC) Thrombocytopenia, unspecified Anemia, unspecified type [facility] Diagnosis Ovarian cancer on left (HCC) Malignant neoplasm of ovary Preop examination Preoperative examination, unspecified Platelets decreased (HCC) Thrombocytopenia, unspecified Severe protein-calorie malnutrition (HCC) Other severe protein-calorie malnutrition 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, involving unspecified site (HCC) Chronic hypertension Preop examination- Primary Preoperative examination, unspecified Attention to colostomy (HCC) Attention to colostomy 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, involving unspecified site (HCC) Platelets decreased (HCC) Thrombocytopenia, unspecified 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 Chronic hypertension Preop examination- Primary Preoperative examination, unspecified Chronic hypertension Attention to colostomy (HCC) Attention to colostomy 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 Platelets decreased (HCC) Thrombocytopenia, unspecified 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, involving unspecified site (HCC) Gastroesophageal reflux disease, unspecified whether esophagitis present Combined forms of age-related cataract, bilateral- Primary Glaucoma suspect of left eye Preglaucoma, unspecified Myopia, bilateral Myopia Regular astigmatism of both eyes Regular astigmatism Presbyopia Vitreous floaters of both eyes documented in this encounter [facility] note* Diagnosis Ovarian cancer on left (HCC) Malignant neoplasm of ovary Preop examination Preoperative examination, unspecified Platelets decreased Thrombocytopenia, unspecified Severe protein-calorie malnutrition (HCC) Other severe protein-calorie malnutrition 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, involving unspecified site (HCC) Chronic hypertension Preop examination- Primary Preoperative examination, unspecified Attention to colostomy (HCC) Attention to colostomy 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, involving unspecified site (HCC) Platelets decreased Thrombocytopenia, unspecified 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 Chronic hypertension Preop examination- Primary Preoperative examination, unspecified Chronic hypertension Attention to colostomy (HCC) Attention to colostomy 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 Platelets decreased Thrombocytopenia, unspecified 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, involving unspecified site (HCC) Gastroesophageal reflux disease, unspecified whether esophagitis present Ovarian cancer, bilateral (HCC)- Primary documented in this encounter [facility] note* Diagnosis Ovarian cancer on left (HCC) Malignant neoplasm of ovary Preop examination Preoperative examination, unspecified Platelets decreased Thrombocytopenia, unspecified Severe protein-calorie malnutrition (HCC) Other severe protein-calorie malnutrition 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, involving unspecified site (HCC) Chronic hypertension Preop examination- Primary Preoperative examination, unspecified Attention to colostomy (HCC) Attention to colostomy 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, involving unspecified site (HCC) Platelets decreased Thrombocytopenia, unspecified 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 Chronic hypertension Preop examination- Primary Preoperative examination, unspecified Chronic hypertension Attention to colostomy (HCC) Attention to colostomy 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 Platelets decreased Thrombocytopenia, unspecified 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, involving unspecified site (HCC) Gastroesophageal reflux disease, unspecified whether esophagitis present Ovarian cancer on left (HCC)- Primary Malignant neoplasm of ovary 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 [facility] Diagnosis Ovarian cancer on left (HCC) Malignant neoplasm of ovary Preop examination Preoperative examination, unspecified Platelets decreased Thrombocytopenia, unspecified Severe protein-calorie malnutrition (HCC) Other severe protein-calorie malnutrition 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, involving unspecified site (HCC) Chronic hypertension Preop examination- Primary Preoperative examination, unspecified Attention to colostomy (HCC) Attention to colostomy 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, involving unspecified site (HCC) Platelets decreased Thrombocytopenia, unspecified 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 Chronic hypertension Preop examination- Primary Preoperative examination, unspecified Chronic hypertension Attention to colostomy (HCC) Attention to colostomy 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 Platelets decreased Thrombocytopenia, unspecified 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, involving unspecified site (HCC) Gastroesophageal reflux disease, unspecified whether esophagitis present Ovarian cancer on left (HCC) Malignant neoplasm of ovary Ovarian cancer, bilateral (HCC) 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 Thrombocytopenia Thrombocytopenia, unspecified Platelets decreased Thrombocytopenia, unspecified Anemia, unspecified type documented in this encounter [facility] note* Diagnosis Ovarian cancer on left (HCC) Malignant neoplasm of ovary Preop examination Preoperative examination, unspecified Platelets decreased Thrombocytopenia, unspecified Severe protein-calorie malnutrition (HCC) Other severe protein-calorie malnutrition 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, involving unspecified site (HCC) Chronic hypertension Preop examination- Primary Preoperative examination, unspecified Attention to colostomy (HCC) Attention to colostomy 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, involving unspecified site (HCC) Platelets decreased Thrombocytopenia, unspecified 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 Chronic hypertension Preop examination- Primary Preoperative examination, unspecified Chronic hypertension Attention to colostomy (HCC) Attention to colostomy 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 Platelets decreased Thrombocytopenia, unspecified 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, involving unspecified site (HCC) Gastroesophageal reflux disease, unspecified whether esophagitis present Ovarian cancer, bilateral (HCC) documented in this encounter [facility] note* Diagnosis Ovarian cancer on left (HCC) Malignant neoplasm of ovary Preop examination Preoperative examination, unspecified Platelets decreased Thrombocytopenia, unspecified Severe protein-calorie malnutrition (HCC) Other severe protein-calorie malnutrition 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, involving unspecified site (HCC) Chronic hypertension Preop examination- Primary Preoperative examination, unspecified Attention to colostomy (HCC) Attention to colostomy 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, involving unspecified site (HCC) Platelets decreased Thrombocytopenia, unspecified 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 Chronic hypertension Preop examination- Primary Preoperative examination, unspecified Chronic hypertension Attention to colostomy (HCC) Attention to colostomy 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 Platelets decreased Thrombocytopenia, unspecified 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, involving unspecified site (HCC) Gastroesophageal reflux disease, unspecified whether esophagitis present Ovarian cancer on left (HCC) Malignant neoplasm of ovary Ovarian cancer, bilateral (HCC) 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 Thrombocytopenia Thrombocytopenia, unspecified Platelets decreased Thrombocytopenia, unspecified Anemia, unspecified type documented in this encounter [facility] note* Diagnosis Ovarian cancer on left (HCC) Malignant neoplasm of ovary Preop examination Preoperative examination, unspecified Platelets decreased Thrombocytopenia, unspecified Severe protein-calorie malnutrition (HCC) Other severe protein-calorie malnutrition 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, involving unspecified site (HCC) Chronic hypertension Preop examination- Primary Preoperative examination, unspecified Attention to colostomy (HCC) Attention to colostomy 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, involving unspecified site (HCC) Platelets decreased Thrombocytopenia, unspecified 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 Chronic hypertension Preop examination- Primary Preoperative examination, unspecified Chronic hypertension Attention to colostomy (HCC) Attention to colostomy 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 Platelets decreased Thrombocytopenia, unspecified 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, involving unspecified site (HCC) Gastroesophageal reflux disease, unspecified whether esophagitis present Ovarian cancer, bilateral (HCC)- Primary BRIP1 gene mutation positive [facility] Diagnosis Ovarian cancer on left (HCC) Malignant neoplasm of ovary Preop examination Preoperative examination, unspecified Platelets decreased Thrombocytopenia, unspecified Severe protein-calorie malnutrition (HCC) Other severe protein-calorie malnutrition 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, involving unspecified site (HCC) Chronic hypertension Preop examination- Primary Preoperative examination, unspecified Attention to colostomy (HCC) Attention to colostomy 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, involving unspecified site (HCC) Platelets decreased Thrombocytopenia, unspecified 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 Chronic hypertension Preop examination- Primary Preoperative examination, unspecified Chronic hypertension Attention to colostomy (HCC) Attention to colostomy 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 Platelets decreased Thrombocytopenia, unspecified 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, involving unspecified site (HCC) Gastroesophageal reflux disease, unspecified whether esophagitis present Ovarian cancer, bilateral (HCC)- Primary [facility] Diagnosis Ovarian cancer on left (HCC) Malignant neoplasm of ovary Preop examination Preoperative examination, unspecified Platelets decreased Thrombocytopenia, unspecified Severe protein-calorie malnutrition (HCC) Other severe protein-calorie malnutrition 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, involving unspecified site (HCC) Chronic hypertension Preop examination- Primary Preoperative examination, unspecified Attention to colostomy (HCC) Attention to colostomy 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, involving unspecified site (HCC) Platelets decreased Thrombocytopenia, unspecified 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 Chronic hypertension Preop examination- Primary Preoperative examination, unspecified Chronic hypertension Attention to colostomy (HCC) Attention to colostomy 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 Platelets decreased Thrombocytopenia, unspecified 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, involving unspecified site (HCC) Gastroesophageal reflux disease, unspecified whether esophagitis present Ovarian cancer on left (HCC)- Primary Malignant neoplasm of ovary Ovarian cancer, bilateral (HCC) 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 Thrombocytopenia Thrombocytopenia, unspecified Platelets decreased Thrombocytopenia, unspecified Anemia, unspecified type documented in this encounter [facility] note* Diagnosis Ovarian cancer on left (HCC) Malignant neoplasm of ovary Preop examination Preoperative examination, unspecified Platelets decreased Thrombocytopenia, unspecified Severe protein-calorie malnutrition (HCC) Other severe protein-calorie malnutrition 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, involving unspecified site (HCC) Chronic hypertension Preop examination- Primary Preoperative examination, unspecified Attention to colostomy (HCC) Attention to colostomy 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, involving unspecified site (HCC) Platelets decreased Thrombocytopenia, unspecified 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 Chronic hypertension Preop examination- Primary Preoperative examination, unspecified Chronic hypertension Attention to colostomy (HCC) Attention to colostomy 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 Platelets decreased Thrombocytopenia, unspecified 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, involving unspecified site (HCC) Gastroesophageal reflux disease, unspecified whether esophagitis present Ovarian cancer, bilateral (HCC)- Primary documented in this encounter [facility] note* Diagnosis Ovarian cancer on left (HCC) Malignant neoplasm of ovary Preop examination Preoperative examination, unspecified Platelets decreased Thrombocytopenia, unspecified Severe protein-calorie malnutrition (HCC) Other severe protein-calorie malnutrition 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, involving unspecified site (HCC) Chronic hypertension Preop examination- Primary Preoperative examination, unspecified Attention to colostomy (HCC) Attention to colostomy 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, involving unspecified site (HCC) Platelets decreased Thrombocytopenia, unspecified 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 Chronic hypertension Preop examination- Primary Preoperative examination, unspecified Chronic hypertension Attention to colostomy (HCC) Attention to colostomy 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 Platelets decreased Thrombocytopenia, unspecified 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, involving unspecified site (HCC) Gastroesophageal reflux disease, unspecified whether esophagitis present Ovarian cancer on left (HCC)- Primary Malignant neoplasm of ovary Ovarian cancer, bilateral (HCC) Anemia, unspecified type 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 documented in this encounter [facility] note* Diagnosis Ovarian cancer on left (HCC) Malignant neoplasm of ovary Preop examination Preoperative examination, unspecified Platelets decreased Thrombocytopenia, unspecified Severe protein-calorie malnutrition (HCC) Other severe protein-calorie malnutrition 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, involving unspecified site (HCC) Chronic hypertension Preop examination- Primary Preoperative examination, unspecified Attention to colostomy (HCC) Attention to colostomy 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, involving unspecified site (HCC) Platelets decreased Thrombocytopenia, unspecified 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 Chronic hypertension Preop examination- Primary Preoperative examination, unspecified Chronic hypertension Attention to colostomy (HCC) Attention to colostomy 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 Platelets decreased Thrombocytopenia, unspecified 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, involving unspecified site (HCC) Gastroesophageal reflux disease, unspecified whether esophagitis present Ovarian cancer on left (HCC)- Primary Malignant neoplasm of ovary Anemia, unspecified type documented in this encounter [facility] note* Diagnosis Ovarian cancer on left (HCC) Malignant neoplasm of ovary Preop examination Preoperative examination, unspecified Platelets decreased Thrombocytopenia, unspecified Severe protein-calorie malnutrition (HCC) Other severe protein-calorie malnutrition 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, involving unspecified site (HCC) Chronic hypertension Preop examination- Primary Preoperative examination, unspecified Attention to colostomy (HCC) Attention to colostomy 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, involving unspecified site (HCC) Platelets decreased Thrombocytopenia, unspecified 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 Chronic hypertension Preop examination- Primary Preoperative examination, unspecified Chronic hypertension Attention to colostomy (HCC) Attention to colostomy 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 Platelets decreased Thrombocytopenia, unspecified 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, involving unspecified site (HCC) Gastroesophageal reflux disease, unspecified whether esophagitis present Anemia in stage 3a chronic kidney disease (HCC)- Primary Iron malabsorption (HCC) Other specified intestinal malabsorption Ovarian cancer on left (HCC) Malignant neoplasm of ovary [facility] Diagnosis Ovarian cancer on left (HCC) Malignant neoplasm of ovary Preop examination Preoperative examination, unspecified Platelets decreased Thrombocytopenia, unspecified Severe protein-calorie malnutrition (HCC) Other severe protein-calorie malnutrition 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, involving unspecified site (HCC) Chronic hypertension Preop examination- Primary Preoperative examination, unspecified Attention to colostomy (HCC) Attention to colostomy 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, involving unspecified site (HCC) Platelets decreased Thrombocytopenia, unspecified 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 Chronic hypertension Preop examination- Primary Preoperative examination, unspecified Chronic hypertension Attention to colostomy (HCC) Attention to colostomy 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 Platelets decreased Thrombocytopenia, unspecified 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, involving unspecified site (HCC) Gastroesophageal reflux disease, unspecified whether esophagitis present Ovarian cancer, bilateral (HCC)- Primary [facility] Diagnosis Ovarian cancer on left (HCC) Malignant neoplasm of ovary Preop examination Preoperative examination, unspecified Platelets decreased Thrombocytopenia, unspecified Severe protein-calorie malnutrition (HCC) Other severe protein-calorie malnutrition 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, involving unspecified site (HCC) Chronic hypertension Preop examination- Primary Preoperative examination, unspecified Attention to colostomy (HCC) Attention to colostomy 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, involving unspecified site (HCC) Platelets decreased Thrombocytopenia, unspecified 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 Chronic hypertension Preop examination- Primary Preoperative examination, unspecified Chronic hypertension Attention to colostomy (HCC) Attention to colostomy 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 Platelets decreased Thrombocytopenia, unspecified 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, involving unspecified site (HCC) Gastroesophageal reflux disease, unspecified whether esophagitis present Iron malabsorption (HCC)- Primary Other specified intestinal malabsorption Anemia in stage 3a chronic kidney disease (HCC) Ovarian cancer on left (HCC) Malignant neoplasm of ovary [facility] Diagnosis Ovarian cancer on left (HCC) Malignant neoplasm of ovary Preop examination Preoperative examination, unspecified Platelets decreased Thrombocytopenia, unspecified Severe protein-calorie malnutrition (HCC) Other severe protein-calorie malnutrition 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, involving unspecified site (HCC) Chronic hypertension Preop examination- Primary Preoperative examination, unspecified Attention to colostomy (HCC) Attention to colostomy 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, involving unspecified site (HCC) Platelets decreased Thrombocytopenia, unspecified 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 Chronic hypertension Preop examination- Primary Preoperative examination, unspecified Chronic hypertension Attention to colostomy (HCC) Attention to colostomy 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 Platelets decreased Thrombocytopenia, unspecified 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, involving unspecified site (HCC) Gastroesophageal reflux disease, unspecified whether esophagitis present Iron malabsorption (HCC)- Primary Other specified intestinal malabsorption Anemia in stage 3a chronic kidney disease (HCC) Ovarian cancer on left (HCC) Malignant neoplasm of ovary [facility] Diagnosis Ovarian cancer on left (HCC) Malignant neoplasm of ovary Preop examination Preoperative examination, unspecified Platelets decreased Thrombocytopenia, unspecified Severe protein-calorie malnutrition (HCC) Other severe protein-calorie malnutrition 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, involving unspecified site (HCC) Chronic hypertension Preop examination- Primary Preoperative examination, unspecified Attention to colostomy (HCC) Attention to colostomy 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, involving unspecified site (HCC) Platelets decreased Thrombocytopenia, unspecified 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 Chronic hypertension Preop examination- Primary Preoperative examination, unspecified Chronic hypertension Attention to colostomy (HCC) Attention to colostomy 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 Platelets decreased Thrombocytopenia, unspecified 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, involving unspecified site (HCC) Gastroesophageal reflux disease, unspecified whether esophagitis present Iron malabsorption (HCC)- Primary Other specified intestinal malabsorption Anemia, unspecified type Ovarian cancer on left (HCC) Malignant neoplasm of ovary [facility] Diagnosis Ovarian cancer on left (HCC) Malignant neoplasm of ovary Preop examination Preoperative examination, unspecified Platelets decreased Thrombocytopenia, unspecified Severe protein-calorie malnutrition (HCC) Other severe protein-calorie malnutrition 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, involving unspecified site (HCC) Chronic hypertension Preop examination- Primary Preoperative examination, unspecified Attention to colostomy (HCC) Attention to colostomy 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, involving unspecified site (HCC) Platelets decreased Thrombocytopenia, unspecified 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 Chronic hypertension Preop examination- Primary Preoperative examination, unspecified Chronic hypertension Attention to colostomy (HCC) Attention to colostomy 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 Platelets decreased Thrombocytopenia, unspecified 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, involving unspecified site (HCC) Gastroesophageal reflux disease, unspecified whether esophagitis present Iron malabsorption (HCC)- Primary Other specified intestinal malabsorption Ovarian cancer, bilateral (HCC) Anemia, unspecified type Ovarian cancer on left (HCC) Malignant neoplasm of ovary [facility] Diagnosis Ovarian cancer on left (HCC) Malignant neoplasm of ovary Preop examination Preoperative examination, unspecified Platelets decreased Thrombocytopenia, unspecified Severe protein-calorie malnutrition (HCC) Other severe protein-calorie malnutrition 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, involving unspecified site (HCC) Chronic hypertension Preop examination- Primary Preoperative examination, unspecified Attention to colostomy (HCC) Attention to colostomy 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, involving unspecified site (HCC) Platelets decreased Thrombocytopenia, unspecified 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 Chronic hypertension Preop examination- Primary Preoperative examination, unspecified Chronic hypertension Attention to colostomy (HCC) Attention to colostomy 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 Platelets decreased Thrombocytopenia, unspecified 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, involving unspecified site (HCC) Gastroesophageal reflux disease, unspecified whether esophagitis present Ovarian cancer, bilateral (HCC)- [facility] Diagnosis Ovarian cancer on left (HCC) Malignant neoplasm of ovary Preop examination Preoperative examination, unspecified Platelets decreased Thrombocytopenia, unspecified Severe protein-calorie malnutrition (HCC) Other severe protein-calorie malnutrition 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, involving unspecified site (HCC) Chronic hypertension Preop examination- Primary Preoperative examination, unspecified Attention to colostomy (HCC) Attention to colostomy 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, involving unspecified site (HCC) Platelets decreased Thrombocytopenia, unspecified 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 Chronic hypertension Preop examination- Primary Preoperative examination, unspecified Chronic hypertension Attention to colostomy (HCC) Attention to colostomy 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 Platelets decreased Thrombocytopenia, unspecified 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, involving unspecified site (HCC) Gastroesophageal reflux disease, unspecified whether esophagitis present Ovarian cancer on left (HCC)- Primary Malignant neoplasm of ovary [facility] Diagnosis Ovarian cancer on left (HCC) Malignant neoplasm of ovary Preop examination Preoperative examination, unspecified Platelets decreased Thrombocytopenia, unspecified Severe protein-calorie malnutrition (HCC) Other severe protein-calorie malnutrition 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, involving unspecified site (HCC) Chronic hypertension Preop examination- Primary Preoperative examination, unspecified Attention to colostomy (HCC) Attention to colostomy 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, involving unspecified site (HCC) Platelets decreased Thrombocytopenia, unspecified 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 Chronic hypertension Preop examination- Primary Preoperative examination, unspecified Chronic hypertension Attention to colostomy (HCC) Attention to colostomy 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 Platelets decreased Thrombocytopenia, unspecified 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, involving unspecified site (HCC) Gastroesophageal reflux disease, unspecified whether esophagitis present Ovarian cancer, bilateral (HCC) [facility] Diagnosis Ovarian cancer on left (HCC) Malignant neoplasm of ovary Preop examination Preoperative examination, unspecified Platelets decreased Thrombocytopenia, unspecified Severe protein-calorie malnutrition (HCC) Other severe protein-calorie malnutrition 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, involving unspecified site (HCC) Chronic hypertension Preop examination- Primary Preoperative examination, unspecified Attention to colostomy (HCC) Attention to colostomy 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, involving unspecified site (HCC) Platelets decreased Thrombocytopenia, unspecified 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 Chronic hypertension Preop examination- Primary Preoperative examination, unspecified Chronic hypertension Attention to colostomy (HCC) Attention to colostomy 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 Platelets decreased Thrombocytopenia, unspecified 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, involving unspecified site (HCC) Gastroesophageal reflux disease, unspecified whether esophagitis present Ovarian cancer on left (HCC)- Primary Malignant neoplasm of ovary Anemia, unspecified type documented in this encounter [facility] note* Diagnosis Ovarian cancer on left (HCC) Malignant neoplasm of ovary Preop examination Preoperative examination, unspecified Platelets decreased Thrombocytopenia, unspecified Severe protein-calorie malnutrition (HCC) Other severe protein-calorie malnutrition 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, involving unspecified site (HCC) Chronic hypertension Preop examination- Primary Preoperative examination, unspecified Attention to colostomy (HCC) Attention to colostomy 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, involving unspecified site (HCC) Platelets decreased Thrombocytopenia, unspecified 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 Chronic hypertension Preop examination- Primary Preoperative examination, unspecified Chronic hypertension Attention to colostomy (HCC) Attention to colostomy 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 Platelets decreased Thrombocytopenia, unspecified 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, involving unspecified site (HCC) Gastroesophageal reflux disease, unspecified whether esophagitis present Ovarian cancer on left (HCC)- Primary Malignant neoplasm of ovary Anemia, unspecified type [facility] Diagnosis Ovarian cancer on left (HCC) Malignant neoplasm of ovary Preop examination Preoperative examination, unspecified Platelets decreased Thrombocytopenia, unspecified Severe protein-calorie malnutrition (HCC) Other severe protein-calorie malnutrition 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, involving unspecified site (HCC) Chronic hypertension Preop examination- Primary Preoperative examination, unspecified Attention to colostomy (HCC) Attention to colostomy 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, involving unspecified site (HCC) Platelets decreased Thrombocytopenia, unspecified 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 Chronic hypertension Preop examination- Primary Preoperative examination, unspecified Chronic hypertension Attention to colostomy (HCC) Attention to colostomy 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 Platelets decreased Thrombocytopenia, unspecified 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, involving unspecified site (HCC) Gastroesophageal reflux disease, unspecified whether esophagitis present Ovarian cancer on left (HCC)- Primary Malignant neoplasm of ovary Microcytic anemia Iron deficiency anemia, unspecified [facility] Diagnosis Ovarian cancer on left (HCC) Malignant neoplasm of ovary Preop examination Preoperative examination, unspecified Platelets decreased Thrombocytopenia, unspecified Severe protein-calorie malnutrition (HCC) Other severe protein-calorie malnutrition 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, involving unspecified site (HCC) Chronic hypertension Preop examination- Primary Preoperative examination, unspecified Attention to colostomy (HCC) Attention to colostomy 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, involving unspecified site (HCC) Platelets decreased Thrombocytopenia, unspecified 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 Chronic hypertension Preop examination- Primary Preoperative examination, unspecified Chronic hypertension Attention to colostomy (HCC) Attention to colostomy 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 Platelets decreased Thrombocytopenia, unspecified 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, involving unspecified site (HCC) Gastroesophageal reflux disease, unspecified whether esophagitis present Microcytic anemia- Primary Iron deficiency anemia, unspecified [facility] Diagnosis Ovarian cancer on left (HCC) Malignant neoplasm of ovary Preop examination Preoperative examination, unspecified Platelets decreased Thrombocytopenia, unspecified Severe protein-calorie malnutrition (HCC) Other severe protein-calorie malnutrition 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, involving unspecified site (HCC) Chronic hypertension Preop examination- Primary Preoperative examination, unspecified Attention to colostomy (HCC) Attention to colostomy 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, involving unspecified site (HCC) Platelets decreased Thrombocytopenia, unspecified 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 Chronic hypertension Preop examination- Primary Preoperative examination, unspecified Chronic hypertension Attention to colostomy (HCC) Attention to colostomy 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 Platelets decreased Thrombocytopenia, unspecified 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, involving unspecified site (HCC) Gastroesophageal reflux disease, unspecified whether esophagitis present Ovarian cancer on left (HCC)- Primary Malignant neoplasm of ovary 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) [facility] Diagnosis Ovarian cancer on left (HCC) Malignant neoplasm of ovary Preop examination Preoperative examination, unspecified Platelets decreased Thrombocytopenia, unspecified Severe protein-calorie malnutrition (HCC) Other severe protein-calorie malnutrition 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, involving unspecified site (HCC) Chronic hypertension Preop examination- Primary Preoperative examination, unspecified Attention to colostomy (HCC) Attention to colostomy 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, involving unspecified site (HCC) Platelets decreased Thrombocytopenia, unspecified 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 Chronic hypertension Preop examination- Primary Preoperative examination, unspecified Chronic hypertension Attention to colostomy (HCC) Attention to colostomy 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 Platelets decreased Thrombocytopenia, unspecified 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, involving unspecified site (HCC) Gastroesophageal reflux disease, unspecified whether esophagitis present Ovarian cancer, bilateral (HCC)- Primary [facility] Diagnosis Ovarian cancer on left (HCC) Malignant neoplasm of ovary Preop examination Preoperative examination, unspecified Platelets decreased Thrombocytopenia, unspecified Severe protein-calorie malnutrition (HCC) Other severe protein-calorie malnutrition 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, involving unspecified site (HCC) Chronic hypertension Preop examination- Primary Preoperative examination, unspecified Attention to colostomy (HCC) Attention to colostomy 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, involving unspecified site (HCC) Platelets decreased Thrombocytopenia, unspecified 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 Chronic hypertension Preop examination- Primary Preoperative examination, unspecified Chronic hypertension Attention to colostomy (HCC) Attention to colostomy 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 Platelets decreased Thrombocytopenia, unspecified 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, involving unspecified site (HCC) Gastroesophageal reflux disease, unspecified whether esophagitis present Ovarian cancer on left (HCC) Malignant neoplasm of ovary 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) Anemia, unspecified type [facility] Diagnosis Ovarian cancer on left (HCC) Malignant neoplasm of ovary Preop examination Preoperative examination, unspecified Platelets decreased Thrombocytopenia, unspecified Severe protein-calorie malnutrition (HCC) Other severe protein-calorie malnutrition 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, involving unspecified site (HCC) Chronic hypertension Preop examination- Primary Preoperative examination, unspecified Attention to colostomy (HCC) Attention to colostomy 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, involving unspecified site (HCC) Platelets decreased Thrombocytopenia, unspecified 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 Chronic hypertension Preop examination- Primary Preoperative examination, unspecified Chronic hypertension Attention to colostomy (HCC) Attention to colostomy 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 Platelets decreased Thrombocytopenia, unspecified 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, involving unspecified site (HCC) Gastroesophageal reflux disease, unspecified whether esophagitis present Encounter for education- Primary Counseling NOS [facility] Diagnosis Ovarian cancer on left (HCC) Malignant neoplasm of ovary Preop examination Preoperative examination, unspecified Platelets decreased Thrombocytopenia, unspecified Severe protein-calorie malnutrition (HCC) Other severe protein-calorie malnutrition 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, involving unspecified site (HCC) Chronic hypertension Preop examination- Primary Preoperative examination, unspecified Attention to colostomy (HCC) Attention to colostomy 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, involving unspecified site (HCC) Platelets decreased Thrombocytopenia, unspecified 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 Chronic hypertension Preop examination- Primary Preoperative examination, unspecified Chronic hypertension Attention to colostomy (HCC) Attention to colostomy 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 Platelets decreased Thrombocytopenia, unspecified 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, involving unspecified site (HCC) Gastroesophageal reflux disease, unspecified whether esophagitis present Ovarian cancer on left (HCC) Malignant neoplasm of ovary [facility] Diagnosis Ovarian cancer on left (HCC) Malignant neoplasm of ovary Preop examination Preoperative examination, unspecified Platelets decreased Thrombocytopenia, unspecified Severe protein-calorie malnutrition (HCC) Other severe protein-calorie malnutrition 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, involving unspecified site (HCC) Chronic hypertension Preop examination- Primary Preoperative examination, unspecified Attention to colostomy (HCC) Attention to colostomy 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, involving unspecified site (HCC) Platelets decreased Thrombocytopenia, unspecified 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 Chronic hypertension Preop examination- Primary Preoperative examination, unspecified Chronic hypertension Attention to colostomy (HCC) Attention to colostomy 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 Platelets decreased Thrombocytopenia, unspecified 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, involving unspecified site (HCC) Gastroesophageal reflux disease, unspecified whether esophagitis present Ovarian cancer on left (HCC) Malignant neoplasm of ovary 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) Anemia, unspecified type [facility] Diagnosis Ovarian cancer on left (HCC) Malignant neoplasm of ovary Preop examination Preoperative examination, unspecified Platelets decreased Thrombocytopenia, unspecified Severe protein-calorie malnutrition (HCC) Other severe protein-calorie malnutrition 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, involving unspecified site (HCC) Chronic hypertension Preop examination- Primary Preoperative examination, unspecified Attention to colostomy (HCC) Attention to colostomy 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, involving unspecified site (HCC) Platelets decreased Thrombocytopenia, unspecified 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 Chronic hypertension Preop examination- Primary Preoperative examination, unspecified Chronic hypertension Attention to colostomy (HCC) Attention to colostomy 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 Platelets decreased Thrombocytopenia, unspecified 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, involving unspecified site (HCC) Gastroesophageal reflux disease, unspecified whether esophagitis present 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 Ovarian cancer on left (HCC) Malignant neoplasm of ovary documented in this encounter [facility] Discharge instructions Additional Instructions Avoid fatty foods, fried foods, and greasy foods as this may exacerbate your pain.[facility] Work Phone: [facility] (narrative)* Diagnostic Procedure Only (Urgent) - Closed Specialty Diagnoses / Procedures Referred By Tushar harry Referred To Contact US IMAGING Diagnoses Elevated LFTs Procedures US ABD RIGHT UPPER QUADRANT US ABDOMINAL REAL TIME W/IMAGE LIMITED Hiram Mccoy DO [address] [place] [phone] [place] [address] Referral ID Status Reason Start Date Expiration Date V isits Requested Visits Authorized [id number] Closed Auto-Generate d Referral 12/06/2023 01/04/2025 1 1 [facility] for referral (narrative)* Diagnostic Procedure Only (Urgent) - Closed Specialty Diagnoses / Procedures Referred By Tushar t Referred To Contact US IMAGING Diagnoses Elevated LFTs Procedures US ABD RIGHT UPPER QUADRANT US ABDOMINAL REAL TIME W/IMAGE LIMITED Hiram Mccoy DO [address] [place] [address] [place] [address] Referral ID Status Reason Start Date Expiration Date V isits Requested Visits Authorized [id number] Closed Auto-Generate d Referral 12/06/2023 01/04/2025 1 1 [facility] for referral (narrative)* Diagnostic Procedure Only (Routine) - Authorized Specialty Diagnoses / Procedures [facility] To [facility] XR IMAGING Diagnoses Attention to colostomy (HCC) Procedures XR COLON SINGLE CONTRAST RADIOLOGIC EXAM COLON SINGLE CONTRAST STUDY Rohit Miles MD [address] [address] [place] [address] Referral ID Status Reason Start Date Expiration Date Visits Requested Visits Authorized [id number] Authorized Auto-Generat ed Referral 08/10/2024 09/09/2025 1 1 [facility] for referral (narrative)* Diagnostic Procedure Only (Routine) - Closed Specialty Diagnoses / Procedures [facility] Referred To Contact XR IMAGING Diagnoses Attention to colostomy (HCC) Procedures XR COLON SINGLE CONTRAST RADIOLOGIC EXAM COLON SINGLE CONTRAST STUDY Rohit Miles MD [address] [place] [address] [place] [address] Referral ID Status Reason Start Date Expiration Date V isits Requested Visits Authorized [id number] Closed Auto-Generate d Referral 08/10/2024 09/09/2025 1 1 [facility] for visit Narrative* Diagnostic Procedure Only (Routine) - Closed Specialty Diagnoses / Procedures [facility] Referred To Contact XR IMAGING Diagnoses Attention to colostomy (HCC) Procedures XR COLON SINGLE CONTRAST RADIOLOGIC EXAM COLON SINGLE CONTRAST STUDY Rohit Miles MD [address] [place] [address] [place] [address] Referral ID Status Reason Start Date Expiration Date V isits Requested Visits Authorized [id number] Closed Auto-Generate d Referral 08/10/2024 09/09/2025 1 1 [facility] for visit Narrative* MRI/CT (Routine) - Closed Specialty Diagnoses / Procedures [facility] Ref[facility] To Contact CT IMAGING Diagnoses Ovarian cancer, bilateral (HCC) Procedures CT CHEST W IVCON DIAGNOSTIC COMPUTED TOMOGRAPHY THORAX W/CONTRAST Hiram Mccoy, DO [address] [place] [address] Phone: tel: fax: [place] [phone] Referral ID Status Reason Start Date Expiration Date V isits Requested Visits Authorized [id number] Closed Auto-Generate d Referral 02/25/2025 03/27/2026 1 1 [facility] Advance Directives No Advanced Directives Records Found Advance Directive Response Recorded Date/ Time Living Will Yes March 03 6 11:40pm Power of Carpenter/Labor Yes March 03 016 11:40pm Advance Directive Response Recorded Date/ Time Name of Medical Power of Carpenter/Labor clara soriano ti December 02, 2022 5:06am Living Will Yes December 02, 2022 5 :06am Power of Carpenter/Labor Yes December 02, 2022 5:06am Advance Directive Response Recorded Date/ Time Living Will No July 10 023 10:30am Power of Carpenter/Labor No July 10, 2023 10:30am Advance Directive Response Recorded Date/ Time Living Will No July 10 023 11:30am Power of Carpenter/Labor No July 10, 2023 11:30am Documents on File Type Date Recorded 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 Advance Directive(s) 10/28/2023 10:20 AM Documents on File Type Date Recorded 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 Advance Directive(s) 10/28/2023 10:20 AM Medications Administered Section Inactive Administered Medications - up to 3 most recent administrations Medication Order MAR Action Action Date Dose Rate Site PHENYLephrine 2.5 % 1 Drop (AK-DILATE, SAMEER-SYNEPHRINE) 1 Drop, BOTH EYES, DIRECTED, Starting on Tue07/06/22 at 1030, Until Tue07/06/22 at 2228, Administer for dilation PROTECT FROM LIGHT Given 07/06/2022 10:30 AM EST 1 Drop tropicamide 1 % 1 Drop (MYDRIACYL) 1 Drop, BOTH EYES, DIRECTED, Starting on Tue07/06/22 at 1030, Until Tue07/06/22 at 222, Administer for dilation Given 07/06/2022 10:30 AM EST 1 Drop Chief Complaint and Reason for Visit Chief Complaint LLQ PAIN OVARIAN CYST Chief Complaint LLQ PAIN OVARIAN CYST THICKENED ENDOMETRIUM, ref by Dr Emily Casanova Reason for Visit Endometrial thickeni ng on ultrasound Simple ovarian cyst Chief Complaint LLQ PAIN OVARIAN CYST THICKENED ENDOMETRIUM, ref by Dr Emily Casanova flank/ abd pain Reason for Visit Endometrial thickeni ng on ultrasound Simple ovarian cyst Chief Complaint LLQ PAIN OVARIAN CYST THICKENED ENDOMETRIUM, ref by Dr Emily Casanova flank/ abd pain ENDOMETRIAL THICKING Reason for Visit Endometrial thickeni ng on ultrasound Simple ovarian cyst Chief Complaint LLQ PAIN OVARIAN CYST THICKENED ENDOMETRIUM, ref by Dr Emily Casanova flank/ abd pain ENDOMETRIAL THICKING surgical consult for D&C Reason for Visit Endometrial thickeni ng on ultrasound Simple ovarian cyst Endometrial thickening on ultrasound Chief Complaint SCREENING NV Chief Complaint SCREENING NV OSTOMY CARE Family History No Family History Records Found Relationship Condition Age at Onset Recorded Date/T anuel father Hypertension Unknown Cardiac disease Unknown grandmother Malignant neoplasm of breast Unknown aunt Malignant neoplasm of breast Unknown mother Malignant neoplasm of colon Unknown Summary Purpose Reason for Referral Specialty Diagnoses / Procedures Referred By Tushar harry Referred To Contact CT IMAGING Diagnoses Ovarian cancer on left (HCC) Procedures CT ABD/PEL W IVCON CT ABD & PELVIS W/CONTRAST Hiram Mccoy, DO [address] [place] [address] Ct Imaging [id number] Referral ID Status Reason Start Date Expiration Date Visits Requested Visits Authorized [id number] Pending Review Auto-Generat ed Referral 09/16/2023 10/15/2024 1 1 Specialty Diagnoses / Procedures Referred By Tushar harry Referred To Contact CT IMAGING Diagnoses Ovarian cancer on left (HCC) Procedures CT CHEST W IVCON DIAGNOSTIC COMPUTED TOMOGRAPHY THORAX W/CONTRAST Hiram Mccoy, DO [address] [place] [address] Ct Imaging [id number] Referral ID Status Reason Start Date Expiration Date Visits Requested Visits Authorized [id number] Pending Review Auto-Generat ed Referral 09/16/2023 10/15/2024 1 1 Specialty Diagnoses / Procedures Referred By Tushar harry Referred To Contact CT IMAGING Diagnoses Ovarian cancer, bilateral (HCC) Procedures CT ABD/PEL W IVCON CT ABD & PELVIS W/CONTRAST Hiram Mccoy, DO [address] [place] [address] [place] [id number] Referral ID Status Reason Start Date Expiration Date Visits Requested Visits Authorized [id number] Authorized Auto-Generat ed Referral 01/16/2024 02/14/2025 1 1 Specialty Diagnoses / Procedures Referred By Contac t Referred To Contact CT IMAGING Diagnoses Ovarian cancer, bilateral (HCC) Procedures CT CHEST W IVCON DIAGNOSTIC COMPUTED TOMOGRAPHY THORAX W/CONTRAST CiroHiram nunez, DO [address] [place] [address] [place] [id number] Referral ID Status Reason Start Date Expiration Date Visits Requested Visits Authorized [id number] Authorized Auto-Generat ed Referral 01/16/2024 02/14/2025 1 1 Specialty Diagnoses / Procedures Referred By Contac t Referred To Contact Colon and Rectal Surgery Diagnoses Ovarian cancer on left (HCC) Procedures CONSULT TO COLO-RECTAL SURGERY OFFICE/OUTPATIENT NEW HIGH MDM 60 MINUTES CiroHiram nunez, DO [address] [place] [address] Referral ID Status Reason Start Date Expiration Date Visits Requested Visits Authorized [id number] Authorized PCP Requested Referral 02/06/2024 02/05/2025 1 1 Additional Source Comments Goals (unrecognized section and content) Goals may be documented in a n alternate sectionGoals may be documented in an alternate sectionGoals may be documented in an alternate sectionGoals may be documented in an alternate sectionGoals may be documented in an alternate sectionGoals may be documented in an alternate sectionGoals may be documented in an alternate sectionGoals may be documented in an alternate sectionGoals may be documented in an alternate sectionGoals may be documented in an alternate section Source Comments (unrecognize d section and content) In the event this informatio n is protected by the Federal Confidentiality of Alcohol and Drug Abuse Patient Records regulations: The Federal rules restrict any use of the information to criminally investigate or prosecute any alcohol or drug abuse patient.[facility]In the event this information is protected by the Federal Confidentiality of Alcohol and Drug Abuse Patient Records regulations: The Federal rules restrict any use of the information to criminally investigate or prosecute any alcohol or drug abuse patient.[facility] HospitalIn the event this information is protected by the Federal Confidentiality of Alcohol and Drug Abuse Patient Records regulations: The Federal rules restrict any use of the information to criminally investigate or prosecute any alcohol or drug abuse patient.[facility] HospitalIn the event this information is protected by the Federal Confidentiality of Alcohol and Drug Abuse Patient Records regulations: The Federal rules restrict any use of the information to criminally investigate or prosecute any alcohol or drug abuse patient.[facility] HospitalIn the event this information is protected by the Federal Confidentiality of Alcohol and Drug Abuse Patient Records regulations: The Federal rules restrict any use of the information to criminally investigate or prosecute any alcohol or drug abuse patient.[facility] HospitalIn the event this information is protected by the Federal Confidentiality of Alcohol and Drug Abuse Patient Records regulations: The Federal rules restrict any use of the information to criminally investigate or prosecute any alcohol or drug abuse patient.[facility] HospitalIn the event this information is protected by the Federal Confidentiality of Alcohol and Drug Abuse Patient Records regulations: The Federal rules restrict any use of the information to criminally investigate or prosecute any alcohol or drug abuse patient.[facility] HospitalIn the event this information is protected by the Federal Confidentiality of Alcohol and Drug Abuse Patient Records regulations: The Federal rules restrict any use of the information to criminally investigate or prosecute any alcohol or drug abuse patient.[facility] HospitalIn the event this information is protected by the Federal Confidentiality of Alcohol and Drug Abuse Patient Records regulations: The Federal rules restrict any use of the information to criminally investigate or prosecute any alcohol or drug abuse patient.[facility] HospitalIn the event this information is protected by the Federal Confidentiality of Alcohol and Drug Abuse Patient Records regulations: The Federal rules restrict any use of the information to criminally investigate or prosecute any alcohol or drug abuse patient.[facility] HospitalIn the event this information is protected by the Federal Confidentiality of Alcohol and Drug Abuse Patient Records regulations: The Federal rules restrict any use of the information to criminally investigate or prosecute any alcohol or drug abuse patient.[facility] HospitalIn the event this information is protected by the Federal Confidentiality of Alcohol and Drug Abuse Patient Records regulations: The Federal rules restrict any use of the information to criminally investigate or prosecute any alcohol or drug abuse patient.[facility] HospitalIn the event this information is protected by the Federal Confidentiality of Alcohol and Drug Abuse Patient Records regulations: The Federal rules restrict any use of the information to criminally investigate or prosecute any alcohol or drug abuse patient.[facility] HospitalIn the event this information is protected by the Federal Confidentiality of Alcohol and Drug Abuse Patient Records regulations: The Federal rules restrict any use of the information to criminally investigate or prosecute any alcohol or drug abuse patient.[facility] HospitalIn the event this information is protected by the Federal Confidentiality of Alcohol and Drug Abuse Patient Records regulations: The Federal rules restrict any use of the information to criminally investigate or prosecute any alcohol or drug abuse patient.[facility] HospitalIn the event this information is protected by the Federal Confidentiality of Alcohol and Drug Abuse Patient Records regulations: The Federal rules restrict any use of the information to criminally investigate or prosecute any alcohol or drug abuse patient.[facility] HospitalIn the event this information is protected by the Federal Confidentiality of Alcohol and Drug Abuse Patient Records regulations: The Federal rules restrict any use of the information to criminally investigate or prosecute any alcohol or drug abuse patient.[facility] HospitalIn the event this information is protected by the Federal Confidentiality of Alcohol and Drug Abuse Patient Records regulations: The Federal rules restrict any use of the information to criminally investigate or prosecute any alcohol or drug abuse patient.[facility] HospitalIn the event this information is protected by the Federal Confidentiality of Alcohol and Drug Abuse Patient Records regulations: The Federal rules restrict any use of the information to criminally investigate or prosecute any alcohol or drug abuse patient.[facility] HospitalIn the event this information is protected by the Federal Confidentiality of Alcohol and Drug Abuse Patient Records regulations: The Federal rules restrict any use of the information to criminally investigate or prosecute any alcohol or drug abuse patient.[facility] HospitalIn the event this information is protected by the Federal Confidentiality of Alcohol and Drug Abuse Patient Records regulations: The Federal rules restrict any use of the information to criminally investigate or prosecute any alcohol or drug abuse patient.[facility] HospitalIn the event this information is protected by the Federal Confidentiality of Alcohol and Drug Abuse Patient Records regulations: The Federal rules restrict any use of the information to criminally investigate or prosecute any alcohol or drug abuse patient.[facility] HospitalIn the event this information is protected by the Federal Confidentiality of Alcohol and Drug Abuse Patient Records regulations: The Federal rules restrict any use of the information to criminally investigate or prosecute any alcohol or drug abuse patient.[facility] HospitalIn the event this information is protected by the Federal Confidentiality of Alcohol and Drug Abuse Patient Records regulations: The Federal rules restrict any use of the information to criminally investigate or prosecute any alcohol or drug abuse patient.[facility] HospitalIn the event this information is protected by the Federal Confidentiality of Alcohol and Drug Abuse Patient Records regulations: The Federal rules restrict any use of the information to criminally investigate or prosecute any alcohol or drug abuse patient.[facility] HospitalIn the event this information is protected by the Federal Confidentiality of Alcohol and Drug Abuse Patient Records regulations: The Federal rules restrict any use of the information to criminally investigate or prosecute any alcohol or drug abuse patient.[facility] HospitalIn the event this information is protected by the Federal Confidentiality of Alcohol and Drug Abuse Patient Records regulations: The Federal rules restrict any use of the information to criminally investigate or prosecute any alcohol or drug abuse patient.[facility] HospitalIn the event this information is protected by the Federal Confidentiality of Alcohol and Drug Abuse Patient Records regulations: The Federal rules restrict any use of the information to criminally investigate or prosecute any alcohol or drug abuse patient.[facility] HospitalIn the event this information is protected by the Federal Confidentiality of Alcohol and Drug Abuse Patient Records regulations: The Federal rules restrict any use of the information to criminally investigate or prosecute any alcohol or drug abuse patient.[facility] HospitalIn the event this information is protected by the Federal Confidentiality of Alcohol and Drug Abuse Patient Records regulations: The Federal rules restrict any use of the information to criminally investigate or prosecute any alcohol or drug abuse patient.[facility] HospitalIn the event this information is protected by the Federal Confidentiality of Alcohol and Drug Abuse Patient Records regulations: The Federal rules restrict any use of the information to criminally investigate or prosecute any alcohol or drug abuse patient.[facility] HospitalIn the event this information is protected by the Federal Confidentiality of Alcohol and Drug Abuse Patient Records regulations: The Federal rules restrict any use of the information to criminally investigate or prosecute any alcohol or drug abuse patient.[facility] HospitalIn the event this information is protected by the Federal Confidentiality of Alcohol and Drug Abuse Patient Records regulations: The Federal rules restrict any use of the information to criminally investigate or prosecute any alcohol or drug abuse patient.[facility] HospitalIn the event this information is protected by the Federal Confidentiality of Alcohol and Drug Abuse Patient Records regulations: The Federal rules restrict any use of the information to criminally investigate or prosecute any alcohol or drug abuse patient.[facility] HospitalIn the event this information is protected by the Federal Confidentiality of Alcohol and Drug Abuse Patient Records regulations: The Federal rules restrict any use of the information to criminally investigate or prosecute any alcohol or drug abuse patient.[facility] HospitalIn the event this information is protected by the Federal Confidentiality of Alcohol and Drug Abuse Patient Records regulations: The Federal rules restrict any use of the information to criminally investigate or prosecute any alcohol or drug abuse patient.[facility] HospitalIn the event this information is protected by the Federal Confidentiality of Alcohol and Drug Abuse Patient Records regulations: The Federal rules restrict any use of the information to criminally investigate or prosecute any alcohol or drug abuse patient.[facility] HospitalIn the event this information is protected by the Federal Confidentiality of Alcohol and Drug Abuse Patient Records regulations: The Federal rules restrict any use of the information to criminally investigate or prosecute any alcohol or drug abuse patient.[facility] HospitalIn the event this information is protected by the Federal Confidentiality of Alcohol and Drug Abuse Patient Records regulations: The Federal rules restrict any use of the information to criminally investigate or prosecute any alcohol or drug abuse patient.[facility] HospitalIn the event this information is protected by the Federal Confidentiality of Alcohol and Drug Abuse Patient Records regulations: The Federal rules restrict any use of the information to criminally investigate or prosecute any alcohol or drug abuse patient.[facility] HospitalIn the event this information is protected by the Federal Confidentiality of Alcohol and Drug Abuse Patient Records regulations: The Federal rules restrict any use of the information to criminally investigate or prosecute any alcohol or drug abuse patient.[facility] HospitalIn the event this information is protected by the Federal Confidentiality of Alcohol and Drug Abuse Patient Records regulations: The Federal rules restrict any use of the information to criminally investigate or prosecute any alcohol or drug abuse patient.[facility] HospitalIn the event this information is protected by the Federal Confidentiality of Alcohol and Drug Abuse Patient Records regulations: The Federal rules restrict any use of the information to criminally investigate or prosecute any alcohol or drug abuse patient.[facility] HospitalIn the event this information is protected by the Federal Confidentiality of Alcohol and Drug Abuse Patient Records regulations: The Federal rules restrict any use of the information to criminally investigate or prosecute any alcohol or drug abuse patient.[facility] HospitalIn the event this information is protected by the Federal Confidentiality of Alcohol and Drug Abuse Patient Records regulations: The Federal rules restrict any use of the information to criminally investigate or prosecute any alcohol or drug abuse patient.[facility] HospitalIn the event this information is protected by the Federal Confidentiality of Alcohol and Drug Abuse Patient Records regulations: The Federal rules restrict any use of the information to criminally investigate or prosecute any alcohol or drug abuse patient.[facility] HospitalIn the event this information is protected by the Federal Confidentiality of Alcohol and Drug Abuse Patient Records regulations: The Federal rules restrict any use of the information to criminally investigate or prosecute any alcohol or drug abuse patient.[facility] HospitalIn the event this information is protected by the Federal Confidentiality of Alcohol and Drug Abuse Patient Records regulations: The Federal rules restrict any use of the information to criminally investigate or prosecute any alcohol or drug abuse patient.[facility] HospitalIn the event this information is protected by the Federal Confidentiality of Alcohol and Drug Abuse Patient Records regulations: The Federal rules restrict any use of the information to criminally investigate or prosecute any alcohol or drug abuse patient.[facility] HospitalIn the event this information is protected by the Federal Confidentiality of Alcohol and Drug Abuse Patient Records regulations: The Federal rules restrict any use of the information to criminally investigate or prosecute any alcohol or drug abuse patient.[facility] HospitalIn the event this information is protected by the Federal Confidentiality of Alcohol and Drug Abuse Patient Records regulations: The Federal rules restrict any use of the information to criminally investigate or prosecute any alcohol or drug abuse patient.[facility] HospitalIn the event this information is protected by the Federal Confidentiality of Alcohol and Drug Abuse Patient Records regulations: The Federal rules restrict any use of the information to criminally investigate or prosecute any alcohol or drug abuse patient.[facility] HospitalIn the event this information is protected by the Federal Confidentiality of Alcohol and Drug Abuse Patient Records regulations: The Federal rules restrict any use of the information to criminally investigate or prosecute any alcohol or drug abuse patient.[facility] HospitalIn the event this information is protected by the Federal Confidentiality of Alcohol and Drug Abuse Patient Records regulations: The Federal rules restrict any use of the information to criminally investigate or prosecute any alcohol or drug abuse patient.[facility] HospitalIn the event this information is protected by the Federal Confidentiality of Alcohol and Drug Abuse Patient Records regulations: The Federal rules restrict any use of the information to criminally investigate or prosecute any alcohol or drug abuse patient.[facility] HospitalIn the event this information is protected by the Federal Confidentiality of Alcohol and Drug Abuse Patient Records regulations: The Federal rules restrict any use of the information to criminally investigate or prosecute any alcohol or drug abuse patient.[facility] HospitalIn the event this information is protected by the Federal Confidentiality of Alcohol and Drug Abuse Patient Records regulations: The Federal rules restrict any use of the information to criminally investigate or prosecute any alcohol or drug abuse patient.[facility] HospitalIn the event this information is protected by the Federal Confidentiality of Alcohol and Drug Abuse Patient Records regulations: The Federal rules restrict any use of the information to criminally investigate or prosecute any alcohol or drug abuse patient.[facility] HospitalIn the event this information is protected by the Federal Confidentiality of Alcohol and Drug Abuse Patient Records regulations: The Federal rules restrict any use of the information to criminally investigate or prosecute any alcohol or drug abuse patient.[facility] HospitalIn the event this information is protected by the Federal Confidentiality of Alcohol and Drug Abuse Patient Records regulations: The Federal rules restrict any use of the information to criminally investigate or prosecute any alcohol or drug abuse patient.[facility] HospitalIn the event this information is protected by the Federal Confidentiality of Alcohol and Drug Abuse Patient Records regulations: The Federal rules restrict any use of the information to criminally investigate or prosecute any alcohol or drug abuse patient.[facility] HospitalIn the event this information is protected by the Federal Confidentiality of Alcohol and Drug Abuse Patient Records regulations: The Federal rules restrict any use of the information to criminally investigate or prosecute any alcohol or drug abuse patient.[facility] HospitalIn the event this information is protected by the Federal Confidentiality of Alcohol and Drug Abuse Patient Records regulations: The Federal rules restrict any use of the information to criminally investigate or prosecute any alcohol or drug abuse patient.[facility] HospitalIn the event this information is protected by the Federal Confidentiality of Alcohol and Drug Abuse Patient Records regulations: The Federal rules restrict any use of the information to criminally investigate or prosecute any alcohol or drug abuse patient.[facility] HospitalIn the event this information is protected by the Federal Confidentiality of Alcohol and Drug Abuse Patient Records regulations: The Federal rules restrict any use of the information to criminally investigate or prosecute any alcohol or drug abuse patient.[facility] HospitalIn the event this information is protected by the Federal Confidentiality of Alcohol and Drug Abuse Patient Records regulations: The Federal rules restrict any use of the information to criminally investigate or prosecute any alcohol or drug abuse patient.[facility] HospitalIn the event this information is protected by the Federal Confidentiality of Alcohol and Drug Abuse Patient Records regulations: The Federal rules restrict any use of the information to criminally investigate or prosecute any alcohol or drug abuse patient.[facility] HospitalIn the event this information is protected by the Federal Confidentiality of Alcohol and Drug Abuse Patient Records regulations: The Federal rules restrict any use of the information to criminally investigate or prosecute any alcohol or drug abuse patient.[facility] HospitalIn the event this information is protected by the Federal Confidentiality of Alcohol and Drug Abuse Patient Records regulations: The Federal rules restrict any use of the information to criminally investigate or prosecute any alcohol or drug abuse patient.[facility] HospitalIn the event this information is protected by the Federal Confidentiality of Alcohol and Drug Abuse Patient Records regulations: The Federal rules restrict any use of the information to criminally investigate or prosecute any alcohol or drug abuse patient.[facility] HospitalIn the event this information is protected by the Federal Confidentiality of Alcohol and Drug Abuse Patient Records regulations: The Federal rules restrict any use of the information to criminally investigate or prosecute any alcohol or drug abuse patient.[facility] HospitalIn the event this information is protected by the Federal Confidentiality of Alcohol and Drug Abuse Patient Records regulations: The Federal rules restrict any use of the information to criminally investigate or prosecute any alcohol or drug abuse patient.[facility] HospitalIn the event this information is protected by the Federal Confidentiality of Alcohol and Drug Abuse Patient Records regulations: The Federal rules restrict any use of the information to criminally investigate or prosecute any alcohol or drug abuse patient.[facility] HospitalIn the event this information is protected by the Federal Confidentiality of Alcohol and Drug Abuse Patient Records regulations: The Federal rules restrict any use of the information to criminally investigate or prosecute any alcohol or drug abuse patient.[facility] HospitalIn the event this information is protected by the Federal Confidentiality of Alcohol and Drug Abuse Patient Records regulations: The Federal rules restrict any use of the information to criminally investigate or prosecute any alcohol or drug abuse patient.[facility] HospitalIn the event this information is protected by the Federal Confidentiality of Alcohol and Drug Abuse Patient Records regulations: The Federal rules restrict any use of the information to criminally investigate or prosecute any alcohol or drug abuse patient.[facility] HospitalIn the event this information is protected by the Federal Confidentiality of Alcohol and Drug Abuse Patient Records regulations: The Federal rules restrict any use of the information to criminally investigate or prosecute any alcohol or drug abuse patient.[facility] HospitalIn the event this information is protected by the Federal Confidentiality of Alcohol and Drug Abuse Patient Records regulations: The Federal rules restrict any use of the information to criminally investigate or prosecute any alcohol or drug abuse patient.[facility] HospitalIn the event this information is protected by the Federal Confidentiality of Alcohol and Drug Abuse Patient Records regulations: The Federal rules restrict any use of the information to criminally investigate or prosecute any alcohol or drug abuse patient.[facility] HospitalIn the event this information is protected by the Federal Confidentiality of Alcohol and Drug Abuse Patient Records regulations: The Federal rules restrict any use of the information to criminally investigate or prosecute any alcohol or drug abuse patient.[facility] HospitalIn the event this information is protected by the Federal Confidentiality of Alcohol and Drug Abuse Patient Records regulations: The Federal rules restrict any use of the information to criminally investigate or prosecute any alcohol or drug abuse patient.[facility] HospitalIn the event this information is protected by the Federal Confidentiality of Alcohol and Drug Abuse Patient Records regulations: The Federal rules restrict any use of the information to criminally investigate or prosecute any alcohol or drug abuse patient.[facility] HospitalIn the event this information is protected by the Federal Confidentiality of Alcohol and Drug Abuse Patient Records regulations: The Federal rules restrict any use of the information to criminally investigate or prosecute any alcohol or drug abuse patient.[facility] HospitalIn the event this information is protected by the Federal Confidentiality of Alcohol and Drug Abuse Patient Records regulations: The Federal rules restrict any use of the information to criminally investigate or prosecute any alcohol or drug abuse patient.[facility] HospitalIn the event this information is protected by the Federal Confidentiality of Alcohol and Drug Abuse Patient Records regulations: The Federal rules restrict any use of the information to criminally investigate or prosecute any alcohol or drug abuse patient.[facility] HospitalIn the event this information is protected by the Federal Confidentiality of Alcohol and Drug Abuse Patient Records regulations: The Federal rules restrict any use of the information to criminally investigate or prosecute any alcohol or drug abuse patient.[facility] HospitalIn the event this information is protected by the Federal Confidentiality of Alcohol and Drug Abuse Patient Records regulations: The Federal rules restrict any use of the information to criminally investigate or prosecute any alcohol or drug abuse patient.[facility] HospitalIn the event this information is protected by the Federal Confidentiality of Alcohol and Drug Abuse Patient Records regulations: The Federal rules restrict any use of the information to criminally investigate or prosecute any alcohol or drug abuse patient.[facility] HospitalIn the event this information is protected by the Federal Confidentiality of Alcohol and Drug Abuse Patient Records regulations: The Federal rules restrict any use of the information to criminally investigate or prosecute any alcohol or drug abuse patient.[facility] HospitalIn the event this information is protected by the Federal Confidentiality of Alcohol and Drug Abuse Patient Records regulations: The Federal rules restrict any use of the information to criminally investigate or prosecute any alcohol or drug abuse patient.[facility] HospitalIn the event this information is protected by the Federal Confidentiality of Alcohol and Drug Abuse Patient Records regulations: The Federal rules restrict any use of the information to criminally investigate or prosecute any alcohol or drug abuse patient.[facility] HospitalIn the event this information is protected by the Federal Confidentiality of Alcohol and Drug Abuse Patient Records regulations: The Federal rules restrict any use of the information to criminally investigate or prosecute any alcohol or drug abuse patient.[facility] HospitalIn the event this information is protected by the Federal Confidentiality of Alcohol and Drug Abuse Patient Records regulations: The Federal rules restrict any use of the information to criminally investigate or prosecute any alcohol or drug abuse patient.[facility] HospitalIn the event this information is protected by the Federal Confidentiality of Alcohol and Drug Abuse Patient Records regulations: The Federal rules restrict any use of the information to criminally investigate or prosecute any alcohol or drug abuse patient.[facility] HospitalIn the event this information is protected by the Federal Confidentiality of Alcohol and Drug Abuse Patient Records regulations: The Federal rules restrict any use of the information to criminally investigate or prosecute any alcohol or drug abuse patient.[facility] HospitalIn the event this information is protected by the Federal Confidentiality of Alcohol and Drug Abuse Patient Records regulations: The Federal rules restrict any use of the information to criminally investigate or prosecute any alcohol or drug abuse patient.[facility] HospitalIn the event this information is protected by the Federal Confidentiality of Alcohol and Drug Abuse Patient Records regulations: The Federal rules restrict any use of the information to criminally investigate or prosecute any alcohol or drug abuse patient.[facility] HospitalIn the event this information is protected by the Federal Confidentiality of Alcohol and Drug Abuse Patient Records regulations: The Federal rules restrict any use of the information to criminally investigate or prosecute any alcohol or drug abuse patient.[facility] HospitalIn the event this information is protected by the Federal Confidentiality of Alcohol and Drug Abuse Patient Records regulations: The Federal rules restrict any use of the information to criminally investigate or prosecute any alcohol or drug abuse patient.[facility] HospitalIn the event this information is protected by the Federal Confidentiality of Alcohol and Drug Abuse Patient Records regulations: The Federal rules restrict any use of the information to criminally investigate or prosecute any alcohol or drug abuse patient.[facility] HospitalIn the event this information is protected by the Federal Confidentiality of Alcohol and Drug Abuse Patient Records regulations: The Federal rules restrict any use of the information to criminally investigate or prosecute any alcohol or drug abuse patient.[facility] HospitalIn the event this information is protected by the Federal Confidentiality of Alcohol and Drug Abuse Patient Records regulations: The Federal rules restrict any use of the information to criminally investigate or prosecute any alcohol or drug abuse patient.[facility] HospitalIn the event this information is protected by the Federal Confidentiality of Alcohol and Drug Abuse Patient Records regulations: The Federal rules restrict any use of the information to criminally investigate or prosecute any alcohol or drug abuse patient.[facility] HospitalIn the event this information is protected by the Federal Confidentiality of Alcohol and Drug Abuse Patient Records regulations: The Federal rules restrict any use of the information to criminally investigate or prosecute any alcohol or drug abuse patient.[facility] HospitalIn the event this information is protected by the Federal Confidentiality of Alcohol and Drug Abuse Patient Records regulations: The Federal rules restrict any use of the information to criminally investigate or prosecute any alcohol or drug abuse patient.[facility] HospitalIn the event this information is protected by the Federal Confidentiality of Alcohol and Drug Abuse Patient Records regulations: The Federal rules restrict any use of the information to criminally investigate or prosecute any alcohol or drug abuse patient.[facility] HospitalIn the event this information is protected by the Federal Confidentiality of Alcohol and Drug Abuse Patient Records regulations: The Federal rules restrict any use of the information to criminally investigate or prosecute any alcohol or drug abuse patient.[facility] HospitalIn the event this information is protected by the Federal Confidentiality of Alcohol and Drug Abuse Patient Records regulations: The Federal rules restrict any use of the information to criminally investigate or prosecute any alcohol or drug abuse patient.[facility] HospitalIn the event this information is protected by the Federal Confidentiality of Alcohol and Drug Abuse Patient Records regulations: The Federal rules restrict any use of the information to criminally investigate or prosecute any alcohol or drug abuse patient.[facility] HospitalIn the event this information is protected by the Federal Confidentiality of Alcohol and Drug Abuse Patient Records regulations: The Federal rules restrict any use of the information to criminally investigate or prosecute any alcohol or drug abuse patient.[facility] HospitalIn the event this information is protected by the Federal Confidentiality of Alcohol and Drug Abuse Patient Records regulations: The Federal rules restrict any use of the information to criminally investigate or prosecute any alcohol or drug abuse patient.[facility] HospitalIn the event this information is protected by the Federal Confidentiality of Alcohol and Drug Abuse Patient Records regulations: The Federal rules restrict any use of the information to criminally investigate or prosecute any alcohol or drug abuse patient.[facility] HospitalIn the event this information is protected by the Federal Confidentiality of Alcohol and Drug Abuse Patient Records regulations: The Federal rules restrict any use of the information to criminally investigate or prosecute any alcohol or drug abuse patient.[facility] HospitalIn the event this information is protected by the Federal Confidentiality of Alcohol and Drug Abuse Patient Records regulations: The Federal rules restrict any use of the information to criminally investigate or prosecute any alcohol or drug abuse patient.[facility] HospitalIn the event this information is protected by the Federal Confidentiality of Alcohol and Drug Abuse Patient Records regulations: The Federal rules restrict any use of the information to criminally investigate or prosecute any alcohol or drug abuse patient.[facility] HospitalIn the event this information is protected by the Federal Confidentiality of Alcohol and Drug Abuse Patient Records regulations: The Federal rules restrict any use of the information to criminally investigate or prosecute any alcohol or drug abuse patient.[facility] HospitalIn the event this information is protected by the Federal Confidentiality of Alcohol and Drug Abuse Patient Records regulations: The Federal rules restrict any use of the information to criminally investigate or prosecute any alcohol or drug abuse patient.[facility] HospitalIn the event this information is protected by the Federal Confidentiality of Alcohol and Drug Abuse Patient Records regulations: The Federal rules restrict any use of the information to criminally investigate or prosecute any alcohol or drug abuse patient.[facility] HospitalIn the event this information is protected by the Federal Confidentiality of Alcohol and Drug Abuse Patient Records regulations: The Federal rules restrict any use of the information to criminally investigate or prosecute any alcohol or drug abuse patient.[facility] HospitalIn the event this information is protected by the Federal Confidentiality of Alcohol and Drug Abuse Patient Records regulations: The Federal rules restrict any use of the information to criminally investigate or prosecute any alcohol or drug abuse patient.[facility] HospitalIn the event this information is protected by the Federal Confidentiality of Alcohol and Drug Abuse Patient Records regulations: The Federal rules restrict any use of the information to criminally investigate or prosecute any alcohol or drug abuse patient.[facility] HospitalIn the event this information is protected by the Federal Confidentiality of Alcohol and Drug Abuse Patient Records regulations: The Federal rules restrict any use of the information to criminally investigate or prosecute any alcohol or drug abuse patient.[facility] HospitalIn the event this information is protected by the Federal Confidentiality of Alcohol and Drug Abuse Patient Records regulations: The Federal rules restrict any use of the information to criminally investigate or prosecute any alcohol or drug abuse patient.[facility] HospitalIn the event this information is protected by the Federal Confidentiality of Alcohol and Drug Abuse Patient Records regulations: The Federal rules restrict any use of the information to criminally investigate or prosecute any alcohol or drug abuse patient.[facility] HospitalIn the event this information is protected by the Federal Confidentiality of Alcohol and Drug Abuse Patient Records regulations: The Federal rules restrict any use of the information to criminally investigate or prosecute any alcohol or drug abuse patient.[facility] HospitalIn the event this information is protected by the Federal Confidentiality of Alcohol and Drug Abuse Patient Records regulations: The Federal rules restrict any use of the information to criminally investigate or prosecute any alcohol or drug abuse patient.[facility] HospitalIn the event this information is protected by the Federal Confidentiality of Alcohol and Drug Abuse Patient Records regulations: The Federal rules restrict any use of the information to criminally investigate or prosecute any alcohol or drug abuse patient.[facility] HospitalIn the event this information is protected by the Federal Confidentiality of Alcohol and Drug Abuse Patient Records regulations: The Federal rules restrict any use of the information to criminally investigate or prosecute any alcohol or drug abuse patient.[facility] HospitalIn the event this information is protected by the Federal Confidentiality of Alcohol and Drug Abuse Patient Records regulations: The Federal rules restrict any use of the information to criminally investigate or prosecute any alcohol or drug abuse patient.[facility] HospitalIn the event this information is protected by the Federal Confidentiality of Alcohol and Drug Abuse Patient Records regulations: The Federal rules restrict any use of the information to criminally investigate or prosecute any alcohol or drug abuse patient.[facility] HospitalIn the event this information is protected by the Federal Confidentiality of Alcohol and Drug Abuse Patient Records regulations: The Federal rules restrict any use of the information to criminally investigate or prosecute any alcohol or drug abuse patient.[facility] HospitalIn the event this information is protected by the Federal Confidentiality of Alcohol and Drug Abuse Patient Records regulations: The Federal rules restrict any use of the information to criminally investigate or prosecute any alcohol or drug abuse patient.[facility] HospitalIn the event this information is protected by the Federal Confidentiality of Alcohol and Drug Abuse Patient Records regulations: The Federal rules restrict any use of the information to criminally investigate or prosecute any alcohol or drug abuse patient.[facility] HospitalIn the event this information is protected by the Federal Confidentiality of Alcohol and Drug Abuse Patient Records regulations: The Federal rules restrict any use of the information to criminally investigate or prosecute any alcohol or drug abuse patient.[facility] HospitalIn the event this information is protected by the Federal Confidentiality of Alcohol and Drug Abuse Patient Records regulations: The Federal rules restrict any use of the information to criminally investigate or prosecute any alcohol or drug abuse patient.[facility] HospitalIn the event this information is protected by the Federal Confidentiality of Alcohol and Drug Abuse Patient Records regulations: The Federal rules restrict any use of the information to criminally investigate or prosecute any alcohol or drug abuse patient.[facility] HospitalIn the event this information is protected by the Federal Confidentiality of Alcohol and Drug Abuse Patient Records regulations: The Federal rules restrict any use of the information to criminally investigate or prosecute any alcohol or drug abuse patient.[facility] HospitalIn the event this information is protected by the Federal Confidentiality of Alcohol and Drug Abuse Patient Records regulations: The Federal rules restrict any use of the information to criminally investigate or prosecute any alcohol or drug abuse patient.[facility] HospitalIn the event this information is protected by the Federal Confidentiality of Alcohol and Drug Abuse Patient Records regulations: The Federal rules restrict any use of the information to criminally investigate or prosecute any alcohol or drug abuse patient.[facility] HospitalIn the event this information is protected by the Federal Confidentiality of Alcohol and Drug Abuse Patient Records regulations: The Federal rules restrict any use of the information to criminally investigate or prosecute any alcohol or drug abuse patient.[facility] HospitalIn the event this information is protected by the Federal Confidentiality of Alcohol and Drug Abuse Patient Records regulations: The Federal rules restrict any use of the information to criminally investigate or prosecute any alcohol or drug abuse patient.[facility] HospitalIn the event this information is protected by the Federal Confidentiality of Alcohol and Drug Abuse Patient Records regulations: The Federal rules restrict any use of the information to criminally investigate or prosecute any alcohol or drug abuse patient.[facility] HospitalIn the event this information is protected by the Federal Confidentiality of Alcohol and Drug Abuse Patient Records regulations: The Federal rules restrict any use of the information to criminally investigate or prosecute any alcohol or drug abuse patient.[facility] HospitalIn the event this information is protected by the Federal Confidentiality of Alcohol and Drug Abuse Patient Records regulations: The Federal rules restrict any use of the information to criminally investigate or prosecute any alcohol or drug abuse patient.[facility] HospitalIn the event this information is protected by the Federal Confidentiality of Alcohol and Drug Abuse Patient Records regulations: The Federal rules restrict any use of the information to criminally investigate or prosecute any alcohol or drug abuse patient.[facility] HospitalIn the event this information is protected by the Federal Confidentiality of Alcohol and Drug Abuse Patient Records regulations: The Federal rules restrict any use of the information to criminally investigate or prosecute any alcohol or drug abuse patient.[facility] HospitalIn the event this information is protected by the Federal Confidentiality of Alcohol and Drug Abuse Patient Records regulations: The Federal rules restrict any use of the information to criminally investigate or prosecute any alcohol or drug abuse patient.[facility] HospitalIn the event this information is protected by the Federal Confidentiality of Alcohol and Drug Abuse Patient Records regulations: The Federal rules restrict any use of the information to criminally investigate or prosecute any alcohol or drug abuse patient.[facility] HospitalIn the event this information is protected by the Federal Confidentiality of Alcohol and Drug Abuse Patient Records regulations: The Federal rules restrict any use of the information to criminally investigate or prosecute any alcohol or drug abuse patient.[facility] HospitalIn the event this information is protected by the Federal Confidentiality of Alcohol and Drug Abuse Patient Records regulations: The Federal rules restrict any use of the information to criminally investigate or prosecute any alcohol or drug abuse patient.[facility] HospitalIn the event this information is protected by the Federal Confidentiality of Alcohol and Drug Abuse Patient Records regulations: The Federal rules restrict any use of the information to criminally investigate or prosecute any alcohol or drug abuse patient.[facility] HospitalIn the event this information is protected by the Federal Confidentiality of Alcohol and Drug Abuse Patient Records regulations: The Federal rules restrict any use of the information to criminally investigate or prosecute any alcohol or drug abuse patient.[facility] HospitalIn the event this information is protected by the Federal Confidentiality of Alcohol and Drug Abuse Patient Records regulations: The Federal rules restrict any use of the information to criminally investigate or prosecute any alcohol or drug abuse patient.[facility] HospitalIn the event this information is protected by the Federal Confidentiality of Alcohol and Drug Abuse Patient Records regulations: The Federal rules restrict any use of the information to criminally investigate or prosecute any alcohol or drug abuse patient.[facility] HospitalIn the event this information is protected by the Federal Confidentiality of Alcohol and Drug Abuse Patient Records regulations: The Federal rules restrict any use of the information to criminally investigate or prosecute any alcohol or drug abuse patient.[facility] HospitalIn the event this information is protected by the Federal Confidentiality of Alcohol and Drug Abuse Patient Records regulations: The Federal rules restrict any use of the information to criminally investigate or prosecute any alcohol or drug abuse patient.[facility] HospitalIn the event this information is protected by the Federal Confidentiality of Alcohol and Drug Abuse Patient Records regulations: The Federal rules restrict any use of the information to criminally investigate or prosecute any alcohol or drug abuse patient.[facility] HospitalIn the event this information is protected by the Federal Confidentiality of Alcohol and Drug Abuse Patient Records regulations: The Federal rules restrict any use of the information to criminally investigate or prosecute any alcohol or drug abuse patient.[facility] HospitalIn the event this information is protected by the Federal Confidentiality of Alcohol and Drug Abuse Patient Records regulations: The Federal rules restrict any use of the information to criminally investigate or prosecute any alcohol or drug abuse patient.[facility] HospitalIn the event this information is protected by the Federal Confidentiality of Alcohol and Drug Abuse Patient Records regulations: The Federal rules restrict any use of the information to criminally investigate or prosecute any alcohol or drug abuse patient.[facility] HospitalIn the event this information is protected by the Federal Confidentiality of Alcohol and Drug Abuse Patient Records regulations: The Federal rules restrict any use of the information to criminally investigate or prosecute any alcohol or drug abuse patient.[facility] HospitalIn the event this information is protected by the Federal Confidentiality of Alcohol and Drug Abuse Patient Records regulations: The Federal rules restrict any use of the information to criminally investigate or prosecute any alcohol or drug abuse patient.[facility] HospitalIn the event this information is protected by the Federal Confidentiality of Alcohol and Drug Abuse Patient Records regulations: The Federal rules restrict any use of the information to criminally investigate or prosecute any alcohol or drug abuse patient.[facility] Reason for Visit (unrecogniz ed section and content) Reason Comments Plaquenil Check Cataract Evaluation Reason Comments Nutrition Counseling No show Reason Comments Blood Draw (CVAD) Reason Comments Established Patient Specialty Diagnoses / Procedures Referred By Contac t Referred To Contact Hematology/Oncology / HEMATOLOGY/ONCOLOGY Diagnoses OV(PORT)/LABS EARLY/CHEMO 2/* Procedures OFFICE/OUTPATIENT ESTABLISHED HIGH MDM 40 MIN EST PATIENT W/CHEMO Hiram Mccoy DO [address] [place] [address] Hiram Mccoy, DO [address] [place] [address] Referral ID Status Reason Start Date Expiration Date V isits Requested Visits Authorized [id number] Authorized 08/10/2023 07/24/2024 3 3 Reason Comments Chemotherapy Treatment Specialty Diagnoses / Procedures Referred By Contac Referred To Contact Diagnoses Ovarian cancer on left (HCC) Procedures PACLITAXEL INJECTION CARBOPLATIN INJECTION PALONOSETRON HCL Hiram Mccoy DO [address] [place] [address] [facility] [address] [place] [address] Referral ID Status Reason Start Date Expiration Date V isits Requested Visits Authorized [id number] Authorized 07/28/2023 07/28/2024 99 99 Reason Onset Date Comments Refill Request 08/30/2023 Reason Comments Nutrition Assessment Reason Comments Ovarian Cancer Specialty Diagnoses / Procedures Referred By Contac t Referred To Contact Diagnoses Ovarian cancer on left (HCC) Procedures CONSULT TO MEDICAL GENETICS - CANCER MEDICAL GENETICS COUNSELING EACH 30 MINUTES Hiram Mccoy DO [address] [place] [address] [facility] [address] [place] [address] Referral ID Status Reason Start Date Expiration Date Visits Requested Visits Authorized [id number] Pending Review PCP Requested Referral Auto-Generate d Referral 07/27/2023 07/26/2024 1 1 Reason Comments Established Patient Specialty Diagnoses / Procedures Referred By Contac t Referred To Contact Hematology/Oncology / HEMATOLOGY/ONCOLOGY Diagnoses OV(PORT)/LABS EARLY/CHEMO 08/30* Procedures OFFICE/OUTPATIENT ESTABLISHED HIGH MDM 40 MIN EST PATIENT W/CHEMO Hiram Mccoy, DO [address] [place] [address] Hiram Mccoy, DO [address] [place] [address] Reason Comments Nutrition Counseling Reason Comments Orders Reason Comments Patient Question Reason Comments Port Flush Reason Comments Radiology CT Specialty Diagnoses / Procedures Referred By Contac t Referred To Contact CT IMAGING Diagnoses Ovarian cancer on left (HCC) Procedures CT ABD/PEL W IVCON CT ABD & PELVIS W/CONTRAST Hiram Mccoy, DO [address] [place] [address] [place] [address] Referral ID Status Reason Start Date Expiration Date V isits Requested Visits Authorized [id number] Closed Auto-Generate d Referral 09/16/2023 10/15/2024 1 1 Reason Comments Results Referral ID Status Reason Start Date Expiration Date Visits Re quested Visits Authorized [id number] Closed 08/10/2023 07/24/2024 3 3 Reason Comments Urgent Reason Comments Appointment Reason Comments Preparations For Surgery Reason Comments Linen Folder - Other Hospital Discha rge Reason Comments Post-Op Visit Reason Comments Results Reason Comments Radiology US Specialty Diagnoses / Procedures Referred By Contac t Referred To Contact US IMAGING Diagnoses Elevated LFTs Procedures US ABD RIGHT UPPER QUADRANT US ABDOMINAL REAL TIME W/IMAGE LIMITED Hiram Mccoy, DO [address] [place] [address] [place] [address] Referral ID Status Reason Start Date Expiration Date V isits Requested Visits Authorized [id number] Closed Auto-Generate d Referral 12/06/2023 01/04/2025 1 1 Referral ID Status Reason Start Date Expiration Date V isits Requested Visits Authorized [id number] Pending Review 07/28/2023 07/28/2024 99 99 Reason Comments Transfusion Reason Comments CVAD Access Specialty Diagnoses / Procedures Referred By Contac t Referred To Contact CT IMAGING Diagnoses Ovarian cancer, bilateral (HCC) Procedures CT ABD/PEL W IVCON CT ABD & PELVIS W/CONTRAST Hiram Mccoy, DO [address] [place] [address] [place] [address] Referral ID Status Reason Start Date Expiration Date V isits Requested Visits Authorized [id number] Closed Auto-Generate d Referral 01/16/2024 02/14/2025 1 1 Specialty Diagnoses / Procedures Referred By Contac t Referred To Contact CT IMAGING Diagnoses Ovarian cancer, bilateral (HCC) Procedures CT ABD/PEL W IVCON CT ABD & PELVIS W/CONTRAST Hiram Mccoy, DO [address] [place] [address] [place] [address] Reason Comments Established Patient Reason Onset Date Comments Refill Request 02/07/2024 Reason Comments Follow Up Reason Comments Refill Request Reason Onset Date Comments SPP Oral Oncology/hematology - Treatment Referra l 03/16/2024 [facility] Insurance Authorization 03/16/2024 Pending PA Reason Comments CHEMO PILL START Reason Comments Linen Folder - Other Oral Anti-Cance r Agents Education (lynparza) Reason Onset Date Comments Refill Request 03/23/2024 Reason Comments Linen Folder - Other Receiving olapa rib 03/28 Reason Comments Linen Folder - Other Oral Anti-Cance r Agents Follow-up olaparib Reason Comments New Patient Discuss Takedown Reason Comments Procedure LAP COLOSTOMY REVERS AL Reason Comments Patient Update Reason Onset Date Comments SPP Oral Oncology/hematology - Medication Refill 04/20/2024 Lynparza Reason Onset Date Comments Opened In Error 04/27/2024 Reason Onset Date Comments Linen Folder - Hospital Follow Up 05/03/2024 Reason Comments Post Op : LAPAROSCOPIC RESEC TION BOWEL Reason Onset Date Comments SPP Oral Oncology/hematology - Medication Refill 05/18/2024 Lynparza 100mg Reason Onset Date Comments Linen Folder - Hospital Follow Up 05/28/2024 Reason Onset Date Comments SPP Oral Oncology/hematology - Medication Refill 06/20/2024 Lynparza Reason Onset Date Comments SPP Oral Oncology/hematology - Medication Refill 07/19/2024 Lynparza Reason Comments Established Patient 3 month follow up Reason Comments Procedure COLOSTOMY REVERSAL Reason Comments Schedule Surgery Reason Onset Date Comments SPP Oral Oncology/hematology - Medication Refill 08/13/2024 Lynparza Reason Comments Patient Education Reason Onset Date Comments Refill Request 08/31/2024 Reason Onset Date Comments SPP Oral Oncology/hematology - Medication Refill 09/17/2024 Lynparza 100mg Reason Comments Glaucoma Suspect Evaluation Reason Onset Date Comments SPP Oral Oncology/hematology - Medication Refill 10/22/2024 Lynparza 100mg Reason Onset Date Comments Linen Folder - Hospital Follow Up 10/23/2024 Reason Onset Date Comments SPP Oral Oncology/hematology - Medication Refill 12/18/2024 Lynparza 100mg Reason Onset Date Comments SPP Oral Oncology/hematology - Medication Refill 01/18/2025 Lynparza 100mg Reason Comments Non-Chemotherapy Treatment Specialty Diagnoses / Procedures Referred By Contac t Referred To Contact HEMATOLOGY/ONCOLOGY Diagnoses Iron malabsorption (HCC) Anemia in stage 3a chronic kidney disease (HCC) Ovarian cancer on left (HCC) Procedures IRON SUCROSE INJECTION PER 1 MG Hiram Mccoy DO [address] [facility] [place] [place] [address] Phone: tel: fax: Hematology/Oncology [address] [place] [address] Phone: tel: fax: Referral ID Status Reason Start Date Expiration Date Visits Requested Visits Authorized [id number] Authorized Patient Cleared - Admin/Chairm an/Director advise to proceed or did not respond 02/11/2025 05/12/2025 5 5 Reason Onset Date Comments SPP Oral Oncology/hematology - Medication Refill 02/15/2025 Lynparza 100mg Reason Comments Opened In Error Reason Comments Results Specialty Diagnoses / Procedures Referred By Contac t Referred To Contact CT IMAGING Diagnoses Ovarian cancer, bilateral (HCC) Procedures CT CHEST W IVCON DIAGNOSTIC COMPUTED TOMOGRAPHY THORAX W/CONTRAST Hiram Mccoy DO [address] [place] [address] Phone: tel: fax: [place] [address] Referral ID Status Reason Start Date Expiration Date V isits Requested Visits Authorized [id number] Closed Auto-Generate d Referral 02/25/2025 03/27/2026 1 1 Reason Comments Linen Folder - Other Change in treat ment Reason Comments First Time Treatment Education Carbo/Stoddard christie/Avastin Reason Comments Social Work Services Reason Comments Linen Folder - Other Treatment Plann ing Care Teams (unrecognized sec tion and content) Personnel Placement Specialist Relationship Specialty Start Date End Date Krystian Piper MD [address] [place] [address] PCP - General Family Medicine 06/14/17 Team Status: Active Member Role Status Dates Dr. Krystian Piper MD Family Provider Active Dr. Emily Casanova DO Primary Care Provider Active Team Status: Inactive Member Role Status Dates Dr. Emily Casanova DO Primary Care Prov ider, Attending Provider, Referring Provider Active Team Status: Active Member Role Status Dates Dr. Emily Casanova DO Primary Care Prov ider, Attending Provider, Referring Provider Active Team Status: Inactive Member Role Status Dates Dr. Emily Casanova DO Primary Care Provider, Referrin g Provider Active Dr. Alaina Tellez MD Attending Provider Active Team Status: Inactive Member Role Status Dates Dr. Emily Casanova DO Primary Care Provider Active Dr. Jessica Al MD Attending Provider, Referring Provider Active Team Status: Inactive Member Role Status Dates Dr. Emily Casanova DO Primary Care Provider Active Dr. Gabriel Mcfarland MD Emergency Provider Active Team Status: Inactive Member Role Status Dates Dr. Emily Casanova DO Primary Care Provider Active Dr. Alaina Tellez MD Attending Provider, Referr ing Provider Active Team Status: Inactive Member Role Status Dates Dr. Emily Casanova DO Primary Care Provider Active Dr. Gabriel Mcfarland MD Attending Provider, Emergency Provi javier Active Team Status: Inactive Member Role Status Dates Dr. Emily Casanova DO Primary Care Provider Active YULIYA Whyte Attending Provider, Referring Prov ider Active Team Status: Inactive Member Role Status Dates Dr. Emily Casanova DO Primary Care Provider Active Dr. Jorge Alberto Stephenson DO Emergency Provider Active Personnel Placement Specialist Relationship Specialty Start Date End Date Emily Casanova DO [address] [place] [address] PCP - General Family Medicine 01/05/23 Hiram Mccoy DO [address] [place] [address] Hematology/Oncology 08/01/23 Joy Bolaños RN Specialty Linen Folder Oncology 08/01/23 Personnel Placement Specialist Relationship Specialty Start Date End Date Emily Casanova DO [address] [place] [address] PCP - General Family Medicine 01/05/23 Hiram Mccoy DO [address] [place] [address] Hematology/Oncology 08/01/23 Joy Bolaños RN Specialty Linen Folder Oncology 08/01/23 Personnel Placement Specialist Relationship Specialty Start Date End Date Emily Casanova DO [address] [place] [address] PCP - General Family Medicine 01/05/23 Hiram Mccoy DO [address] [place] [address] Hematology/Oncology 08/01/23 Joy Bolaños RN Specialty Linen Folder Oncology 08/01/23 Personnel Placement Specialist Relationship Specialty Start Date End Date Emily Casanova DO [address] [place] [address] PCP - General Family Medicine 01/05/23 Hiram Mccoy DO [address] [place] [address] Hematology/Oncology 08/01/23 Joy Bolaños RN Specialty Linen Folder Oncology 08/01/23 Personnel Placement Specialist Relationship Specialty Start Date End Date Emily Casanova DO [address] [place] [address] PCP - General Family Medicine 01/05/23 Hiram Mccoy DO [address] [place] [address] Hematology/Oncology 08/01/23 Joy Bolaños RN Specialty Linen Folder Oncology 08/01/23 Personnel Placement Specialist Relationship Specialty Start Date End Date Emily Casanova DO [address] [place] [address] PCP - General Family Medicine 01/05/23 Hiram Mccoy DO [address] [place] [address] Hematology/Oncology 08/01/23 Joy Bolaños RN Specialty Linen Folder Oncology 08/01/23 Personnel Placement Specialist Relationship Specialty Start Date End Date Emily Casanova DO [address] [place] [address] PCP - General Family Medicine 01/05/23 Hiram Mccoy DO [address] [place] [address] Hematology/Oncology 08/01/23 Joy Bolaños RN Specialty Linen Folder Oncology 08/01/23 Personnel Placement Specialist Relationship Specialty Start Date End Date Emily Casanova DO [address] [place] [address] PCP - General Family Medicine 01/05/23 Hiram Mccoy DO [address] [place] [address] Hematology/Oncology 08/01/23 Joy Bolaños RN Specialty Linen Folder Oncology 08/01/23 Personnel Placement Specialist Relationship Specialty Start Date End Date Emily Casanova DO [address] [place] [address] PCP - General Family Medicine 01/05/23 Hiram Mccoy DO [address] [place] [address] Hematology/Oncology 08/01/23 Joy Bolaños RN Specialty Linen Folder Oncology 08/01/23 Personnel Placement Specialist Relationship Specialty Start Date End Date Emily Casanova DO [address] [place] [address] PCP - General Family Medicine 01/05/23 Hiram Mccoy DO [address] [place] [address] Hematology/Oncology 08/01/23 Joy Bolaños RN Specialty Linen Folder Oncology 08/01/23 Personnel Placement Specialist Relationship Specialty Start Date End Date Emily Casanova DO [address] [place] [address] PCP - General Family Medicine 01/05/23 Hiram Mccoy DO [address] [place] [address] Hematology/Oncology 08/01/23 Joy Bolaños RN Specialty Linen Folder Oncology 08/01/23 Team Status: Inactive Member Role Status Dates Dr. Emily Casanova DO Primary Care Provider Active Dr. Jorge Alberto Stephenson DO Attending Provider, Emergency Pro vider Active Team Status: Inactive Member Role Status Dates Dr. Emily Casanova DO Primary Care Provider Active Dr. Hiram Mccoy DO Attending Provider, Referring Prov ider Active Personnel Placement Specialist Relationship Specialty Start Date End Date Emily Casanova DO [address] [address] PCP - General Family Medicine 01/05/23 Hiram Mccoy DO [address] [place] [address] Hematology/Oncology 08/01/23 Joy Bolaños RN Specialty Linen Folder Oncology 08/01/23 Personnel Placement Specialist Relationship Specialty Start Date End Date Emily Casanova DO [address] [place], [place] [address] PCP - General Family Medicine 01/05/23 Hiram Mccoy DO [address] [place] [address] Hematology/Oncology 08/01/23 Joy Bolaños RN Specialty Linen Folder Oncology 08/01/23 Personnel Placement Specialist Relationship Specialty Start Date End Date Emily Casanova DO [address] [place] [address] PCP - General Family Medicine 01/05/23 Hiram Mccoy DO [address] [place] [address] Hematology/Oncology 08/01/23 Joy Bolaños RN Specialty Linen Folder Oncology 08/01/23 Personnel Placement Specialist Relationship Specialty Start Date End Date Emily Casanova DO [address] [place] [address] PCP - General Family Medicine 01/05/23 Hiram Mccoy DO [address] [place] [address] Hematology/Oncology 08/01/23 Joy Bolaños RN Specialty Linen Folder Oncology 08/01/23 Personnel Placement Specialist Relationship Specialty Start Date End Date Emily Casanova DO [address] [place] [address] PCP - General Family Medicine 01/05/23 Hiram Mccoy DO [address] [place] [address] Hematology/Oncology 08/01/23 Joy Bolaños RN Specialty Linen Folder Oncology 08/01/23 Personnel Placement Specialist Relationship Specialty Start Date End Date Emily Casanova DO [address] [place] [address] PCP - General Family Medicine 01/05/23 Hiram Mccoy DO [address] [place] [address] Hematology/Oncology 08/01/23 Joy Bolaños RN Specialty Linen Folder Oncology 08/01/23 Personnel Placement Specialist Relationship Specialty Start Date End Date Emily Casanova DO [address] [place] [address] PCP - General Family Medicine 01/05/23 Hiram Mccoy DO [address] [place] [address] Hematology/Oncology 08/01/23 Joy Bolaños RN Specialty Linen Folder Oncology 08/01/23 Personnel Placement Specialist Relationship Specialty Start Date End Date Emily Casanova DO [address] [place] [address] PCP - General Family Medicine 01/05/23 Hiram Mccoy DO [address] [facility] [place] [address] Hematology/Oncology 08/01/23 Joy Bolaños RN Specialty Linen Folder Oncology 08/01/23 Personnel Placement Specialist Relationship Specialty Start Date End Date Emily Casanova DO [address] [place] [address] PCP - General Family Medicine 01/05/23 Hiram Mccoy DO [address] [facility] [place] [address] Hematology/Oncology 08/01/23 Joy Bolaños RN Specialty Linen Folder Oncology 08/01/23 Personnel Placement Specialist Relationship Specialty Start Date End Date Emily Casanova DO [address] [place] [address] PCP - General Family Medicine 01/05/23 Hiram Mccoy DO [address] [place] [address] Hematology/Oncology 08/01/23 Joy Bolaoñs RN Specialty Linen Folder Oncology 08/01/23 Personnel Placement Specialist Relationship Specialty Start Date End Date Emily Casanova DO [address] [place] [address] PCP - General Family Medicine 01/05/23 Hiram Mccoy DO [address] [place] [address] Hematology/Oncology 08/01/23 Joy Bolaños RN Specialty Linen Folder Oncology 08/01/23 Personnel Placement Specialist Relationship Specialty Start Date End Date Emily aCsanova DO [address] [place] [address] PCP - General Family Medicine 01/05/23 Hiram Mccoy DO [address] [place] [address] Hematology/Oncology 08/01/23 Joy Bolaños RN Specialty Linen Folder Oncology 08/01/23 Personnel Placement Specialist Relationship Specialty Start Date End Date Emily Casanova DO [address] [place] [address] PCP - General Family Medicine 01/05/23 Hiram Mccoy DO [address] [place] [address] Hematology/Oncology 08/01/23 Joy Bolaños RN Specialty Linen Folder Oncology 08/01/23 Personnel Placement Specialist Relationship Specialty Start Date End Date Emily Casanova DO [address] [place] [address] PCP - General Family Medicine 01/05/23 Hiram Mccoy DO [address] [place] [address] Hematology/Oncology 08/01/23 Joy Bolaños RN Specialty Linen Folder Oncology 08/01/23 Personnel Placement Specialist Relationship Specialty Start Date End Date Emily Casanova DO [address] [place] [address] PCP - General Family Medicine 01/05/23 Hiram Mccoy DO [address] [place] [address] Hematology/Oncology 08/01/23 Joy Bolaños RN Specialty Linen Folder Oncology 08/01/23 Personnel Placement Specialist Relationship Specialty Start Date End Date Emily Casanova DO [address] [place] [address] PCP - General Family Medicine 01/05/23 Hiram Mccoy DO [address] [place] [address] Hematology/Oncology 08/01/23 Joy Bolaños RN Specialty Linen Folder Oncology 08/01/23 Personnel Placement Specialist Relationship Specialty Start Date End Date Emily Casanova DO [address] [place] [address] PCP - General Family Medicine 01/05/23 Hiram Mccoy DO [address] [place] [address] Hematology/Oncology 08/01/23 Joy Bolaños RN Specialty Linen Folder Oncology 08/01/23 Personnel Placement Specialist Relationship Specialty Start Date End Date Emily Casanova DO [address] [place] [address] PCP - General Family Medicine 01/05/23 Hiram Mccoy DO [address] [place] [address] Hematology/Oncology 08/01/23 Joy Bolaños RN Specialty Linen Folder Oncology 08/01/23 Personnel Placement Specialist Relationship Specialty Start Date End Date Emily Casanova DO [address] [place] [address] PCP - General Family Medicine 01/05/23 Hiram Mccoy DO [address] [place] [address] Hematology/Oncology 08/01/23 Joy Bolaños RN Specialty Linen Folder Oncology 08/01/23 Personnel Placement Specialist Relationship Specialty Start Date End Date Emily Casanova DO [address] [place] [address] PCP - General Family Medicine 01/05/23 Hiram Mccoy DO [address] [place] [address] Hematology/Oncology 08/01/23 Joy Bolaños RN Specialty Linen Folder Oncology 08/01/23 Personnel Placement Specialist Relationship Specialty Start Date End Date Emily Casanova DO [address] [place] [address] PCP - General Family Medicine 01/05/23 Hiram Mccoy DO [address] [place] [address] Hematology/Oncology 08/01/23 Joy Bolaños RN Specialty Linen Folder Oncology 08/01/23 Personnel Placement Specialist Relationship Specialty Start Date End Date Emily Casanova DO [address] [place] [address] PCP - General Family Medicine 01/05/23 Hiram Mccoy DO [address] [place] [address] Hematology/Oncology 08/01/23 Joy Bolaños RN Specialty Linen Folder Oncology 08/01/23 Personnel Placement Specialist Relationship Specialty Start Date End Date Emily Casanova DO [address] [place] [address] PCP - General Family Medicine 01/05/23 Hiram Mccoy DO [address] [place] [address] Hematology/Oncology 08/01/23 Joy Bolaños RN Specialty Linen Folder Oncology 08/01/23 Personnel Placement Specialist Relationship Specialty Start Date End Date Emily Casanova DO [address] [place] [address] PCP - General Family Medicine 01/05/23 Hiram Mccoy DO [address] [place] [address] Hematology/Oncology 08/01/23 Joy Bolaños RN Specialty Linen Folder Oncology 08/01/23 Personnel Placement Specialist Relationship Specialty Start Date End Date Emily Casanova DO [address] [place] [address] PCP - General Family Medicine 01/05/23 Hiram Mccoy DO [address] [place] [address] Hematology/Oncology 08/01/23 Joy Bolaños RN Specialty Linen Folder Oncology 08/01/23 Personnel Placement Specialist Relationship Specialty Start Date End Date Emily Casanova DO [address] [place] [address] PCP - General Family Medicine 01/05/23 Hiram Mccoy DO [address] [place] [address] Hematology/Oncology 08/01/23 Joy Bolaños RN Specialty Linen Folder Oncology 08/01/23 Personnel Placement Specialist Relationship Specialty Start Date End Date Emily Casanova DO [address] [place] [address] PCP - General Family Medicine 01/05/23 Hiram Mccoy DO [address] [place] [address] Hematology/Oncology 08/01/23 Joy Bolaños RN Specialty Linen Folder Oncology 08/01/23 Personnel Placement Specialist Relationship Specialty Start Date End Date Emily Casanova DO [address] [place] [address] PCP - General Family Medicine 01/05/23 Hiram Mccoy DO [address] [place] [address] Hematology/Oncology 08/01/23 Joy Bolaños RN Specialty Linen Folder Oncology 08/01/23 Personnel Placement Specialist Relationship Specialty Start Date End Date Emily Casanova DO [address] [place] [address] PCP - General Family Medicine 01/05/23 Hiram Mccoy DO [address] [place] [address] Hematology/Oncology 08/01/23 Joy Bolaños RN Specialty Linen Folder Oncology 08/01/23 Personnel Placement Specialist Relationship Specialty Start Date End Date Emily Casanova DO [address] [place] [address] PCP - General Family Medicine 01/05/23 Hiram Mccoy DO [address] [place] [address] Hematology/Oncology 08/01/23 Joy Bolaños RN Specialty Linen Folder Oncology 08/01/23 Personnel Placement Specialist Relationship Specialty Start Date End Date Emily Casanova DO [address] [place] [address] PCP - General Family Medicine 01/05/23 Hiram Mccoy DO [address] [place] [address] Hematology/Oncology 08/01/23 Joy Bolaños RN Specialty Linen Folder Oncology 08/01/23 Personnel Placement Specialist Relationship Specialty Start Date End Date Emily Casanova DO [address] [place] [address] PCP - General Family Medicine 01/05/23 Hiram Mccoy DO [address] [place], [place] [address]261 Hematology/Oncology 08/01/23 Joy Bolaños RN Specialty Linen Folder Oncology 08/01/23 Personnel Placement Specialist Relationship Specialty Start Date End Date Emily Casanova DO [address] [place] [address] PCP - General Family Medicine 01/05/23 Hiram Mccoy DO [address] [place] [address] Hematology/Oncology 08/01/23 Joy Bolñaos RN Specialty Linen Folder Oncology 08/01/23 Personnel Placement Specialist Relationship Specialty Start Date End Date Emily Casanova DO [address] [place] [address] PCP - General Family Medicine 01/05/23 Hiram Mccoy DO [address] [place] [address] Hematology/Oncology 08/01/23 Joy Bolaños RN Specialty Linen Folder Oncology 08/01/23 Personnel Placement Specialist Relationship Specialty Start Date End Date Emily Casanova DO [address] [place] [address] PCP - General Family Medicine 01/05/23 Hiram Mccoy DO [address] [place] [address] Hematology/Oncology 08/01/23 Joy Bolaños RN Specialty Linen Folder Oncology 08/01/23 Personnel Placement Specialist Relationship Specialty Start Date End Date Emily Casanova DO [address] [place] [address] PCP - General Family Medicine 01/05/23 Hiram Mccoy DO [address] [place] [address] Hematology/Oncology 08/01/23 Joy Bolaños RN Specialty Linen Folder Oncology 08/01/23 Personnel Placement Specialist Relationship Specialty Start Date End Date Emily Casanova DO [address] [place] [address] PCP - General Family Medicine 01/05/23 Hiram Mccoy DO [address] [place] [address] Hematology/Oncology 08/01/23 Joy Bolaños RN Specialty Linen Folder Oncology 08/01/23 Personnel Placement Specialist Relationship Specialty Start Date End Date Emily Casanova DO [address] [place] [address] PCP - General Family Medicine 01/05/23 Hiram Mccoy DO [address] [place] [address] Hematology/Oncology 08/01/23 Joy Bolaños RN Specialty Linen Folder Oncology 08/01/23 Personnel Placement Specialist Relationship Specialty Start Date End Date Emily Casanova DO [address] [place] [address] PCP - General Family Medicine 01/05/23 Hiram Mccoy DO [address] [place] [address] Hematology/Oncology 08/01/23 Joy Bolaños RN Specialty Linen Folder Oncology 08/01/23 Personnel Placement Specialist Relationship Specialty Start Date End Date Emily Casanova DO [address] [place] [address] PCP - General Family Medicine 01/05/23 Hiram Mccoy DO [address] [place] [address] Hematology/Oncology 08/01/23 Joy Bolaños RN Specialty Linen Folder Oncology 08/01/23 Personnel Placement Specialist Relationship Specialty Start Date End Date Emily Casanova DO [address] [place] [address] PCP - General Family Medicine 01/05/23 Hiram Mccoy DO [address] [place], [place] 357501 Hematology/Oncology 08/01/23 Joy Bolaños RN Specialty Linen Folder Oncology 08/01/23 Rohit Miles MD [address] [place], [place] 753843 General Surgery 05/03/24 Guerrero Barry MD [address] [place] [address] Gynecology 05/03/24 Personnel Placement Specialist Relationship Specialty Start Date End Date Emily Casanova DO [address] [place], [place] 434191 PCP - General Family Medicine 01/05/23 Hiram Mccoy DO [address] [place], [place] 099881 Hematology/Oncology 08/01/23 Joy Bolaños RN Specialty Linen Folder Oncology 08/01/23 Rohit Miles MD [address] [place], [place] [id number] General Surgery 05/03/24 [email or web address] [address] [place] [address] Gynecology 05/03/24 Personnel Placement Specialist Relationship Specialty Start Date End Date Emily Casanova DO [address] [place], [place] [address]251 PCP - General Family Medicine 01/05/23 Hiram Mccoy DO [address] [place], [place] 869551 Hematology/Oncology 08/01/23 Joy Bolaños RN Specialty Linen Folder Oncology 08/01/23 Rohit Miles MD [address] [place], [place] 422443 General Surgery 05/03/24 Guerrero Barry MD [address] [place], [place] 5730408 Gynecology 05/03/24 Personnel Placement Specialist Relationship Specialty Start Date End Date Emily Casanova DO [address] [place], [place] [address] PCP - General Family Medicine 01/05/23 Hiram Mccoy DO [address] [place], [place] 377751 Hematology/Oncology 08/01/23 Joy Bolaños RN Specialty Linen Folder Oncology 08/01/23 Rohit Miles MD [address] [place], [place] [id number] General Surgery 05/03/24 Guerrero Barry MD [address] [place] [address] Gynecology 05/03/24 Personnel Placement Specialist Relationship Specialty Start Date End Date Emily Casanova DO [address] [place], [place] 8[address]241 PCP - General Family Medicine 01/05/23 Hiram Mccoy DO [address] [place] [address] Hematology/Oncology 08/01/23 Joy Bolaños RN Specialty Linen Folder Oncology 08/01/23 Rohit Miles MD [address] [place], [place] 988823 General Surgery 05/03/24 Guerrero Barry MD [address] [place] [address] Gynecology 05/03/24 Personnel Placement Specialist Relationship Specialty Start Date End Date Emily Casanova DO [address] [place], [place] [address] PCP - General Family Medicine 01/05/23 Hiram Mccoy DO [address] [facility] [place] [place] 94[address]51 Hematology/Oncology 08/01/23 Joy Bolaños RN Specialty Linen Folder Oncology 08/01/23 Rohit Miles MD [address] [place], [place] [id number] General Surgery 05/03/24 [email or web address] MD [address] [place] [address] Gynecology 05/03/24 Personnel Placement Specialist Relationship Specialty Start Date End Date Emily Casanova DO [address] [place], [place] [address] PCP - General Family Medicine 01/05/23 Hiram Mccoy DO [address] [place], [place] 6[address]41 Hematology/Oncology 08/01/23 Joy Bolaños RN Specialty Linen Folder Oncology 08/01/23 Rohit Miles MD [address] [place], [place] 498553 General Surgery 05/03/24 [facility] [address] [place], [place] 9712308 Gynecology 05/03/24 Personnel Placement Specialist Relationship Specialty Start Date End Date Emily Casanova DO [address] [place], [place] 28[address] PCP - General Family Medicine 01/05/23 Hiram Mccoy DO [address] [facility] [place], [place] 011371 Hematology/Oncology 08/01/23 Joy Bolaños RN Specialty Linen Folder Oncology 08/01/23 Rohit Miles MD [address] [place], [place] 104503 General Surgery 05/03/24 [facility] Pars[facility] MD [address] [place], [place] 8929508 Gynecology 05/03/24 Personnel Placement Specialist Relationship Specialty Start Date End Date Emily Casanova DO [address] [place], [place] [id number] PCP - General Family Medicine 01/05/23 Hiram Mccoy DO [address] [facility] [place], [place] 68[address] Hematology/Oncology 08/01/23 Joy Bolaños RN Specialty Linen Folder Oncology 08/01/23 Rohit Miles MD [address] [place], [place] 972613 General Surgery 05/03/24 Guerrero Barry MD [address] [place] [address] Gynecology 05/03/24 Personnel Placement Specialist Relationship Specialty Start Date End Date Emily Casanova DO [address] [place], [place] 120[address] PCP - General Family Medicine 01/05/23 Hiram Mccoy DO [address] [facility] [place] 4339[address] Hematology/Oncology 08/01/23 Joy Bolaños RN Specialty Linen Folder Oncology 08/01/23 Rohit Miles MD [address] [place], [place] 337933 General Surgery 05/03/24 Guerrero Barry MD [address] [place] [address] Gynecology 05/03/24 Personnel Placement Specialist Relationship Specialty Start Date End Date Emily Casanova DO [address] [place], [place] 4916[address] PCP - General Family Medicine 01/05/23 Hiram Mccoy DO [address] [place], [place] 833801 Hematology/Oncology 08/01/23 Joy Bolaños RN Specialty Linen Folder Oncology 08/01/23 Rohit Miles MD [address] [place], [place] 856643 General Surgery 05/03/24 Guerrero Barry MD [address] [place] [address] Gynecology 05/03/24 Personnel Placement Specialist Relationship Specialty Start Date End Date Emily Casanova DO [address] [place] [address] PCP - General Family Medicine 01/05/23 Hiram Mccoy DO [address] [place] [place], [place] 915961 Hematology/Oncology 08/01/23 Joy Bolaños RN Specialty Linen Folder Oncology 08/01/23 Rohit Miles MD [address] [place], [place] 981063 General Surgery 05/03/24 Guerrero Barry MD [address] [place] [address] Gynecology 05/03/24 Personnel Placement Specialist Relationship Specialty Start Date End Date Emily Casanova DO [address] [place], [place] [address] PCP - General Family Medicine 01/05/23 Hiram Mccoy DO [address] [place], [place] 095501 Hematology/Oncology 08/01/23 Joy Bolaños RN Specialty Linen Folder Oncology 08/01/23 Rohit Miles MD [address] [place], [place] 451843 General Surgery 05/03/24 Guerrero Vilchis MD [address] [place], [place] 3773708 Gynecology 05/03/24 Personnel Placement Specialist Relationship Specialty Start Date End Date Emily Casanova DO [address] [place] [address] PCP - General Family Medicine 01/05/23 Hiram Mccoy DO [address] [facility] [place] [address] Hematology/Oncology 08/01/23 Joy Bolaños RN Specialty Linen Folder Oncology 08/01/23 Rohit Miles MD [address] [place], [place] 387753 General Surgery 05/03/24 Guerrero Vilchis MD [address] [place] 5323108 Gynecology 05/03/24 Personnel Placement Specialist Relationship Specialty Start Date End Date Emily Casanova DO [address] [place] [address] PCP - General Family Medicine 01/05/23 Hiram Mccoy DO [address] [place] [address] Hematology/Oncology 08/01/23 Joy Bolaños RN Specialty Linen Folder Oncology 08/01/23 Rohit Miles MD [address] [place], [place] 517063 General Surgery 05/03/24 Guerrero Barry MD [address] [place] [address] Gynecology 05/03/24 Personnel Placement Specialist Relationship Specialty Start Date End Date Emily Casanova DO [address] [place] [address] PCP - General Family Medicine 01/05/23 Hiram Mccoy DO [address] [place] [address] Hematology/Oncology 08/01/23 Joy Bolaños RN Specialty Linen Folder Oncology 08/01/23 Rohit Miles MD [address] [place], [place] 809623 General Surgery 05/03/24 Guerrero Barry MD [address] [place], [place] 70[address]8 Gynecology 05/03/24 Personnel Placement Specialist Relationship Specialty Start Date End Date Emily Casanova DO [address] [place] [address] PCP - General Family Medicine 01/05/23 Hiram Mccoy DO [address] [place] [address] Hematology/Oncology 08/01/23 Joy Bolaños RN Specialty Linen Folder Oncology 08/01/23 Rohit Miles MD [address] [place], [place] 892543 General Surgery 05/03/24 Guerrero Barry MD [address] [place] [address] Gynecology 05/03/24 Personnel Placement Specialist Relationship Specialty Start Date End Date Emily Casanova DO [address] [place] [address] PCP - General Family Medicine 01/05/23 Hiram Mccoy DO [address] [place], [place] 671231 Hematology/Oncology 08/01/23 oJy Bolaoñs RN Specialty Linen Folder Oncology 08/01/23 Rohit Miles MD [address] [place], [place] 727543 General Surgery 05/03/24 Guerrero Barry MD [address] [place], [place] 5558708 Gynecology 05/03/24 Personnel Placement Specialist Relationship Specialty Start Date End Date Emily Casanova DO [address] [place], [place] 47[address]11 PCP - General Family Medicine 01/05/23 Hiram Mccoy DO [address] [place], [place] 018181 Hematology/Oncology 08/01/23 Joy Bolaños RN Specialty Linen Folder Oncology 08/01/23 Rohit Miles MD [address] [place], [place] 94702333 General Surgery 05/03/24 [email or web address] [address] [place] [address] Gynecology 05/03/24 Personnel Placement Specialist Relationship Specialty Start Date End Date Emily Casanova DO [address] [place] [address] PCP - General Family Medicine 01/05/23 Hiram Mccoy DO [address] [place], [place] 109331 Hematology/Oncology 08/01/23 Joy Bolaños RN Specialty Linen Folder Oncology 08/01/23 Rohit Miles MD [address] [place], [place] 01233333 General Surgery 05/03/24 [email or web address] [place] [address] Gynecology 05/03/24 Personnel Placement Specialist Relationship Specialty Start Date End Date JocelyneEmily DO [address] [place] [address] PCP - General Family Medicine 01/05/23 Hiram Mccoy DO [address] [place], [place] 825481 Hematology/Oncology 08/01/23 Joy Bolaños RN Specialty Linen Folder Oncology 08/01/23 Rohit Miles MD [address] [place], [place] 480[address] General Surgery 05/03/24 Guerrero Vilchis MD [address] [place] [address] Gynecology 05/03/24 Personnel Placement Specialist Relationship Specialty Start Date End Date JocelyneEmily DO [address] [place] [address] PCP - General Family Medicine 01/05/23 Hiram Mccoy DO [address] [place] [address] Hematology/Oncology 08/01/23 Joy Bolaños RN Specialty Linen Folder Oncology 08/01/23 Rohit Miles MD [address] [place], [place] 448[address] General Surgery 05/03/24 Guerrero Barry MD [address] [place], [place] 1928908 Gynecology 05/03/24 Personnel Placement Specialist Relationship Specialty Start Date End Date JocelyneEmily DarrylDO [address] [place] [address] PCP - General Family Medicine 01/05/23 Hiram Mccoy DO [address] [place], [place] 838741 Hematology/Oncology 08/01/23 Joy Bolaños RN Specialty Linen Folder Oncology 08/01/23 Rohit Miles MD [address] [place], [place] 95573333 General Surgery 05/03/24 [email or web address] [place] [address] Gynecology 05/03/24 Personnel Placement Specialist Relationship Specialty Start Date End Date Emily Casanova DO [address] [place] [address] PCP - General Family Medicine 01/05/23 Hiram Mccoy DO [address] [place], [place] 851581 Hematology/Oncology 08/01/23 Joy Bolaños RN Specialty Linen Folder Oncology 08/01/23 Rohit Miles MD [address] [place], [place] 976583 General Surgery 05/03/24 [email or web address] [place] [address] Gynecology 05/03/24 Personnel Placement Specialist Relationship Specialty Start Date End Date Emily Casanova DO [address] [place] [address] PCP - General Family Medicine 01/05/23 Hiram Mccoy DO [address] [place] [address] Hematology/Oncology 08/01/23 Joy Bolaños RN Specialty Linen Folder Oncology 08/01/23 Rohit Miles MD [address] [place], [place] 115053 General Surgery 05/03/24 [email or web address] [place] [address] Gynecology 05/03/24 Personnel Placement Specialist Relationship Specialty Start Date End Date Emily Casanova DO [address] [place] [place] [address] PCP - General Family Medicine 01/05/23 Hiram Mccoy DO [address] [place] [address] Hematology/Oncology 08/01/23 Joy Bolaños RN Specialty Linen Folder Oncology 08/01/23 Rohit Miles MD [address] [place], [place] 031603 General Surgery 05/03/24 [place] [address] Gynecology 05/03/24 Personnel Placement Specialist Relationship Specialty Start Date End Date Emily Casanova DO [address] [place] [address] PCP - General Family Medicine 01/05/23 Hiram Mccoy DO [address] [facility] [place] [address] Hematology/Oncology 08/01/23 Joy Bolaños RN Specialty Linen Folder Oncology 08/01/23 Rohit Miles MD [address] [place], [place] 731813 General Surgery 05/03/24 Guerrero Barry MD [address] [place] [address] Gynecology 05/03/24 Personnel Placement Specialist Relationship Specialty Start Date End Date Emily Casanova DO [address] [place] [address] PCP - General Family Medicine 01/05/23 Hiram Mccoy DO [address] [place] [address] Hematology/Oncology 08/01/23 Joy Bolaños RN Specialty Linen Folder Oncology 08/01/23 Rohit Miles MD [address] [place], [place] 931383 General Surgery 05/03/24 Guerrero [place] [address] Gynecology 05/03/24 Personnel Placement Specialist Relationship Specialty Start Date End Date Emily Casanova DO [address] [place], [place] 435841 PCP - General Family Medicine 01/05/23 Hiram Mccoy DO [address] [place], [place] 042641 Hematology/Oncology 08/01/23 Joy Bolaños RN Specialty Linen Folder Oncology 08/01/23 Rohit Miles MD [address] [place], [place] 316933 General Surgery 05/03/24 Guerrero Barry MD [address] [place] [address] Gynecology 05/03/24 Personnel Placement Specialist Relationship Specialty Start Date End Date Emily Casanova DO [address] [place], [place] [address]351 PCP - General Family Medicine 01/05/23 Hiram Mccoy DO [address] [place], [place] 726291 Hematology/Oncology 08/01/23 Joy Bolaños RN Specialty Linen Folder Oncology 08/01/23 Rohit Miles MD [address] [place], [place] 922083 General Surgery 05/03/24 Guerrero Barry MD [address] [place] [address] Gynecology 05/03/24 Personnel Placement Specialist Relationship Specialty Start Date End Date JocelyneEmily solorioDO [address] [place], [place] 42[address] PCP - General Family Medicine 01/05/23 Hiram Mccoy DO [address] [place], [place] 2267[address] Hematology/Oncology 08/01/23 Joy Bolaños RN Specialty Linen Folder Oncology 08/01/23 Rohit Miles MD [address] [place], [place] 33374333 General Surgery 05/03/24 [facility] Parsons MD [address] [place] [address] Gynecology 05/03/24 Personnel Placement Specialist Relationship Specialty Start Date End Date Jocelyne Emily AndrewsDO [address] [place], [place] [address]131 PCP - General Family Medicine 01/05/23 Hiram Mccoy DO [address] [place] [address] Hematology/Oncology 08/01/23 Joy Bolaños RN Specialty Linen Folder Oncology 08/01/23 Rohit Miles MD [address] [place], [place] 226233 General Surgery 05/03/24 RauhGuerrero Barry MD [address] [place] [address] Gynecology 05/03/24 Phong Stout LISW [address] [place] [address] Telephone Services Sales Representative Hematology/Oncology 03/20/25 Personnel Placement Specialist Relationship Specialty Start Date End Date Emily Casanova DO [address] [place] [address] PCP - General Family Medicine 01/05/23 Hiram Mccoy DO [address] [place], [place] 9088[address] Hematology/Oncology 08/01/23 Joy Bolaños RN Specialty Linen Folder Oncology 08/01/23 Rohit Miles MD [address] [place], [place] 1915[address] General Surgery 05/03/24 [facility] Parsons MD [address] [place] [address] Gynecology 05/03/24 Phong Stout LISW [address] [place] [address] Telephone Services Sales Representative Hematology/Oncology 03/20/25 Personnel Placement Specialist Relationship Specialty Start Date End Date Emily Casanova DO [address] [place] [address] PCP - General Family Medicine 01/05/23 Hiram Mccoy DO [address] [place] [address] Hematology/Oncology 08/01/23 Joy Bolaños RN Specialty Linen Folder Oncology 08/01/23 Rohit Miles MD [address] [place], [place] 8[address]283 General Surgery 05/03/24 Guerrero Vilchis MD [address] [place] [address] Gynecology 05/03/24 Phong Stout LISW [address] [place] [address] Telephone Services Sales Representative Hematology/Oncology 03/20/25 Personnel Placement Specialist Relationship Specialty Start Date End Date Emily Casanova DO [address] [place] [address] PCP - General Family Medicine 01/05/23 Hiram Mccoy DO [address] [place], [place] 257[address] Hematology/Oncology 08/01/23 Joy Bolaños RN Specialty Linen Folder Oncology 08/01/23 Rohit Miles MD [address] [place], [place] 9[address]133 General Surgery 05/03/24 Guerrero Vilchis MD [address] [place] [address] Gynecology 05/03/24 Phong Stout LISW [address] [place] [address] Telephone Services Sales Representative Hematology/Oncology 03/20/25 Personnel Placement Specialist Relationship Specialty Start Date End Date Emily Casanova DO [address] [place] [address] PCP - General Family Medicine 01/05/23 Hiram Mccoy DO [address] [place] [address] Hematology/Oncology 08/01/23 Joy Bolaños RN Specialty Linen Folder Oncology 08/01/23 Rohit Miles MD [address] [facility] [address] [place] [address] General Surgery 05/03/24 [facility] Pars[facility] MD [address] [facility] [place] [address] Gynecology 05/03/24 Phong Stout LISW [address] [place] [address] Telephone Services Sales Representative Hematology/Oncology 03/20/25 INFORMATION SOURCE (unrecogn ized section and content) DATE CREATED AUTHOR 07/21/2023 [facility] ([place]) DATE CREATED AUTHOR AUTHOR'S ORGANIZ ATION 08/05/2023 [facility] DATE CREATED AUTHOR AUTHOR'S ORGANIZ ATION 04/13/2025 [facility] DATE CREATED AUTHOR AUTHOR'S ORGANIZ ATION 05/06/2025 [facility] DATE CREATED AUTHOR AUTHOR'S ORGANIZ ATION 05/06/2025 [facility] DATE CREATED AUTHOR AUTHOR'S ORGANIZ ATION 05/08/2025 [facility] Inactive Administered Medications - up to 3 most recent administrations Administered Medications (un recognized section and content) Medication Order MAR Action Action Date Dose Rate Site CARBOplatin 400 mg in NaCl 0.9% 315 mL (PARAPLATIN) 400 mg (rounded from 420 mg, Target AUC = 6), INTRAVENOUS, Administer over 30 Minutes, ONCE, 1 dose, On Tue08/30/23 at 0800, Approx Total Volume: exp 0800 08/31/23 (room temp) Hazardous Chemotherapy Drug: Use appropriate PPE. Antineoplastic Irritant. New Bag/Syringe/Bottle 08/30/2023 11:39 AM EST 400 mg dexAMETHasone 20 mg in NaCl 0.9% 50 mL (DECADRON) 20 mg, INTRAVENOUS, Administer over 15 Minutes, ONCE, 1 dose, On Tue08/30/23 at 0800, Give prior to chemotherapy. Refrigerate. New Bag/Syringe/Bottle 08/30/2023 8:14 AM EST 20 mg diphenhydrAMINE 12.5 mg injection (BENADRYL) 12.5 mg, INTRAVENOUS, ONCE, 1 dose, On Tue08/30/23 at 0800, Give prior to chemotherapy. Given 08/30/2023 8:02 AM EST 12.5 mg famotidine 20 mg injection (PEPCID) 20 mg, INTRAVENOUS, ONCE, 1 dose, On Tue08/30/23 at 0800, Give prior to chemotherapy. REFRIGERATE Given 08/30/2023 8:04 AM EST 20 mg ondansetron (PF) 8 mg injection (ZOFRAN) 8 mg, INTRAVENOUS, ONCE, 1 dose, On Tue08/30/23 at 0800, Administer 30 minutes prior to infusion. Given 08/30/2023 8:06 AM EST 8 mg PACLitaxel 270 mg in NaCl 0.9% 585 mL (TAXOL) 270 mg (rounded from 276.5 mg = 175 mg/m2 1.58 m2 Treatment Plan BSA from Recorded weight), INTRAVENOUS, Administer over 3 Hours, ONCE, 1 dose, On Tue08/30/23 at 0800, Approx Total Volume exp 1400 08/31/23 (room temp) Hazardous Chemotherapy Drug: Use appropriate PPE. Antineoplastic Irritant with Vesicant Potential. Administer with non-DEHP 0.2 micron filter and tubing. New Bag/Syringe/Bottle 08/30/2023 8:36 AM EST 270 mg Inactive Administered Medications - up to 3 most recent administrations Medication Order MAR Action Action Date Dose Rate Site CARBOplatin 400 mg in NaCl 0.9% 315 mL (PARAPLATIN) 400 mg (rounded from 405 mg, Target AUC = 6), INTRAVENOUS, Administer over 30 Minutes, ONCE, 1 dose, On Tue09/20/23 at 0830, Approx Total Volume: exp 0900 09/20/23 (room temp) Hazardous Chemotherapy Drug: Use appropriate PPE. Antineoplastic Irritant. New Bag/Syringe/Bottle 09/20/2023 11:59 AM EST 400 mg dexAMETHasone 20 mg in NaCl 0.9% 50 mL (DECADRON) 20 mg, INTRAVENOUS, Administer over 15 Minutes, ONCE, 1 dose, On Tue09/20/23 at 0830, Give prior to chemotherapy. Refrigerate. New Bag/Syringe/Bottle 09/20/2023 8:34 AM EST 20 mg diphenhydrAMINE 12.5 mg injection (BENADRYL) 12.5 mg, INTRAVENOUS, ONCE, 1 dose, On Tue09/20/23 at 0830, Give prior to chemotherapy. Given 09/20/2023 8:27 AM EST 12.5 mg famotidine 20 mg injection (PEPCID) 20 mg, INTRAVENOUS, ONCE, 1 dose, On Tue09/20/23 at 0830, Give prior to chemotherapy. REFRIGERATE Given 09/20/2023 8:27 AM EST 20 mg ondansetron (PF) 8 mg injection (ZOFRAN) 8 mg, INTRAVENOUS, ONCE, 1 dose, On Tue09/20/23 at 0830, Administer 30 minutes prior to infusion. Given 09/20/2023 8:27 AM EST 8 mg PACLitaxel 269.5 mg in NaCl 0.9% 584.9167 mL (TAXOL) 269.5 mg (175 mg/m2 1.54 m2 Treatment Plan BSA from Recorded weight), INTRAVENOUS, Administer over 3 Hours, ONCE, 1 dose, On Tue09/20/23 at 0830, Approx Total Volume exp 1400 09/21/23 (room temp) Hazardous Chemotherapy Drug: Use appropriate PPE. Antineoplastic Irritant with Vesicant Potential. Administer with non-DEHP 0.2 micron filter and tubing. New Bag/Syringe/Bottle 09/20/2023 8:55 AM EST 269.5 mg FOR RECORDS PERTAINING TO PATIENTS WHO ARE OR HAVE BEEN ENROLLED IN A CHEMICAL DEPENDENCY/SUBSTANCEABUSE PROGRAM, SOME INFORMATION MAY BE OMITTED. This clinical summary was aggregated from multiple sources. Caution should be exercised in using it in the provision of clinical care. This summary normalizes information from multiple sources, and as a consequence, information in this document may materially change the coding, format and clinical context of patient data. In addition, data may be omitted in some cases. CLINICAL DECISIONS SHOULD BE BASED ON THE PRIMARY CLINICAL RECORDS. [employer] [facility]. provides no warranty or guarantee of the accuracy or completeness of information in this document.
[2025-05-10 03:39] LABS: Differential Comment SCANNED
[2025-05-10 03:40] LABS: Anisocytosis 2+; Polychromasia 1+
--- NOTE | 2025-05-10 04:05 | PCM.HP.STD ---
[facility] - [facility] Date of Admission: 05/10/25 Date of Service: 05/10/25 Chief Complaint: shortness of breath [facility] Narrative GASPER REED, is a 74 F with a PMH as outlined who presents via the ED on 05/10/2025 with a complaint of shortness of breath. She was recently seen at [facility] one week ago for shortness of breath and subsequently transferred to [facility] and managed for pneumonia. She was placed on antibiotics, had an echo which showed preserved EF and subsequently discharged home the next day. She however still remained short of breath so she came in to the ED. She denied any cough, chest pain, palpitations, nausea, vomiting or any other symptoms. She has been taking the oral antibiotics ordered but her symptoms were still persisting so she came in to the ED. Vitals in the ED were BP of 183/100, MD of 110, RR of 21 and temp of 98.1F. She was saturating at 90% on room air. CBC showed wbc of 3.8, hb of 9.7, platelets of 109. Chemistry showed sodium od 138, potassium of 4.3, bicarb of 20.9, Cr of 0.9. Pro BNP was 22798 and procalcitonin was 0.14. CXR showed bilateral lower lung zone pneumonia and effusion. She is being admitted to be managed for hypoxia due to acute exacerbation of heart failure with preserved EF. [facility] Medical History Wears glasses Easy bruising Non-smoker Leg cramps History of stress test Rheumatoid arthritis Hypertension Home Medications ?Medication ?Instructions ?Recorded ?Last Taken ?Type calcium 100 mg capsule 600 mg PO DAILY 02/16/23 Unknown History oxybutynin chloride 15 mg 15 mg PO DAILY 01/12/24 Unknown History tablet,extended release 24 hr pantoprazole 40 mg tablet,delayed 40 mg PO DAILY 01/12/24 Unknown History release vitamin B complex (Vitamins B 1 cap PO DAILY 01/12/24 Unknown History Complex capsule) clonidine HCl 0.1 mg tablet 0.1 mg PO DAILY PRN High BP SBP>160 05/09/25 Unknown History lisinopril 40 mg tablet 40 mg PO DAILY 05/09/25 Unknown History cefdinir 300 mg capsule 300 mg PO DAILY 05/10/25 Unknown History doxycycline hyclate 100 mg capsule 100 mg PO 05/10/25 Unknown History Allergy/AdvReac Type Severity Reaction Status Date / Time Penicillins Allergy Unknown Verified 05/10/25 02:01 erythromycin base AdvReac Abd Verified 05/10/25 02:01 cramps/diarrhea Family History Father Hypertension Heart disease Grandmother Breast cancer Aunt Breast cancer Mother Colon cancer Surgical History History of wisdom tooth extraction (~1979) H/O tubal ligation (~1981) Social History adopted: No household members: spouse number of children: 2 current occupational status: retired current occupational exposures/hazards: No Smoking Status: Never smoker ROS Constitutional Constitutional: Reports fatigue, malaise and weakness; Denies anorexia, chills or fever(s) Eyes Eyes: Denies change in vision ENT HEENT: Denies dysphagia or headache(s) Cardiovascular Cardiovascular: Reports dyspnea on exertion; Denies chest pain, edema, lightheadedness, orthopnea, palpitations, paroxysmal nocturnal dyspnea, rapid heart rate or syncope Respiratory/Chest Respiratory/Chest: Reports dyspnea, shortness of breath at rest and shortness of breath with exertion; Denies cough, hemoptysis, productive cough or wheezing Gastrointestinal Gastrointestinal: Denies abdominal pain, coffee ground emesis, diarrhea, nausea or vomiting Genitourinary Genitourinary: Denies burning urination or dysuria Musculoskeletal Musculoskeletal: Denies arthralgias Neurologic Neurologic: Denies dizziness, focal weakness, headache(s), numbness, seizures or syncope Psychiatric Psychiatric: Denies anxiety Vital Signs Vital Signs Vital Signs: 05/10/25 01:54 05/10/25 01:54 05/10/25 01:57 Temperature 97.5 F L 97.5 F L Temperature Source Oral Oral Pulse Rate 120 H 97 113 H Respiratory Rate 27 H 23 H 24 H Respiratory Effort Respiratory Depth Respiratory Pattern Blood Pressure 206/121 H 194/104 H 194/104 H Blood Pressure Mean 149 134 134 Pulse Ox 87 95 89 Oxygen Delivery Method Room Air Room Air Nasal Cannula Oxygen Flow Rate (L/min) 2 05/10/25 01:57 05/10/25 02:28 05/10/25 02:57 Temperature 98 F Temperature Source Oral Pulse Rate 101 H 99 Respiratory Rate 22 H 25 H Respiratory Effort Short of Breath Labored Accessory Muscle Use Respiratory Depth Deep Respiratory Pattern Tachypnea Tachypnea Blood Pressure 169/90 H Blood Pressure Mean 116 Pulse Ox 90 Oxygen Delivery Method Nasal Cannula Room Air Oxygen Flow Rate (L/min) 2 05/10/25 03:00 Temperature 97.8 F Temperature Source Oral Pulse Rate 107 H Respiratory Rate 19 H Respiratory Effort Respiratory Depth Respiratory Pattern Blood Pressure 174/111 H Blood Pressure Mean 132 Pulse Ox 92 Oxygen Delivery Method Room Air Oxygen Flow Rate (L/min) Weight Weight: 123 lb 0.287 oz Body Mass Index (BMI) 22.5 Physical Exam Const alert, oriented x3 and no apparent distress General Appearance: cooperative HEENT normocephalic, head/scalp atraumatic, hearing grossly normal bilaterally, moist oral mucous membranes and oropharynx normal Mouth: oral and palatal mucosa normal Eyes EOMs intact bilaterally and conjunctivae normal Neck supple and no JVD Resp Resp Narrative: mildly diminished breath souunds bibasally, no wheezes or crackles. On 2L of oxygen by nasal canula GI normal to inspection, nondistended, normoactive bowel sounds, soft to palpation and non-tender Extremity normal to inspection, full ROM and no clubbing, cyanosis or edema Neuro oriented x3, CN's II-XII intact bilaterally and moves all extremities Sensorium / Orientation: awake and alert Motor Exam: strength 5/5 throughout Psych affect normal Results Lab / Micro Data 05/10/25 02:25 05/10/25 02:25 Labs: Laboratory Results - last 24 hr 05/10/25 02:25: WBC 3.8 L, RBC 2.95 L, Hgb 9.7 L, Hct 29.3 L, MCV 99.3 H, MCH 32.9 H, MCHC 33.1, RDW Std Deviation 74.7 H, RDW Coeff of Delphine 20.6 H, Plt Count 109 L, MPV 11.3, Immature Gran % (Auto) 0.500, Neut % (Auto) 59.8, Lymph % (Auto) 29.2, Laurel % (Auto) 8.4, Eos % (Auto) 1.6, Baso % (Auto) 0.5, Absolute Neuts (auto) 2.3, Absolute Lymphs (auto) 1.12, Nucleated RBC % 0, Differential Comment SCANNED, Platelet Estimate ADEQUATE, Polychromasia 1+, Anisocytosis 2+, Sodium 138, Potassium 4.3, Chloride 107, Carbon Dioxide 20.9 L, Anion Gap 10, BUN 32 H, Creatinine 0.90, Estim Creat Clear Calc 43.37 L, Est GFR (MDRD) Non-Af 68, BUN/Creatinine Ratio 36.1 H, Glucose 113 H, Lactic Acid < 1.0, Calcium 9.1, Magnesium 1.6, [place] [address] H, Procalcitonin 0.14 H Assessment & Plan Assessment/Plan (1) Heart failure: PLAN: Plan #Hypoxia due to acute exacerbation of heart failure with preserved EF was admitted with a complaint of shortness of breath. She had been seen at [facility] with similar symptoms a few days ago and was transferred to [facility], from where she was discharged after a day, on oral antibiotics. She apparently had a 2D echo on 05/05/2025 at [facility] which showed preserved EF of 61% and normal LV systolic function with mildly dilated left ventricle; CXR done here showed bilateral lower lung zones and pneumonic consolidations as well as mild bilateral pleural effusion she was not given any diuresis BNP today is >99797. She came back with shortness of breath and was found to be hypoxic on rest and with ambulation. Diurese with IV lasix 40mg bid order records from [facility] to evaluate 2D echo monitor intake and output. Fluid restriction to 1500cc daily CXR showed bilateral lower lung pneumonia and effusion. Procalcitonin is elevated at 0.14 Place on IV ceftriaxone and doxycycline, as she is allergic to erythromycin and therefore azithromycin. check urine for strep and legionella check respiratory panel #History of ovarian cancer: Undergoing chemotherapy.Last session of chemotherapy was on May 01. She follows with Dr Mccoy. To follow up with Dr Mccoy on outpatient basis #Hypertension: BP is elevated in the 180s systolic. Will resume BP meds. IV hydralazine prn. Give a dose of clonidine 0.2mg x 1 also DVT prophylaxis: lovenox Code status: Full code Patient and family counseled extensively about different types of CODE STATUS including full code, DNR CCA and DNR CCA. Patient elects to be full code. Total [id number] time 17 minutes. # Charges/Coding Visit Charges Inpatient E&M: 57104 Init Hosp L3 Procedures Hospitalists Procedures: 20774 Advncd Care Plan 30 Min
--- OUTSIDE RECORDS SUMMARY | 2025-05-10 04:46 | XMS RPT_ITS | CCD ---
Author Organization [facility] [employer] Care Team Providers Care Loss Prevention Research Engineer Name Role Phone Feliz RICKS, Krystian Silva Primary Care Provider Dr. Emily Casanova Primary Care Provider Dr. Emily Casanova Referring Provider [phone] Dr. Alaina Tellez Attending Provider [phone] PHYSICIAN, NONE Attending Unavailable PHYSICIAN, NONE Primary Care Unavailable TAMEKA STEPHENSON Admitting Unavailable TAMEKA STEPHENSON Attending Unavailable EMILY CASANOVA Primary Care Unavailable Emily Casanova DO Primary Care Provider Jaren Mccoy DO Unavailable Miky RN, Joy Unavailable Unavailable Emily Casanova DO Primary Care Provider Rohit Miles MD Unavailable Ambar Vilchis MD Unavailable [phone] Mindy Smith Unavailable UnavailEmily Braswell Primary Care Unavailable Jaren Mccoy Referring Unavailable Jaren Mccoy Attending Unavailable Nikki Persaud Referring Unavailable Nikki Persaud Attending Unavailable Emily Casanova Primary Care Unavailable BART SCHRADER DO Attending Unavailab EMILY Zimmerman Primary Care Unavailable AMBAR VILCHIS Attending Unavailable EMILY CASANOVA Primary Care Unavailable MAYTE GONZALEZ Referring UnavailROHIT Garcia Referring UnavailEMILY Braswell Primary Care Unavailable EMILY CASANOVA Primary Care Unavailable RYLEE VALERIO Referring Unavailable EMILY CASANOVA Primary Care Unavailable AMBAR VILCHIS Attending Unavailable RAUH-ANAI, AMBAR A Referring Unavailable JOCELYNE, EMILY A Primary Care Unavailable RAUH-ANAI, AMBAR A Referring Unavailable MALIKOWSKI, MAYTE Millan Attending Unavailabl e BRANDSTETTER, ROHIT Attending Unavailabl e JOCELYNE, EMILY A Primary Care Unavailable RAUH-ANAI, AMBAR A Referring Unavailable JOCELYNE, EMILY A Primary Care Unavailable MALIKOWSKI, MAYTE L Attending Unavailabl e JOCELYNE, EMILY A Primary Care Unavailable BRANDSTETTER, ROHIT Attending Unavailabl e BRANDSTETTER, ROHIT Referring Unavailabl e JOCLEYNE, EMILY A Primary Care Unavailable BRANDSTETTER, ROHIT Admitting Unavailabl e BRANDSTETTER, ROHIT Attending Unavailabl e JOCELYNE, EMILY A Primary Care Unavailable MINOTTIPING Referring Unavailable TILLINGHAST, GIOVANNY Consulting Unavailable AKRAM, APRIL Admitting Unavailable AKRAM, APRIL Attending Unavailable BRANDSTETTER, ROHIT Referring Unavailabl e JOCELYNE, EMILY A Primary Care Unavailable JOCELYNE, EMILY A Primary Care Unavailable MASCI, JAREN A Referring Unavailable JOCELYNE, EMILY A Primary Care Unavailable MASCI, JAREN A Attending Unavailable JOCELYNE, EMILY A Primary Care Unavailable JOCELYNE, EMILY A Primary Care Unavailable MASCI, JAREN A Referring Unavailable JOCELYNE, EMILY A Primary Care Unavailable JOCELYNE, EMILY A Primary Care Unavailable SELF Referring Unavailable MARK KRUSE II Attending Unavailabl e JOCELYNE, EMILY A Primary Care Unavailable JOCELYNE, EMILY A Primary Care Unavailable JOCELYNE, EMILY A Primary Care Unavailable MASCI, JAREN A Referring Unavailable JOCELYNE, EMILY A Primary Care Unavailable MASCI, JAREN A Referring Unavailable JOCELYNE, EMILY A Primary Care Unavailable JOCELYNE, EMILY A Primary Care Unavailable MASCI, JAREN A Referring Unavailable JOCELYNE, EMILY A Primary Care Unavailable MASCI, JAREN A Referring Unavailable JOCELYNE, EMILY A Primary Care Unavailable JOCELYNE, EMILY A Primary Care Unavailable MASCI, JAREN A Referring Unavailable JOCELYNE, EMILY A Primary Care Unavailable JOCELYNE, EMILY A Primary Care Unavailable JOCELYNE, EMILY A Primary Care Unavailable MASCI, JAREN A Referring Unavailable JOCELYNE, EMILY A Primary Care Unavailable MASCI, JAREN A Referring Unavailable JOCELYNE, EMILY A Primary Care Unavailable JOCELYNE, EMILY A Primary Care Unavailable JOCELYNE, EMILY A Primary Care Unavailable BRANDY RAMIREZ Attending Unavailable JOCELYNE, EMILY A Primary Care Unavailable JOCELYNE, EMILY A Primary Care Unavailable JOCELYNE, EMILY A Primary Care Unavailable MASCI, JAREN A Referring Unavailable JOCELYNE, EMILY A Primary Care Unavailable JOCELYNE, EMILY A Primary Care Unavailable JOCELYNE, EMILY A Primary Care Unavailable JOCELYNE, EMILY A Primary Care Unavailable JOCELYNE, EMILY A Primary Care Unavailable MASCI, JAREN A Referring Unavailable JOCELYNE, EMILY A Primary Care Unavailable JOCELYNE, EMILY A Primary Care Unavailable MASCI, JAREN A Attending Unavailable JOCELYNE, EMILY A Primary Care Unavailable JOCELYNE, EMILY A Primary Care Unavailable MASCI, JAREN A Attending Unavailable JOCELYNE, EMILY A Primary Care Unavailable MASCI, JAREN A Referring Unavailable JOCELYNE, EMILY A Primary Care Unavailable Allergies Allergy Classification Reported Allergen(s) Allergy Type Date of Onset Reaction(s) Facility Macrolides (antibiotic) (1 source) Erythromycin Drug Allergy 8 Diarrhea, GI Upset [facility] Penicillins (antibiotic) (1 source) Penicillins Drug Allergy 8 Unknown [facility] (16 sources) Penicillins; Translations: [PENICILLINS] Allergy to substance 8 Unknown [facility] (20 sources) Erythromycin; Translations: [ERYTHROMYCIN] Drug Allergy 8 GI Upset, Diarrhea [facility] Work Phone: (20 sources) Penicillins Propensity to adverse reactions 8 Unknown [facility] Work Phone: (20 sources) Penicillins Drug Allergy 8 Unknown [facility] (1 source) Erythromycin Drug Allergy 5 [facility] (1 source) Penicillins Drug allergy (disorder) 5 [facility] Medications Current Medications Medication Drug [...] on above: Take 1 tablet by martha two times a day for 24 days. [...] tablet (20 sources) Proton Pump Inhibitor Start: End: take 1 tablet by mouth once daily pantoprazole DR (PROTONIX) 40 mg tablet Indications: Ovarian cancer, bilateral (HCC) TAKE 1 TABLET BY MOUTH EVERY DAY 90 tablet 1 11/02/2024 Active Comment on above: [facility] prochlorperazine 10 mg oral tablet (15 sources) Phenothiazine Start: take 1 tablet by mouth every six [...] Comment on above: Take 2 tablets by mo [facility] every 6 hours as needed for up to 14 days. Take 1-2 tablets by mouth every 6 hours as needed. vitamin b complex capsule (20 sources) take 1 capsule by mouth once daily vitamin b complex capsule Take 1 capsule by mouth once daily. Active take 1 capsule by mo [facility] once daily vitamin b complex capsule Take 1 capsule by mouth once daily. 0 Active End: 08-26-2023 take 1 capsule by mouth once daily vitamin b complex capsule Take 1 capsule by mouth once daily. 0 08/26/2023 Discontinued Comment on above: Take 1 capsule by [facility] once daily. Completed/Discontinued Medications Medication Drug [...] Comment on above: Take 2 tablets by [facility] every 6 hours. amLODIPine 2.5 mg [...] Start: 04-16-2024 take 2 tablets by mo [facility] once daily metroNIDAZOLE (FLAGYL) 500 mg [...] (Other) Start: 04-16-2024 take 2 tablets by [facility] once daily neomycin 500 mg tablet [...] Comment on above: TAKE 1 CAPSULE BY [facility] EVERY DAY PACLitaxel 200 mg in NaCl [...] 1 Drop (AK-DILATE, SAMEER-SYNEPHRINE) polyethylene glycol 3350 72672 mg powder for oral solution (20 sources) [...] as directed. Take 1 Packet by martha th once daily. Dissolve dose in 4 - [...] [NSTEMI (non-ST elevated myocardial infarction) (HCC)] Onset: Chronic Administrative/social admission (2 sources) Patient encounter [...] (20 sources) Drug therapy finding; Translations: [Other intermission coordinator (current) drug therapy] Onset: 06-08-2016 Episodic Other [...] Test Name Value Interpretation Reference Range Facility CBC W Auto Differential pane l (Bld)on 05-08-2025 Anisocytosis Ql (Bld) Present Normal [facility] Comment on above: Order Comment: Speci men Type: BLOOD SPECIMENOrdering Facility: [facility] Address: [address] [place] [address] Performed By: #### 5 7021-8 ####[facility] [id number] [address] LABORATORYCLIA [id number] [place] [address] [place] Basophils (Bld) [#/Vol] 0.03 10*3/uL Normal <0.11 [facility] Comment on above: Order Comment: Speci men Type: BLOOD SPECIMENOrdering Facility: [facility] Address: [address] [place] [address] Performed By: #### 5 7021-8 ####[facility] [id number] [address] LABORATORYCLIA [id number] [place] [address] [place] Basophils/100 WBC (Bld) 1.0 % Normal [facility] Comment on above: Order Comment: Speci men Type: BLOOD SPECIMENOrdering Facility: [facility] Address: [address] [place] [address] Performed By: #### 5 7021-8 ####[facility] MILLTOWNCLIA [id number] [address] LABORATORYCLIA [id number] [place] [address] [place] [facility] Differential cell count method Nom (Bld) Manual Normal [facility] Comment on above: Order Comment: Speci men Type: BLOOD SPECIMENOrdering Facility: [facility] Address: [address] [place] [address] Performed By: #### 5 7021-8 ####[facility] MILLWNCLIA [id number] [address] LABORATORYCLIA [id number] [place] [address] [place] Eosinophils (Bld) [#/Vol] 0.08 10*3/uL Normal <0.46 [facility] Comment on above: Order Comment: Speci men Type: BLOOD SPECIMENOrdering Facility: [facility] Address: [address] [place] [address] Performed By: #### 5 7021-8 ####[facility] MILLTOWNCLIA [id number] [address] LABORATORYCLIA [id number] [place] [address] [place] Eosinophils/100 WBC (Bld) 3.0 % Normal [facility] Comment on above: Order Comment: Speci men Type: BLOOD SPECIMENOrdering Facility: [facility] Address: [address] [place] [address] Performed By: #### 5 7021-8 ####[facility] MILLTOWNCLIA [id number] [address] LABORATORYIA [id number] [place] [address] [place] Erythrocyte distribution width (RBC) [Ratio] 16.6 % High 11.5-15.0 [facility] Comment on above: Order Comment: Speci men Type: BLOOD SPECIMENOrdering Facility: [facility] Address: [address] [place] [address] Performed By: #### 5 7021-8 ####[facility]ALL[facility] [id number] [address] [facility]ORYBARRE [facility] [id number] [place] [address] [place] Giant platelets LM Ql (Bld) Occasional Normal [facility] Comment on above: Order Comment: Speci men Type: BLOOD SPECIMENOrdering Facility: [facility] Address: [address] [place] [address] Performed By: #### 5 7021-8 ####[facility] [id number] [address] LABORATORYIA [id number] [place] [address] [place] Hematocrit (Bld) [Volume fraction] 22.7 % Low 36.0-46.0 [facility] Comment on above: Order Comment: Speci men Type: BLOOD SPECIMENOrdering Facility: [facility] Address: [address] [place] [address] Performed By: #### 5 7021-8 ####[facility] [id number] [address] LABORATORYIA [id number] [place] [address] [place] Hemoglobin (Bld) [Mass/Vol] 7.6 g/dL Low 11.5-15.5 [facility] Comment on above: Order Comment: Speci men Type: BLOOD SPECIMENOrdering Facility: [facility] Address: [address] [place] [address] Performed By: #### 5 7021-8 ####[facility] CENTERWNCLIA [id number] [address] LABORATORYCLIA [id number] [place] [address] [facility] [place] Lymphocytes (Bld) [#/Vol] 1.00 10*3/uL Normal 1.00-4.00 [facility] Comment on above: Order Comment: Speci men Type: BLOOD SPECIMENOrdering Facility: [facility] Address: [address] [place] [address] Performed By: #### 5 7021-8 ####[facility]ENTERA [id number] [address] LABORATORYCLIA [id number] [place] [address] [place] Lymphocytes/100 WBC (Bld) 37.0 % Normal [facility] Comment on above: Order Comment: Speci men Type: BLOOD SPECIMENOrdering Facility: [facility] Address: [address] [place] [address] Performed By: #### 5 7021-8 ####[facility]ALL[facility] [id number] [address] LABORATORYCLIA [id number] [place] [address] [place] MCH (RBC) [Entitic mass] 34.7 pg High 26.0-34.0 [facility] Comment on above: Order Comment: Speci men Type: BLOOD SPECIMENOrdering Facility: [facility] Address: [address] [place] [address] Performed By: #### 5 7021-8 ####[facility] MILLTOWNCLIA [id number] [address] LABORATORYCLIA [id number] [address] MCHC (RBC) [Mass/Vol] 33.5 g/dL Normal 30.5-36.0 [facility] Comment on above: Order Comment: Speci men Type: BLOOD SPECIMENOrdering Facility: [facility] Address: [address] [place] [address] Performed By: #### 5 7021-8 ####[facility]OSPITALBANGLIA [id number] [address] LABORATORYCLIA [id number] [address] MCV (RBC) [Entitic vol] 103.7 fL High 80.0-100.0 [facility] Comment on above: Order Comment: Speci men Type: BLOOD SPECIMENOrdering Facility: [facility] Address: [address] [place] [address] Performed By: #### 5 7021-8 ####[facility] CENTERWNCLIA [id number] [address] LABORATORYCLIA [id number] [place] [address] [place] [facility] Monocytes (Bld) [#/Vol] 0.16 10*3/uL Normal <0.87 [facility] Comment on above: Order Comment: Speci men Type: BLOOD SPECIMENOrdering Facility: [facility] Address: [address] [place] [address] Performed By: #### 5 7021-8 ####[facility] MILLTOWNCLIA [id number] [address] LABORATORYCLIA [id number] [place] [address] [place] Monocytes/100 WBC (Bld) 6.0 % Normal [facility] Comment on above: Order Comment: Speci men Type: BLOOD SPECIMENOrdering Facility: [facility] Address: [address] [place] [address] Performed By: #### 5 7021-8 ####[facility] CENTERWNCLIA [id number] [address] LABORATORYCLIA [id number] [place] [address] [place] Neutrophils (Bld) [#/Vol] 1.44 10*3/uL Low 1.45-7.50 [facility] Comment on above: Order Comment: Speci men Type: BLOOD SPECIMENOrdering Facility: [facility] Address: [address] [place] [address] Performed By: #### 5 7021-8 ####[facility]ALL[facility] [id number] [address] LABORATORYCLIA [id number] [address] OF [facility] Neutrophils/100 WBC (Bld) 53.0 % Normal [facility] Comment on above: Order Comment: Speci men Type: BLOOD SPECIMENOrdering Facility: [facility] Address: [address] [place] [address] Performed By: #### 5 7021-8 ####[facility] [id number] [address] LABORATORYCLIA [id number] [place] [address] [place] Nucleated RBC (Bld) [#/Vol] 10*3/uL Normal <0.01 [facility] Comment on above: Order Comment: Speci men Type: BLOOD SPECIMENOrdering Facility: [facility] Address: [address] [place] [address] Performed By: #### 5 7021-8 ####[facility] MILLKEATONWNCLIA [id number] [address] LABORATORYCLIA [id number] [address] [place] Nucleated RBC/100 WBC (Bld) [Ratio] 0.0 /100 WBC Normal [facility] Comment on above: Order Comment: Speci men Type: BLOOD SPECIMENOrdering Facility: [facility] Address: [address] [place] [address] Performed By: #### 5 7021-8 ####[facility] HOSPITALHAIA [id number] [address] LABORATORYCLIA [id number] [place] [address] [place] Ovalocytes LM Ql (Bld) Few Normal [facility] Comment on above: Order Comment: Speci men Type: BLOOD SPECIMENOrdering Facility: [facility] Address: [address] [place] [address] Performed By: #### 5 7021-8 ####[facility]OSPITALBANGLIA [id number] [address] LABORATORYCLIA [id number] [place] [address] [place] Platelet mean volume (Bld) [Entitic vol] 10.6 fL Normal 9.0-12.7 [facility] Comment on above: Order Comment: Speci men Type: BLOOD SPECIMENOrdering Facility: [facility] Address: [address] [place], [place] [address] Performed By: #### 5 7021-8 ####[facility] CENTERWNCLIA [id number] [address] LABORATORYCLIA [id number] [place] [address] [place] Platelets (Bld) [#/Vol] 128 10*3/uL Low 150-400 [facility] Comment on above: Order Comment: Speci men Type: BLOOD SPECIMENOrdering Facility: [facility] Address: [address] [place] [address] Performed By: #### 5 7021-8 ####[facility] MILLNEURODIAGNOSTIC INSTITUTELIA [id number] [address] LABORATORYCLIA [id number] [place] [address] [place] Platelets Estimate (Bld) [#/Vol] Decreased Normal [facility] Comment on above: Order Comment: Speci men Type: BLOOD SPECIMENOrdering Facility: [facility] Address: [address] [place] [address] Performed By: #### 5 7021-8 ####[facility] CENTERWNCLIA [id number] [address] LABORATORYCLIA [id number] [place] [address] [place] RBC (Bld) [#/Vol] 2.19 10*6/uL Low 3.90-5.20 [facility] Comment on above: Order Comment: Speci men Type: BLOOD SPECIMENOrdering Facility: [facility] Address: [address] [place] [address] Performed By: #### 5 7021-8 ####[facility] MILLWNCLIA [id number] [address] LABORATORYCLIA [id number] [place] [address] [place] RBC FRAGMENTS Few Abnormal None Seen [facility] Comment on above: Order Comment: Speci men Type: BLOOD SPECIMENOrdering Facility: [facility] Address: [address] [place], [place] [address] Performed By: #### 5 7021-8 ####[facility] DWAINENCNICOLETTEDarryl [id number] [address] LABORATORYCLIA [id number] [place] [address] [place] RED CELL MORPH Reviewed: see result s of individual morphologies Normal [facility] Comment on above: Order Comment: Speci men Type: BLOOD SPECIMENOrdering Facility: [facility] Address: [address] [place] [address] Performed By: #### 5 7021-8 ####[facility] HOSPITALNCLIDarryl [id number] [address] LABORATORYCLIA [id number] [place] [address] [place] WBC (Bld) [#/Vol] 2.71 10*3/uL Low 3.70-11.00 [facility] Comment on above: Order Comment: Speci men Type: BLOOD SPECIMENOrdering Facility: [facility] Address: [address] [place] [address] Performed By: #### 5 7021-8 ####[facility] [id number] [address] LABORATORYCLIA [id number] [place] [address] [place] CNPNon 05-08-2025 CNPN Normal [facility] CNPNon 05-06-2025 CNPN Normal [facility] Basic metabolic 2000 panelon 05-05-2025 Anion gap [Moles/Vol] 9 mmol/L Normal 8-15 [facility] Comment on above: Order Comment: Speci men Type: BLOOD SPECIMEN [facility] Address: [address] [place] [address] Performed By: #### 5 8410-2 #### [facility] CLIA [id number] [address] [place] Calcium [Mass/Vol] 8.3 mg/dL Low 8.5-10.2 [facility] Comment on above: Order Comment: Speci men Type: BLOOD SPECIMEN [facility] Address: [address] [place] [address] Performed By: #### 5 8410-2 #### [facility] CLIA [id number] [address] [place] Chloride [Moles/Vol] 102 mmol/L Normal 98-107 [facility] Comment on above: Order Comment: Speci men Type: BLOOD SPECIMEN [facility]ing [facility] Address: [address] [place] [address] Performed By: #### 5 8410-2 #### [facility] CLIA [id number] [address] STATES OF [facility] CO2 [Moles/Vol] 29 mmol/L Normal 22-30 [facility] Comment on above: Order Comment: Speci men Type: BLOOD SPECIMEN [facility]ing Facility[facility] Address: [address] [place] [address] Performed By: #### 5 8410-2 #### [facility] CLIA [id number] [address] [place] Creatinine [Mass/Vol] 1.34 mg/dL High 0.58-0.96 [facility] Comment on above: Order Comment: Speci men Type: BLOOD SPECIMEN [facility] Address: [address] [place] [address] Performed By: #### 5 8410-2 #### [facility] CLIA [id number] [address] [place] eGFRcr SerPlBld CKD-EPI 2020 42 mL/min/1.73m??? Low >=60 [facility] Comment on above: Order Comment: Speci men Type: BLOOD SPECIMEN [facility]ing [facility] Address: [address] [place] [address] Result Comment: Fernanda mated Glomerular Filtration Rate [...] GFR. Performed By: #### 5 8410-2 #### [facility] CLIA [id number] [address] [place] [address] [place] Glucose [Mass/Vol] 90 mg/dL Normal 74-99 [facility] Comment on above: Order Comment: Riaz hernández Type: BLOOD SPECIMEN [facility]ing [facility] Address: [address] [place] [address] Result Comment: The [place] [employer] (ADA) provides guidance for cutoff [...] Standards of Medical Care in Diabetes 2016, [place] [employer]. Diabetes Care. 2016.39(Suppl 1). Performed By: #### 5 8410-2 #### [facility] CLIA [id number] [address] [place] [address] [place] Potassium [Moles/Vol] 3.7 mmol/L Normal 3.7-5.1 [facility] Comment on above: Order Comment: Riaz hernández Type: BLOOD SPECIMEN Ordering Facility: [facility] Address: [address] [place] [id number] Performed By: #### 5 8410-2 #### [facility] CLIA [id number] [address] [place] [address] [place] Sodium [Moles/Vol] 140 mmol/L Normal 136-144 [facility] Comment on above: Order Comment: Speci men Type: BLOOD SPECIMEN [facility]ing [facility] Address: [address] [place] [address] Performed By: #### 5 8410-2 #### [facility] CLIA [id number] [address] STATES OF [facility] Urea nitrogen [Mass/Vol] 39 mg/dL High 7-21 [facility] Comment on above: Order Comment: Speci men Type: BLOOD SPECIMEN [facility] Address: [address] [place] [address] Performed By: #### 5 8410-2 #### [facility] CLIA [id number] [address] [place] CBC panel Auto (Bld)on 05-05 Erythrocyte distribution width (RBC) [Ratio] 16.5 % High 11.5-15.0 [facility] Comment on above: Order Comment: Speci men Type: BLOOD SPECIMEN [facility]ing [facility] Address: [address] [place] [address] Performed By: #### 5 8410-2 #### [facility] CLIA [id number] [address] [place] Hematocrit (Bld) [Volume fraction] 22.8 % Low 36.0-46.0 [facility] Comment on above: Order Comment: Speci men Type: BLOOD SPECIMEN Ordering Facility: [facility] Address: [address] [place] [address] Performed By: #### 5 8410-2 #### [facility] CLIA [id number] [address] [place] Hemoglobin (Bld) [Mass/Vol] 7.4 g/dL Low 11.5-15.5 [facility] Comment on above: Order Comment: Speci men Type: BLOOD SPECIMEN Ordering Facility: [facility] Address: [address] [place] [address] Performed By: #### 5 8410-2 #### [facility] CLIA [id number] [address] MCH (RBC) [Entitic mass] 34.4 pg High 26.0-34.0 [facility] Comment on above: Order Comment: Speci men Type: BLOOD SPECIMEN Ordering Facility: [facility] Address: [address] [place] [address] Performed By: #### 5 8410-2 #### [facility] CLIA [id number] [address] MCHC (RBC) [Mass/Vol] 32.5 g/dL Normal 30.5-36.0 [facility] Comment on above: Order Comment: Speci men Type: BLOOD SPECIMEN Ordering Facility: [facility] Address: [address] [place] [address] Performed By: #### 5 8410-2 #### [facility] CLIA [id number] [address] MCV (RBC) [Entitic vol] 106.0 fL High 80.0-100.0 [facility] Comment on above: Order Comment: Speci men Type: BLOOD SPECIMEN Ordering Facility: [facility] Address: [address] [place] [address] Performed By: #### 5 8410-2 #### [facility] CLIA [id number] [address] Nucleated RBC (Bld) [#/Vol] 10*3/uL Normal <0.01 [facility] Comment on above: Order Comment: Speci men Type: BLOOD SPECIMEN Ordering Facility: [facility] Address: [address] [place] [address] Performed By: #### 5 8410-2 #### [facility] CLIA [id number] [address] Platelet mean volume (Bld) [Entitic vol] 11.6 fL Normal 9.0-12.7 [facility] Comment on above: Order Comment: Speci men Type: BLOOD SPECIMEN Ordering Facility: [facility] Address: [address] [place] [address] Performed By: #### 5 8410-2 #### [facility] CLIA [id number] [address] Platelets (Bld) [#/Vol] 171 10*3/uL Normal 150-400 [facility] Comment on above: Order Comment: Speci men Type: BLOOD SPECIMEN Ordering Facility: [facility] Address: [address] [place] [address] Performed By: #### 5 8410-2 #### [facility] CLIA [id number] [address] RBC (Bld) [#/Vol] 2.15 10*6/uL Low 3.90-5.20 [facility] Comment on above: Order Comment: Speci men Type: BLOOD SPECIMEN Ordering Facility: [facility] Address: [address] [place] [address] Performed By: #### 5 8410-2 #### [facility] CLIA [id number] [address] WBC (Bld) [#/Vol] 2.64 10*3/uL Low 3.70-11.00 [facility] Comment on above: Order Comment: Speci men Type: BLOOD SPECIMEN Ordering Facility: [facility] Address: [address] [place] [address] Performed By: #### 5 8410-2 #### [facility] CLIA [id number] [address] CNDSon 05-05-2025 CNDS HNO ID: [id number] Author: APRIL YI MD Service: Hospital Medicine Author Type: Physician Type: Discharge Summary Filed: 05/05/2025 14:47 Note Text: DISCHARGE SUMMARY PATIENT NAME: Amirah Reed ADMISSION DATE: 05/04/2025 DISCHARGE DATE: 05/05/2025 [...] Yi MD Primary Service: GRACIELA CLARK Consulting: Giovanny Holland MD REASON FOR HOSPITALIZATION: AHRF, CAP, [...] These medications were sent to e- [id number] [place] [address] - [address] [facility] [phone] [facility] [id number] cefdinir 300 mg capsule doxycycline hyclate 100 mg capsule FUTURE APPOINTMENTS: Follow Up with PCP: Emily Casanova, The patient's risk for 30-day readmission is [...] Provider, RN, Patient I have performed the coat-gr-nuey and relevant services for a total of >30 minutes. SIGNATURE: April Yi MD DATE: May 05, 2025 TIME: 2:45 PM Normal [facility] ECHOon 05-05-2025 Echocardiography Echocardiography Rep ort: Transthoracic Echo [facility] Date of service: 05/05/2025 7:28:46 AM HOSPITAL Ordering physician: APRIL YI Exam indication: Shortness of Breath Technologist: Evgeny Welsh [facility] Interpreting physician: Benja Moore MD PATIENT: Name: MRS. AMIRAH REED : 1950 Age: 74 years Gender: [...] * * Final * * * CC [employer] [facility] : [id number] Normal [facility] Magnesium SerPl-mCncon 05-05 Magnesium [Mass/Vol] 1.5 mg/dL Low 1.7-2.3 [facility] Comment on above: Order Comment: Speci men Type: BLOOD SPECIMEN Ordering Facility: [facility] Address: [address] [place] [address] Performed By: #### 5 8410-2 #### [facility] CLIA [id number] [address] [place] [id number] [place] ALLIED HEALTHon 05-04-2025 ALLIED HEALTH HNO ID: [id number] Author: MARJORIE GALAVIZ CT Service: Radiology Author Type: Technologist Type: Allied Health Filed: 05/04/2025 05:40 Note Text: Radiology Service Progress Note PATIENT NAME: Amirah Reed DATE OF SERVICE: May 04, 2025 [...] PATIENT PRESENTS WITH AN IMPLANTABLE OR ATTACHED HAMMERER HELPER: No RADIOLOGY DEPARTMENT: CT; Exam(s) Completed: Chest. Anesthesia: No PERIPHERAL IV DATA: Inpatient: see LDA documentation SIGNED BY: CLAUDIA Jalloh May 04, 2025 5:40 AM [facility] CBC W Auto Differential pane l (Bld)on 05-04-2025 Basophils (Bld) [#/Vol] 10*3/uL Normal <0.11 [facility] Comment on above: Order Comment: Speci men Type: BLOOD SPECIMENOrdering Facility: [facility] Address: [address] [place] [address] Performed By: #### 5 7021-8 ####[facility] [id number] [place] [address] [place] Basophils/100 WBC (Bld) 0.3 % Normal [facility] Comment on above: Order Comment: Speci men Type: BLOOD SPECIMENOrdering Facility: [facility] Address: [address] [place] [address] Performed By: #### 5 7021-8 ####[facility]ORY[facility]IA [id number] [place] [address] [place] Differential cell count method Nom (Bld) Auto Normal [facility] Comment on above: Order Comment: Speci men Type: BLOOD SPECIMENOrdering Facility: [facility] Address: [address] [place] [address] Performed By: #### 5 7021-8 ####[facility]ORYCLIA [id number] [place] [address] [place] Eosinophils (Bld) [#/Vol] 10*3/uL Normal <0.46 [facility] Comment on above: Order Comment: Speci men Type: BLOOD SPECIMENOrdering Facility: [facility] Address: [address] [place] [address] Performed By: #### 5 7021-8 ####[facility]ORYCLIA [id number] [address] [place] Eosinophils/100 WBC (Bld) 0.5 % Normal [facility] Comment on above: Order Comment: Speci men Type: BLOOD SPECIMENOrdering Facility: [facility] Address: [address] [place] [address] Performed By: #### 5 7021-8 ####[facility]ORYCLIA [id number] [address] [place] Erythrocyte distribution width (RBC) [Ratio] 16.8 % High 11.5-15.0 [facility] Comment on above: Order Comment: Speci men Type: BLOOD SPECIMENOrdering Facility: [facility] Address: [address] [place] [address] Performed By: #### 5 7021-8 ####[facility]ORYCLIA [id number] [address] [place] Hematocrit (Bld) [Volume fraction] 24.5 % Low 36.0-46.0 [facility] Comment on above: Order Comment: Speci men Type: BLOOD SPECIMENOrdering Facility: [facility] Address: [address] [place] [address] Performed By: #### 5 7021-8 ####[facility]ORYCLIA [id number] [place] [address] [place] Hemoglobin (Bld) [Mass/Vol] 7.9 g/dL Low 11.5-15.5 [facility] Comment on above: Order Comment: Speci men Type: BLOOD SPECIMENOrdering Facility: [facility] Address: [address] [place] [address] Performed By: #### 5 7021-8 ####[facility]ATORYCLIA [id number] [place] [address] [facility] [place] Immature granulocytes (Bld) [#/Vol] 10*3/uL Normal <0.10 [facility] Comment on above: Order Comment: Speci men Type: BLOOD SPECIMENOrdering Facility: [facility] Address: [address] [place] [address] Performed By: #### 5 7021-8 ####[facility]ATORYCLIA [id number] [address] Immature granulocytes/100 WBC (Bld) 0.5 % Normal [facility] Comment on above: Order Comment: Speci men Type: BLOOD SPECIMENOrdering Facility: [facility] Address: [address] [place] [address] Performed By: #### 5 7021-8 ####[facility]ORYCLIA [id number] [address] Lymphocytes (Bld) [#/Vol] 0.23 10*3/uL Low 1.00-4.00 [facility] Comment on above: Order Comment: Speci men Type: BLOOD SPECIMENOrdering Facility: [facility] Address: [address] [place] [address] Performed By: #### 5 7021-8 ####[facility]ATORYCLIA [id number] [address] Lymphocytes/100 WBC (Bld) 6.3 % Normal [facility] Comment on above: Order Comment: Speci men Type: BLOOD SPECIMENOrdering Facility: [facility] Address: [address] [place] [address] Performed By: #### 5 7021-8 ####[facility]ATORYCLIA [id number] [address] MCH (RBC) [Entitic mass] 34.5 pg High 26.0-34.0 [facility] Comment on above: Order Comment: Speci men Type: BLOOD SPECIMENOrdering Facility: [facility] Address: [address] [place] [address] Performed By: #### 5 7021-8 ####[facility]ORYCLIA [id number] [address] MCHC (RBC) [Mass/Vol] 32.2 g/dL Normal 30.5-36.0 [facility] Comment on above: Order Comment: Speci men Type: BLOOD SPECIMENOrdering Facility: [facility] Address: [address] [place] [address] Performed By: #### 5 7021-8 ####[facility]ORYCLIA [id number] [address] MCV (RBC) [Entitic vol] 107.0 fL High 80.0-100.0 [facility] Comment on above: Order Comment: Speci men Type: BLOOD SPECIMENOrdering Facility: [facility] Address: [address] [place] [address] Performed By: #### 5 7021-8 ####[facility]ORYCLIA [id number] [address] [place] Monocytes (Bld) [#/Vol] 0.03 10*3/uL Normal <0.87 [facility] Comment on above: Order Comment: Speci men Type: BLOOD SPECIMENOrdering Facility: [facility] Address: [address] [place] [address] Performed By: #### 5 7021-8 ####[facility]ORYCLIA [id number] [address] Monocytes/100 WBC (Bld) 0.8 % Normal [facility] Comment on above: Order Comment: Speci men Type: BLOOD SPECIMENOrdering Facility: [facility] Address: [address] [place] [address] Performed By: #### 5 7021-8 ####[facility]ORYCLIA [id number] [address] [place] Neutrophils (Bld) [#/Vol] 3.37 10*3/uL Normal 1.45-7.50 [facility] Comment on above: Order Comment: Speci men Type: BLOOD SPECIMENOrdering Facility: [facility] Address: [address] [place] [address] Performed By: #### 5 7021-8 ####[facility]ORYCLIA [id number] [address] [place] Neutrophils/100 WBC (Bld) 91.6 % Normal [facility] Comment on above: Order Comment: Speci men Type: BLOOD SPECIMENOrdering Facility: [facility] Address: [address] [place] [address] Performed By: #### 5 7021-8 ####[facility]ORATORYCLIA [id number] [place] [address] [place] Nucleated RBC (Bld) [#/Vol] 10*3/uL Normal <0.01 [facility] Comment on above: Order Comment: Speci men Type: BLOOD SPECIMENOrdering Facility: [facility] Address: [address] [place] [address] Performed By: #### 5 7021-8 ####[facility]ORYCLIA [id number] [address] [place] Nucleated RBC/100 WBC (Bld) [Ratio] 0.0 /100 WBC Normal [facility] Comment on above: Order Comment: Speci men Type: BLOOD SPECIMENOrdering Facility: [facility] Address: [address] [place] [address] Performed By: #### 5 7021-8 ####[facility]ATORYCLIA [id number] [place] [address] [place] Platelet mean volume (Bld) [Entitic vol] 10.6 fL Normal 9.0-12.7 [facility] Comment on above: Order Comment: Speci men Type: BLOOD SPECIMENOrdering Facility: [facility] Address: [address] [place] [address] Performed By: #### 5 7021-8 ####[facility]ATORYCLIA [id number] [place] [address] [place] Platelets (Bld) [#/Vol] 169 10*3/uL Normal 150-400 [facility] Comment on above: Order Comment: Speci men Type: BLOOD SPECIMENOrdering Facility: [facility] Address: [address] [place] [address] Performed By: #### 5 7021-8 ####[facility]ATORYCLIA [id number] [place] [address] [place] RBC (Bld) [#/Vol] 2.29 10*6/uL Low 3.90-5.20 [facility] Comment on above: Order Comment: Speci men Type: BLOOD SPECIMENOrdering Facility: [facility] Address: [address] [place] [address] Performed By: #### 5 7021-8 ####[facility]ATORYCLIA [id number] [place] [address] [place] WBC (Bld) [#/Vol] 3.68 10*3/uL Low 3.70-11.00 [facility] Comment on above: Order Comment: Speci men Type: BLOOD SPECIMENOrdering Facility: [facility] Address: [address] [place] [address] Performed By: #### 5 7021-8 ####[facility]CL[facility] [id number] [address] [place] CRP SerPl-ncon 05-04-2025 CRP [Mass/Vol] 2.2 mg/dL High <0.9 [facility] Comment on above: Order Comment: Speci men Type: BLOOD SPECIMENOrdering Facility: [facility] Address: [address] [place] [address] Performed By: #### 1 988-5, SKE4915 ####[facility]ORYCLIA [id number] [address] OF [facility] CTA CHEST (NON GATED) W IVCO N PEon 05-04-2025 CTA CHEST (NON GATED) W IVCON PE * * *Final Report* * * DATE OF EXAM: May 04 2025 5:56AM [facility] 0564 - CTA CHEST (NON GATED) W [...] pleural effusions; superimposed infection cannot be excluded. Greens Keeper: PAO Transcribe Date/Time: May 04 2025 6:56A Dictated by : MARY PEACE DO This examination was interpreted and the report reviewed and electronically signed by: MARY PEACE DO on May 04 2025 7:04AM EST [id number] Normal [facility] Comprehensive metabolic 2000 panelon 05-04-2025 Albumin [Mass/Vol] 3.7 g/dL Low 3.9-4.9 [facility] Comment on above: Order Comment: Speci men Type: BLOOD SPECIMENOrdering Facility: [facility] Address: [address] [place] [address] Performed By: #### L [id number], 58587-9, 95895-7 ####[facility]ATORYCLIA [id number] [place] [address] [place] [facility] ALP [Catalytic activity/Vol] 214 U/L High 34-123 [facility] Comment on above: Order Comment: Speci men Type: BLOOD SPECIMENOrdering Facility: [facility] Address: [address] [place] [address] Performed By: #### L [id number], 34240-5, 84657-0 ####[facility]ORYCLIA [id number] [address] ALT [Catalytic activity/Vol] 96 U/L High 7-38 [facility] Comment on above: Order Comment: Speci men Type: BLOOD SPECIMENOrdering Facility: [facility] Address: [address] [place] [address] Performed By: #### L [id number], 12152-3, 63899-9 ####[facility]ORYCLIA [id number] [address] Anion gap [Moles/Vol] 12 mmol/L Normal 8-15 [facility] Comment on above: Order Comment: Speci men Type: BLOOD SPECIMENOrdering Facility: [facility] Address: [address] [place] [address] Performed By: #### L PR3608, 37400-6, 25882-3 ####[facility]ATORYCLIA [id number] [address] STATES [facility] AST [Catalytic activity/Vol] 84 U/L High 13-35 [facility] Comment on above: Order Comment: Speci men Type: BLOOD SPECIMENOrdering Facility: [facility] Address: [address] [place] [address] Performed By: #### L [id number], 54038-7, 15334-3 ####[facility]ATORYCLIA [id number] [place] [address] [place] Bilirubin [Mass/Vol] 1.2 mg/dL Normal 0.2-1.3 [facility] Comment on above: Order Comment: Speci men Type: BLOOD SPECIMENOrdering Facility: [facility] Address: [address] [place] [address] Performed By: #### L OF6887, 59157-5, 72474-4 ####[facility]ORATORYCLIA [id number] [place] [address] [place] Calcium [Mass/Vol] 8.6 mg/dL Normal 8.5-10.2 [facility] Comment on above: Order Comment: Speci men Type: BLOOD SPECIMENOrdering Facility: [facility] Address: [address] [place] [address] Performed By: #### L [id number], 88118-6, 76198-8 ####[facility]ORATORYCLIA [id number] [place] [address] [place] Chloride [Moles/Vol] 104 mmol/L Normal 98-107 [facility] Comment on above: Order Comment: Speci men Type: BLOOD SPECIMENOrdering Facility: [facility] Address: [address] [place] [address] Performed By: #### L [id number], 24899-9, 27624-5 ####[facility]ORATORYCLIA [id number] [place] [address] [place] CO2 [Moles/Vol] 21 mmol/L Low 22-30 [facility] Comment on above: Order Comment: Speci men Type: BLOOD SPECIMENOrdering Facility: [facility] Address: [address] [place] [address] Performed By: #### L [id number], 57949-7, 56666-7 ####[facility]ORATORYCLIA [id number] [place] [address] [place] Creatinine [Mass/Vol] 1.11 mg/dL High 0.58-0.96 [facility] Comment on above: Order Comment: Kurtmayra hernández Type: BLOOD SPECIMENOrdering Facility: [facility] Address: [address] [place] [address] Performed By: #### L [id number], 98800-4, 42437-5 ####[facility]ATORYCLIA [id number] [place] [address] [place] eGFRcr SerPlBld CKD-EPI 2020 52 mL/min/1.73m??? Low >=60 [facility] Comment on above: Order Comment: Kurtmayra hernández Type: BLOOD SPECIMENOrdering Facility: [facility] Address: [address] [place] [address] Result Comment: Fernanda mated Glomerular Filtration Rate [...] reflect actual GFR. Performed By: #### L [id number], 24733-4, 74713-0 ####[facility]ORATORYCLIA [id number] [place] [address] [place] Glucose [Mass/Vol] 111 mg/dL High 74-99 [facility] Comment on above: Order Comment: Riaz hernández Type: BLOOD SPECIMENOrdering Facility: [facility] Address: [address] [place] [address] Result Comment: The [place] [employer] (ADA) provides guidance for cutoff [...] Standards of Medical Care in Diabetes 2016, [place] [employer]. Diabetes Care. 2016.39(Suppl 1). Performed By: #### L [id number], 64915-4, 10918-2 ####[facility] LABORATORYCLIA [id number] [place] [address] [place] Potassium [Moles/Vol] 4.1 mmol/L Normal 3.7-5.1 [facility] Comment on above: Order Comment: Speci men Type: BLOOD SPECIMENOrdering Facility: [facility] Address: [address] [place] [address] Performed By: #### L [id number], 58605-3, 33343-9 ####[facility]ORATORYCLIA [id number] [place] [address] [place] Protein [Mass/Vol] 5.9 g/dL Low 6.3-8.0 [facility] Comment on above: Order Comment: Speci men Type: BLOOD SPECIMENOrdering Facility: [facility] Address: [address] [place] [address] Performed By: #### L [id number], 80139-1, 98795-4 ####[facility]ORATORYCLIA [id number] [address] [place] Sodium [Moles/Vol] 137 mmol/L Normal 136-144 [facility] Comment on above: Order Comment: Speci men Type: BLOOD SPECIMENOrdering Facility: [facility] Address: [address] [place] [address] Performed By: #### L NK2005, 49861-2, 20785-2 ####[facility]ORATORYCLIA [id number] [place] [address] [place] Urea nitrogen [Mass/Vol] 33 mg/dL High 7-21 [facility] Comment on above: Order Comment: Speci men Type: BLOOD SPECIMENOrdering Facility: [facility] Address: [address] [place] [address] Performed By: #### L FY5156, 70333-8, 53053-9 ####[facility] LABORATORYCLIA [id number] [place] [address] [place] ED NOTEon 05-04-2025 ED NOTE HNO ID: [id number] Author: PING PEREIRA, RN Service: Nursing Author Type: Registered Nurse Type: ED Notes Filed: 05/04/2025 13:48 Note Text: Report given to MMT at bedside at this time. Patient stable with no chest pain and heparin infusion continued on transfer. Called and updated RN Rafal at [facility] on infusion rate change with PTTAC. Next PTTAC due to be drawn at 1945. Belongings sent with patients family at bedside on transfer. [facility] ED NOTE HNO ID: [id number] Author: SENG CAR RN Service: Behavioral Health Author Type: Registered Nurse Type: ED Notes Filed: 05/04/2025 12:16 Note Text: Gave report to rafal reyez at [facility]. Called [phone]. Dr. Hayes accepted for NSTEMI. Eta w mmt is [phone]. Next ptt due 1320 [facility] ED NOTE HNO ID: [id number] Author: SENG CAR RN Service: Behavioral Health Author Type: Registered Nurse Type: ED Notes Filed: 05/04/2025 09:53 Note Text: EKG repeated. [facility] ED NOTE HNO ID: [id number] Author: SENG CAR RN Service: Behavioral Health Author Type: Registered Nurse Type: ED Notes Filed: 05/04/2025 08:01 Note Text: Karyna tobin going to get 2nd iv since will be on heparin gtt. [facility] ED NOTE HNO ID: [id number] Author: SENG CAR RN Service: Behavioral Health Author Type: Registered Nurse Type: ED Notes Filed: 05/04/2025 08:03 Note Text: Dr schrader at bs. Dtr remains at bs. Pt taken in a bedside commode and up to rr -did well, sob but in nad. Remained on the 3lnc, md turned down to 2lcn [facility] ED NOTE HNO ID: [id number] Author: SENG CAR RN Service: Behavioral Health Author Type: Registered Nurse Type: ED Notes Filed: 05/04/2025 08:03 Note Text: Assumed care of pt w report from natalie. Reyez. Pt in rr at this time. Dtr at bs. [facility] ED NOTE HNO ID: [id number] Author: NUBIA WALTERS, MARIA C Service: Nursing Author Type: Registered Nurse Type: ED Notes Filed: 05/04/2025 07:11 Note Text: Report given to MARIA C Leonardo [facility] ED NOTE HNO ID: [id number] Author: MINDY PENA RN Service: ? Author Type: Registered Nurse Type: ED Notes Filed: 05/04/2025 04:18 Note Text: Pt arrives to ED from home with c/o Shortness of Breath and chest pressure for the past few days worsening tonight. Pt states she started having a cough tonight. [facility] ED PROGRESS NOTE (PROVIDER)o n 05-04-2025 ED PROGRESS NOTE (PROVIDER) HNO ID: [id number] Author: BART SCHRADER DO Service: Emergency Medicine [...] in troponins patient will be transferred to [facility]. At this time she is on 2 L per nasal cannula resting comfortably. No acute distress at the moment. Denies chest pain. Patient accepted to [facility] For further management Clinical Impressions as of 05/04/25 0736 NSTEMI (non-ST elevated myocardial infarction) (HCC) Chest pain, unspecified type Acute respiratory failure with hypoxia (HCC) Results for orders placed or performed during the hospital encounter of 05/04/25 EKG Impression SINUS TACHYCARDIA Reconfirmed by PIGN AYALA MD ([id number]) on 05/04/2025 6:15:04 AM SIGNATURE: Bart Schrader DO PATIENT NAME: Amirah Reed DATE: May 04, 2025 TIME: 7:36 AM PAGER/CONTACT #: [facility] ED PROV NOTEon 05-04-2025 ED PROV NOTE HNO ID: [id number] Author: PING AYALA MD Service: Emergency Medicine Author Type: Physician Type: ED Provider Notes Filed: 05/04/2025 07:09 Note Text: ED Provider Note Patient Name: Amirah Reed : 1950 SERVICE DATE: 05/04/25 History [...] Mother Cancer Mother Coronary Artery Disease Father NM age 40's, age 60's; also smoked and alcoholic Mental illness Sister Renal Disease Sister Cancer Sister other (rheumatoid arthritis) Sister Coronary Artery Disease Brother [place] age 49, smoker, recovering alcoholic Breast Cancer [...] Temp Temp src Resp SpO2 Weight Height 05/04/258 05/04/258 05/04/25 0421 05/04/25 0421 05/04/25 0421 05/04/25 0418 05/04/25 0421 05/04/25420 196/91 (!) 129 37.4 ?C (99.3 ?F) [...] Capillary Refill: Cap (more content not included)... [facility] EKGo 05-04-2025 Electrocardiogram Ventricular Rate : 7 3 BPM Atrial Rate : 73 BPM P-R Interval : 144 ms QRS Duration : 74 ms Q-T Interval : 402 ms QTC Calculation(Bazett) : 442 ms Calculated P [place] : 39 degrees Calculated R [place] : 18 degrees Calculated T [place] : 28 degrees NORMAL SINUS RHYTHM NORMAL ECG Confirmed by BART SCHRADER DO ([id number]) on 05/04/2025 9:41:18 AM NAME : AMIRAH REED PID : [id number] : 1950 Gender : Female Race : ORD : Procedure Date : May 04 2025 09:37:17 Edit Date : May 04 2025 09:41:19 Diagnosis: NORMAL SINUS RHYTHM NORMAL ECG Confirmed by BART SCHRADER DO ([id number]) on 05/04/2025 9:41:18 AM Test Reason : nstemi Location : 1 : ER 6 Overread By : BART SCHRADER DO Edited By : BART SCHRADER DO Referred By : , Acquired by : Rocky leonardo [facility] Electrocardiogram Ventricular Rate : 1 10 BPM Atrial Rate : 110 BPM P-R Interval : 138 ms QRS Duration : 66 ms Q-T Interval : 312 ms QTC Calculation(Bazett) : 422 ms Calculated P [place] : 77 degrees Calculated R [place] : 53 degrees Calculated T [place] : 57 degrees SINUS TACHYCARDIA Reconfirmed by PING AYALA MD ([id number]) on 05/04/2025 6:15:04 AM NAME : AMIRAH REED PID : [id number] : 1950 Gender : Female Race : ORD : Procedure Date : May 04 2025 04:22:38 Edit Date : May 04 2025 06:15:08 Diagnosis: SINUS TACHYCARDIA Reconfirmed by PING AYALA MD ([id number]) on 05/04/2025 6:15:04 AM Test Reason : Location : 1 : ER ED Overread By : PING AYALA MD Edited By : PING AYALA MD Referred By : , Acquired by : fariba rn, Normal [facility] HIGH SENSITIVITY TROPONIN To n 05-04-2025 Troponin T.cardiac High sensitivity method [Mass/Vol] 848 ng/L High <12 [facility] Comment on above: Order Comment: Riaz hernández Type: BLOOD SPECIMEN Ordering Facility: [facility] Address: [address] [place] [address] Performed By: #### 5 8410-2 #### [facility] CLIA [id number] [address] [place] HIGH SENSITIVITY TROPONIN T (INITIAL)on 05-04-2025 Troponin T.cardiac High sensitivity method [Mass/Vol] 663 ng/L High <12 [facility] Comment on above: Order Comment: Riaz hernández Type: BLOOD SPECIMENOrdering Facility: [facility] Address: [address] [place] [address] Performed By: #### L [id number], 51651-9, 16077-2 ####[facility]ATORYCLIA [id number] [address] [place] HIGH SENSITIVITY TROPONIN T (SECOND)on 05-04-2025 Troponin T.cardiac High sensitivity method [Mass/Vol] 821 ng/L High <12 [facility] Comment on above: Order Comment: Riaz hernández Type: BLOOD SPECIMENOrdering Facility: [facility] Address: [address] [place] [address] Performed By: #### 1 988-5, [id number] ####[facility]ORATORYCLIA [id number] [place] [id number] [place] HIGH SENSITIVITY TROPONIN T (THIRD) 3 HRS AFTER INITIALon 05-04-2025 Troponin T.cardiac High sensitivity method [Mass/Vol] 1134 ng/L High <12 [facility] Comment on above: Order Comment: Speci men Type: BLOOD SPECIMENOrdering Facility: [facility] Address: [address] [place] [address] Performed By: #### L [id number] ####[facility]ORATORYCLIA [id number] [place] [address] [facility] [place] HISTORY PHYSICALon 5 HISTORY PHYSICAL HNO ID: [id number] Author: APRIL YI MD Service: Hospital Medicine Author Type: Physician Type: H&P Filed: 05/04/2025 15:51 Note Text: DEPARTMENT OF HOSPITAL MEDICINE HISTORY AND PHYSICAL EXAM SERVICE DATE: 05/04/2025 SERVICE TIME: 3:33 PM Primary Care Physician: Emily Casanova, NIGHT AND WEEKEND COVERAGE: MARTIN COVERAGE: After 7pm, please call cross cover pager #[phone] Subjective CHIEF COMPLAINT: shortness of breath, cough, fever HPI: 74F hx HTN, ovarian cancer (on chemo), CKD (Cr 1.2), macrocytic anemia p/w fever, cough, and AHRF, found to have troponinemia and BNP elevation w/o EKG changes c/f new CHF w/ demand ischemia. Transferred from [facility]. Had few days of these symptoms. [...] Mother Cancer Mother Coronary Artery Disease Father NM age 40's, age 60's; also smoked and alcoholic Mental illness Sister Renal Disease Sister Cancer Sister other (rheumatoid arthritis) Sister Coronary Artery Disease Brother [place] age 49, smoker, recovering alcoholic Breast Cancer [...] masses or (more content not included)... Normal [facility] NT-proBNP [facility] 05-04 Natriuretic peptide.B prohormone N-Terminal [Mass/Vol] 5774 pg/mL High <125 [facility] Comment on above: Order Comment: Riaz hernández Type: BLOOD SPECIMENOrdering Facility: [facility] Address: [address] [place] [address] Performed By: #### L [id number], 11330-2, 78271-8 ####[facility]ORATORYCLIA [id number] [place] [address] [place] PT panel Coag (PPP)on 2024 INR Coag (PPP) [Relative time] 1.0 {INR} Normal 0.9-1.3 [facility] Comment on above: Order Comment: Riaz hernández Type: BLOOD SPECIMENOrdering Facility: [facility] Address: [address] [place], [place] [address] Result Comment: Estrella min K Antagonist (VKA) Therapeutic Range: INR 2 to 3 (Target INR of 2.5) Note: For patients treated with VKA drugs, such as warfarin, the [place] [employer] 2012 Guideline recommends [...] GH, et al. Chest 2012, 141:7S-47S Maame RA, et al. [facility] 2017, 70: 252-289 Performed By: #### 3 4528-0, PTTAC ####[facility]ORATORYCLIA [id number] [place] [address] [place] PT Coag (PPP) [Time] 11.1 s Normal 9.7-13.0 [facility] Comment on above: Order Comment: Speci men Type: BLOOD SPECIMENOrdering Facility: [facility] Address: [address] [id number] Performed By: #### 3 4528-0, PTTAC ####[facility]ORATORYCLIA [id number] [place] [address] [place] PTT, ANTICOAGULANT THERAPYon 05-04-2025 aPTT Coag (PPP) [Time] 26.3 s Normal 23.0-32.4 [facility] Comment on above: Order Comment: Speci men Type: BLOOD SPECIMENOrdering Facility: [facility] Address: [address] [place] [address] Performed By: #### 3 4528-0, PTTAC ####[facility]ORATORYCLIA [id number] [place] [address] [place] Procalcitonin SerPl-mCncon 1 Procalcitonin [Mass/Vol] 0.48 ng/mL High <0.09 [facility] Comment on above: Order Comment: Speci men Type: BLOOD SPECIMEN Ordering Facility: [facility] Address: [address] [place] [address] Result Comment: For a guided interpretation of test results, please visit the Change in Procalcitonin Calculator, [email or web address]. Performed By: #### 2 4321-2 #### [facility] CLIA [id number] [address] SEPSIS LACTATE W/ REFLEX (IN ITIAL)on 05-04-2025 Lactate [Moles/Vol] 0.8 mmol/L Normal 0.5-2.0 [facility] Comment on above: Order Comment: Speci men Type: BLOOD SPECIMENOrdering Facility: [facility] Address: [address] [place] [address] Performed By: #### S LACTR ####[facility]ORATORYCLIA [id number] [address] Urinalysis complete panel (U )on 05-04-2025 Bacteria LM.HPF (Urine sed) [#/Area] Few Abnormal None Seen [facility] Comment on above: Order Comment: Speci men Type: URINE SPECIMENOrdering Facility: [facility] Address: [address] [place] [address] Performed By: #### 2 4356-8 ####[facility]ORATORYCLIA [id number] [address] Bilirubin Ql (U) Negative Normal Negative [facility] Comment on above: Order Comment: Speci men Type: URINE SPECIMENOrdering Facility: [facility] Address: [address] [place] [address] Performed By: #### 2 4356-8 ####[facility]ORATORYCLIA [id number] [address] Clarity (Unsp spec) Clear Normal Clear [facility] Comment on above: Order Comment: Speci men Type: URINE SPECIMENOrdering Facility: [facility] Address: [address] [place] [address] Performed By: #### 2 4356-8 ####[facility]ORATORYCLIA [id number] [place] [address] [place] Color (U) Yellow Normal Yellow [facility] Comment on above: Order Comment: Speci men Type: URINE SPECIMENOrdering Facility: [facility] Address: [address] [place] [address] Performed By: #### 2 4356-8 ####[facility]ORATORYCLIA [id number] [place] [address] [place] Glucose Test strip (U) [Mass/Vol] Negative Normal Negative [facility] Comment on above: Order Comment: Speci men Type: URINE SPECIMENOrdering Facility: [facility] Address: [address] [place] [address] Performed By: #### 2 4356-8 ####[facility]ORATORYCLIA [id number] [place] [address] [place] Hemoglobin Ql (U) 2+ Abnormal Negative [facility] Comment on above: Order Comment: Speci men Type: URINE SPECIMENOrdering Facility: [facility] Address: [address] [place] [address] Performed By: #### 2 4356-8 ####[facility]ORATORYCLIA [id number] [address] [place] Ketones Ql (U) Negative Normal Negative [facility] Comment on above: Order Comment: Speci men Type: URINE SPECIMENOrdering Facility: [facility] Address: [address] [place] [address] Performed By: #### 2 4356-8 ####[facility]ORATORYCLIA [id number] [address] [place] Leukocyte esterase Test strip Ql (U) Negative Normal Negative [facility] Comment on above: Order Comment: Speci men Type: URINE SPECIMENOrdering Facility: [facility] Address: [address] [place] [address] Performed By: #### 2 4356-8 ####[facility]ORATORYCLIA [id number] [place] [address] [place] Nitrite Ql (U) Negative Normal Negative [facility] Comment on above: Order Comment: Speci men Type: URINE SPECIMENOrdering Facility: [facility] Address: [address] [place] [address] Performed By: #### 2 4356-8 ####[facility]ORATORYCLIA [id number] [address] pH (U) 6.0 [pH] Normal 5.0-8.0 [facility] Comment on above: Order Comment: Speci men Type: URINE SPECIMENOrdering Facility: [facility] Address: [address] [place] [address] Performed By: #### 2 4356-8 ####[facility]ORATORYCLIA [id number] [place] [address] [place] Protein (U) [Mass/Vol] 2+ Abnormal Negative [facility] Comment on above: Order Comment: Speci men Type: URINE SPECIMENOrdering Facility: [facility] Address: [address] [place] [address] Performed By: #### 2 4356-8 ####[facility]ORATORYCLIA [id number] [place] [address] [place] [facility] RBC LM.HPF (Urine sed) [#/Area] 3-5 /HPF Abnormal 0-3 /HPF [facility] Comment on above: Order Comment: Speci men Type: URINE SPECIMENOrdering Facility: [facility] Address: [address] [place] [address] Performed By: #### 2 4356-8 ####[facility]ORATORYCLIA [id number] [address] Specific gravity (U) [Rel density] 1.025 Normal 1.005-1.030 [facility] Comment on above: Order Comment: Speci men Type: URINE SPECIMENOrdering Facility: [facility] Address: [address] [place] [address] Performed By: #### 2 4356-8 ####[facility]ORATORYCLIA [id number] [address] [place] Urobilinogen Ql (U) 0.2 EU/dL Normal 0.2-1.0 EU/dL [facility] Comment on above: Order Comment: Speci men Type: URINE SPECIMENOrdering Facility: [facility] Address: [address] [place] [address] Performed By: #### 2 4356-8 ####[facility]ORATORYCLIA [id number] [address] [place] [facility] WBC LM.HPF (Urine sed) [#/Area] 0-5 /HPF Normal 0-5 /HPF [facility] Comment on above: Order Comment: Speci men Type: URINE SPECIMENOrdering Facility: [facility] Address: [address] [place] [address] Performed By: #### 2 4356-8 ####[facility]ORATORYCLIA [id number] [address] [place] aPTT PPPon 05-04-2025 aPTT Coag (PPP) [Time] 76.7 s High 23.0-32.4 [facility] Comment on above: Order Comment: Speci men Type: BLOOD SPECIMENOrdering Facility: [facility] Address: [address] [place] [address] Performed By: #### 1 4979-9 ####[facility] TROYCLIA [id number] [address] [place] [facility] Prot 24h Ur-mRateon 05-03-20 25 Protein (24H U) [Mass/Time] 0.14 g/24 Hr Normal <0.15 [facility] Comment on above: Order Comment: Speci men Type: URINE SPECIMENOrdering Facility: [facility] Address: [address] [place] [address] Result Comment: Adul t Proteinuria Categories:<0.15 g/24 hours is considered normal to mildly increased0.15 - 0.50 g/24 hours is considered moderately increased>0.50 g/24 hours is considered severely increasedKDIGO. (2013). KDIGO 2012 Clinical Practice Guideline for the Evaluation and Management of Chronic Kidney Disease. Official Journal of the International Society of Nephrology, 3(1), 1-150. Performed By: #### 2 889-4 ####[facility] LABCLIA [id number] [address] [id number] [place] [address] [place] Protein (24H U) [Mass/Time]o n 05-03-2025 PERIOD (HRS) 24 hr Normal [facility] Comment on above: Order Comment: Speci men Type: URINE SPECIMENOrdering Facility: [facility] Address: [address] [place] [address] Performed By: #### 2 889-4 ####[facility] LABIA [id number] [address] [id number] [place] [address] [place] Specimen volume (24H U) 0.625 L Normal [facility] Comment on above: Order Comment: Speci men Type: URINE SPECIMENOrdering Facility: [facility] Address: [address] [place] [address] Performed By: #### 2 889-4 ####[facility] LABIA [id number] [address] [id number] [place] [address] [place] CBC W Auto Differential pane l (Bld)on 05-01-2025 Basophils (Bld) [#/Vol] 10*3/uL Normal <0.11 [facility] Comment on above: Order Comment: Speci men Type: BLOOD SPECIMENOrdering Facility: [facility] Address: [address] [place] [address] Performed By: #### 5 7021-8 ####[facility] [id number] [place] [address] [place] Basophils/100 WBC (Bld) 0.3 % Normal [facility] Comment on above: Order Comment: Speci men Type: BLOOD SPECIMENOrdering Facility: [facility] Address: [address] [place] [address] Performed By: #### 5 7021-8 ####[facility] ZENON [id number] [place] [address] [place] Differential cell count method Nom (Bld) Auto Normal [facility] Comment on above: Order Comment: Speci men Type: BLOOD SPECIMENOrdering Facility: [facility] Address: [address] [place] [address] Performed By: #### 5 7021-8 ####[facility]OSPITALNCJASE [id number] [place] [address] [place] Eosinophils (Bld) [#/Vol] 0.04 10*3/uL Normal <0.46 [facility] Comment on above: Order Comment: Speci men Type: BLOOD SPECIMENOrdering Facility: [facility] Address: [address] [place] [address] Performed By: #### 5 7021-8 ####[facility]OSPITALNCNICOLETTEA [id number] [place] [address] [place] Eosinophils/100 WBC (Bld) 1.4 % Normal [facility] Comment on above: Order Comment: Speci men Type: BLOOD SPECIMENOrdering Facility: [facility] Address: [address] [place] [address] Performed By: #### 5 7021-8 ####[facility]PITALNCLIA [id number] [place] [address] [place] Erythrocyte distribution width (RBC) [Ratio] 16.8 % High 11.5-15.0 [facility] Comment on above: Order Comment: Speci men Type: BLOOD SPECIMENOrdering Facility: [facility] Address: [address] [place] [address] Performed By: #### 5 7021-8 ####[facility]ITALNCLIA [id number] [place] [address] [place] Hematocrit (Bld) [Volume fraction] 25.2 % Low 36.0-46.0 [facility] Comment on above: Order Comment: Speci men Type: BLOOD SPECIMENOrdering Facility: [facility] Address: [address] [place] [address] Performed By: #### 5 7021-8 ####[facility]OSPITALNICOLETTE [id number] [place] [address] [place] Hemoglobin (Bld) [Mass/Vol] 8.5 g/dL Low 11.5-15.5 [facility] Comment on above: Order Comment: Speci men Type: BLOOD SPECIMENOrdering Facility: [facility] Address: [address] [place] [address] Performed By: #### 5 7021-8 ####[facility] [id number] [place] [address] [place] Immature granulocytes (Bld) [#/Vol] 10*3/uL Normal <0.10 [facility] Comment on above: Order Comment: Speci men Type: BLOOD SPECIMENOrdering Facility: [facility] Address: [address] [place] [address] Performed By: #### 5 7021-8 ####[facility] HOSPITALLI [id number] [place] [address] [place] Immature granulocytes/100 WBC (Bld) 0.3 % Normal [facility] Comment on above: Order Comment: Speci men Type: BLOOD SPECIMENOrdering Facility: [facility] Address: [address] [place] [address] Performed By: #### 5 7021-8 ####[facility]ITALNCLIA [id number] [place] [address] [place] Lymphocytes (Bld) [#/Vol] 0.64 10*3/uL Low 1.00-4.00 [facility] Comment on above: Order Comment: Speci men Type: BLOOD SPECIMENOrdering Facility: [facility] Address: [address] [place] [address] Performed By: #### 5 7021-8 ####[facility] [id number] [place] [address] [place] Lymphocytes/100 WBC (Bld) 22.1 % Normal [facility] Comment on above: Order Comment: Speci men Type: BLOOD SPECIMENOrdering Facility: [facility] Address: [address] [place] [address] Performed By: #### 5 7021-8 ####[facility] [id number] [place] [address] [place] MCH (RBC) [Entitic mass] 35.4 pg High 26.0-34.0 [facility] Comment on above: Order Comment: Speci men Type: BLOOD SPECIMENOrdering Facility: [facility] Address: [address] [place] [address] Performed By: #### 5 7021-8 ####[facility] [id number] [place] [address] [place] MCHC (RBC) [Mass/Vol] 33.7 g/dL Normal 30.5-36.0 [facility] Comment on above: Order Comment: Speci men Type: BLOOD SPECIMENOrdering Facility: [facility] Address: [address] [place] [address] Performed By: #### 5 7021-8 ####[facility] [id number] [place] [address] [place] MCV (RBC) [Entitic vol] 105.0 fL High 80.0-100.0 [facility] Comment on above: Order Comment: Speci men Type: BLOOD SPECIMENOrdering Facility: [facility] Address: [address] [place] [address] Performed By: #### 5 7021-8 ####[facility] MILLTOWNCLIA [id number] [place] [address] [place] Monocytes (Bld) [#/Vol] 0.52 10*3/uL Normal <0.87 [facility] Comment on above: Order Comment: Speci men Type: BLOOD SPECIMENOrdering Facility: [facility] Address: [address] [place] [address] Performed By: #### 5 7021-8 ####[facility]ITALNCLIA [id number] [place] [address] [place] Monocytes/100 WBC (Bld) 17.9 % Normal [facility] Comment on above: Order Comment: Speci men Type: BLOOD SPECIMENOrdering Facility: [facility] Address: [address] [place] [address] Performed By: #### 5 7021-8 ####[facility]OSPITALLIA [id number] [place] [address] [place] Neutrophils (Bld) [#/Vol] 1.68 10*3/uL Normal 1.45-7.50 [facility] Comment on above: Order Comment: Speci men Type: BLOOD SPECIMENOrdering Facility: [facility] Address: [address] [place] [address] Performed By: #### 5 7021-8 ####[facility] CENTERWNCLIA [id number] [place] [address] [place] Neutrophils/100 WBC (Bld) 58.0 % Normal [facility] Comment on above: Order Comment: Speci men Type: BLOOD SPECIMENOrdering Facility: [facility] Address: [address] [place] [address] Performed By: #### 5 7021-8 ####[facility] [id number] [place] [address] [place] Nucleated RBC (Bld) [#/Vol] 10*3/uL Normal <0.01 [facility] Comment on above: Order Comment: Speci men Type: BLOOD SPECIMENOrdering Facility: [facility] Address: [address] [place] [address] Performed By: #### 5 7021-8 ####[facility] [id number] [place] [address] [place] Nucleated RBC/100 WBC (Bld) [Ratio] 0.0 /100 WBC Normal [facility] Comment on above: Order Comment: Speci men Type: BLOOD SPECIMENOrdering Facility: [facility] Address: [address] [place] [address] Performed By: #### 5 7021-8 ####[facility] [id number] [place] [address] [place] Platelet mean volume (Bld) [Entitic vol] 11.6 fL Normal 9.0-12.7 [facility] Comment on above: Order Comment: Speci men Type: BLOOD SPECIMENOrdering Facility: [facility] Address: [address] [place] [address] Performed By: #### 5 7021-8 ####[facility] [id number] [place] [address] [place] Platelets (Bld) [#/Vol] 146 10*3/uL Low 150-400 [facility] Comment on above: Order Comment: Speci men Type: BLOOD SPECIMENOrdering Facility: [facility] Address: [address] [place] [address] Result Comment: No c lot detected. Performed By: #### 5 7021-8 ####[facility]PITALLI [id number] [place] [address] [place] RBC (Bld) [#/Vol] 2.40 10*6/uL Low 3.90-5.20 [facility] Comment on above: Order Comment: Speci men Type: BLOOD SPECIMENOrdering Facility: [facility] Address: [address] [place] [address] Performed By: #### 5 7021-8 ####[facility] JARONROME [id number] [place] [address] [place] WBC (Bld) [#/Vol] 2.90 10*3/uL Low 3.70-11.00 [facility] Comment on above: Order Comment: Speci men Type: BLOOD SPECIMENOrdering Facility: [facility] Address: [address] [place] [address] Performed By: #### 5 7021-8 ####[facility]PITALYANIRA [id number] [place] [address] [place] Comprehensive metabolic 2000 panelon 05-01-2025 Albumin [Mass/Vol] 4.1 g/dL Normal 3.9-4.9 [facility] Comment on above: Order Comment: Speci men Type: BLOOD SPECIMENOrdering Facility: [facility] Address: [address] [place] [address] Performed By: #### 2 4323-8, 56927-4 ####[facility]OSPITALYANIRA [id number] [place] [address] [place] ALP [Catalytic activity/Vol] 246 U/L High 34-123 [facility] Comment on above: Order Comment: Speci men Type: BLOOD SPECIMENOrdering Facility: [facility] Address: [address] [place] [address] Performed By: #### 2 4323-8, 78184-5 ####[facility] HOSPITALKEATONNCLIA [id number] [place] [address] [place] ALT [Catalytic activity/Vol] 68 U/L High 7-38 [facility] Comment on above: Order Comment: Speci men Type: BLOOD SPECIMENOrdering Facility: [facility] Address: [address] [place] [address] Performed By: #### 2 432-8, ####[facility]ITALNCLIA [id number] [place] [address] [place] Anion gap [Moles/Vol] 11 mmol/L Normal 8-15 [facility] Comment on above: Order Comment: Speci men Type: BLOOD SPECIMENOrdering Facility: [facility] Address: [address] [place] [address] Performed By: #### 2 4323-8, ####[facility] [id number] [place] [address] [place] AST [Catalytic activity/Vol] 61 U/L High 13-35 [facility] Comment on above: Order Comment: Speci men Type: BLOOD SPECIMENOrdering Facility: [facility] Address: [address] [place] [address] Performed By: #### 2 4323-02, ####[facility] [id number] [place] [address] [place] Bilirubin [Mass/Vol] 0.6 mg/dL Normal 0.2-1.3 [facility] Comment on above: Order Comment: Speci men Type: BLOOD SPECIMENOrdering Facility: [facility] Address: [address] [place] [address] Performed By: #### 2 4323-8, ####[facility]A [id number] [place] [address] [place] Calcium [Mass/Vol] 9.3 mg/dL Normal 8.5-10.2 [facility] Comment on above: Order Comment: Speci men Type: BLOOD SPECIMENOrdering Facility: [facility] Address: [address] [place] [address] Performed By: #### 2 4323-8, ####[facility] JARONSofyaNCNICOLETTEA [id number] [place] [address] [place] Chloride [Moles/Vol] 103 mmol/L Normal 98-107 [facility] Comment on above: Order Comment: Speci men Type: BLOOD SPECIMENOrdering Facility: [facility] Address: [address] [place] [address] Performed By: #### 2 4323-8, ####[facility]PITALYANIRA [id number] [place] [address] [place] CO2 [Moles/Vol] 24 mmol/L Normal 22-30 [facility] Comment on above: Order Comment: Speci men Type: BLOOD SPECIMENOrdering Facility: [facility] Address: [address] [place] [address] Performed By: #### 2 4323-8, ####[facility] HOSPITALHAIA [id number] [place] [address] [place] Creatinine [Mass/Vol] 1.16 mg/dL High 0.58-0.96 [facility] Comment on above: Order Comment: Speci men Type: BLOOD SPECIMENOrdering Facility: [facility] Address: [address] [place] [address] Performed By: #### 2 4323-8, ####[facility]OSPITALNCLIA [id number] [place] [address] [place] eGFRcr SerPlBld CKD-EPI 2020 50 mL/min/1.73m??? Low >=60 [facility] Comment on above: Order Comment: Speci men Type: BLOOD SPECIMENOrdering Facility: [facility] Address: [address] [place] [address] Result Comment: Fernanda mated Glomerular Filtration Rate [...] actual GFR. Performed By: #### 2 4323-8, ####[facility] [id number] [place] [address] [place] Glucose [Mass/Vol] 124 mg/dL High 74-99 [facility] Comment on above: Order Comment: Riaz hernández Type: BLOOD SPECIMENOrdering Facility: [facility] Address: [address] [place] [address] Result Comment: The [place] [employer] (ADA) provides guidance for cutoff [...] Standards of Medical Care in Diabetes 2016, [place] [employer]. Diabetes Care. 2016.39(Suppl 1). Performed By: #### 2 4323-8, ####[facility]ENTERA [id number] [place] [address] [place] Potassium [Moles/Vol] 3.7 mmol/L Normal 3.7-5.1 [facility] Comment on above: Order Comment: Riaz hernández Type: BLOOD SPECIMENOrdering Facility: [facility] Address: [address] [place], [place] [address] Performed By: #### 2 4323-8, ####[facility] MILLTOWNCLIA [id number] [place] [address] [place] Protein [Mass/Vol] 6.2 g/dL Low 6.3-8.0 [facility] Comment on above: Order Comment: Speci men Type: BLOOD SPECIMENOrdering Facility: [facility] Address: [address] [place] [address] Performed By: #### 2 4323-8, 40437-3 ####[facility] MILLTOWNCLIA [id number] [place] [address] [place] Sodium [Moles/Vol] 138 mmol/L Normal 136-144 [facility] Comment on above: Order Comment: Speci men Type: BLOOD SPECIMENOrdering Facility: [facility] Address: [address] [place] [address] Performed By: #### 2 4323-8, 46862-5 ####[facility] MILLTOWNCLIA [id number] [place] [address] [place] Urea nitrogen [Mass/Vol] 34 mg/dL High 7-21 [facility] Comment on above: Order Comment: Speci men Type: BLOOD SPECIMENOrdering Facility: [facility] Address: [address] [place] [address] Performed By: #### 2 4323-8, ####[facility] MILLTOWNCLIA [id number] [place] [address] [place] Magnesium SerPl-mCncon 05-01 Magnesium [Mass/Vol] 1.7 mg/dL Normal 1.7-2.3 [facility] Comment on above: Order Comment: Speci men Type: BLOOD SPECIMENOrdering Facility: [facility] Address: [address] [place] [address] Performed By: #### 2 4323-8, ####[facility] MILLTOWNCLIA [id number] [place] [address] [place] CBC W Auto Differential pane l (Bld)on 04-29-2025 Basophils (Bld) [#/Vol] 10*3/uL Normal <0.11 [facility] Comment on above: Order Comment: Speci men Type: BLOOD SPECIMENOrdering Facility: [facility] Address: [address] [place] [address] Performed By: #### 5 7021-8 ####[facility] [id number] [place] [address] [place] Basophils/100 WBC (Bld) 0.3 % Normal [facility] Comment on above: Order Comment: Speci men Type: BLOOD SPECIMENOrdering Facility: [facility] Address: [address] [place] [address] Performed By: #### 5 7021-8 ####[facility] [id number] [place] [address] [place] Differential cell count method Nom (Bld) Auto Normal [facility] Comment on above: Order Comment: Speci men Type: BLOOD SPECIMENOrdering Facility: [facility] Address: [address] [place] [address] Performed By: #### 5 7021-8 ####[facility] [id number] [place] [address] [place] Eosinophils (Bld) [#/Vol] 0.07 10*3/uL Normal <0.46 [facility] Comment on above: Order Comment: Speci men Type: BLOOD SPECIMENOrdering Facility: [facility] Address: [address] [place] [address] Performed By: #### 5 7021-8 ####[facility] [id number] [place] [address] [place] Eosinophils/100 WBC (Bld) 2.2 % Normal [facility] Comment on above: Order Comment: Speci men Type: BLOOD SPECIMENOrdering Facility: [facility] Address: [address] [place] [address] Performed By: #### 5 7021-8 ####[facility] HOSPITALNCJORD[facility] [id number] [place] [address] [place] Erythrocyte distribution width (RBC) [Ratio] 17.1 % High 11.5-15.0 [facility] Comment on above: Order Comment: Speci men Type: BLOOD SPECIMENOrdering Facility: [facility] Address: [address] [place] [address] Performed By: #### 5 7021-8 ####[facility] HOSPITALNCLI [id number] [place] [address] [place] Hematocrit (Bld) [Volume fraction] 24.0 % Low 36.0-46.0 [facility] Comment on above: Order Comment: Speci men Type: BLOOD SPECIMENOrdering Facility: [facility] Address: [address] [place] [address] Performed By: #### 5 7021-8 ####[facility]ENTERA [id number] [place] [address] [place] Hemoglobin (Bld) [Mass/Vol] 8.0 g/dL Low 11.5-15.5 [facility] Comment on above: Order Comment: Speci men Type: BLOOD SPECIMENOrdering Facility: [facility] Address: [address] [place] [address] Performed By: #### 5 7021-8 ####[facility] [id number] [place] [address] [place] Immature granulocytes (Bld) [#/Vol] 10*3/uL Normal <0.10 [facility] Comment on above: Order Comment: Speci men Type: BLOOD SPECIMENOrdering Facility: [facility] Address: [address] [place] [address] Performed By: #### 5 7021-8 ####[facility]OSPITALNCLIA [id number] [place] [address] [place] [facility] Immature granulocytes/100 WBC (Bld) 0.3 % Normal [facility] Comment on above: Order Comment: Speci men Type: BLOOD SPECIMENOrdering Facility: [facility] Address: [address] [place] [address] Performed By: #### 5 7021-8 ####[facility] HOSPITALNCLI [id number] [place] [address] [place] Lymphocytes (Bld) [#/Vol] 0.95 10*3/uL Low 1.00-4.00 [facility] Comment on above: Order Comment: Speci men Type: BLOOD SPECIMENOrdering Facility: [facility] Address: [address] [place] [address] Performed By: #### 5 7021-8 ####[facility] [id number] [place] [address] [place] Lymphocytes/100 WBC (Bld) 29.9 % Normal [facility] Comment on above: Order Comment: Speci men Type: BLOOD SPECIMENOrdering Facility: [facility] Address: [address] [place] [address] Performed By: #### 5 7021-8 ####[facility] HOSPITALNCLI [id number] [place] [address] [place] MCH (RBC) [Entitic mass] 34.9 pg High 26.0-34.0 [facility] Comment on above: Order Comment: Speci men Type: BLOOD SPECIMENOrdering Facility: [facility] Address: [address] [place] [address] Performed By: #### 5 7021-8 ####[facility] HOSPITALNCJORD[facility] [id number] [place] [address] [place] MCHC (RBC) [Mass/Vol] 33.3 g/dL Normal 30.5-36.0 [facility] Comment on above: Order Comment: Speci men Type: BLOOD SPECIMENOrdering Facility: [facility] Address: [address] [place] [address] Performed By: #### 5 7021-8 ####[facility] JARONWALNUT SPRINGSBANGNICOLETTEA [id number] [place] [address] [place] MCV (RBC) [Entitic vol] 104.8 fL High 80.0-100.0 [facility] Comment on above: Order Comment: Speci men Type: BLOOD SPECIMENOrdering Facility: [facility] Address: [address] [place] [address] Performed By: #### 5 7021-8 ####[facility] HOSPITALBANGJORDAN [facility] [id number] [place] [address] [place] Monocytes (Bld) [#/Vol] 0.57 10*3/uL Normal <0.87 [facility] Comment on above: Order Comment: Speci men Type: BLOOD SPECIMENOrdering Facility: [facility] Address: [address] [place] [address] Performed By: #### 5 7021-8 ####[facility] HOSPITALHAIA [id number] [place] [address] [place] Monocytes/100 WBC (Bld) 17.9 % Normal [facility] Comment on above: Order Comment: Speci men Type: BLOOD SPECIMENOrdering Facility: [facility] Address: [address] [place] [address] Performed By: #### 5 7021-8 ####[facility] HOSPITALLIA [id number] [place] [address] [place] Neutrophils (Bld) [#/Vol] 1.57 10*3/uL Normal 1.45-7.50 [facility] Comment on above: Order Comment: Speci men Type: BLOOD SPECIMENOrdering Facility: [facility] Address: [address] [place] [address] Performed By: #### 5 7021-8 ####[facility] [id number] [place] [address] [place] Neutrophils/100 WBC (Bld) 49.4 % Normal [facility] Comment on above: Order Comment: Speci men Type: BLOOD SPECIMENOrdering Facility: [facility] Address: [address] [place] [address] Performed By: #### 5 7021-8 ####[facility] [id number] [place] [address] [place] Nucleated RBC (Bld) [#/Vol] 10*3/uL Normal <0.01 [facility] Comment on above: Order Comment: Speci men Type: BLOOD SPECIMENOrdering Facility: [facility] Address: [address] [place] [address] Performed By: #### 5 7021-8 ####[facility] [id number] [place] [address] [place] Nucleated RBC/100 WBC (Bld) [Ratio] 0.0 /100 WBC Normal [facility] Comment on above: Order Comment: Speci men Type: BLOOD SPECIMENOrdering Facility: [facility] Address: [address] [place] [address] Performed By: #### 5 7021-8 ####[facility] [id number] [place] [address] [place] Platelet mean volume (Bld) [Entitic vol] 12.2 fL Normal 9.0-12.7 [facility] Comment on above: Order Comment: Speci men Type: BLOOD SPECIMENOrdering Facility: [facility] Address: [address] [place] [address] Performed By: #### 5 7021-8 ####[facility] HOSPITALNCLIA [id number] [place] [address] [place] Platelets (Bld) [#/Vol] 82 10*3/uL Low 150-400 [facility] Comment on above: Order Comment: Speci men Type: BLOOD SPECIMENOrdering Facility: [facility] Address: [address] [place] [address] Result Comment: No c lot detected. Performed By: #### 5 7021-8 ####[facility] HOSPITALNCA [id number] [place] [address] [place] RBC (Bld) [#/Vol] 2.29 10*6/uL Low 3.90-5.20 [facility] Comment on above: Order Comment: Speci men Type: BLOOD SPECIMENOrdering Facility: [facility] Address: [address] [place] [address] Performed By: #### 5 7021-8 ####[facility] CENTERA [id number] [place] [address] [place] WBC (Bld) [#/Vol] 3.18 10*3/uL Low 3.70-11.00 [facility] Comment on above: Order Comment: Speci men Type: BLOOD SPECIMENOrdering Facility: [facility] Address: [address] [place] [address] Performed By: #### 5 7021-8 ####[facility] HOSPITALNCLIA [id number] [place] [address] [place] CBC W Auto Differential pane l (Bld)on 04-24-2025 Basophils (Bld) [#/Vol] 10*3/uL Normal <0.11 [facility] Comment on above: Order Comment: Speci men Type: BLOOD SPECIMENOrdering Facility: [facility] Address: [address] [place] [address] Performed By: #### 5 7021-8 ####[facility] MILLWNCLIA [id number] [place] [address] [place] Basophils/100 WBC (Bld) 0.3 % Normal [facility] Comment on above: Order Comment: Speci men Type: BLOOD SPECIMENOrdering Facility: [facility] Address: [address] [place] [address] Performed By: #### 5 7021-8 ####[facility]OSPITALLIA [id number] [place] [address] [place] Differential cell count method Nom (Bld) Auto Normal [facility] Comment on above: Order Comment: Speci men Type: BLOOD SPECIMENOrdering Facility: [facility] Address: [address] [place] [address] Performed By: #### 5 7021-8 ####[facility]OSPITALLIA [id number] [place] [address] [place] Eosinophils (Bld) [#/Vol] 0.07 10*3/uL Normal <0.46 [facility] Comment on above: Order Comment: Speci men Type: BLOOD SPECIMENOrdering Facility: [facility] Address: [address] [place] [address] Performed By: #### 5 7021-8 ####[facility] HOSPITALNCLIA [id number] [place] [address] [place] Eosinophils/100 WBC (Bld) 1.8 % Normal [facility] Comment on above: Order Comment: Speci men Type: BLOOD SPECIMENOrdering Facility: [facility] Address: [address] [place] [address] Performed By: #### 5 7021-8 ####[facility] HOSPITALNCLIA [id number] [place] [address] [place] Erythrocyte distribution width (RBC) [Ratio] 15.1 % High 11.5-15.0 [facility] Comment on above: Order Comment: Speci men Type: BLOOD SPECIMENOrdering Facility: [facility] Address: [address] [place] [address] Performed By: #### 5 7021-8 ####[facility] [id number] [place] [address] [place] Hematocrit (Bld) [Volume fraction] 23.7 % Low 36.0-46.0 [facility] Comment on above: Order Comment: Speci men Type: BLOOD SPECIMENOrdering Facility: [facility] Address: [address] [place] [address] Performed By: #### 5 7021-8 ####[facility] [id number] [place] [address] [place] Hemoglobin (Bld) [Mass/Vol] 8.1 g/dL Low 11.5-15.5 [facility] Comment on above: Order Comment: Speci men Type: BLOOD SPECIMENOrdering Facility: [facility] Address: [address] [place] [address] Performed By: #### 5 7021-8 ####[facility] [id number] [place] [address] [place] Immature granulocytes (Bld) [#/Vol] 10*3/uL Normal <0.10 [facility] Comment on above: Order Comment: Speci men Type: BLOOD SPECIMENOrdering Facility: [facility] Address: [address] [place] [address] Performed By: #### 5 7021-8 ####[facility] [id number] [place] [address] [place] Immature granulocytes/100 WBC (Bld) 0.5 % Normal [facility] Comment on above: Order Comment: Speci men Type: BLOOD SPECIMENOrdering Facility: [facility] Address: [address] [place] [address] Performed By: #### 5 7021-8 ####[facility] JARONWALNUT SPRINGSYANIRA [id number] [place] [address] [place] Lymphocytes (Bld) [#/Vol] 0.97 10*3/uL Low 1.00-4.00 [facility] Comment on above: Order Comment: Speci men Type: BLOOD SPECIMENOrdering Facility: [facility] Address: [address] [place] [address] Performed By: #### 5 7021-8 ####[facility] [id number] [place] [address] [place] Lymphocytes/100 WBC (Bld) 25.3 % Normal [facility] Comment on above: Order Comment: Speci men Type: BLOOD SPECIMENOrdering Facility: [facility] Address: [address] [place] [address] Performed By: #### 5 7021-8 ####[facility] [id number] [place] [address] [place] MCH (RBC) [Entitic mass] 35.4 pg High 26.0-34.0 [facility] Comment on above: Order Comment: Speci men Type: BLOOD SPECIMENOrdering Facility: [facility] Address: [address] [place] [address] Performed By: #### 5 7021-8 ####[facility]OSPITALNCLIA [id number] [place] [address] [place] MCHC (RBC) [Mass/Vol] 34.2 g/dL Normal 30.5-36.0 [facility] Comment on above: Order Comment: Speci men Type: BLOOD SPECIMENOrdering Facility: [facility] Address: [address] [place] [address] Performed By: #### 5 7021-8 ####[facility] JARONWNCLIA [id number] [place] [address] [place] MCV (RBC) [Entitic vol] 103.5 fL High 80.0-100.0 [facility] Comment on above: Order Comment: Speci men Type: BLOOD SPECIMENOrdering Facility: [facility] Address: [address] [place] [address] Performed By: #### 5 7021-8 ####[facility] [id number] [place] [address] [place] Monocytes (Bld) [#/Vol] 0.35 10*3/uL Normal <0.87 [facility] Comment on above: Order Comment: Speci men Type: BLOOD SPECIMENOrdering Facility: [facility] Address: [address] [place] [address] Performed By: #### 5 7021-8 ####[facility] [id number] [place] [address] [place] Monocytes/100 WBC (Bld) 9.1 % Normal [facility] Comment on above: Order Comment: Speci men Type: BLOOD SPECIMENOrdering Facility: [facility] Address: [address] [place] [address] Performed By: #### 5 7021-8 ####[facility] [id number] [place] [address] [place] Neutrophils (Bld) [#/Vol] 2.42 10*3/uL Normal 1.45-7.50 [facility] Comment on above: Order Comment: Speci men Type: BLOOD SPECIMENOrdering Facility: [facility] Address: [address] [place] [address] Performed By: #### 5 7021-8 ####[facility]OSPITALNCLIA [id number] [place] [address] [place] Neutrophils/100 WBC (Bld) 63.0 % Normal [facility] Comment on above: Order Comment: Speci men Type: BLOOD SPECIMENOrdering Facility: [facility] Address: [address] [place] [address] Performed By: #### 5 7021-8 ####[facility]OSPITALNCJORD[facility] [id number] [place] [address] [place] Nucleated RBC (Bld) [#/Vol] 10*3/uL Normal <0.01 [facility] Comment on above: Order Comment: Speci men Type: BLOOD SPECIMENOrdering Facility: [facility] Address: [address] [place] [address] Performed By: #### 5 7021-8 ####[facility] [id number] [place] [address] [place] Nucleated RBC/100 WBC (Bld) [Ratio] 0.0 /100 WBC Normal [facility] Comment on above: Order Comment: Speci men Type: BLOOD SPECIMENOrdering Facility: [facility] Address: [address] [place] [address] Performed By: #### 5 7021-8 ####[facility] [id number] [place] [address] [place] Platelet mean volume (Bld) [Entitic vol] 11.8 fL Normal 9.0-12.7 [facility] Comment on above: Order Comment: Speci men Type: BLOOD SPECIMENOrdering Facility: [facility] Address: [address] [place] [address] Performed By: #### 5 7021-8 ####[facility] [id number] [place] [address] [place] Platelets (Bld) [#/Vol] 32 10*3/uL Low 150-400 [facility] Comment on above: Order Comment: Speci men Type: BLOOD SPECIMENOrdering Facility: [facility] Address: [address] [place] [address] Result Comment: No c lot detected. Performed By: #### 5 7021-8 ####[facility] HOSPITALBANGA [id number] [place] [address] [place] RBC (Bld) [#/Vol] 2.29 10*6/uL Low 3.90-5.20 [facility] Comment on above: Order Comment: Speci men Type: BLOOD SPECIMENOrdering Facility: [facility] Address: [address] [place] [address] Performed By: #### 5 7021-8 ####[facility] HOSPITALNCA [id number] [place] [address] [place] WBC (Bld) [#/Vol] 3.84 10*3/uL Normal 3.70-11.00 [facility] Comment on above: Order Comment: Speci men Type: BLOOD SPECIMENOrdering Facility: [facility] Address: [address] [place] [address] Performed By: #### 5 7021-8 ####[facility]ENTERA [id number] [place] [address] [place] Cancer Ag125 SerPl-aCncon Cancer Ag 125 Qn 58 [arb'U]/mL High <39 [facility] Comment on above: Order Comment: Speci men Type: BLOOD SPECIMENOrdering Facility: [facility] Address: [address] [place] [address] Result Comment: CA 1 25 test methodology [...] (CA 125 II) [package insert V 1.0 Swazi]. [facility], [place], [place] (April 2015) Performed By: #### 1 0334-1 ####[facility] LABCLIA [id number] [place] [address] [place] Comprehensive metabolic 2000 panelon 04-24-2025 Albumin [Mass/Vol] 3.8 g/dL Low 3.9-4.9 [facility] Comment on above: Order Comment: Speci men Type: BLOOD SPECIMENOrdering Facility: [facility] Address: [address] [place] [address] Performed By: #### 2 4323-8, 26905-8 ####[facility] HOSPITALBANGDarryl [id number] [place] [address] [place] ALP [Catalytic activity/Vol] 221 U/L High 34-123 [facility] Comment on above: Order Comment: Speci men Type: BLOOD SPECIMENOrdering Facility: [facility] Address: [address] [place] [address] Performed By: #### 2 4323-8, ####[facility] [id number] [place] [address] [place] ALT [Catalytic activity/Vol] 49 U/L High 7-38 [facility] Comment on above: Order Comment: Speci men Type: BLOOD SPECIMENOrdering Facility: [facility] Address: [address] [place] [address] Performed By: #### 2 4323-8, ####[facility] CENTERA [id number] [place] [address] [place] Anion gap [Moles/Vol] 15 mmol/L Normal 8-15 [facility] Comment on above: Order Comment: Speci men Type: BLOOD SPECIMENOrdering Facility: [facility] Address: [address] [place] [address] Performed By: #### 2 4323-8, ####[facility] MILLTOWNCLIA [id number] [place] [address] [place] AST [Catalytic activity/Vol] 51 U/L High 13-35 [facility] Comment on above: Order Comment: Speci men Type: BLOOD SPECIMENOrdering Facility: [facility] Address: [address] [place] [address] Performed By: #### 2 432-8, ####[facility] MILLTOWNCLIA [id number] [place] [address] [place] Bilirubin [Mass/Vol] 0.5 mg/dL Normal 0.2-1.3 [facility] Comment on above: Order Comment: Speci men Type: BLOOD SPECIMENOrdering Facility: [facility] Address: [address] [place] [address] Performed By: #### 2 432-8, ####[facility] HOSPITALNCLIA [id number] [place] [address] [place] Calcium [Mass/Vol] 9.6 mg/dL Normal 8.5-10.2 [facility] Comment on above: Order Comment: Speci men Type: BLOOD SPECIMENOrdering Facility: [facility] Address: [address] [place] [address] Performed By: #### 2 4323-8, ####[facility] MILLWNCLIA [id number] [place] [address] [place] Chloride [Moles/Vol] 101 mmol/L Normal 98-107 [facility] Comment on above: Order Comment: Speci men Type: BLOOD SPECIMENOrdering Facility: [facility] Address: [address] [place] [address] Performed By: #### 2 4323-8, ####[facility] MILLWNCLIA [id number] [place] [address] [place] CO2 [Moles/Vol] 24 mmol/L Normal 22-30 [facility] Comment on above: Order Comment: Speci men Type: BLOOD SPECIMENOrdering Facility: [facility] Address: [address] [place] [address] Performed By: #### 2 4323-8, ####[facility] HOSPITALNCDarryl [id number] [place] [address] [place] Creatinine [Mass/Vol] 1.08 mg/dL High 0.58-0.96 [facility] Comment on above: Order Comment: Speci men Type: BLOOD SPECIMENOrdering Facility: [facility] Address: [address] [place] [address] Performed By: #### 2 4323-8, ####[facility] HOSPITALNCLIA [id number] [place] [address] [place] eGFRcr SerPlBld CKD-EPI 2020 54 mL/min/1.73m??? Low >=60 [facility] Comment on above: Order Comment: Speci men Type: BLOOD SPECIMENOrdering Facility: [facility] Address: [address] [place] [address] Result Comment: Fernanda mated Glomerular Filtration Rate [...] actual GFR. Performed By: #### 2 4323-8, ####[facility] HOSPITALNCLIA [id number] [place] [address] [place] Glucose [Mass/Vol] 111 mg/dL High 74-99 [facility] Comment on above: Order Comment: Speci men Type: BLOOD SPECIMENOrdering Facility: [facility] Address: [address] [place], [place] [address] Result Comment: The [place] [employer] (ADA) provides guidance for cutoff [...] Standards of Medical Care in Diabetes 2016, [place] [employer]. Diabetes Care. 2016.39(Suppl 1). Performed By: #### 2 4323-8, ####[facility] CENTERDarryl [id number] [place] [address] [place] Potassium [Moles/Vol] 4.4 mmol/L Normal 3.7-5.1 [facility] Comment on above: Order Comment: Riaz hernández Type: BLOOD SPECIMENOrdering Facility: [facility] Address: [address] [place] [address] Performed By: #### 2 4323-8, ####[facility] CENTERDarryl [id number] [place] [address] [place] Protein [Mass/Vol] 6.1 g/dL Low 6.3-8.0 [facility] Comment on above: Order Comment: Riaz hernández Type: BLOOD SPECIMENOrdering Facility: [facility] Address: [address] [place], [place] [address] Performed By: #### 2 4323-8, ####[facility] CENTERWNCLIA [id number] [place] [address] [place] Sodium [Moles/Vol] 140 mmol/L Normal 136-144 [facility] Comment on above: Order Comment: Speci men Type: BLOOD SPECIMENOrdering Facility: [facility] Address: [address] [place] [address] Performed By: #### 2 4323-8, ####[facility] MILLWNCLIA [id number] [place] [address] [place] Urea nitrogen [Mass/Vol] 34 mg/dL High 7-21 [facility] Comment on above: Order Comment: Speci men Type: BLOOD SPECIMENOrdering Facility: [facility] Address: [address] [place] [address] Performed By: #### 2 4323-8, ####[facility] HOSPITALNCLIA [id number] [place] [address] [place] Magnesium SerPl-mCncon 04-24 Magnesium [Mass/Vol] 1.7 mg/dL Normal 1.7-2.3 [facility] Comment on above: Order Comment: Speci men Type: BLOOD SPECIMENOrdering Facility: [facility] Address: [address] [place] [address] Performed By: #### 2 4323-8, ####[facility] HOSPITALBANGLIA [id number] [place] [address] [place] CBC W Auto Differential pane l (Bld)on 04-17-2025 Anisocytosis Ql (Bld) Present Normal [facility] Comment on above: Order Comment: Speci men Type: BLOOD SPECIMENOrdering Facility: [facility] Address: [address] [place] [address] Performed By: #### 1 4196-0 ####[facility] LABORATORYCLIA [id number] [place] [address] [place]#### 51418-7 ####[facility] MILLWALNUT SPRINGSBANGLIA [id number] [address] LABORATORYCLIA [id number] [place] [address] [place] Basophils (Bld) [#/Vol] 0.00 10*3/uL Normal <0.11 [facility] Comment on above: Order Comment: Speci men Type: BLOOD SPECIMENOrdering Facility: [facility] Address: [address] [place] [address] Performed By: #### 1 4196-0 ####[facility] LABORATORYCLIA [id number] [place] [address] [place]#### 41854-9 ####[facility] CENTERWNCLIA [id number] [address] LABORATORYCLIA [id number] [place] [address] [place] Basophils/100 WBC (Bld) 0.0 % Normal [facility] Comment on above: Order Comment: Speci men Type: BLOOD SPECIMENOrdering Facility: [facility] Address: [address] [place] [address] Performed By: #### 1 4196-0 ####[facility] ROSWELLEL[facility] LABORATORYCLIA [id number] [address] [place]#### 39985-5 ####[facility] CENTERWNCLIA [id number] [address] LABORATORYCLIA [id number] [place] [address] [place] Differential cell count method Nom (Bld) Manual Normal [facility] Comment on above: Order Comment: Speci men Type: BLOOD SPECIMENOrdering Facility: [facility] Address: [address] [place] [address] Performed By: #### 1 4196-0 ####[facility] LABORATORYCLIA [id number] [address]#### 42361-6 ####[facility] JARONWILLIA [id number] [address] LABORATORYCLIA [id number] [place] [address] [place] Eosinophils (Bld) [#/Vol] 0.02 10*3/uL Normal <0.46 [facility] Comment on above: Order Comment: Speci men Type: BLOOD SPECIMENOrdering Facility: [facility] Address: [address] [place] [address] Performed By: #### 1 4196-0 ####[facility] LABORATORYCLIA [id number] [address]#### 07424-6 ####[facility]ENTERA [id number] [address] LABORATORYCLIA [id number] [place] [address] [place] Eosinophils/100 WBC (Bld) 1.0 % Normal [facility] Comment on above: Order Comment: Speci men Type: BLOOD SPECIMENOrdering Facility: [facility] Address: [address] [place] [address] Performed By: #### 1 4196-0 ####[facility] ROSWELLELIS [facility] LABORATORYCLIA [id number] [address] [place]#### 63985-4 ####[facility]ENTERA [id number] [address] LABORATORYCLIA [id number] [place] [address] [place] Erythrocyte distribution width (RBC) [Ratio] 15.2 % High 11.5-15.0 [facility] Comment on above: Order Comment: Speci men Type: BLOOD SPECIMENOrdering Facility: [facility] Address: [address] [place] [address] Performed By: #### 1 4196-0 ####[facility] LABORATORYCLIA [id number] [place] [address] [place]#### 02602-0 ####[facility] ZENON [id number] [address] LABORATORYCLIA [id number] [place] [address] [place] Hematocrit (Bld) [Volume fraction] 25.2 % Low 36.0-46.0 [facility] Comment on above: Order Comment: Speci men Type: BLOOD SPECIMENOrdering Facility: [facility] Address: [address] [place] [address] Performed By: #### 1 4196-0 ####[facility] LABORATORYIA [id number] [address]#### 94956-0 ####[facility] JARONNEURODIAGNOSTIC INSTITUTENICOLETTEA [id number] [address] LABORATORYIA [id number] [place] [address] [place] Hemoglobin (Bld) [Mass/Vol] 8.5 g/dL Low 11.5-15.5 [facility] Comment on above: Order Comment: Speci men Type: BLOOD SPECIMENOrdering Facility: [facility] Address: [facility] [place] [address] Performed By: #### 1 4196-0 ####[facility] LABORATORYCLIA [id number] [address] [place]#### 61648-5 ####[facility] JARONWALNUT SPRINGSNCNICOLETTEA [id number] [address] LABORATORYCLIA [id number] [place] [address] [place] Lymphocytes (Bld) [#/Vol] 0.67 10*3/uL Low 1.00-4.00 [facility] Comment on above: Order Comment: Speci men Type: BLOOD SPECIMENOrdering Facility: [facility] Address: [address] [place] [address] Performed By: #### 1 4196-0 ####[facility] LABORATORYCLIA [id number] [address] [place]#### 29967-5 ####[facility] HOSPITALTOWGRAND ITASCA CLINIC AND HOSPITALA [id number] [address] LABORATORYCLIA [id number] [place] [address] [place] Lymphocytes/100 WBC (Bld) 34.0 % Normal [facility] Comment on above: Order Comment: Speci men Type: BLOOD SPECIMENOrdering Facility: [facility] Address: [address] [place] [address] Performed By: #### 1 4196-0 ####[facility] LABORATORYCLIA [id number] [address] [place]#### 54648-2 ####[facility] HOSPITALNCLIA [id number] [address] LABORATORYCLIA [id number] [place] [address] [place] MCH (RBC) [Entitic mass] 35.6 pg High 26.0-34.0 [facility] Comment on above: Order Comment: Speci men Type: BLOOD SPECIMENOrdering Facility: [facility] Address: [address] [place] [address] Performed By: #### 1 4196-0 ####[facility] LABORATORYCLIA [id number] [address] [place]#### 00710-0 ####[facility] HOSPITALLIA [id number] [address] LABORATORYCLIA [id number] [place] [address] [place] MCHC (RBC) [Mass/Vol] 33.7 g/dL Normal 30.5-36.0 [facility] Comment on above: Order Comment: Speci men Type: BLOOD SPECIMENOrdering Facility: [facility] Address: [address] [place] [address] Performed By: #### 1 4196-0 ####[facility] LABORATORYCLIA [id number] [address]#### 72456-7 ####[facility] [id number] [address] LABORATORYIA [id number] [place] [address] [place] [facility] MCV (RBC) [Entitic vol] 105.4 fL High 80.0-100.0 [facility] Comment on above: Order Comment: Speci men Type: BLOOD SPECIMENOrdering Facility: [facility] Address: [address] [place] [address] Performed By: #### 1 4196-0 ####[facility] LABORATORYCLIA [id number] [address] OF [facility]#### 30675-6 ####[facility] [id number] [address] LABORATORYCLIA [id number] [place] [address] [place] Monocytes (Bld) [#/Vol] 0.04 10*3/uL Normal <0.87 [facility] Comment on above: Order Comment: Speci men Type: BLOOD SPECIMENOrdering Facility: [facility] Address: [facility] [place] [address] Performed By: #### 1 4196-0 ####[facility] LABORATORYCLIA [id number] [place] [address] [place]#### 12102-4 ####[facility] YADI MILLTOWNCLIA [id number] [address] LABORATORYCLIA [id number] [place] [address] [place] Monocytes/100 WBC (Bld) 2.0 % Normal [facility] Comment on above: Order Comment: Speci men Type: BLOOD SPECIMENOrdering Facility: [facility] Address: [facility] [place] [address] Performed By: #### 1 4196-0 ####[facility] ROS[facility]LEL[facility] LABORATORYCLIA [id number] [place] [address] [facility] [place]#### 37191-3 ####[facility] JARONTOWNCLIA [id number] [address] LABORATORYCLIA [id number] [place] [address] [place] Neutrophils (Bld) [#/Vol] 1.23 10*3/uL Low 1.45-7.50 [facility] Comment on above: Order Comment: Speci men Type: BLOOD SPECIMENOrdering Facility: [facility] Address: [facility] [place] [address] Performed By: #### 1 4196-0 ####[facility] ROS[facility]LEL[facility] LABORATORYCLIA [id number] [place] [address] [place]#### 74952-8 ####[facility] MILLTOWNCLIA [id number] [address] LABORATORYCLIA [id number] [place] [address] [place] Neutrophils/100 WBC (Bld) 63.0 % Normal [facility] Comment on above: Order Comment: Speci men Type: BLOOD SPECIMENOrdering Facility: [facility] Address: [address] [place] [address] Performed By: #### 1 4196-0 ####[facility] LABORATORYCLIA [id number] [place] [address] [place]#### 15735-8 ####[facility]ENTERA [id number] [address] LABORATORYCLIA [id number] [place] [address] [place] Nucleated RBC (Bld) [#/Vol] 10*3/uL Normal <0.01 [facility] Comment on above: Order Comment: Speci men Type: BLOOD SPECIMENOrdering Facility: [facility] Address: [address] [place] [address] Performed By: #### 1 4196-0 ####[facility] LABORATORYCLIA [id number] [place] [address] [place]#### 02762-9 ####[facility]OSPITALLIA [id number] [address] LABORATORYCLIA [id number] [place] [address] [place] Nucleated RBC/100 WBC (Bld) [Ratio] 0.0 /100 WBC Normal [facility] Comment on above: Order Comment: Speci men Type: BLOOD SPECIMENOrdering Facility: [facility] Address: [address] [place] [address] Performed By: #### 1 4196-0 ####[facility] LABORATORYCLIA [id number] [address] [place]#### 39930-6 ####[facility] HOSPITALNCLIA [id number] [address] LABORATORYCLIA [id number] [place] [address] [place] [facility] Platelet mean volume (Bld) [Entitic vol] 10.0 fL Normal 9.0-12.7 [facility] Comment on above: Order Comment: Speci men Type: BLOOD SPECIMENOrdering Facility: [facility] Address: [address] [place] [address] Performed By: #### 1 4196-0 ####[facility] ROSWELLELIS [facility] LABORATORYCLIA [id number] [address]#### 54104-8 ####[facility] [id number] [address] LABORATORYIA [id number] [address] [facility] Platelets (Bld) [#/Vol] 95 10*3/uL Low 150-400 [facility] Comment on above: Order Comment: Speci men Type: BLOOD SPECIMENOrdering Facility: [facility] Address: [address] [place] [address] Result Comment: No c lot detected. Performed By: #### 1 4196-0 ####[facility] ROSWELLELIS [facility] LABORATORYCLIA [id number] [address]#### 74827-5 ####[facility]OSPITALLIA [id number] [address] LABORATORYCLIA [id number] [place] [address] [place] Platelets Estimate (Bld) [#/Vol] Decreased Normal [facility] Comment on above: Order Comment: Speci men Type: BLOOD SPECIMENOrdering Facility: [facility] Address: [address] [place] [address] Performed By: #### 1 4196-0 ####[facility] LABORATORYCLIA [id number] [place] [address] [place]#### 25106-4 ####[facility] MILLTOWNCLIA [id number] [address] LABORATORYIA [id number] [place] [address] [place] [facility] RBC (Bld) [#/Vol] 2.39 10*6/uL Low 3.90-5.20 [facility] Comment on above: Order Comment: Speci men Type: BLOOD SPECIMENOrdering Facility: [facility] Address: [address] [place] [address] Performed By: #### 1 4196-0 ####[facility] LABORATORYIA [id number] [address]#### [id number] ####[facility]ENTERWILLIA [id number] [address] LABORATORYCLIA [id number] [place] [address] [place] [facility] RED CELL MORPH Reviewed: see result s of individual morphologies [facility] Comment on above: Order Comment: Speci men Type: BLOOD SPECIMENOrdering Facility: [facility] Address: [address] [place] [address] Performed By: #### 1 4196-0 ####[facility] LABORATORYCLIA [id number] [place] [address] [place]#### 78073-8 ####[facility]ITALTOWILLIA [id number] [address] LABORATORYCLIA [id number] [place] [address] [place] WBC (Bld) [#/Vol] 1.96 10*3/uL Low 3.70-11.00 [facility] Comment on above: Order Comment: Speci men Type: BLOOD SPECIMENOrdering Facility: [facility] Address: [address] [place] [address] Performed By: #### 1 4196-0 ####[facility] LABORATORYCLIA [id number] [place] [address] [place]#### 46852-3 ####[facility] [facility] [id number] [address] LABORATORYCLIA [id number] [place] [address] [place] COPPER BLOODon 04-17-2025 Copper [Mass/Vol] 174 ug/dL High 80-155 [facility] Comment on above: Order Comment: Speci men Type: BLOOD SPECIMENOrdering Facility: [facility] Address: [address] [place] [address] Result Comment: This test was developed, and its performance characteristics determined by the [facility] Department of Pathology and Laboratory Medicine. It has not been cleared or approved by the FDA. The [facility] Department of Pathology and Laboratory Medicine is regulated under CLIA as qualified to perform high-complexity testing. This test is used for clinical purposes. It should not be regarded as investigational or for research. Performed By: #### C OPPER ####[facility] LABCLIA [id number] [place] [address] [place] CRP SerPl-mCncon 04-17-2025 CRP [Mass/Vol] 3.2 mg/dL High <0.9 [facility] Comment on above: Order Comment: Speci men Type: BLOOD SPECIMENOrdering Facility: [facility] Address: [address] [place] [address] Performed By: #### 3 016-3, 1987- ####[facility] LABCLIA [id number] [place] [address] [facility] Retics #on 04-17-2025 Reticulocytes (Bld) [#/Vol] Normal [facility] Comment on above: Order Comment: Speci men Type: BLOOD SPECIMENOrdering Facility: [facility] Address: [address] [place] [address] Result Comment: Abso lute Value Below Analyzer Linearity. Performed By: #### 1 4196-0 ####[facility] LABORATORYCLIA [id number] [address]#### [address]-6 ####[facility] [id number] [address] LABORATORYIA [id number] [address] Reticulocytes (Bld) [#/Vol]o n 04-17-2025 Reticulocytes/100 RBC (Bld) % Low 0.4-2.0 [facility] Comment on above: Order Comment: Speci men Type: BLOOD SPECIMENOrdering Facility: [facility] Address: [address] [place] [address] Performed By: #### 1 4196-0 ####[facility], ROSWELLELIS [facility] LABORATORYIA [id number] [address]#### 69[address]-0 ####[facility] [id number] [address] LABORATORYIA [id number] [address] [place] TSH SerPl-aCncon 04-17-2025 TSH Qn 3.470 m[IU]/L Normal 0.270-4.200 [facility] Comment on above: Order Comment: Speci men Type: BLOOD SPECIMENOrdering Facility: [facility] Address: [address] [place] [address] Performed By: #### 3 016-3, 1987-11 ####[facility] LABCLIA [id number] [facility] [id number] [place] [address] [place] CNPNon 04-12-2025 CNPN Normal [facility] BRCon 04-11-2025 RC Normal [facility] Comment on above: Result Comment: [id number] AP RC TRANSFUSED 04/12/25 1031 Performed By: #### B , [facility] #### [facility] [address] [place], [place], [address] CBC W Auto Differential pane l (Bld)on 04-11-2025 Basophils (Bld) [#/Vol] 0.03 10*3/uL Normal <0.11 [facility] Comment on above: Order Comment: Speci men Type: BLOOD SPECIMENOrdering Facility: [facility] Address: [address] [place] [address] Performed By: #### 5 7021-8 ####[facility] [id number] [place] [address] [place] Basophils/100 WBC (Bld) 0.5 % Normal [facility] Comment on above: Order Comment: Speci men Type: BLOOD SPECIMENOrdering Facility: [facility] Address: [address] [place] [address] Performed By: #### 5 7021-8 ####[facility] [id number] [place] [address] [place] Differential cell count method Nom (Bld) Auto Normal [facility] Comment on above: Order Comment: Speci men Type: BLOOD SPECIMENOrdering Facility: [facility] Address: [address] [place] [address] Performed By: #### 5 7021-8 ####[facility] MILLWNCLIA [id number] [place] [address] [place] Eosinophils (Bld) [#/Vol] 0.10 10*3/uL Normal <0.46 [facility] Comment on above: Order Comment: Speci men Type: BLOOD SPECIMENOrdering Facility: [facility] Address: [address] [place] [address] Performed By: #### 5 7021-8 ####[facility] CENTERWILLIA [id number] [place] [address] [place] Eosinophils/100 WBC (Bld) 1.6 % Normal [facility] Comment on above: Order Comment: Speci men Type: BLOOD SPECIMENOrdering Facility: [facility] Address: [address] [place] [address] Performed By: #### 5 7021-8 ####[facility]ALL[facility] [id number] [address] [place] Erythrocyte distribution width (RBC) [Ratio] 14.7 % Normal 11.5-15.0 [facility] Comment on above: Order Comment: Speci men Type: BLOOD SPECIMENOrdering Facility: [facility] Address: [address] [place] [address] Performed By: #### 5 7021-8 ####[facility]PITALLIA [id number] [place] [address] [place] Hematocrit (Bld) [Volume fraction] 21.7 % Low 36.0-46.0 [facility] Comment on above: Order Comment: Speci men Type: BLOOD SPECIMENOrdering Facility: [facility] Address: [address] [place] [address] Performed By: #### 5 7021-8 ####[facility]ITALNCLIA [id number] [place] [address] [place] Hemoglobin (Bld) [Mass/Vol] 7.1 g/dL Low 11.5-15.5 [facility] Comment on above: Order Comment: Speci men Type: BLOOD SPECIMENOrdering Facility: [facility] Address: [address] [place] [address] Performed By: #### 5 7021-8 ####[facility] [id number] [place] [address] [place] Immature granulocytes (Bld) [#/Vol] 0.03 10*3/uL Normal <0.10 [facility] Comment on above: Order Comment: Speci men Type: BLOOD SPECIMENOrdering Facility: [facility] Address: [address] [place] [address] Performed By: #### 5 7021-8 ####[facility] [id number] [address] [place] Immature granulocytes/100 WBC (Bld) 0.5 % Normal [facility] Comment on above: Order Comment: Speci men Type: BLOOD SPECIMENOrdering Facility: [facility] Address: [address] [place] [address] Performed By: #### 5 7021-8 ####[facility] [id number] [place] [address] [place] Lymphocytes (Bld) [#/Vol] 0.68 10*3/uL Low 1.00-4.00 [facility] Comment on above: Order Comment: Speci men Type: BLOOD SPECIMENOrdering Facility: [facility] Address: [address] [place] [address] Performed By: #### 5 7021-8 ####[facility]PITALNCLIA [id number] [place] [address] [place] Lymphocytes/100 WBC (Bld) 10.9 % Normal [facility] Comment on above: Order Comment: Speci men Type: BLOOD SPECIMENOrdering Facility: [facility] Address: [address] [place] [address] Performed By: #### 5 7021-8 ####[facility] JARONDIMPLE [id number] [place] [address] [place] MCH (RBC) [Entitic mass] 36.2 pg High 26.0-34.0 [facility] Comment on above: Order Comment: Speci men Type: BLOOD SPECIMENOrdering Facility: [facility] Address: [address] [place] [address] Performed By: #### 5 7021-8 ####[facility] HOSPITALNCJASE [id number] [place] [address] [place] MCHC (RBC) [Mass/Vol] 32.7 g/dL Normal 30.5-36.0 [facility] Comment on above: Order Comment: Speci men Type: BLOOD SPECIMENOrdering Facility: [facility] Address: [address] [place] [address] Performed By: #### 5 7021-8 ####[facility] HOSPITALBANGA [id number] [place] [address] [place] MCV (RBC) [Entitic vol] 110.7 fL High 80.0-100.0 [facility] Comment on above: Order Comment: Speci men Type: BLOOD SPECIMENOrdering Facility: [facility] Address: [address] [place] [address] Performed By: #### 5 7021-8 ####[facility] [id number] [place] [address] [place] Monocytes (Bld) [#/Vol] 0.45 10*3/uL Normal <0.87 [facility] Comment on above: Order Comment: Speci men Type: BLOOD SPECIMENOrdering Facility: [facility] Address: [address] [place] [address] Performed By: #### 5 7021-8 ####[facility] MILLWNCLIA [id number] [place] [address] [place] Monocytes/100 WBC (Bld) 7.2 % Normal [facility] Comment on above: Order Comment: Speci men Type: BLOOD SPECIMENOrdering Facility: [facility] Address: [address] [place] [address] Performed By: #### 5 7021-8 ####[facility] HOSPITALNCLIA [id number] [place] [address] [place] Neutrophils (Bld) [#/Vol] 4.95 10*3/uL Normal 1.45-7.50 [facility] Comment on above: Order Comment: Speci men Type: BLOOD SPECIMENOrdering Facility: [facility] Address: [address] [place] [address] Performed By: #### 5 7021-8 ####[facility]ENTERA [id number] [place] [address] [place] Neutrophils/100 WBC (Bld) 79.3 % Normal [facility] Comment on above: Order Comment: Speci men Type: BLOOD SPECIMENOrdering Facility: [facility] Address: [address] [place] [address] Performed By: #### 5 7021-8 ####[facility]PITALLIA [id number] [place] [address] [place] Nucleated RBC (Bld) [#/Vol] 10*3/uL Normal <0.01 [facility] Comment on above: Order Comment: Speci men Type: BLOOD SPECIMENOrdering Facility: [facility] Address: [address] [place] [address] Performed By: #### 5 7021-8 ####[facility] HOSPITALNCLIA [id number] [place] [address] [place] Nucleated RBC/100 WBC (Bld) [Ratio] 0.0 /100 WBC Normal [facility] Comment on above: Order Comment: Speci men Type: BLOOD SPECIMENOrdering Facility: [facility] Address: [address] [place] [address] Performed By: #### 5 7021-8 ####[facility] HOSPITALNCLIA [id number] [place] [address] [place] Platelet mean volume (Bld) [Entitic vol] 9.8 fL Normal 9.0-12.7 [facility] Comment on above: Order Comment: Speci men Type: BLOOD SPECIMENOrdering Facility: [facility] Address: [address] [place] [address] Performed By: #### 5 7021-8 ####[facility] HOSPITALNCJORD[facility] [id number] [place] [address] [place] Platelets (Bld) [#/Vol] 224 10*3/uL Normal 150-400 [facility] Comment on above: Order Comment: Speci men Type: BLOOD SPECIMENOrdering Facility: [facility] Address: [address] [place] [address] Performed By: #### 5 7021-8 ####[facility] HOSPITALNCLIA [id number] [place] [address] [place] RBC (Bld) [#/Vol] 1.96 10*6/uL Low 3.90-5.20 [facility] Comment on above: Order Comment: Speci men Type: BLOOD SPECIMENOrdering Facility: [facility] Address: [address] [place] [address] Performed By: #### 5 7021-8 ####[facility] HOSPITALNCLIA [id number] [place] [address] [place] WBC (Bld) [#/Vol] 6.24 10*3/uL Normal 3.70-11.00 [facility] Comment on above: Order Comment: Speci men Type: BLOOD SPECIMENOrdering Facility: [facility] Address: [address] [place] [address] Performed By: #### 5 7021-8 ####[facility] HOSPITALNCJORD[facility] [id number] [place] [address] [place] CNPNon 04-11-2025 CNPN Normal [facility] Cancer Ag125 SerPl-aCncon Cancer Ag 125 Qn 69 [arb'U]/mL High <39 [facility] Comment on above: Order Comment: Speci betty Type: BLOOD SPECIMENOrdering Facility: [facility] Address: [address] [place] [address] Result Comment: CA 1 25 test methodology [...] (CA 125 II) [package insert V 1.0 Swazi]. [facility], [place], [place] (April 2015) Performed By: #### 1 0334-1 ####[facility] LABCLIA [id number] [place] [address] [place] Comprehensive metabolic 2000 panelon 04-11-2025 Albumin [Mass/Vol] 3.7 g/dL Low 3.9-4.9 [facility] Comment on above: Order Comment: Speci men Type: BLOOD SPECIMENOrdering Facility: [facility] Address: [address] [place] [address] Performed By: #### 1 9123-9, 08648-3 ####[facility] HOSPITALNCLIA [id number] [place] [address] [place] ALP [Catalytic activity/Vol] 140 U/L High 34-123 [facility] Comment on above: Order Comment: Speci men Type: BLOOD SPECIMENOrdering Facility: [facility] Address: [address] [place] [address] Performed By: #### 1 9123-9, 67683-8 ####[facility] HOSPITALNCLIA [id number] [place] [address] [place] ALT [Catalytic activity/Vol] 16 U/L Normal 7-38 [facility] Comment on above: Order Comment: Speci men Type: BLOOD SPECIMENOrdering Facility: [facility] Address: [address] [place] [address] Performed By: #### 1 9123-9, 40550-7 ####[facility] HOSPITALNCLIA [id number] [place] [address] [place] Anion gap [Moles/Vol] 13 mmol/L Normal 8-15 [facility] Comment on above: Order Comment: Speci men Type: BLOOD SPECIMENOrdering Facility: [facility] Address: [address] [place] [address] Performed By: #### 1 9123-9, 58362-2 ####[facility] HOSPITALNCLIA [id number] [place] [address] [place] AST [Catalytic activity/Vol] 22 U/L Normal 13-35 [facility] Comment on above: Order Comment: Speci men Type: BLOOD SPECIMENOrdering Facility: [facility] Address: [address] [place] [address] Performed By: #### 1 9123-9, 85958-6 ####[facility]ENTERA [id number] [place] [address] [place] Bilirubin [Mass/Vol] 0.3 mg/dL Normal 0.2-1.3 [facility] Comment on above: Order Comment: Speci men Type: BLOOD SPECIMENOrdering Facility: [facility] Address: [address] [place], [place] [address] Performed By: #### 1 9123-9, 47378-3 ####[facility] YADI ROLANDLIA [id number] [place] [address] [place] Calcium [Mass/Vol] 9.6 mg/dL Normal 8.5-10.2 [facility] Comment on above: Order Comment: Speci men Type: BLOOD SPECIMENOrdering Facility: [facility] Address: [address] [place], [place] [address] Performed By: #### 1 9123-9, 52506-5 ####[facility] JARONDIMPLE [id number] [place] [address] [place] Chloride [Moles/Vol] 101 mmol/L Normal 98-107 [facility] Comment on above: Order Comment: Speci men Type: BLOOD SPECIMENOrdering Facility: [facility] Address: [address] [place] [address] Performed By: #### 1 9123-9, 09354-3 ####[facility] JARONWALNUT SPRINGSYANIRA [id number] [place] [address] [place] CO2 [Moles/Vol] 25 mmol/L Normal 22-30 [facility] Comment on above: Order Comment: Speci men Type: BLOOD SPECIMENOrdering Facility: [facility] Address: [address] [place] [address] Performed By: #### 1 9123-9, 03291-8 ####[facility] HOSPITALNCLIA [id number] [place] [address] [place] Creatinine [Mass/Vol] 1.19 mg/dL High 0.58-0.96 [facility] Comment on above: Order Comment: Speci men Type: BLOOD SPECIMENOrdering Facility: [facility] Address: [address] [place] [address] Performed By: #### 1 9123-9, 79857-7 ####[facility] MILLTOWNCLIA [id number] [place] [address] [place] eGFRcr SerPlBld CKD-EPI 2020 48 mL/min/1.73m??? Low >=60 [facility] Comment on above: Order Comment: Riaz hernández Type: BLOOD SPECIMENOrdering Facility: [facility] Address: [address] [place] [address] Result Comment: Fernanda mated Glomerular Filtration Rate [...] actual GFR. Performed By: #### 1 9123-9, 70681-0 ####[facility]OSPITALNCLIA [id number] [place] [address] [place] Glucose [Mass/Vol] 124 mg/dL High 74-99 [facility] Comment on above: Order Comment: Riaz hernández Type: BLOOD SPECIMENOrdering Facility: [facility] Address: [address] [place] [address] Result Comment: The [place] Diabetes Association (ADA) provides guidance for cutoff [...] Standards of Medical Care in Diabetes 2016, [place] [employer]. Diabetes Care. 2016.39(Suppl 1). Performed By: #### 1 9123-9, 30007-6 ####[facility] CENTERWNCLIA [id number] [place] [address] [place] Potassium [Moles/Vol] 4.3 mmol/L Normal 3.7-5.1 [facility] Comment on above: Order Comment: Speci men Type: BLOOD SPECIMENOrdering Facility: [facility] Address: [address] [place] [address] Performed By: #### 1 9123-9, ####[facility] MILLWNCLIA [id number] [place] [address] [place] Protein [Mass/Vol] 5.9 g/dL Low 6.3-8.0 [facility] Comment on above: Order Comment: Speci men Type: BLOOD SPECIMENOrdering Facility: [facility] Address: [address] [place] [address] Performed By: #### 1 9123-9, ####[facility]OSPITALLIA [id number] [place] [address] [place] Sodium [Moles/Vol] 139 mmol/L Normal 136-144 [facility] Comment on above: Order Comment: Speci men Type: BLOOD SPECIMENOrdering Facility: [facility] Address: [address] [place] [address] Performed By: #### 1 9123-9, 77767-9 ####[facility] MILLWALNUT SPRINGSBANGLIA [id number] [place] [address] [place] Urea nitrogen [Mass/Vol] 35 mg/dL High 7-21 [facility] Comment on above: Order Comment: Speci men Type: BLOOD SPECIMENOrdering Facility: [facility] Address: [address] [place] [address] Performed By: #### 1 9123-9, 83966-9 ####[facility] MILLWALNUT SPRINGSNCLIA [id number] [place] [address] [place] Magnesium SerPl-mCncon 04-11 Magnesium [Mass/Vol] 1.7 mg/dL Normal 1.7-2.3 [facility] Comment on above: Order Comment: Speci men Type: BLOOD SPECIMENOrdering Facility: [facility] Address: [address] [place] [address] Performed By: #### 1 9123-9, 04315-5 ####[facility] [id number] [place] [address] [facility] Type AND Screenon 04-11-2025 ABO and Rh group Nom (Bld) Blood group A Rh(D) positive Normal [facility] Comment on above: Order Comment: PRETR ANSFUSION HGB = 7.1 HCT = 21.7 PERFORMED AT [facility] N 04/12/25 N Y A Performed By: #### B , [facility] #### [facility] [address] [facility] [place], [place], [id number] CBC W Auto Differential pane l (Bld)on 04-03-2025 Basophils (Bld) [#/Vol] [facility] Basophils/100 WBC (Bld) 0.4 % [facility] Differential cell count method Nom (Bld) Auto [facility] Eosinophils (Bld) [#/Vol] 0.09 10*3/uL [facility] Eosinophils/100 WBC (Bld) 1.7 % [facility] Erythrocyte distribution width (RBC) [Ratio] 14.6 % 11.5 - 15.0 % [facility] Hematocrit (Bld) [Volume fraction] 25.4 % Low 36.0 - 46.0 % [facility] Hemoglobin (Bld) [Mass/Vol] 8.3 g/dL Low 11.5 - 15.5 g/dL [facility] Immature granulocytes (Bld) [#/Vol] 0.03 10*3/uL [facility] Immature granulocytes/100 WBC (Bld) 0.6 % [facility] Interpretation and review of laboratory results Abnormal [facility] Lymphocytes (Bld) [#/Vol] 0.68 10*3/uL Low [facility] Lymphocytes/100 WBC (Bld) 12.7 % [facility] MCH (RBC) [Entitic mass] 36.9 pg High 26.0 - 34.0 pg [facility] MCHC (RBC) [Mass/Vol] 32.7 g/dL 30.5 - 36.0 g/dL [facility] MCV (RBC) [Entitic vol] 112.9 fL High 80.0 - 100.0 fL [facility] Monocytes (Bld) [#/Vol] 0.52 10*3/uL [facility] Monocytes/100 WBC (Bld) 9.7 % [facility] Neutrophils (Bld) [#/Vol] 4.01 10*3/uL [facility] Neutrophils/100 WBC (Bld) 74.9 % [facility] Nucleated RBC (Bld) [#/Vol] [facility] Nucleated RBC/100 WBC (Bld) [Ratio] 0.0 % /100 WBC [facility] Platelet mean volume (Bld) [Entitic vol] 9.7 fL 9.0 - 12.7 fL [facility] Platelets (Bld) [#/Vol] 214 10*3/uL [facility] RBC (Bld) [#/Vol] 2.25 10*6/uL Low 3.90 - 5.2 0 m/uL [facility] WBC (Bld) [#/Vol] 5.35 10*3/uL [facility] Basophils (Bld) [#/Vol] 10*3/uL Normal <0.11 [facility] Comment on above: Order Comment: Speci men Type: BLOOD SPECIMENOrdering Facility: [facility] Address: [address] [place] [address] Performed By: #### 5 7021-8 ####[facility] [id number] [address] [facility] Basophils/100 WBC (Bld) 0.4 % Normal [facility] Comment on above: Order Comment: Speci men Type: BLOOD SPECIMENOrdering Facility: [facility] Address: [address] [place] [address] Performed By: #### 5 7021-8 ####[facility] [id number] [place] [address] [place] Differential cell count method Nom (Bld) Auto Normal [facility] Comment on above: Order Comment: Speci men Type: BLOOD SPECIMENOrdering Facility: [facility] Address: [address] [place] [address] Performed By: #### 5 7021-8 ####[facility] [id number] [place] [address] [place] Eosinophils (Bld) [#/Vol] 0.09 10*3/uL Normal <0.46 [facility] Comment on above: Order Comment: Speci men Type: BLOOD SPECIMENOrdering Facility: [facility] Address: [address] [place] [address] Performed By: #### 5 7021-8 ####[facility]OSPITALNCJORD[facility] [id number] [place] [address] [place] Eosinophils/100 WBC (Bld) 1.7 % Normal [facility] Comment on above: Order Comment: Speci men Type: BLOOD SPECIMENOrdering Facility: [facility] Address: [address] [place] [address] Performed By: #### 5 7021-8 ####[facility] [id number] [place] [address] [place] Erythrocyte distribution width (RBC) [Ratio] 14.6 % Normal 11.5-15.0 [facility] Comment on above: Order Comment: Speci men Type: BLOOD SPECIMENOrdering Facility: [facility] Address: [address] [place] [address] Performed By: #### 5 7021-8 ####[facility] [id number] [place] [address] [place] Hematocrit (Bld) [Volume fraction] 25.4 % Low 36.0-46.0 [facility] Comment on above: Order Comment: Speci men Type: BLOOD SPECIMENOrdering Facility: [facility] Address: [address] [place] [address] Performed By: #### 5 7021-8 ####[facility] YADI JARONWALNUT SPRINGSNCNICOLETTEA [id number] [place] [address] [place] Hemoglobin (Bld) [Mass/Vol] 8.3 g/dL Low 11.5-15.5 [facility] Comment on above: Order Comment: Speci men Type: BLOOD SPECIMENOrdering Facility: [facility] Address: [address] [place] [address] Performed By: #### 5 7021-8 ####[facility]OSPITALNCA [id number] [place] [address] [place] Immature granulocytes (Bld) [#/Vol] 0.03 10*3/uL Normal <0.10 [facility] Comment on above: Order Comment: Speci men Type: BLOOD SPECIMENOrdering Facility: [facility] Address: [address] [place] [address] Performed By: #### 5 7021-8 ####[facility]PITALNCLIA [id number] [place] [address] [place] Immature granulocytes/100 WBC (Bld) 0.6 % Normal [facility] Comment on above: Order Comment: Speci men Type: BLOOD SPECIMENOrdering Facility: [facility] Address: [address] [place] [address] Performed By: #### 5 7021-8 ####[facility]ITALNCLIA [id number] [place] [address] [place] Lymphocytes (Bld) [#/Vol] 0.68 10*3/uL Low 1.00-4.00 [facility] Comment on above: Order Comment: Speci men Type: BLOOD SPECIMENOrdering Facility: [facility] Address: [address] [place] [address] Performed By: #### 5 7021-8 ####[facility]ITALNCLIA [id number] [place] [address] [place] Lymphocytes/100 WBC (Bld) 12.7 % Normal [facility] Comment on above: Order Comment: Speci men Type: BLOOD SPECIMENOrdering Facility: [facility] Address: [address] [place] [address] Performed By: #### 5 7021-8 ####[facility]PITALNCLIA [id number] [place] [address] [place] MCH (RBC) [Entitic mass] 36.9 pg High 26.0-34.0 [facility] Comment on above: Order Comment: Speci men Type: BLOOD SPECIMENOrdering Facility: [facility] Address: [address] [place] [address] Performed By: #### 5 7021-8 ####[facility]ENTERA [id number] [place] [address] [place] MCHC (RBC) [Mass/Vol] 32.7 g/dL Normal 30.5-36.0 [facility] Comment on above: Order Comment: Speci men Type: BLOOD SPECIMENOrdering Facility: [facility] Address: [address] [place] [address] Performed By: #### 5 7021-8 ####[facility]OSPITALLIA [id number] [place] [address] [place] MCV (RBC) [Entitic vol] 112.9 fL High 80.0-100.0 [facility] Comment on above: Order Comment: Speci men Type: BLOOD SPECIMENOrdering Facility: [facility] Address: [address] [place] [address] Performed By: #### 5 7021-8 ####[facility] [id number] [place] [address] [place] Monocytes (Bld) [#/Vol] 0.52 10*3/uL Normal <0.87 [facility] Comment on above: Order Comment: Speci men Type: BLOOD SPECIMENOrdering Facility: [facility] Address: [address] [place] [address] Performed By: #### 5 7021-8 ####[facility] CENTERWNCLIA [id number] [place] [address] [place] Monocytes/100 WBC (Bld) 9.7 % Normal [facility] Comment on above: Order Comment: Speci men Type: BLOOD SPECIMENOrdering Facility: [facility] Address: [address] [place] [address] Performed By: #### 5 7021-8 ####[facility]OSPITALLIA [id number] [place] [address] [place] Neutrophils (Bld) [#/Vol] 4.01 10*3/uL Normal 1.45-7.50 [facility] Comment on above: Order Comment: Speci men Type: BLOOD SPECIMENOrdering Facility: [facility] Address: [address] [place] [address] Performed By: #### 5 7021-8 ####[facility] CENTERWNCLIA [id number] [place] [address] [place] Neutrophils/100 WBC (Bld) 74.9 % Normal [facility] Comment on above: Order Comment: Speci men Type: BLOOD SPECIMENOrdering Facility: [facility] Address: [address] [place] [address] Performed By: #### 5 7021-8 ####[facility]PITALNCLIA [id number] [place] [address] [place] Nucleated RBC (Bld) [#/Vol] 10*3/uL Normal <0.01 [facility] Comment on above: Order Comment: Speci men Type: BLOOD SPECIMENOrdering Facility: [facility] Address: [address] [place] [address] Performed By: #### 5 7021-8 ####[facility] JARONSofyaNCJASE [id number] [place] [address] [place] Nucleated RBC/100 WBC (Bld) [Ratio] 0.0 /100 WBC Normal [facility] Comment on above: Order Comment: Speci men Type: BLOOD SPECIMENOrdering Facility: [facility] Address: [address] [place] [address] Performed By: #### 5 7021-8 ####[facility] HOSPITALNCLIDarryl [id number] [place] [address] [place] Platelet mean volume (Bld) [Entitic vol] 9.7 fL Normal 9.0-12.7 [facility] Comment on above: Order Comment: Speci men Type: BLOOD SPECIMENOrdering Facility: [facility] Address: [address] [place] [address] Performed By: #### 5 7021-8 ####[facility]PITALNCLIA [id number] [place] [address] [place] Platelets (Bld) [#/Vol] 214 10*3/uL Normal 150-400 [facility] Comment on above: Order Comment: Speci men Type: BLOOD SPECIMENOrdering Facility: [facility] Address: [address] [place] [address] Performed By: #### 5 7021-8 ####[facility]PITALNCLIA [id number] [place] [address] [place] RBC (Bld) [#/Vol] 2.25 10*6/uL Low 3.90-5.20 [facility] Comment on above: Order Comment: Speci men Type: BLOOD SPECIMENOrdering Facility: [facility] Address: [address] [id number] Performed By: #### 5 7021-8 ####[facility] HOSPITALNCNICOLETTEA [id number] [place] [address] [place] WBC (Bld) [#/Vol] 5.35 10*3/uL Normal 3.70-11.00 [facility] Comment on above: Order Comment: Speci men Type: BLOOD SPECIMENOrdering Facility: [facility] Address: [address] [place] [address] Performed By: #### 5 7021-8 ####[facility] HOSPITALNCA [id number] [place] [address] [place] CNPNon 04-03-2025 CNPN Normal [facility] CNPNon 03-20-2025 CNPN Normal [facility] CBC W Auto Differential pane l (Bld)on 03-18-2025 Basophils (Bld) [#/Vol] [facility] Basophils/100 WBC (Bld) 0.2 % [facility] Differential cell count method Nom (Bld) Auto [facility] Eosinophils (Bld) [#/Vol] 0.08 10*3/uL [facility] Eosinophils/100 WBC (Bld) 1.8 % [facility] Erythrocyte distribution width (RBC) [Ratio] 15.7 % High 11.5 - 15.0 % [facility] Hematocrit (Bld) [Volume fraction] 25.1 % Low 36.0 - 46.0 % [facility] Hemoglobin (Bld) [Mass/Vol] 8.5 g/dL Low 11.5 - 15.5 g/dL [facility] Immature granulocytes (Bld) [#/Vol] 0.03 10*3/uL NINF [facility] Immature granulocytes/100 WBC (Bld) 0.7 % [facility] Interpretation and review of laboratory results Abnormal [facility] Lymphocytes (Bld) [#/Vol] 0.69 10*3/uL Low [facility] Lymphocytes/100 WBC (Bld) 15.2 % [facility] MCH (RBC) [Entitic mass] 39.0 pg High 26.0 - 34.0 pg [facility] MCHC (RBC) [Mass/Vol] 33.9 g/dL 30.5 - 36.0 g/dL [facility] MCV (RBC) [Entitic vol] 115.1 fL High 80.0 - 100.0 fL [facility] Monocytes (Bld) [#/Vol] 0.52 10*3/uL [facility] Monocytes/100 WBC (Bld) 11.4 % [facility] Neutrophils (Bld) [#/Vol] 3.22 10*3/uL [facility] Neutrophils/100 WBC (Bld) 70.7 % [facility] Nucleated RBC (Bld) [#/Vol] NINF [facility] Nucleated RBC/100 WBC (Bld) [Ratio] 0.0 % /100 WBC [facility] Platelet mean volume (Bld) [Entitic vol] 10.7 fL 9.0 - 12.7 fL [facility] Platelets (Bld) [#/Vol] 177 10*3/uL [facility] RBC (Bld) [#/Vol] 2.18 10*6/uL Low 3.90 - 5.2 0 m/uL [facility] WBC (Bld) [#/Vol] 4.55 10*3/uL [facility] Basophils (Bld) [#/Vol] 10*3/uL Normal <0.11 [facility] Comment on above: Order Comment: Speci men Type: BLOOD SPECIMENOrdering Facility: [facility] Address: [address] [place] [address] Performed By: #### 5 7021-8 ####[facility] [id number] [place] [address] [place] Basophils/100 WBC (Bld) 0.2 % Normal [facility] Comment on above: Order Comment: Speci men Type: BLOOD SPECIMENOrdering Facility: [facility] Address: [address] [place] [address] Performed By: #### 5 7021-8 ####[facility] [id number] [place] [address] [place] Differential cell count method Nom (Bld) Auto Normal [facility] Comment on above: Order Comment: Speci men Type: BLOOD SPECIMENOrdering Facility: [facility] Address: [address] [place] [address] Performed By: #### 5 7021-8 ####[facility] [id number] [place] [address] [place] Eosinophils (Bld) [#/Vol] 0.08 10*3/uL Normal <0.46 [facility] Comment on above: Order Comment: Speci men Type: BLOOD SPECIMENOrdering Facility: [facility] Address: [address] [place] [address] Performed By: #### 5 7021-8 ####[facility] [id number] [place] [address] [place] Eosinophils/100 WBC (Bld) 1.8 % Normal [facility] Comment on above: Order Comment: Speci men Type: BLOOD SPECIMENOrdering Facility: [facility] Address: [address] [place] [address] Performed By: #### 5 7021-8 ####[facility] [id number] [place] [address] [place] Erythrocyte distribution width (RBC) [Ratio] 15.7 % High 11.5-15.0 [facility] Comment on above: Order Comment: Speci men Type: BLOOD SPECIMENOrdering Facility: [facility] Address: [address] [place] [address] Performed By: #### 5 7021-8 ####[facility] [id number] [place] [address] [place] Hematocrit (Bld) [Volume fraction] 25.1 % Low 36.0-46.0 [facility] Comment on above: Order Comment: Speci men Type: BLOOD SPECIMENOrdering Facility: [facility] Address: [address] [place] [address] Performed By: #### 5 7021-8 ####[facility] JARONAILYNLIA [id number] [place] [address] [place] Hemoglobin (Bld) [Mass/Vol] 8.5 g/dL Low 11.5-15.5 [facility] Comment on above: Order Comment: Speci men Type: BLOOD SPECIMENOrdering Facility: [facility] Address: [address] [place] [address] Performed By: #### 5 7021-8 ####[facility] HOSPITALBANGLIA [id number] [place] [address] [place] Immature granulocytes (Bld) [#/Vol] 0.03 10*3/uL Normal <0.10 [facility] Comment on above: Order Comment: Speci men Type: BLOOD SPECIMENOrdering Facility: [facility] Address: [address] [place] [address] Performed By: #### 5 7021-8 ####[facility] HOSPITALBANGLIA [id number] [place] [address] [place] Immature granulocytes/100 WBC (Bld) 0.7 % Normal [facility] Comment on above: Order Comment: Speci men Type: BLOOD SPECIMENOrdering Facility: [facility] Address: [address] [place] [address] Performed By: #### 5 7021-8 ####[facility] HOSPITALBANGLIA [id number] [place] [address] [place] Lymphocytes (Bld) [#/Vol] 0.69 10*3/uL Low 1.00-4.00 [facility] Comment on above: Order Comment: Speci men Type: BLOOD SPECIMENOrdering Facility: [facility] Address: [address] [place] [address] Performed By: #### 5 7021-8 ####[facility] [id number] [place] [address] [place] Lymphocytes/100 WBC (Bld) 15.2 % Normal [facility] Comment on above: Order Comment: Speci men Type: BLOOD SPECIMENOrdering Facility: [facility] Address: [address] [place] [address] Performed By: #### 5 7021-8 ####[facility] [id number] [place] [address] [place] MCH (RBC) [Entitic mass] 39.0 pg High 26.0-34.0 [facility] Comment on above: Order Comment: Speci men Type: BLOOD SPECIMENOrdering Facility: [facility] Address: [address] [place] [address] Performed By: #### 5 7021-8 ####[facility] [id number] [place] [address] [place] MCHC (RBC) [Mass/Vol] 33.9 g/dL Normal 30.5-36.0 [facility] Comment on above: Order Comment: Speci men Type: BLOOD SPECIMENOrdering Facility: [facility] Address: [address] [place] [address] Performed By: #### 5 7021-8 ####[facility] [id number] [place] [address] [place] MCV (RBC) [Entitic vol] 115.1 fL High 80.0-100.0 [facility] Comment on above: Order Comment: Speci men Type: BLOOD SPECIMENOrdering Facility: [facility] Address: [address] [place] [address] Performed By: #### 5 7021-8 ####[facility]PITALNCLIA [id number] [place] [address] [place] Monocytes (Bld) [#/Vol] 0.52 10*3/uL Normal <0.87 [facility] Comment on above: Order Comment: Speci men Type: BLOOD SPECIMENOrdering Facility: [facility] Address: [address] [place] [address] Performed By: #### 5 7021-8 ####[facility] [id number] [place] [address] [place] Monocytes/100 WBC (Bld) 11.4 % Normal [facility] Comment on above: Order Comment: Speci men Type: BLOOD SPECIMENOrdering Facility: [facility] Address: [address] [place] [address] Performed By: #### 5 7021-8 ####[facility] [id number] [place] [address] [place] Neutrophils (Bld) [#/Vol] 3.22 10*3/uL Normal 1.45-7.50 [facility] Comment on above: Order Comment: Speci men Type: BLOOD SPECIMENOrdering Facility: [facility] Address: [address] [place] [address] Performed By: #### 5 7021-8 ####[facility] [id number] [place] [address] [place] Neutrophils/100 WBC (Bld) 70.7 % Normal [facility] Comment on above: Order Comment: Speci men Type: BLOOD SPECIMENOrdering Facility: [facility] Address: [address] [place] [address] Performed By: #### 5 7021-8 ####[facility] [id number] [place] [address] [place] Nucleated RBC (Bld) [#/Vol] 10*3/uL Normal <0.01 [facility] Comment on above: Order Comment: Speci men Type: BLOOD SPECIMENOrdering Facility: [facility] Address: [address] [place] [address] Performed By: #### 5 7021-8 ####[facility] JARONSofyaNCNICOLETTEA [id number] [place] [address] [place] Nucleated RBC/100 WBC (Bld) [Ratio] 0.0 /100 WBC Normal [facility] Comment on above: Order Comment: Speci men Type: BLOOD SPECIMENOrdering Facility: [facility] Address: [address] [place] [address] Performed By: #### 5 7021-8 ####[facility]PITALNCLIA [id number] [place] [address] [place] Platelet mean volume (Bld) [Entitic vol] 10.7 fL Normal 9.0-12.7 [facility] Comment on above: Order Comment: Speci men Type: BLOOD SPECIMENOrdering Facility: [facility] Address: [address] [place] [address] Performed By: #### 5 7021-8 ####[facility] HOSPITALNCA [id number] [place] [address] [place] Platelets (Bld) [#/Vol] 177 10*3/uL Normal 150-400 [facility] Comment on above: Order Comment: Speci men Type: BLOOD SPECIMENOrdering Facility: [facility] Address: [address] [place] [address] Performed By: #### 5 7021-8 ####[facility]PITALNCLIA [id number] [place] [address] [place] RBC (Bld) [#/Vol] 2.18 10*6/uL Low 3.90-5.20 [facility] Comment on above: Order Comment: Speci men Type: BLOOD SPECIMENOrdering Facility: [facility] Address: [address] [place] [address] Performed By: #### 5 7021-8 ####[facility]PITALLIA [id number] [place] [address] [place] WBC (Bld) [#/Vol] 4.55 10*3/uL Normal 3.70-11.00 [facility] Comment on above: Order Comment: Speci men Type: BLOOD SPECIMENOrdering Facility: [facility] Address: [address] [place] [address] Performed By: #### 5 7021-8 ####[facility]ENTERA [id number] [place] [address] [place] REFERRAL FOR ADDITIONAL BIOM ARKER AND MOLECULAR TESTINGon 03-16-2025 REFERRAL FOR ADDITIONAL BIOMARKER AND MOLECULAR TESTING Normal [facility] Comment on above: Order Comment: Speci men Type: TISSUE SPECIMEN [facility] Address: [address] [place] [address] Result Comment: Requ est has been received for evaluation and the results will be issued separately. Performed By: #### A PMOL #### [facility] CLIA [id number] [place] [address] [place] CNOVSPon 03-15-2025 CNOVSP Normal [facility] CNPNon 03-15-2025 CNPN Normal [facility] CNPNon 03-13-2025 CNPN Normal [facility] FERRITINon 03-08-2025 Ferritin [Mass/Vol] 507.0 ng/mL High 14.7 - 205.1 ng/mL [facility] Ferritin SerPl-mCncon 2024 Ferritin [Mass/Vol] 507.0 ng/mL High 14.7-205.1 [facility] Comment on above: Order Comment: Speci men Type: BLOOD SPECIMENOrdering Facility: [facility] Address: [address] [place] [address] Performed By: #### 5 0190-8, 2276-4 ####[facility] LABCLIA [id number] [place] [address] [place] Ferritin [Mass/Vol]on 2024 Interpretation and review of laboratory results Abnormal [facility] Iron and Iron binding capaci ty panelon 03-08-2025 Interpretation and review of laboratory results Normal [facility] Iron [Mass/Vol] 61 ug/dL 41 - 186 ug/dL [facility] Iron binding capacity [Mass/Vol] 236 ug/dL 232 - 386 ug/dL [facility] Iron/TIBC [Molar ratio] 25.8 % 15.0 - 57.0 % [facility] Iron [Mass/Vol] 61 ug/dL Normal 41-186 [facility] Comment on above: Order Comment: Speci men Type: BLOOD SPECIMENOrdering Facility: [facility] Address: [address] [place] [address] Performed By: #### 5 0190-8, 6-4 ####[facility] LABIA [id number] [address] STATES OF [facility] Iron binding capacity [Mass/Vol] 236 ug/dL Normal 232-386 [facility] Comment on above: Order Comment: Speci men Type: BLOOD SPECIMENOrdering Facility: [facility] Address: [address] [place] [address] Performed By: #### 5 0190-8, 2275-4 ####[facility] LABIA [id number] [address] [place] Iron/TIBC [Molar ratio] 25.8 % Normal 15.0-57.0 [facility] Comment on above: Order Comment: Speci men Type: BLOOD SPECIMENOrdering Facility: [facility] Address: [address] [place] [address] Performed By: #### 5 0190-8, 2275-4 ####[facility] LABIA [id number] [place] [address] [place] CBC W Auto Differential pane l (Bld)on 03-07-2025 Basophils (Bld) [#/Vol] NINF [facility] Basophils/100 WBC (Bld) 0.2 % [facility] Differential cell count method Nom (Bld) Auto [facility] Eosinophils (Bld) [#/Vol] 0.10 10*3/uL [facility] Eosinophils/100 WBC (Bld) 2.3 % [facility] Erythrocyte distribution width (RBC) [Ratio] 15.9 % High 11.5 - 15.0 % [facility] Hematocrit (Bld) [Volume fraction] 24.0 % Low 36.0 - 46.0 % [facility] Hemoglobin (Bld) [Mass/Vol] 8.2 g/dL Low 11.5 - 15.5 g/dL [facility] Immature granulocytes (Bld) [#/Vol] [facility] Immature granulocytes/100 WBC (Bld) 0.2 % [facility] Interpretation and review of laboratory results Abnormal [facility] Lymphocytes (Bld) [#/Vol] 0.56 10*3/uL Low [facility] Lymphocytes/100 WBC (Bld) 12.9 % [facility] MCH (RBC) [Entitic mass] 39.2 pg High 26.0 - 34.0 pg [facility] MCHC (RBC) [Mass/Vol] 34.2 g/dL 30.5 - 36.0 g/dL [facility] MCV (RBC) [Entitic vol] 114.8 fL High 80.0 - 100.0 fL [facility] Monocytes (Bld) [#/Vol] 0.46 10*3/uL [facility] Monocytes/100 WBC (Bld) 10.6 % [facility] Neutrophils (Bld) [#/Vol] 3.21 10*3/uL [facility] Neutrophils/100 WBC (Bld) 73.8 % [facility] Nucleated RBC (Bld) [#/Vol] [facility] Nucleated RBC/100 WBC (Bld) [Ratio] 0.0 % /100 WBC [facility] Platelet mean volume (Bld) [Entitic vol] 10.3 fL 9.0 - 12.7 fL [facility] Platelets (Bld) [#/Vol] 139 10*3/uL Low [facility] RBC (Bld) [#/Vol] 2.09 10*6/uL Low 3.90 - 5.2 0 m/uL [facility] WBC (Bld) [#/Vol] 4.35 10*3/uL [facility] Basophils (Bld) [#/Vol] 10*3/uL Normal <0.11 [facility] Comment on above: Order Comment: Speci men Type: BLOOD SPECIMENOrdering Facility: [facility] Address: [address] [place] [address] Performed By: #### 5 7021-8 ####[facility] MILLWNCLIA [id number] [place] [address] [place] Basophils/100 WBC (Bld) 0.2 % Normal [facility] Comment on above: Order Comment: Speci men Type: BLOOD SPECIMENOrdering Facility: [facility] Address: [address] [place] [address] Performed By: #### 5 7021-8 ####[facility] [id number] [place] [address] [place] Differential cell count method Nom (Bld) Auto Normal [facility] Comment on above: Order Comment: Speci men Type: BLOOD SPECIMENOrdering Facility: [facility] Address: [address] [place] [address] Performed By: #### 5 7021-8 ####[facility] [id number] [place] [address] [place] Eosinophils (Bld) [#/Vol] 0.10 10*3/uL Normal <0.46 [facility] Comment on above: Order Comment: Speci men Type: BLOOD SPECIMENOrdering Facility: [facility] Address: [address] [place] [address] Performed By: #### 5 7021-8 ####[facility]ENTERA [id number] [place] [address] [place] Eosinophils/100 WBC (Bld) 2.3 % Normal [facility] Comment on above: Order Comment: Speci men Type: BLOOD SPECIMENOrdering Facility: [facility] Address: [address] [place] [address] Performed By: #### 5 7021-8 ####[facility]OSPITALNCLIA [id number] [place] [address] [place] Erythrocyte distribution width (RBC) [Ratio] 15.9 % High 11.5-15.0 [facility] Comment on above: Order Comment: Speci men Type: BLOOD SPECIMENOrdering Facility: [facility] Address: [address] [place] [address] Performed By: #### 5 7021-8 ####[facility] HOSPITALNCA [id number] [place] [address] [place] Hematocrit (Bld) [Volume fraction] 24.0 % Low 36.0-46.0 [facility] Comment on above: Order Comment: Speci men Type: BLOOD SPECIMENOrdering Facility: [facility] Address: [address] [place] [address] Performed By: #### 5 7021-8 ####[facility]A [id number] [place] [address] [place] Hemoglobin (Bld) [Mass/Vol] 8.2 g/dL Low 11.5-15.5 [facility] Comment on above: Order Comment: Speci men Type: BLOOD SPECIMENOrdering Facility: [facility] Address: [address] [place] [address] Performed By: #### 5 7021-8 ####[facility]OSPITALLIA [id number] [place] [address] [place] Immature granulocytes (Bld) [#/Vol] 10*3/uL Normal <0.10 [facility] Comment on above: Order Comment: Speci men Type: BLOOD SPECIMENOrdering Facility: [facility] Address: [address] [place] [address] Performed By: #### 5 7021-8 ####[facility] [id number] [place] [address] [place] Immature granulocytes/100 WBC (Bld) 0.2 % Normal [facility] Comment on above: Order Comment: Speci men Type: BLOOD SPECIMENOrdering Facility: [facility] Address: [address] [place] [address] Performed By: #### 5 7021-8 ####[facility] [id number] [place] [address] [place] Lymphocytes (Bld) [#/Vol] 0.56 10*3/uL Low 1.00-4.00 [facility] Comment on above: Order Comment: Speci men Type: BLOOD SPECIMENOrdering Facility: [facility] Address: [address] [place] [address] Performed By: #### 5 7021-8 ####[facility] [id number] [place] [address] [place] Lymphocytes/100 WBC (Bld) 12.9 % Normal [facility] Comment on above: Order Comment: Speci men Type: BLOOD SPECIMENOrdering Facility: [facility] Address: [address] [place] [address] Performed By: #### 5 7021-8 ####[facility] [id number] [place] [address] [place] MCH (RBC) [Entitic mass] 39.2 pg High 26.0-34.0 [facility] Comment on above: Order Comment: Speci men Type: BLOOD SPECIMENOrdering Facility: [facility] Address: [address] [place] [address] Performed By: #### 5 7021-8 ####[facility] [id number] [place] [address] [place] MCHC (RBC) [Mass/Vol] 34.2 g/dL Normal 30.5-36.0 [facility] Comment on above: Order Comment: Speci men Type: BLOOD SPECIMENOrdering Facility: [facility] Address: [address] [place] [address] Performed By: #### 5 7021-8 ####[facility]OSPITALNCJORD[facility] [id number] [place] [address] [place] MCV (RBC) [Entitic vol] 114.8 fL High 80.0-100.0 [facility] Comment on above: Order Comment: Speci men Type: BLOOD SPECIMENOrdering Facility: [facility] Address: [address] [place] [address] Performed By: #### 5 7021-8 ####[facility]OSPITALNCJORD[facility] [id number] [place] [address] [place] Monocytes (Bld) [#/Vol] 0.46 10*3/uL Normal <0.87 [facility] Comment on above: Order Comment: Speci men Type: BLOOD SPECIMENOrdering Facility: [facility] Address: [address] [place] [address] Performed By: #### 5 7021-8 ####[facility] HOSPITALNCA [id number] [place] [address] [place] Monocytes/100 WBC (Bld) 10.6 % Normal [facility] Comment on above: Order Comment: Speci men Type: BLOOD SPECIMENOrdering Facility: [facility] Address: [address] [place] [address] Performed By: #### 5 7021-8 ####[facility] HOSPITALNCA [id number] [place] [address] [place] Neutrophils (Bld) [#/Vol] 3.21 10*3/uL Normal 1.45-7.50 [facility] Comment on above: Order Comment: Speci men Type: BLOOD SPECIMENOrdering Facility: [facility] Address: [address] [place] [address] Performed By: #### 5 7021-8 ####[facility] HOSPITALBANGLIA [id number] [place] [address] [place] [facility] Neutrophils/100 WBC (Bld) 73.8 % Normal [facility] Comment on above: Order Comment: Speci men Type: BLOOD SPECIMENOrdering Facility: [facility] Address: [address] [place] [address] Performed By: #### 5 7021-8 ####[facility] HOSPITALNCLI [id number] [place] [address] [place] Nucleated RBC (Bld) [#/Vol] 10*3/uL Normal <0.01 [facility] Comment on above: Order Comment: Speci men Type: BLOOD SPECIMENOrdering Facility: [facility] Address: [address] [place] [address] Performed By: #### 5 7021-8 ####[facility] [id number] [place] [address] [place] Nucleated RBC/100 WBC (Bld) [Ratio] 0.0 /100 WBC Normal [facility] Comment on above: Order Comment: Speci men Type: BLOOD SPECIMENOrdering Facility: [facility] Address: [address] [place] [address] Performed By: #### 5 7021-8 ####[facility]PITALLIA [id number] [place] [address] [place] Platelet mean volume (Bld) [Entitic vol] 10.3 fL Normal 9.0-12.7 [facility] Comment on above: Order Comment: Speci men Type: BLOOD SPECIMENOrdering Facility: [facility] Address: [address] [place] [address] Performed By: #### 5 7021-8 ####[facility]PITALLIA [id number] [place] [address] [place] Platelets (Bld) [#/Vol] 139 10*3/uL Low 150-400 [facility] Comment on above: Order Comment: Speci men Type: BLOOD SPECIMENOrdering Facility: [facility] Address: [address] [place] [address] Performed By: #### 5 7021-8 ####[facility] HOSPITALNCLIA [id number] [place] [address] [place] RBC (Bld) [#/Vol] 2.09 10*6/uL Low 3.90-5.20 [facility] Comment on above: Order Comment: Speci men Type: BLOOD SPECIMENOrdering Facility: [facility] Address: [address] [place] [address] Performed By: #### 5 7021-8 ####[facility] HOSPITALNCLIA [id number] [place] [address] [place] WBC (Bld) [#/Vol] 4.35 10*3/uL Normal 3.70-11.00 [facility] Comment on above: Order Comment: Speci men Type: BLOOD SPECIMENOrdering Facility: [facility] Address: [address] [place] [address] Performed By: #### 5 7021-8 ####[facility] HOSPITALNCLIA [id number] [place] [address] [place] CNPNon 03-07-2025 CNPN Normal [facility] CT ABD/PEL W IVCONon 025 CT ABD/PEL W IVCON Normal [facility] CT CHEST W IVCONon CT CHEST W IVCON Normal [facility] CNOVSPon 02-27-2025 CNOVSP Visit (SP) Office (AGGYNONPOB) -- ASHLEYELOISEAMIRAH CUTLER ([id number]) 1950 F Date Time Provider Department 02/27/25 1:00 PM MAYTE GONZALEZ During your visit today, we recorded the following information about you: Temperature Pulse Blood pressure Weight 98.1 degrees 77/minute 168/73 51.3 kg Mayte Gonzalez, PERL DEVELOPER.AIRPLANE PATROL PILOT 02/27/2025 1:45 PM Signed Gynecologic Oncology Note [facility] Chief complaint: Ovarian cancer surveillance HPI: This [...] discussed with the Patient or Patient's Authorized Personnel Officer. As applicable, any other physician, advance practice provider, medical student, or other health professional student that will be observing or involved in the sensitive examination for educational or training purposes was discussed with the Patient or Authorized Personnel Officer. The Patient or Authorized Personnel Officer has agreed to proceed with the sensitive [...] but has not tested yet Mayte Gonzalez, PERL DEVELOPER.AIRPLANE PATROL PILOT Some elements copied from previous notes , including the physical exam completed in entirety today, have been updated where appropriate. All reflect current medical decision making from today, Medical Decision Making: Problems: Moderate: 1+ chronic illnesses with change Data: Unique source(s) for external note(s) reviewed: 3+ Unique test result(s) reviewed: 3+ Medical Decision Making Level: 4 - Moderate Referring Provider: MEERA-AMBRA PARSONS [[id number]] Allergies As of Date: 02/27/2025 Noted Allergy Reaction ERYTHROMYCIN 02/09/2008 6 - Diarrhea 8 - GI Upset Comments: Abdominal cramping PENICILLINS 02/09/2008 16 - Unknown Date Reviewed: 02/27/2025 Reviewed by: Mayte Gonzalez APRN.AIRPLANE PATROL PILOT - Fully Assessed Reason for Visit: Established [...] olaparib (LYNPA (more content not included)... Normal [facility] CNPNon 02-23-2025 CNPN Normal [facility] Cancer Ag125 SerPl-aCncon Cancer Ag 125 Qn 47 [arb'U]/mL High <39 [facility] Comment on above: Order Comment: Speci men Type: BLOOD SPECIMENOrdering Facility: [facility] Address: [address] [place] [address] Result Comment: CA 1 25 test methodology [...] (CA 125 II) [package insert V 1.0 Swazi]. [facility], [place], [place] (April 2015) Performed By: #### 1 0334-1 ####[facility] LABCLIA [id number] [place] [address] [place] Folate SerPl-mCncon 02-21-20 25 Folate [Mass/Vol] ng/mL Normal >4.7 [facility] Comment on above: Order Comment: Speci men Type: BLOOD SPECIMENOrdering Facility: [facility] Address: [address] [place] [address] Result Comment: A re sult of > 20 ng/mL is not necessarily indicative of a pathologic or treatable condition: it reflects a limitation of the test methodology.Assay reference range: 4.8 to 24.2 ng/mL. Suitable for detection of folate deficiency.Reference:Folate III (Folate III) [package insert V 1.0 Swazi]. [facility], [place], [place]: May 2015. Performed By: #### 2 284-8 ####[facility] LABCLIA [id number] [place] [address] [place] CNPNon 02-15-2025 CNPN Normal [facility] CNPNon 02-09-2025 CNPN Normal [facility] CBC W Auto Differential pane l (Bld)on 02-08-2025 Basophils (Bld) [#/Vol] [facility] Basophils/100 WBC (Bld) 0.4 % [facility] Differential cell count method Nom (Bld) Auto [facility] Eosinophils (Bld) [#/Vol] 0.08 10*3/uL [facility] Eosinophils/100 WBC (Bld) 1.7 % [facility] Erythrocyte distribution width (RBC) [Ratio] 15.1 % High 11.5 - 15.0 % [facility] Hematocrit (Bld) [Volume fraction] 25.4 % Low 36.0 - 46.0 % [facility] Hemoglobin (Bld) [Mass/Vol] 8.7 g/dL Low 11.5 - 15.5 g/dL [facility] Immature granulocytes (Bld) [#/Vol] [facility] Immature granulocytes/100 WBC (Bld) 0.4 % [facility] Interpretation and review of laboratory results Abnormal [facility] Lymphocytes (Bld) [#/Vol] 0.91 10*3/uL Low [facility] Lymphocytes/100 WBC (Bld) 19.8 % [facility] MCH (RBC) [Entitic mass] 38.3 pg High 26.0 - 34.0 pg [facility] MCHC (RBC) [Mass/Vol] 34.3 g/dL 30.5 - 36.0 g/dL [facility] MCV (RBC) [Entitic vol] 111.9 fL High 80.0 - 100.0 fL [facility] Monocytes (Bld) [#/Vol] 0.45 10*3/uL NINF [facility] Monocytes/100 WBC (Bld) 9.8 % [facility] Neutrophils (Bld) [#/Vol] 3.12 10*3/uL [facility] Neutrophils/100 WBC (Bld) 67.9 % [facility] Nucleated RBC (Bld) [#/Vol] NINF [facility] Nucleated RBC/100 WBC (Bld) [Ratio] 0 % /100 WBC [facility] Platelet mean volume (Bld) [Entitic vol] 10.1 fL 9.0 - 12.7 fL [facility] Platelets (Bld) [#/Vol] 160 10*3/uL [facility] RBC (Bld) [#/Vol] 2.27 10*6/uL Low 3.90 - 5.2 0 m/uL [facility] WBC (Bld) [#/Vol] 4.6 10*3/uL [facility] Basophils (Bld) [#/Vol] 10*3/uL Normal <0.11 [facility] Comment on above: Order Comment: Speci men Type: BLOOD SPECIMENOrdering Facility: [facility] Address: [address] [place] [address] Performed By: #### 5 7021-8 ####[facility] [id number] [place] [address] [place] Basophils/100 WBC (Bld) 0.4 % Normal [facility] Comment on above: Order Comment: Speci men Type: BLOOD SPECIMENOrdering Facility: [facility] Address: [address] [place] [address] Performed By: #### 5 7021-8 ####[facility] [id number] [place] [address] [place] Differential cell count method Nom (Bld) Auto Normal [facility] Comment on above: Order Comment: Speci men Type: BLOOD SPECIMENOrdering Facility: [facility] Address: [address] [place] [address] Performed By: #### 5 7021-8 ####[facility] CENTERWNCLIA [id number] [place] [address] [place] Eosinophils (Bld) [#/Vol] 0.08 10*3/uL Normal <0.46 [facility] Comment on above: Order Comment: Speci men Type: BLOOD SPECIMENOrdering Facility: [facility] Address: [address] [place] [address] Performed By: #### 5 7021-8 ####[facility] CENTERWILLIA [id number] [place] [address] [place] Eosinophils/100 WBC (Bld) 1.7 % Normal [facility] Comment on above: Order Comment: Speci men Type: BLOOD SPECIMENOrdering Facility: [facility] Address: [address] [place] [address] Performed By: #### 5 7021-8 ####[facility]PITALLIA [id number] [place] [address] [place] Erythrocyte distribution width (RBC) [Ratio] 15.1 % High 11.5-15.0 [facility] Comment on above: Order Comment: Speci men Type: BLOOD SPECIMENOrdering Facility: [facility] Address: [address] [place] [address] Performed By: #### 5 7021-8 ####[facility] MILLWNCLIA [id number] [place] [address] [place] Hematocrit (Bld) [Volume fraction] 25.4 % Low 36.0-46.0 [facility] Comment on above: Order Comment: Speci men Type: BLOOD SPECIMENOrdering Facility: [facility] Address: [address] [place] [address] Performed By: #### 5 7021-8 ####[facility]PITALLIA [id number] [place] [address] [place] Hemoglobin (Bld) [Mass/Vol] 8.7 g/dL Low 11.5-15.5 [facility] Comment on above: Order Comment: Speci men Type: BLOOD SPECIMENOrdering Facility: [facility] Address: [address] [place] [address] Performed By: #### 5 7021-8 ####[facility] CENTERWILLIA [id number] [place] [address] [place] Immature granulocytes (Bld) [#/Vol] 10*3/uL Normal <0.10 [facility] Comment on above: Order Comment: Speci men Type: BLOOD SPECIMENOrdering Facility: [facility] Address: [address] [place] [address] Performed By: #### 5 7021-8 ####[facility] CENTERA [id number] [place] [address] [place] Immature granulocytes/100 WBC (Bld) 0.4 % Normal [facility] Comment on above: Order Comment: Speci men Type: BLOOD SPECIMENOrdering Facility: [facility] Address: [address] [place] [address] Performed By: #### 5 7021-8 ####[facility]PITALLIA [id number] [place] [address] [place] Lymphocytes (Bld) [#/Vol] 0.91 10*3/uL Low 1.00-4.00 [facility] Comment on above: Order Comment: Speci men Type: BLOOD SPECIMENOrdering Facility: [facility] Address: [address] [place] [address] Performed By: #### 5 7021-8 ####[facility]ITALLIA [id number] [place] [address] [place] Lymphocytes/100 WBC (Bld) 19.8 % Normal [facility] Comment on above: Order Comment: Speci men Type: BLOOD SPECIMENOrdering Facility: [facility] Address: [address] [place] [address] Performed By: #### 5 7021-8 ####[facility] JARONWALNUT SPRINGSNCJASE [id number] [place] [address] [place] MCH (RBC) [Entitic mass] 38.3 pg High 26.0-34.0 [facility] Comment on above: Order Comment: Speci men Type: BLOOD SPECIMENOrdering Facility: [facility] Address: [address] [place] [address] Performed By: #### 5 7021-8 ####[facility] HOSPITALNCLIA [id number] [place] [address] [place] MCHC (RBC) [Mass/Vol] 34.3 g/dL Normal 30.5-36.0 [facility] Comment on above: Order Comment: Speci men Type: BLOOD SPECIMENOrdering Facility: [facility] Address: [address] [place] [address] Performed By: #### 5 7021-8 ####[facility] HOSPITALNCLIA [id number] [address] [place] MCV (RBC) [Entitic vol] 111.9 fL High 80.0-100.0 [facility] Comment on above: Order Comment: Speci men Type: BLOOD SPECIMENOrdering Facility: [facility] Address: [address] [place] [address] Performed By: #### 5 7021-8 ####[facility] HOSPITALNCLIA [id number] [place] [address] [place] Monocytes (Bld) [#/Vol] 0.45 10*3/uL Normal <0.87 [facility] Comment on above: Order Comment: Speci men Type: BLOOD SPECIMENOrdering Facility: [facility] Address: [address] [place] [address] Performed By: #### 5 7021-8 ####[facility]OSPITALNCLIA [id number] [place] [address] [place] Monocytes/100 WBC (Bld) 9.8 % Normal [facility] Comment on above: Order Comment: Speci men Type: BLOOD SPECIMENOrdering Facility: [facility] Address: [address] [place] [address] Performed By: #### 5 7021-8 ####[facility]OSPITALNCLIA [id number] [place] [address] [place] Neutrophils (Bld) [#/Vol] 3.12 10*3/uL Normal 1.45-7.50 [facility] Comment on above: Order Comment: Speci men Type: BLOOD SPECIMENOrdering Facility: [facility] Address: [address] [place] [address] Performed By: #### 5 7021-8 ####[facility]OSPITALNCLIA [id number] [place] [address] [place] Neutrophils/100 WBC (Bld) 67.9 % Normal [facility] Comment on above: Order Comment: Speci men Type: BLOOD SPECIMENOrdering Facility: [facility] Address: [address] [place] [address] Performed By: #### 5 7021-8 ####[facility] HOSPITALNCLIA [id number] [place] [address] [place] Nucleated RBC (Bld) [#/Vol] 10*3/uL Normal <0.01 [facility] Comment on above: Order Comment: Speci men Type: BLOOD SPECIMENOrdering Facility: [facility] Address: [address] [place] [address] Performed By: #### 5 7021-8 ####[facility]OSPITALNCLIA [id number] [place] [address] [place] Nucleated RBC/100 WBC (Bld) [Ratio] 0.0 /100 WBC Normal [facility] Comment on above: Order Comment: Speci men Type: BLOOD SPECIMENOrdering Facility: [facility] Address: [address] [place] [address] Performed By: #### 5 7021-8 ####[facility] HOSPITALBANGJASE [id number] [place] [address] [place] Platelet mean volume (Bld) [Entitic vol] 10.1 fL Normal 9.0-12.7 [facility] Comment on above: Order Comment: Speci men Type: BLOOD SPECIMENOrdering Facility: [facility] Address: [address] [place] [address] Performed By: #### 5 7021-8 ####[facility] HOSPITALBANGDarryl [id number] [place] [address] [place] Platelets (Bld) [#/Vol] 160 10*3/uL Normal 150-400 [facility] Comment on above: Order Comment: Speci men Type: BLOOD SPECIMENOrdering Facility: [facility] Address: [address] [place] [address] Performed By: #### 5 7021-8 ####[facility] HOSPITALBANGJASE [id number] [place] [address] [place] RBC (Bld) [#/Vol] 2.27 10*6/uL Low 3.90-5.20 [facility] Comment on above: Order Comment: Speci men Type: BLOOD SPECIMENOrdering Facility: [facility] Address: [address] [place] [address] Performed By: #### 5 7021-8 ####[facility] HOSPITALNCLIA [id number] [place] [address] [place] WBC (Bld) [#/Vol] 4.60 10*3/uL Normal 3.70-11.00 [facility] Comment on above: Order Comment: Speci men Type: BLOOD SPECIMENOrdering Facility: [facility] Address: [address] [place] [address] Performed By: #### 5 7021-8 ####[facility] YADI [facility]PITALLIA [id number] [address] [place] CNOVSPon 02-08-2025 CNOVSP Normal [facility] Cancer Ag125 SerPl-aCncon Cancer Ag 125 Qn 46 [arb'U]/mL High <39 [facility] Comment on above: Order Comment: Speci men Type: BLOOD SPECIMENOrdering Facility: [facility] Address: [address] [place] [address] Result Comment: CA 1 25 test methodology [...] (CA 125 II) [package insert V 1.0 Swazi]. [employer], [place], [place] (April 2015) Performed By: #### 1 0334-1, 18918-0 ####[facility] LABCLIA [id number] [address] STATES OF [facility] Comprehensive metabolic 2000 panelOrdered By: Rosa Cedillo on 02-08-2025 Albumin [Mass/Vol] 4.3 g/dL 3.9 - 4.9 g/dL [facility] ALP [Catalytic activity/Vol] 114 U/L 34 - 123 U/L [facility] ALT [Catalytic activity/Vol] 18 U/L 7 - 38 U/L [facility] Anion gap [Moles/Vol] 14 mmol/L 8 - 15 mmol/L [facility] AST [Catalytic activity/Vol] 24 U/L 13 - 35 U/L [facility] Bilirubin [Mass/Vol] 0.7 mg/dL 0.2 - 1 .3 mg/dL [facility] Calcium [Mass/Vol] 9.9 mg/dL 8.5 - 10. 2 mg/dL [facility] Chloride [Moles/Vol] 100 mmol/L 98 - 10 7 mmol/L [facility] CO2 [Moles/Vol] 25 mmol/L 22 - 30 mmol/L [facility] Creatinine [Mass/Vol] 1.3 mg/dL High 0.58 - 0.96 mg/dL [facility] GFR/1.73 sq M.predicted among non-blacks MDRD (S/P/Bld) [Vol rate/Area] 43 mL/min/{1.73_m2} Low - PINF [facility] Comment on above: Estimated Glomerular Filtration [...] 107 mg/dL High 74 - 99 mg/dL [facility] Comment on above: The [place] Diab[employer] Association (ADA) provides guidance for [...] Standards of Medical Care in Diabetes 2016, [place] [employer]. Diabetes Care. 2016.39(Suppl 1). Interpretation and review of laboratory results Abnormal [facility] Potassium [Moles/Vol] 4.1 mmol/L 3.7 - 5.1 mmol/L [facility] Protein [Mass/Vol] 6.5 g/dL 6.3 - 8.0 g/dL [facility] Sodium [Moles/Vol] 139 mmol/L 136 - 144 mmol/L [facility] Urea nitrogen [Mass/Vol] 28 mg/dL High 7 - 21 mg/dL [facility] Comprehensive metabolic 2000 panelon 02-08-2025 Albumin [Mass/Vol] 4.3 g/dL Normal 3.9-4.9 [facility] Comment on above: Order Comment: Speci men Type: BLOOD SPECIMENOrdering Facility: [facility] Address: [facility] [place] [address] Performed By: #### 2 4323-8 ####[facility] MILLTOWNCLIA [id number] [place] [address] [place]#### 2132-9, 2276-4, 20192-9 ####[facility] LABCLIA [id number] [place] [address] [place] ALP [Catalytic activity/Vol] 114 U/L Normal 34-123 [facility] Comment on above: Order Comment: Speci men Type: BLOOD SPECIMENOrdering Facility: [facility] Address: [address] [place] [address] Performed By: #### 2 4323-8 ####[facility]ENTERWNCLIA [id number] [place] [address] [place]#### 2132-9, 6-4, 65104-7 ####[facility] LABCLIA [id number] [place] [address] [place] ALT [Catalytic activity/Vol] 18 U/L Normal 7-38 [facility] Comment on above: Order Comment: Speci men Type: BLOOD SPECIMENOrdering Facility: [facility] Address: [facility] [place] [id number] Performed By: #### 2 4323-8 ####[facility] MILLTOWNCLIA [id number] [place] [address] [place]#### 2132-9, 2275-4, 62673-7 ####[facility] LABCLIA [id number] [address] [address] [place] Anion gap [Moles/Vol] 14 mmol/L Normal 8-15 [facility] Comment on above: Order Comment: Speci men Type: BLOOD SPECIMENOrdering Facility: [facility] Address: [address] [place] [address] Performed By: #### 2 4323-8 ####[facility] MILLTOWNCLIA [id number] [place] [address] [place]#### 2132-9, 2275-4, 39413-2 ####[facility] LABCLIA [id number] [place] [id number] [place] AST [Catalytic activity/Vol] 24 U/L Normal 13-35 [facility] Comment on above: Order Comment: Speci men Type: BLOOD SPECIMENOrdering Facility: [facility] Address: [address] [place] [address] Performed By: #### 2 4323-8 ####[facility] MILLWNCLIA [id number] [place] [address] [place]#### 2132-9, 6-4, 37681-3 ####[facility] LABCLIA [id number] [place] [id number] [place] Bilirubin [Mass/Vol] 0.7 mg/dL Normal 0.2-1.3 [facility] Comment on above: Order Comment: Speci men Type: BLOOD SPECIMENOrdering Facility: [facility] Address: [address] [place], [place] [address] Performed By: #### 2 4323-8 ####[facility] MILLTOWNCLIA [id number] [place] [address] [place]#### 2132-9, 2275-4, 77127-2 ####[facility] LABCLIA [id number] [address] [address] [place] Calcium [Mass/Vol] 9.9 mg/dL Normal 8.5-10.2 [facility] Comment on above: Order Comment: Speci men Type: BLOOD SPECIMENOrdering Facility: [facility] Address: [address] [place] [address] Performed By: #### 2 4323-8 ####[facility] MILLTOWNCLIA [id number] [place] [address] [place]#### 2132-9, 2275-10, 62666-9 ####[facility] LABCLIA [id number] [address] [address] [place] Chloride [Moles/Vol] 100 mmol/L Normal 98-107 [facility] Comment on above: Order Comment: Speci men Type: BLOOD SPECIMENOrdering Facility: [facility] Address: [address] [place] [id number] Performed By: #### 2 4323-8 ####[facility] MILLWNCLIA [id number] [place] [address] [place]#### 2132-9, 4, 64970-6 ####[facility] LABCLIA [id number] [place] [id number] [place] CO2 [Moles/Vol] 25 mmol/L Normal 22-30 [facility] Comment on above: Order Comment: Speci men Type: BLOOD SPECIMENOrdering Facility: [facility] Address: [address] [place] [id number] Performed By: #### 2 4323-8 ####[facility] MILLTOWNCLIA [id number] [place] [address] [place]#### 2132-9, 6-4, 47245-6 ####[facility] LABCLIA [id number] [address] [address] [place] Creatinine [Mass/Vol] 1.30 mg/dL High 0.58-0.96 [facility] Comment on above: Order Comment: Speci men Type: BLOOD SPECIMENOrdering Facility: [facility] Address: [address] [place] [address] Performed By: #### 2 4323-8 ####[facility]PITALLIA [id number] [place] [address] [place]#### 2132-9, 2276-, ####[facility] LABIA [id number] [place] [address] [place] eGFRcr SerPlBld CKD-EPI 2020 43 mL/min/1.73m??? Low >=60 [facility] Comment on above: Order Comment: Speci men Type: BLOOD SPECIMENOrdering Facility: [facility] Address: [address] [place] [address] Result Comment: Fernanda mated Glomerular Filtration Rate [...] actual GFR. Performed By: #### 2 4323-8 ####[facility]ITALNCLIA [id number] [place] [address] [place]#### 2132-9, 2276-4, 86917-8 ####[facility] LABCLIA [id number] [address] [address] [place] Glucose [Mass/Vol] 107 mg/dL High 74-99 [facility] Comment on above: Order Comment: Speci men Type: BLOOD SPECIMENOrdering Facility: [facility] Address: [address] [place] [address] Result Comment: The [place] Diabetes Association (ADA) provides guidance for cutoff [...] Standards of Medical Care in Diabetes 2016, [place] Diabetes [employer]. Diabetes Care. 2016.39(Suppl 1). Performed By: #### 2 4323-8 ####[facility] [id number] [place] [address] [place]#### 2132-9, 2276-4, 72252-0 ####[facility] LABCLIA [id number] [place] [address] [place] Potassium [Moles/Vol] 4.1 mmol/L Normal 3.7-5.1 [facility] Comment on above: Order Comment: Speci men Type: BLOOD SPECIMENOrdering Facility: [facility] Address: [address] [place] [address] Performed By: #### 2 4323-8 ####[facility]PITALLIA [id number] [place] [address] [place]#### 2132-9, 2276-4, 44901-2 ####[facility] LABCLIA [id number] [place] [id number] [place] Protein [Mass/Vol] 6.5 g/dL Normal 6.3-8.0 [facility] Comment on above: Order Comment: Speci men Type: BLOOD SPECIMENOrdering Facility: [facility] Address: [address] [place] [address] Performed By: #### 2 4323-8 ####[facility] MILLWNCLIA [id number] [place] [address] [place]#### 2132-9, 6-4, 38144-8 ####[facility] LABCLIA [id number] [address] [address] [place] Sodium [Moles/Vol] 139 mmol/L Normal 136-144 [facility] Comment on above: Order Comment: Speci men Type: BLOOD SPECIMENOrdering Facility: [facility] Address: [address] [place] [address] Performed By: #### 2 4323-8 ####[facility]ITALLIA [id number] [place] [address] [place]#### 2132-9, 6-4, 99103-6 ####[facility] LABCLIA [id number] [place] [id number] [place] Urea nitrogen [Mass/Vol] 28 mg/dL High 7-21 [facility] Comment on above: Order Comment: Speci men Type: BLOOD SPECIMENOrdering Facility: [facility] Address: [address] [place] [address] Performed By: #### 2 4323-8 ####[facility]ITALNCLIA [id number] [place] [address] [place]#### 2132-9, 6-4, 23454-3 ####[facility] LABCLIA [id number] [address] [address] [place] Ferritin [facility] 20[facility] Ferritin [Mass/Vol] 39.3 ng/mL Normal 14.7-205.1 [facility] Comment on above: Order Comment: Speci men Type: BLOOD SPECIMENOrdering Facility: [facility] Address: [facility] [place] [address] Performed By: #### 2 4323-8 ####[facility] MILLTOWNCLIA [id number] [place] [address] [place]#### 2132-9, 6-4, 65910-3 ####[facility] LABCLIA [id number] [address] [address] [place] Iron and Iron binding capaci ty panelon 02-08-2025 Iron [Mass/Vol] 38 ug/dL Low 41-186 [facility] Comment on above: Order Comment: Speci men Type: BLOOD SPECIMENOrdering Facility: [facility] Address: [facility] [place] [address] Performed By: #### 2 4323-8 ####[facility]ENTERWNCLIA [id number] [place] [address] [place]#### 2132-9, 2275-10, 95825-7 ####[facility] LABCLIA [id number] [address] [address] [place] Iron binding capacity [Mass/Vol] 317 ug/dL Normal 232-386 [facility] Comment on above: Order Comment: Speci men Type: BLOOD SPECIMENOrdering Facility: [facility] Address: [facility] [place] [address] Performed By: #### 2 4323-8 ####[facility] MILLTOWNCLIA [id number] [place] [address] [place]#### 2132-9, 2275-4, 29677-3 ####[facility] LABCLIA [id number] [address] [address] [place] Iron/TIBC [Molar ratio] 12.0 % Low 15.0-57.0 [facility] Comment on above: Order Comment: Speci men Type: BLOOD SPECIMENOrdering Facility: [facility] Address: [address] [place] [address] Performed By: #### 2 4323-8 ####[facility]ITALLIA [id number] [place] [address] [place]#### 2132-9, 2276-4, 91079-3 ####[facility] LABCLIA [id number] [place] [address] [place] Methylmalonate SerPl-sCncon 02-08-2025 Methylmalonate [Moles/Vol] 0.16 umol/L Normal <=0.40 [facility] Comment on above: Order Comment: Speci men Type: BLOOD SPECIMENOrdering Facility: [facility] Address: [address] [place] [address] Result Comment: This test was developed, and its performance characteristics determined by the [facility] Department of Pathology and Laboratory Medicine. It has not been cleared or approved by the FDA. The [facility] Department of Pathology and Laboratory Medicine is regulated under CLIA as qualified to perform high-complexity testing. This test is used for clinical purposes. It should not be regarded as investigational or for research. Performed By: #### 1 0334-1, 48102-4 ####[facility] LABCLIA [id number] [place] [address] [place] Vit B12 SerPl-mCncon 025 Cobalamin (Vitamin B12) [Mass/Vol] 986 pg/mL Normal 232-1245 [facility] Comment on above: Order Comment: Speci men Type: BLOOD SPECIMENOrdering Facility: [facility] Address: [address] [place] [address] Performed By: #### 2 4323-8 ####[facility]ENTERA [id number] [place] [address] [place]#### 2132-9, 2276-4, 86618-5 ####[facility] LABCLIA [id number] [place] [id number] [place] CBC W Auto Differential pane l (Bld)on 01-03-2025 Basophils (Bld) [#/Vol] [facility] Basophils/100 WBC (Bld) 0.2 % [facility] Differential cell count method Nom (Bld) Auto [facility] Eosinophils (Bld) [#/Vol] 0.11 10*3/uL [facility] Eosinophils/100 WBC (Bld) 2.2 % [facility] Erythrocyte distribution width (RBC) [Ratio] 14.6 % 11.5 - 15.0 % [facility] Hematocrit (Bld) [Volume fraction] 27.3 % Low 36.0 - 46.0 % [facility] Hemoglobin (Bld) [Mass/Vol] 9.3 g/dL Low 11.5 - 15.5 g/dL [facility] Immature granulocytes (Bld) [#/Vol] [facility] Immature granulocytes/100 WBC (Bld) 0.4 % [facility] Interpretation and review of laboratory results Abnormal [facility] Lymphocytes (Bld) [#/Vol] 0.7 10*3/uL Low [facility] Lymphocytes/100 WBC (Bld) 14.2 % [facility] MCH (RBC) [Entitic mass] 37.8 pg High 26.0 - 34.0 pg [facility] MCHC (RBC) [Mass/Vol] 34.1 g/dL 30.5 - 36.0 g/dL [facility] MCV (RBC) [Entitic vol] 111 fL High 80.0 - 100.0 fL [facility] Monocytes (Bld) [#/Vol] 0.39 10*3/uL [facility] Monocytes/100 WBC (Bld) 7.9 % [facility] Neutrophils (Bld) [#/Vol] 3.69 10*3/uL [facility] Neutrophils/100 WBC (Bld) 75.1 % [facility] Nucleated RBC (Bld) [#/Vol] [facility] Nucleated RBC/100 WBC (Bld) [Ratio] 0 % /100 WBC [facility] Platelet mean volume (Bld) [Entitic vol] 10.9 fL 9.0 - 12.7 fL [facility] Platelets (Bld) [#/Vol] 148 10*3/uL Low [facility] RBC (Bld) [#/Vol] 2.46 10*6/uL Low 3.90 - 5.2 0 m/uL [facility] WBC (Bld) [#/Vol] 4.92 10*3/uL [facility] Basophils (Bld) [#/Vol] 10*3/uL Normal <0.11 [facility] Comment on above: Order Comment: Speci men Type: BLOOD SPECIMENOrdering Facility: [facility] Address: [address] [place] [address] Performed By: #### 5 7021-8 ####[facility] [id number] [place] [address] [place] Basophils/100 WBC (Bld) 0.2 % Normal [facility] Comment on above: Order Comment: Speci men Type: BLOOD SPECIMENOrdering Facility: [facility] Address: [address] [place] [address] Performed By: #### 5 7021-8 ####[facility] [id number] [place] [address] [place] Differential cell count method Nom (Bld) Auto Normal [facility] Comment on above: Order Comment: Speci men Type: BLOOD SPECIMENOrdering Facility: [facility] Address: [address] [place] [address] Performed By: #### 5 7021-8 ####[facility] [id number] [place] [address] [place] Eosinophils (Bld) [#/Vol] 0.11 10*3/uL Normal <0.46 [facility] Comment on above: Order Comment: Speci men Type: BLOOD SPECIMENOrdering Facility: [facility] Address: [address] [place] [address] Performed By: #### 5 7021-8 ####[facility] MILLKEATONWNCLIA [id number] [place] [address] [place] Eosinophils/100 WBC (Bld) 2.2 % Normal [facility] Comment on above: Order Comment: Speci men Type: BLOOD SPECIMENOrdering Facility: [facility] Address: [address] [place] [address] Performed By: #### 5 7021-8 ####[facility] MILLWNCLIA [id number] [place] [address] [place] Erythrocyte distribution width (RBC) [Ratio] 14.6 % Normal 11.5-15.0 [facility] Comment on above: Order Comment: Speci men Type: BLOOD SPECIMENOrdering Facility: [facility] Address: [address] [place] [address] Performed By: #### 5 7021-8 ####[facility]ITALNCLIA [id number] [place] [address] [place] Hematocrit (Bld) [Volume fraction] 27.3 % Low 36.0-46.0 [facility] Comment on above: Order Comment: Speci men Type: BLOOD SPECIMENOrdering Facility: [facility] Address: [address] [place] [address] Performed By: #### 5 7021-8 ####[facility] JARONWNCLIA [id number] [place] [address] [place] Hemoglobin (Bld) [Mass/Vol] 9.3 g/dL Low 11.5-15.5 [facility] Comment on above: Order Comment: Speci men Type: BLOOD SPECIMENOrdering Facility: [facility] Address: [address] [place] [address] Performed By: #### 5 7021-8 ####[facility] HOSPITALBANGLIA [id number] [place] [address] [place] Immature granulocytes (Bld) [#/Vol] 10*3/uL Normal <0.10 [facility] Comment on above: Order Comment: Speci men Type: BLOOD SPECIMENOrdering Facility: [facility] Address: [address] [place] [address] Performed By: #### 5 7021-8 ####[facility] [id number] [place] [address] [place] Immature granulocytes/100 WBC (Bld) 0.4 % Normal [facility] Comment on above: Order Comment: Speci men Type: BLOOD SPECIMENOrdering Facility: [facility] Address: [address] [place] [address] Performed By: #### 5 7021-8 ####[facility] [id number] [place] [address] [place] Lymphocytes (Bld) [#/Vol] 0.70 10*3/uL Low 1.00-4.00 [facility] Comment on above: Order Comment: Speci men Type: BLOOD SPECIMENOrdering Facility: [facility] Address: [address] [place] [address] Performed By: #### 5 7021-8 ####[facility] [id number] [place] [address] [place] Lymphocytes/100 WBC (Bld) 14.2 % Normal [facility] Comment on above: Order Comment: Speci men Type: BLOOD SPECIMENOrdering Facility: [facility] Address: [address] [place] [address] Performed By: #### 5 7021-8 ####[facility] [id number] [place] [address] [place] MCH (RBC) [Entitic mass] 37.8 pg High 26.0-34.0 [facility] Comment on above: Order Comment: Speci men Type: BLOOD SPECIMENOrdering Facility: [facility] Address: [address] [place] [address] Performed By: #### 5 7021-8 ####[facility] JARONWALNUT SPRINGSNCJASE [id number] [place] [address] [place] MCHC (RBC) [Mass/Vol] 34.1 g/dL Normal 30.5-36.0 [facility] Comment on above: Order Comment: Speci men Type: BLOOD SPECIMENOrdering Facility: [facility] Address: [address] [place] [address] Performed By: #### 5 7021-8 ####[facility]PITALNCJORD[facility] [id number] [place] [address] [place] MCV (RBC) [Entitic vol] 111.0 fL High 80.0-100.0 [facility] Comment on above: Order Comment: Speci men Type: BLOOD SPECIMENOrdering Facility: [facility] Address: [address] [place] [address] Performed By: #### 5 7021-8 ####[facility]PITALNCLIA [id number] [place] [address] [place] Monocytes (Bld) [#/Vol] 0.39 10*3/uL Normal <0.87 [facility] Comment on above: Order Comment: Speci men Type: BLOOD SPECIMENOrdering Facility: [facility] Address: [address] [place] [address] Performed By: #### 5 7021-8 ####[facility]ENTERA [id number] [place] [address] [place] Monocytes/100 WBC (Bld) 7.9 % Normal [facility] Comment on above: Order Comment: Speci men Type: BLOOD SPECIMENOrdering Facility: [facility] Address: [address] [place] [address] Performed By: #### 5 7021-8 ####[facility] MILLTOWNCLIA [id number] [place] [address] [place] Neutrophils (Bld) [#/Vol] 3.69 10*3/uL Normal 1.45-7.50 [facility] Comment on above: Order Comment: Speci men Type: BLOOD SPECIMENOrdering Facility: [facility] Address: [address] [place] [address] Performed By: #### 5 7021-8 ####[facility] MILLWNCLIA [id number] [place] [address] [place] Neutrophils/100 WBC (Bld) 75.1 % Normal [facility] Comment on above: Order Comment: Speci men Type: BLOOD SPECIMENOrdering Facility: [facility] Address: [address] [place] [address] Performed By: #### 5 7021-8 ####[facility]PITALLIA [id number] [place] [address] [place] Nucleated RBC (Bld) [#/Vol] 10*3/uL Normal <0.01 [facility] Comment on above: Order Comment: Speci men Type: BLOOD SPECIMENOrdering Facility: [facility] Address: [address] [place] [address] Performed By: #### 5 7021-8 ####[facility] MILLTOWNCLIA [id number] [place] [address] [place] Nucleated RBC/100 WBC (Bld) [Ratio] 0.0 /100 WBC Normal [facility] Comment on above: Order Comment: Speci men Type: BLOOD SPECIMENOrdering Facility: [facility] Address: [address] [place] [address] Performed By: #### 5 7021-8 ####[facility] MILLWNCLIA [id number] [place] [address] [place] Platelet mean volume (Bld) [Entitic vol] 10.9 fL Normal 9.0-12.7 [facility] Comment on above: Order Comment: Speci men Type: BLOOD SPECIMENOrdering Facility: [facility] Address: [address] [place] [address] Performed By: #### 5 7021-8 ####[facility] HOSPITALJASE [id number] [place] [address] [place] Platelets (Bld) [#/Vol] 148 10*3/uL Low 150-400 [facility] Comment on above: Order Comment: Speci men Type: BLOOD SPECIMENOrdering Facility: [facility] Address: [address] [place] [address] Performed By: #### 5 7021-8 ####[facility]OSPITALNCJORD[facility] [id number] [place] [address] [place] RBC (Bld) [#/Vol] 2.46 10*6/uL Low 3.90-5.20 [facility] Comment on above: Order Comment: Speci men Type: BLOOD SPECIMENOrdering Facility: [facility] Address: [address] [place] [address] Performed By: #### 5 7021-8 ####[facility]OSPITALNCLIA [id number] [place] [address] [place] WBC (Bld) [#/Vol] 4.92 10*3/uL Normal 3.70-11.00 [facility] Comment on above: Order Comment: Speci men Type: BLOOD SPECIMENOrdering Facility: [facility] Address: [address] [place] [address] Performed By: #### 5 7021-8 ####[facility] [id number] [place] [address] [place] Cancer Ag125 SerPl-aCncon 06 -12-2025 Cancer Ag 125 Qn 30 [arb'U]/mL Normal <39 [facility] Comment on above: Order Comment: Speci men Type: BLOOD SPECIMENOrdering Facility: [facility] Address: [address] [place] [address] Result Comment: CA 1 25 test methodology [...] (CA 125 II) [package insert V 1.0 [place]]. [employer], [place], [place] (April 2015) Performed By: #### 1 0334-1 ####[facility] LABCLIA [id number] [place] [address] [place] CNOVSPon 11-30-2024 CNOVSP Visit (SP) Office (ISSAYNONPOB) -- AMIRAH REED ([phone]) 1950 F Date Time Provider Department 11/30/24 1:30 PM AMBAR VILCHIS During your visit today, we recorded the following information about you: Temperature Pulse Blood pressure Weight 98.1 degrees 65/minute 177/76 51.7 kg Ambar Vilchis MD 11/30/2024 1:56 PM Signed Gynecologic Oncology Note [facility] Chief complaint: Ovarian cancer surveillance HPI: This [...] discussed with the Patient or Patient's Authorized Personnel Officer. As applicable, any other physician, advance practice provider, medical student, or other health professional student that will be observing or involved in the sensitive examination for educational or training purposes was discussed with the Patient or Authorized Personnel Officer. The Patient or Authorized Personnel Officer has agreed to proceed with the sensitive [...] Son aware but has not tested yet Ambar Vilchis MD, MPH Gynecologic Oncologist Medical Decision Making: Problems: Moderate: 2+ stable chronic illnesses Data: Unique test result(s) reviewed: 1 Risk: Low: Low risk from testing/treatment Medical Decision Making Level: 3 - Low Referring Provider: AMBAR VILCHIS [[id number]] Allergies As of Date: 11/30/2024 Noted Allergy Reaction ERYTHROMYCIN 02/09/2008 6 - Diarrhea 8 - GI Upset Comments: Abdominal cramping PENICILLINS 02/09/2008 16 - Unknown Date Reviewed: 11/30/2024 Reviewed by: Ambar Vilchis MD - Fully Assessed Reason for Visit: [...] allergic conjunctiv (more content not included)... Normal [facility] CBC W Auto Differential pane l (Bld)on 11-29-2024 Basophils (Bld) [#/Vol] [facility] Basophils/100 WBC (Bld) 0.4 % [facility] Differential cell count method Nom (Bld) Auto [facility] Eosinophils (Bld) [#/Vol] 0.13 10*3/uL [facility] Eosinophils/100 WBC (Bld) 2.4 % [facility] Erythrocyte distribution width (RBC) [Ratio] 14.6 % 11.5 - 15.0 % [facility] Hematocrit (Bld) [Volume fraction] 30.1 % Low 36.0 - 46.0 % [facility] Hemoglobin (Bld) [Mass/Vol] 10.3 g/dL Low 11.5 - 15.5 g/dL [facility] Immature granulocytes (Bld) [#/Vol] [facility] Immature granulocytes/100 WBC (Bld) 0 % [facility] Interpretation and review of laboratory results Abnormal [facility] Lymphocytes (Bld) [#/Vol] 0.91 10*3/uL Low [facility] Lymphocytes/100 WBC (Bld) 16.8 % [facility] MCH (RBC) [Entitic mass] 38 pg High 26.0 - 34.0 pg [facility] MCHC (RBC) [Mass/Vol] 34.2 g/dL 30.5 - 36.0 g/dL [facility] MCV (RBC) [Entitic vol] 111.1 fL High 80.0 - 100.0 fL [facility] Monocytes (Bld) [#/Vol] 0.54 10*3/uL [facility] Monocytes/100 WBC (Bld) 10 % [facility] Neutrophils (Bld) [#/Vol] 3.82 10*3/uL [facility] Neutrophils/100 WBC (Bld) 70.4 % [facility] Nucleated RBC (Bld) [#/Vol] [facility] Nucleated RBC/100 WBC (Bld) [Ratio] 0 % /100 WBC [facility] Platelet mean volume (Bld) [Entitic vol] 10.9 fL 9.0 - 12.7 fL [facility] Platelets (Bld) [#/Vol] 149 10*3/uL Low [facility] RBC (Bld) [#/Vol] 2.71 10*6/uL Low 3.90 - 5.2 0 m/uL [facility] WBC (Bld) [#/Vol] 5.42 10*3/uL [facility] Basophils (Bld) [#/Vol] 10*3/uL Normal <0.11 [facility] Comment on above: Order Comment: Speci men Type: BLOOD SPECIMENOrdering Facility: [facility] Address: [address] [place] [address] Performed By: #### 5 7021-8 ####[facility] MILLTOWNCLIA [id number] [place] [address] [place] Basophils/100 WBC (Bld) 0.4 % Normal [facility] Comment on above: Order Comment: Speci men Type: BLOOD SPECIMENOrdering Facility: [facility] Address: [address] [place] [address] Performed By: #### 5 7021-8 ####[facility]PITALLIA [id number] [place] [address] [place] Differential cell count method Nom (Bld) Auto Normal [facility] Comment on above: Order Comment: Speci men Type: BLOOD SPECIMENOrdering Facility: [facility] Address: [address] [place] [address] Performed By: #### 5 7021-8 ####[facility] MILLWNCLIA [id number] [place] [address] [place] Eosinophils (Bld) [#/Vol] 0.13 10*3/uL Normal <0.46 [facility] Comment on above: Order Comment: Speci men Type: BLOOD SPECIMENOrdering Facility: [facility] Address: [address] [place] [address] Performed By: #### 5 7021-8 ####[facility] MILLWNCLIA [id number] [place] [address] [place] Eosinophils/100 WBC (Bld) 2.4 % Normal [facility] Comment on above: Order Comment: Speci men Type: BLOOD SPECIMENOrdering Facility: [facility] Address: [address] [place] [address] Performed By: #### 5 7021-8 ####[facility] HOSPITALNCA [id number] [place] [address] [place] Erythrocyte distribution width (RBC) [Ratio] 14.6 % Normal 11.5-15.0 [facility] Comment on above: Order Comment: Speci men Type: BLOOD SPECIMENOrdering Facility: [facility] Address: [address] [place] [address] Performed By: #### 5 7021-8 ####[facility]OSPITALNCJORD[facility] [id number] [place] [address] [place] Hematocrit (Bld) [Volume fraction] 30.1 % Low 36.0-46.0 [facility] Comment on above: Order Comment: Speci men Type: BLOOD SPECIMENOrdering Facility: [facility] Address: [address] [place] [address] Performed By: #### 5 7021-8 ####[facility] HOSPITALNCLI [id number] [place] [address] [place] Hemoglobin (Bld) [Mass/Vol] 10.3 g/dL Low 11.5-15.5 [facility] Comment on above: Order Comment: Speci men Type: BLOOD SPECIMENOrdering Facility: [facility] Address: [address] [place] [address] Performed By: #### 5 7021-8 ####[facility]OSPITALNCJORD[facility] [id number] [place] [address] [place] Immature granulocytes (Bld) [#/Vol] 10*3/uL Normal <0.10 [facility] Comment on above: Order Comment: Speci men Type: BLOOD SPECIMENOrdering Facility: [facility] Address: [address] [place] [address] Performed By: #### 5 7021-8 ####[facility] HOSPITALYANIRA [id number] [address] STATES [facility] Immature granulocytes/100 WBC (Bld) 0.0 % Normal [facility] Comment on above: Order Comment: Speci men Type: BLOOD SPECIMENOrdering Facility: [facility] Address: [address] [place] [address] Performed By: #### 5 7021-8 ####[facility] [id number] [place] [address] [place] Lymphocytes (Bld) [#/Vol] 0.91 10*3/uL Low 1.00-4.00 [facility] Comment on above: Order Comment: Speci men Type: BLOOD SPECIMENOrdering Facility: [facility] Address: [address] [place] [address] Performed By: #### 5 7021-8 ####[facility] [id number] [address] STATES [facility] Lymphocytes/100 WBC (Bld) 16.8 % Normal [facility] Comment on above: Order Comment: Speci men Type: BLOOD SPECIMENOrdering Facility: [facility] Address: [address] [place] [address] Performed By: #### 5 7021-8 ####[facility] [id number] [place] [address] [place] MCH (RBC) [Entitic mass] 38.0 pg High 26.0-34.0 [facility] Comment on above: Order Comment: Speci men Type: BLOOD SPECIMENOrdering Facility: [facility] Address: [address] [place] [address] Performed By: #### 5 7021-8 ####[facility] HOSPITALNCLIA [id number] [place] [address] [place] MCHC (RBC) [Mass/Vol] 34.2 g/dL Normal 30.5-36.0 [facility] Comment on above: Order Comment: Speci men Type: BLOOD SPECIMENOrdering Facility: [facility] Address: [address] [place] [address] Performed By: #### 5 7021-8 ####[facility] [id number] [place] [address] [place] MCV (RBC) [Entitic vol] 111.1 fL High 80.0-100.0 [facility] Comment on above: Order Comment: Speci men Type: BLOOD SPECIMENOrdering Facility: [facility] Address: [address] [place] [address] Performed By: #### 5 7021-8 ####[facility] [id number] [place] [address] [place] Monocytes (Bld) [#/Vol] 0.54 10*3/uL Normal <0.87 [facility] Comment on above: Order Comment: Speci men Type: BLOOD SPECIMENOrdering Facility: [facility] Address: [address] [place] [address] Performed By: #### 5 7021-8 ####[facility] CENTERA [id number] [place] [address] [place] Monocytes/100 WBC (Bld) 10.0 % Normal [facility] Comment on above: Order Comment: Speci men Type: BLOOD SPECIMENOrdering Facility: [facility] Address: [address] [place] [address] Performed By: #### 5 7021-8 ####[facility] HOSPITALNCLIA [id number] [place] [address] [place] Neutrophils (Bld) [#/Vol] 3.82 10*3/uL Normal 1.45-7.50 [facility] Comment on above: Order Comment: Speci men Type: BLOOD SPECIMENOrdering Facility: [facility] Address: [address] [place] [address] Performed By: #### 5 7021-8 ####[facility] CENTERWNCLIA [id number] [place] [address] [place] Neutrophils/100 WBC (Bld) 70.4 % Normal [facility] Comment on above: Order Comment: Speci men Type: BLOOD SPECIMENOrdering Facility: [facility] Address: [address] [place] [address] Performed By: #### 5 7021-8 ####[facility] [id number] [place] [address] [place] Nucleated RBC (Bld) [#/Vol] 10*3/uL Normal <0.01 [facility] Comment on above: Order Comment: Speci men Type: BLOOD SPECIMENOrdering Facility: [facility] Address: [address] [place] [address] Performed By: #### 5 7021-8 ####[facility] CENTERA [id number] [place] [address] [place] Nucleated RBC/100 WBC (Bld) [Ratio] 0.0 /100 WBC Normal [facility] Comment on above: Order Comment: Speci men Type: BLOOD SPECIMENOrdering Facility: [facility] Address: [address] [place] [address] Performed By: #### 5 7021-8 ####[facility] [id number] [place] [address] [place] Platelet mean volume (Bld) [Entitic vol] 10.9 fL Normal 9.0-12.7 [facility] Comment on above: Order Comment: Speci men Type: BLOOD SPECIMENOrdering Facility: [facility] Address: [address] [place] [address] Performed By: #### 5 7021-8 ####[facility] JARONSofyaNCLIA [id number] [place] [address] [place] Platelets (Bld) [#/Vol] 149 10*3/uL Low 150-400 [facility] Comment on above: Order Comment: Speci men Type: BLOOD SPECIMENOrdering Facility: [facility] Address: [address] [place] [address] Performed By: #### 5 7021-8 ####[facility]OSPITALNCLIA [id number] [place] [address] [place] RBC (Bld) [#/Vol] 2.71 10*6/uL Low 3.90-5.20 [facility] Comment on above: Order Comment: Speci men Type: BLOOD SPECIMENOrdering Facility: [facility] Address: [address] [place] [address] Performed By: #### 5 7021-8 ####[facility] HOSPITALNCA [id number] [address] [place] WBC (Bld) [#/Vol] 5.42 10*3/uL Normal 3.70-11.00 [facility] Comment on above: Order Comment: Speci men Type: BLOOD SPECIMENOrdering Facility: [facility] Address: [address] [place] [address] Performed By: #### 5 7021-8 ####[facility] HOSPITALNCLIA [id number] [place] [address] [place] Cancer Ag125 SerPl-aCncon Cancer Ag 125 Qn 30 [arb'U]/mL Normal <39 [facility] Comment on above: Order Comment: Speci men Type: BLOOD SPECIMENOrdering Facility: [facility] Address: [address] [place] [address] Result Comment: CA 1 25 test methodology [...] (CA 125 II) [package insert V 1.0 Swazi]. [employer], [place], [place] (April 2015) Performed By: #### 1 0334-1 ####[facility] LABCLIA [id number] [place] [address] [place] CBC W Auto Differential pane l (Bld)on 11-02-2024 Basophils (Bld) [#/Vol] [facility] Basophils/100 WBC (Bld) 0.4 % [facility] Differential cell count method Nom (Bld) Auto [facility] Eosinophils (Bld) [#/Vol] 0.1 10*3/uL [facility] Eosinophils/100 WBC (Bld) 2.2 % [facility] Erythrocyte distribution width (RBC) [Ratio] 14.6 % 11.5 - 15.0 % [facility] Hematocrit (Bld) [Volume fraction] 28 % Low 36.0 - 46.0 % [facility] Hemoglobin (Bld) [Mass/Vol] 9.6 g/dL Low 11.5 - 15.5 g/dL [facility] Immature granulocytes (Bld) [#/Vol] [facility] Immature granulocytes/100 WBC (Bld) 0.2 % [facility] Interpretation and review of laboratory results Abnormal [facility] Lymphocytes (Bld) [#/Vol] 0.84 10*3/uL Low [facility] Lymphocytes/100 WBC (Bld) 18.7 % [facility] MCH (RBC) [Entitic mass] 37.8 pg High 26.0 - 34.0 pg [facility] MCHC (RBC) [Mass/Vol] 34.3 g/dL 30.5 - 36.0 g/dL [facility] MCV (RBC) [Entitic vol] 110.2 fL High 80.0 - 100.0 fL [facility] Monocytes (Bld) [#/Vol] 0.34 10*3/uL NINF [facility] Monocytes/100 WBC (Bld) 7.6 % [facility] Neutrophils (Bld) [#/Vol] 3.19 10*3/uL [facility] Neutrophils/100 WBC (Bld) 70.9 % [facility] Nucleated RBC (Bld) [#/Vol] NINF [facility] Nucleated RBC/100 WBC (Bld) [Ratio] 0 % /100 WBC [facility] Platelet mean volume (Bld) [Entitic vol] 10.7 fL 9.0 - 12.7 fL [facility] Platelets (Bld) [#/Vol] 144 10*3/uL Low [facility] RBC (Bld) [#/Vol] 2.54 10*6/uL Low 3.90 - 5.2 0 m/uL [facility] WBC (Bld) [#/Vol] 4.5 10*3/uL [facility] Basophils (Bld) [#/Vol] 10*3/uL Normal <0.11 [facility] Comment on above: Order Comment: Speci men Type: BLOOD SPECIMENOrdering Facility: [facility] Address: [address] [place] [address] Performed By: #### 5 7021-8 ####[facility] [id number] [place] [address] [place] Basophils/100 WBC (Bld) 0.4 % Normal [facility] Comment on above: Order Comment: Speci men Type: BLOOD SPECIMENOrdering Facility: [facility] Address: [address] [place] [address] Performed By: #### 5 7021-8 ####[facility] [id number] [place] [address] [place] Differential cell count method Nom (Bld) Auto Normal [facility] Comment on above: Order Comment: Speci men Type: BLOOD SPECIMENOrdering Facility: [facility] Address: [address] [place], [place] [address] Performed By: #### 5 7021-8 ####[facility] MILLWNCLIA [id number] [place] [address] [place] Eosinophils (Bld) [#/Vol] 0.10 10*3/uL Normal <0.46 [facility] Comment on above: Order Comment: Speci men Type: BLOOD SPECIMENOrdering Facility: [facility] Address: [address] [place] [address] Performed By: #### 5 7021-8 ####[facility]PITALNCLIA [id number] [place] [address] [place] Eosinophils/100 WBC (Bld) 2.2 % Normal [facility] Comment on above: Order Comment: Speci men Type: BLOOD SPECIMENOrdering Facility: [facility] Address: [address] [place] [address] Performed By: #### 5 7021-8 ####[facility]PITALLIA [id number] [place] [address] [place] Erythrocyte distribution width (RBC) [Ratio] 14.6 % Normal 11.5-15.0 [facility] Comment on above: Order Comment: Speci men Type: BLOOD SPECIMENOrdering Facility: [facility] Address: [address] [place] [address] Performed By: #### 5 7021-8 ####[facility]OSPITALNCLIA [id number] [place] [address] [place] Hematocrit (Bld) [Volume fraction] 28.0 % Low 36.0-46.0 [facility] Comment on above: Order Comment: Speci men Type: BLOOD SPECIMENOrdering Facility: [facility] Address: [address] [place] [address] Performed By: #### 5 7021-8 ####[facility]PITALLIA [id number] [place] [address] [place] Hemoglobin (Bld) [Mass/Vol] 9.6 g/dL Low 11.5-15.5 [facility] Comment on above: Order Comment: Speci men Type: BLOOD SPECIMENOrdering Facility: [facility] Address: [address] [place] [address] Performed By: #### 5 7021-8 ####[facility]PITALLIA [id number] [place] [address] [place] Immature granulocytes (Bld) [#/Vol] 10*3/uL Normal <0.10 [facility] Comment on above: Order Comment: Speci men Type: BLOOD SPECIMENOrdering Facility: [facility] Address: [address] [place] [address] Performed By: #### 5 7021-8 ####[facility] [id number] [place] [address] [place] Immature granulocytes/100 WBC (Bld) 0.2 % Normal [facility] Comment on above: Order Comment: Speci men Type: BLOOD SPECIMENOrdering Facility: [facility] Address: [address] [place] [address] Performed By: #### 5 7021-8 ####[facility]PITALLIA [id number] [place] [address] [place] Lymphocytes (Bld) [#/Vol] 0.84 10*3/uL Low 1.00-4.00 [facility] Comment on above: Order Comment: Speci men Type: BLOOD SPECIMENOrdering Facility: [facility] Address: [address] [place] [address] Performed By: #### 5 7021-8 ####[facility]PITALLIA [id number] [place] [address] [place] Lymphocytes/100 WBC (Bld) 18.7 % Normal [facility] Comment on above: Order Comment: Speci men Type: BLOOD SPECIMENOrdering Facility: [facility] Address: [address] [place] [address] Performed By: #### 5 7021-8 ####[facility] JARONSofyaNCJASE [id number] [place] [address] [place] MCH (RBC) [Entitic mass] 37.8 pg High 26.0-34.0 [facility] Comment on above: Order Comment: Speci men Type: BLOOD SPECIMENOrdering Facility: [facility] Address: [address] [place] [address] Performed By: #### 5 7021-8 ####[facility] HOSPITALNCJASE [id number] [place] [address] [place] MCHC (RBC) [Mass/Vol] 34.3 g/dL Normal 30.5-36.0 [facility] Comment on above: Order Comment: Speci men Type: BLOOD SPECIMENOrdering Facility: [facility] Address: [address] [place] [address] Performed By: #### 5 7021-8 ####[facility]OSPITALNCLIA [id number] [place] [address] [place] MCV (RBC) [Entitic vol] 110.2 fL High 80.0-100.0 [facility] Comment on above: Order Comment: Speci men Type: BLOOD SPECIMENOrdering Facility: [facility] Address: [address] [place] [address] Performed By: #### 5 7021-8 ####[facility]OSPITALNCLIA [id number] [place] [address] [place] Monocytes (Bld) [#/Vol] 0.34 10*3/uL Normal <0.87 [facility] Comment on above: Order Comment: Speci men Type: BLOOD SPECIMENOrdering Facility: [facility] Address: [address] [place] [address] Performed By: #### 5 7021-8 ####[facility] MILLWNCLIA [id number] [place] [address] [place] Monocytes/100 WBC (Bld) 7.6 % Normal [facility] Comment on above: Order Comment: Speci men Type: BLOOD SPECIMENOrdering Facility: [facility] Address: [address] [place] [address] Performed By: #### 5 7021-8 ####[facility]PITALNCLIA [id number] [place] [address] [place] Neutrophils (Bld) [#/Vol] 3.19 10*3/uL Normal 1.45-7.50 [facility] Comment on above: Order Comment: Speci men Type: BLOOD SPECIMENOrdering Facility: [facility] Address: [address] [place] [address] Performed By: #### 5 7021-8 ####[facility]ITALLIA [id number] [place] [address] [place] Neutrophils/100 WBC (Bld) 70.9 % Normal [facility] Comment on above: Order Comment: Speci men Type: BLOOD SPECIMENOrdering Facility: [facility] Address: [address] [place] [address] Performed By: #### 5 7021-8 ####[facility]ITALLIA [id number] [place] [address] [place] Nucleated RBC (Bld) [#/Vol] 10*3/uL Normal <0.01 [facility] Comment on above: Order Comment: Speci men Type: BLOOD SPECIMENOrdering Facility: [facility] Address: [address] [place] [address] Performed By: #### 5 7021-8 ####[facility]OSPITALNCLIA [id number] [place] [address] [place] Nucleated RBC/100 WBC (Bld) [Ratio] 0.0 /100 WBC Normal [facility] Comment on above: Order Comment: Speci men Type: BLOOD SPECIMENOrdering Facility: [facility] Address: [address] [place] [address] Performed By: #### 5 7021-8 ####[facility] HOSPITALNCNICOLETTE [id number] [place] [address] [place] Platelet mean volume (Bld) [Entitic vol] 10.7 fL Normal 9.0-12.7 [facility] Comment on above: Order Comment: Speci men Type: BLOOD SPECIMENOrdering Facility: [facility] Address: [address] [place] [address] Performed By: #### 5 7021-8 ####[facility]OSPITALNCJORD[facility] [id number] [place] [address] [place] Platelets (Bld) [#/Vol] 144 10*3/uL Low 150-400 [facility] Comment on above: Order Comment: Speci men Type: BLOOD SPECIMENOrdering Facility: [facility] Address: [address] [place] [address] Performed By: #### 5 7021-8 ####[facility] HOSPITALNCLI [id number] [place] [address] [place] RBC (Bld) [#/Vol] 2.54 10*6/uL Low 3.90-5.20 [facility] Comment on above: Order Comment: Speci men Type: BLOOD SPECIMENOrdering Facility: [facility] Address: [address] [place] [address] Performed By: #### 5 7021-8 ####[facility]OSPITALNCLIA [id number] [place] [address] [place] WBC (Bld) [#/Vol] 4.50 10*3/uL Normal 3.70-11.00 [facility] Comment on above: Order Comment: Speci men Type: BLOOD SPECIMENOrdering Facility: [facility] Address: [address] [place] [address] Performed By: #### 5 7021-8 ####[facility] HOSPITALLIA [id number] [place] [address] [place] CNOVSPon 11-02-2024 CNOVSP Normal [facility] CNPNon 11-02-2024 CNPN Normal [facility] Cancer Ag125 SerPl-aCncon Cancer Ag 125 Qn 28 [arb'U]/mL Normal <39 [facility] Comment on above: Order Comment: Kurti men Type: BLOOD SPECIMENOrdering Facility: [facility] Address: [address] [place] [address] Result Comment: CA 1 25 test methodology [...] (CA 125 II) [package insert V 1.0 Swazi]. [employer] [facility], [place], [place] (April 2015) Performed By: #### 1 0334-1 ####[facility] LABCLIA [id number] [address] [place] Comprehensive metabolic 2000 panelOrdered By: Sophia Hall on 11-02-2024 Albumin [Mass/Vol] 4.3 g/dL 3.9 - 4.9 g/dL [facility] ALP [Catalytic activity/Vol] 95 U/L 34 - 123 U/L [facility] ALT [Catalytic activity/Vol] 23 U/L 7 - 38 U/L [facility] Anion gap [Moles/Vol] 8 mmol/L 8 - 15 mmol/L [facility] AST [Catalytic activity/Vol] 29 U/L 13 - 35 U/L [facility] Bilirubin [Mass/Vol] 0.8 mg/dL 0.2 - 1 .3 mg/dL [facility] Calcium [Mass/Vol] 10.1 mg/dL 8.5 - 10. 2 mg/dL [facility] Chloride [Moles/Vol] 105 mmol/L 98 - 10 7 mmol/L [facility] CO2 [Moles/Vol] 28 mmol/L 22 - 30 mmol/L [facility] Creatinine [Mass/Vol] 1.28 mg/dL High 0.58 - 0.96 mg/dL [facility] GFR/1.73 sq M.predicted among non-blacks MDRD (S/P/Bld) [Vol rate/Area] 44 mL/min/{1.73_m2} Low - PINF [facility] Comment on above: Estimated Glomerular Filtration [...] 130 mg/dL High 74 - 99 mg/dL [facility] Comment on above: The [place] Diabete [place] Association (ADA) provides guidance for [...] Standards of Medical Care in Diabetes 2016, [place] Diabetes Association. Diabetes Care. 2016.39(Suppl 1). Interpretation and review of laboratory results Abnormal [facility] Potassium [Moles/Vol] 4.2 mmol/L 3.7 - 5.1 mmol/L [facility] Protein [Mass/Vol] 6.5 g/dL 6.3 - 8.0 g/dL [facility] Sodium [Moles/Vol] 141 mmol/L 136 - 144 mmol/L [facility] Urea nitrogen [Mass/Vol] 35 mg/dL High 7 - 21 mg/dL [facility] Comprehensive metabolic 2000 panelon 11-02-2024 Albumin [Mass/Vol] 4.3 g/dL Normal 3.9-4.9 [facility] Comment on above: Order Comment: Speci men Type: BLOOD SPECIMENOrdering Facility: [facility] Address: [address] [place] [address] Performed By: #### 2 4323-8 ####[facility] CENTERWILLIA [id number] [place] [address] [place] ALP [Catalytic activity/Vol] 95 U/L Normal 34-123 [facility] Comment on above: Order Comment: Speci men Type: BLOOD SPECIMENOrdering Facility: [facility] Address: [address] [place] [address] Performed By: #### 2 4323-8 ####[facility]ITALNCLIA [id number] [place] [address] [place] ALT [Catalytic activity/Vol] 23 U/L Normal 7-38 [facility] Comment on above: Order Comment: Speci men Type: BLOOD SPECIMENOrdering Facility: [facility] Address: [address] [place] [address] Performed By: #### 2 4323-8 ####[facility] [id number] [place] [address] [place] Anion gap [Moles/Vol] 8 mmol/L Normal 8-15 [facility] Comment on above: Order Comment: Speci men Type: BLOOD SPECIMENOrdering Facility: [facility] Address: [address] [place] [address] Performed By: #### 2 4323-8 ####[facility]OSPITALNCLIA [id number] [place] [address] [place] AST [Catalytic activity/Vol] 29 U/L Normal 13-35 [facility] Comment on above: Order Comment: Speci men Type: BLOOD SPECIMENOrdering Facility: [facility] Address: [address] [place] [address] Performed By: #### 2 4323-8 ####[facility] [id number] [place] [address] [place] Bilirubin [Mass/Vol] 0.8 mg/dL Normal 0.2-1.3 [facility] Comment on above: Order Comment: Speci men Type: BLOOD SPECIMENOrdering Facility: [facility] Address: [address] [place] [address] Performed By: #### 2 4323-8 ####[facility] [id number] [place] [address] [place] Calcium [Mass/Vol] 10.1 mg/dL Normal 8.5-10.2 [facility] Comment on above: Order Comment: Speci men Type: BLOOD SPECIMENOrdering Facility: [facility] Address: [address] [place] [address] Performed By: #### 2 4323-8 ####[facility] [id number] [place] [address] [place] Chloride [Moles/Vol] 105 mmol/L Normal 98-107 [facility] Comment on above: Order Comment: Speci men Type: BLOOD SPECIMENOrdering Facility: [facility] Address: [address] [place] [address] Performed By: #### 2 4323-8 ####[facility] [id number] [place] [address] [place] CO2 [Moles/Vol] 28 mmol/L Normal 22-30 [facility] Comment on above: Order Comment: Speci men Type: BLOOD SPECIMENOrdering Facility: [facility] Address: [address] [place] [address] Performed By: #### 2 4323-8 ####[facility] [id number] [place] [address] [place] Creatinine [Mass/Vol] 1.28 mg/dL High 0.58-0.96 [facility] Comment on above: Order Comment: Riaz men Type: BLOOD SPECIMENOrdering Facility: [facility] Address: [address] [place] [address] Performed By: #### 2 4323-8 ####[facility] [id number] [place] [address] [place] Creatinine and Glomerular filtration rate.predicted panel (S/P/Bld) 44 mL/min/1.73m??? Low >=60 [facility] Comment on above: Order Comment: Riaz hernández Type: BLOOD SPECIMENOrdering Facility: [facility] Address: [address] [place] [address] Result Comment: Fernanda mated Glomerular Filtration Rate [...] actual GFR. Performed By: #### 2 4323-8 ####[facility] [id number] [place] [address] [place] Glucose [Mass/Vol] 130 mg/dL High 74-99 [facility] Comment on above: Order Comment: Riaz hernández Type: BLOOD SPECIMENOrdering Facility: [facility] Address: [address] [place] [address] Result Comment: The [place] Diabetes Association (ADA) provides guidance for cutoff [...] Standards of Medical Care in Diabetes 2016, [place] Diabetes Association. Diabetes Care. 2016.39(Suppl 1). Performed By: #### 2 4323-8 ####[facility] YADI MILLTOWNCLIA [id number] [place] [address] [place] Potassium [Moles/Vol] 4.2 mmol/L Normal 3.7-5.1 [facility] Comment on above: Order Comment: Speci men Type: BLOOD SPECIMENOrdering Facility: [facility] Address: [address] [place] [address] Performed By: #### 2 4323-8 ####[facility] CENTERWNCLIA [id number] [place] [address] [place] Protein [Mass/Vol] 6.5 g/dL Normal 6.3-8.0 [facility] Comment on above: Order Comment: Speci men Type: BLOOD SPECIMENOrdering Facility: [facility] Address: [address] [place] [address] Performed By: #### 2 4323-8 ####[facility] CENTERWNCLIA [id number] [place] [address] [place] Sodium [Moles/Vol] 141 mmol/L Normal 136-144 [facility] Comment on above: Order Comment: Speci men Type: BLOOD SPECIMENOrdering Facility: [facility] Address: [address] [place] [address] Performed By: #### 2 4323-8 ####[facility] MILLWNCLIA [id number] [place] [address] [place] Urea nitrogen [Mass/Vol] 35 mg/dL High 7-21 [facility] Comment on above: Order Comment: Speci men Type: BLOOD SPECIMENOrdering Facility: [facility] Address: [address] [place] [address] Performed By: #### 2 4323-8 ####[facility] YADI WATKINSLIDarryl [id number] [place] [id number] [place] [address] [place] CNPPing 10-23-2024 CNPN Telephone [facility] -- AMIRAH REED ([id number]) 1950 F Date Time Provider Department 10/23/24 ESTUARDO LONG During your visit today, we recorded the following information about you: Estuardo Long RN 10/23/2024 11:04 AM Signed [facility] EPIC ANESTHESIA ANALYST ONE MONTH FOLLOW UP PHONE CALL PHONE [...] RN DATE: 10/23/2024 TIME: 11:03 AM CONTACT #:[phone] Allergies As of Date: 10/23/2024 Noted Allergy Reaction ERYTHROMYCIN 02/09/2008 6 - Diarrhea 8 - GI Upset Comments: Abdominal cramping PENICILLINS 02/09/2008 16 - Unknown Date Reviewed: 10/17/2024 Reviewed by: Mark Kruse II OD - Fully Assessed Reason for Visit: 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 - Hospital Follow Up [6461] Prescriptions as of 10/23/2024 - olaparib (LYNPARZA) [...] Encounter Status:Closed by ESTUARDO LONG on 10/23/24 [facility] OCT OPTIC NERVE CIRRUS OU (B OTH EYES)on 10-17-2024 [facility] Radiology Study observation (narrative) [facility] CBC W Auto Differential pane l (Bld)on 09-28-2024 Basophils (Bld) [#/Vol] [facility] Basophils/100 WBC (Bld) 0.2 % [facility] Differential cell count method Nom (Bld) Auto [facility] Eosinophils (Bld) [#/Vol] 0.12 10*3/uL [facility] Eosinophils/100 WBC (Bld) 2.8 % [facility] Erythrocyte distribution width (RBC) [Ratio] 14.6 % 11.5 - 15.0 % [facility] Hematocrit (Bld) [Volume fraction] 27.9 % Low 36.0 - 46.0 % [facility] Hemoglobin (Bld) [Mass/Vol] 9.4 g/dL Low 11.5 - 15.5 g/dL [facility] Immature granulocytes (Bld) [#/Vol] [facility] Immature granulocytes/100 WBC (Bld) 0.2 % [facility] Interpretation and review of laboratory results Abnormal [facility] Lymphocytes (Bld) [#/Vol] 0.68 10*3/uL Low [facility] Lymphocytes/100 WBC (Bld) 15.7 % [facility] MCH (RBC) [Entitic mass] 37.6 pg High 26.0 - 34.0 pg [facility] MCHC (RBC) [Mass/Vol] 33.7 g/dL 30.5 - 36.0 g/dL [facility] MCV (RBC) [Entitic vol] 111.6 fL High 80.0 - 100.0 fL [facility] Monocytes (Bld) [#/Vol] 0.48 10*3/uL NINF [facility] Monocytes/100 WBC (Bld) 11.1 % [facility] Neutrophils (Bld) [#/Vol] 3.04 10*3/uL [facility] Neutrophils/100 WBC (Bld) 70 % [facility] Nucleated RBC (Bld) [#/Vol] NINF [facility] Nucleated RBC/100 WBC (Bld) [Ratio] 0 % /100 WBC [facility] Platelet mean volume (Bld) [Entitic vol] 10.4 fL 9.0 - 12.7 fL [facility] Platelets (Bld) [#/Vol] 178 10*3/uL [facility] RBC (Bld) [#/Vol] 2.5 10*6/uL Low 3.90 - 5.2 0 m/uL [facility] WBC (Bld) [#/Vol] 4.34 10*3/uL [facility] Basophils (Bld) [#/Vol] 10*3/uL Normal <0.11 [facility] Comment on above: Order Comment: Speci men Type: BLOOD SPECIMENOrdering Facility: [facility] Address: [address] [place] [address] Performed By: #### 5 7021-8 ####[facility] [id number] [place] [address] [place] Basophils/100 WBC (Bld) 0.2 % Normal [facility] Comment on above: Order Comment: Speci men Type: BLOOD SPECIMENOrdering Facility: [facility] Address: [address] [place] [address] Performed By: #### 5 7021-8 ####[facility] [id number] [place] [address] [place] Differential cell count method Nom (Bld) Auto Normal [facility] Comment on above: Order Comment: Speci men Type: BLOOD SPECIMENOrdering Facility: [facility] Address: [address] [place] [address] Performed By: #### 5 7021-8 ####[facility] JARONSofyaNCNICOLETTEDarryl [id number] [place] [address] [place] Eosinophils (Bld) [#/Vol] 0.12 10*3/uL Normal <0.46 [facility] Comment on above: Order Comment: Speci men Type: BLOOD SPECIMENOrdering Facility: [facility] Address: [address] [place] [address] Performed By: #### 5 7021-8 ####[facility] HOSPITALHAI [id number] [place] [address] [place] Eosinophils/100 WBC (Bld) 2.8 % Normal [facility] Comment on above: Order Comment: Speci men Type: BLOOD SPECIMENOrdering Facility: [facility] Address: [address] [place] [address] Performed By: #### 5 7021-8 ####[facility] HOSPITALNCJORDAN [facility] [id number] [place] [address] [place] Erythrocyte distribution width (RBC) [Ratio] 14.6 % Normal 11.5-15.0 [facility] Comment on above: Order Comment: Speci men Type: BLOOD SPECIMENOrdering Facility: [facility] Address: [address] [place] [address] Performed By: #### 5 7021-8 ####[facility] HOSPITALNCLIA [id number] [place] [address] [place] Hematocrit (Bld) [Volume fraction] 27.9 % Low 36.0-46.0 [facility] Comment on above: Order Comment: Speci men Type: BLOOD SPECIMENOrdering Facility: [facility] Address: [address] [place] [address] Performed By: #### 5 7021-8 ####[facility] JARONWALNUT SPRINGSNCLIA [id number] [place] [address] [place] Hemoglobin (Bld) [Mass/Vol] 9.4 g/dL Low 11.5-15.5 [facility] Comment on above: Order Comment: Speci men Type: BLOOD SPECIMENOrdering Facility: [facility] Address: [address] [place] [address] Performed By: #### 5 7021-8 ####[facility] CENTERA [id number] [place] [address] [place] Immature granulocytes (Bld) [#/Vol] 10*3/uL Normal <0.10 [facility] Comment on above: Order Comment: Speci men Type: BLOOD SPECIMENOrdering Facility: [facility] Address: [address] [place] [address] Performed By: #### 5 7021-8 ####[facility] [id number] [place] [address] [place] Immature granulocytes/100 WBC (Bld) 0.2 % Normal [facility] Comment on above: Order Comment: Speci men Type: BLOOD SPECIMENOrdering Facility: [facility] Address: [address] [place] [address] Performed By: #### 5 7021-8 ####[facility] [id number] [place] [address] [place] Lymphocytes (Bld) [#/Vol] 0.68 10*3/uL Low 1.00-4.00 [facility] Comment on above: Order Comment: Speci men Type: BLOOD SPECIMENOrdering Facility: [facility] Address: [address] [place] [address] Performed By: #### 5 7021-8 ####[facility]OSPITALLI [id number] [place] [address] [place] Lymphocytes/100 WBC (Bld) 15.7 % Normal [facility] Comment on above: Order Comment: Speci men Type: BLOOD SPECIMENOrdering Facility: [facility] Address: [address] [place] [address] Performed By: #### 5 7021-8 ####[facility] HOSPITALYANIRA [id number] [place] [address] [place] MCH (RBC) [Entitic mass] 37.6 pg High 26.0-34.0 [facility] Comment on above: Order Comment: Speci men Type: BLOOD SPECIMENOrdering Facility: [facility] Address: [address] [place] [address] Performed By: #### 5 7021-8 ####[facility] HOSPITALNCJASE [id number] [place] [address] [place] MCHC (RBC) [Mass/Vol] 33.7 g/dL Normal 30.5-36.0 [facility] Comment on above: Order Comment: Speci men Type: BLOOD SPECIMENOrdering Facility: [facility] Address: [address] [place] [address] Performed By: #### 5 7021-8 ####[facility] HOSPITALNCLIA [id number] [place] [address] [place] MCV (RBC) [Entitic vol] 111.6 fL High 80.0-100.0 [facility] Comment on above: Order Comment: Speci men Type: BLOOD SPECIMENOrdering Facility: [facility] Address: [address] [place] [address] Performed By: #### 5 7021-8 ####[facility] HOSPITALNCLIA [id number] [place] [address] [place] Monocytes (Bld) [#/Vol] 0.48 10*3/uL Normal <0.87 [facility] Comment on above: Order Comment: Speci men Type: BLOOD SPECIMENOrdering Facility: [facility] Address: [address] [place] [address] Performed By: #### 5 7021-8 ####[facility] JARONSofyaNCLIA [id number] [place] [address] [place] Monocytes/100 WBC (Bld) 11.1 % Normal [facility] Comment on above: Order Comment: Speci men Type: BLOOD SPECIMENOrdering Facility: [facility] Address: [address] [place] [address] Performed By: #### 5 7021-8 ####[facility] HOSPITALNCA [id number] [place] [address] [place] Neutrophils (Bld) [#/Vol] 3.04 10*3/uL Normal 1.45-7.50 [facility] Comment on above: Order Comment: Speci men Type: BLOOD SPECIMENOrdering Facility: [facility] Address: [address] [place] [address] Performed By: #### 5 7021-8 ####[facility] CENTERA [id number] [place] [address] [place] Neutrophils/100 WBC (Bld) 70.0 % Normal [facility] Comment on above: Order Comment: Speci men Type: BLOOD SPECIMENOrdering Facility: [facility] Address: [address] [place] [address] Performed By: #### 5 7021-8 ####[facility] HOSPITALLIA [id number] [place] [address] [place] Nucleated RBC (Bld) [#/Vol] 10*3/uL Normal <0.01 [facility] Comment on above: Order Comment: Speci men Type: BLOOD SPECIMENOrdering Facility: [facility] Address: [address] [place] [address] Performed By: #### 5 7021-8 ####[facility] HOSPITALNCLIA [id number] [place] [address] [place] Nucleated RBC/100 WBC (Bld) [Ratio] 0.0 /100 WBC Normal [facility] Comment on above: Order Comment: Speci men Type: BLOOD SPECIMENOrdering Facility: [facility] Address: [address] [place] [address] Performed By: #### 5 7021-8 ####[facility] [id number] [place] [address] [place] Platelet mean volume (Bld) [Entitic vol] 10.4 fL Normal 9.0-12.7 [facility] Comment on above: Order Comment: Speci men Type: BLOOD SPECIMENOrdering Facility: [facility] Address: [address] [place] [address] Performed By: #### 5 7021-8 ####[facility] [id number] [place] [address] [place] Platelets (Bld) [#/Vol] 178 10*3/uL Normal 150-400 [facility] Comment on above: Order Comment: Speci men Type: BLOOD SPECIMENOrdering Facility: [facility] Address: [address] [place] [address] Performed By: #### 5 7021-8 ####[facility] CENTERA [id number] [place] [address] [place] RBC (Bld) [#/Vol] 2.50 10*6/uL Low 3.90-5.20 [facility] Comment on above: Order Comment: Speci men Type: BLOOD SPECIMENOrdering Facility: [facility] Address: [address] [place] [address] Performed By: #### 5 7021-8 ####[facility] HOSPITALNCJORD[facility] [id number] [place] [address] [place] WBC (Bld) [#/Vol] 4.34 10*3/uL Normal 3.70-11.00 [facility] Comment on above: Order Comment: Speci men Type: BLOOD SPECIMENOrdering Facility: [facility] Address: [address] [place] [address] Performed By: #### 5 7021-8 ####[facility] YADI [facility] HOSPITALLIA [id number] [place] [id number] [place] Cancer Ag125 SerPl-aCncon Cancer Ag 125 Qn 34 [arb'U]/mL Normal <39 [facility] Comment on above: Order Comment: Speci men Type: BLOOD SPECIMENOrdering Facility: [facility] Address: [address] [place] [address] Result Comment: CA 1 25 test methodology [...] (CA 125 II) [package insert V 1.0 Swazi]. [employer], [place], [place] (April 2015) Performed By: #### 1 0334-1 ####[facility] LABORATORYCLIA [id number] [place] [address] [place] ALLIED HEALTHon 09-06-2024 ALLIED HEALTH HNO ID: [id number] Author: ESTUARDO LONG RN Service: General Surgery Author Type: Registered Nurse Type: Allied Health Filed: 09/06/2024 10:18 Note Text: GENERAL SURGERY/ERAS EPIC ANESTHESIA ANALYST NOTE SERVICE DATE: 09/06/2024 SERVICE TIME: 10:17 [...] Miles SIGNATURE: Estuardo Long RN PATIENT NAME: Amirah Reed DATE: September 06, 2024 TIME: 10:17 AM PAGER/CONTACT #: [phone] Normal [facility] ANES POSTPROC EVALon 025 ANES POSTPROC EVAL HNO ID: [id number] Author: KEVIN NJ DO Service: Anesthesiology Author Type: Anesthesiologist Type: Anesthesia Postprocedure Evaluation Filed: 09/06/2024 15:55 Note Text: POST ANESTHESIA EVALUATION NOTE : 1950 Procedure Summary Date: 09/04/24 Room / Location: [address] [place] Anesthesia Start: 729 Anesthesia Stop: 933 Procedure: COLOSTOMY LOOP (Abdomen) [...] Documentation SIGNATURE: Kevin Nj DO PATIENT NAME: Amirah Reed DATE: September 06, 2024 TIME: 3:54 PM CSN: [id number] Normal [facility] Basic metabolic 2000 panelon 09-06-2024 Anion gap [Moles/Vol] 10 mmol/L Normal 8-15 [facility] Comment on above: Order Comment: Speci men Type: BLOOD SPECIMEN [facility] Address: [address] [place] [address] Performed By: #### 2 4321-2 #### [facility] CLIA [id number] [address] [place] Calcium [Mass/Vol] 9.0 mg/dL Normal 8.5-10.2 [facility] Comment on above: Order Comment: Speci men Type: BLOOD SPECIMEN [facility] Address: [address] [place] [address] Performed By: #### 2 4321-2 #### [facility] CLIA [id number] [address] [place] Chloride [Moles/Vol] 97 mmol/L Low 98-107 [facility] Comment on above: Order Comment: Speci men Type: BLOOD SPECIMEN [facility] Address: [address] [place] [address] Performed By: #### 2 4321-2 #### [facility] CLIA [id number] [address] [place] [address] [place] CO2 [Moles/Vol] 26 mmol/L Normal 22-30 [facility] Comment on above: Order Comment: Speci men Type: BLOOD SPECIMEN [facility] Address: [address] [place] [address] Performed By: #### 2 4321-2 #### [facility] CLIA [id number] [address] [place] [address] [place] Creatinine [Mass/Vol] 1.30 mg/dL High 0.58-0.96 [facility] Comment on above: Order Comment: Speci men Type: BLOOD SPECIMEN [facility] Address: [address] [place] [address] Performed By: #### 2 4321-2 #### [facility] [facility] CLIA [id number] [address] [place] Creatinine and Glomerular filtration rate.predicted panel (S/P/Bld) 44 mL/min/1.73m??? Low >=60 [facility] Comment on above: Order Comment: Riaz hernández Type: BLOOD SPECIMEN Ordering Facility: [facility] Address: [address] [place] [address] Result Comment: Fernanda mated Glomerular Filtration Rate [...] GFR. Performed By: #### 2 4321-2 #### [facility] CLIA [id number] [address] [place] [address] [place] Glucose [Mass/Vol] 95 mg/dL Normal 74-99 [facility] Comment on above: Order Comment: Riaz hernández Type: BLOOD SPECIMEN Ordering Facility: [facility] Address: [address] [place] [address] Result Comment: The [place] Diabetes Association (ADA) provides guidance for cutoff [...] Standards of Medical Care in Diabetes 2016, [place] [employer]. Diabetes Care. 2016.39(Suppl 1). Performed By: #### 2 4321-2 #### [facility] CLIA [id number] 1 [place] [address] [place] Potassium [Moles/Vol] 3.8 mmol/L Normal 3.7-5.1 [facility] Comment on above: Order Comment: Riaz hernández Type: BLOOD SPECIMEN Ordering Facility: [facility] Address: [address] [place] [address] Performed By: #### 2 4321-2 #### [facility] CLIA [id number] [address] Sodium [Moles/Vol] 133 mmol/L Low 136-144 [facility] Comment on above: Order Comment: Speci men Type: BLOOD SPECIMEN Ordering Facility: [facility] Address: [address] [place] [address] Performed By: #### 2 4321-2 #### [facility] CLIA [id number] [address] [place] Urea nitrogen [Mass/Vol] 17 mg/dL Normal 7-21 [facility] Comment on above: Order Comment: Speci men Type: BLOOD SPECIMEN Ordering Facility: [facility] Address: [address] [place] [address] Performed By: #### 2 4321-2 #### [facility] CLIA [id number] [address] [place] CBC panel Auto (Bld)on 09-06 Erythrocyte distribution width (RBC) [Ratio] 15.0 % Normal 11.5-15.0 [facility] Comment on above: Order Comment: Speci men Type: BLOOD SPECIMEN Ordering Facility: [facility] Address: [address] [place] [address] Performed By: #### 5 8410-2 #### [facility] CLIA [id number] [address] [place] Hematocrit (Bld) [Volume fraction] 27.3 % Low 36.0-46.0 [facility] Comment on above: Order Comment: Speci men Type: BLOOD SPECIMEN Ordering Facility: [facility] Address: [address] [place] [address] Performed By: #### 5 8410-2 #### [facility] CLIA [id number] [address] [place] Hemoglobin (Bld) [Mass/Vol] 9.3 g/dL Low 11.5-15.5 [facility] Comment on above: Order Comment: Speci men Type: BLOOD SPECIMEN Ordering Facility: [facility] Address: [address] [place] [address] Performed By: #### 5 8410-2 #### [facility] CLIA [id number] [address] MCH (RBC) [Entitic mass] 38.1 pg High 26.0-34.0 [facility] Comment on above: Order Comment: Speci men Type: BLOOD SPECIMEN Ordering Facility: [facility] Address: [address] [place] [address] Performed By: #### 5 8410-2 #### [facility] CLIA [id number] [address] MCHC (RBC) [Mass/Vol] 34.1 g/dL Normal 30.5-36.0 [facility] Comment on above: Order Comment: Speci men Type: BLOOD SPECIMEN Ordering Facility: [facility] Address: [address] [place] [address] Performed By: #### 5 8410-2 #### [facility] CLIA [id number] [address] MCV (RBC) [Entitic vol] 111.9 fL High 80.0-100.0 [facility] Comment on above: Order Comment: Speci men Type: BLOOD SPECIMEN Ordering Facility: [facility] Address: [address] [place] [address] Performed By: #### 5 8410-2 #### [facility] CLIA [id number] [address] Nucleated RBC (Bld) [#/Vol] 10*3/uL Normal <0.01 [facility] Comment on above: Order Comment: Speci men Type: BLOOD SPECIMEN Ordering Facility: [facility] Address: [address] [place] [address] Performed By: #### 5 8410-2 #### [facility] CLIA [id number] [address] Platelet mean volume (Bld) [Entitic vol] 10.5 fL Normal 9.0-12.7 [facility] Comment on above: Order Comment: Speci men Type: BLOOD SPECIMEN Ordering Facility: [facility] Address: [address] [place] [address] Performed By: #### 5 8410-2 #### [facility] CLIA [id number] [address] [place] Platelets (Bld) [#/Vol] 164 10*3/uL Normal 150-400 [facility] Comment on above: Order Comment: Speci men Type: BLOOD SPECIMEN Ordering Facility: [facility] Address: [address] [place] [address] Performed By: #### 5 8410-2 #### [facility] CLIA [id number] [address] RBC (Bld) [#/Vol] 2.44 10*6/uL Low 3.90-5.20 [facility] Comment on above: Order Comment: Speci men Type: BLOOD SPECIMEN Ordering Facility: [facility] Address: [address] [place] [address] Performed By: #### 5 8410-2 #### [facility] CLIA [id number] [address] WBC (Bld) [#/Vol] 5.87 10*3/uL Normal 3.70-11.00 [facility] Comment on above: Order Comment: Speci men Type: BLOOD SPECIMEN Ordering Facility: [facility] Address: [address] [place] [address] Performed By: #### 5 8410-2 #### [facility] CLIA [id number] [address] CNDSon 09-06-2024 CNDS HNO ID: [id number] Author: NADIA BROWN MD Service: General Surgery Author Type: Resident Type: Discharge Summary Filed: 09/11/2024 16:55 Note Text: -- Attestation signed by Nadia Brown MD at 09/11/2024 4:55 PM Attending Note I evaluated the patient and personally participated in the jhaveri components. I agree with the resident's findings and plan as documented and have discussed the case and management of the patient's care with the resident. Signature: Nadia Brown MD Date: 09/11/2024 Time: 4:55 PM -- DISCHARGE SUMMARY PATIENT NAME: Amirah Reed Code Status: Not on file Highest [...] Doctor: Rohit Miles MD Primary Care Provider: Emily Casanova DO My Medical Team Members: Treatment [...] you become constipated, you may use any ggmt-pay-hqcwrgy treatment such as Milk of Magnesia, Sennakot, [...] MD FOLLOW-UP APPOINTMENTS ALREADY SCHEDULED WITH A [facility] PROVIDER: Future Appointments Date Time Provider Department Center 09/17/2024 7:30 AM Pharmacist, Specialtygroup 1 [facility] None 09/17/2024 3:30 PM Rohit Miles MD [facility] 09/28/2024 9:00 AM Wstr, Lab/[place] [facility] [place] 11/02/2024 9:15 AM Wstr, Lab/[place] [facility] [place] 11/02/2024 9:40 AM Jaren Mccoy DO [facility] [place] 11/22/2024 10:00 AM Ambar Vilchis MD AGGYNONPOB [employer] ALLERGIES Allergen Reactions Erythromycin Diarrhea, GI Upset Abdominal cramping Penicillins Unknown DISCHARGE MEDICATION: Medication List START taking these medications traMADol 50 mg tablet Commonly known as: ULTRAM Take 1 tablet by mouth every 8 hours as needed for pain for up t (more content not included)... Normal [facility] Basic metabolic 2000 panelon 09-05-2024 Anion gap [Moles/Vol] 10 mmol/L Normal 8-15 [facility] Comment on above: Order Comment: Speci men Type: BLOOD SPECIMEN Ordering Facility: [facility] Address: [address] [place] [address] Performed By: #### 2 4321-2 #### [facility] CLIA [id number] [address] [place] [address] [place] Calcium [Mass/Vol] 8.7 mg/dL Normal 8.5-10.2 [facility] Comment on above: Order Comment: Speci men Type: BLOOD SPECIMEN Ordering Facility: [facility] Address: [address] [place] [address] Performed By: #### 2 4321-2 #### [facility] CLIA [id number] [address] [place] [address] [place] Chloride [Moles/Vol] 99 mmol/L Normal 98-107 [facility] Comment on above: Order Comment: Speci men Type: BLOOD SPECIMEN Ordering Facility: [facility] Address: [address] [place] [address] Performed By: #### 2 4321-2 #### [facility] CLIA [id number] 1 [place] [address] [place] CO2 [Moles/Vol] 24 mmol/L Normal 22-30 [facility] Comment on above: Order Comment: Riaz hernández Type: BLOOD SPECIMEN Ordering Facility: [facility] Address: [address] [place] [address] Performed By: #### 2 4321-2 #### [facility] CLIA [id number] [address] STATES OF [facility] Creatinine [Mass/Vol] 1.36 mg/dL High 0.58-0.96 [facility] Comment on above: Order Comment: Riaz hernández Type: BLOOD SPECIMEN Ordering Facility: [facility] Address: [address] [place] [address] Performed By: #### 2 4321-2 #### [facility] CLIA [id number] [address] Creatinine and Glomerular filtration rate.predicted panel (S/P/Bld) 41 mL/min/1.73m??? Low >=60 [facility] Comment on above: Order Comment: Riaz hernández Type: BLOOD SPECIMEN Ordering Facility: [facility] Address: [address] [place] [address] Result Comment: Fernanda mated Glomerular Filtration Rate [...] GFR. Performed By: #### 2 4321-2 #### [facility] CLIA [id number] [address] [place] Glucose [Mass/Vol] 126 mg/dL High 74-99 [facility] Comment on above: Order Comment: Riaz betty Type: BLOOD SPECIMEN Ordering Facility: [facility] Address: [address] [place] [address] Result Comment: The [place] Diabetes Association (ADA) provides guidance for cutoff [...] Standards of Medical Care in Diabetes 2016, [place] [employer]. Diabetes Care. 2016.39(Suppl 1). Performed By: #### 2 4321-2 #### [facility] CLIA [id number] [address] Potassium [Moles/Vol] 3.8 mmol/L Normal 3.7-5.1 [facility] Comment on above: Order Comment: Riaz hernández Type: BLOOD SPECIMEN Ordering Facility: [facility] Address: [address] [place] [address] Performed By: #### 2 4321-2 #### [facility] CLIA [id number] [address] Sodium [Moles/Vol] 133 mmol/L Low 136-144 [facility] Comment on above: Order Comment: Riaz hernández Type: BLOOD SPECIMEN Ordering Facility: [facility] Address: [address] [place] [address] Performed By: #### 2 4321-2 #### [facility] CLIA [id number] [address] Urea nitrogen [Mass/Vol] 22 mg/dL High 7-21 [facility] Comment on above: Order Comment: Riaz hernández Type: BLOOD SPECIMEN Ordering Facility: [facility] Address: [address] [place] [address] Performed By: #### 2 4321-2 #### [facility] CLIA [id number] [address] CBC panel Auto (Bld)on 09-05 Erythrocyte distribution width (RBC) [Ratio] 14.6 % Normal 11.5-15.0 [facility] Comment on above: Order Comment: Riaz hernández Type: BLOOD SPECIMEN Ordering Facility: [facility] Address: [address] [place] [address] Performed By: #### 5 8410-2 #### [facility] CL[facility] [id number] [address] Hematocrit (Bld) [Volume fraction] 25.7 % Low 36.0-46.0 [facility] Comment on above: Order Comment: Speci men Type: BLOOD SPECIMEN Ordering Facility: [facility] Address: [address] [place] [address] Performed By: #### 5 8410-2 #### [facility] CLIA [id number] [address] OF [facility] Hemoglobin (Bld) [Mass/Vol] 8.9 g/dL Low 11.5-15.5 [facility] Comment on above: Order Comment: Speci men Type: BLOOD SPECIMEN Ordering Facility: [facility] Address: [address] [place] [address] Performed By: #### 5 8410-2 #### [facility] CLIA [id number] [address] MCH (RBC) [Entitic mass] 38.7 pg High 26.0-34.0 [facility] Comment on above: Order Comment: Speci men Type: BLOOD SPECIMEN Ordering Facility: [facility] Address: [address] [place] [address] Performed By: #### 5 8410-2 #### [facility] CLIA [id number] [address] MCHC (RBC) [Mass/Vol] 34.6 g/dL Normal 30.5-36.0 [facility] Comment on above: Order Comment: Speci men Type: BLOOD SPECIMEN Ordering Facility: [facility] Address: [address] [place] [address] Performed By: #### 5 8410-2 #### [facility] CLIA [id number] [address] MCV (RBC) [Entitic vol] 111.7 fL High 80.0-100.0 [facility] Comment on above: Order Comment: Speci men Type: BLOOD SPECIMEN Ordering Facility: [facility] Address: [address] [place] [address] Performed By: #### 5 8410-2 #### [facility] CLIA [id number] [address] [place] Nucleated RBC (Bld) [#/Vol] 0.03 10*3/uL High <0.01 [facility] Comment on above: Order Comment: Speci men Type: BLOOD SPECIMEN Ordering Facility: [facility] Address: [address] [place] [address] Performed By: #### 5 8410-2 #### [facility] CLIA [id number] [address] [place] Platelet mean volume (Bld) [Entitic vol] 10.6 fL Normal 9.0-12.7 [facility] Comment on above: Order Comment: Speci men Type: BLOOD SPECIMEN Ordering Facility: [facility] Address: [address] [place] [address] Performed By: #### 5 8410-2 #### [facility] CLIA [id number] [address] [place] Platelets (Bld) [#/Vol] 149 10*3/uL Low 150-400 [facility] Comment on above: Order Comment: Speci men Type: BLOOD SPECIMEN Ordering Facility: [facility] Address: [address] [place] [address] Performed By: #### 5 8410-2 #### [facility] CLIA [id number] [address] [place] RBC (Bld) [#/Vol] 2.30 10*6/uL Low 3.90-5.20 [facility] Comment on above: Order Comment: Speci men Type: BLOOD SPECIMEN Ordering Facility: [facility] Address: [address] [place] [address] Performed By: #### 5 8410-2 #### [facility] CLIA [id number] [address] [place] [id number] [place] WBC (Bld) [#/Vol] 7.81 10*3/uL Normal 3.70-11.00 [facility] Comment on above: Order Comment: Speci men Type: BLOOD SPECIMEN Ordering Facility: [facility] Address: [address] [place] [address] Performed By: #### 5 8410-2 #### [facility] CLIA [id number] [address] [place] [id number] [place] ANES PRE-OPon 09-04-2024 ANES PRE-OP HNO ID: [id number] Author: KEVIN NJ DO Service: Anesthesiology Author Type: Anesthesiologist Type: Anesthesia Preprocedure Evaluation Filed: 09/04/2024 06:59 Note Text: ANESTHESIOLOGY DAY OF SURGERY NOTE : 1950 Procedure Information Date/Time: 09/04/24729 Procedure: COLOSTOMY LOOP [facility] [facility]geons: Rohit Miles MD Estimated body [...] and consent discussed: yes. Patient / Responsible Constitution Party agrees to proceed: yes Patient / [...] yes Vitals Value Taken Time BP 138/67 09/04/24643 Pulse 80 09/04/24643 Resp 18 09/04/24643 Temp 36.2 ?C (97.2 [...] Surgery/Procedure. SIGNATURE: Kevin Nj DO PATIENT NAME: Amirah Reed DATE: September 04, 2024 TIME: 6:59 AM CSN: [id number] [facility] OPERATIVE NOon 09-04-2024 OPERATIVE NO HNO ID: [id number] Author: ROHIT MILES MD Service: Colorectal Author Type: Physician Type: Operative Report Filed: 09/04/2024 09:22 Note Text: OPERATIVE REPORT Log ID: [id number] Surgery Date: 09/04/2024 Incision/Procedure Start Time: 7:53 AM Incision Close/Procedure End Time: 9:14 AM Surgeon(s) and Steam Pan Sponger(s): Surgeons and Role: * Rohit Miles MD - Primary * Landon Bustamante DO - Resident - Assisting Preoperative Diagnosis: 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 Normal [facility] Pathology biopsy report Philippe (Tiss)on 09-04-2024 CASE REPORT Normal [facility] Comment on above: Order Comment: Speci men Type: TISSUE SPECIMEN Ordering Facility: [facility] Address: [address] [place] [address] Result Comment: Surg ica Pathology Report Case: [id number] Authorizing Provider: Rohit Miles MD Collected: 09/04/2024 08:28 AM Ordering Location: [facility] Received: 09/04/2024 11:32 AM Pathologist: Evgeny Perez MD Specimen: Colon, Colostomy Performed By: #### 6 6121-5 #### [facility] CLIA [id number] [address] CLINICAL HISTORY Normal [facility] Comment on above: Order Comment: Speci men Type: TISSUE SPECIMEN Ordering Facility: [facility] Address: [address] [place] [address] Result Comment: Pre- op diagnosis: Attention to colostomy (HCC) [Z43.3] Performed By: #### 6 6121-5 #### [facility] CLIA [id number] [address] FINAL DIAGNOSIS Normal [facility] Comment on above: Order Comment: Speci men Type: TISSUE SPECIMEN Ordering Facility: [facility] Address: [address] [place] [address] Result Comment: A. C olostomy, excision: - Benign colostomy site. at 1328 EST Performed By: #### 6 6121-5 #### [facility] CLIA [id number] [address] FINAL PERFORMING LAB Normal [facility] Comment on above: Order Comment: Speci men Type: TISSUE SPECIMEN Ordering Facility: [facility] Address: [address] [place] [address] Result Comment: Diag nostic interpretation performed at: [facility], [address] [place] [address] CLIA# [id number] Automotive Porter: Hugo Romano MD Performed By: #### 6 6121-5 #### [facility] CLIA [id number] [address] [place] GROSS DESCRIPTION Normal [facility] Comment on above: Order Comment: Speci men Type: TISSUE SPECIMEN Ordering Facility: [facility] Address: [address] [place] [address] Result Comment: Sondra wynn, Colostomy Received in formalin labeled colostomy is a mucosal ring surrounded by a scant amount of skin measuring 3.4 x 2.9 x 0.9 cm. The specimen is sectioned. Personnel Officer sections are submitted in formalin in 1 cassette. Gross examination performed at [facility], [address] [place] [address] KVB September 04, 2024 3:16 PM Performed By: #### 6 6121-5 #### [facility] CLIA [id number] [address] STATES OF [facility] CBC W Auto Differential pane l (Bld)on 08-31-2024 Basophils (Bld) [#/Vol] [facility] Basophils/100 WBC (Bld) 0.5 % [facility] Differential cell count method Nom (Bld) Auto [facility] Eosinophils (Bld) [#/Vol] 0.13 10*3/uL [facility] Eosinophils/100 WBC (Bld) 3.3 % [facility] Erythrocyte distribution width (RBC) [Ratio] 14.5 % 11.5 - 15.0 % [facility] Hematocrit (Bld) [Volume fraction] 27.0 % Low 36.0 - 46.0 % [facility] Hemoglobin (Bld) [Mass/Vol] 9.3 g/dL Low 11.5 - 15.5 g/dL [facility] Immature granulocytes (Bld) [#/Vol] [facility] Immature granulocytes/100 WBC (Bld) 0.3 % [facility] Interpretation and review of laboratory results Abnormal [facility] Lymphocytes (Bld) [#/Vol] 0.61 10*3/uL Low [facility] Lymphocytes/100 WBC (Bld) 15.4 % [facility] MCH (RBC) [Entitic mass] 38.4 pg High 26.0 - 34.0 pg [facility] MCHC (RBC) [Mass/Vol] 34.4 g/dL 30.5 - 36.0 g/dL [facility] MCV (RBC) [Entitic vol] 111.6 fL High 80.0 - 100.0 fL [facility] Monocytes (Bld) [#/Vol] 0.43 10*3/uL [facility] Monocytes/100 WBC (Bld) 10.9 % [facility] Neutrophils (Bld) [#/Vol] 2.76 10*3/uL [facility] Neutrophils/100 WBC (Bld) 69.6 % [facility] Nucleated RBC (Bld) [#/Vol] NINF [facility] Nucleated RBC/100 WBC (Bld) [Ratio] 0.0 % /100 WBC [facility] Platelet mean volume (Bld) [Entitic vol] 10.5 fL 9.0 - 12.7 fL [facility] Platelets (Bld) [#/Vol] 158 10*3/uL [facility] RBC (Bld) [#/Vol] 2.42 10*6/uL Low 3.90 - 5.2 0 m/uL [facility] WBC (Bld) [#/Vol] 3.96 10*3/uL [facility] Basophils (Bld) [#/Vol] 10*3/uL Normal <0.11 [facility] Comment on above: Order Comment: Speci men Type: BLOOD SPECIMENOrdering Facility: [facility] Address: [address] [place] [address] Performed By: #### 5 7021-8 ####[facility] [id number] [address] [place] Basophils/100 WBC (Bld) 0.5 % Normal [facility] Comment on above: Order Comment: Speci men Type: BLOOD SPECIMENOrdering Facility: [facility] Address: [address] [place] [address] Performed By: #### 5 7021-8 ####[facility] [id number] [place] [address] [place] Differential cell count method Nom (Bld) Auto Normal [facility] Comment on above: Order Comment: Speci men Type: BLOOD SPECIMENOrdering Facility: [facility] Address: [address] [place] [address] Performed By: #### 5 7021-8 ####[facility] MILLTOWNCLIA [id number] [place] [address] [place] Eosinophils (Bld) [#/Vol] 0.13 10*3/uL Normal <0.46 [facility] Comment on above: Order Comment: Speci men Type: BLOOD SPECIMENOrdering Facility: [facility] Address: [address] [place] [address] Performed By: #### 5 7021-8 ####[facility] MILLWBANGLIA [id number] [place] [address] [place] Eosinophils/100 WBC (Bld) 3.3 % Normal [facility] Comment on above: Order Comment: Speci men Type: BLOOD SPECIMENOrdering Facility: [facility] Address: [address] [place] [address] Performed By: #### 5 7021-8 ####[facility]ENTERWNCLIA [id number] [place] [address] [place] Erythrocyte distribution width (RBC) [Ratio] 14.5 % Normal 11.5-15.0 [facility] Comment on above: Order Comment: Speci men Type: BLOOD SPECIMENOrdering Facility: [facility] Address: [address] [place] [address] Performed By: #### 5 7021-8 ####[facility] MILLTOWNCLIA [id number] [place] [address] [place] Hematocrit (Bld) [Volume fraction] 27.0 % Low 36.0-46.0 [facility] Comment on above: Order Comment: Speci men Type: BLOOD SPECIMENOrdering Facility: [facility] Address: [address] [place] [address] Performed By: #### 5 7021-8 ####[facility] [id number] [place] [address] [place] Hemoglobin (Bld) [Mass/Vol] 9.3 g/dL Low 11.5-15.5 [facility] Comment on above: Order Comment: Speci men Type: BLOOD SPECIMENOrdering Facility: [facility] Address: [address] [place] [address] Performed By: #### 5 7021-8 ####[facility] [id number] [place] [address] [place] Immature granulocytes (Bld) [#/Vol] 10*3/uL Normal <0.10 [facility] Comment on above: Order Comment: Speci men Type: BLOOD SPECIMENOrdering Facility: [facility] Address: [address] [place] [address] Performed By: #### 5 7021-8 ####[facility] [id number] [place] [address] [place] Immature granulocytes/100 WBC (Bld) 0.3 % Normal [facility] Comment on above: Order Comment: Speci men Type: BLOOD SPECIMENOrdering Facility: [facility] Address: [address] [place] [address] Performed By: #### 5 7021-8 ####[facility] [id number] [place] [address] [place] Lymphocytes (Bld) [#/Vol] 0.61 10*3/uL Low 1.00-4.00 [facility] Comment on above: Order Comment: Speci men Type: BLOOD SPECIMENOrdering Facility: [facility] Address: [address] [place] [address] Performed By: #### 5 7021-8 ####[facility] [id number] [place] [address] [place] Lymphocytes/100 WBC (Bld) 15.4 % Normal [facility] Comment on above: Order Comment: Speci men Type: BLOOD SPECIMENOrdering Facility: [facility] Address: [address] [place] [address] Performed By: #### 5 7021-8 ####[facility]ITALNC[facility] [id number] [place] [address] [place] MCH (RBC) [Entitic mass] 38.4 pg High 26.0-34.0 [facility] Comment on above: Order Comment: Speci men Type: BLOOD SPECIMENOrdering Facility: [facility] Address: [address] [place] [address] Performed By: #### 5 7021-8 ####[facility]ITALNCJORD[facility] [id number] [place] [address] [place] MCHC (RBC) [Mass/Vol] 34.4 g/dL Normal 30.5-36.0 [facility] Comment on above: Order Comment: Speci men Type: BLOOD SPECIMENOrdering Facility: [facility] Address: [address] [place] [address] Performed By: #### 5 7021-8 ####[facility]ITALNCLIA [id number] [place] [address] [place] MCV (RBC) [Entitic vol] 111.6 fL High 80.0-100.0 [facility] Comment on above: Order Comment: Speci men Type: BLOOD SPECIMENOrdering Facility: [facility] Address: [address] [place] [address] Performed By: #### 5 7021-8 ####[facility] HOSPITALNCA [id number] [place] [address] [place] Monocytes (Bld) [#/Vol] 0.43 10*3/uL Normal <0.87 [facility] Comment on above: Order Comment: Speci men Type: BLOOD SPECIMENOrdering Facility: [facility] Address: [address] [place] [address] Performed By: #### 5 7021-8 ####[facility] MILLWALNUT SPRINGSNCLIA [id number] [place] [address] [place] Monocytes/100 WBC (Bld) 10.9 % Normal [facility] Comment on above: Order Comment: Speci men Type: BLOOD SPECIMENOrdering Facility: [facility] Address: [address] [place] [address] Performed By: #### 5 7021-8 ####[facility]PITALLIA [id number] [place] [address] [place] Neutrophils (Bld) [#/Vol] 2.76 10*3/uL Normal 1.45-7.50 [facility] Comment on above: Order Comment: Speci men Type: BLOOD SPECIMENOrdering Facility: [facility] Address: [address] [place] [address] Performed By: #### 5 7021-8 ####[facility]ITALLIA [id number] [place] [address] [place] Neutrophils/100 WBC (Bld) 69.6 % Normal [facility] Comment on above: Order Comment: Speci men Type: BLOOD SPECIMENOrdering Facility: [facility] Address: [address] [place] [address] Performed By: #### 5 7021-8 ####[facility]ITALLIA [id number] [place] [address] [place] Nucleated RBC (Bld) [#/Vol] 10*3/uL Normal <0.01 [facility] Comment on above: Order Comment: Speci men Type: BLOOD SPECIMENOrdering Facility: [facility] Address: [address] [place] [address] Performed By: #### 5 7021-8 ####[facility]ITALLIA [id number] [place] [address] [place] Nucleated RBC/100 WBC (Bld) [Ratio] 0.0 /100 WBC Normal [facility] Comment on above: Order Comment: Speci men Type: BLOOD SPECIMENOrdering Facility: [facility] Address: [address] [place] [address] Performed By: #### 5 7021-8 ####[facility] HOSPITALYANIRA [id number] [place] [address] [place] Platelet mean volume (Bld) [Entitic vol] 10.5 fL Normal 9.0-12.7 [facility] Comment on above: Order Comment: Speci men Type: BLOOD SPECIMENOrdering Facility: [facility] Address: [address] [place] [address] Performed By: #### 5 7021-8 ####[facility] HOSPITALBANGDarryl [id number] [place] [address] [place] Platelets (Bld) [#/Vol] 158 10*3/uL Normal 150-400 [facility] Comment on above: Order Comment: Speci men Type: BLOOD SPECIMENOrdering Facility: [facility] Address: [address] [place] [address] Performed By: #### 5 7021-8 ####[facility] HOSPITALBANGJASE [id number] [place] [address] [place] RBC (Bld) [#/Vol] 2.42 10*6/uL Low 3.90-5.20 [facility] Comment on above: Order Comment: Speci men Type: BLOOD SPECIMENOrdering Facility: [facility] Address: [address] [place] [address] Performed By: #### 5 7021-8 ####[facility] HOSPITALNCLIA [id number] [place] [address] [place] WBC (Bld) [#/Vol] 3.96 10*3/uL Normal 3.70-11.00 [facility] Comment on above: Order Comment: Speci men Type: BLOOD SPECIMENOrdering Facility: [facility] Address: [address] [place], [place] [address] [address] Performed By: #### 5 7021-8 ####[facility] YADI [facility]OSPITALLI [id number] [place] [address] [place] Cancer Ag125 SerPl-aCncon Cancer Ag 125 Qn 32 [arb'U]/mL Normal <39 [facility] Comment on above: Order Comment: Speci men Type: BLOOD SPECIMENOrdering Facility: [facility] Address: [address] [place] [address] Result Comment: CA 1 25 test methodology [...] (CA 125 II) [package insert V 1.0 Swazi]. [facility], [place], [place] (April 2015) Performed By: #### 1 0334-1 ####[facility] LABCLIA [id number] [place] [address] [place] Basic metabolic 2000 panelon 08-27-2024 Anion gap [Moles/Vol] 13 mmol/L 8 - 15 mmol/L [facility] Calcium [Mass/Vol] 10.1 mg/dL 8.5 - 10. 2 mg/dL [facility] Chloride [Moles/Vol] 101 mmol/L 98 - 10 7 mmol/L [facility] CO2 [Moles/Vol] 26 mmol/L 22 - 30 mmol/L [facility] Creatinine [Mass/Vol] 1.29 mg/dL High 0.58 - 0.96 mg/dL [facility] GFR/1.73 sq M.predicted among non-blacks MDRD (S/P/Bld) [Vol rate/Area] 44 mL/min/{1.73_m2} Low - PINF [facility] Comment on above: Estimated Glomerular Filtration [...] 123 mg/dL High 74 - 99 mg/dL [facility] Comment on above: The [place] Diabete s Association (ADA) provides guidance for [...] Standards of Medical Care in Diabetes 2016, [place] [employer]. Diabetes Care. 2016.39(Suppl 1). Interpretation and review of laboratory results Abnormal [facility] Potassium [Moles/Vol] 3.9 mmol/L 3.7 - 5.1 mmol/L [facility] Sodium [Moles/Vol] 140 mmol/L 136 - 144 mmol/L [facility] Urea nitrogen [Mass/Vol] 28 mg/dL High 7 - 21 mg/dL [facility] Anion gap [Moles/Vol] 13 mmol/L Normal 8-15 [facility] Comment on above: Order Comment: Speci men Type: BLOOD SPECIMEN Ordering [facility] Address: [address] [place] [id number] Performed By: #### 2 4321-2 #### [facility] CLIA [id number] [address] [place] [address] [place] Calcium [Mass/Vol] 10.1 mg/dL Normal 8.5-10.2 [facility] Comment on above: Order Comment: Speci men Type: BLOOD SPECIMEN [facility]ing Facility: [facility] Address: [address] [place] [address] Performed By: #### 2 4321-2 #### [facility] CLIA [id number] [address] [place] Chloride [Moles/Vol] 101 mmol/L Normal 98-107 [facility] Comment on above: Order Comment: Speci men Type: BLOOD SPECIMEN [facility] Address: [address] [place] [address] Performed By: #### 2 4321-2 #### [facility] CLIA [id number] [address] [place] CO2 [Moles/Vol] 26 mmol/L Normal 22-30 [facility] Comment on above: Order Comment: Speci men Type: BLOOD SPECIMEN [facility] Address: [address] [place] [address] Performed By: #### 2 4321-2 #### [facility] CLIA [id number] [address] [place] Creatinine [Mass/Vol] 1.29 mg/dL High 0.58-0.96 [facility] Comment on above: Order Comment: Speci men Type: BLOOD SPECIMEN [facility] Address: [address] [place] [address] Performed By: #### 2 4321-2 #### [facility] CLIA [id number] [address] Creatinine and Glomerular filtration rate.predicted panel (S/P/Bld) 44 mL/min/1.73m??? Low >=60 [facility] Comment on above: Order Comment: Speci men Type: BLOOD SPECIMEN [facility] Address: [address] [place] [address] Result Comment: Fernanda mated Glomerular Filtration Rate [...] GFR. Performed By: #### 2 4321-2 #### [facility] CLIA [id number] [address] [place] [address] [place] Glucose [Mass/Vol] 123 mg/dL High 74-99 [facility] Comment on above: Order Comment: Riaz hernández Type: BLOOD SPECIMEN [facility] Address: [address] [place] [address] Result Comment: The [place] Diabetes Association (ADA) provides guidance for cutoff [...] Standards of Medical Care in Diabetes 2016, [place] Diabetes Association. Diabetes Care. 2016.39(Suppl 1). Performed By: #### 2 4321-2 #### [facility] CLIA [id number] 1 [place] [address] [place] Potassium [Moles/Vol] 3.9 mmol/L Normal 3.7-5.1 [facility] Comment on above: Order Comment: Riaz hernández Type: BLOOD SPECIMEN [facility] Address: [address] [place] [address] Performed By: #### 2 4321-2 #### [facility] CLIA [id number] 1 [place] [address] [place] Sodium [Moles/Vol] 140 mmol/L Normal 136-144 [facility] Comment on above: Order Comment: Riaz hernández Type: BLOOD SPECIMEN [facility] Address: [address] [place] [address] Performed By: #### 2 4321-2 #### [facility] CLIA [id number] [address] STATES OF [facility] Urea nitrogen [Mass/Vol] 28 mg/dL High 7-21 [facility] Comment on above: Order Comment: Speci men Type: BLOOD SPECIMEN [facility] Address: [address] [place] [address] Performed By: #### 2 4321-2 #### [facility] CLIA [id number] [address] [place] [id number] [place] CBC panel Auto (Bld)on 08-27 Erythrocyte distribution width (RBC) [Ratio] 14.6 % 11.5 - 15.0 % [facility] Hematocrit (Bld) [Volume fraction] 28.1 % Low 36.0 - 46.0 % [facility] Hemoglobin (Bld) [Mass/Vol] 9.5 g/dL Low 11.5 - 15.5 g/dL [facility] Interpretation and review of laboratory results Abnormal [facility] MCH (RBC) [Entitic mass] 38.5 pg High 26.0 - 34.0 pg [facility] MCHC (RBC) [Mass/Vol] 33.8 g/dL 30.5 - 36.0 g/dL [facility] MCV (RBC) [Entitic vol] 113.8 fL High 80.0 - 100.0 fL [facility] Nucleated RBC (Bld) [#/Vol] NINF [facility] Platelet mean volume (Bld) [Entitic vol] 11.1 fL 9.0 - 12.7 fL [facility] Platelets (Bld) [#/Vol] 160 10*3/uL [facility] RBC (Bld) [#/Vol] 2.47 10*6/uL Low 3.90 - 5.2 0 m/uL [facility] WBC (Bld) [#/Vol] 4.42 10*3/uL [facility] Erythrocyte distribution width (RBC) [Ratio] 14.6 % Normal 11.5-15.0 [facility] Comment on above: Order Comment: Speci men Type: BLOOD SPECIMEN [facility] Address: [address] [place] [address] Performed By: #### 5 8410-2 #### [facility] CLIA [id number] [address] Hematocrit (Bld) [Volume fraction] 28.1 % Low 36.0-46.0 [facility] Comment on above: Order Comment: Speci men Type: BLOOD SPECIMEN [facility] Address: [address] [place] [address] Performed By: #### 5 8410-2 #### [facility] CLIA [id number] [address] STATES OF [facility] Hemoglobin (Bld) [Mass/Vol] 9.5 g/dL Low 11.5-15.5 [facility] Comment on above: Order Comment: Speci men Type: BLOOD SPECIMEN [facility] Address: [address] [place] [address] Performed By: #### 5 8410-2 #### [facility] CLIA [id number] [address] MCH (RBC) [Entitic mass] 38.5 pg High 26.0-34.0 [facility] Comment on above: Order Comment: Speci men Type: BLOOD SPECIMEN [facility] Address: [address] [place] [address] Performed By: #### 5 8410-2 #### [facility] CLIA [id number] [address] OF [facility] MCHC (RBC) [Mass/Vol] 33.8 g/dL Normal 30.5-36.0 [facility] Comment on above: Order Comment: Speci men Type: BLOOD SPECIMEN [facility] Address: [address] [place] [address] Performed By: #### 5 8410-2 #### [facility] CLIA [id number] [address] [place] MCV (RBC) [Entitic vol] 113.8 fL High 80.0-100.0 [facility] Comment on above: Order Comment: Speci men Type: BLOOD SPECIMEN [facility] Address: [address] [place] [address] Performed By: #### 5 8410-2 #### [facility] CLIA [id number] [address] [place] Nucleated RBC (Bld) [#/Vol] 10*3/uL Normal <0.01 [facility] Comment on above: Order Comment: Speci men Type: BLOOD SPECIMEN [facility] Address: [address] [place] [address] Performed By: #### 5 8410-2 #### [facility] CLIA [id number] [address] [place] Platelet mean volume (Bld) [Entitic vol] 11.1 fL Normal 9.0-12.7 [facility] Comment on above: Order Comment: Speci men Type: BLOOD SPECIMEN [facility] Address: [address] [place] [address] Performed By: #### 5 8410-2 #### [facility] CLIA [id number] [address] [place] Platelets (Bld) [#/Vol] 160 10*3/uL Normal 150-400 [facility] Comment on above: Order Comment: Speci men Type: BLOOD SPECIMEN [facility] Address: [address] [place] [address] Performed By: #### 5 8410-2 #### [facility] CLIA [id number] [address] [place] RBC (Bld) [#/Vol] 2.47 10*6/uL Low 3.90-5.20 [facility] Comment on above: Order Comment: Speci men Type: BLOOD SPECIMEN [facility] Address: [address] [place] [address] Performed By: #### 5 8410-2 #### [facility] CLIA [id number] [address] [place] [address] [place] WBC (Bld) [#/Vol] 4.42 10*3/uL Normal 3.70-11.00 [facility] Comment on above: Order Comment: Riaz men Type: BLOOD SPECIMEN [facility] Address: [address] [place] [address] Performed By: #### 5 8410-2 #### [facility] CLIA [id number] [address] OF [facility] HISTORY PHYSICALon HISTORY PHYSICAL HNO ID: [id number] Author: RYLEE VALERIO APRN.[employer] Service: ? Author Type: Nurse Practitioner Type: [...] 04, 2024 Anemia due to antineoplastic chemotherapy HAND 9.3/27.5 August 03, 2023 CBC pending Platelets [...] to the planned procedure. REASON FOR VISIT: Amirah Reed is a 73 year old female who is scheduled for Procedure(s): COLOSTOMY CLOSURE (N/A) at the request of Dr. Rohit Miles for routine HANDP. My final recommendation will be communicated back to the requesting physician by way of shared medical record or letter. Subjective The patient has the following: COVID-19 Immunization Status Overdue - Covid-19 Vaccine ( season) Overdue since 07/17/2024 05/22/2024 Imm Admin: COVID-19 vaccine, age 12+ yr, bivalent (PFIZER-BIONTECH) 04/27/2023 Imm Admin: COVID-19 vaccine, age 12+ yr (PFIZER-BIONTECH COMIRNATY) 04/21/2022 Imm Admin: COVID-19 vaccine, age 12+ yr, bivalent (Playmysong-BIONTECH) Only the first 3 history entries have [...] Negative for: (more content not included)... Normal [facility] CNOVSPon 08-23-2024 CNOVSP Visit (SP) Office (JAIME) -- AMIRAH REED ([id number]) 1950 F Date Time Provider Department 08/23/24 11:30 AM AMBAR VILCHIS During your visit today, we recorded the following information about you: Temperature Pulse Blood pressure Weight 97.7 degrees 94/minute 174/77 51.3 kg Ambar Vilchis MD 08/23/2024 3:47 PM Signed Gynecologic Oncology Note [facility] Chief complaint: Ovarian cancer surveillance HPI: This [...] Start Date 08/09/2023 End Date 01/23/2024 Provider Jaren Mccoy, DO Chemotherapy CARBOplatin 400 mg in [...] discussed with the Patient or Patient's Authorized Personnel Officer. As applicable, any other physician, advance practice provider, medical student, or other health professional student that will be observing or involved in the sensitive examination for educational or training purposes was discussed with the Patient or Authorized Personnel Officer. The Patient or Authorized Personnel Officer has agreed to proceed with the sensitive [...] Son aware (more content not included)... Normal [facility] CNPNon 08-16-2024 CNPN Telephone (AGGENS3) -- DEREKAMIRAH Allyson ([id number]) 1950 F Date Time Provider Department 08/16/24 ROHIT MILES AGGENS3 During your visit today, we recorded the [...] injury) (HCC) [N17.9] 10/29/2023 Attention to colostomy ([facility]) [Z43.3] 04/20/2024 Encounter Status:Closed by RAMSEY LOPEZ on 08/16/24 Normal [facility] XR COLON SINGLE CONTRASTon 0 08-15-2024 XR COLON SINGLE CONTRAST * * *Final Report* * * DATE OF EXAM: Aug 15 2024 10:57AM AWX [id number] - XR COLON SINGLE CONTRAST / PROCEDURE REASON: Attention to colostomy ([facility]) * * * * Physician Interpretation * * * * COLON EXAM: CLINICAL INDICATION: 73-year-old female history of ovarian carcinoma; status post sigmoidectomy with diverting transverse colostomy; colostomy reversal with colorectal anastomosis with creation of new diverting loop colostomy. Presurgical planning colon exam requested through the rectum to the loop colostomy prior to reversal of loop colostomy. TECHNIQUE: Following catering truck operator abdomen radiographs, the colon exam is performed by radiology physician clinical services assistant Manjinder Wyatt with interpretation of submitted images including postevacuation radiographs. Contrast: Rectal: 500 ml Omnipaque 300 COMPARISON: CT abdomen and pelvis studies 02/01/2024 and 10/04/2023. FINDINGS: Operations Logistics Analyst abdomen radiographs reveal a nonobstructive distribution of [...] limits evaluation for the presence of stricture. Greens Keeper: PSCB Transcribe Date/Time: Aug 15 2024 5:00P Dictated by : MIRIAM HERNANDEZ MD This examination was interpreted and the report reviewed and electronically signed by: MIRIAM HERNANDEZ MD on Aug 16 2024 2:11PM EST [id number] Normal [facility] CNOVon 08-10-2024 CNOV Office Visit (AGGHWB ) -- AMIRAH REED ([id number]) 1950 F Date Time Provider Department 08/10/24 9:30 AM ROHIT MILES AGGCATRACHO During your visit today, we recorded the following information about you: Pulse Blood pressure Weight Height 101/minute 157/80 52 kg 1.575 m Rohit Miles MD 08/10/2024 10:05 AM Signed Rohit Miles M.D. Colon AND Rectal Surgery [address] [facility], [address] [place] [phone] SUBJECTIVE Amirah Valadez Derek is a 73 year old White female [...] Mother Cancer Mother Coronary Artery Disease Father [place] age 40's, age 60's; also smoked and alcoholic Mental illness Sister Renal Disease Sister Cancer Sister other (rheumatoid arthritis) Sister Coronary Artery Disease Brother [place] age 49, smoker, recovering alcoholic Breast Cancer [...] Pulse 101 (more content not included)... Normal [facility] Sada 08-10-2024 [facility] Telephone (AGGENS3) -- AMIRAH REED ([id number]) 1950 F Date Time Provider Department 08/10/24 ROHIT MILES During your visit today, we recorded the following information about you: Melissa Gonzalez 08/10/2024 1:58 PM Signed Called the patient and left a voice message asking the patient to call the office back to schedule her Surgery. Melissa Millan Carlos Allergies As of Date: 08/10/2024 Noted Allergy [...] colostomy (HCC) [Z43.3] 04/20/2024 Encounter Status:Closed by MELISSA GONZALEZ on 08/10/24 [facility] CNPN Telephone (AGGENS3) -- AMIRAH REED ([id number]) 1950 F Date Time Provider Department 08/10/24 ROHIT MILES AGG3 During your visit today, we recorded the following information about you: Melissa Gonzalez 08/17/2024 8:52 AM Addendum Surgery Checklist Type: COLOSTOMY REVERSAL Admission Type: inpatient Anesthesia: General Date: 09/04/24 Arrival Time: 6:00 AM Surgery Time: 8:00 AM Location: [facility] Surgery and Pre-Testing sent to [facility].Called the patient and left a voice message informing her of the Pre-Testing time, date, and location and about the time change to her procedure and arrival. Estuardo Keller has been sent a email informing her about the patient's upcoming Pre-Testing appointment. Melissa Gonzalez Allergies As of Date: 08/10/2024 Noted [...] colostomy (HCC) [Z43.3] 04/20/2024 Encounter Status:Closed by MELISSA GONZALEZ on 08/10/24 Normal [facility] CBC W Auto Differential pane l (Bld)on 08-03-2024 Basophils (Bld) [#/Vol] [facility] Basophils/100 WBC (Bld) 0.4 % [facility] Differential cell count method Nom (Bld) Auto [facility] Eosinophils (Bld) [#/Vol] 0.14 10*3/uL [facility] Eosinophils/100 WBC (Bld) 2.6 % [facility] Erythrocyte distribution width (RBC) [Ratio] 15.3 % High 11.5 - 15.0 % [facility] Hematocrit (Bld) [Volume fraction] 27.5 % Low 36.0 - 46.0 % [facility] Hemoglobin (Bld) [Mass/Vol] 9.3 g/dL Low 11.5 - 15.5 g/dL [facility] Immature granulocytes (Bld) [#/Vol] [facility] Immature granulocytes/100 WBC (Bld) 0.4 % [facility] Interpretation and review of laboratory results Abnormal [facility] Lymphocytes (Bld) [#/Vol] 0.79 10*3/uL Low [facility] Lymphocytes/100 WBC (Bld) 14.5 % [facility] MCH (RBC) [Entitic mass] 37.1 pg High 26.0 - 34.0 pg [facility] MCHC (RBC) [Mass/Vol] 33.8 g/dL 30.5 - 36.0 g/dL [facility] MCV (RBC) [Entitic vol] 109.6 fL High 80.0 - 100.0 fL [facility] Monocytes (Bld) [#/Vol] 0.44 10*3/uL [facility] Monocytes/100 WBC (Bld) 8.1 % [facility] Neutrophils (Bld) [#/Vol] 4.03 10*3/uL [facility] Neutrophils/100 WBC (Bld) 74.0 % [facility] Nucleated RBC (Bld) [#/Vol] [facility] Nucleated RBC/100 WBC (Bld) [Ratio] 0.0 % /100 WBC [facility] Platelet mean volume (Bld) [Entitic vol] 11.1 fL 9.0 - 12.7 fL [facility] Platelets (Bld) [#/Vol] 175 10*3/uL [facility] RBC (Bld) [#/Vol] 2.51 10*6/uL Low 3.90 - 5.2 0 m/uL [facility] WBC (Bld) [#/Vol] 5.44 10*3/uL [facility] Basophils (Bld) [#/Vol] 10*3/uL Normal <0.11 [facility] Comment on above: Order Comment: Speci men Type: BLOOD SPECIMENOrdering Facility: [facility] Address: [address] [place] [address] Performed By: #### 5 7021-8 ####[facility] [id number] [address] [place] Basophils/100 WBC (Bld) 0.4 % Normal [facility] Comment on above: Order Comment: Speci men Type: BLOOD SPECIMENOrdering Facility: [facility] Address: [address] [place] [address] Performed By: #### 5 7021-8 ####[facility] JARONWALNUT SPRINGSNCLIA [id number] [place] [address] [place] Differential cell count method Nom (Bld) Auto Normal [facility] Comment on above: Order Comment: Speci men Type: BLOOD SPECIMENOrdering Facility: [facility] Address: [address] [place] [address] Performed By: #### 5 7021-8 ####[facility]OSPITALBANGJORD[facility] [id number] [place] [address] [place] Eosinophils (Bld) [#/Vol] 0.14 10*3/uL Normal <0.46 [facility] Comment on above: Order Comment: Speci men Type: BLOOD SPECIMENOrdering Facility: [facility] Address: [address] [place] [address] Performed By: #### 5 7021-8 ####[facility] [id number] [place] [address] [place] Eosinophils/100 WBC (Bld) 2.6 % Normal [facility] Comment on above: Order Comment: Speci men Type: BLOOD SPECIMENOrdering Facility: [facility] Address: [address] [place] [address] Performed By: #### 5 7021-8 ####[facility]OSPITALNCJORD[facility] [id number] [place] [address] [place] Erythrocyte distribution width (RBC) [Ratio] 15.3 % High 11.5-15.0 [facility] Comment on above: Order Comment: Speci men Type: BLOOD SPECIMENOrdering Facility: [facility] Address: [address] [place] [address] Performed By: #### 5 7021-8 ####[facility] HOSPITALNCLIA [id number] [place] [address] [place] Hematocrit (Bld) [Volume fraction] 27.5 % Low 36.0-46.0 [facility] Comment on above: Order Comment: Speci men Type: BLOOD SPECIMENOrdering Facility: [facility] Address: [address] [place] [address] Performed By: #### 5 7021-8 ####[facility] [id number] [place] [address] [place] Hemoglobin (Bld) [Mass/Vol] 9.3 g/dL Low 11.5-15.5 [facility] Comment on above: Order Comment: Speci men Type: BLOOD SPECIMENOrdering Facility: [facility] Address: [address] [place] [address] Performed By: #### 5 7021-8 ####[facility] [id number] [place] [address] [place] Immature granulocytes (Bld) [#/Vol] 10*3/uL Normal <0.10 [facility] Comment on above: Order Comment: Speci men Type: BLOOD SPECIMENOrdering Facility: [facility] Address: [address] [place] [address] Performed By: #### 5 7021-8 ####[facility] [id number] [place] [address] [place] Immature granulocytes/100 WBC (Bld) 0.4 % Normal [facility] Comment on above: Order Comment: Speci men Type: BLOOD SPECIMENOrdering Facility: [facility] Address: [address] [place] [address] Performed By: #### 5 7021-8 ####[facility] [id number] [place] [address] [place] Lymphocytes (Bld) [#/Vol] 0.79 10*3/uL Low 1.00-4.00 [facility] Comment on above: Order Comment: Speci men Type: BLOOD SPECIMENOrdering Facility: [facility] Address: [address] [place] [address] Performed By: #### 5 7021-8 ####[facility] HOSPITALYANIRA [id number] [place] [address] [place] [facility] Lymphocytes/100 WBC (Bld) 14.5 % Normal [facility] Comment on above: Order Comment: Speci men Type: BLOOD SPECIMENOrdering Facility: [facility] Address: [address] [place] [address] Performed By: #### 5 7021-8 ####[facility]OSPITALBANGJORDAN [facility] [id number] [place] [address] [place] MCH (RBC) [Entitic mass] 37.1 pg High 26.0-34.0 [facility] Comment on above: Order Comment: Speci men Type: BLOOD SPECIMENOrdering Facility: [facility] Address: [address] [place] [address] Performed By: #### 5 7021-8 ####[facility] [id number] [place] [address] [place] MCHC (RBC) [Mass/Vol] 33.8 g/dL Normal 30.5-36.0 [facility] Comment on above: Order Comment: Speci men Type: BLOOD SPECIMENOrdering Facility: [facility] Address: [address] [place] [address] Performed By: #### 5 7021-8 ####[facility] HOSPITALNCLIA [id number] [place] [address] [place] MCV (RBC) [Entitic vol] 109.6 fL High 80.0-100.0 [facility] Comment on above: Order Comment: Speci men Type: BLOOD SPECIMENOrdering Facility: [facility] Address: [address] [place] [address] Performed By: #### 5 7021-8 ####[facility] HOSPITALLIA [id number] [place] [address] [place] Monocytes (Bld) [#/Vol] 0.44 10*3/uL Normal <0.87 [facility] Comment on above: Order Comment: Speci men Type: BLOOD SPECIMENOrdering Facility: [facility] Address: [address] [place] [address] Performed By: #### 5 7021-8 ####[facility] CENTERWNCLIA [id number] [place] [address] [place] Monocytes/100 WBC (Bld) 8.1 % Normal [facility] Comment on above: Order Comment: Speci men Type: BLOOD SPECIMENOrdering Facility: [facility] Address: [address] [place] [address] Performed By: #### 5 7021-8 ####[facility] HOSPITALLIA [id number] [place] [address] [place] Neutrophils (Bld) [#/Vol] 4.03 10*3/uL Normal 1.45-7.50 [facility] Comment on above: Order Comment: Speci men Type: BLOOD SPECIMENOrdering Facility: [facility] Address: [address] [place] [address] Performed By: #### 5 7021-8 ####[facility] HOSPITALLIA [id number] [place] [address] [place] Neutrophils/100 WBC (Bld) 74.0 % Normal [facility] Comment on above: Order Comment: Speci men Type: BLOOD SPECIMENOrdering Facility: [facility] Address: [address] [place] [address] Performed By: #### 5 7021-8 ####[facility] HOSPITALNCLIA [id number] [place] [address] [place] Nucleated RBC (Bld) [#/Vol] 10*3/uL Normal <0.01 [facility] Comment on above: Order Comment: Speci men Type: BLOOD SPECIMENOrdering Facility: [facility] Address: [address] [place] [address] Performed By: #### 5 7021-8 ####[facility]OSPITALNCJORDAN [facility] [id number] [place] [address] [place] Nucleated RBC/100 WBC (Bld) [Ratio] 0.0 /100 WBC Normal [facility] Comment on above: Order Comment: Speci men Type: BLOOD SPECIMENOrdering Facility: [facility] Address: [address] [place] [address] Performed By: #### 5 7021-8 ####[facility]OSPITALNCJORD[facility] [id number] [place] [address] [place] Platelet mean volume (Bld) [Entitic vol] 11.1 fL Normal 9.0-12.7 [facility] Comment on above: Order Comment: Speci men Type: BLOOD SPECIMENOrdering Facility: [facility] Address: [address] [place] [address] Performed By: #### 5 7021-8 ####[facility] HOSPITALNCLIA [id number] [place] [address] [place] Platelets (Bld) [#/Vol] 175 10*3/uL Normal 150-400 [facility] Comment on above: Order Comment: Speci men Type: BLOOD SPECIMENOrdering Facility: [facility] Address: [address] [place] [address] Performed By: #### 5 7021-8 ####[facility] CENTERA [id number] [place] [address] [place] RBC (Bld) [#/Vol] 2.51 10*6/uL Low 3.90-5.20 [facility] Comment on above: Order Comment: Speci men Type: BLOOD SPECIMENOrdering Facility: [facility] Address: [address] [place] [address] Performed By: #### 5 7021-8 ####[facility] HOSPITALNCA [id number] [place] [address] [place] WBC (Bld) [#/Vol] 5.44 10*3/uL Normal 3.70-11.00 [facility] Comment on above: Order Comment: Speci men Type: BLOOD SPECIMENOrdering Facility: [facility] Address: [address] [place] [address] Performed By: #### 5 7021-8 ####[facility] HOSPITALNCA [id number] [place] [address] [place] CNOVSPon 08-03-2024 CNOVSP Normal [facility] Cancer Ag125 SerPl-aCncon Cancer Ag 125 Qn 31 [arb'U]/mL Normal <39 [facility] Comment on above: Order Comment: Speci men Type: BLOOD SPECIMENOrdering Facility: [facility] Address: [address] [place] [address] Result Comment: CA 1 25 test methodology [...] (CA 125 II) [package insert V 1.0 Swazi]. [facility], [place], [place] (April 2015) Performed By: #### 1 0334-1 ####[facility] LABCLIA [id number] [place] [address] [place] Comprehensive metabolic 2000 panelOrdered By: Sophia Hall on 08-03-2024 Albumin [Mass/Vol] 4.1 g/dL 3.9 - 4.9 g/dL [facility] ALP [Catalytic activity/Vol] 96 U/L 34 - 123 U/L [facility] ALT [Catalytic activity/Vol] 18 U/L 7 - 38 U/L [facility] Anion gap [Moles/Vol] 11 mmol/L 8 - 15 mmol/L [facility] AST [Catalytic activity/Vol] 22 U/L 13 - 35 U/L [facility] Bilirubin [Mass/Vol] 0.7 mg/dL 0.2 - 1 .3 mg/dL [facility] Calcium [Mass/Vol] 10.1 mg/dL 8.5 - 10. 2 mg/dL [facility] Chloride [Moles/Vol] 100 mmol/L 98 - 10 7 mmol/L [facility] CO2 [Moles/Vol] 27 mmol/L 22 - 30 mmol/L [facility] Creatinine [Mass/Vol] 1.25 mg/dL High 0.58 - 0.96 mg/dL [facility] GFR/1.73 sq M.predicted among non-blacks MDRD (S/P/Bld) [Vol rate/Area] 46 mL/min/{1.73_m2} Low - PINF [facility] Comment on above: Estimated Glomerular Filtration [...] 127 mg/dL High 74 - 99 mg/dL [facility] Comment on above: The [place] Diab[employer] Association (ADA) provides guidance for [...] Standards of Medical Care in Diabetes 2016, [place] [employer]. Diabetes Care. 2016.39(Suppl 1). Interpretation and review of laboratory results Abnormal [facility] Potassium [Moles/Vol] 3.8 mmol/L 3.7 - 5.1 mmol/L [facility] Protein [Mass/Vol] 6.5 g/dL 6.3 - 8.0 g/dL [facility] Sodium [Moles/Vol] 138 mmol/L 136 - 144 mmol/L [facility] Urea nitrogen [Mass/Vol] 35 mg/dL High 7 - 21 mg/dL [facility] Comprehensive metabolic 2000 panelon 08-03-2024 Albumin [Mass/Vol] 4.1 g/dL Normal 3.9-4.9 [facility] Comment on above: Order Comment: Speci men Type: BLOOD SPECIMENOrdering Facility: [facility] Address: [address] [place] [address] Performed By: #### 2 4323-8 ####[facility] [id number] [place] [address] [place] ALP [Catalytic activity/Vol] 96 U/L Normal 34-123 [facility] Comment on above: Order Comment: Speci men Type: BLOOD SPECIMENOrdering Facility: [facility] Address: [address] [place] [address] Performed By: #### 2 4323-8 ####[facility] [id number] [place] [address] [place] ALT [Catalytic activity/Vol] 18 U/L Normal 7-38 [facility] Comment on above: Order Comment: Speci men Type: BLOOD SPECIMENOrdering Facility: [facility] Address: [address] [place] [address] Performed By: #### 2 4323-8 ####[facility] [id number] [place] [address] [place] Anion gap [Moles/Vol] 11 mmol/L Normal 8-15 [facility] Comment on above: Order Comment: Speci men Type: BLOOD SPECIMENOrdering Facility: [facility] Address: [address] [place] [address] Performed By: #### 2 4323-8 ####[facility] YADI MILLTOWNCLIA [id number] [place] [address] [place] AST [Catalytic activity/Vol] 22 U/L Normal 13-35 [facility] Comment on above: Order Comment: Speci men Type: BLOOD SPECIMENOrdering Facility: [facility] Address: [address] [place] [address] Performed By: #### 2 4323-8 ####[facility] MILLTOWNCLIA [id number] [place] [address] [place] Bilirubin [Mass/Vol] 0.7 mg/dL Normal 0.2-1.3 [facility] Comment on above: Order Comment: Speci men Type: BLOOD SPECIMENOrdering Facility: [facility] Address: [address] [place] [address] Performed By: #### 2 4323-8 ####[facility] MILLWNCLIA [id number] [place] [address] [place] Calcium [Mass/Vol] 10.1 mg/dL Normal 8.5-10.2 [facility] Comment on above: Order Comment: Speci men Type: BLOOD SPECIMENOrdering Facility: [facility] Address: [address] [place] [address] Performed By: #### 2 4323-8 ####[facility] MILLTOWNCLIA [id number] [place] [address] [place] Chloride [Moles/Vol] 100 mmol/L Normal 98-107 [facility] Comment on above: Order Comment: Speci men Type: BLOOD SPECIMENOrdering Facility: [facility] Address: [address] [place] [address] Performed By: #### 2 4323-8 ####[facility] [id number] [place] [address] [place] CO2 [Moles/Vol] 27 mmol/L Normal 22-30 [facility] Comment on above: Order Comment: Speci men Type: BLOOD SPECIMENOrdering Facility: [facility] Address: [address] [place] [address] Performed By: #### 2 4323-8 ####[facility] [id number] [place] [address] [place] Creatinine [Mass/Vol] 1.25 mg/dL High 0.58-0.96 [facility] Comment on above: Order Comment: Speci men Type: BLOOD SPECIMENOrdering Facility: [facility] Address: [address] [place] [address] Performed By: #### 2 4323-8 ####[facility]OSPITALNCJORD[facility] [id number] [place] [address] [place] Creatinine and Glomerular filtration rate.predicted panel (S/P/Bld) 46 mL/min/1.73m??? Low >=60 [facility] Comment on above: Order Comment: Speci men Type: BLOOD SPECIMENOrdering Facility: [facility] Address: [address] [place] [address] Result Comment: Fernanda mated Glomerular Filtration Rate [...] actual GFR. Performed By: #### 2 4323-8 ####[facility] HOSPITALNCLIA [id number] [place] [address] [place] Glucose [Mass/Vol] 127 mg/dL High 74-99 [facility] Comment on above: Order Comment: Speci men Type: BLOOD SPECIMENOrdering Facility: [facility] Address: [address] [place], [place] [address] Result Comment: The [place] Diabetes Association (ADA) provides guidance for cutoff [...] Standards of Medical Care in Diabetes 2016, [place] [employer]. Diabetes Care. 2016.39(Suppl 1). Performed By: #### 2 4323-8 ####[facility] [id number] [place] [address] [place] Potassium [Moles/Vol] 3.8 mmol/L Normal 3.7-5.1 [facility] Comment on above: Order Comment: Speci men Type: BLOOD SPECIMENOrdering Facility: [facility] Address: [address] [place] [address] Performed By: #### 2 4323-8 ####[facility] [id number] [place] [address] [place] Protein [Mass/Vol] 6.5 g/dL Normal 6.3-8.0 [facility] Comment on above: Order Comment: Speci men Type: BLOOD SPECIMENOrdering Facility: [facility] Address: [address] [place], [place] [address] Performed By: #### 2 4323-8 ####[facility] [id number] [place] [address] [place] Sodium [Moles/Vol] 138 mmol/L Normal 136-144 [facility] Comment on above: Order Comment: Speci men Type: BLOOD SPECIMENOrdering Facility: [facility] Address: [address] [id number] Performed By: #### 2 4323-8 ####[facility] KAITYWNCLIA [id number] [place] [address] [place] Urea nitrogen [Mass/Vol] 35 mg/dL High 7-21 [facility] Comment on above: Order Comment: Speci men Type: BLOOD SPECIMENOrdering Facility: [facility] Address: [address] [place] [address] Performed By: #### 2 4323-8 ####[facility] JARONWNCLIA [id number] [place] [address] [place] CNPNon 07-13-2024 CNPN Normal [facility] CBC W Auto Differential pane l (Bld)on 07-04-2024 Basophils (Bld) [#/Vol] [facility] Basophils/100 WBC (Bld) 0.5 % [facility] Differential cell count method Nom (Bld) Auto [facility] Eosinophils (Bld) [#/Vol] 0.15 10*3/uL [facility] Eosinophils/100 WBC (Bld) 3.6 % [facility] Erythrocyte distribution width (RBC) [Ratio] 17.0 % High 11.5 - 15.0 % [facility] Hematocrit (Bld) [Volume fraction] 28.0 % Low 36.0 - 46.0 % [facility] Hemoglobin (Bld) [Mass/Vol] 9.6 g/dL Low 11.5 - 15.5 g/dL [facility] Immature granulocytes (Bld) [#/Vol] [facility] Immature granulocytes/100 WBC (Bld) 0.2 % [facility] Interpretation and review of laboratory results Abnormal [facility] Lymphocytes (Bld) [#/Vol] 0.97 10*3/uL Low [facility] Lymphocytes/100 WBC (Bld) 23.5 % [facility] MCH (RBC) [Entitic mass] 36.4 pg High 26.0 - 34.0 pg [facility] MCHC (RBC) [Mass/Vol] 34.3 g/dL 30.5 - 36.0 g/dL [facility] MCV (RBC) [Entitic vol] 106.1 fL High 80.0 - 100.0 fL [facility] Monocytes (Bld) [#/Vol] 0.40 10*3/uL [facility] Monocytes/100 WBC (Bld) 9.7 % [facility] Neutrophils (Bld) [#/Vol] 2.58 10*3/uL [facility] Neutrophils/100 WBC (Bld) 62.5 % [facility] Nucleated RBC (Bld) [#/Vol] NINF [facility] Nucleated RBC/100 WBC (Bld) [Ratio] 0.0 % /100 WBC [facility] Platelet mean volume (Bld) [Entitic vol] 10.6 fL 9.0 - 12.7 fL [facility] Platelets (Bld) [#/Vol] 137 10*3/uL Low [facility] RBC (Bld) [#/Vol] 2.64 10*6/uL Low 3.90 - 5.2 0 m/uL [facility] WBC (Bld) [#/Vol] 4.13 10*3/uL [facility] Basophils (Bld) [#/Vol] 10*3/uL Normal <0.11 [facility] Comment on above: Order Comment: Speci men Type: BLOOD SPECIMENOrdering Facility: [facility] Address: [address] [place] [address] Performed By: #### 5 7021-8 ####[facility] [id number] [place] [address] [place] Basophils/100 WBC (Bld) 0.5 % Normal [facility] Comment on above: Order Comment: Speci men Type: BLOOD SPECIMENOrdering Facility: [facility] Address: [address] [place] [address] Performed By: #### 5 7021-8 ####[facility] [id number] [place] [address] [place] Differential cell count method Nom (Bld) Auto Normal [facility] Comment on above: Order Comment: Speci men Type: BLOOD SPECIMENOrdering Facility: [facility] Address: [address] [place] [address] Performed By: #### 5 7021-8 ####[facility] [id number] [place] [address] [place] Eosinophils (Bld) [#/Vol] 0.15 10*3/uL Normal <0.46 [facility] Comment on above: Order Comment: Speci men Type: BLOOD SPECIMENOrdering Facility: [facility] Address: [address] [place] [address] Performed By: #### 5 7021-8 ####[facility] [id number] [place] [address] [place] Eosinophils/100 WBC (Bld) 3.6 % Normal [facility] Comment on above: Order Comment: Speci men Type: BLOOD SPECIMENOrdering Facility: [facility] Address: [address] [place] [address] Performed By: #### 5 7021-8 ####[facility] [id number] [place] [address] [place] Erythrocyte distribution width (RBC) [Ratio] 17.0 % High 11.5-15.0 [facility] Comment on above: Order Comment: Speci men Type: BLOOD SPECIMENOrdering Facility: [facility] Address: [address] [place] [address] Performed By: #### 5 7021-8 ####[facility] [id number] [place] [address] [place] Hematocrit (Bld) [Volume fraction] 28.0 % Low 36.0-46.0 [facility] Comment on above: Order Comment: Speci men Type: BLOOD SPECIMENOrdering Facility: [facility] Address: [address] [place] [address] Performed By: #### 5 7021-8 ####[facility] CENTERWNCLIA [id number] [place] [address] [place] Hemoglobin (Bld) [Mass/Vol] 9.6 g/dL Low 11.5-15.5 [facility] Comment on above: Order Comment: Speci men Type: BLOOD SPECIMENOrdering Facility: [facility] Address: [address] [place] [address] Performed By: #### 5 7021-8 ####[facility]PITALLIA [id number] [place] [address] [place] Immature granulocytes (Bld) [#/Vol] 10*3/uL Normal <0.10 [facility] Comment on above: Order Comment: Speci men Type: BLOOD SPECIMENOrdering Facility: [facility] Address: [address] [place] [address] Performed By: #### 5 7021-8 ####[facility]ENTERA [id number] [place] [address] [place] Immature granulocytes/100 WBC (Bld) 0.2 % Normal [facility] Comment on above: Order Comment: Speci men Type: BLOOD SPECIMENOrdering Facility: [facility] Address: [address] [place] [address] Performed By: #### 5 7021-8 ####[facility]OSPITALLIA [id number] [place] [address] [place] Lymphocytes (Bld) [#/Vol] 0.97 10*3/uL Low 1.00-4.00 [facility] Comment on above: Order Comment: Speci men Type: BLOOD SPECIMENOrdering Facility: [facility] Address: [address] [place] [address] Performed By: #### 5 7021-8 ####[facility]ITALNCLIA [id number] [place] [address] [place] Lymphocytes/100 WBC (Bld) 23.5 % Normal [facility] Comment on above: Order Comment: Speci men Type: BLOOD SPECIMENOrdering Facility: [facility] Address: [address] [place] [address] Performed By: #### 5 7021-8 ####[facility]ITALNCJORD[facility] [id number] [place] [address] [place] MCH (RBC) [Entitic mass] 36.4 pg High 26.0-34.0 [facility] Comment on above: Order Comment: Speci men Type: BLOOD SPECIMENOrdering Facility: [facility] Address: [address] [place] [address] Performed By: #### 5 7021-8 ####[facility]ITALNCJORD[facility] [id number] [place] [address] [place] MCHC (RBC) [Mass/Vol] 34.3 g/dL Normal 30.5-36.0 [facility] Comment on above: Order Comment: Speci men Type: BLOOD SPECIMENOrdering Facility: [facility] Address: [address] [place] [address] Performed By: #### 5 7021-8 ####[facility] [id number] [place] [address] [place] MCV (RBC) [Entitic vol] 106.1 fL High 80.0-100.0 [facility] Comment on above: Order Comment: Speci men Type: BLOOD SPECIMENOrdering Facility: [facility] Address: [address] [place], [place] [address] Performed By: #### 5 7021-8 ####[facility]PITALNCJORD[facility] [id number] [place] [address] [place] Monocytes (Bld) [#/Vol] 0.40 10*3/uL Normal <0.87 [facility] Comment on above: Order Comment: Speci men Type: BLOOD SPECIMENOrdering Facility: [facility] Address: [address] [place] [address] Performed By: #### 5 7021-8 ####[facility] JARONAILYNLIA [id number] [place] [address] [place] Monocytes/100 WBC (Bld) 9.7 % Normal [facility] Comment on above: Order Comment: Speci men Type: BLOOD SPECIMENOrdering Facility: [facility] Address: [address] [place] [address] Performed By: #### 5 7021-8 ####[facility]OSPITALNCLIA [id number] [place] [address] [place] Neutrophils (Bld) [#/Vol] 2.58 10*3/uL Normal 1.45-7.50 [facility] Comment on above: Order Comment: Speci men Type: BLOOD SPECIMENOrdering Facility: [facility] Address: [address] [place] [address] Performed By: #### 5 7021-8 ####[facility]ENTERA [id number] [place] [address] [place] Neutrophils/100 WBC (Bld) 62.5 % Normal [facility] Comment on above: Order Comment: Speci men Type: BLOOD SPECIMENOrdering Facility: [facility] Address: [address] [place] [address] Performed By: #### 5 7021-8 ####[facility] HOSPITALNCLIA [id number] [place] [address] [place] Nucleated RBC (Bld) [#/Vol] 10*3/uL Normal <0.01 [facility] Comment on above: Order Comment: Speci men Type: BLOOD SPECIMENOrdering Facility: [facility] Address: [address] [place] [address] Performed By: #### 5 7021-8 ####[facility] HOSPITALTOWNCLIA [id number] [place] [address] [place] Nucleated RBC/100 WBC (Bld) [Ratio] 0.0 /100 WBC Normal [facility] Comment on above: Order Comment: Speci men Type: BLOOD SPECIMENOrdering Facility: [facility] Address: [address] [place] [address] Performed By: #### 5 7021-8 ####[facility] JARONWALNUT SPRINGSYANIRA [id number] [place] [address] [place] Platelet mean volume (Bld) [Entitic vol] 10.6 fL Normal 9.0-12.7 [facility] Comment on above: Order Comment: Speci men Type: BLOOD SPECIMENOrdering Facility: [facility] Address: [address] [place] [address] Performed By: #### 5 7021-8 ####[facility] HOSPITALBANGDarryl [id number] [place] [address] [place] Platelets (Bld) [#/Vol] 137 10*3/uL Low 150-400 [facility] Comment on above: Order Comment: Speci men Type: BLOOD SPECIMENOrdering Facility: [facility] Address: [address] [place] [address] Performed By: #### 5 7021-8 ####[facility] JARONWALNUT SPRINGSHAIA [id number] [place] [address] [place] RBC (Bld) [#/Vol] 2.64 10*6/uL Low 3.90-5.20 [facility] Comment on above: Order Comment: Speci men Type: BLOOD SPECIMENOrdering Facility: [facility] Address: [address] [place] [address] Performed By: #### 5 7021-8 ####[facility] HOSPITALNCLIA [id number] [place] [address] [place] WBC (Bld) [#/Vol] 4.13 10*3/uL Normal 3.70-11.00 [facility] Comment on above: Order Comment: Speci men Type: BLOOD SPECIMENOrdering Facility: [facility] Address: [address] [place] [address] Performed By: #### 5 7021-8 ####[facility] [id number] [place] [address] [place] Cancer Ag125 SerPl-aCncon Cancer Ag 125 Qn 26 [arb'U]/mL Normal <39 [facility] Comment on above: Order Comment: Speci men Type: BLOOD SPECIMENOrdering Facility: [facility] Address: [address] [place] [address] Result Comment: CA 1 25 test methodology [...] (CA 125 II) [package insert V 1.0 Swazi]. Fredo Flud, [place], [place] (April 2015) Performed By: #### 1 0334-1 ####[facility] LABCLIA [id number] [place] [address] [place] Comprehensive metabolic 2000 panelOrdered By: Sophia Hall on 07-04-2024 Albumin [Mass/Vol] 4.3 g/dL 3.9 - 4.9 g/dL [facility] ALP [Catalytic activity/Vol] 106 U/L 34 - 123 U/L [facility] ALT [Catalytic activity/Vol] 20 U/L 7 - 38 U/L [facility] Anion gap [Moles/Vol] 10 mmol/L 8 - 15 mmol/L [facility] AST [Catalytic activity/Vol] 27 U/L 13 - 35 U/L [facility] Bilirubin [Mass/Vol] 0.8 mg/dL 0.2 - 1 .3 mg/dL [facility] Calcium [Mass/Vol] 9.9 mg/dL 8.5 - 10. 2 mg/dL [facility] Chloride [Moles/Vol] 102 mmol/L 98 - 10 7 mmol/L [facility] CO2 [Moles/Vol] 27 mmol/L 22 - 30 mmol/L [facility] Creatinine [Mass/Vol] 1.26 mg/dL High 0.58 - 0.96 mg/dL [facility] GFR/1.73 sq M.predicted among non-blacks MDRD (S/P/Bld) [Vol rate/Area] 45 mL/min/{1.73_m2} Low - PINF [facility] Comment on above: Estimated Glomerular Filtration [...] 119 mg/dL High 74 - 99 mg/dL [facility] Comment on above: The [place] Diabete [employer] Association (ADA) provides guidance for [...] Standards of Medical Care in Diabetes 2016, [place] [employer]. Diabetes Care. 2016.39(Suppl 1). Interpretation and review of laboratory results Abnormal [facility] Potassium [Moles/Vol] 4.2 mmol/L 3.7 - 5.1 mmol/L [facility] Protein [Mass/Vol] 6.6 g/dL 6.3 - 8.0 g/dL [facility] Sodium [Moles/Vol] 139 mmol/L 136 - 144 mmol/L [facility] Urea nitrogen [Mass/Vol] 30 mg/dL High 7 - 21 mg/dL [facility] Comprehensive metabolic 2000 panelon 07-04-2024 Albumin [Mass/Vol] 4.3 g/dL Normal 3.9-4.9 [facility] Comment on above: Order Comment: Speci men Type: BLOOD SPECIMENOrdering Facility: [facility] Address: [address] [place] [address] Performed By: #### 2 4323-8 ####[facility] MILLTOWNCLIA [id number] [place] [address] [place] ALP [Catalytic activity/Vol] 106 U/L Normal 34-123 [facility] Comment on above: Order Comment: Speci men Type: BLOOD SPECIMENOrdering Facility: [facility] Address: [address] [place] [address] Performed By: #### 2 4323-8 ####[facility] MILLWNCLIA [id number] [place] [address] [place] ALT [Catalytic activity/Vol] 20 U/L Normal 7-38 [facility] Comment on above: Order Comment: Speci men Type: BLOOD SPECIMENOrdering Facility: [facility] Address: [address] [place] [address] Performed By: #### 2 4323-8 ####[facility] HOSPITALNCLIA [id number] [place] [address] [place] Anion gap [Moles/Vol] 10 mmol/L Normal 8-15 [facility] Comment on above: Order Comment: Speci men Type: BLOOD SPECIMENOrdering Facility: [facility] Address: [address] [place] [address] Performed By: #### 2 4323-8 ####[facility] MILLTOWNCLIA [id number] [place] [address] [place] AST [Catalytic activity/Vol] 27 U/L Normal 13-35 [facility] Comment on above: Order Comment: Speci men Type: BLOOD SPECIMENOrdering Facility: [facility] Address: [address] [place] [address] Performed By: #### 2 4323-8 ####[facility] YADI WATKINSLIA [id number] [place] [address] [place] Bilirubin [Mass/Vol] 0.8 mg/dL Normal 0.2-1.3 [facility] Comment on above: Order Comment: Speci men Type: BLOOD SPECIMENOrdering Facility: [facility] Address: [address] [place], [place] [address] Performed By: #### 2 4323-8 ####[facility] CENTERCAROLINAA [id number] [place] [address] [place] Calcium [Mass/Vol] 9.9 mg/dL Normal 8.5-10.2 [facility] Comment on above: Order Comment: Speci men Type: BLOOD SPECIMENOrdering Facility: [facility] Address: [address] [place] [address] Performed By: #### 2 4323-8 ####[facility] JARONWALNUT SPRINGSNCNICOLETTEA [id number] [place] [address] [place] Chloride [Moles/Vol] 102 mmol/L Normal 98-107 [facility] Comment on above: Order Comment: Speci men Type: BLOOD SPECIMENOrdering Facility: [facility] Address: [address] [place] [address] Performed By: #### 2 4323-8 ####[facility] HOSPITALNCLIA [id number] [place] [address] [place] CO2 [Moles/Vol] 27 mmol/L Normal 22-30 [facility] Comment on above: Order Comment: Speci men Type: BLOOD SPECIMENOrdering Facility: [facility] Address: [address] [place] [address] Performed By: #### 2 4323-8 ####[facility] HOSPITALNCLI [id number] [place] [address] [place] Creatinine [Mass/Vol] 1.26 mg/dL High 0.58-0.96 [facility] Comment on above: Order Comment: Speci men Type: BLOOD SPECIMENOrdering Facility: [facility] Address: [address] [place] [address] Performed By: #### 2 4323-8 ####[facility] [id number] [place] [address] [place] Creatinine and Glomerular filtration rate.predicted panel (S/P/Bld) 45 mL/min/1.73m??? Low >=60 [facility] Comment on above: Order Comment: [facility] Type: BLOOD SPECIMENOrdering Facility: [facility] Address: [address] [place] [address] Result Comment: Fernanda mated Glomerular Filtration Rate [...] actual GFR. Performed By: #### 2 4323-8 ####[facility] [id number] [place] [address] [place] Glucose [Mass/Vol] 119 mg/dL High 74-99 [facility] Comment on above: Order Comment: Speci men Type: BLOOD SPECIMENOrdering Facility: [facility] Address: [address] [place] [address] Result Comment: The [place] Diabetes Association (ADA) provides guidance for cutoff [...] Standards of Medical Care in Diabetes 2016, [place] Diabetes Association. Diabetes Care. 2016.39(Suppl 1). Performed By: #### 2 4323-8 ####[facility] MILLWBANGLIA [id number] [place] [address] [place] Potassium [Moles/Vol] 4.2 mmol/L Normal 3.7-5.1 [facility] Comment on above: Order Comment: Speci men Type: BLOOD SPECIMENOrdering Facility: [facility] Address: [address] [place] [address] Performed By: #### 2 4323-8 ####[facility] HOSPITALLIDarryl [id number] [place] [address] [place] Protein [Mass/Vol] 6.6 g/dL Normal 6.3-8.0 [facility] Comment on above: Order Comment: Speci men Type: BLOOD SPECIMENOrdering Facility: [facility] Address: [address] [place] [address] Performed By: #### 2 4323-8 ####[facility] HOSPITALBANGLIDarryl [id number] [place] [address] [place] Sodium [Moles/Vol] 139 mmol/L Normal 136-144 [facility] Comment on above: Order Comment: Speci men Type: BLOOD SPECIMENOrdering Facility: [facility] Address: [address] [place] [address] Performed By: #### 2 4323-8 ####[facility] HOSPITALNCLIA [id number] [place] [address] [place] Urea nitrogen [Mass/Vol] 30 mg/dL High 7-21 [facility] Comment on above: Order Comment: Speci men Type: BLOOD SPECIMENOrdering Facility: [facility] Address: [facility] [place] [id number] Performed By: #### 2 4323-8 ####[facility] HOSPITALLI [id number] [place] [address] [place] SCRN MAMM (CAD)W/SARA BILATo n 06-26-2024 SCRN MAMM (CAD)W/SARA BILAT [facility] [address] [place] [address] SCRN MAMM (CAD)W/SARA BILAT MR#: [id number] Acct: [id number] Name: AMIRAH REED Rep #: [id number] : 1950 F 73 From: Medhat evans MD PCP: Dr. Emily Casanova, DO Status: [facility] Study: SCRN MAMM (CAD)W/SARA BILAT Date of Exam: 10/15 Exam# [id number] Ordering Dr: Nikki Persaud PROCESSING CLERK-C [id number] MAMMOGRAPHY - BILATERAL SCREENING REASON FOR EXAM: Female, 73 years old. Routine annual screening examination. PERTINENT HISTORY: Grandmother with breast cancer. Personal history of ovarian carcinoma. Aunt with breast cancer. TECHNIQUE: Digital bilateral breast sara (3D mammographic acquisition) in the CC and [...] change since the prior study. BI/SCRN MAMM (CAD)W/SARA BILAT IMPRESSION: Stable bilateral screening mammogram. Yearly follow-up mammogram recommended. (A) ASSESSMENT CATEGORY: BIRADS Category 2: Benign. A letter regarding these results will be sent to the patient by the facility within 30 days. Approximately 10% of breast cancers are not detected by mammography. A normal mammogram should not delay biopsy of a clinically suspicious abnormality. [id number] Electronically Signed: Medhat Davidson MD at 10:37 EST , CC: YULIYA Persaud; Dr. Emily Casanova, Greens Keeper: Signed Normal [facility] CBC W Auto Differential pane l (Bld)on 06-15-2024 Basophils (Bld) [#/Vol] 0.03 10*3/uL [facility] Basophils/100 WBC (Bld) 0.7 % [facility] Differential cell count method Nom (Bld) Auto [facility] Eosinophils (Bld) [#/Vol] 0.09 10*3/uL [facility] Eosinophils/100 WBC (Bld) 2.2 % [facility] Erythrocyte distribution width (RBC) [Ratio] 16.2 % High 11.5 - 15.0 % [facility] Hematocrit (Bld) [Volume fraction] 29.1 % Low 36.0 - 46.0 % [facility] Hemoglobin (Bld) [Mass/Vol] 9.9 g/dL Low 11.5 - 15.5 g/dL [facility] Immature granulocytes (Bld) [#/Vol] [facility]F [facility] Immature granulocytes/100 WBC (Bld) 0.5 % [facility] Interpretation and review of laboratory results Abnormal [facility] Lymphocytes (Bld) [#/Vol] 1.25 10*3/uL [facility] Lymphocytes/100 WBC (Bld) 29.9 % [facility] MCH (RBC) [Entitic mass] 35.6 pg High 26.0 - 34.0 pg [facility] MCHC (RBC) [Mass/Vol] 34.0 g/dL 30.5 - 36.0 g/dL [facility] MCV (RBC) [Entitic vol] 104.7 fL High 80.0 - 100.0 fL [facility] Monocytes (Bld) [#/Vol] 0.30 10*3/uL NINF [facility] Monocytes/100 WBC (Bld) 7.2 % [facility] Neutrophils (Bld) [#/Vol] 2.49 10*3/uL [facility] Neutrophils/100 WBC (Bld) 59.5 % [facility] Nucleated RBC (Bld) [#/Vol] NINF [facility] Nucleated RBC/100 WBC (Bld) [Ratio] 0.0 % /100 WBC [facility] Platelet mean volume (Bld) [Entitic vol] 11.2 fL 9.0 - 12.7 fL [facility] Platelets (Bld) [#/Vol] 122 10*3/uL Low [facility] RBC (Bld) [#/Vol] 2.78 10*6/uL Low 3.90 - 5.2 0 m/uL [facility] WBC (Bld) [#/Vol] 4.18 10*3/uL [facility] Basophils (Bld) [#/Vol] 0.03 10*3/uL Normal <0.11 [facility] Comment on above: Order Comment: Speci men Type: BLOOD SPECIMENOrdering Facility: [facility] Address: [address] [place] [address] Performed By: #### 5 7021-8 ####[facility] YADI [facility] CENTERDarryl [id number] [place] [address] [place] Basophils/100 WBC (Bld) 0.7 % Normal [facility] Comment on above: Order Comment: Speci men Type: BLOOD SPECIMENOrdering Facility: [facility] Address: [address] [place] [address] Performed By: #### 5 7021-8 ####[facility] JARONSofyaBANGLIA [id number] [place] [address] [place] Differential cell count method Nom (Bld) Auto Normal [facility] Comment on above: Order Comment: Speci men Type: BLOOD SPECIMENOrdering Facility: [facility] Address: [address] [place] [address] Performed By: #### 5 7021-8 ####[facility] HOSPITALBANGLIA [id number] [place] [address] [place] Eosinophils (Bld) [#/Vol] 0.09 10*3/uL Normal <0.46 [facility] Comment on above: Order Comment: Speci men Type: BLOOD SPECIMENOrdering Facility: [facility] Address: [address] [place] [address] Performed By: #### 5 7021-8 ####[facility] HOSPITALHAIA [id number] [place] [address] [place] Eosinophils/100 WBC (Bld) 2.2 % Normal [facility] Comment on above: Order Comment: Speci men Type: BLOOD SPECIMENOrdering Facility: [facility] Address: [address] [place] [address] Performed By: #### 5 7021-8 ####[facility] HOSPITALBANGLIA [id number] [place] [address] [place] Erythrocyte distribution width (RBC) [Ratio] 16.2 % High 11.5-15.0 [facility] Comment on above: Order Comment: Speci men Type: BLOOD SPECIMENOrdering Facility: [facility] Address: [address] [place] [address] Performed By: #### 5 7021-8 ####[facility] HOSPITALNCLIA [id number] [place] [address] [place] Hematocrit (Bld) [Volume fraction] 29.1 % Low 36.0-46.0 [facility] Comment on above: Order Comment: Speci men Type: BLOOD SPECIMENOrdering Facility: [facility] Address: [address] [place] [address] Performed By: #### 5 7021-8 ####[facility] HOSPITALNCJORD[facility] [id number] [place] [address] [place] Hemoglobin (Bld) [Mass/Vol] 9.9 g/dL Low 11.5-15.5 [facility] Comment on above: Order Comment: Speci men Type: BLOOD SPECIMENOrdering Facility: [facility] Address: [address] [place] [address] Performed By: #### 5 7021-8 ####[facility]OSPITALNCJORD[facility] [id number] [place] [address] [place] Immature granulocytes (Bld) [#/Vol] 10*3/uL Normal <0.10 [facility] Comment on above: Order Comment: Speci men Type: BLOOD SPECIMENOrdering Facility: [facility] Address: [address] [place] [address] Performed By: #### 5 7021-8 ####[facility] HOSPITALNCJORDAN [facility] [id number] [place] [address] [place] Immature granulocytes/100 WBC (Bld) 0.5 % Normal [facility] Comment on above: Order Comment: Speci men Type: BLOOD SPECIMENOrdering Facility: [facility] Address: [address] [place] [address] Performed By: #### 5 7021-8 ####[facility]ITALNCL[facility] [id number] [place] [address] [place] Lymphocytes (Bld) [#/Vol] 1.25 10*3/uL Normal 1.00-4.00 [facility] Comment on above: Order Comment: Speci men Type: BLOOD SPECIMENOrdering Facility: [facility] Address: [address] [place] [address] Performed By: #### 5 7021-8 ####[facility] JARONDIMPLE [id number] [place] [address] [place] Lymphocytes/100 WBC (Bld) 29.9 % Normal [facility] Comment on above: Order Comment: Speci men Type: BLOOD SPECIMENOrdering Facility: [facility] Address: [address] [place] [address] Performed By: #### 5 7021-8 ####[facility]OSPITALNCJASE [id number] [place] [address] [place] MCH (RBC) [Entitic mass] 35.6 pg High 26.0-34.0 [facility] Comment on above: Order Comment: Speci men Type: BLOOD SPECIMENOrdering Facility: [facility] Address: [address] [place] [address] Performed By: #### 5 7021-8 ####[facility] CENTERDarryl [id number] [place] [address] [place] MCHC (RBC) [Mass/Vol] 34.0 g/dL Normal 30.5-36.0 [facility] Comment on above: Order Comment: Speci men Type: BLOOD SPECIMENOrdering Facility: [facility] Address: [address] [place] [address] Performed By: #### 5 7021-8 ####[facility] HOSPITALNCLIA [id number] [place] [address] [place] MCV (RBC) [Entitic vol] 104.7 fL High 80.0-100.0 [facility] Comment on above: Order Comment: Speci men Type: BLOOD SPECIMENOrdering Facility: [facility] Address: [address] [place] [address] Performed By: #### 5 7021-8 ####[facility] MILLWNCLIA [id number] [place] [address] [place] Monocytes (Bld) [#/Vol] 0.30 10*3/uL Normal <0.87 [facility] Comment on above: Order Comment: Speci men Type: BLOOD SPECIMENOrdering Facility: [facility] Address: [address] [place] [address] Performed By: #### 5 7021-8 ####[facility]OSPITALLIA [id number] [place] [address] [place] Monocytes/100 WBC (Bld) 7.2 % Normal [facility] Comment on above: Order Comment: Speci men Type: BLOOD SPECIMENOrdering Facility: [facility] Address: [address] [place] [address] Performed By: #### 5 7021-8 ####[facility] HOSPITALLIA [id number] [place] [address] [place] Neutrophils (Bld) [#/Vol] 2.49 10*3/uL Normal 1.45-7.50 [facility] Comment on above: Order Comment: Speci men Type: BLOOD SPECIMENOrdering Facility: [facility] Address: [address] [place] [address] Performed By: #### 5 7021-8 ####[facility]OSPITALLIA [id number] [place] [address] [place] Neutrophils/100 WBC (Bld) 59.5 % Normal [facility] Comment on above: Order Comment: Speci men Type: BLOOD SPECIMENOrdering Facility: [facility] Address: [address] [place] [address] Performed By: #### 5 7021-8 ####[facility] HOSPITALNCLIA [id number] [place] [address] [place] Nucleated RBC (Bld) [#/Vol] 10*3/uL Normal <0.01 [facility] Comment on above: Order Comment: Speci men Type: BLOOD SPECIMENOrdering Facility: [facility] Address: [address] [place] [address] Performed By: #### 5 7021-8 ####[facility] [id number] [place] [address] [place] Nucleated RBC/100 WBC (Bld) [Ratio] 0.0 /100 WBC Normal [facility] Comment on above: Order Comment: Speci men Type: BLOOD SPECIMENOrdering Facility: [facility] Address: [address] [place] [address] Performed By: #### 5 7021-8 ####[facility]OSPITALNCJORDAN [facility] [id number] [place] [address] [place] Platelet mean volume (Bld) [Entitic vol] 11.2 fL Normal 9.0-12.7 [facility] Comment on above: Order Comment: Speci men Type: BLOOD SPECIMENOrdering Facility: [facility] Address: [address] [place] [address] Performed By: #### 5 7021-8 ####[facility] CENTERA [id number] [place] [address] [place] Platelets (Bld) [#/Vol] 122 10*3/uL Low 150-400 [facility] Comment on above: Order Comment: Speci men Type: BLOOD SPECIMENOrdering Facility: [facility] Address: [address] [place] [address] Performed By: #### 5 7021-8 ####[facility] HOSPITALNCLIA [id number] [place] [address] [place] RBC (Bld) [#/Vol] 2.78 10*6/uL Low 3.90-5.20 [facility] Comment on above: Order Comment: Speci men Type: BLOOD SPECIMENOrdering Facility: [facility] Address: [address] [place] [address] Performed By: #### 5 7021-8 ####[facility] HOSPITALNCLIA [id number] [place] [address] [place] WBC (Bld) [#/Vol] 4.18 10*3/uL Normal 3.70-11.00 [facility] Comment on above: Order Comment: Speci men Type: BLOOD SPECIMENOrdering Facility: [facility] Address: [address] [place] [address] Performed By: #### 5 7021-8 ####[facility] HOSPITALNCLIA [id number] [place] [address] [place] Cancer Ag125 SerPl-aCncon Cancer Ag 125 Qn 27 [arb'U]/mL Normal <39 [facility] Comment on above: Order Comment: Speci men Type: BLOOD SPECIMENOrdering Facility: [facility] Address: [address] [place] [address] Result Comment: CA 1 25 test methodology [...] (CA 125 II) [package insert V 1.0 Swazi]. [facility], [place], [place] (April 2015) Performed By: #### 1 0334-1 ####[facility] LABCLIA [id number] [place] [address] [place] Comprehensive metabolic 2000 panelOrdered By: Sophia Hall on 06-15-2024 Albumin [Mass/Vol] 4.5 g/dL 3.9 - 4.9 g/dL [facility] ALP [Catalytic activity/Vol] 110 U/L 34 - 123 U/L [facility] ALT [Catalytic activity/Vol] 17 U/L 7 - 38 U/L [facility] Anion gap [Moles/Vol] 14 mmol/L 8 - 15 mmol/L [facility] AST [Catalytic activity/Vol] 26 U/L 13 - 35 U/L [facility] Bilirubin [Mass/Vol] 0.7 mg/dL 0.2 - 1 .3 mg/dL [facility] Calcium [Mass/Vol] 9.9 mg/dL 8.5 - 10. 2 mg/dL [facility] Chloride [Moles/Vol] 100 mmol/L 98 - 10 7 mmol/L [facility] CO2 [Moles/Vol] 24 mmol/L 22 - 30 mmol/L [facility] Creatinine [Mass/Vol] 1.41 mg/dL High 0.58 - 0.96 mg/dL [facility] GFR/1.73 sq M.predicted among non-blacks MDRD (S/P/Bld) [Vol rate/Area] 39 mL/min/{1.73_m2} Low - PINF [facility] Comment on above: Estimated Glomerular Filtration [...] 125 mg/dL High 74 - 99 mg/dL [facility] Comment on above: The [place] Diab[employer] [place] Association (ADA) provides guidance for [...] Standards of Medical Care in Diabetes 2016, [place] [employer]. Diabetes Care. 2016.39(Suppl 1). Interpretation and review of laboratory results Abnormal [facility] Potassium [Moles/Vol] 4.1 mmol/L 3.7 - 5.1 mmol/L [facility] Protein [Mass/Vol] 6.9 g/dL 6.3 - 8.0 g/dL [facility] Sodium [Moles/Vol] 138 mmol/L 136 - 144 mmol/L [facility] Urea nitrogen [Mass/Vol] 45 mg/dL High 7 - 21 mg/dL [facility] Comprehensive metabolic 2000 panelon 06-15-2024 Albumin [Mass/Vol] 4.5 g/dL Normal 3.9-4.9 [facility] Comment on above: Order Comment: Speci men Type: BLOOD SPECIMENOrdering Facility: [facility] Address: [address] [place] [address] Performed By: #### 2 4323-8 ####[facility] [id number] [place] [address] [place] ALP [Catalytic activity/Vol] 110 U/L Normal 34-123 [facility] Comment on above: Order Comment: Speci men Type: BLOOD SPECIMENOrdering Facility: [facility] Address: [address] [place] [address] Performed By: #### 2 4323-8 ####[facility] [id number] [place] [address] [place] ALT [Catalytic activity/Vol] 17 U/L Normal 7-38 [facility] Comment on above: Order Comment: Speci men Type: BLOOD SPECIMENOrdering Facility: [facility] Address: [address] [place] [address] Performed By: #### 2 4323-8 ####[facility] [id number] [place] [address] [place] Anion gap [Moles/Vol] 14 mmol/L Normal 8-15 [facility] Comment on above: Order Comment: Speci men Type: BLOOD SPECIMENOrdering Facility: [facility] Address: [address] [place] [address] Performed By: #### 2 4323-8 ####[facility] YADI MILLTOWNCLIA [id number] [place] [address] [place] AST [Catalytic activity/Vol] 26 U/L Normal 13-35 [facility] Comment on above: Order Comment: Speci men Type: BLOOD SPECIMENOrdering Facility: [facility] Address: [address] [place] [address] Performed By: #### 2 4323-8 ####[facility] MILLTOWNCLIA [id number] [place] [address] [place] Bilirubin [Mass/Vol] 0.7 mg/dL Normal 0.2-1.3 [facility] Comment on above: Order Comment: Speci men Type: BLOOD SPECIMENOrdering Facility: [facility] Address: [address] [place] [address] Performed By: #### 2 4323-8 ####[facility] MILLTOWNCLIA [id number] [place] [address] [place] Calcium [Mass/Vol] 9.9 mg/dL Normal 8.5-10.2 [facility] Comment on above: Order Comment: Speci men Type: BLOOD SPECIMENOrdering Facility: [facility] Address: [address] [place] [address] Performed By: #### 2 4323-8 ####[facility] MILLTOWNCLIA [id number] [place] [address] [place] Chloride [Moles/Vol] 100 mmol/L Normal 98-107 [facility] Comment on above: Order Comment: Speci men Type: BLOOD SPECIMENOrdering Facility: [facility] Address: [address] [place] [address] Performed By: #### 2 4323-8 ####[facility] MILLTOWNCLIA [id number] [place] [address] [place] CO2 [Moles/Vol] 24 mmol/L Normal 22-30 [facility] Comment on above: Order Comment: Speci men Type: BLOOD SPECIMENOrdering Facility: [facility] Address: [address] [place] [address] Performed By: #### 2 4323-8 ####[facility] [id number] [place] [address] [place] Creatinine [Mass/Vol] 1.41 mg/dL High 0.58-0.96 [facility] Comment on above: Order Comment: Speci men Type: BLOOD SPECIMENOrdering Facility: [facility] Address: [address] [place] [address] Performed By: #### 2 4323-8 ####[facility] [id number] [place] [address] [place] Creatinine and Glomerular filtration rate.predicted panel (S/P/Bld) 39 mL/min/1.73m??? Low >=60 [facility] Comment on above: Order Comment: Speci men Type: BLOOD SPECIMENOrdering Facility: [facility] Address: [address] [place] [address] Result Comment: Fernanda mated Glomerular Filtration Rate [...] actual GFR. Performed By: #### 2 4323-8 ####[facility]OSPITALLIA [id number] [place] [address] [place] Glucose [Mass/Vol] 125 mg/dL High 74-99 [facility] Comment on above: Order Comment: Speci men Type: BLOOD SPECIMENOrdering Facility: [facility] Address: [address] [place], [place] [address] Result Comment: The [place] Diabetes Association (ADA) provides guidance for cutoff [...] Standards of Medical Care in Diabetes 2016, [place] Diabetes [employer]. Diabetes Care. 2016.39(Suppl 1). Performed By: #### 2 4323-8 ####[facility] [id number] [place] [address] [place] Potassium [Moles/Vol] 4.1 mmol/L Normal 3.7-5.1 [facility] Comment on above: Order Comment: Speci men Type: BLOOD SPECIMENOrdering Facility: [facility] Address: [address] [place], [place] [address] Performed By: #### 2 4323-8 ####[facility] [id number] [place] [address] [place] Protein [Mass/Vol] 6.9 g/dL Normal 6.3-8.0 [facility] Comment on above: Order Comment: Speci men Type: BLOOD SPECIMENOrdering Facility: [facility] Address: [address] [place], [place] [address] Performed By: #### 2 4323-8 ####[facility] [id number] [place] [address] [place] Sodium [Moles/Vol] 138 mmol/L Normal 136-144 [facility] Comment on above: Order Comment: Speci men Type: BLOOD SPECIMENOrdering Facility: [facility] Address: [address] [place], [place] [address] Performed By: #### 2 4323-8 ####[facility] HOSPITALNCLI [id number] [address] [place] Urea nitrogen [Mass/Vol] 45 mg/dL High 7-21 [facility] Comment on above: Order Comment: Speci men Type: BLOOD SPECIMENOrdering Facility: [facility] Address: [address] [place] [address] Performed By: #### 2 4323-8 ####[facility] CENTERWNCLIA [id number] [place] [address] [place] CBC W Auto Differential pane l (Bld)on 06-01-2024 Basophils (Bld) [#/Vol] 0.03 10*3/uL [facility]F [facility] Basophils/100 WBC (Bld) 0.6 % [facility] Differential cell count method Nom (Bld) Auto [facility] Eosinophils (Bld) [#/Vol] 0.11 10*3/uL [facility]ENTERF [facility] Eosinophils/100 WBC (Bld) 2.2 % [facility] Erythrocyte distribution width (RBC) [Ratio] 15.5 % High 11.5 - 15.0 % [facility] Hematocrit (Bld) [Volume fraction] 27.9 % Low 36.0 - 46.0 % [facility] Hemoglobin (Bld) [Mass/Vol] 9.5 g/dL Low 11.5 - 15.5 g/dL [facility] Immature granulocytes (Bld) [#/Vol] [facility]F [facility] Immature granulocytes/100 WBC (Bld) 0.4 % [facility] Interpretation and review of laboratory results Abnormal [facility] Lymphocytes (Bld) [#/Vol] 1.30 10*3/uL [facility] Lymphocytes/100 WBC (Bld) 25.6 % [facility] MCH (RBC) [Entitic mass] 35.7 pg High 26.0 - 34.0 pg [facility] MCHC (RBC) [Mass/Vol] 34.1 g/dL 30.5 - 36.0 g/dL [facility] MCV (RBC) [Entitic vol] 104.9 fL High 80.0 - 100.0 fL [facility] Monocytes (Bld) [#/Vol] 0.44 10*3/uL [facility] Monocytes/100 WBC (Bld) 8.7 % [facility] Neutrophils (Bld) [#/Vol] 3.18 10*3/uL [facility] Neutrophils/100 WBC (Bld) 62.5 % [facility] Nucleated RBC (Bld) [#/Vol] NINF [facility] Nucleated RBC/100 WBC (Bld) [Ratio] 0.0 % /100 WBC [facility] Platelet mean volume (Bld) [Entitic vol] 9.8 fL 9.0 - 12.7 fL [facility] Platelets (Bld) [#/Vol] 128 10*3/uL Low [facility] RBC (Bld) [#/Vol] 2.66 10*6/uL Low 3.90 - 5.2 0 m/uL [facility] WBC (Bld) [#/Vol] 5.08 10*3/uL [facility] Basophils (Bld) [#/Vol] 0.03 10*3/uL Normal <0.11 [facility] Comment on above: Order Comment: Speci men Type: BLOOD SPECIMENOrdering Facility: [facility] Address: [address] [place] [address] Performed By: #### 5 7021-8 ####[facility] [id number] [place] [address] [place] Basophils/100 WBC (Bld) 0.6 % Normal [facility] Comment on above: Order Comment: Speci men Type: BLOOD SPECIMENOrdering Facility: [facility] Address: [address] [place] [address] Performed By: #### 5 7021-8 ####[facility] [id number] [place] [address] [place] Differential cell count method Nom (Bld) Auto Normal [facility] Comment on above: Order Comment: Speci men Type: BLOOD SPECIMENOrdering Facility: [facility] Address: [address] [place] [address] Performed By: #### 5 7021-8 ####[facility] JARONWALNUT SPRINGSBANGLIA [id number] [place] [address] [place] Eosinophils (Bld) [#/Vol] 0.11 10*3/uL Normal <0.46 [facility] Comment on above: Order Comment: Speci men Type: BLOOD SPECIMENOrdering Facility: [facility] Address: [address] [place] [address] Performed By: #### 5 7021-8 ####[facility] CENTERA [id number] [place] [address] [place] Eosinophils/100 WBC (Bld) 2.2 % Normal [facility] Comment on above: Order Comment: Speci men Type: BLOOD SPECIMENOrdering Facility: [facility] Address: [address] [place] [address] Performed By: #### 5 7021-8 ####[facility] CENTERA [id number] [place] [address] [place] Erythrocyte distribution width (RBC) [Ratio] 15.5 % High 11.5-15.0 [facility] Comment on above: Order Comment: Speci men Type: BLOOD SPECIMENOrdering Facility: [facility] Address: [address] [place] [address] Performed By: #### 5 7021-8 ####[facility]PITALLIA [id number] [place] [address] [place] Hematocrit (Bld) [Volume fraction] 27.9 % Low 36.0-46.0 [facility] Comment on above: Order Comment: Speci men Type: BLOOD SPECIMENOrdering Facility: [facility] Address: [address] [place] [address] Performed By: #### 5 7021-8 ####[facility] CENTERWNCLIA [id number] [place] [address] [place] Hemoglobin (Bld) [Mass/Vol] 9.5 g/dL Low 11.5-15.5 [facility] Comment on above: Order Comment: Speci men Type: BLOOD SPECIMENOrdering Facility: [facility] Address: [address] [place] [address] Performed By: #### 5 7021-8 ####[facility] CENTERA [id number] [place] [address] [place] Immature granulocytes (Bld) [#/Vol] 10*3/uL Normal <0.10 [facility] Comment on above: Order Comment: Speci men Type: BLOOD SPECIMENOrdering Facility: [facility] Address: [address] [place] [address] Performed By: #### 5 7021-8 ####[facility] [id number] [place] [address] [place] Immature granulocytes/100 WBC (Bld) 0.4 % Normal [facility] Comment on above: Order Comment: Speci men Type: BLOOD SPECIMENOrdering Facility: [facility] Address: [address] [place] [address] Performed By: #### 5 7021-8 ####[facility] [id number] [place] [address] [place] Lymphocytes (Bld) [#/Vol] 1.30 10*3/uL Normal 1.00-4.00 [facility] Comment on above: Order Comment: Speci men Type: BLOOD SPECIMENOrdering Facility: [facility] Address: [address] [place] [address] Performed By: #### 5 7021-8 ####[facility]OSPITALNCLIA [id number] [place] [address] [place] Lymphocytes/100 WBC (Bld) 25.6 % Normal [facility] Comment on above: Order Comment: Speci men Type: BLOOD SPECIMENOrdering Facility: [facility] Address: [address] [place] [address] Performed By: #### 5 7021-8 ####[facility] [id number] [place] [address] [place] MCH (RBC) [Entitic mass] 35.7 pg High 26.0-34.0 [facility] Comment on above: Order Comment: Speci men Type: BLOOD SPECIMENOrdering Facility: [facility] Address: [address] [place] [address] Performed By: #### 5 7021-8 ####[facility] [id number] [place] [address] [place] MCHC (RBC) [Mass/Vol] 34.1 g/dL Normal 30.5-36.0 [facility] Comment on above: Order Comment: Speci men Type: BLOOD SPECIMENOrdering Facility: [facility] Address: [address] [place] [address] Performed By: #### 5 7021-8 ####[facility] [id number] [place] [address] [place] MCV (RBC) [Entitic vol] 104.9 fL High 80.0-100.0 [facility] Comment on above: Order Comment: Speci men Type: BLOOD SPECIMENOrdering Facility: [facility] Address: [address] [place] [address] Performed By: #### 5 7021-8 ####[facility] [id number] [place] [address] [place] Monocytes (Bld) [#/Vol] 0.44 10*3/uL Normal <0.87 [facility] Comment on above: Order Comment: Speci men Type: BLOOD SPECIMENOrdering Facility: [facility] Address: [address] [place] [address] Performed By: #### 5 7021-8 ####[facility] KAITYWNCLIA [id number] [place] [address] [place] Monocytes/100 WBC (Bld) 8.7 % Normal [facility] Comment on above: Order Comment: Speci men Type: BLOOD SPECIMENOrdering Facility: [facility] Address: [address] [place] [address] Performed By: #### 5 7021-8 ####[facility] CENTERWNCLIA [id number] [place] [address] [place] Neutrophils (Bld) [#/Vol] 3.18 10*3/uL Normal 1.45-7.50 [facility] Comment on above: Order Comment: Speci men Type: BLOOD SPECIMENOrdering Facility: [facility] Address: [address] [place] [address] Performed By: #### 5 7021-8 ####[facility] CENTERWNCLIA [id number] [place] [address] [place] Neutrophils/100 WBC (Bld) 62.5 % Normal [facility] Comment on above: Order Comment: Speci men Type: BLOOD SPECIMENOrdering Facility: [facility] Address: [address] [place] [address] Performed By: #### 5 7021-8 ####[facility] CENTERWNCLIA [id number] [place] [address] [place] Nucleated RBC (Bld) [#/Vol] 10*3/uL Normal <0.01 [facility] Comment on above: Order Comment: Speci men Type: BLOOD SPECIMENOrdering Facility: [facility] Address: [address] [place] [address] Performed By: #### 5 7021-8 ####[facility]ODRIGUEZPREMI[facility] MEDICAL CENTERLI [id number] [place] [address] [place] Nucleated RBC/100 WBC (Bld) [Ratio] 0.0 /100 WBC Normal [facility] Comment on above: Order Comment: Speci men Type: BLOOD SPECIMENOrdering Facility: [facility] Address: [address] [place] [address] Performed By: #### 5 7021-8 ####[facility] [id number] [place] [address] [place] Platelet mean volume (Bld) [Entitic vol] 9.8 fL Normal 9.0-12.7 [facility] Comment on above: Order Comment: Speci men Type: BLOOD SPECIMENOrdering Facility: [facility] Address: [address] [place] [address] Performed By: #### 5 7021-8 ####[facility] [id number] [place] [address] [place] Platelets (Bld) [#/Vol] 128 10*3/uL Low 150-400 [facility] Comment on above: Order Comment: Speci men Type: BLOOD SPECIMENOrdering Facility: [facility] Address: [address] [place] [address] Performed By: #### 5 7021-8 ####[facility] [id number] [place], [place] [address] [place] RBC (Bld) [#/Vol] 2.66 10*6/uL Low 3.90-5.20 [facility] Comment on above: Order Comment: Speci men Type: BLOOD SPECIMENOrdering Facility: [facility] Address: [address] [place] [address] Performed By: #### 5 7021-8 ####[facility] [id number] [place] [address] [place] WBC (Bld) [#/Vol] 5.08 10*3/uL Normal 3.70-11.00 [facility] Comment on above: Order Comment: Speci men Type: BLOOD SPECIMENOrdering Facility: [facility] Address: [address] [place] [address] Performed By: #### 5 7021-8 ####[facility] YADI [facility]ITALLI [id number] [place] [address] [place] Cancer Ag125 SerPl-aCncon Cancer Ag 125 Qn 35 [arb'U]/mL Normal <39 [facility] Comment on above: Order Comment: Speci men Type: BLOOD SPECIMENOrdering Facility: [facility] Address: [address] [place] [address] Result Comment: CA 1 25 test methodology [...] (CA 125 II) [package insert V 1.0 Swazi]. Fredo Flud, [place], [place] (April 2015) Performed By: #### 1 0334-1 ####[facility] LABCLIA [id number] [place] [address] [place] Comprehensive metabolic 2000 panelOrdered By: Yani Jones on 06-01-2024 Albumin [Mass/Vol] 4.3 g/dL 3.9 - 4.9 g/dL [facility] ALP [Catalytic activity/Vol] 147 U/L High 34 - 123 U/L [facility] ALT [Catalytic activity/Vol] 17 U/L 7 - 38 U/L [facility] Anion gap [Moles/Vol] 13 mmol/L 8 - 15 mmol/L [facility] AST [Catalytic activity/Vol] 25 U/L 13 - 35 U/L [facility] Bilirubin [Mass/Vol] 0.6 mg/dL 0.2 - 1 .3 mg/dL [facility] Calcium [Mass/Vol] 9.9 mg/dL 8.5 - 10. 2 mg/dL [facility] Chloride [Moles/Vol] 102 mmol/L 98 - 10 7 mmol/L [facility] CO2 [Moles/Vol] 24 mmol/L 22 - 30 mmol/L [facility] Creatinine [Mass/Vol] 1.30 mg/dL High 0.58 - 0.96 mg/dL [facility] GFR/1.73 sq M.predicted among non-blacks MDRD (S/P/Bld) [Vol rate/Area] 44 mL/min/{1.73_m2} Low - PINF [facility] Comment on above: Estimated Glomerular Filtration [...] 114 mg/dL High 74 - 99 mg/dL [facility] Comment on above: The [place] Diabete [place] Association (ADA) provides guidance for [...] Standards of Medical Care in Diabetes 2016, [place] Diabetes Association. Diabetes Care. 2016.39(Suppl 1). Interpretation and review of laboratory results Abnormal [facility] Potassium [Moles/Vol] 4.1 mmol/L 3.7 - 5.1 mmol/L [facility] Protein [Mass/Vol] 6.7 g/dL 6.3 - 8.0 g/dL [facility] Sodium [Moles/Vol] 139 mmol/L 136 - 144 mmol/L [facility] Urea nitrogen [Mass/Vol] 36 mg/dL High 7 - 21 mg/dL [facility] Comprehensive metabolic 2000 panelon 06-01-2024 Albumin [Mass/Vol] 4.3 g/dL Normal 3.9-4.9 [facility] Comment on above: Order Comment: Speci men Type: BLOOD SPECIMENOrdering Facility: [facility] Address: [address] [place] [address] Performed By: #### 2 4323-8 ####[facility] YDAI MILLTOWNCLIA [id number] [place] [address] [place] ALP [Catalytic activity/Vol] 147 U/L High 34-123 [facility] Comment on above: Order Comment: Speci men Type: BLOOD SPECIMENOrdering Facility: [facility] Address: [address] [place] [address] Performed By: #### 2 4323-8 ####[facility] MILLWNCLIA [id number] [place] [address] [place] ALT [Catalytic activity/Vol] 17 U/L Normal 7-38 [facility] Comment on above: Order Comment: Speci men Type: BLOOD SPECIMENOrdering Facility: [facility] Address: [address] [place] [address] Performed By: #### 2 4323-8 ####[facility]ITALNCLIA [id number] [place] [address] [place] Anion gap [Moles/Vol] 13 mmol/L Normal 8-15 [facility] Comment on above: Order Comment: Speci men Type: BLOOD SPECIMENOrdering Facility: [facility] Address: [address] [place] [address] Performed By: #### 2 4323-8 ####[facility] MILLTOWNCLIA [id number] [place] [address] [place] AST [Catalytic activity/Vol] 25 U/L Normal 13-35 [facility] Comment on above: Order Comment: Speci men Type: BLOOD SPECIMENOrdering Facility: [facility] Address: [address] [place] [address] Performed By: #### 2 4323-8 ####[facility] YADI ISIDROHAIA [id number] [place] [address] [place] Bilirubin [Mass/Vol] 0.6 mg/dL Normal 0.2-1.3 [facility] Comment on above: Order Comment: Speci men Type: BLOOD SPECIMENOrdering Facility: [facility] Address: [address] [place] [address] Performed By: #### 2 4323-8 ####[facility] JARONDIMPLE [id number] [place] [address] [place] Calcium [Mass/Vol] 9.9 mg/dL Normal 8.5-10.2 [facility] Comment on above: Order Comment: Speci men Type: BLOOD SPECIMENOrdering Facility: [facility] Address: [address] [place] [address] Performed By: #### 2 4323-8 ####[facility] JARONDIMPLE [id number] [place] [address] [place] Chloride [Moles/Vol] 102 mmol/L Normal 98-107 [facility] Comment on above: Order Comment: Speci men Type: BLOOD SPECIMENOrdering Facility: [facility] Address: [address] [place] [address] Performed By: #### 2 4323-8 ####[facility]ITALNCLIA [id number] [place] [address] [place] CO2 [Moles/Vol] 24 mmol/L Normal 22-30 [facility] Comment on above: Order Comment: Speci men Type: BLOOD SPECIMENOrdering Facility: [facility] Address: [address] [place] [address] Performed By: #### 2 4323-8 ####[facility] HOSPITALNCLI [id number] [place] [address] [place] Creatinine [Mass/Vol] 1.30 mg/dL High 0.58-0.96 [facility] Comment on above: Order Comment: Speci men Type: BLOOD SPECIMENOrdering Facility: [facility] Address: [address] [place] [address] Performed By: #### 2 4323-8 ####[facility]ITALL[facility] [id number] [place] [address] [place] Creatinine and Glomerular filtration rate.predicted panel (S/P/Bld) 44 mL/min/1.73m??? Low >=60 [facility] Comment on above: Order Comment: [facility] Type: BLOOD SPECIMENOrdering Facility: [facility] Address: [address] [place] [address] Result Comment: Fernanda mated Glomerular Filtration Rate [...] actual GFR. Performed By: #### 2 4323-8 ####[facility]OS[facility]ITALNCLI [id number] [place] [address] [place] Glucose [Mass/Vol] 114 mg/dL High 74-99 [facility] Comment on above: Order Comment: Speci men Type: BLOOD SPECIMENOrdering Facility: [facility] Address: [address] [place], [place] [address] Result Comment: The [place] Diabetes Association (ADA) provides guidance for cutoff [...] Standards of Medical Care in Diabetes 2016, [place] Diabetes Association. Diabetes Care. 2016.39(Suppl 1). Performed By: #### 2 4323-8 ####[facility] MILLTOWNCLIA [id number] [place] [address] [place] Potassium [Moles/Vol] 4.1 mmol/L Normal 3.7-5.1 [facility] Comment on above: Order Comment: Kurti men Type: BLOOD SPECIMENOrdering Facility: [facility] Address: [address] [place] [address] Performed By: #### 2 4323-8 ####[facility] CENTERWNCLIA [id number] [place] [address] [place] Protein [Mass/Vol] 6.7 g/dL Normal 6.3-8.0 [facility] Comment on above: Order Comment: Riaz hernández Type: BLOOD SPECIMENOrdering Facility: [facility] Address: [address] [place] [address] Performed By: #### 2 4323-8 ####[facility]ITALLIA [id number] [place] [address] [place] Sodium [Moles/Vol] 139 mmol/L Normal 136-144 [facility] Comment on above: Order Comment: Speci men Type: BLOOD SPECIMENOrdering Facility: [facility] Address: [address] [place] [address] Performed By: #### 2 4323-8 ####[facility] CENTERWNCLIA [id number] [place] [address] [place] Urea nitrogen [Mass/Vol] 36 mg/dL High 7-21 [facility] Comment on above: Order Comment: Speci men Type: BLOOD SPECIMENOrdering Facility: [facility] Address: [address] [place] [address] Performed By: #### 2 4323-8 ####[facility] YADI YARBROUGH [id number] [address] [place] CNPPing 05-28-2024 CNPN Telephone ([facility]) -- AMIRAH REED ([id number]) 1950 F Date Time Provider Department 05/28/24 ESTUARDO LONG [facility] During your visit today, we recorded the following information about you: Estuardo Long RN 05/28/2024 2:11 PM Signed [facility] EPIC ANESTHESIA ANALYST ONE MONTH FOLLOW UP PHONE CALL PHONE [...] RN DATE: 05/28/2024 TIME: 2:10 PM CONTACT #:[phone] Allergies As of Date: 05/28/2024 Noted Allergy Reaction ERYTHROMYCIN 02/09/2008 6 - Diarrhea 8 - GI Upset Comments: Abdominal cramping PENICILLINS 02/09/2008 16 - Unknown Date Reviewed: 05/18/2024 Reviewed by: Delicia Han RN - Fully Assessed Reason for Visit: [employer] 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 - Hospital Follow Up [1221] Prescriptions as of 05/28/2024 - lisinopril-hydroCHLOROthia zide [...] Status:Closed by ESTUARDO LONG on 05/28/24 Normal [facility] CBC W Auto Differential pane l (Bld)on 05-18-2024 Basophils (Bld) [#/Vol] [facility] Basophils/100 WBC (Bld) 0.3 % [facility] Differential cell count method Nom (Bld) Auto [facility] Eosinophils (Bld) [#/Vol] 0.14 10*3/uL [facility] Eosinophils/100 WBC (Bld) 4.1 % [facility] Erythrocyte distribution width (RBC) [Ratio] 14.7 % 11.5 - 15.0 % [facility] Hematocrit (Bld) [Volume fraction] 27.9 % Low 36.0 - 46.0 % [facility] Hemoglobin (Bld) [Mass/Vol] 9.4 g/dL Low 11.5 - 15.5 g/dL [facility] Immature granulocytes (Bld) [#/Vol] [facility] Immature granulocytes/100 WBC (Bld) 0.6 % [facility] Interpretation and review of laboratory results Abnormal [facility] Lymphocytes (Bld) [#/Vol] 0.93 10*3/uL Low [facility] Lymphocytes/100 WBC (Bld) 27.4 % [facility] MCH (RBC) [Entitic mass] 36.0 pg High 26.0 - 34.0 pg [facility] MCHC (RBC) [Mass/Vol] 33.7 g/dL 30.5 - 36.0 g/dL [facility] MCV (RBC) [Entitic vol] 106.9 fL High 80.0 - 100.0 fL [facility] Monocytes (Bld) [#/Vol] 0.36 10*3/uL [facility] Monocytes/100 WBC (Bld) 10.6 % [facility] Neutrophils (Bld) [#/Vol] 1.94 10*3/uL [facility] Neutrophils/100 WBC (Bld) 57.0 % [facility] Nucleated RBC (Bld) [#/Vol] NINF [facility] Nucleated RBC/100 WBC (Bld) [Ratio] 0.0 % /100 WBC [facility] Platelet mean volume (Bld) [Entitic vol] 10.5 fL 9.0 - 12.7 fL [facility] Platelets (Bld) [#/Vol] 162 10*3/uL [facility] RBC (Bld) [#/Vol] 2.61 10*6/uL Low 3.90 - 5.2 0 m/uL [facility] WBC (Bld) [#/Vol] 3.40 10*3/uL Low [facility] Basophils (Bld) [#/Vol] 10*3/uL Normal <0.11 [facility] Comment on above: Order Comment: Speci men Type: BLOOD SPECIMENOrdering Facility: [facility] Address: [address] [place] [address] Performed By: #### 5 7021-8 ####[facility] CENTERA [id number] [place] [address] [place] Basophils/100 WBC (Bld) 0.3 % Normal [facility] Comment on above: Order Comment: Speci men Type: BLOOD SPECIMENOrdering Facility: [facility] Address: [address] [place] [address] Performed By: #### 5 7021-8 ####[facility] CENTERA [id number] [place] [address] [place] Differential cell count method Nom (Bld) Auto Normal [facility] Comment on above: Order Comment: Speci men Type: BLOOD SPECIMENOrdering Facility: [facility] Address: [address] [place] [address] Performed By: #### 5 7021-8 ####[facility] HOSPITALNCLIA [id number] [place] [address] [place] Eosinophils (Bld) [#/Vol] 0.14 10*3/uL Normal <0.46 [facility] Comment on above: Order Comment: Speci men Type: BLOOD SPECIMENOrdering Facility: [facility] Address: [address] [place] [address] Performed By: #### 5 7021-8 ####[facility] DWAINENCJASE [id number] [place] [address] [place] Eosinophils/100 WBC (Bld) 4.1 % Normal [facility] Comment on above: Order Comment: Speci men Type: BLOOD SPECIMENOrdering Facility: [facility] Address: [address] [place] [address] Performed By: #### 5 7021-8 ####[facility] JARONWALNUT SPRINGSNCLIDarryl [id number] [place] [address] [place] Erythrocyte distribution width (RBC) [Ratio] 14.7 % Normal 11.5-15.0 [facility] Comment on above: Order Comment: Speci men Type: BLOOD SPECIMENOrdering Facility: [facility] Address: [address] [place] [address] Performed By: #### 5 7021-8 ####[facility] JARONWALNUT SPRINGSNCLIA [id number] [place] [address] [place] Hematocrit (Bld) [Volume fraction] 27.9 % Low 36.0-46.0 [facility] Comment on above: Order Comment: Speci men Type: BLOOD SPECIMENOrdering Facility: [facility] Address: [address] [place] [address] Performed By: #### 5 7021-8 ####[facility] HOSPITALBANGLIA [id number] [place] [address] [place] Hemoglobin (Bld) [Mass/Vol] 9.4 g/dL Low 11.5-15.5 [facility] Comment on above: Order Comment: Speci men Type: BLOOD SPECIMENOrdering Facility: [facility] Address: [address] [place] [address] Performed By: #### 5 7021-8 ####[facility] MILLWNCLIA [id number] [place] [address] [place] Immature granulocytes (Bld) [#/Vol] 10*3/uL Normal <0.10 [facility] Comment on above: Order Comment: Speci men Type: BLOOD SPECIMENOrdering Facility: [facility] Address: [address] [place] [address] Performed By: #### 5 7021-8 ####[facility]OSPITALLIA [id number] [place] [address] [place] Immature granulocytes/100 WBC (Bld) 0.6 % Normal [facility] Comment on above: Order Comment: Speci men Type: BLOOD SPECIMENOrdering Facility: [facility] Address: [address] [place] [address] Performed By: #### 5 7021-8 ####[facility]OSPITALLIA [id number] [place] [address] [place] Lymphocytes (Bld) [#/Vol] 0.93 10*3/uL Low 1.00-4.00 [facility] Comment on above: Order Comment: Speci men Type: BLOOD SPECIMENOrdering Facility: [facility] Address: [address] [place] [address] Performed By: #### 5 7021-8 ####[facility] CENTERWNCLIA [id number] [place] [address] [place] Lymphocytes/100 WBC (Bld) 27.4 % Normal [facility] Comment on above: Order Comment: Speci men Type: BLOOD SPECIMENOrdering Facility: [facility] Address: [address] [place] [address] Performed By: #### 5 7021-8 ####[facility]OSPITALLIA [id number] [place] [address] [place] MCH (RBC) [Entitic mass] 36.0 pg High 26.0-34.0 [facility] Comment on above: Order Comment: Speci men Type: BLOOD SPECIMENOrdering Facility: [facility] Address: [address] [place] [address] Performed By: #### 5 7021-8 ####[facility] HOSPITALNCJORD[facility] [id number] [place] [address] [place] MCHC (RBC) [Mass/Vol] 33.7 g/dL Normal 30.5-36.0 [facility] Comment on above: Order Comment: Speci men Type: BLOOD SPECIMENOrdering Facility: [facility] Address: [address] [place] [address] Performed By: #### 5 7021-8 ####[facility]OSPITALNCJORDAN [facility] [id number] [place] [address] [place] MCV (RBC) [Entitic vol] 106.9 fL High 80.0-100.0 [facility] Comment on above: Order Comment: Speci men Type: BLOOD SPECIMENOrdering Facility: [facility] Address: [address] [place] [address] Performed By: #### 5 7021-8 ####[facility] HOSPITALNCLI [id number] [place] [address] [place] Monocytes (Bld) [#/Vol] 0.36 10*3/uL Normal <0.87 [facility] Comment on above: Order Comment: Speci men Type: BLOOD SPECIMENOrdering Facility: [facility] Address: [address] [place] [address] Performed By: #### 5 7021-8 ####[facility] HOSPITALNCLI [id number] [place] [address] [place] Monocytes/100 WBC (Bld) 10.6 % Normal [facility] Comment on above: Order Comment: Speci men Type: BLOOD SPECIMENOrdering Facility: [facility] Address: [address] [place] [address] Performed By: #### 5 7021-8 ####[facility] JARONAILYNLIA [id number] [place] [address] [place] Neutrophils (Bld) [#/Vol] 1.94 10*3/uL Normal 1.45-7.50 [facility] Comment on above: Order Comment: Speci men Type: BLOOD SPECIMENOrdering Facility: [facility] Address: [address] [place] [address] Performed By: #### 5 7021-8 ####[facility]PITALLIA [id number] [place] [address] [place] Neutrophils/100 WBC (Bld) 57.0 % Normal [facility] Comment on above: Order Comment: Speci men Type: BLOOD SPECIMENOrdering Facility: [facility] Address: [address] [place] [address] Performed By: #### 5 7021-8 ####[facility]OSPITALLIA [id number] [place] [address] [place] Nucleated RBC (Bld) [#/Vol] 10*3/uL Normal <0.01 [facility] Comment on above: Order Comment: Speci men Type: BLOOD SPECIMENOrdering Facility: [facility] Address: [address] [place] [address] Performed By: #### 5 7021-8 ####[facility] HOSPITALNCLIA [id number] [place] [address] [place] Nucleated RBC/100 WBC (Bld) [Ratio] 0.0 /100 WBC Normal [facility] Comment on above: Order Comment: Speci men Type: BLOOD SPECIMENOrdering Facility: [facility] Address: [address] [place] [address] Performed By: #### 5 7021-8 ####[facility] JARONWNCLIA [id number] [place] [address] [place] Platelet mean volume (Bld) [Entitic vol] 10.5 fL Normal 9.0-12.7 [facility] Comment on above: Order Comment: Speci men Type: BLOOD SPECIMENOrdering Facility: [facility] Address: [address] [place] [address] Performed By: #### 5 7021-8 ####[facility] HOSPITALBANGLIA [id number] [place] [address] [place] Platelets (Bld) [#/Vol] 162 10*3/uL Normal 150-400 [facility] Comment on above: Order Comment: Speci men Type: BLOOD SPECIMENOrdering Facility: [facility] Address: [address] [place] [address] Performed By: #### 5 7021-8 ####[facility]OSPITALLIA [id number] [place] [address] [place] RBC (Bld) [#/Vol] 2.61 10*6/uL Low 3.90-5.20 [facility] Comment on above: Order Comment: Speci men Type: BLOOD SPECIMENOrdering Facility: [facility] Address: [address] [place] [address] Performed By: #### 5 7021-8 ####[facility]OSPITALLIA [id number] [place] [address] [place] WBC (Bld) [#/Vol] 3.40 10*3/uL Low 3.70-11.00 [facility] Comment on above: Order Comment: Speci men Type: BLOOD SPECIMENOrdering Facility: [facility] Address: [address] [place] [address] Performed By: #### 5 7021-8 ####[facility] HOSPITALLIA [id number] [place] [id number] [place] Cancer Ag125 SerPl-aCncon Cancer Ag 125 Qn 61 [arb'U]/mL High <39 [facility] Comment on above: Order Comment: Speci men Type: BLOOD SPECIMENOrdering Facility: [facility] Address: [address] [place] [address] Result Comment: CA 1 25 test methodology [...] (CA 125 II) [package insert V 1.0 Swazi]. Fredo Flud, [place], [place] (April 2015) Performed By: #### 1 0334-1 ####[facility] LABCLIA [id number] [place] [address] [place] Comprehensive metabolic 2000 panelOrdered By: Sophia Hall on 05-18-2024 Albumin [Mass/Vol] 4.2 g/dL 3.9 - 4.9 g/dL [facility] ALP [Catalytic activity/Vol] 239 U/L High 34 - 123 U/L [facility] ALT [Catalytic activity/Vol] 18 U/L 7 - 38 U/L [facility] Anion gap [Moles/Vol] 8 mmol/L 8 - 15 mmol/L [facility] AST [Catalytic activity/Vol] 24 U/L 13 - 35 U/L [facility] Bilirubin [Mass/Vol] 0.6 mg/dL 0.2 - 1 .3 mg/dL [facility] Calcium [Mass/Vol] 10.0 mg/dL 8.5 - 10. 2 mg/dL [facility] Chloride [Moles/Vol] 103 mmol/L 98 - 10 7 mmol/L [facility] CO2 [Moles/Vol] 26 mmol/L 22 - 30 mmol/L [facility] Creatinine [Mass/Vol] 1.40 mg/dL High 0.58 - 0.96 mg/dL [facility] GFR/1.73 sq M.predicted among non-blacks MDRD (S/P/Bld) [Vol rate/Area] 40 mL/min/{1.73_m2} Low - PINF [facility] Comment on above: Estimated Glomerular Filtration [...] 118 mg/dL High 74 - 99 mg/dL [facility] Comment on above: The [place] Diab[employer] [place] Association (ADA) provides guidance for [...] Standards of Medical Care in Diabetes 2016, [place] [employer]. Diabetes Care. 2016.39(Suppl 1). Interpretation and review of laboratory results Abnormal [facility] Potassium [Moles/Vol] 4.1 mmol/L 3.7 - 5.1 mmol/L [facility] Protein [Mass/Vol] 6.4 g/dL 6.3 - 8.0 g/dL [facility] Sodium [Moles/Vol] 137 mmol/L 136 - 144 mmol/L [facility] Urea nitrogen [Mass/Vol] 33 mg/dL High 7 - 21 mg/dL [facility] Comprehensive metabolic 2000 panelon 05-18-2024 Albumin [Mass/Vol] 4.2 g/dL Normal 3.9-4.9 [facility] Comment on above: Order Comment: Speci men Type: BLOOD SPECIMENOrdering Facility: [facility] Address: [address] [place] [address] Performed By: #### 2 4323-8 ####[facility] MILLTOWNCLIA [id number] [place] [address] [place] ALP [Catalytic activity/Vol] 239 U/L High 34-123 [facility] Comment on above: Order Comment: Speci men Type: BLOOD SPECIMENOrdering Facility: [facility] Address: [address] [place] [address] Performed By: #### 2 4323-8 ####[facility] CENTERWNCLIA [id number] [place] [address] [place] ALT [Catalytic activity/Vol] 18 U/L Normal 7-38 [facility] Comment on above: Order Comment: Speci men Type: BLOOD SPECIMENOrdering Facility: [facility] Address: [address] [place] [address] Performed By: #### 2 4323-8 ####[facility]ITALNCLIA [id number] [place] [address] [place] Anion gap [Moles/Vol] 8 mmol/L Normal 8-15 [facility] Comment on above: Order Comment: Speci men Type: BLOOD SPECIMENOrdering Facility: [facility] Address: [address] [place] [address] Performed By: #### 2 4323-8 ####[facility]ITALNCLIA [id number] [place] [address] [place] AST [Catalytic activity/Vol] 24 U/L Normal 13-35 [facility] Comment on above: Order Comment: Speci men Type: BLOOD SPECIMENOrdering Facility: [facility] Address: [address] [place] [address] Performed By: #### 2 4323-8 ####[facility]ITALNCLIA [id number] [place] [address] [place] Bilirubin [Mass/Vol] 0.6 mg/dL Normal 0.2-1.3 [facility] Comment on above: Order Comment: Speci men Type: BLOOD SPECIMENOrdering Facility: [facility] Address: [address] [place] [address] Performed By: #### 2 4323-8 ####[facility]PITALNCJORD[facility] [id number] [place] [address] [place] Calcium [Mass/Vol] 10.0 mg/dL Normal 8.5-10.2 [facility] Comment on above: Order Comment: Speci men Type: BLOOD SPECIMENOrdering Facility: [facility] Address: [address] [place] [address] Performed By: #### 2 4323-8 ####[facility] [id number] [place] [address] [place] Chloride [Moles/Vol] 103 mmol/L Normal 98-107 [facility] Comment on above: Order Comment: Speci men Type: BLOOD SPECIMENOrdering Facility: [facility] Address: [address] [place] [address] Performed By: #### 2 4323-8 ####[facility]OSPITALNCJORD[facility] [id number] [place] [address] [place] CO2 [Moles/Vol] 26 mmol/L Normal 22-30 [facility] Comment on above: Order Comment: Speci men Type: BLOOD SPECIMENOrdering Facility: [facility] Address: [address] [place] [address] Performed By: #### 2 4323-8 ####[facility] [id number] [place] [address] [place] Creatinine [Mass/Vol] 1.40 mg/dL High 0.58-0.96 [facility] Comment on above: Order Comment: Speci men Type: BLOOD SPECIMENOrdering Facility: [facility] Address: [address] [place] [address] Performed By: #### 2 4323-8 ####[facility] HOSPITALNCLI [id number] [place] [address] [place] Creatinine and Glomerular filtration rate.predicted panel (S/P/Bld) 40 mL/min/1.73m??? Low >=60 [facility] Comment on above: Order Comment: Riaz hernández Type: BLOOD SPECIMENOrdering Facility: [facility] Address: [address] [place] [address] Result Comment: Fernanda mated Glomerular Filtration Rate [...] actual GFR. Performed By: #### 2 4323-8 ####[facility] [id number] [place] [address] [place] Glucose [Mass/Vol] 118 mg/dL High 74-99 [facility] Comment on above: Order Comment: Riaz hernández Type: BLOOD SPECIMENOrdering Facility: [facility] Address: [address] [place] [address] Result Comment: The [place] Diabetes Association (ADA) provides guidance for cutoff [...] Standards of Medical Care in Diabetes 2016, [place] [employer]. Diabetes Care. 2016.39(Suppl 1). Performed By: #### 2 4323-8 ####[facility] MILLTOWNCLIA [id number] [place] [address] [place] Potassium [Moles/Vol] 4.1 mmol/L Normal 3.7-5.1 [facility] Comment on above: Order Comment: Speci men Type: BLOOD SPECIMENOrdering Facility: [facility] Address: [address] [place] [address] Performed By: #### 2 4323-8 ####[facility] MILLWNCLIA [id number] [place] [address] [place] Protein [Mass/Vol] 6.4 g/dL Normal 6.3-8.0 [facility] Comment on above: Order Comment: Speci men Type: BLOOD SPECIMENOrdering Facility: [facility] Address: [address] [place] [address] Performed By: #### 2 4323-8 ####[facility]PITALLIA [id number] [place] [address] [place] Sodium [Moles/Vol] 137 mmol/L Normal 136-144 [facility] Comment on above: Order Comment: Speci men Type: BLOOD SPECIMENOrdering Facility: [facility] Address: [address] [place] [address] Performed By: #### 2 4323-8 ####[facility] CENTERWNCLIA [id number] [place] [address] [place] Urea nitrogen [Mass/Vol] 33 mg/dL High 7-21 [facility] Comment on above: Order Comment: Speci men Type: BLOOD SPECIMENOrdering Facility: [facility] Address: [address] [place] [address] Performed By: #### 2 4323-8 ####[facility]OSPITALNCLIA [id number] [place] [address] [place] CNOVSPon 05-17-2024 CNOVSP Visit (SP) Office (AGGYNONPOB) -- DEREKAMIRAH J ([id number]) 1950 F Date Time Provider Department 05/17/24 10:30 AM MAYTE GONZALEZ During your visit today, we recorded the following information about you: Temperature Pulse Blood pressure Weight 98 degrees 62/minute 189/76 52.6 kg Mayte Gonzalez, PERL DEVELOPER.[employer] PATROL PILOT 05/17/2024 10:59 AM Signed Gynecologic Oncology Note [facility] Chief complaint: ovarian cancer surveillance HPI: This [...] Start Date 08/09/2023 End Date 01/23/2024 Provider Jaren Mccoy, DO Chemotherapy CARBOplatin 400 mg in [...] discussed with the Patient or Patient's Authorized Personnel Officer. As applicable, any other physician, advance practice provider, medical student, or other health professional student that will be observing or involved in the sensitive examination for educational or training purposes was discussed with the Patient or Authorized Personnel Officer. The Patient or Authorized Personnel Officer has agreed to proceed with the sensitive [...] recent jum (more content not included)... Normal [facility] CNOVon 05-09-2024 CNOV Office Visit (ISSAENS 3) -- AMIRAH REED ([id number]) 1950 F Date Time Provider Department 05/09/24 11:00 AM ROHIT MILES3 During your visit today, we recorded the following information about you: Pulse Blood pressure Weight Height 68/minute 187/97 52.6 kg 1.575 m Rohit Miles MD 05/09/2024 12:31 PM Signed Rohit Miles M.D. Colon AND Rectal Surgery [address] [facility], [address] [place] [address] SUBJECTIVE Amirah Reed is a 73 year old White [...] Mother Cancer Mother Coronary Artery Disease Father [place] age 40's, age 60's; also smoked and alcoholic Mental illness Sister Renal Disease Sister Cancer Sister other (rheumatoid arthritis) Sister Coronary Artery Disease Brother [place] age 49, smoker, recovering alcoholic Breast Cancer [...] kg/(m2) Physica (more content not included)... Normal [facility] CBC W Auto Differential pane l (Bld)on 05-07-2024 Basophils (Bld) [#/Vol] [facility] Basophils/100 WBC (Bld) 0.4 % [facility] Differential cell count method Nom (Bld) Auto [facility] Eosinophils (Bld) [#/Vol] 0.08 10*3/uL [facility] Eosinophils/100 WBC (Bld) 1.8 % [facility] Erythrocyte distribution width (RBC) [Ratio] 14.8 % 11.5 - 15.0 % [facility] Hematocrit (Bld) [Volume fraction] 26.5 % Low 36.0 - 46.0 % [facility] Hemoglobin (Bld) [Mass/Vol] 8.9 g/dL Low 11.5 - 15.5 g/dL [facility] Immature granulocytes (Bld) [#/Vol] [facility] Immature granulocytes/100 WBC (Bld) 0.2 % [facility] Interpretation and review of laboratory results Abnormal [facility] Lymphocytes (Bld) [#/Vol] 0.85 10*3/uL Low [facility] Lymphocytes/100 WBC (Bld) 18.6 % [facility] MCH (RBC) [Entitic mass] 36.2 pg High 26.0 - 34.0 pg [facility] MCHC (RBC) [Mass/Vol] 33.6 g/dL 30.5 - 36.0 g/dL [facility] MCV (RBC) [Entitic vol] 107.7 fL High 80.0 - 100.0 fL [facility] Monocytes (Bld) [#/Vol] 0.37 10*3/uL [facility] Monocytes/100 WBC (Bld) 8.1 % [facility] Neutrophils (Bld) [#/Vol] 3.23 10*3/uL [facility] Neutrophils/100 WBC (Bld) 70.9 % [facility] Nucleated RBC (Bld) [#/Vol] [facility] Nucleated RBC/100 WBC (Bld) [Ratio] 0.0 % /100 WBC [facility] Platelet mean volume (Bld) [Entitic vol] 10.9 fL 9.0 - 12.7 fL [facility] Platelets (Bld) [#/Vol] 143 10*3/uL Low [facility] RBC (Bld) [#/Vol] 2.46 10*6/uL Low 3.90 - 5.2 0 m/uL [facility] WBC (Bld) [#/Vol] 4.56 10*3/uL [facility] Comprehensive metabolic 2000 panelOrdered By: Sophia Hall on 05-07-2024 Albumin [Mass/Vol] 4.2 g/dL 3.9 - 4.9 g/dL [facility] ALP [Catalytic activity/Vol] 558 U/L High 34 - 123 U/L [facility] ALT [Catalytic activity/Vol] 79 U/L High 7 - 38 U/L [facility] Anion gap [Moles/Vol] 13 mmol/L 8 - 15 mmol/L [facility] AST [Catalytic activity/Vol] 28 U/L 13 - 35 U/L [facility] Bilirubin [Mass/Vol] 0.7 mg/dL 0.2 - 1 .3 mg/dL [facility] Calcium [Mass/Vol] 10.0 mg/dL 8.5 - 10. 2 mg/dL [facility] Chloride [Moles/Vol] 100 mmol/L 98 - 10 7 mmol/L [facility] CO2 [Moles/Vol] 26 mmol/L 22 - 30 mmol/L [facility] Creatinine [Mass/Vol] 1.27 mg/dL High 0.58 - 0.96 mg/dL [facility] GFR/1.73 sq M.predicted among non-blacks MDRD (S/P/Bld) [Vol rate/Area] 45 mL/min/{1.73_m2} Low - PINF [facility] Comment on above: Estimated Glomerular Filtration [...] 101 mg/dL High 74 - 99 mg/dL [facility] Comment on above: The [place] Di[employer] Association (ADA) provides guidance for [...] Standards of Medical Care in Diabetes 2016, [place] [employer]. Diabetes Care. 2016.39(Suppl 1). Interpretation and review of laboratory results Abnormal [facility] Potassium [Moles/Vol] 4.3 mmol/L 3.7 - 5.1 mmol/L [facility] Protein [Mass/Vol] 6.7 g/dL 6.3 - 8.0 g/dL [facility] Sodium [Moles/Vol] 139 mmol/L 136 - 144 mmol/L [facility] Urea nitrogen [Mass/Vol] 36 mg/dL High 7 - 21 mg/dL [facility] CBC W Auto Differential pane l (Bld)on 05-03-2024 Basophils (Bld) [#/Vol] [facility] Basophils/100 WBC (Bld) 0.5 % [facility] Differential cell count method Nom (Bld) Auto [facility] Eosinophils (Bld) [#/Vol] 0.13 10*3/uL [facility] Eosinophils/100 WBC (Bld) 2.9 % [facility] Erythrocyte distribution width (RBC) [Ratio] 14.5 % 11.5 - 15.0 % [facility] Hematocrit (Bld) [Volume fraction] 26.5 % Low 36.0 - 46.0 % [facility] Hemoglobin (Bld) [Mass/Vol] 9.1 g/dL Low 11.5 - 15.5 g/dL [facility] Immature granulocytes (Bld) [#/Vol] [facility] Immature granulocytes/100 WBC (Bld) 0.5 % [facility] Interpretation and review of laboratory results Abnormal [facility] Lymphocytes (Bld) [#/Vol] 0.88 10*3/uL Low [facility] Lymphocytes/100 WBC (Bld) 19.9 % [facility] MCH (RBC) [Entitic mass] 36.4 pg High 26.0 - 34.0 pg [facility] MCHC (RBC) [Mass/Vol] 34.3 g/dL 30.5 - 36.0 g/dL [facility] MCV (RBC) [Entitic vol] 106.0 fL High 80.0 - 100.0 fL [facility] Monocytes (Bld) [#/Vol] 0.37 10*3/uL NINF [facility] Monocytes/100 WBC (Bld) 8.4 % [facility] Neutrophils (Bld) [#/Vol] 3.00 10*3/uL [facility] Neutrophils/100 WBC (Bld) 67.8 % [facility] Nucleated RBC (Bld) [#/Vol] [facility] Nucleated RBC/100 WBC (Bld) [Ratio] 0.0 % /100 WBC [facility] Platelet mean volume (Bld) [Entitic vol] 10.7 fL 9.0 - 12.7 fL [facility] Platelets (Bld) [#/Vol] 136 10*3/uL Low [facility] RBC (Bld) [#/Vol] 2.50 10*6/uL Low 3.90 - 5.2 0 m/uL [facility] WBC (Bld) [#/Vol] 4.42 10*3/uL [facility] Comprehensive metabolic 2000 panelOrdered By: Sophia Hall on 05-03-2024 Albumin [Mass/Vol] 4.2 g/dL 3.9 - 4.9 g/dL [facility] ALP [Catalytic activity/Vol] 876 U/L High 34 - 123 U/L [facility] ALT [Catalytic activity/Vol] 215 U/L High 7 - 38 U/L [facility] Anion gap [Moles/Vol] 11 mmol/L 8 - 15 mmol/L [facility] AST [Catalytic activity/Vol] 93 U/L High 13 - 35 U/L [facility] Bilirubin [Mass/Vol] 0.8 mg/dL 0.2 - 1 .3 mg/dL [facility] Calcium [Mass/Vol] 10.3 mg/dL High 8.5 - 10. 2 mg/dL [facility] Chloride [Moles/Vol] 102 mmol/L 98 - 10 7 mmol/L [facility] CO2 [Moles/Vol] 26 mmol/L 22 - 30 mmol/L [facility] Creatinine [Mass/Vol] 0.99 mg/dL High 0.58 - 0.96 mg/dL [facility] GFR/1.73 sq M.predicted among non-blacks MDRD (S/P/Bld) [Vol rate/Area] 60 mL/min/{1.73_m2} - PINF [facility] Comment on above: Estimated Glomerular Filtration [...] 126 mg/dL High 74 - 99 mg/dL [facility] Comment on above: The [place] Diab[employer] Association (ADA) provides guidance for [...] Standards of Medical Care in Diabetes 2016, [place] [employer]. Diabetes Care. 2016.39(Suppl 1). Interpretation and review of laboratory results Abnormal [facility] Potassium [Moles/Vol] 4.0 mmol/L 3.7 - 5.1 mmol/L [facility] Protein [Mass/Vol] 6.7 g/dL 6.3 - 8.0 g/dL [facility] Sodium [Moles/Vol] 139 mmol/L 136 - 144 mmol/L [facility] Urea nitrogen [Mass/Vol] 25 mg/dL High 7 - 21 mg/dL [facility] CBC W Auto Differential pane l (Bld)on 04-19-2024 Basophils (Bld) [#/Vol] [facility] Basophils/100 WBC (Bld) 0.5 % [facility] Differential cell count method Nom (Bld) Auto [facility] Eosinophils (Bld) [#/Vol] 0.12 10*3/uL [facility] Eosinophils/100 WBC (Bld) 2.8 % [facility] Erythrocyte distribution width (RBC) [Ratio] 12.9 % 11.5 - 15.0 % [facility] Hematocrit (Bld) [Volume fraction] 27.1 % Low 36.0 - 46.0 % [facility] Hemoglobin (Bld) [Mass/Vol] 9.4 g/dL Low 11.5 - 15.5 g/dL [facility] Immature granulocytes (Bld) [#/Vol] [facility] Immature granulocytes/100 WBC (Bld) 0.0 % [facility] Interpretation and review of laboratory results Abnormal [facility] Lymphocytes (Bld) [#/Vol] 1.09 10*3/uL [facility] Lymphocytes/100 WBC (Bld) 25.8 % [facility] MCH (RBC) [Entitic mass] 36.3 pg High 26.0 - 34.0 pg [facility] MCHC (RBC) [Mass/Vol] 34.7 g/dL 30.5 - 36.0 g/dL [facility] MCV (RBC) [Entitic vol] 104.6 fL High 80.0 - 100.0 fL [facility] Monocytes (Bld) [#/Vol] 0.33 10*3/uL [facility] Monocytes/100 WBC (Bld) 7.8 % [facility] Neutrophils (Bld) [#/Vol] 2.66 10*3/uL [facility] Neutrophils/100 WBC (Bld) 63.1 % [facility] Nucleated RBC (Bld) [#/Vol] [facility] Nucleated RBC/100 WBC (Bld) [Ratio] 0.0 % /100 WBC [facility] Platelet mean volume (Bld) [Entitic vol] 10.4 fL 9.0 - 12.7 fL [facility] Platelets (Bld) [#/Vol] 119 10*3/uL Low [facility] RBC (Bld) [#/Vol] 2.59 10*6/uL Low 3.90 - 5.2 0 m/uL [facility] WBC (Bld) [#/Vol] 4.22 10*3/uL [facility] CBC W Auto Differential pane l (Bld)on 04-12-2024 Basophils (Bld) [#/Vol] [facility] Basophils/100 WBC (Bld) 0.5 % [facility] Differential cell count method Nom (Bld) Auto [facility] Eosinophils (Bld) [#/Vol] 0.10 10*3/uL [facility] Eosinophils/100 WBC (Bld) 2.5 % [facility] Erythrocyte distribution width (RBC) [Ratio] 12.5 % 11.5 - 15.0 % [facility] Hematocrit (Bld) [Volume fraction] 27.6 % Low 36.0 - 46.0 % [facility] Hemoglobin (Bld) [Mass/Vol] 9.4 g/dL Low 11.5 - 15.5 g/dL [facility] Immature granulocytes (Bld) [#/Vol] [facility] Immature granulocytes/100 WBC (Bld) 0.2 % [facility] Interpretation and review of laboratory results Abnormal [facility] Lymphocytes (Bld) [#/Vol] 0.97 10*3/uL Low [facility] Lymphocytes/100 WBC (Bld) 24.1 % [facility] MCH (RBC) [Entitic mass] 35.6 pg High 26.0 - 34.0 pg [facility] MCHC (RBC) [Mass/Vol] 34.1 g/dL 30.5 - 36.0 g/dL [facility] MCV (RBC) [Entitic vol] 104.5 fL High 80.0 - 100.0 fL [facility] Monocytes (Bld) [#/Vol] 0.25 10*3/uL [facility] Monocytes/100 WBC (Bld) 6.2 % [facility] Neutrophils (Bld) [#/Vol] 2.68 10*3/uL [facility] Neutrophils/100 WBC (Bld) 66.5 % [facility] Nucleated RBC (Bld) [#/Vol] [facility] Nucleated RBC/100 WBC (Bld) [Ratio] 0.0 % /100 WBC [facility] Platelet mean volume (Bld) [Entitic vol] 10.4 fL 9.0 - 12.7 fL [facility] Platelets (Bld) [#/Vol] 114 10*3/uL Low [facility] RBC (Bld) [#/Vol] 2.64 10*6/uL Low 3.90 - 5.2 0 m/uL [facility] WBC (Bld) [#/Vol] 4.03 10*3/uL [facility] CBC W Auto Differential pane l (Bld)on 04-05-2024 Basophils (Bld) [#/Vol] [facility] Basophils/100 WBC (Bld) 0.4 % [facility] Differential cell count method Nom (Bld) Auto [facility] Eosinophils (Bld) [#/Vol] 0.16 10*3/uL [facility] Eosinophils/100 WBC (Bld) 3.6 % [facility] Erythrocyte distribution width (RBC) [Ratio] 13.1 % 11.5 - 15.0 % [facility] Hematocrit (Bld) [Volume fraction] 28.5 % Low 36.0 - 46.0 % [facility] Hemoglobin (Bld) [Mass/Vol] 9.6 g/dL Low 11.5 - 15.5 g/dL [facility] Immature granulocytes (Bld) [#/Vol] [facility] Immature granulocytes/100 WBC (Bld) 0.2 % [facility] Interpretation and review of laboratory results Abnormal [facility] Lymphocytes (Bld) [#/Vol] 1.18 10*3/uL [facility] Lymphocytes/100 WBC (Bld) 26.3 % [facility] MCH (RBC) [Entitic mass] 35.3 pg High 26.0 - 34.0 pg [facility] MCHC (RBC) [Mass/Vol] 33.7 g/dL 30.5 - 36.0 g/dL [facility] MCV (RBC) [Entitic vol] 104.8 fL High 80.0 - 100.0 fL [facility] Monocytes (Bld) [#/Vol] 0.36 10*3/uL [facility] Monocytes/100 WBC (Bld) 8.0 % [facility] Neutrophils (Bld) [#/Vol] 2.76 10*3/uL [facility] Neutrophils/100 WBC (Bld) 61.5 % [facility] Nucleated RBC (Bld) [#/Vol] NINF [facility] Nucleated RBC/100 WBC (Bld) [Ratio] 0.0 % /100 WBC [facility] Platelet mean volume (Bld) [Entitic vol] 10.1 fL 9.0 - 12.7 fL [facility] Platelets (Bld) [#/Vol] 133 10*3/uL Low [facility] RBC (Bld) [#/Vol] 2.72 10*6/uL Low 3.90 - 5.2 0 m/uL [facility] WBC (Bld) [#/Vol] 4.49 10*3/uL [facility] Comprehensive metabolic 2000 panelOrdered By: Sophia Hall on 04-05-2024 Albumin [Mass/Vol] 4.3 g/dL 3.9 - 4.9 g/dL [facility] ALP [Catalytic activity/Vol] 95 U/L 34 - 123 U/L [facility] ALT [Catalytic activity/Vol] 21 U/L 7 - 38 U/L [facility] Anion gap [Moles/Vol] 11 mmol/L 8 - 15 mmol/L [facility] AST [Catalytic activity/Vol] 30 U/L 13 - 35 U/L [facility] Bilirubin [Mass/Vol] 0.9 mg/dL 0.2 - 1 .3 mg/dL [facility] Calcium [Mass/Vol] 10.1 mg/dL 8.5 - 10. 2 mg/dL [facility] Chloride [Moles/Vol] 101 mmol/L 98 - 10 7 mmol/L [facility] CO2 [Moles/Vol] 26 mmol/L 22 - 30 mmol/L [facility] Creatinine [Mass/Vol] 1.22 mg/dL High 0.58 - 0.96 mg/dL [facility] GFR/1.73 sq M.predicted among non-blacks MDRD (S/P/Bld) [Vol rate/Area] 47 mL/min/{1.73_m2} Low - PINF [facility] Comment on above: Estimated Glomerular Filtration [...] 102 mg/dL High 74 - 99 mg/dL [facility] Comment on above: The [place] Di[employer] [place] Association (ADA) provides guidance for [...] Standards of Medical Care in Diabetes 2016, [place] [employer]. Diabetes Care. 2016.39(Suppl 1). Interpretation and review of laboratory results Abnormal [facility] Potassium [Moles/Vol] 4.2 mmol/L 3.7 - 5.1 mmol/L [facility] Protein [Mass/Vol] 6.4 g/dL 6.3 - 8.0 g/dL [facility] Sodium [Moles/Vol] 138 mmol/L 136 - 144 mmol/L [facility] Urea nitrogen [Mass/Vol] 29 mg/dL High 7 - 21 mg/dL [facility] CBC W Auto Differential pane l (Bld)on 03-29-2024 Basophils (Bld) [#/Vol] 0.03 10*3/uL [facility] Basophils/100 WBC (Bld) 0.6 % [facility] Differential cell count method Nom (Bld) Auto [facility] Eosinophils (Bld) [#/Vol] 0.10 10*3/uL [facility] Eosinophils/100 WBC (Bld) 2.0 % [facility] Erythrocyte distribution width (RBC) [Ratio] 14.3 % 11.5 - 15.0 % [facility] Hematocrit (Bld) [Volume fraction] 29.5 % Low 36.0 - 46.0 % [facility] Hemoglobin (Bld) [Mass/Vol] 9.9 g/dL Low 11.5 - 15.5 g/dL [facility] Immature granulocytes (Bld) [#/Vol] [facility] Immature granulocytes/100 WBC (Bld) 0.4 % [facility] Interpretation and review of laboratory results Abnormal [facility] Lymphocytes (Bld) [#/Vol] 1.10 10*3/uL [facility] Lymphocytes/100 WBC (Bld) 21.7 % [facility] MCH (RBC) [Entitic mass] 34.9 pg High 26.0 - 34.0 pg [facility] MCHC (RBC) [Mass/Vol] 33.6 g/dL 30.5 - 36.0 g/dL [facility] MCV (RBC) [Entitic vol] 103.9 fL High 80.0 - 100.0 fL [facility] Monocytes (Bld) [#/Vol] 0.48 10*3/uL [facility] Monocytes/100 WBC (Bld) 9.5 % [facility] Neutrophils (Bld) [#/Vol] 3.33 10*3/uL [facility] Neutrophils/100 WBC (Bld) 65.8 % [facility] Nucleated RBC (Bld) [#/Vol] [facility] Nucleated RBC/100 WBC (Bld) [Ratio] 0.0 % /100 WBC [facility] Platelet mean volume (Bld) [Entitic vol] 10.1 fL 9.0 - 12.7 fL [facility] Platelets (Bld) [#/Vol] 156 10*3/uL [facility] RBC (Bld) [#/Vol] 2.84 10*6/uL Low 3.90 - 5.2 0 m/uL [facility] WBC (Bld) [#/Vol] 5.06 10*3/uL [facility] CBC W Auto Differential pane l (Bld)on 03-21-2024 Basophils (Bld) [#/Vol] [facility] Basophils/100 WBC (Bld) 0.4 % [facility] Differential cell count method Nom (Bld) Auto [facility] Eosinophils (Bld) [#/Vol] 0.11 10*3/uL [facility] Eosinophils/100 WBC (Bld) 2.4 % [facility] Erythrocyte distribution width (RBC) [Ratio] 16.5 % High 11.5 - 15.0 % [facility] Hematocrit (Bld) [Volume fraction] 28.2 % Low 36.0 - 46.0 % [facility] Hemoglobin (Bld) [Mass/Vol] 9.3 g/dL Low 11.5 - 15.5 g/dL [facility] Immature granulocytes (Bld) [#/Vol] NINF [facility] Immature granulocytes/100 WBC (Bld) 0.4 % [facility] Interpretation and review of laboratory results Abnormal [facility] Lymphocytes (Bld) [#/Vol] 1.23 10*3/uL [facility] Lymphocytes/100 WBC (Bld) 26.7 % [facility] MCH (RBC) [Entitic mass] 34.8 pg High 26.0 - 34.0 pg [facility] MCHC (RBC) [Mass/Vol] 33.0 g/dL 30.5 - 36.0 g/dL [facility] MCV (RBC) [Entitic vol] 105.6 fL High 80.0 - 100.0 fL [facility] Monocytes (Bld) [#/Vol] 0.42 10*3/uL [facility] Monocytes/100 WBC (Bld) 9.1 % [facility] Neutrophils (Bld) [#/Vol] 2.81 10*3/uL [facility] Neutrophils/100 WBC (Bld) 61.0 % [facility] Nucleated RBC (Bld) [#/Vol] NINF [facility] Nucleated RBC/100 WBC (Bld) [Ratio] 0.0 % /100 WBC [facility] Platelet mean volume (Bld) [Entitic vol] 9.9 fL 9.0 - 12.7 fL [facility] Platelets (Bld) [#/Vol] 137 10*3/uL Low [facility] RBC (Bld) [#/Vol] 2.67 10*6/uL Low 3.90 - 5.2 0 m/uL [facility] WBC (Bld) [#/Vol] 4.61 10*3/uL [facility] No Panel Informationon 03-21 [facility] RETICULOCYTE COUNTon 024 Reticulocytes (Bld) [#/Vol] 0.035 10*3/uL [facility] Reticulocytes (Bld) [#/Vol]o n 03-21-2024 Interpretation and review of laboratory results Normal [facility] Reticulocytes/100 RBC (Bld) 1.3 % 0.4 - 2.0 % [facility] CBC W Auto Differential pane l (Bld)on 03-19-2024 Basophils (Bld) [#/Vol] 0.03 10*3/uL [facility] Basophils/100 WBC (Bld) 0.7 % [facility] Differential cell count method Nom (Bld) Auto [facility] Eosinophils (Bld) [#/Vol] 0.07 10*3/uL [facility] Eosinophils/100 WBC (Bld) 1.7 % [facility] Erythrocyte distribution width (RBC) [Ratio] 17.2 % High 11.5 - 15.0 % [facility] Hematocrit (Bld) [Volume fraction] 27.1 % Low 36.0 - 46.0 % [facility] Hemoglobin (Bld) [Mass/Vol] 9.1 g/dL Low 11.5 - 15.5 g/dL [facility] Immature granulocytes (Bld) [#/Vol] [facility] Immature granulocytes/100 WBC (Bld) 0.2 % [facility] Interpretation and review of laboratory results Abnormal [facility] Lymphocytes (Bld) [#/Vol] 1.28 10*3/uL [facility] Lymphocytes/100 WBC (Bld) 30.7 % [facility] MCH (RBC) [Entitic mass] 34.9 pg High 26.0 - 34.0 pg [facility] MCHC (RBC) [Mass/Vol] 33.6 g/dL 30.5 - 36.0 g/dL [facility] MCV (RBC) [Entitic vol] 103.8 fL High 80.0 - 100.0 fL [facility] Monocytes (Bld) [#/Vol] 0.41 10*3/uL [facility] Monocytes/100 WBC (Bld) 9.8 % [facility] Neutrophils (Bld) [#/Vol] 2.37 10*3/uL [facility] Neutrophils/100 WBC (Bld) 56.9 % [facility] Nucleated RBC (Bld) [#/Vol] [facility] Nucleated RBC/100 WBC (Bld) [Ratio] 0.0 % /100 WBC [facility] Platelet mean volume (Bld) [Entitic vol] 9.8 fL 9.0 - 12.7 fL [facility] Platelets (Bld) [#/Vol] 132 10*3/uL Low [facility] RBC (Bld) [#/Vol] 2.61 10*6/uL Low 3.90 - 5.2 0 m/uL [facility] WBC (Bld) [#/Vol] 4.17 10*3/uL [facility] Comprehensive metabolic 2000 panelOrdered By: Sophia Hall on 03-19-2024 Albumin [Mass/Vol] 4.3 g/dL 3.9 - 4.9 g/dL [facility] ALP [Catalytic activity/Vol] 91 U/L 34 - 123 U/L [facility] ALT [Catalytic activity/Vol] 23 U/L 7 - 38 U/L [facility] Anion gap [Moles/Vol] 13 mmol/L 8 - 15 mmol/L [facility] AST [Catalytic activity/Vol] 29 U/L 13 - 35 U/L [facility] Bilirubin [Mass/Vol] 0.8 mg/dL 0.2 - 1 .3 mg/dL [facility] Calcium [Mass/Vol] 9.4 mg/dL 8.5 - 10. 2 mg/dL [facility] Chloride [Moles/Vol] 103 mmol/L 98 - 10 7 mmol/L [facility] CO2 [Moles/Vol] 24 mmol/L 22 - 30 mmol/L [facility] Creatinine [Mass/Vol] 1.17 mg/dL High 0.58 - 0.96 mg/dL [facility] GFR/1.73 sq M.predicted among non-blacks MDRD (S/P/Bld) [Vol rate/Area] 49 mL/min/{1.73_m2} Low - PINF [facility] Comment on above: Estimated Glomerular Filtration [...] 122 mg/dL High 74 - 99 mg/dL [facility] Comment on above: The [place] [employer] (ADA) provides guidance for [...] Standards of Medical Care in Diabetes 2016, [place] [employer]. Diabetes Care. 2016.39(Suppl 1). Interpretation and review of laboratory results Abnormal [facility] Potassium [Moles/Vol] 3.9 mmol/L 3.7 - 5.1 mmol/L [facility] Protein [Mass/Vol] 6.4 g/dL 6.3 - 8.0 g/dL [facility] Sodium [Moles/Vol] 140 mmol/L 136 - 144 mmol/L [facility] Urea nitrogen [Mass/Vol] 28 mg/dL High 7 - 21 mg/dL [facility] CBC W Auto Differential pane l (Bld)on 02-28-2024 Basophils (Bld) [#/Vol] [facility] Basophils/100 WBC (Bld) 0.3 % [facility] Differential cell count method Nom (Bld) Auto [facility] Eosinophils (Bld) [#/Vol] 0.16 10*3/uL [facility] Eosinophils/100 WBC (Bld) 5.3 % [facility] Erythrocyte distribution width (RBC) [Ratio] 20.1 % High 11.5 - 15.0 % [facility] Hematocrit (Bld) [Volume fraction] 27.1 % Low 36.0 - 46.0 % [facility] Hemoglobin (Bld) [Mass/Vol] 9.0 g/dL Low 11.5 - 15.5 g/dL [facility] Immature granulocytes (Bld) [#/Vol] [facility] Immature granulocytes/100 WBC (Bld) 0.3 % [facility] Interpretation and review of laboratory results Abnormal [facility] Lymphocytes (Bld) [#/Vol] 0.99 10*3/uL Low [facility] Lymphocytes/100 WBC (Bld) 32.6 % [facility] MCH (RBC) [Entitic mass] 33.0 pg 26.0 - 34.0 pg [facility] MCHC (RBC) [Mass/Vol] 33.2 g/dL 30.5 - 36.0 g/dL [facility] MCV (RBC) [Entitic vol] 99.3 fL 80.0 - 100.0 fL [facility] Monocytes (Bld) [#/Vol] 0.29 10*3/uL [facility] Monocytes/100 WBC (Bld) 9.5 % [facility] Neutrophils (Bld) [#/Vol] 1.58 10*3/uL [facility] Neutrophils/100 WBC (Bld) 52.0 % [facility] Nucleated RBC (Bld) [#/Vol] [facility] Nucleated RBC/100 WBC (Bld) [Ratio] 0.0 % /100 WBC [facility] Platelet mean volume (Bld) [Entitic vol] 10.7 fL 9.0 - 12.7 fL [facility] Platelets (Bld) [#/Vol] 142 10*3/uL Low [facility] RBC (Bld) [#/Vol] 2.73 10*6/uL Low 3.90 - 5.2 0 m/uL [facility] WBC (Bld) [#/Vol] 3.04 10*3/uL Low [facility] CBC W Auto Differential pane l (Bld)on 02-06-2024 Basophils (Bld) [#/Vol] [facility] Basophils/100 WBC (Bld) 0.4 % [facility] Differential cell count method Nom (Bld) Auto [facility] Eosinophils (Bld) [#/Vol] [facility] Eosinophils/100 WBC (Bld) 0.8 % [facility] Erythrocyte distribution width (RBC) [Ratio] 15.3 % High 11.5 - 15.0 % [facility] Hematocrit (Bld) [Volume fraction] 26.6 % Low 36.0 - 46.0 % [facility] Hemoglobin (Bld) [Mass/Vol] 8.9 g/dL Low 11.5 - 15.5 g/dL [facility] Immature granulocytes (Bld) [#/Vol] [facility] Immature granulocytes/100 WBC (Bld) 0.4 % [facility] Interpretation and review of laboratory results Abnormal [facility] Lymphocytes (Bld) [#/Vol] 1.30 10*3/uL [facility] Lymphocytes/100 WBC (Bld) 52.6 % [facility] MCH (RBC) [Entitic mass] 31.8 pg 26.0 - 34.0 pg [facility] MCHC (RBC) [Mass/Vol] 33.5 g/dL 30.5 - 36.0 g/dL [facility] MCV (RBC) [Entitic vol] 95.0 fL 80.0 - 100.0 fL [facility] Monocytes (Bld) [#/Vol] 0.48 10*3/uL NINF [facility] Monocytes/100 WBC (Bld) 19.4 % [facility] Neutrophils (Bld) [#/Vol] 0.65 10*3/uL Low [facility] Neutrophils/100 WBC (Bld) 26.4 % [facility] Nucleated RBC (Bld) [#/Vol] [facility] Nucleated RBC/100 WBC (Bld) [Ratio] 0.0 % /100 WBC [facility] Platelet mean volume (Bld) [Entitic vol] 11.6 fL 9.0 - 12.7 fL [facility] Platelets (Bld) [#/Vol] 35 10*3/uL Low [facility] Comment on above: No clot detected. RBC (Bld) [#/Vol] 2.80 10*6/uL Low 3.90 - 5.2 0 m/uL [facility] WBC (Bld) [#/Vol] 2.47 10*3/uL Low [facility] Comprehensive metabolic 2000 panelOrdered By: Sophia Hall on 02-06-2024 Albumin [Mass/Vol] 4.3 g/dL 3.9 - 4.9 g/dL [facility] ALP [Catalytic activity/Vol] 150 U/L High 34 - 123 U/L [facility] ALT [Catalytic activity/Vol] 26 U/L 7 - 38 U/L [facility] Anion gap [Moles/Vol] 8 mmol/L 8 - 15 mmol/L [facility] AST [Catalytic activity/Vol] 31 U/L 13 - 35 U/L [facility] Bilirubin [Mass/Vol] 0.5 mg/dL 0.2 - 1 .3 mg/[facility] Calcium [Mass/Vol] 9.4 mg/dL 8.5 - 10. 2 mg/dL [facility] Chloride [Moles/Vol] 103 mmol/L 98 - 10 7 mmol/L [facility] CO2 [Moles/Vol] 28 mmol/L 22 - 30 mmol/L [facility] Creatinine [Mass/Vol] 0.90 mg/dL 0.58 - 0.96 mg/dL [facility] GFR/1.73 sq M.predicted among non-blacks MDRD (S/P/Bld) [Vol rate/Area] 68 mL/min/{1.73_m2} - PINF [facility] Comment on above: Estimated Glomerular Filtration [...] 113 mg/dL High 74 - 99 mg/dL [facility] Comment on above: The [place] [employer] (ADA) provides guidance for [...] Standards of Medical Care in Diabetes 2016, [place] [employer]. Diabetes Care. 2016.39(Suppl 1). Interpretation and review of laboratory results Abnormal [facility] Potassium [Moles/Vol] 3.8 mmol/L 3.7 - 5.1 mmol/L [facility] Protein [Mass/Vol] 6.7 g/dL 6.3 - 8.0 g/dL [facility] Sodium [Moles/Vol] 139 mmol/L 136 - 144 mmol/L [facility] Urea nitrogen [Mass/Vol] 28 mg/dL High 7 - 21 mg/dL [facility] CBC W Auto Differential pane l (Bld)on 01-23-2024 Basophils (Bld) [#/Vol] [facility] Basophils/100 WBC (Bld) 0.3 % [facility] Differential cell count method Nom (Bld) Auto [facility] Eosinophils (Bld) [#/Vol] 0.11 10*3/uL [facility] Eosinophils/100 WBC (Bld) 3.2 % [facility] Erythrocyte distribution width (RBC) [Ratio] 15.1 % High 11.5 - 15.0 % [facility] Hematocrit (Bld) [Volume fraction] 24.0 % Low 36.0 - 46.0 % [facility] Hemoglobin (Bld) [Mass/Vol] 7.9 g/dL Low 11.5 - 15.5 g/dL [facility] Immature granulocytes (Bld) [#/Vol] [facility] Immature granulocytes/100 WBC (Bld) 0.3 % [facility] Interpretation and review of laboratory results Abnormal [facility] Lymphocytes (Bld) [#/Vol] 1.02 10*3/uL [facility] Lymphocytes/100 WBC (Bld) 29.8 % [facility] MCH (RBC) [Entitic mass] 32.1 pg 26.0 - 34.0 pg [facility] MCHC (RBC) [Mass/Vol] 32.9 g/dL 30.5 - 36.0 g/dL [facility] MCV (RBC) [Entitic vol] 97.6 fL 80.0 - 100.0 fL [facility] Monocytes (Bld) [#/Vol] 0.32 10*3/uL [facility] Monocytes/100 WBC (Bld) 9.4 % [facility] Neutrophils (Bld) [#/Vol] 1.95 10*3/uL [facility] Neutrophils/100 WBC (Bld) 57.0 % [facility] Nucleated RBC (Bld) [#/Vol] [facility] Nucleated RBC/100 WBC (Bld) [Ratio] 0.0 % /100 WBC [facility] Platelet mean volume (Bld) [Entitic vol] 10.7 fL 9.0 - 12.7 fL [facility] Platelets (Bld) [#/Vol] 144 10*3/uL Low [facility] RBC (Bld) [#/Vol] 2.46 10*6/uL Low 3.90 - 5.2 0 m/uL [facility] WBC (Bld) [#/Vol] 3.42 10*3/uL [facility] Comprehensive metabolic 2000 panelOrdered By: Rosa Cedillo on 01-23-2024 Albumin [Mass/Vol] 4.0 g/dL 3.9 - 4.9 g/dL [facility] ALP [Catalytic activity/Vol] 152 U/L High 34 - 123 U/L [facility] ALT [Catalytic activity/Vol] 25 U/L 7 - 38 U/L [facility] Anion gap [Moles/Vol] 8 mmol/L 8 - 15 mmol/L [facility] AST [Catalytic activity/Vol] 29 U/L 13 - 35 U/L [facility] Bilirubin [Mass/Vol] 0.5 mg/dL 0.2 - 1 .3 mg/dL [facility] Calcium [Mass/Vol] 9.5 mg/dL 8.5 - 10. 2 mg/dL [facility] Chloride [Moles/Vol] 104 mmol/L 98 - 10 7 mmol/L [facility] CO2 [Moles/Vol] 27 mmol/L 22 - 30 mmol/L [facility] Creatinine [Mass/Vol] 1.01 mg/dL High 0.58 - 0.96 mg/dL [facility] GFR/1.73 sq M.predicted among non-blacks MDRD (S/P/Bld) [Vol rate/Area] 59 mL/min/{1.73_m2} Low - PINF [facility] Comment on above: Estimated Glomerular Filtration [...] 113 mg/dL High 74 - 99 mg/dL [facility] Comment on above: The [place] [employer] (ADA) provides guidance for [...] Standards of Medical Care in Diabetes 2016, [place] [employer]. Diabetes Care. 2016.39(Suppl 1). Interpretation and review of laboratory results Abnormal [facility] Potassium [Moles/Vol] 3.9 mmol/L 3.7 - 5.1 mmol/L [facility] Protein [Mass/Vol] 6.3 g/dL 6.3 - 8.0 g/dL [facility] Sodium [Moles/Vol] 139 mmol/L 136 - 144 mmol/L [facility] Urea nitrogen [Mass/Vol] 32 mg/dL High 7 - 21 mg/dL [facility] CBC W Auto Differential pane l (Bld)on 01-19-2024 Basophils (Bld) [#/Vol] [facility] Basophils/100 WBC (Bld) 0.3 % [facility] Differential cell count method Nom (Bld) Auto [facility] Eosinophils (Bld) [#/Vol] 0.07 10*3/uL [facility] Eosinophils/100 WBC (Bld) 1.8 % [facility] Erythrocyte distribution width (RBC) [Ratio] 13.7 % 11.5 - 15.0 % [facility] Hematocrit (Bld) [Volume fraction] 23.2 % Low 36.0 - 46.0 % [facility] Hemoglobin (Bld) [Mass/Vol] 7.8 g/dL Low 11.5 - 15.5 g/dL [facility] Immature granulocytes (Bld) [#/Vol] [facility] Immature granulocytes/100 WBC (Bld) 0.5 % [facility] Interpretation and review of laboratory results Abnormal [facility] Lymphocytes (Bld) [#/Vol] 1.36 10*3/uL [facility] Lymphocytes/100 WBC (Bld) 35.2 % [facility] MCH (RBC) [Entitic mass] 32.0 pg 26.0 - 34.0 pg [facility] MCHC (RBC) [Mass/Vol] 33.6 g/dL 30.5 - 36.0 g/dL [facility] MCV (RBC) [Entitic vol] 95.1 fL 80.0 - 100.0 fL [facility] Monocytes (Bld) [#/Vol] 0.26 10*3/uL [facility] Monocytes/100 WBC (Bld) 6.7 % [facility] Neutrophils (Bld) [#/Vol] 2.14 10*3/uL [facility] Neutrophils/100 WBC (Bld) 55.5 % [facility] Nucleated RBC (Bld) [#/Vol] [facility] Nucleated RBC/100 WBC (Bld) [Ratio] 0.0 % /100 WBC [facility] Platelet mean volume (Bld) [Entitic vol] 11.1 fL 9.0 - 12.7 fL [facility] Platelets (Bld) [#/Vol] 45 10*3/uL Low [facility] Comment on above: No clot detected. RBC (Bld) [#/Vol] 2.44 10*6/uL Low 3.90 - 5.2 0 m/uL [facility] WBC (Bld) [#/Vol] 3.86 10*3/uL [facility] CBC W Auto Differential pane l (Bld)on 01-16-2024 Basophils (Bld) [#/Vol] [facility] Basophils/100 WBC (Bld) 0.3 % [facility] Differential cell count method Nom (Bld) Auto [facility] Eosinophils (Bld) [#/Vol] 0.05 10*3/uL [facility] Eosinophils/100 WBC (Bld) 1.6 % [facility] Erythrocyte distribution width (RBC) [Ratio] 13.1 % 11.5 - 15.0 % [facility] Hematocrit (Bld) [Volume fraction] 22.9 % Low 36.0 - 46.0 % [facility] Hemoglobin (Bld) [Mass/Vol] 8.0 g/dL Low 11.5 - 15.5 g/dL [facility] Immature granulocytes (Bld) [#/Vol] [facility] Immature granulocytes/100 WBC (Bld) 0.6 % [facility] Interpretation and review of laboratory results Abnormal [facility] Lymphocytes (Bld) [#/Vol] 1.42 10*3/uL [facility] Lymphocytes/100 WBC (Bld) 46.1 % [facility] MCH (RBC) [Entitic mass] 33.1 pg 26.0 - 34.0 pg [facility] MCHC (RBC) [Mass/Vol] 34.9 g/dL 30.5 - 36.0 g/dL [facility] MCV (RBC) [Entitic vol] 94.6 fL 80.0 - 100.0 fL [facility] Monocytes (Bld) [#/Vol] 0.35 10*3/uL [facility] Monocytes/100 WBC (Bld) 11.4 % [facility] Neutrophils (Bld) [#/Vol] 1.23 10*3/uL Low [facility] Neutrophils/100 WBC (Bld) 40.0 % [facility] Nucleated RBC (Bld) [#/Vol] [facility] Nucleated RBC/100 WBC (Bld) [Ratio] 0.0 % /100 WBC [facility] Platelet mean volume (Bld) [Entitic vol] [facility] Comment on above: Unable to Report. Platelets (Bld) [#/Vol] 14 10*3/uL Low [facility] Comment on above: No clot detected. RBC (Bld) [#/Vol] 2.42 10*6/uL Low 3.90 - 5.2 0 m/uL [facility] WBC (Bld) [#/Vol] 3.08 10*3/uL Low [facility] Comprehensive metabolic 2000 panelOrdered By: Rosa Cedillo on 01-16-2024 Albumin [Mass/Vol] 4.0 g/dL 3.9 - 4.9 g/dL [facility] ALP [Catalytic activity/Vol] 159 U/L High 34 - 123 U/L [facility] ALT [Catalytic activity/Vol] 28 U/L 7 - 38 U/L [facility] Anion gap [Moles/Vol] 9 mmol/L 8 - 15 mmol/L [facility] AST [Catalytic activity/Vol] 35 U/L 13 - 35 U/L [facility] Bilirubin [Mass/Vol] 0.5 mg/dL 0.2 - 1 .3 mg/dL [facility] Calcium [Mass/Vol] 9.7 mg/dL 8.5 - 10. 2 mg/dL [facility] Chloride [Moles/Vol] 106 mmol/L 98 - 10 7 mmol/L [facility] CO2 [Moles/Vol] 27 mmol/L 22 - 30 mmol/L [facility] Creatinine [Mass/Vol] 1.04 mg/dL High 0.58 - 0.96 mg/dL [facility] GFR/1.73 sq M.predicted among non-blacks MDRD (S/P/Bld) [Vol rate/Area] 57 mL/min/{1.73_m2} Low - PINF [facility] [facility] Comment on above: Estimated Glomerular Filtration [...] 108 mg/dL High 74 - 99 mg/dL [facility] Comment on above: The [place] [employer] (ADA) provides guidance for [...] Standards of Medical Care in Diabetes 2016, [place] [employer]. Diabetes Care. 2016.39(Suppl 1). Interpretation and review of laboratory results Abnormal [facility] Potassium [Moles/Vol] 3.8 mmol/L 3.7 - 5.1 mmol/L [facility] Protein [Mass/Vol] 6.5 g/dL 6.3 - 8.0 g/dL [facility] Sodium [Moles/Vol] 142 mmol/L 136 - 144 mmol/L [facility] Urea nitrogen [Mass/Vol] 24 mg/dL High 7 - 21 mg/dL [facility] [place] 125 RICHARDDon 12-28-2023 Cancer Ag 125 Qn 26 [arb'U]/mL NINF - 39 U/mL [facility] Comment on above: CA 125 test [...] (CA 125 II) [package insert V 1.0 Swazi]. [facility], [place], [place] (April 2015) CBC W Auto Differential pane l (Bld)on 12-28-2023 Basophils (Bld) [#/Vol] [facility] Basophils/100 WBC (Bld) 0.0 % [facility] Differential cell count method Nom (Bld) Auto [facility] Eosinophils (Bld) [#/Vol] [facility] Eosinophils/100 WBC (Bld) 0.0 % [facility] Erythrocyte distribution width (RBC) [Ratio] 12.9 % 11.5 - 15.0 % [facility] Hematocrit (Bld) [Volume fraction] 27.7 % Low 36.0 - 46.0 % [facility] Hemoglobin (Bld) [Mass/Vol] 9.3 g/dL Low 11.5 - 15.5 g/dL [facility] Immature granulocytes (Bld) [#/Vol] 0.04 10*3/uL [facility] Immature granulocytes/100 WBC (Bld) 1.4 % [facility] Interpretation and review of laboratory results Abnormal [facility] Lymphocytes (Bld) [#/Vol] 0.42 10*3/uL Low [facility] Lymphocytes/100 WBC (Bld) 14.9 % [facility] MCH (RBC) [Entitic mass] 32.4 pg 26.0 - 34.0 pg [facility] MCHC (RBC) [Mass/Vol] 33.6 g/dL 30.5 - 36.0 g/dL [facility] MCV (RBC) [Entitic vol] 96.5 fL 80.0 - 100.0 fL [facility] Monocytes (Bld) [#/Vol] [facility] Monocytes/100 WBC (Bld) 0.7 % [facility] Neutrophils (Bld) [#/Vol] 2.33 10*3/uL [facility] Neutrophils/100 WBC (Bld) 83.0 % [facility] Nucleated RBC (Bld) [#/Vol] NINF [facility] Nucleated RBC/100 WBC (Bld) [Ratio] 0.0 % /100 WBC [facility] Platelet mean volume (Bld) [Entitic vol] 11.2 fL 9.0 - 12.7 fL [facility] Platelets (Bld) [#/Vol] 77 10*3/uL Low [facility] RBC (Bld) [#/Vol] 2.87 10*6/uL Low 3.90 - 5.2 0 m/uL [facility] WBC (Bld) [#/Vol] 2.81 10*3/uL Low [facility] Cancer Ag 125 Qnon Interpretation and review of laboratory results Normal [facility] CBC W Auto Differential pane l (Bld)on 12-27-2023 Basophils (Bld) [#/Vol] [facility] Basophils/100 WBC (Bld) 0.3 % [facility] Differential cell count method Nom (Bld) Auto [facility] Eosinophils (Bld) [#/Vol] 0.07 10*3/uL [facility] Eosinophils/100 WBC (Bld) 2.0 % [facility] Erythrocyte distribution width (RBC) [Ratio] 13.0 % 11.5 - 15.0 % [facility] Hematocrit (Bld) [Volume fraction] 26.1 % Low 36.0 - 46.0 % [facility] Hemoglobin (Bld) [Mass/Vol] 8.7 g/dL Low 11.5 - 15.5 g/dL [facility] Immature granulocytes (Bld) [#/Vol] 0.03 10*3/uL [facility] Immature granulocytes/100 WBC (Bld) 0.9 % [facility] Interpretation and review of laboratory results Abnormal [facility] Lymphocytes (Bld) [#/Vol] 1.27 10*3/uL [facility] Lymphocytes/100 WBC (Bld) 36.4 % [facility] MCH (RBC) [Entitic mass] 32.3 pg 26.0 - 34.0 pg [facility] MCHC (RBC) [Mass/Vol] 33.3 g/dL 30.5 - 36.0 g/dL [facility] MCV (RBC) [Entitic vol] 97.0 fL 80.0 - 100.0 fL [facility] Monocytes (Bld) [#/Vol] 0.37 10*3/uL NINF [facility] Monocytes/100 WBC (Bld) 10.6 % [facility] Neutrophils (Bld) [#/Vol] 1.74 10*3/uL [facility] Neutrophils/100 WBC (Bld) 49.8 % [facility] Nucleated RBC (Bld) [#/Vol] NINF [facility] Nucleated RBC/100 WBC (Bld) [Ratio] 0.0 % /100 WBC [facility] Platelet mean volume (Bld) [Entitic vol] 11.1 fL 9.0 - 12.7 fL [facility] Platelets (Bld) [#/Vol] 62 10*3/uL Low [facility] Comment on above: No clot detected. RBC (Bld) [#/Vol] 2.69 10*6/uL Low 3.90 - 5.2 0 m/uL [facility] WBC (Bld) [#/Vol] 3.49 10*3/uL Low [facility] Comprehensive metabolic 2000 panelon 12-27-2023 Albumin [Mass/Vol] 4.1 g/dL 3.9 - 4.9 g/dL [facility] ALP [Catalytic activity/Vol] 180 U/L High 34 - 123 U/L [facility] ALT [Catalytic activity/Vol] 33 U/L 7 - 38 U/L [facility] Anion gap [Moles/Vol] 11 mmol/L 8 - 15 mmol/L [facility] AST [Catalytic activity/Vol] 33 U/L 13 - 35 U/L [facility] Bilirubin [Mass/Vol] 0.4 mg/dL 0.2 - 1 .3 mg/dL [facility] Calcium [Mass/Vol] 9.5 mg/dL 8.5 - 10. 2 mg/dL [facility] Chloride [Moles/Vol] 104 mmol/L 98 - 10 7 mmol/L [facility] CO2 [Moles/Vol] 26 mmol/L 22 - 30 mmol/L [facility] Creatinine [Mass/Vol] 1.00 mg/dL High 0.58 - 0.96 mg/dL [facility] GFR/1.73 sq M.predicted among non-blacks MDRD (S/P/Bld) [Vol rate/Area] 60 mL/min/{1.73_m2} - PINF [facility] Comment on above: Estimated Glomerular Filtration [...] [Mass/Vol] 96 mg/dL 74 - 99 mg/dL [facility] Comment on above: The [place] [employer] (ADA) provides guidance for [...] Standards of Medical Care in Diabetes 2016, [place] [employer]. Diabetes Care. 2016.39(Suppl 1). Interpretation and review of laboratory results Abnormal [facility] Potassium [Moles/Vol] 3.9 mmol/L 3.7 - 5.1 mmol/L [facility] Protein [Mass/Vol] 6.6 g/dL 6.3 - 8.0 g/dL [facility] Sodium [Moles/Vol] 141 mmol/L 136 - 144 mmol/L [facility] Urea nitrogen [Mass/Vol] 30 mg/dL High 7 - 21 mg/dL [facility] US Abdomen RUQon 12-06-2023 IMPRESSION: The live r is somewhat coarse and heterogeneous in appearance Otherwise normal sonographic appearance of the right upper quadrant. The gallbladder is incompletely distended. Common duct is normal in caliber Exam is limited by overlying bowel gas Greens Keeper: PAO Transcribe Date/Time: Dec 06 2023 2:21P Dictated by : SHIV FIELDS MD This examination was interpreted and the report reviewed and electronically signed by: SHIV FIELDS MD on Dec 06 2023 2:24PM [facility] DIVISION OF RADIOLOGY * * *Final Report* * * DATE OF EXAM: Dec 06 2023 2:17PM [facility] 1032 - US [facility] RIGHT UPPER QUADRANT / PROCEDURE REASON: Elevated [...] hydronephrosis. Ascites: None. DIVISION OF RADIOLOGY Provider, [facility] - 12/06/2023 * * *Final Report* * * DATE OF EXAM: Dec 06 2023 2:17PM [facility] 1032 - US [facility] RIGHT UPPER QUADRANT / PROCEDURE REASON: Elevated [...] Exam is limited by overlying bowel gas Greens Keeper: PSCB Transcribe Date/Time: Dec 06 2023 2:21P Dictated by : SHIV FIELDS MD This examination was interpreted and the report reviewed and electronically signed by: SHIV FIELDS MD on Dec 06 2023 2:24PM EST [facility] Radiology Study observation (narrative) [facility] US Abdomen RUQOrdered By: Cc f Provider on 12-06-2023 [facility] CBC W Auto Differential pane l (Bld)on 12-05-2023 Basophils (Bld) [#/Vol] 0.03 10*3/uL [facility] Basophils/100 WBC (Bld) 0.5 % [facility] Differential cell count method Nom (Bld) Auto [facility] Eosinophils (Bld) [#/Vol] 0.37 10*3/uL [facility] Eosinophils/100 WBC (Bld) 5.6 % [facility] Erythrocyte distribution width (RBC) [Ratio] 13.5 % 11.5 - 15.0 % [facility] Hematocrit (Bld) [Volume fraction] 31.6 % Low 36.0 - 46.0 % [facility] Hemoglobin (Bld) [Mass/Vol] 10.4 g/dL Low 11.5 - 15.5 g/dL [facility] Immature granulocytes (Bld) [#/Vol] NINF [facility] Immature granulocytes/100 WBC (Bld) 0.3 % [facility] Interpretation and review of laboratory results Abnormal [facility] Lymphocytes (Bld) [#/Vol] 1.51 10*3/uL [facility] Lymphocytes/100 WBC (Bld) 22.8 % [facility] MCH (RBC) [Entitic mass] 32.7 pg 26.0 - 34.0 pg [facility] MCHC (RBC) [Mass/Vol] 32.9 g/dL 30.5 - 36.0 g/dL [facility] MCV (RBC) [Entitic vol] 99.4 fL 80.0 - 100.0 fL [facility] Monocytes (Bld) [#/Vol] 0.48 10*3/uL [facility] Monocytes/100 WBC (Bld) 7.3 % [facility] Neutrophils (Bld) [#/Vol] 4.21 10*3/uL [facility] Neutrophils/100 WBC (Bld) 63.5 % [facility] Nucleated RBC (Bld) [#/Vol] NINF [facility] Nucleated RBC/100 WBC (Bld) [Ratio] 0.0 % /100 WBC [facility] Platelet mean volume (Bld) [Entitic vol] 10.4 fL 9.0 - 12.7 fL [facility] Platelets (Bld) [#/Vol] 199 10*3/uL [facility] RBC (Bld) [#/Vol] 3.18 10*6/uL Low 3.90 - 5.2 0 m/uL [facility] WBC (Bld) [#/Vol] 6.62 10*3/uL [facility] Comprehensive metabolic 2000 panelOrdered By: Rosa Cedillo on 12-05-2023 Albumin [Mass/Vol] 4.2 g/dL 3.9 - 4.9 g/dL [facility] ALP [Catalytic activity/Vol] 400 U/L High 34 - 123 U/L [facility] ALT [Catalytic activity/Vol] 69 U/L High 7 - 38 U/L [facility] Anion gap [Moles/Vol] 7 mmol/L Low 9 - 18 mmol/L [facility] AST [Catalytic activity/Vol] 53 U/L High 13 - 35 U/L [facility] Bilirubin [Mass/Vol] 0.7 mg/dL 0.2 - 1 .3 mg/dL [facility] Calcium [Mass/Vol] 9.9 mg/dL 8.5 - 10. 2 mg/dL [facility] Chloride [Moles/Vol] 103 mmol/L 97 - 10 5 mmol/L [facility] CO2 [Moles/Vol] 29 mmol/L 22 - 30 mmol/L [facility] Creatinine [Mass/Vol] 0.99 mg/dL High 0.58 - 0.96 mg/dL [facility] GFR/1.73 sq M.predicted among non-blacks MDRD (S/P/Bld) [Vol rate/Area] 61 mL/min/{1.73_m2} - PINF [facility] Comment on above: Estimated Glomerular Filtration [...] 121 mg/dL High 74 - 99 mg/dL [facility] Comment on above: The [place] [employer] (ADA) provides guidance for [...] Standards of Medical Care in Diabetes 2016, [place] [employer]. Diabetes Care. 2016.39(Suppl 1). Interpretation and review of laboratory results Abnormal [facility] Potassium [Moles/Vol] 4.0 mmol/L 3.7 - 5.1 mmol/L [facility] Protein [Mass/Vol] 7.0 g/dL 6.3 - 8.0 g/dL [facility] Sodium [Moles/Vol] 139 mmol/L 136 - 144 mmol/L [facility] Urea nitrogen [Mass/Vol] 35 mg/dL High 7 - 21 mg/dL [facility] CA 125 Zev 11-18-2023 Cancer Ag 125 Qn 107 [arb'U]/mL High NINF - 39 U/mL [facility] Comment on above: CA 125 test [...] (CA 125 II) [package insert V 1.0 Swazi]. [employer], [place], [place] (April 2015) CBC W Auto Differential pane l (Bld)on 11-18-2023 Basophils (Bld) [#/Vol] 0.04 10*3/uL [facility] Basophils/100 WBC (Bld) 0.7 % [facility] Differential cell count method Nom (Bld) Auto [facility] Eosinophils (Bld) [#/Vol] 0.71 10*3/uL High [facility] Eosinophils/100 WBC (Bld) 13.2 % [facility] Erythrocyte distribution width (RBC) [Ratio] 14.9 % 11.5 - 15.0 % [facility] Hematocrit (Bld) [Volume fraction] 30.6 % Low 36.0 - 46.0 % [facility] Hemoglobin (Bld) [Mass/Vol] 9.9 g/dL Low 11.5 - 15.5 g/dL [facility] Immature granulocytes (Bld) [#/Vol] [facility] Immature granulocytes/100 WBC (Bld) 0.2 % [facility] Interpretation and review of laboratory results Abnormal [facility] Lymphocytes (Bld) [#/Vol] 1.18 10*3/uL [facility] Lymphocytes/100 WBC (Bld) 22.0 % [facility] MCH (RBC) [Entitic mass] 32.6 pg 26.0 - 34.0 pg [facility] MCHC (RBC) [Mass/Vol] 32.4 g/dL 30.5 - 36.0 g/dL [facility] MCV (RBC) [Entitic vol] 100.7 fL High 80.0 - 100.0 fL [facility] Monocytes (Bld) [#/Vol] 0.48 10*3/uL [facility] Monocytes/100 WBC (Bld) 9.0 % [facility] Neutrophils (Bld) [#/Vol] 2.94 10*3/uL [facility] Neutrophils/100 WBC (Bld) 54.9 % [facility] Nucleated RBC (Bld) [#/Vol] [facility] Nucleated RBC/100 WBC (Bld) [Ratio] 0.0 % /100 WBC [facility] Platelet mean volume (Bld) [Entitic vol] 9.6 fL 9.0 - 12.7 fL [facility] Platelets (Bld) [#/Vol] 263 10*3/uL [facility] RBC (Bld) [#/Vol] 3.04 10*6/uL Low 3.90 - 5.2 0 m/uL [facility] WBC (Bld) [#/Vol] 5.36 10*3/uL [facility] Cancer Ag 125 Qnon Interpretation and review of laboratory results Abnormal [facility] Comprehensive metabolic 2000 panelOrdered By: Sophia Hall on 11-18-2023 Albumin [Mass/Vol] 4.0 g/dL 3.9 - 4.9 g/dL [facility] ALP [Catalytic activity/Vol] 353 U/L High 34 - 123 U/L [facility] ALT [Catalytic activity/Vol] 29 U/L 7 - 38 U/L [facility] Anion gap [Moles/Vol] 10 mmol/L 9 - 18 mmol/L [facility] AST [Catalytic activity/Vol] 31 U/L 13 - 35 U/L [facility] Bilirubin [Mass/Vol] 0.5 mg/dL 0.2 - 1 .3 mg/dL [facility] Calcium [Mass/Vol] 10.1 mg/dL 8.5 - 10. 2 mg/dL [facility] Chloride [Moles/Vol] 104 mmol/L 97 - 10 5 mmol/L [facility] CO2 [Moles/Vol] 29 mmol/L 22 - 30 mmol/L [facility] Creatinine [Mass/Vol] 1.02 mg/dL High 0.58 - 0.96 mg/dL [facility] GFR/1.73 sq M.predicted among non-blacks MDRD (S/P/Bld) [Vol rate/Area] 59 mL/min/{1.73_m2} Low - PINF [facility] Comment on above: Estimated Glomerular Filtration [...] 116 mg/dL High 74 - 99 mg/dL [facility] Comment on above: The [place] [employer] [place] [employer] (ADA) provides guidance for [...] Standards of Medical Care in Diabetes 2016, [place] [employer]. Diabetes Care. 2016.39(Suppl 1). Interpretation and review of laboratory results Abnormal [facility] Potassium [Moles/Vol] 4.3 mmol/L 3.7 - 5.1 mmol/L [facility] Protein [Mass/Vol] 7.0 g/dL 6.3 - 8.0 g/dL [facility] Sodium [Moles/Vol] 143 mmol/L 136 - 144 mmol/L [facility] Urea nitrogen [Mass/Vol] 34 mg/dL High 7 - 21 mg/dL [facility] CBC W Auto Differential pane l (Bld)on 10-10-2023 Basophils (Bld) [#/Vol] <0.11 k/uL [facility] Basophils/100 WBC (Bld) 0.2 % [facility] Differential cell count method Nom (Bld) Auto [facility] Eosinophils (Bld) [#/Vol] 0.04 10*3/uL <0.46 k/uL [facility] Eosinophils/100 WBC (Bld) 1.0 % [facility] Erythrocyte distribution width (RBC) [Ratio] 20.8 % High 11.5 - 15.0 % [facility] Hematocrit (Bld) [Volume fraction] 24.0 % Low 36.0 - 46.0 % [facility] Hemoglobin (Bld) [Mass/Vol] 8.2 g/dL Low 11.5 - 15.5 g/dL [facility] Immature granulocytes (Bld) [#/Vol] 0.08 10*3/uL <0.10 k/uL [facility] Immature granulocytes/100 WBC (Bld) 1.9 % [facility] Lymphocytes (Bld) [#/Vol] 1.20 10*3/uL 1.00 - 4.00 k/uL [facility] Lymphocytes/100 WBC (Bld) 28.8 % [facility] MCH (RBC) [Entitic mass] 32.5 pg 26.0 - 34.0 pg [facility] MCHC (RBC) [Mass/Vol] 34.2 g/dL 30.5 - 36.0 g/dL [facility] MCV (RBC) [Entitic vol] 95.2 fL 80.0 - 100.0 fL [facility] Monocytes (Bld) [#/Vol] 0.29 10*3/uL <0.87 k/uL [facility] Monocytes/100 WBC (Bld) 7.0 % [facility] Neutrophils (Bld) [#/Vol] 2.54 10*3/uL 1.45 - 7.50 k/uL [facility] Neutrophils/100 WBC (Bld) 61.1 % [facility] Nucleated RBC (Bld) [#/Vol] <0.01 k/uL [facility] Nucleated RBC/100 WBC (Bld) [Ratio] 0.0 /100 WBC [facility] Platelet mean volume (Bld) [Entitic vol] 11.2 fL 9.0 - 12.7 fL [facility] Platelets (Bld) [#/Vol] 45 10*3/uL Low 150 - 400 k/uL [facility] RBC (Bld) [#/Vol] 2.52 10*6/uL Low 3.90 - 5.2 0 m/uL [facility] WBC (Bld) [#/Vol] 4.16 10*3/uL 3.70 - 11.00 k/uL [facility] CA 125 BLDon 10-07-2023 Cancer Ag 125 Qn 96 [arb'U]/mL High <39 U/mL [facility] CBC W Auto Differential pane l (Bld)on 10-07-2023 Anisocytosis Ql (Bld) Present [facility] Basophilic stippling LM Ql (Bld) Present [facility] Basophils (Bld) [#/Vol] 0.00 10*3/uL <0.11 k/uL [facility] Basophils/100 WBC (Bld) 0.0 % [facility] Dacrocytes LM Ql (Bld) Few [facility] Differential cell count method Nom (Bld) Manual [facility] Eosinophils (Bld) [#/Vol] 0.19 10*3/uL <0.46 k/uL [facility] Eosinophils/100 WBC (Bld) 8.0 % [facility] Erythrocyte distribution width (RBC) [Ratio] 20.1 % High 11.5 - 15.0 % [facility] Hematocrit (Bld) [Volume fraction] 23.2 % Low 36.0 - 46.0 % [facility] Hemoglobin (Bld) [Mass/Vol] 7.6 g/dL Low 11.5 - 15.5 g/dL [facility] Lymphocytes (Bld) [#/Vol] 1.10 10*3/uL 1.00 - 4.00 k/uL [facility] Lymphocytes/100 WBC (Bld) 47.0 % [facility] MCH (RBC) [Entitic mass] 31.3 pg 26.0 - 34.0 pg [facility] MCHC (RBC) [Mass/Vol] 32.8 g/dL 30.5 - 36.0 g/dL [facility] MCV (RBC) [Entitic vol] 95.5 fL 80.0 - 100.0 fL [facility] Monocytes (Bld) [#/Vol] 0.40 10*3/uL <0.87 k/uL [facility] Monocytes/100 WBC (Bld) 17.0 % [facility] Neutrophils (Bld) [#/Vol] 0.66 10*3/uL Low 1.45 - 7.50 k/uL [facility] Neutrophils/100 WBC (Bld) 28.0 % [facility] Nucleated RBC (Bld) [#/Vol] <0.01 k/uL [facility] Nucleated RBC/100 WBC (Bld) [Ratio] 0.0 /100 WBC [facility] Ovalocytes LM Ql (Bld) Few Cl [facility] Platelet mean volume (Bld) [Entitic vol] 12.6 fL 9.0 - 12.7 fL [facility] Platelets (Bld) [#/Vol] 18 10*3/uL Low 150 - 400 k/uL [facility] Platelets Estimate (Bld) [#/Vol] Decreased [facility] RBC (Bld) [#/Vol] 2.43 10*6/uL Low 3.90 - 5.2 0 m/uL [facility] RBC Fragments Few Abnormal None Seen [facility] Red Cell Morph Reviewed: see result s of individual morphologies [facility] WBC (Bld) [#/Vol] 2.35 10*3/uL Low 3.70 - 11.00 k/uL [facility] Comprehensive metabolic 2000 panelon 10-07-2023 Albumin [Mass/Vol] 4.0 g/dL 3.9 - 4.9 g/dL [facility] ALP [Catalytic activity/Vol] 259 U/L High 34 - 123 [facility] [Catalytic activity/Vol] 50 U/L High 7 - 38 U/L [facility] Anion gap [Moles/Vol] 8 mmol/L Low 9 - 18 mmol/L [facility] AST [Catalytic activity/Vol] 42 U/L High 13 - 35 U/L [facility] Bilirubin [Mass/Vol] 0.5 mg/dL 0.2 - 1 .3 mg/dL [facility] Calcium [Mass/Vol] 9.6 mg/dL 8.5 - 10. 2 mg/dL [facility] Chloride [Moles/Vol] 104 mmol/L 97 - 10 5 mmol/L [facility] CO2 [Moles/Vol] 27 mmol/L 22 - 30 mmol/L [facility] Creatinine [Mass/Vol] 0.93 mg/dL 0.58 - 0.96 mg/dL [facility] Estimated Glomerular Filtration Rate 65 mL/min/1.73m >=60 mL/min/1.73 m [facility] Glucose [Mass/Vol] 108 mg/dL High 74 - 99 mg/dL [facility] Potassium [Moles/Vol] 4.2 mmol/L 3.7 - 5.1 mmol/L [facility] Protein [Mass/Vol] 6.6 g/dL 6.3 - 8.0 g/dL [facility] Sodium [Moles/Vol] 139 mmol/L 136 - 144 mmol/L [facility] Urea nitrogen [Mass/Vol] 33 mg/dL High 7 - 21 mg/dL [facility] CBC W Auto Differential pane l (Bld)on 09-20-2023 Basophils (Bld) [#/Vol] <0.11 k/uL [facility] Basophils/100 WBC (Bld) 0.0 % [facility] Differential cell count method Nom (Bld) Auto [facility] Eosinophils (Bld) [#/Vol] <0.46 k/uL [facility] Eosinophils/100 WBC (Bld) 0.0 % [facility] Erythrocyte distribution width (RBC) [Ratio] 19.7 % High 11.5 - 15.0 % [facility] Hematocrit (Bld) [Volume fraction] 27.0 % Low 36.0 - 46.0 % [facility] Hemoglobin (Bld) [Mass/Vol] 9.0 g/dL Low 11.5 - 15.5 g/dL [facility] Immature granulocytes (Bld) [#/Vol] 0.03 10*3/uL <0.10 k/uL [facility] Immature granulocytes/100 WBC (Bld) 0.7 % [facility] Lymphocytes (Bld) [#/Vol] 0.48 10*3/uL Low 1.00 - 4.00 k/uL [facility] Lymphocytes/100 WBC (Bld) 11.1 % [facility] MCH (RBC) [Entitic mass] 30.8 pg 26.0 - 34.0 pg [facility] MCHC (RBC) [Mass/Vol] 33.3 g/dL 30.5 - 36.0 g/dL [facility] MCV (RBC) [Entitic vol] 92.5 fL 80.0 - 100.0 fL [facility] Monocytes (Bld) [#/Vol] <0.87 k/uL [facility] Monocytes/100 WBC (Bld) 0.5 % [facility] Neutrophils (Bld) [#/Vol] 3.80 10*3/uL 1.45 - 7.50 k/uL [facility] Neutrophils/100 WBC (Bld) 87.7 % [facility] Nucleated RBC (Bld) [#/Vol] <0.01 k/uL [facility] Nucleated RBC/100 WBC (Bld) [Ratio] 0.0 /100 WBC [facility] Platelet mean volume (Bld) [Entitic vol] 10.7 fL 9.0 - 12.7 fL [facility] Platelets (Bld) [#/Vol] 109 10*3/uL Low 150 - 400 k/uL [facility] RBC (Bld) [#/Vol] 2.92 10*6/uL Low 3.90 - 5.2 0 m/uL [facility] WBC (Bld) [#/Vol] 4.33 10*3/uL 3.70 - 11.00 k/uL [facility] CBC W Auto Differential pane l (Bld)on 09-16-2023 Basophils (Bld) [#/Vol] <0.11 k/uL [facility] Basophils/100 WBC (Bld) 0.4 % [facility] Differential cell count method Nom (Bld) Auto [facility] Eosinophils (Bld) [#/Vol] 0.10 10*3/uL <0.46 k/uL [facility] Eosinophils/100 WBC (Bld) 3.8 % [facility] Erythrocyte distribution width (RBC) [Ratio] 19.3 % High 11.5 - 15.0 % [facility] Hematocrit (Bld) [Volume fraction] 25.3 % Low 36.0 - 46.0 % [facility] Hemoglobin (Bld) [Mass/Vol] 8.5 g/dL Low 11.5 - 15.5 g/dL [facility] Immature granulocytes (Bld) [#/Vol] <0.10 k/uL [facility] Immature granulocytes/100 WBC (Bld) 0.4 % [facility] Lymphocytes (Bld) [#/Vol] 1.16 10*3/uL 1.00 - 4.00 k/uL [facility] Lymphocytes/100 WBC (Bld) 44.6 % [facility] MCH (RBC) [Entitic mass] 30.8 pg 26.0 - 34.0 pg [facility] MCHC (RBC) [Mass/Vol] 33.6 g/dL 30.5 - 36.0 g/dL [facility] MCV (RBC) [Entitic vol] 91.7 fL 80.0 - 100.0 fL [facility] Monocytes (Bld) [#/Vol] 0.51 10*3/uL <0.87 k/uL [facility] Monocytes/100 WBC (Bld) 19.6 % [facility] Neutrophils (Bld) [#/Vol] 0.81 10*3/uL Low 1.45 - 7.50 k/uL [facility] Neutrophils/100 WBC (Bld) 31.2 % [facility] Nucleated RBC (Bld) [#/Vol] <0.01 k/uL [facility] Nucleated RBC/100 WBC (Bld) [Ratio] 0.0 /100 WBC [facility] Platelet mean volume (Bld) [Entitic vol] 10.9 fL 9.0 - 12.7 fL [facility] Platelets (Bld) [#/Vol] 66 10*3/uL Low 150 - 400 k/uL [facility] RBC (Bld) [#/Vol] 2.76 10*6/uL Low 3.90 - 5.2 0 m/uL [facility] WBC (Bld) [#/Vol] 2.60 10*3/uL Low 3.70 - 11.00 k/uL [facility] Comprehensive metabolic 2000 panelon 09-16-2023 Albumin [Mass/Vol] 3.8 g/dL Low 3.9 - 4.9 g/dL [facility] ALP [Catalytic activity/Vol] 258 U/L High 34 - 123 U/L [facility] ALT [Catalytic activity/Vol] 39 U/L High 7 - 38 U/L [facility] Anion gap [Moles/Vol] 8 mmol/L Low 9 - 18 mmol/L [facility] AST [Catalytic activity/Vol] 35 U/L 13 - 35 U/L [facility] Bilirubin [Mass/Vol] 0.5 mg/dL 0.2 - 1 .3 mg/dL [facility] Calcium [Mass/Vol] 9.3 mg/dL 8.5 - 10. 2 mg/dL [facility] Chloride [Moles/Vol] 101 mmol/L 97 - 10 5 mmol/L [facility] CO2 [Moles/Vol] 28 mmol/L 22 - 30 mmol/L [facility] Creatinine [Mass/Vol] 1.02 mg/dL High 0.58 - 0.96 mg/dL [facility] Estimated Glomerular Filtration Rate 59 mL/min/1.73m Low >=60 mL/min/1.73 m [facility] Glucose [Mass/Vol] 98 mg/dL 74 - 99 mg/dL [facility] Potassium [Moles/Vol] 4.2 mmol/L 3.7 - 5.1 mmol/L [facility] Protein [Mass/Vol] 6.1 g/dL Low 6.3 - 8.0 g/dL [facility] Sodium [Moles/Vol] 137 mmol/L 136 - 144 mmol/L [facility] Urea nitrogen [Mass/Vol] 24 mg/dL High 7 - 21 mg/dL [facility] CA 125 BLDon 08-26-2023 Cancer Ag 125 Qn 303 [arb'U]/mL High <39 U/mL [facility] CBC W Auto Differential pane l (Bld)on 08-26-2023 Basophils (Bld) [#/Vol] 0.03 10*3/uL <0.11 k/uL [facility] Basophils/100 WBC (Bld) 0.6 % [facility] Differential cell count method Nom (Bld) Auto [facility] Eosinophils (Bld) [#/Vol] 0.19 10*3/uL <0.46 k/uL [facility] Eosinophils/100 WBC (Bld) 3.5 % [facility] Erythrocyte distribution width (RBC) [Ratio] 16.1 % High 11.5 - 15.0 % [facility] Hematocrit (Bld) [Volume fraction] 28.5 % Low 36.0 - 46.0 % [facility] Hemoglobin (Bld) [Mass/Vol] 9.1 g/dL Low 11.5 - 15.5 g/dL [facility] Immature granulocytes (Bld) [#/Vol] 0.08 10*3/uL <0.10 k/uL [facility] Immature granulocytes/100 WBC (Bld) 1.5 % [facility] Lymphocytes (Bld) [#/Vol] 1.33 10*3/uL 1.00 - 4.00 k/uL [facility] Lymphocytes/100 WBC (Bld) 24.5 % [facility] MCH (RBC) [Entitic mass] 29.3 pg 26.0 - 34.0 pg [facility] MCHC (RBC) [Mass/Vol] 31.9 g/dL 30.5 - 36.0 g/dL [facility] MCV (RBC) [Entitic vol] 91.6 fL 80.0 - 100.0 fL [facility] Monocytes (Bld) [#/Vol] 0.55 10*3/uL <0.87 k/uL [facility] Monocytes/100 WBC (Bld) 10.1 % [facility] Neutrophils (Bld) [#/Vol] 3.24 10*3/uL 1.45 - 7.50 k/uL [facility] Neutrophils/100 WBC (Bld) 59.8 % [facility] Nucleated RBC (Bld) [#/Vol] <0.01 k/uL [facility] Nucleated RBC/100 WBC (Bld) [Ratio] 0.0 /100 WBC [facility] Platelet mean volume (Bld) [Entitic vol] 10.7 fL 9.0 - 12.7 fL [facility] Platelets (Bld) [#/Vol] 163 10*3/uL 150 - 400 k/uL [facility] RBC (Bld) [#/Vol] 3.11 10*6/uL Low 3.90 - 5.2 0 m/uL [facility] WBC (Bld) [#/Vol] 5.42 10*3/uL 3.70 - 11.00 k/uL [facility] Comprehensive metabolic 2000 panelon 08-26-2023 Albumin [Mass/Vol] 3.8 g/dL Low 3.9 - 4.9 g/dL [facility] ALP [Catalytic activity/Vol] 351 U/L High 34 - 123 U/L [facility] ALT [Catalytic activity/Vol] 32 U/L 7 - 38 U/L [facility] Anion gap [Moles/Vol] 9 mmol/L 9 - 18 mmol/L [facility] AST [Catalytic activity/Vol] 38 U/L High 13 - 35 U/L [facility] Bilirubin [Mass/Vol] 0.3 mg/dL 0.2 - 1 .3 mg/dL [facility] Calcium [Mass/Vol] 9.3 mg/dL 8.5 - 10. 2 mg/dL [facility] Chloride [Moles/Vol] 101 mmol/L 97 - 10 5 mmol/L [facility] CO2 [Moles/Vol] 28 mmol/L 22 - 30 mmol/L [facility] Creatinine [Mass/Vol] 1.02 mg/dL High 0.58 - 0.96 mg/dL [facility] Estimated Glomerular Filtration Rate 59 mL/min/1.73m Low >=60 mL/min/1.73 m [facility] Glucose [Mass/Vol] 122 mg/dL High 74 - 99 mg/dL [facility] Potassium [Moles/Vol] 4.3 mmol/L 3.7 - 5.1 mmol/L [facility] Protein [Mass/Vol] 6.3 g/dL 6.3 - 8.0 g/dL [facility] Sodium [Moles/Vol] 138 mmol/L 136 - 144 mmol/L [facility] Urea nitrogen [Mass/Vol] 26 mg/dL High 7 - 21 mg/dL [facility] BRIEF OP NOTon 08-04-2023 BRIEF OP NOT HNO ID: [id number] Author: TAMEKA STEPHENSON MD Service: Interventional Radiology Author Type: Physician Type: Brief Op Note Filed: 08/04/2023 11:10 Note Text: BRIEF OPERATIVE / PROCEDURE NOTE LOG ID: [id number] SURGERY/PROCEDURE DATE: 08/04/2023 INCISION/PROCEDURE START TIME: 10:52 AM INCISION CLOSE/PROCEDURE END TIME: 11:06 AM SURGEON(S)/PROCEDURALIST(S ) AND [employer] MANAGER(S): Surgeon(s) and Role: * Tameka Stephenson MD - Primary No Additional Staff SURGERY/PROCEDURE(S): Mediport placement. ANESTHESIA: Procedural Sedation FINDINGS: Right chest mediport placed with right IJ venous access. ESTIMATED BLOOD LOSS: 3 mL SPECIMENS: None COMPLICATIONS: None CLOSURE TECHNIQUE: Primary PRE-OP/PRE-PROCEDURE DIAGNOSIS: Ovarian cancer. POST-OP/POST-PROCEDURE DIAGNOSIS: Same as Preop SIGNATURE: Tameka Stephenson MD PATIENT NAME: Amirah Reed DATE: August 04, 2023 TIME: 11:[address] [facility] HISTORY PHYSICALon HISTORY PHYSICAL HNO ID: [id number] Author: TAMEKA STEPHENSON MD Service: Interventional Radiology [...] 07/10/2024. SIGNATURE: Tameka Stephenson MD PATIENT NAME: Amirah Reed DATE: August 04, 2023 TIME: 10:[address] [facility] IR CENTRALLY INSERTED TUNN P Yessenia [...] name: Tameka Stephenson, (more content not included)... [facility] IR FLUOR GUID VASC ACCESSon 08-04-2023 [...] Stephenson MD I (more content not included)... [facility] IR US GUIDE VASC ACCESSon IR [...] record and reconciled to the proposed procedure/treatment. Lelsie-procedure discussion: The appropriate elements of the pre-procedure [...] Mayra Bolton (more content not included)... Normal [facility] PT panel Coag (PPP)on 2023 INR Coag (PPP) [Relative time] 1.0 {INR} Normal 0.9-1.3 [facility] Comment on above: Order Comment: Speci men Type: BLOOD SPECIMEN Ordering Facility: [facility] Address: [address] [place] [id number] Result Comment: Estrella min K Antagonist (VKA) Therapeutic Range: INR 2 to 3 (Target INR of 2.5) Note: For patients treated with VKA drugs, such as warfarin, the [employer] [employer] 2012 Guideline recommends [...] GH, et al. Chest 2012, 141:7S-47S Maame RA, et al. [facility] 2017, 70: 252-289 Performed By: #### 3 4528-0 #### [facility] CLIA [id number] [address] [place] [address] [place] PT Coag (PPP) [Time] 10.8 s Normal 9.7-13.0 [facility] Comment on above: Order Comment: Speci men Type: BLOOD SPECIMEN Ordering Facility: [facility] Address: [address] [place] [address] Performed By: #### 3 4528-0 #### [facility] CLIA [id number] [address] [place], [place] [id number] [place] NURSING PROGon 07-29-2023 NURSING PROG HNO ID: [id number] Author: SUSHANT MOURA RN Service: Radiology Author Type: Registered Nurse [...] directed. Bring copy of Living Will/Power of Account Assistant. Do not smoke or chew. If you [...] the Surgery Center. UPON ARRIVAL: Access to [facility] is located on [address] [employer] parking is available for your convenience from [...] are permitted in your preprocedure room. Normal [facility] Absolute lymphocyte countOrd ered By: Jorge Alberto Stephenson on 07-10-2023 Lymphocytes Auto (Unsp spec) [#/Vol] 0.61 10*3/uL 0.83-4.51 [facility] Basophil percentageOrdered B y: Jorge Alberto Stephenson on 07-10-2023 Basophil percentage 0 SE[facility] Bas[facility]/100 WBC (Bld) 0.2 % 0-1 [facility] Bilirubin [Mass/Vol] 0.90 mg/dL 0.20-1.[address] [facility] Comment on above: For patients on eltr ombopag therapy, use of Dimension Mc[facility] TBIL is not recommended. Chloride [Moles/Vol] 101 mmol/L 98-[address] [facility] Eosinophils/100 WBC (Bld) 0.1 % 0-5 [facility] Glucose [Mass/Vol] 121 mg/dL 74-106 [facility] Comment on above: Fasting Glucose resu lt from 100 to 125 mg/dL suggests IMPAIRED HOMEOSTASIS per A.D.A. criteria. Lactate [Moles/Vol] 1.7 mmol/L 0.4-2.0 [facility] Neutrophils (Bld) [#/Vol] 10.9 10*3/uL 2.0-7.7 [facility] Neutrophils/100 WBC (Bld) 89.8 % 47-70 [facility] Potassium [Moles/Vol] 4.6 mmol/L 3.5-5.1 [facility] Protein [Mass/Vol] 7.2 g/dL 6.4-8.2 [facility] Sodium [Moles/Vol] 136 mmol/L 136-145 [facility] WBC (Bld) [#/Vol] 12.2 10*3/uL 4.4-11.0 [facility] Bilirubin Test strip Ql (U)O rdered By: Jorge Alberto Stephenson on 07-10-2023 Bilirubin Ql (U) Negative Negative [facility] Blood erythrocytes count (nu mber/volume)Ordered By: Jorge Alberto Stephenson on 07-10-2023 RBC (Bld) [#/Vol] 4.09 10*6/uL 4.2-5.4 [facility] Blood hemoglobin measurement (mass/volume)Ordered By: Jorge Alberto Stephenson on 07-10-2023 Hemoglobin (Bld) [Mass/Vol] 12.0 g/dL 12.0-15.0 [facility] Blood lymphocytes/100 leukoc ytesOrdered By: Jorge Alberto Stephenson on 07-10-2023 Lymphocytes/100 WBC (Bld) 5.0 % 19-41 [facility] Blood monocytes/100 leukocyt esOrdered By: Jorge Alberto Stephenson on 07-10-2023 Monocytes/100 WBC (Bld) 4.4 % 0-10 [facility] Blood platelet mean volumeOr dered By: Jorge Alberto Stephenson on 07-10-2023 Platelet mean volume (Bld) [Entitic vol] 10.7 fL 6.2-12.0 [facility] Determination of erythrocyte mean corpuscular volume (MCV)Ordered By: Jorge Alberto Stephenson on 07-10-2023 MCV (RBC) [Entitic vol] 91.4 fL 81-99 [facility] Hematocrit Auto (Bld) [Volum e fraction]Ordered By: Jorge Alberto Stephenson on 07-10-2023 Hematocrit (Bld) [Volume fraction] 37.4 % 37-47 [facility] Influenza virus A and B and SARS-CoV-2 (COVID-19) Ag panel - Upper respiratory specimOrdered By: Jorge Alberto Stephenson on 07-10-2023 SARS-CoV-2 (COVID-19) RNA MAHAMED+probe Ql (Resp) [facility] Ketones Test strip Ql (U)Ord ered By: Jorge Alberto Stephenson on 07-10-2023 Ketones Ql (U) 15 mg/dl Negative [facility] Laboratory - Chemistry and C hemistry - challengeOrdered By: [facility] 07-10-2023 ALP [Catalytic activity/Vol] 119 U/L 45-117 [facility] ALT [Catalytic activity/Vol] 13 U/L 13-56 [facility] CO2 [Moles/Vol] 27.0 mmol/L 21.0-32.0 [facility] Globulin (S) [Mass/Vol] 3.9 g/dL 2.2-4.2 [facility] Lipase [Catalytic activity/Vol] 18 U/L 13-75 [facility] Comment on above: Please note:LIPASE r evised reference range effective 22. New Lipase methodology. Expected to produce lower values than the previous assay method. NEW Reference Range: 13 - 75 U/L Urea nitrogen/Creatinine [Mass ratio] 17.3 mg/mg 10-20 [facility] - Hematology and Cell countsOrdered By: Jorge Alberto Stephenson on 07-10-2023 Erythrocyte distribution width (RBC) [Entitic vol] 40.4 fL 35.1-43.9 [facility] Erythrocyte distribution width (RBC) [Ratio] 12.0 % 11.6-14.6 [facility] Immature granulocytes/100 WBC (Bld) 0.500 % 0.0-0.9 [facility] Comment on above: IG% - Immature Granu locytes (promyelocytes, myelocytes and metamyelocytes) > 1% indicates that a LEFT SHIFT is Present. MCH (RBC) [Entitic mass] 29.3 pg 27.0-32.0 [facility] Nucleated RBC/100 WBC (Bld) [Ratio] 0 % 0-5 [facility] MCHC Auto (RBC) [Mass/Vol]Or dered By: Rem Seema on 07-10-2023 MCHC (RBC) [Mass/Vol] 32.1 g/dL 32-36 [facility] Mucus LM Ql (Urine sed)Order ed By: Jorge Alberto Seema on 07-10-2023 Mucus Ql (Urine sed) 0 SEEN /hpf [facility] Nitrite Test strip Ql (U)Ord ered By: Jorge Alberto Seema on 07-10-2023 Nitrite Ql (U) Negative Negative [facility] No Panel InformationOrdered By: Rem Seema on 07-10-2023 Estimated GFR (MDRD) Amer 53 mL/min >60 [facility] Comment on above: GFR Calc Estimated GFR (MDRD) Non-Af Amer 44 mL/min >60 [facility] Comment on above: Non- GFR Calc Troponin I High Sensitivity 14 pg/mL 3.0-54.0 [facility] Comment on above: Please Note: New Estela t Units and Gender Specific Reference Ranges. For more information see Policy Stat Procedure [facility] High Sensitivity Troponin (TNIH) and attachments. Platelets bldOrdered By: Leny watkins Seema on 07-10-2023 Platelets (Bld) [#/Vol] 437 10*3/uL 150-450 [facility] Protein Test strip Ql (U)Ord ered By: Rem Ungderek on 07-10-2023 Protein Ql (U) 15 mg/dl Negative [facility] Serum or plasma albumin nick urement (mass/volume)Ordered By: Rem Ungderek on 07-10-2023 Albumin [Mass/Vol] 3.3 g/dL 3.2-5.0 [facility] Serum or plasma albumin/glob ulin mass ratioOrdered By: Remus Stephenson on 07-10-2023 Albumin/Globulin [Mass ratio] 0.8 {ratio} 0.9-2.4 [facility] Serum or plasma calcium nick urement (mass/volume)Ordered By: Remus Ungderek on 07-10-2023 Calcium [Mass/Vol] 9.7 mg/dL 8.5-10.1 [facility] Serum or plasma creatinine m easurement (mass/volume)Ordered By: Remus Stephenson on 07-10-2023 Creatinine [Mass/Vol] 1.27 mg/dL 0.55-1.02 [facility] Comment on above: The validity of the calculated GFR & GFRAA in patients over 70 years has not been determined. Clinical correlation is essential. Serum or plasma urea nitroge n measurement (mass/volume)Ordered By: Jorge Alberto Stephenson on 07-10-2023 Urea nitrogen [Mass/Vol] 22 mg/dL 7-18 [facility] Squamous epithelial cells de tection in urine sediment by light microscopyOrdered By: Jorge Alberto Stephenson on 07-10-2023 Epithelial cells.squamous LM Ql (Urine sed) 0 SEEN /hpf 5-10 [facility] Thin prep Papanicolaou smear with manual screeningOrdered By: Jorge Alberto Stephenson on 07-10-2023 Thin prep Papanicolaou smear with manual screening 16 U/L 15-37 [facility] Thin prep Papanicolaou smear with manual screening 8 5-15 [facility] Upper respiratory specimen i nfluenza A virus, influenza B virus, and severe acute resOrdered By: Remus Ungderek on 07-10-2023 Upper respiratory specimen influenza A virus, influenza B virus, and severe acute res [facility] Urine blood detectionOrdered By: Remus Ungderek on 07-10-2023 RBC Ql (U) Negative Negative [facility] RBC Ql (U) 0 SEEN /hpf 0-5 [facility] Urine clarityOrdered By: Rem us Seema on 07-10-2023 Clarity (U) Clear Clear [facility] Urine color determinationOrd ered By: Remus Stephenson on 07-10-2023 Color (U) Yellow Yellow [facility] Urine glucose detectionOrder ed By: Remus Stephenson on 07-10-2023 Glucose Ql (U) Normal mg/dl Normal [facility] Urine leukocyte esterase det ection by dipstickOrdered By: Jorge Alberto Stephenson on 07-10-2023 Leukocyte esterase Test strip Ql (U) Negative Negative [facility] Urine pHOrdered By: Jorge Alberto Brady gur on 07-10-2023 pH (U) 6.0 [pH] 5.0 - 8.0 [facility] Urine sediment bacteria coun t by microscopy (number/high power field)Ordered By: Jorge Alberto Stephenson on 07-10-2023 Bacteria LM.HPF (Urine sed) [#/Area] 0 /[HPF] None Seen [facility] Urine specific gravity measu rementOrdered By: Jorge Alberto Stephenson on 07-10-2023 Specific gravity (U) [Rel density] 1.010 1.002-1.030 [facility] Urobilinogen Auto test strip Ql (U)Ordered By: Jorge Alberto Stephenson on 07-10-2023 Urobilinogen Ql (U) Normal mg/dl Normal [facility] Absolute lymphocyte countOrd ered By: Jessica Al on 01-26-2023 Lymphocytes Auto (Unsp spec) [#/Vol] 1.32 10*3/uL 0.83-4.51 [facility] Basophil percentageOrdered B y: Jessica Al on 01-26-2023 Basophils/100 WBC (Bld) 0.6 % 0-1 [facility] Bilirubin [Mass/Vol] 0.70 mg/dL 0.20-1.[address] [facility] Comment on above: For patients on eltr ombopag therapy, use of Dimension Mcbrides TBIL is not recommended. Chloride [Moles/Vol] 106 mmol/L 98-[address] [facility] Eosinophils/100 WBC (Bld) 2.6 % 0-5 [facility] Glucose [Mass/Vol] 102 mg/dL 74-106 [facility] Comment on above: Fasting Glucose resu lt from 100 to 125 mg/dL suggests IMPAIRED HOMEOSTASIS per A.D.A. criteria. Neutrophils (Bld) [#/Vol] 3.1 10*3/uL 2.0-7.7 [facility] Neutrophils/100 WBC (Bld) 61.0 % 47-70 [facility] Potassium [Moles/Vol] 4.4 mmol/L 3.5-5.1 [facility] Protein [Mass/Vol] 7.0 g/dL 6.4-8.2 [facility] Sodium [Moles/Vol] 138 mmol/L 136-145 [facility] WBC (Bld) [#/Vol] 5.0 10*3/uL 4.4-11.0 [facility] Blood erythrocytes count (nu mber/volume)Ordered By: Jessica Al on 01-26-2023 RBC (Bld) [#/Vol] 3.65 10*6/uL 4.2-5.4 [facility] Blood hemoglobin measurement (mass/volume)Ordered By: Jessica Al on 01-26-2023 Hemoglobin (Bld) [Mass/Vol] 11.2 g/dL 12.0-15.0 [facility] Blood lymphocytes/100 leukoc ytesOrdered By: Jessica Al on 01-26-2023 Lymphocytes/100 WBC (Bld) 26.4 % 19-41 [facility] Blood monocytes/100 leukocyt esOrdered By: Jessica Al on 01-26-2023 Monocytes/100 WBC (Bld) 9.0 % 0-10 [facility] Blood platelet mean volumeOr dered By: Jessica Al on 01-26-2023 Platelet mean volume (Bld) [Entitic vol] 11.5 fL 6.2-12.0 [facility] Determination of erythrocyte mean corpuscular volume (MCV)Ordered By: Jessica Al on 01-26-2023 MCV (RBC) [Entitic vol] 97.0 fL 81-99 [facility] Erythrocyte sedimentation ra teOrdered By: Jessica Al on 01-26-2023 ESR (Bld) [Velocity] 22 mm/h 0-[address] [facility] Hematocrit Auto (Bld) [Volum e fraction]Ordered By: Jessica Al on 01-26-2023 Hematocrit (Bld) [Volume fraction] 35.4 % 37-47 [facility] - Chemistry and C hemistry - challengeOrdered By: Jessica Al on 01-26-2023 ALP [Catalytic activity/Vol] 84 U/L 45-117 [facility] ALT [Catalytic activity/Vol] 30 U/L 13-56 [facility] CO2 [Moles/Vol] 29.0 mmol/L 21.0-32.0 [facility] Globulin (S) [Mass/Vol] 3.4 g/dL 2.2-4.2 [facility] Urea nitrogen/Creatinine [Mass ratio] 27.4 mg/mg 10-20 [facility] - Hematology and Cell countsOrdered By: Jessica Al on 01-26-2023 Erythrocyte distribution width (RBC) [Entitic vol] 43.4 fL 35.1-43.9 [facility] Erythrocyte distribution width (RBC) [Ratio] 12.3 % 11.6-14.6 [facility] Immature granulocytes/100 WBC (Bld) 0.400 % 0.0-0.9 [facility] Comment on above: IG% - Immature Granu locytes (promyelocytes, myelocytes and metamyelocytes) > 1% indicates that a LEFT SHIFT is Present. MCH (RBC) [Entitic mass] 30.7 pg 27.0-32.0 [facility] Nucleated RBC/100 WBC (Bld) [Ratio] 0 % 0-5 [facility] MCHC Auto (RBC) [Mass/Vol]Or dered By: Jessica Al on 01-26-2023 MCHC (RBC) [Mass/Vol] 31.6 g/dL 32-36 [facility] No Panel InformationOrdered By: Jessica Al on 01-26-2023 Estimated GFR (MDRD) Amer 61 mL/min >60 [facility] Comment on above: GFR Calc Estimated GFR (MDRD) Non-Af Amer 50 mL/min >60 [facility] Comment on above: Non- GFR Calc Platelets bldOrdered By: Minesh Al on 01-26-2023 Platelets (Bld) [#/Vol] 186 10*3/uL 150-450 [facility] Serum or plasma C reactive p rotein measurement (mass/volume)Ordered By: Jessica Al on 01-26-2023 CRP [Mass/Vol] 3.77 mg/L 0.0-3.0 [facility] Comment on above: C-Reactive Protein ( CRP) provides useful information for thediagnosis, therapy and monitoring of inflammatory processesand associated diseases. For the evaluation of Relative Riskfor Cardiovascular Disease, a High Sensitivity CRP (HSCRP)should be ordered. Serum or plasma albumin nick urement (mass/volume)Ordered By: Jessica Al on 01-26-2023 Albumin [Mass/Vol] 3.6 g/dL 3.2-5.0 [facility] Serum or plasma albumin/glob ulin mass ratioOrdered By: [facility] [place] Mikaela on 01-26-2023 Albumin/Globulin [Mass ratio] 1.1 {ratio} 0.9-2.4 [facility] Serum or plasma calcium nick urement (mass/volume)Ordered By: Jessica Al on 01-26-2023 Calcium [Mass/Vol] 9.5 mg/dL 8.5-10.1 [facility] Serum or plasma creatinine m easurement (mass/volume)Ordered By: Jessica Al on 01-26-2023 Creatinine [Mass/Vol] 1.13 mg/dL 0.55-1.02 [facility] Comment on above: The validity of the calculated GFR & GFRAA in patients over 70 years has not been determined. Clinical correlation is essential. Serum or plasma urea nitroge n measurement (mass/volume)Ordered By: Jessica Al on 01-26-2023 Urea nitrogen [Mass/Vol] 31 mg/dL 7-18 [facility] Thin prep Papanicolaou smear with manual screeningOrdered By: Jessica Al on 01-26-2023 Thin prep Papanicolaou smear with manual screening 34 U/L 15-37 [facility] Thin prep Papanicolaou smear with manual screening 3 5-15 [facility] Basophil percentageOrdered B y: Dr. Casanova on 12-06-2022 Cholesterol [Mass/Vol] 266 mg/dL <[address] [facility] Comment on above: <200 mg/dL Desirable 200-240 mg/dL Borderline >240 mg/dL High Risk Triglyceride [Mass/Vol] 69 mg/dL <199 [facility] Comment on above: The drugs N-Acetylcy steine and Metamizole may falsely depress this assay.Serum Triglycerides Reference Interval Normal <150 mg/dL Borderline high 150 - 199 mg/dL High 200 - 499 mg/dL Very High > or = 500 mg/dL No Panel InformationOrdered By: Dr. Casanova on 12-06-2022 Vitamin D 25-Hydroxy 103.4 ng/mL [facility] Comment on above: Vitamin D 25(OH) Sta [...] elevated values when tested with the [employer]ia Centaur Vitamin D assay. With fluorescein interference, observed Vitamin D values can be as high as >150 ng/mL (>375 nmol/L). Samples should be resubmitted post fluorescein clearance to ensure there is no interference with Vitamin D test results. Serum or plasma cholesterol in HDL measurement (mass/volume)Ordered By: Dr. Casanova on 12-06-2022 Cholesterol in HDL [Mass/Vol] 94 mg/dL >40 [facility] Comment on above: The drugs N-Acetylcy steine and Metamizole may falsely depress this assay. Reference Range HDL <40 mg/dL Low HDL Cholesterol HDL >or= 60 mg/dL High HDL Cholesterol Serum or plasma cholesterol in VLDL measurement (mass/volume)Ordered By: Dr. Casanova on 12-06-2022 Cholesterol in VLDL [Mass/Vol] 14 mg/dL 5-40 [facility] Serum or plasma low density lipoprotein (LDL) cholesterol measurement (mass/volume)Ordered By: Dr. Casanova on 12-06-2022 Cholesterol in LDL [Mass/Vol] 158 mg/dL 0-130 [facility] Absolute lymphocyte countOrd ered By: Dr. Mcfarland on 12-02-2022 Lymphocytes Auto (Unsp spec) [#/Vol] 1.35 10*3/uL 0.83-4.51 [facility] Basophil percentageOrdered B y: Dr. Mcfarland on 12-02-2022 Basophil percentage 0 SEEN /hpf 0-[address] [facility] Basophils/100 WBC (Bld) 0.4 % 0-1 [facility] Bilirubin [Mass/Vol] 1.40 mg/dL 0.20-1.[address] [facility] Comment on above: For patients on eltr ombopag therapy, use of Dimension Mcbrides TBIL is not recommended. Chloride [Moles/Vol] 105 mmol/L 98-[address] [facility] Eosinophils/100 WBC (Bld) 1.7 % 0-5 [facility] Glucose [Mass/Vol] 118 mg/dL 74-106 [facility] Comment on above: Fasting Glucose resu lt from 100 to 125 mg/dL suggests IMPAIRED HOMEOSTASIS per A.D.A. criteria. Neutrophils (Bld) [#/Vol] 5.0 10*3/uL 2.0-7.7 [facility] Neutrophils/100 WBC (Bld) 68.9 % 47-70 [facility] Potassium [Moles/Vol] 4.3 mmol/L 3.5-5.1 [facility] Protein [Mass/Vol] 7.1 g/dL 6.4-8.2 [facility] Sodium [Moles/Vol] 139 mmol/L 136-145 [facility] WBC (Bld) [#/Vol] 7.2 10*3/uL 4.4-11.0 [facility] Bilirubin Test strip Ql (U)O rdered By: Dr. Mcfarland on 12-02-2022 Bilirubin Ql (U) Negative Negative [facility] Blood erythrocytes count (nu mber/volume)Ordered By: Dr. Mcfarland on 12-02-2022 RBC (Bld) [#/Vol] 3.75 10*6/uL 4.2-5.4 [facility] Blood hemoglobin measurement (mass/volume)Ordered By: Dr. Mcfarland on 12-02-2022 Hemoglobin (Bld) [Mass/Vol] 11.5 g/dL 12.0-15.0 [facility] Blood lymphocytes/100 leukoc ytesOrdered By: Dr. Mcfarland on 12-02-2022 Lymphocytes/100 WBC (Bld) 18.7 % 19-41 [facility] Blood monocytes/100 leukocyt esOrdered By: Dr. Mcfarland on 12-02-2022 Monocytes/100 WBC (Bld) 9.7 % 0-10 [facility] Blood platelet mean volumeOr dered By: Dr. Mcfarland on 12-02-2022 Platelet mean volume (Bld) [Entitic vol] 11.1 fL 6.2-12.0 [facility] Determination of erythrocyte mean corpuscular volume (MCV)Ordered By: Dr. Mcfarland on 12-02-2022 MCV (RBC) [Entitic vol] 96.0 fL 81-99 [facility] Direct bilirubinOrdered By: Dr. Mcfarland on 12-02-2022 Bilirubin.direct [Mass/Vol] 0.31 mg/dL 0.00-0.30 [facility] Hematocrit Auto (Bld) [Volum e fraction]Ordered By: Dr. Mcfarland on 12-02-2022 Hematocrit (Bld) [Volume fraction] 36.0 % 37-47 [facility] Ketones Test strip Ql (U)Ord ered By: Dr. Mcfarland on 12-02-2022 Ketones Ql (U) Negative Negative [facility] Laboratory - Chemistry and C hemistry - challengeOrdered By: Dr. Mcfarland on 12-02-2022 ALP [Catalytic activity/Vol] 82 U/L 45-117 [facility] ALT [Catalytic activity/Vol] 51 U/L 13-56 [facility] CO2 [Moles/Vol] 28.0 mmol/L 21.0-32.0 [facility] Globulin (S) [Mass/Vol] 3.2 g/dL 2.2-4.2 [facility] Lipase [Catalytic activity/Vol] 43 U/L 13-75 [facility] Comment on above: Please note:LIPASE r evised reference range effective 22. New Lipase methodology. Expected to produce lower values than the previous assay method. NEW Reference Range: 13 - 75 U/L Urea nitrogen/Creatinine [Mass ratio] 21.6 mg/mg 10-20 [facility] Laboratory - Hematology and Cell countsOrdered By: Dr. Mcfarland on 12-02-2022 Erythrocyte distribution width (RBC) [Entitic vol] 44.1 fL 35.1-43.9 [facility] Erythrocyte distribution width (RBC) [Ratio] 12.4 % 11.6-14.6 [facility] Immature granulocytes/100 WBC (Bld) 0.600 % 0.0-0.9 [facility] Comment on above: IG% - Immature Granu locytes (promyelocytes, myelocytes and metamyelocytes) > 1% indicates that a LEFT SHIFT is Present. MCH (RBC) [Entitic mass] 30.7 pg 27.0-32.0 [facility] Nucleated RBC/100 WBC (Bld) [Ratio] 0 % 0-5 [facility] MCHC Auto (RBC) [Mass/Vol]Or dered By: Dr. Mcfarland on 12-02-2022 MCHC (RBC) [Mass/Vol] 31.9 g/dL 32-36 [facility] Mucus LM Ql (Urine sed)Order ed By: Dr. Mcfarland on 12-02-2022 Mucus Ql (Urine sed) 0 SEEN /hpf [facility] Nitrite Test strip Ql (U)Ord ered By: Dr. Mcfarland on 12-02-2022 Nitrite Ql (U) Negative Negative [facility] No Panel InformationOrdered By: Dr. Mcfarland on 12-02-2022 Estimated Creatinine Clearance Calc 35.18 ml/min [facility] Estimated GFR (MDRD) Amer 59 mL/min >60 [facility] Comment on above: GFR Calc Estimated GFR (MDRD) Non-Af Amer 49 mL/min >60 [facility] Comment on above: Non- GFR Calc Platelets bldOrdered By: Dr. Mcfarland on 12-02-2022 Platelets (Bld) [#/Vol] 186 10*3/uL 150-450 [facility] Protein Test strip Ql (U)Ord ered By: Dr. Mcfarland on 12-02-2022 Protein Ql (U) Negative Negative [facility] Serum or plasma albumin nick urement (mass/volume)Ordered By: Dr. Mcfarland on 12-02-2022 Albumin [Mass/Vol] 3.9 g/dL 3.2-5.0 [facility] Serum or plasma calcium nick urement (mass/volume)Ordered By: Dr. Mcfarland on 12-02-2022 Calcium [Mass/Vol] 9.5 mg/dL 8.5-10.1 [facility] Serum or plasma creatinine m easurement (mass/volume)Ordered By: Dr. Mcfarland on 12-02-2022 Creatinine [Mass/Vol] 1.16 mg/dL 0.55-1.02 [facility] Comment on above: The validity of the calculated GFR & GFRAA in patients over 70 years has not been determined. Clinical correlation is essential. Serum or plasma urea nitroge n measurement (mass/volume)Ordered By: Dr. Mcfarland on 12-02-2022 Urea nitrogen [Mass/Vol] 25 mg/dL 7-18 [facility] Squamous epithelial cells de tection in urine sediment by light microscopyOrdered By: Dr. Mcfarland on 12-02-2022 Epithelial cells.squamous LM Ql (Urine sed) 0 SEEN /hpf 5-10 [facility] Thin prep Papanicolaou smear with manual screeningOrdered By: Dr. Mcfarland on 12-02-2022 Thin prep Papanicolaou smear with manual screening 41 U/L 15-37 [facility] Thin prep Papanicolaou smear with manual screening 6 5-15 [facility] Urine blood detectionOrdered By: Dr. Mcfarland on 12-02-2022 RBC Ql (U) Negative Negative [facility] RBC Ql (U) 0 SEEN /hpf 0-5 [facility] Urine clarityOrdered By: Dr. Mcfarland on 12-02-2022 Clarity (U) Clear Clear [facility] Urine color determinationOrd ered By: Dr. Mcfarland on 12-02-2022 Color (U) Straw Yellow [facility] Urine glucose detectionOrder ed By: Dr. Mcfarland on 12-02-2022 Glucose Ql (U) Normal mg/dl Normal [facility] Urine leukocyte esterase det ection by dipstickOrdered By: Dr. Mcfarland on 12-02-2022 Leukocyte esterase Test strip Ql (U) Negative Negative [facility] Urine pHOrdered By: Dr. Jordan castellanos on 12-02-2022 pH (U) 7.0 [pH] 5.0 - 8.0 [facility] Urine sediment bacteria coun t by microscopy (number/high power field)Ordered By: Dr. Mcfarland on 12-02-2022 Bacteria LM.HPF (Urine sed) [#/Area] 0 /[HPF] None Seen [facility] Urine specific gravity measu rementOrdered By: Dr. Mcfarland on 12-02-2022 Specific gravity (U) [Rel density] 1.010 1.002-1.030 [facility] Urobilinogen Auto test strip Ql (U)Ordered By: Dr. Mcfarland on 12-02-2022 Urobilinogen Ql (U) Normal mg/dl Normal [facility] Absolute lymphocyte countOrd ered By: Dr. Al on 11-02-2022 Lymphocytes Auto (Unsp spec) [#/Vol] 1.25 10*3/uL 0.83-4.51 [facility] Basophil percentageOrdered B y: Dr. Al on 11-02-2022 Basophils/100 WBC (Bld) 1.4 % 0-1 [facility] Bilirubin [Mass/Vol] 0.50 mg/dL 0.20-1.[address] [facility] Comment on above: For patients on eltr ombopag therapy, use of Dimension Mcbrides TBIL is not recommended. Chloride [Moles/Vol] 107 mmol/L 98-[address] [facility] Eosinophils/100 WBC (Bld) 4.5 % 0-5 [facility] Glucose [Mass/Vol] 100 mg/dL 74-106 [facility] Comment on above: Fasting Glucose resu lt from 100 to 125 mg/dL suggests IMPAIRED HOMEOSTASIS per A.D.A. criteria. Neutrophils (Bld) [#/Vol] 3.2 10*3/uL 2.0-7.7 [facility] Neutrophils/100 WBC (Bld) 61.0 % 47-70 [facility] Potassium [Moles/Vol] 4.1 mmol/L 3.5-5.1 [facility] Protein [Mass/Vol] 7.2 g/dL 6.4-8.2 [facility] Sodium [Moles/Vol] 139 mmol/L 136-145 [facility] WBC (Bld) [#/Vol] 5.2 10*3/uL 4.4-11.0 [facility] Blood erythrocytes count (nu mber/volume)Ordered By: Dr. Al on 11-02-2022 RBC (Bld) [#/Vol] 3.72 10*6/uL 4.2-5.4 [facility] Blood hemoglobin measurement (mass/volume)Ordered By: Dr. Al on 11-02-2022 Hemoglobin (Bld) [Mass/Vol] 11.7 g/dL 12.0-15.0 [facility] Blood lymphocytes/100 leukoc ytesOrdered By: Dr. Al on 11-02-2022 Lymphocytes/100 WBC (Bld) 24.2 % 19-41 [facility] Blood monocytes/100 leukocyt esOrdered By: Dr. Al on 11-02-2022 Monocytes/100 WBC (Bld) 8.7 % 0-10 [facility] Blood platelet mean volumeOr dered By: Dr. Al on 11-02-2022 Platelet mean volume (Bld) [Entitic vol] 11.7 fL 6.2-12.0 [facility] Determination of erythrocyte mean corpuscular volume (MCV)Ordered By: Dr. Al on 11-02-2022 MCV (RBC) [Entitic vol] 97.6 fL 81-99 [facility] Hematocrit Auto (Bld) [Volum e fraction]Ordered By: Dr. Al on 11-02-2022 Hematocrit (Bld) [Volume fraction] 36.3 % 37-47 [facility] Laboratory - Chemistry and C hemistry - challengeOrdered By: Dr. Al on 11-02-2022 ALP [Catalytic activity/Vol] 60 U/L 45-117 [facility] ALT [Catalytic activity/Vol] 55 U/L 13-56 [facility] CO2 [Moles/Vol] 26.0 mmol/L 21.0-32.0 [facility] Globulin (S) [Mass/Vol] 3.3 g/dL 2.2-4.2 [facility] Urea nitrogen/Creatinine [Mass ratio] 25.4 mg/mg 10-20 [facility] Laboratory - Hematology and Cell countsOrdered By: Dr. Al on 11-02-2022 Erythrocyte distribution width (RBC) [Entitic vol] 45.0 fL 35.1-43.9 [facility] Erythrocyte distribution width (RBC) [Ratio] 12.6 % 11.6-14.6 [facility] Immature granulocytes/100 WBC (Bld) 0.200 % 0.0-0.9 [facility] Comment on above: IG% - Immature Granu locytes (promyelocytes, myelocytes and metamyelocytes) > 1% indicates that a LEFT SHIFT is Present. MCH (RBC) [Entitic mass] 31.5 pg 27.0-32.0 [facility] Nucleated RBC/100 WBC (Bld) [Ratio] 0 % 0-5 [facility] MCHC Auto (RBC) [Mass/Vol]Or dered By: Dr. Al on 11-02-2022 MCHC (RBC) [Mass/Vol] 32.2 g/dL 32-36 [facility] No Panel InformationOrdered By: Dr. Al on 11-02-2022 Estimated GFR (MDRD) Amer 60 mL/min >60 [facility] Comment on above: GFR Calc Estimated GFR (MDRD) Non-Af Amer 50 mL/min >60 [facility] Comment on above: Non- GFR Calc Platelets bldOrdered By: Dr. Al on 11-02-2022 Platelets (Bld) [#/Vol] 183 10*3/uL 150-450 [facility] Serum or plasma albumin nick urement (mass/volume)Ordered By: Dr. Al on 11-02-2022 Albumin [Mass/Vol] 3.9 g/dL 3.2-5.0 [facility] Serum or plasma albumin/glob ulin mass ratioOrdered By: Dr. Al on 11-02-2022 Albumin/Globulin [Mass ratio] 1.2 {ratio} 0.9-2.4 [facility] Serum or plasma calcium nick urement (mass/volume)Ordered By: Dr. Al on 11-02-2022 Calcium [Mass/Vol] 9.6 mg/dL 8.5-10.1 [facility] Serum or plasma creatinine m easurement (mass/volume)Ordered By: Dr. Al on 11-02-2022 Creatinine [Mass/Vol] 1.14 mg/dL 0.55-1.02 [facility] Comment on above: The validity of the calculated GFR & GFRAA in patients over 70 years has not been determined. Clinical correlation is essential. Serum or plasma urea nitroge n measurement (mass/volume)Ordered By: Dr. Al on 11-02-2022 Urea nitrogen [Mass/Vol] 29 mg/dL 7-18 [facility] Thin prep Papanicolaou smear with manual screeningOrdered By: Dr. Al on 11-02-2022 Thin prep Papanicolaou smear with manual screening 45 U/L 15-37 [facility] Thin prep Papanicolaou smear with manual screening 6 5-15 [facility] Basophil percentageOrdered B y: Dr. Casanova on 10-15-2022 Creatinine [Mass/Vol] 1.4 mg/dL 0.55-1.02 [facility] Laboratory - Chemistry and C hemistry - challengeOrdered By: Dr. Casanova on 10-15-2022 GFR/1.73 sq M.predicted among non-blacks MDRD (S/P/Bld) [Vol rate/Area] 38.0000 mL/min/{1.73_m2} >60 [facility] Absolute lymphocyte counton 05-12-2022 Lymphocytes Auto (Unsp spec) [#/Vol] 1.53 10*3/uL 0.83-4.51 [facility] Work Phone: Basophil percentageon 2021 Basophils/100 WBC (Bld) 1.2 % 0-1 [facility] Work Phone: Bilirubin [Mass/Vol] 1.00 mg/dL 0.20-1.[address] [facility] Work Phone: Comment on above: For patients on eltr ombopag therapy, use of Dimension Mcbrides TBIL is not recommended. Chloride [Moles/Vol] 104 mmol/L 98-[address] [facility] Work Phone: Eosinophils/100 WBC (Bld) 3.3 % 0-5 [facility] Work Phone: Glucose [Mass/Vol] 91 mg/dL 74-106 [facility] Work Phone: Neutrophils (Bld) [#/Vol] 2.1 10*3/uL 2.0-7.7 [facility] Work Phone: [phone] Neutrophils/100 WBC (Bld) 49.5 % 47-70 [facility] Work Phone: Potassium [Moles/Vol] 4.2 mmol/L 3.5-5.1 [facility] Work Phone: Protein [Mass/Vol] 7.1 g/dL 6.4-8.2 [facility] Work Phone: Sodium [Moles/Vol] 139 mmol/L 136-145 [facility] Work Phone: WBC (Bld) [#/Vol] 4.3 10*3/uL 4.4-11.0 [facility] Work Phone: Blood erythrocytes count (nu mber/volume)on 05-12-2022 RBC (Bld) [#/Vol] 3.86 10*6/uL 4.2-[facility]: Blood hemoglobin measurement (mass/volume)on 05-12-2022 Hemoglobin (Bld) [Mass/Vol] 12.4 g/dL 12.0-15.0 [facility] Work Phone: [phone] Blood lymphocytes/100 leukoc yteson 05-12-2022 Lymphocytes/100 WBC (Bld) 35.6 % 19-41 [facility] Work Phone: Blood monocytes/100 leukocyt eson 05-12-2022 Monocytes/100 WBC (Bld) 10.2 % 0-10 [facility] Work Phone: Blood platelet mean volumeon 05-12-2022 Platelet mean volume (Bld) [Entitic vol] 11.2 fL 6.2-12.0 [facility] Work Phone: Determination of erythrocyte mean corpuscular volume (MCV)on 05-12-2022 MCV (RBC) [Entitic vol] 95.1 fL 81-99 [facility] Work Phone: Hematocrit Auto (Bld) [Volum e fraction]on 05-12-2022 Hematocrit (Bld) [Volume fraction] 36.7 % 37-47 [facility] Work Phone: [phone] Laboratory - Chemistry and C hemistry - challengeon 05-12-2022 ALP [Catalytic activity/Vol] 61 U/L 45-117 [facility] Work Phone: ALT [Catalytic activity/Vol] 26 U/L 13-56 [facility] Work Phone: CO2 [Moles/Vol] 30.0 mmol/L 21.0-32.0 [facility] Work Phone: Globulin (S) [Mass/Vol] 3.3 g/dL 2.2-4.2 [facility] Work Phone: Urea nitrogen/Creatinine [Mass ratio] 22.5 mg/mg 10-20 [facility] Work Phone: Laboratory - Hematology and Cell countson 05-12-2022 Erythrocyte distribution width (RBC) [Entitic vol] 42.8 fL 35.1-43.9 [facility] Work Phone: Erythrocyte distribution width (RBC) [Ratio] 12.3 % 11.6-14.6 [facility] Work Phone: Immature granulocytes/100 WBC (Bld) 0.200 % 0.0-0.9 [facility] Work Phone: Comment on above: IG% - Immature Granu locytes (promyelocytes, myelocytes and metamyelocytes) > 1% indicates that a LEFT SHIFT is Present. MCH (RBC) [Entitic mass] 32.1 pg 27.0-32.0 [facility] Work Phone: Nucleated RBC/100 WBC (Bld) [Ratio] 0 % 0-5 [facility] Work Phone: MCHC Auto (RBC) [Mass/Vol]on 05-12-2022 MCHC (RBC) [Mass/Vol] 33.8 g/dL 32-36 [facility] Work [facility]: No Panel Informationon 05-12 Estimated GFR (MDRD) Amer 52 mL/min >60 [facility] Work Phone: Comment on above: GFR Calc Estimated GFR (MDRD) Non-Af Amer 43 mL/min >60 [facility] Work Phone: Comment on above: Non- GFR Calc Platelets bldon 05-12-2022 Platelets (Bld) [#/Vol] 174 10*3/uL 150-450 [facility] Work Phone: Serum or plasma albumin nick urement (mass/volume)on 05-12-2022 Albumin [Mass/Vol] 3.8 g/dL 3.2-5.0 [facility] Work Phone: Serum or plasma albumin/glob ulin mass ratioon 05-12-2022 Albumin/Globulin [Mass ratio] 1.2 {ratio} 0.9-2.4 [facility] Work Phone: Serum or plasma calcium nick urement (mass/volume)on 05-12-2022 Calcium [Mass/Vol] 9.3 mg/dL 8.5-10.1 [facility] Work Phone: Serum or plasma creatinine m easurement (mass/volume)on 05-12-2022 Creatinine [Mass/Vol] 1.29 mg/dL 0.55-1.02 [facility] Work Phone: Comment on above: The validity of the calculated GFR & GFRAA in patients over 70 years has not been determined. Clinical correlation is essential. Serum or plasma urea nitroge n measurement (mass/volume)on 05-12-2022 Urea nitrogen [Mass/Vol] 29 mg/dL 7-18 [facility] Work Phone: Thin prep Papanicolaou smear with manual screeningon 05-12-2022 Thin prep Papanicolaou smear with manual screening 27 U/L 15-37 [facility] Work Phone: Thin prep Papanicolaou smear with manual screening 5 5-15 [facility] Work Phone: Absolute lymphocyte counton 11-09-2021 Lymphocytes Auto (Unsp spec) [#/Vol] 1.29 10*3/uL 0.83-4.51 [facility] Work Phone: Basophil percentageon 2021 Basophils/100 WBC (Bld) 0.7 % 0-1 [facility] Work Phone: Bilirubin [Mass/Vol] 0.80 mg/dL 0.20-1.[address] [facility] Work Phone: Comment on above: For patients on eltr ombopag therapy, use of Dimension Mcbrides TBIL is not recommended. Chloride [Moles/Vol] 109 mmol/L 98-[address] [facility] Work Phone: Eosinophils/100 WBC (Bld) 1.2 % 0-5 [facility] Work Phone: Glucose [Mass/Vol] 101 mg/dL 74-106 [facility] Work Phone: Comment on above: Fasting Glucose resu lt from 100 to 125 mg/dL suggests IMPAIRED HOMEOSTASIS per A.D.A. criteria. Neutrophils (Bld) [#/Vol] 3.8 10*3/uL 2.0-7.7 [facility] Work Phone: Neutrophils/100 WBC (Bld) 67.5 % 47-70 [facility] Work Phone: Potassium [Moles/Vol] 4.4 mmol/L 3.5-5.1 [facility] Work Phone: Protein [Mass/Vol] 7.1 g/dL 6.4-8.2 [facility] Work Phone: [phone] Sodium [Moles/Vol] 142 mmol/L 136-145 [facility] Work Phone: WBC (Bld) [#/Vol] 5.7 10*3/uL 4.4-11.0 [facility] Work Phone: Blood erythrocytes count (nu mber/volume)on 11-09-2021 RBC (Bld) [#/Vol] 3.79 10*6/uL 4.2-5.4 [facility] Work Phone: Blood hemoglobin measurement (mass/volume)on 11-09-2021 Hemoglobin (Bld) [Mass/Vol] 11.8 g/dL 12.0-15.0 [facility] Work Phone: Blood lymphocytes/100 leukoc yteson 11-09-2021 Lymphocytes/100 WBC (Bld) 22.8 % 19-41 [facility] Work Phone: Blood monocytes/100 leukocyt eson 11-09-2021 Monocytes/100 WBC (Bld) 7.4 % 0-10 [facility] Work Phone: Blood platelet mean volumeon 11-09-2021 Platelet mean volume (Bld) [Entitic vol] 12.4 fL 6.2-12.0 [facility] Work Phone: Determination of erythrocyte mean corpuscular volume (MCV)on 11-09-2021 MCV (RBC) [Entitic vol] 95.3 fL 81-99 [facility] Work Phone: Hematocrit Auto (Bld) [Volum e fraction]on 11-09-2021 Hematocrit (Bld) [Volume fraction] 36.1 % 37-47 [facility] Work Phone: Laboratory - Chemistry and C hemistry - challengeon 11-09-2021 ALP [Catalytic activity/Vol] 68 U/L 45-117 [facility] Work Phone: ALT [Catalytic activity/Vol] 49 U/L 13-56 [facility] Work Phone: CO2 [Moles/Vol] 28.0 mmol/L 21.0-32.0 [facility] Work Phone: Globulin (S) [Mass/Vol] 3.2 g/dL 2.2-4.2 [facility] Work Phone: Urea nitrogen/Creatinine [Mass ratio] 25.5 mg/mg 10-20 [facility] Work Phone: Laboratory - Hematology and Cell countson 11-09-2021 Erythrocyte distribution width (RBC) [Entitic vol] 43.9 fL 35.1-43.9 [facility] Work Phone: Erythrocyte distribution width (RBC) [Ratio] 12.6 % 11.6-14.6 [facility] Work Phone: Immature granulocytes/100 WBC (Bld) 0.400 % 0.0-0.9 [facility] Work Phone: Comment on above: IG% - Immature Granu locytes (promyelocytes, myelocytes and metamyelocytes) > 1% indicates that a LEFT SHIFT is Present. MCH (RBC) [Entitic mass] 31.1 pg 27.0-32.0 [facility] Work Phone: Nucleated RBC/100 WBC (Bld) [Ratio] 0 % 0-5 [facility] Work Phone: MCHC Auto (RBC) [Mass/Vol]on 11-09-2021 MCHC (RBC) [Mass/Vol] 32.7 g/dL 32-36 [facility] Work Phone: No Panel Informationon 11-09 Estimated GFR (MDRD) Amer 63 mL/min >60 [facility] Work Phone: Comment on above: GFR Calc Estimated GFR (MDRD) Non-Af Amer 52 mL/min >60 [facility] Work Phone: Comment on above: Non- GFR Calc Platelets bldon 11-09-2021 Platelets (Bld) [#/Vol] 164 10*3/uL 150-450 [facility] Work Phone: Serum or plasma albumin nick urement (mass/volume)on 11-09-2021 Albumin [Mass/Vol] 3.9 g/dL 3.2-5.0 [facility] Work Phone: Serum or plasma albumin/glob ulin mass ratioon 11-09-2021 Albumin/Globulin [Mass ratio] 1.2 {ratio} 0.9-2.4 [facility] Work Phone: Serum or plasma calcium nick urement (mass/volume)on 11-09-2021 Calcium [Mass/Vol] 9.3 mg/dL 8.5-10.1 [facility] Work Phone: Serum or plasma creatinine m easurement (mass/volume)on 11-09-2021 Creatinine [Mass/Vol] 1.10 mg/dL 0.55-1.02 [facility] Work Phone: Comment on above: The validity of the calculated GFR & GFRAA in patients over 70 years has not been determined. Clinical correlation is essential. Serum or plasma urea nitroge n measurement (mass/volume)on 11-09-2021 Urea nitrogen [Mass/Vol] 28 mg/dL 02-08 [facility] Work Phone: Thin prep Papanicolaou smear with manual screeningon 11-09-2021 Thin prep Papanicolaou smear with manual screening 40 U/L 15-37 [facility] Work Phone: Thin prep Papanicolaou smear with manual screening 5 5-15 [facility] Work Phone: No Panel Information [facility] Vital Signs Date Time Vital Sign Value Performing Clinician Elo stewart 03-15-2025 09:48-0400 Body mass index (BMI) [Ratio] 20.39 kg/m2 Jaren [employer] Work Phone: [facility] 03-15-2025 09:48-0400 Body temperature 97.81 [degF] Jaren [employer] Work Phone: [facility] 03-15-2025 09:48-0400 Body weight 50.58 kg Jaren [employer] Phone: [facility] 03-15-2025 09:48-0400 Diastolic blood pressure 92 mm[Hg] Jaren Bubbles Phone: [facility] 03-15-2025 09:48-0400 Heart rate 88 /min Jaren Bubbles Phone: [facility] 03-15-2025 09:48-0400 SaO2% (BldA) [Mass fraction] 98 % Jaren Mccoy DO Work Phone: [facility] 03-15-2025 09:48-0400 Systolic blood pressure 184 mm[Hg] Jaren Mccoy DO Work Phone: [facility] 03-05-2025 08:50-0400 Body temperature 98.71 [degF] [facility] Work Phone: [facility] 03-05-2025 08:50-0400 Diastolic blood pressure 76 mm[Hg] [facility] Work Phone: [facility] 03-05-2025 08:50-0400 Heart rate 81 /min [facility] Work Phone: [facility] 03-05-2025 08:50-0400 SaO2% (BldA) [Mass fraction] 100 % [facility] Work Phone: [facility] 03-05-2025 08:50-0400 Systolic blood pressure 169 mm[Hg] [facility] Work Phone: [facility] 02-22-2025 09:18-0400 Body temperature 99 [degF] [facility] Work Phone: [facility] 02-22-2025 09:18-0400 Diastolic blood pressure 81 mm[Hg] [facility] Work Phone: [facility] 02-22-2025 09:18-0400 Heart rate 80 /min [facility] Work Phone: [facility] 02-22-2025 09:18-0400 Respiratory rate 16 /min Treatment [facility] Work Phone: [facility] 02-22-2025 09:18-0400 SaO2% (BldA) [Mass fraction] 100 % [facility] Work Phone: [facility] 02-22-2025 09:18-0400 Systolic blood pressure 158 mm[Hg] [facility] Work Phone: [facility] 02-20-2025 09:25-0400 Body temperature 99.61 [degF] [facility] Work Phone: [facility] 02-20-2025 09:25-0400 Diastolic blood pressure 70 mm[Hg] Treatment [facility] Work Phone: [facility] 02-20-2025 09:25-0400 Heart rate 64 /min Treatment [facility] Work Phone: [facility] 02-20-2025 09:25-0400 Respiratory rate 14 /min Treatment [facility]str Work Phone: [facility] 02-20-2025 09:25-0400 SaO2% (BldA) [Mass fraction] 99 % [facility] Work Phone: [facility] 02-20-2025 09:25-0400 Systolic blood pressure 138 mm[Hg] Treatment [facility] Work Phone: [facility] 02-18-2025 13:33-0400 Body temperature 99.7 [degF] Treatment [facility] Work Phone: [facility] 02-18-2025 13:33-0400 Diastolic blood pressure 71 mm[Hg] Treatment [facility] Work Phone: [facility] 02-18-2025 13:33-0400 Heart rate 70 /min Treatment [facility]str Work Phone: [facility] 02-18-2025 13:33-0400 Respiratory rate 16 /min Treatment [facility]str Work Phone: [facility] 02-18-2025 13:33-0400 SaO2% (BldA) [Mass fraction] 99 % [facility] Work Phone: [facility] 02-18-2025 13:33-0400 Systolic blood pressure 151 mm[Hg] Treatment [facility]str Work Phone: [facility] 02-15-2025 13:22-0400 Body temperature 98.6 [degF] Treatment [facility]str Work Phone: [facility] 02-15-2025 13:22-0400 Diastolic blood pressure 63 mm[Hg] Treatment [facility]str Work Phone: [facility] 02-15-2025 13:22-0400 Heart rate 87 /min Treatment [facility]str Work Phone: [facility] 02-15-2025 13:22-0400 SaO2% (BldA) [Mass fraction] 98 % Treatment [facility] Work Phone: [facility] 02-15-2025 13:22-0400 Systolic blood pressure 142 mm[Hg] Treatment [facility]str Work Phone: [facility] 02-13-2025 08:00-0400 Body temperature 97.59 [degF] Treatment [facility]str Work Phone: [facility] 02-13-2025 08:00-0400 Diastolic blood pressure 77 mm[Hg] Treatment [facility]str Work Phone: [facility] 02-13-2025 08:00-0400 Heart rate 79 /min Treatment [facility]str Work Phone: [facility] 02-13-2025 08:00-0400 Systolic blood pressure 157 mm[Hg] Treatment [facility]str Work Phone: [facility] 02-08-2025 14:36-0400 Body mass index (BMI) [Ratio] 20.76 kg/m2 Jaren Masci DO Work Phone: [facility] 02-08-2025 14:36-0400 Body temperature 98.01 [degF] Jaren Masci DO Work Phone: [facility] 02-08-2025 14:36-0400 Body weight 51.48 kg Jaren Masci DO Work Phone: [facility] 02-08-2025 14:36-0400 Diastolic blood pressure 81 mm[Hg] Jaren Masci DO Work Phone: [facility] 02-08-2025 14:36-0400 Heart rate 77 /min Jaren Masci DO Work Phone: [facility] 02-08-2025 14:36-0400 SaO2% (BldA) [Mass fraction] 100 % Jaren Masci DO Work Phone: [facility] 02-08-2025 14:36-0400 Systolic blood pressure 177 mm[Hg] Jaren Mccoy DO Work Phone: [facility] 02-08-2025 14:27-0400 Body mass index (BMI) [Ratio] 20.76 kg/m2 [facility] Work Phone: [facility] 02-08-2025 14:27-0400 Body weight 51.48 kg [facility] Work Phone: [facility] 11-30-2024 13:23-0400 Body mass index (BMI) [Ratio] 20.85 kg/m2 Ambar Vilchis MD Work Phone: [facility] 11-30-2024 13:23-0400 Body temperature 98.1 [degF] Ambar Vilchis MD Work Phone: [facility] 11-30-2024 13:23-0400 Body weight 51.71 kg Ambar Vilchis MD Work Phone: [facility] 11-30-2024 13:23-0400 Diastolic blood pressure 76 mm[Hg] Ambar Vilchis MD Work Phone: [facility] 11-30-2024 13:23-0400 Heart rate 65 /min Ambar Vilchis MD Work Phone: [facility] 11-30-2024 13:23-0400 SaO2% (BldA) [Mass fraction] 100 % Ambar Vilchis MD Work Phone: [facility] 11-30-2024 13:23-0400 Systolic blood pressure 177 mm[Hg] Ambar Vilchis MD Work Phone: [facility] 11-02-2024 10:10-0400 Body mass index (BMI) [Ratio] 20.97 kg/m2 Brandy Ramirez APRN.[employer] Work Phone: [facility] 11-02-2024 10:10-0400 Body temperature 97.81 [degF] Brandy Ramirez PERL DEVELOPER.[employer] Work Phone: [facility] 11-02-2024 10:10-0400 Body weight 52 kg Brandy Ramirez PERL DEVELOPER[employer] Work Phone: [facility] 11-02-2024 10:10-0400 Diastolic blood pressure 75 mm[Hg] Brandy Ramirez PERL DEVELOPER[employer] Work Phone: [facility] 11-02-2024 10:10-0400 Heart rate 87 /min Brandy Ramirez PERL DEVELOPER[employer] Work Phone: [facility] 11-02-2024 10:10-0400 SaO2% (BldA) [Mass fraction] 96 % Brandy Ramirez PERL DEVELOPER[employer] Work Phone: [facility] 11-02-2024 10:10-0400 Systolic blood pressure 176 mm[Hg] Brandy Ramirez PERL DEVELOPER[employer] Work Phone: [facility] 11-02-2024 09:41-0400 Body mass index (BMI) [Ratio] 21.03 kg/m2 [facility] Work Phone: [facility] 11-02-2024 09:41-0400 Body weight 52.16 kg [facility] Work Phone: [facility] 08-27-2024 10:54-0500 Body height 157.[address] 08-27-2024 10:54-0500 Body mass index (BMI) [Ratio] 20.85 kg/m2 [address] 08-27-2024 10:54-0500 Body temperature 97.9 [degF] [address] 08-27-2024 10:54-0500 Body weight 51.71 kg [facility] 2 [facility] 08-27-2024 10:54-0500 Diastolic blood pressure 78 mm[Hg] [facility] 2 [facility] 08-27-2024 10:54-0500 Heart rate 79 /min [facility] 2 [facility] 08-27-2024 10:54-0500 Respiratory rate 16 /min [address] 08-27-2024 10:54-0500 SaO2% (BldA) [Mass fraction] 100 % Pst 2 [facility] 08-27-2024 10:54-0500 Systolic blood pressure 161 mm[Hg] Pst 2 [facility] 08-23-2024 11:48-0500 Body mass index (BMI) [Ratio] 20.67 kg/m2 Ambar Vilchis MD Work Phone: [facility] 08-23-2024 11:48-0500 Body temperature 97.7 [degF] Ambar Vilchis MD Work Phone: [facility] 08-23-2024 11:48-0500 Body weight 51.26 kg Ambar Vilchis MD Work Phone: [facility] 08-23-2024 11:48-0500 Diastolic blood pressure 77 mm[Hg] Ambar Vilchis MD Work Phone: [facility] 08-23-2024 11:48-0500 Heart rate 94 /min Ambar Vilchis MD Work Phone: [facility] 08-23-2024 11:48-0500 SaO2% (BldA) [Mass fraction] 100 % Ambar Vilchis MD Work Phone: [facility] 08-23-2024 11:48-0500 Systolic blood pressure 174 mm[Hg] Ambar Vilchis MD Work Phone: [facility] 08-10-2024 09:29-0500 Body height 157.5 cm Rohit Miles MD Work Phone: [facility] 08-10-2024 09:29-0500 Body mass index (BMI) [Ratio] 20.97 kg/m2 Rohit Miles MD Work Phone: [facility] 08-10-2024 09:29-0500 Body weight 52 kg Rohit Miles MD Work Phone: [facility] 08-10-2024 09:29-0500 Diastolic blood pressure 80 mm[Hg] Rohit Miles MD Work Phone: [facility] 08-10-2024 09:29-0500 Heart rate 101 /min Rohit Miles MD Work Phone: [facility] 08-10-2024 09:29-0500 Systolic blood pressure 157 mm[Hg] Rohit Miles MD Work Phone: [facility] 08-03-2024 10:04-0500 Body mass index (BMI) [Ratio] 21.13 kg/m2 Jaren Ciroi DO Work Phone: [facility] 08-03-2024 10:04-0500 Body temperature 97.59 [degF] Jaren Masci DO Work Phone: [facility] 08-03-2024 10:04-0500 Body weight 52.39 kg Jaren Masci DO Work Phone: [facility] 08-03-2024 10:04-0500 Diastolic blood pressure 74 mm[Hg] Jaren Masci DO Work Phone: [facility] 08-03-2024 10:04-0500 Heart rate 80 /min Jaren Masci DO Work Phone: [facility] 08-03-2024 10:04-0500 SaO2% (BldA) [Mass fraction] 100 % Jaren Masci DO Work Phone: [facility] 08-03-2024 10:04-0500 Systolic blood pressure 172 mm[Hg] Jaren Masci DO Work Phone: [facility] 08-03-2024 09:55-0500 Body mass index (BMI) [Ratio] 21.13 kg/m2 [facility] Work Phone: [facility] 08-03-2024 09:55-0500 Body weight 52.39 kg [facility] Work Phone: [facility] 05-17-2024 10:18-0400 Body mass index (BMI) [Ratio] 21.22 kg/m2 Mayte Gonzalez APRN.[employer] Work Phone: [facility] 05-17-2024 10:18-0400 Body temperature 98.01 [degF] Mayte Fergusonikinocente PERL DEVELOPER.[employer] Work Phone: [facility] 05-17-2024 10:18-0400 Body weight 52.62 kg Mayte Gonzalez PERL DEVELOPER[employer] Work Phone: [facility] 05-17-2024 10:18-0400 Diastolic blood pressure 76 mm[Hg] Mayte Gonzalez PERL DEVELOPER[employer] Work Phone: [facility] 05-17-2024 10:18-0400 Heart rate 62 /min Mayte Gonzalez PERL DEVELOPER[employer] Work Phone: [facility] 05-17-2024 10:18-0400 SaO2% (BldA) [Mass fraction] 98 % Mayte Gonzalez PERL DEVELOPER[employer] Work Phone: [facility] 05-17-2024 10:18-0400 Systolic blood pressure 189 mm[Hg] Mayte Gonzalez PERL DEVELOPER.[employer] Work Phone: [facility] 05-09-2024 11:44-0400 Body height 157.5 cm Rohit Miles MD Work Phone: [facility] 05-09-2024 11:44-0400 Body mass index (BMI) [Ratio] 21.22 kg/m2 Rohit Miles MD Work Phone: [facility] 05-09-2024 11:44-0400 Body weight 52.62 kg Rohit Miles MD Work Phone: [facility] 05-09-2024 11:44-0400 Diastolic blood pressure 97 mm[Hg] Rohit Miles MD Work Phone: [facility] 05-09-2024 11:44-0400 Heart rate 68 /min Rohit Miles MD Work Phone: [facility] 05-09-2024 11:44-0400 Systolic blood pressure 187 mm[Hg] Rohit Miles MD Work Phone: [facility] 05-03-2024 11:33-0400 Body mass index (BMI) [Ratio] 21.49 kg/m2 Jaren Masci DO Work Phone: [facility] 05-03-2024 11:33-0400 Body temperature 97.3 [degF] Jaren Masci DO Work Phone: [facility] 05-03-2024 11:33-0400 Body weight 53.3 kg Jaren Masci DO Work Phone: [facility] 05-03-2024 11:33-0400 Diastolic blood pressure 78 mm[Hg] Jaren Masci DO Work Phone: [facility] 05-03-2024 11:33-0400 Heart rate 68 /min Jaren Masci DO Work Phone: [facility] 05-03-2024 11:33-0400 SaO2% (BldA) [Mass fraction] 100 % Jaren Masci DO Work Phone: [facility] 05-03-2024 11:33-0400 Systolic blood pressure 199 mm[Hg] Jaren Masci DO Work Phone: [facility] 05-03-2024 11:18-0400 Body mass index (BMI) [Ratio] 21.49 kg/m2 [facility] Work Phone: [facility] 05-03-2024 11:18-0400 Body weight 53.3 kg [facility] Work Phone: [facility] 04-20-2024 14:30-0400 Body height 157.[address] 1 [facility] 04-20-2024 14:30-0400 Body mass index (BMI) [Ratio] 21.58 kg/m2 Pst 1 [facility] 04-20-2024 14:30-0400 Body temperature 97.5 [degF] Pst 1 [facility] 04-20-2024 14:30-0400 Body weight 53.52 kg Pst 1 [facility] 04-20-2024 14:30-0400 Diastolic blood pressure 70 mm[Hg] Pst 1 [facility] 04-20-2024 14:30-0400 Heart rate 64 /min Pst 1 [facility] 04-20-2024 14:30-0400 Respiratory rate 14 /min Pst 1 [facility] 04-20-2024 14:30-0400 SaO2% (BldA) [Mass fraction] 100 % Pst 1 [facility] 04-20-2024 14:30-0400 Systolic blood pressure 151 mm[Hg] Pst 1 [facility] 04-06-2024 09:43-0400 Body height 157.5 cm Rohit Miles MD Work Phone: [facility] 04-06-2024 09:43-0400 Body mass index (BMI) [Ratio] 21.22 kg/m2 Rohit Miles MD Work Phone: [facility] 04-06-2024 09:43-0400 Body weight 52.62 kg Rohit Miles MD Work Phone: [facility] 04-06-2024 09:43-0400 Diastolic blood pressure 76 mm[Hg] Rohit Miles MD Work Phone: [facility] 04-06-2024 09:43-0400 Heart rate 71 /min Rohit Miles MD Work Phone: [facility] 04-06-2024 09:43-0400 Systolic blood pressure 189 mm[Hg] Rohit Miles MD Work Phone: [facility] 03-19-2024 15:10-0400 Body mass index (BMI) [Ratio] 21.4 kg/m2 [facility] Work Phone: [facility] 03-19-2024 15:10-0400 Body temperature 97.39 [degF] Jaren Mccoy DO Work Phone: [facility] 03-19-2024 15:10-0400 Body weight 53.07 kg [facility] Work Phone: [facility] 03-19-2024 15:10-0400 Diastolic blood pressure 84 mm[Hg] Jaren Mccoy DO Work Phone: [facility] 03-19-2024 15:10-0400 Heart rate 65 /min Jaren Ciroi DO Work Phone: [facility] 03-19-2024 15:10-0400 SaO2% (BldA) [Mass fraction] 98 % Jaren Ciroi DO Work Phone: [facility] 03-19-2024 15:10-0400 Systolic blood pressure 172 mm[Hg] Jaren Ciroi DO Work Phone: [facility] 02-13-2024 10:24-0400 Body mass index (BMI) [Ratio] 21.4 kg/m2 Ambar Vilchis MD Work Phone: [facility] 02-13-2024 10:24-0400 Body temperature 98.29 [degF] Ambar Vilchis MD Work Phone: [facility] 02-13-2024 10:24-0400 Body weight 53.07 kg Ambar Vilchis MD Work Phone: [facility] 02-13-2024 10:24-0400 Diastolic blood pressure 106 mm[Hg] Ambar Vilchis MD Work Phone: [facility] 02-13-2024 10:24-0400 Heart rate 93 /min Ambar Vilchis MD Work Phone: [facility] 02-13-2024 10:24-0400 SaO2% (BldA) [Mass fraction] 99 % Ambar Vilchis MD Work Phone: [facility] 02-13-2024 10:24-0400 Systolic blood pressure 190 mm[Hg] Ambar Vilchis MD Work Phone: [facility] 02-06-2024 16:19-0400 Diastolic blood pressure 78 mm[Hg] Jaren Tanneri DO Work Phone: [facility] 02-06-2024 16:19-0400 Systolic blood pressure 210 mm[Hg] Jaren Tanneri DO Work Phone: [facility] 02-06-2024 15:10-0400 Body mass index (BMI) [Ratio] 21.77 kg/m2 Jaren Tanneri DO Work Phone: [facility] 02-06-2024 15:10-0400 Body temperature 97.2 [degF] Jaren Masci DO Work Phone: [facility] 02-06-2024 15:10-0400 Body weight 53.98 kg Jaren Ciroi DO Work Phone: [facility] 02-06-2024 15:10-0400 Heart rate 63 /min Jaren Ciroi DO Work Phone: [facility] 02-06-2024 15:10-0400 SaO2% (BldA) [Mass fraction] 100 % Jaren Tanneri DO Work Phone: [facility] 02-06-2024 14:59-0400 Body mass index (BMI) [Ratio] 21.77 kg/m2 [facility] Work Phone: [facility] 02-06-2024 14:59-0400 Body weight 53.98 kg [facility] Work Phone: [facility] 01-23-2024 07:48-0400 Body mass index (BMI) [Ratio] 21.95 kg/m2 Treatment Wstr Work Phone: [facility] 01-23-2024 07:48-0400 Body temperature 97.81 [degF] Treatment [facility]str Work Phone: [facility] 01-23-2024 07:48-0400 Body weight 54.43 kg Treatment Wstr Work Phone: [facility] 01-23-2024 07:48-0400 Diastolic blood pressure 67 mm[Hg] Treatment Wstr Work Phone: [facility] 01-23-2024 07:48-0400 Heart rate 58 /min Treatment [facility]str Work Phone: [facility] 01-23-2024 07:48-0400 SaO2% (BldA) [Mass fraction] 100 % Treatment Wstr Work Phone: [facility] 01-23-2024 07:48-0400 Systolic blood pressure 169 mm[Hg] Treatment Wstr Work Phone: [facility] 01-16-2024 15:11-0400 Body mass index (BMI) [Ratio] 21.49 kg/m2 Jaren Masci DO Work Phone: [facility] 01-16-2024 15:11-0400 Body temperature 97.59 [degF] Jaren Masci DO Work Phone: [facility] 01-16-2024 15:11-0400 Body weight 53.3 kg Jaren Masci DO Work Phone: [facility] 01-16-2024 15:11-0400 Diastolic blood pressure 84 mm[Hg] Jaren Masci DO Work Phone: [facility] 01-16-2024 15:11-0400 Heart rate 72 /min Jaren Masci DO Work Phone: [facility] 01-16-2024 15:11-0400 SaO2% (BldA) [Mass fraction] 98 % Jaren Masci DO Work Phone: [facility] 01-16-2024 15:11-0400 Systolic blood pressure 187 mm[Hg] Jaren Masci DO Work Phone: [facility] 01-16-2024 14:57-0400 Body mass index (BMI) [Ratio] 21.49 kg/m2 [facility] Work Phone: [facility] 01-16-2024 14:57-0400 Body weight 53.3 kg [facility] Work Phone: [facility] 12-28-2023 08:15-0400 Body temperature 97.7 [degF] Treatment Wstr Work Phone: [facility] 12-28-2023 08:15-0400 Diastolic blood pressure 84 mm[Hg] Treatment Wstr Work Phone: [facility] 12-28-2023 08:15-0400 Heart rate 81 /min Treatment Wstr Work Phone: [facility] 12-28-2023 08:15-0400 Respiratory rate 16 /min Treatment Wstr Work Phone: [facility] 12-28-2023 08:15-0400 SaO2% (BldA) [Mass fraction] 97 % Treatment Wstr Work Phone: [facility] 12-28-2023 08:15-0400 Systolic blood pressure 174 mm[Hg] Treatment Wstr Work Phone: [facility] 12-27-2023 15:55-0400 Body mass index (BMI) [Ratio] 21.49 kg/m2 Jaren Masci DO Work Phone: [facility] 12-27-2023 15:55-0400 Body temperature 98.01 [degF] Jaren Masci DO Work Phone: [facility] 12-27-2023 15:55-0400 Body weight 53.3 kg Jaren Masci DO Work Phone: [facility] 12-27-2023 15:55-0400 Diastolic blood pressure 71 mm[Hg] Jaren Masci DO Work Phone: [facility] 12-27-2023 15:55-0400 Heart rate 73 /min Jaren Masci DO Work Phone: [facility] 12-27-2023 15:55-0400 SaO2% (BldA) [Mass fraction] 100 % Jaren Masci DO Work Phone: [facility] 12-27-2023 15:55-0400 Systolic blood pressure 165 mm[Hg] Jaren Masci DO Work Phone: [facility] 12-27-2023 15:45-0400 Body mass index (BMI) [Ratio] 21.49 kg/m2 [facility] Work Phone: [facility] 12-27-2023 15:45-0400 Body weight 53.3 kg Lab[facility] Work Phone: [facility] 12-06-2023 09:55-0400 Body temperature 98.01 [degF] Treatment Wstr Work Phone: [facility] 12-06-2023 09:55-0400 Diastolic blood pressure 76 mm[Hg] Treatment Wstr Work Phone: [facility] Comment on above: pt states she has white coat syndrome and elevated BP is not unusual 12-06-2023 09:55-0400 Heart rate 72 /min Treatment Wstr Work Phone: [facility] 12-06-2023 09:55-0400 SaO2% (BldA) [Mass fraction] 98 % Treatment Wstr Work Phone: [facility] 12-06-2023 09:55-0400 Systolic blood pressure 176 mm[Hg] Treatment Wstr Work Phone: [facility] Comment on above: pt states she has white coat syndrome and elevated BP is not unusual 12-05-2023 13:40-0400 Body mass index (BMI) [Ratio] 20.94 kg/m2 [facility] Work Phone: [facility] 12-05-2023 13:40-0400 Body weight 51.94 kg Lab[facility] Work Phone: [facility] 11-18-2023 10:18-0400 Body mass index (BMI) [Ratio] 21.07 kg/m2 Brandy Ramirez PERL DEVELOPER[employer] Work Phone: [facility] [facility] 11-18-2023 10:18-0400 Body temperature 97.5 [degF] Brandy Ramirez PERL DEVELOPER.AIRPLANE PATROL PILOT Work Phone: [facility] 11-18-2023 10:18-0400 Body weight 52.25 kg Brandy Ramirez PERL DEVELOPER.AIRPLANE PATROL PILOT Work Phone: [facility] 11-18-2023 10:18-0400 Diastolic blood pressure 81 mm[Hg] Brandy Ramirez PERL DEVELOPER.AIRPLANE PATROL PILOT Work Phone: [facility] 11-18-2023 10:18-0400 Heart rate 71 /min Brandy Ramirez PERL DEVELOPER.AIRPLANE PATROL PILOT Work Phone: [facility] 11-18-2023 10:18-0400 Systolic blood pressure 188 mm[Hg] Brandy Ramirez PERL DEVELOPER.AIRPLANE PATROL PILOT Work Phone: [facility] 11-18-2023 09:00-0400 Body mass index (BMI) [Ratio] 21.03 kg/m2 Lab/Port Wstr Work Phone: [facility] 11-18-2023 09:00-0400 Body weight 52.16 kg Lab/Port Wstr Work Phone: [facility] 11-11-2023 10:43-0400 Body temperature 97.9 [degF] Mayte Gonzalez PERL DEVELOPER.AIRPLANE PATROL PILOT Work Phone: [facility] 11-11-2023 10:43-0400 Body weight 52.62 kg Mayte Gonzalez PERL DEVELOPER.AIRPLANE PATROL PILOT Work Phone: [facility] 11-11-2023 10:43-0400 Diastolic blood pressure 79 mm[Hg] Mayte Gonzalez PERL DEVELOPER.AIRPLANE PATROL PILOT Work Phone: [facility] 11-11-2023 10:43-0400 Heart rate 86 /min Mayte Gonzalez PERL DEVELOPER.AIRPLANE PATROL PILOT Work Phone: [facility] 11-11-2023 10:43-0400 SaO2% (BldA) [Mass fraction] 96 % Mayte Gonzalez PERL DEVELOPER.AIRPLANE PATROL PILOT Work Phone: [facility] 11-11-2023 10:43-0400 Systolic blood pressure 194 mm[Hg] Mayte Gonzalez PERL DEVELOPER.AIRPLANE PATROL PILOT Work Phone: [facility] 10-13-2023 15:48-0400 Body temperature 98.2 [degF] Ambar Vilchis MD Work Phone: [facility] 10-13-2023 15:48-0400 Body weight 52.62 kg Ambar Vilchis MD Work Phone: [facility] 10-13-2023 15:48-0400 Diastolic blood pressure 94 mm[Hg] Ambar Vilchis MD Work Phone: [facility] 10-13-2023 15:48-0400 Heart rate 108 /min Ambar Vilchis MD Work Phone: [facility] 10-13-2023 15:48-0400 SaO2% (BldA) [Mass fraction] 99 % Ambar Vilchis MD Work Phone: [facility] 10-13-2023 15:48-0400 Systolic blood pressure 184 mm[Hg] Ambar Vilchis MD Work Phone: [facility] 10-07-2023 10:14-0400 Body temperature 97.9 [degF] Jaren Masci DO Work Phone: [facility] 10-07-2023 10:14-0400 Body weight 53.8 kg Jaren Masci DO Work Phone: [facility] 10-07-2023 10:14-0400 Diastolic blood pressure 79 mm[Hg] Jaren Masci DO Work Phone: [facility] 10-07-2023 10:14-0400 Heart rate 80 /min Jaren Masci DO Work Phone: [facility] 10-07-2023 10:14-0400 SaO2% (BldA) [Mass fraction] 99 % Jaren Masci DO Work Phone: [facility] 10-07-2023 10:14-0400 Systolic blood pressure 177 mm[Hg] Jaren Masci DO Work Phone: [facility] 10-07-2023 10:02-0400 Body weight 53.75 kg Lab/Port Wstr Work Phone: [facility] 09-20-2023 07:53-0500 Body temperature 97.39 [degF] Treatment Wstr Work Phone: [facility] 09-20-2023 07:53-0500 Diastolic blood pressure 75 mm[Hg] Treatment Wstr Work Phone: [facility] 09-20-2023 07:53-0500 Heart rate 83 /min Treatment Wstr Work Phone: [facility] 09-20-2023 07:53-0500 SaO2% (BldA) [Mass fraction] 100 % Treatment Wstr Work Phone: [facility] 09-20-2023 07:53-0500 Systolic blood pressure 159 mm[Hg] Treatment Wstr Work Phone: [facility] 09-16-2023 10:11-0500 Body temperature 97.2 [degF] Jaren Masci DO Work Phone: [facility] 09-16-2023 10:11-0500 Body weight 53.98 kg Jaren Masci DO Work Phone: [facility] 09-16-2023 10:11-0500 Diastolic blood pressure 69 mm[Hg] Jaren Masci DO Work Phone: [facility] 09-16-2023 10:11-0500 Heart rate 64 /min Jaren Masci DO Work Phone: [facility] 09-16-2023 10:11-0500 SaO2% (BldA) [Mass fraction] 100 % Jaren Masci DO Work Phone: [facility] 09-16-2023 10:11-0500 Systolic blood pressure 188 mm[Hg] Jaren Masci DO Work Phone: [facility] 09-16-2023 09:59-0500 Body weight 53.98 kg Lab/Port Wstr Work Phone: [facility] 08-30-2023 07:00-0500 Body temperature 97.7 [degF] Treatment Wstr Work Phone: [facility] 08-26-2023 11:22-0500 Body temperature 98.01 [degF] Brandy Ramirez PERL DEVELOPER.AIRPLANE PATROL PILOT Work Phone: [facility] 08-26-2023 11:22-0500 Body weight 54.43 kg Brandy Ramirez PERL DEVELOPER.AIRPLANE PATROL PILOT Work Phone: [facility] 08-26-2023 11:22-0500 Heart rate 107 /min Brandy Ramirez PERL DEVELOPER.AIRPLANE PATROL PILOT Work Phone: [facility] 08-26-2023 11:22-0500 SaO2% (BldA) [Mass fraction] 97 % Brandy Ramirez AIRPLANE PATROL PILOT Work Phone: [facility] 08-26-2023 11:06-0500 Body weight 54.43 kg Lab/Port Wstr Work Phone: [facility] 07-10-2023 20:40-0500 Body temperature 98.3 [degF] [facility] 07-10-2023 20:40-0500 Diastolic blood pressure 69 mm[Hg] [facility] 07-10-2023 20:40-0500 Heart rate 98 /min [facility] 07-10-2023 20:40-0500 Respiratory rate 18 /min [facility] 07-10-2023 20:40-0500 SaO2% (BldA) [Mass fraction] 97 % [facility] 07-10-2023 20:40-0500 Systolic blood pressure 150 mm[Hg] [facility] 07-10-2023 14:28-0500 Body mass index (BMI) [Ratio] 21.9 kg/m2 [facility] 07-10-2023 14:28-0500 Body weight 53.97 kg [facility] 07-10-2023 10:19-0500 Body height 157.48 cm [facility] 01-18-2023 11:34-0400 Body height 158.[address] Emily Casanova Work Phone: [facility] 01-18-2023 11:32-0400 Body mass index (BMI) [Ratio] 22.7 kg/m2 Dr. Emily Casanova Work Phone: [facility] 01-18-2023 11:32-0400 Body weight 57.[address] Emily Casanova Work Phone: [facility] 01-18-2023 11:32-0400 Diastolic blood pressure 79 mm[Hg] Dr. Emily Casanova Work Phone: [facility] 01-18-2023 11:32-0400 Systolic blood pressure 167 mm[Hg] Dr. Emily Casanova Work Phone: [facility] 12-02-2022 10:04-0400 Respiratory rate 18 /min Dr. Emily Casanova Work Phone: [facility] 12-02-2022 08:34-0400 Diastolic blood pressure 55 mm[Hg] Dr. Emily Casanova Work Phone: [facility] 12-02-2022 08:34-0400 Heart rate 72 /min Dr. Emily Casanova Work Phone: [facility] 12-02-2022 08:34-0400 SaO2% (BldA) [Mass fraction] 99 % Dr. Emily Casanova Work Phone: [facility] 12-02-2022 08:34-0400 Systolic blood pressure 154 mm[Hg] Dr. Emily Casanova Work Phone: [facility] 12-02-2022 05:02-0400 Body height 158.[address] Emily Casanova Work Phone: [facility] 12-02-2022 05:02-0400 Body mass index (BMI) [Ratio] 22.4 kg/m2 Dr. Emily Casanova Work Phone: [facility] 12-02-2022 05:02-0400 Body temperature 98.4 [degF] Dr. Emily Casanova Work Phone: [facility] 12-02-2022 05:02-0400 Body weight 56.[address] Emily Casanova Work Phone: [facility] 11-02-2022 11:09-0400 Body height 158.[address] Emily Casanova Work Phone: [facility] 11-02-2022 11:00-0400 Body mass index (BMI) [Ratio] 22.4 kg/m2 Dr. Emily Casanova Work Phone: [facility] 11-02-2022 11:00-0400 Body weight 56.[address] Emily Casanova Work Phone: [facility] 11-02-2022 11:00-0400 Diastolic blood pressure 84 mm[Hg] Dr. Emily Casanova Work Phone: [facility] 11-02-2022 11:00-0400 Systolic blood pressure 175 mm[Hg] Dr. Emily Casanova Work Phone: [facility] Encounters Encounter Date Encounter Type Care Provider Facility Start: 05-08-2025 End: 05-08-2025 ambulatory EMILY CASANOVA Facility:[facility] Start: 05-04-2025 End: 05-05-2025 Evaluation and management of inpatient EMILY CASANOVA Facility:[facility] Start: 05-04-2025 End: 05-04-2025 Emergency department patient visit BART SCHRADER DO Facility:[facility] Start: 05-01-2025 End: 05-01-2025 ambulatory EMILY Darryl JOCELYNE Facility:[facility] Start: 04-29-2025 End: 04-29-2025 ambulatory EMILY A JOCELYNE Facility:[facility] Start: 04-24-2025 End: 04-24-2025 ambulatory EMILY A JOCELYNE Facility:[facility] Start: 04-17-2025 ambulatory EMILY Darryl ELLISJOCELYNE Facilit y:[facility] Start: 04-12-2025 End: 04-12-2025 ambulatory Emily Casanova Facility:[facility] Start: 04-11-2025 End: 04-11-2025 ambulatory EMILY A JOCELYNE Facility:[facility] Start: 04-03-2025 End: 04-03-2025 Telephone encounter Jaren Mccoy DO Work Phone: Hematology/Oncology Comment on above: Results Start: 04-03-2025 End: 04-03-2025 ambulatory Lab/Port [facility] W[facility] Work Phone: Hematology/Oncology Comment on above: Ovarian cancer on le ft (HCC); 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); Anemia, unspecified type Start: 03-20-2025 End: 03-20-2025 [facility] Facility:[facility] Start: 03-20-2025 End: 03-21-2025 Telephone encounter Mindy MOORE Hematology/Oncology Comment on above: Social Work Services Nut 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 - O ther (Treatment Planning ) Start: 03-20-2025 End: 03-20-2025 multiple knife edge trimmer operator [facility] Wstr Work Phone: Hematology/Oncology Comment on above: Encounter for educat ion (Primary Dx) Start: 03-18-2025 End: 03-18-2025 ambulatory Lab/Port Jonathan [facility] Wstr Work Phone: Hematology/Oncology Comment on above: Ovarian cancer on le ft (HCC); 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); Anemia, unspecified type Start: 03-16-2025 End: 03-16-2025 Orders Only Ambar Vilchis MD Work Phone: [facility] Gynecology Oncology Comment on above: Ovarian cancer, bila teral (HCC) (Primary Dx) Start: 03-15-2025 End: 03-15-2025 ambulatory [facility] Facility:[facility] Start: 03-15-2025 End: 03-15-2025 Telephone encounter Joy Bolaños RN Hematology/Oncology Comment on above: Nut 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 - O ther (Change in treatment ) Start: 03-15-2025 End: 03-15-2025 Office outpatient visit 25 minutes Jaren Mccoy DO Work Phone: Hematology/Oncology Comment on above: Ovarian cancer on le ft (HCC) (Primary Dx); 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) Start: 03-15-2025 End: 03-15-2025 [facility] Facility:[facility] Start: 03-13-2025 End: 03-13-2025 Telephone encounter Jaren Mccoy DO Work Phone: Hematology/Oncology Comment on above: Results Start: 03-08-2025 End: 03-08-2025 ambulatory Lab/Port Jonathan [facility] Wstr Work Phone: Hematology/Oncology Comment on above: Ovarian cancer on le ft (HCC) (Primary Dx); Microcytic anemia Start: 03-07-2025 End: 03-11-2025 Telephone encounter Jaren Mccoy DO Work Phone: Hematology/Oncology Comment on above: Results Start: 03-07-2025 End: 03-07-2025 ambulatory Lab/Port [facility] Work Phone: Hematology/Oncology Comment on above: Ovarian cancer on le ft (HCC) (Primary Dx); Anemia, unspecified type Start: 03-05-2025 End: 03-05-2025 Subsequent hospital visit by physician [facility] Wstr Cat Scan Comment on above: Ovarian cancer, bila teral (HCC) [C56.3] Start: 03-05-2025 End: 03-06-2025 ambulatory Treatment 14 [facility] Work Phone: Hematology/Oncology Comment on above: Ovarian cancer on le ft (HCC) (Primary Dx) Ovarian cancer on le ft (HCC) (Primary Dx); Anemia, unspecified type Start: 02-27-2025 End: 02-27-2025 ambulatory [facility] Facility:[facility] Start: 02-23-2025 End: 02-25-2025 Telephone encounter Jaren Mccoy DO Work Phone: Hematology/Oncology Comment on above: Results Start: 02-22-2025 End: 02-22-2025 ambulatory Treatment 15 [facility] Work Phone: Hematology/Oncology Comment on above: Iron malabsorption ( HCC) (Primary Dx); Ovarian cancer, bilateral (HCC); Anemia, unspecified type; Anemia in stage 3a chronic kidney disease (HCC); Ovarian cancer on left (HCC) Start: 02-21-2025 End: 02-21-2025 Telephone encounter Jaren Mccoy DO Work Phone: Hematology/Oncology Comment on above: Opened In Error Start: 02-20-2025 End: 02-20-2025 ambulatory Treatment Rm 15 [facility] Work Phone: Hematology/Oncology Comment on above: Iron malabsorption ( HCC) (Primary Dx); Anemia in stage 3a chronic kidney disease (HCC); Ovarian cancer on left (HCC); Anemia, unspecified type Start: 02-18-2025 End: 02-18-2025 ambulatory Treatment Rm 14 [facility] [employer] [employer] Work Phone: Hematology/Oncology Comment on above: Iron malabsorption ( HCC) (Primary Dx); Anemia in stage 3a chronic kidney disease (HCC); Ovarian cancer on left (HCC) Start: 02-15-2025 End: 02-15-2025 Telephone encounter Jaren Mccoy DO Work Phone: Hematology/Oncology Comment on above: Results SPP Oral Oncology/he matology - Medication Refill (Lynparza 100mg) Start: 02-15-2025 End: 02-15-2025 ambulatory Florecita Nelson [facility] Comment on above: Iron malabsorption ( HCC) (Primary Dx); Anemia in stage 3a chronic kidney disease (HCC); Ovarian cancer on left (HCC) Start: 02-13-2025 End: 02-13-2025 ambulatory Treatment 16 [facility] [email or web address] Work Phone: Hematology/Oncology Comment on above: Anemia in stage 3a c hronic kidney disease (HCC) (Primary Dx); Iron malabsorption (HCC); Ovarian cancer on left (HCC) Start: 02-08-2025 End: 02-08-2025 Office outpatient visit 25 minutes Jaren Mccoy DO Work Phone: Hematology/Oncology Comment on above: Ovarian cancer on le ft (HCC) (Primary Dx); Anemia, unspecified type Start: 02-08-2025 End: 02-08-2025 ambulatory Lab/Port [facility] Work Phone: Hematology/Oncology Comment on above: Ovarian cancer on le ft (HCC) (Primary Dx); Ovarian cancer, bilateral (HCC); Anemia, unspecified type; Anemia due to antineoplastic chemotherapy Start: 01-18-2025 End: 01-18-2025 Specialty Pharmacy Florecita Nelson [facility] Comment on above: SPP Oral Oncology/he matology - Medication Refill (Lynparza 100mg) Start: 01-03-2025 End: 01-03-2025 ambulatory Lab/Port [facility] Work Phone: Hematology/Oncology Comment on above: Ovarian cancer on le ft (HCC) (Primary Dx); Ovarian cancer, bilateral (HCC); Anemia due to antineoplastic chemotherapy; Thrombocytopenia; Platelets decreased; Anemia, unspecified type Start: 12-18-2024 End: 12-18-2024 Specialty Pharmacy Florecita Alves [facility] Comment on above: SPP Oral Oncology/he matology - Medication Refill (Lynparza 100mg) Start: 11-30-2024 End: 11-30-2024 Patient encounter procedure Ambar Vilchis MD Work Phone: [facility] Gynecology Oncology Start: 11-30-2024 End: 11-30-2024 ambulatory Ambar Vilchis MD Work Phone: [facility] Gynecology Oncology Comment on above: Ovarian cancer, bila teral (HCC) (Primary Dx); BRIP1 gene mutation positive Start: 11-29-2024 End: 11-29-2024 ambulatory Lab/Port [facility] Work Phone: Hematology/Oncology Comment on above: Ovarian cancer on le ft (HCC); Ovarian cancer, bilateral (HCC); Anemia due to antineoplastic chemotherapy; Thrombocytopenia; Platelets decreased; Anemia, unspecified type Start: 11-02-2024 End: 11-02-2024 Refill Jaren Mccoy DO Work Phone: Hematology/Oncology Comment on above: Refill Request Start: 11-02-2024 End: 11-05-2024 Telephone encounter Brandy Ramirez APRN.CNP Work Phone: Hematology/Oncology Start: 11-02-2024 End: 11-02-2024 Patient encounter procedure Brandy Ramirez APRN.CNP Work Phone: Hematology/Oncology Start: 11-02-2024 End: 11-02-2024 ambulatory Brandy Ramirez APRN.CNP Work Phone: Hematology/Oncology Comment on above: Ovarian cancer on le ft (HCC) (Primary Dx); Anemia due to antineoplastic chemotherapy Ovarian cancer on le ft (HCC); Ovarian cancer, bilateral (HCC); Anemia due to antineoplastic chemotherapy; Thrombocytopenia; Platelets decreased; Anemia, unspecified type Start: 10-23-2024 End: 10-23-2024 Telephone encounter Estuardo Long RN [place] [facility] Comment on above: Nut 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 - H ospital Follow Up Start: 10-22-2024 End: 10-22-2024 Specialty Pharmacy Florecita Nelson [facility] Comment on above: SPP Oral Oncology/he matology - Medication Refill (Lynparza 100mg) Start: 10-17-2024 End: 10-17-2024 ambulatory [facility] Facility:[facility] Start: 10-17-2024 End: 10-17-2024 Patient encounter procedure Mark Kruse OD Work Phone: Optometry Comment on above: Combined forms of ag e-related cataract, bilateral (Primary Dx); Glaucoma suspect of left eye; Myopia, bilateral; Regular astigmatism of both eyes; Presbyopia; Vitreous floaters of both eyes Start: 09-28-2024 End: 09-28-2024 ambulatory Lab/Port [facility] Work Phone: Hematology/Oncology Comment on above: Ovarian cancer on le ft (HCC); Ovarian cancer, bilateral (HCC); Anemia due to antineoplastic chemotherapy; Thrombocytopenia (HCC); Platelets decreased (HCC); Anemia, unspecified type Start: 09-17-2024 End: 09-17-2024 Specialty Pharmacy Florecita Nelson [facility] Comment on above: SPP Oral Oncology/he matology - Medication Refill (Lynparza 100mg) Start: 09-04-2024 End: 09-06-2024 Evaluation and management of inpatient ROHIT MILES Facility:[facility] Start: 08-31-2024 End: 09-02-2024 ambulatory Lab/Port [facility] Work Phone: Hematology/Oncology Comment on above: Ovarian cancer on le ft (HCC) (Primary Dx); Ovarian cancer, bilateral (HCC); Anemia due to antineoplastic chemotherapy; Thrombocytopenia (HCC); Platelets decreased (HCC); Anemia, unspecified type Refill Request Start: 08-27-2024 End: 08-27-2024 Admission to [facility] 2 Pre Surgical Testing Start: 08-27-2024 End: 08-27-2024 Preprocedural examination done [facility] 2 [facility] Work Phone: Start: 08-27-2024 End: 08-27-2024 ambulatory Estuardo Long RN Pre Surgical Testing Comment on above: Preop examination (P rimary Dx); Chronic hypertension; Attention to colostomy (HCC); Anemia due to antineoplastic chemotherapy; Platelets decreased (HCC); 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, involving unspecified site (HCC); Gastroesophageal reflux disease, unspecified whether esophagitis present Patient Education Start: 08-23-2024 End: 08-23-2024 Patient encounter procedure Ambar Vilchis MD Work Phone: [facility] Gynecology Oncology Start: 08-23-2024 End: 08-23-2024 ambulatory Ambar Vilchis MD Work Phone: [facility] Gynecology Oncology Comment on above: Ovarian cancer, bila teral (HCC) (Primary Dx); BRIP1 gene mutation positive; Attention to colostomy (HCC) Start: 08-15-2024 ambulatory ROHIT Nair cility:[facility] Start: 08-15-2024 End: 08-15-2024 Subsequent hospital visit by physician Gi/Gu [facility] Comment on above: Attention to colosto my (HCC) [Z43.3] Start: 08-13-2024 End: 08-13-2024 Specialty Pharmacy Florecita Nelson [facility] Comment on above: SPP Oral Oncology/he matology - Medication Refill (Lynparza) Start: 08-10-2024 End: 08-10-2024 Telephone encounter Rohit Miles MD Work Phone: [facility] Comment on above: Procedure (COLOSTOMY REVERSAL/) Schedule Surgery Start: 08-10-2024 End: 08-10-2024 Patient encounter procedure Rohit Miles MD Work Phone: [facility] Comment on above: Attention to colosto my (HCC) (Primary Dx) Start: 08-10-2024 End: 08-10-2024 ambulatory EMILY CASANOVA Facility:[facility] Start: 08-03-2024 End: 08-03-2024 Office outpatient visit 25 minutes Jaren Mccoy DO Work Phone: Hematology/Oncology Comment on above: Ovarian cancer on le ft (HCC) (Primary Dx); Anemia due to antineoplastic chemotherapy Start: 08-03-2024 End: 08-03-2024 ambulatory Lab/Port [facility] Work Phone: Hematology/Oncology Comment on above: Ovarian cancer on le ft (HCC); Ovarian cancer, bilateral (HCC); Anemia due to antineoplastic chemotherapy Start: 07-19-2024 End: 07-19-2024 Specialty Pharmacy Florecita Nelson [facility] Comment on above: SPP Oral Oncology/he matology - Medication Refill (Lynparza) Start: 07-13-2024 End: 07-19-2024 Telephone encounter Jaren Mccoy DO Work Phone: Hematology/Oncology Comment on above: Patient Update Start: 07-04-2024 End: 07-04-2024 ambulatory Lab/Port [facility] Work Phone: Hematology/Oncology Comment on above: Ovarian cancer on le ft (HCC) Start: 06-26-2024 End: 06-26-2024 ambulatory Nikki Hung Facility:[facility] Start: 06-20-2024 End: 06-20-2024 Specialty Pharmacy Florecita Nelson [facility] Comment on above: SPP Oral Oncology/he matology - Medication Refill (Lynparza) Start: 06-15-2024 End: 06-15-2024 ambulatory Lab/Port [facility] Work Phone: Hematology/Oncology Comment on above: Ovarian cancer on le ft (HCC); Ovarian cancer, bilateral (HCC); Anemia due to antineoplastic chemotherapy; Thrombocytopenia (HCC); Platelets decreased (HCC) Start: 06-04-2024 End: 06-04-2024 ambulatory [facility] Hematology/Oncology Comment on above: results/scheduling Start: 06-04-2024 End: 06-04-2024 E-mail encounter from caregiver [facility] Provider Hematology/Oncology Start: 06-01-2024 End: 06-01-2024 ambulatory Lab/Port [facility] Work Phone: Hematology/Oncology Comment on above: Ovarian cancer, bila teral (HCC) (Primary Dx); Ovarian cancer on left (HCC); Anemia due to antineoplastic chemotherapy; Thrombocytopenia (HCC); Platelets decreased (HCC) Start: 05-28-2024 End: 05-28-2024 Telephone encounter Estuardo Long RN [place] [facility] Comment on above: Nut 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 - H ospital Follow Up Start: 05-18-2024 End: 05-18-2024 ambulatory Lab/Port [facility] Work Phone: Hematology/Oncology Comment on above: Ovarian cancer on le ft (HCC) SPP Oral Oncology/he matology - Medication Refill (Lynparza 100mg) Start: 05-17-2024 End: 05-17-2024 Patient encounter procedure Mayte Gonzalez PERL DEVELOPER.AIRPLANE PATROL PILOT Work Phone: [facility] Gynecology Oncology Start: 05-17-2024 End: 05-17-2024 ambulatory Mayte Gonzalez PERL DEVELOPER.AIRPLANE PATROL PILOT Work Phone: [facility] [facility] Gyne[facility] Oncology Comment on above: Ovarian cancer, bila teral (HCC) (Primary Dx); BRIP1 gene mutation positive; Attention to colostomy (HCC); Elevated tumor markers Start: 05-09-2024 End: 05-09-2024 Telephone encounter Jaren Mccoy DO Work Phone: Hematology/Oncology Comment on above: Results Start: 05-09-2024 End: 05-09-2024 Patient encounter procedure Rohit Miles MD Work Phone: [facility] Comment on above: Attention to colosto my (HCC) (Primary Dx) Start: 05-09-2024 End: 05-09-2024 ambulatory ROHIT MILES Facility:[facility] Start: 05-07-2024 End: 05-07-2024 ambulatory Lab/[place] [facility] Work Phone: Hematology/Oncology Comment on above: Ovarian cancer on le ft (HCC) (Primary Dx); Ovarian cancer, bilateral (HCC); Anemia due to antineoplastic chemotherapy; Thrombocytopenia (HCC); Platelets decreased (HCC) Start: 05-03-2024 End: 05-10-2024 Telephone encounter Estuardo [employer] Comment on above: Nut 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 - H ospital Follow Up Results Start: 05-03-2024 End: 05-03-2024 Patient encounter procedure Jaren Mccoy DO Work Phone: Hematology/Oncology Start: 05-03-2024 End: 05-03-2024 ambulatory Jaren Mccoy DO Work Phone: Hematology/Oncology Comment on [...] Joy Bolaños RN Hematology/Oncology Comment on above: Nut 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 - O ther (Hospital Discharge ) Start: 04-20-2024 End: 04-20-2024 Admission to establishment [facility] Pre Surgical Testing Start: 04-20-2024 End: 04-20-2024 Preprocedural examination done Pst 1 [facility] Work Phone: Start: 04-20-2024 End: 04-20-2024 ambulatory Florecita Nelson [facility] Pre Surgical Testing Comment on above: Preop examination (P rimary Dx); Attention to colostomy (HCC); 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, involving unspecified site (HCC); Platelets decreased (HCC); Anemia due to antineoplastic chemotherapy; Chronic hypertension SPP Oral Oncology/he matology - Medication Refill (Lynparza) Start: 04-20-2024 End: 04-23-2024 Telephone encounter Estuardo [employer] Start: 04-19-2024 End: 04-19-2024 ambulatory Lab/[place] [facility] Work Phone: Hematology/Oncology Comment on above: Ovarian cancer on le ft (HCC); Ovarian cancer, bilateral (HCC); Anemia due to antineoplastic chemotherapy; Thrombocytopenia (HCC); Platelets decreased (HCC) Start: 04-17-2024 End: 04-17-2024 ambulatory Jaren Mccoy DO Work Phone: Hematology/Oncology Comment on above: Flu shot Start: 04-16-2024 End: 04-16-2024 Telephone encounter Rohit Miles MD Work Phone: [facility] DEPARTMENT Comment on above: Procedure (LAP COLOS GRAYSON REVERSAL/) Patient Update Start: 04-12-2024 End: 04-12-2024 ambulatory Lab/[place] [facility] Work Phone: Hematology/Oncology Comment on above: Ovarian cancer on le ft (HCC) (Primary Dx); Ovarian cancer, bilateral (HCC); Anemia due to antineoplastic chemotherapy; Thrombocytopenia (HCC); Platelets decreased (HCC) Start: 04-06-2024 End: 04-06-2024 Telephone encounter Joy Bolaños lumber carrier/Oncology Comment on above: Nut 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 - O ther (Oral Anti-Cancer Agents Follow-up olaparib ) Start: 04-06-2024 End: 04-06-2024 Patient encounter procedure Rohit Miles MD Work Phone: [facility] Comment on above: Attention to colosto my (HCC) (Primary Dx) Start: 04-05-2024 End: 04-05-2024 ambulatory Lab/[place] [facility] Work Phone: Hematology/Oncology Comment on above: Ovarian cancer on le ft (HCC); Ovarian cancer, bilateral (HCC); Anemia due to antineoplastic chemotherapy; Thrombocytopenia (HCC); Platelets decreased (HCC) Start: 03-29-2024 End: 03-29-2024 ambulatory Lab/[place] [facility] Work Phone: Hematology/Oncology Comment on above: Ovarian cancer, bila teral (HCC) (Primary Dx); Ovarian cancer on left (HCC); Anemia due to antineoplastic chemotherapy; Thrombocytopenia (HCC); Platelets decreased (HCC) Start: 03-28-2024 End: 03-30-2024 Telephone encounter Joy Bolaños RN Hematology/Oncology Comment on above: Nut 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 - O ther (Receiving olaparib 03/28) Start: 03-23-2024 End: 03-23-2024 Refill Jaren Mccoy DO Work Phone: Hematology/Oncology Comment on above: Refill Request Start: 03-22-2024 End: 03-22-2024 Telephone encounter Joy Bolaños RN Hematology/Oncology Comment on above: Nut 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 - O ther (Oral Anti-Cancer Agents Education (lynparza)) Start: 03-21-2024 End: 03-21-2024 ambulatory Lab/[place] [facility] Work Phone: Hematology/Oncology Comment on above: Ovarian cancer, bila teral (HCC) (Primary Dx); Ovarian cancer on left (HCC); Anemia due to antineoplastic chemotherapy; Thrombocytopenia (HCC); Platelets decreased (HCC); Anemia, unspecified type Start: 03-19-2024 End: 03-19-2024 Patient encounter procedure Jaren Mccoy DO Work Phone: Hematology/Oncology Start: 03-19-2024 End: 03-19-2024 ambulatory Lab/[place] [facility] Work Phone: Hematology/Oncology Comment on above: Ovarian cancer on le ft (HCC); Macrocytic anemia Ovarian cancer on le ft (HCC) (Primary Dx); Macrocytic anemia Start: 03-19-2024 End: 03-20-2024 Telephone encounter Jaren Mccoy DO Work Phone: Hematology/Oncology Comment on above: CHEMO PILL START Start: 03-16-2024 End: 03-16-2024 ambulatory Florecita Alves [facility] Start: 03-16-2024 End: 03-16-2024 Patient encounter procedure Florecita Alves [facility] Comment on above: SPP Oral Oncology/he matology - Treatment Referral (Lynparza); Insurance Authorization (Pending [place]) Start: 03-15-2024 End: 03-15-2024 Orders Only Jaren Mccoy DO Work Phone: Hematology/Oncology Comment on above: Ovarian cancer, bila teral (HCC) (Primary Dx); BRIP1 gene mutation positive Start: 02-28-2024 Telephone encounter Jaren bond DO Work Phone: Hematology/Oncology Comment on above: Results Start: 02-28-2024 End: 02-28-2024 ambulatory Lab/[place] [facility] Work Phone: Hematology/Oncology Comment on above: Ovarian cancer on le ft (HCC) Start: 02-27-2024 Telephone encounter Jaren bond DO Work Phone: Hematology/Oncology Comment on above: Patient Question Start: 02-23-2024 Refill Jaren Castellanos Work Phone: Hematology/Oncology Comment on above: Refill Request Start: 02-13-2024 End: 02-13-2024 ambulatory Amabr Vilchis MD Work Phone: [facility] Gynecology Oncology Comment on above: Ovarian cancer on le ft (HCC) (Primary Dx); BRIP1 gene mutation positive Start: 02-13-2024 End: 02-13-2024 Patient encounter procedure Ambar Vilchis MD Work Phone: [facility] Gynecology Oncology Start: 02-12-2024 Orders Only Ambar adam MD Work Phone: [facility] Gynecology Oncology Comment on above: Ovarian cancer on le ft (HCC) (Primary Dx) Start: 02-09-2024 Telephone encounter Ambar Saeed MD Work Phone: [facility] Gynecology Oncology Comment on above: Appointment Start: 02-07-2024 Refill Jaren Castellanos Work Phone: Hematology/Oncology Comment on above: Refill Request Start: 02-06-2024 End: 02-06-2024 Patient encounter procedure Jaren Mccoy DO Work Phone: Hematology/Oncology Start: 02-06-2024 End: 02-06-2024 ambulatory Lab/[place] [facility] Work Phone: Hematology/Oncology Comment on above: Ovarian cancer on le ft (HCC) (Primary Dx); Ovarian cancer, bilateral (HCC); Anemia due to antineoplastic chemotherapy; Thrombocytopenia (HCC); Platelets decreased (HCC) Ovarian cancer on le ft (HCC) (Primary Dx); Thrombocytopenia (HCC); Anemia due to antineoplastic chemotherapy Start: 02-01-2024 End: 02-01-2024 ambulatory Lab[facility] [facility] Work Phone: Hematology/Oncology Comment on above: Ovarian cancer on le ft (HCC) (Primary Dx) Start: 02-01-2024 End: 02-01-2024 Subsequent hospital visit by physician [facility] ([facility] Work Phone: Cat Scan Comment on above: Ovarian cancer, bila teral (HCC) [C56.3] Start: 01-23-2024 Telephone encounter Jaren bond DO Work Phone: Hematology/Oncology Comment on above: Transfusion Start: 01-23-2024 End: 01-23-2024 ambulatory Treatment Rm [address] [facility] Work Phone: Hematology/Oncology Comment on above: Ovarian cancer on le ft (HCC) (Primary Dx); Ovarian cancer, bilateral (HCC); Anemia due to antineoplastic chemotherapy; Thrombocytopenia (HCC); Platelets decreased (HCC) Start: 01-19-2024 End: 01-19-2024 ambulatory Lab/[place] [facility] Work Phone: Hematology/Oncology Comment on above: Ovarian cancer on le ft (HCC) (Primary Dx); Ovarian cancer, bilateral (HCC); Anemia due to antineoplastic chemotherapy; Thrombocytopenia (HCC); Platelets decreased (HCC) Start: 01-16-2024 End: 01-16-2024 Patient encounter procedure Jaren Mccoy DO Work Phone: Hematology/Oncology Start: 01-16-2024 End: 01-16-2024 ambulatory Jaren Mccoy DO Work Phone: Hematology/Oncology Comment on above: Ovarian cancer, bila teral (HCC) (Primary Dx) Ovarian cancer on le ft (HCC); Ovarian cancer, bilateral (HCC); Anemia due to antineoplastic chemotherapy; Thrombocytopenia (HCC) Start: 01-11-2024 Telephone encounter Jaren bond DO Work Phone: Hematology/Oncology Comment on above: Transfusion Start: 01-11-2024 End: 01-11-2024 ambulatory Lab/[place] [facility] Work Phone: Hematology/Oncology Comment on above: Ovarian cancer on le ft (HCC); Ovarian cancer, bilateral (HCC); Anemia due to antineoplastic chemotherapy; Thrombocytopenia (HCC) Start: 01-04-2024 End: 01-04-2024 ambulatory Lab/[place] [facility] Work Phone: Hematology/Oncology Comment on above: Ovarian cancer on le ft (HCC); Ovarian cancer, bilateral (HCC); Anemia due to antineoplastic chemotherapy; Thrombocytopenia (HCC) Start: 12-28-2023 Telephone encounter Jaren bond DO Work Phone: Hematology/Oncology Comment on above: Appointment Start: 12-28-2023 End: 12-28-2023 ambulatory Treatment Rm 9 [facility] Work Phone: Hematology/Oncology Comment on above: Anemia due to antine oplastic chemotherapy (Primary Dx); Ovarian cancer on left (HCC) Start: 12-27-2023 End: 12-27-2023 Patient encounter procedure Jaren Mccoy DO Work Phone: Hematology/Oncology Start: 12-27-2023 End: 12-27-2023 ambulatory Lab/[place] [facility] Work Phone: Hematology/Oncology Comment on above: Ovarian cancer on le ft (HCC) (Primary Dx) Ovarian cancer, bila teral (HCC) (Primary Dx); Anemia due to antineoplastic chemotherapy; Thrombocytopenia (HCC) Start: 12-06-2023 Telephone encounter Jaren bond DO Work Phone: Hematology/Oncology Comment on above: Results Start: 12-06-2023 End: 12-06-2023 Subsequent hospital visit by physician [facility] Work Phone: Radiology Comment on above: Elevated LFTs [R79.8 9] Start: 12-06-2023 End: 12-06-2023 ambulatory Treatment Rm 11 [facility] Work Phone: Hematology/Oncology Comment on above: Ovarian cancer on le ft (HCC) (Primary Dx) Start: 12-05-2023 End: 12-05-2023 Patient encounter procedure Jaren Darryl Mccoy DO Work Phone: Hematology/Oncology Start: 12-05-2023 End: 12-05-2023 ambulatory Lab/[place] [facility] Work Phone: Hematology/Oncology Comment on above: Ovarian cancer on le ft (HCC) Ovarian cancer, bila teral (HCC) (Primary Dx) Start: 11-21-2023 Telephone encounter Brandy aguilar PERL DEVELOPER.[employer] Work Phone: Hematology/Oncology Start: 11-18-2023 End: 11-18-2023 Patient encounter procedure Brandy Ramirez PERL DEVELOPER.[employer] Work Phone: Hematology/Oncology Start: 11-18-2023 End: 11-18-2023 ambulatory Lab/[place] [facility] Work Phone: Hematology/Oncology Comment on above: Ovarian cancer, bila teral (HCC) (Primary Dx); Ovarian cancer on left (HCC); Thrombocytopenia (HCC) Ovarian cancer on le ft (HCC) (Primary Dx); Thrombocytopenia (HCC); Antineoplastic chemotherapy induced anemia Start: 11-11-2023 End: 11-11-2023 ambulatory Mayte Gonzalez PERL DEVELOPER.[employer] Work Phone: [facility] Gynecology Oncology Comment on above: Post-operative state (Primary Dx); Ovarian cancer, bilateral (HCC) Start: 11-11-2023 End: 11-11-2023 Patient encounter procedure Mayte Gonzalez PERL DEVELOPER.[employer] Work Phone: [facility] Start: 11-02-2023 Telephone encounter Joy Bolaños RN He matology/Oncology Comment on above: Nut 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 - O ther (Hospital Discharge ) Start: 11-01-2023 Telephone encounter Soledad Valiente DO Work Phone: [facility] [facility] Start: 10-26-2023 Telephone encounter Ambar Saeed MD Work Phone: [facility] Gynecology Oncology Start: 10-25-2023 Orders Only Ambar adam MD Work Phone: [facility] Gynecology Oncology Comment on above: Appointment Preparations For Luli mancuso Start: 10-19-2023 Encounter for other preprocedural examination AMBAR VILCHIS [facility] Start: 10-19-2023 Preprocedural examination done Ambar Vilchis MD Work Phone: [facility] Work Phone: Start: 10-14-2023 Telephone encounter Ambar Saeed MD Work Phone: [facility] Gynecology Oncology Comment on above: Appointment Start: 10-13-2023 End: 10-13-2023 Preprocedural examination done Ambar Vilchis MD Work Phone: [facility] Work Phone: Start: 10-13-2023 End: 10-13-2023 Orders Only Ambar Vilchis MD Work Phone: [facility] Gynecology Oncology Comment on above: Ovarian cancer on le ft (HCC) (Primary Dx) Preoperative examina tion (Primary Dx); Ovarian cancer on left (HCC); Drug-induced anemia Start: 10-10-2023 End: 10-10-2023 ambulatory Lab/[place] [facility] Work Phone: Hematology/Oncology Comment on above: Ovarian cancer on le ft (HCC) (Primary Dx) Start: 10-07-2023 Telephone encounter Rudy BARBOSA Work Phone: [employer] [facility] Comment on above: Results Urgent Start: 10-07-2023 End: 10-07-2023 Office outpatient visit 25 minutes Jaren Mccoy DO Work Phone: Hematology/Oncology Comment on above: Ovarian cancer on le ft (HCC) (Primary Dx); Platelets decreased (HCC); Antineoplastic chemotherapy induced anemia Start: 10-07-2023 End: 10-07-2023 ambulatory Lab/[place] [facility] Work Phone: Hematology/Oncology Comment on above: Ovarian cancer on le ft (HCC) Start: 10-04-2023 End: 10-04-2023 ambulatory Lab/[place] [facility] Work Phone: Hematology/Oncology Comment on above: Ovarian cancer on le ft (HCC) (Primary Dx) Start: 10-04-2023 End: 10-04-2023 Subsequent hospital visit by physician Ct Prep [facility] Cat Scan Comment on above: Ovarian cancer on le ft (HCC) [C56.2] Start: 09-30-2023 End: 09-30-2023 ambulatory [facility] Work Phone: Start: 09-30-2023 End: 09-30-2023 Patient encounter procedure [facility]Enterostomal Therapy Work Phone: Start: 09-27-2023 Telephone encounter Jaren bond DO Work Phone: Hematology/Oncology Comment on above: Patient Question Start: 09-20-2023 Telephone encounter Jaren bond DO Work Phone: Hematology/Oncology Comment on above: Orders Start: 09-20-2023 End: 09-20-[address] Rivera RD Work Phone: Nutrition Therapy Comment on above: Nutrition Counseling Start: 09-20-2023 End: 09-20-[address] Work Phone: [facility] [employer] Comment on above: Ovarian cancer on le ft (HCC) (Primary Dx) Start: 09-16-2023 End: 09-16-2023 Patient encounter procedure Jaren Mccoy DO Work Phone: [facility] [employer] Start: 09-16-2023 End: 09-16-2023 ambulatory Lab/[place] [facility] Work Phone: Hematology/Oncology Comment on above: Ovarian cancer on le ft (HCC) Ovarian cancer on le ft (HCC) (Primary Dx); Platelets decreased (HCC) Start: 09-14-2023 End: 09-14-2023 ambulatory Rudy BARBOSA Work Phone: [facility] Comment on above: Ovarian cancer on le ft (HCC) Start: 09-14-2023 End: 09-14-2023 Telemedicine consultation with patient Rudy Do LGRich Work Phone: [facility] Start: 08-30-2023 End: 08-30-2023 ambulatory Treatment Rm 2 [facility] Work Phone: Hematology/Oncology Comment on above: Ovarian cancer on le ft (HCC) (Primary Dx) Refill Request Start: 08-30-2023 End: 08-30-20[address] Nutrition therapy Wendy Rivera RD Work Phone: Nutrition Therapy Comment on above: Nutrition Assessment Start: 08-26-2023 End: 08-26-2023 Patient encounter procedure Brandy Ramirez APRN.[employer]PLANE PATROL PIL[employer] Work Phone: [facility] Start: 08-26-2023 End: 08-26-2023 ambulatory Lab/[place] [facility] Work Phone: Hematology/Oncology Comment on above: Ovarian cancer on le ft (HCC) (Primary Dx) Start: 08-17-2023 End: 08-17-[address] therapy Wendy Rivera RD Work Phone: Nutrition Therapy Comment on above: Ovarian cancer on le ft (HCC) (Primary Dx); Severe protein-calorie malnutrition (HCC) Start: 08-17-2023 End: 08-17-2023 Telemedicine consultation with patient Wendy Rivera RD Work Phone: [facility] Start: 08-04-2023 End: 08-04-2023 ambulatory TAMEKA STEPHENSON Facility:[id number] Start: 07-20-2023 ambulatory NONE PHYSICIAN Facility :R Start: 07-10-2023 End: 07-10-2023 Emergency department patient visit [facility]Emergency Department Work Phone: Start: 06-21-2023 End: 06-21-2023 Patient encounter procedure [facility]-Outpatient Breast Imaging Work Phone: Start: 01-26-2023 End: 01-26-[address] Emily Casanova Work Phone: [facility] Work Phone: Start: 01-26-2023 End: 01-26-[address] Emily Casanova Work Phone: [facility]-Laboratory Work Phone: Start: 01-18-2023 End: 01-18-[address] Emily Casanova Work Phone: [facility] Work Phone: Start: 01-04-2023 End: 01-04-[address] Emily Casanova Work Phone: [facility] Work Phone: Start: 01-04-2023 End: 01-04-[address] Emily Casanova Work Phone: [facility] Start: 12-06-2022 End: 12-06-[address] Emily Casanova Work Phone: [facility] Start: 12-02-2022 End: 12-02-2022 Emergency department patient visit Dr. Emily Casanova Work Phone: [facility]-Emergency Department Start: 11-02-2022 End: 11-02-[address] Emliy Casanova Work Phone: [facility] Work Phone: Start: 11-02-2022 End: 11-02-[address] Emily Casanova Work Phone: [facility] Start: 10-20-2022 End: 10-20-2022 ambulatory [facility] Work Phone: Start: 10-20-2022 End: 10-20-[address] [facility], [facility] Start: 10-15-2022 End: 10-15-2022 ambulatory [facility] Work Phone: Start: 10-15-2022 End: 10-15-2022 Patient encounter procedure [facility]-Cat Scan, [facility] Start: 07-06-2022 End: 07-06-2022 Patient encounter procedure Mark Teresa Cande OD Work Phone: Optometry Comment on above: Long-term use of Rian quenil (Primary Dx); Combined forms of age-related cataract, bilateral; Vitreous floaters of both eyes; Myopia, bilateral; Regular astigmatism of both eyes; Presbyopia; Glaucoma suspect of left eye Start: 05-12-2022 End: 05-12-2022 ambulatory [facility] Work Phone: Start: 05-12-2022 End: 05-12-2022 Patient encounter procedure [facility]Laboratory Start: 11-09-2021 End: 11-09-2021 Patient encounter procedure [facility]Labor[facility] Procedures Date Procedure Procedure Detail Performing Clinician Start: 04-03-2025 Blood count complete auto&auto difrntl wbc Jaren Andrews Masci DO Work Phone: Start: 03-18-2025 Blood count complete auto&auto difrntl wbc Jaren Andrews Masci DO Work Phone: Start: 03-07-2025 Blood count complete auto&auto difrntl wbc Jaren Andrews [facility] Work Phone: Start: 02-08-2025 Blood count complete auto&auto difrntl wbc Jaren Andrews Masci DO Work Phone: Start: 01-03-2025 Blood count complete auto&auto difrntl wbc Jaren Andrews Masci DO Work Phone: Start: 11-29-2024 Blood count complete auto&auto difrntl wbc Jaren Andrews Masci DO Work Phone: Start: 11-02-2024 Blood count complete auto&auto difrntl wbc Jaern Andrews Masci DO Work Phone: Start: 10-17-2024 Computerized ophthal [place] imaging optic nerve Mark Kruse OD Work Phone: Start: 09-28-2024 Blood count complete auto&auto difrntl wbc Jaren Andrews Masci DO Work Phone: Start: 08-31-2024 Blood count complete auto&auto difrntl wbc Jaren Andrews Masci DO Work Phone: Start: 08-03-2024 Blood count complete auto&auto difrntl wbc Jaren A Masci DO Work Phone: Start: 07-04-2024 Blood count complete auto&auto difrntl wbc Jaren A Masci DO Work Phone: Start: 06-15-2024 Blood count complete auto&auto difrntl wbc Jaren A Masci DO Work Phone: Start: 06-01-2024 Blood count complete auto&auto difrntl wbc Jaren A Masci DO Work Phone: Start: 05-18-2024 Blood count complete auto&auto difrntl wbc Jaren A Masci DO Work Phone: Start: 05-07-2024 CBC + DIFF Jaren Begum ci DO Work Phone: Start: 05-07-2024 Comprehensive metabo lic 2000 panel - Serum or Plasma Jaren A Masci DO Work Phone: Start: 05-03-2024 Blood count complete auto&auto difrntl wbc Jaren A Masci DO Work Phone: Start: 04-19-2024 Blood count complete auto&auto difrntl wbc Jaren A Masci DO Work Phone: Start: 04-12-2024 Blood count complete auto&auto difrntl wbc Jaren A Masci DO Work Phone: Start: 04-05-2024 Blood count complete auto&auto difrntl wbc Jaren A Masci DO Work Phone: Start: 03-29-2024 Blood count complete auto&auto difrntl wbc Jaren A Masci DO Work Phone: Start: 03-21-2024 Blood count complete auto&auto difrntl wbc Jaren Andrews Masci DO Work Phone: Start: 03-19-2024 Blood count complete auto&auto difrntl wbc Jaren Andrews Masci DO Work Phone: Start: 02-28-2024 Blood count complete auto&auto difrntl wbc Jaren Andrews Masci DO Work Phone: Start: 02-06-2024 Blood count complete auto&auto difrntl wbc Jaren Andrews Masci DO Work Phone: Start: 01-23-2024 End: 01-23-2024 Blood count complete auto&auto difrntl wbc Jaren Andrews Masci DO Work Phone: Start: 01-19-2024 Blood count complete auto&auto difrntl wbc Jaren Andrews Masci DO Work Phone: Start: 01-16-2024 Blood count complete auto&auto difrntl wbc Jaren Andrews Masci DO Work Phone: Start: 01-11-2024 CBC + DIFF Jaren A Mas ci DO Work Phone: Start: 01-04-2024 CBC + DIFF Jaren Begum ci DO Work Phone: Start: 12-28-2023 Blood count complete auto&auto difrntl wbc Jaren Andrews Masci DO Work Phone: Start: 12-27-2023 Blood count complete auto&auto difrntl wbc Jaren Andrews Masci DO Work Phone: Start: 12-27-2023 Immunoassay tumor an tigen quantitative ca 125 Jaren Andrews Masci DO Work Phone: Start: 12-06-2023 Us abdominal real ti me w/image limited Jaren Andrews Masci DO Work Phone: Start: 12-05-2023 Blood count complete auto&auto difrntl wbc Jaren Andrews Masci DO Work Phone: Start: 11-18-2023 Blood count complete auto&auto difrntl wbc Jaren Andrews Masci DO Work Phone: Start: 11-18-2023 Immunoassay tumor an tigen quantitative ca 125 Jaren Andrews Masci DO Work Phone: Start: 10-10-2023 Blood count complete auto&auto difrntl wbc Jaren Andrews Masci DO Work Phone: Start: 10-07-2023 Blood count complete auto&auto difrntl wbc Jaren Andrews Masci DO Work Phone: Start: 10-07-2023 Immunoassay tumor an tigen quantitative ca 125 Jaren Andrews Masci DO Work Phone: Start: 09-20-2023 Blood count complete auto&auto difrntl wbc Jaren Andrews Masci DO Work Phone: Start: 09-16-2023 Blood count complete auto&auto difrntl wbc Jaren Andrews Masci DO Work Phone: Start: 08-26-2023 Blood count complete auto&auto difrntl wbc Jaren Andrews Masci DO Work Phone: Start: 08-26-2023 Immunoassay tumor an tigen quantitative ca 125 Jaren Andrews Masci DO Work Phone: Start: 07-10-2023 SARS-CoV-2 & [...] OD Work Phone: Start: 11-09-2007 Mammography Mark Burnham ridhimanshu II, OD Work Phone: Start: 01-04-2007 Lipid 1996 panel - S debra or Plasma Wendy Miguel RD Work Phone: Start: 02-10-2002 Colonoscopy Mark Burnham ridhimanshu II, OD Work Phone: Plan of Treatment Date Care Activity Detail Author Start: 02-09-2028 Diabetes Screening Diabetes Screenin g [facility] Start: 11-03-2027 Diabetes Screening Diabetes Screenin g [facility] Start: 09-06-2027 Diabetes Screening Diabetes Screenin g [facility] Start: 08-27-2027 Diabetes Screening Diabetes Screenin g [facility] Start: 08-03-2027 Diabetes Screening Diabetes Screenin g [facility] Start: 07-04-2027 Diabetes Screening Diabetes Screenin g [facility] Start: 06-15-2027 Diabetes Screening Diabetes Screenin g [facility] Start: 06-01-2027 Diabetes Screening Diabetes Screenin g [facility] Start: 05-18-2027 Diabetes Screening Diabetes Screenin g [facility] Start: 05-07-2027 Diabetes Screening Diabetes Screenin g [facility] Start: 05-03-2027 Diabetes Screening Diabetes Screenin g [facility] Start: 04-26-2027 Diabetes Screening Diabetes Screenin g [facility] Start: 04-05-2027 Diabetes Screening Diabetes Screenin g [facility] Start: 03-19-2027 Diabetes Screening Diabetes Screenin g [facility] Start: 02-05-2027 Diabetes Screening Diabetes Screenin g [facility] Start: 01-22-2027 Diabetes Screening Diabetes Screenin g [facility] Start: 01-15-2027 Diabetes Screening Diabetes Screenin g [facility] Start: 12-26-2026 Diabetes Screening Diabetes Screenin g [facility] Start: 12-04-2026 Diabetes Screening Diabetes Screenin g [facility] Start: 11-17-2026 Diabetes Screening Diabetes Screenin g [facility] Start: 10-31-2026 Diabetes Screening Diabetes Screenin g [facility] Start: 10-19-2026 Diabetes Screening Diabetes Screenin g [facility] Start: 10-06-2026 Diabetes Screening Diabetes Screenin g [facility] Start: 09-16-2026 Diabetes Screening Diabetes Screenin g [facility] Start: 08-26-2026 Diabetes Screening Diabetes Screenin g [facility] Start: 08-09-2026 Diabetes Screening Diabetes Screenin g [facility] Start: 04-03-2026 Complete blood count Hemoglobin/Jonathan tocrit [facility] Start: 03-18-2026 Complete blood count Hemoglobin/Jonathan tocrit [facility] Start: 03-07-2026 Complete blood count Hemoglobin/Jonathan tocrit [facility] Start: 02-08-2026 Complete blood count Hemoglobin/Jonathan tocort [facility] Start: 02-08-2026 Creatinine measurement Serum Creatin ine [facility] Start: 10-23-2025 End: 10-23-2025 Patient encounter procedure 10/23/2025 10:00 AM EDT Office Visit [facility] [address] [place] [address] Mark Kruse II, OD [address] [place] [address] eye exam/[facility] Comment on above: eye exam/[facility] Start: 06-26-2025 Screening for malign ant neoplasm of breast Mammogram Screening [facility] Start: 06-24-2025 End: 06-24-2025 ambulatory 06/24/2025 1:00 PM EST Visit (SP) Office [facility] [address] [place], [place] [id number] Ambar Vilchis MD [address] [address] 4 month exam [facility] Comment on above: 4 month exam Start: 05-30-2025 End: 05-30-2025 ambulatory 05/30/2025 2:00 PM EST Infusion Center Hematology/Oncology [address] [place], [place] [address] CBC(PORT)D8 GEMZAR* Hematology/Oncology Comment on above: CBC(PORT)D8 GEMZAR* Start: 05-23-2025 End: 05-23-2025 ambulatory 05/23/2025 9:30 AM EDT Infusion Center Hematology/Oncology [address] [place] [address] Q3WK MVASI/GEMZAR/CARBO(PORT)L AB&OV 05/21* Hematology/Oncology Comment on [...] EDT Visit (SP) Office Hematology/Oncology [address] [place] [address] Peg Crowell [address] [place] [address] OV(PORT)LAB EARLY/CHEMO 05/01* [facility] Hematology/Oncology Comment on [...] on left (HCC) Expected: 04/03/2025, Expires: 07/03/2025 [facility] Comment on above: Expected: 04/03/2025 , Expires: 07/03/2025 Start: 04-03-2025 End: 07-03-2025 COPPER BLOOD COPPER BLOOD Lab Routine Anemia due to antineoplastic chemotherapy Ovarian cancer on left (HCC) Expected: 04/03/2025, Expires: 07/03/2025 [facility] Comment on above: Expected: 04/03/2025 , Expires: 07/03/2025 Start: 04-03-2025 End: 07-03-2025 RETICULOCYTE COUNT RETICULOCYTE COUNT Lab Routine Anemia due to antineoplastic chemotherapy Ovarian cancer on left (HCC) Expected: 04/03/2025, Expires: 07/03/2025 [facility] Work Phone: Comment on above: Expected: 04/03/2025 , Expires: 07/03/2025 Start: 04-03-2025 End: 07-03-2025 Thyrotropin [Units/volume] in Serum or Plasma THYROID STIMULATING HORMONE Lab Routine Anemia due to antineoplastic chemotherapy Ovarian cancer on left (HCC) Expected: 04/03/2025, Expires: 07/03/2025 [facility] Comment on above: Expected: 04/03/2025 , Expires: 07/03/2025 Start: 04-03-2025 End: 04-03-2025 ambulatory Hematology/Oncology Comment on above: QMO CBC(PORT) (SO)CBC(PORT)* (SO)CBC(?TX)(PORT)* Start: 03-25-2025 Influenza vaccination Influenza Vacc ine (#1) [facility] Start: 03-20-2025 End: 03-20-2025 ambulatory 03/20/2025 1:30 PM EDT Infusion Center Hematology/Oncology [address] [place] [address] Wstr, Nut 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 [facility] [address] [place] [address] CHEMO ED Hematology/Oncology Comment on above: CHEMO ED Start: 03-18-2025 End: 03-18-2025 Specialty Pharmacy [facility] Comment on above: Refill - Lynparza [3 0D] - CBC/?TX(PORT)* (SO)CBC(?TX)(PORT)* Start: 03-15-2025 End: 03-15-2025 ambulatory 03/15/2025 10:00 AM EDT Visit (SP) Office Hematology/Oncology [address] [place] [address] Jaren Mccoy DO [address] [place] [address] OV/DISCUSS TREATMENT PLAN* Hematology/Oncology Comment on above: OV/DISCUSS TREATMENT PLAN* Start: 03-08-2025 End: 03-08-2025 ambulatory 03/08/2025 10:15 AM EDT Infusion Center Hematology/Oncology [address] [place] [address] Wstr, Lab/Port Jonathan [facility] [address] [place] [address] IRON STUDIES (PORT)* Hematology/Oncology Comment on above: IRON STUDIES (PORT)* Start: 03-07-2025 End: 03-07-2025 ambulatory Hematology/Oncology Comment on above: QMO CBC/SERUM FOLATE (PORT) (SO)CBC(PORT)* Start: 03-06-2025 End: 03-06-2025 ambulatory 03/06/2025 10:00 AM EDT Infusion Center Hematology/Oncology [address] [place] [address] Wstr, Lab/Port Jonathan [facility] [address] [place] [address] QMO CBC/SERUM FOLATE(PORT) Hematology/Oncology Comment on above: QMO CBC/SERUM FOLATE (PORT) Start: 03-05-2025 End: 03-05-2025 Patient encounter procedure Cat Scan Comment on above: Ovarian cancer, bila teral (HCC) [C56.3] Start: 03-05-2025 End: 03-05-2025 ambulatory 03/05/2025 8:00 AM EDT Infusion Center Hematology/Oncology [address] [place] [address] 2ND FLOOR Hematology/Oncology Comment on above: 2ND FLOOR Start: 02-27-2025 End: 02-27-2025 ambulatory 02/27/2025 1:00 PM EDT Visit (SP) Office [facility] [address] [place] [address] Mayte Gonzalez, PERL DEVELOPER.[employer] [address] [place] [address] 3 month exam [facility] Comment on above: 3 month exam Start: 02-22-2025 End: 02-22-2025 ambulatory 02/22/2025 9:30 AM EDT Infusion Center Hematology/Oncology [address] [place] [address] 2ND FLOOR Hematology/Oncology Comment on above: 2ND FLOOR Start: 02-20-2025 End: 02-20-2025 ambulatory 02/20/2025 9:30 AM EDT Infusion Center Hematology/Oncology [address] [place] [address] 2ND FLOOR Hematology/Oncology Comment on above: 2ND FLOOR Start: 02-18-2025 End: 02-18-2025 ambulatory 02/18/2025 1:30 PM EDT Infusion Center Hematology/Oncology [address] [place] [address] 2ND FLOOR Hematology/Oncology Comment on above: 2ND FLOOR Start: 02-15-2025 End: 02-15-2025 ambulatory 02/15/2025 1:30 PM EDT Infusion Center Hematology/Oncology [address] [place] [address] 2ND FLOOR Hematology/Oncology Comment on above: 2ND FLOOR Start: 02-15-2025 End: 02-15-2025 Specialty Pharmacy 02/15/2025 7:15 AM EDT Specialty Pharmacy [facility] [address] [place] [address] Pharmacist, [facility]ty[facility] [address] [place] [address] [place], [place] [phone] Refill - Lynparza [30D] - [facility] Comment on above: Refill - Lynparza [3 0D] - Start: 02-08-2025 End: 02-08-2025 ambulatory Yadi Kanosh [facility] Laboratory Comment on above: CBC/CMP/CA125 3 MO OV/LAB EARLY* CBC/CMP/CA125(PORT)* 3 MO OV(PORT)LAB EAR LY* Start: 02-08-2025 End: 05-10-2025 Cobalamin (Vitamin B12) [Mass/volume] in Serum or Plasma [facility] Comment on above: Expected: 02/08/2025 , Expires: 05/10/2025 Start: 02-08-2025 End: 05-10-2025 Ferritin [Mass/volume] in Serum or Plasma [facility] Comment on above: Expected: 02/08/2025 , Expires: 05/10/2025 Start: 02-08-2025 End: 05-10-2025 Folate [Mass/volume] in Serum or Plasma FOLATE, SERUM Lab Routine Anemia, unspecified type Expected: 02/08/2025, Expires: 05/10/2025 [facility] Comment on above: Expected: 02/08/2025 , Expires: 05/10/2025 Start: 02-08-2025 End: 05-10-2025 Iron and Iron binding capacity panel - Serum or Plasma [facility] Comment on above: Expected: 02/08/2025 , Expires: 05/10/2025 Start: 02-08-2025 End: 05-10-2025 Methylmalonate [Moles/volume] in Serum or Plasma [facility] Comment on above: Expected: 02/08/2025 , Expires: 05/10/2025 Start: 01-18-2025 End: 01-18-2025 Specialty Pharmacy 01/18/2025 8:00 AM EDT Specialty Pharmacy [facility] [address] [place] [address] Pharmacist, [facility]ty[facility] [address] [place] [address] [place] [address] Refill - Lynparza [30D] - [facility] Comment on above: Refill - Lynparza [3 0D] - Start: 01-03-2025 End: 01-03-2025 ambulatory [facility] Laboratory Comment on above: QMO CBC QMO CBC(PORT)* Start: 12-18-2024 End: 12-18-2024 Specialty Pharmacy 12/18/2024 8:15 AM EDT Specialty Pharmacy [facility] [address] [place], [place] [phone] Pharmacist, Specialtygroup [address] [place] [address] [place] [address] Refill - Lynparza [30D] - [facility] Comment on above: Refill - Lynparza [3 0D] - Start: 11-30-2024 End: 11-30-2024 ambulatory 11/30/2024 1:30 PM EDT Visit (SP) Office [facility] [address] [place] [address] Ambar Vilchis MD [address] [id number] 3 month exam [facility] Comment on above: 3 month exam Start: 11-29-2024 End: 11-29-2024 ambulatory 11/29/2024 10:00 AM EDT Results Only Yadi Lucaswn [facility] Laboratory [address] [place] [address] QMO CBC [place] [facility] Laboratory Comment on above: QMO CBC Start: 11-22-2024 End: 11-22-2024 ambulatory 11/22/2024 10:00 AM EDT Visit (SP) Office [facility] [address] [place] [address] Ambar Vilchis MD [address] [place] [address] 3 month exam [facility] Comment on above: 3 month exam Start: 11-19-2024 End: 11-19-2024 Specialty Pharmacy 11/19/2024 8:00 AM EDT Specialty Pharmacy [facility] [employer] [place] [phone] Pharmacist, Specialtygroup [address] [place] [address] [place] [address] Refill - Lynparza [30D] - [facility] Comment on above: Refill - Lynparza [3 0D] - Start: 11-02-2024 End: 11-02-2024 ambulatory Hematology/Oncology Comment on above: (SO)CBC/CMP(S)/CA125 (PORT)/OV TODAY* 3 MO OV(PORT)LAB EAR LY* Start: 10-22-2024 End: 10-22-2024 Specialty Pharmacy 10/22/2024 8:00 AM EDT Specialty Pharmacy [facility] [employer] [address] [address] Pharmacist, Specialtygroup [address] [place] [address] [place] [address] Refill - Lynparza [30DS] [facility] Comment on above: Refill - Lynparza [3 0DS] Start: 09-28-2024 End: 09-28-2024 Patient encounter procedure 09/28/2024 11:30 AM EST Office Visit [facility] [address] [place] [address] Rohit Miles MD [address] [facility] [address] [place], [place] [id number] Post Op Colostomy Reversal [facility] Comment on above: Post Op Colostomy Re versal Start: 09-28-2024 End: 09-28-2024 ambulatory Hematology/Oncology Comment on above: QMO CMP(S)(PORT)* QMO CMP(S)/ CA-125 ( PORT)* QMO CBC (TX ?)/CA-12 5 (PORT)* Start: 09-19-2024 End: 09-19-2024 Specialty Pharmacy 09/19/2024 7:45 AM EST Specialty Pharmacy [facility] [employer] [address] [address] Pharmacist, Specialtygroup [address] [place] [phone] Refill - Lynparza [30D] - LVM 09/17 [facility] Comment on above: Refill - Lynparza [3 0D] - LVM 09/17 Start: 09-17-2024 End: 09-17-2024 Patient encounter procedure 09/17/2024 3:30 PM EST Office Visit [facility] [address] [place] [address] Rohit Miles MD [address] [facility] [address] [place] [address] Post Op Colostomy Reversal [facility] Comment on above: Post Op Colostomy Re versal Start: 09-17-2024 End: 09-17-2024 Specialty Pharmacy 09/17/2024 7:30 AM EST Specialty Pharmacy [facility] [employer] [address] [address] Pharmacist, Specialtygroup [address] [place] [phone] Refill - Lynparza [30D] - [facility] Comment on above: Refill - Lynparza [3 0D] - Start: 09-04-2024 End: 09-04-2024 Admission to same day surgery center 09/04/2024 7:30 AM EST - 09/04/2024 10:15 AM EST Surgery [facility] [address] [place] [address] Rohit Miles MD [address] [id number] COLOSTOMY CLOSURE [facility] Comment on above: COLOSTOMY CLOSURE Start: 09-04-2024 End: 09-04-2024 Clsr ntrstm lg/sm rescj & colorectal anastomosis CLOSURE COLOSTOMY LITHOTOMY ADULT Attention to colostomy (HCC) 09/04/2024 7:30 AM EST [facility] OR Start: 09-04-2024 Subsequent hospital visit by physician 09/04/2024 7:30 AM EST Hospital Encounter [facility] [address] [place] [address] Rohit Miles MD [address] [id number] Attention to colostomy (HCC) [Z43.3] [facility] Comment on above: Attention to colosto my (HCC) [Z43.3] Start: 08-31-2024 End: 08-31-2024 ambulatory Hematology/Oncology Comment on above: QMO CMP(S)(PORT)* QMO CMP(S)/CA 125(PO RT)* Start: 08-27-2024 End: 08-27-2024 ambulatory 08/27/2024 10:40 AM EST PAT Pre Surgical Testing 1 [place], [place] [id number] COLOSTOMY CLOSURE Pre Surgical Testing Comment on above: COLOSTOMY CLOSURE Start: 08-23-2024 End: 08-23-2024 ambulatory 08/23/2024 11:30 AM EST Visit (SP) Office [facility] [address] [place], [place] [phone] RaAmbar Elias MD [address] [address] 3 month exam [facility] Comment on above: 3 month exam Start: 08-20-2024 End: 08-20-2024 Specialty Pharmacy 08/20/2024 8:00 AM EST Specialty Pharmacy [facility] [address] [place] [phone] Pharmacist, Specialtygroup [address] [place] [address] [place] [address] Refill - Lynparza (30 DS) [facility] Comment on above: Refill - Lynparza (3 0 DS) Start: 08-16-2024 End: 08-16-2024 ambulatory 08/16/2024 10:00 AM EST Visit (SP) Office [facility] [address] [place] [address] Ambar Vilchis MD [address] [address] 3 month exam [facility] Comment on above: 3 month exam Start: 08-15-2024 End: 08-15-2024 Patient encounter procedure 08/15/2024 10:00 AM EST Appointment [facility] [address] [place] [address] Attention to colostomy (HCC) [Z43.3] [facility] Comment on above: Attention to colosto my (HCC) [Z43.3] Start: 08-13-2024 End: 08-13-2024 Specialty Pharmacy 08/13/2024 7:30 AM EST Specialty Pharmacy [facility] [address] [place] [phone] Pharmacist, Specialtygroup [address] [place] [address] [place] [address] Refill - Lynparza (30 DS) new ins on file, check for PA [facility] Comment on above: Refill - Lynparza (3 0 DS) new ins on file, check for PA Start: 08-10-2024 End: 08-10-2024 Patient encounter procedure 08/10/2024 9:30 AM EST Office Visit [facility] [address] [place] [address] Rohit Miles MD [address] [facility] [place], [place] [id number] 3 month f/u [facility] Comment on above: 3 month f/u Start: 08-03-2024 End: 08-03-2024 ambulatory Hematology/Oncology Comment on above: (SO)CBC/CMP(S)/CA125 (PORT)/OV TODAY* 3 MO OV(PORT)LAB EAR LY* Start: 07-25-2024 Advance Directive Discussion Advance Directive Discussion [facility] Start: 07-25-2024 Medicare Advantage Annual Wellness Visit Medicare Advantage Annual Wellness Visit [facility] Start: 07-19-2024 End: 07-19-2024 Specialty Pharmacy 07/19/2024 7:15 AM EST Specialty Pharmacy [facility] [address] [place] [address] [place] [address] Pharmacist, Specialtygroup [address] [place] [phone] Refill - Lynparza (30 DS) [facility] Comment on above: Refill - Lynparza (3 0 DS) Start: 07-17-2024 Covid-19 Vaccine ( season) Covid-19 Vaccine ( season) [facility] Start: 07-04-2024 End: 07-04-2024 ambulatory 07/04/2024 10:00 AM EST Infusion Center Hematology/Oncology [address] [place] [phone] Wstr, Lab/Port Jonathan [facility] [address] [place] [phone] CBC(PORT)* Hematology/Oncology Comment on above: CBC(PORT)* Start: 06-22-2024 End: 06-22-2024 Specialty Pharmacy 06/22/2024 8:00 AM EST Specialty Pharmacy [facility] [address] [facility] [place] [address] Pharmacist, Specialtygroup [address] [place] [address] [place] [address] Refill - Lynparza (30 DS) [facility] Comment on above: Refill - Lynparza (3 0 DS) Start: 06-15-2024 End: 06-15-2024 ambulatory 06/15/2024 10:00 AM EST Infusion Center Hematology/Oncology [address] [place] [address] Wstr, Lab/Port Jonathan [facility] [address] [place] [address] (SO)CBC/CMP(S)/CA125(PORT )* Hematology/Oncology Comment on above: (SO)CBC/CMP(S)/CA125 (PORT)* Start: 06-01-2024 End: 06-01-2024 ambulatory 06/01/2024 10:00 AM EST Infusion Center Hematology/Oncology [address] [place] [address] Wstr, Lab/Port Jonathan c [address] [place] [address] (SO)CBC/CMP(S)(PORT)* Hematology/Oncology Comment on above: (SO)CBC/CMP(S)(PORT) * Start: 05-25-2024 End: 05-25-2024 Specialty Pharmacy 05/25/2024 7:00 AM EDT Specialty Pharmacy [facility] [address] [place] [address] Pharmacist, [facility]ty[facility] [place] [address] Refill - Lynparza (30 DS) [facility] Comment on above: Refill - Lynparza (3 0 DS) Start: 05-18-2024 End: 05-18-2024 Specialty Pharmacy [facility] Comment on above: Refill - Lynparza (3 0 DS) (SO)CBC/CMP(S)(PORT) * (SO)CBC/CMP(S)/CA 12 5(PORT)* Start: 05-17-2024 End: 05-17-2024 ambulatory 05/17/2024 10:30 AM EDT Visit (SP) Office [facility] [address] [place] [address] Ambar Vilchis MD [address] [place] [address] 3 month exam [facility] Comment on above: 3 month exam Start: 05-11-2024 End: 05-11-2024 Patient encounter procedure 05/11/2024 11:30 AM EDT Office Visit [facility] [address] [place] [address] Rohit Miles MD [address] [facility] [address] [place] [address] Post Op Lap colostomy Reversal [facility] Comment on above: Post Op Lap colostom y Reversal Start: 05-09-2024 End: 05-09-2024 Patient encounter procedure 05/09/2024 11:00 AM EDT Office Visit [facility] [address] [facility] 3rd Floor [place] [phone] Rohit Miles MD [address] [facility] [address] [place] [address] Post Op Lap colostomy Reversal [facility] Comment on above: Post Op Lap colostom y Reversal Start: 05-07-2024 End: 05-07-2024 ambulatory 05/07/2024 10:00 AM EDT [facility] Center Hematology/Oncology [address] [place], [place] [address] Wstr, Lab/Port Jonathan [facility] [address] [place], [place] [phone] CMP(PORT)* Hematology/Oncology Comment on above: CMP(PORT)* Start: 05-03-2024 End: 05-03-2024 ambulatory Hematology/Oncology Comment on above: QWK CBC ?TX(PORT)* OV(PORT)LAB EARLY* QWK CBC/CMP/CA125 ?T X(PORT)* Start: 04-26-2024 End: 04-26-2024 ambulatory 04/26/2024 10:30 AM EDT Infusion Center Hematology/Oncology [address] [place] [address] Wstr, Lab/Port Jonathan [facility] [address] [place] [address] CBC/CMP/CA125(PORT)* Hematology/Oncology Comment on above: CBC/CMP/CA125(PORT)* Start: 04-24-2024 End: 04-24-2024 Admission to same day surgery center 04/24/2024 8:00 AM EDT - 04/24/2024 2:45 PM EDT Surgery [facility] [address] [facility] [address] Rohit Miles MD [address] [facility] [address] [place], [place] [id number] LAPAROSCOPIC COLOSTOMY REVERSAL [facility] Comment on above: LAPAROSCOPIC COLOSTO MY REVERSAL Start: 04-24-2024 End: 04-24-2024 Laps moblj splenic flxr pfrmd w/prtl colectomy COLECTOMY PARTIAL, LAPAROSCOPIC Attention to colostomy (HCC) 04/24/2024 8:00 AM EDT [facility] OR Start: 04-24-2024 Subsequent hospital visit by physician 04/24/2024 8:00 AM EDT Hospital Encounter [facility] [address] [place] [address] Rohit Miles MD [address] [place], [place] [id number] Attention to colostomy (HCC) [Z43.3] [facility] Comment on above: Attention to colosto my (HCC) [Z43.3] Start: 04-20-2024 End: 04-20-2024 ambulatory 04/20/2024 2:20 PM EDT PAT Pre Surgical Testing [address] [place] [address] LAPAROSCOPIC COLOSTOMY REVERSAL Pre Surgical Testing Comment on above: LAPAROSCOPIC COLOSTO MY REVERSAL Start: 04-20-2024 End: 04-20-2024 Telephone encounter 04/20/2024 8:30 AM EDT Specialty Pharmacy [facility] [address] [place], [place] [id number] [place] [address] Pharmacist, [facility] [address] [place] [address] [place] [address] Refill - Lynparza (30 DS) Per telephone [...] Infusion Center Hematology/Oncology [address] [place] [address] Wstr, Lab/Port [place] [facility] [address] [place] [address] QWK CBC ?TX(PORT)* Hematology/Oncology Comment on above: QWK CBC ?TX(PORT)* Start: 04-06-2024 End: 04-06-2024 Patient encounter procedure 04/06/2024 9:30 AM EDT Office Visit [facility] [address] [place] [address] Rohit Miles MD 1 [facility] [address] [place], [place] [id number] discuss takedown [facility] Comment on above: discuss takedown [facility] Start: 04-05-2024 End: 04-05-2024 ambulatory 04/05/2024 10:30 AM EDT Infusion Center Hematology/Oncology [address] [place] [address] Wstr, Lab/Port [place] [facility] [address] [place] [address] QWK CBC ?TX(PORT)* Hematology/Oncology Comment on above: QWK CBC ?TX(PORT)* Start: 03-25-2024 Covid-19 Vaccine ( season) Covid-19 Vaccine ( season) [facility] Start: 03-25-2024 Influenza vaccination C [facility] Start: 03-21-2024 End: 03-21-2024 ambulatory 03/21/2024 10:45 AM EDT Infusion Center Hematology/Oncology [address] [place] [address] Wstr, Lab/Port [place] [facility] [address] [place] [address] COPPER/RETIC/IRON STUDIES(PORT)* Hematology/Oncology Comment on above: COPPER/RETIC/IRON ST UDIES(PORT)* Start: 03-20-2024 End: 06-19-2024 COPPER BLOOD COPPER BLOOD Lab Routine Anemia, unspecified type Expected: 03/20/2024, Expires: 06/19/2024 [facility] Work Phone: Comment on above: Expected: 03/20/2024 , Expires: 06/19/2024 Start: 03-20-2024 End: 06-19-2024 Ferritin [Mass/volume] in Serum or Plasma FERRITIN Lab Routine Anemia, unspecified type Expected: 03/20/2024, Expires: 06/19/2024 [facility] Comment on above: Expected: 03/20/2024 , Expires: 06/19/2024 Start: 03-20-2024 End: 06-19-2024 Iron and Iron binding capacity panel - Serum or Plasma IRON AND TIBC Lab Routine Anemia, unspecified type Expected: 03/20/2024, Expires: 06/19/2024 [facility] Comment on above: Expected: 03/20/2024 , Expires: 06/19/2024 Start: 03-20-2024 End: 06-19-2024 RETICULOCYTE COUNT RETICULOCYTE COUNT Lab Routine Anemia, unspecified type Expected: 03/20/2024, Expires: 06/19/2024 [facility] Comment on above: Expected: 03/20/2024 , Expires: 06/19/2024 Start: 03-19-2024 End: 03-19-2024 ambulatory Hematology/Oncology Comment on above: (SO)CBC/CMP(S)/CA125 (PORT)/OV TODAY* 6 WK OV(PORT)/LABS E ROSAURA* Start: 03-19-2024 End: 06-18-2024 Cobalamin (Vitamin B12) [Mass/volume] in Serum or Plasma [facility] Comment on above: Expected: 03/19/2024 , Expires: 06/18/2024 Start: 03-19-2024 End: 06-18-2024 Folate [Mass/volume] in Serum or Plasma [facility] Comment on above: Expected: 03/19/2024 , Expires: 06/18/2024 Start: 03-19-2024 End: 06-18-2024 Thyrotropin [Units/volume] in Serum or Plasma [facility] Comment on above: Expected: 03/19/2024 , Expires: 06/18/2024 Start: 02-28-2024 End: 02-28-2024 ambulatory 02/28/2024 8:00 AM [facility] Hematology/Oncology [address] [place] [address] Q3WK CARBO/TAXOL(PORT)/LAB&OV 02/05/AUTH EXP 02/15/24* Hematology/Oncology Comment on above: Q3WK CARBO/TAXOL(POR T)/LAB&OV 02/05/AUTH EXP 02/15/24* Start: 02-27-2024 End: 02-27-2024 ambulatory Hematology/Oncology Comment on above: (SO)CBC/CMP(S)/CA125 (PORT)/OV TODAY* OV(PORT)/LABS EARLY/ CHEMO 02/27* Start: 02-13-2024 End: 02-13-2024 Follow-up encounter 02/13/2024 10:30 AM EDT Visit (SP) Office [facility] [place] Gynecology Oncology [address] [place] [address] Ambar Vilchis MD [address] [address] FOLLOW UP/CT 01/31 [facility] Comment on above: FOLLOW UP/CT 01/31 Start: 02-10-2024 End: 02-10-2024 Follow-up encounter 02/10/2024 3:00 PM EDT Visit (SP) Office [facility] [place] Gynecology Oncology [address] [place] [address] Ambar Vilchis MD [address] [address] FOLLOW UP/CT 01/31 [facility] Comment on above: FOLLOW UP/CT 01/31 Start: 02-07-2024 End: 02-07-2024 ambulatory 02/07/2024 8:30 AM EDT [facility] Hematology/Oncology [address] [place] [address] Q3WK CARBO/TAXOL(PORT)/LAB&OV 02/05/AUTH EXP 02/15/24* Hematology/Oncology Comment on above: Q3WK CARBO/TAXOL(POR T)/LAB&OV 02/05/AUTH EXP 02/15/24* Start: 02-06-2024 End: 02-06-2024 ambulatory Hematology/Oncology Comment on above: (SO)CBC/CMP(S)/CA125 (PORT)/OV TODAY* OV(PORT)/LABS EARLY/ CHEMO 02/06* (SO)CBC(?TX)/CMP(S)/ CA125(PORT)/OV TODAY* Start: 02-01-2024 End: 02-01-2024 Patient encounter procedure Cat Scan Comment on above: Ovarian cancer, bildarryl gironal (HCC) [C56.3] Start: 01-23-2024 End: 01-23-2024 ambulatory 01/23/2024 8:00 AM EDT Infusion Center Hematology/Oncology [address] [place] [address] ?REDRAW LAB/Q3WK CARBO/TAXOL(PORT)/LAB&OV 01/15/AUTH EXP 02/15/24* Hematology/Oncology Comment on above: ?REDRAW LAB/Q3WK CAR JANI/TAXOL(PORT)/LAB&OV 01/15/AUTH EXP 02/15/24* Start: 01-19-2024 End: 01-19-2024 ambulatory 01/19/2024 8:15 AM EDT Infusion Center Hematology/Oncology [address] [place] [address] Wstr, Lab/Port [place] [facility] [address] [place] [address] (SO)CBC(?TX)(PORT)* Hematology/Oncology Comment on above: (SO)CBC(?TX)(PORT)* Start: 01-17-2024 End: 01-17-2024 ambulatory 01/17/2024 8:30 AM EDT Infusion Center Hematology/Oncology [address] [place] [address] Q3WK CARBO/TAXOL(PORT)/LAB&OV 01/15/AUTH EXP 02/15/24* Hematology/Oncology Comment on above: Q3WK CARBO/TAXOL(POR T)/LAB&OV 01/15/AUTH EXP 02/15/24* Start: 01-16-2024 End: 01-16-2024 ambulatory Hematology/Oncology Comment on above: (SO)CBC/CMP(S)/CA125 (PORT)/OV TODAY* OV(PORT)/LABS EARLY/ CHEMO 01/16* Start: 01-11-2024 End: 01-11-2024 ambulatory Hematology/Oncology Comment on above: CBC(?TX) (SO)CBC(?TX) Start: 01-04-2024 End: 01-04-2024 ambulatory 01/04/2024 8:30 AM EDT Infusion Center Hematology/Oncology [address] [place] [address] Wstr, Lab/Port [place] [facility] [address] [place] [address] CBC(?TX) Hematology/Oncology Comment on above: CBC(?TX) Start: 12-28-2023 End: 12-28-2023 ambulatory Hematology/Oncology Comment on above: Q3WK CARBO/TAXOL(POR T)/LAB&OV 12/26/AUTH EXP 02/15/24* RECHECK CBC/Q3WK CAR JANI/TAXOL(PORT)/LAB&OV 12/26/AUTH EXP 02/15/24* Start: 12-27-2023 End: 12-27-2023 ambulatory Hematology/Oncology Comment on above: (SO)CBC/CMP(S)/CA125 (PORT)/OV TODAY* OV(PORT)/LABS EARLY/ CHEMO 12/27* Start: 12-13-2023 End: 12-13-2023 ambulatory 12/13/2023 8:30 AM EDT Infusion Center Hematology/Oncology [address] [place] [address] Q3WK CARBO/TAXOL(PORT)/LAB&OV 12/11/AUTH EXP 02/15/24* Hematology/Oncology Comment on above: Q3WK CARBO/TAXOL(POR T)/LAB&OV 12/11/AUTH EXP 02/15/24* Start: 12-12-2023 End: 12-12-2023 ambulatory Hematology/Oncology Comment on above: (SO)CBC/CMP(S)/CA125 (PORT)/OV TODAY* OV(PORT)/LABS EARLY/ CHEMO 12/12* Start: 12-06-2023 End: 12-06-2023 ambulatory 12/06/2023 10:00 AM EDT Infusion Center Hematology/Oncology [address] [place] [address] Q3WK CARBO/TAXOL(PORT)/LAB&OV 12/04/AUTH EXP 02/15/24* Hematology/Oncology Comment on above: Q3WK CARBO/TAXOL(POR T)/LAB&OV EXP 02/15/24* Start: 12-05-2023 End: 12-05-2023 ambulatory Hematology/Oncology Comment on above: (SO)CBC/CMP(S)/CA125 (PORT)/OV TODAY* OV(PORT)/LABS EARLY/ CHEMO 12/05* Start: 11-04-2023 End: 02-03-2024 CBC panel - Blood by Automated count CBC Lab Routine Thrombocytopenia (HCC) Expected: 11/04/2023 (Approximate), Expires: 02/03/2024 [facility] Work Phone: Comment on above: Expected: 11/04/2023 (Approximate), Expires: 02/03/2024 Start: 10-13-2023 End: 01-12-2024 Cancer Ag 125 [Units/volume] in Serum or Plasma CA 125 BLD Lab Routine Preoperative examination Expected: 10/13/2023, Expires: 01/12/2024 [facility] Work Phone: Comment on above: Expected: 10/13/2023 , Expires: 01/12/2024 Start: 10-13-2023 End: 01-12-2024 CBC W Auto Differential panel - Blood CBC + DIFF Lab Routine Preoperative examination Expected: 10/13/2023, Expires: 01/12/2024 [facility] Work Phone: Comment on above: Expected: 10/13/2023 , Expires: 01/12/2024 Start: 10-13-2023 End: 01-12-2024 Comprehensive metabolic 2000 panel - Serum or Plasma COMP METABOLIC PANEL Lab Routine Preoperative examination Expected: 10/13/2023, Expires: 01/12/2024 [facility] Work Phone: Comment on above: Expected: 10/13/2023 , Expires: 01/12/2024 Start: 10-13-2023 End: 01-12-2024 TYPE AND SCREEN,30 DAY TYPE AND SCREEN,30 DAY Blood Bank Routine Preoperative examination Expected: 10/13/2023, Expires: 01/12/2024 [facility] Work Phone: Comment on above: Expected: 10/13/2023 , Expires: 01/12/2024 Start: 09-14-2023 End: 12-14-2023 MISC SEND OUT TST 1 MISC SEND OUT TST 1 Lab Routine Ovarian cancer on left (HCC) Expected: 09/14/2023, Expires: 12/14/2023 [facility] Work Phone: Comment on above: Expected: 09/14/2023 , Expires: 12/14/2023 Start: 07-25-2023 Advance Directive Discussion Advance Directive Discussion [facility] Start: 07-25-2023 Behavioral Health Screening Behavioral Health Screening [facility] Start: 07-25-2023 Depression Assessment Depression Ass essment [facility] Start: 03-25-2023 Influenza vaccination Influenza Vacc ine (#1) [facility] Start: 03-25-2022 Influenza vaccination INFLUENZA (#1) [facility] Start: 07-25-2021 ADVANCE DIRECTIVE DISCUSSION ADVANCE DIRECTIVE DISCUSSION [facility] Start: 07-25-2021 DEPRESSION ASSESSMENT DEPRESSION ASS ESSMENT [facility] Start: 08-15-2018 Urine microalbumin profile [facility] Start: 12-17-2015 BONE DENSITY BONE DENSITY [facility] Start: 12-17-2015 Screening for osteoporosis Bone Density Screening [facility] Start: 02-11-2012 Colonoscopy COLONOSCOPY [facility] Start: 02-11-2012 COLORECTAL CANCER SCREENING COLORECTAL CANCER SCREENING [facility] Start: 02-11-2012 Screening for malign ant neoplasm of colon [facility] Start: 01-05-2012 Lipid panel Lipid Screening [facility] Start: 01-05-2012 LIPID SCREEN LIPID SCREEN [facility] Start: 02-08-2011 DIABETES SCREEN DIABETES SCREEN [facility] Start: 2010 RSV Vaccine (1 - 1-d ose 60+ series) RSV Vaccine (1 - 1-dose 60+ series) [facility] Start: 2010 RSV Vaccine (1 - Ris k 60-74 years 1-dose series) RSV Vaccine (1 - Risk 60-74 years 1-dose series) [facility] Start: 11-08-2008 Mammography MAMMOGRAM [facility] Start: 11-08-2008 Screening for malign ant neoplasm of breast Mammogram Screening [facility] Start: 12-17-1995 COLOGUARD (FIT-DNA) COLOGUARD (FIT-D NA) [facility] Start: 12-17-[address] COLONOGRAPHY [facility] Start: 12-17-1995 FECAL OCCULT BLOOD FECAL OCCULT BLOO D [facility] Start: 12-17-1995 Screening for malign ant neoplasm of colon [facility] Start: 12-17-1995 SIGMOIDOSCOPY SIGMOIDOSCOPY [facility] Start: 1969 Pneumococcal Vaccine : 50+ (1 of 2 - PCV) Pneumococcal Vaccine: 50+ (1 of 2 - PCV) [facility] Start: 1969 SHINGRIX VACCINE (1 of 2) SHINGRIX VACCINE (1 of 2) [facility] Start: 1968 ANNUAL PCP TEAM AUTHORIZATION REP LANDRY DISEASE VISIT ANNUAL PCP TEAM CHRONIC DISEASE VISIT [facility] Start: 1968 Anxiety Screening Anxiety Screening [facility] Start: 1968 BP CONTROLLED (<130/80) BP CONTROLLE D (<130/80) [facility] Start: 1968 Depression Screening Depression Scre ening [facility] Start: 1968 HEPATITIS C SCREENING HEPATITIS C SC REENING [facility] Start: 1961 Screening for malign ant neoplasm of cervix Cervical Cancer Screening [facility] Start: 1956 Pneumococcal Vaccine : 65+ (1 of 2 - PCV) Pneumococcal Vaccine: 65+ (1 of 2 - PCV) [facility] Start: 1956 PNEUMOCOCCAL: 65+ (1 - PCV) PNEUMOCOCCAL: 65+ (1 - PCV) [facility] Start: 12-17-1955 Covid-19 Vaccine (#1) Covid-19 Vacci ne (#1) [facility] Start: [birth year]18-1951 COVID-19 VACCINE (#1) COVID-19 VACCI NE (#1) [facility] Cancer Ag 125 [Units/volume] in Serum or Plasma CA 125 BLD Lab Routine Ovarian cancer on left (HCC) 09/16/2023 10:08 AM EST [facility] Work Phone: Cancer Ag 125 [Units/volume] in Serum or Plasma CA 125 BLD Lab Routine Ovarian cancer on left (HCC) 12/05/2023 1:34 PM EDT [facility] Work Phone: Cancer Ag 125 [Units/volume] in Serum or Plasma CA 125 BLD Lab Routine Ovarian cancer on left (HCC) 01/16/2024 3:08 PM [employer] Work Phone: Cancer Ag 125 [Units/volume] in Serum or Plasma CA 125 BLD Lab Routine Ovarian cancer on left (HCC) 02/06/2024 3:08 PM [employer] Work Phone: Cancer Ag 125 [Units/volume] in Serum or Plasma CA 125 BLD Lab Routine Ovarian cancer on left (HCC) 03/19/2024 2:59 PM [employer] Work Phone: Cancer Ag 125 [Units/volume] in Serum or Plasma CA 125 BLD Lab Routine Ovarian cancer on left (HCC) 04/05/2024 10:36 AM [employer] Work Phone: Cancer Ag 125 [Units/volume] in Serum or Plasma CA 125 BLD Lab Routine Ovarian cancer on left (HCC) 05/03/2024 11:28 AM [employer] Work Phone: Cancer Ag 125 [Units/volume] in Serum or Plasma CA 125 BLD Lab Routine Ovarian cancer on left (HCC) 05/18/2024 9:57 AM [employer] Work Phone: Cancer Ag 125 [Units/volume] in Serum or Plasma CA 125 BLD Lab Routine Ovarian cancer on left (HCC) 06/01/2024 9:50 AM [employer] Work Phone: Cancer Ag 125 [Units/volume] in Serum or Plasma CA 125 BLD Lab Routine Ovarian cancer on left (HCC) 06/15/2024 10:08 AM [employer] Work Phone: Cancer Ag 125 [Units/volume] in Serum or Plasma CA 125 BLD Lab Routine Ovarian cancer on left (HCC) 07/04/2024 10:20 AM [employer] Work Phone: Cancer Ag 125 [Units/volume] in Serum or Plasma CA 125 BLD Lab Routine Ovarian cancer on left (HCC) 08/03/2024 9:54 AM [employer] Work Phone: Cancer Ag 125 [Units/volume] in Serum or Plasma CA 125 Lab Routine Ovarian cancer, bilateral (HCC) Anemia, unspecified type 08/31/2024 8:49 AM [facility] Work Phone: Cancer Ag 125 [Units/volume] in Serum or Plasma CA 125 Lab Routine Ovarian cancer, bilateral (HCC) Anemia, unspecified type 09/28/2024 8:49 AM [facility] Work Phone: Cancer Ag 125 [Units/volume] in Serum or Plasma CA 125 Lab Routine Ovarian cancer, bilateral (HCC) Anemia, unspecified type 11/02/2024 9:44 AM [facility] Work Phone: Cancer Ag 125 [Units/volume] in Serum or Plasma CA 125 Lab Routine Ovarian cancer, bilateral (HCC) Anemia, unspecified type 11/29/2024 9:33 AM [facility] Work Phone: Cancer Ag 125 [Units/volume] in Serum or Plasma CA 125 Lab Routine Ovarian cancer, bilateral (HCC) Anemia, unspecified type 01/03/2025 9:41 AM [facility] Work Phone: Cancer Ag 125 [Units/volume] in Serum or Plasma CA 125 Lab Routine Ovarian cancer, bilateral (HCC) Anemia, unspecified type 02/08/2025 2:33 PM [facility] Work Phone: Cancer Ag 125 [Units/volume] in Serum or Plasma CA 125 Lab Routine Ovarian cancer, bilateral (HCC) Anemia, unspecified type 02/22/2025 9:16 AM [facility] Work Phone: End: 03-15-2026 Cancer Ag 125 [Units/volume] in Serum or Plasma CA 125 Lab Routine Ovarian cancer on left (HCC) 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) Once per month for 12 Occurrences starting 03/15/2025 until 03/15/2026 [facility] Comment on above: Once per month for 1 2 Occurrences starting 03/15/2025 until 03/15/2026 CARIS NM TUMOR SEEK HYBRID CARIS NM TUMOR SEEK HYBRID Lab Routine Ovarian cancer on left (HCC) 02/12/2024 1:33 PM [facility] Work Phone: CBC W Auto Different ial panel - Blood COMPLETE BLOOD COUNT AND DIFFERENTIAL Lab STAT Ovarian cancer on left (HCC) Ovarian cancer, bilateral (HCC) Anemia due to antineoplastic chemotherapy Thrombocytopenia (HCC) 01/04/2024 8:21 AM [facility] Work Phone: CBC W Auto Different ial panel - Blood COMPLETE BLOOD COUNT AND DIFFERENTIAL Lab STAT Ovarian cancer on left (HCC) Ovarian cancer, bilateral (HCC) Anemia due to antineoplastic chemotherapy Thrombocytopenia (HCC) 01/11/2024 8:02 AM [facility] Work Phone: End: 03-05-2026 CBC W Auto Differential panel - Blood COMPLETE BLOOD COUNT AND DIFFERENTIAL Lab STAT Ovarian cancer on left (HCC) Anemia, unspecified type Once per month for 12 Occurrences starting 03/06/2025 until 03/05/2026 [facility] Work Phone: Comment on above: Once per month for 1 2 Occurrences starting 03/06/2025 until 03/05/2026 End: 03-15-2026 Comprehensive metabolic 2000 panel - Serum or Plasma COMPREHENSIVE METABOLIC PANEL Lab Routine Ovarian cancer on left (HCC) 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) Once per month for 12 Occurrences starting 03/15/2025 until 03/15/2026 [facility] Comment on above: Once per month for 1 2 Occurrences starting 03/15/2025 until 03/15/2026 COPPER BLOOD COPPER BLOOD Lab Routine Anemia, unspecified type 03/21/2024 10:33 AM [facility] Work Phone: End: 10-14-2024 CT Abdomen and Pelvis W contrast IV CT ABD/PEL W IVCON Radiology Routine Ovarian cancer on left (HCC) 1 Occurrences starting 09/16/2023 until 10/14/2024 [facility] Work Phone: Comment on above: 1 Occurrences starti ng 09/16/2023 until 10/14/2024 CT Abdomen and Pelvi s W contrast IV CT ABD/PEL W IVCON Radiology Routine Ovarian cancer on left (HCC) 10/04/2023 10:58 AM [facility] Work Phone: End: 02-14-2025 CT Abdomen and Pelvis W contrast IV CT ABD/PEL W IVCON Radiology Routine Ovarian cancer, bilateral (HCC) 1 Occurrences starting 01/16/2024 until 02/14/2025 [facility] Comment on above: 1 Occurrences starti ng 01/16/2024 until 02/14/2025 CT Abdomen and Pelvi s W contrast IV CT ABD/PEL W IVCON Radiology Routine Ovarian cancer, bilateral (HCC) 02/01/2024 9:45 AM [facility] End: 03-27-2026 CT Abdomen and Pelvis W contrast IV CT ABD/PEL W IVCON Radiology Routine Ovarian cancer, bilateral (HCC) 1 Occurrences starting 02/25/2025 until 03/27/2026 [facility] Work Phone: Comment on above: 1 Occurrences starti ng 02/25/2025 until 03/27/2026 CT Abdomen and Pelvi s W contrast IV CT ABD/PEL W IVCON Radiology Routine Ovarian cancer, bilateral (HCC) 03/05/2025 11:23 AM [facility] Work Phone: End: 10-15-2024 CT Chest W contrast IV CT CHEST W IVCON Radiology Routine Ovarian cancer on left (HCC) 1 Occurrences starting 09/16/2023 until 10/15/2024 [facility] Work Phone: Comment on above: 1 Occurrences starti ng 09/16/2023 until 10/15/2024 CT Chest W contrast IV CT CHEST W IVCON Radiology Routine Ovarian cancer on left (HCC) 10/04/2023 10:58 AM T [facility] Work Phone: End: 02-14-2025 CT Chest W contrast IV CT CHEST W IVCON Radiology Routine Ovarian cancer, bilateral (HCC) 1 Occurrences starting 01/16/2024 until 02/14/2025 [facility] Work Phone: Comment on above: 1 Occurrences starti ng 01/16/2024 until 02/14/2025 CT Chest W contrast IV CT CHEST W IVCON Radiology Routine Ovarian cancer, bilateral (HCC) 02/01/2024 9:45 AM [facility] Work Phone: End: 03-27-2026 CT Chest W contrast IV CT CHEST W IVCON Radiology Routine Ovarian cancer, bilateral (HCC) 1 Occurrences starting 02/25/2025 until 03/27/2026 [facility] Comment on above: 1 Occurrences starti ng 02/25/2025 until 03/27/2026 CT Chest W contrast IV CT CHEST W IVCON Radiology Routine Ovarian cancer, bilateral (HCC) 03/05/2025 11:23 AM EDT [facility] Ferritin [Mass/volum e] in Serum or Plasma FERRITIN Lab Routine Anemia, unspecified type 03/21/2024 10:33 AM T [facility] Ferritin [Mass/volum e] in Serum or Plasma FERRITIN Lab Routine Microcytic anemia 03/08/2025 10:17 AM T [facility] Folate [Mass/volume] in Serum or Plasma FOLATE, SERUM Lab Routine Anemia, unspecified type 02/20/2025 9:27 AM [facility] Work Phone: H&P for surgery H&P FOR SURGERY Procedures Routine Attention to colostomy (HCC) Ordered: 08/10/2024 [facility] Work Phone: Comment on above: Ordered: 08/10/2024 Iron and Iron bindin g capacity panel - Serum or Plasma IRON AND TIBC Lab Routine Anemia, unspecified type 03/21/2024 10:33 AM [facility] Iron and Iron bindin g capacity panel - Serum or Plasma IRON AND TIBC Lab Routine Microcytic anemia 03/08/2025 10:17 AM [facility] Work Phone: End: 03-15-2026 Magnesium [Mass/volume] in Serum or Plasma MAGNESIUM Lab Routine Ovarian cancer on left (HCC) 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) Once per month for 12 Occurrences starting 03/15/2025 until 03/15/2026 [facility] Comment on above: Once per month for 1 2 Occurrences starting 03/15/2025 until 03/15/2026 MISC SEND OUT TST 1 MISC SEND OU T TST 1 Lab Routine Ovarian cancer on left (HCC) 09/16/2023 10:08 AM [facility] Work Phone: Patient Education ED Abdominal P ain Unkn Cause Fem [facility] Work Phone: Patient referral [facility] Work Phone: REFERRAL FOR ADDITIO NAL BIOMARKER AND MOLECULAR TESTING REFERRAL FOR ADDITIONAL BIOMARKER AND MOLECULAR TESTING Lab Routine Ovarian cancer, bilateral (HCC) 03/16/2025 9:14 PM EDT [facility] Work Phone: End: 09-09-2025 RF Colon Views W barium contrast [place] XR COLON SINGLE CONTRAST Radiology Routine Attention to colostomy (HCC) 1 Occurrences starting 08/10/2024 until 09/09/2025 [facility] Work Phone: Comment on above: 1 Occurrences starti ng 08/10/2024 until 09/09/2025 End: 08-15-2024 RF Colon Views W barium contrast [place] [facility] Work Phone: Comment on above: 1 Occurrences starti ng 08/15/2024 until 08/15/2024 End: 03-15-2026 UA DIP B/O UA DIP B/O Lab Routine Ovarian cancer on left (HCC) 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) Once per month for 12 Occurrences starting 03/15/2025 until 03/15/2026 [facility] Work Phone: Comment on above: Once per month for 1 2 Occurrences starting 03/15/2025 until 03/15/2026 US Pelvis [facility] Pelvis transvaginal [facility] [place] [facility] Immunizations Immunization Date Immunization Notes Care Provider Joanie guerin 06-07-2024 respiratory syncytia l virus (RSV) vaccine, unspecified formulation Lab[facility] Work Phone: [facility] [facility] 05-22-2024 COVID-19 vaccine, ag e 12+ yr, bivalent ([email or web address]) Estuardo Long RN [facility] 05-15-2024 influenza, high dose seasonal, preservative-free Mayte Gonzalez PERL DEVELOPER.AIRPLANE PATROL PILOT Work Phone: [facility] 05-15-2024 influenza virus vaccine, unspecified formulation Mayte Gonzalez PERL DEVELOPER.AIRPLANE PATROL PILOT Work Phone: [facility] 11-22-2019 zoster vaccine recombinant Jaren Tanneri DO Work Phone: [facility] 06-14-2019 zoster vaccine recombinant Jaren Tanneri DO Work Phone: [facility] 05-04-2019 influenza, high dose seasonal, preservative-free Jaren Mccoy DO Work Phone: [facility] 05-04-2019 influenza virus vaccine, unspecified formulation Jaren Mccoy DO Work Phone: [facility] 08-15-2008 tetanus toxoid, reduced diphtheria toxoid, and acellular pertussis vaccine, adsorbed Mark Kruse II, OD Work Phone: [facility] Work Phone: Payers Date Payer Category Payer Medicare (Managed Care) OBEY PERSON PPO [id number] 2024 Private Health Insurance EYE [employer] E PLAN OF [place] [id number] [place] [address] [id number] 07-25-2024 Unknown ANTHEM BLUE CROS S AND BLUE SHIELD ANTHEM MEDICARE ADVANTAGE PPO [id number] 07/25/2024-[facility] [phone] [address] [place] [address] PPO [id number] 07-25-2024 Medicare [id number] 07-20-2023 Self-pay [id number] 07-25-2019 Medicare [id number] 07-25-2019 Unknown [id number] 07-03-2016 Medicare [id number] 1950 Unknown [id number] Unknown [id number] Unknown [id number] Social History Date Type Detail Facility Start: 03-03-2016 End: 07-10-2023 Tobacco smoking status MIIS Unknown if ever smoked [facility] Start: 1950 Sex Assigned At Female [facility] Start: 06-20-2018 End: 08-27-2024 Tobacco smoking status NHIS Ex-smoker [facility] Start: 07-25-1972 End: 07-25-1974 History of tobacco use Current smoker [facility] Start: 07-25-1972 End: 07-25-1974 History of tobacco use Cigarette Smoker [facility] Start: 06-20-2018 End: 08-27-2024 Tobacco use and exposure Smokeless tobacco non-user [facility] Start: 07-06-2022 End: 03-19-2024 Alcohol intake Current drinker of alcohol (finding) [facility] Start: 07-06-2022 End: 07-10-2023 Alcohol intake [facility] Work Phone: Start: 1950 Sex Assigned At Not on file [facility] Start: 07-10-2023 End: 08-04-2023 Tobacco use panel [facility] Work Phone: Start: 06-25-2012 How hard is it for y ou to pay for the very basics like food, housing, medical care, and heating Not hard at all [facility] Work Phone: (I/We) worried amina er (my/our) food would run out before (I/we) got money to buy more. Never true [facility] Work Phone: In the past 12 month s, was there a time when you were not able to pay the mortgage or rent on time? No [facility] Work Phone: Start: 07-27-2023 Tobacco Comment Pt smoked an o cc cigarette for 2 approx years [facility] Start: 08-01-2023 Gender identity Identifies as female gender (finding) [facility] Start: 08-01-2023 Sexual orientation Heterosexual (fin marianna) [facility] Start: 04-19-2024 End: 03-15-2025 Alcoholic beverage intake Ex-drinker (finding) [facility] Start: 08-27-2024 Tobacco Comment Pt smoked an o cc cigarette for 1 approx years [facility] Medical Equipment Procedure Code Equipment Code Equipment Origin al Text Equipment Identifier Dates Cath [facility] Sl im Port 8fr - [id number] Start: 08-04-2023 Colostomy suppli es: - 1 box Coloplast Assura one piece drainable pouch # [id number] OR - 2 boxes Coloplast Clay wafer flat red #[id number] - 1 box Coloplast Wooster drainable pouch red # 61684 - 1 box Small barrier rings # 7805 - 1 tube stomahesive paste # 2650 - 1 bottle stomahesive powder # 63703 - 1 box Coloplast Elastic Barrier strips # [id number] - 1 box skin barrier prep wipes - 1 box adhesive removal wipes Start: 07-19-2023 End: 10-07-2023 Comment on above: Colostomy supplies: - 1 box Coloplast Assura one piece drainable pouch # [id number] OR - 2 boxes Coloplast Clay wafer flat red #26112 - 1 box Coloplast Clay drainable pouch red # 88693 - 1 box Small barrier rings # 7805 - 1 tube stomahesive paste # 2650 - 1 bottle stomahesive powder # 78456 - 1 box Coloplast Elastic Barrier strips # [id number] - 1 box skin barrier prep wipes - 1 box adhesive removal wipes Functional Status Date Assessment Result Facility 09-06-2024 Are you deaf, or do you have serious difficulty hearing No 09/06/2024 10:07 AM Gage Frankel, MARIA C No [facility] 09-06-2024 Are you blind, or do you have serious difficulty seeing, even when wearing glasses No 09/06/2024 10:07 AM Gage Frankel, MARIA C No [facility] 09-06-2024 Do you have serious difficulty walking or climbing stairs No 09/06/2024 10:07 AM Gage Frankel, MARIA C No [facility] 09-06-2024 Do you have difficul ty dressing or bathing No 09/06/2024 10:07 AM Gage Frankel, MARIA C No [facility] 09-06-2024 Because of a physica l, mental, or emotional condition, do you have difficulty doing errands alone such as visiting a physician's office or shopping No 09/06/2024 10:07 AM Gage Frankel, MARIA C No [facility] 04-26-2024 Are you deaf, or do you have serious difficulty hearing No 04/26/2024 2:14 PM Soo Lazo, MARIA C No [facility] 04-26-2024 Are you blind, or do you have serious difficulty seeing, even when wearing glasses No 04/26/2024 2:14 PM Soo Lazo, MARIA C No [facility] 04-26-2024 Do you have serious difficulty walking or climbing stairs No 04/26/2024 2:14 PM EDT Soo Michaels, MARIA C No [facility] 04-26-2024 Do you have difficul ty dressing or bathing No 04/26/2024 2:14 PM EDT Soo Michaels, MARIA C No [facility] 04-26-2024 Because of a physica l, mental, or emotional condition, do you have difficulty doing errands alone such as visiting a physician's office or shopping No 04/26/2024 2:14 PM EDT Soo Michaels, MARIA C No [facility] Mental Status Date Assessment Result Facility 09-06-2024 Because of a physica l, mental, or emotional condition, do you have serious difficulty concentrating, remembering, or making decisions No 09/06/2024 10:07 AM Gage Frankel RN No [facility] 04-26-2024 Because of a physica l, mental, or emotional condition, do you have serious difficulty concentrating, remembering, or making decisions No 04/26/2024 2:14 PM EDT Soo Michaels RN No [facility] Clinical Notes 07-06-2022 to 05-04-2025 Telephone Encounter - Roselyn Pittman LPN - 04/03/2025 12:51 PM EDTTelephone Encounter - Jaren Mccoy DO - 04/03/2025 11:49 AM EDTTelephone Encounter - Roselyn Pittman LPN - 04/03/2025 12:51 PM EDT Note Date & Type Note Facility 05-04-2025 Note SARS-COV-2 (AGENT OF COVID-19) RNA: Not detected INFLUENZA A RNA: Not detected INFLUENZA B RNA: Not detected RESPIRATORY SYNCYTIAL VIRUS (RSV) RNA: Not detected [facility] Comment on above: Performed By: #### 9 [id number] ####[facility]ATORYCLIA [id number] [place] [address] [place] 05-01-2025 Note [facility] 04-29-2025 Note [facility] 04-24-2025 Note [facility] 04-17-2025 Note [facility] 09-10-2025 Miscellaneous Notes patient notified. Added labs to apt note. Pended. Roselyn Pittman LPN Her hemoglobin is stable. Check reticulocyte count, TSH, CRP and copper level when she is here for treatment next week. documented in this encounter [facility] 04-03-2025 Telephone encounter Note patient notified. Added labs to apt note. Pended. Roselyn Pittman LPN [facility] 04-03-2025 Telephone encounter Note Her hemoglobin is stable. Check reticulocyte count, TSH, CRP and copper level when she is here for treatment next week. [facility] 03-21-2025 Telephone encounter Note Called patient. Discussed instructions for use and patient was given Dr. Mccoy's response, stated understanding. Joy Bolaños RN [facility] 03-21-2025 Miscellaneous Notes Called patient. Discussed [...] out Aloxi for Zofran? Thank you. Joy Bolaños, RN documented in this encounter [facility] 03-20-2025 Telephone encounter Note Keep Aloxi and use Compazine for 72 hours postchemotherapy. Rx for Compazine and Emla sent. [facility] 03-20-2025 Telephone encounter Note SOCIAL WORK FOLLOW UP NOTE: [facility] Date of service: March 20, 2025 Amirah Valadez Ciceloiselalit is being seen for a follow up social work visit. Today's visit includes: patient TOPICS ADDRESSED: Pt referred to SW following chemo education. Pt is an established oncology pt beginning a new treatment. Pt declines any new needs requiring SW intervention. Pt did inquire about Advanced Directives reporting she is receiving alerts in [place] that she needs to complete them. No other needs identified at this time. Advance Care Planning Goals of Care In this encounter: Advanced Directives already on file. Patient denies needing updates at this time. PLAN: Continue follow up as needed F/U APPOINTMENT: PRN Assigned SW listed in Care Team tab: Yes JUAN Solitario [facility] 03-20-2025 Miscellaneous Notes SOCIAL WORK FOLLOW UP NOTE: [facility] Date of service: March 20, 2025 Amirah Reed is being seen for a follow up social work visit. Today's visit includes: patient TOPICS ADDRESSED: Pt referred to SW following chemo education. Pt is an established oncology pt beginning a new treatment. Pt declines any new needs requiring SW intervention. Pt did inquire about Advanced Directives reporting she is receiving alerts in [place] that she needs to complete them. No other needs identified at this time. Advance Care Planning Goals of Care In this encounter: Advanced Directives already on file. Patient denies needing updates at this time. PLAN: Continue follow up as needed F/U APPOINTMENT: PRN Assigned SW listed in Care Team tab: Yes OSCAR Solitario-S documented in this encounter [facility] 03-20-2025 Note [facility] 03-20-2025 History of Present illness Narrative [...] Joy Bolaños RN documented in this encounter [facility] 03-20-2025 Telephone encounter Note Patient needs a refill on emla cream. Pended. Patient will be receiving Aloxi as a pre-med for D1. Patient has Zofran to take for nausea. Do we want to give her Compazine for the first 3 days or swap out Aloxi for Zofran? Thank you. Joy Bolaños RN [facility] 03-15-2025 Miscellaneous Notes 2 cycles entered Start email sent Schedule treatment (orders in beacon) about a week after next lab apt. Can be a straight back. Day 1 CBC CMP MG CA125 (for day 1 of every cycle) B/O urine dip every ezekiel Day 8 CBC OV with next cycle Chemo ed scheduled 03/20 Dorothea Buckley documented in this encounter [facility] 03-15-2025 Telephone encounter Note 2 cycles entered Start email sent [facility] Work Phone: 03-15-2025 Telephone encounter Note Met with patient and introduced myself. Patient was given a folder with chemocare information, office contact information, and additional chemotherapy resource handouts. Patient aware this nurse will review on scheduled appointment date. Joy Bolaños RN [facility] 03-15-2025 Miscellaneous Notes Met with patient and introduced myself. Patient was given a folder with chemocare information, office contact information, and additional chemotherapy resource handouts. Patient aware this nurse will review on scheduled appointment date. Joy Bolaños RN documented in this encounter [facility] 03-15-2025 Telephone encounter Note Schedule treatment (orders in beacon) about a week after next lab apt. Can be a straight back. 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 HPI: The patient is a 74-year-old female with a past medical history significant for hypertension and rheumatoid arthritis. Presented to the ED at [facility] on 07/10/2023 with complaints of nausea [...] represent metastatic disease. She was transferred to [facility] for gynecologic oncology surgery. Underwent diagnostic laparoscopy [...] within the recent abdominal fluid cytology specimen, [id number]. Confirmatory immunohistochemistry was performed on the cytology [...] reviewed and edited and updated as necessary. Jaren Mccoy DO documented in this encounter [facility] 03-15-2025 Note [facility] 03-13-2025 Telephone encounter Note Spoke with patient and scheduled 03/15 @ 10:00 Pham Isaac [facility] 03-13-2025 Miscellaneous Notes Spoke with patient and scheduled 03/15 @ 10:00 Pham Isaac Spoke with pt. Informed of ct results. PSS please contact pt. To get scheduled for appt. To discuss treatment plan. Pt. Voiced understanding. Kelsy Storm LPN' CT scan unfortunately shows cancer is recurring. Need to see her for office visit to discuss treatment plan. Jaren Mccoy DO documented in this encounter [facility] 03-13-2025 Telephone encounter Note Spoke with pt. Informed of ct results. PSS please contact pt. To get scheduled for appt. To discuss treatment plan. Pt. Voiced understanding. Kelsy Storm LPN' [facility] 03-13-[address] scan unfortunately shows cancer is recurring. Need to see her for office visit to discuss treatment plan. Jaren Mccoy DO [facility] 03-11-2025 Telephone encounter Note Spoke with pt. Informed her anemia is from her Lynparza, instructed to decrease to 200 mg once daily, recheck CBC poss. Transfusion in 1 week. PSS please put on lab port amira. 8/25 @ 11:30 CBC/poss tx . Pt. Is Aware of date and time Kelsy Storm LPN [facility] 03-11-2025 Miscellaneous Notes Spoke with pt. Informed her anemia is from her Lynparza, instructed to decrease to 200 mg once daily, recheck CBC poss. Transfusion in 1 week. PSS please put on lab port amira. 8/25 @ 11:30 CBC/poss tx . Pt. Is Aware of date and time Kelsy Strom LPN Her iron levels are okay. Anemia is from Lynparza. Decrease to 200 mg once daily. Recheck CBC/poss transfusion in a week. Jaren Mccoy DO Scheduled lab studies 03/08 Port Schedule Pt aware. Please make a 10am lab apt for her 03/08/25 for iron studies. Roselyn Pittman LPN I would like her to have repeat iron studies. Orders filed. She is more anemic than previously. Jaren Mccoy DO documented in this encounter [facility] 03-10-2025 Telephone encounter Note Her iron levels are okay. Anemia is from Lynparza. Decrease to 200 mg once daily. Recheck CBC/poss transfusion in a week. Jaren Mccoy DO [facility] 03-08-2025 Note [facility] 03-08-2025 History of Present illness Narrative Patient is here for IVAD port flush/blood draw per [facility] [place] protocol. IVAD is located in right upper [...] tolerated procedure well. documented in this encounter [facility] 03-07-2025 Telephone encounter Note Scheduled lab studies 03/08 Port Schedule [facility] 03-07-2025 Telephone encounter Note Pt aware. Please make a 10am lab apt for her 03/08/25 for iron studies. Roselyn Pittman LPN [facility] 03-07-2025 Telephone encounter Note I would like her to have repeat iron studies. Orders filed. She is more anemic than previously. Jaren Mccoy DO [facility] 03-07-2025 Note [facility] 03-07-2025 History of Present illness Narrative Patient is here for IVAD port flush/blood draw per [facility] [place] protocol. IVAD is located in right upper [...] tolerated procedure well. documented in this encounter [facility] 03-05-2025 History of Present illness Narrative Radiology Service Progress Note PATIENT NAME: Amirah Reed DATE OF SERVICE: March 05, 2025 [...] PATIENT PRESENTS WITH AN IMPLANTABLE OR ATTACHED HAMMERER HELPER: No RADIOLOGY DEPARTMENT: CT; Exam(s) Completed: Chest Abdomen Pelvis PERIPHERAL IV DATA: power port accessed by [employer] SIGNED BY: RT Lexx(R) March 05, 2025 1:49 PM documented in this encounter [facility] 03-05-2025 Note [facility] 02-27-2025 Note HNO ID: [id number] Author: MAYTE GONZALEZ APRN.AIRPLANE PATROL PILOT Service: ? Author Type: Nurse Practitioner Type: Progress Notes Filed: 02/27/2025 13:45 Note Text: Gynecologic Oncology Note [facility] Chief complaint: Ovarian cancer surveillance HPI: This [...] discussed with the Patient or Patient's Authorized Personnel Officer. As applicable, any other physician, advance practice provider, medical student, or other health professional student that will be observing or involved in the sensitive examination for educational or training purposes was discussed with the Patient or Authorized Personnel Officer. The Patient or Authorized Personnel Officer has agreed to proceed with the sensitive [...] but has not tested yet Mayte Gonzalez APRN.AIRPLANE PATROL PILOT Some elements copied from previous notes , including the physical exam completed in entirety today, have been updated where appropriate. All reflect current medical decision making from today, Medical Decision Making: Problems: Moderate: 1+ chronic illnesses with change Data: Unique source(s) for external note(s) reviewed: 3+ Unique test result(s) reviewed: 3+ Medical Decision Making Level: 4 - Moderate [facility] 02-25-2025 Telephone encounter Note Spoke with patient and scheduled Pham Isaac [facility] 02-25-2025 Miscellaneous Notes Spoke with patient [...] CT) when able. Please pend CT orders. Jaren Mccoy DO documented in this encounter [facility] 02-25-2025 Telephone encounter Note Thank you. Orders filed. [facility] 02-25-2025 Telephone encounter Note Spoke with pt. Informed her CA125 is mildly elevated. Recommend CT C/A/P with contrast (1 hour hydration pre or post CT) when able. Pt. Voiced understanding. PSS please reach out to pt. To get ct scans and hydration scheduled. Dr. Mccoy please sign orders Kelsy Storm LPN [facility] 02-23-2025 Telephone encounter Note Her CA125 is mildly elevated. Recommend CT C/A/P with contrast (1 hour hydration pre or post CT) when able. Please pend CT orders. Jaren Mccoy DO [facility] 02-15-2025 History of Present illness Narrative [...] been reviewed prior to dispensing the medication. C 13 Catapult Operator Assessment Patient confirmed: Yes Med/dose confirmed: Yes Supplies needed: No supplies needed Missed doses: No Estimated days supply on hand: 10 Copay amount: 0 Payment confirmed: Yes Delivery method: FedEx Signature required: No Delivery address: [address] [place] [id number] Delivery date: 02/21/25 Questions or concerns for [...] facility-administered medications on file prior to visit. [facility]TY CLINICAL ASSESSMENT - HEMATOLOGY ONCOLOGY [...] and vomiting - Avoid grapefruit, grapefruit juice, [place] oranges, or [place] orange juice Warnings: - Hypersensitivity - Pulmonary [...] toxicity Loretta Chao documented in this encounter [facility] 02-15-2025 Note [facility] 02-15-2025 Note [facility] 02-15-2025 Telephone encounter Note Lab/port added to treatment appointment [facility] Work Phone: 02-15-2025 Miscellaneous Notes Lab/port added to treatment appointment pss please schedule lab prior to infusion on 02/20. I will notify pt. Roselyn Pittman LPN CA-125 increased some. Please recheck when here for iron sucrose on 02/20. Jaren Mccoy DO documented in this encounter [facility] 02-15-2025 Telephone encounter Note pss please schedule lab prior to infusion on 02/20. I will notify pt. Roselyn Pittman LPN [facility] 02-15-2025 Telephone encounter Note CA-125 increased some. Please recheck when here for iron sucrose on 02/20. 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 HPI: The patient is a 74-year-old female with a past medical history significant for hypertension and rheumatoid arthritis. Presented to the ED at [facility] on 07/10/2023 with complaints of nausea [...] represent metastatic disease. She was transferred to [facility] for gynecologic oncology surgery. Underwent diagnostic laparoscopy [...] within the recent abdominal fluid cytology specimen, [id number]. Confirmatory immunohistochemistry was performed on the cytology [...] paclitaxel very well overall. -Multi-Cancer panel through [employer] was positive for a pathogenic variant in [...] reviewed and edited and updated as necessary. Jaren Mccoy DO documented in this encounter [facility] 01-18-2025 History of Present illness Narrative [facility] Refill Assessment Medication(s): Rony Patient's current medication list and adherence status [...] been reviewed prior to dispensing the medication. C 13 Catapult Operator Assessment Patient confirmed: Yes Med/dose confirmed: Yes Supplies needed: No supplies needed Missed doses: No Estimated days supply on hand: 8 Copay amount: 0 Payment confirmed: Yes Delivery method: FedEx Signature required: No Delivery address: [address] [place] [id number] Delivery date: 01/22/25 Questions or concerns for [...] facility-administered medications on file prior to visit. [facility] RX SPECIALTY CLINICAL ASSESSMENT - HEMATOLOGY ONCOLOGY [...] and vomiting - Avoid grapefruit, grapefruit juice, [place] oranges, or [place] orange juice Warnings: - Hypersensitivity - Pulmonary [...] toxicity Jesenia Whiting documented in this encounter [facility] 01-18-2025 Note [facility] 12-18-2024 History of Present illness Narrative [...] been reviewed prior to dispensing the medication. C 13 Catapult Operator Assessment Patient confirmed: Yes Med/dose confirmed: Yes Supplies needed: No supplies needed Missed doses: No Estimated days supply on hand: 10 Copay amount: 0 Payment confirmed: Yes Delivery method: FedEx Signature required: No Delivery address: [address] [place] [address] Delivery date: 12/20/24 Questions or concerns for [...] facility-administered medications on file prior to visit. [facility] RX SPECIALTY CLINICAL ASSESSMENT - HEMATOLOGY ONCOLOGY [...] and vomiting - Avoid grapefruit, grapefruit juice, Lincoln oranges, or Lincoln orange juice Warnings: - Hypersensitivity - Pulmonary [...] toxicity Loretta Chao documented in this encounter [facility] 12-18-2024 Note [facility] 11-30-2024 Note HNO ID: [id number] Author: AMBAR VILCHIS MD Service: ? Author Type: Physician Type: Progress Notes Filed: 11/30/2024 13:56 Note Text: Gynecologic Oncology Note [facility] Chief complaint: Ovarian cancer surveillance HPI: This [...] discussed with the Patient or Patient's Authorized Personnel Officer. As applicable, any other physician, advance practice provider, medical student, or other health professional student that will be observing or involved in the sensitive examination for educational or training purposes was discussed with the Patient or Authorized Personnel Officer. The Patient or Authorized Personnel Officer has agreed to proceed with the sensitive [...] Son aware but has not tested yet Ambar Vilchis MD, MPH Gynecologic Oncologist Medical Decision Making: Problems: Moderate: 2+ stable chronic illnesses Data: Unique test result(s) reviewed: 1 Risk: Low: Low risk from testing/treatment Medical Decision Making Level: 3 - Low [facility] 11-30-2024 History of Present illness Narrative Gynecologic Oncology Note [facility] Chief complaint: Ovarian cancer surveillance HPI: This [...] discussed with the Patient or Patient's Authorized Personnel Officer. As applicable, any other physician, advance practice provider, medical student, or other health professional student that will be observing or involved in the sensitive examination for educational or training purposes was discussed with the Patient or Authorized Personnel Officer. The Patient or Authorized Personnel Officer has agreed to proceed with the sensitive [...] Son aware but has not tested yet Ambar Vilchis MD, MPH Gynecologic Oncologist Medical Decision Making: Problems: Moderate: 2+ stable chronic illnesses Data: Unique test result(s) reviewed: 1 Risk: Low: Low risk from testing/treatment Medical Decision Making Level: 3 - Low documented in this encounter [facility] 11-19-2024 Note [facility] 11-05-2024 Telephone encounter Note A copy of this note was faxed to [facility]. Victorina Rebolledo LPN [facility] 11-05-2024 Miscellaneous Notes A copy of this note was faxed to [facility]. Victorina Rebolledo LPN Attempted to contact [facility], they are closed on Tuesday and there is no fax number online. Will call on Tuesday. [phone]. Victorina Rebolledo LPN Please notify Dr. Kirkpatrick at [facility] that pt. may have her teeth cleaned. Thank you. Brandy Ramirez APRN.AIRPLANE PATROL PILOT documented in this encounter [facility] 11-02-2024 Telephone encounter Note Attempted to contact [facility], they are closed on Tuesday and there is no fax number online. Will call on Tuesday. [phone]. Victorina Rebolledo LPN [facility] 11-02-2024 Telephone encounter Note Please notify Dr. Kirkpatrick at [facility] that pt. may have her teeth cleaned. Thank you. Brandy Ramirez APRN.AIRPLANE PATROL PILOT T [facility] Work Phone: 11-02-2024 Note [facility] 11-02-2024 History of Present illness Narrative Chief Complaint Patient presents with: Established Patient HPI: Amirah Reed is a 73 year old female who presents here today for follow up ovarian cancer. Per Dr. Mccoy's previous note: H/o hypertension and rheumatoid arthritis. Presented to the ED at [facility] on 07/10/2023 with complaints of nausea [...] represent metastatic disease. She was transferred to [facility] for gynecologic oncology surgery. Underwent diagnostic laparoscopy [...] within the recent abdominal fluid cytology specimen, [id number]. Confirmatory immunohistochemistry was performed on the cytology [...] suspicious rashes or lesions LABS: Latest Ref Rn 08/31/2024 09/06/2024 11/02/2024 WBC 3.70 - 11.00 [...] - 4.00 k/uL 0.61 (L) 0.84 (L) Dillingham% % 10.9 7.6 Abs Dillingham <0.87 k/uL 0.43 0.34 Eosin% % 3.3 [...] paclitaxel very well overall. -Multi-Cancer panel through [employer] was positive for a pathogenic variant in [...] and edited as necessary for today's visit. Brandy Ramirez APRN.SYLVIE documented in this encounter [facility] 10-23-2024 Telephone encounter Note LULU EPIC ANESTHESIA ANALYST ONE MONTH FOLLOW UP PHONE CALL PHONE [...] RN DATE: 10/23/2024 TIME: 11:03 AM CONTACT #:[phone] [facility] 10-23-2024 Miscellaneous Notes LULU EPIC ANESTHESIA ANALYST ONE MONTH FOLLOW UP PHONE CALL PHONE [...] RN DATE: 10/23/2024 TIME: 11:03 AM CONTACT #:[phone] documented in this encounter [facility] 10-22-2024 History of Present illness Narrative [...] been reviewed prior to dispensing the medication. Le Piña PharmD, BCOP Clinical Pharmacist, Oncology [facility] P: , F: Pool: P [facility] Pool #: [id number] C 13 Catapult Operator Assessment Patient confirmed: Yes Med/dose confirmed: Yes Supplies needed: No supplies needed Missed doses: No Estimated days supply on hand: 6 Copay amount: 0 Payment confirmed: Yes Delivery method: FedEx Signature required: No Delivery address: [address] [place] [address] Delivery date: 10/24/24 Questions or concerns for [...] facility-administered medications on file prior to visit. [facility] RX SPECIALTY CLINICAL ASSESSMENT - HEMATOLOGY ONCOLOGY [...] and vomiting - Avoid grapefruit, grapefruit juice, [place] oranges, or [place] orange juice Warnings: - Hypersensitivity - Pulmonary [...] toxicity Loretta Chao documented in this encounter [facility] 10-22-2024 Note [facility] 10-17-2024 Instructions Mark Kruse II, OD [...] by others. I have seen and examined Amirah Reed. I have discussed the case and the management of this patient's care with the Resident/Fellow, if applicable. I also have reviewed and agree with the assessment and plan as stated above and agree with all of its relevant components. documented in this encounter [facility] 10-17-2024 Note [facility] 10-17-2024 History of Present illness Narrative [...] by others. I have seen and examined Amirah Reed. I have discussed the case and the management of this patient's care with the Resident/Fellow, if applicable. I also have reviewed and agree with the assessment and plan as stated above and agree with all of its relevant components. documented in this encounter [facility] 10-17-2024 Note Date of Procedure 10/17/2024. C 13 Catapult Operator Information Coarse Wire Drawer: rubano. Start time: 10:07 AM. Quality Right Eye Poor. Left Eye Good. NFL Interpretation Right Eye Superior loss. Left Eye Superior loss. Ganglion Cell Layer Thickness Right Eye Diffuse loss. Left Eye Diffuse loss. Interval Change Right Eye Stable. Left Eye Stable. Notes Monitor [facility] 09-17-2024 Note [facility] 09-06-2024 Note HNO ID: [id number] Author: NUBIA JONES RN Service: Care Management Author Type: [...] transportation. No transitional/discharge planning needs identified. SIGNATURE: Nubia Jones RN PATIENT NAME: Amirah Reed DATE: September 06, 2024 TIME: 10:04 AM [facility] 09-06-2024 Note HNO ID: [id number] Author: ?, ?, ? Service: General Surgery [...] and on Weekends and Holidays, please page [phone] if in ICU or [phone] if on RNF. SUBJECTIVE: Reports feeling well. [...] 09/06/24 0659 09/06/24699 - 09/07/24 0659 Shift 9000-4226 6063-6042 1376-6275 24 Hour Total 3036-9026 5208-8954 9435-9521 24 Hour Total INTAKE Shift Total OUTPUT [...] Problems Diagnosis Date Noted Attention to colostomy ([facility]) 04/20/2024 Assessment: 73 year old female 2 [...] up needs: SIGNATURE: Angelique Saucedo PATIENT NAME: Amirah Reed DATE: September 06, 2024 TIME: 5:59 AM Pager: see below Elective General Surgery (Green Surgery) Service Pager: For questions or concerns Mon-Fri 6a-5p please page [phone]. After 5pm and on Weekends and Holidays, please page [phone]. [facility] 09-05-2024 Note HNO ID: [id number] Author: ROHIT MILES MD Service: General Surgery Author Type: Resident Type: Progress Notes Filed: 09/06/2024 08:49 Note Text: Attestation signed by Rohit Miles MD at 09/06/2024 8:49 AM I personally saw and examined the patient on 09/05/2024. I reviewed the resident?s note. I agree with the resident?s assessment and plan unless otherwise noted Rohit Miles MD 8:49 AM 09/06/24 Please Note: This office note has been created using [employer], a speech recognition software program, and may contain errors including punctuation, grammar, spelling, gender, and inappropriate words or phrases that pertain to the sytem. Elective General Surgery (Green Surgery) Progress Note SERVICE DATE: September 05, 2024 Elective General Surgery (Green Surgery) Service Pager: For questions or concerns Tue-Tue- please page [phone]. After 5pm and on Weekends and Holidays, please page [phone]. SUBJECTIVE: Resting in bed, states no flatus [...] kg/m? O2 Therapy: Room Air IANDO: Date 09/04/24 1500 - 09/05/24 0659 09/05/24 0700 - 09/06/24 0659 Shift 7638-2050 6230-5740 24 Hour Total 4110-1226 3781-5855 5496-0667 24 Hour Total INTAKE PO 480 720 [...] on file Recom (more content not included)... [facility] 09-05-2024 Note HNO ID: [id number] Author: RITCHIE UNDERWOOD RN Service: Care Management Author Type: Registered Nurse Type: Care Mgt Initial Assessment Filed: 09/05/2024 20:32 Note Text: CARE MANAGEMENT: ASSESSMENT AND DISCHARGE PLAN SERVICE DATE: September 05, 2024 SERVICE TIME: 1:44 PM PCP: Emily Casanova DO Primary Contact: Extended Emergency Contact Information Primary Emergency Contact: Rosa Scott Address: [address] [place], [place] [address] [place] [address] Mobile Relation: Daughter Secondary Emergency Contact: Clara Reed Address: [id number] [place] [address] Mobile Relation: Spouse Admission Status: Inpatient Insurance Provider: [employer] PPO Discharge Planning requested by: Per Department Practice Potential Transition Plans To Be Determined, Home Advance Directives Current Advance Directive: Health Care Power of Account Assistant In Chart: Yes Up To Date and [...] None Discharge Planning Patient Goal(s): Heal wounds [place] of Choice Explained: [place] of [place] Given: No Reason Not Given: [...] +PCP Dr Casanova +Rx with [facility] Chart reviewed, patient admitted for closure of [...] needs. SIGNATURE: Ritchie Underwood RN PATIENT NAME: Amirah Reed DATE: September 05, 2024 TIME: 1:44 PM [facility] 09-05-2024 Note HNO ID: [id number] Author: ?, ?, ? Service: General Surgery [...] and on Weekends and Holidays, please page [phone] if in ICU or [phone] if on RNF. SUBJECTIVE: Patient reports feeling [...] Therapy: Room Air IANDO: Date 09/04/24699 - 09/05/2465809/05/24699 - 09/06/24 0659 Shift 2325-6925 7893-9795 6390-6105 24 Hour Total 6010-7316 9323-5510 3793-9981 24 Hour Total INTAKE PO 240 480 [...] up needs: SIGNATURE: Angelique Saucedo PATIENT NAME: Amirah Reed DATE: September 05, 2024 TIME: 5:54 AM Pager: see below Elective General Surgery (Green Surgery) Service Pager: For questions or concerns Mon-Fri 6a-5p please page [phone]. After 5pm and on Weekends and Holidays, please page [phone]. [facility] 09-04-2024 Note HNO ID: [id number] Author: NAT DE SOUZA, MARIA C Service: Nursing Author Type: Registered Nurse Type: Nursing Progress Note Filed: 09/04/2024 12:02 Note Text: Patient transferred from PACU to PPRU spot P. Family at [facility] 09-04-2024 Note HNO ID: [id number] Author: SUJATA STEPHENS APRN.OPERATIONS LEAD Service: Anesthesiology Author Type: Nurse Fern Cutter Type: Anesthesia Procedure Notes Filed: 09/04/2024 08:04 Note Text: ANESTHESIOLOGY PROCEDURE NOTE Airway General Information Procedure Start Time/Medication Administration: 09/04/2024 7:36 AM Procedure End Time: 09/04/2024 8:03 AM Patient location during procedure: OR Timeout Performed Pre-procedure: timeout performed Consent Obtained: Yes Patient identity confirmed: arm band Staffing OPERATIONS LEAD: Sujata Stephens APRN.OPERATIONS LEAD Performed by: OPERATIONS LEAD Indications and Patient Condition Indications for airway [...] esophageal intubation: no Airway not difficult SIGNATURE: Sujata Stephens APRN.CRNA PATIENT NAME: Amirah Lepelalit DATE: September 04, 2024 TIME: 8:03 AM CSN: [id number] [facility] 09-04-2024 Note HNO ID: [id number] Author: KEVIN NJ DO Service: Anesthesiology Author [...] No SIGNATURE: Kevin Nj DO PATIENT NAME: Amirahwhit Reed DATE: September 04, 2024 TIME: 8:00 AM CSN: [id number] [facility] 08-31-2024 Telephone encounter Note Please send refill to [facility]. Victorina Rebolledo LPN [facility] 08-31-2024 Miscellaneous Notes Please send refill to [facility]. Victorina Rebolledo LPN documented in this encounter [facility] 08-31-2024 Note [facility] 08-31-2024 History of Present illness Narrative Patient is here for IVAD port flush/blood draw per Nursing [place] protocol. IVAD is located in right upper [...] tolerated procedure well. documented in this encounter [facility] 08-27-2024 History of Present illness Narrative GENERAL SURGERY/ERAS EPIC ANESTHESIA ANALYST PREOPERATIVE EDUCATION Date: 08/27/2024 Time: 11:25 AM Education provide to: patient and spouse Lives with: Spouse Mobility: Independent ERAS protocol instructions given with good understanding. Written instructions given to patient. Encouraged to call with any questions. SIGNATURE: Estuardo Long RN PATIENT NAME: Amirah Reed DATE: August 27, 2024 TIME: 11:54 AM PAGER/CONTACT #: [phone] documented in this encounter [facility] 08-27-2024 Note HNO ID: [id number] Author: ESTUARDO LONG RN Service: ? Author Type: Registered Nurse Type: Progress Notes Filed: 08/27/2024 11:55 Note Text: GENERAL SURGERY/ERAS EPIC ANESTHESIA ANALYST PREOPERATIVE EDUCATION Date: 08/27/2024 Time: 11:25 AM Education provide to: patient and spouse Lives with: Spouse Mobility: Independent ERAS protocol instructions given with good understanding. Written instructions given to patient. Encouraged to call with any questions. SIGNATURE: Estuardo Long RN PATIENT NAME: Amirah Reed DATE: August 27, 2024 TIME: 11:54 AM PAGER/CONTACT #: [phone] [facility] 08-27-2024 History and physical note Images [...] rheumatoid factor, unspecified site ([facility]) Mild per patient GERD (gastroesophageal reflux [...] to the planned procedure. REASON FOR VISIT: Amirah Reed is a 73 year old female [...] Admin: COVID-19 vaccine, age 12+ yr, bivalent ([employer]-BIONTECH) Only the first 3 history entries have [...] Mother Cancer Mother Coronary Artery Disease Father [place] age 40's, age 60's; also smoked and alcoholic Mental illness Sister Renal Disease Sister Cancer Sister other (rheumatoid arthritis) Sister Coronary Artery Disease Brother NM age 49, smoker, recovering alcoholic Breast Cancer [...] or any previous visit (from the past 37958 hour(s)). Surgical scrub given day of PST. ARISCAT risk index interpretation 0 to 25 points: Low risk: 1.6% pulmonary complication rate 26 to 44 points: Intermediate risk: 13.3% pulmonary complication rate 45 to 123 points: High risk: 42.1% pulmonary complication rate Implantable Devices: Right chest port The Following Tests/Procedures Have Been Initiated: No test ordered in [facility] by surgeon Assessment/Plan Diagnosis:Attention to colostomy (HCC) [Z43.3] PLAN Planned Procedure: Procedure(s): COLOSTOMY CLOSURE (N/A) I spent a total of 40 minutes on the date of the service which included preparing to see the patient, [id number] patient care, completing clinical documentation, obtaining and/or reviewing separately obtained history, performing a medically appropriate examination, counseling and educating the patient/family/caregiver, and ordering medications, tests, or procedures. Instructions Given to Patient: Instructions located in the after visit summary. Patient given verbal and written preop instructions and voices comprehension and compliance. SIGNATURE: Rylee Valerio APRN.CNP PATIENT NAME: Amirah Reed DATE: August 27, 2024 TIME: 7:32 AM PAGER/CONTACT #: [facility] 08-27-2024 History and physical note Images from [...] to the planned procedure. REASON FOR VISIT: Amirah Reed is a 73 year old female who is scheduled for Procedure(s): COLOSTOMY CLOSURE (N/A) at the request of Dr. Rohit Miles for routine H&P. My final recommendation will be communicated back to the requesting physician by way of shared medical record or letter. Subjective The patient has the following: COVID-19 Immunization Status Overdue - Covid-19 Vaccine ( season) Overdue since 07/17/2024 05/22/2024 Imm Admin: COVID-19 vaccine, age 12+ yr, bivalent (P[employer]ER-BIONTECH) 04/27/2023 Imm Admin: COVID-19 vaccine, age 12+ yr (PFIZER-BIONTECH COMIRNATY) 04/21/2022 Imm Admin: COVID-19 vaccine, age 12+ yr, bivalent (PFIZER-BIONTECH) Only the first 3 history entries have [...] Mother Cancer Mother Coronary Artery Disease Father [place] age 40's, age 60's; also smoked and alcoholic Mental illness Sister Renal Disease Sister Cancer Sister other (rheumatoid arthritis) Sister Coronary Artery Disease Brother NM age 49, smoker, recovering alcoholic Breast Cancer [...] or any previous visit (from the past 89270 hour(s)). Surgical scrub given day of PST. ARISCAT risk index interpretation 0 to 25 points: Low risk: 1.6% pulmonary complication rate 26 to 44 points: Intermediate risk: 13.3% pulmonary complication rate 45 to 123 points: High risk: 42.1% pulmonary complication rate Implantable Devices: Right chest port The Following Tests/Procedures Have Been Initiated: No test ordered in epic by surgeon Assessment/Plan Diagnosis:Attention to colostomy (HCC) [Z43.3] PLAN Planned Procedure: Procedure(s): COLOSTOMY CLOSURE (N/A) I spent a total of 40 minutes on the date of the service which included preparing to see the patient, [id number] patient care, completing clinical documentation, obtaining and/or reviewing separately obtained history, performing a medically appropriate examination, counseling and educating the patient/family/caregiver, and ordering medications, tests, or procedures. Instructions Given to Patient: Instructions located in the after visit summary. Patient given verbal and written preop instructions and voices comprehension and compliance. SIGNATURE: Rylee Valerio APRN.CNP PATIENT NAME: Amirah Reed DATE: August 27, 2024 TIME: 7:32 AM PAGER/CONTACT #: documented in this encounter [facility] 08-27-2024 Instructions Rylee Valerio APRN.CNP - 08/27/2024 7:32 AM EST PATIENT PREOPERATIVE INSTRUCTIONS Rohit Miles, * has scheduled you for your procedure at this [place] [facility] [phone], [address] [id number] Please read below carefully for your personalized [...] - Stop Vitamin E, fish oil, Ginko, Piedra Aguza's Wort, flax seed oil, multivitamins, CBD oil, [...] Advance Directive, please fax a copy to [phone] or email to for it to be [...] the remote with you day of surgery Rylee Valerio APRN.AIRPLANE PATROL PILOT documented in this encounter [facility] 08-27-2024 Note Education ([facility]) AMIRAH REED ([id number]) 1950 F Date Time Provider Department 08/27/24 ESTUARDO LOGN [facility] Reason for Visit: Patient Education [91] During your visit today, we recorded the following information about you: Allergies As of Date: 08/27/2024 Noted Allergy Reaction ERYTHROMYCIN 02/09/2008 6 - Diarrhea 8 - GI Upset Comments: Abdominal cramping PENICILLINS 02/09/2008 16 - Unknown Date Reviewed: 08/27/2024 Reviewed by: Rylee Valerio APRN.AIRPLANE PATROL PILOT - Fully Assessed Prescriptions as of 08/27/2024 [...] by mouth once daily. Encounter Status:Closed by MERCEDES ESTUARDO on 08/27/24 [facility] 08-23-2024 Note HNO ID: [id number] Author: AMBAR VILCHIS MD Service: ? 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 On olaparib since 03/2024. Current dose 200 mg bid. Managed by Dr cMcoy. Tolerating well. Occasional nausea that zofran helps. [...] Start Date 08/09/2023 End Date 01/23/2024 Provider Jaren Mccoy, DO Chemotherapy CARBOplatin 400 mg in [...] discussed with the Patient or Patient's Authorized Personnel Officer. As applicable, any other physician, advance practice provider, medical student, or other health professional student that will be observing or involved in the sensitive examination for educational or training purposes was discussed with the Patient or Authorized Personnel Officer. The Patient or Authorized Personnel Officer has agreed to proceed with the sensitive [...] increase risk of breast or pancreatic cancer Ambar Vilchis MD, MPH Gynecologic Oncologist Medical Decision Making: Problems: Moderate: 2+ stable chronic illnesses Data: Unique test result(s) reviewed: 3+ R (more content not included)... [facility] 08-23-2024 History of Present illness Narrative Gynecologic Oncology Note [facility] Chief complaint: Ovarian cancer surveillance HPI: This [...] Start Date 08/09/2023 End Date 01/23/2024 Provider Jaren Mccoy, DO Chemotherapy CARBOplatin 400 mg in [...] discussed with the Patient or Patient's Authorized Personnel Officer. As applicable, any other physician, advance practice provider, medical student, or other health professional student that will be observing or involved in the sensitive examination for educational or training purposes was discussed with the Patient or Authorized Personnel Officer. The Patient or Authorized Personnel Officer has agreed to proceed with the sensitive [...] increase risk of breast or pancreatic cancer Ambar Vilchis MD, MPH Gynecologic Oncologist Medical Decision Making: Problems: Moderate: 2+ stable chronic illnesses Data: Unique test result(s) reviewed: 3+ Risk: Low: Low risk from testing/treatment Medical Decision Making Level: 4 - Moderate documented in this encounter [facility] 08-15-2024 History of Present illness Narrative Radiology Service Progress Note PATIENT NAME: Amirah Reed DATE OF SERVICE: August 15, 2024 [...] PATIENT PRESENTS WITH AN IMPLANTABLE OR ATTACHED HAMMERER HELPER: No RADIOLOGY DEPARTMENT: General X-ray: Exam(s) Completed: GI/ Procedure(s): Barium enema with water soluable contrast PERIPHERAL IV DATA: Not applicable SIGNED BY: NATY Hahn) August 15, 2024 9:56 AM documented in this encounter [facility] 08-15-2024 Note HNO ID: [id number] Author: GEOFF BALDWIN RT(R) Service: Radiology Author Type: Technologist Type: Progress Notes Filed: 08/15/2024 09:56 Note Text: Radiology Service Progress Note PATIENT NAME: Amirah Reed DATE OF SERVICE: August 15, 2024 [...] PATIENT PRESENTS WITH AN IMPLANTABLE OR ATTACHED HAMMERER HELPER: No RADIOLOGY DEPARTMENT: General X-ray: Exam(s) Completed: GI/ Procedure(s): Barium enema with water soluable contrast PERIPHERAL IV DATA: Not applicable SIGNED BY: Geoff Baldwin, RT(R) August 15, 2024 9:56 AM [facility] 08-13-2024 Note [facility] 08-10-2024 Telephone encounter Note Surgery Checklist Type: COLOSTOMY REVERSAL Admission Type: inpatient Anesthesia: General Date: 09/04/24 Arrival Time: 6:00 AM Surgery Time: 8;00 AM Location: [facility] Prep sent to Melissa Gonzalez [facility] 08-10-2024 Miscellaneous Notes Surgery Checklist Type: COLOSTOMY REVERSAL Admission Type: inpatient Anesthesia: General Date: 09/04/24 Arrival Time: 6:00 AM Surgery Time: 8;00 AM Location: [facility] Prep sent to Melissa Gonzalez documented in this encounter [facility] 08-10-2024 Telephone encounter Note Called the patient and left a voice message asking the patient to call the office back to schedule her Surgery. Melissa Gonzalez [facility] 08-10-2024 Miscellaneous Notes Called the patient and left a voice message asking the patient to call the office back to schedule her Surgery. Melissa Gonzalez documented in this encounter [facility] 08-10-2024 Note HNO ID: [id number] Author: ROHIT MILES MD Service: ? Author Type: Physician Type: Progress Notes Filed: 08/10/2024 10:05 Note Text: Rohit Miles M.D. Colon AND Rectal Surgery [address] [facility], [address] [place] [address] SUBJECTIVE Amirah Reed is a 73 year old White [...] Mother Cancer Mother Coronary Artery Disease Father NM age 40's, age 60's; also smoked and alcoholic Mental illness Sister Renal Disease Sister Cancer Sister other (rheumatoid arthritis) Sister Coronary Artery Disease Brother NM age 49, smoker, recovering alcoholic Breast Cancer [...] rate and r (more content not included)... [facility] 08-10-2024 History of Present illness Narrative Images from the original note were not included. Rohit Miles M.D. Colon & Rectal Surgery [address] [facility], [address] [place] [address] SUBJECTIVE Amirah Reed is a 73 year old White [...] Mother Cancer Mother Coronary Artery Disease Father NM age 40's, age 60's; also smoked and alcoholic Mental illness Sister Renal Disease Sister Cancer Sister other (rheumatoid arthritis) Sister Coronary Artery Disease Brother NM age 49, smoker, recovering alcoholic Breast Cancer [...] do the enhanced recovery protocol. INFORMED CONSENT Amirah Reed Medical Record: [id number] Date: 08/10/2024 Procedure: Reversal of loop colostomy The risks, benefits and anticipated outcomes of the procedure, the risks and benefits of the alternatives to the procedure and the roles and tasks of the personnel to be involved were discussed with the patient and the patient consents to the procedure and agrees to proceed. I verify that I personally obtained Amirah Reed's consent. Rohit Miles MD Dept of [facility] Follow up: Return for Surgery. Rohit Miles M.D. Please Note: This office note has been created using [employer], a speech recognition software program, and may contain errors including punctuation, grammar, spelling, gender, and inappropriate words or phrases that pertain to the sytem. documented in this encounter [facility] 08-03-2024 Note [facility] 08-03-2024 History of Present illness Narrative Oncologic problem(s): 1) Serous carcinoma of the left ovary. HPI: The patient is a 73-year-old female with a past medical history significant for hypertension and rheumatoid arthritis. Presented to the ED at [facility] on 07/10/2023 with complaints of nausea [...] represent metastatic disease. She was transferred to [facility] for gynecologic oncology surgery. Underwent diagnostic laparoscopy [...] within the recent abdominal fluid cytology specimen, [id number]. Confirmatory immunohistochemistry was performed on the cytology [...] paclitaxel very well overall. -Multi-Cancer panel through [employer] was positive for a pathogenic variant in [...] reviewed and edited and updated as necessary. Jaren Mccoy DO documented in this encounter [facility] 07-19-2024 History of Present illness Narrative [...] been reviewed prior to dispensing the medication. C 13 Catapult Operator Assessment Patient confirmed: Yes Med/dose confirmed: Yes Supplies needed: No supplies needed Missed doses: No Estimated days supply on hand: 10 Copay amount: 0 Delivery method: FedEx Signature required: Waived on patient request Delivery address: [address] [place] [address] Delivery date: 07/24/24 Questions or concerns for [...] facility-administered medications on file prior to visit. [facility] RX SPECIALTY CLINICAL ASSESSMENT - HEMATOLOGY ONCOLOGY [...] and vomiting - Avoid grapefruit, grapefruit juice, [place] oranges, or Lincoln orange juice Warnings: - Hypersensitivity - Pulmonary [...] toxicity Alexandra Weber documented in this encounter [facility] 07-19-2024 Note [facility] 07-19-2024 Telephone encounter Note Will initiate prior auth after 07/25/2024, one insurance is active. Victorina Rebolledo LPN [facility] 07-19-2024 Miscellaneous Notes Will initiate prior auth after 07/25/2024, one insurance is active. Victorina Rebolledo LPN Ran is calling to let office know patient will be changing insurances as of 07/25/2024, new [place] has been entered with start date of 07/25/2024 [facility] set to terminate on 07/24/2024, [employer]vantage PPO will be new plan 07/25/2024 with Member ID of [id number]. He is stating we will need to gather a new prior auth for Lynparza medication. [employer]'s prior auth number is . documented in this encounter [facility] 07-13-2024 Telephone encounter Note Ran is calling to let office know patient will be changing insurances as of 07/25/2024, new [place] has been entered with start date of 07/25/2024 [facility] set to terminate on 07/24/2024, [employer]vantage PPO will be new plan 07/25/2024 with Member ID of [id number]. He is stating we will need to gather a new prior auth for Lynparza medication. [employer]'s prior auth number is . [facility] 06-20-2024 History of Present illness Narrative [...] been reviewed prior to dispensing the medication. C 13 Catapult Operator Assessment Patient confirmed: Yes Med/dose confirmed: Yes Supplies needed: No supplies needed Missed doses: No Estimated days supply on hand: 7 Copay amount: 0 Delivery method: FedEx Signature required: Waived on patient request Delivery address: [address] [place], [place] [id number] Delivery date: 06/26/24 Questions or concerns for [...] facility-administered medications on file prior to visit. [facility] RX SPECIALTY CLINICAL ASSESSMENT - HEMATOLOGY ONCOLOGY [...] and vomiting - Avoid grapefruit, grapefruit juice, [place] oranges, or Lincoln orange juice Warnings: - Hypersensitivity - Pulmonary [...] toxicity Alexandra Weber documented in this encounter [facility] 06-20-2024 Note [facility] 06-04-2024 Telephone encounter Note Spoke with patient and scheduled as directed. Debra Solorzano [facility] 06-04-2024 Miscellaneous Notes Spoke with patient and scheduled as directed. Debra Solorzano PSS- please contact patient to schedule a CBC in one month. Victorina Rebolledo LPN documented in this encounter [facility] 06-04-2024 Telephone encounter Note PSS- please contact patient to schedule a CBC in one month. Victorina Rebolledo LPN [facility] 06-01-2024 Note [facility] 06-01-2024 History of Present illness Narrative Patient is here for IVAD port flush/blood draw per [facility] [place] protocol. IVAD is located in right upper [...] tolerated procedure well. documented in this encounter [facility] 05-28-2024 Telephone encounter Note ERAS EPIC ANESTHESIA ANALYST ONE MONTH FOLLOW UP PHONE CALL PHONE [...] RN DATE: 05/28/2024 TIME: 2:10 PM CONTACT #:[phone] [facility] 05-28-2024 Miscellaneous Notes ERAS EPIC ANESTHESIA ANALYST ONE MONTH FOLLOW UP PHONE CALL PHONE [...] RN DATE: 05/28/2024 TIME: 2:10 PM CONTACT #:[phone] documented in this encounter [facility] 05-18-2024 Note [facility] 05-17-2024 History of Present illness Narrative Gynecologic Oncology Note [facility] Chief complaint: ovarian cancer surveillance HPI: This [...] Start Date 08/09/2023 End Date 01/23/2024 Provider Jaren Mccoy, DO Chemotherapy CARBOplatin 400 mg in [...] discussed with the Patient or Patient's Authorized Personnel Officer. As applicable, any other physician, advance practice provider, medical student, or other health professional student that will be observing or involved in the sensitive examination for educational or training purposes was discussed with the Patient or Authorized Personnel Officer. The Patient or Authorized Personnel Officer has agreed to proceed with the sensitive [...] 4 - Moderate documented in this encounter [facility] 05-17-2024 Note HNO ID: [id number] Author: MAYTE GONZALEZ APRN.CNP Service: ? Author Type: Nurse Practitioner Type: Progress Notes Filed: 05/17/2024 10:59 Note Text: Gynecologic Oncology Note [facility] Chief complaint: ovarian cancer surveillance HPI: This [...] Start Date 08/09/2023 End Date 01/23/2024 Provider Jaren Mccoy, DO Chemotherapy CARBOplatin 400 mg in [...] discussed with the Patient or Patient's Authorized Personnel Officer. As applicable, any other physician, advance practice provider, medical student, or other health professional student that will be observing or involved in the sensitive examination for educational or training purposes was discussed with the Patient or Authorized Personnel Officer. The Patient or Authorized Personnel Officer has agreed to proceed with the sensitive [...] -reversal reconsidered in few months with Dr Ginger LY (more content not included)... [facility] 05-10-2024 Telephone encounter Note Pt notified of result. Pedro Holt MA May 10, 2024 10:17 AM [facility] 05-10-2024 Miscellaneous Notes Pt notified of [...] 2024 12:30 PM documented in this encounter [facility] 05-09-2024 Note HNO ID: [id number] Author: ROHIT MILES MD Service: ? Author Type: Physician Type: Progress Notes Filed: 05/09/2024 12:31 Note Text: Rohit Miles M.D. Colon AND Rectal Surgery [address] [facility], [address] [place] [id number] SUBJECTIVE Amirah Reed is a 73 year old White [...] Mother Cancer Mother Coronary Artery Disease Father NM age 40's, age 60's; also smoked and alcoholic Mental illness Sister Renal Disease Sister Cancer Sister other (rheumatoid arthritis) Sister Coronary Artery Disease Brother NM age 49, smoker, recovering alcoholic Breast Cancer [...] Mental Status: She (more content not included)... [facility] 05-09-2024 History of Present illness Narrative Images from the original note were not included. Rohit Miles M.D. Colon & Rectal Surgery [address] [facility], [address] [place] [address] SUBJECTIVE Amirah Reed is a 73 year old White [...] Mother Cancer Mother Coronary Artery Disease Father NM age 40's, age 60's; also smoked and alcoholic Mental illness Sister Renal Disease Sister Cancer Sister other (rheumatoid arthritis) Sister Coronary Artery Disease Brother NM age 49, smoker, recovering alcoholic Breast Cancer [...] This office note has been created using [employer], a speech recognition software program, and may contain errors including punctuation, grammar, spelling, gender, and inappropriate words or phrases that pertain to the sytem. documented in this encounter [facility] 05-09-2024 Telephone encounter Note Pt returned call, pt notified and voices understanding. Apt note updated. Roselyn Pittman LPN [facility] 05-09-2024 Miscellaneous Notes Pt returned call, [...] is here for lab work on 05/18. Jaren Mccoy DO documented in this encounter [facility] 05-09-2024 Telephone encounter Note Left message for patient to contact office. Victorina Rebolledo LPN [facility] 05-09-2024 Telephone encounter Note Can let [...] is here for lab work on 05/18. Jaren Mccoy DO [facility] 05-03-2024 Telephone encounter Note Scheduled [facility] Work Phone: 05-03-2024 Miscellaneous Notes Scheduled Spoke with pt. Informed redraw CMP labs on Tuesday PSS please put on port schedule for 05/07 @ 10 am. Kelsy Storm LPN Lab work today showed that her liver enzymes are elevated. This may just be an effect from surgery and temporary. Recommend recheck CMP on Tuesday. documented in this encounter [facility] 05-03-2024 Telephone encounter Note Spoke with pt. Informed redraw CMP labs on Tuesday PSS please put on port schedule for 05/07 @ 10 am. Kelsy Storm LPN [facility] 05-03-2024 Telephone encounter Note Lab work today showed that her liver enzymes are elevated. This may just be an effect from surgery and temporary. Recommend recheck CMP on Tuesday. [facility] 05-03-2024 Telephone encounter Note LVM. 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 HPI: The patient is a 73-year-old female with a past medical history significant for hypertension and rheumatoid arthritis. Presented to the ED at [facility] on 07/10/2023 with complaints of nausea [...] represent metastatic disease. She was transferred to [facility] for gynecologic oncology surgery. Underwent diagnostic laparoscopy [...] within the recent abdominal fluid cytology specimen, [id number]. Confirmatory immunohistochemistry was performed on the cytology [...] healthy. SKIN: No jaundice. 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 Portions of this documentation were copied and pasted from previous office visit notes in order to provide a cohesive continuity of the history. The note has been reviewed and edited and updated as necessary. I spent a total of 15 minutes on the date of the service which included preparing to see the patient, [id number] patient care, completing clinical documentation, obtaining and/or reviewing separately obtained history, performing a medically appropriate examination, counseling and educating the patient/family/caregiver, ordering medications, tests, or procedures, communicating with other HCPs (not separately reported), and communicating results to the patient/family/caregiver. Jaren Mccoy DO documented in this encounter [facility] 04-26-2024 Telephone encounter Note DISCHARGE CALL BACK Today's date: April 26, 2024 Notified of Pt discharge by: Epic notification Patient [place] on [place]26/[address] [facility] Primary Cancer Diagnosis: Ovarian Cancer Admitting Diagnosis: Elective colostomy reversal Discharge Summary/SBAR reviewed: Yes Handoff Discussed with Transitional Nut 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: N/A Psychosocial Risk Factors: None If patient discharged to SNF/Rehab Facility, phone call completed to reinforce discharge instructions and follow up: N/A Call Disposition: No need for follow-up from our office d/t elective surgery. Patient is scheduled with our office next week. Joy Bolaños RN [facility] 04-26-2024 Miscellaneous Notes DISCHARGE CALL BACK Today's date: April 26, 2024 Notified of Pt discharge by: Epic notification Patient discharged on 04/26/[address] [facility] Primary Cancer Diagnosis: Ovarian Cancer Admitting Diagnosis: Elective colostomy reversal Discharge Summary/SBAR reviewed: Yes Handoff Discussed with Transitional Nut 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: N/A Psychosocial Risk Factors: None If patient discharged to SNF/Rehab Facility, phone call completed to reinforce discharge instructions and follow up: N/A Call Disposition: No need for follow-up from our office d/t elective surgery. Patient is scheduled with our office next week. Joy Bolaños RN documented in this encounter [facility] 04-23-2024 Telephone encounter Note GENERAL SURGERY/ERAS EPIC ANESTHESIA ANALYST PREOPERATIVE EDUCATION Date: 04/20/2024 Time: 3:37 PM Education provide to: Patient Lives with: Alone Mobility: Independent ERAS protocol instructions given with good understanding. Written instructions given to patient at PST appointment. Encouraged to call with any questions. SIGNATURE: Estuardo Long RN PATIENT NAME: Amirah Reed DATE: April 23, 2024 TIME: 9:18 AM PAGER/CONTACT #: [phone] [facility] 04-23-2024 Miscellaneous Notes GENERAL SURGERY/ERAS EPIC ANESTHESIA ANALYST PREOPERATIVE EDUCATION Date: 04/20/2024 Time: 3:37 PM Education provide to: Patient Lives with: Alone Mobility: Independent ERAS protocol instructions given with good understanding. Written instructions given to patient at PST appointment. Encouraged to call with any questions. SIGNATURE: Estuardo Long RN PATIENT NAME: Amirah Reed DATE: April 23, 2024 TIME: 9:18 AM PAGER/CONTACT #: [phone] documented in this encounter [facility] 04-20-2024 History and physical note Images [...] (HCC) Patient reports - mild Platelets decreased ([facility]) Platelet Count 150 - 400 k/uL 119 [...] placed in this encounter. REASON FOR VISIT: Amirah Reed is a 73 year old female who is scheduled for Procedure(s) with comments: LAPAROSCOPIC COLOSTOMY REVERSAL (N/A) - ERAS at the request of @REFPROV2@ for routine [...] fibrillation, CAD, chest pain, DVT/PE and recent NM. GI: Negative for: abdominal pain, dysphagia, hepatitis, liver disease, nausea, vomiting and ETOH >2 drinks/day. : Negative for: dysuria, hematuria, urinary incontinence and renal failure. ADVISORY INTERN: Negative for abnormal vaginal bleeding, abnormal vaginal [...] Mother Cancer Mother Coronary Artery Disease Father NM age 40's, age 60's; also smoked and alcoholic Mental illness Sister Renal Disease Sister Cancer Sister other (rheumatoid arthritis) Sister Coronary Artery Disease Brother NM age 49, smoker, recovering alcoholic Breast Cancer [...] or any previous visit (from the past [id number] hour(s)). Implantable Devices: right chest port Patient [...] which included preparing to see the patient, [id number] patient care, completing clinical documentation, obtaining and/or reviewing separately obtained history, performing a medically appropriate examination, and counseling and educating the patient/family/caregiver. SIGNATURE: Sandra Alvares APRN.CNP PATIENT NAME: Amirah Reed DATE: April 20, 2024 TIME: 2:20 PM PAGER/CONTACT #: [facility] 04-20-2024 History and physical note Images from the original note were not included. [facility] HISTORY AND PHYSICAL EXAMINATION SERVICE DATE: 04/20/2024 SERVICE TIME: 2:20 PM PRIMARY CARE PHYSICIAN: Emily Casanova, Assessment Patient [...] placed in this encounter. REASON FOR VISIT: Amirah Reed is a 73 year old female who is scheduled for Procedure(s) with comments: LAPAROSCOPIC COLOSTOMY REVERSAL (N/A) - ERAS at the request of @REFPROV2@ for routine [...] fibrillation, CAD, chest pain, DVT/PE and recent NM. GI: Negative for: abdominal pain, dysphagia, hepatitis, liver disease, nausea, vomiting and ETOH >2 drinks/day. : Negative for: dysuria, hematuria, urinary incontinence and renal failure. ADVISORY INTERN: Negative for abnormal vaginal bleeding, abnormal vaginal [...] Mother Cancer Mother Coronary Artery Disease Father NM age 40's, age 60's; also smoked and alcoholic Mental illness Sister Renal Disease Sister Cancer Sister other (rheumatoid arthritis) Sister Coronary Artery Disease Brother NM age 49, smoker, recovering alcoholic Breast Cancer [...] or any previous visit (from the past 28664 hour(s)). Implantable Devices: right chest port Patient [...] which included preparing to see the patient, [id number] patient care, completing clinical documentation, obtaining and/or reviewing separately obtained history, performing a medically appropriate examination, and counseling and educating the patient/family/caregiver. SIGNATURE: Sandra Alvares APRN.CNP PATIENT NAME: Amirah Reed DATE: April 20, 2024 TIME: 2:20 PM PAGER/CONTACT #: documented in this encounter [facility] 04-20-2024 History of Present illness Narrative [...] been reviewed prior to dispensing the medication. C 13 Catapult Operator Assessment Patient confirmed: Yes Med/dose confirmed: Yes Supplies needed: No supplies needed Missed doses: No Estimated days supply on hand: 6 Next cycle/dose due: 04/20/24 Copay amount: 35 Copay form of payment: Credit card on file Payment confirmed: Yes Delivery method: FedEx Signature required: Waived on patient request Delivery address: [address] [place] [address] Delivery date: 04/26/24 Questions or concerns for [...] facility-administered medications on file prior to visit. [facility] RX SPECIALTY CLINICAL ASSESSMENT - HEMATOLOGY ONCOLOGY [...] and vomiting - Avoid grapefruit, grapefruit juice, [place] oranges, or Lincoln orange juice Warnings: - Hypersensitivity - Pulmonary [...] Lance Hawkins RPh documented in this encounter [facility] 04-20-2024 Instructions Sandra Alvares APRN.AIRPLANE PATROL PILOT - 04/20/2024 7:33 AM EDT PATIENT PREOPERATIVE INSTRUCTIONS Your surgeon has scheduled for your procedure at this surgery center: [facility]: [phone], [address] [place], [place] [address] Please read below carefully for your personalized [...] surgery. - YOU MUST HAVE A RESPONSIBLE PUBLIC HEALTH DENTIST TAKE YOU HOME. A BINDER LAYER, CAB OR UBER PUBLIC HEALTH DENTIST CANNOT BE MADE A RESPONSIBLE PUBLIC HEALTH DENTIST. - If you are undergoing an outpatient [...] date of surgery. Visitation: Visitors to any [facility] facility: Any individual who is sick should not visit. Visitors to patients with COVID-19 must follow these guidelines, which include wearing a mask, eye protection, gown and gloves. [facility] in [place] Visitation hours: 7 AM to 9 PM. Pre-Surgery Unit - Patients may have up to 2 visitors at a time. PACU recovery Unit - Patients may have up to 1-2 visitors at a time. [facility] [place] Pre-Surgery area - 1 visitor at a [...] Advance Directive, please fax a copy to [phone] or email to for it to be [...] OR ORTHOPEDIC SURGERY: - Orthopedic patients at [facility] listed as outpatient, please bring walker into the building. - Orthopedic patients at [facility] listed as to be admitted, please leave walkers in the car or with a family member. - Orthopedic patients at [facility] [place], please bring the walker into the building day of surgery. Hibiclens provided and instructions given per [place] nurse The anti-bacterial soap (Hibiclens) should be [...] Alvares APRN.CNP 04/20/24 documented in this encounter [facility] 04-17-2024 Telephone encounter Note [facility] FOLLOW-UP NOTE Patient identified by [...] time Joy Bolaños RN April 17, 2024 [facility] 04-17-2024 Miscellaneous Notes [facility] Coordination FOLLOW-UP NOTE Patient identified by [...] April 17, 2024 documented in this encounter [facility] 04-16-2024 Telephone encounter Note Patient notified. Victorina Rebolledo LPN [facility] 04-16-2024 Miscellaneous Notes Patient notified. Victorina Rebolledo LPN She does not necessarily need to hold Lynparza for the surgery but her platelet count has been trending lower since starting the drug. Check CBC this as scheduled. If platelet count lower than she will be instructed to hold Lynparza. Jaren Mccoy DO Patient called to inform office that she can have her surgery on 04/[address] Miles. She was to inform office due to medication changes that may need to take place. documented in this encounter [facility] 04-16-2024 Telephone encounter Note She does not necessarily need to hold Lynparza for the surgery but her platelet count has been trending lower since starting the drug. Check CBC this as scheduled. If platelet count lower than she will be instructed to hold Lynparza. Jaren Mccoy DO [facility] 04-16-2024 Telephone encounter Note Surgery Checklist Type: LAP COLOSTOMY REVERSAL Admission Type: inpatient Anesthesia: General Date: 04/24/24 Arrival Time: 6:00 AM Surgery Time: 8:00 AM Location: [facility] Melissa Gonzalez [facility] 04-16-2024 Miscellaneous Notes Surgery Checklist Type: LAP COLOSTOMY REVERSAL Admission Type: inpatient Anesthesia: General Date: 04/24/24 Arrival Time: 6:00 AM Surgery Time: 8:00 AM Location: [facility] Melissa Gonzalez documented in this encounter [facility] 04-16-2024 Telephone encounter Note Patient called to inform office that she can have her surgery on 04/[address] Miles. She was to inform office due to medication changes that may need to take place. [facility] Work Phone: 04-06-2024 Telephone encounter Note [...] if unable to comply. Joy Bolaños RN T [facility] 04-06-2024 Miscellaneous Notes ORAL ANTI-CANCER AGENTS [...] Joy Bolaños RN Patient returned call and adult day care worker was unavailable. Please call patient. Debra Solorzano ORAL ANTI-CANCER AGENTS FOLLOW-UP PHONE CALL/VISIT Called patient, no answer, left a VM requesting a call back from patient. Joy Bolaños RN documented in this encounter [facility] 04-06-2024 Telephone encounter Note Patient returned call and adult day care worker was unavailable. Please call patient. Debra Solorzano [facility] 04-06-2024 Instructions Rohit Miles MD - 04/06/2024 10:54 AM EDT Ostomy Information Different Types of Ostomies Ostomy: The term Ostomy or stoma comes from the Maori word meaning mouth or opening. An ostomy [...] to change the pouch by observing the WO nurse. The WO nurse's support continues after [...] three to seven days. After surgery, the [facility] nurse will teach you how to do this using the equipment that has been selected to fit your needs. Obmv-mt-bbie instructions will be enclosed with your discharge [...] should have no problems lifting and holding communications representative weights, like small children or bags of [...] of the pouch to your skin. Your [facility] nurse can show you how to do [...] the skin barrier from sticking. Use a hair tinter set on cool or use an electric [...] drugs stores carry these specialty items. Your [facility] nurse should give you information about local and mail order sources of supply when you are discharged from the hospital. documented in this encounter [facility] 04-06-2024 Telephone encounter Note ORAL ANTI-CANCER AGENTS FOLLOW-UP PHONE CALL/VISIT Called patient, no answer, left a VM requesting a call back from patient. Joy Bolaños RN [facility] 04-06-2024 History of Present illness Narrative Images from the original note were not included. Rohit Miles M.D. Colon & Rectal Surgery [address] [facility], [address] [place] [id number] ALEXANDRA Reed is a 73 year old White female with history of LAR for ovarian carcinoma and transverse colostomy HPI The patient was referred by Jaren [address] [place] [id number] for my consultation regarding transverse colostomy and [...] Mother Cancer Mother Coronary Artery Disease Father [place] age 40's, age 60's; also smoked and alcoholic Mental illness Sister Renal Disease Sister Cancer Sister other (rheumatoid arthritis) Sister Coronary Artery Disease Brother NM age 49, smoker, recovering alcoholic Breast Cancer [...] to do an open surgery. INFORMED CONSENT Amirah Reed Medical Record: [id number] Date: 04/06/2024 Procedure: Laparoscopic colostomy reversal The risks, benefits and anticipated outcomes of the procedure, the risks and benefits of the alternatives to the procedure and the roles and tasks of the personnel to be involved were discussed with the patient and the patient consents to the procedure and agrees to proceed. I verify that I personally obtained Amirah Reed's consent. Rohit Miles MD Dept of [facility] Follow up: Return for Surgery. Rohit Miles M.D. Please Note: This office note has been created using [employer], a speech recognition software program, and may contain errors including punctuation, grammar, spelling, gender, and inappropriate words or phrases that pertain to the sytem. documented in this encounter [facility] 03-30-2024 Telephone encounter Note Scheduled with patient [facility] Work Phone: 03-30-2024 Miscellaneous Notes Scheduled [...] CBC/CMP/CA125 in about 4 to 6 weeks. Jaren Mccoy DO CBC resulted. Joy Bolaños RN [...] Joy Bolaños RN documented in this encounter [facility] 03-30-2024 Telephone encounter Note 1st attempt. Message left for patient to contact office to schedule QWK CBC ?TX(PORT)* CBC/CMP/CA125(PORT)* AND OV(PORT)LAB EARLY* with Dr. Mccoy in 4-6 weeks. [facility] 03-29-2024 Telephone encounter Note Patient started/will start taking olaparib on 03/30/24. Patient informed of Dr. cMcoy's response, stated understanding. PSS- please contact patient to schedule week labs and OV in 4-6 weeks. (See Dr. Mccoy message) Thank you. Joy Bolaños RN [facility] 03-29-2024 Telephone encounter Note Okay to start Lynparza tomorrow. Weekly CBC/possible transfusion. OV with CBC/CMP/CA125 in about 4 to 6 weeks. Jaren Mccoy DO [facility] 03-29-2024 Telephone encounter Note CBC resulted. Joy Bolaños RN [facility] 03-29-2024 History of Present illness Narrative Patient is here for IVAD port flush/blood draw per [facility] protocol. IVAD is located in right upper [...] tolerated procedure well. documented in this encounter [facility] 03-28-2024 Telephone encounter Note Scheduled [facility] 03-28-2024 Telephone encounter Note Patient will [...] port schedule. Thank you. Joy Bolaños RN [facility] 03-22-2024 Telephone encounter Note ORAL ANTI-CANCER [...] teaching topics as needed. Joy Bolaños RN T [facility] 03-22-2024 Miscellaneous Notes ORAL ANTI-CANCER AGENTS EDUCATION [...] Joy Bolaños RN documented in this encounter [facility] 03-21-2024 History of Present illness Narrative Patient is here for IVAD port flush/blood draw per [facility] [place] protocol. IVAD is located in right upper [...] tolerated procedure well. documented in this encounter [facility] 03-20-2024 Telephone encounter Note Message relayed to patient. Scheduled lab/port with patient [facility] Work Phone: 03-20-2024 Miscellaneous Notes Message [...] port. Debra Solorzano documented in this encounter [facility] 03-20-2024 Telephone encounter Note Left VM for pt to return call to office. Will need additional lab apt made. Roselyn Pittman LPN [facility] 03-20-2024 Telephone encounter Note Can let her know the additional lab work yesterday did not suggest a specific cause for the anemia. I believe the anemia is still recovering from chemotherapy but I would like her to come in for additional lab work to be sure there is not something else we can do to help hasten the recovery of her anemia. [facility] 03-19-2024 Telephone encounter Note Check out comments: Every 2 week CBC/CMP x 4 (for 8 weeks), once patient receives medication. Monthly CA 125. OV/labs in 2 months. Patient to start Limparza and will call in once she knows when she is starting so we can schedule as directed above. Please note that patient has a port. 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 HPI: The patient is a 73-year-old female with a past medical history significant for hypertension and rheumatoid arthritis. Presented to the ED at [facility] on 07/10/2023 with complaints of nausea [...] represent metastatic disease. She was transferred to [facility] for gynecologic oncology surgery. Underwent diagnostic laparoscopy [...] within the recent abdominal fluid cytology specimen, [id number]. Confirmatory immunohistochemistry was performed on the cytology [...] SKIN: No jaundice. LABS: Latest Ref Rng 03/19/2024 WBC 3.70 - 11.00 k/uL 4.17 [...] Abs Lymph 1.00 - 4.00 k/uL 1.28 Dillingham% % 9.8 Abs Dillingham <0.87 k/uL 0.41 Eosin% % 1.7 Abs [...] plan to talk with their PCP and competitive athlete about genetic counseling. Portions of this documentation were copied and pasted from previous office visit notes in order to provide a cohesive continuity of the history. The note has been reviewed and edited and updated as necessary. I spent a total of 15 minutes on the date of the service which included preparing to see the patient, [id number] patient care, completing clinical documentation, obtaining and/or reviewing separately obtained history, performing a medically appropriate examination, counseling and educating the patient/family/caregiver, ordering medications, tests, or procedures, communicating with other HCPs (not separately reported), and communicating results to the patient/family/caregiver. Jaren Mccoy DO documented in this encounter [facility] 03-16-2024 History of Present illness Narrative [facility] received prescription(s) for Lynparza from Dr. Mccoy's office. Benefits investigation was conducted, indicating that a prior authorization is required by patient's insurance plan with [employer]. Encounter will be updated once prior authorization has been submitted by [facility]. documented in this encounter [facility] 02-28-2024 Telephone encounter Note Pt notified. Roselyn Pittman LPN [facility] 02-28-2024 Miscellaneous Notes Pt notified. Roselyn Pittman LPN Counts okay for root canal. Patient had CBC drawn today, would like to know the results and if Dr Mccoy is ok with her having the root canal, so she may get it scheduled. Thanks documented in this encounter [facility] 02-28-2024 Telephone encounter Note Counts okay for root canal. [facility] 02-28-2024 Telephone encounter Note Patient had CBC drawn today, would like to know the results and if Dr Mccoy is ok with her having the root canal, so she may get it scheduled. Thanks [facility] 02-28-2024 Telephone encounter Note Scheduled [facility] Work Phone: 02-28-2024 Miscellaneous Notes Scheduled Spoke with pt. Informed CBC tomorrow. PSS please put on port schedule today 02/27 @ 10 am. Pt. Aware. Kelsy Storm LPN Check CBC tomorrow to assure platelet count recovery. Jaren Mccoy DO Patient called back stating she [...] has finished chemo. documented in this encounter [facility] 02-28-2024 Telephone encounter Note Spoke with pt. Informed CBC tomorrow. PSS please put on port schedule today 02/27 @ 10 am. Pt. Aware. Kelsy Storm LPN [facility] 02-27-2024 Telephone encounter Note Check CBC tomorrow to assure platelet count recovery. Jaren Mccoy DO [facility] 02-27-2024 Telephone encounter Note Patient called back stating she would be needing a root canal. [facility] 02-27-2024 Telephone encounter Note Pt. Wondering if she can have a dental check up? For the past week she has had a tooth ache on and off. Informed she can have it checked, if further tx is needed she should contact our office and let us know. Pt. Voiced understanding. Kelsy Storm LPN [facility] 02-27-2024 Telephone encounter Note Patient called asking if okay for dental appointment now that she has finished chemo. [facility] 02-23-2024 Telephone encounter Note Requesting 90 day Rx. Victorina Rebolledo LPN [facility] 02-23-2024 Miscellaneous Notes Requesting 90 day Rx. Victorina Rebolledo LPN documented in this encounter [facility] 02-13-2024 History of Present illness Narrative Gynecologic Oncology Note [facility] Chief complaint: CT review, treatment planning HPI: [...] Start Date 08/09/2023 End Date 01/23/2024 Provider Jaren Mccoy, DO Chemotherapy CARBOplatin 400 mg in [...] Mother Cancer Mother Coronary Artery Disease Father [place] age 40's, age 60's; also smoked and alcoholic Mental illness Sister Renal Disease Sister Cancer Sister other (rheumatoid arthritis) Sister Coronary Artery Disease Brother [place] age 49, smoker, recovering alcoholic Breast Cancer [...] Urged her to discuss with son again. Ambar Vilchis MD, MPH Gynecologic Oncologist Medical Decision Making: Problems: Low: Stable chronic illness Moderate: 1+ chronic illnesses with change Data: Unique source(s) for external note(s) reviewed: 3+ Unique test result(s) reviewed: 3+ Unique test(s) ordered: 1 Independent interpretation of test from other physician/QHCP Risk: Low: Low risk from testing/treatment Medical Decision Making Level: 4 - Moderate documented in this encounter [facility] 02-09-2024 Telephone encounter Note Spoke to florecita to let her know we had to change her appointment to 02/12 at 10:30 am. Malgorzata to provider being in surgery. Patient understood. Milagro Sena MA [facility] 02-09-2024 Miscellaneous Notes Spoke to florecita to let her know we had to change her appointment to 02/12 at 10:30 am. Malgorzata to provider being in surgery. Patient understood. 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 HPI: The patient is a 73-year-old female with a past medical history significant for hypertension and rheumatoid arthritis. Presented to the ED at [facility] on 07/10/2023 with complaints of nausea [...] represent metastatic disease. She was transferred to [facility] for gynecologic oncology surgery. Underwent diagnostic laparoscopy [...] within the recent abdominal fluid cytology specimen, [id number]. Confirmatory immunohistochemistry was performed on the cytology [...] healthy. SKIN: No jaundice. LABS: Latest Ref [facility] 02/06/2024 WBC 3.70 - 11.00 k/uL 2.47 [...] Abs Lymph 1.00 - 4.00 k/uL 1.30 Dillingham% % 19.4 Abs Dillingham <0.87 k/uL 0.48 Eosin% % 0.8 Abs [...] paclitaxel very well overall. 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 -White coat HTN. -Reviewed CBC. -CTs MELISSA. Plan: -Opinion from Dr. Vilchis on maintenance therapy. -Referral to Dr. Miles for ostomy takedown. -Continue B complex vitamin. -Her children plan to talk with their PCP and competitive athlete about genetic counseling. Portions of this documentation were copied and pasted from previous office visit notes in order to provide a cohesive continuity of the history. The note has been reviewed and edited and updated as necessary. I spent a total of 15 minutes on the date of the service which included preparing to see the patient, [id number] patient care, completing clinical documentation, obtaining and/or reviewing separately obtained history, performing a medically appropriate examination, counseling and educating the patient/family/caregiver, ordering medications, tests, or procedures, communicating with other HCPs (not separately reported), and communicating results to the patient/family/caregiver. Jaren Mccoy DO documented in this encounter [facility] 02-01-2024 History of Present illness Narrative Radiology Service Progress Note PATIENT NAME: Amirah Reed DATE OF SERVICE: February 01, 2024 [...] PATIENT PRESENTS WITH AN IMPLANTABLE OR ATTACHED HAMMERER HELPER: No RADIOLOGY DEPARTMENT: CT; Exam(s) Completed: Chest Abdomen Pelvis PERIPHERAL IV DATA: power port accessed by [employer] SIGNED BY: RT Lexx(R) February 01, 2024 4:21 PM documented in this encounter [facility] 01-23-2024 Telephone encounter Note Patient scheduled for 1 unit PRBC 01/24/2024 @ [facility], [facility]. Orders faxed. Patient and lab aware. Victorina Rebolledo LPN [facility] 01-23-2024 Miscellaneous Notes Patient scheduled for 1 unit PRBC 01/24/2024 @ 0830, [facility]. Orders faxed. Patient and lab aware. Victorina Rebolledo LPN documented in this encounter [facility] 01-19-2024 History of Present illness Narrative Patient is here for IVAD port flush/blood draw per [facility] [place] protocol. IVAD is located in right upper [...] tolerated procedure well. 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 HPI: The patient is a 73-year-old female with a past medical history significant for hypertension and rheumatoid arthritis. Presented to the ED at [facility] on 07/10/2023 with complaints of nausea [...] represent metastatic disease. She was transferred to [facility] for gynecologic oncology surgery. Underwent diagnostic laparoscopy [...] within the recent abdominal fluid cytology specimen, [id number]. Confirmatory immunohistochemistry was performed on the cytology [...] paclitaxel very well overall. -Multi-Cancer panel through [facility] [facility] was positive for a pathogenic variant in [...] plan to talk with their PCP and competitive athlete about genetic counseling. Portions of this documentation were copied and pasted from previous office visit notes in order to provide a cohesive continuity of the history. The note has been reviewed and edited and updated as necessary. I spent a total of 15 minutes on the date of the service which included preparing to see the patient, [id number] patient care, completing clinical documentation, obtaining and/or reviewing separately obtained history, performing a medically appropriate examination, counseling and educating the patient/family/caregiver, ordering medications, tests, or procedures, communicating with other HCPs (not separately reported), and communicating results to the patient/family/caregiver. Jaren A Masci, DO documented in this encounter [facility] 01-11-2024 Telephone encounter Note One unit of platelets to be transfused 01/12/24 at [facility] at 11AM, pt notified and order faxed. Roselyn Pittman LPN [facility] 01-11-2024 Miscellaneous Notes One unit of platelets to be transfused 01/12/24 at [facility] at 11AM, pt notified and order faxed. Roselyn Pittman LPN documented in this encounter [facility] 01-11-2024 History of Present illness Narrative [...] Sophia Herrera RN documented in this encounter [facility] 01-04-2024 History of Present illness Narrative Patient is here for IVAD port flush/blood draw per [facility] [place] protocol. IVAD is located in right upper [...] tolerated procedure well. documented in this encounter [facility] 12-28-2023 Telephone encounter Note Scheduled patient chair side. Kristine Hardy [facility] 12-28-2023 Miscellaneous Notes Scheduled patient chair side. Kristine Hardy PSS- please schedule patient for weekly CBC(?TX) X 2 weeks, beginning next week. Patient has port. Vcitorina Rebolledo LPN documented in this encounter [facility] 12-28-2023 Telephone encounter Note PSS- please schedule patient for weekly CBC(?TX) X 2 weeks, beginning next week. Patient has port. 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 HPI: The patient is a 73-year-old female with a past medical history significant for hypertension and rheumatoid arthritis. Presented to the ED at [facility] on 07/10/2023 with complaints of nausea [...] represent metastatic disease. She was transferred to [facility] for gynecologic oncology surgery. Underwent diagnostic laparoscopy [...] within the recent abdominal fluid cytology specimen, [id number]. Confirmatory immunohistochemistry was performed on the cytology [...] healthy. SKIN: No jaundice. LABS: Latest Ref [facility] 12/27/2023 WBC 3.70 - 11.00 k/uL 3.49 [...] Abs Lymph 1.00 - 4.00 k/uL 1.27 Dillingham% % 10.6 Abs Dillingham <0.87 k/uL 0.37 Eosin% % 2.0 Abs [...] plan to talk with their PCP and competitive athlete about genetic counseling. Portions of this documentation were copied and pasted from previous office visit notes in order to provide a cohesive continuity of the history. The note has been reviewed and edited and updated as necessary. I spent a total of 15 minutes on the date of the service which included preparing to see the patient, [id number] patient care, completing clinical documentation, obtaining and/or reviewing separately obtained history, performing a medically appropriate examination, counseling and educating the patient/family/caregiver, ordering medications, tests, or procedures, and communicating results to the patient/family/caregiver. Jaren Mccoy DO documented in this encounter [facility] 12-27-2023 Nurse Note Est. Pt, discuss recent labs, tx tomorrow. Kelsy Storm LPN [facility] 12-27-2023 Nurse Note Est. Pt, discuss recent labs, tx tomorrow. Kelsy Storm LPN documented in this encounter [facility] 12-06-2023 History of Present illness Narrative Radiology Service Progress Note PATIENT NAME: Amirah Reed DATE OF SERVICE: December 06, 2023 [...] PATIENT PRESENTS WITH AN IMPLANTABLE OR ATTACHED HAMMERER HELPER: No RADIOLOGY DEPARTMENT: Ultrasound PERIPHERAL IV DATA: Not applicable SIGNED BY: Luz Holman RDMS RVT December 06, 2023 3:27 PM documented in this encounter [facility] 12-06-2023 Miscellaneous Notes Ultrasound of liver showed no sign of cancer. No sign of cirrhosis. documented in this encounter [facility] 12-06-2023 Progress note Formatting of t his note might be different from the original. Ultrasound of liver showed no sign of cancer. No sign of cirrhosis. [facility] 12-06-2023 Telephone encounter Note Spoke with patient and scheduled for later today. Debra Solorzano [facility] 12-06-2023 Miscellaneous Notes Spoke with patient [...] for ultrasound liver as soon as able. Jaren Mccoy DO documented in this encounter [facility] 12-06-2023 Telephone encounter Note Will inform pt per below. PSR's please schedule US. Pt will be in for treatment this AM. Thank you. [facility] 12-06-2023 Telephone encounter Note Chemistries yesterday demonstrated mild increase in LFTs and alkaline phosphatase. Ask her to discontinue Tylenol if taking it. Okay to proceed with chemotherapy today. However, please schedule for ultrasound liver as soon as able. 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 HPI: The patient is a 72-year-old female with a past medical history significant for hypertension and rheumatoid arthritis. Presented to the ED at [facility] on 07/10/2023 with complaints of nausea [...] represent metastatic disease. She was transferred to [facility] for gynecologic oncology surgery. Underwent diagnostic laparoscopy [...] within the recent abdominal fluid cytology specimen, [id number]. Confirmatory immunohistochemistry was performed on the cytology [...] healthy. SKIN: No jaundice. LABS: Latest Ref [facility] 12/05/2023 WBC 3.70 - 11.00 k/uL 6.62 [...] Abs Lymph 1.00 - 4.00 k/uL 1.51 Dillingham% % 7.3 Abs Dillingham <0.87 k/uL 0.48 Eosin% % 5.6 Abs [...] plan to talk with their PCP and competitive athlete about genetic counseling. Portions of this documentation were copied and pasted from previous office visit notes in order to provide a cohesive continuity of the history. The note has been reviewed and edited and updated as necessary. I spent a total of 20 minutes on the date of the service which included preparing to see the patient, [id number]-je-ildj patient care, completing clinical documentation, obtaining and/or reviewing separately obtained history, performing a medically appropriate examination, counseling and educating the patient/family/caregiver, ordering medications, tests, or procedures, communicating with other HCPs (not separately reported), and communicating results to the patient/family/caregiver. Jaren Mccoy DO documented in this encounter [facility] 12-05-2023 Nurse Note Est. Pt, discuss recent labs , treatment tomorrow. Kelsy Storm LPN [facility] 12-05-2023 Nurse Note Est. Pt, discuss recent labs , treatment tomorrow. Kelsy Storm LPN documented in this encounter [facility] 12-05-2023 History of Present illness Narrative [...] Sophia Herrera RN documented in this encounter [facility] 11-22-2023 Telephone encounter Note Schedule adjusted and patient informed [facility] Work Phone: 11-22-2023 Miscellaneous Notes Schedule adjusted and patient informed Discussed plan with Dr. Mccoy. Please move next cycle up the the week of December 04. Thank you. Brandy Ramirez APRN.AIRPLANE PATROL PILOT documented in this encounter [facility] 11-21-2023 Telephone encounter Note Discussed plan with Dr. Mccoy. Please move next cycle up the the week of December 04. Thank you. Brandy Ramirez APRN.AIRPLANE PATROL PILOT [facility] Work Phone: 11-18-2023 History of Present illness Narrative Chief Complaint Patient presents with: Established Patient HPI: Amirah Reed is a 72 year old female who presents here today for follow up surgery. Per Dr. Mccoy's previous note: H/o hypertension and rheumatoid arthritis. Presented to the ED at [facility] on 07/10/2023 with complaints of nausea [...] represent metastatic disease. She was transferred to [facility] for gynecologic oncology surgery. Underwent diagnostic laparoscopy [...] within the recent abdominal fluid cytology specimen, [id number]. Confirmatory immunohistochemistry was performed on the cytology [...] POD4 from discharge summary on 11/01/23. Attending Ambar Vilchis MD I'm well. Pt. here today [...] and edited as necessary for today's visit. Brandy Ramirez APRN.SYLVIE documented in this encounter [facility] 11-18-2023 History of Present illness Narrative Patient is here for IVAD port flush/blood draw per [facility] [place] protocol. IVAD is located in right upper [...] tolerated procedure well. documented in this encounter [facility] 11-11-2023 History of Present illness Narrative DATE OF SERVICE: 11/11/2023 PROBLEM: Amirah Reed presents for postop visit. SURGERY & [...] been determined by the performing laboratory within [facility] s [facility] [place] ([facility], [facility] [place], [facility], [facility], [facility], [facility], or [facility]) in a manner consistent with CLIA requirements. [...] FIGO STAGE FIGO Stage IIIA1(i SUBJECTIVE/INTERVAL HISTORY: Amirah Reed reports that she feels well. No fever [...] RA, po 96. ABDOMEN: Incision healing well. Irving in tact. Stoma looks fine LOWER EXTREMITIES: No pitting edema, no palpable cords, and no skin changes. PROCEDURE BP 194/79 Pulse 86 Temp (Src) 97.9 (Oral) Wt 116 lb (52.6kg) SpO2 96% Midline abdominal incision well approximated with dio. No redness, swelling, or foul drainage from incision. Irving removed. 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 -Postop restrictions reviewed -will resume chemo on 12/[address] Mccoy -follow up with Dr Partida after chemo completed -will eventually need referral to colorectal for colostomy take down Mayte Gonzalez APRN.SYLVIE documented in this encounter [facility] 11-02-2023 Miscellaneous Notes DISCHARGE CALL BACK Today's date: November 02, 2023 Notified of Pt discharge by: Epic notification Patient discharged on 11/01/23 from [facility] to Home Primary Cancer Diagnosis: Ovarian Cancer Admitting Diagnosis: surgery, see hospital course below. Discharge Summary/SBAR reviewed: Yes Handoff Discussed with Transitional Nut 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: N/A Psychosocial Risk Factors: None If patient discharged to SNF/Rehab Facility, phone call completed to reinforce discharge instructions and follow up: N/A HOSPITAL COURSE: Amirah Reed is a 72 year old with [...] to continue chemotherapy as scheduled with Dr. Lewis. She was discharged with a total of 28 days of post-operative anti-coagulation. Call Disposition: Patient will follow-up with [facility] for surgical follow-up. Patient is scheduled to see Dr. Mccoy on 11/18/23. Joy Bolaños RN documented in this encounter [facility] 10-26-2023 Miscellaneous Notes Called and spoke [...] Shannon John RN documented in this encounter [facility] 10-25-2023 Miscellaneous Notes Spoke to florecita to remind her of her surgery on TuesdayOctober 27 arrival time as 10:30 am and procedure time as 12:30p. I also let patient know not to eat or drink after midnight. Patient understood. Milagro Sena MA documented in this encounter [facility] 10-25-2023 Miscellaneous Notes Schedule updated. Daughter notified. Victorina Rebolledo LPN Yes, won't be getting treatment so can cancel that, but keep OV. Keep next treatment if already scheduled. Jaren Mccoy DO Patient is scheduled for a [facility] 10/28/2023. Okay to keep as scheduled 11/18/2023 lab/OV and treatment on 11/22/2023? Victorina Rebolledo LPN Rosa Pantoja called to cancel 10/27 lab, office visit and 10/31 treatment due to a surgery scheduled for patient on 10/27. documented in this encounter [facility] 10-14-2023 Miscellaneous Notes Spoke to Florecita this morning to let her know her PAT is scheduled for October 19 3pm at [facility] . Patient understood. Milagro Sena MA documented in this encounter [facility] 10-13-2023 History of Present illness Narrative Gynecologic Oncology Note [facility] Chief complaint: PreOp HPI: This is [...] Date 08/09/2023 End Date 01/03/2024 (Planned) Provider Jaren Mccoy, DO Chemotherapy CARBOplatin 400 mg in [...] Mother Cancer Mother Coronary Artery Disease Father [place] age 40's, age 60's; also smoked and alcoholic Mental illness Sister Renal Disease Sister Cancer Sister other (rheumatoid arthritis) Sister Coronary Artery Disease Brother [place] age 49, smoker, recovering alcoholic Breast Cancer [...] within the recent abdominal fluid cytology specimen, [id number]. Confirmatory immunohistochemistry was performed on the cytology [...] > 96 (10/06) - Multi-Cancer panel through [facility] was positive for a pathogenic variant in [...] in place. Anemia: - Repeat CBC preop Ambar Vilchis MD, MPH Gynecologic Oncologist Medical Decision [...] 5 - High documented in this encounter [facility] 10-07-2023 Miscellaneous Notes Recheck CBC on Tuesday. Victorina Rebolledo LPN Patient s identity has been confirmed by name and birthdate: Yes Call received from Radha from [employer] at 1049 AM to report an urgent value for platelets with a result of 18. Dr. Mccoy was notified of the result at 1050AM. 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 HPI: The patient is a 72-year-old female with a past medical history significant for hypertension and rheumatoid arthritis. Presented to the ED at [facility] on 07/10/2023 with complaints of nausea [...] represent metastatic disease. She was transferred to [facility] for gynecologic oncology surgery. Underwent diagnostic laparoscopy [...] within the recent abdominal fluid cytology specimen, [id number]. Confirmatory immunohistochemistry was performed on the cytology [...] Coloplast Assura one piece drainable pouch # 67045 OR - 2 boxes Coloplast Wooster wafer flat red #68915 - 1 box Coloplast Wooster drainable pouch red # 80815 - 1 box Small barrier rings # 7805 - 1 tube stomahesive paste # 2650 - 1 bottle stomahesive powder # 13093 - 1 box Coloplast Elastic Barrier strips # 119829 - 1 box skin barrier prep wipes [...] paclitaxel very well overall. -Multi-Cancer panel through [facility] was positive for a pathogenic variant in [...] plan to talk with their PCP and competitive athlete about genetic counseling. Portions of this documentation were copied and pasted from previous office visit notes in order to provide a cohesive continuity of the history. The note has been reviewed and edited and updated as necessary. Jaren Mccoy DO documented in this encounter [facility] 10-07-2023 Nurse Note Est. Pt, discuss recent labs, poss tx next Tuesday Kelsy Storm LPN documented in this encounter [facility] 10-07-2023 Miscellaneous Notes Patient name and was confirmed at initiation of discussion. Results Amirah Reed's Multi-Cancer panel through [facility] was positive for a pathogenic variant in [...] agreed with our plan. Rudy Do MS, [facility] Licensed, Certified Genetic Counselor [facility] CC: Dr. Nadine Costello INFORMATION TO BE MAILED TO PATIENT Copy of Encounter, Genetic Testing Results, Family letter for sharing genetic information documented in this encounter [facility] 10-04-2023 History of Present illness Narrative Radiology Service Progress Note PATIENT NAME: Amirah Reed DATE OF SERVICE: October 04, 2023 [...] PATIENT PRESENTS WITH AN IMPLANTABLE OR ATTACHED HAMMERER HELPER: No RADIOLOGY DEPARTMENT: CT; Exam(s) Completed: Chest Abdomen Pelvis PERIPHERAL IV DATA: power port accessed by [employer] SIGNED BY: RT Lexx(R) October 04, 2023 3:03 PM documented in this encounter [facility] 09-27-2023 Miscellaneous Notes Spoke to Rosa. Rosa has concerns about patient getting chemo and then seeing [facility] two days later. Patient is scheduled [...] understanding and was agreeable to plan. Joy Bolaños RN Daughter, Rosa called to speak to clinical regarding patient's schedule. Patient is scheduled for treatment on 10/10 - 2 days prior to appointment with specialist. Daughter is concerned that the treatment will deplete energy needed for appointment on 10/12. Please call Rosa and advise. documented in this encounter [facility] 09-21-2023 Miscellaneous Notes OV detailed report (AVS included) faxed to [facility] ostomy nurse. Victorina Rebolledo LPN I believe Victorina already wrote this order up. Jaren Mccoy DO Patrizia from [facility] stoma care is calling looking for an order from Dr Mccoy as patient daughter called her to schedule per last office visit with Dr Mccoy please fax referral to [phone] documented in this encounter [facility] 09-20-2023 History of Present illness Narrative [...] GI diet, adding protein, try Fairlife milk 1/30/24: Pt has had further weight loss. Fatigue improved 3-5th day of chemo - change in medication Cannot drink Ensure Orgain, Fairlife worked [facility] - did not like Colostomy - is [...] Coloplast Assura one piece drainable pouch # 28002 OR - 2 boxes Coloplast Clay wafer flat red #89024 - 1 box Coloplast Clay drainable pouch red # 71309 - 1 box Small barrier rings # 7805 - 1 tube stomahesive paste # 2650 - 1 bottle stomahesive powder # 40244 - 1 box Coloplast Elastic Barrier strips # 929200 - 1 box skin barrier prep wipes [...] 175 mg/m2 (Treatment Plan Recorded) INTRAVENOUS ONCE Jaren Mccoy DO 269.5 mg at 09/20/23 0855 CARBOplatin 400 mg in NaCl 0.9% 315 mL (PARAPLATIN) 400 mg INTRAVENOUS ONCE Jaren Mccoy DO NaCl 0.9% iv infusion 500-999 mL/hr INTRAVENOUS PRN Jaren Mccoy DO diphenhydrAMINE 50 mg injection (BENADRYL) 50 mg INTRAVENOUS PRN Jarne Mccoy DO hydrocortisone sodium succinate (PF) 100 mg injection (Solu-CORTEF) 100 mg INTRAVENOUS PRN Jaren Mccoy DO EPINEPHrine HCl (PF) 1 mg/mL (1 mL) 0.3 mg injection 0.3 mg INTRAMUSCULAR PRN Jaren Mccoy DO Need for Follow up: two months Referred/Supervised by: Dr. 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 HPI: The patient is a 72-year-old female with a past medical history significant for hypertension and rheumatoid arthritis. Presented to the ED at [facility] on 07/10/2023 with complaints of nausea [...] represent metastatic disease. She was transferred to [facility] for gynecologic oncology surgery. Underwent diagnostic laparoscopy [...] within the recent abdominal fluid cytology specimen, [id number]. Confirmatory immunohistochemistry was performed on the cytology [...] Coloplast Assura one piece drainable pouch # 62163 OR - 2 boxes Coloplast Clay wafer flat red #53627 - 1 box Coloplast Wo[place] drainable pouch red # 71339 - 1 box Small barrier rings # 7805 - 1 tube stomahesive paste # 2650 - 1 bottle stomahesive powder # 18773 - 1 box Coloplast Elastic Barrier strips # 423704 - 1 box skin barrier prep wipes [...] No jaundice or rash. No petechiae. NEUROLOGIC: patient carrier II-XII are grossly intact. No focal motor [...] Abs Lymph 1.00 - 4.00 k/uL 1.16 Dillingham% % 19.6 Abs Dillingham <0.87 k/uL 0.51 Eosin% % 3.8 Abs [...] which included preparing to see the patient, ozam-hc-ebcf patient care, completing clinical documentation, obtaining and/or reviewing separately obtained history, performing a medically appropriate examination, counseling and educating the patient/family/caregiver, ordering medications, tests, or procedures, communicating with other HCPs (not separately reported), and communicating results to the patient/family/caregiver. Jarne Mccoy DO documented in this encounter [facility] 09-14-2023 History of Present illness Narrative [facility] Consultation Note Genetic Counselor: Rudy Do MS, [facility] Patient: Amirah Reed Patient Name and confirmed at initiation of visit. Appointment occurred with audiovisual communication through [facility]. I have communicated my name and active licensure. The patient's identity and physical location were verified at the time of this visit. Either the patient or their legal real estate representative has been informed of the risks and benefits of -- and alternatives to -- treatment through a remote evaluation and consents to proceed with the evaluation remotely. HIGH LEVEL SUMMARY: The patient's personal history is potentially suggestive of a hereditary cancer syndrome. The patient provided informed consent for Multi-Cancer panel through [employer]. Results are expected in 1-2 weeks. IDENTIFICATION AND CHIEF COMPLAINT: Dr. Jaren Mccoy requested a consultation for genetic counseling and risk assessment for Amirah Reed, a 72 year old female, for discussion of her personal history of ovarian cancer. She presents to clinic today to discuss the possibility of a genetic predisposition to cancer, and to further clarify her risks, as well as her family members' risks for cancer. 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 [...] Mother Cancer Mother Coronary Artery Disease Father [place] age 40's, age 60's; also smoked and alcoholic Mental illness Sister Renal Disease Sister Cancer Sister other (rheumatoid arthritis) Sister Coronary Artery Disease Brother [place] age 49, smoker, recovering alcoholic Breast Cancer [...] appropriate standard National Comprehensive Cancer Network and [place] Cancer [employer] guidelines, with consideration of their [...] NTHL1, PALB2, PDGFRA, PMS2, POLD1, POLE, POT1, JSPHS5B, PTCH1, PTEN, RAD51C, RAD51D, RB1, RET, SDHA, SDHAF2, SDHB, SDHC, SDHD, SMAD4, SMARCA4, SMARCB1, SMARCE1, STK11, SUFU, IFVE137, TP53, TSC1, TSC2, and VHL The Multi-Cancer [...] to the presenting phenotype. We discussed that [facility] may contact the patient by text or email regarding billing. The patient should watch for this communication and respond promptly. The patient should contact [employer] directly with any billing questions (ph. [phone]). Per the patient's request, I will contact her by telephone to discuss these results. A follow up genetic counseling visit will be scheduled if requested. The patient was seen for a total of 35 minutes, greater than 50% of which was spent pxop-cm-ckck counseling. This plan is being carried out under the oversight of Dr. Stephanie Holman. This note will also be sent to the referring provider via the electronic medical record. Rudy Do MS, [facility] Licensed, Certified Genetic Counselor [facility] CC: Dr. Jaren Holman Tasia Rodrick documented in this encounter [facility] 09-02-2023 History of Present illness Narrative [...] Coloplast Assura one piece drainable pouch # 03793 OR - 2 boxes Coloplast [place] wafer flat red #08346 - 1 box Coloplast Wooster drainable pouch red # 45933 - 1 box Small barrier rings # 7805 - 1 tube stomahesive paste # 2650 - 1 bottle stomahesive powder # 03875 - 1 box Coloplast Elastic Barrier strips # 577575 - 1 box skin barrier prep wipes - 1 box adhesive removal wipes 1 Each 11 lisinopril (ZESTRIL) 20 mg tablet Take 1 tablet by mouth daily after breakfast. No current facility-administered medications for this visit. Need for Follow up: one week Referred/Supervised by: Dr. Nadine BOX Billing Type: Re-assess/15 min 2 units Billed Time: 30 minutes Signed by: Wendy Reydon, RD, RADHA documented in this encounter [facility] 08-30-2023 Miscellaneous Notes Patient has been [...] Olga Campa RN documented in this encounter [facility] 08-26-2023 Nurse Note Est. Pt, discuss recent labs, tx Tuesday Kelsy Storm LPN documented in this encounter [facility] 08-26-2023 History of Present illness Narrative Chief Complaint Patient presents with: Established Patient HPI: Amirah Reed is a 72 year old female who presents here today for evaluation for treatment on Tuesday. Per Dr. Mccoy's previous note: H/o hypertension and rheumatoid arthritis. Presented to the ED at [facility] on 07/10/2023 with complaints of nausea [...] represent metastatic disease. She was transferred to [facility] for gynecologic oncology surgery. Underwent diagnostic laparoscopy [...] within the recent abdominal fluid cytology specimen, [id number]. Confirmatory immunohistochemistry was performed on the cytology [...] 4.00 k/uL 0.96 (L) 0.44 (L) 1.33 Dillingham% % 8.6 0.3 10.1 Abs Dillingham <0.87 k/uL 0.71 <0.03 0.55 Eosin% % [...] and edited as necessary for today's visit. Brandy Ramirez APRN.AIRPLANE PATROL PILOT documented in this encounter [facility] 08-21-2023 History of Present illness Narrative No show for virtual visit. documented in this encounter [facility] 07-10-2023 History of Past i llness [...] of this encounter (statuses as of 08/21/2023) [facility]12[facility] History of Past illness Narrative* Problem [...] of this encounter (statuses as of 08/26/2023) [facility] History of Past illness Narrative* Problem [...] of this encounter (statuses as of 08/26/2023) [facility] History of Past illness Narrative* Problem [...] of this encounter (statuses as of 08/30/2023) [facility] History of Past illness Narrative* Problem [...] of this encounter (statuses as of 08/30/2023) [facility] History of Past illness Narrative* Problem [...] of this encounter (statuses as of 09/05/2023) [facility] History of Past illness Narrative* Problem [...] of this encounter (statuses as of 09/14/2023) [facility] of Past illness Narrative* Problem [...] of this encounter (statuses as of 09/16/2023) [facility] of Past illness Narrative* Problem [...] of this encounter (statuses as of 09/16/2023) [facility] of Past illness Narrative* Problem [...] of this encounter (statuses as of 09/20/2023) [facility] of Past illness Narrative* Problem [...] of this encounter (statuses as of 09/21/2023) [facility] of Past [facility] Narrative* Problem [...] of this encounter (statuses as of 09/21/2023) [facility] of Past illness Narrative* Problem [...] of this encounter (statuses as of 09/27/2023) [facility] [facility] History of Past illness Narrative* Problem [...] of this encounter (statuses as of 10/04/2023) [facility] History of Past illness Narrative* Problem [...] of this encounter (statuses as of 10/05/2023) [facility] History of Past illness Narrative* Problem [...] of this encounter (statuses as of 10/05/2023) [facility] History of Past illness Narrative* Problem [...] of this encounter (statuses as of 10/07/2023) [facility] History of Past illness Narrative* Problem [...] of this encounter (statuses as of 10/07/2023) [facility] History of Past illness Narrative* Problem [...] of this encounter (statuses as of 10/07/2023) [facility] History of Past illness Narrative* Problem [...] of this encounter (statuses as of 10/07/2023) [facility] History of Past illness Narrative* Problem [...] of this encounter (statuses as of 10/10/2023) [facility] History of Past illness Narrative* Problem [...] of this encounter (statuses as of 10/14/2023) [facility] History of Past illness Narrative* Problem [...] of this encounter (statuses as of 10/14/2023) [facility] History of Past illness Narrative* Problem [...] of this encounter (statuses as of 10/14/2023) [facility] History of Past illness Narrative* Problem [...] of this encounter (statuses as of 10/25/2023) [facility] History of Past illness Narrative* Problem [...] of this encounter (statuses as of 10/25/2023) [facility] History of Past illness Narrative* Problem [...] of this encounter (statuses as of 10/26/2023) [facility] History of Past illness Narrative* Problem [...] of this encounter (statuses as of 10/26/2023) [facility] History of Past illness Narrative* Problem [...] of this encounter (statuses as of 11/02/2023) [facility] History of Past illness Narrative* Problem [...] of this encounter (statuses as of 11/03/2023) [facility] History of Past illness Narrative* Problem [...] of this encounter (statuses as of 11/11/2023) [facility]12-13-2022 Instructions* Patient Instructions* Mark Kruse II, [...] by others. I have seen and examined Amirah Reed. I have discussed the case and the management of this patient's care with the Resident/Fellow, if applicable. I also have reviewed and agree with the assessment and plan as stated above and agree withall of its relevant components. Mark Kruse II, OD [facility] History of Present illness Narrative* Mark [...] by others. I have seen and examined Amirah Reed. I have discussed the case and the management of this patient's care with the Resident/Fellow, if applicable. I also have reviewed and agree with the assessment and plan as stated above and agree withall of its relevant components. 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, unspecified [facility] Diagnosis Onset Date Resolution Status Endometrial thickening on ultrasound acute Simple ovarian cyst acute [facility] Work Phone: evaluation note* Diagnosis Onset Date Resolution Status Endometrial thickening on ultrasound acute Simple ovarian cyst acute Endometrial thickening on ultrasound acute [facility] Work Phone: Evaluation note* Diagnosis Ovarian cancer on left (HCC)- Primary Malignant neoplasm of ovary Severe protein-calorie malnutrition (HCC) Other severe protein-calorie malnutrition [facility] Diagnosis Ovarian cancer on left (HCC)- Primary Malignant neoplasm of ovary [facility] Diagnosis Ovarian cancer on left (HCC)- Primary Malignant neoplasm of ovary [facility] Diagnosis Ovarian cancer on left (HCC)- Primary Malignant neoplasm of ovary [facility] Diagnosis Ovarian cancer on left (HCC) Malignant neoplasm of ovary [facility] Diagnosis Ovarian cancer on left (HCC) Malignant neoplasm of ovary [facility] Diagnosis Ovarian cancer on left (HCC)- Primary Malignant neoplasm of ovary Platelets decreased (HCC) Thrombocytopenia, unspecified [facility] Diagnosis Severe protein-calorie malnutrition (HCC)- Primary Other severe protein-calorie malnutrition Ovarian cancer on left (HCC) Malignant neoplasm of ovary [facility] Diagnosis Ovarian cancer on left (HCC)- Primary Malignant neoplasm of ovary [facility] Diagnosis Ovarian cancer on left (HCC)- Primary Malignant neoplasm of ovary [facility] Diagnosis Ovarian cancer on left (HCC) Malignant neoplasm of ovary [facility] Diagnosis Ovarian cancer on left (HCC) Malignant neoplasm of ovary [facility] Diagnosis Ovarian cancer on left (HCC)- Primary Malignant neoplasm of ovary Platelets decreased (HCC) Thrombocytopenia, unspecified Antineoplastic chemotherapy induced anemia documented [facility] Diagnosis Ovarian cancer on left (HCC)- Primary Malignant neoplasm of ovary [facility] Diagnosis Ovarian cancer on left (HCC)- Primary Malignant neoplasm of ovary [facility]* Diagnosis Preoperative examination- Primary Preoperative examination, unspecified Ovarian cancer on left (HCC) Malignant neoplasm of ovary Drug-induced anemia Other specified anemias documented [facility]* Diagnosis Thrombocytopenia (HCC)- Primary Thrombocytopenia, unspecified [facility]* Diagnosis Post-operative state- Primary Other postprocedural status Ovarian cancer, bilateral (HCC) [facility] Diagnosis Ovarian cancer, bilateral (HCC)- Primary Ovarian cancer on left (HCC) Malignant neoplasm of ovary Thrombocytopenia (HCC) Thrombocytopenia, unspecified [facility] Diagnosis Ovarian cancer on left (HCC)- Primary Malignant neoplasm of ovary Thrombocytopenia (HCC) Thrombocytopenia, unspecified Antineoplastic chemotherapy induced anemia [facility] Diagnosis Ovarian cancer on left (HCC) Malignant neoplasm of ovary [facility]* Diagnosis Ovarian cancer, bilateral (HCC)- Primary [facility] Diagnosis Elevated LFTs- Primary Other abnormal blood chemistry Elevated LFTs Other abnormal blood chemistry [facility] Diagnosis Ovarian cancer on left (HCC)- Primary Malignant neoplasm of ovary [facility]* Diagnosis Elevated LFTs Other abnormal blood chemistry [facility] Diagnosis Ovarian cancer on left (HCC)- Primary Malignant neoplasm of ovary [facility] Diagnosis 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 Ovarian cancer on left (HCC) Malignant neoplasm of ovary [facility] Diagnosis Ovarian cancer, bilateral (HCC)- Primary 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 Thrombocytopenia (HCC) Thrombocytopenia, unspecified [facility] Diagnosis Ovarian cancer on left (HCC) Malignant neoplasm of ovary Ovarian cancer, bilateral (HCC) 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 Thrombocytopenia (HCC) Thrombocytopenia, unspecified [facility]* Diagnosis Ovarian cancer on left (HCC) Malignant neoplasm of ovary Ovarian cancer, bilateral (HCC) 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 Thrombocytopenia (HCC) Thrombocytopenia, unspecified [facility]* Diagnosis Ovarian cancer, bilateral (HCC)- Primary [facility] Diagnosis Ovarian cancer on left (HCC) Malignant neoplasm of ovary Ovarian cancer, bilateral (HCC) 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 Thrombocytopenia (HCC) Thrombocytopenia, unspecified [facility] Diagnosis Ovarian cancer on left (HCC)- Primary Malignant neoplasm of ovary Ovarian cancer, bilateral (HCC) 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 Thrombocytopenia (HCC) Thrombocytopenia, unspecified Platelets decreased (HCC) Thrombocytopenia, unspecified [facility] Diagnosis Ovarian cancer on left (HCC)- Primary Malignant neoplasm of ovary Ovarian cancer, bilateral (HCC) 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 Thrombocytopenia (HCC) Thrombocytopenia, unspecified Platelets decreased (HCC) Thrombocytopenia, unspecified [facility] Diagnosis Ovarian cancer on left (HCC)- Primary Malignant neoplasm of ovary [facility]* Diagnosis Ovarian cancer, bilateral (HCC) [facility] Diagnosis Ovarian cancer on left (HCC)- Primary Malignant neoplasm of ovary Ovarian cancer, bilateral (HCC) 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 Thrombocytopenia (HCC) Thrombocytopenia, unspecified Platelets decreased (HCC) Thrombocytopenia, unspecified documented [facility]* Diagnosis Ovarian cancer on left (HCC)- Primary Malignant neoplasm of ovary Thrombocytopenia (HCC) Thrombocytopenia, unspecified 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 documented [facility]* Diagnosis Ovarian cancer, bilateral (HCC)- Primary [facility] Diagnosis Ovarian cancer on left (HCC)- Primary Malignant neoplasm of ovary documented [facility] Diagnosis Ovarian cancer on left (HCC)- Primary Malignant neoplasm of ovary BRIP1 gene mutation positive [facility] Diagnosis Ovarian cancer, bilateral (HCC) documented [facility] Diagnosis Ovarian cancer on left (HCC) Malignant neoplasm of ovary documented [facility] Diagnosis Ovarian cancer on left (HCC) Malignant neoplasm of ovary Preop examination Preoperative examination, unspecified Platelets decreased (HCC) Thrombocytopenia, unspecified Severe protein-calorie malnutrition (HCC) Other severe protein-calorie malnutrition 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, involving unspecified site (HCC) Chronic hypertension Ovarian cancer, bilateral (HCC)- Primary BRIP1 gene mutation positive documented [facility] this [facility] Diagnosis Ovarian cancer on left (HCC) Malignant neoplasm of ovary Preop examination Preoperative examination, unspecified Platelets decreased (HCC) Thrombocytopenia, unspecified Severe protein-calorie malnutrition (HCC) Other severe protein-calorie malnutrition 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, involving unspecified site (HCC) Chronic hypertension Ovarian cancer, bilateral (HCC)- Primary [facility]* Diagnosis Ovarian cancer on left (HCC) [...] Unspecified deficiency anemia [facility] Diagnosis Ovarian cancer on left (HCC) [...] Unspecified deficiency anemia [facility]* Diagnosis Ovarian cancer on left (HCC) Malignant neoplasm of ovary Preop examination Preoperative examination, unspecified Platelets decreased (HCC) Thrombocytopenia, unspecified Severe protein-calorie malnutrition (HCC) Other severe protein-calorie malnutrition 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, involving unspecified site (HCC) Chronic hypertension Anemia, unspecified type- Primary documented [facility] this [facility] Diagnosis Ovarian cancer on left (HCC) [...] Anemia, unspecified type [facility] Diagnosis Ovarian cancer on left (HCC) Malignant neoplasm of ovary Preop examination Preoperative examination, unspecified Platelets decreased (HCC) Thrombocytopenia, unspecified Severe protein-calorie malnutrition (HCC) Other severe protein-calorie malnutrition 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, involving unspecified site (HCC) Chronic hypertension Ovarian cancer, bilateral (HCC) BRIP1 gene mutation positive documented [facility] this encounter [facility] Diagnosis Ovarian cancer on left (HCC) [...] (HCC) Thrombocytopenia, unspecified [facility] Diagnosis Ovarian cancer on left (HCC) [...] (HCC) Thrombocytopenia, unspecified [facility] Diagnosis Ovarian cancer on left (HCC) Malignant neoplasm of ovary Preop examination Preoperative examination, unspecified Platelets decreased (HCC) Thrombocytopenia, unspecified Severe protein-calorie malnutrition (HCC) Other severe protein-calorie malnutrition 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, involving unspecified site (HCC) Chronic hypertension Attention to colostomy (HCC)- Primary Attention to colostomy [facility] Diagnosis Ovarian cancer on left (HCC) [...] (HCC) Thrombocytopenia, unspecified [facility] Diagnosis Ovarian cancer on left (HCC) [...] Attention to colostomy [facility] Diagnosis Ovarian cancer on left (HCC) [...] in today's visit. [facility] Diagnosis Ovarian cancer on left [...] Attention to colostomy [facility] Diagnosis Ovarian cancer on left (HCC) [...] Anemia, unspecified type documented in this encounter [facility] note* Diagnosis Ovarian cancer on left (HCC) [...] (HCC) Thrombocytopenia, unspecified documented in this encounter [facility] note* Diagnosis Ovarian cancer on left (HCC) [...] (HCC) Thrombocytopenia, unspecified documented in this encounter [facility] note* Diagnosis Ovarian cancer on left (HCC) [...] Attention to colostomy documented in this encounter [facility] note* Diagnosis Ovarian cancer on left (HCC) [...] neoplasm of ovary documented in this encounter [facility] note* Diagnosis Ovarian cancer on left (HCC) [...] bilateral (HCC)- Primary [facility] Diagnosis Ovarian cancer on left (HCC) [...] abnormal tumor markers [facility] Diagnosis Ovarian cancer on left (HCC) [...] (HCC) Thrombocytopenia, unspecified [facility] Diagnosis Ovarian cancer on left (HCC) [...] (HCC) Thrombocytopenia, unspecified documented in this encounter [facility] note* Diagnosis Ovarian cancer on left (HCC) [...] bilateral (HCC)- Primary documented in this encounter [facility] note* Diagnosis Ovarian cancer on left (HCC) [...] bilateral (HCC)- Primary documented in this encounter [facility] note* Diagnosis Ovarian cancer on left (HCC) [...] chemotherapy induced anemia [facility] Diagnosis Ovarian cancer on left (HCC) [...] chemotherapy induced anemia documented in this encounter [facility] note* Diagnosis Ovarian cancer on left (HCC) [...] Attention to colostomy documented in this encounter [facility] note* Diagnosis Ovarian cancer on left (HCC) [...] Attention to colostomy [facility] Diagnosis Ovarian cancer on left (HCC) [...] Attention to colostomy [facility] Diagnosis Ovarian cancer on left (HCC) [...] Attention to colostomy documented in this encounter [facility] note* Diagnosis Ovarian cancer on left (HCC) [...] Attention to colostomy [facility] Diagnosis Ovarian cancer on left (HCC) [...] colostomy * Assessment & Plan Note - Rylee Valerio APRN.CNP - 08/27/2024 10:53 AM EST Associated Problem(s): GERD (gastroesophageal reflux disease) PPI take morning of surgery * Assessment & Plan Note - Rylee Valerio APRN.CNP - 08/27/2024 7:44 AM EST Associated Problem(s): Rheumatoid arthritis without rheumatoid factor, unspecified site (HCC) Mild per patient * Assessment & Plan Note - Rylee Valerio APRN.CNP - 08/27/2024 7:43 AM EST Associated Problem(s): Platelets decreased (HCC) Platelet Count 150 - 400 k/uL 175 114 Low [address] Mccoy * Assessment & Plan Note - Rylee Valerio APRN.CNP - 08/27/2024 7:43 AM EST Associated Problem(s): Anemia due to antineoplastic chemotherapy H&H 9.3/27.5 August 03, 2023 CBC pending * Assessment & Plan Note - Rylee Valerio APRN.CNP - 08/27/2024 7:42 AM EST Associated Problem(s): Attention to colostomy (HCC) Surgery scheduled for September 04, 2024 * Assessment & Plan Note - Rylee Valerio APRN.CNP - 08/27/2024 7:37 AM EST Associated Problem(s): Chronic hypertension Lisinopril hydrochlorothiazide instructed to hold day of surgery Patient states it is always elevated at doctor visits * Assessment & Plan Note - Rylee Valerio APRN.CNP - 08/27/2024 7:36 AM EST Associated Problem(s): Preop examination Patient has the following medical conditions which may affect leslie-operative course addressed in assessment and plan today. [facility] Ovarian cancer on left [...] Attention to colostomy [facility] Diagnosis Ovarian cancer on left (HCC) [...] Attention to colostomy [facility] Diagnosis Ovarian cancer on left (HCC) [...] bilateral (HCC)- Primary documented in this encounter [facility] note* Diagnosis Ovarian cancer on left (HCC) [...] Anemia, unspecified type documented in this encounter [facility] note* Diagnosis Ovarian cancer on left (HCC) [...] of both eyes documented in this encounter [facility] note* Diagnosis Ovarian cancer on left (HCC) [...] bilateral (HCC)- Primary [facility] Diagnosis Ovarian cancer on left (HCC) [...] chemotherapy induced anemia [facility] Diagnosis Ovarian cancer on left (HCC) [...] Anemia, unspecified type documented in this encounter [facility] note* Diagnosis Ovarian cancer on left (HCC) [...] cancer, bilateral (HCC) documented in this encounter [facility] note* Diagnosis Ovarian cancer on left (HCC) [...] Anemia, unspecified type [facility] Diagnosis Ovarian cancer on left (HCC) [...] gene mutation positive [facility] Diagnosis Ovarian cancer on left (HCC) [...] bilateral (HCC)- Primary [facility] Diagnosis Ovarian cancer on left (HCC) [...] Anemia, unspecified type [facility] Diagnosis Ovarian cancer on left (HCC) [...] bilateral (HCC)- Primary documented in this encounter [facility] note* Diagnosis Ovarian cancer on left (HCC) [...] chemotherapy induced anemia documented in this encounter [facility] note* Diagnosis Ovarian cancer on left (HCC) [...] Anemia, unspecified type [facility] Diagnosis Ovarian cancer on left (HCC) [...] neoplasm of ovary [facility] Diagnosis Ovarian cancer on left (HCC) [...] bilateral (HCC)- Primary [facility] Diagnosis Ovarian cancer on left (HCC) [...] neoplasm of ovary [facility] Diagnosis Ovarian cancer on left (HCC) [...] neoplasm of ovary [facility] Diagnosis Ovarian cancer on left (HCC) [...] neoplasm of ovary [facility] Diagnosis Ovarian cancer on left (HCC) [...] neoplasm of ovary [facility] Diagnosis Ovarian cancer on left (HCC) [...] bilateral (HCC)- Primary documented in this encounter [facility] note* Diagnosis Ovarian cancer on left (HCC) [...] neoplasm of ovary documented in this encounter [facility] note* Diagnosis Ovarian cancer on left (HCC) [...] cancer, bilateral (HCC) [facility] Diagnosis Ovarian cancer on left (HCC) [...] Anemia, unspecified type [facility] Diagnosis Ovarian cancer on left (HCC) [...] Anemia, unspecified type documented in this encounter [facility] note* Diagnosis Ovarian cancer on left (HCC) [...] deficiency anemia, unspecified [facility] Diagnosis Ovarian cancer on left (HCC) [...] deficiency anemia, unspecified [facility] Diagnosis Ovarian cancer on left (HCC) [...] to liver (HCC) documented in this encounter [facility] note* Diagnosis Ovarian cancer on left (HCC) [...] bilateral (HCC)- Primary documented in this encounter [facility] note* Diagnosis Ovarian cancer on left (HCC) [...] Anemia, unspecified type [facility] Diagnosis Ovarian cancer on left (HCC) [...] Primary Counseling NOS documented in this encounter [facility] note* Diagnosis Ovarian cancer on left (HCC) [...] neoplasm of ovary documented in this encounter [facility] note* Diagnosis Ovarian cancer on left (HCC) [...] Anemia, unspecified type [facility] Diagnosis Ovarian cancer on left (HCC) [...] neoplasm of ovary documented in this encounter [facility] Discharge instructions Additional Instructions Avoid fatty foods, fried foods, and greasy foods as this may exacerbate your pain.[facility] Work Phone: Reason for referral (narrative)* Diagnostic Procedure Only (Urgent) - Closed Specialty Diagnoses / Procedures Referred By Contac t Referred To Contact US IMAGING Diagnoses Elevated LFTs Procedures US ABD RIGHT UPPER QUADRANT US ABDOMINAL REAL TIME W/IMAGE LIMITED Jaren Mccoy DO [address] [place] [address] [place] [address] Referral ID Status Reason Start Date Expiration Date V isits Requested Visits Authorized [id number] Closed Auto-Generate d Referral 12/06/2023 01/04/2025 1 1 [facility] for referral (narrative)* Diagnostic Procedure Only (Urgent) - Closed Specialty Diagnoses / Procedures Referred By Contac t Referred To Contact US IMAGING Diagnoses Elevated LFTs Procedures US ABD RIGHT UPPER QUADRANT US ABDOMINAL REAL TIME W/IMAGE LIMITED Jaren Mccoy DO [address] [place] [address] [place] [address] Referral ID Status Reason Start Date Expiration Date V isits Requested Visits Authorized [id number] Closed Auto-Generate d Referral 12/06/2023 01/04/2025 1 1 [facility] for referral (narrative)* Diagnostic Procedure Only (Routine) - Authorized Specialty Diagnoses / Procedures Referred By Contac t Referred To Contact XR IMAGING Diagnoses Attention to colostomy (HCC) Procedures XR COLON SINGLE CONTRAST RADIOLOGIC EXAM COLON SINGLE CONTRAST STUDY Rohit Miles MD [address] [employer] [address] [address] [place] [address] Referral ID Status Reason Start Date Expiration Date Visits Requested Visits Authorized [id number] Authorized Auto-Generat ed Referral 08/10/2024 09/09/2025 1 1 [facility] for referral (narrative)* Diagnostic Procedure Only (Routine) - Closed Specialty Diagnoses / Procedures Referred By Contac t Referred To Contact XR IMAGING Diagnoses Attention to colostomy (HCC) Procedures XR COLON SINGLE CONTRAST RADIOLOGIC EXAM COLON SINGLE CONTRAST STUDY Rohit Miles MD [address] [employer] [place] [address] [place] [address] Referral ID Status Reason Start Date Expiration Date V isits Requested Visits Authorized [id number] Closed Auto-Generate d Referral 08/10/2024 09/09/2025 1 1 [facility] for visit Narrative* Diagnostic Procedure Only (Routine) - Closed Specialty Diagnoses / Procedures Referred By Contac t Referred To Contact XR IMAGING Diagnoses Attention to colostomy (HCC) Procedures XR COLON SINGLE CONTRAST RADIOLOGIC EXAM COLON SINGLE CONTRAST STUDY Rohit Miles MD [address] [address] [place] [address] Referral ID Status Reason Start Date Expiration Date V isits Requested Visits Authorized [id number] Closed Auto-Generate d Referral 08/10/2024 09/09/2025 1 1 [facility] for visit Narrative* MRI/CT (Routine) - Closed Specialty Diagnoses / Procedures Referred By Contac t Referred To Contact CT IMAGING Diagnoses Ovarian cancer, bilateral (HCC) Procedures CT CHEST W IVCON DIAGNOSTIC COMPUTED TOMOGRAPHY THORAX W/CONTRAST Jaren Mccoy, DO [address] [place] [address] Phone: tel: fax: [place] [address] Referral ID Status Reason Start Date Expiration Date V isits Requested Visits Authorized [id number] Closed Auto-Generate d Referral 02/25/2025 03/27/2026 1 1 [facility] Advance Directives No Advanced Directives Records Found Advance Directive Response Recorded Date/ Time Living Will Yes March 03 6 11:40pm Power of Account Assistant Yes March 03 016 11:40pm Advance Directive Response Recorded Date/ Time Name of Medical Power of Account Assistant clara draper December 02, 2022 5:06am Living Will Yes December 02, 2022 5 :06am Power of Account Assistant Yes December 02, 2022 5:06am Advance Directive Response Recorded Date/ Time Living Will No July 10 023 10:30am Power of Account Assistant No July 10, 2023 10:30am Advance Directive Response Recorded Date/ Time Living Will No July 10 023 11:30am Power of Account Assistant No July 10, 2023 11:30am Documents on File Type Date Recorded Patient Personnel Officer Expl anation Advance Directive(s) 10/28/2023 10:20 AM Documents on File Type Date Recorded Patient Personnel Officer Expl anation Advance Directive(s) 10/28/2023 10:20 AM Medications Administered Section Inactive Administered Medications - up to 3 most recent administrations Medication Order MAR Action Action Date Dose Rate Site PHENYLephrine 2.5 % 1 Drop (AK-DILATE, SAMEER-SYNEPHRINE) 1 Drop, BOTH EYES, DIRECTED, Starting on Tue07/06/22 at 1030, Until Tue07/06/22 at 2229, Administer for dilation PROTECT FROM LIGHT Given 07/06/2022 10:30 AM EST 1 Drop tropicamide 1 % 1 Drop (MYDRIACYL) 1 Drop, BOTH EYES, DIRECTED, Starting on Tue07/06/22 at 1030, Until Tue07/06/22 at 2229, Administer for dilation Given 07/06/2022 10:30 AM [...] Referral Specialty Diagnoses / Procedures Referred By Almaac t Referred To Contact CT IMAGING Diagnoses Ovarian cancer on left (HCC) Procedures CT ABD/PEL W IVCON CT ABD & PELVIS W/CONTRAST Jaren Mccoy, DO [address] [place] [address] [place] [address] Referral ID Status Reason Start Date Expiration Date Visits Requested Visits Authorized [id number] Pending Review Auto-Generat ed Referral 09/16/2023 10/15/2024 1 1 Specialty Diagnoses / Procedures Referred By Contac t Referred To Contact CT IMAGING Diagnoses Ovarian cancer on left (HCC) Procedures CT CHEST W IVCON DIAGNOSTIC COMPUTED TOMOGRAPHY THORAX W/CONTRAST Jaren Mccoy, DO [address] [place] [address] Ct Imaging [id number] Referral ID Status Reason Start Date Expiration Date Visits Requested Visits Authorized [id number] Pending Review Auto-Generat ed Referral 09/16/2023 10/15/2024 1 1 Specialty Diagnoses / Procedures Referred By Contac t Referred To Contact CT IMAGING Diagnoses Ovarian cancer, bilateral (HCC) Procedures CT ABD/PEL W IVCON CT ABD & PELVIS W/CONTRAST Jaren Mccoy, DO [address] [place] [address] Ct Imaging [id number] Referral ID Status Reason Start Date Expiration Date Visits Requested Visits Authorized [id number] Authorized Auto-Generat ed Referral 01/16/2024 02/14/2025 1 1 Specialty Diagnoses / Procedures Referred By Contac t Referred To Contact CT IMAGING Diagnoses Ovarian cancer, bilateral (HCC) Procedures CT CHEST W IVCON DIAGNOSTIC COMPUTED TOMOGRAPHY THORAX W/CONTRAST Jaren Mccoy, DO [address] [place] [address] Ct Imaging [id number] Referral ID Status Reason Start Date Expiration Date Visits Requested Visits Authorized [id number] Authorized Auto-Generat ed Referral 01/16/2024 02/14/2025 1 1 Specialty Diagnoses / Procedures Referred By Contac t Referred To Contact Colon and Rectal Surgery Diagnoses Ovarian cancer on left (HCC) Procedures CONSULT TO COLO-RECTAL SURGERY OFFICE/OUTPATIENT NEW HIGH MDM 60 MINUTES Jaren Mccoy, DO [address] [place] [address] Referral ID Status Reason Start Date Expiration Date Visits Requested Visits Authorized [id number] Authorized PCP Requested Referral 02/06/2024 02/05/2025 1 [...] or prosecute any alcohol or drug abuse patient.[facility] the event this information is protected by the Federal Confidentiality of Alcohol and Drug Abuse Patient Records regulations: The Federal rules restrict any use of the information to criminally investigate or prosecute any alcohol or drug abuse patient.[facility] the event this information is protected by the Federal Confidentiality of Alcohol and Drug Abuse Patient Records regulations: The Federal rules restrict any use of the information to criminally investigate or prosecute any alcohol or drug abuse patient.[facility] the event this information is protected by the Federal Confidentiality of Alcohol and Drug Abuse Patient Records regulations: The Federal rules restrict any use of the information to criminally investigate or prosecute any alcohol or drug abuse patient.[facility] the event this information is protected by the Federal Confidentiality of Alcohol and Drug Abuse Patient Records regulations: The Federal rules restrict any use of the information to criminally investigate or prosecute any alcohol or drug abuse patient.[facility] the event this information is protected by the Federal Confidentiality of Alcohol and Drug Abuse Patient Records regulations: The Federal rules restrict any use of the information to criminally investigate or prosecute any alcohol or drug abuse patient.[facility] the event this information is protected by the Federal Confidentiality of Alcohol and Drug Abuse Patient Records regulations: The Federal rules restrict any use of the information to criminally investigate or prosecute any alcohol or drug abuse patient.[facility] the event this information is protected by the Federal Confidentiality of Alcohol and Drug Abuse Patient Records regulations: The Federal rules restrict any use of the information to criminally investigate or prosecute any alcohol or drug abuse patient.[facility] the event this information is protected by the Federal Confidentiality of Alcohol and Drug Abuse Patient Records regulations: The Federal rules restrict any use of the information to criminally investigate or prosecute any alcohol or drug abuse patient.[facility] the event this information is protected by the Federal Confidentiality of Alcohol and Drug Abuse Patient Records regulations: The Federal rules restrict any use of the information to criminally investigate or prosecute any alcohol or drug abuse patient.[facility] the event this information is protected by the Federal Confidentiality of Alcohol and Drug Abuse Patient Records regulations: The Federal rules restrict any use of the information to criminally investigate or prosecute any alcohol or drug abuse patient.[facility] the event this information is protected by the Federal Confidentiality of Alcohol and Drug Abuse Patient Records regulations: The Federal rules restrict any use of the information to criminally investigate or prosecute any alcohol or drug abuse patient.[facility] the event this information is protected by the Federal Confidentiality of Alcohol and Drug Abuse Patient Records regulations: The Federal rules restrict any use of the information to criminally investigate or prosecute any alcohol or drug abuse patient.[facility] the event this information is protected by the Federal Confidentiality of Alcohol and Drug Abuse Patient Records regulations: The Federal rules restrict any use of the information to criminally investigate or prosecute any alcohol or drug abuse patient.[facility] the event this information is protected by the Federal Confidentiality of Alcohol and Drug Abuse Patient Records regulations: The Federal rules restrict any use of the information to criminally investigate or prosecute any alcohol or drug abuse patient.[facility] the event this information is protected by the Federal Confidentiality of Alcohol and Drug Abuse Patient Records regulations: The Federal rules restrict any use of the information to criminally investigate or prosecute any alcohol or drug abuse patient.[facility] the event this information is protected by the Federal Confidentiality of Alcohol and Drug Abuse Patient Records regulations: The Federal rules restrict any use of the information to criminally investigate or prosecute any alcohol or drug abuse patient.[facility] the event this information is protected by the Federal Confidentiality of Alcohol and Drug Abuse Patient Records regulations: The Federal rules restrict any use of the information to criminally investigate or prosecute any alcohol or drug abuse patient.[facility] the event this information is protected by the Federal Confidentiality of Alcohol and Drug Abuse Patient Records regulations: The Federal rules restrict any use of the information to criminally investigate or prosecute any alcohol or drug abuse patient.[facility] the event this information is protected by the Federal Confidentiality of Alcohol and Drug Abuse Patient Records regulations: The Federal rules restrict any use of the information to criminally investigate or prosecute any alcohol or drug abuse patient.[facility] the event this information is protected by the Federal Confidentiality of Alcohol and Drug Abuse Patient Records regulations: The Federal rules restrict any use of the information to criminally investigate or prosecute any alcohol or drug abuse patient.[facility] the event this information is protected by the Federal Confidentiality of Alcohol and Drug Abuse Patient Records regulations: The Federal rules restrict any use of the information to criminally investigate or prosecute any alcohol or drug abuse patient.[facility] the event this information is protected by the Federal Confidentiality of Alcohol and Drug Abuse Patient Records regulations: The Federal rules restrict any use of the information to criminally investigate or prosecute any alcohol or drug abuse patient.[facility] the event this information is protected by the Federal Confidentiality of Alcohol and Drug Abuse Patient Records regulations: The Federal rules restrict any use of the information to criminally investigate or prosecute any alcohol or drug abuse patient.[facility] the event this information is protected by the Federal Confidentiality of Alcohol and Drug Abuse Patient Records regulations: The Federal rules restrict any use of the information to criminally investigate or prosecute any alcohol or drug abuse patient.[facility] the event this information is protected by the Federal Confidentiality of Alcohol and Drug Abuse Patient Records regulations: The Federal rules restrict any use of the information to criminally investigate or prosecute any alcohol or drug abuse patient.[facility] the event this information is protected by the Federal Confidentiality of Alcohol and Drug Abuse Patient Records regulations: The Federal rules restrict any use of the information to criminally investigate or prosecute any alcohol or drug abuse patient.[facility] the event this information is protected by the Federal Confidentiality of Alcohol and Drug Abuse Patient Records regulations: The Federal rules restrict any use of the information to criminally investigate or prosecute any alcohol or drug abuse patient.[facility] the event this information is protected by the Federal Confidentiality of Alcohol and Drug Abuse Patient Records regulations: The Federal rules restrict any use of the information to criminally investigate or prosecute any alcohol or drug abuse patient.[facility] the event this information is protected by the Federal Confidentiality of Alcohol and Drug Abuse Patient Records regulations: The Federal rules restrict any use of the information to criminally investigate or prosecute any alcohol or drug abuse patient.[facility] Hospital[facility] the event this information is protected by the Federal Confidentiality of Alcohol and Drug Abuse Patient Records regulations: The Federal rules restrict any use of the information to criminally investigate or prosecute any alcohol or drug abuse patient.[facility] the event this information is protected by the Federal Confidentiality of Alcohol and Drug Abuse Patient Records regulations: The Federal rules restrict any use of the information to criminally investigate or prosecute any alcohol or drug abuse patient.[facility] HospitalIn the event this information is protected by the Federal Confidentiality of Alcohol and Drug Abuse Patient Records regulations: The Federal rules restrict any use of the information to criminally investigate or prosecute any alcohol or drug abuse patient.[facility] HospitalIn the event this information is protected by the Federal Confidentiality of Alcohol and Drug Abuse Patient Records regulations: The Federal rules restrict any use of the information to criminally investigate or prosecute any alcohol or drug abuse patient.[facility] Hospital[facility] the event this information is protected by the Federal Confidentiality of Alcohol and Drug Abuse Patient Records regulations: The Federal rules restrict any use of the information to criminally investigate or prosecute any alcohol or drug abuse patient.[facility] HospitalIn the event this information is protected by the Federal Confidentiality of Alcohol and Drug Abuse Patient Records regulations: The Federal rules restrict any use of the information to criminally investigate or prosecute any alcohol or drug abuse patient.[facility] HospitalIn the event this information is protected by the Federal Confidentiality of Alcohol and Drug Abuse Patient Records regulations: The Federal rules restrict any use of the information to criminally investigate or prosecute any alcohol or drug abuse patient.[facility] HospitalIn the event this information is protected by the Federal Confidentiality of Alcohol and Drug Abuse Patient Records regulations: The Federal rules restrict any use of the information to criminally investigate or prosecute any alcohol or drug abuse patient.[facility] HospitalIn the event this information is protected by the Federal Confidentiality of Alcohol and Drug Abuse Patient Records regulations: The Federal rules restrict any use of the information to criminally investigate or prosecute any alcohol or drug abuse patient.[facility] HospitalIn the event this information is protected by the Federal Confidentiality of Alcohol and Drug Abuse Patient Records regulations: The Federal rules restrict any use of the information to criminally investigate or prosecute any alcohol or drug abuse patient.[facility] HospitalIn the event this information is protected by the Federal Confidentiality of Alcohol and Drug Abuse Patient Records regulations: The Federal rules restrict any use of the information to criminally investigate or prosecute any alcohol or drug abuse patient.[facility]In the event this information is protected by the Federal Confidentiality of Alcohol and Drug Abuse Patient Records regulations: The Federal rules restrict any use of the information to criminally investigate or prosecute any alcohol or drug abuse patient.[facility] the event this information is protected by the Federal Confidentiality of Alcohol and Drug Abuse Patient Records regulations: The Federal rules restrict any use of the information to criminally investigate or prosecute any alcohol or drug abuse patient.[facility] HospitalIn the event this information is protected by the Federal Confidentiality of Alcohol and Drug Abuse Patient Records regulations: The Federal rules restrict any use of the information to criminally investigate or prosecute any alcohol or drug abuse patient.[facility] HospitalIn the event this information is protected by the Federal Confidentiality of Alcohol and Drug Abuse Patient Records regulations: The Federal rules restrict any use of the information to criminally investigate or prosecute any alcohol or drug abuse patient.[facility] HospitalIn the event this information is protected by the Federal Confidentiality of Alcohol and Drug Abuse Patient Records regulations: The Federal rules restrict any use of the information to criminally investigate or prosecute any alcohol or drug abuse patient.[facility] HospitalIn the event this information is protected by the Federal Confidentiality of Alcohol and Drug Abuse Patient Records regulations: The Federal rules restrict any use of the information to criminally investigate or prosecute any alcohol or drug abuse patient.[facility] HospitalIn the event this information is protected by the Federal Confidentiality of Alcohol and Drug Abuse Patient Records regulations: The Federal rules restrict any use of the information to criminally investigate or prosecute any alcohol or drug abuse patient.[facility] HospitalIn the event this information is protected by the Federal Confidentiality of Alcohol and Drug Abuse Patient Records regulations: The Federal rules restrict any use of the information to criminally investigate or prosecute any alcohol or drug abuse patient.[facility] HospitalIn the event this information is protected by the Federal Confidentiality of Alcohol and Drug Abuse Patient Records regulations: The Federal rules restrict any use of the information to criminally investigate or prosecute any alcohol or drug abuse patient.[facility] HospitalIn the event this information is protected by the Federal Confidentiality of Alcohol and Drug Abuse Patient Records regulations: The Federal rules restrict any use of the information to criminally investigate or prosecute any alcohol or drug abuse patient.[facility] HospitalIn the event this information is protected by the Federal Confidentiality of Alcohol and Drug Abuse Patient Records regulations: The Federal rules restrict any use of the information to criminally investigate or prosecute any alcohol or drug abuse patient.[facility] HospitalIn the event this information is protected by the Federal Confidentiality of Alcohol and Drug Abuse Patient Records regulations: The Federal rules restrict any use of the information to criminally investigate or prosecute any alcohol or drug abuse patient.[facility] HospitalIn the event this information is protected by the Federal Confidentiality of Alcohol and Drug Abuse Patient Records regulations: The Federal rules restrict any use of the information to criminally investigate or prosecute any alcohol or drug abuse patient.[facility] HospitalIn the event this information is protected by the Federal Confidentiality of Alcohol and Drug Abuse Patient Records regulations: The Federal rules restrict any use of the information to criminally investigate or prosecute any alcohol or drug abuse patient.[facility] HospitalIn the event this information is protected by the Federal Confidentiality of Alcohol and Drug Abuse Patient Records regulations: The Federal rules restrict any use of the information to criminally investigate or prosecute any alcohol or drug abuse patient.[facility] HospitalIn the event this information is protected by the Federal Confidentiality of Alcohol and Drug Abuse Patient Records regulations: The Federal rules restrict any use of the information to criminally investigate or prosecute any alcohol or drug abuse patient.[facility] HospitalIn the event this information is protected by the Federal Confidentiality of Alcohol and Drug Abuse Patient Records regulations: The Federal rules restrict any use of the information to criminally investigate or prosecute any alcohol or drug abuse patient.[facility] HospitalIn the event this information is protected by the Federal Confidentiality of Alcohol and Drug Abuse Patient Records regulations: The Federal rules restrict any use of the information to criminally investigate or prosecute any alcohol or drug abuse patient.[facility] HospitalIn the event this information is protected by the Federal Confidentiality of Alcohol and Drug Abuse Patient Records regulations: The Federal rules restrict any use of the information to criminally investigate or prosecute any alcohol or drug abuse patient.[facility] HospitalIn the event this information is protected by the Federal Confidentiality of Alcohol and Drug Abuse Patient Records regulations: The Federal rules restrict any use of the information to criminally investigate or prosecute any alcohol or drug abuse patient.[facility] HospitalIn the event this information is protected by the Federal Confidentiality of Alcohol and Drug Abuse Patient Records regulations: The Federal rules restrict any use of the information to criminally investigate or prosecute any alcohol or drug abuse patient.[facility] HospitalIn the event this information is protected by the Federal Confidentiality of Alcohol and Drug Abuse Patient Records regulations: The Federal rules restrict any use of the information to criminally investigate or prosecute any alcohol or drug abuse patient.[facility] HospitalIn the event this information is protected by the Federal Confidentiality of Alcohol and Drug Abuse Patient Records regulations: The Federal rules restrict any use of the information to criminally investigate or prosecute any alcohol or drug abuse patient.[facility] HospitalIn the event this information is protected by the Federal Confidentiality of Alcohol and Drug Abuse Patient Records regulations: The Federal rules restrict any use of the information to criminally investigate or prosecute any alcohol or drug abuse patient.[facility] HospitalIn the event this information is protected by the Federal Confidentiality of Alcohol and Drug Abuse Patient Records regulations: The Federal rules restrict any use of the information to criminally investigate or prosecute any alcohol or drug abuse patient.[facility] HospitalIn the event this information is protected by the Federal Confidentiality of Alcohol and Drug Abuse Patient Records regulations: The Federal rules restrict any use of the information to criminally investigate or prosecute any alcohol or drug abuse patient.[facility] HospitalIn the event this information is protected by the Federal Confidentiality of Alcohol and Drug Abuse Patient Records regulations: The Federal rules restrict any use of the information to criminally investigate or prosecute any alcohol or drug abuse patient.[facility] HospitalIn the event this information is protected by the Federal Confidentiality of Alcohol and Drug Abuse Patient Records regulations: The Federal rules restrict any use of the information to criminally investigate or prosecute any alcohol or drug abuse patient.[facility] HospitalIn the event this information is protected by the Federal Confidentiality of Alcohol and Drug Abuse Patient Records regulations: The Federal rules restrict any use of the information to criminally investigate or prosecute any alcohol or drug abuse patient.[facility] HospitalIn the event this information is protected by the Federal Confidentiality of Alcohol and Drug Abuse Patient Records regulations: The Federal rules restrict any use of the information to criminally investigate or prosecute any alcohol or drug abuse patient.[facility] HospitalIn the event this information is protected by the Federal Confidentiality of Alcohol and Drug Abuse Patient Records regulations: The Federal rules restrict any use of the information to criminally investigate or prosecute any alcohol or drug abuse patient.[facility] HospitalIn the event this information is protected by the Federal Confidentiality of Alcohol and Drug Abuse Patient Records regulations: The Federal rules restrict any use of the information to criminally investigate or prosecute any alcohol or drug abuse patient.[facility] HospitalIn the event this information is protected by the Federal Confidentiality of Alcohol and Drug Abuse Patient Records regulations: The Federal rules restrict any use of the information to criminally investigate or prosecute any alcohol or drug abuse patient.[facility] HospitalIn the event this information is protected by the Federal Confidentiality of Alcohol and Drug Abuse Patient Records regulations: The Federal rules restrict any use of the information to criminally investigate or prosecute any alcohol or drug abuse patient.[facility] HospitalIn the event this information is protected by the Federal Confidentiality of Alcohol and Drug Abuse Patient Records regulations: The Federal rules restrict any use of the information to criminally investigate or prosecute any alcohol or drug abuse patient.[facility] HospitalIn the event this information is protected by the Federal Confidentiality of Alcohol and Drug Abuse Patient Records regulations: The Federal rules restrict any use of the information to criminally investigate or prosecute any alcohol or drug abuse patient.[facility] HospitalIn the event this information is protected by the Federal Confidentiality of Alcohol and Drug Abuse Patient Records regulations: The Federal rules restrict any use of the information to criminally investigate or prosecute any alcohol or drug abuse patient.[facility] HospitalIn the event this information is protected by the Federal Confidentiality of Alcohol and Drug Abuse Patient Records regulations: The Federal rules restrict any use of the information to criminally investigate or prosecute any alcohol or drug abuse patient.[facility] HospitalIn the event this information is protected by the Federal Confidentiality of Alcohol and Drug Abuse Patient Records regulations: The Federal rules restrict any use of the information to criminally investigate or prosecute any alcohol or drug abuse patient.[facility] HospitalIn the event this information is protected by the Federal Confidentiality of Alcohol and Drug Abuse Patient Records regulations: The Federal rules restrict any use of the information to criminally investigate or prosecute any alcohol or drug abuse patient.[facility] HospitalIn the event this information is protected by the Federal Confidentiality of Alcohol and Drug Abuse Patient Records regulations: The Federal rules restrict any use of the information to criminally investigate or prosecute any alcohol or drug abuse patient.[facility] HospitalIn the event this information is protected by the Federal Confidentiality of Alcohol and Drug Abuse Patient Records regulations: The Federal rules restrict any use of the information to criminally investigate or prosecute any alcohol or drug abuse patient.[facility] HospitalIn the event this information is protected by the Federal Confidentiality of Alcohol and Drug Abuse Patient Records regulations: The Federal rules restrict any use of the information to criminally investigate or prosecute any alcohol or drug abuse patient.[facility] HospitalIn the event this information is protected by the Federal Confidentiality of Alcohol and Drug Abuse Patient Records regulations: The Federal rules restrict any use of the information to criminally investigate or prosecute any alcohol or drug abuse patient.[facility] HospitalIn the event this information is protected by the Federal Confidentiality of Alcohol and Drug Abuse Patient Records regulations: The Federal rules restrict any use of the information to criminally investigate or prosecute any alcohol or drug abuse patient.[facility] HospitalIn the event this information is protected by the Federal Confidentiality of Alcohol and Drug Abuse Patient Records regulations: The Federal rules restrict any use of the information to criminally investigate or prosecute any alcohol or drug abuse patient.[facility] HospitalIn the event this information is protected by the Federal Confidentiality of Alcohol and Drug Abuse Patient Records regulations: The Federal rules restrict any use of the information to criminally investigate or prosecute any alcohol or drug abuse patient.[facility] HospitalIn the event this information is protected by the Federal Confidentiality of Alcohol and Drug Abuse Patient Records regulations: The Federal rules restrict any use of the information to criminally investigate or prosecute any alcohol or drug abuse patient.[facility] HospitalIn the event this information is protected by the Federal Confidentiality of Alcohol and Drug Abuse Patient Records regulations: The Federal rules restrict any use of the information to criminally investigate or prosecute any alcohol or drug abuse patient.[facility] HospitalIn the event this information is protected by the Federal Confidentiality of Alcohol and Drug Abuse Patient Records regulations: The Federal rules restrict any use of the information to criminally investigate or prosecute any alcohol or drug abuse patient.[facility] HospitalIn the event this information is protected by the Federal Confidentiality of Alcohol and Drug Abuse Patient Records regulations: The Federal rules restrict any use of the information to criminally investigate or prosecute any alcohol or drug abuse patient.[facility] HospitalIn the event this information is protected by the Federal Confidentiality of Alcohol and Drug Abuse Patient Records regulations: The Federal rules restrict any use of the information to criminally investigate or prosecute any alcohol or drug abuse patient.[facility] HospitalIn the event this information is protected by the Federal Confidentiality of Alcohol and Drug Abuse Patient Records regulations: The Federal rules restrict any use of the information to criminally investigate or prosecute any alcohol or drug abuse patient.[facility] HospitalIn the event this information is protected by the Federal Confidentiality of Alcohol and Drug Abuse Patient Records regulations: The Federal rules restrict any use of the information to criminally investigate or prosecute any alcohol or drug abuse patient.[facility] HospitalIn the event this information is protected by the Federal Confidentiality of Alcohol and Drug Abuse Patient Records regulations: The Federal rules restrict any use of the information to criminally investigate or prosecute any alcohol or drug abuse patient.[facility] HospitalIn the event this information is protected by the Federal Confidentiality of Alcohol and Drug Abuse Patient Records regulations: The Federal rules restrict any use of the information to criminally investigate or prosecute any alcohol or drug abuse patient.[facility] HospitalIn the event this information is protected by the Federal Confidentiality of Alcohol and Drug Abuse Patient Records regulations: The Federal rules restrict any use of the information to criminally investigate or prosecute any alcohol or drug abuse patient.[facility] HospitalIn the event this information is protected by the Federal Confidentiality of Alcohol and Drug Abuse Patient Records regulations: The Federal rules restrict any use of the information to criminally investigate or prosecute any alcohol or drug abuse patient.[facility] HospitalIn the event this information is protected by the Federal Confidentiality of Alcohol and Drug Abuse Patient Records regulations: The Federal rules restrict any use of the information to criminally investigate or prosecute any alcohol or drug abuse patient.[facility] HospitalIn the event this information is protected by the Federal Confidentiality of Alcohol and Drug Abuse Patient Records regulations: The Federal rules restrict any use of the information to criminally investigate or prosecute any alcohol or drug abuse patient.[facility] HospitalIn the event this information is protected by the Federal Confidentiality of Alcohol and Drug Abuse Patient Records regulations: The Federal rules restrict any use of the information to criminally investigate or prosecute any alcohol or drug abuse patient.[facility] HospitalIn the event this information is protected by the Federal Confidentiality of Alcohol and Drug Abuse Patient Records regulations: The Federal rules restrict any use of the information to criminally investigate or prosecute any alcohol or drug abuse patient.[facility] HospitalIn the event this information is protected by the Federal Confidentiality of Alcohol and Drug Abuse Patient Records regulations: The Federal rules restrict any use of the information to criminally investigate or prosecute any alcohol or drug abuse patient.[facility] HospitalIn the event this information is protected by the Federal Confidentiality of Alcohol and Drug Abuse Patient Records regulations: The Federal rules restrict any use of the information to criminally investigate or prosecute any alcohol or drug abuse patient.[facility] HospitalIn the event this information is protected by the Federal Confidentiality of Alcohol and Drug Abuse Patient Records regulations: The Federal rules restrict any use of the information to criminally investigate or prosecute any alcohol or drug abuse patient.[facility] HospitalIn the event this information is protected by the Federal Confidentiality of Alcohol and Drug Abuse Patient Records regulations: The Federal rules restrict any use of the information to criminally investigate or prosecute any alcohol or drug abuse patient.[facility] HospitalIn the event this information is protected by the Federal Confidentiality of Alcohol and Drug Abuse Patient Records regulations: The Federal rules restrict any use of the information to criminally investigate or prosecute any alcohol or drug abuse patient.[facility] HospitalIn the event this information is protected by the Federal Confidentiality of Alcohol and Drug Abuse Patient Records regulations: The Federal rules restrict any use of the information to criminally investigate or prosecute any alcohol or drug abuse patient.[facility] HospitalIn the event this information is protected by the Federal Confidentiality of Alcohol and Drug Abuse Patient Records regulations: The Federal rules restrict any use of the information to criminally investigate or prosecute any alcohol or drug abuse patient.[facility] HospitalIn the event this information is protected by the Federal Confidentiality of Alcohol and Drug Abuse Patient Records regulations: The Federal rules restrict any use of the information to criminally investigate or prosecute any alcohol or drug abuse patient.[facility] HospitalIn the event this information is protected by the Federal Confidentiality of Alcohol and Drug Abuse Patient Records regulations: The Federal rules restrict any use of the information to criminally investigate or prosecute any alcohol or drug abuse patient.[facility] HospitalIn the event this information is protected by the Federal Confidentiality of Alcohol and Drug Abuse Patient Records regulations: The Federal rules restrict any use of the information to criminally investigate or prosecute any alcohol or drug abuse patient.[facility] HospitalIn the event this information is protected by the Federal Confidentiality of Alcohol and Drug Abuse Patient Records regulations: The Federal rules restrict any use of the information to criminally investigate or prosecute any alcohol or drug abuse patient.[facility] HospitalIn the event this information is protected by the Federal Confidentiality of Alcohol and Drug Abuse Patient Records regulations: The Federal rules restrict any use of the information to criminally investigate or prosecute any alcohol or drug abuse patient.[facility] HospitalIn the event this information is protected by the Federal Confidentiality of Alcohol and Drug Abuse Patient Records regulations: The Federal rules restrict any use of the information to criminally investigate or prosecute any alcohol or drug abuse patient.[facility] HospitalIn the event this information is protected by the Federal Confidentiality of Alcohol and Drug Abuse Patient Records regulations: The Federal rules restrict any use of the information to criminally investigate or prosecute any alcohol or drug abuse patient.[facility] HospitalIn the event this information is protected by the Federal Confidentiality of Alcohol and Drug Abuse Patient Records regulations: The Federal rules restrict any use of the information to criminally investigate or prosecute any alcohol or drug abuse patient.[facility] HospitalIn the event this information is protected by the Federal Confidentiality of Alcohol and Drug Abuse Patient Records regulations: The Federal rules restrict any use of the information to criminally investigate or prosecute any alcohol or drug abuse patient.[facility] HospitalIn the event this information is protected by the Federal Confidentiality of Alcohol and Drug Abuse Patient Records regulations: The Federal rules restrict any use of the information to criminally investigate or prosecute any alcohol or drug abuse patient.[facility] HospitalIn the event this information is protected by the Federal Confidentiality of Alcohol and Drug Abuse Patient Records regulations: The Federal rules restrict any use of the information to criminally investigate or prosecute any alcohol or drug abuse patient.[facility] HospitalIn the event this information is protected by the Federal Confidentiality of Alcohol and Drug Abuse Patient Records regulations: The Federal rules restrict any use of the information to criminally investigate or prosecute any alcohol or drug abuse patient.[facility] HospitalIn the event this information is protected by the Federal Confidentiality of Alcohol and Drug Abuse Patient Records regulations: The Federal rules restrict any use of the information to criminally investigate or prosecute any alcohol or drug abuse patient.[facility] HospitalIn the event this information is protected by the Federal Confidentiality of Alcohol and Drug Abuse Patient Records regulations: The Federal rules restrict any use of the information to criminally investigate or prosecute any alcohol or drug abuse patient.[facility] HospitalIn the event this information is protected by the Federal Confidentiality of Alcohol and Drug Abuse Patient Records regulations: The Federal rules restrict any use of the information to criminally investigate or prosecute any alcohol or drug abuse patient.[facility] [facility]In the event this information is protected by the Federal Confidentiality of Alcohol and Drug Abuse Patient Records regulations: The Federal rules restrict any use of the information to criminally investigate or prosecute any alcohol or drug abuse patient.[facility] HospitalIn the event this information is protected by the Federal Confidentiality of Alcohol and Drug Abuse Patient Records regulations: The Federal rules restrict any use of the information to criminally investigate or prosecute any alcohol or drug abuse patient.[facility] HospitalIn the event this information is protected by the Federal Confidentiality of Alcohol and Drug Abuse Patient Records regulations: The Federal rules restrict any use of the information to criminally investigate or prosecute any alcohol or drug abuse patient.[facility] HospitalIn the event this information is protected by the Federal Confidentiality of Alcohol and Drug Abuse Patient Records regulations: The Federal rules restrict any use of the information to criminally investigate or prosecute any alcohol or drug abuse patient.[facility] HospitalIn the event this information is protected by the Federal Confidentiality of Alcohol and Drug Abuse Patient Records regulations: The Federal rules restrict any use of the information to criminally investigate or prosecute any alcohol or drug abuse patient.[facility] HospitalIn the event this information is protected by the Federal Confidentiality of Alcohol and Drug Abuse Patient Records regulations: The Federal rules restrict any use of the information to criminally investigate or prosecute any alcohol or drug abuse patient.[facility] HospitalIn the event this information is protected by the Federal Confidentiality of Alcohol and Drug Abuse Patient Records regulations: The Federal rules restrict any use of the information to criminally investigate or prosecute any alcohol or drug abuse patient.[facility] HospitalIn the event this information is protected by the Federal Confidentiality of Alcohol and Drug Abuse Patient Records regulations: The Federal rules restrict any use of the information to criminally investigate or prosecute any alcohol or drug abuse patient.[facility] HospitalIn the event this information is protected by the Federal Confidentiality of Alcohol and Drug Abuse Patient Records regulations: The Federal rules restrict any use of the information to criminally investigate or prosecute any alcohol or drug abuse patient.[facility] HospitalIn the event this information is protected by the Federal Confidentiality of Alcohol and Drug Abuse Patient Records regulations: The Federal rules restrict any use of the information to criminally investigate or prosecute any alcohol or drug abuse patient.[facility] HospitalIn the event this information is protected by the Federal Confidentiality of Alcohol and Drug Abuse Patient Records regulations: The Federal rules restrict any use of the information to criminally investigate or prosecute any alcohol or drug abuse patient.[facility] HospitalIn the event this information is protected by the Federal Confidentiality of Alcohol and Drug Abuse Patient Records regulations: The Federal rules restrict any use of the information to criminally investigate or prosecute any alcohol or drug abuse patient.[facility] HospitalIn the event this information is protected by the Federal Confidentiality of Alcohol and Drug Abuse Patient Records regulations: The Federal rules restrict any use of the information to criminally investigate or prosecute any alcohol or drug abuse patient.[facility] HospitalIn the event this information is protected by the Federal Confidentiality of Alcohol and Drug Abuse Patient Records regulations: The Federal rules restrict any use of the information to criminally investigate or prosecute any alcohol or drug abuse patient.[facility] HospitalIn the event this information is protected by the Federal Confidentiality of Alcohol and Drug Abuse Patient Records regulations: The Federal rules restrict any use of the information to criminally investigate or prosecute any alcohol or drug abuse patient.[facility] HospitalIn the event this information is protected by the Federal Confidentiality of Alcohol and Drug Abuse Patient Records regulations: The Federal rules restrict any use of the information to criminally investigate or prosecute any alcohol or drug abuse patient.[facility] HospitalIn the event this information is protected by the Federal Confidentiality of Alcohol and Drug Abuse Patient Records regulations: The Federal rules restrict any use of the information to criminally investigate or prosecute any alcohol or drug abuse patient.[facility] HospitalIn the event this information is protected by the Federal Confidentiality of Alcohol and Drug Abuse Patient Records regulations: The Federal rules restrict any use of the information to criminally investigate or prosecute any alcohol or drug abuse patient.[facility] HospitalIn the event this information is protected by the Federal Confidentiality of Alcohol and Drug Abuse Patient Records regulations: The Federal rules restrict any use of the information to criminally investigate or prosecute any alcohol or drug abuse patient.[facility] HospitalIn the event this information is protected by the Federal Confidentiality of Alcohol and Drug Abuse Patient Records regulations: The Federal rules restrict any use of the information to criminally investigate or prosecute any alcohol or drug abuse patient.[facility] HospitalIn the event this information is protected by the Federal Confidentiality of Alcohol and Drug Abuse Patient Records regulations: The Federal rules restrict any use of the information to criminally investigate or prosecute any alcohol or drug abuse patient.[facility] HospitalIn the event this information is protected by the Federal Confidentiality of Alcohol and Drug Abuse Patient Records regulations: The Federal rules restrict any use of the information to criminally investigate or prosecute any alcohol or drug abuse patient.[facility] HospitalIn the event this information is protected by the Federal Confidentiality of Alcohol and Drug Abuse Patient Records regulations: The Federal rules restrict any use of the information to criminally investigate or prosecute any alcohol or drug abuse patient.[facility] HospitalIn the event this information is protected by the Federal Confidentiality of Alcohol and Drug Abuse Patient Records regulations: The Federal rules restrict any use of the information to criminally investigate or prosecute any alcohol or drug abuse patient.[facility] HospitalIn the event this information is protected by the Federal Confidentiality of Alcohol and Drug Abuse Patient Records regulations: The Federal rules restrict any use of the information to criminally investigate or prosecute any alcohol or drug abuse patient.[facility] HospitalIn the event this information is protected by the Federal Confidentiality of Alcohol and Drug Abuse Patient Records regulations: The Federal rules restrict any use of the information to criminally investigate or prosecute any alcohol or drug abuse patient.[facility] HospitalIn the event this information is protected by the Federal Confidentiality of Alcohol and Drug Abuse Patient Records regulations: The Federal rules restrict any use of the information to criminally investigate or prosecute any alcohol or drug abuse patient.[facility] HospitalIn the event this information is protected by the Federal Confidentiality of Alcohol and Drug Abuse Patient Records regulations: The Federal rules restrict any use of the information to criminally investigate or prosecute any alcohol or drug abuse patient.[facility] HospitalIn the event this information is protected by the Federal Confidentiality of Alcohol and Drug Abuse Patient Records regulations: The Federal rules restrict any use of the information to criminally investigate or prosecute any alcohol or drug abuse patient.[facility] HospitalIn the event this information is protected by the Federal Confidentiality of Alcohol and Drug Abuse Patient Records regulations: The Federal rules restrict any use of the information to criminally investigate or prosecute any alcohol or drug abuse patient.[facility] HospitalIn the event this information is protected by the Federal Confidentiality of Alcohol and Drug Abuse Patient Records regulations: The Federal rules restrict any use of the information to criminally investigate or prosecute any alcohol or drug abuse patient.[facility] HospitalIn the event this information is protected by the Federal Confidentiality of Alcohol and Drug Abuse Patient Records regulations: The Federal rules restrict any use of the information to criminally investigate or prosecute any alcohol or drug abuse patient.[facility] HospitalIn the event this information is protected by the Federal Confidentiality of Alcohol and Drug Abuse Patient Records regulations: The Federal rules restrict any use of the information to criminally investigate or prosecute any alcohol or drug abuse patient.[facility] HospitalIn the event this information is protected by the Federal Confidentiality of Alcohol and Drug Abuse Patient Records regulations: The Federal rules restrict any use of the information to criminally investigate or prosecute any alcohol or drug abuse patient.[facility] HospitalIn the event this information is protected by the Federal Confidentiality of Alcohol and Drug Abuse Patient Records regulations: The Federal rules restrict any use of the information to criminally investigate or prosecute any alcohol or drug abuse patient.[facility] HospitalIn the event this information is protected by the Federal Confidentiality of Alcohol and Drug Abuse Patient Records regulations: The Federal rules restrict any use of the information to criminally investigate or prosecute any alcohol or drug abuse patient.[facility] HospitalIn the event this information is protected by the Federal Confidentiality of Alcohol and Drug Abuse Patient Records regulations: The Federal rules restrict any use of the information to criminally investigate or prosecute any alcohol or drug abuse patient.[facility] HospitalIn the event this information is protected by the Federal Confidentiality of Alcohol and Drug Abuse Patient Records regulations: The Federal rules restrict any use of the information to criminally investigate or prosecute any alcohol or drug abuse patient.[facility] Reason for Visit (unrecogniz ed section and content) Reason Comments Plaquenil Check Cataract Evaluation Reason Comments Nutrition Counseling No show Reason Comments Blood Draw (CVAD) Reason Comments Established Patient Specialty Diagnoses / Procedures Referred By Contac t Referred To Contact Hematology/Oncology / HEMATOLOGY/ONCOLOGY Diagnoses OV(PORT)/LABS EARLY/CHEMO 2/6* Procedures OFFICE/OUTPATIENT ESTABLISHED HIGH MDM 40 MIN EST PATIENT W/CHEMO Jaren Mccoy DO [address] [place] [address] Jaren Mccoy DO [address] [place] [address] Referral ID Status Reason Start Date Expiration Date V isits Requested Visits Authorized [id number] Authorized 08/10/2023 07/24/2024 3 3 Reason Comments Chemotherapy Treatment Specialty Diagnoses / Procedures Referred By Contac t Referred To Contact Diagnoses Ovarian cancer on left (HCC) Procedures PACLITAXEL INJECTION CARBOPLATIN INJECTION PALONOSETRON HCL Jaren Mccoy, DO [address] [place] [place] [address] Jonathan [facility] [address] [place] [address] Referral ID Status Reason Start Date Expiration Date V isits Requested Visits Authorized [id number] Authorized 07/28/2023 07/28/2024 99 99 Reason Onset Date Comments Refill Request 08/30/2023 Reason Comments Nutrition Assessment Reason Comments Ovarian Cancer Specialty Diagnoses / Procedures Referred By Contac t Referred To Contact Diagnoses Ovarian cancer on left (HCC) Procedures CONSULT TO MEDICAL GENETICS - CANCER MEDICAL GENETICS COUNSELING EACH 30 MINUTES Jaren Mccoy, [address] [place] [address] [place] [address] Referral ID Status Reason Start Date Expiration Date Visits Requested Visits Authorized [id number] Pending Review PCP Requested Referral Auto-Generate d Referral 07/27/2023 07/26/2024 1 1 Reason Comments Established Patient Specialty Diagnoses / Procedures Referred By Contac t Referred To Contact Hematology/Oncology / HEMATOLOGY/ONCOLOGY Diagnoses OV(PORT)/LABS EARLY/CHEMO /* Procedures OFFICE/OUTPATIENT ESTABLISHED HIGH MDM 40 MIN EST PATIENT W/CHEMO Jaren Mccoy, DO [address] [facility] [place] [address] Jaren Mccoy, DO [address] [place] [address] Reason Comments Nutrition Counseling Reason Comments Orders Reason Comments Patient Question Reason Comments Port Flush Reason Comments Radiology CT Specialty Diagnoses / Procedures Referred By Contac t Referred To Contact CT IMAGING Diagnoses Ovarian cancer on left (HCC) Procedures CT ABD/PEL W IVCON CT ABD & PELVIS W/CONTRAST Jaren Mccoy, DO [address] [place] [address] [place] [address] Referral ID Status Reason Start Date Expiration Date V isits Requested Visits Authorized [id number] Closed Auto-Generate d Referral 09/16/2023 10/15/2024 1 1 Reason Comments Results Referral ID Status Reason Start Date Expiration Date Visits Re quested Visits Authorized [id number] Closed 08/10/2023 07/24/2024 3 3 Reason Comments Urgent Reason Comments Appointment Reason Comments Preparations For Surgery Reason Comments Nut 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 - Other Hospital Discha rge Reason Comments Post-Op Visit Reason Comments Results Reason Comments Radiology US Specialty Diagnoses / Procedures Referred By Contac t Referred To Contact US IMAGING Diagnoses Elevated LFTs Procedures US ABD RIGHT UPPER QUADRANT US ABDOMINAL REAL TIME W/IMAGE LIMITED Jaren Mccoy, DO [address] [place] [address] [place] [address] Referral ID Status Reason Start Date Expiration Date V isits Requested Visits Authorized [id number] Closed Auto-Generate d Referral 12/06/2023 01/04/2025 1 1 Referral ID Status Reason Start Date Expiration Date V isits Requested Visits Authorized [id number] Pending Review 07/28/2023 07/28/2024 99 99 Reason Comments Transfusion Reason Comments CVAD Access Specialty Diagnoses / Procedures Referred By Contac t Referred To Contact CT IMAGING Diagnoses Ovarian cancer, bilateral (HCC) Procedures CT ABD/PEL W IVCON CT ABD & PELVIS W/CONTRAST Jaren Mccoy, DO [address] [facility] [address] [place] [address] Referral ID Status Reason Start Date Expiration Date V isits Requested Visits Authorized [id number] Closed Auto-Generate d Referral 01/16/2024 02/14/2025 1 1 Specialty Diagnoses / Procedures Referred By Contac t Referred To Contact CT IMAGING Diagnoses Ovarian cancer, bilateral (HCC) Procedures CT ABD/PEL W IVCON CT ABD & PELVIS W/CONTRAST Jaren Mccoy, DO [address] [place] [address] [place] [address] Reason Comments Established Patient Reason Onset Date Comments Refill Request 02/07/2024 Reason Comments Follow Up Reason Comments Refill Request Reason Onset Date Comments SPP Oral Oncology/hematology - Treatment Referra l 03/16/2024 [employer] Insurance Authorization 03/16/2024 Pending PA Reason Comments CHEMO PILL START Reason Comments Nut 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 - Other Oral Anti-Cance r Agents Education (lynparza) Reason Onset Date Comments Refill Request 03/23/2024 Reason Comments Nut 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 - Other Receiving olapa rib 03/28 Reason Comments Nut 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 - Other Oral Anti-Cance r Agents Follow-up olaparib Reason Comments New Patient Discuss Takedown Reason Comments Procedure LAP COLOSTOMY REVERS AL Reason Comments Patient Update Reason Onset Date Comments SPP Oral Oncology/hematology - Medication Refill 04/20/2024 Lynparza Reason Onset Date Comments Opened In Error 04/27/2024 Reason Onset Date Comments Nut 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 - Hospital Follow Up 05/03/2024 Reason Comments Post Op : LAPAROSCOPIC RESEC TION BOWEL Reason Onset Date Comments SPP Oral Oncology/hematology - Medication Refill 05/18/2024 Lynparza 100mg Reason Onset Date Comments Nut 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 - Hospital Follow Up 05/28/2024 Reason Onset [...] 10/22/2024 Lynparza 100mg Reason Onset Date Comments Nut 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 - Hospital Follow Up 10/23/2024 Reason Onset [...] Procedures IRON SUCROSE INJECTION PER 1 MG Jaren Mccoy DO [address] [place] [address] Phone: tel: fax: Hematology/Oncology [address] [place] [address] Phone: tel: fax: Referral ID Status Reason Start Date Expiration Date Visits Requested Visits Authorized [id number] Authorized Patient Cleared - Admin/Chairm an/Director advise to proceed or did not respond 02/11/2025 05/12/2025 5 5 Reason Onset Date Comments SPP Oral Oncology/hematology - Medication Refill 02/15/2025 Lynparza 100mg Reason Comments Opened In Error Reason Comments Results Specialty Diagnoses / [facility] Diagnoses Ovarian cancer, bilateral (HCC) Procedures CT CHEST W IVCON DIAGNOSTIC COMPUTED TOMOGRAPHY THORAX W/CONTRAST Jaren Mccoy DO [address] [place] [address] Phone: tel: fax: [place] [phone] Referral ID Status Reason Start Date Expiration Date V isits Requested Visits Authorized [id number] Closed Auto-Generate d Referral 02/25/2025 03/27/2026 1 1 Reason Comments Nut 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 - Other Change in treat ment Reason Comments First Time Treatment Education Carbo/Hettinger christie/Avastin Reason Comments Social Work Services Reason Comments Nut 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 - Other Treatment Plann ing Care Teams (unrecognized sec tion and content) Loss Prevention Research Engineer Relationship Specialty Start Date End Date Krystian Piper MD [address] [place] [address] PCP - General Family Medicine 06/14/17 Team [...] Emily Casanova DO Primary Care Provider Active Nikki Persaud NP-Rich Attending Provider, Referring Prov ider Active Team Status: Inactive Member Role Status Dates Dr. Emily Casanova DO Primary Care Provider Active Dr. Jorge Alberto Stephenson , Emergency Provider Active Loss Prevention Research Engineer Relationship Specialty Start Date End Date Emily Casanova DO [address] [place] [address] PCP - General Family Medicine 01/05/23 Jaren Mccoy DO [address] [place] [address] Hematology/Oncology 08/01/23 Joy Bolaños RN Specialty Nut 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 Oncology 08/01/23 Loss Prevention Research Engineer Relationship Specialty Start Date End Date Emily Casanova DO [address] [place] [address] PCP - General Family Medicine 01/05/23 Jaren Mccoy DO [address] [place] [address] Hematology/Oncology 08/01/23 Joy Bolaños RN Specialty Nut 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 Oncology 08/01/23 Loss Prevention Research Engineer Relationship Specialty Start Date End Date Emily Casanova DO [address] [place] [address] PCP - General Family Medicine 01/05/23 Jaren Mccoy DO [address] [place] [address] Hematology/Oncology 08/01/23 Joy Bolaños RN Specialty Nut 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 Oncology 08/01/23 Loss Prevention Research Engineer Relationship Specialty Start Date End Date Emily Casanova DO [address] [place] [address] PCP - General Family Medicine 01/05/23 Jaren Mccoy DO [address] [place] [address] Hematology/Oncology 08/01/23 Joy Bolaños RN Specialty Nut 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 Oncology 08/01/23 Loss Prevention Research Engineer Relationship Specialty Start Date End Date Emily Casanova DO [address] [place] [address] PCP - General Family Medicine 01/05/23 Jaren Mccoy DO [address] [place] [address] Hematology/Oncology 08/01/23 Joy Bolaños RN Specialty Nut 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 Oncology 08/01/23 Loss Prevention Research Engineer Relationship Specialty Start Date End Date Emily Casanova DO [address] [place] [address] PCP - General Family Medicine 01/05/23 Jaren Mccoy DO [address] [place] [address] Hematology/Oncology 08/01/23 Joy Bolaños RN Specialty Nut 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 Oncology 08/01/23 Loss Prevention Research Engineer Relationship Specialty Start Date End Date Emily Casanova DO [address] [place] [address] PCP - General Family Medicine 01/05/23 Jaren Mccoy DO [address] [place] [address] Hematology/Oncology 08/01/23 Joy Bolaños RN Specialty Nut 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 Oncology 08/01/23 Loss Prevention Research Engineer Relationship Specialty Start Date End Date Emily Casanova DO [address] [place] [address] PCP - General Family Medicine 01/05/23 Jaren Mccoy DO [address] [place] [address] Hematology/Oncology 08/01/23 Joy Bolaños RN Specialty Nut 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 Oncology 08/01/23 Loss Prevention Research Engineer Relationship Specialty Start Date End Date Emily Casanova DO [address] [place] [address] PCP - General Family Medicine 01/05/23 Jaren Mccoy DO [address] [place] [address] Hematology/Oncology 08/01/23 Joy Bolaños RN Specialty Nut 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 Oncology 08/01/23 Loss Prevention Research Engineer Relationship Specialty Start Date End Date Emily Casanova DO [address] [place] [address] PCP - General Family Medicine 01/05/23 Jaren Mccoy DO [address] [place] [address] Hematology/Oncology 08/01/23 Joy Bolaños RN Specialty Nut 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 Oncology 08/01/23 Loss Prevention Research Engineer Relationship Specialty Start Date End Date Emily Casanova DO [address] [place] [address] PCP - General Family Medicine 01/05/23 Jaren Mccoy DO [address] [place] [address] Hematology/Oncology 08/01/23 Joy Bolaños RN Specialty Nut 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 Oncology 08/01/23 Team Status: Inactive Member Role Status Dates Dr. Emily Casanova DO Primary Care Provider Active Dr. Jorge Alberto Stephenson DO Attending Provider, Emergency Pro vider Active Team Status: Inactive Member Role Status Dates Dr. Emily Casanova DO Primary Care Provider Active Dr. Jaren Mccoy DO Attending Provider, Referring Prov ider Active Loss Prevention Research Engineer Relationship Specialty Start Date End Date Emily Casanova DO [address] [place] [address] PCP - General Family Medicine 01/05/23 Jaren Mccoy DO [address] [place] [address] Hematology/Oncology 08/01/23 Joy Bolaños RN Specialty Nut 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 Oncology 08/01/23 Loss Prevention Research Engineer Relationship Specialty Start Date End Date Emily Casanova DO [address] [place] [address] PCP - General Family Medicine 01/05/23 Jaren Mccoy DO [address] [place] [address] Hematology/Oncology 08/01/23 Joy Bolaños RN Specialty Nut 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 Oncology 08/01/23 Loss Prevention Research Engineer Relationship Specialty Start Date End Date Emily Casanova DO [address] [place] [address] PCP - General Family Medicine 01/05/23 Jaren Mccoy DO [address] [place] [address] Hematology/Oncology 08/01/23 Joy Bolaños RN Specialty Nut 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 Oncology 08/01/23 Loss Prevention Research Engineer Relationship Specialty Start Date End Date Emily Casanova DO [address] [place] [address] PCP - General Family Medicine 01/05/23 Jaren Mccoy DO [address] [place] [address] Hematology/Oncology 08/01/23 Joy Bolaños RN Specialty Nut 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 Oncology 08/01/23 Loss Prevention Research Engineer Relationship Specialty Start Date End Date Emily Casanova DO [address] [place] [address] PCP - General Family Medicine 01/05/23 Jaren Mccoy DO [address] [place] [address] Hematology/Oncology 08/01/23 Joy Bolaños RN Specialty Nut 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 Oncology 08/01/23 Loss Prevention Research Engineer Relationship Specialty Start Date End Date Emily Casanova DO [address] [place] [address] PCP - General Family Medicine 01/05/23 Jaren Mccoy DO [address] [place] [address] Hematology/Oncology 08/01/23 Joy Bolaños RN Specialty Nut 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 Oncology 08/01/23 Loss Prevention Research Engineer Relationship Specialty Start Date End Date Emily Casanova DO [address] [place] [address] PCP - General Family Medicine 01/05/23 Jaren Mccoy DO [address] [place] [address] Hematology/Oncology 08/01/23 Joy Bolaños RN Specialty Nut 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 Oncology 08/01/23 Loss Prevention Research Engineer Relationship Specialty Start Date End Date Emily Casanova DarrylDO [address] [place] [address] PCP - General Family Medicine 01/05/23 Jaren Mccoy DO [address] [place] [address] Hematology/Oncology 08/01/23 Joy Bolaños RN Specialty Nut 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 Oncology 08/01/23 Loss Prevention Research Engineer Relationship Specialty Start Date End Date Emily Casanova DO [address] [place] [address] PCP - General Family Medicine 01/05/23 Jaren Mccoy DO [address] [place] [address] Hematology/Oncology 08/01/23 Joy Bolaños RN Specialty Nut 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 Oncology 08/01/23 Loss Prevention Research Engineer Relationship Specialty Start Date End Date Emily Casanova DO [address] [place] [address] PCP - General Family Medicine 01/05/23 Jaren Mccoy DO [address] [place] [address] Hematology/Oncology 08/01/23 Joy Bolaños RN Specialty Nut 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 Oncology 08/01/23 Loss Prevention Research Engineer Relationship Specialty Start Date End Date Emily Casanova DO [address] [place] [address] PCP - General Family Medicine 01/05/23 Jaren Mccoy DO [address] [place] [address] Hematology/Oncology 08/01/23 Joy Bolaños RN Specialty Nut 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 Oncology 08/01/23 Loss Prevention Research Engineer Relationship Specialty Start Date End Date Emily Casanova DO [address] [place] [address] PCP - General Family Medicine 01/05/23 Jaren Mccoy DO [address] [place] [address] Hematology/Oncology 08/01/23 Joy Bolaños RN Specialty Nut 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 Oncology 08/01/23 Loss Prevention Research Engineer Relationship Specialty Start Date End Date Emily Casanova DO [address] [place] [address] PCP - General Family Medicine 01/05/23 Jaren Mcocy DO [address] [place] [address] Hematology/Oncology 08/01/23 Joy Bolaños RN Specialty Nut 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 Oncology 08/01/23 Loss Prevention Research Engineer Relationship Specialty Start Date End Date Emily Casanova DO [address] [place] [address] PCP - General Family Medicine 01/05/23 Jaren Mccoy DO [address] [place] [address] Hematology/Oncology 08/01/23 Joy Bolaños RN Specialty Nut 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 Oncology 08/01/23 Loss Prevention Research Engineer Relationship Specialty Start Date End Date Emily Casanova DO [address] [place] [address] PCP - General Family Medicine 01/05/23 Jaren Mccoy DO [address] [place] [address] Hematology/Oncology 08/01/23 Joy Bolaños RN Specialty Nut 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 Oncology 08/01/23 Loss Prevention Research Engineer Relationship Specialty Start Date End Date Emily Casanova DO [address] [place] [address] PCP - General Family Medicine 01/05/23 Jaren Mccoy DO [address] [place] [address] Hematology/Oncology 08/01/23 Joy Bolaños RN Specialty Nut 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 Oncology 08/01/23 Loss Prevention Research Engineer Relationship Specialty Start Date End Date Emily Casanova DO [address] [place] [address] PCP - General Family Medicine 01/05/23 Jaren Mccoy DO [address] [place] [address] Hematology/Oncology 08/01/23 Joy Bolaños RN Specialty Nut 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 Oncology 08/01/23 Loss Prevention Research Engineer Relationship Specialty Start Date End Date Emily Casanova DO [address] [place] [address] PCP - General Family Medicine 01/05/23 Jaren Mccoy DO [address] [place] [address] Hematology/Oncology 08/01/23 Joy Bolaños RN Specialty Nut 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 Oncology 08/01/23 Loss Prevention Research Engineer Relationship Specialty Start Date End Date Emily Casanova DO [address] [place] [address] PCP - General Family Medicine 01/05/23 Jaren Mccoy DO [address] [facility] [place] [address] Hematology/Oncology 08/01/23 Joy Bolaños RN Specialty Nut 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 Oncology 08/01/23 Loss Prevention Research Engineer Relationship Specialty Start Date End Date Emily Casanova DO [address] [place] [address] PCP - General Family Medicine 01/05/23 Jaren Mccoy DO [address] [place] [address] Hematology/Oncology 08/01/23 Joy Bolaños RN Specialty Nut 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 Oncology 08/01/23 Loss Prevention Research Engineer Relationship Specialty Start Date End Date Emily Casanova DO [address] [place] [address] PCP - General Family Medicine 01/05/23 Jaren Mccoy DO [address] [place] [address] Hematology/Oncology 08/01/23 Joy Bolaños RN Specialty Nut 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 Oncology 08/01/23 Loss Prevention Research Engineer Relationship Specialty Start Date End Date Emily Casanova DO [address] [place] [address] PCP - General Family Medicine 01/05/23 Jaren Mccoy DO [address] [place] [address] Hematology/Oncology 08/01/23 Joy Bolaños RN Specialty Nut 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 Oncology 08/01/23 Loss Prevention Research Engineer Relationship Specialty Start Date End Date Emily Casanova DO [address] [place] [address] PCP - General Family Medicine 01/05/23 Jaren Mccoy DO [address] [place] [address] Hematology/Oncology 08/01/23 Joy Bolaños RN Specialty Nut 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 Oncology 08/01/23 Loss Prevention Research Engineer Relationship Specialty Start Date End Date Emily Casanova DO [address] [place] [address] PCP - General Family Medicine 01/05/23 Jaren Mccoy DO [address] [place] [address] Hematology/Oncology 08/01/23 Joy Bolaños RN Specialty Nut 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 Oncology 08/01/23 Loss Prevention Research Engineer Relationship Specialty Start Date End Date Emily Casanova DO [address] [place] [address] PCP - General Family Medicine 01/05/23 Jaren Mccoy DO [address] [place] [address] Hematology/Oncology 08/01/23 Joy Bolaños RN Specialty Nut 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 Oncology 08/01/23 Loss Prevention Research Engineer Relationship Specialty Start Date End Date Emily Casanova DO [address] [place] [address] PCP - General Family Medicine 01/05/23 Jaren Mccoy DO [address] [facility] [place] [address] Hematology/Oncology 08/01/23 Joy Bolaños RN Specialty Nut 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 Oncology 08/01/23 Loss Prevention Research Engineer Relationship Specialty Start Date End Date Emily Casanova DO [address] [place] [address] PCP - General Family Medicine 01/05/23 Jaren Mccoy DO [address] [place] [address] Hematology/Oncology 08/01/23 Joy Bolaños RN Specialty Nut 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 Oncology 08/01/23 Loss Prevention Research Engineer Relationship Specialty Start Date End Date Emily Casanova DO [address] [place] [address] PCP - General Family Medicine 01/05/23 Jaren Mccoy DO [address] [place] [address] Hematology/Oncology 08/01/23 Joy Bolaños RN Specialty Nut 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 Oncology 08/01/23 Loss Prevention Research Engineer Relationship Specialty Start Date End Date Emily Casanova DO [address] [place] [address] PCP - General Family Medicine 01/05/23 Jaren Mccoy DO [address] [place] [address] Hematology/Oncology 08/01/23 Joy Bolaños RN Specialty Nut 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 Oncology 08/01/23 Loss Prevention Research Engineer Relationship Specialty Start Date End Date Emily Casanova DO [address] [place] [address] PCP - General Family Medicine 01/05/23 Jaren Mccoy DO [address] [place] [address] Hematology/Oncology 08/01/23 Joy Bolaños RN Specialty Nut 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 Oncology 08/01/23 Loss Prevention Research Engineer Relationship Specialty Start Date End Date Emily Casanova DO [address] [place] [address] PCP - General Family Medicine 01/05/23 Jaren Mccoy DO [address] [place] [address] Hematology/Oncology 08/01/23 Joy Bolaños RN Specialty Nut 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 Oncology 08/01/23 Loss Prevention Research Engineer Relationship Specialty Start Date End Date Emily Casanova DO [address] [place] [address] PCP - General Family Medicine 01/05/23 Jaren Mccoy DO [address] [place] [address] Hematology/Oncology 08/01/23 Joy Bolaños RN Specialty Nut 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 Oncology 08/01/23 Loss Prevention Research Engineer Relationship Specialty Start Date End Date Emily Casanova DO [address] [place] [address] PCP - General Family Medicine 01/05/23 Jaren Mccoy DO [address] [facility] [place] [address] Hematology/Oncology 08/01/23 Joy Bolaños RN Specialty Nut 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 Oncology 08/01/23 Loss Prevention Research Engineer Relationship Specialty Start Date End Date Emily Casanova DO [address] [place] [address] PCP - General Family Medicine 01/05/23 Jaren Mccoy DO [address] [place] [address] Hematology/Oncology 08/01/23 Joy Bolaños RN Specialty Nut 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 Oncology 08/01/23 Loss Prevention Research Engineer Relationship Specialty Start Date End Date Emily Casanova DO [address] [place] [address] PCP - General Family Medicine 01/05/23 Jaren Mccoy DO [address] [place] [address] Hematology/Oncology 08/01/23 Joy Bolaños RN Specialty Nut 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 Oncology 08/01/23 Loss Prevention Research Engineer Relationship Specialty Start Date End Date Emily Casanova DO [address] [place] [address] PCP - General Family Medicine 01/05/23 Jaren Mccoy DO [address] [place] [address] Hematology/Oncology 08/01/23 Joy Bolaños RN Specialty Nut 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 Oncology 08/01/23 Loss Prevention Research Engineer Relationship Specialty Start Date End Date Emily Casanova DO [address] [place] [address] PCP - General Family Medicine 01/05/23 Jaren Mccoy DO [address] [place] [address] Hematology/Oncology 08/01/23 Joy Bolaños RN Specialty Nut 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 Oncology 08/01/23 Loss Prevention Research Engineer Relationship Specialty Start Date End Date Emily Casanova DO [address] [place] [address] PCP - General Family Medicine 01/05/23 Jaren Mccoy DO [address] [place] [address] Hematology/Oncology 08/01/23 Joy Bolaños RN Specialty Nut 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 Oncology 08/01/23 Loss Prevention Research Engineer Relationship Specialty Start Date End Date Emily Casanova DO [address] [place] [address] PCP - General Family Medicine 01/05/23 Jaren Mccoy DO [address] [place] [address] Hematology/Oncology 08/01/23 Joy Bolaños RN Specialty Nut 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 Oncology 08/01/23 Loss Prevention Research Engineer Relationship Specialty Start Date End Date Jocelyne Emily AndrewsDO [address] [place] [address] PCP - General Family Medicine 01/05/23 Jaren Mccoy DO [address] [place], [place] [address] Hematology/Oncology 08/01/23 Joy Bolaños RN Specialty Nut 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 Oncology 08/01/23 Loss Prevention Research Engineer Relationship Specialty Start Date End Date JocelyneEmily solorioDO [address] [place] [address] PCP - General Family Medicine 01/05/23 Jaren Mccoy DO [address] [place] [address] Hematology/Oncology 08/01/23 Joy Bolaños RN Specialty Nut 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 Oncology 08/01/23 Rohit Miles MD [address] [place] [address] General Surgery 05/03/24 Ambar Vilchis MD [facility] [place] [address] Gynecology 05/03/24 Loss Prevention Research Engineer Relationship Specialty Start Date End Date JocelyneEmily DarrylDO [address] [place], [place] [address] PCP - General Family Medicine 01/05/23 Jaren Mccoy DO [address] [place], [place] [address] Hematology/Oncology 08/01/23 Joy Bolaños RN Specialty Nut 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 Oncology 08/01/23 Rohit Miles MD [address] [place], [place] [address]293 General Surgery 05/03/24 Ambar Barry MD [address] [place] [address] Gynecology 05/03/24 Loss Prevention Research Engineer Relationship Specialty Start Date End Date Emily Casanova DO [address] [place], [place] [address] PCP - General Family Medicine 01/05/23 Jaren Mccoy DO [address] [place], [place] [address] Hematology/Oncology 08/01/23 Joy Bolaños RN Specialty Nut 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 Oncology 08/01/23 Rohit Miles MD [address] [place], [place] [id number] General Surgery 05/03/24 [facility] [address] [address] Gynecology 05/03/24 Loss Prevention Research Engineer Relationship Specialty Start Date End Date Emily Casanova DO [address] [place], [place] [address] PCP - General Family Medicine 01/05/23 Jaren Mccoy DO [address] [place], [place] [address] Hematology/Oncology 08/01/23 Joy Bolaños RN Specialty Nut 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 Oncology 08/01/23 Rohit Miles MD [address] [place], [place] [address] General Surgery 05/03/24 Ambar Barry MD [address] [place] [address] Gynecology 05/03/24 Loss Prevention Research Engineer Relationship Specialty Start Date End Date Emily Casanova DO [address] [place], [place] [address] PCP - General Family Medicine 01/05/23 Jaren Mccoy DO [address] [place], [place] [address] Hematology/Oncology 08/01/23 Joy Bolaños RN Specialty Nut 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 Oncology 08/01/23 Rohit Miles MD [address] [place], [place] [address] General Surgery 05/03/24 Ambar Barry MD [address] [place] [address] Gynecology 05/03/24 Loss Prevention Research Engineer Relationship Specialty Start Date End Date Emily Casanova DO [address] [place], [place] [address] PCP - General Family Medicine 01/05/23 Jaren Mccoy DO [address] [place] [address] Hematology/Oncology 08/01/23 Joy Bolaños RN Specialty Nut 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 Oncology 08/01/23 Rohit Miles MD [address] [place], [place] [address] General Surgery 05/03/24 Ambar Barry MD [address] [place], [place] 4750[address] Gynecology 05/03/24 Loss Prevention Research Engineer Relationship Specialty Start Date End Date Emily Casanova DO [address] [place], [place] [address] PCP - General Family Medicine 01/05/23 Jaren Mccoy DO [address] [place], [place] [address] Hematology/Oncology 08/01/23 Joy Bolaños RN Specialty Nut 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 Oncology 08/01/23 Rohit Miles MD [address] [place], [place] [id number] General Surgery 05/03/24 [facility] [address] [place] [address] Gynecology 05/03/24 Loss Prevention Research Engineer Relationship Specialty Start Date End Date Emily Casanova DO [address] [place], [place] [address] PCP - General Family Medicine 01/05/23 Jaren Mccoy DO [address] [place], [place] [address] Hematology/Oncology 08/01/23 Joy Bolaños RN Specialty Nut 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 Oncology 08/01/23 Rohit Miles MD [address] [place], [place] 298083 General Surgery 05/03/24 [facility] [address] [place], [place] 0138[address] Gynecology 05/03/24 Loss Prevention Research Engineer Relationship Specialty Start Date End Date Emily Casanova DO [address] [place] [address] PCP - General Family Medicine 01/05/23 Jaren Mccoy DO [address] [place], [place] 6[address]371 Hematology/Oncology 08/01/23 Joy Bolaños RN Specialty Nut 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 Oncology 08/01/23 Rohit Miles MD [address] [place], [place] 376233 General Surgery 05/03/24 [facility] [address] [place], [place] 6169908 Gynecology 05/03/24 Loss Prevention Research Engineer Relationship Specialty Start Date End Date Emily Casanova DO [address] [place], [place] [address] PCP - General Family Medicine 01/05/23 Jaren Mccoy DO [address] [place], [place] 86[address] Hematology/Oncology 08/01/23 Joy Bolaños, RN Specialty Nut 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 Oncology 08/01/23 Rohit Miles MD [address] [place], [place] [address]803 General Surgery 05/03/24 Ambar Barry MD [address] [place] [address] Gynecology 05/03/24 Loss Prevention Research Engineer Relationship Specialty Start Date End Date Emily Casanova DO [address] [place], [place] [address] PCP - General Family Medicine 01/05/23 Jaren Mccoy DO [address] [place], [place] [address] Hematology/Oncology 08/01/23 Joy Bolaños RN Specialty Nut 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 Oncology 08/01/23 Rohit Miles MD [address] [place], [place] 9914[address] General Surgery 05/03/24 Ambar Barry MD [address] [place] [address] Gynecology 05/03/24 Loss Prevention Research Engineer Relationship Specialty Start Date End Date Emily Casanova DO [address] [place], [place] [address] PCP - General Family Medicine 01/05/23 Jaren Mccoy DO [address] [place], [place] [address] Hematology/Oncology 08/01/23 Joy Bolaños RN Specialty Nut 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 Oncology 08/01/23 Rohit Miles MD [address] [place], [place] 288143 General Surgery 05/03/24 Ambar Barry MD [address] [place] [address] Gynecology 05/03/24 Loss Prevention Research Engineer Relationship Specialty Start Date End Date Emily Casanova DO [address] [place] [address] PCP - General Family Medicine 01/05/23 Jaren Mccoy DO [address] [place], [place] [address] Hematology/Oncology 08/01/23 Joy Bolaños RN Specialty Nut 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 Oncology 08/01/23 Rohit Miles MD [address] [place], [place] [address] General Surgery 05/03/24 Ambar Vilchis MD [address] [place] [address] Gynecology 05/03/24 Loss Prevention Research Engineer Relationship Specialty Start Date End Date Emily Casanova DO [address] [place], [place] [address] PCP - General Family Medicine 01/05/23 Jaren Mccoy DO [address] [place] [address] Hematology/Oncology 08/01/23 Joy Bolaños RN Specialty Nut 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 Oncology 08/01/23 Rohit Miles MD [address] [place], [place] 743273 General Surgery 05/03/24 Ambar Vilchis MD [address] [place], [place] 6812508 Gynecology 05/03/24 Loss Prevention Research Engineer Relationship Specialty Start Date End Date Emily Casanova DO [address] [place] [address] PCP - General Family Medicine 01/05/23 Jaren Mccoy DO [address] [place] [address] Hematology/Oncology 08/01/23 Joy Bolaños RN Specialty Nut 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 Oncology 08/01/23 Rohit Miles MD [address] [place], [place] [address]003 General Surgery 05/03/24 Ambar Vilchis MD [address] [place], [place] 0147908 Gynecology 05/03/24 Loss Prevention Research Engineer Relationship Specialty Start Date End Date Emily Casanova DO [address] [place] [address] PCP - General Family Medicine 01/05/23 Jaren Mccoy DO [address] [place] [address] Hematology/Oncology 08/01/23 Joy Bolaños RN Specialty Nut 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 Oncology 08/01/23 Rohit Miles MD [address] [place], [place] 351153 General Surgery 05/03/24 Ambar Barry MD [address] [place] [address] Gynecology 05/03/24 Loss Prevention Research Engineer Relationship Specialty Start Date End Date Emily Casanova DO [address] [place] [address] PCP - General Family Medicine 01/05/23 Jaren Mccoy DO [address] [place] [address] Hematology/Oncology 08/01/23 Joy Bolaños RN Specialty Nut 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 Oncology 08/01/23 Rohit Miles MD [address] [place], [place] 549063 General Surgery 05/03/24 Ambar Barry MD [address] [place] [address] Gynecology 05/03/24 Loss Prevention Research Engineer Relationship Specialty Start Date End Date Emily Casanova DO [address] [place] [address] PCP - General Family Medicine 01/05/23 Jaren Mccoy DO [address] [place] [address] Hematology/Oncology 08/01/23 Joy Bolaños RN Specialty Nut 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 Oncology 08/01/23 Rohit Miles MD [address] [place], [place] 0875[address] General Surgery 05/03/24 Ambar Barry MD [address] [place] [address] Gynecology 05/03/24 Loss Prevention Research Engineer Relationship Specialty Start Date End Date Emily Casanova DO [address] [place] [address] PCP - General Family Medicine 01/05/23 Jaren Mccoy DO [address] [place], [place] 220351 Hematology/Oncology 08/01/23 Joy Bolaños RN Specialty Nut 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 Oncology 08/01/23 Rohit Miles MD [address] [place], [place] [address]153 General Surgery 05/03/24 Ambar Barry MD [address] [place], [place] 8290308 Gynecology 05/03/24 Loss Prevention Research Engineer Relationship Specialty Start Date End Date Emily Casanova DO [address] [place], [place] [address] PCP - General Family Medicine 01/05/23 Jaren Mccoy DO [address] [place], [place] 585431 Hematology/Oncology 08/01/23 Joy Bolaños RN Specialty Nut 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 Oncology 08/01/23 Rohit Miles MD [address] [place], [place] 6888[address] General Surgery 05/03/24 [facility] [address] [place] [address] Gynecology 05/03/24 Loss Prevention Research Engineer Relationship Specialty Start Date End Date Emily Casanova DO [address] [place] [address] PCP - General Family Medicine 01/05/23 Jaren Mccoy DO [address] [place], [place] 042221 Hematology/Oncology 08/01/23 Joy Bolaños RN Specialty Nut 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 Oncology 08/01/23 Rohit Miles MD [address] [place], [place] 3686[address] General Surgery 05/03/24 [facility] MD [address] [place] 9018308 Gynecology 05/03/24 Loss Prevention Research Engineer Relationship Specialty Start Date End Date JocelyneEmily DO [address] [place], [place] [address] PCP - General Family Medicine 01/05/23 Jaren Mccoy DO [address] [place], [place] [address] Hematology/Oncology 08/01/23 Joy Bolaños RN Specialty Nut 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 Oncology 08/01/23 Rohit Miles MD [address] [place], [place] [address] General Surgery 05/03/24 Ambar Barry MD [address] [place] [address] Gynecology 05/03/24 Loss Prevention Research Engineer Relationship Specialty Start Date End Date JocelyneEmily DO [address] [place], [place] [address] PCP - General Family Medicine 01/05/23 Jaren Mccoy DO [address] [place], [place] 335011 Hematology/Oncology 08/01/23 Joy Bolaños RN Specialty Nut 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 Oncology 08/01/23 Rohit Miles MD [address] [place], [place] [address] General Surgery 05/03/24 Ambar Barry MD [address] [place] [address] Gynecology 05/03/24 Loss Prevention Research Engineer Relationship Specialty Start Date End Date JocelyneEmily walkerDO [address] [place], [place] [address] PCP - General Family Medicine 01/05/23 Jaren Mccoy DO [address] [place] [place] [address] Hematology/Oncology 08/01/23 Joy Bolaños RN Specialty Nut 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 Oncology 08/01/23 Rohit Miles MD [address] [place], [place] [address] General Surgery 05/03/24 [facility] [place] [place] [address] Gynecology 05/03/24 Loss Prevention Research Engineer Relationship Specialty Start Date End Date JocelyneEmily DarrylDO [address] [place] [address] PCP - General Family Medicine 01/05/23 Jaren Mccoy DO [address] [place] [address] Hematology/Oncology 08/01/23 Joy Bolaños RN Specialty Nut 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 Oncology 08/01/23 Rohit Miles MD [address] [place], [place] [address] General Surgery 05/03/24 Ambar Barry MD [address] [place], [place] [id number] Gynecology 05/03/24 Loss Prevention Research Engineer Relationship Specialty Start Date End Date Emily Casanova DO [address] [place] [address] PCP - General Family Medicine 01/05/23 Jaren Mccoy DO [address] [place] [address] Hematology/Oncology 08/01/23 Joy Bolaños RN Specialty Nut 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 Oncology 08/01/23 Rohit Miles MD [address] [place], [place] [address] General Surgery 05/03/24 Ambar [place] [address] Gynecology 05/03/24 Loss Prevention Research Engineer Relationship Specialty Start Date End Date Emily Casanoav DO [address] [place] [place] [address] PCP - General Family Medicine 01/05/23 Jaren Mccoy DO [address] [place] [address] Hematology/Oncology 08/01/23 Joy Bolaños RN Specialty Nut 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 Oncology 08/01/23 Rohit Miles MD [address] [facility] [address] [place], [place] [id number] General Surgery 05/03/24 Ambar [place] [address] Gynecology 05/03/24 Loss Prevention Research Engineer Relationship Specialty Start Date End Date Emily Casanova DO [address] [place] [address] PCP - General Family Medicine 01/05/23 Jaren Mccoy DO [address] [place] [address] Hematology/Oncology 08/01/23 Joy Bolaños RN Specialty Nut 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 Oncology 08/01/23 Rohit Miles MD [address] [place], [place] [address] General Surgery 05/03/24 Ambar Barry [place] [address] [place] [address] Gynecology 05/03/24 Loss Prevention Research Engineer Relationship Specialty Start Date End Date Emily Casanova DO [address] [place] [address] PCP - General Family Medicine 01/05/23 Jaren Mccoy DO [address] [place], [place] [address] Hematology/Oncology 08/01/23 Joy Bolaños RN Specialty Nut 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 Oncology 08/01/23 Rohit Miles MD [address] [facility] [address] [place], [place] [address] General Surgery 05/03/24 mAbar Barry MD [address] [place] [address] Gynecology 05/03/24 Loss Prevention Research Engineer Relationship Specialty Start Date End Date Emily Casanova DO [address] [place], [place] [address] PCP - General Family Medicine 01/05/23 Jaren Mccoy DO [address] [place], [place] [address] Hematology/Oncology 08/01/23 Joy Bolaños RN Specialty Nut 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 Oncology 08/01/23 Rohit Miles MD [address] [place], [place] [address] General Surgery 05/03/24 Ambar Barry MD [address] [place] [address] Gynecology 05/03/24 Loss Prevention Research Engineer Relationship Specialty Start Date End Date Emily Casanova DO [address] [place], [place] [address] PCP - General Family Medicine 01/05/23 Jaren Mccoy DO [address] [facility] [place] [address] Hematology/Oncology 08/01/23 Joy Bolaños RN Specialty Nut 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 Oncology 08/01/23 Rohit Miles MD [address] [place], [place] [address] General Surgery 05/03/24 Ambar Barry MD [address] [place] [address] Gynecology 05/03/24 Loss Prevention Research Engineer Relationship Specialty Start Date End Date Emily Casanova DO [address] [place], [place] [address] PCP - General Family Medicine 01/05/23 Jaren Mccoy DO [address] [place], [place] [id number] Hematology/Oncology 08/01/23 Joy Bolaños RN Specialty Nut 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 Oncology 08/01/23 Rohit Miles MD [address] [place], [place] [address] General Surgery 05/03/24 [facility] [address] [place] [address] Gynecology 05/03/24 Mindy Stout LISW [address] [place] [address] Wind Field Service Manager Hematology/Oncology 03/20/25 Loss Prevention Research Engineer Relationship Specialty Start Date End Date Emily Casanova DO [address] [place] [address] PCP - General Family Medicine 01/05/23 Jaren Mccoy DO [address] [place], [place] [address] Hematology/Oncology 08/01/23 Joy Bolaños RN Specialty Nut 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 Oncology 08/01/23 Rohit Miles MD [address] [place] [address] General Surgery 05/03/24 Ambar Barry MD [address] [place] [address] Gynecology 05/03/24 Mindy Stout LISW [address] [place] [address] Wind Field Service Manager Hematology/Oncology 03/20/25 Loss Prevention Research Engineer Relationship Specialty Start Date End Date Emily Casanova DO [address] [address] PCP - General Family Medicine 01/05/23 Jaren Mccoy DO [address] [place] [address] Hematology/Oncology 08/01/23 Joy Bolaños, RN Specialty Nut 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 Oncology 08/01/23 Rohit Miles MD [address] [place], [place] [address] General Surgery 05/03/24 Ambar Barry MD [address] [place] [address] Gynecology 05/03/24 Mindy Stout LISW [address] [place] [address] Wind Field Service Manager Hematology/Oncology 03/20/25 Loss Prevention Research Engineer Relationship Specialty Start Date End Date Emily Casanova DO [address] [address] PCP - General Family Medicine 01/05/23 Jaren Mccoy DO [address] [place] [address] Hematology/Oncology 08/01/23 Joy Bolaños, RN Specialty Nut 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 Oncology 08/01/23 Rohit Miles MD [address] [place], [place] [address] General Surgery 05/03/24 Ambar Barry MD [address] [place] [address] Gynecology 05/03/24 Mindy Stout LISW [address] [place], [place] [address]oniel [place] [address] Wind Field Service Manager Hematology/Oncology 03/20/25 Loss Prevention Research Engineer Relationship Specialty Start Date End Date Emily Casanova DO [address] [facility] [place] [address] PCP - General Family Medicine 01/05/23 Jaren Mccoy DO [address] [place] [address] Hematology/Oncology 08/01/23 Joy Bolaños RN Specialty Nut 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 Oncology 08/01/23 Rohit Miles MD [address] [place] [address] General Surgery 05/03/24 Ambar Barry MD [address] [place] [address] Gynecology 05/03/24 Mindy Stout LISW [address] [place] [address] Wind Field Service Manager Hematology/Oncology 03/20/25 INFORMATION SOURCE (unrecogn ized section and content) DATE CREATED AUTHOR 07/21/2023 [facility] ([place]) DATE CREATED AUTHOR AUTHOR'S ORGANIZ ATION 08/05/2023 [facility] DATE CREATED AUTHOR AUTHOR'S ORGANIZ ATION 04/13/2025 [facility] DATE CREATED AUTHOR AUTHOR'S ORGANIZ ATION 05/06/2025 [facility] DATE CREATED AUTHOR AUTHOR'S ORGANIZ ATION 05/06/2025 [facility] DATE CREATED AUTHOR AUTHOR'S ORGANIZ ATION 05/10/2025 [facility] Administered Medications - up to 3 most recent administrations Administered Medications (un recognized section and content) Medication Order MAR Action Action Date Dose Rate Site CARBOplatin 400 mg in NaCl 0.9% 315 mL (PARAPLATIN) 400 mg (rounded from 420 mg, Target AUC = 6), INTRAVENOUS, Administer over 30 Minutes, ONCE, 1 dose, On Tue08/30/23 at 0800, Approx Total Volume: exp 00 08/31/23 (room temp) Hazardous Chemotherapy Drug: Use [...] over 3 Hours, ONCE, 1 dose, On Tu09/20/23 at 0830, Approx Total Volume exp 1400 [...] BE BASED ON THE PRIMARY CLINICAL RECORDS. [facility]. provides no warranty or guarantee of the accuracy or completeness of information in this document.
[2025-05-10 07:18] LABS: Hematocrit 33.5 % (37-47); Hemoglobin 11.2 g/dL (12.0-15.0); Immature Granulocytes Count 0.040 X10^3/uL (0.0-0.0); Mean Corp Hgb Conc 33.4 g/dL (32-36); Mean Corpuscular Volume 98.2 fL (81-99); Mean Platelet Vol. 11.5 fl (6.2-12.0); NRBC Flagged by Analyzer 0 % (0-5); POSITIVE MORPHOLOGY YES; Platelet Count 100 K/mm3 (150-450); RBC Distribution Width CV 20.0 % (11.6-14.6); RBC Distribution Width SD 72.6 fl (35.1-43.9); Red Blood Count 3.41 M/mm3 (4.2-5.4); White Blood Count 5.2 K/mm3 (4.4-11.0)
[2025-05-10 07:35] LABS: Differential Indicated SCAN CRITERIA MET
[2025-05-10 07:49] LABS: Anion Gap 13 (5-15); BUN 30 mg/dL (4-19); BUN/Creat Ratio 31.0 RATIO (10-20); Calcium,Total 9.6 mg/dL (7.6-11.0); Carbon Dioxide 22.9 mmol/L (21.0-32.0); Chloride 104 mmol/L (98-108); Estimated Creatinine Clearance 39.83 ml/min (50-250); Glucose 110 mg/dL (70-99); Potassium 4.3 mmol/L (3.3-5.1)
[2025-05-10 08:45] LABS: Red Cell Morphology NORM C+C NORMAL (NORM C&C)
[2025-05-10] MEDS: Tolterodine Tartrate 4 MG CAP.SA PO (09:18)
[2025-05-10] MEDS: Calcium (Elemental) 500 MG Tablet PO (09:18)
[2025-05-10] MEDS: Vitamin B Comp W-C Capsule 1 CAP PO (09:28)
[2025-05-10] MEDS: 0.9% Normal Saline (250mL Bag) 250 ML 15 ML IV (10:22)
[2025-05-10] MEDS: 0.9% Saline Lock 10 ML Syringe IV ×2 (10:25→21:07)
--- NOTE | 2025-05-10 10:41 | PCM.PN.BLA ---
Progress Note Patient is a 74-year-old lady with history of ovarian cancer currently undergoing chemo admitted with progressive shortness of breath and assessment of acute congestive heart failure with preserved ejection fraction as well as pneumonia made admitted to a monitored bed treatment initiated per protocol. Patient has been seen and examined. Initial assessment including history and physical diagnostic senior oracle database administrator orders reviewed will follow.
[2025-05-10] MEDS: Doxycycline 100 MG in 0.9% Normal Saline (250mL Bag) 250 ML 250 MG IV ×2 (11:50→21:07)
--- NOTE | 2025-05-10 13:40 | CASEMGMT ---
RN?CM?ASSESSMENT ? RN?CM?to room to meet with patient for initial transition planning/care coordination?assessment.?RN?CM?introduced self and role at [facility].? Pt voices understanding and consents to?assessment?at this time.? Pt resting in bed in no distress at this time.?Daughter, Rosa, @ bedside. Pt is A/O at this time and answers all questions appropriately.?? Care providers, pharmacy, and demographics verified/updated at this time. ? Strata: 2 PCP: Dr Dillon Specialists:Dr Mccoy-oncology [facility]erred [facility]acy: [facility] Insurance: Melodie SMITH Prescription Benefit:?yes LNOK: , Yunior. DaughterRosa Living Arrangements: Lives w/ in one-story home w/basement and 3 steps to enter. Independent w/ADL's and IADL's. Transportation:?Pt states drives self and states no transportation concerns at this time.? also drives. DME: ?States has the following DME:?pulse ox and BP machine. No home O2. Discussed home O2 set-up process, should she qualify for home O2 and questions answered. Verbal review of DME companies that do new O2 set-ups on the weekend. Pt chose [employer]. HHC/SNF: No hx SNF. Has had [facility] in the past after getting a colostomy. ? Pt wishes to return home and states has no concerns with going home at time of discharge. Follow for any home oxygen needs and any further discharge planning/needs.? Pt and daughter voice no further concerns/needs at this time.? ? PLAN:??Home Follow for possible home O2 @ dc. ? Wojciech AVALOSN?RN?CM
[2025-05-11 03:15] VITALS: BP 125/75; PULSE 95; RESP 18; TEMP 36.3; O2SAT 97
[2025-05-11 05:31] VITALS: BMI 21.6
[2025-05-11 06:25] LABS: Hematocrit 29.3 % (37-47); Hemoglobin 9.9 g/dL (12.0-15.0); Immature Granulocytes Count 0.020 X10^3/uL (0.0-0.0); Mean Corp Hgb Conc 33.8 g/dL (32-36); Mean Corpuscular Volume 98.7 fL (81-99); Mean Platelet Vol. 12.5 fl (6.2-12.0); NRBC Flagged by Analyzer 0 % (0-5); POSITIVE COUNT YES; POSITIVE MORPHOLOGY YES; Platelet Count 77 K/mm3 (150-450); RBC Distribution Width CV 19.4 % (11.6-14.6); RBC Distribution Width SD 70.4 fl (35.1-43.9); Red Blood Count 2.97 M/mm3 (4.2-5.4); White Blood Count 3.5 K/mm3 (4.4-11.0)
[2025-05-11 06:33] LABS: Differential Indicated SCAN CRITERIA MET
[2025-05-11 06:46] LABS: Anion Gap 12 (5-15); BUN 41 mg/dL (4-19); BUN/Creat Ratio 28.1 RATIO (10-20); Calcium,Total 9.3 mg/dL (7.6-11.0); Carbon Dioxide 26.3 mmol/L (21.0-32.0); Chloride 102 mmol/L (98-108); Estimated Creatinine Clearance 26.56 ml/min (50-250); Glucose 93 mg/dL (70-99); Magnesium 1.3 mg/dL (1.5-2.2); Potassium 4.1 mmol/L (3.3-5.1)
[2025-05-11 07:12] LABS: Anisocytosis 2+
[2025-05-11 09:15] VITALS: BP 150/81; PULSE 90; RESP 18; TEMP 36.7; O2SAT 99
[2025-05-11] MEDS: Tolterodine Tartrate 4 MG CAP.SA PO (09:49)
[2025-05-11] MEDS: Vitamin B Comp W-C Capsule 1 CAP PO (09:49)
[2025-05-11] MEDS: Calcium (Elemental) 500 MG Tablet PO (09:49)
[2025-05-11] MEDS: 0.9% Saline Lock 10 ML Syringe IV (09:50)
[2025-05-11] MEDS: Doxycycline 100 MG in 0.9% Normal Saline (250mL Bag) 250 ML 250 MG IV ×2 (10:53→21:46)
--- NOTE | 2025-05-11 11:24 | PN.HOSP_ITS ---
Reason for Visit Chief Complaint: shortness of breath Objective Data Objective Data Vital Signs: Vital Signs Temp Pulse Resp BP Pulse Ox O2 Del Method O2 Flow Rate 98.1 F 90 18 150/81 H 99 Room Air 2 05/11/25 09:15 05/11/25 09:15 05/11/25 09:15 05/11/25 09:15 05/11/25 09:15 05/11/25 09:15 05/10/25 01:57 Oxygen Flow Rate (L/min) 2 Oxygen Delivery Method Room Air Weight: 118 lb 2.684 oz Body Mass Index (BMI) 21.6 Intake & Output: Intake and Output for Last 24 Hours 05/09/25 05/10/25 05/11/25 23:59 23:59 23:59 Intake Total 1680 / 1680 470 / 470 Output Total 3100 / 3100 Balance -1420 / -1420 470 / 470 Lab / Micro Data 05/11/25 05:10 05/11/25 05:10 Labs: Laboratory Results - last 24 hr 05/11/25 05:10: WBC 3.5 L, RBC 2.97 L, Hgb 9.9 L, Hct 29.3 L, MCV 98.7, MCH 33.3 H, MCHC 33.8, RDW Std Deviation 70.4 H, RDW Coeff of Delphine 19.4 H, Plt Count 77 L, MPV 12.5 H, Immature Gran % (Auto) 0.600, Neut % (Auto) 32.7 L, Lymph % (Auto) 47.7 H, Tipton % (Auto) 15.8 H, Eos % (Auto) 2.6, Baso % (Auto) 0.6, Absolute Neuts (auto) 1.1 L, Absolute Lymphs (auto) 1.66, Nucleated RBC % 0, Plt Morphology Comment Not Reportable, Anisocytosis 2+, Ovalocytes Not Reportable, Sodium 140, Potassium 4.1, Chloride 102, Carbon Dioxide 26.3, Anion Gap 12, BUN 41 H, Creatinine 1.47 H, Estim Creat Clear Calc 26.56 L, Est GFR (MDRD) Non-Af 37 L, BUN/Creatinine Ratio 28.1 H, Glucose 93, Calcium 9.3, Phosphorus 4.4, M agnesium 1.3 L Micro: Microbiology 05/10/25 05:50 Urine, Clean Catch Legionella Antigen - Final 05/10/25 05:50 Urine, Clean Catch Streptococcus pneumoniae Antigen (M - Final 05/10/25 02:48 Mucosa - Nose Respiratory Panel (PCR) - Final Physical Exam Narrative Patient creatinine went up. Seems patient overdiuresed. Low magnesium. pulse ox 99% on room air denies shortness of breath or chest pain. Physical exam: General: Alert, Oriented x3, Cooperative HEENT: Atraumatic, PERRLA, EOMI, Normocephalic. Oral: No Gingival or Mucosal Lesions/ Ulcerations Neck: Supple, No JVD, Negative Carotid Bruits Chest wall/Lungs: Right subclavicular Mediport. Air entry diminished in bilateral lung bases. No crepitation/rhonchi Cardiovascular: Regular rate and rhythm, Normal S1,S2, no murmur gallop Abdomen: Bowel Sounds Present, Soft, Non Tender, Non-Distended : No dysuria. No renal angle tenderness. No suprapubic tenderness. Extremities: No edema, Capillary Refill Less than 3 Seconds Skin: No rashes, No breakdown Musculoskeletal: No Tenderness to Palpation of Joints or Extremities Neurological: Cranial nerves II-XII grossly intact, DTR 2+/4. No acute focal neurological deficit. Psych/Mental Status: Normal Affect, Appropriate. Assessment & Plan Assessment/Plan (1) Heart failure: PLAN: Plan #Hypoxia due to acute exacerbation of heart failure with preserved EF * was admitted with a complaint of shortness of breath. She had been seen at [facility] with similar symptoms a few days ago and was transferred to [facility], from where she was discharged after a day, on oral antibiotics. * She apparently had a 2D echo on 05/05/2025 at [facility] which showed preserved EF of 61% and normal LV systolic function with mildly dilated left ventricle; * CXR done here showed bilateral lower lung zones and pneumonic consolidations as well as mild bilateral pleural effusion * BNP today is >75695. She came back with shortness of breath and was found to be hypoxic on rest and with ambulation. * order records from [facility] to evaluate 2D echo * monitor intake and output. Fluid restriction to 1500cc daily * CXR showed bilateral lower lung pneumonia and effusion. Procalcitonin is elevated at 0.14 * Place on IV ceftriaxone and doxycycline, as she is allergic to erythromycin and therefore azithromycin. 05/11: Urinary antigens and respiratory panel are negative. Patient overdiuresed and creatinine went up. Discontinued IV Lasix and lisinopril. Follow-up labs tomorrow. FRANK and hypomagnesemia due to Lasix: As mentioned above diuretics on hold. Magnesium replaced. Serum sodium in normal range. Monitor kidney function and electrolytes tomorrow AM. #History of ovarian cancer: Undergoing chemotherapy.Last session of chemotherapy was on May 01. She follows with Dr Mccoy. To follow up with Dr Mccoy on outpatient basis #Hypertension: BP is elevated in the 180s systolic. Will resume BP meds. IV hydralazine prn. Give a dose of clonidine 0.2mg x 1 also DVT prophylaxis: lovenox Code status: Full code * Patient and family counseled extensively about different types of CODE STATUS including full code, DNR CCA and DNR CCA. * Patient elects to be full code. Microbiology Past 72 Hours 05/10/25 05:50 Urine, Clean Catch Legionella Antigen - Final 05/10/25 05:50 Urine, Clean Catch Streptococcus pneumoniae Antigen (M - Final 05/10/25 02:48 Mucosa - Nose Respiratory Panel (PCR) - Final Laboratory Results 05/11/25 05:10: WBC 3.5 L, RBC 2.97 L, Hgb 9.9 L, Hct 29.3 L, MCV 98.7, MCH 33.3 H, MCHC 33.8, RDW Std Deviation 70.4 H, RDW Coeff of Delphine 19.4 H, Plt Count 77 L, MPV 12.5 H, Immature Gran % (Auto) 0.600, Neut % (Auto) 32.7 L, Lymph % (Auto) 47.7 H, Tipton % (Auto) 15.8 H, Eos % (Auto) 2.6, Baso % (Auto) 0.6, Absolute Neuts (auto) 1.1 L, Absolute Lymphs (auto) 1.66, Nucleated RBC % 0, Plt Morphology Comment Not Reportable, Anisocytosis 2+, Ovalocytes Not Reportable, Sodium 140, Potassium 4.1, Chloride 102, Carbon Dioxide 26.3, Anion Gap 12, BUN 41 H, Creatinine 1.47 H, Estim Creat Clear Calc 26.56 L, Est GFR (MDRD) Non-Af 37 L, BUN/Creatinine Ratio 28.1 H, Glucose 93, Calcium 9.3, Phosphorus 4.4, M agnesium 1.3 L # Charges/Coding Visit Charges Inpatient E&M: 18720 Subs Hosp L2
[2025-05-11 16:06] VITALS: BP 149/79; PULSE 93; RESP 18; TEMP 36.5; O2SAT 98
[2025-05-11] MEDS: Magnesium Sulfate 2 GM in Dextrose 5%-Water (100mL Bag) 100 ML IV (18:53)
[2025-05-11 21:51] VITALS: BP 143/71; PULSE 84; RESP 18; TEMP 36.5; O2SAT 95
[2025-05-12 02:53] VITALS: BMI 21.2
[2025-05-12 03:15] VITALS: BP 120/58; PULSE 87; RESP 18; TEMP 36.1; O2SAT 98
--- NOTE | 2025-05-12 05:40 | RAD_ITS ---
PROCEDURE: CHEST 1 VIEW (PORTABLE) 05/12/2025 REASON FOR EXAM: CXR TECHNIQUE: Frontal view of the chest. COMPARISON: Chest x-ray 05/10/2025. FINDINGS: Hardware: A right-sided Port-A-Cath terminates at the cavoatrial junction. Heart: Mild cardiomegaly. Lungs: Diffuse interstitial pulmonary densities consistent with pulmonary edema. Obliteration of the costophrenic angles consistent with pleural effusions. No pneumothorax. Bones: No acute bony abnormalities. RAD/Chest 1 View (Portable) IMPRESSION: Decreasing pulmonary edema or pneumonia. Reading Location: [id number]
[2025-05-12 06:25] LABS: Hematocrit 26.5 % (37-47); Hemoglobin 8.8 g/dL (12.0-15.0); Immature Granulocytes Count 0.010 X10^3/uL (0.0-0.0); Mean Corp Hgb Conc 33.2 g/dL (32-36); Mean Corpuscular Volume 98.9 fL (81-99); Mean Platelet Vol. 12.7 fl (6.2-12.0); NRBC Flagged by Analyzer 0 % (0-5); POSITIVE COUNT YES; POSITIVE MORPHOLOGY YES; Platelet Count 59 K/mm3 (150-450); RBC Distribution Width CV 18.7 % (11.6-14.6); RBC Distribution Width SD 68.0 fl (35.1-43.9); Red Blood Count 2.68 M/mm3 (4.2-5.4); White Blood Count 3.4 K/mm3 (4.4-11.0)
[2025-05-12 06:26] LABS: Differential Indicated SCAN CRITERIA MET
[2025-05-12 06:49] LABS: Anion Gap 12 (5-15); BUN 56 mg/dL (4-19); BUN/Creat Ratio 38.2 RATIO (10-20); Calcium,Total 9.2 mg/dL (7.6-11.0); Carbon Dioxide 24.8 mmol/L (21.0-32.0); Chloride 102 mmol/L (98-108); Estimated Creatinine Clearance 26.74 ml/min (50-250); Glucose 94 mg/dL (70-99); Magnesium 2.2 mg/dL (1.5-2.2); Potassium 3.9 mmol/L (3.3-5.1)
[2025-05-12 07:13] LABS: Differential Comment SCANNED
--- NOTE | 2025-05-12 09:40 | DCINST_ITS ---
Discharge Instructions DC O2, CPAP, BIPAP needs Home O2 Discharge instructions: No Follow Up Care Test Results: Test results from this visit will be discussed in further detail at your follow- up appointment, if applicable. Discharge Plan Admission Admit Date/Time: 05/10/25 04:34 Primary Reason for Your Visit: CHF exacerbation Attending Provider: Jone Pemberton Primary Care Provider: Jatin Dillon Consulting Providers: Sandy Toussaint; Yunior Land Instructions Additional Instructions / Restrictions: Advised BMP on 05/14/2025, to Tuesday and follow with PCP to see creatinine. Discussed with PCP before resumption furosemide dose and frequency Discharge Orders/Prescriptions Prescriptions: New furosemide [Lasix] 40 mg tablet 40 mg PO QODAY Qty: 30 0RF Rx Instructions: Start from 05/15/25 after discussion with PCP after BMP Continued calcium 100 mg capsule 600 mg PO DAILY clonidine HCl 0.1 mg tablet 0.1 mg PO DAILY PRN (Reason: High BP SBP>160) pantoprazole 40 mg tablet,delayed release (DR/EC) 40 mg PO DAILY oxybutynin chloride 15 mg tablet extended release 24hr 15 mg PO DAILY vitamin B complex [Vitamins B Complex] Capsule 1 cap PO DAILY Changed doxycycline hyclate 100 mg capsule 100 mg PO BID 5 Days Qty: 10 0RF cefdinir 300 mg capsule 300 mg PO BID 5 Days Qty: 10 0RF Held lisinopril 40 mg tablet 40 mg PO DAILY Hold Instructions: Hold for 5 days follow-up PCP after BMP Referrals / Follow Up: Jatin Dillon DO [Primary Care Provider, Family Practice] - In 1 Week Jaren Mccoy DO [Med Staff - Active Staff, Oncology] - Within 2 Weeks Disposition Disposition (needs filled in before D/C Order can be placed): Home, Self Care
--- NOTE | 2025-05-12 09:50 | PCM.DC.SUM ---
Providers Date of Admission: 05/10/25 Date of Discharge: 05/12/25 Primary Care Physician: Dr. Jatin Dillon DO Reason For Visit: ACUTE EXACERBATION OF HEART FAILURE Diagnosis Discharge Diagnosis (1) Heart failure: Status: Acute Code(s): I50.9 - Heart failure, unspecified Plan 74-year-old female was admitted for shortness of breath. #Hypoxia due to acute exacerbation of heart failure with preserved EF and possible interstitial pneumonia was admitted with a complaint of shortness of breath. She had been seen at [facility] with similar symptoms a few days ago and was transferred to [facility], from where she was discharged after a day, on oral antibiotics. She apparently had a 2D echo on 05/05/2025 at [facility] which showed preserved EF of 61% and normal LV systolic function with mildly dilated left ventricle; CXR done here showed bilateral lower lung zones and pneumonic consolidations as well as mild bilateral pleural effusion BNP today is >86386. She came back with shortness of breath and was found to be hypoxic on rest and with ambulation. order records from [facility] to evaluate 2D echo monitor intake and output. Fluid restriction to 1500cc daily CXR showed bilateral lower lung pneumonia and effusion. Procalcitonin is elevated at 0.14 Place on IV ceftriaxone and doxycycline, as she is allergic to erythromycin and therefore azithromycin. 05/11: Urinary antigens and respiratory panel are negative. Patient overdiuresed and creatinine went up. Discontinued IV Lasix and lisinopril. Follow-up labs tomorrow. 05/12: Patient did is doing well. Furosemide was discontinued yesterday. Discharged on cefdinir and doxycycline. Furosemide prescription was done but advised to do BMP on 05/15/2025 and follow-up PCP before resumption. FRANK and hypomagnesemia due to Lasix: As mentioned above diuretics on hold. Magnesium replaced. Serum sodium in normal range. Monitor kidney function and electrolytes tomorrow AM. 05/12: BUN/creatinine 56/1.46. Creatinine was 1.47 yesterday. Continue holding Lasix. #History of ovarian cancer: Undergoing chemotherapy.Last session of chemotherapy was on May 01. She follows with Dr Mccoy. To follow up with Dr Mccoy on outpatient basis 05/12: Advised following with Dr. Jaren Mccoy #Hypertension: BP is elevated in the 180s systolic. Will resume BP meds. IV hydralazine prn. Give a dose of clonidine 0.2mg x 1 also 05/12 blood pressure is controlled DVT prophylaxis: lovenox Code status: Full code Patient and family counseled extensively about different types of CODE STATUS including full code, DNR CCA and DNR CCA. Patient elects to be full code. Discharge medication reconciliation done. Discharge follow-up instructions completed. Discharge process discussed with the patient and all questions were answered to patient's satisfaction. Follow with PCP in 1 to 2 weeks Total time spent, exact 35 minutes on discharge meds reconciliation, examination, coordination of care with nurses and ancillary staff, review of imaging and blood test and discussion with the patient on follow-up instructions. Microbiology Past 72 Hours 05/10/25 05:50 Urine, Clean Catch Legionella Antigen - Final 05/10/25 05:50 Urine, Clean Catch Streptococcus pneumoniae Antigen (M - Final 05/10/25 02:48 Mucosa - Nose Respiratory Panel (PCR) - Final Laboratory Results 05/11/25 05:10: WBC 3.5 L, RBC 2.97 L, Hgb 9.9 L, Hct 29.3 L, MCV 98.7, MCH 33.3 H, MCHC 33.8, RDW Std Deviation 70.4 H, RDW Coeff of Delphine 19.4 H, Plt Count 77 L, MPV 12.5 H, Immature Gran % (Auto) 0.600, Neut % (Auto) 32.7 L, Lymph % (Auto) 47.7 H, Lowndes % (Auto) 15.8 H, Eos % (Auto) 2.6, Baso % (Auto) 0.6, Absolute Neuts (auto) 1.1 L, Absolute Lymphs (auto) 1.66, Nucleated RBC % 0, Plt Morphology Comment Not Reportable, Anisocytosis 2+, Ovalocytes Not Reportable, Sodium 140, Potassium 4.1, Chloride 102, Carbon Dioxide 26.3, Anion Gap 12, BUN 41 H, Creatinine 1.47 H, Estim Creat Clear Calc 26.56 L, Est GFR (MDRD) Non-Af 37 L, BUN/Creatinine Ratio 28.1 H, Glucose 93, Calcium 9.3, Phosphorus 4.4, Magnesium 1.3 L # Medications at Discharge Home Medications calcium 100 mg capsule 600 mg PO DAILY 02/16/23 oxybutynin chloride 15 mg tablet,extended release 24 hr 15 mg PO DAILY 01/12/24 pantoprazole 40 mg tablet,delayed release 40 mg PO DAILY 01/12/24 vitamin B complex (Vitamins B Complex capsule) 1 cap PO DAILY 01/12/24 clonidine HCl 0.1 mg tablet 0.1 mg PO DAILY PRN High BP SBP>160 05/09/25 lisinopril 40 mg tablet 40 mg PO DAILY 05/09/25 Held on 05/12/25. Instructions: Hold for 5 days follow-up PCP after BMP cefdinir 300 mg capsule 300 mg PO BID 5 days #10 caps 05/12/25 doxycycline hyclate 100 mg capsule 100 mg PO BID 5 days #10 caps 05/12/25 furosemide 40 mg tablet (Lasix) 40 mg PO QODAY #30 tabs 05/12/25 Hospital Course Summary of Care Provided Hospital Course: Microbiology Past 72 Hours 05/10/25 05:50 Urine, Clean Catch Legionella Antigen - Final 05/10/25 05:50 Urine, Clean Catch Streptococcus pneumoniae Antigen (M - Final 05/10/25 02:48 Mucosa - Nose Respiratory Panel (PCR) - Final Laboratory Results 05/12/25 05:08: WBC 3.4 L, RBC 2.68 L, Hgb 8.8 L, Hct 26.5 L, MCV 98.9, MCH 32.8 H, MCHC 33.2, RDW Std Deviation 68.0 H, RDW Coeff of Delphine 18.7 H, Plt Count 59 L, MPV 12.7 H, Immature Gran % (Auto) 0.300, Neut % (Auto) 39.8 L, Lymph % (Auto) 36.0, [place]own[place] % (Auto) 20.4 H, Eos % (Auto) 2.9, Baso % (Auto) 0.6, Absolute Neuts (auto) 1.4 L, Absolute Lymphs (auto) 1.22, Nucleated RBC % 0, Differential Comment SCANNED, Sodium 139, Potassium 3.9, Chloride 102, Carbon Dioxide 24.8, Anion Gap 12, BUN 56 H, Creatinine 1.46 H, Estim Creat Clear Calc 26.74 L, Est GFR (MDRD) Non-Af 38 L, BUN/Creatinine Ratio 38.2 H, Glucose 94, Calcium 9.2, Phosphorus 4.8 H, Magnesium 2.2 Physical Exam Narrative No acute shortness of breath. Creatinine is still elevated 1.46. Pulse ox 98% on room air. Repeat magnesium 2.2. pulse ox 99% on room air denies shortness of breath or chest pain. Physical exam: General: Alert, Oriented x3, Cooperative HEENT: Atraumatic, PERRLA, EOMI, Normocephalic. Oral: No Gingival or Mucosal Lesions/ Ulcerations Neck: Supple, No JVD, Negative Carotid Bruits Chest wall/Lungs: Right subclavicular Mediport. Air entry equal in bilateral lung bases. No crepitation/rhonchi Cardiovascular: Regular rate and rhythm, Normal S1,S2, no murmur gallop Abdomen: Bowel Sounds Present, Soft, Non Tender, Non-Distended : No dysuria. No renal angle tenderness. No suprapubic tenderness. Extremities: No edema, Capillary Refill Less than 3 Seconds Skin: No rashes, No breakdown Musculoskeletal: No Tenderness to Palpation of Joints or Extremities Neurological: Cranial nerves II-XII grossly intact, DTR 2+/4. No acute focal neurological deficit. Psych/Mental Status: Normal Affect, Appropriate. Weight / BMI Weight Weight: 115 lb 15.41 oz Body Mass Index (BMI) 21.2 ABG / Lab / Microbiology Data 05/12/25 05:08 05/12/25 05:08 Laboratory: Laboratory Results - last 24 hr 05/12/25 05:08: WBC 3.4 L, RBC 2.68 L, Hgb 8.8 L, Hct 26.5 L, MCV 98.9, MCH 32.8 H, MCHC 33.2, RDW Std Deviation 68.0 H, RDW Coeff of Delphine 18.7 H, Plt Count 59 L, MPV 12.7 H, Immature Gran % (Auto) 0.300, Neut % (Auto) 39.8 L, Lymph % (Auto) 36.0, [place]own[place] % (Auto) 20.4 H, Eos % (Auto) 2.9, Baso % (Auto) 0.6, Absolute Neuts (auto) 1.4 L, Absolute Lymphs (auto) 1.22, Nucleated RBC % 0, Differential Comment SCANNED, Sodium 139, Potassium 3.9, Chloride 102, Carbon Dioxide 24.8, Anion Gap 12, BUN 56 H, Creatinine 1.46 H, Estim Creat Clear Calc 26.74 L, Est GFR (MDRD) Non-Af 38 L, BUN/Creatinine Ratio 38.2 H, Glucose 94, Calcium 9.2, Phosphorus 4.8 H, Magnesium 2.2 Microbiology: Microbiology 05/10/25 05:50 Urine, Clean Catch Legionella Antigen - Final 05/10/25 05:50 Urine, Clean Catch Streptococcus pneumoniae Antigen (M - Final 05/10/25 02:48 Mucosa - Nose Respiratory Panel (PCR) - Final Radiography Diagnostic Testing: Radiology Impression Chest X-Ray 05/12/25 05:40 IMPRESSION: Decreasing pulmonary edema or pneumonia. Reading Location: [facility] D/C Instructions DC O2, CPAP, BIPAP Needs Home O2 Discharge instructions: No Meaningful Use Info Meaningful Use Meaningful Use Diagnoses (Choose all that apply): None applicable Discharge Plan Admission Admit Date/Time: 05/10/25 04:34 Primary Reason for Your Visit: CHF exacerbation Attending Provider: Jone Pemberton Primary Care Provider: Jatin Dillon Consulting Providers: Sandy Toussaint; Yunior Land Instructions Additional Instructions / Restrictions: Advised BMP on 05/14/2025, to Tuesday and follow with PCP to see creatinine. Discussed with PCP before resumption furosemide dose and frequency Discharge Orders/Prescriptions Prescriptions: New furosemide [Lasix] 40 mg tablet 40 mg PO QODAY Qty: 30 0RF Rx Instructions: Start from 05/15/25 after discussion with PCP after BMP Continued calcium 100 mg capsule 600 mg PO DAILY clonidine HCl 0.1 mg tablet 0.1 mg PO DAILY PRN (Reason: High BP SBP>160) pantoprazole 40 mg tablet,delayed release (DR/EC) 40 mg PO DAILY oxybutynin chloride 15 mg tablet extended release 24hr 15 mg PO DAILY vitamin B complex [Vitamins B Complex] Capsule 1 cap PO DAILY Changed doxycycline hyclate 100 mg capsule 100 mg PO BID 5 Days Qty: 10 0RF cefdinir 300 mg capsule 300 mg PO BID 5 Days Qty: 10 0RF Held lisinopril 40 mg tablet 40 mg PO DAILY Hold Instructions: Hold for 5 days follow-up PCP after BMP Referrals / Follow Up: Wilma,Jatin, DO [Primary Care Provider, Family Practice] - In 1 Week Jaren Mccoy DO [Med Staff - Active Staff, Oncology] - Within 2 Weeks Disposition Disposition (needs filled in before D/C Order can be placed): Home, Self Care Charges/Coding Visit Charges Inpatient E&M: 28782 Disch Hosp >30min
[2025-05-12 10:05] VITALS: BP 173/75; PULSE 77; RESP 18; TEMP 36.6; O2SAT 100
[2025-05-12] MEDS: Calcium (Elemental) 500 MG Tablet PO (10:08)
[2025-05-12] MEDS: Tolterodine Tartrate 4 MG CAP.SA PO (10:08)
[2025-05-12] MEDS: Vitamin B Comp W-C Capsule 1 CAP PO (10:12)
[2025-05-12] MEDS: Doxycycline 100 MG in 0.9% Normal Saline (250mL Bag) 250 ML 250 MG IV (10:12)
[2025-05-12 12:16] VITALS: O2SAT 97; O2SAT 99
[2025-05-12 12:17] VITALS: BP 150/86; PULSE 80; RESP 18; TEMP 36.5; O2SAT 99
== END 2025-05-12 12:56 | disposition home or self-care (01) | DRG 291 ==
LOC: ED 04:27 → PCU 04:39
PROVIDERS: Internal Medicine; Admitting Provider Student in an Organized Health Care Education/Training Program; Emergency Provider Emergency Medicine; PCP Family Medicine; Visit Provider Internal Medicine
DX: I11.0 Hypertensive heart disease with heart failure (principal); I50.31 Acute diastolic (congestive) heart failure; N17.9 Acute kidney failure, unspecified; J84.9 Interstitial pulmonary disease, unspecified; D64.81 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 chemotherapy; E83.42 Hypomagnesemia; R09.02 Hypoxemia; Z79.899 Other long term (current) drug therapy; Z98.51 Tubal ligation status; Z85.43 Personal history of malignant neoplasm of ovary; T50.1X5A Adverse effect of loop [high-ceiling] diuretics, initial encounter
CPT/HCPCS: 36415; 36430; 36591; 71045; 80048; 83605; 83735; 83880; 84100; 84145; 85025; 86850; 86900; 86901; 87449; 87633; 93005; 94640; 99285; P9016; A4216; J1938

== ENCOUNTER → 2025-05-14 | Outpatient (CLI) | payer MEDICARE, SELFPAY ==
[2025-05-14 14:04] LABS: Anion Gap 11 (5-15); BUN 38 mg/dL (4-19); BUN/Creat Ratio 35.4 RATIO (10-20); Calcium,Total 9.9 mg/dL (7.6-11.0); Carbon Dioxide 23.3 mmol/L (21.0-32.0); Chloride 106 mmol/L (98-108); Glucose 107 mg/dL (70-99); Potassium 4.5 mmol/L (3.3-5.1)
== END | disposition home or self-care (01) ==
PROVIDERS: PCP Family Medicine; Referring Provider Nurse Practitioner Family; Visit Provider Nurse Practitioner Family
DX: I10 Essential (primary) hypertension (principal)
CPT/HCPCS: 36415; 80048

== ENCOUNTER → 2025-07-22 | Outpatient (CLI) | payer MEDICARE, SELFPAY ==
--- NOTE | 2025-07-22 13:42 | BI_ITS ---
EXAM: SCRN MAMM (CAD)W/SARA BILAT DATE: 07/22/2025 CLINICAL HISTORY: F, Age 74 y/o , SCREENING TECHNIQUE: Procedure Code: [id number] Modality: MG Procedure: SCRN MAMM (CAD)W/SARA BILAT COMPARISON: Prior exam(s) were compared FINDINGS: TISSUE DENSITY: The breasts are heterogeneously dense, which may obscure small masses. Bilateral Breast Mammographic Findings: No significant masses, calcifications or other abnormalities are identified. BI/SCRN MAMM (CAD)W/SARA BILAT IMPRESSION: No mammographic evidence of malignancy. OVERALL FINAL ASSESSMENT BI-RADS 1: NEGATIVE. RECOMMENDATION: Routine annual follow-up in 1 Year Additional Recommendation none A letter with findings and recommendations will be mailed to the patient. Reading Location: [id number]
== END | disposition home or self-care (01) ==
LOC: OPBI 13:40
PROVIDERS: PCP Family Medicine; Referring Provider Nurse Practitioner Family; Visit Provider Nurse Practitioner Family
DX: Z12.31 Encounter for screening mammogram for malignant neoplasm of breast (principal)
CPT/HCPCS: 77063; 77067